=== PATIENT | male | born 1985 ===

== ENCOUNTER 2017-03-15 09:43 | Inpatient (IN) | payer OTHER, SELFPAY ==
[2017-03-15 11:13] LABS: POTASSIUM 4.6 mmol/L (3.6-5.2)
[2017-03-15 11:14] LABS: BASO # 0.1 K/uL (0.0-0.2); BASO % 0.5 % (0.0-2.0); HEMATOCRIT 38.7 % (35.0-51.0); LYMPH # 3.5 K/uL (1.0-4.3); LYMPH % 21.7 % (20.0-40.0); MEAN CELL VOLUME 89.2 fL (80.0-94.0); MEAN CORPUSCULAR HEMOGLOBIN 29.5 pg (27.0-31.0); MEAN CORPUSCULAR HGB CONC 33.1 g/dL (33.0-37.0); MEAN PLATELET VOLUME 11.7 fL (7.2-11.7); MONO # 0.6 K/uL (0.0-0.8); MONO % 3.9 % (0.0-10.0); NRBC % 0.1 % (0.0-2.0); RED CELL DISTRIBUTION WIDTH 15.7 % (11.5-14.5)
[2017-03-15 11:15] LABS: ALB/GLOB RATIO 1.4 (1.0-2.1); BILIRUBIN,TOTAL 0.9 mg/dL (0.2-1.3); TOTAL PROTEIN 7.5 g/dL (6.3-8.3)
[2017-03-15 11:16] LABS: CALCIUM 9.6 mg/dl (8.6-10.4)
[2017-03-15 11:27] LABS: TROPONIN I 0.017 ng/mL (0.00-0.120)
--- NOTE | 2017-03-15 12:22 | CT ---
PROCEDURE: CT HEAD WITHOUT CONTRAST. HISTORY: R/O Bleed COMPARISON: Noncontrast head CT performed 10/04/16 TECHNIQUE: Axial computed tomography images were obtained through the head/brain without intravenous contrast. Radiation dose: Total exam DLP = 971.69 mGy-cm. This CT exam was performed using one or more of the following dose reduction techniques: Automated exposure control, adjustment of the mA and/or kV according to patient size, and/or use of iterative reconstruction technique. FINDINGS: Mild streak artifact obscures evaluation of the skullbase. HEMORRHAGE: No intracranial hemorrhage. BRAIN: Generalized atrophy. No mass effect or edema. Nonspecific white matter hypodensities noted within the right parietal lobe. Please note that MRI with diffusion imaging is more sensitive in the detection of acute ischemic event. VENTRICLES: No hydrocephalus. CALVARIUM: Unremarkable. PARANASAL SINUSES: Unremarkable as visualized. No significant inflammatory changes. MASTOID AIR CELLS: Unremarkable as visualized. No inflammatory changes. OTHER FINDINGS: None. IMPRESSION: Generalized atrophy. Nonspecific white matter hypodensities re-identified within the right parietal lobe.
[2017-03-15] MEDS ORDERED: Labetalol 25mg/5ml Syringe IVP STA (13:33)
[2017-03-15] MEDS ORDERED: Labetalol 25mg/5ml Syringe ONE (13:37)
[2017-03-15] MEDS ORDERED: Nitroglycerin 50mg in D5W 50 MG/250 ML BOTTLE IV ONE (13:58)
--- NOTE | 2017-03-15 13:58 | C.PDOC ---
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 Patient also has a hearing impediment. Patient is cared for in the clinic and by Dr. Benites for hematology. Patient has thrombocytopenia and refractory hypertension. He states he has a severe headache, rating it as 10/10. Patient admits he is intermittently compliant with his medications. Patient is a poor historian. He has been admitted to the ICU previously. He had a kidney biopsy and hemorrhage into the kidney. He has renal insufficiency and is pending hemodialysis. Patient denies neck pain, chest pain, shortness of breath, diarrhea, fever, chills, or abdominal pain. Time Seen by Provider: 03/15/17 10:39 Chief Complaint (Nursing): Abdominal Pain History Per: Patient History/Exam Limitations: no limitations Onset/Duration Of Symptoms: Days (last night) Current Symptoms Are (Timing): Still Present Severity: Severe Pain Scale Rating Of: 10 Quality: "Pain" Associated Symptoms: Blurred Vision, Nausea, Vomiting Recent travel outside of the [place]: No Additional History Per: Prior Records Past Medical History Reviewed: Historical Data, Nursing Documentation, Vital Signs Vital Signs: Last Vital Signs Temp 98 F 03/15/17 09:56 Pulse 73 03/15/17 13:44 Resp 20 03/15/17 13:44 BP 175/109 H 03/15/17 13:44 Pulse Ox 100 03/15/17 14:33 - Medical History PMH: HTN - [facility] Procedures INJECT/INFUSE NEC (12/01/14) Family History: States: Unknown Family Hx - Social History Hx Alcohol Use: No Hx Substance Use: No - Immunization History Hx Tetanus Toxoid Vaccination: No Hx Influenza Vaccination: No Hx Pneumococcal Vaccination: No Review Of Systems Except As Marked, All Systems Reviewed And Found Negative. Constitutional: Negative for: Fever, Chills Eyes: Positive for: Vision Change (blurry) Cardiovascular: Negative for: Chest Pain Gastrointestinal: Positive for: Nausea, Vomiting. Negative for: Abdominal Pain , Diarrhea Musculoskeletal: Negative for: Neck Pain Neurological: Positive for: Headache Physical Exam - Physical Exam Appears: Chronically Ill, Other (bloated) Skin: Other (flushed ) Head: Normacephalic Eye(s): bilateral: Other (decreasing vision, conjunctival injection) Ear(s): Left: Other (hearing aid) Nose: Normal Tongue: Normal Appearing Lips: Normal Appearing Gingiva: Bleeding Throat: Normal Neck: Normal ROM, Supple Chest: Symmetrical Cardiovascular: Rhythm Regular Respiratory: Normal Breath Sounds, No Accessory Muscle Use, No Rales, No Rhonchi , No Wheezing Gastrointestinal/Abdominal: Soft, No Tenderness, No Guarding, No Rebound Back: Normal Inspection, No CVA Tenderness Extremity: Normal ROM Neurological/Psych: Oriented x3 ED Course And Treatment - Laboratory Results Result Diagrams: 03/15/17 10:58 03/15/17 10:58 ECG: Interpreted By Me, Viewed By Me ECG Rhythm: Sinus Rhythm ECG Interpretation: Normal Interpretation Of ECG: No ST elevations or depressions Rate From EC (bpm) O2 Sat by Pulse Oximetry: 100 (room air) Pulse Ox Interpretation: Normal - CT Scan/US Head CT Other Rad Studies (CT/US): Read By Radiologist (Dr. Martinez, Estefany Cuellar MD), Radiology Report Reviewed CT/US Interpretation: PROCEDURE: CT HEAD WITHOUT CONTRAST. HISTORY: R/O Bleed. COMPARISON: Noncontrast head CT performed 10/04/16. TECHNIQUE: Axial computed tomography images were obtained through the head/brain without intravenous contrast. Radiation dose: Total exam DLP = 971.69 mGy-cm. This CT exam was performed using one or more of the following dose reduction techniques: Automated exposure control, adjustment of the mA and/or kV according to patient size, and/or use of iterative reconstruction technique. FINDINGS: Mild streak artifact obscures evaluation of the skullbase. HEMORRHAGE: No intracranial hemorrhage. BRAIN: Generalized atrophy. No mass effect or edema. Nonspecific white matter hypodensities noted within the right parietal lobe. Please note that MRI with diffusion imaging is more sensitive in the detection of acute ischemic event. VENTRICLES: No hydrocephalus. CALVARIUM: Unremarkable. PARANASAL SINUSES: Unremarkable as visualized. No significant inflammatory changes. MASTOID AIR CELLS: Unremarkable as visualized. No inflammatory changes. OTHER FINDINGS: None. IMPRESSION: Generalized atrophy. Nonspecific white matter hypodensities re-identified within the right parietal lobe. Progress Note: Plan: -Head CT. -EKG. -Labs. -Hydralazine, Norvasc, Trandate , Zofran. Platelet count is 10. Patient has hypertension urgency. Case discussed with Hospitalist and ICU for patient admission. Disposition Discussed With Dr.: Pablo Venegas Counseled Patient/Family Regarding: Studies Performed, Diagnosis - Disposition Disposition: HOSPITALIZED Disposition Time: 14:00 Condition: CRITICAL - Clinical Impression Clinical Impression: Hypertensive emergency, Other primary thrombocytopenia, Hemolytic uremic syndrome - Scribe Statement The provider has reviewed the documentation as recorded by the Bostonibwil Valle Provider Attestation: All medical record entries made by the [place]ibwil were at my direction and personally dictated by me. I have reviewed the chart and agree that the record accurately reflects my personal performance of the history, physical exam, medical decision making, and the department course for this patient. I have also personally directed, reviewed, and agree with the discharge instructions and disposition. Decision To Admit - Pt Status Changed To: Hospital Disposition Of: Inpatient - Admit Certification Admit to Inpatient:: After my assessment, the patient will require hospitalization for at least two midnights. This is because of the severity of symptoms shown, intensity of services needed, and/or the medical risk in this patient being treated as an outpatient. - InPatient: Physician Admission Certification: I certify that this patient requires 2 or more midnights of care for the following reason:: critical patient - . Bed Request Type: ICU Patient Diagnosis: Hypertensive emergency, Other primary thrombocytopenia, Hemolytic uremic syndrome
[2017-03-15] MEDS ORDERED: MethylPREDNISolone 40 mg Vial IVP SCH ×2 (14:00→20:00)
--- NOTE | 2017-03-15 14:10 | CP.PCM.HP ---
History of Present Illness - History of Present Illness History of Present Illness: This is a 31 year old male who is well known to the hospitalist service from a previous admission on 10/02/2016 and then discharged on 11/01/2016. During that time he was admitted after being found on the ground by co-wokers. He was confused, reporting difficulty seeing with difficulty seeing as well as easy nose and mouth bleeding. At that time his platelet count was found to be only 10 and he was in and out of the ICU here at [facility]. 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 C-anca was negative. HIV, MAGDI, rheumatoid panel and complement studies were also negative. Patient was transfused multiple times with platelets. Patient's platelets went as low as 5 over hospital stay. No improvement with steroids. Patient was started on Ecluzimab (Soloris) on 10/26 per clinical trial and has been on this medication since then - it is a once a week medication given under the approval of the hospital due to the cost. He has been following up with the [facility] as well as with Hematology Oncology Further more the patient had ongoing worsening renal function particularly after 10/16 and a renal biopsy was done after the patient had multiple platelet transfusions. He did well the following few days however after he had a precipitous drop in the platelet count again he developed abdominal pain and had a large retroperitoneal hemorrhage around the left kidney. Because of the heavy bleeding requiring many PRBCs ultimately he had to have a left renal angiogram with embolization of left kidney. There was discussion of giving the patient HD due to the worsening renal function however because of the chronically low platelet counts this was deferred. 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 Today 03/15 he returns with the CC of difficulty seeing, headache as well as bleeding gums. He is not alter mental status as he was from before. However his blood pressure is very elevated with a systolic of 190 and having headache and blurry vision. He has already been given several rounds of hydralazine IV 10mg as well as norasvc 10 and labatelol 20mg IVP x 1. He again has a plateletcount of 10. He has minimal bleeding in his mouth. He does not have any rash or petechia. We discussed about transferring the patient to another hospital since his situation has not improved even with the Ecluzimab and his renal function is worsening with a creatine of 5.0. After my discussion with multiple physicians we agreed to admit here. I am going to give large doses of solumedrol as well as give DDAVP now and also platelets now. He denied chest pain, denied palpitations, denied abdominal or flank pain (last time had a large renal bleed and severe pain) He reported + blurry vision, + headache, + blood in mouth, + easy bruising + blood in urine + intermitent fevers. He doesn't know if he has blood in stools or not. Medications: Soliris transfusion once a week Coreg 25mg by mouth twice a day Norvasc 10mg by mouth once a day Phoslo 1334mg by mouth three times a day with food Colace 100mg by mouth twice a day Pepcid 20mg by mouth once a day Hydralazine 50mg by mouth every 6 hours Surgical: Present on Admission - Present on Admission Any Indicators Present on Admission: Yes History of DVT/PE: No History of Uncontrolled Diabetes: No Urinary Catheter: No Decubitus Ulcer Present: No Review of Systems - Constitutional Constitutional: Fatigue, Headache, Weakness - EENT Eyes: Blurred Vision, Change in Vision Ears: Decreased Hearing - Respiratory Respiratory: Cough. absent: Dyspnea, Hemoptysis - Gastrointestinal Gastrointestinal: absent: Abdominal Pain, Belching, Bloating - Genitourinary Genitourinary: Hematuria - Musculoskeletal Musculoskeletal: As Per HPI, Muscle Weakness - Integumentary Integumentary: Bleeding Lesions - Neurological Neurological: Abnormal Hearing, Headaches - Psychiatric Psychiatric: Hopelessness - Hematologic/Lymphatic Hematologic: As Per HPI, Easy Bleeding, Easy Bruising Past Patient History - Infectious Disease Hx of Infectious Diseases: None - Past Social History Smoking Status: Never Smoked - CARDIAC Hx Hypertension: Yes - HEENT Other/Comment: HEARING IMPAIRED - RENAL Other/Comment: renal disease - HEMATOLOGICAL/ONCOLOGICAL Other/Comment: Thrombocytopenia - PSYCHIATRIC Hx Substance Use: No - SURGICAL HISTORY Hx Surgeries: Yes Hx Splenectomy: Yes (AT 4 YEARS OF AGE) - ANESTHESIA Hx Anesthesia: Yes Hx Anesthesia Reactions: No Meds Allergies/Adverse Reactions: Allergies Allergy/AdvReac Type Severity Reaction Status Date / Time No Known Allergies Allergy Verified 12/01/14 07:25 Physical Exam - Constitutional Appears: Chronically Ill - Head Exam Additional comments: Bleeding in gums, he also looks very depressed, tired, exahusted - Eye Exam Eye Exam: Normal appearance - ENT Exam ENT Exam: Mucous Membranes Moist - Neck Exam Neck exam: Positive for: Normal Inspection - Respiratory Exam Respiratory Exam: Decreased Breath Sounds, Clear to Auscultation Bilateral - Cardiovascular Exam Cardiovascular Exam: REGULAR RHYTHM - GI/Abdominal Exam GI & Abdominal Exam: Normal Bowel Sounds, Soft. absent: Diminished Bowel Sounds , Distended, Firm, Guarding - Exam Exam: NORMAL INSPECTION - Back Exam Back exam: NORMAL INSPECTION. absent: CVA tenderness (L), CVA tenderness (R), paraspinal tenderness, rash noted - Neurological Exam Neurological exam: Alert, CN II-XII Intact, Oriented x3 - Psychiatric Exam Psychiatric exam: Anxious, Depressed - Skin Skin Exam: Normal Color, Warm Results - Vital Signs Recent Vital Signs: Last Vital Signs Temp 98 F 03/15/17 09:56 Pulse 73 03/15/17 13:44 Resp 20 03/15/17 13:44 BP 175/109 H 03/15/17 13:44 Pulse Ox 100 03/15/17 14:02 - Labs Result Diagrams: 03/15/17 10:58 03/15/17 10:58 Labs: Laboratory Results - last 24 hr 03/15/17 03/15/17 10:58 10:58 WBC 16.0 H RBC 4.34 L Hgb 12.8 Hct 38.7 MCV 89.2 MCH 29.5 MCHC 33.1 RDW 15.7 H Plt Count 10 L* MPV 11.7 Neut % (Auto) 73.9 Lymph % (Auto) 21.7 [place] % (Auto) 3.9 Eos % (Auto) 0.0 Baso % (Auto) 0.5 Neut # 11.8 H Lymph # 3.5 [place] # 0.6 Eos # 0.0 Baso # 0.1 Differential Comment Sodium 143 Potassium 4.6 Chloride 109 H Carbon Dioxide 18 L Anion Gap 21 H BUN 49 H Creatinine 5.0 H Est GFR ( Amer) 16 Est GFR (Non-Af Amer) 14 Random Glucose 118 H Calcium 9.6 Total Bilirubin 0.9 AST 25 ALT 39 Alkaline Phosphatase 146 H Troponin I 0.0170 Total Protein 7.5 Albumin 4.4 Globulin 3.1 Albumin/Globulin Ratio 1.4 Lipase 160 Assessment & Plan - Assessment and Plan (Free Text) Assessment: Assessment: Atypical HUS or Alport Syndrome 5/2: As mentioned before he gets weekly infusions of Eculizumab (soliris) per discussion with ER and pharmacy that medication is already at pharmacy as he is due to get this medication tommorow. Per my discussion with hematology there is some question with reguards to the resposiveness of the medication as his platelet count is still severely low - he has easy bleeding. Will give solumedrol IVP 125 x1 now and then 40 TID. Also DDAVP x 1 now. Because platelets are low transfusing 2 now but it will take several hours before it can come. As per Dr. 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 Pt consented to atypical HUS treatment with eculizumab; medication assistance paperwork faxed.Peripheral smear shows schistocytes, LDH was elevated, and pt presented with HTN emergency Immune studies: HIV, MAGDI, Rheumatoid panel, complement studies negative C-anca negative HTN Urgency 5/2: Very elevated in the ER and recived several hydralazine and labelatol and then noravc. Systolics are 190s and then decreased to 170s. CT scan of the head was negative. Monitor in ICU, might need a continuous drip Norvasc 10 mg po qd Coreg 25 mg po bid Hydralazine 25 mg po TID History of renal hematoa after biopsy 52: He tells us he does not have abdominal pain and no pain on exam of abdomen or flank area Platelet count is low - so if he does have pain will get a stat CT. As mentioned before he had an embolization. History of Pleural Effusion: 52: Currently NOT short of breath, however previous admision was an issue. Will check Nephrotic Kidney Disease 5/2: Renal function is worsening. Creatine is up to 5. It would be difficult to give HD due to such a low plaetelcount. Transfusing right now. 24 hour urine protein 37325, very elevated Floor Worker, Dr. Villasenor, consulted. Help appreciated. 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
[2017-03-15] MEDS ORDERED: Piperacillin/Tazobact 3.375 gm 0 ML IVPB ONE (14:20)
[2017-03-15] MEDS ORDERED: Piperacill/Tazo 2.25gm in Dex 2.25 GM/50 ML BAG IVPB SCH (15:00)
--- NOTE | 2017-03-15 16:06 | CP.PCM.CON ---
Addendum entered and electronically signed by Marcel Nelson DO 03/15/17 18:22: Per Dr. Benites, pt can receive Solaris tomorrow, which is his scheduled day for transfusion anyway. Original Note: <Marcel Nelson - Last Filed: 03/15/17 18:20> History of Present Illness - History of Present Illness History of Present Illness: ICU consult note for patrol officer, Dr. 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 He reports headache began yesterday, and took 2 advil with no relief. He states the pain is 10/10, located at the back of his head, and is bilateral, that comes and "sits under his eyes." Pt reports headache has worsened 'since midnight' and he has vomited , non-bilous, non-bloody emesis, multiple times. Pt admits taking Norvasc, Coreg , and Hydralazine as home medications. Pt was hypertensive on presentation to the ED, with SBP in the 190s, and was given Hydralazine IV 10mg, Norasvc 10mg, and Labatelol 20mg IVP x 1. Pt also reports blood in his mouth this AM, after lightly brushing his teeth. He denies hematemesis, hematochezia, but admits one episode of hematuria this AM. Platelets are 10 on arrival. Creatinine found to be 5. He has renal insufficiency and is pending hemodialysis. Patient denies neck pain, chest pain, shortness of breath, diarrhea, fever, chills, or abdominal pain. (adapted from hospitalist Dr. Lillian cobos, who knew pt well from prior admission) Pt had previous admission from 10/02/2016 to 11/01/2016, where pt was discovered to be extremely thrombocytopenic (platelets of < 10k). On 10/02 was admitted after being found on the ground by co-workers. He was confused, reporting difficulty seeing with difficulty seeing as well as easy nose and mouth bleeding and was admitted to ICU. 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 Patient was transfused multiple times with platelets, and started on Ecluzimab (Soloris), which helped improved his platelet count. He been on Solaris since his admission and has followed up in the clinic as well as with child welfare consultant, Dr. Benites. During his course, pts renal function worsened particularly and renal biopsy was performed. Biopsy suggests HUS vs Alport disease. Pt had a precipitous drop in the platelet count again and developed abdominal pain. CT showed large retroperitoneal hemorrhage around the left kidney. Because of the heavy bleeding, requiring many PRBCs, ultimately he had to have a left renal angiogram with embolization of left kidney. There was discussion of giving the patient HD due to the worsening renal function however because of the chronically low platelet counts this was deferred. PMD: Franky ([facility]) PMHx: see above Meds: Soliris transfusion once a week, Coreg 25mg by mouth twice a day, Norvasc 10mg by mouth once a day, Phoslo 1334mg by mouth three times a day with food, Colace 100mg by mouth twice a day, Pepcid 20mg by mouth once a day, Hydralazine 50mg by mouth every 6 hours PSHx: splenectomy (age 4) Social: Smokes tobacco 1 pack over three days. Drinks alcohol socially. Denies drug use. 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 Review of Systems - Constitutional Constitutional: Fatigue, Lethargy. absent: Chills, Fever, Weight Gain, Weight Loss - EENT Eyes: Blurred Vision Ears: absent: Ear Discharge Nose/Mouth/Throat: absent: Nasal Congestion, Sore Throat - Cardiovascular Cardiovascular: absent: Chest Pain, Dyspnea, Palpitations - Respiratory Respiratory: Cough. absent: Dyspnea, Hemoptysis, Dyspnea on Exertion - Gastrointestinal Gastrointestinal: Nausea, Vomiting. absent: Abdominal Pain - Genitourinary Genitourinary: absent: Dysuria, Hematuria - Musculoskeletal Musculoskeletal: Muscle Weakness - Neurological Neurological: Abnormal Hearing, Headaches - Psychiatric Psychiatric: Depression - Hematologic/Lymphatic Hematologic: Easy Bleeding, Easy Bruising Past Patient History - Infectious Disease Hx of Infectious Diseases: None - Past Social History Smoking Status: Never Smoked - CARDIAC Hx Hypertension: Yes - HEENT Other/Comment: HEARING IMPAIRED - RENAL Other/Comment: renal disease - HEMATOLOGICAL/ONCOLOGICAL Other/Comment: Thrombocytopenia - PSYCHIATRIC Hx Substance Use: No - SURGICAL HISTORY Hx Surgeries: Yes Hx Splenectomy: Yes (AT 4 YEARS OF AGE) - ANESTHESIA Hx Anesthesia: Yes Hx Anesthesia Reactions: No Meds Allergies/Adverse Reactions: Allergies Allergy/AdvReac Type Severity Reaction Status Date / Time No Known Allergies Allergy Unknown none Verified 03/15/17 17:01 - Medications Medications: Current Medications Carvedilol (Coreg) 12.5 mg PO BID [facility] Famotidine (Pepcid) 20 mg PO BID [facility] Hydralazine HCl (Apresoline) 25 mg PO TID [facility] Nitroglycerin/Dextrose (Nitroglycerin 50 Mg/250 Ml D5w) 50 mg in 250 mls @ 1.5 mls/hr IV .Q24H ONE PRN Reason: 5 MCG/MIN Stop: 03/16/17 13:57 Last Admin: 03/15/17 14:43 Dose: 1.5 mls/hr Piperacillin Sod/Tazobactam Sod (Zosyn 2.25 Gm Iv Premix) 2.25 gm in 50 mls @ 100 mls/hr IVPB Q8H [facility] Last Admin: 03/15/17 15:26 Dose: 100 mls/hr Methylprednisolone (Solu-Medrol) 40 mg IVP Q6H [facility] Physical Exam - Constitutional Appears: No Acute Distress, Chronically Ill - Head Exam Head Exam: ATRAUMATIC, NORMAL INSPECTION, NORMOCEPHALIC - Eye Exam Eye Exam: EOMI Pupil Exam: PERRL - ENT Exam ENT Exam: Mucous Membranes Moist Additional comments: bleeding in gums - Neck Exam Neck exam: Positive for: Normal Inspection - Respiratory Exam Respiratory Exam: Decreased Breath Sounds, Clear to Auscultation Bilateral - Cardiovascular Exam Cardiovascular Exam: REGULAR RHYTHM, +S1, +S2 - GI/Abdominal Exam GI & Abdominal Exam: Normal Bowel Sounds, Soft. absent: Tenderness Results - Vital Signs Recent Vital Signs: Last Vital Signs Temp 97.5 F L 03/15/17 15:27 Pulse 102 H 03/15/17 15:27 Resp 15 03/15/17 15:27 BP 177/115 H 03/15/17 15:40 Pulse Ox 99 03/15/17 15:27 - Labs Result Diagrams: 03/15/17 10:58 03/15/17 10:58 Labs: Laboratory Results - last 24 hr 03/15/17 14:11 Blood Type O POSITIVE Antibody Screen Negative Assessment & Plan - Assessment and Plan (Free Text) Assessment: 31 M with PMHx of Alport vs HUS, HTN, unresponsive thrombocytopenia, presenting with headache, HTN emergency, thrombocytopenia. Plan: Pt status: Admit to ICU Neuro: AAOx3 CT Head (03/15/17): Generalized atrophy. Nonspecific white matter hypodensities within the right parietal lobe. (see full report) CV: HTN Emergency SBP 230 in ED, now well controlled - Nitro drip - Coreg 12.5 mg PO BID - Apresoline 25mg PO TID /Renal: Atypical HUS Platelet count 10k today - 2 units of platelets transfused Received Eculizumab (solaris) 3 days ago Given Solumedrol 125mg once in ED, 60mg IV TID DDAVP x [address] Dr[address] 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 Pt consented to atypical HUS treatment with eculizumab - No clinical indication for steroids - H/H currently stable - from previous admission: Bone Marrow biopsy no evidence of myelodysplastic or myeloproliferative syndrome. Peripheral smear shows schistocytes. Immune studies : HIV, MAGDI, Rheumatoid panel, complement studies negative. C-anca negative. Hx of Abnormal renal biopsy Left renal Biopsy (10/19): reports consistent with atypical HUS IR, Dr. Dorado, performed left renal angiogram with embolization of left kidney Nephrotic Kidney Disease On admission, Bun/Cr: 49/5 Remediation Project Engineer, Dr. iVllasenor, consulted. Help appreciated. - f/u reccs Pulm: O2 sat: 99% on rm Air Breathing without difficulty GI: Nausea/Vomiting -non-bilious, non-bloody Zofran 4mg IV Q6H PRN Alk phos elevated, monitor Hem/Onc: Dr. 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 Pt consented to atypical HUS treatment with eculizumab. - H/H currently stable - from previous admission: Bone Marrow biopsy no evidence of myelodysplastic or myeloproliferative syndrome. Peripheral smear shows schistocytes. Immune studies : HIV, MAGDI, Rheumatoid panel, complement studies negative. C-anca negative. Prophylactic Measures: Pepcid 20 mg po bid Anticoagulation contraindicated due to thrombocytopenia SCDs <Theo,Pablo - Last Filed: 03/15/17 19:16> Meds - Medications Medications: Current Medications Carvedilol (Coreg) 12.5 mg PO BID [facility] Last Admin: 03/15/17 17:30 Dose: 12.5 mg Famotidine (Pepcid) 20 mg PO BID [facility] Last Admin: 03/15/17 19:02 Dose: 20 mg Hydralazine HCl (Apresoline) 25 mg PO TID [facility] Last Admin: 03/15/17 17:30 Dose: 25 mg Nitroglycerin/Dextrose (Nitroglycerin 50 Mg/250 Ml D5w) 50 mg in 250 mls @ 1.5 mls/hr IV .Q24H ONE; 5 MCG/MIN PRN Reason: Protocol Stop: 03/16/17 13:57 Last Titration: 03/15/17 19:00 Dose: 60 mcg/min, 18 mls/hr Methylprednisolone (Solu-Medrol) 60 mg IVP Q6 [facility] Ondansetron HCl (Zofran Inj) 4 mg IVP Q6H PRN PRN Reason: Nausea/Vomiting Last Admin: 03/15/17 17:27 Dose: 4 mg Results - Vital Signs Recent Vital Signs: Last Vital Signs Temp 97.5 F L 03/15/17 15:45 Pulse 96 H 03/15/17 17:00 Resp 16 03/15/17 17:00 BP 157/103 H 03/15/17 17:30 Pulse Ox 98 03/15/17 17:00 - Labs Result Diagrams: 03/15/17 10:58 03/15/17 10:58 Labs: Laboratory Results - last 24 hr 03/15/17 14:11 Blood Type O POSITIVE Antibody Screen Negative Attending/Attestation - Attestation I have personally seen and examined this patient.: Yes I have fully participated in the care of the patient.: Yes I have reviewed all pertinent clinical information: Yes Notes (Text): 03/15/17 19:16 Patient is severe thrombocytopenia hypertension. Admitted with a uncontrolled hypertension on nitroglycerin drip. Plan discussed
[2017-03-15] MEDS: Nitroglycerin 50mg in D5W 50 MG/250 ML BOTTLE IV ONE (17:00)
--- NOTE | 2017-03-15 19:41 | CP.PCM.CON ---
History of Present Illness - History of Present Illness History of Present Illness: 31 year old male with a history of atypical HUS on eculizumab since 10/2016, presenting with headache, found to have hypertensive urgency. The patient has had an extensive work up pertaining to his thrombocytopenia, anemia, and renal failure. 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 His kidney biopsy was complicated by hemorrhage and need for IR embolization. A bone marrow biopsy revealed normocellular marrow with megakaryocytic hyperplasia consistent with peripheral destruction. Plasma exchange was performed at the time with no improvement in thrombocytopenia or microangiopathic hemolysis. [id number] level returned normal and the patient was felt to have atypical HUS. He was started on eculizumab with variability in his renal function from a cr of 3-5. His platelet count remained severely low and has ranged around 10,000. Most recently he reports to increasing headache which he has been taking Advil for. He does admit to intermittent gum bleeding but no other abnormal bleeding or bruising. Past medical history: ?atypical HUS Past surgical history: None Family history: Denies known hematologic and oncologic problems Social history: Denies tobacco, alcohol, and illicit drug use. Allergies: NKA Review of systems: All remaining review of systems including HEENT, cardiovascular, respiratory, gastrointestinal, genitourinary, musculoskeletal, dermatologic, neurologic, and psychiatric are negative unless mentioned in the HPI. Past Patient History - Infectious Disease Hx of Infectious Diseases: None - Past Social History Smoking Status: Never Smoked - CARDIAC Hx Hypertension: Yes - HEENT Other/Comment: HEARING IMPAIRED - RENAL Other/Comment: renal disease - HEMATOLOGICAL/ONCOLOGICAL Other/Comment: Thrombocytopenia - MUSCULOSKELETAL/RHEUMATOLOGICAL Hx Falls: No - PSYCHIATRIC Hx Substance Use: No - SURGICAL HISTORY Hx Surgeries: Yes Hx Splenectomy: Yes (AT 4 YEARS OF AGE) - ANESTHESIA Hx Anesthesia: Yes Hx Anesthesia Reactions: No Meds Allergies/Adverse Reactions: Allergies Allergy/AdvReac Type Severity Reaction Status Date / Time No Known Allergies Allergy Unknown none Verified 03/15/17 17:01 - Medications Medications: Current Medications Carvedilol (Coreg) 12.5 mg PO BID [facility] Last Admin: 03/15/17 17:30 Dose: 12.5 mg Famotidine (Pepcid) 20 mg PO BID [facility] Last Admin: 03/15/17 19:02 Dose: 20 mg Hydralazine HCl (Apresoline) 25 mg PO TID [facility] Last Admin: 03/15/17 17:30 Dose: 25 mg Nitroglycerin/Dextrose (Nitroglycerin 50 Mg/250 Ml D5w) 50 mg in 250 mls @ 1.5 mls/hr IV .Q24H ONE; 5 MCG/MIN PRN Reason: Protocol Stop: 03/16/17 13:57 Last Titration: 03/15/17 19:00 Dose: 60 mcg/min, 18 mls/hr Methylprednisolone (Solu-Medrol) 60 mg IVP Q6 [facility] Ondansetron HCl (Zofran Inj) 4 mg IVP Q6H PRN PRN Reason: Nausea/Vomiting Last Admin: 03/15/17 17:27 Dose: 4 mg Physical Exam - Head Exam Head Exam: ATRAUMATIC - Eye Exam Eye Exam: Normal appearance - ENT Exam ENT Exam: Mucous Membranes Dry - Respiratory Exam Respiratory Exam: NORMAL BREATHING PATTERN - Cardiovascular Exam Cardiovascular Exam: +S1, +S2 - GI/Abdominal Exam GI & Abdominal Exam: Normal Bowel Sounds - Extremities Exam Extremities exam: Positive for: normal inspection - Neurological Exam Neurological exam: Oriented x3 - Psychiatric Exam Psychiatric exam: Normal Affect, Normal Mood - Skin Skin Exam: Warm Results - Vital Signs Recent Vital Signs: Last Vital Signs Temp 97.5 F L 03/15/17 15:45 Pulse 93 H 03/15/17 19:00 Resp 16 03/15/17 19:00 BP 175/105 H 03/15/17 19:00 Pulse Ox 97 03/15/17 19:00 - Labs Result Diagrams: 03/15/17 10:58 03/15/17 10:58 Labs: Laboratory Results - last 24 hr 03/15/17 14:11 Blood Type O POSITIVE Antibody Screen Negative Assessment & Plan (1) Hemolytic uremic syndrome Assessment and Plan: the patient has been treated with eculizumab without significant improvement in his platelet count or renal function I would like to send further genetic testing for atypical HUS for further evaluation given then lack of response; I will need to reach out to the company to discuss if they allow compassionate testing. other possibilities would include Alports syndrome and MYH9 related diseases; referral to a tertiary center with a counter clerk tractor parts would be ideal with genetic testing At this point, I agree with transfusion support of platelets and DDAVP He has platelet dysfunction from uremia and recent NSAID use. Thank you for this interesting consult. Status: Acute
[2017-03-15] MEDS: MethylPREDNISolone 40 mg Vial IVP SCH (20:00)
[2017-03-16] MEDS: MethylPREDNISolone 40 mg Vial IVP SCH ×5 (00:48→23:34)
[2017-03-16] MEDS: Nitroglycerin 50mg in D5W 50 MG/250 ML BOTTLE IV ONE (06:33)
[2017-03-16 06:48] LABS: RETIC% 1.3 % (0.5-1.5)
[2017-03-16 06:51] LABS: ALB/GLOB RATIO 1.4 (1.0-2.1); BILIRUBIN,TOTAL 0.8 mg/dL (0.2-1.3); PHOSPHOROUS 3.8 mg/dL (2.5-4.5); TOTAL PROTEIN 6.9 g/dL (6.3-8.3)
[2017-03-16 06:52] LABS: CALCIUM 9.3 mg/dl (8.6-10.4); MAGNESIUM 2.4 mg/dL (1.6-2.3)
[2017-03-16 07:00] LABS: INR 1.2
[2017-03-16 07:12] LABS: BASO % 0.2 % (0.0-2.0); HEMATOCRIT 34.1 % (35.0-51.0); LYMPH % 19.3 % (20.0-40.0); MEAN CELL VOLUME 90.6 fL (80.0-94.0); MEAN CORPUSCULAR HEMOGLOBIN 29.4 pg (27.0-31.0); MEAN CORPUSCULAR HGB CONC 32.4 g/dL (33.0-37.0); MEAN PLATELET VOLUME 8.1 fL (7.2-11.7); MONO # 0.5 K/uL (0.0-0.8); MONO % 3.4 % (0.0-10.0); NRBC % 0.1 % (0.0-2.0); RED CELL DISTRIBUTION WIDTH 15.5 % (11.5-14.5); WHITE BLOOD COUNT 15.3 K/uL (4.8-10.8)
[2017-03-16 07:26] LABS: RBC URINE 11 /hpf (0-3); URINE BACTERIA RARE (<OCC); URINE BILIRUBIN NEGATIVE (NEGATIVE); URINE BLOOD 1+ (NEGATIVE); URINE COLOR Yellow (YELLOW); URINE GLUCOSE (UA) NORMAL (Normal); URINE KETONE NEGATIVE (NEGATIVE); URINE LEUKOCYTE ESTERASE NEG Leu/uL (Negative); URINE PROTEIN 3+ mg/dL (NEGATIVE); URINE UROBILINOGEN NORMAL mg/dL (0.2-1.0); WBC URINE 1 /hpf (0-5)
[2017-03-16 07:47] VITALS: BMI 26.5
[2017-03-16 07:58] LABS: FOLATE 11.9 ng/mL
--- NOTE | 2017-03-16 09:21 | CP.PCM.PN ---
Subjective - Date & Time of Evaluation Date of Evaluation: 03/16/17 Time of Evaluation: 09:00 - Subjective Subjective: Patient was seen and examined. He reports headache as well as blurry vision improved a lot - his BP is lower in the 150 to 160 systolic range on nitro ggt at this time. He says he feels better. Last night I gave him large doses of solumedrol as well as DDAVP and also platelets This morning I have to admit that I am surprised the platelet count markos - I need to point out that during the last admission even with platelet transfusions and steroids and also DDAVP his platelet count never responded. Creatine increased a little bit from yesterday. He says he is still urinating for the time being. Objective - Vital Signs/Intake and Output Vital Signs (last 24 hours): Temp Pulse Resp BP Pulse Ox 98 F 82 19 174/98 H 96 03/16/17 04:00 03/16/17 07:00 03/16/17 07:00 03/16/17 07:00 03/16/17 07:00 Intake and Output: 03/16/17 03/16/17 06:59 18:59 Intake Total 431.1 19.5 Output Total 1050 Balance -618.9 19.5 - Medications Medications: Current Medications Carvedilol (Coreg) 12.5 mg PO BID [facility] Last Admin: 03/15/17 17:30 Dose: 12.5 mg Famotidine (Pepcid) 20 mg PO BID [facility] Last Admin: 03/15/17 19:02 Dose: 20 mg Hydralazine HCl (Apresoline) 50 mg PO Q6H [facility] Last Admin: 03/16/17 02:15 Dose: 50 mg Nitroglycerin/Dextrose (Nitroglycerin 50 Mg/250 Ml D5w) 50 mg in 250 mls @ 1.5 mls/hr IV .Q24H ONE; 5 MCG/MIN PRN Reason: Protocol Stop: 03/16/17 13:57 Last Admin: 03/16/17 06:33 Dose: 65 mcg/min, 19.5 mls/hr Methylprednisolone (Solu-Medrol) 60 mg IVP Q6 [facility] Last Admin: 03/16/17 05:07 Dose: 60 mg Ondansetron HCl (Zofran Inj) 4 mg IVP Q6H PRN PRN Reason: Nausea/Vomiting Last Admin: 03/16/17 05:05 Dose: 4 mg - Labs Labs: 03/16/17 06:24 03/16/17 06:27 PT 13.0 SECONDS (9.7-12.2) H 03/16/17 06:24 INR 1.2 03/16/17 06:24 APTT 29 SECONDS (21-34) 03/16/17 06:24 Assessment and Plan - Assessment and Plan (Free Text) Assessment: Atypical HUS or Alport Syndrome 03/16: Today the platelet count increased. Continue with solumedrol and today due for Eculizumab. Continue to monitor. 03/15: As mentioned before he gets weekly infusions of Eculizumab (soliris) per discussion with ER and pharmacy that medication is already at pharmacy as he is due to get this medication tomorrow. Per my discussion with hematology there is some question with regards to the responsiveness of the medication as his platelet count is still severely low - he has easy bleeding. Will give solumedrol IVP 125 x1 now and then 40 TID. Also DDAVP x 1 now. Because platelets are low transfusing 2 now but it will take several hours before it can come. As per Dr. 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 Pt consented to atypical HUS treatment with eculizumab; medication assistance paperwork faxed.Peripheral smear shows schistocytes, LDH was elevated, and pt presented with HTN emergency Immune studies: HIV, MAGDI, Rheumatoid panel, complement studies negative C-anca negative HTN Urgency 03/16: Systolic BP lower today with nitro ggt, however ultimately he probably needs dialysis - however this will be difficult given his low platelets 2: Very elevated in the ER and recived several hydralazine and labelatol and then noravc. Systolics are 190s and then decreased to 170s. CT scan of the head was negative. Monitor in ICU, might need a continuous drip Norvasc 10 mg po qd Coreg 25 mg po bid Hydralazine 25 mg po TID History of renal hematoa after biopsy 3: No abdominal or flank pain today 52: He tells us he does not have abdominal pain and no pain on exam of abdomen or flank area Platelet count is low - so if he does have pain will get a stat CT. As mentioned before he had an embolization. History of Pleural Effusion: 03/15: Currently NOT short of breath, however previous admision was an issue. Will check Nephrotic Kidney Disease 03/15: Renal function is worsening. Creatine is up to 5. It would be difficult to give HD due to such a low plaetelcount. Transfusing right now. 24 hour urine protein [id number], very elevated Clothes Model, Dr. Villasenor, consulted. Help appreciated. 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
--- NOTE | 2017-03-16 10:37 | CP.CCUPN ---
Addendum entered and electronically signed by Marcel Nelson DO 03/16/17 16:42: Pt NPO after midnight for Permacath placement Addendum entered and electronically signed by Marcel Nelson DO 03/16/17 11:08: addition to /Renal plan: - consult Dr. Quach for permacath placement Original Note: <Marcel Nelson - Last Filed: 03/16/17 11:01> CCU Subjective - Physician Review Subjective (Free Text): 03/16/17 10:29 Pt seen and examined at bedside. Pt reports great improvement in headache and blurry vision overnight. Pt on nitro drip which has improved pressure control. After large doses of solumedrol, DDAVP, and two units of platelets, his platelet count increased to 47k. Pts creatinine is rising, 5.3 this AM, and will need dialysis in near future. Will consult general surgery for permacath placement. Pt c/o of n/v this AM, but denies headache, chest pain, abdominal pain, SOB. Critical Care Time Spent (in minutes): 45 CCU Objective - Vital Signs / Intake & Output Vital Signs (Last 4 hours): Vital Signs Pulse Resp BP Pulse Ox 03/16/17 10:02 160/106 H 03/16/17 07:00 82 19 174/98 H 96 03/16/17 06:33 83 18 168/101 H 97 Intake and Output (Last 8hrs): Intake & Output 03/15/17 03/16/17 03/16/17 22:59 06:59 14:59 Intake Total 704.2 173.4 19.5 Output Total 500 750 Balance 204.2 -576.6 19.5 Weight 177 lb 4.026 oz Intake: IV 64.5 19.2 Intake, IV Amount 189.7 154.2 19.5 Left Hand 50 Right Antecubital 89.7 154.2 19.5 Right Hand 50 Oral 450 Output: Urine 300 450 Urine, Voided 300 450 Emesis 200 300 - Physical Exam Head: Positive for: Atraumatic, Normocephalic Pupils: Positive for: PERRL Extroacular Muscles: Positive for: EOMI Conjunctiva: Positive for: Normal Ears: Positive for: Other (pt with hearing aid in left ear) Mouth: Positive for: Moist Mucous Membranes Respiratory/Chest: Positive for: Clear to Auscultation, Good Air Exchange. Negative for: Respiratory Distress, Accessory Muscle Use Cardiovascular: Positive for: Regular Rate and Rhythm, Normal S1, S2 Abdomen: Positive for: Normal Bowel Sounds. Negative for: Tenderness, Distention Neurological: Positive for: GCS=15, CN II-XII Intact, Speech Normal Skin: Positive for: Warm, Dry Psychiatric: Positive for: Alert, Oriented x 3 - Medications Active Medications: Active Medications Generic Name Dose Route Start Last Admin Trade Name Freq PRN Reason Stop Dose Admin Carvedilol 12.5 mg 03/15/17 18:00 03/16/17 10:02 Coreg PO 12.5 mg BID GUILLE Administration Famotidine 20 mg 03/15/17 18:00 03/16/17 10:02 Pepcid PO 20 mg BID GUILLE Administration Hydralazine HCl 50 mg 03/15/17 21:00 03/16/17 10:02 Apresoline PO 50 mg Q6H GUILLE Administration Nitroglycerin/Dextrose 50 mg in 250 mls @ 1.5 mls/hr 03/15/17 16:57 03/16/17 06:33 Nitroglycerin 50 Mg/250 Ml D5w IV 03/16/17 13:57 65 mcg/min .Q24H ONE 19.5 mls/hr Protocol Administration 5 MCG/MIN Methylprednisolone 60 mg 03/15/17 20:00 03/16/17 05:07 Solu-Medrol IVP 60 mg Q6 GUILLE Administration Ondansetron HCl 4 mg 03/15/17 17:19 03/16/17 05:05 Zofran Inj IVP 4 mg Q6H PRN Administration Nausea/Vomiting - Patient Studies Lab Studies: Lab Studies 03/16/17 03/16/17 03/16/17 Range/Units 06:27 06:24 06:24 WBC 15.3 H (4.8-10.8) K/uL RBC 3.77 L (4.40-5.90) Mil/uL Hgb 11.1 L (12.0-18.0) g/dL Hct 34.1 L (35.0-51.0) % MCV 90.6 (80.0-94.0) fL MCH 29.4 (27.0-31.0) pg MCHC 32.4 L (33.0-37.0) g/dL RDW 15.5 H (11.5-14.5) % Plt Count 47 L D (130-400) K/uL MPV 8.1 (7.2-11.7) fL Neut % (Auto) 77.1 H (50.0-75.0) % Lymph % (Auto) 19.3 L (20.0-40.0) % [place] % (Auto) 3.4 (0.0-10.0) % Eos % (Auto) 0.0 (0.0-4.0) % Baso % (Auto) 0.2 (0.0-2.0) % Neut # 11.8 H (1.8-7.0) K/uL Lymph # 3.0 (1.0-4.3) K/uL [place] # 0.5 (0.0-0.8) K/uL Eos # 0.0 (0.0-0.7) K/uL Baso # 0.0 (0.0-0.2) K/uL Differential Comment Retic Count 1.3 (0.5-1.5) % PT 13.0 H (9.7-12.2) SECONDS INR 1.2 APTT 29 (21-34) SECONDS Sodium 143 (132-148) mmol/L Potassium 4.0 (3.6-5.2) mmol/L Chloride 110 H (98-107) mmol/L Carbon Dioxide 15 L (22-30) mmol/L Anion Gap 22 H (10-20) BUN 58 H (9-20) mg/dL Creatinine 5.3 H (0.8-1.5) MG/DL Est GFR ( Amer) 15 Est GFR (Non-Af Amer) 13 Random Glucose 146 H (75-110) mg/dL Calcium 9.3 (8.6-10.4) mg/dl Phosphorus 3.8 (2.5-4.5) mg/dL Magnesium 2.4 H (1.6-2.3) mg/dL Ferritin 253.0 ng/mL Total Bilirubin 0.8 (0.2-1.3) mg/dL AST 19 (17-59) U/L ALT 25 (21-72) U/L Alkaline Phosphatase 109 (38-126) U/L Lactate Dehydrogenase 1114 H (313-618) U/L Total Protein 6.9 (6.3-8.3) g/dL Albumin 4.1 (3.5-5.0) g/dL Globulin 2.9 (2.2-3.9) gm/dL Albumin/Globulin Ratio 1.4 (1.0-2.1) Vitamin B12 818 (239-931) pg/mL Folate 11.9 ng/mL Urine Color (YELLOW) Urine Clarity (Clear) Urine pH (5.0-8.0) Ur Specific [place] (1.003-1.030) Urine Protein (NEGATIVE) mg/dL Urine Glucose (UA) (Normal) mg/dL Urine Ketones (NEGATIVE) mg/dL Urine Blood (NEGATIVE) Urine Nitrate (NEGATIVE) Urine Bilirubin (NEGATIVE) Urine Urobilinogen (0.2-1.0) mg/dL Ur Leukocyte Esterase (Negative) Amy/uL Urine WBC (Auto) (0-5) /hpf Urine RBC (Auto) (0-3) /hpf Urine Bacteria (<OCC) Blood Type Antibody Screen 03/16/17 03/15/17 Range/Units 06:24 14:11 WBC (4.8-10.8) K/uL RBC (4.40-5.90) Mil/uL Hgb (12.0-18.0) g/dL Hct (35.0-51.0) % MCV (80.0-94.0) fL MCH (27.0-31.0) pg MCHC (33.0-37.0) g/dL RDW (11.5-14.5) % Plt Count (130-400) K/uL MPV (7.2-11.7) fL Neut % (Auto) (50.0-75.0) % Lymph % (Auto) (20.0-40.0) % [place] % (Auto) (0.0-10.0) % Eos % (Auto) (0.0-4.0) % Baso % (Auto) (0.0-2.0) % Neut # (1.8-7.0) K/uL Lymph # (1.0-4.3) K/uL [place] # (0.0-0.8) K/uL Eos # (0.0-0.7) K/uL Baso # (0.0-0.2) K/uL Differential Comment Retic Count (0.5-1.5) % PT (9.7-12.2) SECONDS INR APTT (21-34) SECONDS Sodium (132-148) mmol/L Potassium (3.6-5.2) mmol/L Chloride (98-107) mmol/L Carbon Dioxide (22-30) mmol/L Anion Gap (10-20) BUN (9-20) mg/dL Creatinine (0.8-1.5) MG/DL Est GFR ( Amer) Est GFR (Non-Af Amer) Random Glucose (75-110) mg/dL Calcium (8.6-10.4) mg/dl Phosphorus (2.5-4.5) mg/dL Magnesium (1.6-2.3) mg/dL Ferritin ng/mL Total Bilirubin (0.2-1.3) mg/dL AST (17-59) U/L ALT (21-72) U/L Alkaline Phosphatase (38-126) U/L Lactate Dehydrogenase (313-618) U/L Total Protein (6.3-8.3) g/dL Albumin (3.5-5.0) g/dL Globulin (2.2-3.9) gm/dL Albumin/Globulin Ratio (1.0-2.1) Vitamin B12 (239-931) pg/mL Folate ng/mL Urine Color Yellow (YELLOW) Urine Clarity Clear (Clear) Urine pH 5.0 (5.0-8.0) Ur Specific [place] 1.015 (1.003-1.030) Urine Protein 3+ H (NEGATIVE) mg/dL Urine Glucose (UA) Normal (Normal) mg/dL Urine Ketones Negative (NEGATIVE) mg/dL Urine Blood 1+ H (NEGATIVE) Urine Nitrate Negative (NEGATIVE) Urine Bilirubin Negative (NEGATIVE) Urine Urobilinogen Normal (0.2-1.0) mg/dL Ur Leukocyte Esterase Neg (Negative) Amy/uL Urine WBC (Auto) 1 (0-5) /hpf Urine RBC (Auto) 11 H (0-3) /hpf Urine Bacteria Rare (<OCC) Blood Type O POSITIVE Antibody Screen Negative Laboratory Results - last 24 hr 03/15/17 03/16/17 03/16/17 14:11 06:24 06:24 WBC 15.3 H RBC 3.77 L Hgb 11.1 L Hct 34.1 L MCV 90.6 MCH 29.4 MCHC 32.4 L RDW 15.5 H Plt Count 47 L D MPV 8.1 Neut % (Auto) 77.1 H Lymph % (Auto) 19.3 L [place] % (Auto) 3.4 Eos % (Auto) 0.0 Baso % (Auto) 0.2 Neut # 11.8 H Lymph # 3.0 [place] # 0.5 Eos # 0.0 Baso # 0.0 Differential Comment Retic Count 1.3 PT INR APTT Sodium Potassium Chloride Carbon Dioxide Anion Gap BUN Creatinine Est GFR ( Amer) Est GFR (Non-Af Amer) Random Glucose Calcium Phosphorus Magnesium Ferritin Total Bilirubin AST ALT Alkaline Phosphatase Lactate Dehydrogenase Total Protein Albumin Globulin Albumin/Globulin Ratio Vitamin B12 Folate Urine Color Yellow Urine Clarity Clear Urine pH 5.0 Ur Specific [place] 1.015 Urine Protein 3+ H Urine Glucose (UA) Normal Urine Ketones Negative Urine Blood 1+ H Urine Nitrate Negative Urine Bilirubin Negative Urine Urobilinogen Normal Ur Leukocyte Esterase Neg Urine WBC (Auto) 1 Urine RBC (Auto) 11 H Urine Bacteria Rare Blood Type O POSITIVE Antibody Screen Negative 03/16/17 03/16/17 06:24 06:27 WBC RBC Hgb Hct MCV MCH MCHC RDW Plt Count MPV Neut % (Auto) Lymph % (Auto) [place] % (Auto) Eos % (Auto) Baso % (Auto) Neut # Lymph # [place] # Eos # Baso # Differential Comment Retic Count PT 13.0 H INR 1.2 APTT 29 Sodium 143 Potassium 4.0 Chloride 110 H Carbon Dioxide 15 L Anion Gap 22 H BUN 58 H Creatinine 5.3 H Est GFR ( Amer) 15 Est GFR (Non-Af Amer) 13 Random Glucose 146 H Calcium 9.3 Phosphorus 3.8 Magnesium 2.4 H Ferritin 253.0 Total Bilirubin 0.8 AST 19 ALT 25 Alkaline Phosphatase 109 Lactate Dehydrogenase 1114 H Total Protein 6.9 Albumin 4.1 Globulin 2.9 Albumin/Globulin Ratio 1.4 Vitamin B12 818 Folate 11.9 Urine Color Urine Clarity Urine pH Ur Specific [place] Urine Protein Urine Glucose (UA) Urine Ketones Urine Blood Urine Nitrate Urine Bilirubin Urine Urobilinogen Ur Leukocyte Esterase Urine WBC (Auto) Urine RBC (Auto) Urine Bacteria Blood Type Antibody Screen Review of Systems - Constitutional Constitutional: absent: Fever, Chills - EENT Eyes: Blurred Vision (improved from admission) Ears: Decreased Hearing. absent: Ear Discharge, Ear Pain Nose/Mouth/Throat: absent: Nasal Congestion, Nasal Discharge - Cardiovascular Cardiovascular: absent: Chest Pain, Dyspnea - Respiratory Respiratory: absent: Dyspnea, Chest Congestion - Gastrointestinal Gastrointestinal: absent: Abdominal Pain, Nausea, Vomiting - Genitourinary Genitourinary: absent: Difficulty Urinating, Dysuria - Musculoskeletal Musculoskeletal: absent: Numbness, Tingling - Integumentary Integumentary: absent: Wounds - Neurological Neurological: Headaches (improved ) - Psychiatric Psychiatric: Depression. absent: Anxiety - Endocrine Endocrine: Fatigue. absent: Polydipsia, Polyphagia Critical Care Progress Note - Nutrition Nutrition: Nutrition Category Date Time Status Liquid Diet [DIET] Diets 03/15/17 Lunch Active Assessment/Plan - Assessment and Plan (Free Text) Assessment: 31 M with PMHx of [place] vs atypical HUS, HTN, unresponsive thrombocytopenia, presenting with headache, HTN emergency, thrombocytopenia. Plan: Pt status: Admit to ICU Neuro: AAOx3 CT Head (03/15/17): Generalized atrophy. Nonspecific white matter hypodensities within the right parietal lobe. (see full report) Headache/Blurry vision - improved when BP controlled on Nitro GGT Hem/Onc: Atypical HUS Platelet count 47k today, 10k on admission - responded well to 2 units of platelets transfused - Will receive Eculizumab (solaris) TODAY Given Solumedrol 125mg once in ED, 60mg IVP Q6H; DDAVP x 1 Dr. 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 Pt consented to atypical HUS treatment with eculizumab. - H/H currently stable - from previous admission: Bone Marrow biopsy no evidence of myelodysplastic or myeloproliferative syndrome. Peripheral smear shows schistocytes. Immune studies : HIV, MAGDI, Rheumatoid panel, complement studies negative. C-anca negative. CV: HTN Emergency SBP 230 in ED, now better controlled ~ 160 - Nitro drip - Coreg 12.5 mg PO BID - Apresoline 25mg PO TID /Renal: Nephrotic Kidney Disease UA (03/16/17): 3+ protein, 1+ blood, Nitrate/LE negative Bun/Cr today 58/5.2 [facility], Dr. Villasenor, consulted. Help appreciated. - Recommend permacath placement, due to rising creatinine Hx of Abnormal renal biopsy Left renal Biopsy (10/19): reports consistent with atypical HUS Last admission: IR, Dr. Dorado, performed left renal angiogram with embolization of left kidney Pulm: O2 sat: 99% on rm Air Breathing without difficulty GI: Nausea/Vomiting -non-bilious, non-bloody Zofran 4mg IV Q6H PRN Alk phos elevation resolved today Prophylactic Measures: Pepcid 20 mg po bid Anticoagulation contraindicated due to thrombocytopenia SCDs <Manuel Sutton S - Last Filed: 03/16/17 18:21> CCU Objective - Vital Signs / Intake & Output Vital Signs (Last 4 hours): Vital Signs Temp Pulse Resp BP Pulse Ox 03/16/17 17:45 97.6 F 80 18 171/112 H 03/16/17 17:11 163/111 H 03/16/17 16:47 97.8 F 103 H 18 173/98 H 03/16/17 16:17 97.6 F 96 H 16 167/75 H 03/16/17 16:02 97.8 F 101 H 18 154/90 H 03/16/17 16:00 97.4 F L 101 H 18 154/90 H 96 03/16/17 15:47 97.4 F L 84 18 167/105 H 03/16/17 15:30 97.4 F L 70 19 187/93 H 03/16/17 15:00 88 17 158/92 H 96 Intake and Output (Last 8hrs): Intake & Output 03/16/17 03/16/17 03/16/17 06:59 14:59 22:59 Intake Total 173.4 446.0 139.0 Output Total 750 950 175 Balance -576.6 -504.0 -36.0 Weight 177 lb 4.026 oz Intake: IV 19.2 Intake, IV Amount 154.2 446.0 139.0 Right Antecubital 154.2 156.0 39.0 Right Hand 290 100 Blood Product 0 Apheresis Plts Acda Lr 0 2nd Con Unit [id number] Output: Urine 450 650 175 Urine, Voided 450 650 175 Emesis 300 300 - Medications Active Medications: Active Medications Generic Name Dose Route Start Last Admin Trade Name Freq PRN Reason Stop Dose Admin Carvedilol 25 mg 03/16/17 13:49 03/16/17 17:11 Coreg PO 25 mg BID GUILLE Administration Famotidine 20 mg 03/15/17 18:00 03/16/17 17:12 Pepcid PO 20 mg BID GUILLE Administration Hydralazine HCl 50 mg 03/15/17 21:00 03/16/17 14:48 Apresoline PO 50 mg Q6H GUILLE Administration Sodium Bicarbonate 150 meq/ 1,000 mls @ 50 mls/hr 03/16/17 14:15 03/16/17 14: 47 Dextrose IV 50 mls/hr .Q20H GUILLE Administration Methylprednisolone 60 mg 03/15/17 20:00 03/16/17 17:12 Solu-Medrol IVP 60 mg Q6 GUILLE Administration Ondansetron HCl 4 mg 03/15/17 17:19 03/16/17 05:05 Zofran Inj IVP 4 mg Q6H PRN Administration Nausea/Vomiting - Patient Studies Lab Studies: Lab Studies 03/16/17 03/16/17 03/16/17 Range/Units 06:27 06:24 06:24 WBC 15.3 H (4.8-10.8) K/uL RBC 3.77 L (4.40-5.90) Mil/uL Hgb 11.1 L (12.0-18.0) g/dL Hct 34.1 L (35.0-51.0) % MCV 90.6 (80.0-94.0) fL MCH 29.4 (27.0-31.0) pg MCHC 32.4 L (33.0-37.0) g/dL RDW 15.5 H (11.5-14.5) % Plt Count 47 L D (130-400) K/uL MPV 8.1 (7.2-11.7) fL Neut % (Auto) 77.1 H (50.0-75.0) % Lymph % (Auto) 19.3 L (20.0-40.0) % [place] % (Auto) 3.4 (0.0-10.0) % Eos % (Auto) 0.0 (0.0-4.0) % Baso % (Auto) 0.2 (0.0-2.0) % Neut # 11.8 H (1.8-7.0) K/uL Lymph # 3.0 (1.0-4.3) K/uL [place] # 0.5 (0.0-0.8) K/uL Eos # 0.0 (0.0-0.7) K/uL Baso # 0.0 (0.0-0.2) K/uL Differential Comment Retic Count 1.3 (0.5-1.5) % PT 13.0 H (9.7-12.2) SECONDS INR 1.2 APTT 29 (21-34) SECONDS Sodium 143 (132-148) mmol/L Potassium 4.0 (3.6-5.2) mmol/L Chloride 110 H (98-107) mmol/L Carbon Dioxide 15 L (22-30) mmol/L Anion Gap 22 H (10-20) BUN 58 H (9-20) mg/dL Creatinine 5.3 H (0.8-1.5) MG/DL Est GFR ( Amer) 15 Est GFR (Non-Af Amer) 13 Random Glucose 146 H (75-110) mg/dL Calcium 9.3 (8.6-10.4) mg/dl Phosphorus 3.8 (2.5-4.5) mg/dL Magnesium 2.4 H (1.6-2.3) mg/dL Ferritin 253.0 ng/mL Total Bilirubin 0.8 (0.2-1.3) mg/dL AST 19 (17-59) U/L ALT 25 (21-72) U/L Alkaline Phosphatase 109 (38-126) U/L Lactate Dehydrogenase 1114 H (313-618) U/L Total Protein 6.9 (6.3-8.3) g/dL Albumin 4.1 (3.5-5.0) g/dL Globulin 2.9 (2.2-3.9) gm/dL Albumin/Globulin Ratio 1.4 (1.0-2.1) Vitamin B12 818 (239-931) pg/mL Folate 11.9 ng/mL Urine Color (YELLOW) Urine Clarity (Clear) Urine pH (5.0-8.0) Ur Specific [place] (1.003-1.030) Urine Protein (NEGATIVE) mg/dL Urine Glucose (UA) (Normal) mg/dL Urine Ketones (NEGATIVE) mg/dL Urine Blood (NEGATIVE) Urine Nitrate (NEGATIVE) Urine Bilirubin (NEGATIVE) Urine Urobilinogen (0.2-1.0) mg/dL Ur Leukocyte Esterase (Negative) Amy/uL Urine WBC (Auto) (0-5) /hpf Urine RBC (Auto) (0-3) /hpf Urine Bacteria (<OCC) 03/16/17 Range/Units 06:24 WBC (4.8-10.8) K/uL RBC (4.40-5.90) Mil/uL Hgb (12.0-18.0) g/dL Hct (35.0-51.0) % MCV (80.0-94.0) fL MCH (27.0-31.0) pg MCHC (33.0-37.0) g/dL RDW (11.5-14.5) % Plt Count (130-400) K/uL MPV (7.2-11.7) fL Neut % (Auto) (50.0-75.0) % Lymph % (Auto) (20.0-40.0) % [place] % (Auto) (0.0-10.0) % Eos % (Auto) (0.0-4.0) % Baso % (Auto) (0.0-2.0) % Neut # (1.8-7.0) K/uL Lymph # (1.0-4.3) K/uL [place] # (0.0-0.8) K/uL Eos # (0.0-0.7) K/uL Baso # (0.0-0.2) K/uL Differential Comment Retic Count (0.5-1.5) % PT (9.7-12.2) SECONDS INR APTT (21-34) SECONDS Sodium (132-148) mmol/L Potassium (3.6-5.2) mmol/L Chloride (98-107) mmol/L Carbon Dioxide (22-30) mmol/L Anion Gap (10-20) BUN (9-20) mg/dL Creatinine (0.8-1.5) MG/DL Est GFR ( Amer) Est GFR (Non-Af Amer) Random Glucose (75-110) mg/dL Calcium (8.6-10.4) mg/dl Phosphorus (2.5-4.5) mg/dL Magnesium (1.6-2.3) mg/dL Ferritin ng/mL Total Bilirubin (0.2-1.3) mg/dL AST (17-59) U/L ALT (21-72) U/L Alkaline Phosphatase (38-126) U/L Lactate Dehydrogenase (313-618) U/L Total Protein (6.3-8.3) g/dL Albumin (3.5-5.0) g/dL Globulin (2.2-3.9) gm/dL Albumin/Globulin Ratio (1.0-2.1) Vitamin B12 (239-931) pg/mL Folate ng/mL Urine Color Yellow (YELLOW) Urine Clarity Clear (Clear) Urine pH 5.0 (5.0-8.0) Ur Specific [place] 1.015 (1.003-1.030) Urine Protein 3+ H (NEGATIVE) mg/dL Urine Glucose (UA) Normal (Normal) mg/dL Urine Ketones Negative (NEGATIVE) mg/dL Urine Blood 1+ H (NEGATIVE) Urine Nitrate Negative (NEGATIVE) Urine Bilirubin Negative (NEGATIVE) Urine Urobilinogen Normal (0.2-1.0) mg/dL Ur Leukocyte Esterase Neg (Negative) Amy/uL Urine WBC (Auto) 1 (0-5) /hpf Urine RBC (Auto) 11 H (0-3) /hpf Urine Bacteria Rare (<OCC) Laboratory Results - last 24 hr 03/16/17 03/16/17 03/16/17 06:24 06:24 06:24 WBC 15.3 H RBC 3.77 L Hgb 11.1 L Hct 34.1 L MCV 90.6 MCH 29.4 MCHC 32.4 L RDW 15.5 H Plt Count 47 L D MPV 8.1 Neut % (Auto) 77.1 H Lymph % (Auto) 19.3 L [place] % (Auto) 3.4 Eos % (Auto) 0.0 Baso % (Auto) 0.2 Neut # 11.8 H Lymph # 3.0 [place] # 0.5 Eos # 0.0 Baso # 0.0 Differential Comment Retic Count 1.3 PT 13.0 H INR 1.2 APTT 29 Sodium Potassium Chloride Carbon Dioxide Anion Gap BUN Creatinine Est GFR ( Amer) Est GFR (Non-Af Amer) Random Glucose Calcium Phosphorus Magnesium Ferritin Total Bilirubin AST ALT Alkaline Phosphatase Lactate Dehydrogenase Total Protein Albumin Globulin Albumin/Globulin Ratio Vitamin B12 Folate Urine Color Yellow Urine Clarity Clear Urine pH 5.0 Ur Specific [place] 1.015 Urine Protein 3+ H Urine Glucose (UA) Normal Urine Ketones Negative Urine Blood 1+ H Urine Nitrate Negative Urine Bilirubin Negative Urine Urobilinogen Normal Ur Leukocyte Esterase Neg Urine WBC (Auto) 1 Urine RBC (Auto) 11 H Urine Bacteria Rare 03/16/17 06:27 WBC RBC Hgb Hct MCV MCH MCHC RDW Plt Count MPV Neut % (Auto) Lymph % (Auto) [place] % (Auto) Eos % (Auto) Baso % (Auto) Neut # Lymph # [place] # Eos # Baso # Differential Comment Retic Count PT INR APTT Sodium 143 Potassium 4.0 Chloride 110 H Carbon Dioxide 15 L Anion Gap 22 H BUN 58 H Creatinine 5.3 H Est GFR ( Amer) 15 Est GFR (Non-Af Amer) 13 Random Glucose 146 H Calcium 9.3 Phosphorus 3.8 Magnesium 2.4 H Ferritin 253.0 Total Bilirubin 0.8 AST 19 ALT 25 Alkaline Phosphatase 109 Lactate Dehydrogenase 1114 H Total Protein 6.9 Albumin 4.1 Globulin 2.9 Albumin/Globulin Ratio 1.4 Vitamin B12 818 Folate 11.9 Urine Color Urine Clarity Urine pH Ur Specific [place] Urine Protein Urine Glucose (UA) Urine Ketones Urine Blood Urine Nitrate Urine Bilirubin Urine Urobilinogen Ur Leukocyte Esterase Urine WBC (Auto) Urine RBC (Auto) Urine Bacteria Critical Care Progress Note - Nutrition Nutrition: Nutrition Category Date Time Status Liquid Diet [DIET] Diets 03/16/17 Dinner Active NPO Diet [DIET] Diets 03/17/17 Breakfast Active Attending/Attestation - Attestation I have personally seen and examined this patient.: Yes I have fully participated in the care of the patient.: Yes I have reviewed all pertinent clinical information: Yes Notes (Text): 03/16/17 18:17 Patient seen and examined in the intensive care unit. Case discussed with house staff in the morning rounds. For perma cath placement tomorrow to start hemodialysis Transfuse platelets Pt consented to atypical HUS treatment with eculizumab.
--- NOTE | 2017-03-16 10:50 | CARD ---
APPROVED REPORT EKG Measurement Heart [id number] <Conclusion> Normal sinus rhythm Normal ECG
--- NOTE | 2017-03-16 11:00 | CP.PCM.CON ---
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 Patient is currently receiving Ecluzimab therapy as outpatient with Dr. Benites for treatment of his HUS with thrombocytopenia. Patient presented to the hospital yesterday with complaint of headache, not relieved by Advil, as well as blurred vision. Patient had BP of 170/106 in the ED and is currently in ICU receiving nitro drip. Patient with currently complaints of nausea and vomiting. Patient denies headache currently. Patient denies fever, chills, chest pain. Patient admits to blurred vision that has improved since admission. Vascular surgery consulted for permacath placement. 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 Drinks alcohol socially. Denies drug use. 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 Review of Systems - Constitutional Constitutional: Headache. absent: Chills, Fever - EENT Eyes: Blurred Vision Ears: absent: Dizziness - Cardiovascular Cardiovascular: absent: Chest Pain - Respiratory Respiratory: absent: Cough, Dyspnea - Gastrointestinal Gastrointestinal: Nausea, Vomiting. absent: Abdominal Pain - Genitourinary Genitourinary: absent: Dysuria - Musculoskeletal Musculoskeletal: absent: Back Pain - Neurological Neurological: absent: Dizziness Past Patient History - Infectious Disease Hx of Infectious Diseases: None - Past Medical History & Family History Past Medical History?: Yes - Past Social History Smoking Status: Never Smoked - CARDIAC Hx Hypertension: Yes - PULMONARY Hx Respiratory Disorders: No - NEUROLOGICAL Hx Neurological Disorder: No - HEENT Other/Comment: HEARING IMPAIRED - RENAL Other/Comment: renal disease - ENDOCRINE/METABOLIC Hx Endocrine Disorders: No - HEMATOLOGICAL/ONCOLOGICAL Other/Comment: Thrombocytopenia - INTEGUMENTARY Hx Dermatological Problems: No - MUSCULOSKELETAL/RHEUMATOLOGICAL Hx Falls: No - GASTROINTESTINAL Hx Gastrointestinal Disorders: No - GENITOURINARY/GYNECOLOGICAL Hx Genitourinary Disorders: No - PSYCHIATRIC Hx Substance Use: No - SURGICAL HISTORY Hx Surgeries: Yes Hx Splenectomy: Yes (AT 4 YEARS OF AGE) - ANESTHESIA Hx Anesthesia: Yes Hx Anesthesia Reactions: No Meds Allergies/Adverse Reactions: Allergies Allergy/AdvReac Type Severity Reaction Status Date / Time No Known Allergies Allergy Unknown none Verified 03/15/17 17:01 - Medications Medications: Current Medications Carvedilol (Coreg) 12.[address] [facility] Last Admin: 03/16/17 10:02 Dose: 12.5 mg Famotidine (Pepcid) [address] [facility] Last Admin: 03/16/17 10:02 Dose: 20 mg Hydralazine HCl (Apresoline) [address] [facility] Last Admin: 03/16/17 10:02 Dose: 50 mg Nitroglycerin/Dextrose (Nitroglycerin 50 Mg/250 Ml D5w) 50 mg in 250 mls @ 1.5 mls/hr IV .Q24H ONE; 5 MCG/MIN PRN Reason: Protocol Stop: 03/16/17 13:57 Last Admin: 03/16/17 06:33 Dose: 65 mcg/min, 19.5 mls/hr Methylprednisolone (Solu-Medrol) [address] [facility] Last Admin: 03/16/17 05:07 Dose: 60 mg Ondansetron HCl (Zofran Inj) 4 mg IVP Q6H PRN PRN Reason: Nausea/Vomiting Last Admin: 03/16/17 05:05 Dose: 4 mg Physical Exam - Constitutional Appears: Non-toxic, No Acute Distress - Head Exam Head Exam: ATRAUMATIC, NORMOCEPHALIC - Eye Exam Eye Exam: EOMI - ENT Exam Additional comments: hard of hearing, pt wears hearing aids - Respiratory Exam Respiratory Exam: Clear to Auscultation Bilateral - Cardiovascular Exam Cardiovascular Exam: +S1, +S2 - GI/Abdominal Exam GI & Abdominal Exam: Normal Bowel Sounds, Soft. absent: Tenderness - Extremities Exam Extremities exam: Positive for: normal inspection - Neurological Exam Neurological exam: Alert - Psychiatric Exam Psychiatric exam: Normal Affect - Skin Skin Exam: Warm Results - Vital Signs Recent Vital Signs: Last Vital Signs Temp 98 F 03/16/17 04:00 Pulse 82 03/16/17 07:00 Resp 19 03/16/17 07:00 BP 160/106 H 03/16/17 10:02 Pulse Ox 96 03/16/17 07:00 - Labs Result Diagrams: 03/16/17 06:24 03/16/17 06:27 Labs: Laboratory Results - last 24 hr 03/15/17 03/16/17 03/16/17 14:11 06:24 06:24 WBC 15.3 H RBC 3.77 L Hgb 11.1 L Hct 34.1 L MCV 90.6 MCH 29.4 MCHC 32.4 L RDW 15.5 H Plt Count 47 L D MPV 8.1 Neut % (Auto) 77.1 H Lymph % (Auto) 19.3 L [place] % (Auto) 3.4 Eos % (Auto) 0.0 Baso % (Auto) 0.2 Neut # 11.8 H Lymph # 3.0 [place] # 0.5 Eos # 0.0 Baso # 0.0 Differential Comment Retic Count 1.3 PT INR APTT Sodium Potassium Chloride Carbon Dioxide Anion Gap BUN Creatinine Est GFR ( Amer) Est GFR (Non-Af Amer) Random Glucose Calcium Phosphorus Magnesium Ferritin Total Bilirubin AST ALT Alkaline Phosphatase Lactate Dehydrogenase Total Protein Albumin Globulin Albumin/Globulin Ratio Vitamin B12 Folate Urine Color Yellow Urine Clarity Clear Urine pH 5.0 Ur Specific [place] 1.015 Urine Protein 3+ H Urine Glucose (UA) Normal Urine Ketones Negative Urine Blood 1+ H Urine Nitrate Negative Urine Bilirubin Negative Urine Urobilinogen Normal Ur Leukocyte Esterase Neg Urine WBC (Auto) 1 Urine RBC (Auto) 11 H Urine Bacteria Rare Blood Type O POSITIVE Antibody Screen Negative 03/16/17 03/16/17 06:24 06:27 WBC RBC Hgb Hct MCV MCH MCHC RDW Plt Count MPV Neut % (Auto) Lymph % (Auto) [place] % (Auto) Eos % (Auto) Baso % (Auto) Neut # Lymph # [place] # Eos # Baso # Differential Comment Retic Count PT 13.0 H INR 1.2 APTT 29 Sodium 143 Potassium 4.0 Chloride 110 H Carbon Dioxide 15 L Anion Gap 22 H BUN 58 H Creatinine 5.3 H Est GFR ( Amer) 15 Est GFR (Non-Af Amer) 13 Random Glucose 146 H Calcium 9.3 Phosphorus 3.8 Magnesium 2.4 H Ferritin 253.0 Total Bilirubin 0.8 AST 19 ALT 25 Alkaline Phosphatase 109 Lactate Dehydrogenase 1114 H Total Protein 6.9 Albumin 4.1 Globulin 2.9 Albumin/Globulin Ratio 1.4 Vitamin B12 818 Folate 11.9 Urine Color Urine Clarity Urine pH Ur Specific [place] Urine Protein Urine Glucose (UA) Urine Ketones Urine Blood Urine Nitrate Urine Bilirubin Urine Urobilinogen Ur Leukocyte Esterase Urine WBC (Auto) Urine RBC (Auto) Urine Bacteria Blood Type Antibody Screen Assessment & Plan - Assessment and Plan (Free Text) Assessment: 31 year old male with PMHx Atypical HUS, Nephrotic Kidney disease- consult for permacath placement - continue treatment for atypical HUS with ecluzimab therapy and platelet transfusions as needed - continue medical management of HTN per primary team - plan for permacath placement tomorrow - D/W Dr Quach
[2017-03-16] MEDS ORDERED: Dexamethasone 10 MG in Sodium Chloride 0.9% 50 ML IV ONE (11:20)
[2017-03-16] MEDS ORDERED: DiphenhydrAMINE 50 mg/ml Inj IVP ONE (11:30)
[2017-03-16] MEDS ORDERED: ECULIZUMAB IV ONE (12:00)
[2017-03-16] MEDS ORDERED: SODIUM CHLORIDE 0.9% IV ONE (12:00)
--- NOTE | 2017-03-16 13:40 | CP.PCM.CON ---
History of Present Illness - History of Present Illness History of Present Illness: 31 y/o HM presents nausea and vomiting and uncontrolled HTN. Creat elevated from last presentation. Now with worsening metabolic acidosis. He was previously determined to probably have atypical HUS through bone marrow biopsy and peripheral smear. C-anca was negative. HIV, MAGDI, rheumatoid panel and complement studies were also negative. Patient was transfused multiple times with platelets. Patient's platelets went as low as 5 over hospital stay. No improvement with steroids. Patient was started on Ecluzimab (Soloris) on per clinical trial and has been on this medication since then - it is a once a week medication given under the approval of the hospital due to the cost. He has been following up with the [facility] as well as with Hematology Oncology Further more the patient had ongoing worsening renal function particularly after 10/16 and a renal biopsy was done after the patient had multiple platelet transfusions. He did well the following few days however after he had a precipitous drop in the platelet count again he developed abdominal pain and had a large retroperitoneal hemorrhage around the left kidney. Because of the heavy bleeding requiring many PRBCs ultimately he had to have a left renal angiogram with embolization of left kidney. There was discussion of giving the patient HD due to the worsening renal function however because of the chronically low platelet counts this was deferred. From the renal biospy suggests possible HUS or Alport disease (he does have loss of hearing and CKD) however - ALports was not likely. 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 Today 03/15 he returns with the CC of difficulty seeing, headache as well as bleeding gums. He is not alter mental status as he was from before. However his blood pressure is very elevated with a systolic of 190 and having headache and blurry vision. He has already been given several rounds of hydralazine IV 10mg as well as norasvc 10 and labatelol 20mg IVP x 1. He again has a platelet count of 10. He has minimal bleeding in his mouth. He does not have any rash or petechia. We discussed about transferring the patient to another hospital since his situation has not improved even with the Ecluzimab and his renal function is worsening with a creatine of 5.0. After my discussion with multiple physicians we agreed to admit here. I am going to give large doses of solumedrol as well as give DDAVP now and also platelets now. He denied chest pain, denied palpitations, denied abdominal or flank pain (last time had a large renal bleed and severe pain) He reported + blurry vision, + headache, + blood in mouth, + easy bruising + blood in urine + intermitent fevers. He doesn't know if he has blood in stools or not. Medications: Soliris transfusion once a week Coreg 25mg by mouth twice a day Norvasc 10mg by mouth once a day Phoslo 1334mg by mouth three times a day with food Colace 100mg by mouth twice a day Pepcid 20mg by mouth once a day Hydralazine 50mg by mouth every 6 hours Surgical: renal bx, embolization of renal artery CONSULT DICTATED PATIENT WILL NEED DIALYSIS- WILL DISCUSS WITH PATIENT AND STAFF. Past Patient History - Infectious Disease Hx of Infectious Diseases: None - Past Medical History & Family History Past Medical History?: Yes - Past Social History Smoking Status: Never Smoked - CARDIAC Hx Hypertension: Yes - PULMONARY Hx Respiratory Disorders: No - NEUROLOGICAL Hx Neurological Disorder: No - HEENT Other/Comment: HEARING IMPAIRED - RENAL Other/Comment: renal disease - ENDOCRINE/METABOLIC Hx Endocrine Disorders: No - HEMATOLOGICAL/ONCOLOGICAL Other/Comment: Thrombocytopenia - INTEGUMENTARY Hx Dermatological Problems: No - MUSCULOSKELETAL/RHEUMATOLOGICAL Hx Falls: No - GASTROINTESTINAL Hx Gastrointestinal Disorders: No - GENITOURINARY/GYNECOLOGICAL Hx Genitourinary Disorders: No - PSYCHIATRIC Hx Substance Use: No - SURGICAL HISTORY Hx Surgeries: Yes Hx Splenectomy: Yes (AT 4 YEARS OF AGE) - ANESTHESIA Hx Anesthesia: Yes Hx Anesthesia Reactions: No Meds Allergies/Adverse Reactions: Allergies Allergy/AdvReac Type Severity Reaction Status Date / Time No Known Allergies Allergy Unknown none Verified 03/15/17 17:01 - Medications Medications: Current Medications Carvedilol (Coreg) 12.5 mg PO BID [facility] Last Admin: 03/16/17 10:02 Dose: 12.5 mg Famotidine (Pepcid) 20 mg PO BID [facility] Last Admin: 03/16/17 10:02 Dose: 20 mg Hydralazine HCl (Apresoline) 50 mg PO Q6H [facility] Last Admin: 03/16/17 10:02 Dose: 50 mg Nitroglycerin/Dextrose (Nitroglycerin 50 Mg/250 Ml D5w) 50 mg in 250 mls @ 1.5 mls/hr IV .Q24H ONE; 5 MCG/MIN PRN Reason: Protocol Stop: 03/16/17 13:57 Last Admin: 03/16/17 06:33 Dose: 65 mcg/min, 19.5 mls/hr Methylprednisolone (Solu-Medrol) 60 mg IVP Q6 [facility] Last Admin: 03/16/17 11:36 Dose: Not Given Ondansetron HCl (Zofran Inj) 4 mg IVP Q6H PRN PRN Reason: Nausea/Vomiting Last Admin: 03/16/17 05:05 Dose: 4 mg Results - Vital Signs Recent Vital Signs: Last Vital Signs Temp 98.2 F 03/16/17 08:00 Pulse 108 H 03/16/17 09:00 Resp 16 03/16/17 09:00 BP 160/106 H 03/16/17 10:02 Pulse Ox 99 03/16/17 09:00 - Labs Result Diagrams: 03/16/17 06:24 03/16/17 06:27 Labs: Laboratory Results - last 24 hr 03/15/17 03/16/17 03/16/17 14:11 06:24 06:24 WBC 15.3 H RBC 3.77 L Hgb 11.1 L Hct 34.1 L MCV 90.6 MCH 29.4 MCHC 32.4 L RDW 15.5 H Plt Count 47 L D MPV 8.1 Neut % (Auto) 77.1 H Lymph % (Auto) 19.3 L [place] % (Auto) 3.4 Eos % (Auto) 0.0 Baso % (Auto) 0.2 Neut # 11.8 H Lymph # 3.0 [place] # 0.5 Eos # 0.0 Baso # 0.0 Differential Comment Retic Count 1.3 PT INR APTT Sodium Potassium Chloride Carbon Dioxide Anion Gap BUN Creatinine Est GFR ( Amer) Est GFR (Non-Af Amer) Random Glucose Calcium Phosphorus Magnesium Ferritin Total Bilirubin AST ALT Alkaline Phosphatase Lactate Dehydrogenase Total Protein Albumin Globulin Albumin/Globulin Ratio Vitamin B12 Folate Urine Color Yellow Urine Clarity Clear Urine pH 5.0 Ur Specific [place] 1.015 Urine Protein 3+ H Urine Glucose (UA) Normal Urine Ketones Negative Urine Blood 1+ H Urine Nitrate Negative Urine Bilirubin Negative Urine Urobilinogen Normal Ur Leukocyte Esterase Neg Urine WBC (Auto) 1 Urine RBC (Auto) 11 H Urine Bacteria Rare Blood Type O POSITIVE Antibody Screen Negative 03/16/17 03/16/17 06:24 06:27 WBC RBC Hgb Hct MCV MCH MCHC RDW Plt Count MPV Neut % (Auto) Lymph % (Auto) [place] % (Auto) Eos % (Auto) Baso % (Auto) Neut # Lymph # [place] # Eos # Baso # Differential Comment Retic Count PT 13.0 H INR 1.2 APTT 29 Sodium 143 Potassium 4.0 Chloride 110 H Carbon Dioxide 15 L Anion Gap 22 H BUN 58 H Creatinine 5.3 H Est GFR ( Amer) 15 Est GFR (Non-Af Amer) 13 Random Glucose 146 H Calcium 9.3 Phosphorus 3.8 Magnesium 2.4 H Ferritin 253.0 Total Bilirubin 0.8 AST 19 ALT 25 Alkaline Phosphatase 109 Lactate Dehydrogenase 1114 H Total Protein 6.9 Albumin 4.1 Globulin 2.9 Albumin/Globulin Ratio 1.4 Vitamin B12 818 Folate 11.9 Urine Color Urine Clarity Urine pH Ur Specific [place] Urine Protein Urine Glucose (UA) Urine Ketones Urine Blood Urine Nitrate Urine Bilirubin Urine Urobilinogen Ur Leukocyte Esterase Urine WBC (Auto) Urine RBC (Auto) Urine Bacteria Blood Type Antibody Screen
[2017-03-16] MEDS ORDERED: DEXTROSE IV SCH (14:00)
[2017-03-16] MEDS ORDERED: WATER IV SCH (14:00)
[2017-03-16] MEDS ORDERED: SODIUM BICARBONATE IV SCH (14:00)
[2017-03-16] MEDS: Sodium Bicarbonate 8.4% 150 MEQ in Dextrose 5% In Water 850 ML IV SCH (14:47)
--- NOTE | 2017-03-16 17:25 | CON ---
DATE: 03/16/2017 The patient is a 31-year-old man who presents with nausea, vomiting and uncontrolled hyperte nsion. 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 He initially presented several months ago with acute kidney injury and after treatment with plasmapheresis, he di d not improve. A renal biopsy did reveal that he had chronic kidney disease secondary to thrombotic microangiopathy, vascular nephrosclerosis and segmental global glomerulosclerosis. Because of bleedi ng post biopsy, he had partial embolization of the renal artery. He then was having progressive alfredo l failure, but he was being treated with eculizumab without much success. His platelet count remaine d very well. His renal failure has worsened. He has history of hypertension, no other past history. He does have a history of hearing loss. MEDICATIONS: At home included Soliris transfusions once weekly, Coreg twice a day for hypertension, Norvasc, PhosLo, Pepcid, and hydralazine. PAST SURGICAL HISTORY: Renal biopsy and embolization of his renal artery. He does also have a histo ry of splenectomy at age 4. SOCIAL HISTORY: Negative for smoking, alcohol abuse or illicit drug use. FAMILY HISTORY: Negative for renal disease. REVIEW OF SYSTEMS: Significant for the nausea, vomiting, headaches. He has hearing loss. No visual disturbances, no rashes. He noted somewhat decreased urine output. Others are all negative. PHYSICAL EXAMINATION: GENERAL: He is a well-developed man. VITAL SIGNS: When seen, his blood pressure was 156/98, though it was 190/100 in the ER, temperature 98.2, pulse 97, pulse ox is 98% on room air. HEENT: Anicteric. Mouth was clear. NECK: No JVD. LUNG JC: Clear. HEART: Regular rhythm. He has no murmur. ABDOMEN: Soft, benign. No mass or organomegaly. EXTREMITIES: No peripheral edema. NEUROLOGIC: No focal deficits. BLOOD WORK: Showed hemoglobin 11.1, white count of 15.3. Urinalysis showed 3+ protein, 1+ blood. B UN 58, creatinine 5.3, GFR is 13, potassium 4, CO2 of 15. IMPRESSION: The patient has chronic kidney disease stage V, will need hemodialysis, acute on top of chronic renal disease. He has got atypical hemolytic uremic syndrome, thrombotic microangiopathy and uncontrolled hypertension. PLAN: Will be to start hemodialysis. He will need a dialysis catheter. Would recommend platelet tr ansfusion prior to the catheter insertion. Will follow up. Gustavo Villasenor MD cc: [id number] TT: 03/16/2017 17:24:49 Confirmation # [id number] Dictation # [id number]
[2017-03-16] MEDS ORDERED: Nitroglycerin 50mg in D5W 50 MG/250 ML BOTTLE IV ONE (20:43)
[2017-03-16] MEDS ORDERED: Nitroglycerin 50mg in D5W 50 MG/250 ML BOTTLE IV SCH (21:15)
--- NOTE | 2017-03-17 03:59 | CP.PCM.PN ---
Subjective - Date & Time of Evaluation Date of Evaluation: 03/16/17 Time of Evaluation: 20:00 - Subjective Subjective: Feeling better, less headache Eculizumab given today Objective - Vital Signs/Intake and Output Vital Signs (last 24 hours): Temp Pulse Resp BP Pulse Ox 97.8 F 80 18 136/77 96 03/16/17 20:00 03/17/17 00:00 03/17/17 00:00 03/16/17 23:00 03/17/17 00:00 Intake and Output: 03/16/17 03/17/17 18:59 06:59 Intake Total 924.0 1208.0 Output Total 1325 550 Balance -401.0 658.0 - Medications Medications: Current Medications Carvedilol (Coreg) 25 mg PO BID [facility] Last Admin: 03/16/17 17:11 Dose: 25 mg Famotidine (Pepcid) 20 mg PO BID [facility] Last Admin: 03/16/17 17:12 Dose: 20 mg Hydralazine HCl (Apresoline) 50 mg PO Q6H [facility] Last Admin: 03/16/17 21:58 Dose: 50 mg Sodium Bicarbonate 150 meq/ (Dextrose) 1,000 mls @ 50 mls/hr IV .Q20H [facility] Last Admin: 03/16/17 14:47 Dose: 50 mls/hr Nitroglycerin/Dextrose (Nitroglycerin 50 Mg/250 Ml D5w) 50 mg in 250 mls @ 7.5 mls/hr IV .Q24H [facility]; 25 MCG/MIN PRN Reason: Protocol Last Admin: 03/16/17 21:57 Dose: Not Given Methylprednisolone (Solu-Medrol) 60 mg IVP Q6 [facility] Last Admin: 03/16/17 23:34 Dose: 60 mg Ondansetron HCl (Zofran Inj) 4 mg IVP Q6H PRN PRN Reason: Nausea/Vomiting Last Admin: 03/16/17 05:05 Dose: 4 mg - Labs Labs: 03/16/17 06:24 03/16/17 06:27 PT 13.0 SECONDS (9.7-12.2) H 03/16/17 06:24 INR 1.2 03/16/17 06:24 APTT 29 SECONDS (21-34) 03/16/17 06:24 - Head Exam Head Exam: ATRAUMATIC - Eye Exam Eye Exam: Normal appearance - ENT Exam ENT Exam: Mucous Membranes Dry - Respiratory Exam Respiratory Exam: NORMAL BREATHING PATTERN - Cardiovascular Exam Cardiovascular Exam: +S1, +S2 - GI/Abdominal Exam GI & Abdominal Exam: Normal Bowel Sounds - Extremities Exam Extremities Exam: Normal Inspection - Neurological Exam Neurological Exam: Oriented x3 - Psychiatric Exam Psychiatric exam: Normal Affect, Normal Mood - Skin Skin Exam: Warm Assessment and Plan (1) Hemolytic uremic syndrome Assessment & Plan: eculizumab given today platelet transfusion for HD access s/p ddavp Status: Acute
[2017-03-17] MEDS: MethylPREDNISolone 40 mg Vial IVP SCH ×3 (05:49→19:31)
[2017-03-17 06:48] LABS: ALB/GLOB RATIO 1.5 (1.0-2.1); BILIRUBIN,TOTAL 0.6 mg/dL (0.2-1.3); TOTAL PROTEIN 6.6 g/dL (6.3-8.3)
[2017-03-17 06:49] LABS: CALCIUM 8.9 mg/dl (8.6-10.4); MAGNESIUM 2.4 mg/dL (1.6-2.3); PHOSPHOROUS 5.6 mg/dL (2.5-4.5)
[2017-03-17 06:54] LABS: BASO # 0.1 K/uL (0.0-0.2); BASO % 0.2 % (0.0-2.0); LYMPH # 1.6 K/uL (1.0-4.3); LYMPH % 7.2 % (20.0-40.0); MEAN CELL VOLUME 90.6 fL (80.0-94.0); MEAN CORPUSCULAR HGB CONC 32.1 g/dL (33.0-37.0); MEAN PLATELET VOLUME 8.9 fL (7.2-11.7); MONO # 1.1 K/uL (0.0-0.8); MONO % 4.9 % (0.0-10.0); NRBC % 0.1 % (0.0-2.0); PLATELET COUNT 57 K/uL (130-400); RED CELL DISTRIBUTION WIDTH 16.2 % (11.5-14.5); WHITE BLOOD COUNT 22.5 K/uL (4.8-10.8)
[2017-03-17 06:58] LABS: INR 1.2
[2017-03-17 08:43] LABS: NEUTROPHIL 90 % (50-75); TOTAL CELLS COUNTED 100
[2017-03-17 08:44] LABS: GIANT PLATELETS PRESENT
[2017-03-17 08:45] LABS: LARGE PLATELETS PRESENT
--- NOTE | 2017-03-17 09:14 | CP.PCM.PN ---
Subjective - Date & Time of Evaluation Date of Evaluation: 03/17/17 Time of Evaluation: 09:00 - Subjective Subjective: Patient was seen and examined by me He reported his headache is very mild at this time. Improved. Also denied blurry vision. He no longer has bleeding from his gums/mouth He received additional platelets and DDAVP last night as well as continued IV solumedrol. Also received infusion of Ecluzimab Normally we don't get a response in his platelet count like this, so hopefully he can have a permacath for HD. His creatine still is elevated. He is on a slow bicarb ggt at the moment by nephrology. Objective - Vital Signs/Intake and Output Vital Signs (last 24 hours): Temp Pulse Resp BP Pulse Ox 98.0 F 105 H 20 157/104 H 94 L 03/17/17 08:00 03/17/17 08:50 03/17/17 08:50 03/17/17 09:00 03/17/17 08:50 Intake and Output: 03/17/17 03/17/17 06:59 18:59 Intake Total 1616.0 204 Output Total 1750 0 Balance -134.0 204 - Medications Medications: Current Medications Calcium Acetate (Phoslo) 667 mg PO BIDCC [facility] Carvedilol (Coreg) 25 mg PO BID [facility] Last Admin: 03/17/17 09:00 Dose: 25 mg Famotidine (Pepcid) 20 mg PO BID [facility] Last Admin: 03/16/17 17:12 Dose: 20 mg Hydralazine HCl (Apresoline) 50 mg PO Q6H [facility] Last Admin: 03/17/17 08:55 Dose: 50 mg Sodium Bicarbonate 150 meq/ (Dextrose) 1,000 mls @ 50 mls/hr IV .Q20H [facility] Last Admin: 03/16/17 14:47 Dose: 50 mls/hr Nitroglycerin/Dextrose (Nitroglycerin 50 Mg/250 Ml D5w) 50 mg in 250 mls @ 7.5 mls/hr IV .Q24H [facility]; 25 MCG/MIN PRN Reason: Protocol Last Admin: 03/16/17 21:57 Dose: Not Given Methylprednisolone (Solu-Medrol) 60 mg IVP Q6 [facility] Last Admin: 03/17/17 05:49 Dose: 60 mg Ondansetron HCl (Zofran Inj) 4 mg IVP Q6H PRN PRN Reason: Nausea/Vomiting Last Admin: 03/16/17 05:05 Dose: 4 mg - Labs Labs: 03/17/17 06:24 03/17/17 06:24 PT 13.3 SECONDS (9.7-12.2) H 03/17/17 06:24 INR 1.2 03/17/17 06:24 APTT 26 SECONDS (21-34) 03/17/17 06:24 - Constitutional Appears: No Acute Distress - Head Exam Head Exam: NORMAL INSPECTION, NORMOCEPHALIC - Eye Exam Eye Exam: EOMI - ENT Exam ENT Exam: Mucous Membranes Moist - Respiratory Exam Respiratory Exam: Clear to Ausculation Bilateral, NORMAL BREATHING PATTERN - Cardiovascular Exam Cardiovascular Exam: REGULAR RHYTHM - GI/Abdominal Exam GI & Abdominal Exam: Soft, Normal Bowel Sounds - Neurological Exam Neurological Exam: Alert, Awake, Oriented x3 Neuro motor strength exam: Left Upper Extremity: 5, Right Upper Extremity: 5, Left Lower Extremity: 5, Right Lower Extremity: 5 - Psychiatric Exam Psychiatric exam: Normal Affect, Normal Mood - Skin Skin Exam: Normal Color, Warm. 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 03/16: Today the platelet count increased. Continue with solumedrol and today due for Eculizumab. Continue to monitor. 03/15: As mentioned before he gets weekly infusions of Eculizumab (soliris) per discussion with ER and pharmacy that medication is already at pharmacy as he is due to get this medication tomorrow. Per my discussion with hematology there is some question with regards to the responsiveness of the medication as his platelet count is still severely low - he has easy bleeding. Will give solumedrol IVP 125 x1 now and then 40 TID. Also DDAVP x 1 now. Because platelets are low transfusing 2 now but it will take several hours before it can come. As per Dr. 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 Pt consented to atypical HUS treatment with eculizumab; medication assistance paperwork faxed.Peripheral smear shows schistocytes, LDH was elevated, and pt presented with HTN emergency Immune studies: HIV, MAGDI, Rheumatoid panel, complement studies negative C-anca negative Renal failure, CKD, Nephrotic Kidney Disease 03/17: Creatine remains elevated despite solumedrol and Eculizumab, if platelet count remains stable then hopefully can get permacath 03/15: Renal function is worsening. Creatine is up to 5. It would be difficult to give HD due to such a low plaetelcount. Transfusing right now. 24 hour urine protein [id number], very elevated [employer] Builder, Dr. Villasenor, consulted. Help appreciated. 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 Systolics are 190s and then decreased to 170s. CT scan of the head was negative. Monitor in ICU, might need a continuous drip Norvasc 10 mg po qd Coreg 25 mg po bid Hydralazine 25 mg po TID History of renal hematoa after biopsy 03/16: No abdominal or flank pain today 03/15: He tells us he does not have abdominal pain and no pain on exam of abdomen or flank area Platelet count is low - so if he does have pain will get a stat CT. As mentioned before he had an embolization. History of Pleural Effusion: 03/15: Currently NOT short of breath, however previous admision was an issue. Will check Prophylactic Measures: Pepcid 20 mg po qd Anticoagulation contraindicated due to thrombocytopenia
--- NOTE | 2017-03-17 09:21 | CP.CCUPN ---
<Marcel Nelson - Last Filed: 03/17/17 12:52> CCU Subjective - Physician Review Subjective (Free Text): 03/17/17 12:52 Pt seen and examined at bedside. Pt NPO for Permacath placement today with Dr. Quach. Nitro drip was not controlling pt BP, so he was switched to Nicardipine drip, and started on Clonidine. He remains of bicarb drip. Pt received Soliris and additional one unit of platelets in preparation for procedure today. He will receive dialysis after procedure, as creatinine remains elevated. He admits to mild headache this AM, but of decreased intensity from admission (2/10 on pain scale today). He denies bleeding gums or blurry vision this AM. Critical Care Time Spent (in minutes): 35 CCU Objective - Vital Signs / Intake & Output Vital Signs (Last 4 hours): Vital Signs Temp Pulse Resp BP Pulse Ox 03/17/17 09:00 157/104 H 03/17/17 08:50 105 H 20 94 L 03/17/17 08:40 83 20 92 L 03/17/17 08:30 83 21 93 L 03/17/17 08:20 81 23 94 L 03/17/17 08:10 84 21 93 L 03/17/17 08:08 68 15 157/104 H 93 L 03/17/17 08:00 98.0 F 106 H 15 157/104 H 94 L 03/17/17 07:50 70 12 95 03/17/17 07:40 74 20 94 L 03/17/17 07:30 73 19 95 03/17/17 07:20 107 H 23 92 L 03/17/17 07:10 112 H 12 94 L 03/17/17 07:08 106 H 12 155/94 H 95 03/17/17 07:00 69 16 155/94 H 95 03/17/17 06:50 75 22 95 03/17/17 06:40 72 10 L 95 03/17/17 06:30 80 19 94 L 03/17/17 06:20 91 H 18 95 03/17/17 06:10 76 19 93 L 03/17/17 06:08 68 18 145/89 93 L 03/17/17 06:00 72 22 145/89 96 03/17/17 05:50 78 18 96 03/17/17 05:40 117 H 21 95 03/17/17 05:30 67 14 98 03/17/17 05:20 77 17 94 L 03/17/17 05:10 70 18 95 03/17/17 05:08 72 13 166/94 H 96 Intake and Output (Last 8hrs): Intake & Output 03/16/17 03/17/17 03/17/17 22:59 06:59 14:59 Intake Total 1550.0 544 136 Output Total 675 1450 0 Balance 875.0 -906 136 Weight 177 lb Intake: Intake, IV Amount 556.0 544 136 Right Antecubital 156.0 144 36 Right Hand 400 400 100 Oral 360 Blood Product 584 Apheresis Plts Acda Lr 292 2nd Con Unit [id number] Other 50 Apheresis Plts Acda Lr 50 2nd Con Unit [id number] Output: Urine 675 1450 0 Urine, Voided 675 1450 0 - Physical Exam Head: Positive for: Atraumatic, Normocephalic Pupils: Positive for: PERRL Extroacular Muscles: Positive for: EOMI Conjunctiva: Positive for: Normal Ears: Positive for: Other (pt with hearing aid in left ear) Mouth: Positive for: Moist Mucous Membranes Respiratory/Chest: Positive for: Clear to Auscultation, Good Air Exchange. Negative for: Respiratory Distress, Accessory Muscle Use Cardiovascular: Positive for: Regular Rate and Rhythm, Normal S1, S2 Abdomen: Positive for: Normal Bowel Sounds. Negative for: Tenderness, Distention Neurological: Positive for: GCS=15, CN II-XII Intact, Speech Normal Skin: Positive for: Warm, Dry Psychiatric: Positive for: Alert, Oriented x 3 - Medications Active Medications: Active Medications Generic Name Dose Route Start Last Admin Trade Name Freq PRN Reason Stop Dose Admin Calcium Acetate 667 mg 03/17/17 08:00 Phoslo PO BIDCC GUILLE Carvedilol 25 mg 03/16/17 13:49 03/17/17 09:00 Coreg PO 25 mg BID GUILLE Administration Famotidine 20 mg 03/15/17 18:00 03/16/17 17:12 Pepcid PO 20 mg BID GUILLE Administration Hydralazine HCl 50 mg 03/15/17 21:00 03/17/17 08:55 Apresoline PO 50 mg Q6H GUILLE Administration Sodium Bicarbonate 150 meq/ 1,000 mls @ 50 mls/hr 03/16/17 14:15 03/16/17 14: 47 Dextrose IV 50 mls/hr .Q20H GUILLE Administration Nitroglycerin/Dextrose 50 mg in 250 mls @ 7.5 mls/hr 03/16/17 21:15 03/16/17 21:57 Nitroglycerin 50 Mg/250 Ml D5w IV Not Given .Q24H GUILLE Protocol 25 MCG/MIN Methylprednisolone 60 mg 03/15/17 20:00 03/17/17 05:49 Solu-Medrol IVP 60 mg Q6 GUILLE Administration Ondansetron HCl 4 mg 03/15/17 17:19 03/16/17 05:05 Zofran Inj IVP 4 mg Q6H PRN Administration Nausea/Vomiting - Patient Studies Lab Studies: Microbiology Studies 03/15/17 15:53 MRSA Culture (Admit) - Final Naris MRSA NOT DETECTED Lab Studies 03/17/17 03/17/17 03/17/17 Range/Units 06:24 06:24 06:24 WBC 22.5 H (4.8-10.8) K/uL RBC 3.54 L (4.40-5.90) Mil/uL Hgb 10.3 L (12.0-18.0) g/dL Hct 32.0 L (35.0-51.0) % MCV 90.6 (80.0-94.0) fL MCH 29.0 (27.0-31.0) pg MCHC 32.1 L (33.0-37.0) g/dL RDW 16.2 H (11.5-14.5) % Plt Count 57 L (130-400) K/uL MPV 8.9 (7.2-11.7) fL Neut % (Auto) 87.7 H (50.0-75.0) % Lymph % (Auto) 7.2 L (20.0-40.0) % [place] % (Auto) 4.9 (0.0-10.0) % Eos % (Auto) 0.0 (0.0-4.0) % Baso % (Auto) 0.2 (0.0-2.0) % Neut # 19.7 H (1.8-7.0) K/uL Lymph # 1.6 (1.0-4.3) K/uL [place] # 1.1 H (0.0-0.8) K/uL Eos # 0.0 (0.0-0.7) K/uL Baso # 0.1 (0.0-0.2) K/uL Neutrophils % (Manual) 90 H (50-75) % Lymphocytes % (Manual) 8 L (20-40) % Monocytes % (Manual) 2 (0-10) % Differential Comment Platelet Estimate Decreased L (NORMAL) Large Platelets Present Giant Platelets Present Hypochromasia (manual) Slight Poikilocytosis (manual Slight Anisocytosis (manual) Slight Haptoglobin (43-212) mg/dL PT 13.3 H (9.7-12.2) SECONDS INR 1.2 APTT 26 (21-34) SECONDS Sodium 139 (132-148) mmol/L Potassium 4.0 (3.6-5.2) mmol/L Chloride 104 (98-107) mmol/L Carbon Dioxide 21 L (22-30) mmol/L Anion Gap 18 (10-20) BUN 64 H (9-20) mg/dL Creatinine 5.0 H (0.8-1.5) MG/DL Est GFR ( Amer) 16 Est GFR (Non-Af Amer) 14 Random Glucose 138 H (75-110) mg/dL Calcium 8.9 (8.6-10.4) mg/dl Phosphorus 5.6 H (2.5-4.5) mg/dL Magnesium 2.4 H (1.6-2.3) mg/dL Total Bilirubin 0.6 (0.2-1.3) mg/dL AST 15 L D (17-59) U/L ALT 27 (21-72) U/L Alkaline Phosphatase 81 (38-126) U/L Total Protein 6.6 (6.3-8.3) g/dL Albumin 4.0 (3.5-5.0) g/dL Globulin 2.6 (2.2-3.9) gm/dL Albumin/Globulin Ratio 1.5 (1.0-2.1) 03/16/17 03/16/17 Range/Units 06:27 06:24 WBC (4.8-10.8) K/uL RBC (4.40-5.90) Mil/uL Hgb (12.0-18.0) g/dL Hct (35.0-51.0) % MCV (80.0-94.0) fL MCH (27.0-31.0) pg MCHC (33.0-37.0) g/dL RDW (11.5-14.5) % Plt Count (130-400) K/uL MPV (7.2-11.7) fL Neut % (Auto) (50.0-75.0) % Lymph % (Auto) (20.0-40.0) % [place] % (Auto) (0.0-10.0) % Eos % (Auto) (0.0-4.0) % Baso % (Auto) (0.0-2.0) % Neut # (1.8-7.0) K/uL Lymph # (1.0-4.3) K/uL [place] # (0.0-0.8) K/uL Eos # (0.0-0.7) K/uL Baso # (0.0-0.2) K/uL Neutrophils % (Manual) (50-75) % Lymphocytes % (Manual) (20-40) % Monocytes % (Manual) (0-10) % Differential Comment Platelet Estimate (NORMAL) Large Platelets Giant Platelets Hypochromasia (manual) Poikilocytosis (manual Anisocytosis (manual) Haptoglobin 22 L (43-212) mg/dL PT (9.7-12.2) SECONDS INR APTT (21-34) SECONDS Sodium (132-148) mmol/L Potassium (3.6-5.2) mmol/L Chloride (98-107) mmol/L Carbon Dioxide (22-30) mmol/L Anion Gap (10-20) BUN (9-20) mg/dL Creatinine (0.8-1.5) MG/DL Est GFR ( Amer) Est GFR (Non-Af Amer) Random Glucose (75-110) mg/dL Calcium (8.6-10.4) mg/dl Phosphorus (2.5-4.5) mg/dL Magnesium (1.6-2.3) mg/dL Total Bilirubin (0.2-1.3) mg/dL AST (17-59) U/L ALT (21-72) U/L Alkaline Phosphatase (38-126) U/L Total Protein (6.3-8.3) g/dL Albumin (3.5-5.0) g/dL Globulin (2.2-3.9) gm/dL Albumin/Globulin Ratio (1.0-2.1) Laboratory Results - last 24 hr 03/16/17 03/16/17 03/17/17 06:24 06:27 06:24 WBC 22.5 H RBC 3.54 L Hgb 10.3 L Hct 32.0 L MCV 90.6 MCH 29.0 MCHC 32.1 L RDW 16.2 H Plt Count 57 L MPV 8.9 Neut % (Auto) 87.7 H Lymph % (Auto) 7.2 L [place] % (Auto) 4.9 Eos % (Auto) 0.0 Baso % (Auto) 0.2 Neut # 19.7 H Lymph # 1.6 [place] # 1.1 H Eos # 0.0 Baso # 0.1 Neutrophils % (Manual) 90 H Lymphocytes % (Manual) 8 L Monocytes % (Manual) 2 Differential Comment Platelet Estimate Decreased L Large Platelets Present Giant Platelets Present Hypochromasia (manual) Slight Poikilocytosis (manual Slight Anisocytosis (manual) Slight Haptoglobin 22 L PT INR APTT Sodium Potassium Chloride Carbon Dioxide Anion Gap BUN Creatinine Est GFR ( Amer) Est GFR (Non-Af Amer) Random Glucose Calcium Phosphorus Magnesium Total Bilirubin AST ALT Alkaline Phosphatase Total Protein Albumin Globulin Albumin/Globulin Ratio 03/17/17 03/17/17 06:24 06:24 WBC RBC Hgb Hct MCV MCH MCHC RDW Plt Count MPV Neut % (Auto) Lymph % (Auto) [place] % (Auto) Eos % (Auto) Baso % (Auto) Neut # Lymph # [place] # Eos # Baso # Neutrophils % (Manual) Lymphocytes % (Manual) Monocytes % (Manual) Differential Comment Platelet Estimate Large Platelets Giant Platelets Hypochromasia (manual) Poikilocytosis (manual Anisocytosis (manual) Haptoglobin PT 13.3 H INR 1.2 APTT 26 Sodium 139 Potassium 4.0 Chloride 104 Carbon Dioxide 21 L Anion Gap 18 BUN 64 H Creatinine 5.0 H Est GFR ( Amer) 16 Est GFR (Non-Af Amer) 14 Random Glucose 138 H Calcium 8.9 Phosphorus 5.6 H Magnesium 2.4 H Total Bilirubin 0.6 AST 15 L D ALT 27 Alkaline Phosphatase 81 Total Protein 6.6 Albumin 4.0 Globulin 2.6 Albumin/Globulin Ratio 1.5 Review of Systems - Constitutional Constitutional: absent: Fever, Chills - EENT Eyes: absent: Blurred Vision Ears: absent: Decreased Hearing Nose/Mouth/Throat: absent: Nasal Discharge - Cardiovascular Cardiovascular: absent: Chest Pain, Chest Pain at Rest, Dyspnea - Respiratory Respiratory: absent: Cough, Dyspnea on Exertion - Gastrointestinal Gastrointestinal: absent: Abdominal Pain, Nausea, Vomiting - Genitourinary Genitourinary: absent: Dysuria - Musculoskeletal Musculoskeletal: absent: Back Pain, Numbness, Tingling - Integumentary Integumentary: absent: Bleeding Lesions - Neurological Neurological: Headaches (bilateral, frontal today). absent: Weakness - Endocrine Endocrine: absent: Fatigue, Polydipsia, Polyphagia Critical Care Progress Note - Nutrition Nutrition: Nutrition Category Date Time Status NPO Diet [DIET] Diets 03/17/17 Breakfast Active Assessment/Plan - Assessment and Plan (Free Text) Assessment: 31 M with PMHx of [place] vs atypical HUS, HTN, unresponsive thrombocytopenia, presenting with headache, HTN emergency, thrombocytopenia. Pt responding to platelets/Soliris, and thrombocytopenia improving. Permacath/Dialysis scheduled for today. Plan: Pt status: Admit to ICU Neuro: AAOx3 CT Head (03/15/17): Generalized atrophy. Nonspecific white matter hypodensities within the right parietal lobe. (see full report) Headache - bilateral, frontal - improved when BP controlled Hem/Onc: Atypical HUS Platelet count 57k today, 10k on admission - responded well to 2 units of platelets transfused since admission - Eculizumab (Soliris) given 03/16/17 Given Solumedrol 125mg once in ED, 60mg IVP Q6H; DDAVP x [address] Dr[address] 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 Pt consented to atypical HUS treatment with eculizumab. - H/H currently stable - from previous admission: Bone Marrow biopsy no evidence of myelodysplastic or myeloproliferative syndrome. Peripheral smear shows schistocytes. Immune studies : HIV, MAGDI, Rheumatoid panel, complement studies negative. C-anca negative. CV: HTN SBP 230 on presentation, now better controlled ~ 160 - Nicardipine Drip, Tridil drip discontinued - Coreg 25 mg PO BID - Apresoline 50 mg PO q6h - Start Clonidine 0.2 mg PO BID /Renal: Nephrotic Kidney Disease UA (03/16/17): 3+ protein, 1+ blood, Nitrate/LE negative Bun/Cr Elevated, but stable [employer], Dr. Villasenor, consulted. Help appreciated. - Recommend permacath placement, due to rising creatinine - Dialysis today Hx of Abnormal renal biopsy Left renal Biopsy (10/19): reports consistent with atypical HUS Last admission: IR, Dr. Dorado, performed left renal angiogram with embolization of left kidney Pulm: O2 sat: 99% on rm Air Breathing without difficulty GI: Nausea/Vomiting -non-bilious, non-bloody Zofran 4mg IV Q6H PRN Prophylactic Measures: Pepcid 20 mg po bid Anticoagulation contraindicated due to thrombocytopenia SCDs <Bishnu Sevilla - Last Filed: 03/17/17 14:34> CCU Objective - Vital Signs / Intake & Output Vital Signs (Last 4 hours): Vital Signs Temp Pulse Resp BP Pulse Ox 03/17/17 12:00 98.6 F 03/17/17 11:40 95 H 21 94 L 03/17/17 11:34 90 17 115/68 93 L 03/17/17 11:30 91 H 21 93 L 03/17/17 11:20 102 H 17 94 L 03/17/17 11:19 95 H 17 107/68 92 L 03/17/17 11:10 102 H 21 94 L 03/17/17 11:04 103 H 20 130/66 94 L 03/17/17 11:00 87 19 95 03/17/17 10:50 97 H 19 94 L 03/17/17 10:49 99 H 19 142/79 94 L 03/17/17 10:34 90 11 L 148/80 93 L 03/17/17 10:10 95 H 18 94 L 03/17/17 10:08 78 17 147/98 H 93 L Intake and Output (Last 8hrs): Intake & Output 03/16/17 03/17/17 03/17/17 22:59 06:59 14:59 Intake Total 1550.0 544 466 Output Total 675 1450 200 Balance 875.0 -906 266 Weight 177 lb Intake: IV 50 Intake, IV Amount 556.0 544 416 Right Antecubital 156.0 144 66 Right Hand 400 400 350 Oral 360 Blood Product 584 Apheresis Plts Acda Lr 292 2nd Con Unit [id number] Other 50 Apheresis Plts Acda Lr 50 2nd Con Unit [id number] Output: Urine 675 1450 200 Urine, Voided 675 1450 200 - Medications Active Medications: Active Medications Generic Name Dose Route Start Last Admin Trade Name Freq PRN Reason Stop Dose Admin Calcium Acetate 667 mg 03/17/17 12:00 03/17/17 13:49 Phoslo PO Not Given TIDCC GUILLE Carvedilol 25 mg 03/16/17 13:49 03/17/17 09:00 Coreg PO 25 mg BID GUILLE Administration Clonidine HCl 0.2 mg 03/17/17 10:15 03/17/17 10:23 Catapres PO 0.2 mg BID GUILLE Administration Famotidine 20 mg 03/17/17 11:45 Pepcid PO DAILY GUILLE Hydralazine HCl 50 mg 03/15/17 21:00 03/17/17 08:55 Apresoline PO 50 mg Q6H GUILLE Administration Sodium Bicarbonate 150 meq/ 1,000 mls @ 50 mls/hr 03/16/17 14:15 03/17/17 09: 52 Dextrose IV 50 mls/hr .Q20H GUILLE Administration Nicardipine HCl 25 mg/ Sodium 250 mls @ 50 mls/hr 03/17/17 10:00 03/17/17 11: 30 Chloride IV 0 mg/hr .Q5H GUILLE 0 mls/hr Protocol Titration 5 MG/HR Methylprednisolone 60 mg 03/15/17 20:00 03/17/17 13:51 Solu-Medrol IVP 60 mg Q6 GUILLE Administration Ondansetron HCl 4 mg 03/15/17 17:19 03/16/17 05:05 Zofran Inj IVP 4 mg Q6H PRN Administration Nausea/Vomiting - Patient Studies Lab Studies: Microbiology Studies 03/15/17 15:53 MRSA Culture (Admit) - Final Naris MRSA NOT DETECTED Lab Studies 03/17/17 03/17/17 03/17/17 Range/Units 06:24 06:24 06:24 WBC 22.5 H (4.8-10.8) K/uL RBC 3.54 L (4.40-5.90) Mil/uL Hgb 10.3 L (12.0-18.0) g/dL Hct 32.0 L (35.0-51.0) % MCV 90.6 (80.0-94.0) fL MCH 29.0 (27.0-31.0) pg MCHC 32.1 L (33.0-37.0) g/dL RDW 16.2 H (11.5-14.5) % Plt Count 57 L (130-400) K/uL MPV 8.9 (7.2-11.7) fL Neut % (Auto) 87.7 H (50.0-75.0) % Lymph % (Auto) 7.2 L (20.0-40.0) % [place] % (Auto) 4.9 (0.0-10.0) % Eos % (Auto) 0.0 (0.0-4.0) % Baso % (Auto) 0.2 (0.0-2.0) % Neut # 19.7 H (1.8-7.0) K/uL Lymph # 1.6 (1.0-4.3) K/uL [place] # 1.1 H (0.0-0.8) K/uL Eos # 0.0 (0.0-0.7) K/uL Baso # 0.1 (0.0-0.2) K/uL Neutrophils % (Manual) 90 H (50-75) % Lymphocytes % (Manual) 8 L (20-40) % Monocytes % (Manual) 2 (0-10) % Platelet Estimate Decreased L (NORMAL) Large Platelets Present Giant Platelets Present Hypochromasia (manual) Slight Poikilocytosis (manual Slight Anisocytosis (manual) Slight Haptoglobin (43-212) mg/dL PT 13.3 H (9.7-12.2) SECONDS INR 1.2 APTT 26 (21-34) SECONDS Sodium 139 (132-148) mmol/L Potassium 4.0 (3.6-5.2) mmol/L Chloride 104 (98-107) mmol/L Carbon Dioxide 21 L (22-30) mmol/L Anion Gap 18 (10-20) BUN 64 H (9-20) mg/dL Creatinine 5.0 H (0.8-1.5) MG/DL Est GFR ( Amer) 16 Est GFR (Non-Af Amer) 14 Random Glucose 138 H (75-110) mg/dL Calcium 8.9 (8.6-10.4) mg/dl Phosphorus 5.6 H (2.5-4.5) mg/dL Magnesium 2.4 H (1.6-2.3) mg/dL Total Bilirubin 0.6 (0.2-1.3) mg/dL AST 15 L D (17-59) U/L ALT 27 (21-72) U/L Alkaline Phosphatase 81 (38-126) U/L Total Protein 6.6 (6.3-8.3) g/dL Albumin 4.0 (3.5-5.0) g/dL Globulin 2.6 (2.2-3.9) gm/dL Albumin/Globulin Ratio 1.5 (1.0-2.1) 03/16/17 Range/Units 06:27 WBC (4.8-10.8) K/uL RBC (4.40-5.90) Mil/uL Hgb (12.0-18.0) g/dL Hct (35.0-51.0) % MCV (80.0-94.0) fL MCH (27.0-31.0) pg MCHC (33.0-37.0) g/dL RDW (11.5-14.5) % Plt Count (130-400) K/uL MPV (7.2-11.7) fL Neut % (Auto) (50.0-75.0) % Lymph % (Auto) (20.0-40.0) % [place] % (Auto) (0.0-10.0) % Eos % (Auto) (0.0-4.0) % Baso % (Auto) (0.0-2.0) % Neut # (1.8-7.0) K/uL Lymph # (1.0-4.3) K/uL [place] # (0.0-0.8) K/uL Eos # (0.0-0.7) K/uL Baso # (0.0-0.2) K/uL Neutrophils % (Manual) (50-75) % Lymphocytes % (Manual) (20-40) % Monocytes % (Manual) (0-10) % Platelet Estimate (NORMAL) Large Platelets Giant Platelets Hypochromasia (manual) Poikilocytosis (manual Anisocytosis (manual) Haptoglobin 22 L (43-212) mg/dL PT (9.7-12.2) SECONDS INR APTT (21-34) SECONDS Sodium (132-148) mmol/L Potassium (3.6-5.2) mmol/L Chloride (98-107) mmol/L Carbon Dioxide (22-30) mmol/L Anion Gap (10-20) BUN (9-20) mg/dL Creatinine (0.8-1.5) MG/DL Est GFR ( Amer) Est GFR (Non-Af Amer) Random Glucose (75-110) mg/dL Calcium (8.6-10.4) mg/dl Phosphorus (2.5-4.5) mg/dL Magnesium (1.6-2.3) mg/dL Total Bilirubin (0.2-1.3) mg/dL AST (17-59) U/L ALT (21-72) U/L Alkaline Phosphatase (38-126) U/L Total Protein (6.3-8.3) g/dL Albumin (3.5-5.0) g/dL Globulin (2.2-3.9) gm/dL Albumin/Globulin Ratio (1.0-2.1) Laboratory Results - last 24 hr 03/16/17 03/17/17 03/17/17 06:27 06:24 06:24 WBC 22.5 H RBC 3.54 L Hgb 10.3 L Hct 32.0 L MCV 90.6 MCH 29.0 MCHC 32.1 L RDW 16.2 H Plt Count 57 L MPV 8.9 Neut % (Auto) 87.7 H Lymph % (Auto) 7.2 L [place] % (Auto) 4.9 Eos % (Auto) 0.0 Baso % (Auto) 0.2 Neut # 19.7 H Lymph # 1.6 [place] # 1.1 H Eos # 0.0 Baso # 0.1 Neutrophils % (Manual) 90 H Lymphocytes % (Manual) 8 L Monocytes % (Manual) 2 Platelet Estimate Decreased L Large Platelets Present Giant Platelets Present Hypochromasia (manual) Slight Poikilocytosis (manual Slight Anisocytosis (manual) Slight Haptoglobin 22 L PT INR APTT Sodium 139 Potassium 4.0 Chloride 104 Carbon Dioxide 21 L Anion Gap 18 BUN 64 H Creatinine 5.0 H Est GFR ( Amer) 16 Est GFR (Non-Af Amer) 14 Random Glucose 138 H Calcium 8.9 Phosphorus 5.6 H Magnesium 2.4 H Total Bilirubin 0.6 AST 15 L D ALT 27 Alkaline Phosphatase 81 Total Protein 6.6 Albumin 4.0 Globulin 2.6 Albumin/Globulin Ratio 1.5 03/17/17 06:24 WBC RBC Hgb Hct MCV MCH MCHC RDW Plt Count MPV Neut % (Auto) Lymph % (Auto) [place] % (Auto) Eos % (Auto) Baso % (Auto) Neut # Lymph # [place] # Eos # Baso # Neutrophils % (Manual) Lymphocytes % (Manual) Monocytes % (Manual) Platelet Estimate Large Platelets Giant Platelets Hypochromasia (manual) Poikilocytosis (manual Anisocytosis (manual) Haptoglobin PT 13.3 H INR 1.2 APTT 26 Sodium Potassium Chloride Carbon Dioxide Anion Gap BUN Creatinine Est GFR ( Amer) Est GFR (Non-Af Amer) Random Glucose Calcium Phosphorus Magnesium Total Bilirubin AST ALT Alkaline Phosphatase Total Protein Albumin Globulin Albumin/Globulin Ratio Critical Care Progress Note - Nutrition Nutrition: Nutrition Category Date Time Status NPO Diet [DIET] Diets 03/17/17 Breakfast Active Attending/Attestation - Attestation I have personally seen and examined this patient.: Yes I have fully participated in the care of the patient.: Yes I have reviewed all pertinent clinical information: Yes Notes (Text): 03/17/17 14:01 I have seen and examined the patient. Medical records, lab studies, and imaging were reviewed by me and a management plan was formulated on multidisciplinary rounds with resident Dr. Nelson. I agree with their above documented assessment and plan. Patient having permacath placed for eventual need for dialysis. Critical Care Time 35 minutes. Multi-disciplinary rounds were performed with house staff, nursing, speech therapy, respiratory therapy, pharmacy and nutrition with integrated input from the primary team/attending and other consulting services. The documented time is cumulative and includes review of patient data/exams/labs/chart review and examination of the patient on rounds and throughout the day; time is exclusive of any procedures or teaching time. 03/17/17 14:12
[2017-03-17] MEDS: Sodium Bicarbonate 8.4% 150 MEQ in Dextrose 5% In Water 850 ML IV SCH (09:52)
--- NOTE | 2017-03-17 10:05 | CP.PCM.PN ---
Subjective - Date & Time of Evaluation Date of Evaluation: 03/17/17 Time of Evaluation: 10:02 - Subjective Subjective: Awaiting IJ cath, then dialysis Met. acidosis corrected with bicarb drip Started on steroids, HTN uncontrolled Needs increased BP control Objective - Vital Signs/Intake and Output Vital Signs (last 24 hours): Temp Pulse Resp BP Pulse Ox 98.0 F 77 21 180/109 H 95 03/17/17 08:00 03/17/17 09:40 03/17/17 09:40 03/17/17 09:08 03/17/17 09:40 Intake and Output: 03/17/17 03/17/17 06:59 18:59 Intake Total 1616.0 204 Output Total 1750 0 Balance -134.0 204 - Medications Medications: Current Medications Calcium Acetate (Phoslo) 667 mg PO TIDCC GUILLE Carvedilol (Coreg) 25 mg PO BID [facility] Last Admin: 03/17/17 09:00 Dose: 25 mg Famotidine (Pepcid) 20 mg PO BID [facility] Last Admin: 03/16/17 17:12 Dose: 20 mg Hydralazine HCl (Apresoline) 50 mg PO Q6H GUILLE Last Admin: 03/17/17 08:55 Dose: 50 mg Sodium Bicarbonate 150 meq/ (Dextrose) 1,000 mls @ 50 mls/hr IV .Q20H GUILLE Last Admin: 03/17/17 09:52 Dose: 50 mls/hr Nitroglycerin/Dextrose (Nitroglycerin 50 Mg/250 Ml D5w) 50 mg in 250 mls @ 7.5 mls/hr IV .Q24H GUILLE; 25 MCG/MIN PRN Reason: Protocol Last Admin: 03/16/17 21:57 Dose: Not Given Nicardipine HCl 25 mg/ Sodium (Chloride) 250 mls @ 50 mls/hr IV .Q5H GUILLE; 5 MG/ HR PRN Reason: Protocol Methylprednisolone (Solu-Medrol) 60 mg IVP Q6 GUILLE Last Admin: 03/17/17 05:49 Dose: 60 mg Ondansetron HCl (Zofran Inj) 4 mg IVP Q6H PRN PRN Reason: Nausea/Vomiting Last Admin: 03/16/17 05:05 Dose: 4 mg - Labs Labs: 03/17/17 06:24 03/17/17 06:24 PT 13.3 SECONDS (9.7-12.2) H 03/17/17 06:24 INR 1.2 03/17/17 06:24 APTT 26 SECONDS (21-34) 03/17/17 06:24 - Constitutional Appears: No Acute Distress, Chronically Ill - Head Exam Head Exam: ATRAUMATIC, NORMAL INSPECTION - Eye Exam Eye Exam: EOMI, Normal appearance - Neck Exam Neck Exam: Normal Inspection. absent: Tenderness - Respiratory Exam Respiratory Exam: Clear to Ausculation Bilateral, NORMAL BREATHING PATTERN - Cardiovascular Exam Cardiovascular Exam: REGULAR RHYTHM, +S1 - GI/Abdominal Exam GI & Abdominal Exam: Soft. absent: Tenderness - Extremities Exam Extremities Exam: Normal Inspection. absent: Tenderness - Neurological Exam Neurological Exam: Alert, CN II-XII Intact - Skin Skin Exam: Dry, Warm Assessment and Plan (1) Hypertensive chronic kidney disease with stage 5 chronic kidney disease or end stage renal disease Status: Acute (2) End stage renal disease Status: Acute (3) Atypical hemolytic uremic syndrome Status: Acute (4) Malignant essential hypertension Status: Acute - Assessment and Plan (Free Text) Plan: Add clonidine IJ cath then HD
[2017-03-17] MEDS: niCARdipine IV 25 MG in Sodium Chloride 0.9% 240 ML IV SCH ×3 (10:15→20:00)
[2017-03-17] MEDS ORDERED: Propofol 10 mg/ml Inj (20 ML) ONE ×2 (14:14→15:03)
[2017-03-17] MEDS ORDERED: Midazolam 2 MG/2 ML VIAL ONE ×2 (14:14→14:43)
[2017-03-17] MEDS ORDERED: Sodium Chloride 0.9% 500 ML IV ONE (14:19)
[2017-03-17] MEDS ORDERED: Lactated Ringer's 1,000 ML IV ONE (14:19)
[2017-03-17] MEDS ORDERED: ceFAZolin IV 2 gm in Dextrose 1 GM/50 ML BAG IVPB ONE (15:01)
[2017-03-17] MEDS ORDERED: Lidocaine 1% Inj (20ml) ONE (15:01)
--- NOTE | 2017-03-17 15:24 | PCM.SURG1 ---
Surgeon's Initial Post Op Note - Surgeon's Notes Surgeon: Dr. Quach Technical Project Coordinator: Dr. Feliz PGY-2 Type of Anesthesia: IV Sedation, Local Pre-Operative Diagnosis: Renal failure requiring dialysis Operative Findings: placement confirmed via C-arm X-ray Post-Operative Diagnosis: Renal failure requiring dialysis Operation Performed: Insertion of Permacath into Right IJ Specimen/Specimens Removed: none Estimated Blood Loss: EBL {In ML}: 20 Blood Products Given: N/A Drains Used: No Drains Post-Op Condition: Fair Date of Surgery/Procedure: 03/17/17 Time of Surgery/Procedure: 15:25
[2017-03-17] MEDS ORDERED: Oxycodone/Acetaminophen 5/325 mg Tab PO PRN (15:29)
--- NOTE | 2017-03-17 16:07 | RAD ---
HISTORY: Right portacath placement COMPARISON: None available TECHNIQUE: Chest, one view. FINDINGS: Right-sided dialysis catheter extends the cavoatrial junction/ proximal right atrium. Examination limited by patient obliquity. LUNGS: Mild pulmonary venous congestion. Please note that chest x-ray has limited sensitivity for the detection of pulmonary masses. PLEURA: No significant pleural effusion identified. No definite pneumothorax . CARDIOVASCULAR: Cardiomegaly. OSSEOUS STRUCTURES: No acute osseous abnormality identified. VISUALIZED UPPER ABDOMEN: Unremarkable. OTHER FINDINGS: None. IMPRESSION: Mild pulmonary venous congestion. Cardiomegaly. Right sided dialysis catheter.
--- NOTE | 2017-03-17 17:54 | CP.PCM.PN ---
Subjective - Date & Time of Evaluation Date of Evaluation: 03/17/17 Time of Evaluation: 15:00 - Subjective Subjective: Seen on dialysis, no complaints. Objective - Vital Signs/Intake and Output Vital Signs (last 24 hours): Temp Pulse Resp BP Pulse Ox 98.4 F 72 12 153/90 H 97 03/17/17 16:20 03/17/17 17:30 03/17/17 17:20 03/17/17 17:30 03/17/17 17:30 Intake and Output: 03/17/17 03/17/17 06:59 18:59 Intake Total 1616.0 736 Output Total 1750 600 Balance -134.0 136 - Medications Medications: Current Medications Calcium Acetate (Phoslo) 667 mg PO TIDCC [facility] Last Admin: 03/17/17 13:49 Dose: Not Given Carvedilol (Coreg) 25 mg PO BID [facility] Last Admin: 03/17/17 09:00 Dose: 25 mg Clonidine HCl (Catapres) 0.2 mg PO BID [facility] Last Admin: 03/17/17 10:23 Dose: 0.2 mg Famotidine (Pepcid) 20 mg PO DAILY [facility] Hydralazine HCl (Apresoline) 50 mg PO Q6H [facility] Last Admin: 03/17/17 08:55 Dose: 50 mg Sodium Bicarbonate 150 meq/ (Dextrose) 1,000 mls @ 50 mls/hr IV .Q20H [facility] Last Admin: 03/17/17 09:52 Dose: 50 mls/hr Nicardipine HCl 25 mg/ Sodium (Chloride) 250 mls @ 50 mls/hr IV .Q5H [facility]; 5 MG/ HR PRN Reason: Protocol Last Admin: 03/17/17 16:35 Dose: Not Given Methylprednisolone (Solu-Medrol) 60 mg IVP Q6 [facility] Last Admin: 03/17/17 13:51 Dose: 60 mg Ondansetron HCl (Zofran Inj) 4 mg IVP Q6H PRN PRN Reason: Nausea/Vomiting Last Admin: 03/16/17 05:05 Dose: 4 mg Oxycodone/Acetaminophen (Percocet 5/325 Mg Tab) 1 tab PO Q4H PRN PRN Reason: Pain, moderate (4-7) Stop: 03/20/17 15:30 - Labs Labs: 03/17/17 06:24 03/17/17 06:24 PT 13.3 SECONDS (9.7-12.2) H 03/17/17 06:24 INR 1.2 03/17/17 06:24 APTT 26 SECONDS (21-34) 03/17/17 06:24 - Head Exam Head Exam: ATRAUMATIC - Eye Exam Eye Exam: Normal appearance - ENT Exam ENT Exam: Mucous Membranes Dry - Respiratory Exam Respiratory Exam: NORMAL BREATHING PATTERN - Cardiovascular Exam Cardiovascular Exam: +S1, +S2 - GI/Abdominal Exam GI & Abdominal Exam: Normal Bowel Sounds Assessment and Plan (1) Hemolytic uremic syndrome Assessment & Plan: s/p eculizumab, platelets and DDAVP no further bleeding Status: Acute
--- NOTE | 2017-03-17 18:23 | OP ---
PROCEDURE DATE: 03/17/2017 PREOPERATIVE DIAGNOSIS: Renal failure. POSTOPERATIVE DIAGNOSIS: Renal failure. PROCEDURE CARRIED OUT: Placement of Perm-A-Cath right jugular vein with C-arm fluoroscopy and ultras ound-guided puncture for micropuncture technique. SURGEON: Abdelrahman Quach Jr., MD CHILDCARE WORKER: Dr. Feliz, resident. ANESTHESIOLOGIST: ____, PARLIAMENTARY ARCHIVIST INDICATIONS: The patient is a young man with renal insufficiency who requires dialysis with multiple problems with his coagulation hematology, etc. OPERATIVE FINDINGS: Catheter was inserted uneventfully via the jugular vein. PROCEDURE: The patient was given local anesthesia. Using ultrasound guidance and a micropuncture te [place], right jugular vein was cannulated. Under fluoroscopic control, the guidewire was advanced c entrally. This was subsequently exchanged for a larger wire and this appreciated which was advanced in the level of the superior vena cava. The catheter was then deployed with excellent flow in both d irections. It was then secured to the skin with silk and flushed with heparinized saline. OPERATION CARRIED OUT: Perm-A-Cath, right jugular vein with C-arm fluoroscopy and ultrasound-guided puncture. Ultrasound image of ____ vein was approximately 18 mm in diameter with normal compressibility and no evidence of intraluminal thrombosis. Abdelrahman Quach Jr., MD cc: 56 TT: 03/17/2017 18:22:33 jn
[2017-03-18] MEDS: MethylPREDNISolone 40 mg Vial IVP SCH ×4 (00:27→17:48)
[2017-03-18] MEDS: niCARdipine IV 25 MG in Sodium Chloride 0.9% 240 ML IV SCH ×4 (00:28→17:02)
[2017-03-18] MEDS: Sodium Bicarbonate 8.4% 150 MEQ in Dextrose 5% In Water 850 ML IV SCH (06:00)
[2017-03-18 06:20] LABS: MONO # 0.5 K/uL (0.0-0.8); NRBC % 0.3 % (0.0-2.0); WHITE BLOOD COUNT 12.1 K/uL (4.8-10.8)
--- NOTE | 2017-03-18 06:31 | CP.CCUPN ---
<Marcel Nelson - Last Filed: 03/18/17 10:56> CCU Subjective - Physician Review Subjective (Free Text): 03/18/17 06:28 Pt seen and examined at bedside. Pt s/p Permacath placement and dialysis. He reports tolerating both procedures well. Minimal bloody drainage at site, and no overt bleeding overnight. Platelets at 33k this AM. Blood pressure well controlled overnight. He denies headache, blurry vision, bleeding gums, abd pain , n/v/d. Critical Care Time Spent (in minutes): 35 CCU Objective - Vital Signs / Intake & Output Vital Signs (Last 4 hours): Vital Signs Pulse Resp BP Pulse Ox 03/18/17 04:00 68 18 96 03/18/17 03:59 73 16 131/82 97 03/18/17 03:48 109/69 03/18/17 02:59 105/60 Intake and Output (Last 8hrs): Intake & Output 03/17/17 03/17/17 03/18/17 14:59 22:59 06:59 Intake Total 516 940 500 Output Total 600 200 500 Balance -84 740 0 Weight 80 lb 12.8 oz Intake: IV 50 Intake, IV Amount 466 350 300 Right Antecubital 66 Right Hand 400 350 300 Oral 590 200 Output: Urine 600 200 500 Urine, Voided 600 200 500 Other: # Bowel Movements 0 0 - Physical Exam Head: Positive for: Atraumatic, Normocephalic Pupils: Positive for: PERRL Extroacular Muscles: Positive for: EOMI Conjunctiva: Positive for: Normal Ears: Positive for: Other (pt with hearing aid in left ear) Mouth: Positive for: Moist Mucous Membranes Neck: Positive for: Other (permacath noted in right IJ; dressing w mild bloody drainage) Respiratory/Chest: Positive for: Clear to Auscultation, Good Air Exchange. Negative for: Respiratory Distress, Accessory Muscle Use Cardiovascular: Positive for: Regular Rate and Rhythm, Normal S1, S2 Abdomen: Positive for: Normal Bowel Sounds. Negative for: Tenderness, Distention Neurological: Positive for: GCS=15, CN II-XII Intact, Speech Normal Skin: Positive for: Warm, Dry Psychiatric: Positive for: Alert, Oriented x 3 - Medications Active Medications: Active Medications Generic Name Dose Route Start Last Admin Trade Name Freq PRN Reason Stop Dose Admin Calcium Acetate 667 mg 03/17/17 12:00 03/17/17 19:35 Phoslo PO 667 mg TIDCC [facility] Administration Carvedilol 25 mg 03/16/17 13:49 03/17/17 19:37 Coreg PO 25 mg BID [facility] Administration Clonidine HCl 0.2 mg 03/17/17 10:15 03/17/17 19:31 Catapres PO 0.2 mg BID [facility] Administration Famotidine 20 mg 03/17/17 11:45 03/17/17 19:31 Pepcid PO 20 mg DAILY [facility] Administration Hydralazine HCl 50 mg 03/15/17 21:00 03/18/17 03:50 Apresoline PO 50 mg Q6H [facility] Administration Sodium Bicarbonate 150 meq/ 1,000 mls @ 50 mls/hr 03/16/17 14:15 03/18/17 06: 00 Dextrose IV Not Given .Q20H [facility] Nicardipine HCl 25 mg/ Sodium 250 mls @ 50 mls/hr 03/17/17 10:00 03/18/17 05: 59 Chloride IV Not Given .Q5H [facility] Protocol 5 MG/HR Methylprednisolone 60 mg 03/15/17 20:00 03/18/17 06:01 Solu-Medrol IVP 60 mg Q6 [facility] Administration Ondansetron HCl 4 mg 03/15/17 17:19 03/16/17 05:05 Zofran Inj IVP 4 mg Q6H PRN Administration Nausea/Vomiting Oxycodone/Acetaminophen 1 tab 03/17/17 15:29 Percocet 5/325 Mg Tab PO 03/20/17 15:30 Q4H PRN Pain, moderate (4-7) - Patient Studies Lab Studies: Lab Studies 03/17/17 03/17/17 03/17/17 Range/Units 16:31 16:31 06:24 WBC (4.8-10.8) K/uL RBC (4.40-5.90) Mil/uL Hgb (12.0-18.0) g/dL Hct (35.0-51.0) % MCV (80.0-94.0) fL MCH (27.0-31.0) pg MCHC (33.0-37.0) g/dL RDW (11.5-14.5) % Plt Count (130-400) K/uL MPV (7.2-11.7) fL Neut % (Auto) (50.0-75.0) % Lymph % (Auto) (20.0-40.0) % Laurens % (Auto) (0.0-10.0) % Eos % (Auto) (0.0-4.0) % Baso % (Auto) (0.0-2.0) % Neut # (1.8-7.0) K/uL Lymph # (1.0-4.3) K/uL Laurens # (0.0-0.8) K/uL Eos # (0.0-0.7) K/uL Baso # (0.0-0.2) K/uL Neutrophils % (Manual) (50-75) % Lymphocytes % (Manual) (20-40) % Monocytes % (Manual) (0-10) % Platelet Estimate (NORMAL) Large Platelets Giant Platelets Hypochromasia (manual) Poikilocytosis (manual Anisocytosis (manual) Haptoglobin (43-212) mg/dL PT 13.3 H (9.7-12.2) SECONDS INR 1.2 APTT 26 (21-34) SECONDS Sodium (132-148) mmol/L Potassium (3.6-5.2) mmol/L Chloride (98-107) mmol/L Carbon Dioxide (22-30) mmol/L Anion Gap (10-20) BUN (9-20) mg/dL Creatinine (0.8-1.5) MG/DL Est GFR ( Amer) Est GFR (Non-Af Amer) Random Glucose (75-110) mg/dL Calcium (8.6-10.4) mg/dl Phosphorus (2.5-4.5) mg/dL Magnesium (1.6-2.3) mg/dL Total Bilirubin (0.2-1.3) mg/dL AST (17-59) U/L ALT (21-72) U/L Alkaline Phosphatase (38-126) U/L Total Protein (6.3-8.3) g/dL Albumin (3.5-5.0) g/dL Globulin (2.2-3.9) gm/dL Albumin/Globulin Ratio (1.0-2.1) Hep Bs Antigen Negative (NEGATIVE) Hep Bs Antibody Negative (NEGATIVE) Hep B Core IgM Ab Negative (NEGATIVE) Hepatitis C Antibody Negative (NEGATIVE) 03/17/17 03/17/17 03/16/17 Range/Units 06:24 06:24 06:27 WBC 22.5 H (4.8-10.8) K/uL RBC 3.54 L (4.40-5.90) Mil/uL Hgb 10.3 L (12.0-18.0) g/dL Hct 32.0 L (35.0-51.0) % MCV 90.6 (80.0-94.0) fL MCH 29.0 (27.0-31.0) pg MCHC 32.1 L (33.0-37.0) g/dL RDW 16.2 H (11.5-14.5) % Plt Count 57 L (130-400) K/uL MPV 8.9 (7.2-11.7) fL Neut % (Auto) 87.7 H (50.0-75.0) % Lymph % (Auto) 7.2 L (20.0-40.0) % Laurens % (Auto) 4.9 (0.0-10.0) % Eos % (Auto) 0.0 (0.0-4.0) % Baso % (Auto) 0.2 (0.0-2.0) % Neut # 19.7 H (1.8-7.0) K/uL Lymph # 1.6 (1.0-4.3) K/uL Laurens # 1.1 H (0.0-0.8) K/uL Eos # 0.0 (0.0-0.7) K/uL Baso # 0.1 (0.0-0.2) K/uL Neutrophils % (Manual) 90 H (50-75) % Lymphocytes % (Manual) 8 L (20-40) % Monocytes % (Manual) 2 (0-10) % Platelet Estimate Decreased L (NORMAL) Large Platelets Present Giant Platelets Present Hypochromasia (manual) Slight Poikilocytosis (manual Slight Anisocytosis (manual) Slight Haptoglobin 22 L (43-212) mg/dL PT (9.7-12.2) SECONDS INR APTT (21-34) SECONDS Sodium 139 (132-148) mmol/L Potassium 4.0 (3.6-5.2) mmol/L Chloride 104 (98-107) mmol/L Carbon Dioxide 21 L (22-30) mmol/L Anion Gap 18 (10-20) BUN 64 H (9-20) mg/dL Creatinine 5.0 H (0.8-1.5) MG/DL Est GFR ( Amer) 16 Est GFR (Non-Af Amer) 14 Random Glucose 138 H (75-110) mg/dL Calcium 8.9 (8.6-10.4) mg/dl Phosphorus 5.6 H (2.5-4.5) mg/dL Magnesium 2.4 H (1.6-2.3) mg/dL Total Bilirubin 0.6 (0.2-1.3) mg/dL AST 15 L D (17-59) U/L ALT 27 (21-72) U/L Alkaline Phosphatase 81 (38-126) U/L Total Protein 6.6 (6.3-8.3) g/dL Albumin 4.0 (3.5-5.0) g/dL Globulin 2.6 (2.2-3.9) gm/dL Albumin/Globulin Ratio 1.5 (1.0-2.1) Hep Bs Antigen (NEGATIVE) Hep Bs Antibody (NEGATIVE) Hep B Core IgM Ab (NEGATIVE) Hepatitis C Antibody (NEGATIVE) Laboratory Results - last 24 hr 03/16/17 03/17/17 03/17/17 06:27 06:24 06:24 WBC 22.5 H RBC 3.54 L Hgb 10.3 L Hct 32.0 L MCV 90.6 MCH 29.0 MCHC 32.1 L RDW 16.2 H Plt Count 57 L MPV 8.9 Neut % (Auto) 87.7 H Lymph % (Auto) 7.2 L Laurens % (Auto) 4.9 Eos % (Auto) 0.0 Baso % (Auto) 0.2 Neut # 19.7 H Lymph # 1.6 Laurens # 1.1 H Eos # 0.0 Baso # 0.1 Neutrophils % (Manual) 90 H Lymphocytes % (Manual) 8 L Monocytes % (Manual) 2 Platelet Estimate Decreased L Large Platelets Present Giant Platelets Present Hypochromasia (manual) Slight Poikilocytosis (manual Slight Anisocytosis (manual) Slight Haptoglobin 22 L PT INR APTT Sodium 139 Potassium 4.0 Chloride 104 Carbon Dioxide 21 L Anion Gap 18 BUN 64 H Creatinine 5.0 H Est GFR ( Amer) 16 Est GFR (Non-Af Amer) 14 Random Glucose 138 H Calcium 8.9 Phosphorus 5.6 H Magnesium 2.4 H Total Bilirubin 0.6 AST 15 L D ALT 27 Alkaline Phosphatase 81 Total Protein 6.6 Albumin 4.0 Globulin 2.6 Albumin/Globulin Ratio 1.5 Hep Bs Antigen Hep Bs Antibody Hep B Core IgM Ab Hepatitis C Antibody 03/17/17 03/17/17 03/17/17 06:24 16:31 16:31 WBC RBC Hgb Hct MCV MCH MCHC RDW Plt Count MPV Neut % (Auto) Lymph % (Auto) Laurens % (Auto) Eos % (Auto) Baso % (Auto) Neut # Lymph # Laurens # Eos # Baso # Neutrophils % (Manual) Lymphocytes % (Manual) Monocytes % (Manual) Platelet Estimate Large Platelets Giant Platelets Hypochromasia (manual) Poikilocytosis (manual Anisocytosis (manual) Haptoglobin PT 13.3 H INR 1.2 APTT 26 Sodium Potassium Chloride Carbon Dioxide Anion Gap BUN Creatinine Est GFR ( Amer) Est GFR (Non-Af Amer) Random Glucose Calcium Phosphorus Magnesium Total Bilirubin AST ALT Alkaline Phosphatase Total Protein Albumin Globulin Albumin/Globulin Ratio Hep Bs Antigen Negative Hep Bs Antibody Negative Hep B Core IgM Ab Negative Hepatitis C Antibody Negative Critical Care Progress Note - Nutrition Nutrition: Nutrition Category Date Time Status Liquid Diet [DIET] Diets 03/17/17 Dinner Active Assessment/Plan - Assessment and Plan (Free Text) Assessment: 31 M with PMHx of [place] vs atypical HUS, HTN, unresponsive thrombocytopenia, presenting with headache, HTN emergency, thrombocytopenia. Pt responding to platelets/Soliris, and thrombocytopenia improving. S/p POD#1 Permacath placement ; First Dialysis yesterday. Plan: Pt status: Transfer to med/surg Neuro: AAOx3 CT Head (03/15/17): Generalized atrophy. Nonspecific white matter hypodensities within the right parietal lobe. (see full report) Headache on admission - bilateral, frontal - improved when BP controlled Hem/Onc: Atypical HUS Platelet count 33k today, 10k on admission - responded well to 2 units of platelets transfused since admission - Eculizumab (Soliris) given 03/16/17 - monitor, tomorrow AM, if further drop consider transfusion Given Solumedrol 125mg once in ED; DDAVP x 1 - continue Solumedrol 60mg IVP Q6H Dr. 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 Pt consented to atypical HUS treatment with eculizumab. - H/H currently stable - from previous admission: Bone Marrow biopsy no evidence of myelodysplastic or myeloproliferative syndrome. Peripheral smear shows schistocytes. Immune studies : HIV, MAGDI, Rheumatoid panel, complement studies negative. C-anca negative. CV: HTN SBP 230 on presentation, now well controlled after addition of clonidine PO - Nicardipine and Tridil drip discontinued - Coreg 25 mg PO BID - Apresoline 50 mg PO q6h - Clonidine 0.2 mg PO BID /Renal: Nephrotic Kidney Disease UA (03/16/17): 3+ protein, 1+ blood, Nitrate/LE negative s/p permacath placement, initial dialysis Bun/Cr elevated, but decreased s/p dialysis Cloud Engagement Partner, Dr. Villasenor, consulted. Help appreciated. - Recommend permacath placement, due to rising creatinine - start Phos-lo 667mg PO TIDCC Hx of Abnormal renal biopsy Left renal Biopsy (10/19): reports consistent with atypical HUS Last admission: IR, Dr. Dorado, performed left renal angiogram with embolization of left kidney Pulm: O2 sat: 96% on rm Air Breathing without difficulty GI: Nausea/Vomiting -non-bilious, non-bloody Zofran 4mg IV Q6H PRN Prophylactic Measures: Pepcid 20 mg po bid Anticoagulation contraindicated due to thrombocytopenia SCDs <Bishnu Sevilla - Last Filed: 03/18/17 13:18> CCU Objective - Vital Signs / Intake & Output Vital Signs (Last 4 hours): Vital Signs Temp Pulse Resp BP Pulse Ox 03/18/17 12:00 97.9 F 70 16 136/67 95 03/18/17 09:22 126/70 Intake and Output (Last 8hrs): Intake & Output 03/17/17 03/18/17 03/18/17 22:59 06:59 14:59 Intake Total 940 650 660 Output Total 200 500 300 Balance 740 150 360 Weight 80 lb 12.8 oz 177 lb 7.554 oz Intake: Intake, IV Amount 350 450 0 Right Hand 350 450 0 Oral 590 200 660 Output: Urine 200 500 300 Urine, Voided 200 500 300 Other: # Bowel Movements 0 0 - Medications Active Medications: Active Medications Generic Name Dose Route Start Last Admin Trade Name Freq PRN Reason Stop Dose Admin Calcium Acetate 667 mg 03/17/17 12:00 03/18/17 11:51 Phoslo PO 667 mg TIDCC [facility] Administration Carvedilol 25 mg 03/16/17 13:49 03/18/17 09:22 Coreg PO 25 mg BID [facility] Administration Clonidine HCl 0.2 mg 03/17/17 10:15 03/18/17 09:22 Catapres PO 0.2 mg BID [facility] Administration Famotidine 20 mg 03/17/17 11:45 03/18/17 09:22 Pepcid PO 20 mg DAILY [facility] Administration Hydralazine HCl 50 mg 03/15/17 21:00 03/18/17 09:22 Apresoline PO 50 mg Q6H [facility] Administration Nicardipine HCl 25 mg/ Sodium 250 mls @ 50 mls/hr 03/17/17 10:00 03/18/17 05: 59 Chloride IV Not Given .Q5H [facility] Protocol 5 MG/HR Methylprednisolone 60 mg 03/15/17 20:00 03/18/17 11:50 Solu-Medrol IVP 60 mg Q6 [facility] Administration Ondansetron HCl 4 mg 03/15/17 17:19 03/16/17 05:05 Zofran Inj IVP 4 mg Q6H PRN Administration Nausea/Vomiting Oxycodone/Acetaminophen 1 tab 03/17/17 15:29 Percocet 5/325 Mg Tab PO 03/20/17 15:30 Q4H PRN Pain, moderate (4-7) - Patient Studies Lab Studies: Lab Studies 03/18/17 03/18/17 03/17/17 Range/Units 06:15 06:15 16:31 WBC 12.1 H (4.8-10.8) K/uL RBC 3.65 L (4.40-5.90) Mil/uL Hgb 10.7 L (12.0-18.0) g/dL Hct 32.9 L (35.0-51.0) % MCV 90.2 (80.0-94.0) fL MCH 29.3 (27.0-31.0) pg MCHC 32.5 L (33.0-37.0) g/dL RDW 15.3 H (11.5-14.5) % Plt Count 33 L D (130-400) K/uL MPV 8.8 (7.2-11.7) fL Neut % (Auto) 76.5 H (50.0-75.0) % Lymph % (Auto) 19.0 L (20.0-40.0) % Laurens % (Auto) 4.3 (0.0-10.0) % Eos % (Auto) 0.1 (0.0-4.0) % Baso % (Auto) 0.1 (0.0-2.0) % Neut # 9.2 H (1.8-7.0) K/uL Lymph # 2.3 (1.0-4.3) K/uL Laurens # 0.5 (0.0-0.8) K/uL Eos # 0.0 (0.0-0.7) K/uL Baso # 0.0 (0.0-0.2) K/uL Differential Comment Sodium 134 (132-148) mmol/L Potassium 3.8 (3.6-5.2) mmol/L Chloride 92 L (98-107) mmol/L Carbon Dioxide 31 H (22-30) mmol/L Anion Gap 15 (10-20) BUN 52 H (9-20) mg/dL Creatinine 3.5 H (0.8-1.5) MG/DL Est GFR ( Amer) 25 Est GFR (Non-Af Amer) 20 Random Glucose 130 H (75-110) mg/dL Calcium 8.1 L (8.6-10.4) mg/dl Phosphorus 5.2 H (2.5-4.5) mg/dL Magnesium 2.1 (1.6-2.3) mg/dL Total Bilirubin 0.7 (0.2-1.3) mg/dL AST 23 (17-59) U/L ALT 26 (21-72) U/L Alkaline Phosphatase 76 (38-126) U/L Total Protein 6.2 L (6.3-8.3) g/dL Albumin 3.6 (3.5-5.0) g/dL Globulin 2.6 (2.2-3.9) gm/dL Albumin/Globulin Ratio 1.4 (1.0-2.1) Hep Bs Antigen (NEGATIVE) Hep Bs Antibody Negative (NEGATIVE) Hep B Core IgM Ab (NEGATIVE) Hepatitis C Antibody (NEGATIVE) 03/17/17 Range/Units 16:31 WBC (4.8-10.8) K/uL RBC (4.40-5.90) Mil/uL Hgb (12.0-18.0) g/dL Hct (35.0-51.0) % MCV (80.0-94.0) fL MCH (27.0-31.0) pg MCHC (33.0-37.0) g/dL RDW (11.5-14.5) % Plt Count (130-400) K/uL MPV (7.2-11.7) fL Neut % (Auto) (50.0-75.0) % Lymph % (Auto) (20.0-40.0) % Laurens % (Auto) (0.0-10.0) % Eos % (Auto) (0.0-4.0) % Baso % (Auto) (0.0-2.0) % Neut # (1.8-7.0) K/uL Lymph # (1.0-4.3) K/uL Laurens # (0.0-0.8) K/uL Eos # (0.0-0.7) K/uL Baso # (0.0-0.2) K/uL Differential Comment Sodium (132-148) mmol/L Potassium (3.6-5.2) mmol/L Chloride (98-107) mmol/L Carbon Dioxide (22-30) mmol/L Anion Gap (10-20) BUN (9-20) mg/dL Creatinine (0.8-1.5) MG/DL Est GFR ( Amer) Est GFR (Non-Af Amer) Random Glucose (75-110) mg/dL Calcium (8.6-10.4) mg/dl Phosphorus (2.5-4.5) mg/dL Magnesium (1.6-2.3) mg/dL Total Bilirubin (0.2-1.3) mg/dL AST (17-59) U/L ALT (21-72) U/L Alkaline Phosphatase (38-126) U/L Total Protein (6.3-8.3) g/dL Albumin (3.5-5.0) g/dL Globulin (2.2-3.9) gm/dL Albumin/Globulin Ratio (1.0-2.1) Hep Bs Antigen Negative (NEGATIVE) Hep Bs Antibody (NEGATIVE) Hep B Core IgM Ab Negative (NEGATIVE) Hepatitis C Antibody Negative (NEGATIVE) Laboratory Results - last 24 hr 03/17/17 03/17/17 03/18/17 16:31 16:31 06:15 WBC 12.1 H RBC 3.65 L Hgb 10.7 L Hct 32.9 L MCV 90.2 MCH 29.3 MCHC 32.5 L RDW 15.3 H Plt Count 33 L D MPV 8.8 Neut % (Auto) 76.5 H Lymph % (Auto) 19.0 L [place] % (Auto) 4.3 Eos % (Auto) 0.1 Baso % (Auto) 0.1 Neut # 9.2 H Lymph # 2.3 Laurens # 0.5 Eos # 0.0 Baso # 0.0 Differential Comment Sodium Potassium Chloride Carbon Dioxide Anion Gap BUN Creatinine Est GFR ( Amer) Est GFR (Non-Af Amer) Random Glucose Calcium Phosphorus Magnesium Total Bilirubin AST ALT Alkaline Phosphatase Total Protein Albumin Globulin Albumin/Globulin Ratio Hep Bs Antigen Negative Hep Bs Antibody Negative Hep B Core IgM Ab Negative Hepatitis C Antibody Negative 03/18/17 06:15 WBC RBC Hgb Hct MCV MCH MCHC RDW Plt Count MPV Neut % (Auto) Lymph % (Auto) Lau[place] % (Auto) Eos % (Auto) Baso % (Auto) Neut # Lymph # Lau[place] # Eos # Baso # Differential Comment Sodium 134 Potassium 3.8 Chloride 92 L Carbon Dioxide 31 H Anion Gap 15 BUN 52 H Creatinine 3.5 H Est GFR ( Amer) 25 Est GFR (Non-Af Amer) 20 Random Glucose 130 H Calcium 8.1 L Phosphorus 5.2 H Magnesium 2.1 Total Bilirubin 0.7 AST 23 ALT 26 Alkaline Phosphatase 76 Total Protein 6.2 L Albumin 3.6 Globulin 2.6 Albumin/Globulin Ratio 1.4 Hep Bs Antigen Hep Bs Antibody Hep B Core IgM Ab Hepatitis C Antibody Critical Care Progress Note - Nutrition Nutrition: Nutrition Category Date Time Status Renal Diet [DIET] Diets 03/18/17 Breakfast Active Attending/Attestation - Attestation I have personally seen and examined this patient.: Yes I have fully participated in the care of the patient.: Yes I have reviewed all pertinent clinical information: Yes Notes (Text): 03/18/17 13:17 I have seen and examined the patient. Medical records, lab studies, and imaging were reviewed by me and a management plan was formulated on multidisciplinary rounds with resident Dr. eNlson. I agree with their above documented assessment and plan. Patient is clinically stable for downgrade to the floors. Critical Care Time 35 minutes. Multi-disciplinary rounds were performed with house staff, nursing, speech therapy, respiratory therapy, pharmacy and nutrition with integrated input from the primary team/attending and other consulting services. The documented time is cumulative and includes review of patient data/exams/labs/chart review and examination of the patient on rounds and throughout the day; time is exclusive of any procedures or teaching time.
[2017-03-18 06:34] LABS: POTASSIUM 3.8 mmol/L (3.6-5.2)
[2017-03-18 06:37] LABS: ALB/GLOB RATIO 1.4 (1.0-2.1); BILIRUBIN,TOTAL 0.7 mg/dL (0.2-1.3); CALCIUM 8.1 mg/dl (8.6-10.4); PHOSPHOROUS 5.2 mg/dL (2.5-4.5); TOTAL PROTEIN 6.2 g/dL (6.3-8.3)
[2017-03-18 06:38] LABS: MAGNESIUM 2.1 mg/dL (1.6-2.3)
[2017-03-18 07:02] LABS: BASO % 0.1 % (0.0-2.0); EOS % 0.1 % (0.0-4.0); HEMATOCRIT 32.9 % (35.0-51.0); LYMPH # 2.3 K/uL (1.0-4.3); MEAN CELL VOLUME 90.2 fL (80.0-94.0); MEAN CORPUSCULAR HEMOGLOBIN 29.3 pg (27.0-31.0); MEAN CORPUSCULAR HGB CONC 32.5 g/dL (33.0-37.0); MEAN PLATELET VOLUME 8.8 fL (7.2-11.7); MONO % 4.3 % (0.0-10.0); RED CELL DISTRIBUTION WIDTH 15.3 % (11.5-14.5)
--- NOTE | 2017-03-18 10:07 | CP.PCM.PN ---
Subjective - Date & Time of Evaluation Date of Evaluation: 03/18/17 Time of Evaluation: 10:00 - Subjective Subjective: Patient is S/P permacath placement yesterday and then HD. Per staff he did ok during this. He is now completely off nitro ggt or cardene ggt and on PO BP medications. Also of the bicarb ggt. The systolic BPs are in the 120s. He looked well. Today he denied shortness of breath, denied chest pain, denied palpitations, denied headache. Denied abdominal pain, BM and urine ok. His platelet count decreased to 33 today. Objective - Vital Signs/Intake and Output Vital Signs (last 24 hours): Temp Pulse Resp BP Pulse Ox 98.3 F 83 17 126/70 94 L 03/18/17 08:00 03/18/17 09:00 03/18/17 09:00 03/18/17 09:22 03/18/17 09:00 Intake and Output: 03/18/17 03/18/17 06:59 18:59 Intake Total 1200 300 Output Total 700 0 Balance 500 300 - Medications Medications: Current Medications Calcium Acetate (Phoslo) 667 mg PO TIDCC [facility] Last Admin: 03/18/17 08:03 Dose: 667 mg Carvedilol (Coreg) 25 mg PO BID [facility] Last Admin: 03/18/17 09:22 Dose: 25 mg Clonidine HCl (Catapres) 0.2 mg PO BID [facility] Last Admin: 03/18/17 09:22 Dose: 0.2 mg Famotidine (Pepcid) 20 mg PO DAILY [facility] Last Admin: 03/18/17 09:22 Dose: 20 mg Hydralazine HCl (Apresoline) 50 mg PO Q6H [facility] Last Admin: 03/18/17 09:22 Dose: 50 mg Nicardipine HCl 25 mg/ Sodium (Chloride) 250 mls @ 50 mls/hr IV .Q5H [facility]ILLE; 5 MG/ HR PRN Reason: Protocol Last Admin: 03/18/17 05:59 Dose: Not Given Methylprednisolone (Solu-Medrol) 60 mg IVP Q6 [facility] Last Admin: 03/18/17 06:01 Dose: 60 mg Ondansetron HCl (Zofran Inj) 4 mg IVP Q6H PRN PRN Reason: Nausea/Vomiting Last Admin: 03/16/17 05:05 Dose: 4 mg Oxycodone/Acetaminophen (Percocet 5/325 Mg Tab) 1 tab PO Q4H PRN PRN Reason: Pain, moderate (4-7) Stop: 03/20/17 15:30 - Labs Labs: 03/18/17 06:15 03/18/17 06:15 PT 13.3 SECONDS (9.7-12.2) H 03/17/17 06:24 INR 1.2 03/17/17 06:24 APTT 26 SECONDS (21-34) 03/17/17 06:24 Assessment and Plan - Assessment and Plan (Free Text) Assessment: Atypical HUS or Alport Syndrome 03/18: Patient now has permacath placed. Platelets are 33 so if drops again then will need another transfusion 03/17: Platelet count continues to increase, hopefully can get permacath soon. 03/16: Today the platelet count increased. Continue with solumedrol and today due for Eculizumab. Continue to monitor. 03/15: As mentioned before he gets weekly infusions of Eculizumab (soliris) per discussion with ER and pharmacy that medication is already at pharmacy as he is due to get this medication tomorrow. Per my discussion with hematology there is some question with regards to the responsiveness of the medication as his platelet count is still severely low - he has easy bleeding. Will give solumedrol IVP 125 x1 now and then 40 TID. Also DDAVP x 1 now. Because platelets are low transfusing 2 now but it will take several hours before it can come. As per Dr. 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 Pt consented to atypical HUS treatment with eculizumab; medication assistance paperwork faxed.Peripheral smear shows schistocytes, LDH was elevated, and pt presented with HTN emergency Immune studies: HIV, MAGDI, Rheumatoid panel, complement studies negative C-anca negative Renal failure, CKD, Nephrotic Kidney Disease 03/18 Now has permacath placed yesterday and had one HD yesterday as well 03/17: Creatine remains elevated despite solumedrol and Eculizumab, if platelet count remains stable then hopefully can get permacath 03/15: Renal function is worsening. Creatine is up to 5. It would be difficult to give HD due to such a low plaetelcount. Transfusing right now. 24 hour urine protein 38826, very elevated [employer], Dr. Villasenor, consulted. Help appreciated. 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 He is off of nitro and cardene ggt and on PO medications. 03/17: Better, systolic in the 150s 03/16: Systolic BP lower today with nitro ggt, however ultimately he probably needs dialysis - however this will be difficult given his low platelets 03/15: Very elevated in the ER and recived several hydralazine and labelatol and then noravc. Systolics are 190s and then decreased to 170s. CT scan of the head was negative. Monitor in ICU, might need a continuous drip Norvasc 10 mg po qd Coreg 25 mg po bid Hydralazine 25 mg po TID History of renal hematoa after biopsy 03/16: No abdominal or flank pain today 03/15: He tells us he does not have abdominal pain and no pain on exam of abdomen or flank area Platelet count is low - so if he does have pain will get a stat CT. As mentioned before he had an embolization. History of Pleural Effusion: 03/15: Currently NOT short of breath, however previous admision was an issue. Will check Prophylactic Measures: Pepcid 20 mg po qd Anticoagulation contraindicated due to thrombocytopenia
--- NOTE | 2017-03-18 11:48 | RAD ---
PROCEDURE: Fluoroscopy up to 1 hr. HISTORY: RENAL FAILURE COMPARISON: None TECHNIQUE: Standard FINDINGS: One image submitted IMPRESSION: Total fluoroscopic time (continuous mode) utilized during the procedure: 37.9 seconds.
--- NOTE | 2017-03-18 12:22 | CP.PCM.PN ---
Subjective - Date & Time of Evaluation Date of Evaluation: 03/18/17 Time of Evaluation: 12:21 - Subjective Subjective: s/p hd yesterday unremarkable bp improved, off all drips. on po meds platelets 33 noted. permcath Objective - Vital Signs/Intake and Output Vital Signs (last 24 hours): Temp Pulse Resp BP Pulse Ox 98.3 F 83 17 126/70 94 L 03/18/17 08:00 03/18/17 09:00 03/18/17 09:00 03/18/17 09:22 03/18/17 09:00 Intake and Output: 03/18/17 03/18/17 06:59 18:59 Intake Total 1200 480 Output Total 700 0 Balance 500 480 - Medications Medications: Current Medications Calcium Acetate (Phoslo) 667 mg PO TIDCC [facility] Last Admin: 03/18/17 11:51 Dose: 667 mg Carvedilol (Coreg) 25 mg PO BID [facility] Last Admin: 03/18/17 09:22 Dose: 25 mg Clonidine HCl (Catapres) 0.2 mg PO BID [facility] Last Admin: 03/18/17 09:22 Dose: 0.2 mg Famotidine (Pepcid) 20 mg PO DAILY [facility] Last Admin: 03/18/17 09:22 Dose: 20 mg Hydralazine HCl (Apresoline) 50 mg PO Q6H [facility] Last Admin: 03/18/17 09:22 Dose: 50 mg Nicardipine HCl 25 mg/ Sodium (Chloride) 250 mls @ 50 mls/hr IV .Q5H GUILLE; 5 MG/ HR PRN Reason: Protocol Last Admin: 03/18/17 05:59 Dose: Not Given Methylprednisolone (Solu-Medrol) 60 mg IVP Q6 [facility] Last Admin: 03/18/17 11:50 Dose: 60 mg Ondansetron HCl (Zofran Inj) 4 mg IVP Q6H PRN PRN Reason: Nausea/Vomiting Last Admin: 03/16/17 05:05 Dose: 4 mg Oxycodone/Acetaminophen (Percocet 5/325 Mg Tab) 1 tab PO Q4H PRN PRN Reason: Pain, moderate (4-7) Stop: 03/20/17 15:30 - Labs Labs: 03/18/17 06:15 03/18/17 06:15 PT 13.3 SECONDS (9.7-12.2) H 03/17/17 06:24 INR 1.2 03/17/17 06:24 APTT 26 SECONDS (21-34) 03/17/17 06:24 - Constitutional Appears: Non-toxic, No Acute Distress, Chronically Ill - Head Exam Head Exam: NORMAL INSPECTION - Eye Exam Eye Exam: Normal appearance Pupil Exam: PERRL - ENT Exam ENT Exam: Mucous Membranes Moist, Normal Exam - Neck Exam Neck Exam: Normal Inspection - Respiratory Exam Respiratory Exam: Decreased Breath Sounds, NORMAL BREATHING PATTERN - Cardiovascular Exam Cardiovascular Exam: REGULAR RHYTHM, RRR - GI/Abdominal Exam GI & Abdominal Exam: Distended, Soft, Normal Bowel Sounds - Extremities Exam Extremities Exam: Normal Inspection Assessment and Plan (1) Atypical hemolytic uremic syndrome Status: Acute (2) End stage renal disease Status: Acute (3) Hypertensive emergency Status: Acute (4) Other primary thrombocytopenia Status: Acute (5) Anemia Status: Acute - Assessment and Plan (Free Text) Assessment: -maintain hd tts -soliris / steroids / platelet transfusion per oncology -
--- NOTE | 2017-03-18 15:22 | CP.PCM.PN ---
Subjective - Date & Time of Evaluation Date of Evaluation: 03/18/17 Time of Evaluation: 07:00 - Subjective Subjective: VASCULAR SURGERY PROGRESS NOTE FOR DR. GURROLA Patient seen and examined at bedside in the ICU. He had his PermaCath placed yesterday. He received dialysis yesterday afternoon without any complications. There has been no bleeding from the permacath site. Patient reports no pain. Objective - Vital Signs/Intake and Output Vital Signs (last 24 hours): Temp Pulse Resp BP Pulse Ox 97.9 F 70 16 136/67 95 03/18/17 12:00 03/18/17 12:00 03/18/17 12:00 03/18/17 12:00 03/18/17 12:00 Intake and Output: 03/18/17 03/18/17 06:59 18:59 Intake Total 1200 660 Output Total 700 300 Balance 500 360 - Medications Medications: Current Medications Calcium Acetate (Phoslo) 667 mg PO TIDCC [facility] Last Admin: 03/18/17 11:51 Dose: 667 mg Carvedilol (Coreg) 25 mg PO BID [facility] Last Admin: 03/18/17 09:22 Dose: 25 mg Clonidine HCl (Catapres) 0.2 mg PO BID [facility] Last Admin: 03/18/17 09:22 Dose: 0.2 mg Famotidine (Pepcid) 20 mg PO DAILY [facility] Last Admin: 03/18/17 09:22 Dose: 20 mg Hydralazine HCl (Apresoline) 50 mg PO Q6H [facility] Last Admin: 03/18/17 14:49 Dose: 50 mg Nicardipine HCl 25 mg/ Sodium (Chloride) 250 mls @ 50 mls/hr IV .Q5H [facility]ILLE; 5 MG/ HR PRN Reason: Protocol Last Admin: 03/18/17 14:48 Dose: Not Given Methylprednisolone (Solu-Medrol) 60 mg IVP Q6 [facility] Last Admin: 03/18/17 11:50 Dose: 60 mg Ondansetron HCl (Zofran Inj) 4 mg IVP Q6H PRN PRN Reason: Nausea/Vomiting Last Admin: 03/16/17 05:05 Dose: 4 mg Oxycodone/Acetaminophen (Percocet 5/325 Mg Tab) 1 tab PO Q4H PRN PRN Reason: Pain, moderate (4-7) Stop: 03/20/17 15:30 - Labs Labs: 03/18/17 06:15 03/18/17 06:15 PT 13.3 SECONDS (9.7-12.2) H 03/17/17 06:24 INR 1.2 03/17/17 06:24 APTT 26 SECONDS (21-34) 03/17/17 06:24 - Constitutional Appears: Non-toxic, No Acute Distress - Head Exam Head Exam: ATRAUMATIC, NORMAL INSPECTION - Eye Exam Eye Exam: EOMI, Normal appearance - Respiratory Exam Respiratory Exam: NORMAL BREATHING PATTERN. absent: Respiratory Distress - Cardiovascular Exam Cardiovascular Exam: +S1, +S2 - Neurological Exam Neurological Exam: Alert, Awake - Psychiatric Exam Psychiatric exam: Normal Affect, Normal Mood - Skin Skin Exam: Normal Color, Warm Additional comments: Right Permacath in place with dressing clean/dry/intact Assessment and Plan - Assessment and Plan (Free Text) Assessment: 31yo M with renal failure and atypical HUS s/p Insertion of Permacath into Right IJ, POD#1 - Afebrile, VSS - Hemoglobin 10.7 (stable from 10.3 yesterday) - Platelets decreased to 33 from 57 yesterday - No bleeding at Permacath site - Had dialysis successfully yesterday - Post op CXR yesterday: no pneumothorax - Discussed plan with Dr. Philomena Feliz PGY-2
[2017-03-19] MEDS: MethylPREDNISolone 40 mg Vial IVP SCH ×4 (00:07→17:26)
[2017-03-19 07:50] LABS: BASO % 0.1 % (0.0-2.0); HEMATOCRIT 33.3 % (35.0-51.0); LYMPH # 1.9 K/uL (1.0-4.3); LYMPH % 27.4 % (20.0-40.0); MEAN CELL VOLUME 89.5 fL (80.0-94.0); MEAN CORPUSCULAR HEMOGLOBIN 29.4 pg (27.0-31.0); MEAN CORPUSCULAR HGB CONC 32.9 g/dL (33.0-37.0); MEAN PLATELET VOLUME 9.6 fL (7.2-11.7); MONO # 0.4 K/uL (0.0-0.8); MONO % 6.3 % (0.0-10.0); WHITE BLOOD COUNT 6.9 K/uL (4.8-10.8)
[2017-03-19 08:02] LABS: POTASSIUM 3.6 mmol/L (3.6-5.2)
[2017-03-19 08:04] LABS: ALB/GLOB RATIO 1.4 (1.0-2.1); BILIRUBIN,TOTAL 0.7 mg/dL (0.2-1.3); PHOSPHOROUS 7.6 mg/dL (2.5-4.5); TOTAL PROTEIN 5.8 g/dL (6.3-8.3)
[2017-03-19 08:05] LABS: MAGNESIUM 2.4 mg/dL (1.6-2.3)
--- NOTE | 2017-03-19 09:06 | CP.PCM.PN ---
Subjective - Date & Time of Evaluation Date of Evaluation: 03/19/17 Time of Evaluation: 09:00 - Subjective Subjective: Patient was seen and examined by me. He was sleeping and not in any acute distress. He denied chest pain, denied shortness of breath, denied palpitations, headache resolved, vision ok, and denied abdominal pain, denied urinary or GI complaints. Denied fevers. No bleeding in mouth or gums He is now on medical floor. Platelet count has decreased to 22K so will continue with the IV solumedrol 60 Q8 and then again give DDAVP 30 and then 1 unit of platelets again. We are getting a response to his platelet counts with transfusions now - during last admission his platelet count stayed below 10 and we could never give HD. He now has a permacath and had HD successfully the other day. His BP was a lot better after HD Objective - Vital Signs/Intake and Output Vital Signs (last 24 hours): Temp Pulse Resp BP Pulse Ox 98.2 F 65 20 112/64 95 03/19/17 07:51 03/19/17 07:51 03/19/17 07:51 03/19/17 07:51 03/19/17 07:51 Intake and Output: 03/19/17 03/19/17 06:59 18:59 Intake Total 200 Output Total 0 Balance 200 - Medications Medications: Current Medications Calcium Acetate (Phoslo) 667 mg PO TIDCC [facility] Last Admin: 03/19/17 07:43 Dose: 667 mg Carvedilol (Coreg) 25 mg PO BID [facility] Last Admin: 03/18/17 17:49 Dose: 25 mg Clonidine HCl (Catapres) 0.2 mg PO BID [facility] Last Admin: 03/18/17 17:48 Dose: 0.2 mg Famotidine (Pepcid) 20 mg PO DAILY [facility] Last Admin: 03/18/17 09:22 Dose: 20 mg Hydralazine HCl (Apresoline) 50 mg PO Q6H [facility] Last Admin: 03/19/17 03:07 Dose: Not Given Desmopressin Acetate 30 mcg/ (Sodium Chloride) 57.5 mls @ 100 mls/hr IV ONCE ONE Stop: 03/19/17 09:34 Methylprednisolone (Solu-Medrol) 60 mg IVP Q6 [facility] Last Admin: 03/19/17 05:57 Dose: 60 mg Ondansetron HCl (Zofran Inj) 4 mg IVP Q6H PRN PRN Reason: Nausea/Vomiting Last Admin: 03/16/17 05:05 Dose: 4 mg Oxycodone/Acetaminophen (Percocet 5/325 Mg Tab) 1 tab PO Q4H PRN PRN Reason: Pain, moderate (4-7) Stop: 03/20/17 15:30 - Labs Labs: 03/19/17 07:43 03/19/17 07:43 PT 13.3 SECONDS (9.7-12.2) H 03/17/17 06:24 INR 1.2 03/17/17 06:24 APTT 26 SECONDS (21-34) 03/17/17 06:24 - Constitutional Appears: Well, No Acute Distress - Head Exam Head Exam: NORMAL INSPECTION - ENT Exam Additional comments: HEaring aid, chronic hearing loss - Respiratory Exam Respiratory Exam: Clear to Ausculation Bilateral, NORMAL BREATHING PATTERN - Cardiovascular Exam Cardiovascular Exam: REGULAR RHYTHM - GI/Abdominal Exam GI & Abdominal Exam: Soft, Normal Bowel Sounds - Extremities Exam Additional comments: Ne peticha or rashes, no brusing - Neurological Exam Neurological Exam: Alert, Awake, CN II-XII Intact, Oriented x3 Neuro motor strength exam: Left Upper Extremity: 5, Right Upper Extremity: 5, Left Lower Extremity: 5, Right Lower Extremity: 5 - Psychiatric Exam Psychiatric exam: Normal Affect, Normal Mood - Skin Skin Exam: Normal Color, Warm Assessment and Plan - Assessment and Plan (Free Text) Assessment: Atypical HUS or Alport Syndrome 03/19: Will transfuse another unit, DDAVP, continue with solumderol. Now that he has a permacath, maybe he can later get plasmapharesis but will have to clarify with nephrology as well as hematology. 03/18: Patient now has permacath placed. Platelets are 33 so if drops again then will need another transfusion 03/17: Platelet count continues to increase, hopefully can get permacath soon. 03/16: Today the platelet count increased. Continue with solumedrol and today due for Eculizumab. Continue to monitor. 03/15: As mentioned before he gets weekly infusions of Eculizumab (soliris) per discussion with ER and pharmacy that medication is already at pharmacy as he is due to get this medication tomorrow. Per my discussion with hematology there is some question with regards to the responsiveness of the medication as his platelet count is still severely low - he has easy bleeding. Will give solumedrol IVP 125 x1 now and then 40 TID. Also DDAVP x 1 now. Because platelets are low transfusing 2 now but it will take several hours before it can come. As per Dr. 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 Pt consented to atypical HUS treatment with eculizumab; medication assistance paperwork faxed.Peripheral smear shows schistocytes, LDH was elevated, and pt presented with HTN emergency Immune studies: HIV, MAGDI, Rheumatoid panel, complement studies negative C-anca negative Renal failure, CKD, Nephrotic Kidney Disease 03/19: Continue to monitor. Now has permacath 03/18 Now has permacath placed yesterday and had one HD yesterday as well 03/17: Creatine remains elevated despite solumedrol and Eculizumab, if platelet count remains stable then hopefully can get permacath 03/15: Renal function is worsening. Creatine is up to 5. It would be difficult to give HD due to such a low plaetelcount. Transfusing right now. 24 hour urine protein 57004, very elevated [employer], Dr. Villasenor, consulted. Help appreciated. 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 03/18: He just had his first HD yesterday, systolic BPs now in the 120s. He is off of nitro and cardene ggt and on PO medications. 03/17: Better, systolic in the 150s 03/16: Systolic BP lower today with nitro ggt, however ultimately he probably needs dialysis - however this will be difficult given his low platelets 03/15: Very elevated in the ER and recived several hydralazine and labelatol and then noravc. Systolics are 190s and then decreased to 170s. CT scan of the head was negative. Monitor in ICU, might need a continuous drip Norvasc 10 mg po qd Coreg 25 mg po bid Hydralazine 25 mg po TID History of renal hematoa after biopsy 03/16: No abdominal or flank pain today 03/15: He tells us he does not have abdominal pain and no pain on exam of abdomen or flank area Platelet count is low - so if he does have pain will get a stat CT. As mentioned before he had an embolization. History of Pleural Effusion: 03/15: Currently NOT short of breath, however previous admision was an issue. Will check Prophylactic Measures: Pepcid 20 mg po qd Anticoagulation contraindicated due to thrombocytopenia
--- NOTE | 2017-03-19 10:58 | CP.PCM.PN ---
Subjective - Date & Time of Evaluation Date of Evaluation: 03/19/17 Time of Evaluation: 09:45 - Subjective Subjective: no complaints on HD stable bp permcath with blood flow of 350 cc/min for platelet infusion post HD Objective - Vital Signs/Intake and Output Vital Signs (last 24 hours): Temp Pulse Resp BP Pulse Ox 98 F 58 L 16 142/85 95 03/19/17 09:30 03/19/17 09:30 03/19/17 09:30 03/19/17 09:30 03/19/17 09:30 Intake and Output: 03/19/17 03/19/17 06:59 18:59 Intake Total 200 Output Total 0 Balance 200 - Medications Medications: Current Medications Calcium Acetate (Phoslo) 667 mg PO TIDCC [facility] Last Admin: 03/19/17 07:43 Dose: 667 mg Carvedilol (Coreg) 25 mg PO BID [facility] Last Admin: 03/19/17 09:17 Dose: Not Given Clonidine HCl (Catapres) 0.2 mg PO BID [facility] Last Admin: 03/19/17 09:16 Dose: Not Given Famotidine (Pepcid) 20 mg PO DAILY [facility] Last Admin: 03/19/17 09:16 Dose: 20 mg Hydralazine HCl (Apresoline) 50 mg PO Q6H [facility] Last Admin: 03/19/17 09:16 Dose: Not Given Methylprednisolone (Solu-Medrol) 60 mg IVP Q6 [facility] Last Admin: 03/19/17 05:57 Dose: 60 mg Ondansetron HCl (Zofran Inj) 4 mg IVP Q6H PRN PRN Reason: Nausea/Vomiting Last Admin: 03/16/17 05:05 Dose: 4 mg Oxycodone/Acetaminophen (Percocet 5/325 Mg Tab) 1 tab PO Q4H PRN PRN Reason: Pain, moderate (4-7) Stop: 03/20/17 15:30 - Labs Labs: 03/19/17 07:43 03/19/17 07:43 PT 13.3 SECONDS (9.7-12.2) H 03/17/17 06:24 INR 1.2 03/17/17 06:24 APTT 26 SECONDS (21-34) 03/17/17 06:24 - Constitutional Appears: Non-toxic, No Acute Distress - Head Exam Head Exam: ATRAUMATIC - Eye Exam Eye Exam: EOMI - ENT Exam ENT Exam: Mucous Membranes Moist - Neck Exam Neck Exam: Full ROM. absent: Lymphadenopathy - Respiratory Exam Respiratory Exam: NORMAL BREATHING PATTERN. absent: Accessory Muscle Use - Cardiovascular Exam Cardiovascular Exam: REGULAR RHYTHM. absent: Rubs - GI/Abdominal Exam GI & Abdominal Exam: Soft. absent: Tenderness - Extremities Exam Extremities Exam: absent: Pedal Edema Assessment and Plan - Assessment and Plan (Free Text) Assessment: HUS new esrd htn, betteer continue HD Heme follow up for dropping platelets
--- NOTE | 2017-03-19 21:05 | CP.PCM.PN ---
Subjective - Date & Time of Evaluation Date of Evaluation: 03/19/17 Time of Evaluation: 15:30 - Subjective Subjective: No complaints, feeling better Objective - Vital Signs/Intake and Output Vital Signs (last 24 hours): Temp Pulse Resp BP Pulse Ox 98.4 F 69 20 141/74 98 03/19/17 15:30 03/19/17 15:30 03/19/17 15:30 03/19/17 17:25 03/19/17 15:30 - Medications Medications: Current Medications Calcium Acetate (Phoslo) 667 mg PO TIDCC [facility] Last Admin: 03/19/17 17:25 Dose: 667 mg Carvedilol (Coreg) 25 mg PO BID [facility] Last Admin: 03/19/17 17:25 Dose: 25 mg Clonidine HCl (Catapres) 0.2 mg PO BID [facility] Last Admin: 03/19/17 17:25 Dose: 0.2 mg Famotidine (Pepcid) 20 mg PO DAILY [facility] Last Admin: 03/19/17 09:16 Dose: 20 mg Hydralazine HCl (Apresoline) 50 mg PO Q6H [facility] Last Admin: 03/19/17 14:51 Dose: 50 mg Methylprednisolone (Solu-Medrol) 60 mg IVP Q6 [facility] Last Admin: 03/19/17 17:26 Dose: 60 mg Ondansetron HCl (Zofran Inj) 4 mg IVP Q6H PRN PRN Reason: Nausea/Vomiting Last Admin: 03/16/17 05:05 Dose: 4 mg Oxycodone/Acetaminophen (Percocet 5/325 Mg Tab) 1 tab PO Q4H PRN PRN Reason: Pain, moderate (4-7) Stop: 03/20/17 15:30 - Labs Labs: 03/19/17 07:43 03/19/17 07:43 PT 13.3 SECONDS (9.7-12.2) H 03/17/17 06:24 INR 1.2 03/17/17 06:24 APTT 26 SECONDS (21-34) 03/17/17 06:24 - Head Exam Head Exam: ATRAUMATIC - Eye Exam Eye Exam: Normal appearance - ENT Exam ENT Exam: Mucous Membranes Dry - Respiratory Exam Respiratory Exam: NORMAL BREATHING PATTERN - Cardiovascular Exam Cardiovascular Exam: +S1, +S2 - GI/Abdominal Exam GI & Abdominal Exam: Normal Bowel Sounds - Extremities Exam Extremities Exam: Normal Inspection Assessment and Plan (1) Hemolytic uremic syndrome Assessment & Plan: on eculizumab more responsive to transfusions; ?related to eculizumab treatment on steroids, DDAVP, and transfusion support PRN Status: Acute
[2017-03-20] MEDS: MethylPREDNISolone 40 mg Vial IVP SCH ×4 (00:21→18:23)
[2017-03-20 07:54] LABS: BASO % 0.1 % (0.0-2.0); HEMATOCRIT 29.9 % (35.0-51.0); LYMPH # 1.3 K/uL (1.0-4.3); LYMPH % 12.1 % (20.0-40.0); MEAN CELL VOLUME 90.8 fL (80.0-94.0); MEAN PLATELET VOLUME 8.9 fL (7.2-11.7); MONO # 0.9 K/uL (0.0-0.8); MONO % 8.1 % (0.0-10.0); NRBC % 0.8 % (0.0-2.0); RED CELL DISTRIBUTION WIDTH 14.7 % (11.5-14.5); WHITE BLOOD COUNT 10.8 K/uL (4.8-10.8)
[2017-03-20 08:10] LABS: POTASSIUM 3.7 mmol/L (3.6-5.2)
[2017-03-20 08:12] LABS: ALB/GLOB RATIO 1.3 (1.0-2.1); BILIRUBIN,TOTAL 0.6 mg/dL (0.2-1.3); TOTAL PROTEIN 5.5 g/dL (6.3-8.3)
[2017-03-20 08:13] LABS: CALCIUM 7.8 mg/dl (8.6-10.4)
--- NOTE | 2017-03-20 11:30 | CP.PCM.PN ---
Subjective - Date & Time of Evaluation Date of Evaluation: 03/20/17 Time of Evaluation: 11:00 - Subjective Subjective: Patient was seen and examined He was at rest. He did not have any acute complaints. He denied headache and denied abdominal pain, denied bleeding from mouth/gums/ nose. Denied chest pain, denied shortness of breath Yesterday he had his second HD session now that he has a permacath. He also had platelets given afterwards too along with DDAVP and continuing the IV solumedrol 60 TID. Since this admission he has had a total of 4 units of platelets so far. Objective - Vital Signs/Intake and Output Vital Signs (last 24 hours): Temp Pulse Resp BP Pulse Ox 98.0 F 72 20 126/70 95 03/20/17 09:03 03/20/17 09:03 03/20/17 09:03 03/20/17 09:03 03/20/17 09:03 Intake and Output: 03/20/17 03/20/17 06:59 18:59 Intake Total 1220 Output Total 800 Balance 420 - Medications Medications: Current Medications Calcium Acetate (Phoslo) 667 mg PO TIDCC [facility] Last Admin: 03/20/17 09:07 Dose: 667 mg Carvedilol (Coreg) 25 mg PO BID [facility] Last Admin: 03/19/17 17:25 Dose: 25 mg Clonidine HCl (Catapres) 0.2 mg PO BID [facility] Last Admin: 03/19/17 17:25 Dose: 0.2 mg Famotidine (Pepcid) 20 mg PO DAILY [facility] Last Admin: 03/19/17 09:16 Dose: 20 mg Hydralazine HCl (Apresoline) 50 mg PO Q6H [facility] Last Admin: 03/20/17 09:07 Dose: 50 mg Desmopressin Acetate 30 mcg/ (Sodium Chloride) 57.5 mls @ 100 mls/hr IV ONCE ONE Stop: 03/20/17 11:29 Methylprednisolone (Solu-Medrol) 60 mg IVP Q6 [facility] Last Admin: 03/20/17 06:13 Dose: 60 mg Ondansetron HCl (Zofran Inj) 4 mg IVP Q6H PRN PRN Reason: Nausea/Vomiting Last Admin: 03/16/17 05:05 Dose: 4 mg Oxycodone/Acetaminophen (Percocet 5/325 Mg Tab) 1 tab PO Q4H PRN PRN Reason: Pain, moderate (4-7) Stop: 03/20/17 15:30 - Labs Labs: 03/20/17 07:46 03/20/17 07:46 PT 13.3 SECONDS (9.7-12.2) H 03/17/17 06:24 INR 1.2 03/17/17 06:24 APTT 26 SECONDS (21-34) 03/17/17 06:24 - Constitutional Appears: Well, No Acute Distress, Chronically Ill - Head Exam Head Exam: NORMAL INSPECTION, NORMOCEPHALIC - Eye Exam Eye Exam: EOMI - ENT Exam ENT Exam: Mucous Membranes Moist Additional comments: Wears hearing aid - Neck Exam Additional comments: No bleeding from gums or mounth - Respiratory Exam Respiratory Exam: Clear to Ausculation Bilateral, NORMAL BREATHING PATTERN - Cardiovascular Exam Cardiovascular Exam: REGULAR RHYTHM - GI/Abdominal Exam GI & Abdominal Exam: Soft, Normal Bowel Sounds. absent: Distended, Firm, Guarding, Rigid, Tenderness - Extremities Exam Extremities Exam: Full ROM. 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 He has had a total of 4 units so far. On IV solumedrol and QWEEK EculizumabConsider plasmapharesis 03/19: Will transfuse another unit, DDAVP, continue with solumderol. Now that he has a permacath, maybe he can later get plasmapharesis but will have to clarify with nephrology as well as hematology. 03/18: Patient now has permacath placed. Platelets are 33 so if drops again then will need another transfusion 03/17: Platelet count continues to increase, hopefully can get permacath soon. 03/16: Today the platelet count increased. Continue with solumedrol and today due for Eculizumab. Continue to monitor. 03/15: As mentioned before he gets weekly infusions of Eculizumab (soliris) per discussion with ER and pharmacy that medication is already at pharmacy as he is due to get this medication tomorrow. Per my discussion with hematology there is some question with regards to the responsiveness of the medication as his platelet count is still severely low - he has easy bleeding. Will give solumedrol IVP 125 x1 now and then 40 TID. Also DDAVP x 1 now. Because platelets are low transfusing 2 now but it will take several hours before it can come. As per Dr. 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 Pt consented to atypical HUS treatment with eculizumab; medication assistance paperwork faxed.Peripheral smear shows schistocytes, LDH was elevated, and pt presented with HTN emergency Immune studies: HIV, MAGDI, Rheumatoid panel, complement studies negative C-anca negative Renal failure, CKD, Nephrotic Kidney Disease 03/20: Blood pressure now a lot better since he is on HD 03/19: Continue to monitor. Now has permacath 03/18 Now has permacath placed yesterday and had one HD yesterday as well 03/17: Creatine remains elevated despite solumedrol and Eculizumab, if platelet count remains stable then hopefully can get permacath 03/15: Renal function is worsening. Creatine is up to 5. It would be difficult to give HD due to such a low plaetelcount. Transfusing right now. 24 hour urine protein [id number], very elevated Psychodramatist, Dr. Villasenor, consulted. Help appreciated. 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 Currently on Coreg, Catapress, Hydralazin, Norvasc 03/19: BP in the 110s systolic. 03/18: He just had his first HD yesterday, systolic BPs now in the 120s. He is off of nitro and cardene ggt and on PO medications. 03/17: Better, systolic in the 150s 03/16: Systolic BP lower today with nitro ggt, however ultimately he probably needs dialysis - however this will be difficult given his low platelets 03/15: Very elevated in the ER and recived several hydralazine and labelatol and then noravc. Systolics are 190s and then decreased to 170s. CT scan of the head was negative. Monitor in ICU, might need a continuous drip Catapress 0.2 TID PO Norvasc 10 mg po qd Coreg 25 mg po bid Hydralazine 25 mg po TID History of renal hematoma after biopsy 03/16: No abdominal or flank pain today 03/15: He tells us he does not have abdominal pain and no pain on exam of abdomen or flank area Platelet count is low - so if he does have pain will get a stat CT. As mentioned before he had an embolization. History of Pleural Effusion: 03/15: Currently NOT short of breath, however previous admision was an issue. Will check Prophylactic Measures: Pepcid 20 mg po qd Anticoagulation contraindicated due to thrombocytopenia
--- NOTE | 2017-03-20 18:43 | CP.PCM.PN ---
Subjective - Date & Time of Evaluation Date of Evaluation: 03/20/17 Time of Evaluation: 17:30 - Subjective Subjective: No complaints Objective - Vital Signs/Intake and Output Vital Signs (last 24 hours): Temp Pulse Resp BP Pulse Ox 98.5 F 74 20 135/75 96 03/20/17 15:00 03/20/17 15:00 03/20/17 15:00 03/20/17 18:20 03/20/17 15:00 Intake and Output: 03/20/17 03/20/17 06:59 18:59 Intake Total 1220 530 Output Total 800 Balance 420 530 - Medications Medications: Current Medications Calcium Acetate (Phoslo) 667 mg PO TIDCC [facility] Last Admin: 03/20/17 18:21 Dose: 667 mg Carvedilol (Coreg) 25 mg PO BID [facility] Last Admin: 03/20/17 18:20 Dose: 25 mg Clonidine HCl (Catapres) 0.2 mg PO BID [facility] Last Admin: 03/20/17 11:45 Dose: 0.2 mg Famotidine (Pepcid) 20 mg PO DAILY [facility] Last Admin: 03/20/17 11:40 Dose: 20 mg Hydralazine HCl (Apresoline) 50 mg PO Q6H [facility] Last Admin: 03/20/17 15:05 Dose: 50 mg Methylprednisolone (Solu-Medrol) 60 mg IVP Q6 [facility] Last Admin: 03/20/17 18:23 Dose: 60 mg Ondansetron HCl (Zofran Inj) 4 mg IVP Q6H PRN PRN Reason: Nausea/Vomiting Last Admin: 03/16/17 05:05 Dose: 4 mg - Labs Labs: 03/20/17 07:46 03/20/17 07:46 PT 13.3 SECONDS (9.7-12.2) H 03/17/17 06:24 INR 1.2 03/17/17 06:24 APTT 26 SECONDS (21-34) 03/17/17 06:24 - Head Exam Head Exam: ATRAUMATIC - Eye Exam Eye Exam: Normal appearance - ENT Exam ENT Exam: Mucous Membranes Dry - Respiratory Exam Respiratory Exam: NORMAL BREATHING PATTERN - Cardiovascular Exam Cardiovascular Exam: +S1, +S2 - GI/Abdominal Exam GI & Abdominal Exam: Normal Bowel Sounds - Extremities Exam Extremities Exam: Normal Inspection Assessment and Plan (1) Hemolytic uremic syndrome Assessment & Plan: on eculizumab noted increased plt bump with transfusion compared to last admission recommend against plt transfusion unless plt < 20,000, overt bleeding, or need for surgical procedure Status: Acute
[2017-03-21] MEDS: MethylPREDNISolone 40 mg Vial IVP SCH ×4 (00:04→22:05)
[2017-03-21 08:07] LABS: BASO % 0.2 % (0.0-2.0); HEMATOCRIT 27.5 % (35.0-51.0); LYMPH % 17.2 % (20.0-40.0); MEAN CORPUSCULAR HEMOGLOBIN 29.6 pg (27.0-31.0); MEAN CORPUSCULAR HGB CONC 32.6 g/dL (33.0-37.0); MEAN PLATELET VOLUME 9.3 fL (7.2-11.7); MONO # 0.9 K/uL (0.0-0.8); MONO % 7.4 % (0.0-10.0); NRBC % 1.1 % (0.0-2.0); POTASSIUM 3.4 mmol/L (3.6-5.2); RED CELL DISTRIBUTION WIDTH 14.9 % (11.5-14.5); WHITE BLOOD COUNT 11.7 K/uL (4.8-10.8)
[2017-03-21 08:09] LABS: BILIRUBIN,TOTAL 0.7 mg/dL (0.2-1.3); TOTAL PROTEIN 5.4 g/dL (6.3-8.3)
[2017-03-21 08:10] LABS: CALCIUM 7.9 mg/dl (8.6-10.4)
[2017-03-21 08:23] LABS: ALB/GLOB RATIO 1.3 (1.0-2.1)
[2017-03-21] MEDS ORDERED: Potassium Chloride 20 mEq ER Tab PO ONE (09:25)
--- NOTE | 2017-03-21 10:50 | CP.PCM.PN ---
Subjective - Date & Time of Evaluation Date of Evaluation: 03/21/17 Time of Evaluation: 10:48 - Subjective Subjective: s/p dialysis 5/6- tolerated well- UF 1000ml BP controlled No new events Dialyzed via permcath- AV access not practical due to low plats Objective - Vital Signs/Intake and Output Vital Signs (last 24 hours): Temp Pulse Resp BP Pulse Ox 97.8 F 69 20 146/84 97 03/21/17 08:06 03/21/17 08:06 03/21/17 08:06 03/21/17 08:06 03/21/17 08:06 Intake and Output: 03/21/17 03/21/17 06:59 18:59 Intake Total 1020 Output Total 400 Balance 620 - Medications Medications: Current Medications Calcium Acetate (Phoslo) 667 mg PO TIDCC [facility] Last Admin: 03/21/17 08:45 Dose: 667 mg Carvedilol (Coreg) 25 mg PO BID [facility] Last Admin: 03/20/17 18:20 Dose: 25 mg Clonidine HCl (Catapres) 0.2 mg PO BID [facility] Last Admin: 03/20/17 20:42 Dose: 0.2 mg Famotidine (Pepcid) 20 mg PO DAILY [facility] Last Admin: 03/20/17 11:40 Dose: 20 mg Hydralazine HCl (Apresoline) 50 mg PO Q6H [facility] Last Admin: 03/21/17 08:45 Dose: 50 mg Methylprednisolone (Solu-Medrol) 60 mg IVP Q8H [facility] Ondansetron HCl (Zofran Inj) 4 mg IVP Q6H PRN PRN Reason: Nausea/Vomiting Last Admin: 03/16/17 05:05 Dose: 4 mg - Labs Labs: 03/21/17 07:25 03/21/17 07:25 PT 13.3 SECONDS (9.7-12.2) H 03/17/17 06:24 INR 1.2 03/17/17 06:24 APTT 26 SECONDS (21-34) 03/17/17 06:24 - Constitutional Appears: Non-toxic, No Acute Distress - Head Exam Head Exam: ATRAUMATIC, NORMAL INSPECTION - Eye Exam Eye Exam: EOMI, Normal appearance - Neck Exam Neck Exam: Normal Inspection. absent: Tenderness - Respiratory Exam Respiratory Exam: Clear to Ausculation Bilateral, NORMAL BREATHING PATTERN - Cardiovascular Exam Cardiovascular Exam: REGULAR RHYTHM, +S1 - GI/Abdominal Exam GI & Abdominal Exam: Soft. absent: Tenderness - Extremities Exam Extremities Exam: Normal Inspection. absent: Tenderness - Neurological Exam Neurological Exam: Alert, CN II-XII Intact - Skin Skin Exam: Dry, Warm Assessment and Plan (1) Hypertensive chronic kidney disease with stage 5 chronic kidney disease or end stage renal disease Status: Acute (2) End stage renal disease Status: Acute (3) Atypical hemolytic uremic syndrome Status: Acute (4) Malignant essential hypertension Status: Acute - Assessment and Plan (Free Text) Plan: Dialysis TTS Same BP meds Consider weaning steroids
--- NOTE | 2017-03-21 17:22 | CP.PCM.PN ---
Subjective - Date & Time of Evaluation Date of Evaluation: 03/21/17 Time of Evaluation: 11:25 - Subjective Subjective: Medical Attending Note Follow-up: Atypical TTP-HUS, Hypertensive urgency, Nephrotic Syndrome Patient seen, examined, and case discussed with day-time resident. Patient seen this morning. Patient denies acute complaints. Patient reports he is feeling good. Patient denies pain. Patient's well known to me from prior admission. Patient reports he is urinating. Patient denies bleeding episodes. patient denies new rashes. patient's steroid taper from Solumedrol 60mg IV Q 6hours to Q 8hours today. Discussed heme-onc, no plasmapheresis and wean off steroids. Objective - Vital Signs/Intake and Output Vital Signs (last 24 hours): Temp Pulse Resp BP Pulse Ox 97.5 F L 61 20 107/56 L 95 03/21/17 15:40 03/21/17 15:40 03/21/17 15:40 03/21/17 16:35 03/21/17 15:40 Intake and Output: 03/21/17 03/21/17 06:59 18:59 Intake Total 1020 Output Total 400 Balance 620 - Medications Medications: Current Medications Calcium Acetate (Phoslo) 667 mg PO TIDCC [facility] Last Admin: 03/21/17 12:57 Dose: 667 mg Carvedilol (Coreg) 25 mg PO BID [facility] Last Admin: 03/21/17 11:44 Dose: 25 mg Clonidine HCl (Catapres) 0.2 mg PO BID [facility] Last Admin: 03/21/17 11:42 Dose: 0.2 mg Famotidine (Pepcid) 20 mg PO DAILY [facility] Last Admin: 03/21/17 11:42 Dose: 20 mg Hydralazine HCl (Apresoline) 50 mg PO Q6H [facility] Last Admin: 03/21/17 14:03 Dose: 50 mg Methylprednisolone (Solu-Medrol) 60 mg IVP Q8H [facility] Last Admin: 03/21/17 14:02 Dose: 60 mg Ondansetron HCl (Zofran Inj) 4 mg IVP Q6H PRN PRN Reason: Nausea/Vomiting Last Admin: 03/16/17 05:05 Dose: 4 mg - Labs Labs: 03/21/17 07:25 03/21/17 07:25 PT 13.3 SECONDS (9.7-12.2) H 03/17/17 06:24 INR 1.2 03/17/17 06:24 APTT 26 SECONDS (21-34) 03/17/17 06:24 - Constitutional Appears: Non-toxic, No Acute Distress - Head Exam Head Exam: NORMAL INSPECTION - Eye Exam Eye Exam: EOMI - ENT Exam ENT Exam: Mucous Membranes Dry - Respiratory Exam Respiratory Exam: Clear to Ausculation Bilateral, NORMAL BREATHING PATTERN. absent: Rales, Rhonchi, Wheezes - Cardiovascular Exam Cardiovascular Exam: REGULAR RHYTHM, +S1, +S2 - GI/Abdominal Exam GI & Abdominal Exam: Soft, Normal Bowel Sounds. absent: Distended, Firm, Guarding, Rigid, Tenderness, Rebound - Extremities Exam Extremities Exam: absent: Pedal Edema - Neurological Exam Neurological Exam: Alert, Awake, Oriented x3 - Psychiatric Exam Psychiatric exam: Normal Affect, Normal Mood - Skin Skin Exam: Dry, Normal Color, Warm. absent: Erythema, Petechiae, Rash Assessment and Plan (1) Atypical hemolytic uremic syndrome Assessment & Plan: * Heme-onc (Dr. 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 * Per last admission: Renal biopsy: thrombotic microangiopathy, vascular nephrosclerosis, globala and segmental glomerulosclerosis, intact linear glomeruar and distal tubular basement * During prior admission, platelets refractory to plasmapheresis, IV steroids, and transient improvement in platelets s/p multiple transfusion * Patient is currently on Soliris (Eculuazmab); approved by [facility] * During this admission: patient is on IV steroids, has received Iv desmopressin , and 4 platelets transfusion * Trend platelets: today is 56,000 * Monitor for bleeding episodes and skin changes * None reported per discussion with patient today Status: Acute (2) Hypertensive urgency Assessment & Plan: * Coreg 25mg PO bid * Clonidine 0.2mg PO bid * Hydralazine 50mg PO [id number] * Lisinopril 5mg PO daily * Patient is currently dialysis-->/Tuesday schedule * 1st time dialysis * Discussed with patient at bedside, patient upon discharge could not afford his blood pressure medications (he was discharged with medications provided to him at bedside) and has been off his anti-hypertensive medications * Nephrology (Dr. Villasenor) on board Status: Acute (3) CKD (chronic kidney disease) stage 4, GFR 15-29 ml/min Assessment & Plan: Per last admission: Renal biopsy: thrombotic microangiopathy, vascular nephrosclerosis, globala and segmental glomerulosclerosis, intact linear glomeruar and distal tubular basement * Coreg 25mg PO bid * Clonidine 0.2mg PO bid * Hydralazine 50mg PO [id number] * Lisinopril 5mg PO daily * Permacath placed on 03/17/17 * Patient is currently dialysis--> schedule * 1st time dialysis * Discussed with patient at bedside, patient upon discharge could not afford his blood pressure medications (he was discharged with medications provided to him at bedside) and has been off his anti-hypertensive medications * Nephrology (Dr. Villasenor) on board * Given his low platelets, unable to have AV fistula placement at this time given bleeding risk Status: Chronic (4) Nephrotic syndrome Assessment & Plan: * Clonidine 0.2mg PO bid * Coreg 25mg PO bid * Hydralazine 50mg PO [id number] * started on Lisinopril 5mg PO daily * Patient is currently dialysis--> schedule * 1st time dialysis * Permacath placed on 01/15/17 * Discussed with patient at bedside, patient upon discharge could not afford his blood pressure medications (he was discharged with medications provided to him at bedside) and has been off his anti-hypertensive medications * Nephrology (Dr. Villasenor) on board Status: Chronic (5) Renal hematoma Assessment & Plan: History of renal hematoma last admission requiring IR embolization last admission secondary to hemorrhage s/p renal biopsy Status: Chronic (6) Pleural effusion Assessment & Plan: Chest xray (03/17/17): mild pulmonary venous congestion, cardiomegaly, right side dialysis catheter prior history of pleural effusion noted last admission patient is started on dialysis this admission (//Tuesday) Status: Chronic (7) Prophylactic measure Assessment & Plan: Contraindications to DVT ppx secondary to thrombocytopenia Pepcid 20mg PO daily for GI ppx Status: Acute - Assessment and Plan (Free Text) Assessment: Disposition: * Will need to taper patient off IV steroids * Blood pressure control * Patient is a first time dialysis and likely require lifelong, will need dialysis placement
[2017-03-22] MEDS: MethylPREDNISolone 40 mg Vial IVP SCH ×3 (06:19→21:48)
--- NOTE | 2017-03-22 07:41 | CP.PCM.PN ---
<Jose Elias Dennison - Last Filed: 03/22/17 18:31> Subjective - Date & Time of Evaluation Date of Evaluation: 03/22/17 Time of Evaluation: 07:30 - Subjective Subjective: Dr. Dennison PGY 1 Hospitalist Note Patient seen and evaluated at bedside. He states he feels fine and would like to know when he can return home. He denies any bleeding, headache, nausea, vomiting, fever, or chills. Per nursing, no adverse events over night. He is awaiting HD. Objective - Vital Signs/Intake and Output Vital Signs (last 24 hours): Temp Pulse Resp BP Pulse Ox 98.1 F 64 20 140/79 97 03/22/17 07:31 03/22/17 07:31 03/22/17 07:31 03/22/17 07:31 03/22/17 07:31 Intake and Output: 03/22/17 03/22/17 06:59 18:59 Intake Total 550 Balance 550 - Medications Medications: Current Medications Calcium Acetate (Phoslo) 667 mg PO TIDCC [facility] Last Admin: 03/21/17 17:49 Dose: 667 mg Carvedilol (Coreg) 25 mg PO BID [facility] Last Admin: 03/21/17 17:50 Dose: 25 mg Clonidine HCl (Catapres) 0.2 mg PO BID [facility] Last Admin: 03/21/17 17:50 Dose: 0.2 mg Famotidine (Pepcid) 20 mg PO DAILY [facility] Last Admin: 03/21/17 11:42 Dose: 20 mg Hydralazine HCl (Apresoline) 50 mg PO Q6H [facility] Last Admin: 03/22/17 03:18 Dose: 50 mg Lisinopril (Zestril) 5 mg PO DAILY [facility] Last Admin: 03/21/17 17:51 Dose: 5 mg Methylprednisolone (Solu-Medrol) 60 mg IVP Q8H [facility] Last Admin: 03/22/17 06:19 Dose: 60 mg Ondansetron HCl (Zofran Inj) 4 mg IVP Q6H PRN PRN Reason: Nausea/Vomiting Last Admin: 03/16/17 05:05 Dose: 4 mg - Labs Labs: 03/21/17 07:25 03/21/17 07:25 PT 13.3 SECONDS (9.7-12.2) H 03/17/17 06:24 INR 1.2 03/17/17 06:24 APTT 26 SECONDS (21-34) 03/17/17 06:24 - Constitutional Appears: Non-toxic, No Acute Distress - Head Exam Head Exam: ATRAUMATIC, NORMOCEPHALIC - Eye Exam Eye Exam: EOMI, Normal appearance, PERRL Pupil Exam: NORMAL ACCOMODATION, PERRL - ENT Exam ENT Exam: Mucous Membranes Moist, Normal Oropharynx - Neck Exam Neck Exam: Normal Inspection. absent: Tenderness, Thyromegaly - Respiratory Exam Respiratory Exam: Clear to Ausculation Bilateral. absent: Rales, Rhonchi, Wheezes - Cardiovascular Exam Cardiovascular Exam: REGULAR RHYTHM. absent: Gallop, Rubs, Murmur - GI/Abdominal Exam GI & Abdominal Exam: Soft, Normal Bowel Sounds. absent: Distended, Guarding, Rigid, Tenderness - Extremities Exam Extremities Exam: Normal Capillary Refill, Normal Inspection. absent: Pedal Edema, Tenderness - Back Exam Back Exam: NORMAL INSPECTION. absent: rash noted, tenderness - Neurological Exam Neurological Exam: Alert, Awake, CN II-XII Intact, Oriented x3 - Psychiatric Exam Psychiatric exam: Normal Affect, Normal Mood - Skin Skin Exam: Dry, Intact, Normal Color, Warm Assessment and Plan - Assessment and Plan (Free Text) Plan: Atypical HUS * Heme-onc (Dr. 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 * Per last admission: Renal biopsy: thrombotic microangiopathy, vascular nephrosclerosis, globala and segmental glomerulosclerosis, intact linear glomeruar and distal tubular basement * During prior admission, platelets refractory to plasmapheresis, IV steroids, and transient improvement in platelets s/p multiple transfusion * Patient is currently on Soliris (Eculuazmab); approved by [employer] * During this admission: patient is on IV steroids, has received Iv desmopressin , and 4 platelets transfusion * Trend platelets: today is 56,000 * Monitor for bleeding episodes and skin changes * None reported per discussion with patient today Hypertensive Urgency * Improved after HD * Coreg 25mg PO bid * Clonidine 0.2mg PO bid * Hydralazine 50mg PO [id number] * Lisinopril 5mg PO daily * Patient is currently dialysis-->/Tuesday schedule * 2nd time dialysis today * Discussed with patient at bedside, patient upon discharge could not afford his blood pressure medications (he was discharged with medications provided to him at bedside) and has been off his anti-hypertensive medications * Nephrology (Dr. Villasenor) on board CKD stage 4 Per last admission: Renal biopsy: thrombotic microangiopathy, vascular nephrosclerosis, globala and segmental glomerulosclerosis, intact linear glomeruar and distal tubular basement * Coreg 25mg PO bid * Clonidine 0.2mg PO bid * Hydralazine 50mg PO [id number] * Lisinopril 5mg PO daily * Permacath placed on 03/17/17 * Patient is currently dialysis--> schedule * 2nd time dialysis today * Discussed with patient at bedside, patient upon discharge could not afford his blood pressure medications (he was discharged with medications provided to him at bedside) and has been off his anti-hypertensive medications * Nephrology (Dr. Villasenor) on board * Given his low platelets, unable to have AV fistula placement at this time given bleeding risk Nephrotic Syndrome * Clonidine 0.2mg PO bid * Coreg 25mg PO bid * Hydralazine 50mg PO [id number] * started on Lisinopril 5mg PO daily * Patient is currently dialysis--> schedule * 2nd time dialysis today * Permacath placed on 01/15/17 * Discussed with patient at bedside, patient upon discharge could not afford his blood pressure medications (he was discharged with medications provided to him at bedside) and has been off his anti-hypertensive medications * Nephrology (Dr. Villasenor) on board Renal Hematoma History of renal hematoma last admission requiring IR embolization last admission secondary to hemorrhage s/p renal biopsy Pleural Effusion Chest xray (03/17/17): mild pulmonary venous congestion, cardiomegaly, right side dialysis catheter prior history of pleural effusion noted last admission patient is started on dialysis this admission (//Tuesday) PPX: Contraindications to DVT ppx secondary to thrombocytopenia Pepcid 20mg PO daily for GI ppx Disposition: * Will need to taper patient off IV steroids * Blood pressure control * Patient is a 2nd time dialysis and likely require lifelong, will need dialysis placement Assessment and plan discussed with attending physican. <Odette Quinones V - Last Filed: 03/22/17 22:55> Objective - Vital Signs/Intake and Output Vital Signs (last 24 hours): Temp Pulse Resp BP Pulse Ox 97.5 F L 74 20 138/65 97 03/22/17 16:00 03/22/17 16:00 03/22/17 16:00 03/22/17 17:32 03/22/17 16:00 Intake and Output: 03/22/17 03/23/17 18:59 06:59 Intake Total 250 Balance 250 - Medications Medications: Current Medications Calcium Acetate (Phoslo) 667 mg PO TIDCC [facility] Last Admin: 03/22/17 17:31 Dose: 667 mg Carvedilol (Coreg) 25 mg PO BID [facility] Last Admin: 03/22/17 17:32 Dose: 25 mg Clonidine HCl (Catapres) 0.2 mg PO BID [facility] Last Admin: 03/22/17 17:32 Dose: 0.2 mg Famotidine (Pepcid) 20 mg PO DAILY [facility] Last Admin: 03/22/17 11:04 Dose: Not Given Hydralazine HCl (Apresoline) 50 mg PO Q6H [facility] Last Admin: 03/22/17 21:45 Dose: 50 mg Lisinopril (Zestril) 5 mg PO DAILY [facility] Last Admin: 03/22/17 11:04 Dose: Not Given Methylprednisolone (Solu-Medrol) 40 mg IVP Q8 [facility] Last Admin: 03/22/17 21:48 Dose: 40 mg Ondansetron HCl (Zofran Inj) 4 mg IVP Q6H PRN PRN Reason: Nausea/Vomiting Last Admin: 03/16/17 05:05 Dose: 4 mg - Labs Labs: 03/22/17 08:02 03/22/17 08:02 PT 13.3 SECONDS (9.7-12.2) H 03/17/17 06:24 INR 1.2 03/17/17 06:24 APTT 26 SECONDS (21-34) 03/17/17 06:24 Assessment and Plan (1) Atypical hemolytic uremic syndrome Status: Acute (2) Hypertensive urgency Status: Acute (3) CKD (chronic kidney disease) stage 4, GFR 15-29 ml/min Status: Chronic (4) Nephrotic syndrome Status: Chronic (5) Renal hematoma Status: Chronic (6) Pleural effusion Status: Chronic (7) Prophylactic measure Status: Acute Attending/Attestation - Attestation I have personally seen and examined this patient.: Yes I have fully participated in the care of the patient.: Yes I have reviewed all pertinent clinical information, including history, physical exam and plan: Yes Notes (Text): Patient seen, examined, and case discussed with day-time resident. Patient seen in dialysis today. Patient denies acute complaints. Would like to go home. Explained he will need to have a place for dialysis first before he can be discharged. Follow-up with case management and social work Patient's IV steroid to Solumedrol 40mg IV Q 8 hours. Platelets remain at 50,000, no reported bleeding events, no rashes to note Assessment/Plan (1) Atypical hemolytic uremic syndrome Assessment & Plan: * Heme-onc (Dr. 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 * Per last admission: Renal biopsy: thrombotic microangiopathy, vascular nephrosclerosis, globala and segmental glomerulosclerosis, intact linear glomeruar and distal tubular basement * During prior admission, platelets refractory to plasmapheresis, IV steroids, and transient improvement in platelets s/p multiple transfusion * Patient is currently on Soliris (Eculuazmab); approved by [employer] * During this admission: patient is on IV steroids, has received Iv desmopressin , and 4 platelets transfusion * Trend platelets: today is 50,000 * Monitor for bleeding episodes and skin changes * None reported per discussion with patient today * Taper Solumedrol 40mg IV Q 8 hours Status: Acute (2) Hypertensive urgency Assessment & Plan: * Controlled * Coreg 25mg PO bid * Clonidine 0.2mg PO bid * Hydralazine 50mg PO [id number] * Lisinopril 5mg PO daily * Patient is currently dialysis-->/Tuesday schedule * 1st time dialysis * Discussed with patient at bedside prior convo, patient upon discharge could not afford his blood pressure medications (he was discharged with medications provided to him at bedside) and has been off his anti-hypertensive medications * Nephrology (Dr. Villasenor) on board Status: Acute (3) CKD (chronic kidney disease) stage 4, GFR 15-29 ml/min Assessment & Plan: Per last admission: Renal biopsy: thrombotic microangiopathy, vascular nephrosclerosis, globala and segmental glomerulosclerosis, intact linear glomeruar and distal tubular basement * Coreg 25mg PO bid * Clonidine 0.2mg PO bid * Hydralazine 50mg PO [id number] * Lisinopril 5mg PO daily * Permacath placed on 03/17/17 * Patient is currently dialysis--> schedule * 1st time dialysis * Discussed with patient at bedside in prior conversation, patient upon discharge could not afford his blood pressure medications (he was discharged with medications provided to him at bedside) and has been off his anti- hypertensive medications * Nephrology (Dr. Villasenor) on board * Given his low platelets, unable to have AV fistula placement at this time given bleeding risk Status: Chronic (4) Nephrotic syndrome Assessment & Plan: * Clonidine 0.2mg PO bid * Coreg 25mg PO bid * Hydralazine 50mg PO [id number] * Lisinopril 5mg PO daily * Patient is currently dialysis--> schedule * 1st time dialysis * Permacath placed on 01/15/17 * Discussed with patient at bedside in prior convo, patient upon discharge could not afford his blood pressure medications (he was discharged with medications provided to him at bedside) and has been off his anti-hypertensive medications * Nephrology (Dr. Villasenor) on board Status: Chronic (5) Renal hematoma Assessment & Plan: History of renal hematoma last admission requiring IR embolization last admission secondary to hemorrhage s/p renal biopsy Status: Chronic (6) Pleural effusion Assessment & Plan: Chest xray (03/17/17): mild pulmonary venous congestion, cardiomegaly, right side dialysis catheter prior history of pleural effusion noted last admission patient is started on dialysis this admission (//Tuesday) Status: Chronic (7) Prophylactic measure Assessment & Plan: Contraindications to DVT ppx secondary to thrombocytopenia Pepcid 20mg PO daily for GI ppx Status: Acute Disposition: * Will need to taper patient off IV steroids * Blood pressure control * Patient is a first time dialysis and likely require lifelong, will need dialysis placement. Case management to follow.
[2017-03-22 09:04] LABS: HEMATOCRIT 29.5 % (35.0-51.0); MEAN CELL VOLUME 90.2 fL (80.0-94.0); MEAN CORPUSCULAR HEMOGLOBIN 29.1 pg (27.0-31.0); MEAN CORPUSCULAR HGB CONC 32.3 g/dL (33.0-37.0); MEAN PLATELET VOLUME 9.7 fL (7.2-11.7); POTASSIUM 3.4 mmol/L (3.6-5.2); WHITE BLOOD COUNT 12.4 K/uL (4.8-10.8)
[2017-03-22 09:06] LABS: BILIRUBIN,TOTAL 0.7 mg/dL (0.2-1.3); PLATELET COUNT 50 K/uL (130-400)
[2017-03-22 09:07] LABS: MAGNESIUM 2.6 mg/dL (1.6-2.3); PHOSPHOROUS 5.8 mg/dL (2.5-4.5); TOTAL PROTEIN 5.4 g/dL (6.3-8.3)
[2017-03-22 09:58] LABS: ALB/GLOB RATIO 1.3 (1.0-2.1)
[2017-03-22 10:17] LABS: LYMPH # 0.1 K/uL (1.0-4.3); MONO # 0.6 K/uL (0.0-0.8)
[2017-03-22 10:18] LABS: NEUTROPHIL 94 % (50-75); TOTAL CELLS COUNTED 100
[2017-03-22 10:19] LABS: GIANT PLATELETS PRESENT; LARGE PLATELETS PRESENT
--- NOTE | 2017-03-22 10:24 | CP.PCM.PN ---
Subjective - Date & Time of Evaluation Date of Evaluation: 03/22/17 Time of Evaluation: 10:22 - Subjective Subjective: seen and examined no bleeding for hd today bp stable steroid taper Objective - Vital Signs/Intake and Output Vital Signs (last 24 hours): Temp Pulse Resp BP Pulse Ox 98.1 F 64 20 140/79 97 03/22/17 07:31 03/22/17 07:31 03/22/17 07:31 03/22/17 07:31 03/22/17 07:31 Intake and Output: 03/22/17 03/22/17 06:59 18:59 Intake Total 550 Balance 550 - Medications Medications: Current Medications Calcium Acetate (Phoslo) 667 mg PO TIDCC [facility] Last Admin: 03/22/17 08:34 Dose: Not Given Carvedilol (Coreg) 25 mg PO BID [facility] Last Admin: 03/21/17 17:50 Dose: 25 mg Clonidine HCl (Catapres) 0.2 mg PO BID [facility] Last Admin: 03/21/17 17:50 Dose: 0.2 mg Famotidine (Pepcid) 20 mg PO DAILY [facility] Last Admin: 03/21/17 11:42 Dose: 20 mg Hydralazine HCl (Apresoline) 50 mg PO Q6H [facility] Last Admin: 03/22/17 09:34 Dose: Not Given Lisinopril (Zestril) 5 mg PO DAILY [facility] Last Admin: 03/21/17 17:51 Dose: 5 mg Methylprednisolone (Solu-Medrol) 60 mg IVP Q8H [facility] Last Admin: 03/22/17 06:19 Dose: 60 mg Ondansetron HCl (Zofran Inj) 4 mg IVP Q6H PRN PRN Reason: Nausea/Vomiting Last Admin: 03/16/17 05:05 Dose: 4 mg - Labs Labs: 03/22/17 08:02 03/22/17 08:02 PT 13.3 SECONDS (9.7-12.2) H 03/17/17 06:24 INR 1.2 03/17/17 06:24 APTT 26 SECONDS (21-34) 03/17/17 06:24 - Constitutional Appears: Non-toxic, No Acute Distress - Head Exam Head Exam: NORMAL INSPECTION - Eye Exam Eye Exam: Normal appearance - ENT Exam ENT Exam: Mucous Membranes Moist, Normal Exam - Neck Exam Neck Exam: Normal Inspection - Respiratory Exam Respiratory Exam: Clear to Ausculation Bilateral, NORMAL BREATHING PATTERN Additional comments: permcath - Cardiovascular Exam Cardiovascular Exam: REGULAR RHYTHM - GI/Abdominal Exam GI & Abdominal Exam: Distended, Soft, Normal Bowel Sounds - Extremities Exam Extremities Exam: Normal Inspection Assessment and Plan (1) Atypical hemolytic uremic syndrome Status: Acute (2) End stage renal disease Status: Acute (3) Hypertensive emergency Status: Acute (4) Other primary thrombocytopenia Status: Acute (5) Anemia Status: Acute - Assessment and Plan (Free Text) Assessment: maintain hd tts not a candidate for molly at this time steroid taper per heme, likely cause of azotemia as well. may increase lisinopril dose if bp high
[2017-03-22] MEDS ORDERED: MethylPREDNISolone 40 mg Vial IVP SCH (10:26)
--- NOTE | 2017-03-22 17:01 | CP.PCM.PN ---
Subjective - Date & Time of Evaluation Date of Evaluation: 03/22/17 Time of Evaluation: 17:00 - Subjective Subjective: No complaints. Objective - Vital Signs/Intake and Output Vital Signs (last 24 hours): Temp Pulse Resp BP Pulse Ox 97.8 F 63 15 121/75 95 03/22/17 09:30 03/22/17 13:00 03/22/17 09:30 03/22/17 13:00 03/22/17 13:00 Intake and Output: 03/22/17 03/22/17 06:59 18:59 Intake Total 550 250 Balance 550 250 - Medications Medications: Current Medications Calcium Acetate (Phoslo) 667 mg PO TIDCC [facility] Last Admin: 03/22/17 14:03 Dose: 667 mg Carvedilol (Coreg) 25 mg PO BID [facility] Last Admin: 03/22/17 11:03 Dose: Not Given Clonidine HCl (Catapres) 0.2 mg PO BID [facility] Last Admin: 03/22/17 11:03 Dose: Not Given Famotidine (Pepcid) 20 mg PO DAILY [facility] Last Admin: 03/22/17 11:04 Dose: Not Given Hydralazine HCl (Apresoline) 50 mg PO Q6H [facility] Last Admin: 03/22/17 14:03 Dose: 50 mg Lisinopril (Zestril) 5 mg PO DAILY [facility] Last Admin: 03/22/17 11:04 Dose: Not Given Methylprednisolone (Solu-Medrol) 40 mg IVP Q8 [facility] Last Admin: 03/22/17 14:03 Dose: 40 mg Ondansetron HCl (Zofran Inj) 4 mg IVP Q6H PRN PRN Reason: Nausea/Vomiting Last Admin: 03/16/17 05:05 Dose: 4 mg - Labs Labs: 03/22/17 08:02 03/22/17 08:02 PT 13.3 SECONDS (9.7-12.2) H 03/17/17 06:24 INR 1.2 03/17/17 06:24 APTT 26 SECONDS (21-34) 03/17/17 06:24 - Head Exam Head Exam: ATRAUMATIC - Eye Exam Eye Exam: Normal appearance - ENT Exam ENT Exam: Mucous Membranes Dry - Respiratory Exam Respiratory Exam: NORMAL BREATHING PATTERN - Cardiovascular Exam Cardiovascular Exam: +S1, +S2 - GI/Abdominal Exam GI & Abdominal Exam: Normal Bowel Sounds - Extremities Exam Extremities Exam: Normal Inspection Assessment and Plan (1) Hemolytic uremic syndrome Assessment & Plan: on eculizumab steroid taper Status: Acute
[2017-03-23] MEDS: MethylPREDNISolone 40 mg Vial IVP SCH ×2 (06:07→21:26)
[2017-03-23 08:34] LABS: HEMATOCRIT 32.2 % (35.0-51.0); MEAN CELL VOLUME 90.4 fL (80.0-94.0); MEAN CORPUSCULAR HEMOGLOBIN 29.5 pg (27.0-31.0); MEAN CORPUSCULAR HGB CONC 32.6 g/dL (33.0-37.0); MEAN PLATELET VOLUME 9.9 fL (7.2-11.7); RED CELL DISTRIBUTION WIDTH 14.4 % (11.5-14.5); WHITE BLOOD COUNT 16.4 K/uL (4.8-10.8)
[2017-03-23 09:26] LABS: POTASSIUM 3.7 mmol/L (3.6-5.2)
[2017-03-23 09:28] LABS: BILIRUBIN,TOTAL 0.9 mg/dL (0.2-1.3)
[2017-03-23 09:29] LABS: ALB/GLOB RATIO 1.3 (1.0-2.1); CALCIUM 8.2 mg/dl (8.6-10.4); TOTAL PROTEIN 5.4 g/dL (6.3-8.3)
--- NOTE | 2017-03-23 11:12 | CP.PCM.PN ---
Subjective - Date & Time of Evaluation Date of Evaluation: 03/23/17 Time of Evaluation: 11:11 - Subjective Subjective: no complaints no bleeding Objective - Vital Signs/Intake and Output Vital Signs (last 24 hours): Temp Pulse Resp BP Pulse Ox 98.3 F 66 20 130/72 95 03/23/17 08:00 03/23/17 08:00 03/23/17 08:00 03/23/17 10:54 03/23/17 08:00 - Medications Medications: Current Medications Calcium Acetate (Phoslo) 667 mg PO TIDCC [facility] Last Admin: 03/23/17 08:48 Dose: 667 mg Carvedilol (Coreg) 25 mg PO BID [facility] Last Admin: 03/23/17 10:54 Dose: 25 mg Clonidine HCl (Catapres) 0.2 mg PO BID [facility] Last Admin: 03/23/17 10:54 Dose: 0.2 mg Famotidine (Pepcid) 20 mg PO DAILY [facility] Last Admin: 03/23/17 10:54 Dose: 20 mg Hydralazine HCl (Apresoline) 50 mg PO Q6H [facility] Last Admin: 03/23/17 06:07 Dose: 50 mg Lisinopril (Zestril) 5 mg PO DAILY [facility] Last Admin: 03/23/17 10:54 Dose: 5 mg Methylprednisolone (Solu-Medrol) 40 mg IVP Q8 [facility] Last Admin: 03/23/17 06:07 Dose: 40 mg Ondansetron HCl (Zofran Inj) 4 mg IVP Q6H PRN PRN Reason: Nausea/Vomiting Last Admin: 03/16/17 05:05 Dose: 4 mg - Labs Labs: 03/23/17 08:04 03/23/17 08:04 PT 13.3 SECONDS (9.7-12.2) H 03/17/17 06:24 INR 1.2 03/17/17 06:24 APTT 26 SECONDS (21-34) 03/17/17 06:24 - Constitutional Appears: Non-toxic, No Acute Distress, Chronically Ill - Head Exam Head Exam: NORMAL INSPECTION - Eye Exam Eye Exam: Normal appearance - ENT Exam ENT Exam: Mucous Membranes Moist, Normal Exam - Neck Exam Neck Exam: Normal Inspection - Respiratory Exam Respiratory Exam: Clear to Ausculation Bilateral, NORMAL BREATHING PATTERN - Cardiovascular Exam Cardiovascular Exam: REGULAR RHYTHM, RRR (rt chest permcath) - GI/Abdominal Exam GI & Abdominal Exam: Soft, Normal Bowel Sounds - Extremities Exam Extremities Exam: Normal Inspection Assessment and Plan (1) Atypical hemolytic uremic syndrome Status: Acute (2) End stage renal disease Status: Acute (3) Hypertensive emergency Status: Acute (4) Other primary thrombocytopenia Status: Acute (5) Anemia Status: Acute - Assessment and Plan (Free Text) Assessment: maintain hd tts not a candidate for molly at this time steroid taper per heme, likely cause of azotemia as well. bp acceptable
[2017-03-23 14:25] LABS: BASO % 0.2 % (0.0-2.0); HEMATOCRIT 32.5 % (35.0-51.0); LYMPH # 2.5 K/uL (1.0-4.3); LYMPH % 13.6 % (20.0-40.0); MEAN CELL VOLUME 91.2 fL (80.0-94.0); MEAN CORPUSCULAR HEMOGLOBIN 29.5 pg (27.0-31.0); MEAN CORPUSCULAR HGB CONC 32.4 g/dL (33.0-37.0); MEAN PLATELET VOLUME 9.4 fL (7.2-11.7); MONO # 1.4 K/uL (0.0-0.8); MONO % 7.7 % (0.0-10.0); NRBC % 0.6 % (0.0-2.0); RED CELL DISTRIBUTION WIDTH 15.1 % (11.5-14.5); WHITE BLOOD COUNT 18.2 K/uL (4.8-10.8)
--- NOTE | 2017-03-23 18:43 | CP.PCM.PN ---
<Jose Elias Dennison - Last Filed: 03/23/17 18:41> Subjective - Date & Time of Evaluation Date of Evaluation: 03/23/17 Time of Evaluation: 07:15 - Subjective Subjective: Dr. Dennison PGY 1 Hospitalist Note Patient seen and evaluated at bedside. He states he is feeling good and has no complaints at this time. He is concerned about returning home but is aware that his platelet count has been low and his dialysis has to be arranged. He denies any nausea, vomiting, chest pain, SOB, fever, or chills. Objective - Vital Signs/Intake and Output Vital Signs (last 24 hours): Temp Pulse Resp BP Pulse Ox 98.1 F 60 20 122/77 97 03/23/17 15:40 03/23/17 15:40 03/23/17 15:40 03/23/17 17:58 03/23/17 15:40 - Medications Medications: Current Medications Calcium Acetate (Phoslo) 667 mg PO TIDCC [facility] Last Admin: 03/23/17 16:47 Dose: 667 mg Carvedilol (Coreg) 25 mg PO BID [facility] Last Admin: 03/23/17 17:58 Dose: 25 mg Clonidine HCl (Catapres) 0.2 mg PO BID [facility] Last Admin: 03/23/17 17:58 Dose: 0.2 mg Famotidine (Pepcid) 20 mg PO DAILY [facility] Last Admin: 03/23/17 10:54 Dose: 20 mg Hydralazine HCl (Apresoline) 50 mg PO Q6H [facility] Last Admin: 03/23/17 17:58 Dose: 50 mg Lisinopril (Zestril) 5 mg PO DAILY [facility] Last Admin: 03/23/17 10:54 Dose: 5 mg Methylprednisolone (Solu-Medrol) 40 mg IVP Q8 [facility] Last Admin: 03/23/17 06:07 Dose: 40 mg Ondansetron HCl (Zofran Inj) 4 mg IVP Q6H PRN PRN Reason: Nausea/Vomiting Last Admin: 03/16/17 05:05 Dose: 4 mg - Labs Labs: 03/23/17 14:13 03/23/17 08:04 PT 13.3 SECONDS (9.7-12.2) H 03/17/17 06:24 INR 1.2 03/17/17 06:24 APTT 26 SECONDS (21-34) 03/17/17 06:24 - Constitutional Appears: Non-toxic, No Acute Distress - Head Exam Head Exam: ATRAUMATIC, NORMOCEPHALIC - Eye Exam Eye Exam: EOMI, Normal appearance, PERRL Pupil Exam: NORMAL ACCOMODATION, PERRL - ENT Exam ENT Exam: Mucous Membranes Moist - Respiratory Exam Respiratory Exam: Clear to Ausculation Bilateral, NORMAL BREATHING PATTERN. absent: Rales, Rhonchi, Wheezes - Cardiovascular Exam Cardiovascular Exam: REGULAR RHYTHM, +S1, +S2. absent: Gallop, Rubs, Murmur - GI/Abdominal Exam GI & Abdominal Exam: Soft, Normal Bowel Sounds. absent: Tenderness - Extremities Exam Extremities Exam: Normal Inspection. absent: Pedal Edema, Tenderness - Back Exam Back Exam: NORMAL INSPECTION. absent: rash noted, tenderness - Neurological Exam Neurological Exam: Alert, Awake, CN II-XII Intact, Oriented x3 - Psychiatric Exam Psychiatric exam: Normal Affect, Normal Mood - Skin Skin Exam: Dry, Intact, Warm Assessment and Plan - Assessment and Plan (Free Text) Plan: Atypical HUS * Heme-onc (Dr. 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 * Per last admission: Renal biopsy: thrombotic microangiopathy, vascular nephrosclerosis, globala and segmental glomerulosclerosis, intact linear glomeruar and distal tubular basement * During prior admission, platelets refractory to plasmapheresis, IV steroids, and transient improvement in platelets s/p multiple transfusion * Patient is currently on Soliris (Eculuazmab); approved by [employer] * During this admission: patient is on IV steroids, has received Iv desmopressin , and 4 platelets transfusion * Trend platelets: today is 38,000 * Monitor for bleeding episodes and skin changes * None reported per discussion with patient today * Taper Solumedrol 40mg IV Q 8 hours Hypertensive Urgency * Improved after HD * Coreg 25mg PO bid * Clonidine 0.2mg PO bid * Hydralazine 50mg PO [id number] * Lisinopril 5mg PO daily * Patient is currently dialysis-->/Tuesday schedule * 2nd time dialysis yesterday * Discussed with patient at bedside, patient upon discharge could not afford his blood pressure medications (he was discharged with medications provided to him at bedside) and has been off his anti-hypertensive medications * Nephrology (Dr. Villasenor) on board CKD stage 4 Per last admission: Renal biopsy: thrombotic microangiopathy, vascular nephrosclerosis, globala and segmental glomerulosclerosis, intact linear glomeruar and distal tubular basement * Coreg 25mg PO bid * Clonidine 0.2mg PO bid * Hydralazine 50mg PO [id number] * Lisinopril 5mg PO daily * Permacath placed on 03/17/17 * Patient is currently dialysis--> schedule * 2nd time dialysis yesterday * Discussed with patient at bedside, patient upon discharge could not afford his blood pressure medications (he was discharged with medications provided to him at bedside) and has been off his anti-hypertensive medications * Nephrology (Dr. Villasenor) on board * Given his low platelets, unable to have AV fistula placement at this time given bleeding risk Nephrotic Syndrome * Clonidine 0.2mg PO bid * Coreg 25mg PO bid * Hydralazine 50mg PO [id number] * started on Lisinopril 5mg PO daily * Patient is currently dialysis--> schedule * 2nd time dialysis yesterday * Permacath placed on 01/15/17 * Discussed with patient at bedside, patient upon discharge could not afford his blood pressure medications (he was discharged with medications provided to him at bedside) and has been off his anti-hypertensive medications * Nephrology (Dr. Villasenor) on board Renal Hematoma * History of renal hematoma last admission requiring IR embolization last admission secondary to hemorrhage s/p renal biopsy Pleural Effusion * Chest xray (03/17/17): mild pulmonary venous congestion, cardiomegaly, right side dialysis catheter * prior history of pleural effusion noted last admission * patient is started on dialysis this admission (//Tuesday) Leukocytosis * Likely steroid induced * Due to immunocompromised state, f/u blood,urine, and sputum cultures PPX: * Contraindications to DVT ppx secondary to thrombocytopenia * Pepcid 20mg PO daily for GI ppx Disposition: * Will need to taper patient off IV steroids * Blood pressure control * Patient is a 2nd time dialysis and likely require lifelong, will need dialysis placement Assessment and plan discussed with attending physician. <Odette Quinones V - Last Filed: 03/25/17 08:48> Objective - Vital Signs/Intake and Output Vital Signs (last 24 hours): Temp Pulse Resp BP Pulse Ox 98.3 F 89 20 145/81 96 03/25/17 08:28 03/25/17 08:28 03/25/17 08:28 03/25/17 08:28 03/25/17 08:28 Intake and Output: 03/25/17 03/25/17 06:59 18:59 Intake Total 610 Balance 610 - Medications Medications: Current Medications Calcium Acetate (Phoslo) 667 mg PO TIDCC [facility] Last Admin: 03/25/17 08:09 Dose: 667 mg Carvedilol (Coreg) 25 mg PO BID [facility] Last Admin: 03/24/17 17:20 Dose: 25 mg Clonidine HCl (Catapres) 0.2 mg PO BID [facility] Last Admin: 03/24/17 17:19 Dose: 0.2 mg Famotidine (Pepcid) 20 mg PO DAILY [facility] Last Admin: 03/24/17 14:00 Dose: 20 mg Hydralazine HCl (Apresoline) 50 mg PO Q6H [facility] Last Admin: 03/25/17 06:47 Dose: 50 mg Lisinopril (Zestril) 5 mg PO DAILY [facility] Last Admin: 03/24/17 09:39 Dose: Not Given Methylprednisolone (Solu-Medrol) 40 mg IVP Q12 [facility] Last Admin: 03/24/17 21:41 Dose: 40 mg Ondansetron HCl (Zofran Inj) 4 mg IVP Q6H PRN PRN Reason: Nausea/Vomiting Last Admin: 03/16/17 05:05 Dose: 4 mg - Labs Labs: 03/25/17 07:07 03/25/17 07:07 PT 13.3 SECONDS (9.7-12.2) H 03/17/17 06:24 INR 1.2 03/17/17 06:24 APTT 26 SECONDS (21-34) 03/17/17 06:24 Assessment and Plan (1) Atypical hemolytic uremic syndrome Status: Acute (2) Hypertensive urgency Status: Acute (3) CKD (chronic kidney disease) stage 4, GFR 15-29 ml/min Status: Chronic (4) Nephrotic syndrome Status: Chronic (5) Renal hematoma Status: Chronic (6) Pleural effusion Status: Chronic (7) Prophylactic measure Status: Acute Attending/Attestation - Attestation I have personally seen and examined this patient.: Yes I have fully participated in the care of the patient.: Yes I have reviewed all pertinent clinical information, including history, physical exam and plan: Yes Notes (Text): This is a late computer entry for 03/23/17. Patient seen, examined, and case discussed with day-time resident. Patient seen today at bedside. Patient denies acute complaints. Would like to go home. No bleeding episodes. No pain noted. Patient's IV steroid to Solumedrol 40mg IV Q 8 hours; will continue to taper. Patient ordered for blood cultures, and urine culture in light of leukocytosis, but likely due to steroids. Assessment/Plan (1) Atypical hemolytic uremic syndrome Assessment & Plan: * Heme-onc (Dr. 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 * Per last admission: Renal biopsy: thrombotic microangiopathy, vascular nephrosclerosis, globala and segmental glomerulosclerosis, intact linear glomeruar and distal tubular basement * During prior admission, platelets refractory to plasmapheresis, IV steroids, and transient improvement in platelets s/p multiple transfusion * Patient is currently on Soliris (Eculuazmab); approved by [employer] * During this admission: patient is on IV steroids, has received Iv desmopressin , and 4 platelets transfusion * Trend platelets: today is 50,000 * Monitor for bleeding episodes and skin changes * None reported per discussion with patient today * Taper Solumedrol 40mg IV Q 8 hours Status: Acute (2) Hypertensive urgency Assessment & Plan: * Controlled * Coreg 25mg PO bid * Clonidine 0.2mg PO bid * Hydralazine 50mg PO [id number] * Lisinopril 5mg PO daily * Patient is currently dialysis-->/Tuesday schedule * 1st time dialysis * Discussed with patient at bedside prior convo, patient upon discharge could not afford his blood pressure medications (he was discharged with medications provided to him at bedside) and has been off his anti-hypertensive medications * Nephrology (Dr. Villasenor) on board Status: Acute (3) CKD (chronic kidney disease) stage 4, GFR 15-29 ml/min Assessment & Plan: Per last admission: Renal biopsy: thrombotic microangiopathy, vascular nephrosclerosis, globala and segmental glomerulosclerosis, intact linear glomeruar and distal tubular basement * Coreg 25mg PO bid * Clonidine 0.2mg PO bid * Hydralazine 50mg PO [id number] * Lisinopril 5mg PO daily * Permacath placed on 03/17/17 * Patient is currently dialysis--> schedule * 1st time dialysis * I discussed with patient at bedside in prior conversation, patient upon discharge could not afford his blood pressure medications (he was discharged with medications provided to him at bedside) and has been off his anti- hypertensive medications * Nephrology (Dr. Villasenor) on board * Given his low platelets, unable to have AV fistula placement at this time given bleeding risk Status: Chronic (4) Nephrotic syndrome Assessment & Plan: * Clonidine 0.2mg PO bid * Coreg 25mg PO bid * Hydralazine 50mg PO [id number] * Lisinopril 5mg PO daily * Patient is currently dialysis--> schedule * 1st time dialysis * Permacath placed on 01/15/17 * Discussed with patient at bedside in prior convo, patient upon discharge could not afford his blood pressure medications (he was discharged with medications provided to him at bedside) and has been off his anti-hypertensive medications * Nephrology (Dr. Villasenor) on board Status: Chronic (5) Renal hematoma Assessment & Plan: History of renal hematoma last admission requiring IR embolization last admission secondary to hemorrhage s/p renal biopsy Status: Chronic (6) Pleural effusion Assessment & Plan: Chest xray (03/17/17): mild pulmonary venous congestion, cardiomegaly, right side dialysis catheter prior history of pleural effusion noted last admission patient is started on dialysis this admission (//Tuesday) Status: Chronic (7) Leukocytosis Monitor blood cultures, and urine culture Patient is currently being tapered off IV steroids will continue to monitor WBC (8) Prophylactic measure Assessment & Plan: Contraindications to DVT ppx secondary to thrombocytopenia Pepcid 20mg PO daily for GI ppx Status: Acute Disposition: * Will need to taper patient off IV steroids * Blood pressure control * Patient is a first time dialysis and likely require lifelong, will need dialysis placement. Case management to follow.
[2017-03-24] MEDS: MethylPREDNISolone 40 mg Vial IVP SCH ×2 (06:01→21:41)
[2017-03-24 08:12] LABS: BASO % 0.2 % (0.0-2.0); HEMATOCRIT 32.5 % (35.0-51.0); LYMPH # 2.8 K/uL (1.0-4.3); LYMPH % 13.9 % (20.0-40.0); MEAN CELL VOLUME 90.5 fL (80.0-94.0); MEAN CORPUSCULAR HEMOGLOBIN 29.6 pg (27.0-31.0); MEAN CORPUSCULAR HGB CONC 32.7 g/dL (33.0-37.0); MEAN PLATELET VOLUME 9.7 fL (7.2-11.7); MONO # 0.8 K/uL (0.0-0.8); MONO % 3.8 % (0.0-10.0); NRBC % 0.4 % (0.0-2.0); RED CELL DISTRIBUTION WIDTH 14.8 % (11.5-14.5); WHITE BLOOD COUNT 19.8 K/uL (4.8-10.8)
[2017-03-24 08:51] LABS: ALB/GLOB RATIO 1.1 (1.0-2.1); BILIRUBIN,TOTAL 0.3 mg/dL (0.2-1.3); CALCIUM 8.1 mg/dl (8.6-10.4)
--- NOTE | 2017-03-24 10:08 | CP.PCM.PN ---
Subjective - Date & Time of Evaluation Date of Evaluation: 03/24/17 Time of Evaluation: 10:06 - Subjective Subjective: Seen on dialysis now- UF 1500ml Feels better BP well controlled Objective - Vital Signs/Intake and Output Vital Signs (last 24 hours): Temp Pulse Resp BP Pulse Ox 98.5 F 59 L 20 131/74 97 03/24/17 08:24 03/24/17 08:24 03/24/17 08:24 03/24/17 08:24 03/24/17 08:24 - Medications Medications: Current Medications Calcium Acetate (Phoslo) 667 mg PO TIDCC [facility] Last Admin: 03/24/17 09:00 Dose: 667 mg Carvedilol (Coreg) 25 mg PO BID [facility] Last Admin: 03/24/17 09:38 Dose: Not Given Clonidine HCl (Catapres) 0.2 mg PO BID [facility] Last Admin: 03/24/17 09:37 Dose: Not Given Famotidine (Pepcid) 20 mg PO DAILY [facility] Last Admin: 03/24/17 09:38 Dose: Not Given Hydralazine HCl (Apresoline) 50 mg PO Q6H [facility] Last Admin: 03/24/17 06:01 Dose: 50 mg Lisinopril (Zestril) 5 mg PO DAILY [facility] Last Admin: 03/24/17 09:39 Dose: Not Given Methylprednisolone (Solu-Medrol) 40 mg IVP Q8 [facility] Last Admin: 03/24/17 06:01 Dose: 40 mg Ondansetron HCl (Zofran Inj) 4 mg IVP Q6H PRN PRN Reason: Nausea/Vomiting Last Admin: 03/16/17 05:05 Dose: 4 mg - Labs Labs: 03/24/17 08:02 03/24/17 08:02 PT 13.3 SECONDS (9.7-12.2) H 03/17/17 06:24 INR 1.2 03/17/17 06:24 APTT 26 SECONDS (21-34) 03/17/17 06:24 - Constitutional Appears: No Acute Distress, Chronically Ill - Head Exam Head Exam: ATRAUMATIC, NORMAL INSPECTION - Eye Exam Eye Exam: EOMI, Normal appearance - Neck Exam Neck Exam: Normal Inspection. absent: Tenderness - Respiratory Exam Respiratory Exam: Clear to Ausculation Bilateral, NORMAL BREATHING PATTERN - Cardiovascular Exam Cardiovascular Exam: REGULAR RHYTHM, +S1 - GI/Abdominal Exam GI & Abdominal Exam: Soft. absent: Tenderness - Extremities Exam Extremities Exam: Normal Inspection. absent: Tenderness - Neurological Exam Neurological Exam: Awake, CN II-XII Intact - Skin Skin Exam: Dry, Warm Assessment and Plan (1) Hypertensive chronic kidney disease with stage 5 chronic kidney disease or end stage renal disease Status: Acute (2) End stage renal disease Status: Acute (3) Atypical hemolytic uremic syndrome Status: Acute (4) Malignant essential hypertension Status: Acute - Assessment and Plan (Free Text) Plan: Taper steroids Same BP meds Dialysis TTS Outpt dialysis needs to be arranged
--- NOTE | 2017-03-24 13:23 | CP.PCM.PN ---
Subjective - Date & Time of Evaluation Date of Evaluation: 03/24/17 Time of Evaluation: 12:30 - Subjective Subjective: No complaints. Objective - Vital Signs/Intake and Output Vital Signs (last 24 hours): Temp Pulse Resp BP Pulse Ox 98 F 57 L 18 124/74 97 03/24/17 13:10 03/24/17 13:10 03/24/17 09:40 03/24/17 13:10 03/24/17 13:10 - Medications Medications: Current Medications Calcium Acetate (Phoslo) 667 mg PO TIDCC [facility] Last Admin: 03/24/17 09:00 Dose: 667 mg Carvedilol (Coreg) 25 mg PO BID [facility] Last Admin: 03/24/17 09:38 Dose: Not Given Clonidine HCl (Catapres) 0.2 mg PO BID [facility] Last Admin: 03/24/17 09:37 Dose: Not Given Famotidine (Pepcid) 20 mg PO DAILY [facility] Last Admin: 03/24/17 09:38 Dose: Not Given Hydralazine HCl (Apresoline) 50 mg PO Q6H [facility] Last Admin: 03/24/17 06:01 Dose: 50 mg Lisinopril (Zestril) 5 mg PO DAILY [facility] Last Admin: 03/24/17 09:39 Dose: Not Given Methylprednisolone (Solu-Medrol) 40 mg IVP Q12 [facility] Ondansetron HCl (Zofran Inj) 4 mg IVP Q6H PRN PRN Reason: Nausea/Vomiting Last Admin: 03/16/17 05:05 Dose: 4 mg - Labs Labs: 03/24/17 08:02 03/24/17 08:02 PT 13.3 SECONDS (9.7-12.2) H 03/17/17 06:24 INR 1.2 03/17/17 06:24 APTT 26 SECONDS (21-34) 03/17/17 06:24 - Head Exam Head Exam: ATRAUMATIC - Eye Exam Eye Exam: Normal appearance - ENT Exam ENT Exam: Mucous Membranes Dry - Respiratory Exam Respiratory Exam: NORMAL BREATHING PATTERN - Cardiovascular Exam Cardiovascular Exam: +S1, +S2 - GI/Abdominal Exam GI & Abdominal Exam: Normal Bowel Sounds - Extremities Exam Extremities Exam: Normal Inspection Assessment and Plan (1) Hemolytic uremic syndrome Assessment & Plan: on eculizumab taper steroids outpatient f/u Status: Acute
--- NOTE | 2017-03-24 18:37 | CP.PCM.PN ---
<Jose Elias Dennison - Last Filed: 03/24/17 18:33> Subjective - Date & Time of Evaluation Date of Evaluation: 03/24/17 Time of Evaluation: 07:45 - Subjective Subjective: Dr. Dennison PGY 1 Hospitalist Note Patient seen and evaluated at bedside. He states he is feeling ok and has no complaints at this time. He is awaiting dialysis this morning. He denies any nausea, vomiting, chest pain, SOB, fever, or chills. No adverse events per nursing over night. Objective - Vital Signs/Intake and Output Vital Signs (last 24 hours): Temp Pulse Resp BP Pulse Ox 98.7 F 62 20 125/89 97 03/24/17 16:00 03/24/17 16:00 03/24/17 16:00 03/24/17 17:20 03/24/17 16:00 Intake and Output: 03/24/17 03/24/17 06:59 18:59 Intake Total 400 Balance 400 - Medications Medications: Current Medications Calcium Acetate (Phoslo) 667 mg PO TIDCC [facility] Last Admin: 03/24/17 17:18 Dose: 667 mg Carvedilol (Coreg) 25 mg PO BID [facility] Last Admin: 03/24/17 17:20 Dose: 25 mg Clonidine HCl (Catapres) 0.2 mg PO BID [facility] Last Admin: 03/24/17 17:19 Dose: 0.2 mg Famotidine (Pepcid) 20 mg PO DAILY [facility] Last Admin: 03/24/17 14:00 Dose: 20 mg Hydralazine HCl (Apresoline) 50 mg PO Q6H [facility] Last Admin: 03/24/17 17:56 Dose: 50 mg Lisinopril (Zestril) 5 mg PO DAILY [facility] Last Admin: 03/24/17 09:39 Dose: Not Given Methylprednisolone (Solu-Medrol) 40 mg IVP Q12 [facility] Ondansetron HCl (Zofran Inj) 4 mg IVP Q6H PRN PRN Reason: Nausea/Vomiting Last Admin: 03/16/17 05:05 Dose: 4 mg - Labs Labs: 03/24/17 08:02 03/24/17 08:02 PT 13.3 SECONDS (9.7-12.2) H 03/17/17 06:24 INR 1.2 03/17/17 06:24 APTT 26 SECONDS (21-34) 03/17/17 06:24 - Constitutional Appears: Non-toxic, No Acute Distress - Head Exam Head Exam: ATRAUMATIC, NORMOCEPHALIC - Eye Exam Eye Exam: EOMI, Normal appearance, PERRL Pupil Exam: NORMAL ACCOMODATION, PERRL - ENT Exam ENT Exam: Mucous Membranes Moist, Normal Oropharynx - Neck Exam Neck Exam: Normal Inspection. absent: Thyromegaly - Respiratory Exam Respiratory Exam: Clear to Ausculation Bilateral, NORMAL BREATHING PATTERN. absent: Rales, Rhonchi, Wheezes - Cardiovascular Exam Cardiovascular Exam: REGULAR RHYTHM, +S1, +S2. absent: Gallop, Rubs, Murmur - GI/Abdominal Exam GI & Abdominal Exam: Soft, Normal Bowel Sounds. absent: Tenderness - Extremities Exam Extremities Exam: Normal Capillary Refill, Normal Inspection. absent: Pedal Edema, Tenderness - Back Exam Back Exam: NORMAL INSPECTION. absent: rash noted, tenderness - Neurological Exam Neurological Exam: Alert, Awake, CN II-XII Intact, Oriented x3 - Psychiatric Exam Psychiatric exam: Normal Affect, Normal Mood - Skin Skin Exam: Dry, Intact, Normal Color, Warm Assessment and Plan - Assessment and Plan (Free Text) Plan: Atypical HUS * Heme-onc (Dr. 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 * Per last admission: Renal biopsy: thrombotic microangiopathy, vascular nephrosclerosis, globala and segmental glomerulosclerosis, intact linear glomeruar and distal tubular basement * During prior admission, platelets refractory to plasmapheresis, IV steroids, and transient improvement in platelets s/p multiple transfusion * Patient is currently on Soliris (Eculuazmab); approved by [employer] * During this admission: patient is on IV steroids, has received Iv desmopressin , and 4 platelets transfusion * Trend platelets: today is 31,000 * Monitor for bleeding episodes and skin changes * None reported per discussion with patient today * Taper Solumedrol 40mg IV Q 12 hours Hypertensive Urgency * Improved after HD * Coreg 25mg PO bid * Clonidine 0.2mg PO bid * Hydralazine 50mg PO [id number] * Lisinopril 5mg PO daily * Patient is currently dialysis-->/Tuesday schedule * Discussed with patient at bedside, patient upon discharge could not afford his blood pressure medications (he was discharged with medications provided to him at bedside) and has been off his anti-hypertensive medications * Nephrology (Dr. Villasenor) on board CKD stage 4 Per last admission: Renal biopsy: thrombotic microangiopathy, vascular nephrosclerosis, globala and segmental glomerulosclerosis, intact linear glomeruar and distal tubular basement * Coreg 25mg PO bid * Clonidine 0.2mg PO bid * Hydralazine 50mg PO [id number] * Lisinopril 5mg PO daily * Permacath placed on 03/17/17 * Patient is currently dialysis--> schedule * Discussed with patient at bedside, patient upon discharge could not afford his blood pressure medications (he was discharged with medications provided to him at bedside) and has been off his anti-hypertensive medications * Nephrology (Dr. Villasenor) on board * Given his low platelets, unable to have AV fistula placement at this time given bleeding risk Nephrotic Syndrome * Clonidine 0.2mg PO bid * Coreg 25mg PO bid * Hydralazine 50mg PO [id number] * started on Lisinopril 5mg PO daily * Patient is currently dialysis--> schedule * Permacath placed on 01/15/17 * Discussed with patient at bedside, patient upon discharge could not afford his blood pressure medications (he was discharged with medications provided to him at bedside) and has been off his anti-hypertensive medications * Nephrology (Dr. Villasenor) on board Renal Hematoma * History of renal hematoma last admission requiring IR embolization last admission secondary to hemorrhage s/p renal biopsy Pleural Effusion * Chest xray (03/17/17): mild pulmonary venous congestion, cardiomegaly, right side dialysis catheter * prior history of pleural effusion noted last admission * patient is started on dialysis this admission (//Tuesday) Leukocytosis * Likely steroid induced * Due to immunocompromised state, * blood,urine, and sputum cultures negative to date PPX: * Contraindications to DVT ppx secondary to thrombocytopenia * Pepcid 20mg PO daily for GI ppx Disposition: * Will need to taper patient off IV steroids * Blood pressure control * Patient is a 2nd time dialysis and likely require lifelong, will need dialysis placement Assessment and plan discussed with attending physician. <Odette Quinones V - Last Filed: 03/25/17 20:11> Objective - Vital Signs/Intake and Output Vital Signs (last 24 hours): Temp Pulse Resp BP Pulse Ox 98.1 F 58 L 20 130/69 98 03/25/17 15:00 03/25/17 15:00 03/25/17 15:00 03/25/17 17:12 03/25/17 15:00 Intake and Output: 03/25/17 03/26/17 18:59 06:59 Intake Total 500 Balance 500 - Medications Medications: Current Medications Calcium Acetate (Phoslo) 667 mg PO TIDCC [facility] Last Admin: 03/25/17 17:12 Dose: 667 mg Carvedilol (Coreg) 25 mg PO BID [facility] Last Admin: 03/25/17 17:12 Dose: 25 mg Clonidine HCl (Catapres) 0.2 mg PO BID [facility] Last Admin: 03/25/17 17:12 Dose: 0.2 mg Famotidine (Pepcid) 20 mg PO DAILY [facility] Last Admin: 03/25/17 10:37 Dose: 20 mg Hydralazine HCl (Apresoline) 50 mg PO Q6H [facility] Last Admin: 03/25/17 18:22 Dose: 50 mg Lisinopril (Zestril) 5 mg PO DAILY [facility] Last Admin: 03/25/17 10:37 Dose: 5 mg Methylprednisolone (Solu-Medrol) 40 mg IVP Q12 [facility] Last Admin: 03/25/17 10:37 Dose: 40 mg Ondansetron HCl (Zofran Inj) 4 mg IVP Q6H PRN PRN Reason: Nausea/Vomiting Last Admin: 03/16/17 05:05 Dose: 4 mg - Labs Labs: 03/25/17 07:07 03/25/17 07:07 PT 13.3 SECONDS (9.7-12.2) H 03/17/17 06:24 INR 1.2 03/17/17 06:24 APTT 26 SECONDS (21-34) 03/17/17 06:24 Assessment and Plan (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 Patient seen, examined, and case discussed with day-time resident. Patient seen today at bedside. Patient denies acute complaints. Would like to go home. No bleeding episodes. No pain noted. Patient's IV steroid to Solumedrol 40mg IV Q 12 hours; will continue to taper. Blood cultures are negative thus far. Procalcitonin ordered. Assessment/Plan (1) Atypical hemolytic uremic syndrome Assessment & Plan: * Heme-onc (Dr. 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 * Per last admission: Renal biopsy: thrombotic microangiopathy, vascular nephrosclerosis, globala and segmental glomerulosclerosis, intact linear glomeruar and distal tubular basement * During prior admission, platelets refractory to plasmapheresis, IV steroids, and transient improvement in platelets s/p multiple transfusion * Patient is currently on Soliris (Eculuazmab); approved by [employer] * During this admission: patient is on IV steroids, has received Iv desmopressin , and 4 platelets transfusion * Trend platelets: today is 31,000 * Monitor for bleeding episodes and skin changes * None reported per discussion with patient today * Taper Solumedrol 40mg IV Q 12 hours Status: Acute (2) Hypertensive urgency Assessment & Plan: * Controlled * Coreg 25mg PO bid * Clonidine 0.2mg PO bid * Hydralazine 50mg PO [id number] * Lisinopril 5mg PO daily * Patient is currently dialysis-->/Tuesday schedule * 1st time dialysis * I had discussed with patient at bedside prior convo, patient upon discharge could not afford his blood pressure medications (he was discharged with medications provided to him at bedside) and has been off his anti-hypertensive medications * Nephrology (Dr. Villasenor) on board Status: Controlled (3) CKD (chronic kidney disease) stage 4, GFR 15-29 ml/min Assessment & Plan: Per last admission: Renal biopsy: thrombotic microangiopathy, vascular nephrosclerosis, globala and segmental glomerulosclerosis, intact linear glomeruar and distal tubular basement * Coreg 25mg PO bid * Clonidine 0.2mg PO bid * Hydralazine 50mg PO [id number] * Lisinopril 5mg PO daily * Permacath placed on 03/17/17 * Patient is currently dialysis--> schedule * 1st time dialysis * I discussed with patient at bedside in prior conversation, patient upon discharge could not afford his blood pressure medications (he was discharged with medications provided to him at bedside) and has been off his anti- hypertensive medications * Nephrology (Dr. Villasenor) on board * Given his low platelets, unable to have AV fistula placement at this time given bleeding risk Status: Chronic (4) Nephrotic syndrome Assessment & Plan: * Clonidine 0.2mg PO bid * Coreg 25mg PO bid * Hydralazine 50mg PO [id number] * Lisinopril 5mg PO daily * Patient is currently dialysis--> schedule * 1st time dialysis * Permacath placed on 01/15/17 * Discussed with patient at bedside in prior convo, patient upon discharge could not afford his blood pressure medications (he was discharged with medications provided to him at bedside) and has been off his anti-hypertensive medications * Nephrology (Dr. Villasenor) on board Status: Chronic (5) Renal hematoma Assessment & Plan: * History of renal hematoma last admission requiring IR embolization last admission secondary to hemorrhage s/p renal biopsy Status: Chronic (6) Pleural effusion Assessment & Plan: * Chest xray (03/17/17): mild pulmonary venous congestion, cardiomegaly, right side dialysis catheter * prior history of pleural effusion noted last admission * patient is started on dialysis this admission (//Tuesday) Status: Chronic (7) Leukocytosis * Monitor blood cultures, and urine culture * Patient is currently being tapered off IV steroids * will continue to monitor WBC * Ordered for procalcitonin (8) Prophylactic measure Assessment & Plan: * Contraindications to DVT ppx secondary to thrombocytopenia * Pepcid 20mg PO daily for GI ppx Status: Acute Disposition: * Will need to taper patient off IV steroids * Blood pressure control * Patient is a first time dialysis and likely require lifelong, will need dialysis placement. Case management to follow
[2017-03-25 07:27] LABS: BASO % 0.2 % (0.0-2.0); HEMATOCRIT 33.3 % (35.0-51.0); LYMPH # 1.5 K/uL (1.0-4.3); LYMPH % 7.8 % (20.0-40.0); MEAN CELL VOLUME 90.9 fL (80.0-94.0); MEAN CORPUSCULAR HEMOGLOBIN 30.4 pg (27.0-31.0); MEAN CORPUSCULAR HGB CONC 33.5 g/dL (33.0-37.0); MEAN PLATELET VOLUME 9.2 fL (7.2-11.7); MONO # 1.6 K/uL (0.0-0.8); NRBC % 0.4 % (0.0-2.0); RED CELL DISTRIBUTION WIDTH 14.6 % (11.5-14.5); WHITE BLOOD COUNT 19.4 K/uL (4.8-10.8)
[2017-03-25 07:48] LABS: PLATELET COUNT 23 K/uL (130-400)
[2017-03-25 07:51] LABS: POTASSIUM 4.3 mmol/L (3.6-5.2)
[2017-03-25 07:53] LABS: ALB/GLOB RATIO 1.2 (1.0-2.1); BILIRUBIN,TOTAL 0.7 mg/dL (0.2-1.3); TOTAL PROTEIN 5.3 g/dL (6.3-8.3)
[2017-03-25 07:54] LABS: CALCIUM 8.1 mg/dl (8.6-10.4)
[2017-03-25 09:01] LABS: NUCLEATED RED BLOOD CELL 1 % (0-0); TOTAL CELLS COUNTED 100
[2017-03-25 09:02] LABS: NEUTROPHIL 86 % (50-75)
[2017-03-25 09:03] LABS: GIANT PLATELETS PRESENT; LARGE PLATELETS PRESENT
[2017-03-25] MEDS: MethylPREDNISolone 40 mg Vial IVP SCH ×2 (10:37→21:05)
--- NOTE | 2017-03-25 13:57 | CP.PCM.PN ---
Subjective - Date & Time of Evaluation Date of Evaluation: 03/25/17 Time of Evaluation: 13:55 - Subjective Subjective: Feels better; NAD now BP controlled Dialysis stable 03/24 Labs acceptable Objective - Vital Signs/Intake and Output Vital Signs (last 24 hours): Temp Pulse Resp BP Pulse Ox 98.3 F 89 20 145/81 96 03/25/17 08:28 03/25/17 08:28 03/25/17 08:28 03/25/17 10:37 03/25/17 08:28 Intake and Output: 03/25/17 03/25/17 06:59 18:59 Intake Total 610 Balance 610 - Medications Medications: Current Medications Calcium Acetate (Phoslo) 667 mg PO TIDCC [facility] Last Admin: 03/25/17 12:12 Dose: 667 mg Carvedilol (Coreg) 25 mg PO BID [facility] Last Admin: 03/25/17 10:37 Dose: 25 mg Clonidine HCl (Catapres) 0.2 mg PO BID [facility] Last Admin: 03/25/17 10:37 Dose: 0.2 mg Famotidine (Pepcid) 20 mg PO DAILY [facility] Last Admin: 03/25/17 10:37 Dose: 20 mg Hydralazine HCl (Apresoline) 50 mg PO Q6H [facility] Last Admin: 03/25/17 06:47 Dose: 50 mg Lisinopril (Zestril) 5 mg PO DAILY [facility] Last Admin: 03/25/17 10:37 Dose: 5 mg Methylprednisolone (Solu-Medrol) 40 mg IVP Q12 [facility] Last Admin: 03/25/17 10:37 Dose: 40 mg Ondansetron HCl (Zofran Inj) 4 mg IVP Q6H PRN PRN Reason: Nausea/Vomiting Last Admin: 03/16/17 05:05 Dose: 4 mg - Labs Labs: 03/25/17 07:07 03/25/17 07:07 PT 13.3 SECONDS (9.7-12.2) H 03/17/17 06:24 INR 1.2 03/17/17 06:24 APTT 26 SECONDS (21-34) 03/17/17 06:24 - Constitutional Appears: No Acute Distress, Chronically Ill - Head Exam Head Exam: ATRAUMATIC, NORMAL INSPECTION - Eye Exam Eye Exam: EOMI, Normal appearance - Neck Exam Neck Exam: Normal Inspection. absent: Tenderness - Respiratory Exam Respiratory Exam: Clear to Ausculation Bilateral, NORMAL BREATHING PATTERN - Cardiovascular Exam Cardiovascular Exam: REGULAR RHYTHM, +S1 - GI/Abdominal Exam GI & Abdominal Exam: Soft. absent: Tenderness - Neurological Exam Neurological Exam: Awake, CN II-XII Intact - Skin Skin Exam: Dry, Warm Assessment and Plan (1) Hypertensive chronic kidney disease with stage 5 chronic kidney disease or end stage renal disease Status: Acute (2) End stage renal disease Status: Acute (3) Atypical hemolytic uremic syndrome Status: Acute (4) Malignant essential hypertension Status: Acute - Assessment and Plan (Free Text) Plan: Dialysis TTS Same BP meds Will need outpatient HD placement
--- NOTE | 2017-03-25 20:14 | CP.PCM.PN ---
Subjective - Date & Time of Evaluation Date of Evaluation: 03/25/17 Time of Evaluation: 15:30 - Subjective Subjective: Medical Attending Note Follow-up: Atypical TTP-HUS, Hypertensive urgency, Nephrotic Syndrome Patient seen, examined and case discussed with day-time resident, legal arbitrator, and heme-onc. Patient denies acute complaints at bedside. Patient denies bleeding episodes. Patient reports he would like to go home. Discussed with heme-onc, no transfusion at this time, unless he falls below 20, 000. Patient's next dose of Soliris is on 03/29/17. Patient's steroid is currently being tapered off. Patient is pending dialysis placement. Will need to follow-up with case management. Objective - Vital Signs/Intake and Output Vital Signs (last 24 hours): Temp Pulse Resp BP Pulse Ox 98.1 F 58 L 20 130/69 98 03/25/17 15:00 03/25/17 15:00 03/25/17 15:00 03/25/17 17:12 03/25/17 15:00 Intake and Output: 03/25/17 03/26/17 18:59 06:59 Intake Total 500 Balance 500 - Medications Medications: Current Medications Calcium Acetate (Phoslo) 667 mg PO TIDCC [facility] Last Admin: 03/25/17 17:12 Dose: 667 mg Carvedilol (Coreg) 25 mg PO BID [facility] Last Admin: 03/25/17 17:12 Dose: 25 mg Clonidine HCl (Catapres) 0.2 mg PO BID [facility] Last Admin: 03/25/17 17:12 Dose: 0.2 mg Famotidine (Pepcid) 20 mg PO DAILY [facility] Last Admin: 03/25/17 10:37 Dose: 20 mg Hydralazine HCl (Apresoline) 50 mg PO Q6H [facility] Last Admin: 03/25/17 18:22 Dose: 50 mg Lisinopril (Zestril) 5 mg PO DAILY [facility] Last Admin: 03/25/17 10:37 Dose: 5 mg Methylprednisolone (Solu-Medrol) 40 mg IVP Q12 [facility] Last Admin: 03/25/17 10:37 Dose: 40 mg Ondansetron HCl (Zofran Inj) 4 mg IVP Q6H PRN PRN Reason: Nausea/Vomiting Last Admin: 03/16/17 05:05 Dose: 4 mg - Labs Labs: 03/25/17 07:07 03/25/17 07:07 PT 13.3 SECONDS (9.7-12.2) H 03/17/17 06:24 INR 1.2 03/17/17 06:24 APTT 26 SECONDS (21-34) 03/17/17 06:24 - Constitutional Appears: Non-toxic, No Acute Distress - Head Exam Head Exam: NORMAL INSPECTION Additional comments: hearing aid (left ear) dialysis access (right side of chest) - Eye Exam Eye Exam: EOMI - ENT Exam ENT Exam: Mucous Membranes Moist - Respiratory Exam Respiratory Exam: Clear to Ausculation Bilateral, NORMAL BREATHING PATTERN. absent: Rales, Rhonchi, Wheezes - Cardiovascular Exam Cardiovascular Exam: REGULAR RHYTHM, +S1, +S2 - GI/Abdominal Exam GI & Abdominal Exam: Soft, Normal Bowel Sounds. absent: Distended, Guarding, Rigid, Tenderness, Rebound - Back Exam Back Exam: absent: CVA tenderness (L), CVA tenderness (R) - Neurological Exam Neurological Exam: Alert, Awake, Oriented x3 - Skin Skin Exam: Dry, Intact, Normal Color, Warm. absent: Erythema, Petechiae, Rash Assessment and Plan (1) Atypical hemolytic uremic syndrome Status: Acute (2) Hypertensive urgency Status: Acute (3) CKD (chronic kidney disease) stage 4, GFR 15-29 ml/min Status: Chronic (4) Nephrotic syndrome Status: Chronic (5) Renal hematoma Status: Chronic (6) Pleural effusion Status: Chronic (7) Prophylactic measure Status: Acute Attending/Attestation - Attestation I have personally seen and examined this patient.: Yes I have fully participated in the care of the patient.: Yes I have reviewed all pertinent clinical information, including history, physical exam and plan: Yes Notes (Text): Assessment/Plan (1) Atypical hemolytic uremic syndrome Assessment & Plan: * Heme-onc (Dr. 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 * Per last admission: Renal biopsy: thrombotic microangiopathy, vascular nephrosclerosis, globala and segmental glomerulosclerosis, intact linear glomeruar and distal tubular basement * During prior admission, platelets refractory to plasmapheresis, IV steroids, and transient improvement in platelets s/p multiple transfusion * Patient is currently on Soliris (Eculuazmab); approved by [employer] * During this admission: patient is on IV steroids, has received Iv desmopressin , and 4 platelets transfusion * Trend platelets: today is 23,000 * Monitor for bleeding episodes and skin changes * None reported per discussion with patient today, discussed with heme-onc, no transfusion at this time * Taper Solumedrol 40mg IV Q 12 hours Status: Acute (2) Hypertensive urgency Assessment & Plan: * Controlled * Coreg 25mg PO bid * Clonidine 0.2mg PO bid * Hydralazine 50mg PO [id number] * Lisinopril 5mg PO daily * Patient is currently dialysis--> schedule * 1st time dialysis * I had discussed with patient at bedside prior convo, patient upon discharge could not afford his blood pressure medications (he was discharged with medications provided to him at bedside) and has been off his anti-hypertensive medications * Nephrology (Dr. Villasenor) on board Status: Controlled (3) CKD (chronic kidney disease) stage 4, GFR 15-29 ml/min Assessment & Plan: Per last admission: Renal biopsy: thrombotic microangiopathy, vascular nephrosclerosis, globala and segmental glomerulosclerosis, intact linear glomeruar and distal tubular basement * Coreg 25mg PO bid * Clonidine 0.2mg PO bid * Hydralazine 50mg PO [id number] * Lisinopril 5mg PO daily * Permacath placed on 03/17/17 * Patient is currently dialysis--> schedule * 1st time dialysis * I discussed with patient at bedside in prior conversation, patient upon discharge could not afford his blood pressure medications (he was discharged with medications provided to him at bedside) and has been off his anti- hypertensive medications * Nephrology (Dr. Villasenor) on board * Given his low platelets, unable to have AV fistula placement at this time given bleeding risk Status: Chronic (4) Nephrotic syndrome Assessment & Plan: * Clonidine 0.2mg PO bid * Coreg 25mg PO bid * Hydralazine 50mg PO [id number] * Lisinopril 5mg PO daily * Patient is currently dialysis--> schedule * 1st time dialysis * Permacath placed on 01/15/17 * Discussed with patient at bedside in prior convo, patient upon discharge could not afford his blood pressure medications (he was discharged with medications provided to him at bedside) and has been off his anti-hypertensive medications * Nephrology (Dr. Villasenor) on board Status: Chronic (5) Renal hematoma Assessment & Plan: * History of renal hematoma last admission requiring IR embolization last admission secondary to hemorrhage s/p renal biopsy Status: Chronic (6) Pleural effusion Assessment & Plan: * Chest xray (03/17/17): mild pulmonary venous congestion, cardiomegaly, right side dialysis catheter * prior history of pleural effusion noted last admission * patient is started on dialysis this admission (//Tuesday) Status: Chronic (7) Leukocytosis * will continue to monitor WBC * Procalcitonin low * Blood cultures (03/23/17): no growth after 48 hours X2 * Urine culture pending (8) Prophylactic measure Assessment & Plan: * Contraindications to DVT ppx secondary to thrombocytopenia * Pepcid 20mg PO daily for GI ppx Status: Acute Disposition: * Will need to taper patient off IV steroids * Blood pressure control * Patient is a first time dialysis and likely require lifelong, will need dialysis placement. Case management to follow
--- NOTE | 2017-03-26 03:09 | CP.PCM.PN ---
<IgnacioGabriela - Last Filed: 03/26/17 03:24> Subjective - Date & Time of Evaluation Date of Evaluation: 03/26/17 Time of Evaluation: 03:24 - Subjective Subjective: PGY1 Medicine note for Dr. Quinones Patient seen and examined at bedside resting comfortably. Patient denied any chest pain, palpitations, SOB, abd pain, nausea, vomiting, bowel/bladder complaints, pain in his legs . Patient denied any bleeding/bruising. Objective - Vital Signs/Intake and Output Vital Signs (last 24 hours): Temp Pulse Resp BP Pulse Ox 97.8 F 63 20 127/72 96 03/25/17 23:12 03/26/17 01:15 03/25/17 23:12 03/26/17 01:15 03/25/17 23:12 Intake and Output: 03/25/17 03/26/17 18:59 06:59 Intake Total 500 Balance 500 - Medications Medications: Current Medications Calcium Acetate (Phoslo) 667 mg PO TIDCC [facility] Last Admin: 03/25/17 17:12 Dose: 667 mg Carvedilol (Coreg) 25 mg PO BID [facility] Last Admin: 03/25/17 17:12 Dose: 25 mg Clonidine HCl (Catapres) 0.2 mg PO BID [facility] Last Admin: 03/25/17 17:12 Dose: 0.2 mg Famotidine (Pepcid) 20 mg PO DAILY [facility] Last Admin: 03/25/17 10:37 Dose: 20 mg Hydralazine HCl (Apresoline) 50 mg PO Q6H [facility] Last Admin: 03/26/17 01:19 Dose: 50 mg Lisinopril (Zestril) 5 mg PO DAILY [facility] Last Admin: 03/25/17 10:37 Dose: 5 mg Methylprednisolone (Solu-Medrol) 40 mg IVP Q12 [facility] Last Admin: 03/25/17 21:05 Dose: 40 mg Ondansetron HCl (Zofran Inj) 4 mg IVP Q6H PRN PRN Reason: Nausea/Vomiting Last Admin: 03/16/17 05:05 Dose: 4 mg - Labs Labs: 03/25/17 07:07 03/25/17 07:07 PT 13.3 SECONDS (9.7-12.2) H 03/17/17 06:24 INR 1.2 03/17/17 06:24 APTT 26 SECONDS (21-34) 03/17/17 06:24 - Constitutional Appears: Non-toxic, No Acute Distress - Head Exam Head Exam: NORMAL INSPECTION - Eye Exam Eye Exam: Normal appearance - ENT Exam ENT Exam: Mucous Membranes Moist Additional comments: hearing aid L ear dialysis access R chest - Neck Exam Neck Exam: Normal Inspection - Respiratory Exam Respiratory Exam: Clear to Ausculation Bilateral, NORMAL BREATHING PATTERN. absent: Rales, Rhonchi, Wheezes, Respiratory Distress - Cardiovascular Exam Cardiovascular Exam: REGULAR RHYTHM, RRR, +S1, +S2 - GI/Abdominal Exam GI & Abdominal Exam: Soft, Normal Bowel Sounds. absent: Tenderness - Neurological Exam Neurological Exam: Alert, Awake, Oriented x3 - Psychiatric Exam Psychiatric exam: Normal Affect, Normal Mood - Skin Skin Exam: Dry, Intact, Normal Color, Warm Assessment and Plan - Assessment and Plan (Free Text) Plan: Atypical HUS * Heme-onc (Dr. 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 * Per last admission: Renal biopsy: thrombotic microangiopathy, vascular nephrosclerosis, globala and segmental glomerulosclerosis, intact linear glomeruar and distal tubular basement * During prior admission, platelets refractory to plasmapheresis, IV steroids, and transient improvement in platelets s/p multiple transfusion * Patient is currently on Soliris (Eculuazmab); approved by [employer] * During this admission: patient is on IV steroids, has received Iv desmopressin , and 4 platelets transfusion * Trend platelets: today is 31,000 * Monitor for bleeding episodes and skin changes * None reported per discussion with patient today * Taper Solumedrol 40mg IV Q 12 hours Hypertensive Urgency * Improved after HD * Coreg 25mg PO bid * Clonidine 0.2mg PO bid * Hydralazine 50mg PO [id number] * Lisinopril 5mg PO daily * Patient is currently dialysis-->/Tuesday schedule * Discussed with patient at bedside, patient upon discharge could not afford his blood pressure medications (he was discharged with medications provided to him at bedside) and has been off his anti-hypertensive medications * Nephrology (Dr. Villasenor) on board CKD stage 4 Per last admission: Renal biopsy: thrombotic microangiopathy, vascular nephrosclerosis, globala and segmental glomerulosclerosis, intact linear glomeruar and distal tubular basement * Coreg 25mg PO bid * Clonidine 0.2mg PO bid * Hydralazine 50mg PO [id number] * Lisinopril 5mg PO daily * Permacath placed on 03/17/17 * Patient is currently dialysis--> schedule * Discussed with patient at bedside, patient upon discharge could not afford his blood pressure medications (he was discharged with medications provided to him at bedside) and has been off his anti-hypertensive medications * Nephrology (Dr. Villasenor) on board * Given his low platelets, unable to have AV fistula placement at this time given bleeding risk Nephrotic Syndrome * Clonidine 0.2mg PO bid * Coreg 25mg PO bid * Hydralazine 50mg PO [id number] * started on Lisinopril 5mg PO daily * Patient is currently dialysis--> schedule * Permacath placed on 01/15/17 * Discussed with patient at bedside, patient upon discharge could not afford his blood pressure medications (he was discharged with medications provided to him at bedside) and has been off his anti-hypertensive medications * Nephrology (Dr. Villasenor) on board Renal Hematoma * History of renal hematoma last admission requiring IR embolization last admission secondary to hemorrhage s/p renal biopsy Pleural Effusion * Chest xray (03/17/17): mild pulmonary venous congestion, cardiomegaly, right side dialysis catheter * prior history of pleural effusion noted last admission * patient is started on dialysis this admission (//Tuesday) Leukocytosis * Likely steroid induced * Due to immunocompromised state, * blood,urine, and sputum cultures negative to date PPX: * Contraindications to DVT ppx secondary to thrombocytopenia * Pepcid 20mg PO daily for GI ppx Disposition: * Will need to taper patient off IV steroids * Blood pressure control * Patient is a 2nd time dialysis and likely require lifelong, will need dialysis placement Will discuss plan with Dr. Stacie Pierre PGY1 <Odette Quinones V - Last Filed: 03/26/17 09:44> Objective - Vital Signs/Intake and Output Vital Signs (last 24 hours): Temp Pulse Resp BP Pulse Ox 97.9 F 63 20 119/78 98 03/26/17 08:50 03/26/17 08:50 03/26/17 08:50 03/26/17 09:20 03/26/17 08:50 Intake and Output: 03/26/17 03/26/17 06:59 18:59 Intake Total 200 Balance 200 - Medications Medications: Current Medications Calcium Acetate (Phoslo) 667 mg PO TIDCC [facility] Last Admin: 03/26/17 08:04 Dose: 667 mg Carvedilol (Coreg) 25 mg PO BID [facility] Last Admin: 03/25/17 17:12 Dose: 25 mg Clonidine HCl (Catapres) 0.2 mg PO BID [facility] Last Admin: 03/25/17 17:12 Dose: 0.2 mg Famotidine (Pepcid) 20 mg PO DAILY [facility] Last Admin: 03/25/17 10:37 Dose: 20 mg Hydralazine HCl (Apresoline) 50 mg PO Q6H [facility] Last Admin: 03/26/17 07:42 Dose: 50 mg Lisinopril (Zestril) 5 mg PO DAILY [facility] Last Admin: 03/25/17 10:37 Dose: 5 mg Methylprednisolone (Solu-Medrol) 40 mg IVP Q12 [facility] Last Admin: 03/25/17 21:05 Dose: 40 mg Ondansetron HCl (Zofran Inj) 4 mg IVP Q6H PRN PRN Reason: Nausea/Vomiting Last Admin: 03/16/17 05:05 Dose: 4 mg - Labs Labs: 03/26/17 09:07 03/25/17 07:07 PT 13.3 SECONDS (9.7-12.2) H 03/17/17 06:24 INR 1.2 03/17/17 06:24 APTT 26 SECONDS (21-34) 03/17/17 06:24 Assessment and Plan (1) Atypical hemolytic uremic syndrome Status: Acute (2) Hypertensive urgency Status: Acute (3) CKD (chronic kidney disease) stage 4, GFR 15-29 ml/min Status: Chronic (4) Nephrotic syndrome Status: Chronic (5) Renal hematoma Status: Chronic (6) Pleural effusion Status: Chronic (7) Prophylactic measure Status: Acute Attending/Attestation - Attestation I have personally seen and examined this patient.: Yes I have fully participated in the care of the patient.: Yes I have reviewed all pertinent clinical information, including history, physical exam and plan: Yes Notes (Text): Patient seen, examined, and case discussed with day-time resident. Patient seen this morning in dialysis. Patient denies bleeding episodes over night. Patient denies complaints currently. Patient's platelets decreasing to 17,000. Will receive platelet transfusion today. Patient is pending dialysis placement. Patient is aware if he has any pain or notices any rash to contact the nurse or myself. ordered for ESR, CRP, and blood cultures during dialysis, patient is on Iv steroid tapering. (1) Atypical hemolytic uremic syndrome Assessment & Plan: * Heme-onc (Dr. 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 * Per last admission: Renal biopsy: thrombotic microangiopathy, vascular nephrosclerosis, globala and segmental glomerulosclerosis, intact linear glomeruar and distal tubular basement * During prior admission, platelets refractory to plasmapheresis, IV steroids, and transient improvement in platelets s/p multiple transfusion * Patient is currently on Soliris (Eculuazmab); approved by [employer] * During this admission: patient is on IV steroids, has received Iv desmopressin , and 4 platelets transfusion * Trend platelets: today is 17,000 * Monitor for bleeding episodes and skin changes * None reported per discussion with patient today, discussed with caro-onc, no transfusion at this time * Taper Solumedrol 40mg IV Q 12 hours * Will receive platelet transfusion today Status: Acute (2) Hypertensive urgency Assessment & Plan: * Controlled * Coreg 25mg PO bid * Clonidine 0.2mg PO bid * Hydralazine 50mg PO [id number] * Lisinopril 5mg PO daily * Patient is currently dialysis-->/Tuesday schedule * 1st time dialysis * I had discussed with patient at bedside prior convo, patient upon discharge could not afford his blood pressure medications (he was discharged with medications provided to him at bedside) and has been off his anti-hypertensive medications * Nephrology (Dr. Villasenor) on board Status: Controlled (3) CKD (chronic kidney disease) stage 4, GFR 15-29 ml/min Assessment & Plan: Per last admission: Renal biopsy: thrombotic microangiopathy, vascular nephrosclerosis, globala and segmental glomerulosclerosis, intact linear glomeruar and distal tubular basement * Coreg 25mg PO bid * Clonidine 0.2mg PO bid * Hydralazine 50mg PO [id number] * Lisinopril 5mg PO daily * Permacath placed on 03/17/17 * Patient is currently dialysis--> schedule * 1st time dialysis * I discussed with patient at bedside in prior conversation, patient upon discharge could not afford his blood pressure medications (he was discharged with medications provided to him at bedside) and has been off his anti- hypertensive medications * Nephrology (Dr. Villasenor) on board * Given his low platelets, unable to have AV fistula placement at this time given bleeding risk Status: Chronic (4) Nephrotic syndrome Assessment & Plan: * Clonidine 0.2mg PO bid * Coreg 25mg PO bid * Hydralazine 50mg PO [id number] * Lisinopril 5mg PO daily * Patient is currently dialysis--> schedule * 1st time dialysis * Permacath placed on 01/15/17 * Discussed with patient at bedside in prior convo, patient upon discharge could not afford his blood pressure medications (he was discharged with medications provided to him at bedside) and has been off his anti-hypertensive medications * Nephrology (Dr. Villasenor) on board Status: Chronic (5) Renal hematoma Assessment & Plan: * History of renal hematoma last admission requiring IR embolization last admission secondary to hemorrhage s/p renal biopsy Status: Chronic (6) Pleural effusion Assessment & Plan: * Chest xray (03/17/17): mild pulmonary venous congestion, cardiomegaly, right side dialysis catheter * prior history of pleural effusion noted last admission * patient is started on dialysis this admission (//Tuesday) Status: Chronic (7) Leukocytosis * will continue to monitor WBC * Procalcitonin low * Blood cultures (03/23/17): no growth after 48 hours X2 * Urine culture pending * Ordered for ESR, CRP, and repeat blood cultures during dialysis today (8) Prophylactic measure Assessment & Plan: * Contraindications to DVT ppx secondary to thrombocytopenia * Pepcid 20mg PO daily for GI ppx * Platelet transfusion below 20K Status: Acute Disposition: * Today, requires platelet transfusion <20,000 * Will need to taper patient off IV steroids * Blood pressure control * Patient is a first time dialysis and likely require lifelong, will need dialysis placement. Case management to follow
[2017-03-26 09:19] LABS: BASO % 0.2 % (0.0-2.0); EOS % 0.1 % (0.0-4.0); HEMATOCRIT 32.4 % (35.0-51.0); LYMPH # 0.9 K/uL (1.0-4.3); LYMPH % 4.5 % (20.0-40.0); MEAN CELL VOLUME 91.1 fL (80.0-94.0); MEAN CORPUSCULAR HEMOGLOBIN 29.5 pg (27.0-31.0); MEAN CORPUSCULAR HGB CONC 32.3 g/dL (33.0-37.0); MEAN PLATELET VOLUME 9.9 fL (7.2-11.7); MONO # 1.3 K/uL (0.0-0.8); MONO % 6.2 % (0.0-10.0); NRBC % 0.3 % (0.0-2.0); RED CELL DISTRIBUTION WIDTH 14.8 % (11.5-14.5); WHITE BLOOD COUNT 20.3 K/uL (4.8-10.8)
[2017-03-26 09:30] LABS: PLATELET COUNT 17 K/uL (130-400)
[2017-03-26 09:39] LABS: POTASSIUM 3.9 mmol/L (3.6-5.2)
[2017-03-26 09:41] LABS: ALB/GLOB RATIO 1.2 (1.0-2.1); BILIRUBIN,TOTAL 0.6 mg/dL (0.2-1.3)
[2017-03-26 09:42] LABS: CALCIUM 7.8 mg/dl (8.6-10.4); MAGNESIUM 2.5 mg/dL (1.6-2.3)
[2017-03-26] MEDS: MethylPREDNISolone 40 mg Vial IVP SCH ×2 (10:00→21:48)
[2017-03-26 12:08] LABS: TOTAL CELLS COUNTED 100
[2017-03-26 12:09] LABS: NEUTROPHIL 89 % (50-75)
[2017-03-26 12:11] LABS: GIANT PLATELETS PRESENT; LARGE PLATELETS PRESENT
[2017-03-27 09:33] LABS: BASO # 0.1 K/uL (0.0-0.2); BASO % 0.3 % (0.0-2.0); HEMATOCRIT 32.5 % (35.0-51.0); LYMPH # 1.3 K/uL (1.0-4.3); LYMPH % 5.8 % (20.0-40.0); MEAN CELL VOLUME 91.9 fL (80.0-94.0); MEAN CORPUSCULAR HEMOGLOBIN 29.5 pg (27.0-31.0); MEAN CORPUSCULAR HGB CONC 32.1 g/dL (33.0-37.0); MEAN PLATELET VOLUME 9.5 fL (7.2-11.7); MONO # 1.6 K/uL (0.0-0.8); MONO % 7.3 % (0.0-10.0); NRBC % 0.3 % (0.0-2.0); RED CELL DISTRIBUTION WIDTH 14.9 % (11.5-14.5)
[2017-03-27 09:43] LABS: POTASSIUM 4.3 mmol/L (3.6-5.2)
[2017-03-27] MEDS: MethylPREDNISolone 40 mg Vial IVP SCH (09:43)
[2017-03-27 09:45] LABS: ALB/GLOB RATIO 1.2 (1.0-2.1); BILIRUBIN,TOTAL 0.6 mg/dL (0.2-1.3)
[2017-03-27 09:46] LABS: CALCIUM 7.8 mg/dl (8.6-10.4); MAGNESIUM 2.4 mg/dL (1.6-2.3); PHOSPHOROUS 3.5 mg/dL (2.5-4.5)
[2017-03-27 09:54] LABS: PLATELET COUNT 20 K/uL (130-400)
[2017-03-27 11:36] LABS: NEUTROPHIL 88 % (50-75); TOTAL CELLS COUNTED 100
[2017-03-27 11:37] LABS: GIANT PLATELETS PRESENT; LARGE PLATELETS PRESENT
[2017-03-27 11:38] LABS: ACANTHOCYTES SLIGHT
--- NOTE | 2017-03-27 12:55 | CP.PCM.PN ---
Subjective - Date & Time of Evaluation Date of Evaluation: 03/27/17 Time of Evaluation: 11:10 - Subjective Subjective: Medical Attending Note Follow-up: Atypical TTP-HUS, Hypertensive urgency, Nephrotic Syndrome Patient seen and examined. Patient denies acute complaints at bedside. Patient denies bleeding episodes. Patient reports he would like to go home. Patient received 1 bag of platelets yesterday. Patient's platelets have mildly improved to 20,000. Ordered for 1 bag of platelets for today. Patient is pending placement for dialysis. Objective - Vital Signs/Intake and Output Vital Signs (last 24 hours): Temp Pulse Resp BP Pulse Ox 98.2 F 57 L 20 122/75 97 03/27/17 08:00 03/27/17 08:00 03/27/17 08:00 03/27/17 09:42 03/27/17 08:00 Intake and Output: 03/27/17 03/27/17 06:59 18:59 Intake Total 340 Balance 340 - Medications Medications: Current Medications Calcium Acetate (Phoslo) 667 mg PO TIDCC [facility] Last Admin: 03/27/17 11:30 Dose: 667 mg Carvedilol (Coreg) 25 mg PO BID [facility] Last Admin: 03/27/17 09:42 Dose: 25 mg Clonidine HCl (Catapres) 0.2 mg PO BID [facility] Last Admin: 03/27/17 09:42 Dose: 0.2 mg Famotidine (Pepcid) 20 mg PO DAILY [facility] Last Admin: 03/27/17 09:42 Dose: 20 mg Hydralazine HCl (Apresoline) 50 mg PO Q6H [facility] Last Admin: 03/27/17 06:13 Dose: 50 mg Lisinopril (Zestril) 5 mg PO DAILY [facility] Last Admin: 03/27/17 09:42 Dose: 5 mg Methylprednisolone (Solu-Medrol) 40 mg IVP Q12 [facility] Last Admin: 03/27/17 09:43 Dose: 40 mg Ondansetron HCl (Zofran Inj) 4 mg IVP Q6H PRN PRN Reason: Nausea/Vomiting Last Admin: 03/16/17 05:05 Dose: 4 mg - Labs Labs: 03/27/17 09:21 03/27/17 09:21 PT 13.3 SECONDS (9.7-12.2) H 03/17/17 06:24 INR 1.2 03/17/17 06:24 APTT 26 SECONDS (21-34) 03/17/17 06:24 - Constitutional Appears: Non-toxic, No Acute Distress - Head Exam Head Exam: NORMAL INSPECTION - Eye Exam Eye Exam: EOMI - ENT Exam ENT Exam: Mucous Membranes Dry - Respiratory Exam Respiratory Exam: Clear to Ausculation Bilateral - Cardiovascular Exam Cardiovascular Exam: REGULAR RHYTHM, +S1, +S2 - GI/Abdominal Exam GI & Abdominal Exam: Soft, Normal Bowel Sounds. absent: Distended, Firm, Guarding, Tenderness - Extremities Exam Extremities Exam: Normal Capillary Refill. absent: Pedal Edema - Back Exam Back Exam: absent: CVA tenderness (L), CVA tenderness (R) - Neurological Exam Neurological Exam: Alert, Awake - Psychiatric Exam Psychiatric exam: Normal Affect, Normal Mood - Skin Skin Exam: Dry, Normal Color, Warm. absent: Mottled, Petechiae Assessment and Plan (1) Atypical hemolytic uremic syndrome Status: Acute (2) Hypertensive urgency Status: Acute (3) CKD (chronic kidney disease) stage 4, GFR 15-29 ml/min Status: Chronic (4) Nephrotic syndrome Status: Chronic (5) Renal hematoma Status: Chronic (6) Pleural effusion Status: Chronic (7) Prophylactic measure Status: Acute - Assessment and Plan (Free Text) Assessment: Patient seen, examined, and case discussed with day-time resident. Patient seen this morning in dialysis. Patient denies bleeding episodes over night. Patient denies complaints currently. Patient's platelets improved to 20,000. Will receive platelet transfusion today. Patient is pending dialysis placement. Patient is aware if he has any pain or notices any rash to contact the nurse or myself. Taper IV steroids to PO steroid (1) Atypical hemolytic uremic syndrome Assessment & Plan: * Heme-onc (Dr. 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 * Per last admission: Renal biopsy: thrombotic microangiopathy, vascular nephrosclerosis, globala and segmental glomerulosclerosis, intact linear glomeruar and distal tubular basement * During prior admission, platelets refractory to plasmapheresis, IV steroids, and transient improvement in platelets s/p multiple transfusion * Patient is currently on Soliris (Eculuazmab); approved by [employer] * During this admission: patient is on IV steroids, has received Iv desmopressin , and 5 platelets transfusion * Trend platelets: today is 20,000 * Monitor for bleeding episodes and skin changes * None reported per discussion with patient today, discussed with heme-onc, no transfusion at this time * Prednisone 40mg PO daily for 5 days * Will receive another platelet transfusion today Status: Acute (2) Hypertensive urgency Assessment & Plan: * Controlled * Coreg 25mg PO bid * Clonidine 0.2mg PO bid * Hydralazine 50mg PO [id number] * Lisinopril 5mg PO daily * Patient is currently dialysis--> schedule * 1st time dialysis * I had discussed with patient at bedside prior convo, patient upon discharge could not afford his blood pressure medications (he was discharged with medications provided to him at bedside) and has been off his anti-hypertensive medications * Nephrology (Dr. Villasenor) on board Status: Controlled (3) CKD (chronic kidney disease) stage 4, GFR 15-29 ml/min Assessment & Plan: Per last admission: Renal biopsy: thrombotic microangiopathy, vascular nephrosclerosis, globala and segmental glomerulosclerosis, intact linear glomeruar and distal tubular basement * Coreg 25mg PO bid * Clonidine 0.2mg PO bid * Hydralazine 50mg PO [id number] * Lisinopril 5mg PO daily * Permacath placed on 03/17/17 * Patient is currently dialysis--> schedule * 1st time dialysis * I discussed with patient at bedside in prior conversation, patient upon discharge could not afford his blood pressure medications (he was discharged with medications provided to him at bedside) and has been off his anti- hypertensive medications * Nephrology (Dr. Villasenor) on board * Given his low platelets, unable to have AV fistula placement at this time given bleeding risk Status: Chronic (4) Nephrotic syndrome Assessment & Plan: * Clonidine 0.2mg PO bid * Coreg 25mg PO bid * Hydralazine 50mg PO [id number] * Lisinopril 5mg PO daily * Patient is currently dialysis--> schedule * 1st time dialysis * Permacath placed on 01/15/17 * Discussed with patient at bedside in prior convo, patient upon discharge could not afford his blood pressure medications (he was discharged with medications provided to him at bedside) and has been off his anti-hypertensive medications * Nephrology (Dr. Villasenor) on board Status: Chronic (5) Renal hematoma Assessment & Plan: * History of renal hematoma last admission requiring IR embolization last admission secondary to hemorrhage s/p renal biopsy Status: Chronic (6) Pleural effusion Assessment & Plan: * Chest xray (03/17/17): mild pulmonary venous congestion, cardiomegaly, right side dialysis catheter * prior history of pleural effusion noted last admission * patient is started on dialysis this admission (//Tuesday) Status: Chronic (7) Leukocytosis * will continue to monitor WBC * Procalcitonin low * Blood cultures (03/23/17): no growth after 3 days X2 * Blood cultures (03/26/17): no growth after 24hours X2 * Urine culture pending * low ESR, Low CRP * Patient is being tapered off steroids * Prednisone 40mg PO daily for 5 days. (8) Prophylactic measure Assessment & Plan: * Contraindications to DVT ppx secondary to thrombocytopenia * Pepcid 20mg PO daily for GI ppx * Platelet transfusion below 20K Status: Acute Disposition: * Today, requires platelet transfusion at 20,000, given another uniti. * Will need to taper patient off IV steroids * Blood pressure control * Patient is a first time dialysis and likely require lifelong, will need dialysis placement. Case management to follow
--- NOTE | 2017-03-27 14:17 | CP.PCM.PN ---
Subjective - Date & Time of Evaluation Date of Evaluation: 03/26/17 Time of Evaluation: 16:30 - Subjective Subjective: No complaints. Objective - Vital Signs/Intake and Output Vital Signs (last 24 hours): Temp Pulse Resp BP Pulse Ox 98.2 F 57 L 20 122/75 97 03/27/17 08:00 03/27/17 08:00 03/27/17 08:00 03/27/17 09:42 03/27/17 08:00 Intake and Output: 03/27/17 03/27/17 06:59 18:59 Intake Total 340 Balance 340 - Medications Medications: Current Medications Calcium Acetate (Phoslo) 667 mg PO TIDCC [facility] Last Admin: 03/27/17 11:30 Dose: 667 mg Carvedilol (Coreg) 25 mg PO BID [facility] Last Admin: 03/27/17 09:42 Dose: 25 mg Clonidine HCl (Catapres) 0.2 mg PO BID [facility] Last Admin: 03/27/17 09:42 Dose: 0.2 mg Famotidine (Pepcid) 20 mg PO DAILY [facility] Last Admin: 03/27/17 09:42 Dose: 20 mg Hydralazine HCl (Apresoline) 50 mg PO Q6H [facility] Last Admin: 03/27/17 13:29 Dose: 50 mg Lisinopril (Zestril) 5 mg PO DAILY [facility] Last Admin: 03/27/17 09:42 Dose: 5 mg Ondansetron HCl (Zofran Inj) 4 mg IVP Q6H PRN PRN Reason: Nausea/Vomiting Last Admin: 03/16/17 05:05 Dose: 4 mg Prednisone (Prednisone Tab) 40 mg PO DAILY [facility] Stop: 03/31/17 10:00 - Labs Labs: 03/27/17 09:21 03/27/17 09:21 PT 13.3 SECONDS (9.7-12.2) H 03/17/17 06:24 INR 1.2 03/17/17 06:24 APTT 26 SECONDS (21-34) 03/17/17 06:24 - Head Exam Head Exam: ATRAUMATIC - Eye Exam Eye Exam: Normal appearance - ENT Exam ENT Exam: Mucous Membranes Dry - Respiratory Exam Respiratory Exam: NORMAL BREATHING PATTERN - Cardiovascular Exam Cardiovascular Exam: +S1, +S2 - GI/Abdominal Exam GI & Abdominal Exam: Normal Bowel Sounds - Extremities Exam Extremities Exam: Normal Inspection Assessment and Plan (1) Hemolytic uremic syndrome Assessment & Plan: on eculizumab plt tranfusion today Status: Acute
[2017-03-28 08:39] LABS: BASO # 0.1 K/uL (0.0-0.2); BASO % 0.2 % (0.0-2.0); HEMATOCRIT 31.6 % (35.0-51.0); LYMPH # 3.8 K/uL (1.0-4.3); LYMPH % 13.7 % (20.0-40.0); MEAN CELL VOLUME 91.4 fL (80.0-94.0); MEAN CORPUSCULAR HEMOGLOBIN 29.1 pg (27.0-31.0); MEAN CORPUSCULAR HGB CONC 31.9 g/dL (33.0-37.0); MEAN PLATELET VOLUME 9.4 fL (7.2-11.7); MONO # 3.1 K/uL (0.0-0.8); MONO % 11.2 % (0.0-10.0); NRBC % 0.1 % (0.0-2.0); RED CELL DISTRIBUTION WIDTH 15.2 % (11.5-14.5); WHITE BLOOD COUNT 27.6 K/uL (4.8-10.8)
[2017-03-28 08:40] LABS: POTASSIUM 4.6 mmol/L (3.6-5.2)
[2017-03-28 08:42] LABS: BILIRUBIN,TOTAL 0.5 mg/dL (0.2-1.3)
[2017-03-28 08:43] LABS: CALCIUM 8.1 mg/dl (8.6-10.4)
--- NOTE | 2017-03-28 11:45 | CP.PCM.PN ---
Subjective - Date & Time of Evaluation Date of Evaluation: 03/28/17 Time of Evaluation: 11:43 - Subjective Subjective: Alert; no new complaints Stable HD 03/26 BP controlled Objective - Vital Signs/Intake and Output Vital Signs (last 24 hours): Temp Pulse Resp BP Pulse Ox 97.6 F 65 20 134/72 97 03/28/17 07:33 03/28/17 07:33 03/28/17 07:33 03/28/17 09:29 03/28/17 07:33 Intake and Output: 03/28/17 03/28/17 06:59 18:59 Intake Total 1270 Balance 1270 - Medications Medications: Current Medications Calcium Acetate (Phoslo) 667 mg PO TIDCC [facility] Last Admin: 03/28/17 11:37 Dose: 667 mg Carvedilol (Coreg) 25 mg PO BID [facility] Last Admin: 03/28/17 09:29 Dose: 25 mg Clonidine HCl (Catapres) 0.2 mg PO BID [facility] Last Admin: 03/28/17 09:29 Dose: 0.2 mg Famotidine (Pepcid) 20 mg PO DAILY [facility] Last Admin: 03/28/17 09:29 Dose: 20 mg Hydralazine HCl (Apresoline) 50 mg PO Q6H [facility] Last Admin: 03/28/17 06:12 Dose: 50 mg Lisinopril (Zestril) 5 mg PO DAILY [facility] Last Admin: 03/28/17 09:29 Dose: 5 mg Ondansetron HCl (Zofran Inj) 4 mg IVP Q6H PRN PRN Reason: Nausea/Vomiting Last Admin: 03/16/17 05:05 Dose: 4 mg Prednisone (Prednisone Tab) 40 mg PO DAILY [facility] Stop: 03/31/17 10:00 Last Admin: 03/28/17 09:29 Dose: 40 mg - Labs Labs: 03/28/17 08:22 03/28/17 08:22 PT 13.3 SECONDS (9.7-12.2) H 03/17/17 06:24 INR 1.2 03/17/17 06:24 APTT 26 SECONDS (21-34) 03/17/17 06:24 - Constitutional Appears: No Acute Distress, Chronically Ill - Head Exam Head Exam: ATRAUMATIC, NORMAL INSPECTION - Eye Exam Eye Exam: EOMI, Normal appearance - Neck Exam Neck Exam: Normal Inspection. absent: Tenderness - Respiratory Exam Respiratory Exam: Clear to Ausculation Bilateral, NORMAL BREATHING PATTERN - Cardiovascular Exam Cardiovascular Exam: REGULAR RHYTHM, +S1 - GI/Abdominal Exam GI & Abdominal Exam: Soft. absent: Tenderness - Extremities Exam Extremities Exam: Normal Inspection. absent: Tenderness - Neurological Exam Neurological Exam: Alert, CN II-XII Intact - Skin Skin Exam: Dry, Warm Assessment and Plan (1) Hypertensive chronic kidney disease with stage 5 chronic kidney disease or end stage renal disease Status: Acute (2) End stage renal disease Status: Acute (3) Atypical hemolytic uremic syndrome Status: Acute (4) Malignant essential hypertension Status: Acute - Assessment and Plan (Free Text) Plan: Dialysis TTS Would taper steroids Needs outpt dialysis placement
--- NOTE | 2017-03-28 15:24 | CP.PCM.PN ---
<Jose Elias Dennison - Last Filed: 03/28/17 15:20> Subjective - Date & Time of Evaluation Date of Evaluation: 03/28/17 Time of Evaluation: 07:00 - Subjective Subjective: Dr. Dennison PGY 1 Hospitalist note Patient seen and evaluated at bedside. He states he is doing ok but wants to go home. He denies any active bleeding, nausea, vomiting, weakness, fever, or chills. He states he would like to go home today if possible but will have dialysis tomorrow. No adverse events over night per nursing. Objective - Vital Signs/Intake and Output Vital Signs (last 24 hours): Temp Pulse Resp BP Pulse Ox 97.6 F 65 20 134/72 97 03/28/17 07:33 03/28/17 07:33 03/28/17 07:33 03/28/17 09:29 03/28/17 07:33 Intake and Output: 03/28/17 03/28/17 06:59 18:59 Intake Total 1270 450 Balance 1270 450 - Medications Medications: Current Medications Calcium Acetate (Phoslo) 667 mg PO TIDCC [facility] Last Admin: 03/28/17 11:37 Dose: 667 mg Carvedilol (Coreg) 25 mg PO BID [facility] Last Admin: 03/28/17 09:29 Dose: 25 mg Clonidine HCl (Catapres) 0.2 mg PO BID [facility] Last Admin: 03/28/17 09:29 Dose: 0.2 mg Famotidine (Pepcid) 20 mg PO DAILY [facility] Last Admin: 03/28/17 09:29 Dose: 20 mg Hydralazine HCl (Apresoline) 50 mg PO Q6H [facility] Last Admin: 03/28/17 12:45 Dose: 50 mg Lisinopril (Zestril) 5 mg PO DAILY [facility] Last Admin: 03/28/17 09:29 Dose: 5 mg Ondansetron HCl (Zofran Inj) 4 mg IVP Q6H PRN PRN Reason: Nausea/Vomiting Last Admin: 03/16/17 05:05 Dose: 4 mg Prednisone (Prednisone Tab) 40 mg PO DAILY [facility] Stop: 03/31/17 10:00 Last Admin: 03/28/17 09:29 Dose: 40 mg - Labs Labs: 03/28/17 08:22 03/28/17 08:22 PT 13.3 SECONDS (9.7-12.2) H 03/17/17 06:24 INR 1.2 03/17/17 06:24 APTT 26 SECONDS (21-34) 03/17/17 06:24 - Constitutional Appears: Non-toxic, No Acute Distress - Head Exam Head Exam: ATRAUMATIC, NORMOCEPHALIC - Eye Exam Eye Exam: EOMI, Normal appearance, PERRL Pupil Exam: NORMAL ACCOMODATION, PERRL - ENT Exam ENT Exam: Mucous Membranes Moist, Normal Oropharynx - Neck Exam Neck Exam: Normal Inspection. absent: Tenderness, Thyromegaly - Respiratory Exam Respiratory Exam: Clear to Ausculation Bilateral, NORMAL BREATHING PATTERN. absent: Rales, Rhonchi, Wheezes - Cardiovascular Exam Cardiovascular Exam: REGULAR RHYTHM, +S1, +S2. absent: Gallop, Rubs, Murmur - GI/Abdominal Exam GI & Abdominal Exam: Soft, Normal Bowel Sounds. absent: Tenderness - Extremities Exam Extremities Exam: Normal Capillary Refill, Normal Inspection. absent: Pedal Edema, Tenderness - Back Exam Back Exam: NORMAL INSPECTION. absent: rash noted, tenderness - Neurological Exam Neurological Exam: Alert, Awake, CN II-XII Intact, Oriented x3 - Psychiatric Exam Psychiatric exam: Normal Affect, Normal Mood - Skin Skin Exam: Dry, Intact, Normal Color, Warm Assessment and Plan - Assessment and Plan (Free Text) Plan: (1) Atypical hemolytic uremic syndrome Assessment & Plan: * Heme-onc (Dr. 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 * Per last admission: Renal biopsy: thrombotic microangiopathy, vascular nephrosclerosis, globala and segmental glomerulosclerosis, intact linear glomeruar and distal tubular basement * During prior admission, platelets refractory to plasmapheresis, IV steroids, and transient improvement in platelets s/p multiple transfusion * Patient is currently on Soliris (Eculuazmab); approved by [employer] * During this admission: patient was give IV steroids, has received Iv desmopressin, and 5 platelets transfusion * Trend platelets: today is 20,000 * Monitor for bleeding episodes and skin changes * None reported per discussion with patient today, discussed with heme-onc, no transfusion at this time * Prednisone 40mg PO daily for 5 days- till * Will receive another platelet transfusion today Status: Acute (2) Hypertensive urgency Assessment & Plan: * Controlled * Coreg 25mg PO bid * Clonidine 0.2mg PO bid * Hydralazine 50mg PO [id number] * Lisinopril 5mg PO daily * Patient is currently dialysis--> schedule * 1st time dialysis * I had discussed with patient at bedside prior convo, patient upon discharge could not afford his blood pressure medications (he was discharged with medications provided to him at bedside) and has been off his anti-hypertensive medications * Nephrology (Dr. Villasenor) on board Status: Controlled (3) CKD (chronic kidney disease) stage 4, GFR 15-29 ml/min Assessment & Plan: Per last admission: Renal biopsy: thrombotic microangiopathy, vascular nephrosclerosis, globala and segmental glomerulosclerosis, intact linear glomeruar and distal tubular basement * Coreg 25mg PO bid * Clonidine 0.2mg PO bid * Hydralazine 50mg PO [id number] * Lisinopril 5mg PO daily * Permacath placed on 03/17/17 * Patient is currently dialysis--> schedule * 1st time dialysis * I discussed with patient at bedside in prior conversation, patient upon discharge could not afford his blood pressure medications (he was discharged with medications provided to him at bedside) and has been off his anti- hypertensive medications * Nephrology (Dr. Villasenor) on board * Given his low platelets, unable to have AV fistula placement at this time given bleeding risk Status: Chronic (4) Nephrotic syndrome Assessment & Plan: * Clonidine 0.2mg PO bid * Coreg 25mg PO bid * Hydralazine 50mg PO [id number] * Lisinopril 5mg PO daily * Patient is currently dialysis--> schedule * 1st time dialysis * Permacath placed on 01/15/17 * Discussed with patient at bedside in prior convo, patient upon discharge could not afford his blood pressure medications (he was discharged with medications provided to him at bedside) and has been off his anti-hypertensive medications * Nephrology (Dr. Villasenor) on board Status: Chronic (5) Renal hematoma Assessment & Plan: * History of renal hematoma last admission requiring IR embolization last admission secondary to hemorrhage s/p renal biopsy Status: Chronic (6) Pleural effusion Assessment & Plan: * Chest xray (03/17/17): mild pulmonary venous congestion, cardiomegaly, right side dialysis catheter * prior history of pleural effusion noted last admission * patient is started on dialysis this admission (//Tuesday) Status: Chronic (7) Leukocytosis * will continue to monitor WBC * Procalcitonin low * Blood cultures (03/23/17): no growth after 3 days X2 * Blood cultures (03/26/17): no growth after 24hours X2 * Urine culture pending * low ESR, Low CRP * Patient is being tapered off steroids * Prednisone 40mg PO daily for 5 days. (8) Prophylactic measure Assessment & Plan: * Contraindications to DVT ppx secondary to thrombocytopenia * Pepcid 20mg PO daily for GI ppx * Platelet transfusion below 20K Status: Acute Disposition: * Will need to taper patient off IV steroids * Blood pressure control * Patient is a first time dialysis and likely require lifelong, will need dialysis placement. Case management to follow. Assessment and plan discussed with attending physician. <Romeo Snyder - Last Filed: 03/28/17 17:16> Objective - Vital Signs/Intake and Output Vital Signs (last 24 hours): Temp Pulse Resp BP Pulse Ox 98.4 F 54 L 20 142/74 98 03/28/17 15:00 03/28/17 15:00 03/28/17 15:00 03/28/17 15:00 03/28/17 15:00 Intake and Output: 03/28/17 03/28/17 06:59 18:59 Intake Total 1270 450 Balance 1270 450 - Medications Medications: Current Medications Calcium Acetate (Phoslo) 667 mg PO TIDCC [facility] Last Admin: 03/28/17 11:37 Dose: 667 mg Carvedilol (Coreg) 25 mg PO BID [facility] Last Admin: 03/28/17 09:29 Dose: 25 mg Clonidine HCl (Catapres) 0.2 mg PO BID [facility] Last Admin: 03/28/17 09:29 Dose: 0.2 mg Famotidine (Pepcid) 20 mg PO DAILY [facility] Last Admin: 03/28/17 09:29 Dose: 20 mg Hydralazine HCl (Apresoline) 50 mg PO Q6H [facility] Last Admin: 03/28/17 12:45 Dose: 50 mg Lisinopril (Zestril) 5 mg PO DAILY [facility] Last Admin: 03/28/17 09:29 Dose: 5 mg Ondansetron HCl (Zofran Inj) 4 mg IVP Q6H PRN PRN Reason: Nausea/Vomiting Last Admin: 03/16/17 05:05 Dose: 4 mg Prednisone (Prednisone Tab) 40 mg PO DAILY [facility] Stop: 03/31/17 10:00 Last Admin: 03/28/17 09:29 Dose: 40 mg - Labs Labs: 03/28/17 08:22 03/28/17 08:22 PT 13.3 SECONDS (9.7-12.2) H 03/17/17 06:24 INR 1.2 03/17/17 06:24 APTT 26 SECONDS (21-34) 03/17/17 06:24 Attending/Attestation - Attestation I have personally seen and examined this patient.: Yes I have fully participated in the care of the patient.: Yes I have reviewed all pertinent clinical information, including history, physical exam and plan: Yes Notes (Text): 03/28/17 17:07 Medical Attending: Patient was seen and examined by me. Agree with the above note by the resident. I spoke with pharmacy today and from what I understand the Ecl[employer] now requires that the patient be considered outpatient before it will be sent by the company, currently the patient does not yet have HD placement. We spoke with the patient with a epic ambulatory analyst and explained to him the importance of him continue to receive this experiential medication. So the plan is to discharge the patient tomorrow after HD so that he can come back on Tuesday at the infusion center for this medication. I emphasized to the patient that this is NOT ideal and that I wished we could arrange for him to have outpatient HD at a center. He understands that he does need HD and that at some point he's probably going to have to come back to the hospital to get HD again via the permacath that he has. thank you Romeo Snyder
[2017-03-29 07:37] VITALS: O2SAT 98
[2017-03-29 07:59] LABS: BASO % 0.2 % (0.0-2.0); HEMATOCRIT 30.8 % (35.0-51.0); LYMPH # 2.3 K/uL (1.0-4.3); LYMPH % 10.9 % (20.0-40.0); MEAN CELL VOLUME 91.4 fL (80.0-94.0); MEAN CORPUSCULAR HEMOGLOBIN 29.6 pg (27.0-31.0); MEAN CORPUSCULAR HGB CONC 32.4 g/dL (33.0-37.0); MONO # 2.8 K/uL (0.0-0.8); MONO % 13.1 % (0.0-10.0); NRBC % 0.1 % (0.0-2.0); RED CELL DISTRIBUTION WIDTH 15.1 % (11.5-14.5); WHITE BLOOD COUNT 21.2 K/uL (4.8-10.8)
[2017-03-29 08:11] LABS: POTASSIUM 4.8 mmol/L (3.6-5.2)
[2017-03-29 08:13] LABS: BILIRUBIN,TOTAL 0.6 mg/dL (0.2-1.3)
[2017-03-29 08:14] LABS: ALB/GLOB RATIO 1.1 (1.0-2.1); TOTAL PROTEIN 4.9 g/dL (6.3-8.3)
[2017-03-29 08:28] LABS: MEAN PLATELET VOLUME 8.7 fL (7.2-11.7)
--- NOTE | 2017-03-29 10:50 | CP.PCM.PN ---
Subjective - Date & Time of Evaluation Date of Evaluation: 03/29/17 Time of Evaluation: 10:49 - Subjective Subjective: no events for hd today on po steroids plt 32 Objective - Vital Signs/Intake and Output Vital Signs (last 24 hours): Temp Pulse Resp BP Pulse Ox 97.8 F 66 16 128/69 98 03/29/17 08:45 03/29/17 08:45 03/29/17 08:45 03/29/17 10:15 03/29/17 08:45 Intake and Output: 03/29/17 03/29/17 06:59 18:59 Intake Total 200 Balance 200 - Medications Medications: Current Medications Calcium Acetate (Phoslo) 667 mg PO TIDCC [facility] Last Admin: 03/29/17 08:28 Dose: 667 mg Carvedilol (Coreg) 25 mg PO BID [facility] Last Admin: 03/28/17 17:59 Dose: 25 mg Clonidine HCl (Catapres) 0.2 mg PO BID [facility] Last Admin: 03/28/17 17:59 Dose: 0.2 mg Famotidine (Pepcid) 20 mg PO DAILY [facility] Last Admin: 03/28/17 09:29 Dose: 20 mg Hydralazine HCl (Apresoline) 50 mg PO Q6H [facility] Last Admin: 03/29/17 06:17 Dose: 50 mg Lisinopril (Zestril) 5 mg PO DAILY [facility] Last Admin: 03/28/17 09:29 Dose: 5 mg Ondansetron HCl (Zofran Inj) 4 mg IVP Q6H PRN PRN Reason: Nausea/Vomiting Last Admin: 03/16/17 05:05 Dose: 4 mg Prednisone (Prednisone Tab) 40 mg PO DAILY [facility] Stop: 03/31/17 10:00 Last Admin: 03/28/17 09:29 Dose: 40 mg - Labs Labs: 03/29/17 07:17 03/29/17 07:17 PT 13.3 SECONDS (9.7-12.2) H 03/17/17 06:24 INR 1.2 03/17/17 06:24 APTT 26 SECONDS (21-34) 03/17/17 06:24 - Constitutional Appears: Non-toxic, No Acute Distress - Head Exam Head Exam: NORMAL INSPECTION - Eye Exam Eye Exam: Normal appearance - ENT Exam ENT Exam: Mucous Membranes Moist, Normal Exam - Neck Exam Neck Exam: Normal Inspection - Respiratory Exam Respiratory Exam: Clear to Ausculation Bilateral, NORMAL BREATHING PATTERN - Cardiovascular Exam Cardiovascular Exam: REGULAR RHYTHM, RRR - GI/Abdominal Exam GI & Abdominal Exam: Distended, Soft, Normal Bowel Sounds - Extremities Exam Extremities Exam: Normal Inspection Assessment and Plan (1) Atypical hemolytic uremic syndrome Status: Acute (2) End stage renal disease Status: Acute (3) Hypertensive emergency Status: Acute (4) Other primary thrombocytopenia Status: Acute (5) Anemia Status: Acute - Assessment and Plan (Free Text) Assessment: hd tts outpt hd placement
[2017-03-29 12:35] VITALS: RESP 17; TEMP 98
[2017-03-29 13:38] VITALS: BP 130/86; PULSE 65
--- NOTE | 2017-03-29 16:13 | CP.PCM.DIS ---
<Jose Elias Dennison - Last Filed: 03/29/17 18:58> Provider - Provider Date of Admission: 03/15/17 14:02 Attending physician: Odette Quinones DO Consults: Dr. Abdelrahman Villasenor Time Spent in preparation of Discharge (in minutes): 55 Hospital Course - Lab Results Lab Results: Micro Results 03/27/17 Unknown Urine Urine Culture - Final No Growth (<1,000 CFU/ML) 03/26/17 12:07 Blood-During Dialysis Blood Culture - Preliminary NO GROWTH AFTER 3 DAYS 03/26/17 12:07 Blood-During Dialysis Blood Culture - Preliminary NO GROWTH AFTER 3 DAYS 03/23/17 13:40 Blood Blood Culture - Final NO GROWTH AFTER 5 DAYS 03/23/17 13:40 Blood Gram Stain - Final 03/23/17 14:20 Blood Blood Culture - Final NO GROWTH AFTER 5 DAYS 03/23/17 14:20 Blood Gram Stain - Final TEST NOT PERFORMED 03/18/17 06:20 Nose MRSA Culture - Final MRSA NOT DETECTED 03/15/17 15:53 Naris MRSA Culture (Admit) - Final MRSA NOT DETECTED Most Recent Lab Values WBC 21.2 K/uL (4.8-10.8) H 03/29/17 07:17 RBC 3.37 Mil/uL (4.40-5.90) L 03/29/17 07:17 Hgb 10.0 g/dL (12.0-18.0) L 03/29/17 07:17 Hct 30.8 % (35.0-51.0) L 03/29/17 07:17 MCV 91.4 fL (80.0-94.0) 03/29/17 07:17 MCH 29.6 pg (27.0-31.0) 03/29/17 07:17 MCHC 32.4 g/dL (33.0-37.0) L 03/29/17 07:17 RDW 15.1 % (11.5-14.5) H 03/29/17 07:17 Plt Count 32 K/uL (130-400) L 03/29/17 07:17 MPV 8.7 fL (7.2-11.7) 03/29/17 07:17 Neut % (Auto) 75.8 % (50.0-75.0) H 03/29/17 07:17 Lymph % (Auto) 10.9 % (20.0-40.0) L 03/29/17 07:17 Imperial % (Auto) 13.1 % (0.0-10.0) H 03/29/17 07:17 Eos % (Auto) 0.0 % (0.0-4.0) 03/29/17 07:17 Baso % (Auto) 0.2 % (0.0-2.0) 03/29/17 07:17 Neut # 16.1 K/uL (1.8-7.0) H 03/29/17 07:17 Lymph # 2.3 K/uL (1.0-4.3) 03/29/17 07:17 Imperial # 2.8 K/uL (0.0-0.8) H 03/29/17 07:17 Eos # 0.0 K/uL (0.0-0.7) 03/29/17 07:17 Baso # 0.0 K/uL (0.0-0.2) 03/29/17 07:17 Neutrophils % (Manual) 88 % (50-75) H 03/27/17 09:21 Lymphocytes % (Manual) 5 % (20-40) L 03/27/17 09:21 Monocytes % (Manual) 7 % (0-10) 03/27/17 09:21 Nucleated RBC % 1 % (0-0) H 03/25/17 07:07 Differential Comment 03/29/17 07:17 Platelet Estimate Decreased (NORMAL) L 03/27/17 09:21 Large Platelets Present 03/27/17 09:21 Giant Platelets Present 03/27/17 09:21 Hypochromasia (manual) Slight 03/27/17 09:21 Poikilocytosis (manual Slight 03/27/17 09:21 Anisocytosis (manual) Slight 03/27/17 09:21 Microcytosis (manual) Slight 03/27/17 09:21 Macrocytosis (manual) Slight 03/27/17 09:21 Target Cells Slight 03/25/17 07:07 Tear Drop Cells Slight 03/27/17 09:21 Ovalocytes Slight 03/27/17 09:21 Alicia Cells Slight 03/26/17 09:07 Acanthocytes (Spur) Slight 03/27/17 09:21 Schistocytes Slight 03/27/17 09:21 ESR 2 mm/hr (0-15) 03/26/17 10:05 Retic Count 1.3 % (0.5-1.5) 03/16/17 06:24 Haptoglobin 22 mg/dL (43-212) L 03/16/17 06:27 PT 13.3 SECONDS (9.7-12.2) H 03/17/17 06:24 INR 1.2 03/17/17 06:24 APTT 26 SECONDS (21-34) 03/17/17 06:24 Sodium 134 mmol/L (132-148) 03/29/17 07:17 Potassium 4.8 mmol/L (3.6-5.2) 03/29/17 07:17 Chloride 102 mmol/L (98-107) 03/29/17 07:17 Carbon Dioxide 24 mmol/L (22-30) 03/29/17 07:17 Anion Gap 13 (10-20) 03/29/17 07:17 BUN 93 mg/dL (9-20) H 03/29/17 07:17 Creatinine 5.1 MG/DL (0.8-1.5) H 03/29/17 07:17 Est GFR ( Amer) 16 03/29/17 07:17 Est GFR (Non-Af Amer) 13 03/29/17 07:17 Random Glucose 87 mg/dL (75-110) 03/29/17 07:17 Calcium 8.0 mg/dl (8.6-10.4) L 03/29/17 07:17 Phosphorus 3.5 mg/dL (2.5-4.5) 03/27/17 09:21 Magnesium 2.4 mg/dL (1.6-2.3) H 03/27/17 09:21 Ferritin 253.0 ng/mL 03/16/17 06:27 Total Bilirubin 0.6 mg/dL (0.2-1.3) 03/29/17 07:17 AST 26 U/L (17-59) 03/29/17 07:17 ALT 106 U/L (21-72) H 03/29/17 07:17 Alkaline Phosphatase 85 U/L (38-126) 03/29/17 07:17 Lactate Dehydrogenase 1114 U/L (313-618) H 03/16/17 06:27 Troponin I 0.0170 ng/mL (0.00-0.120) 03/15/17 10:58 C-React Prot High Sens < 0.10 mg/L (1.00-3.00) L 03/26/17 10:05 Total Protein 4.9 g/dL (6.3-8.3) L 03/29/17 07:17 Albumin 2.6 g/dL (3.5-5.0) L 03/29/17 07:17 Globulin 2.3 gm/dL (2.2-3.9) 03/29/17 07:17 Albumin/Globulin Ratio 1.1 (1.0-2.1) 03/29/17 07:17 Lipase 160 U/L (23-300) 03/15/17 10:58 Vitamin B12 818 pg/mL (239-931) 03/16/17 06:27 Folate 11.9 ng/mL 03/16/17 06:27 Procalcitonin < 0.05 NG/ML (0.19-0.49) L 03/24/17 17:25 Urine Color Yellow (YELLOW) 03/16/17 06:24 Urine Clarity Clear (Clear) 03/16/17 06:24 Urine pH 5.0 (5.0-8.0) 03/16/17 06:24 Ur Specific [place] 1.015 (1.003-1.030) 03/16/17 06:24 Urine Protein 3+ mg/dL (NEGATIVE) H 03/16/17 06:24 Urine Glucose (UA) Normal mg/dL (Normal) 03/16/17 06:24 Urine Ketones Negative mg/dL (NEGATIVE) 03/16/17 06:24 Urine Blood 1+ (NEGATIVE) H 03/16/17 06:24 Urine Nitrate Negative (NEGATIVE) 03/16/17 06:24 Urine Bilirubin Negative (NEGATIVE) 03/16/17 06:24 Urine Urobilinogen Normal mg/dL (0.2-1.0) 03/16/17 06:24 Ur Leukocyte Esterase Neg Amy/uL (Negative) 03/16/17 06:24 Urine WBC (Auto) 1 /hpf (0-5) 03/16/17 06:24 Urine RBC (Auto) 11 /hpf (0-3) H 03/16/17 06:24 Urine Bacteria Rare (<OCC) 03/16/17 06:24 Hep Bs Antigen Negative (NEGATIVE) 03/17/17 16:31 Hep Bs Antibody Negative (NEGATIVE) 03/17/17 16:31 Hep B Core IgM Ab Negative (NEGATIVE) 03/17/17 16:31 Hepatitis C Antibody Negative (NEGATIVE) 03/17/17 16:31 Blood Type O POSITIVE 03/15/17 14:11 Antibody Screen Negative 03/15/17 14:11 - Hospital Course Hospital Course: HPI: This is a 31 year old male who is well known to the hospitalist service from a previous admission on 10/02/2016 and then discharged on 11/01/2016. During that time he was admitted after being found on the ground by co-wokers. He was confused, reporting difficulty seeing with difficulty seeing as well as easy nose and mouth bleeding. At that time his platelet count was found to be only 10 and he was in and out of the ICU here at [facility]. 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 C -anca was negative. HIV, MAGDI, rheumatoid panel and complement studies were also negative. Patient was transfused multiple times with platelets. Patient' s platelets went as low as 5 over hospital stay. No improvement with steroids. Patient was started on Ecluzimab (Soloris) on 10/26 per clinical trial and has been on this medication since then - it is a once a week medication given under the approval of the hospital due to the cost. He has been following up with the [facility] as well as with Hematology Oncology Further more the patient had ongoing worsening renal function particularly after 10/16 and a renal biopsy was done after the patient had multiple platelet transfusions. He did well the following few days however after he had a precipitous drop in the platelet count again he developed abdominal pain and had a large retroperitoneal hemorrhage around the left kidney. Because of the heavy bleeding requiring many PRBCs ultimately he had to have a left renal angiogram with embolization of left kidney. There was discussion of giving the patient HD due to the worsening renal function however because of the chronically low platelet counts this was deferred. 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 Today 03/15 he returns with the CC of difficulty seeing, headache as well as bleeding gums. He is not alter mental status as he was from before. However his blood pressure is very elevated with a systolic of 190 and having headache and blurry vision. He has already been given several rounds of hydralazine IV 10mg as well as norasvc 10 and labatelol 20mg IVP x 1. He again has a plateletcount of 10. He has minimal bleeding in his mouth. He does not have any rash or petechia. We discussed about transferring the patient to another hospital since his situation has not improved even with the Ecluzimab and his renal function is worsening with a creatine of 5.0. After my discussion with multiple physicians we agreed to admit here. I am going to give large doses of solumedrol as well as give DDAVP now and also platelets now. He denied chest pain, denied palpitations, denied abdominal or flank pain (last time had a large renal bleed and severe pain) He reported + blurry vision, + headache, + blood in mouth, + easy bruising + blood in urine + intermitent fevers. He doesn't know if he has blood in stools or not. Hospital Course: Patient is a 31 y/o M who presented with complaint of difficulty seeing , headache, and bleeding gums. He was found to be thrombocytopenic with eleveated BUN and creatinine. Nephrology, and heme onc were consulted and patient was deemed to need platelet transfusion and hemodialysis. Hew as transfused platlets and given DDAVP and his platelets improved. 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 Surgery was consulted and a portacath was placed in the patient. He was able to begin getting hemodialysis which he tolerated well. The patient's blood pressure was found to be elevated and he reported not taking his medications due to cost. He had been placed on IV steroids and transfused more platelets. His platelet count remained stable and the patient was pending placement to a dialysis center. The patient requested to leave and mentioned multiple times about signing out. He was determined medically stable for discharge. He was advised to: follow up with your primary care physician, Dr. Wilkins, within a week at [facility]; follow up with your nephologist, Dr. Villasenor, as an outpatient; follow up with your candle wrapping machine operator, Dr. Benites, within a week; will need to make your appointment at the infusion unit on 03/30/17 at 10:00 AM; resume your home medications and take your blood pressure daily; keep a log of your blood pressure at home; will need to take the prednisone 40mg daily for 2 days, then 30mg daily for 5 days, then 20mg daily for 5 days, then 10 mg daily for 5 days and finally 5mg daily for 5 days; will need to go to the hospital for dialysis on tuesdays, , and saturdays; and if your condition worsens, you begin bleeding, or new symptoms arise, please return to the emergency room. The patient verbalized understanding and was discharged home with prescriptions for Lisinopril 5mg PO daily, and prednisone taper. This is a brief summary of the patient's stay at this facility. For more detail , see patient's full chart. - Date & Time of H&P Date of H&P: 03/15/17 Time of H&P: 14:09 Discharge Exam - Head Exam Head Exam: NORMAL INSPECTION - Eye Exam Eye Exam: EOMI, Normal appearance, PERRL Pupil Exam: NORMAL ACCOMODATION, PERRL - ENT Exam ENT Exam: Mucous Membranes Moist, Normal Oropharynx - Respiratory Exam Respiratory Exam: NORMAL BREATHING PATTERN. absent: Rales, Rhonchi, Wheezes - Cardiovascular Exam Cardiovascular Exam: REGULAR RHYTHM, +S1, +S2. absent: Gallop, Rubs, Systolic Murmur - GI/Abdominal Exam GI & Abdominal Exam: Soft. absent: Distended, Guarding, Tenderness - Extremities Exam Extremities exam: normal capillary refill, normal inspection, pedal pulses present - Back Exam Back exam: NORMAL INSPECTION. absent: rash noted, tenderness - Neurological Exam Neurological exam: Alert, CN II-XII Intact, Normal Gait, Oriented x3, Reflexes Normal - Psychiatric Exam Psychiatric exam: Normal Affect, Normal Mood - Skin Skin Exam: Dry, Intact, Normal Color, Warm Discharge Plan - Discharge Medications Prescriptions: Lisinopril [Zestril] 5 mg PO DAILY #30 tab predniSONE [predniSONE Tab] 30 mg PO DAILY 5 Days predniSONE [predniSONE Tab] 10 mg PO DAILY #5 tab predniSONE [predniSONE Tab] 40 mg PO DAILY 2 Days predniSONE [Prednisone] 20 mg PO DAILY #5 tab predniSONE [predniSONE Tab] 5 mg PO DAILY #5 tab - Follow Up Plan Condition: FAIR Disposition: HOME/ ROUTINE Instructions: Lisinopril (By mouth), Prednisone (By mouth), Acute Kidney Injury (DC), Hypertension (DC) Additional Instructions: You are medically stable for discharge. Please follow up with your primary care physician, Dr. Wilkins, within a week at the [facility]. Please follow up with your nephologist, Dr. Villasenor, as an outpatient. Please follow up with your candle wrapping machine operator, Dr. Benites, within a week. You will need to make your appointment at the infusion unit on 03/30/17 at 10:00 AM. Please resume your home medications and take your blood pressure daily. Please keep a log of your blood pressure at home. You are discharged with prescriptions for Lisinopril 5mg PO daily and Prednisone. You will need to take the prednisone 40mg daily for 2 days, then 30mg daily for 5 days, then 20mg daily for 5 days, then 10 mg daily for 5 days and finally 5mg daily for 5 days. You will need to go to the hospital for dialysis on tuesdays, , and saturdays. If your condition worsens, you begin bleeding, or new symptoms arise, please return to the emergency room. Referrals: Nas Benites MD [Staff Provider] - Gustavo Villasenor MD [Staff Provider] - Bindu Wilkins MD [Staff Provider] - <Romeo Snyder - Last Filed: 03/30/17 07:37> Provider - Provider Date of Admission: 03/15/17 14:02 Attending physician: Odette Quinones DO Hospital Course - Lab Results Lab Results: Micro Results 03/27/17 Unknown Urine Urine Culture - Final No Growth (<1,000 CFU/ML) 03/26/17 12:07 Blood-During Dialysis Blood Culture - Preliminary NO GROWTH AFTER 3 DAYS 03/26/17 12:07 Blood-During Dialysis Blood Culture - Preliminary NO GROWTH AFTER 3 DAYS 03/23/17 13:40 Blood Blood Culture - Final NO GROWTH AFTER 5 DAYS 03/23/17 13:40 Blood Gram Stain - Final 05/10/17 14:20 Blood Blood Culture - Final NO GROWTH AFTER 5 DAYS 03/23/17 14:20 Blood Gram Stain - Final TEST NOT PERFORMED 03/18/17 06:20 Nose MRSA Culture - Final MRSA NOT DETECTED 03/15/17 15:53 Naris MRSA Culture (Admit) - Final MRSA NOT DETECTED Most Recent Lab Values WBC 21.2 K/uL (4.8-10.8) H 03/29/17 07:17 RBC 3.37 Mil/uL (4.40-5.90) L 03/29/17 07:17 Hgb 10.0 g/dL (12.0-18.0) L 03/29/17 07:17 Hct 30.8 % (35.0-51.0) L 03/29/17 07:17 MCV 91.4 fL (80.0-94.0) 03/29/17 07:17 MCH 29.6 pg (27.0-31.0) 03/29/17 07:17 MCHC 32.4 g/dL (33.0-37.0) L 03/29/17 07:17 RDW 15.1 % (11.5-14.5) H 03/29/17 07:17 Plt Count 32 K/uL (130-400) L 03/29/17 07:17 MPV 8.7 fL (7.2-11.7) 03/29/17 07:17 Neut % (Auto) 75.8 % (50.0-75.0) H 03/29/17 07:17 Lymph % (Auto) 10.9 % (20.0-40.0) L 03/29/17 07:17 [place] % (Auto) 13.1 % (0.0-10.0) H 03/29/17 07:17 Eos % (Auto) 0.0 % (0.0-4.0) 03/29/17 07:17 Baso % (Auto) 0.2 % (0.0-2.0) 03/29/17 07:17 Neut # 16.1 K/uL (1.8-7.0) H 03/29/17 07:17 Lymph # 2.3 K/uL (1.0-4.3) 03/29/17 07:17 Imperial # 2.8 K/uL (0.0-0.8) H 03/29/17 07:17 Eos # 0.0 K/uL (0.0-0.7) 03/29/17 07:17 Baso # 0.0 K/uL (0.0-0.2) 03/29/17 07:17 Neutrophils % (Manual) 88 % (50-75) H 03/27/17 09:21 Lymphocytes % (Manual) 5 % (20-40) L 03/27/17 09:21 Monocytes % (Manual) 7 % (0-10) 03/27/17 09:21 Nucleated RBC % 1 % (0-0) H 03/25/17 07:07 Differential Comment 03/29/17 07:17 Platelet Estimate Decreased (NORMAL) L 03/27/17 09:21 Large Platelets Present 03/27/17 09:21 Giant Platelets Present 03/27/17 09:21 Hypochromasia (manual) Slight 03/27/17 09:21 Poikilocytosis (manual Slight 03/27/17 09:21 Anisocytosis (manual) Slight 03/27/17 09:21 Microcytosis (manual) Slight 03/27/17 09:21 Macrocytosis (manual) Slight 03/27/17 09:21 Target Cells Slight 03/25/17 07:07 Tear Drop Cells Slight 03/27/17 09:21 Ovalocytes Slight 03/27/17 09:21 Marine Cells Slight 03/26/17 09:07 Acanthocytes (Spur) Slight 03/27/17 09:21 Schistocytes Slight 03/27/17 09:21 ESR 2 mm/hr (0-15) 03/26/17 10:05 Retic Count 1.3 % (0.5-1.5) 03/16/17 06:24 Haptoglobin 22 mg/dL (43-212) L 03/16/17 06:27 PT 13.3 SECONDS (9.7-12.2) H 03/17/17 06:24 INR 1.2 03/17/17 06:24 APTT 26 SECONDS (21-34) 03/17/17 06:24 Sodium 134 mmol/L (132-148) 03/29/17 07:17 Potassium 4.8 mmol/L (3.6-5.2) 03/29/17 07:17 Chloride 102 mmol/L (98-107) 03/29/17 07:17 Carbon Dioxide 24 mmol/L (22-30) 03/29/17 07:17 Anion Gap 13 (10-20) 03/29/17 07:17 BUN 93 mg/dL (9-20) H 03/29/17 07:17 Creatinine 5.1 MG/DL (0.8-1.5) H 03/29/17 07:17 Est GFR ( Amer) 16 03/29/17 07:17 Est GFR (Non-Af Amer) 13 03/29/17 07:17 Random Glucose 87 mg/dL (75-110) 03/29/17 07:17 Calcium 8.0 mg/dl (8.6-10.4) L 03/29/17 07:17 Phosphorus 3.5 mg/dL (2.5-4.5) 03/27/17 09:21 Magnesium 2.4 mg/dL (1.6-2.3) H 03/27/17 09:21 Ferritin 253.0 ng/mL 03/16/17 06:27 Total Bilirubin 0.6 mg/dL (0.2-1.3) 03/29/17 07:17 AST 26 U/L (17-59) 03/29/17 07:17 ALT 106 U/L (21-72) H 03/29/17 07:17 Alkaline Phosphatase 85 U/L (38-126) 03/29/17 07:17 Lactate Dehydrogenase 1114 U/L (313-618) H 03/16/17 06:27 Troponin I 0.0170 ng/mL (0.00-0.120) 03/15/17 10:58 C-React Prot High Sens < 0.10 mg/L (1.00-3.00) L 03/26/17 10:05 Total Protein 4.9 g/dL (6.3-8.3) L 03/29/17 07:17 Albumin 2.6 g/dL (3.5-5.0) L 03/29/17 07:17 Globulin 2.3 gm/dL (2.2-3.9) 03/29/17 07:17 Albumin/Globulin Ratio 1.1 (1.0-2.1) 03/29/17 07:17 Lipase 160 U/L (23-300) 03/15/17 10:58 Vitamin B12 818 pg/mL (239-931) 03/16/17 06:27 Folate 11.9 ng/mL 03/16/17 06:27 Procalcitonin < 0.05 NG/ML (0.19-0.49) L 03/24/17 17:25 Urine Color Yellow (YELLOW) 03/16/17 06:24 Urine Clarity Clear (Clear) 03/16/17 06:24 Urine pH 5.0 (5.0-8.0) 03/16/17 06:24 Ur Specific [place] 1.015 (1.003-1.030) 03/16/17 06:24 Urine Protein 3+ mg/dL (NEGATIVE) H 03/16/17 06:24 Urine Glucose (UA) Normal mg/dL (Normal) 03/16/17 06:24 Urine Ketones Negative mg/dL (NEGATIVE) 03/16/17 06:24 Urine Blood 1+ (NEGATIVE) H 03/16/17 06:24 Urine Nitrate Negative (NEGATIVE) 03/16/17 06:24 Urine Bilirubin Negative (NEGATIVE) 03/16/17 06:24 Urine Urobilinogen Normal mg/dL (0.2-1.0) 03/16/17 06:24 Ur Leukocyte Esterase Neg Amy/uL (Negative) 03/16/17 06:24 Urine WBC (Auto) 1 /hpf (0-5) 03/16/17 06:24 Urine RBC (Auto) 11 /hpf (0-3) H 03/16/17 06:24 Urine Bacteria Rare (<OCC) 03/16/17 06:24 Hep Bs Antigen Negative (NEGATIVE) 03/17/17 16:31 Hep Bs Antibody Negative (NEGATIVE) 03/17/17 16:31 Hep B Core IgM Ab Negative (NEGATIVE) 03/17/17 16:31 Hepatitis C Antibody Negative (NEGATIVE) 03/17/17 16:31 Blood Type O POSITIVE 03/15/17 14:11 Antibody Screen Negative 03/15/17 14:11 Attending/Attestation - Attestation I have personally seen and examined this patient.: Yes I have fully participated in the care of the patient.: Yes I have reviewed all pertinent clinical information, including history, physical exam and plan: Yes Notes (Text): Medical attending: Patient was seen and examined by me, agrees the above note by medical lab technician. We had a microbiology lab manager helped us yesterday and today of discharge. We made it very clear to the patient that in the future he does need to have dialysis. He now has a permacath placement. 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 The patient continues to receive the experimental medication Ecluizumab. The company providing this medication requires that the patient receive this at an infusion center, and that the patient be outpatient condition and not be inpatient this is been explained to me several times by multiple departments of the hospital. I've explained to the several department to the hospital that the patient still requires hemodialysis require hemodialysis for the remainder of his life The situation is made even further complicated since the patient does not speak [place], and from what I understand his immigration status is undocumented. Because of this the caseworkers are having difficulty finding the patient outpatient hemodialysis placement Because the patient is currently dependent on this experimental medication, we used a microbiology lab manager to explain to the patient that he would have to be discharged. However we emphasized to him that he still needs hemodialysis so we explained that when he becomes weak and tired feels fatigue that he does need to come back to the hospital there is some question as to where he could go he could certainly come back to [facility] for further hemodialysis if need to he would make sense for him to do this since was of his medical records are here. thank you very much Romeo Snyder
== END 2017-03-29 17:05 | disposition home or self-care (01) | DRG 543 ==
LOC: C.ER 09:43 → C.9E 14:02 → C.9I 14:32 → C.3T 03-18 22:22
PROVIDERS: ADMIT Hospitalist; ATTEND Hospitalist
PROC: 30233R1 Transfusion of Nonautologous Platelets into Peripheral Vein, Percutaneous Approach (ICD-10-PCS; 2017-03-16)
PROC: B518ZZA Fluoroscopy of Superior Vena Cava, Guidance (ICD-10-PCS; 2017-03-17)
PROC: 5A1D60Z (ICD-10-PCS; 2017-03-17)
PROC: 02HV33Z Insertion of Infusion Device into Superior Vena Cava, Percutaneous Approach (ICD-10-PCS; principal; 2017-03-17 12:45)
DX: I16.1 Hypertensive emergency (principal); N17.9 Acute kidney failure, unspecified; D59.3 Hemolytic-uremic syndrome; D69.6 Thrombocytopenia, unspecified; N18.4 Chronic kidney disease, stage 4 (severe); N18.5 Chronic kidney disease, stage 5; I12.0 Hypertensive chronic kidney disease with stage 5 chronic kidney disease or end stage renal disease; R41.82 Altered mental status, unspecified; K06.8 Other specified disorders of gingiva and edentulous alveolar ridge; F17.210 Nicotine dependence, cigarettes, uncomplicated; Z90.81 Acquired absence of spleen

== ENCOUNTER 2017-05-25 08:14 | Inpatient (IN) | payer SELFPAY ==
[2017-05-25 08:22] VITALS: BMI 29.3
--- NOTE | 2017-05-25 08:43 | C.PDOC ---
History Of Present Illness 31 y/o male brought in by EMS, referred to ED for Permacath replacement. Pt with history of atypical hemolytic uremic syndrome, ESRD. Pt reports intermittent palpitations x2 weeks which onset while being dialyzed, "starts racing and gets progressively worse during it;" symptoms resolved once hemodialysis is finished. Last hemodialysis 05/23. Pt currently asymptomatic. Denies excessive bleeding, headache, vision changes or any other complaints. VIA TRANS REFERRED FOR PERMACATH REPLACEMENT. HO atypical hemolytic uremic syndrome, ESRD. PS W INTERMIT PALPITATIONS X 2 WEEKS. ONSET WHILE BEING DIALYZED "STARTS RACING AND GETS PROGRESSIVELY WORSE DURING IT". RESOLVES ONCE HD IS FINISHED. LAST HD 05/23. CURRRENTLY ASYMPT DENIES EXCESSIVE BLEEDING, MI, VISION CHANGE. EXAM NEG Time Seen by Provider: 05/25/17 08:23 History Per: Patient History/Exam Limitations: no limitations Onset/Duration Of Symptoms: Days Current Symptoms Are (Timing): Gone Severity: Moderate Recent travel outside of the [place]: No Past Medical History Reviewed: Historical Data, Nursing Documentation, Vital Signs Vital Signs: Last Vital Signs Temp 97.8 F 05/25/17 10:39 Pulse 59 L 05/25/17 10:39 Resp 16 05/25/17 10:39 BP 113/80 05/25/17 10:39 Pulse Ox 100 05/25/17 10:39 - Medical History PMH: HTN - [facility] Procedures EXCISION OF LEFT KIDNEY, PERCUTANEOUS APPROACH, DIAGNOSTIC (09/28/16) EXTRACTION OF ILIAC BONE MARROW, PERC APPROACH, DIAGN (09/28/16) FLUOROSCOPY OF SUPERIOR VENA CAVA, GUIDANCE (03/15/17) INJECT/INFUSE NEC (12/01/14) INSERTION OF INFUSION DEV INTO SUP VENA CAVA, PERC APPROACH (03/15/17) OCCLUSION OF L RENAL ART WITH INTRALUM DEV, PERC APPROACH (09/28/16) PERFORMANCE OF URINARY FILTRATION, MULTIPLE (03/15/17) PHERESIS OF PLASMA, MULTIPLE (09/28/16) TRANSFUSE NONAUT FROZEN PLASMA IN PERIPH VEIN, PERC (09/28/16) TRANSFUSE NONAUT PLATELETS IN PERIPH VEIN, PERC (03/15/17) TRANSFUSE NONAUT RED BLOOD CELLS IN PERIPH VEIN, PERC (09/28/16) ULTRASONOGRAPHY OF LEFT KIDNEY (09/28/16) Family History: States: Unknown Family Hx - Social History Hx Alcohol Use: No Hx Substance Use: No - Immunization History Hx Tetanus Toxoid Vaccination: No Hx Influenza Vaccination: No Hx Pneumococcal Vaccination: No Review Of Systems Except As Marked, All Systems Reviewed And Found Negative. Constitutional: Negative for: Fever Eyes: Negative for: Vision Change Cardiovascular: Positive for: Palpitations (resolved) Respiratory: Negative for: Shortness of Breath Neurological: Negative for: Headache Physical Exam - Physical Exam Appears: Non-toxic, No Acute Distress Skin: Warm, Dry, No Rash Head: Atraumatic, Normacephalic Neck: Normal, Normal ROM, Supple Chest: Symmetrical Cardiovascular: Rhythm Regular, No Murmur Respiratory: Normal Breath Sounds, No Rales, No Rhonchi, No Wheezing Gastrointestinal/Abdominal: Normal Exam, Soft, No Tenderness Extremity: Bilateral: Atraumatic Neurological/Psych: Oriented x3, Normal Speech ED Course And Treatment - Laboratory Results Result Diagrams: 05/25/17 09:20 05/25/17 09:20 ECG: Interpreted By Me, Viewed By Me ECG Rhythm: Sinus Bradycardia Rate From EC (BPM) O2 Sat by Pulse Oximetry: 20 Progress - Re-Evaluation Re-evaluation Note: 05/25/17 09:12 D/W DR Valentín VALLE [facility] CLINIC WILL ADMIT PENDING CALLBACK DR GURROLA EXAM UNCH 05/25/17 10:18 D/W DR GURROLA. PS TO BE SWITCHED TO PERITONEAL HD PENDING MED CLEARANCE - Data Reviewed Data Reviewed: Lab, Diagnostic imaging, EKG, Old records - Continuity of Care Discussed patient case with:: Patient Medical Decision Making Medical Decision Making: Plan: * labs * UA * IV fluids Disposition Counseled Patient/Family Regarding: Studies Performed, Diagnosis - Disposition Disposition: HOSPITALIZED Disposition Time: 09:12 Condition: STABLE - POA Present On Arrival: None - Clinical Impression Clinical Impression: End stage renal disease, Complications, dialysis, catheter, mechanical, Thrombocytopenia, HUS (hemolytic uremic syndrome), atypical - Scribe Statement The provider has reviewed the documentation as recorded by the Shanika Callaway Provider Attestation: All medical record entries made by the Shanika were at my direction and personally dictated by me. I have reviewed the chart and agree that the record accurately reflects my personal performance of the history, physical exam, medical decision making, and the department course for this patient. I have also personally directed, reviewed, and agree with the discharge instructions and disposition. Decision To Admit - Pt Status Changed To: Hospital Disposition Of: Inpatient - Admit Certification Admit to Inpatient:: After my assessment, the patient will require hospitalization for at least two midnights. This is because of the severity of symptoms shown, intensity of services needed, and/or the medical risk in this patient being treated as an outpatient. - InPatient: Physician Admission Certification: I certify that this patient requires 2 or more midnights of care for the following reason:: SEE NOTE - . Bed Request Type: Regular Admitting Physician: Kyle Valle Patient Diagnosis: End stage renal disease, Complications, dialysis, catheter, mechanical, HUS ( hemolytic uremic syndrome), atypical, Thrombocytopenia
[2017-05-25 09:31] LABS: BASO # 0.1 K/uL (0.0-0.2); HEMOGLOBIN 12.7 g/dL (12.0-18.0); MEAN CELL VOLUME 92.8 fL (80.0-94.0); MONO # 1.7 K/uL (0.0-0.8); NRBC % 0.1 % (0.0-2.0)
[2017-05-25 09:35] LABS: BASO % 0.5 % (0.0-2.0); EOS # 0.5 K/uL (0.0-0.7); EOS % 4.3 % (0.0-4.0); LYMPH % 41.1 % (20.0-40.0); MEAN CORPUSCULAR HGB CONC 32.3 g/dL (33.0-37.0); MEAN PLATELET VOLUME 12.1 fL (7.2-11.7); NEUT # 4.9 K/uL (1.8-7.0); NEUT % 40.1 % (50.0-75.0); RBC 4.24 Mil/uL (4.40-5.90); RED CELL DISTRIBUTION WIDTH 15.2 % (11.5-14.5); WHITE BLOOD COUNT 12.1 K/uL (4.8-10.8)
[2017-05-25 09:39] LABS: INR 1.1; PROTHROMBIN TIME 12.4 SECONDS (9.7-12.2)
[2017-05-25 09:58] LABS: ALBUMIN 4.2 g/dL (3.5-5.0)
[2017-05-25 10:01] LABS: ALB/GLOB RATIO 1.4 (1.0-2.1)
[2017-05-25 10:03] LABS: CALCIUM 9.5 mg/dl (8.6-10.4)
--- NOTE | 2017-05-25 10:53 | CP.PCM.HP ---
<Wes Matamoros Peter - Last Filed: 05/25/17 18:24> History of Present Illness - History of Present Illness History of Present Illness: CC: palpitations during HD treatment Mr Mae is a 31 yo M with a PMHx of ESRD, thrombocytopenia, atypical hemolytic uremic syndrome, HTN who was referred to the ED for permacath replacement. His current permacath was placed in 03/2017 at which point he began hemodialysis on a tuesday//tuesday schedule. He states for the past 2 weeks each hemodialysis (HD) treatment results in an elevated heart rate and palpitations which last for about 1 hour after HD treatment completion. Associated symptoms include shortness of breath and headache. He denies any remitting factors. His last HD treatment was 05/25/17. He is currently asymptomatic. 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 absent: Chills, Fever - EENT Eyes: absent: Blurred Vision, Change in Vision, Loss of Vision Ears: absent: Ear Pain Nose/Mouth/Throat: absent: Nasal Discharge, Sore Throat - Cardiovascular Cardiovascular: Dyspnea, Palpitations, Rapid Heart Rate. absent: Chest Pain - Respiratory Respiratory: absent: Cough, Wheezing, Chest Congestion - Gastrointestinal Gastrointestinal: absent: Abdominal Pain, Change in Bowel Habits, Diarrhea - Genitourinary Genitourinary: absent: Dysuria - Musculoskeletal Musculoskeletal: absent: Muscle Weakness - Integumentary Integumentary: absent: Bleeding Lesions - Neurological Neurological: absent: Behavioral Changes, Confusion, Dizziness - Psychiatric Psychiatric: absent: Behavioral Changes, Confusion - Hematologic/Lymphatic Hematologic: absent: Easy Bleeding Additional comments: episodes of easy bleeding (bleeding gums) in the past Past Patient History - Infectious Disease Hx of Infectious Diseases: None - Past Medical History & Family History Past Medical History?: Yes - Past Social History Smoking Status: Never Smoked - CARDIAC Hx Hypertension: Yes - PULMONARY Hx Respiratory Disorders: No - NEUROLOGICAL Hx Neurological Disorder: No - HEENT Hx Deafness: (uses hearing aide) Other/Comment: HEARING IMPAIRED - RENAL Hx Chronic Kidney Disease: No - ENDOCRINE/METABOLIC Hx Endocrine Disorders: No - HEMATOLOGICAL/ONCOLOGICAL Other/Comment: Thrombocytopenia - INTEGUMENTARY Hx Dermatological Problems: No - MUSCULOSKELETAL/RHEUMATOLOGICAL Hx Musculoskeletal Disorders: No - GASTROINTESTINAL Hx Gastrointestinal Disorders: No - GENITOURINARY/GYNECOLOGICAL Hx Genitourinary Disorders: No - PSYCHIATRIC Hx Substance Use: No - SURGICAL HISTORY Hx Surgeries: Yes Hx Splenectomy: Yes (AT 4 YEARS OF AGE) - ANESTHESIA Hx Anesthesia: Yes Hx Anesthesia Reactions: No Hx Malignant Hyperthermia: No Meds Allergies/Adverse Reactions: Allergies Allergy/AdvReac Type Severity Reaction Status Date / Time aspirin AdvReac ANAPHYLAXIS Verified 05/25/17 12:58 Physical Exam - Constitutional Appears: Well, Non-toxic, No Acute Distress - Head Exam Head Exam: ATRAUMATIC, NORMAL INSPECTION, NORMOCEPHALIC - Eye Exam Eye Exam: EOMI, Normal appearance, PERRL - ENT Exam ENT Exam: Mucous Membranes Moist, Normal Exam - Neck Exam Neck exam: Positive for: Normal Inspection - Respiratory Exam Respiratory Exam: Clear to Auscultation Bilateral, NORMAL BREATHING PATTERN. absent: Wheezes - Cardiovascular Exam Cardiovascular Exam: REGULAR RHYTHM, RRR, +S1, +S2 - GI/Abdominal Exam GI & Abdominal Exam: Normal Bowel Sounds, Soft. absent: Tenderness - Rectal Exam Rectal Exam: Deferred - Extremities Exam Extremities exam: Positive for: normal inspection. Negative for: calf tenderness - Neurological Exam Neurological exam: Alert, Oriented x3 - Psychiatric Exam Psychiatric exam: Normal Affect, Normal Mood - Skin Skin Exam: Dry, Intact, Normal Color, Warm Results - Vital Signs Recent Vital Signs: Last Vital Signs Temp 97.8 F 05/25/17 10:39 Pulse 59 L 05/25/17 10:39 Resp 16 05/25/17 10:39 BP 113/80 05/25/17 10:39 Pulse Ox 100 05/25/17 10:39 - Labs Result Diagrams: 05/25/17 09:20 05/25/17 09:20 Labs: Laboratory Results - last 24 hr 05/25/17 05/25/17 05/25/17 09:20 09:20 09:20 WBC 12.1 H RBC 4.24 L Hgb 12.7 Hct 39.4 MCV 92.8 MCH 30.0 MCHC 32.3 L RDW 15.2 H Plt Count 8 L* MPV 12.1 H Neut % (Auto) 40.1 L Lymph % (Auto) 41.1 H [place] % (Auto) 14.0 H Eos % (Auto) 4.3 H Baso % (Auto) 0.5 Neut # 4.9 Lymph # 5.0 H [place] # 1.7 H Eos # 0.5 Baso # 0.1 Differential Comment PT 12.4 H INR 1.1 APTT 34 Sodium 139 Potassium 3.8 Chloride 98 Carbon Dioxide 27 Anion Gap 18 BUN 33 H Creatinine 6.8 H Est GFR ( Amer) 11 Est GFR (Non-Af Amer) 9 Random Glucose 89 Calcium 9.5 Total Bilirubin 0.7 AST 20 ALT 40 Alkaline Phosphatase 116 Total Protein 7.1 Albumin 4.2 Globulin 2.9 Albumin/Globulin Ratio 1.4 Blood Type Antibody Screen 05/25/17 09:20 WBC RBC Hgb Hct MCV MCH MCHC RDW Plt Count MPV Neut % (Auto) Lymph % (Auto) [place] % (Auto) Eos % (Auto) Baso % (Auto) Neut # Lymph # [place] # Eos # Baso # Differential Comment PT INR APTT Sodium Potassium Chloride Carbon Dioxide Anion Gap BUN Creatinine Est GFR ( Amer) Est GFR (Non-Af Amer) Random Glucose Calcium Total Bilirubin AST ALT Alkaline Phosphatase Total Protein Albumin Globulin Albumin/Globulin Ratio Blood Type O POSITIVE Antibody Screen Negative Assessment & Plan (1) Complications, dialysis, catheter, mechanical Assessment and Plan: Replacement of right chest permacath for dialysis Vascular Surgeon consult, Dr Quach -> "Tentatively schedule for OR tomorrow for peritoneal dialysis catheter insertion, pending AM platelet levels s/p transfusion" EKG -> sinus bradycardia HR 55 CXR -> No acute findings NPO after midnight except meds Status: Acute (2) Thrombocytopenia Assessment and Plan: Platelet count 8 Heme/Onc consulted, Dr Benites. Dr Valle spoke with Dr Benites over phone regarding patient's low platelet count. 1 bag platelet transfusion today Manual platelet count tomorrow morning, if platelet count tomorrow morning below 50,000 then transfuse 1 more bag Status: Acute (3) HUS (hemolytic uremic syndrome), atypical Assessment and Plan: Nephrology consulted, Dr Villasenor. Dr Villasenor is familiar with this patient from prior admission. Heme/Onc consulted, Dr Benites. Dr Benites is familiar with this patient from prior admission. Status: Acute (4) End stage renal disease Assessment and Plan: BUN 33 Cr 6.8 HD on Tuesday//Tuesday Nephrology consulted, Dr Villasenor. Status: Acute (5) Hypertension Assessment and Plan: BP currently controlled Con't home meds: lisinopril 5mg po daily, clonidine 0.2mg po bid Status: Acute (6) Elevated WBC count Assessment and Plan: WBC 12.1 when compared to wbc from previous admission in 03/2017 current wbc is significantly less monitor wbc Status: Acute (7) Prophylactic measure Assessment and Plan: SCDs b/l Protonix 40mg po daily Status: Acute <Kyle Valle - Last Filed: 05/25/17 20:36> Results - Vital Signs Recent Vital Signs: Last Vital Signs Temp 98.0 F 05/25/17 20:28 Pulse 65 05/25/17 20:28 Resp 20 05/25/17 20:28 BP 108/67 05/25/17 20:28 Pulse Ox 100 05/25/17 18:40 - Labs Result Diagrams: 05/25/17 09:20 05/25/17 09:20 Labs: Laboratory Results - last 24 hr 05/25/17 05/25/17 05/25/17 09:20 09:20 09:20 WBC 12.1 H RBC 4.24 L Hgb 12.7 Hct 39.4 MCV 92.8 MCH 30.0 MCHC 32.3 L RDW 15.2 H Plt Count 8 L* MPV 12.1 H Neut % (Auto) 40.1 L Lymph % (Auto) 41.1 H [place] % (Auto) 14.0 H Eos % (Auto) 4.3 H Baso % (Auto) 0.5 Neut # 4.9 Lymph # 5.0 H [place] # 1.7 H Eos # 0.5 Baso # 0.1 Differential Comment PT 12.4 H INR 1.1 APTT 34 Sodium 139 Potassium 3.8 Chloride 98 Carbon Dioxide 27 Anion Gap 18 BUN 33 H Creatinine 6.8 H Est GFR ( Amer) 11 Est GFR (Non-Af Amer) 9 Random Glucose 89 Calcium 9.5 Total Bilirubin 0.7 AST 20 ALT 40 Alkaline Phosphatase 116 Total Protein 7.1 Albumin 4.2 Globulin 2.9 Albumin/Globulin Ratio 1.4 Urine Color Urine Clarity Urine pH Ur Specific [place] Urine Protein Urine Glucose (UA) Urine Ketones Urine Blood Urine Nitrate Urine Bilirubin Urine Urobilinogen Ur Leukocyte Esterase Urine RBC (Auto) Blood Type Antibody Screen 05/25/17 05/25/17 09:20 15:25 WBC RBC Hgb Hct MCV MCH MCHC RDW Plt Count MPV Neut % (Auto) Lymph % (Auto) [place] % (Auto) Eos % (Auto) Baso % (Auto) Neut # Lymph # [place] # Eos # Baso # Differential Comment PT INR APTT Sodium Potassium Chloride Carbon Dioxide Anion Gap BUN Creatinine Est GFR ( Amer) Est GFR (Non-Af Amer) Random Glucose Calcium Total Bilirubin AST ALT Alkaline Phosphatase Total Protein Albumin Globulin Albumin/Globulin Ratio Urine Color Straw Urine Clarity Clear Urine pH 8.0 Ur Specific [place] 1.006 Urine Protein 1+ H Urine Glucose (UA) Normal Urine Ketones Negative Urine Blood Negative Urine Nitrate Negative Urine Bilirubin Negative Urine Urobilinogen Normal Ur Leukocyte Esterase Neg Urine RBC (Auto) < 1 Blood Type O POSITIVE Antibody Screen Negative Attending/Attestation - Attestation I have personally seen and examined this patient.: Yes I have fully participated in the care of the patient.: Yes I have reviewed all pertinent clinical information: Yes Notes (Text): 05/25/17 20:35 Patient was seen and examined at 11:00 AM ER Bed 8A. History, Physical, Assessment and Plan were thoroughly gone over with the Resident. Kyle Valle D.O.
--- NOTE | 2017-05-25 12:36 | CP.PCM.CON ---
History of Present Illness - History of Present Illness History of Present Illness: 31 y/o male brought in by EMS, referred to ED for Permacath replacement. Pt with history of atypical hemolytic uremic syndrome, ESRD. Pt reports intermittent palpitations x2 weeks which onset while being dialyzed, "starts racing and gets progressively worse during it;" symptoms resolved once hemodialysis is finished. Last hemodialysis 05/23. Pt currently asymptomatic. Denies excessive bleeding, headache, vision changes or any other complaints. PMH: ESRD ATYPICAL HUS HTN PSH: PERMCATH RENAL BX SPLENECTOMY Review of Systems - Constitutional Constitutional: absent: As Per HPI, Anorexia, Chills, Daytime Sleepiness, Excessive Sweating, Fatigue, Fever, Frequent Falls, Headache, Increased Appetite , Lethargy, Malaise, Night Sweats, Snoring, Sleep Apnea, Weight Gain, Weight Loss, Weakness, Other - EENT Eyes: absent: As Per HPI, Blind Spots, Blurred Vision, Change in Vision, Decreased Night Vision, Diplopia, Discharge, Dry Eye, Exophthalmos, Floaters, Irritation, Itchy Eyes, Loss of Peripheral Vision, Pain, Photophobia, Requires Corrective Lenses, Sees Flashes, Spots in Vision, Tunnel Vision, Other Visual Disturbances, Loss of Vision, Other Ears: Decreased Hearing - Cardiovascular Cardiovascular: absent: As Per HPI, Acrocyanosis, Chest Pain, Chest Pain at Rest , Chest Pain with Activity, Claudication, Diaphoresis, Dyspnea, Dyspnea on Exertion, Edema, Irregular Heart Rhythm, Pain Radiating to Arm/Neck/Jaw, Leg Edema, Leg Ulcers, Lightheadedness, Orthopnea, Palpitations, Paroxysmal Nocturnal Dyspnea, Pedal Edema, Radiating Pain, Rapid Heart Rate, Slow Heart Rate, Syncope, Other - Respiratory Respiratory: absent: As Per HPI, Cough, Dyspnea, Hemoptysis, Dyspnea on Exertion , Wheezing, Snoring, Stridor, Pain on Inspiration, Chest Congestion, Excessive Mucous Production, Change in Mucous Color, Pain with Coughing, Other - Gastrointestinal Gastrointestinal: absent: As Per HPI, Abdominal Pain, Belching, Bloating, Change in Bowel Habits, Change in Stool Character, Coffee Ground Emesis, Constipation, Cramping, Diarrhea, Dyspepsia, Dysphagia, Early Satiety, Excessive Flatus, Fecal Incontinence, Heartburn, Hematemesis, Hematochezia, Loose Stools, Melena, Nausea, Odynophagia, Temesmus, Vomiting, Other - Genitourinary Genitourinary: As Per HPI - Musculoskeletal Musculoskeletal: Muscle Weakness, Myalgias - Integumentary Integumentary: absent: As Per HPI, Acne, Alopecia, Bleeding Lesions, Change in Hair, Change in Nails, Change in Pigmentation, Changing Lesions, Dry Skin, Erythema, Furuncle, Hirsutism, Lesions, New Lesions, Non-Healing Lesions, Photosensitivity, Pruritus, Rash, Skin Pain, Skin Ulcer, Sores, Striae, Swelling , Unusual Bruising, Wounds, Jaundice, Other - Neurological Neurological: absent: As Per HPI, Abnormal Gait, Abnormal Hearing, Abnormal Movements, Abnormal Speech, Behavioral Changes, Burning Sensations, Confusion, Convulsions, Disequilibrium, Dizziness, Numbness, Focal Weakness, Frequent Falls , Headaches, Lack of Coordination, Loss of Vision, Memory Loss, Paresthesias, Radicular Pain, Restless Legs, Sensory Deficit, Syncope, Tingling, Tremor, Vertigo, Weakness, Other Visual Disturbances, Other - Hematologic/Lymphatic Hematologic: As Per HPI, Easy Bleeding, Easy Bruising Past Patient History - Infectious Disease Hx of Infectious Diseases: None - Past Medical History & Family History Past Medical History?: Yes Past Family History: Reviewed and not pertinent - Past Social History Smoking Status: Never Smoked Chewing Tobacco Use: No Cigar Use: No - CARDIAC Hx Hypertension: Yes - PULMONARY Hx Respiratory Disorders: No - NEUROLOGICAL Hx Neurological Disorder: No - HEENT Hx Deafness: Yes (uses hearing aide) Other/Comment: HEARING IMPAIRED - RENAL Hx Chronic Kidney Disease: No - ENDOCRINE/METABOLIC Hx Endocrine Disorders: No - HEMATOLOGICAL/ONCOLOGICAL Other/Comment: Thrombocytopenia - INTEGUMENTARY Hx Dermatological Problems: No - MUSCULOSKELETAL/RHEUMATOLOGICAL Hx Musculoskeletal Disorders: No - GASTROINTESTINAL Hx Gastrointestinal Disorders: No - GENITOURINARY/GYNECOLOGICAL Hx Genitourinary Disorders: No - PSYCHIATRIC Hx Substance Use: No - SURGICAL HISTORY Hx Surgeries: Yes Hx Splenectomy: Yes (AT 4 YEARS OF AGE) - ANESTHESIA Hx Anesthesia: Yes Hx Anesthesia Reactions: No Hx Malignant Hyperthermia: No Meds Allergies/Adverse Reactions: Allergies Allergy/AdvReac Type Severity Reaction Status Date / Time No Known Allergies Allergy Unknown none Verified 05/25/17 08:21 - Medications Medications: Current Medications Lisinopril (Zestril) 5 mg PO DAILY GUILLE Last Admin: 05/25/17 12:04 Dose: 5 mg Pantoprazole Sodium (Protonix Ec Tab) 40 mg PO DAILY GUILLE Physical Exam - Constitutional Appears: Non-toxic, No Acute Distress - Head Exam Head Exam: ATRAUMATIC, NORMAL INSPECTION - Eye Exam Eye Exam: EOMI, Normal appearance - Neck Exam Neck exam: Positive for: Normal Inspection. Negative for: Tenderness - Respiratory Exam Respiratory Exam: Clear to Auscultation Bilateral, NORMAL BREATHING PATTERN - Cardiovascular Exam Cardiovascular Exam: REGULAR RHYTHM, +S1 - GI/Abdominal Exam GI & Abdominal Exam: Soft. absent: Tenderness - Extremities Exam Extremities exam: Positive for: normal inspection. Negative for: tenderness - Neurological Exam Neurological exam: Alert, CN II-XII Intact - Skin Skin Exam: Dry, Warm Results - Vital Signs Recent Vital Signs: Last Vital Signs Temp 967.9 F H 05/25/17 11:54 Pulse 56 L 05/25/17 11:54 Resp 18 05/25/17 11:54 BP 128/82 05/25/17 11:54 Pulse Ox 100 05/25/17 11:54 - Labs Result Diagrams: 05/25/17 09:20 05/25/17 09:20 Labs: Laboratory Results - last 24 hr 05/25/17 05/25/17 05/25/17 09:20 09:20 09:20 WBC 12.1 H RBC 4.24 L Hgb 12.7 Hct 39.4 MCV 92.8 MCH 30.0 MCHC 32.3 L RDW 15.2 H Plt Count 8 L* MPV 12.1 H Neut % (Auto) 40.1 L Lymph % (Auto) 41.1 H [place] % (Auto) 14.0 H Eos % (Auto) 4.3 H Baso % (Auto) 0.5 Neut # 4.9 Lymph # 5.0 H [place] # 1.7 H Eos # 0.5 Baso # 0.1 Differential Comment PT 12.4 H INR 1.1 APTT 34 Sodium 139 Potassium 3.8 Chloride 98 Carbon Dioxide 27 Anion Gap 18 BUN 33 H Creatinine 6.8 H Est GFR ( Amer) 11 Est GFR (Non-Af Amer) 9 Random Glucose 89 Calcium 9.5 Total Bilirubin 0.7 AST 20 ALT 40 Alkaline Phosphatase 116 Total Protein 7.1 Albumin 4.2 Globulin 2.9 Albumin/Globulin Ratio 1.4 Blood Type Antibody Screen 05/25/17 09:20 WBC RBC Hgb Hct MCV MCH MCHC RDW Plt Count MPV Neut % (Auto) Lymph % (Auto) [place] % (Auto) Eos % (Auto) Baso % (Auto) Neut # Lymph # [place] # Eos # Baso # Differential Comment PT INR APTT Sodium Potassium Chloride Carbon Dioxide Anion Gap BUN Creatinine Est GFR ( Amer) Est GFR (Non-Af Amer) Random Glucose Calcium Total Bilirubin AST ALT Alkaline Phosphatase Total Protein Albumin Globulin Albumin/Globulin Ratio Blood Type O POSITIVE Antibody Screen Negative Assessment & Plan (1) End stage renal disease Status: Acute (2) HUS (hemolytic uremic syndrome), atypical Status: Acute - Assessment and Plan (Free Text) Plan: DIALYSIS MWF PD CATH PLACEMENT
--- NOTE | 2017-05-25 12:46 | RAD ---
PROCEDURE: CHEST RADIOGRAPH, 1 VIEW HISTORY: pre-op COMPARISON: 03/17/2017. FINDINGS: There is stable position of a right-sided dual lumen central venous catheter terminating at the cavoatrial junction. LUNGS: The lungs are clear. PLEURA: No pneumothorax or pleural fluid seen. CARDIOVASCULAR: Normal. OSSEOUS STRUCTURES: No significant abnormalities. VISUALIZED UPPER ABDOMEN: Normal. OTHER FINDINGS: None. IMPRESSION: No acute findings.
--- NOTE | 2017-05-25 13:32 | CP.PCM.CON ---
<Nas Benites - Last Filed: 05/25/17 13:32> Past Patient History - Infectious Disease Hx of Infectious Diseases: None - Past Medical History & Family History Past Medical History?: Yes Past Family History: Reviewed and not pertinent - Past Social History Smoking Status: Never Smoked Chewing Tobacco Use: No Cigar Use: No - CARDIAC Hx Hypertension: Yes - PULMONARY Hx Respiratory Disorders: No - NEUROLOGICAL Hx Neurological Disorder: No - HEENT Hx Deafness: Yes (uses hearing aide) Other/Comment: HEARING IMPAIRED - RENAL Hx Chronic Kidney Disease: No - ENDOCRINE/METABOLIC Hx Endocrine Disorders: No - HEMATOLOGICAL/ONCOLOGICAL Other/Comment: Thrombocytopenia - INTEGUMENTARY Hx Dermatological Problems: No - MUSCULOSKELETAL/RHEUMATOLOGICAL Hx Musculoskeletal Disorders: No - GASTROINTESTINAL Hx Gastrointestinal Disorders: No - GENITOURINARY/GYNECOLOGICAL Hx Genitourinary Disorders: No - PSYCHIATRIC Hx Substance Use: No - SURGICAL HISTORY Hx Surgeries: Yes Hx Splenectomy: Yes (AT 4 YEARS OF AGE) - ANESTHESIA Hx Anesthesia: Yes Hx Anesthesia Reactions: No Hx Malignant Hyperthermia: No Meds Allergies/Adverse Reactions: Allergies Allergy/AdvReac Type Severity Reaction Status Date / Time aspirin AdvReac ANAPHYLAXIS Verified 05/25/17 12:58 - Medications Medications: Current Medications Lisinopril (Zestril) 5 mg PO DAILY [facility] Last Admin: 05/25/17 12:04 Dose: 5 mg Pantoprazole Sodium (Protonix Ec Tab) 40 mg PO DAILY [facility] Results - Vital Signs Recent Vital Signs: Last Vital Signs Temp 967.9 F H 05/25/17 11:54 Pulse 56 L 05/25/17 11:54 Resp 18 05/25/17 11:54 BP 128/82 05/25/17 11:54 Pulse Ox 100 05/25/17 11:54 - Labs Result Diagrams: 05/25/17 09:20 05/25/17 09:20 Labs: Laboratory Results - last 24 hr 05/25/17 05/25/17 05/25/17 09:20 09:20 09:20 WBC 12.1 H RBC 4.24 L Hgb 12.7 Hct 39.4 MCV 92.8 MCH 30.0 MCHC 32.3 L RDW 15.2 H Plt Count 8 L* MPV 12.1 H Neut % (Auto) 40.1 L Lymph % (Auto) 41.1 H [place] % (Auto) 14.0 H Eos % (Auto) 4.3 H Baso % (Auto) 0.5 Neut # 4.9 Lymph # 5.0 H [place] # 1.7 H Eos # 0.5 Baso # 0.1 Differential Comment PT 12.4 H INR 1.1 APTT 34 Sodium 139 Potassium 3.8 Chloride 98 Carbon Dioxide 27 Anion Gap 18 BUN 33 H Creatinine 6.8 H Est GFR ( Amer) 11 Est GFR (Non-Af Amer) 9 Random Glucose 89 Calcium 9.5 Total Bilirubin 0.7 AST 20 ALT 40 Alkaline Phosphatase 116 Total Protein 7.1 Albumin 4.2 Globulin 2.9 Albumin/Globulin Ratio 1.4 Blood Type Antibody Screen 05/25/17 09:20 WBC RBC Hgb Hct MCV MCH MCHC RDW Plt Count MPV Neut % (Auto) Lymph % (Auto) [place] % (Auto) Eos % (Auto) Baso % (Auto) Neut # Lymph # [place] # Eos # Baso # Differential Comment PT INR APTT Sodium Potassium Chloride Carbon Dioxide Anion Gap BUN Creatinine Est GFR ( Amer) Est GFR (Non-Af Amer) Random Glucose Calcium Total Bilirubin AST ALT Alkaline Phosphatase Total Protein Albumin Globulin Albumin/Globulin Ratio Blood Type O POSITIVE Antibody Screen Negative <Vitaliy Ferguson - Last Filed: 05/25/17 15:40> Review of Systems - Review of Systems Review of Systems: 12 pt ROS carried out, unremarkable; except as stated in HPI - Integumentary Additional comments: purpuric lesions along ankles Meds - Medications Medications: Current Medications Lisinopril (Zestril) 5 mg PO DAILY [facility] Last Admin: 05/25/17 12:04 Dose: 5 mg Pantoprazole Sodium (Protonix Ec Tab) 40 mg PO DAILY [facility] Physical Exam - Constitutional Appears: No Acute Distress - Head Exam Head Exam: NORMOCEPHALIC - Eye Exam Eye Exam: Normal appearance - ENT Exam ENT Exam: Mucous Membranes Moist - Respiratory Exam Respiratory Exam: NORMAL BREATHING PATTERN - Cardiovascular Exam Cardiovascular Exam: +S1, +S2 - GI/Abdominal Exam GI & Abdominal Exam: Soft Additional comments: large abd scar s/p splenectomy - Neurological Exam Neurological exam: Alert, Oriented x3 - Psychiatric Exam Psychiatric exam: Normal Mood - Skin Skin Exam: Dry, Intact, Warm Results - Vital Signs Recent Vital Signs: Last Vital Signs Temp 967.9 F H 05/25/17 11:54 Pulse 56 L 05/25/17 11:54 Resp 18 05/25/17 11:54 BP 128/82 05/25/17 11:54 Pulse Ox 100 05/25/17 11:54 - Labs Result Diagrams: 05/25/17 09:20 05/25/17 09:20 Labs: Laboratory Results - last 24 hr 05/25/17 05/25/17 05/25/17 09:20 09:20 09:20 WBC 12.1 H RBC 4.24 L Hgb 12.7 Hct 39.4 MCV 92.8 MCH 30.0 MCHC 32.3 L RDW 15.2 H Plt Count 8 L* MPV 12.1 H Neut % (Auto) 40.1 L Lymph % (Auto) 41.1 H [place] % (Auto) 14.0 H Eos % (Auto) 4.3 H Baso % (Auto) 0.5 Neut # 4.9 Lymph # 5.0 H [place] # 1.7 H Eos # 0.5 Baso # 0.1 Differential Comment PT 12.4 H INR 1.1 APTT 34 Sodium 139 Potassium 3.8 Chloride 98 Carbon Dioxide 27 Anion Gap 18 BUN 33 H Creatinine 6.8 H Est GFR ( Amer) 11 Est GFR (Non-Af Amer) 9 Random Glucose 89 Calcium 9.5 Total Bilirubin 0.7 AST 20 ALT 40 Alkaline Phosphatase 116 Total Protein 7.1 Albumin 4.2 Globulin 2.9 Albumin/Globulin Ratio 1.4 Blood Type Antibody Screen 05/25/17 09:20 WBC RBC Hgb Hct MCV MCH MCHC RDW Plt Count MPV Neut % (Auto) Lymph % (Auto) [place] % (Auto) Eos % (Auto) Baso % (Auto) Neut # Lymph # [place] # Eos # Baso # Differential Comment PT INR APTT Sodium Potassium Chloride Carbon Dioxide Anion Gap BUN Creatinine Est GFR ( Amer) Est GFR (Non-Af Amer) Random Glucose Calcium Total Bilirubin AST ALT Alkaline Phosphatase Total Protein Albumin Globulin Albumin/Globulin Ratio Blood Type O POSITIVE Antibody Screen Negative
[2017-05-25 15:36] LABS: URINE BILIRUBIN NEGATIVE (NEGATIVE); URINE BLOOD NEGATIVE (NEGATIVE); URINE CLARITY Clear (Clear); URINE COLOR Straw (YELLOW); URINE GLUCOSE (UA) NORMAL (Normal); URINE LEUKOCYTE ESTERASE NEG Leu/uL (Negative); URINE NITRATE NEGATIVE (NEGATIVE); URINE PROTEIN 1+ mg/dL (NEGATIVE); URINE UROBILINOGEN NORMAL mg/dL (0.2-1.0)
--- NOTE | 2017-05-25 15:44 | CP.PCM.CON ---
History of Present Illness - History of Present Illness History of Present Illness: 31M w/ PMHx of ESRD, Atypical HUS, HTN, was brought in by EMS. Patient was referred to ED for permacath replacement. Permacath was placed in March 2017. Patient states he began having palpitations for the past 2 weeks and states they occur every time he is at the dialysis center and the permacath is flushed. He states he experiences rapid heart beat and associated SOB. Last hemodialysis was on 05/23. Currently denies chest pain, shortness of breath, excessive bleeding, headache, vision changes or any other complaints. PMH: HTN, ESRD, atypical HUS PSH: Splenectomy (4 years old),PERMCATH,RENAL BX Soc Hx: Former smoker 1/2 ppd x5 years. Denies EtOH use. Denies drug use Review of Systems - Review of Systems Review of Systems: 12 pt ROS carried out, unremarkable, except as stated in HPI Past Patient History - Infectious Disease Hx of Infectious Diseases: None - Past Medical History & Family History Past Medical History?: Yes Past Family History: Reviewed and not pertinent - Past Social History Smoking Status: Never Smoked Chewing Tobacco Use: No Cigar Use: No - CARDIAC Hx Hypertension: Yes - PULMONARY Hx Respiratory Disorders: No - NEUROLOGICAL Hx Neurological Disorder: No - HEENT Hx Deafness: Yes (uses hearing aide) Other/Comment: HEARING IMPAIRED - RENAL Hx Chronic Kidney Disease: No - ENDOCRINE/METABOLIC Hx Endocrine Disorders: No - HEMATOLOGICAL/ONCOLOGICAL Other/Comment: Thrombocytopenia - INTEGUMENTARY Hx Dermatological Problems: No - MUSCULOSKELETAL/RHEUMATOLOGICAL Hx Musculoskeletal Disorders: No - GASTROINTESTINAL Hx Gastrointestinal Disorders: No - GENITOURINARY/GYNECOLOGICAL Hx Genitourinary Disorders: No - PSYCHIATRIC Hx Substance Use: No - SURGICAL HISTORY Hx Surgeries: Yes Hx Splenectomy: Yes (AT 4 YEARS OF AGE) - ANESTHESIA Hx Anesthesia: Yes Hx Anesthesia Reactions: No Hx Malignant Hyperthermia: No Meds Allergies/Adverse Reactions: Allergies Allergy/AdvReac Type Severity Reaction Status Date / Time aspirin AdvReac ANAPHYLAXIS Verified 05/25/17 12:58 - Medications Medications: Current Medications Lisinopril (Zestril) 5 mg PO DAILY [facility] Last Admin: 05/25/17 12:04 Dose: 5 mg Pantoprazole Sodium (Protonix Ec Tab) 40 mg PO DAILY [facility] Physical Exam - Constitutional Appears: No Acute Distress - Head Exam Head Exam: NORMOCEPHALIC - Eye Exam Eye Exam: Normal appearance - ENT Exam ENT Exam: Mucous Membranes Moist - Respiratory Exam Respiratory Exam: NORMAL BREATHING PATTERN - Cardiovascular Exam Cardiovascular Exam: +S1, +S2 - Neurological Exam Neurological exam: Alert, Oriented x3 - Psychiatric Exam Psychiatric exam: Normal Mood - Skin Skin Exam: Dry, Intact, Warm Additional comments: Purpuric lesions along ankles Results - Vital Signs Recent Vital Signs: Last Vital Signs Temp 967.9 F H 05/25/17 11:54 Pulse 56 L 05/25/17 11:54 Resp 18 05/25/17 11:54 BP 128/82 05/25/17 11:54 Pulse Ox 100 05/25/17 11:54 - Labs Result Diagrams: 05/25/17 09:20 05/25/17 09:20 Labs: Laboratory Results - last 24 hr 05/25/17 05/25/17 05/25/17 09:20 09:20 09:20 WBC 12.1 H RBC 4.24 L Hgb 12.7 Hct 39.4 MCV 92.8 MCH 30.0 MCHC 32.3 L RDW 15.2 H Plt Count 8 L* MPV 12.1 H Neut % (Auto) 40.1 L Lymph % (Auto) 41.1 H [place] % (Auto) 14.0 H Eos % (Auto) 4.3 H Baso % (Auto) 0.5 Neut # 4.9 Lymph # 5.0 H [place] # 1.7 H Eos # 0.5 Baso # 0.1 Differential Comment PT 12.4 H INR 1.1 APTT 34 Sodium 139 Potassium 3.8 Chloride 98 Carbon Dioxide 27 Anion Gap 18 BUN 33 H Creatinine 6.8 H Est GFR ( Amer) 11 Est GFR (Non-Af Amer) 9 Random Glucose 89 Calcium 9.5 Total Bilirubin 0.7 AST 20 ALT 40 Alkaline Phosphatase 116 Total Protein 7.1 Albumin 4.2 Globulin 2.9 Albumin/Globulin Ratio 1.4 Urine Color Urine Clarity Urine pH Ur Specific [place] Urine Protein Urine Glucose (UA) Urine Ketones Urine Blood Urine Nitrate Urine Bilirubin Urine Urobilinogen Ur Leukocyte Esterase Urine RBC (Auto) Blood Type Antibody Screen 05/25/17 05/25/17 09:20 15:25 WBC RBC Hgb Hct MCV MCH MCHC RDW Plt Count MPV Neut % (Auto) Lymph % (Auto) [place] % (Auto) Eos % (Auto) Baso % (Auto) Neut # Lymph # [place] # Eos # Baso # Differential Comment PT INR APTT Sodium Potassium Chloride Carbon Dioxide Anion Gap BUN Creatinine Est GFR ( Amer) Est GFR (Non-Af Amer) Random Glucose Calcium Total Bilirubin AST ALT Alkaline Phosphatase Total Protein Albumin Globulin Albumin/Globulin Ratio Urine Color Straw Urine Clarity Clear Urine pH 8.0 Ur Specific [place] 1.006 Urine Protein 1+ H Urine Glucose (UA) Normal Urine Ketones Negative Urine Blood Negative Urine Nitrate Negative Urine Bilirubin Negative Urine Urobilinogen Normal Ur Leukocyte Esterase Neg Urine RBC (Auto) < 1 Blood Type O POSITIVE Antibody Screen Negative Assessment & Plan - Assessment and Plan (Free Text) Assessment: 31M w/ ESRD & thrombocytopenia w/ cardiac symptoms likely 2/2 permacath -Transfuse platelets -NPO after midnight -F/u AM labs -Tentatively schedule for OR tomorrow for peritoneal dialysis catheter insertion , pending AM platelet levels s/p transfusion -Dw Dr. Philomena Ferguson PGY-2
[2017-05-26 04:24] LABS: INR 1.2; PROTHROMBIN TIME 13.3 SECONDS (9.7-12.2)
[2017-05-26 04:27] LABS: ALBUMIN 3.9 g/dL (3.5-5.0)
[2017-05-26 04:28] LABS: BASO # 0.1 K/uL (0.0-0.2); EOS # 0.5 K/uL (0.0-0.7); EOS % 3.6 % (0.0-4.0); HEMOGLOBIN 12.6 g/dL (12.0-18.0); LYMPH # 4.1 K/uL (1.0-4.3); LYMPH % 29.6 % (20.0-40.0); MEAN CELL VOLUME 93.6 fL (80.0-94.0); MEAN CORPUSCULAR HEMOGLOBIN 30.2 pg (27.0-31.0); MEAN CORPUSCULAR HGB CONC 32.2 g/dL (33.0-37.0); MEAN PLATELET VOLUME 7.2 fL (7.2-11.7); MONO # 1.7 K/uL (0.0-0.8); MONO % 12.6 % (0.0-10.0); NEUT # 7.4 K/uL (1.8-7.0); NEUT % 53.2 % (50.0-75.0); NRBC % 0.2 % (0.0-2.0); RBC 4.18 Mil/uL (4.40-5.90); RED CELL DISTRIBUTION WIDTH 15.7 % (11.5-14.5); WHITE BLOOD COUNT 13.8 K/uL (4.8-10.8)
[2017-05-26 04:30] LABS: ALB/GLOB RATIO 1.3 (1.0-2.1)
[2017-05-26 04:31] LABS: CALCIUM 8.9 mg/dl (8.6-10.4)
[2017-05-26 09:11] LABS: BASO # 0.2 K/uL (0.0-0.2); NRBC % 0.1 % (0.0-2.0)
[2017-05-26 09:14] LABS: BASO % 1.4 % (0.0-2.0); EOS # 0.4 K/uL (0.0-0.7); EOS % 2.3 % (0.0-4.0); HEMOGLOBIN 12.4 g/dL (12.0-18.0); LYMPH % 23.4 % (20.0-40.0); MEAN CELL VOLUME 92.5 fL (80.0-94.0); MEAN CORPUSCULAR HEMOGLOBIN 29.9 pg (27.0-31.0); MEAN CORPUSCULAR HGB CONC 32.4 g/dL (33.0-37.0); MEAN PLATELET VOLUME 6.7 fL (7.2-11.7); MONO # 1.8 K/uL (0.0-0.8); MONO % 10.7 % (0.0-10.0); NEUT # 10.7 K/uL (1.8-7.0); NEUT % 62.2 % (50.0-75.0); RBC 4.12 Mil/uL (4.40-5.90); RED CELL DISTRIBUTION WIDTH 15.5 % (11.5-14.5); WHITE BLOOD COUNT 17.2 K/uL (4.8-10.8)
[2017-05-26] MEDS ORDERED: Pantoprazole 40 mg EC Tab PO SCH (10:00)
--- NOTE | 2017-05-26 10:16 | CP.PCM.PN ---
Subjective - Date & Time of Evaluation Date of Evaluation: 05/26/17 Time of Evaluation: 10:14 - Subjective Subjective: s/p dialysis 05/25- UF 1000ml BP controlled s/p plat transfusion- plat count 73K this AM No c/o n, v, f, c, SOB Objective - Vital Signs/Intake and Output Vital Signs (last 24 hours): Temp Pulse Resp BP Pulse Ox 98 F 66 20 109/71 96 05/26/17 07:15 05/26/17 07:15 05/26/17 07:15 05/26/17 07:15 05/26/17 07:15 Intake and Output: 05/26/17 05/26/17 06:59 18:59 Intake Total 946 Output Total 250 Balance 696 - Medications Medications: Current Medications Lisinopril (Zestril) 5 mg PO DAILY [facility] Last Admin: 05/25/17 12:04 Dose: 5 mg Pantoprazole Sodium (Protonix Ec Tab) 40 mg PO DAILY [facility] - Labs Labs: 05/26/17 09:07 05/26/17 04:14 PT 13.3 SECONDS (9.7-12.2) H 05/26/17 04:14 INR 1.2 05/26/17 04:14 APTT 33 SECONDS (21-34) 05/26/17 04:14 - Constitutional Appears: No Acute Distress, Chronically Ill - Head Exam Head Exam: ATRAUMATIC, NORMAL INSPECTION - Eye Exam Eye Exam: EOMI, Normal appearance - Neck Exam Neck Exam: Normal Inspection. absent: Tenderness - Respiratory Exam Respiratory Exam: Clear to Ausculation Bilateral, NORMAL BREATHING PATTERN - Cardiovascular Exam Cardiovascular Exam: REGULAR RHYTHM, +S1 - GI/Abdominal Exam GI & Abdominal Exam: Soft. absent: Tenderness - Extremities Exam Extremities Exam: Normal Inspection. absent: Tenderness - Neurological Exam Neurological Exam: Alert, CN II-XII Intact - Skin Skin Exam: Dry, Warm Assessment and Plan (1) End stage renal disease Status: Acute (2) HUS (hemolytic uremic syndrome), atypical Status: Acute - Assessment and Plan (Free Text) Plan: PD cath placement pending Dialysis [facility]
[2017-05-26] MEDS ORDERED: Sodium Chloride 0.9% 1,000 ML IV ONE (11:00)
[2017-05-26] MEDS ORDERED: Bupivacaine HCl 0.25% PF (10 ml) Inj ONE (11:06)
[2017-05-26] MEDS ORDERED: ceFAZolin IV 1 gm in Dextrose 2 GM/100 ML BAG IVPB ONE (11:06)
--- NOTE | 2017-05-26 12:34 | PCM.SURG1 ---
Surgeon's Initial Post Op Note - Surgeon's Notes Surgeon: Abdelrahman Quach MD; Financial Accounting Analyst: Noemy PGY3; Rakel Rosario PGY 1; Tariq Cristina OMS 3 Type of Anesthesia: General Endo Pre-Operative Diagnosis: End stage renal disease requiring dialysis Operative Findings: See op report Post-Operative Diagnosis: End stage renal disease requiring dialysis Operation Performed: Laparoscopic insertion of peritoneal dialysis catheter Specimen/Specimens Removed: none Estimated Blood Loss: EBL {In ML}: 5 Blood Products Given: N/A Drains Used: No Drains Post-Op Condition: Good Date of Surgery/Procedure: 05/26/17 Time of Surgery/Procedure: 12:35
[2017-05-26] MEDS: HYDROmorphone 0.5 mg/0.5 ml ISec IVP PRN ×3 (12:43→13:13)
[2017-05-26] MEDS ORDERED: Sodium Chloride 0.9% 1,000 ML IV SCH (12:45)
[2017-05-26] MEDS ORDERED: Oxycodone/Acetaminophen 5/325 mg Tab PO PRN (16:58)
--- NOTE | 2017-05-26 17:29 | CP.PCM.PN ---
<Wes Matamoros - Last Filed: 05/26/17 17:26> Subjective - Date & Time of Evaluation Date of Evaluation: 05/26/17 Time of Evaluation: 17:15 - Subjective Subjective: Patient was seen and examined at bedside. Patient is s/p tenkhoff catheter placement and was complaining of pain at surgical site. Patient denied fever, chest pain, shortness of breath, cough, nausea, vomiting, constipation, bleeding. Objective - Vital Signs/Intake and Output Vital Signs (last 24 hours): Temp Pulse Resp BP Pulse Ox 98.2 F 61 20 105/67 97 05/26/17 16:00 05/26/17 16:00 05/26/17 16:00 05/26/17 16:00 05/26/17 16:00 Intake and Output: 05/26/17 05/26/17 06:59 18:59 Intake Total 946 Output Total 250 Balance 696 - Medications Medications: Current Medications Acetaminophen (Tylenol 325mg Tab) 650 mg PO Q6 PRN PRN Reason: MILD PAIN Sodium Chloride (Sodium Chloride 0.9%) 1,000 mls @ 40 mls/hr IV .Q24H [facility] Lisinopril (Zestril) 5 mg PO DAILY [facility] Last Admin: 05/25/17 12:04 Dose: 5 mg Morphine Sulfate (Morphine) 1 mg IVP Q6H PRN PRN Reason: Pain, severe (8-10) Oxycodone/Acetaminophen (Percocet 5/325 Mg Tab) 1 tab PO Q6H PRN PRN Reason: Pain, moderate (4-7) Stop: 05/29/17 16:59 Pantoprazole Sodium (Protonix Ec Tab) 40 mg PO DAILY [facility] - Labs Labs: 05/26/17 09:07 05/26/17 04:14 PT 13.3 SECONDS (9.7-12.2) H 05/26/17 04:14 INR 1.2 05/26/17 04:14 APTT 33 SECONDS (21-34) 05/26/17 04:14 - Constitutional Appears: Well - Head Exam Head Exam: ATRAUMATIC, NORMAL INSPECTION, NORMOCEPHALIC - Eye Exam Eye Exam: EOMI, Normal appearance, PERRL - ENT Exam ENT Exam: Mucous Membranes Moist, Normal Exam - Neck Exam Neck Exam: Full ROM, Normal Inspection. absent: Lymphadenopathy - Respiratory Exam Respiratory Exam: Clear to Ausculation Bilateral, NORMAL BREATHING PATTERN - Cardiovascular Exam Cardiovascular Exam: REGULAR RHYTHM, RRR, +S1, +S2 - GI/Abdominal Exam GI & Abdominal Exam: Soft, Normal Bowel Sounds. absent: Tenderness Additional comments: no ecchymosis around surgical site - Extremities Exam Extremities Exam: Full ROM, Normal Capillary Refill, Normal Inspection. absent : Joint Swelling, Pedal Edema - Neurological Exam Neurological Exam: Alert, Awake, Oriented x3 - Psychiatric Exam Psychiatric exam: Normal Affect, Normal Mood - Skin Skin Exam: Dry, Intact, Normal Color, Warm Assessment and Plan (1) Complications, dialysis, catheter, mechanical Status: Acute (2) Thrombocytopenia Status: Acute (3) HUS (hemolytic uremic syndrome), atypical Status: Acute (4) End stage renal disease Status: Acute (5) Hypertension Status: Acute (6) Elevated WBC count Status: Acute (7) Prophylactic measure Status: Acute - Assessment and Plan (Free Text) Assessment: (1) Complications, dialysis, catheter, mechanical Assessment and Plan: 05/26: s/p tenkhoff catheter procedure, normal blood loss during procedure per dr Quach 05/26: patient c/o pain at surgical site - will provide percocet 5/325mg 1 tab q6 prn for moderate pain and morphine 1mg iv q6 for severe pain. Replacement of right chest permacath for dialysis Vascular Surgeon consult, Dr Quach -> "Tentatively schedule for OR tomorrow for peritoneal dialysis catheter insertion, pending AM platelet levels s/p transfusion" EKG -> sinus bradycardia HR 55 CXR -> No acute findings NPO after midnight except meds Status: Acute (2) Thrombocytopenia Assessment and Plan: 05/26: was transfused an additional bag this morning -> platelet count 71 05/26: ordered repeat cbc post procedure to monitor platelet count Platelet count 8 Heme/Onc consulted, Dr Benites. Dr Valle spoke with Dr Benites over phone regarding patient's low platelet count. 1 bag platelet transfusion today Manual platelet count tomorrow morning, if platelet count tomorrow morning below 50,000 then transfuse 1 more bag Status: Acute (3) HUS (hemolytic uremic syndrome), atypical Assessment and Plan: Nephrology consulted, Dr Villasenor. Dr Villasenor is familiar with this patient from prior admission. Heme/Onc consulted, Dr Benites. Dr Benites is familiar with this patient from prior admission. Status: Acute (4) End stage renal disease Assessment and Plan: 05/26: now with HD on MWF schedule BUN 33 Cr 6.8 HD on Tuesday//Tuesday Nephrology consulted, Dr Villasenor. Status: Acute (5) Hypertension Assessment and Plan: BP currently controlled Con't home meds: lisinopril 5mg po daily, clonidine 0.2mg po bid Status: Acute (6) Elevated WBC count Assessment and Plan: WBC 12.1 -> 05/26: 17.2 when compared to wbc from previous admission in 03/2017 current wbc is significantly less monitor wbc Status: Acute (7) Prophylactic measure Assessment and Plan: SCDs b/l Protonix 40mg po daily Status: Acute <Kyle Valle - Last Filed: 05/26/17 19:49> Objective - Vital Signs/Intake and Output Vital Signs (last 24 hours): Temp Pulse Resp BP Pulse Ox 98.2 F 61 20 105/67 97 05/26/17 16:00 05/26/17 16:00 05/26/17 16:00 05/26/17 16:00 05/26/17 16:00 - Medications Medications: Current Medications Acetaminophen (Tylenol 325mg Tab) 650 mg PO Q6 PRN PRN Reason: MILD PAIN Sodium Chloride (Sodium Chloride 0.9%) 1,000 mls @ 40 mls/hr IV .Q24H [facility] Lisinopril (Zestril) 5 mg PO DAILY [facility] Last Admin: 05/25/17 12:04 Dose: 5 mg Morphine Sulfate (Morphine) 1 mg IVP Q6H PRN PRN Reason: Pain, severe (8-10) Last Admin: 05/26/17 17:46 Dose: 1 mg Oxycodone/Acetaminophen (Percocet 5/325 Mg Tab) 1 tab PO Q6H PRN PRN Reason: Pain, moderate (4-7) Stop: 05/29/17 16:59 Pantoprazole Sodium (Protonix Ec Tab) 40 mg PO DAILY [facility] - Labs Labs: 05/26/17 09:07 05/26/17 04:14 PT 13.3 SECONDS (9.7-12.2) H 05/26/17 04:14 INR 1.2 05/26/17 04:14 APTT 33 SECONDS (21-34) 05/26/17 04:14 Attending/Attestation - Attestation I have personally seen and examined this patient.: Yes I have fully participated in the care of the patient.: Yes I have reviewed all pertinent clinical information, including history, physical exam and plan: Yes Notes (Text): 05/26/17 19:47 Patient was seen and examined at 4:45 PM [id number] 05/26/17. Exam, Assessment and Plan were thoroughly gone over withe Resident. If the CBC remains stable, then will discharge in the morning. Kyle Valle D.O.
[2017-05-26 20:14] LABS: EOS % 0.1 % (0.0-4.0); HEMOGLOBIN 12.1 g/dL (12.0-18.0)
[2017-05-26 20:19] LABS: BASO % 0.2 % (0.0-2.0); LYMPH # 2.6 K/uL (1.0-4.3); LYMPH % 14.6 % (20.0-40.0); MEAN CELL VOLUME 92.3 fL (80.0-94.0); MEAN CORPUSCULAR HEMOGLOBIN 29.6 pg (27.0-31.0); MEAN PLATELET VOLUME 7.1 fL (7.2-11.7); MONO # 1.1 K/uL (0.0-0.8); MONO % 6.1 % (0.0-10.0); NEUT # 13.9 K/uL (1.8-7.0); NRBC % 0.1 % (0.0-2.0); RBC 4.09 Mil/uL (4.40-5.90); RED CELL DISTRIBUTION WIDTH 15.2 % (11.5-14.5); WHITE BLOOD COUNT 17.6 K/uL (4.8-10.8)
--- NOTE | 2017-05-26 20:29 | CP.PCM.CON ---
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 The patient has had an extensive work up pertaining to his thrombocytopenia, anemia, and renal failure. 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 His kidney biopsy was complicated by hemorrhage and need for IR embolization. A bone marrow biopsy revealed normocellular marrow with megakaryocytic hyperplasia consistent with peripheral destruction. Plasma exchange was performed at the time with no improvement in thrombocytopenia or microangiopathic hemolysis. [id number] level returned normal and the patient was felt to have atypical HUS. He was started on eculizumab with variability in his renal function from a cr of 3-5. His platelet count remained severely low and has ranged around 10,000. Most recently he reports to increasing headache which he has been taking Advil for. He does admit to intermittent gum bleeding but no other abnormal bleeding or bruising. Past medical history: ?atypical HUS Past surgical history: None Family history: Denies known hematologic and oncologic problems Social history: Denies tobacco, alcohol, and illicit drug use. Allergies: NKA Review of systems: All remaining review of systems including HEENT, cardiovascular, respiratory, gastrointestinal, genitourinary, musculoskeletal, dermatologic, neurologic, and psychiatric are negative unless mentioned in the HPI. Past Patient History - Infectious Disease Hx of Infectious Diseases: None - Past Medical History & Family History Past Medical History?: Yes - Past Social History Smoking Status: Never Smoked - CARDIAC Hx Hypertension: Yes - PULMONARY Hx Respiratory Disorders: No - NEUROLOGICAL Hx Neurological Disorder: No - HEENT Hx Deafness: (uses hearing aide) Other/Comment: HEARING IMPAIRED - RENAL Hx Chronic Kidney Disease: No - ENDOCRINE/METABOLIC Hx Endocrine Disorders: No - HEMATOLOGICAL/ONCOLOGICAL Other/Comment: Thrombocytopenia - INTEGUMENTARY Hx Dermatological Problems: No - MUSCULOSKELETAL/RHEUMATOLOGICAL Hx Musculoskeletal Disorders: No - GASTROINTESTINAL Hx Gastrointestinal Disorders: No - GENITOURINARY/GYNECOLOGICAL Hx Genitourinary Disorders: No - PSYCHIATRIC Hx Substance Use: No - SURGICAL HISTORY Hx Surgeries: Yes Hx Splenectomy: Yes (AT 4 YEARS OF AGE) - ANESTHESIA Hx Anesthesia: Yes Hx Anesthesia Reactions: No Hx Malignant Hyperthermia: No Meds Allergies/Adverse Reactions: Allergies Allergy/AdvReac Type Severity Reaction Status Date / Time aspirin AdvReac ANAPHYLAXIS Verified 05/25/17 12:58 - Medications Medications: Current Medications Acetaminophen (Tylenol 325mg Tab) 650 mg PO Q6 PRN PRN Reason: MILD PAIN Sodium Chloride (Sodium Chloride 0.9%) 1,000 mls @ 40 mls/hr IV .Q24H [facility] Lisinopril (Zestril) 5 mg PO DAILY [facility] Last Admin: 05/25/17 12:04 Dose: 5 mg Morphine Sulfate (Morphine) 1 mg IVP Q6H PRN PRN Reason: Pain, severe (8-10) Last Admin: 05/26/17 17:46 Dose: 1 mg Oxycodone/Acetaminophen (Percocet 5/325 Mg Tab) 1 tab PO Q6H PRN PRN Reason: Pain, moderate (4-7) Stop: 05/29/17 16:59 Pantoprazole Sodium (Protonix Ec Tab) 40 mg PO DAILY [facility] Physical Exam - Head Exam Head Exam: ATRAUMATIC - Eye Exam Eye Exam: Normal appearance - ENT Exam ENT Exam: Mucous Membranes Dry - Respiratory Exam Respiratory Exam: NORMAL BREATHING PATTERN - Cardiovascular Exam Cardiovascular Exam: +S1, +S2 - GI/Abdominal Exam GI & Abdominal Exam: Normal Bowel Sounds - Extremities Exam Extremities exam: Positive for: normal inspection - Neurological Exam Neurological exam: Oriented x3 - Psychiatric Exam Psychiatric exam: Normal Affect, Normal Mood - Skin Skin Exam: Warm Results - Vital Signs Recent Vital Signs: Last Vital Signs Temp 98.2 F 05/26/17 16:00 Pulse 61 05/26/17 16:00 Resp 20 05/26/17 16:00 BP 105/67 05/26/17 16:00 Pulse Ox 97 05/26/17 16:00 - Labs Result Diagrams: 05/26/17 20:06 05/26/17 04:14 Labs: Laboratory Results - last 24 hr 05/26/17 05/26/17 05/26/17 04:14 04:14 04:14 WBC RBC Hgb Hct MCV MCH MCHC RDW Plt Count Manual Plt Count 36 L D MPV Neut % (Auto) Lymph % (Auto) [place] % (Auto) Eos % (Auto) Baso % (Auto) Neut # Lymph # [place] # Eos # Baso # Differential Comment PT 13.3 H INR 1.2 APTT 33 Sodium 133 Potassium 3.7 Chloride 93 L Carbon Dioxide 27 Anion Gap 17 BUN 20 Creatinine 4.6 H Est GFR ( Amer) 18 Est GFR (Non-Af Amer) 15 Random Glucose 92 Calcium 8.9 Total Bilirubin 0.6 AST 22 ALT 38 Alkaline Phosphatase 111 Total Protein 6.9 Albumin 3.9 Globulin 3.0 Albumin/Globulin Ratio 1.3 05/26/17 05/26/17 05/26/17 04:14 09:07 09:43 WBC 13.8 H 17.2 H RBC 4.18 L 4.12 L Hgb 12.6 12.4 Hct 39.2 38.1 MCV 93.6 92.5 MCH 30.2 29.9 MCHC 32.2 L 32.4 L RDW 15.7 H 15.5 H Plt Count 35 L D 71 L D Manual Plt Count 73 L D MPV 7.2 6.7 L Neut % (Auto) 53.2 62.2 Lymph % (Auto) 29.6 23.4 [place] % (Auto) 12.6 H 10.7 H Eos % (Auto) 3.6 2.3 Baso % (Auto) 1.0 1.4 Neut # 7.4 H 10.7 H Lymph # 4.1 4.0 [place] # 1.7 H 1.8 H Eos # 0.5 0.4 Baso # 0.1 0.2 Differential Comment PT INR APTT Sodium Potassium Chloride Carbon Dioxide Anion Gap BUN Creatinine Est GFR ( Amer) Est GFR (Non-Af Amer) Random Glucose Calcium Total Bilirubin AST ALT Alkaline Phosphatase Total Protein Albumin Globulin Albumin/Globulin Ratio 05/26/17 20:06 WBC 17.6 H RBC 4.09 L Hgb 12.1 Hct 37.8 MCV 92.3 MCH 29.6 MCHC 32.0 L RDW 15.2 H Plt Count 61 L Manual Plt Count MPV 7.1 L Neut % (Auto) 79.0 H Lymph % (Auto) 14.6 L [place] % (Auto) 6.1 Eos % (Auto) 0.1 Baso % (Auto) 0.2 Neut # 13.9 H Lymph # 2.6 [place] # 1.1 H Eos # 0.0 Baso # 0.0 Differential Comment PT INR APTT Sodium Potassium Chloride Carbon Dioxide Anion Gap BUN Creatinine Est GFR ( Amer) Est GFR (Non-Af Amer) Random Glucose Calcium Total Bilirubin AST ALT Alkaline Phosphatase Total Protein Albumin Globulin Albumin/Globulin Ratio Assessment & Plan (1) Thrombocytopenia Assessment and Plan: secondary to aHUS transfuse 1 bag plt today and 1 prior to OR if plt < 50,000 Status: Acute (2) Leukocytosis Assessment and Plan: reactive Status: Acute (3) HUS (hemolytic uremic syndrome), atypical Assessment and Plan: outpatient treatment Thank you for this interesting consult. Status: Acute
--- NOTE | 2017-05-26 20:33 | CP.PCM.PN ---
Subjective - Date & Time of Evaluation Date of Evaluation: 05/26/17 Time of Evaluation: 19:00 - Subjective Subjective: Tolerated access placement; no hemostatic issues Objective - Vital Signs/Intake and Output Vital Signs (last 24 hours): Temp Pulse Resp BP Pulse Ox 98.2 F 61 20 105/67 97 05/26/17 16:00 05/26/17 16:00 05/26/17 16:00 05/26/17 16:00 05/26/17 16:00 - Medications Medications: Current Medications Acetaminophen (Tylenol 325mg Tab) 650 mg PO Q6 PRN PRN Reason: MILD PAIN Sodium Chloride (Sodium Chloride 0.9%) 1,000 mls @ 40 mls/hr IV .Q24H [facility] Lisinopril (Zestril) 5 mg PO DAILY [facility] Last Admin: 05/25/17 12:04 Dose: 5 mg Morphine Sulfate (Morphine) 1 mg IVP Q6H PRN PRN Reason: Pain, severe (8-10) Last Admin: 05/26/17 17:46 Dose: 1 mg Oxycodone/Acetaminophen (Percocet 5/325 Mg Tab) 1 tab PO Q6H PRN PRN Reason: Pain, moderate (4-7) Stop: 05/29/17 16:59 Pantoprazole Sodium (Protonix Ec Tab) 40 mg PO DAILY [facility] - Labs Labs: 05/26/17 20:06 05/26/17 04:14 PT 13.3 SECONDS (9.7-12.2) H 05/26/17 04:14 INR 1.2 05/26/17 04:14 APTT 33 SECONDS (21-34) 05/26/17 04:14 - Head Exam Head Exam: ATRAUMATIC - Eye Exam Eye Exam: Normal appearance - Respiratory Exam Respiratory Exam: NORMAL BREATHING PATTERN - Cardiovascular Exam Cardiovascular Exam: +S1, +S2 - GI/Abdominal Exam GI & Abdominal Exam: Normal Bowel Sounds - Extremities Exam Extremities Exam: Normal Inspection Assessment and Plan (1) Thrombocytopenia Assessment & Plan: improved with plt transfusion Status: Acute (2) Leukocytosis Assessment & Plan: reactive Status: Acute (3) HUS (hemolytic uremic syndrome), atypical Assessment & Plan: outpatient treatment Status: Acute
--- NOTE | 2017-05-27 00:24 | CARD ---
APPROVED REPORT EKG Measurement Heart [id number] AR [id number] [id number] <Conclusion> Sinus bradycardia Otherwise normal ECG
--- NOTE | 2017-05-27 07:48 | CP.PCM.PN ---
Subjective - Date & Time of Evaluation Date of Evaluation: 05/27/17 Time of Evaluation: 07:15 - Subjective Subjective: General sx progress note for Dr. Joel Rosario, PGY-1 Pt S & E at bedside. Pt reports no urine output since yesterday before surgery. Pt states that he usually makes a good amount of urine. Denies N/V/F/C, other problems. Objective - Vital Signs/Intake and Output Vital Signs (last 24 hours): Temp Pulse Resp BP Pulse Ox 98.4 F 77 20 102/61 95 05/26/17 23:05 05/26/17 23:05 05/26/17 23:05 05/26/17 23:05 05/26/17 23:05 Intake and Output: 05/27/17 05/27/17 06:59 18:59 Intake Total 240 Balance 240 - Medications Medications: Current Medications Acetaminophen (Tylenol 325mg Tab) 650 mg PO Q6 PRN PRN Reason: MILD PAIN Sodium Chloride (Sodium Chloride 0.9%) 1,000 mls @ 40 mls/hr IV .Q24H [facility] Lisinopril (Zestril) 5 mg PO DAILY [facility] Last Admin: 05/25/17 12:04 Dose: 5 mg Morphine Sulfate (Morphine) 1 mg IVP Q6H PRN PRN Reason: Pain, severe (8-10) Last Admin: 05/27/17 00:02 Dose: 1 mg Oxycodone/Acetaminophen (Percocet 5/325 Mg Tab) 1 tab PO Q6H PRN PRN Reason: Pain, moderate (4-7) Stop: 05/29/17 16:59 Last Admin: 05/26/17 20:49 Dose: 1 tab Pantoprazole Sodium (Protonix Ec Tab) 40 mg PO DAILY [facility] - Labs Labs: 05/26/17 20:06 05/26/17 04:14 PT 13.3 SECONDS (9.7-12.2) H 05/26/17 04:14 INR 1.2 05/26/17 04:14 APTT 33 SECONDS (21-34) 05/26/17 04:14 - Constitutional Appears: Non-toxic, No Acute Distress - Head Exam Head Exam: ATRAUMATIC, NORMAL INSPECTION, NORMOCEPHALIC - Eye Exam Eye Exam: EOMI, Normal appearance - ENT Exam ENT Exam: Mucous Membranes Moist, Normal Exam Additional comments: Pt w/left sided hearing aid - Neck Exam Neck Exam: Full ROM - Respiratory Exam Respiratory Exam: Clear to Ausculation Bilateral, NORMAL BREATHING PATTERN - Cardiovascular Exam Cardiovascular Exam: REGULAR RHYTHM, +S1, +S2 - GI/Abdominal Exam GI & Abdominal Exam: Soft, Normal Bowel Sounds. absent: Distended, Firm, Guarding, Tenderness Additional comments: Dressings in place- C/D/I - Extremities Exam Extremities Exam: absent: Pedal Edema - Neurological Exam Neurological Exam: Alert, Awake, Oriented x3 - Psychiatric Exam Psychiatric exam: Normal Affect, Normal Mood - Skin Skin Exam: Dry, Normal Color, Warm Assessment and Plan - Assessment and Plan (Free Text) Assessment: 31M w/ESRD on HD s/p laparoscopic peritoneal dialysis catheter placement POD#1, currently stable. No UOP since operation. Plan: -FU bladder scan -Cont pain mgmt as per primary team -Cont HD via permacath -Pt to be given peritoneal dialysis catheter instructions in Swedish prior to discharge -FU w/Dr. Quach in 10-14 days Will DW attending Marlene, PGY-1
[2017-05-27 08:47] LABS: EOS # 0.2 K/uL (0.0-0.7); HEMOGLOBIN 12.5 g/dL (12.0-18.0); MEAN CELL VOLUME 93.4 fL (80.0-94.0); MONO # 2.1 K/uL (0.0-0.8); NEUT # 10.3 K/uL (1.8-7.0); NRBC % 0.1 % (0.0-2.0); RED CELL DISTRIBUTION WIDTH 15.7 % (11.5-14.5)
[2017-05-27 08:53] LABS: BASO # 0.1 K/uL (0.0-0.2); BASO % 0.5 % (0.0-2.0); EOS % 1.1 % (0.0-4.0); LYMPH # 5.1 K/uL (1.0-4.3); LYMPH % 28.7 % (20.0-40.0); MEAN CORPUSCULAR HEMOGLOBIN 29.8 pg (27.0-31.0); MEAN CORPUSCULAR HGB CONC 31.9 g/dL (33.0-37.0); MEAN PLATELET VOLUME 6.9 fL (7.2-11.7); MONO % 11.8 % (0.0-10.0); NEUT % 57.9 % (50.0-75.0); RBC 4.2 Mil/uL (4.40-5.90); WHITE BLOOD COUNT 17.9 K/uL (4.8-10.8)
[2017-05-27 09:11] LABS: ALB/GLOB RATIO 1.4 (1.0-2.1)
[2017-05-27 09:12] LABS: CALCIUM 9.6 mg/dl (8.6-10.4)
--- NOTE | 2017-05-27 14:52 | CP.PCM.PN ---
Subjective - Date & Time of Evaluation Date of Evaluation: 05/27/17 Time of Evaluation: 14:49 - Subjective Subjective: Stable dialysis now- UF 1-1.5 kg BP stable PD cath in place- no discharges No new complaint Objective - Vital Signs/Intake and Output Vital Signs (last 24 hours): Temp Pulse Resp BP Pulse Ox 98.3 F 101 H 17 130/87 96 05/27/17 07:05 05/27/17 09:14 05/27/17 07:05 05/27/17 09:14 05/27/17 07:05 Intake and Output: 05/27/17 05/27/17 06:59 18:59 Intake Total 240 Output Total 1150 Balance 240 -1150 - Medications Medications: Current Medications Acetaminophen (Tylenol 325mg Tab) 650 mg PO Q6 PRN PRN Reason: MILD PAIN Sodium Chloride (Sodium Chloride 0.9%) 1,000 mls @ 40 mls/hr IV .Q24H [facility] Lisinopril (Zestril) 5 mg PO DAILY [facility] Last Admin: 05/27/17 10:25 Dose: Not Given Morphine Sulfate (Morphine) 1 mg IVP Q6H PRN PRN Reason: Pain, severe (8-10) Last Admin: 05/27/17 00:02 Dose: 1 mg Oxycodone/Acetaminophen (Percocet 5/325 Mg Tab) 1 tab PO Q6H PRN PRN Reason: Pain, moderate (4-7) Stop: 05/29/17 16:59 Last Admin: 05/26/17 20:49 Dose: 1 tab Pantoprazole Sodium (Protonix Ec Tab) 40 mg PO DAILY [facility] Last Admin: 05/27/17 10:40 Dose: 40 mg - Labs Labs: 05/27/17 08:34 05/27/17 08:34 PT 13.3 SECONDS (9.7-12.2) H 05/26/17 04:14 INR 1.2 05/26/17 04:14 APTT 33 SECONDS (21-34) 05/26/17 04:14 - Constitutional Appears: No Acute Distress, Chronically Ill - Head Exam Head Exam: ATRAUMATIC, NORMAL INSPECTION - Eye Exam Eye Exam: EOMI, Normal appearance - Neck Exam Neck Exam: Normal Inspection. absent: Tenderness - Respiratory Exam Respiratory Exam: Clear to Ausculation Bilateral, NORMAL BREATHING PATTERN - Cardiovascular Exam Cardiovascular Exam: REGULAR RHYTHM, +S1 - GI/Abdominal Exam GI & Abdominal Exam: Soft, Tenderness - Extremities Exam Extremities Exam: Normal Inspection. absent: Tenderness - Neurological Exam Neurological Exam: Alert, CN II-XII Intact - Skin Skin Exam: Dry, Warm Assessment and Plan (1) End stage renal disease Status: Acute (2) HUS (hemolytic uremic syndrome), atypical Status: Acute - Assessment and Plan (Free Text) Plan: Dialysis now Same PD meds Called outpt dialysis for training and PD cath flushes - can start 05/30
--- NOTE | 2017-05-27 16:38 | CP.PCM.PN ---
Subjective - Date & Time of Evaluation Date of Evaluation: 05/27/17 Time of Evaluation: 16:20 - Subjective Subjective: Hospitalist Progress Note (Patient was seen and examined at 4:20 PM 05/27/17 in HD) Patient is S/P Tenkhoff Catheter Placement on 05/26/17 Currently upon FULL ROS there are NO complaints other than: He was able to urinate after he was straight cathed earlier today. There is some pain in the Tenkhoff insertion site There is an occasional cough - Constitutional Appears: Well - Head Exam Head Exam: ATRAUMATIC, NORMAL INSPECTION, NORMOCEPHALIC - Eye Exam Eye Exam: EOMI, Normal appearance, PERRL - ENT Exam ENT Exam: Mucous Membranes Moist, Normal Exam - Neck Exam Neck Exam: Full ROM, Normal Inspection. absent: Lymphadenopathy - Respiratory Exam Respiratory Exam: Clear to Ausculation Bilateral, NORMAL BREATHING PATTERN - Cardiovascular Exam Cardiovascular Exam: REGULAR RHYTHM, RRR, +S1, +S2 - GI/Abdominal Exam GI & Abdominal Exam: Soft, Normal Bowel Sounds. absent: Tenderness Additional comments: no ecchymosis around surgical site - Extremities Exam Extremities Exam: Full ROM, Normal Capillary Refill, Normal Inspection. absent : Joint Swelling, Pedal Edema - Neurological Exam Neurological Exam: Alert, Awake, Oriented x3 - Psychiatric Exam Psychiatric exam: Normal Affect, Normal Mood - Skin Skin Exam: Dry, Intact, Normal Color, Warm The patient is stable for discharge. The following instructions should be explained to the patient prior to discharge : 1) Schedule follow up with vascular surgeon, Dr. Abdelrahman Quach, to take place in 10-14 days. Call his office at for an appointment. 2) Schedule a follow up appointment with [employer] Dist[employer] Operator, Dr. Nas Benites, to take place in 10-14 days. Call his office at for an appointment. 3) You will be provided with the following prescriptions: Lisinopril 5mg, 1 tablet by mouth once a day with breakfast, dispense 30, no refills. Clonidine 0.2mg, 1 tablet by mouth twice a day with breakfast and dinner, dispense 60, no refills. Promethazine DM: 6.25mg-15mg per 5mL, 5mL by mouth every 6 hours, as needed for cough, dispense 125mL, no refills. Percocet 5-325mg, 1 tablet by mouth every 8 hours, as needed for severe pain, dispense 30, no refills. 4) Please schedule follow up with your primary care physician at the [facility] clinic, located on floor B of [facility]. You may call [phone] for an appointment. 5) Please take care. Kyle Valle D.O. Objective - Vital Signs/Intake and Output Vital Signs (last 24 hours): Temp Pulse Resp BP Pulse Ox 97.1 F L 75 16 157/98 H 97 05/27/17 13:55 05/27/17 13:55 05/27/17 13:55 05/27/17 16:22 05/27/17 13:55 Intake and Output: 05/27/17 05/27/17 06:59 18:59 Intake Total 240 Output Total 1150 Balance 240 -1150 - Medications Medications: Current Medications Acetaminophen (Tylenol 325mg Tab) 650 mg PO Q6 PRN PRN Reason: MILD PAIN Sodium Chloride (Sodium Chloride 0.9%) 1,000 mls @ 40 mls/hr IV .Q24H [facility] Lisinopril (Zestril) 5 mg PO DAILY [facility] Last Admin: 05/27/17 16:11 Dose: 5 mg Morphine Sulfate (Morphine) 1 mg IVP Q6H PRN PRN Reason: Pain, severe (8-10) Last Admin: 05/27/17 00:02 Dose: 1 mg Oxycodone/Acetaminophen (Percocet 5/325 Mg Tab) 1 tab PO Q6H PRN PRN Reason: Pain, moderate (4-7) Stop: 05/29/17 16:59 Last Admin: 05/26/17 20:49 Dose: 1 tab Pantoprazole Sodium (Protonix Ec Tab) 40 mg PO DAILY [facility] Last Admin: 05/27/17 10:40 Dose: 40 mg - Labs Labs: 05/27/17 08:34 05/27/17 08:34 PT 13.3 SECONDS (9.7-12.2) H 05/26/17 04:14 INR 1.2 05/26/17 04:14 APTT 33 SECONDS (21-34) 05/26/17 04:14
--- NOTE | 2017-05-27 17:31 | CP.PCM.DIS ---
<Wes Matamoros - Last Filed: 05/27/17 18:34> Provider - Provider Date of Admission: 05/25/17 09:15 Attending physician: Kyle Valle MD Primary care physician: Dr Wilkins Consults: Dr Ashley Time Spent in preparation of Discharge (in minutes): 45 Diagnosis - Discharge Diagnosis (1) Complications, dialysis, catheter, mechanical Status: Resolved (2) Thrombocytopenia Status: Chronic (3) HUS (hemolytic uremic syndrome), atypical Status: Chronic (4) End stage renal disease Status: Chronic (5) Hypertension Status: Chronic (6) Elevated WBC count Status: Chronic (7) Prophylactic measure Status: Resolved Hospital Course - Lab Results Lab Results: Most Recent Lab Values WBC 17.9 K/uL (4.8-10.8) H 05/27/17 08:34 RBC 4.20 Mil/uL (4.40-5.90) L 05/27/17 08:34 Hgb 12.5 g/dL (12.0-18.0) 05/27/17 08:34 Hct 39.2 % (35.0-51.0) 05/27/17 08:34 MCV 93.4 fL (80.0-94.0) 05/27/17 08:34 MCH 29.8 pg (27.0-31.0) 05/27/17 08:34 MCHC 31.9 g/dL (33.0-37.0) L 05/27/17 08:34 RDW 15.7 % (11.5-14.5) H 05/27/17 08:34 Plt Count 53 K/uL (130-400) L 05/27/17 08:34 Manual Plt Count 73 K/uL (130-400) L D 05/26/17 09:43 MPV 6.9 fL (7.2-11.7) L 05/27/17 08:34 Neut % (Auto) 57.9 % (50.0-75.0) 05/27/17 08:34 Lymph % (Auto) 28.7 % (20.0-40.0) 05/27/17 08:34 Blount % (Auto) 11.8 % (0.0-10.0) H 05/27/17 08:34 Eos % (Auto) 1.1 % (0.0-4.0) 05/27/17 08:34 Baso % (Auto) 0.5 % (0.0-2.0) 05/27/17 08:34 Neut # 10.3 K/uL (1.8-7.0) H 05/27/17 08:34 Lymph # 5.1 K/uL (1.0-4.3) H 05/27/17 08:34 Blount # 2.1 K/uL (0.0-0.8) H 05/27/17 08:34 Eos # 0.2 K/uL (0.0-0.7) 05/27/17 08:34 Baso # 0.1 K/uL (0.0-0.2) 05/27/17 08:34 Differential Comment 05/27/17 08:34 PT 13.3 SECONDS (9.7-12.2) H 05/26/17 04:14 INR 1.2 05/26/17 04:14 APTT 33 SECONDS (21-34) 05/26/17 04:14 Sodium 140 mmol/L (132-148) 05/27/17 08:34 Potassium 4.0 mmol/L (3.6-5.2) 05/27/17 08:34 Chloride 98 mmol/L (98-107) 05/27/17 08:34 Carbon Dioxide 25 mmol/L (22-30) 05/27/17 08:34 Anion Gap 21 (10-20) H 05/27/17 08:34 BUN 29 mg/dL (9-20) H 05/27/17 08:34 Creatinine 6.0 MG/DL (0.8-1.5) H 05/27/17 08:34 Est GFR ( Amer) 13 05/27/17 08:34 Est GFR (Non-Af Amer) 11 05/27/17 08:34 POC Glucose (mg/dL) 89 mg/dL (65-110) 05/27/17 16:34 Random Glucose 96 mg/dL (75-110) 05/27/17 08:34 Calcium 9.6 mg/dl (8.6-10.4) 05/27/17 08:34 Total Bilirubin 0.7 mg/dL (0.2-1.3) 05/27/17 08:34 AST 17 U/L (17-59) D 05/27/17 08:34 ALT 28 U/L (21-72) 05/27/17 08:34 Alkaline Phosphatase 107 U/L (38-126) 05/27/17 08:34 Total Protein 7.0 g/dL (6.3-8.3) 05/27/17 08:34 Albumin 4.0 g/dL (3.5-5.0) 05/27/17 08:34 Globulin 3.0 gm/dL (2.2-3.9) 05/27/17 08:34 Albumin/Globulin Ratio 1.4 (1.0-2.1) 05/27/17 08:34 Urine Color Straw (YELLOW) 05/25/17 15:25 Urine Clarity Clear (Clear) 05/25/17 15:25 Urine pH 8.0 (5.0-8.0) 05/25/17 15:25 Ur Specific [place] 1.006 (1.003-1.030) 05/25/17 15:25 Urine Protein 1+ mg/dL (NEGATIVE) H 05/25/17 15:25 Urine Glucose (UA) Normal mg/dL (Normal) 05/25/17 15:25 Urine Ketones Negative mg/dL (NEGATIVE) 05/25/17 15:25 Urine Blood Negative (NEGATIVE) 05/25/17 15:25 Urine Nitrate Negative (NEGATIVE) 05/25/17 15:25 Urine Bilirubin Negative (NEGATIVE) 05/25/17 15:25 Urine Urobilinogen Normal mg/dL (0.2-1.0) 05/25/17 15:25 Ur Leukocyte Esterase Neg Amy/uL (Negative) 05/25/17 15:25 Urine RBC (Auto) < 1 /hpf (0-3) 05/25/17 15:25 Hep Bs Antigen Negative (NEGATIVE) 05/27/17 14:07 Blood Type O POSITIVE 05/25/17 09:20 Antibody Screen Negative 05/25/17 09:20 - Hospital Course Hospital Course: CC: palpitations during HD treatment Mr Mae is a 31 yo M with a PMHx of ESRD, thrombocytopenia, atypical hemolytic uremic syndrome, HTN who was referred to the ED for permacath replacement. His current permacath was placed in 03/2017 at which point he began hemodialysis on a tuesday//tuesday schedule. He states for the past 2 weeks each hemodialysis (HD) treatment results in an elevated heart rate and palpitations which last for about 1 hour after HD treatment completion. Associated symptoms include shortness of breath and headache. He denies any remitting factors. His last HD treatment was 05/25/17. He is currently asymptomatic. 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 A CXR was ordered which was normal. Patient had procedure for replacement of his right chest permacath with a peritoneal cath during his hospital stay. Prior to the procedure the patient's platelet count was 8 thus the patient was transfused 2 bags of platelets which improved his platelet count to 71. The patient had a uncomplicated peritoneal catheter placement procedure. Status post procedure the patient had pain at surgical site which was controlled with percocet. Status post procedure the patient had urinary retention, a bladder scan was ordered which showed retention of 1 L of urine. A straight cath was done and 1.15L of urine was obtained. Patient was medically stable at discharge. Discharge Exam - Head Exam Head Exam: ATRAUMATIC, NORMAL INSPECTION - Eye Exam Eye Exam: EOMI, Normal appearance, PERRL - ENT Exam ENT Exam: Mucous Membranes Moist - Neck Exam Neck exam: Full Rom - Respiratory Exam Respiratory Exam: NORMAL BREATHING PATTERN. absent: Wheezes - Cardiovascular Exam Cardiovascular Exam: REGULAR RHYTHM, RRR, +S1, +S2 - GI/Abdominal Exam GI & Abdominal Exam: Normal Bowel Sounds, Soft. absent: Tenderness Additional comments: tenderness at surgical site - Rectal Exam Rectal Exam: Deferred - Neurological Exam Neurological exam: Alert, Oriented x3 - Psychiatric Exam Psychiatric exam: Normal Affect, Normal Mood - Skin Skin Exam: Dry, Intact, Normal Color, Warm Discharge Plan - Discharge Medications Prescriptions: Clonidine HCl [Catapres] 0.2 mg PO BID #30 Lisinopril [Zestril] 5 mg PO DAILY #30 tab oxyCODONE/Acetaminophen [Percocet 5/325 mg Tab] 1 tab PO Q6H PRN #30 tab PRN Reason: Pain, Moderate (4-7) Tamsulosin [Flomax] 0.4 mg PO DAILY #30 cap - Follow Up Plan Condition: STABLE Disposition: HOME/ ROUTINE Additional Instructions: Pt to be given peritoneal dialysis catheter instructions in Greek prior to discharge. Patient to follow up with Dr. Quach in 10-14 days after discharge. Dressings are to stay in place until seen by Dr. Quach in the office. Keep clean and dry, dressings covered. Do not get wet while showering, please cover. <Kyle Valle - Last Filed: 05/27/17 18:57> Provider - Provider Date of Admission: 05/25/17 09:15 Attending physician: Kyle Valle MD Hospital Course - Lab Results Lab Results: Most Recent Lab Values WBC 17.9 K/uL (4.8-10.8) H 05/27/17 08:34 RBC 4.20 Mil/uL (4.40-5.90) L 05/27/17 08:34 Hgb 12.5 g/dL (12.0-18.0) 05/27/17 08:34 Hct 39.2 % (35.0-51.0) 05/27/17 08:34 MCV 93.4 fL (80.0-94.0) 05/27/17 08:34 MCH 29.8 pg (27.0-31.0) 05/27/17 08:34 MCHC 31.9 g/dL (33.0-37.0) L 05/27/17 08:34 RDW 15.7 % (11.5-14.5) H 05/27/17 08:34 Plt Count 53 K/uL (130-400) L 05/27/17 08:34 Manual Plt Count 73 K/uL (130-400) L D 05/26/17 09:43 MPV 6.9 fL (7.2-11.7) L 05/27/17 08:34 Neut % (Auto) 57.9 % (50.0-75.0) 05/27/17 08:34 Lymph % (Auto) 28.7 % (20.0-40.0) 05/27/17 08:34 Blount % (Auto) 11.8 % (0.0-10.0) H 05/27/17 08:34 Eos % (Auto) 1.1 % (0.0-4.0) 05/27/17 08:34 Baso % (Auto) 0.5 % (0.0-2.0) 05/27/17 08:34 Neut # 10.3 K/uL (1.8-7.0) H 05/27/17 08:34 Lymph # 5.1 K/uL (1.0-4.3) H 05/27/17 08:34 Blount # 2.1 K/uL (0.0-0.8) H 05/27/17 08:34 Eos # 0.2 K/uL (0.0-0.7) 05/27/17 08:34 Baso # 0.1 K/uL (0.0-0.2) 05/27/17 08:34 Differential Comment 05/27/17 08:34 PT 13.3 SECONDS (9.7-12.2) H 05/26/17 04:14 INR 1.2 05/26/17 04:14 APTT 33 SECONDS (21-34) 05/26/17 04:14 Sodium 140 mmol/L (132-148) 05/27/17 08:34 Potassium 4.0 mmol/L (3.6-5.2) 05/27/17 08:34 Chloride 98 mmol/L (98-107) 05/27/17 08:34 Carbon Dioxide 25 mmol/L (22-30) 05/27/17 08:34 Anion Gap 21 (10-20) H 05/27/17 08:34 BUN 29 mg/dL (9-20) H 05/27/17 08:34 Creatinine 6.0 MG/DL (0.8-1.5) H 05/27/17 08:34 Est GFR ( Amer) 13 05/27/17 08:34 Est GFR (Non-Af Amer) 11 05/27/17 08:34 POC Glucose (mg/dL) 89 mg/dL (65-110) 05/27/17 16:34 Random Glucose 96 mg/dL (75-110) 05/27/17 08:34 Calcium 9.6 mg/dl (8.6-10.4) 05/27/17 08:34 Total Bilirubin 0.7 mg/dL (0.2-1.3) 05/27/17 08:34 AST 17 U/L (17-59) D 05/27/17 08:34 ALT 28 U/L (21-72) 05/27/17 08:34 Alkaline Phosphatase 107 U/L (38-126) 05/27/17 08:34 Total Protein 7.0 g/dL (6.3-8.3) 05/27/17 08:34 Albumin 4.0 g/dL (3.5-5.0) 05/27/17 08:34 Globulin 3.0 gm/dL (2.2-3.9) 05/27/17 08:34 Albumin/Globulin Ratio 1.4 (1.0-2.1) 05/27/17 08:34 Urine Color Straw (YELLOW) 05/25/17 15:25 Urine Clarity Clear (Clear) 05/25/17 15:25 Urine pH 8.0 (5.0-8.0) 05/25/17 15:25 Ur Specific [place] 1.006 (1.003-1.030) 05/25/17 15:25 Urine Protein 1+ mg/dL (NEGATIVE) H 05/25/17 15:25 Urine Glucose (UA) Normal mg/dL (Normal) 05/25/17 15:25 Urine Ketones Negative mg/dL (NEGATIVE) 05/25/17 15:25 Urine Blood Negative (NEGATIVE) 05/25/17 15:25 Urine Nitrate Negative (NEGATIVE) 05/25/17 15:25 Urine Bilirubin Negative (NEGATIVE) 05/25/17 15:25 Urine Urobilinogen Normal mg/dL (0.2-1.0) 05/25/17 15:25 Ur Leukocyte Esterase Neg Amy/uL (Negative) 05/25/17 15:25 Urine RBC (Auto) < 1 /hpf (0-3) 05/25/17 15:25 Hep Bs Antigen Negative (NEGATIVE) 05/27/17 14:07 Blood Type O POSITIVE 05/25/17 09:20 Antibody Screen Negative 05/25/17 09:20 Attending/Attestation - Attestation I have personally seen and examined this patient.: Yes I have fully participated in the care of the patient.: Yes I have reviewed all pertinent clinical information, including history, physical exam and plan: Yes Notes (Text): 05/27/17 18:53 Patient was seen and examined. Discharge planning was thoroughly gone over with the Resident. Patient was given Flomax 0.4 mg x 1 dose and he was able to urinate 400 ml. Therefore additional Rx that he was sent home on was Flomax 0.4 mg PO 1 tab #30 NO refills. Kyle Valle D.O.
[2017-05-28 11:49] VITALS: BP 148/90
[2017-05-28 11:57] VITALS: PULSE 81; RESP 20; TEMP 98.9; O2SAT 96
--- NOTE | 2017-05-30 14:10 | OP ---
PREOPERATIVE DIAGNOSIS: Renal failure. POSTOPERATIVE DIAGNOSIS: Renal failure. PROCEDURE CARRIED OUT: Laparoscopic placement of Tenckhoff peritoneal dialysis catheter. SURGEON: Dr. Quach. INFANTRY SENIOR SERGEANT: *------*. ANESTHESIOLOGIST: *------*. The patient is a young man, who has a history of hemolytic uremic syndrome and chronic thrombocytopenia with a platelet count on admission of 8000, raised to 70,000 with the use of platelet transfusions. Prior to the operation different options particularly with regard to hemodialysis were discussed. Because of the risk of bleeding, percutaneous access via fistula or shunt were not recommended. The patient also had a history of previous splenectomy and a large incision extending across the midline, but beginning mostly in the left upper quadrant. OPERATIVE FINDINGS: Initially, we obtained an access through the Ve[place] needle in the right upper quadrant. We then were able to visualize the peritoneal cavity and there were not many adhesions particularly in the pelvis none. There may be a small right inguinal hernia, but this was not fully developed. Left side was normal. Photograph was taken. We then using the standard technique for placement of a peritoneal dialysis catheter tunneled in the right and left rectus sheath down into the peritoneal cavity. It was in good position. We then checked the flow, inflow and outflow and this was excellent. We then flushed the catheter with heparinized saline and closed the same with a subcuticular closure and Steri-Strips. No operative complications or problems. Her blood loss was less than 10 mL and the operation carried out was laparoscopic placement of Tenckhoff peritoneal dialysis catheter. Abdelrahman Quach Jr., MD CC: Dr. Villasenor
== END 2017-05-27 19:40 | disposition home or self-care (01) | DRG 120 ==
LOC: C.ER 08:14 → C.9E 09:15 → OBSVTOIN 09:15 → C.6T 11:07
PROVIDERS: ADMIT Family Medicine; ATTEND Family Medicine
PROC: 0WHG43Z Insertion of Infusion Device into Peritoneal Cavity, Percutaneous Endoscopic Approach (ICD-10-PCS; principal; 2017-05-26 07:45)
PROC: 30233R1 Transfusion of Nonautologous Platelets into Peripheral Vein, Percutaneous Approach (ICD-10-PCS; 2017-05-27)
PROC: 3E1M39Z Irrigation of Peritoneal Cavity using Dialysate, Percutaneous Approach (ICD-10-PCS; 2017-05-27)
DX: T82.49XA Other complication of vascular dialysis catheter, initial encounter (principal); D59.3 Hemolytic-uremic syndrome; N18.6 End stage renal disease; I12.0 Hypertensive chronic kidney disease with stage 5 chronic kidney disease or end stage renal disease; D69.6 Thrombocytopenia, unspecified; Y71.1 Therapeutic (nonsurgical) and rehabilitative cardiovascular devices associated with adverse incidents; D72.829 Elevated white blood cell count, unspecified; Z87.891 Personal history of nicotine dependence; Z99.2 Dependence on renal dialysis; R33.8 Other retention of urine

== ENCOUNTER 2017-05-28 03:58 | Inpatient (IN) | payer SELFPAY ==
[2017-05-28 03:58] VITALS: BMI 29.3
[2017-05-28 04:44] LABS: BASO # 0.1 K/uL (0.0-0.2); BASO % 0.9 % (0.0-2.0); EOS # 0.2 K/uL (0.0-0.7); EOS % 1.2 % (0.0-4.0); HEMOGLOBIN 12.7 g/dL (12.0-18.0); LYMPH # 3.5 K/uL (1.0-4.3); LYMPH % 22.4 % (20.0-40.0); MEAN CELL VOLUME 92.2 fL (80.0-94.0); MEAN CORPUSCULAR HEMOGLOBIN 29.9 pg (27.0-31.0); MEAN CORPUSCULAR HGB CONC 32.4 g/dL (33.0-37.0); MEAN PLATELET VOLUME 7.3 fL (7.2-11.7); MONO # 1.7 K/uL (0.0-0.8); MONO % 10.8 % (0.0-10.0); NEUT # 10.1 K/uL (1.8-7.0); NEUT % 64.7 % (50.0-75.0); RBC 4.25 Mil/uL (4.40-5.90); RED CELL DISTRIBUTION WIDTH 15.1 % (11.5-14.5); WHITE BLOOD COUNT 15.6 K/uL (4.8-10.8)
--- NOTE | 2017-05-28 04:53 | C.PDOC ---
History Of Present Illness A 31 y/o M with a Hx of dialysis, c/o abdominal pain that began midnight tonight.Pt has a peritoneal catheter placed for dialysis. Denies fever, chills, nausea, vomiting, diarrhea, chest pain, SOB, or any other complaints. Patient gave a history of abd pain. Hx of peritonel dialysis. Time Seen by Provider: 05/28/17 04:59 Chief Complaint (Nursing): Abdominal Pain History Per: Patient History/Exam Limitations: no limitations Onset/Duration Of Symptoms: Hrs Current Symptoms Are (Timing): Still Present Severity: Mild Radiation Of Pain To:: None Recent travel outside of the [place]: No Additional History Per: Patient Past Medical History Reviewed: Historical Data, Nursing Documentation, Vital Signs Vital Signs: Last Vital Signs Temp 97.7 F 05/28/17 04:09 Pulse 80 05/28/17 04:09 Resp 16 05/28/17 04:09 BP 108/75 05/28/17 04:09 Pulse Ox 96 05/28/17 06:49 - Medical History PMH: HTN, End Stage Renal Disease Denies: [facility] EXCISION OF LEFT KIDNEY, PERCUTANEOUS APPROACH, DIAGNOSTIC (09/28/16) EXTRACTION OF ILIAC BONE MARROW, PERC APPROACH, DIAGN (09/28/16) FLUOROSCOPY OF SUPERIOR VENA CAVA, GUIDANCE (03/15/17) INJECT/INFUSE NEC (12/01/14) INSERTION OF INFUSION DEV INTO SUP VENA CAVA, PERC APPROACH (03/15/17) OCCLUSION OF L RENAL ART WITH INTRALUM DEV, PERC APPROACH (09/28/16) PERFORMANCE OF URINARY FILTRATION, MULTIPLE (03/15/17) PHERESIS OF PLASMA, MULTIPLE (09/28/16) TRANSFUSE NONAUT FROZEN PLASMA IN PERIPH VEIN, PERC (09/28/16) TRANSFUSE NONAUT PLATELETS IN PERIPH VEIN, PERC (03/15/17) TRANSFUSE NONAUT RED BLOOD CELLS IN PERIPH VEIN, PERC (09/28/16) ULTRASONOGRAPHY OF LEFT KIDNEY (09/28/16) Family History: States: Unknown Family Hx - Social History Hx Alcohol Use: No Hx Substance Use: No - Immunization History Hx Tetanus Toxoid Vaccination: No Hx Influenza Vaccination: No Hx Pneumococcal Vaccination: No Review Of Systems Except As Marked, All Systems Reviewed And Found Negative. Constitutional: Negative for: Fever, Chills Cardiovascular: Negative for: Chest Pain Respiratory: Negative for: Shortness of Breath Gastrointestinal: Positive for: Abdominal Pain. Negative for: Nausea, Vomiting Physical Exam - Physical Exam Appears: Non-toxic, No Acute Distress Skin: Warm, Dry Head: Atraumatic, Normacephalic Eye(s): bilateral: Normal Inspection Cardiovascular: Rhythm Regular Respiratory: Normal Breath Sounds, No Accessory Muscle Use, No Rales, No Rhonchi , No Wheezing Gastrointestinal/Abdominal: Soft, Tenderness (Genralized tenderness more so to the upper quadrant), No Guarding, Other (Insertion site looks clean, with no signs of infection, no signs of discharge noted.) Neurological/Psych: Oriented x3, Normal Speech, Normal Cognition ED Course And Treatment - Laboratory Results Result Diagrams: 05/28/17 04:39 05/28/17 04:39 O2 Sat by Pulse Oximetry: 96 (RA) Pulse Ox Interpretation: Normal - CT Scan/US CT Abd/Pel w/o contrast Other Rad Studies (CT/US): Interpreted By Me, Read By Radiologist CT/US Interpretation: EXAM: CT Abdomen and Pelvis Without Intravenous Contrast. CLINICAL HISTORY: 31 years old, male; Pain; Abdominal pain; Prior surgery; Surgery type: Kidney; Patient HX: 10-27-16. faxed report; Additional info: Abd pain. TECHNIQUE: Axial computed tomography images of the abdomen and pelvis without intravenous contrast. This. CT exam was performed using one or more of the following dose reduction techniques: automated. exposure control , adjustment of the mA and/or kV according to patient size, and/or use of iterative. reconstruction technique. Coronal and sagittal reformatted images were created and reviewed. COMPARISON: No relevant prior studies available. FINDINGS: Lower thorax: Bibasilar consolidation. ABDOMEN: Liver: No acute findings. Gallbladder and bile ducts: No acute finding. No calcified stones. No intra-extrahepatic biliary ductal. dilation. Pancreas: Limited evaluation secondary to the lack of intravenous contrast. Spleen: Absent. Adrenals: No acute findings. Kidneys and ureters: No obstructing stones. No hydronephrosis. Cortical irregularity along the. anterior margin of the left kidney, with multiple coils in place. PELVIS: Bladder: No acute findings. Reproductive: No acute findings. Appendix: The appendix is not definitively visualized, however no pericecal inflammatory change is. identified to suggest the presence of acute appendicitis. ABDOMEN and PELVIS: Stomach and bowel: Multiple loops of distended small bowel are identified with trace mural. thickening and the left upper quadrant. No surrounding inflammation or fluid are identified to confirm. an acute enteritis. Peritoneum: A peritoneal dialysis catheter is coiled in the right lower quadrant. Lymph nodes: Limited evaluation without intravenous contrast. Vasculature: No aortic aneurysm. Bones: No acute fracture. IMPRESSION: Bibasilar consolidation. Postoperative change within the left kidney. Multiple loops of distended small bowel with trace mural thickening in the left upper quadrant, without. surrounding inflammation or fluid to confirm an acute enteritis. Medical Decision Making Medical Decision Making: Impression: A 31 y/o M with a Hx of dialysis, c/o abdominal pain that began midnight tonight. Plans: -CT Abd pel -Pepcid --IV fluids 05:25. On Re-evaluation, More tenderness to the epigastric and upper quadrant area. Mild tenderness to the the right lower quadrant area. No guarding. No rebound. Pain is more so with cough and dysuria. 06:30. Dr. Guaman contacted, pt will be admitted. Disposition Discussed With : Pola Guaman Doctor Will See Patient In The: Hospital Counseled Patient/Family Regarding: Diagnosis - Disposition Disposition: HOSPITALIZED Disposition Time: 06:48 Condition: STABLE - Clinical Impression Clinical Impression: Sudden onset of severe abdominal pain, ESRD (end stage renal disease) on dialysis - Scribe Statement The provider has reviewed the documentation as recorded by the Scribe Harleen banks All medical record entries made by the [place] were at my direction and personally dictated by me. I have reviewed the chart and agree that the record accurately reflects my personal performance of the history, physical exam, medical decision making, and the department course for this patient. I have also personally directed, reviewed, and agree with the discharge instructions and disposition.
[2017-05-28 05:05] LABS: ALBUMIN 4.2 g/dL (3.5-5.0)
[2017-05-28 05:08] LABS: ALB/GLOB RATIO 1.3 (1.0-2.1)
[2017-05-28 05:09] LABS: CALCIUM 9.7 mg/dl (8.6-10.4)
--- NOTE | 2017-05-28 06:13 | CT ---
EXAM: CT Abdomen and Pelvis Without Intravenous Contrast CLINICAL HISTORY: 31 years old, male; Pain; Abdominal pain; Prior surgery; Surgery type: Kidney; Patient HX: 10-27-16 faxed report; Additional info: Abd pain TECHNIQUE: Axial computed tomography images of the abdomen and pelvis without intravenous contrast. This CT exam was performed using one or more of the following dose reduction techniques: automated exposure control, adjustment of the mA and/or kV according to patient size, and/or use of iterative reconstruction technique. Coronal and sagittal reformatted images were created and reviewed. COMPARISON: No relevant prior studies available. FINDINGS: Lower thorax: Bibasilar consolidation. ABDOMEN: Liver: No acute findings Gallbladder and bile ducts: No acute finding. No calcified stones. No intra-extrahepatic biliary ductal dilation. Pancreas: Limited evaluation secondary to the lack of intravenous contrast. Spleen: Absent. Adrenals: No acute findings. Kidneys and ureters: No obstructing stones. No hydronephrosis. Cortical irregularity along the anterior margin of the left kidney, with multiple coils in place. PELVIS: Bladder: No acute findings. Reproductive: No acute findings. Appendix: The appendix is not definitively visualized, however no pericecal inflammatory change is identified to suggest the presence of acute appendicitis. ABDOMEN and PELVIS: Stomach and bowel: Multiple loops of distended small bowel are identified with trace mural thickening and the left upper quadrant. No surrounding inflammation or fluid are identified to confirm an acute enteritis. Peritoneum: A peritoneal dialysis catheter is coiled in the right lower quadrant. Lymph nodes: Limited evaluation without intravenous contrast. Vasculature: No aortic aneurysm. Bones: No acute fracture. IMPRESSION: Bibasilar consolidation. Postoperative change within the left kidney. Multiple loops of distended small bowel with trace mural thickening in the left upper quadrant, without surrounding inflammation or fluid to confirm an acute enteritis.
[2017-05-28 07:23] LABS: SQUAMOUS EPITHIAL < 1 /hpf (0-5); URINE BILIRUBIN NEGATIVE (NEGATIVE); URINE BLOOD NEGATIVE (NEGATIVE); URINE CLARITY Clear (Clear); URINE COLOR Yellow (YELLOW); URINE GLUCOSE (UA) NORMAL (Normal); URINE LEUKOCYTE ESTERASE NEG Leu/uL (Negative); URINE NITRATE NEGATIVE (NEGATIVE); URINE PROTEIN 2+ mg/dL (NEGATIVE); URINE UROBILINOGEN NORMAL mg/dL (0.2-1.0)
[2017-05-28] MEDS ORDERED: Promethazine DM 6.25 mg-15 mg/5 ml Syrup PO PRN (09:05)
[2017-05-28] MEDS ORDERED: Oxycodone/Acetaminophen 5/325 mg Tab PO PRN (09:15)
--- NOTE | 2017-05-28 09:36 | CP.PCM.HP ---
<Wes Matamoros Peter - Last Filed: 05/28/17 19:59> History of Present Illness - History of Present Illness History of Present Illness: CC: Abdominal Pain Mr Mae is a 31 yo M with a PMHx of ESRD on HD, thrombocytopenia, hemolytic uremic syndrome, HTN, left sided hearing loss, who had peritoneal dialysis catheter placement at [facility] on 05/26/2017 as right permacath was causing tachycardia during HD. He was discharged night of 05/27/2017 and returns today for upper abdominal pain. He states the pain began around midnight tonight with increasing intensity throughout the night. He also reports a non productive cough which exacerbates his abdominal pain. He states he was laying down and watching TV when the pain began. He did not take percocet because he could not get Rx filled as pharmacy was closed. He also reports a pressure like pain at the catheter insertion site of left abdomen. He denies fever, chills, diaphoresis and sputum production. 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 absent: Chills, Fever, Night Sweats - EENT Eyes: absent: Blurred Vision, Change in Vision Ears: Decreased Hearing. absent: Ear Pain Nose/Mouth/Throat: absent: Nasal Congestion Additional comments: left sided hearing loss - Cardiovascular Cardiovascular: Palpitations. absent: Chest Pain - Respiratory Respiratory: Cough, Pain with Coughing - Gastrointestinal Gastrointestinal: Abdominal Pain, Constipation. absent: Bloating - Genitourinary Genitourinary: Difficulty Urinating. absent: Dysuria - Musculoskeletal Musculoskeletal: absent: Back Pain, Myalgias - Integumentary Integumentary: absent: Bleeding Lesions - Neurological Neurological: absent: Behavioral Changes, Confusion, Dizziness - Psychiatric Psychiatric: absent: Behavioral Changes - Hematologic/Lymphatic Hematologic: absent: Easy Bleeding Past Patient History - Infectious Disease Hx of Infectious Diseases: None - Past Medical History & Family History Past Medical History?: Yes - Past Social History Smoking Status: Never Smoked - CARDIAC Hx Hypertension: Yes - PULMONARY Hx Respiratory Disorders: No - NEUROLOGICAL Hx Neurological Disorder: No - HEENT Hx Deafness: (uses hearing aide) Other/Comment: HEARING IMPAIRED - RENAL Hx Chronic Kidney Disease: No - ENDOCRINE/METABOLIC Hx Endocrine Disorders: No - HEMATOLOGICAL/ONCOLOGICAL Other/Comment: Thrombocytopenia - INTEGUMENTARY Hx Dermatological Problems: No - MUSCULOSKELETAL/RHEUMATOLOGICAL Hx Musculoskeletal Disorders: No - GASTROINTESTINAL Hx Gastrointestinal Disorders: No - GENITOURINARY/GYNECOLOGICAL Hx Genitourinary Disorders: No - PSYCHIATRIC Hx Substance Use: No - SURGICAL HISTORY Hx Surgeries: Yes Hx Splenectomy: Yes (AT 4 YEARS OF AGE) Other/Comment: peritoneal dialysis catheter 05/2017 - ANESTHESIA Hx Anesthesia: Yes Hx Anesthesia Reactions: No Hx Malignant Hyperthermia: No Meds Allergies/Adverse Reactions: Allergies Allergy/AdvReac Type Severity Reaction Status Date / Time aspirin AdvReac ANAPHYLAXIS Verified 05/28/17 04:16 Physical Exam - Constitutional Appears: Well, Non-toxic, No Acute Distress - Head Exam Head Exam: ATRAUMATIC, NORMAL INSPECTION, NORMOCEPHALIC - Eye Exam Eye Exam: EOMI, Normal appearance, PERRL - ENT Exam ENT Exam: Mucous Membranes Moist, Normal Exam Additional comments: left sided hearing loss - Neck Exam Neck exam: Positive for: Normal Inspection - Respiratory Exam Respiratory Exam: Decreased Breath Sounds, NORMAL BREATHING PATTERN. absent: Rales, Rhonchi, Wheezes Additional comments: decreased bibasilar breath sounds - Cardiovascular Exam Cardiovascular Exam: REGULAR RHYTHM, RRR, +S1, +S2 - GI/Abdominal Exam GI & Abdominal Exam: Normal Bowel Sounds, Soft. absent: Distended, Guarding, Hyperactive Bowel Sounds, Rebound Additional comments: gauze covering peritoneal catheter on left side of abdomen is clean/dry/intact - Rectal Exam Rectal Exam: Deferred - Extremities Exam Extremities exam: Positive for: normal capillary refill, normal inspection. Negative for: calf tenderness - Neurological Exam Neurological exam: Alert, Oriented x3 - Psychiatric Exam Psychiatric exam: Normal Affect, Normal Mood - Skin Skin Exam: Dry, Intact, Normal Color, Warm Results - Vital Signs Recent Vital Signs: Last Vital Signs Temp 97.7 F 05/28/17 04:09 Pulse 80 05/28/17 04:09 Resp 16 05/28/17 04:09 BP 108/75 05/28/17 04:09 Pulse Ox 96 05/28/17 06:57 - Labs Result Diagrams: 05/28/17 04:39 05/28/17 04:39 Labs: Laboratory Results - last 24 hr 05/28/17 07:17 Urine Color Yellow Urine Clarity Clear Urine pH 7.0 Ur Specific [place] 1.012 Urine Protein 2+ H Urine Glucose (UA) Normal Urine Ketones Negative Urine Blood Negative Urine Nitrate Negative Urine Bilirubin Negative Urine Urobilinogen Normal Ur Leukocyte Esterase Neg Urine WBC (Auto) 1 Urine RBC (Auto) < 1 Ur Squamous Epith Cells < 1 Assessment & Plan (1) Pneumonia Assessment and Plan: 05/28: CT abd/pelvis -> Bibasilar consolidation. Postoperative change within the left kidney. Multiple loops of distended small bowel with trace mural thickening in the left upper quadrant, without surrounding inflammation or fluid to confirm an acute enteritis. 05/28: This pneumonia would be considered hospital associated pneumonia because the patient was admitted to hospital here for > 48 hours. He is also at risk for multi-drug resistant organisms because of his asplenia - therefore we'll start anti-pseudomonal fluoroquinolone (cipro) and anti-pseudomonal beta-lactam (zosyn) and vancomycin. 05/28: zosyn 2.25g iv q6 (calcaulated Cr clearance is 35), ciprofloxacin 400mg iv q12, vancomycin 1.2g iv q24 (based on 15mg/kg because of renal impairment) 05/28: blood Cx x2, urine Cx, vancomycin trough 05/28: ID consulted, Dr Gilmore. Will follow her recommendations. Status: Acute (2) Dilated bowel Assessment and Plan: 05/28: possible 2/2 to anesthetic used during peritoneal dialysis catheter. surgery consulted, Dr Quach aware. culture of peritoneal fluid not needed at this time. Status: Acute (3) ESRD on hemodialysis Assessment and Plan: 05/28: Nephrology consulted, Dr Villasenor. Follow up recommendations. s/p peritoneal dialysis catheter insertion on 05/26/17. percocet 5/325mg po q6 prn for med-severe pain. Status: Acute (4) Urinary retention Assessment and Plan: 05/28: s/p peritoneal dialysis cather placement. flomax 0.4mg po once a day. Status: Acute (5) Hemolytic uremic syndrome Assessment and Plan: 05/28: platelets stable. consult heme/onc Dr Benites if needed. Status: Acute (6) Hypertension Assessment and Plan: 05/28: clondidine 0.2mg po bid. lisinopril 5mg po daily. Status: Chronic (7) Prophylactic measure Assessment and Plan: protonix 40mg po daily florastor 250mg po bid scd's b/l thrombocytopenic - no anticoagulation needed Status: Resolved <Kyle Valle - Last Filed: 05/28/17 21:00> Results - Vital Signs Recent Vital Signs: Last Vital Signs Temp 98.1 F 05/28/17 15:10 Pulse 78 05/28/17 15:10 Resp 20 05/28/17 15:10 BP 95/60 L 05/28/17 15:10 Pulse Ox 96 05/28/17 15:10 - Labs Result Diagrams: 05/28/17 04:39 05/28/17 04:39 Labs: Laboratory Results - last 24 hr 05/28/17 05/28/17 05/28/17 07:17 11:50 12:22 Urine Color Yellow Urine Clarity Clear Urine pH 7.0 Ur Specific [place] 1.012 Urine Protein 2+ H Urine Glucose (UA) Normal Urine Ketones Negative Urine Blood Negative Urine Nitrate Negative Urine Bilirubin Negative Urine Urobilinogen Normal Ur Leukocyte Esterase Neg Urine WBC (Auto) 1 Urine RBC (Auto) < 1 Ur Squamous Epith Cells < 1 Influenza Typ A,B (EIA) Negative for flu a/b Ur L.pneumophila Ag Negative Attending/Attestation - Attestation I have personally seen and examined this patient.: Yes I have fully participated in the care of the patient.: Yes I have reviewed all pertinent clinical information: Yes Notes (Text): 05/28/17 20:59 Patient was seen and examined with Resident. History, Physical, Assessment and Plan were thoroughly gone over with the Resident. Kyle Valle D.O.
[2017-05-28] MEDS ORDERED: Vancomycin 500 mg Inj IVPB SCH (10:00)
--- NOTE | 2017-05-28 10:05 | CP.PCM.CON ---
History of Present Illness - History of Present Illness History of Present Illness: Surgery: Dr. Quach HPI: Patient is a 31 y/o male who underwent PD catherter insertion 2 days prior. Patient currently admitted and being treated for HCAP. Patient presented to ED for nonproductive cough. Patient denies any pain to abdomen, denies CP or SOb. Patient still with permcath in which patient receives HD through. Review of Systems - Review of Systems All systems: reviewed and no additional remarkable complaints except Review of Systems: unless stated in HPI, see H&P Past Patient History - Infectious Disease Hx of Infectious Diseases: None - Past Medical History & Family History Past Medical History?: Yes - Past Social History Smoking Status: Never Smoked - CARDIAC Hx Hypertension: Yes - PULMONARY Hx Respiratory Disorders: No - NEUROLOGICAL Hx Neurological Disorder: No - HEENT Hx Deafness: (uses hearing aide) Other/Comment: HEARING IMPAIRED - RENAL Hx Chronic Kidney Disease: No - ENDOCRINE/METABOLIC Hx Endocrine Disorders: No - HEMATOLOGICAL/ONCOLOGICAL Other/Comment: Thrombocytopenia - INTEGUMENTARY Hx Dermatological Problems: No - MUSCULOSKELETAL/RHEUMATOLOGICAL Hx Musculoskeletal Disorders: No - GASTROINTESTINAL Hx Gastrointestinal Disorders: No - GENITOURINARY/GYNECOLOGICAL Hx Genitourinary Disorders: No - PSYCHIATRIC Hx Substance Use: No - SURGICAL HISTORY Hx Surgeries: Yes Hx Splenectomy: Yes (AT 4 YEARS OF AGE) Other/Comment: peritoneal dialysis catheter 05/2017 - ANESTHESIA Hx Anesthesia: Yes Hx Anesthesia Reactions: No Hx Malignant Hyperthermia: No Meds Allergies/Adverse Reactions: Allergies Allergy/AdvReac Type Severity Reaction Status Date / Time aspirin AdvReac ANAPHYLAXIS Verified 05/28/17 04:16 - Medications Medications: Current Medications Clonidine HCl (Catapres) 0.2 mg PO BID [facility] Docusate Sodium (Colace) 100 mg PO TID [facility] Ciprofloxacin (Cipro 400mg/200ml Dsw) 400 mg in 200 mls @ 200 mls/hr IVPB Q12H [facility] Piperacillin Sod/Tazobactam (Sod 2.25 gm/ Sodium Chloride) 100 mls @ 200 mls/ hr IVPB Q6H [facility] Vancomycin HCl 1,200 mg/ (Sodium Chloride) 250 mls @ 250 mls/hr IVPB DAILY@ 1200 [facility] Lisinopril (Zestril) 5 mg PO DAILY [facility] Oxycodone/Acetaminophen (Percocet 5/325 Mg Tab) 1 tab PO Q6H PRN PRN Reason: Pain, severe (8-10) Stop: 05/31/17 09:16 Pantoprazole Sodium (Protonix Ec Tab) 40 mg PO DAILY [facility] Promethazine HCl/Dextromethorphan (Phenergan Dm Syrup) 5 ml PO Q6H PRN PRN Reason: Cough Saccharomyces Boulardii (Florastor) 250 mg PO BID [facility] Tamsulosin HCl (Flomax) 0.4 mg PO DAILY [facility] Physical Exam - Constitutional Appears: Non-toxic, No Acute Distress - Head Exam Head Exam: ATRAUMATIC, NORMOCEPHALIC - Eye Exam Eye Exam: EOMI, Normal appearance - ENT Exam ENT Exam: Mucous Membranes Moist - Respiratory Exam Respiratory Exam: NORMAL BREATHING PATTERN. absent: Respiratory Distress - Cardiovascular Exam Cardiovascular Exam: REGULAR RHYTHM. absent: Tachycardia - GI/Abdominal Exam GI & Abdominal Exam: Soft. absent: Distended, Tenderness Additional comments: dressing over PD catheter CDI Results - Vital Signs Recent Vital Signs: Last Vital Signs Temp 98.1 F 05/28/17 09:57 Pulse 105 H 05/28/17 09:57 Resp 20 05/28/17 09:57 BP 128/81 05/28/17 09:57 Pulse Ox 97 05/28/17 09:57 - Labs Result Diagrams: 05/28/17 04:39 05/28/17 04:39 Labs: Laboratory Results - last 24 hr 05/28/17 07:17 Urine Color Yellow Urine Clarity Clear Urine pH 7.0 Ur Specific [place] 1.012 Urine Protein 2+ H Urine Glucose (UA) Normal Urine Ketones Negative Urine Blood Negative Urine Nitrate Negative Urine Bilirubin Negative Urine Urobilinogen Normal Ur Leukocyte Esterase Neg Urine WBC (Auto) 1 Urine RBC (Auto) < 1 Ur Squamous Epith Cells < 1 Assessment & Plan - Assessment and Plan (Free Text) Assessment: 31 y/o male s/p PD catheter insertion POD2 admitted for HCAP Plan: -no surgical intervention at this time -PD catheter dressing/tubing not to be touched/changed/or flushed for at least 10 days or until cleared by Dr. Quach -HD will continue through permacat -medical managment per primary team -d/w Dr. Quach [facility] PGY3
[2017-05-28] MEDS: Saccharomyces Boulardi 250 mg Cap PO SCH ×2 (10:06→17:32)
[2017-05-28] MEDS: Pantoprazole 40 mg EC Tab PO SCH (10:06)
[2017-05-28] MEDS: Piperacillin/Tazobact 2.25 GM in Sodium Chloride 100 ML IVPB SCH ×3 (10:25→21:34)
--- NOTE | 2017-05-28 11:25 | RAD ---
HISTORY: consolidation-bibasilar on Abd CT COMPARISON: Comparison is made to 05/25/2017 TECHNIQUE: Chest PA and lateral FINDINGS: LUNGS: Bibasilar opacities are seen may represent atelectasis. PLEURA: No significant pleural effusion identified. No pneumothorax apparent. CARDIOVASCULAR: Normal. OSSEOUS STRUCTURES: No significant abnormalities. VISUALIZED UPPER ABDOMEN: Normal. OTHER FINDINGS: Right-sided hemodialysis catheter seen in place. IMPRESSION: Bibasilar opacities may represent atelectasis.
[2017-05-28] MEDS: Ciprofloxacin 400mg/200ml D5W 400 MG/200 ML BAG IVPB SCH ×2 (11:29→23:10)
--- NOTE | 2017-05-28 11:52 | CP.PCM.CON ---
History of Present Illness - History of Present Illness History of Present Illness: Mr Mae is a 31 yo M with a PMHx of ESRD on HD, thrombocytopenia, hemolytic uremic syndrome, HTN, left sided hearing loss, who had peritoneal dialysis catheter placement at [facility] on 05/26/2017 as right permacath was causing tachycardia during HD. He was discharged night of 05/27/2017 and returns today for upper abdominal pain. He states the pain began around midnight tonight with increasing intensity throughout the night. He also reports a non productive cough which exacerbates his abdominal pain. He states he was laying down and watching TV when the pain began. He did not take percocet because he could not get Rx filled as pharmacy was closed. He also reports a pressure like pain at the catheter insertion site of left abdomen. He denies fever, chills, diaphoresis and sputum production. Last HD on Tuesday. Ct scan of abdomen with ? dilated loops of bowel. PD catheter is right lower quadrant. Pt tolerated food this am. No vomiting or diarrhea. No fever or chills. Review of Systems - Constitutional Constitutional: absent: Chills, Fever - EENT Eyes: absent: Blind Spots, Blurred Vision Ears: Decreased Hearing Nose/Mouth/Throat: absent: Epistaxis, Nasal Congestion - Cardiovascular Cardiovascular: absent: Chest Pain, Dyspnea on Exertion - Respiratory Respiratory: Cough. absent: Hemoptysis - Gastrointestinal Gastrointestinal: Abdominal Pain. absent: Diarrhea - Musculoskeletal Musculoskeletal: absent: Abnormal Gait, Arthralgias - Neurological Neurological: Abnormal Hearing. absent: Headaches - Psychiatric Psychiatric: absent: Anxiety, Hallucinations - Hematologic/Lymphatic Hematologic: Easy Bleeding, Easy Bruising Past Patient History - Infectious Disease Hx of Infectious Diseases: None - Past Medical History & Family History Past Medical History?: Yes - Past Social History Smoking Status: Never Smoked - CARDIAC Hx Hypertension: Yes - PULMONARY Hx Respiratory Disorders: No - NEUROLOGICAL Hx Neurological Disorder: No - HEENT Hx Deafness: (uses hearing aide) Other/Comment: HEARING IMPAIRED - RENAL Hx Chronic Kidney Disease: No - ENDOCRINE/METABOLIC Hx Endocrine Disorders: No - HEMATOLOGICAL/ONCOLOGICAL Other/Comment: Thrombocytopenia - INTEGUMENTARY Hx Dermatological Problems: No - MUSCULOSKELETAL/RHEUMATOLOGICAL Hx Musculoskeletal Disorders: No - GASTROINTESTINAL Hx Gastrointestinal Disorders: No - GENITOURINARY/GYNECOLOGICAL Hx Genitourinary Disorders: No - PSYCHIATRIC Hx Substance Use: No - SURGICAL HISTORY Hx Surgeries: Yes Hx Splenectomy: Yes (AT 4 YEARS OF AGE) Other/Comment: peritoneal dialysis catheter 05/2017 - ANESTHESIA Hx Anesthesia: Yes Hx Anesthesia Reactions: No Hx Malignant Hyperthermia: No Meds Allergies/Adverse Reactions: Allergies Allergy/AdvReac Type Severity Reaction Status Date / Time aspirin AdvReac ANAPHYLAXIS Verified 05/28/17 04:16 - Medications Medications: Current Medications Clonidine HCl (Catapres) 0.2 mg PO BID [facility] Last Admin: 05/28/17 10:06 Dose: 0.2 mg Docusate Sodium (Colace) 100 mg PO TID [facility] Last Admin: 05/28/17 10:06 Dose: 100 mg Ciprofloxacin (Cipro 400mg/200ml Dsw) 400 mg in 200 mls @ 200 mls/hr IVPB Q12H [facility] Last Admin: 05/28/17 11:29 Dose: 200 mls/hr Piperacillin Sod/Tazobactam (Sod 2.25 gm/ Sodium Chloride) 100 mls @ 200 mls/ hr IVPB Q6H [facility] Last Admin: 05/28/17 10:25 Dose: 200 mls/hr Vancomycin HCl 1,200 mg/ (Sodium Chloride) 250 mls @ 250 mls/hr IVPB DAILY@ 1300 [facility] Lisinopril (Zestril) 5 mg PO DAILY [facility] Last Admin: 05/28/17 10:06 Dose: 5 mg Oxycodone/Acetaminophen (Percocet 5/325 Mg Tab) 1 tab PO Q6H PRN PRN Reason: Pain, severe (8-10) Stop: 05/31/17 09:16 Pantoprazole Sodium (Protonix Ec Tab) 40 mg PO DAILY [facility] Last Admin: 05/28/17 10:06 Dose: 40 mg Promethazine HCl/Dextromethorphan (Phenergan Dm Syrup) 5 ml PO Q6H PRN PRN Reason: Cough Saccharomyces Boulardii (Florastor) 250 mg PO BID [facility] Last Admin: 05/28/17 10:06 Dose: 250 mg Tamsulosin HCl (Flomax) 0.4 mg PO DAILY [facility] Last Admin: 05/28/17 10:06 Dose: 0.4 mg Physical Exam - Constitutional Appears: Non-toxic - Head Exam Head Exam: ATRAUMATIC, NORMAL INSPECTION - Eye Exam Eye Exam: EOMI - ENT Exam ENT Exam: Mucous Membranes Moist - Neck Exam Neck exam: Positive for: Full Rom. Negative for: Lymphadenopathy - Respiratory Exam Respiratory Exam: NORMAL BREATHING PATTERN. absent: Accessory Muscle Use - Cardiovascular Exam Cardiovascular Exam: REGULAR RHYTHM. absent: Rubs - GI/Abdominal Exam GI & Abdominal Exam: Distended, Normal Bowel Sounds, Tenderness. absent: Guarding - Extremities Exam Extremities exam: Negative for: pedal edema - Neurological Exam Neurological exam: Alert, Oriented x3 Results - Vital Signs Recent Vital Signs: Last Vital Signs Temp 98.1 F 05/28/17 09:57 Pulse 105 H 05/28/17 09:57 Resp 20 05/28/17 09:57 BP 128/81 05/28/17 09:57 Pulse Ox 97 05/28/17 09:57 - Labs Result Diagrams: 05/28/17 04:39 05/28/17 04:39 Labs: Laboratory Results - last 24 hr 05/28/17 07:17 Urine Color Yellow Urine Clarity Clear Urine pH 7.0 Ur Specific [place] 1.012 Urine Protein 2+ H Urine Glucose (UA) Normal Urine Ketones Negative Urine Blood Negative Urine Nitrate Negative Urine Bilirubin Negative Urine Urobilinogen Normal Ur Leukocyte Esterase Neg Urine WBC (Auto) 1 Urine RBC (Auto) < 1 Ur Squamous Epith Cells < 1 Assessment & Plan - Assessment and Plan (Free Text) Assessment: esrd due to HUS decreased hearing recent PD catheter 05/26 remains on HD until catheter healed ( usually 2 weeks) abdominal pain, improving, normal CT scan of abdomen ? post surgical tenderness HD on Tuesday if here surgery to follow up
[2017-05-28] MEDS ORDERED: guaiFENesin DM 100 mg-10 mg/5 ml UD PO PRN (12:15)
[2017-05-28] MEDS: Sodium Chloride 0.9% 1,000 ML IV SCH (19:52)
[2017-05-29] MEDS: Sodium Chloride 0.9% 1,000 ML IV SCH ×3 (05:46→16:57)
[2017-05-29] MEDS: Piperacillin/Tazobact 2.25 GM in Sodium Chloride 100 ML IVPB SCH ×4 (05:54→21:13)
[2017-05-29 08:04] LABS: BASO # 0.1 K/uL (0.0-0.2); EOS # 0.8 K/uL (0.0-0.7); EOS % 7.8 % (0.0-4.0); HEMOGLOBIN 11.6 g/dL (12.0-18.0); LYMPH # 3.1 K/uL (1.0-4.3); LYMPH % 29.5 % (20.0-40.0); MEAN CELL VOLUME 93.4 fL (80.0-94.0); MEAN CORPUSCULAR HEMOGLOBIN 30.1 pg (27.0-31.0); MEAN CORPUSCULAR HGB CONC 32.2 g/dL (33.0-37.0); MEAN PLATELET VOLUME 6.7 fL (7.2-11.7); MONO # 1.8 K/uL (0.0-0.8); MONO % 16.8 % (0.0-10.0); NEUT # 4.7 K/uL (1.8-7.0); NEUT % 44.9 % (50.0-75.0); RBC 3.87 Mil/uL (4.40-5.90); RED CELL DISTRIBUTION WIDTH 15.2 % (11.5-14.5); WHITE BLOOD COUNT 10.5 K/uL (4.8-10.8)
[2017-05-29 08:24] LABS: CALCIUM 9.5 mg/dl (8.6-10.4)
--- NOTE | 2017-05-29 09:29 | CP.PCM.PN ---
<Wes Matamoros R - Last Filed: 05/29/17 15:18> Subjective - Date & Time of Evaluation Date of Evaluation: 05/29/17 Time of Evaluation: 10:00 - Subjective Subjective: Patient was seen and examined at bedside. Nurse Susan was present for translation. Patient stated he still had abdominal pain in the epigastric area which was improved from yesterday. He also complained of a squeezing sensation near the peritoneal cath insertion site but said he was not bothered by it. The patient understood that the peritoneal cath will not be used for at least 10 more days as it's still healing. He had no other complaints. He denied urinary retention, chest pain, cough, fever, chills, bleeding. Objective - Vital Signs/Intake and Output Vital Signs (last 24 hours): Temp Pulse Resp BP Pulse Ox 97.5 F L 62 17 112/73 96 05/29/17 07:10 05/29/17 07:10 05/29/17 07:10 05/29/17 07:10 05/29/17 07:10 - Medications Medications: Current Medications Clonidine HCl (Catapres) 0.2 mg PO BID [facility] Docusate Sodium (Colace) 100 mg PO TID [facility] Last Admin: 05/28/17 17:32 Dose: 100 mg Guaifenesin/Dextromethorphan (Robitussin Dm) 5 ml PO Q6H PRN PRN Reason: Cough Ciprofloxacin (Cipro 400mg/200ml Dsw) 400 mg in 200 mls @ 200 mls/hr IVPB Q12H [facility] Last Admin: 05/28/17 23:10 Dose: 200 mls/hr Piperacillin Sod/Tazobactam (Sod 2.25 gm/ Sodium Chloride) 100 mls @ 200 mls/ hr IVPB Q6H [facility] Last Admin: 05/29/17 05:54 Dose: 200 mls/hr Vancomycin HCl 1,200 mg/ (Sodium Chloride) 250 mls @ 250 mls/hr IVPB DAILY@ 1300 [facility] Last Admin: 05/28/17 13:32 Dose: 250 mls/hr Sodium Chloride (Sodium Chloride 0.9%) 1,000 mls @ 100 mls/hr IV .Q10H [facility] Last Admin: 05/29/17 05:46 Dose: Not Given Lisinopril (Zestril) 5 mg PO DAILY [facility] Last Admin: 05/28/17 10:06 Dose: 5 mg Oxycodone/Acetaminophen (Percocet 5/325 Mg Tab) 1 tab PO Q6H PRN PRN Reason: Pain, severe (8-10) Stop: 05/31/17 09:16 Pantoprazole Sodium (Protonix Ec Tab) 40 mg PO DAILY [facility] Last Admin: 05/28/17 10:06 Dose: 40 mg Saccharomyces Boulardii (Florastor) 250 mg PO BID [facility] Last Admin: 05/28/17 17:32 Dose: 250 mg Tamsulosin HCl (Flomax) 0.4 mg PO DAILY [facility] Last Admin: 05/28/17 10:06 Dose: 0.4 mg - Labs Labs: 05/29/17 07:59 05/29/17 07:59 - Constitutional Appears: Well - Head Exam Head Exam: ATRAUMATIC, NORMAL INSPECTION, NORMOCEPHALIC - Eye Exam Eye Exam: EOMI, Normal appearance, PERRL - ENT Exam ENT Exam: Mucous Membranes Moist, Normal Exam Additional comments: left sided hearing loss, wears hearing aid - Neck Exam Neck Exam: Full ROM, Normal Inspection. absent: Lymphadenopathy - Respiratory Exam Respiratory Exam: Decreased Breath Sounds, Clear to Ausculation Bilateral, NORMAL BREATHING PATTERN Additional comments: decreased bibasilar breath sounds - Cardiovascular Exam Cardiovascular Exam: REGULAR RHYTHM, +S1, +S2. absent: Murmur - GI/Abdominal Exam GI & Abdominal Exam: Soft, Normal Bowel Sounds. absent: Tenderness Additional comments: gauze covering peritoneal catheter insertion site on left side of abdomen is clean/dry/intact - Rectal Exam Rectal Exam: Deferred - Extremities Exam Extremities Exam: Full ROM, Normal Capillary Refill, Normal Inspection. absent : Joint Swelling, Pedal Edema - Neurological Exam Neurological Exam: Alert, Awake, Oriented x3 - Psychiatric Exam Psychiatric exam: Normal Affect, Normal Mood - Skin Skin Exam: Dry, Intact, Normal Color, Warm Assessment and Plan (1) Pneumonia Status: Acute (2) Dilated bowel Status: Acute (3) ESRD on hemodialysis Status: Acute (4) Urinary retention Status: Acute (5) Hemolytic uremic syndrome Status: Acute (6) Hypertension Status: Chronic (7) Prophylactic measure Status: Resolved - Assessment and Plan (Free Text) Assessment: Assessment & Plan (1) Pneumonia Assessment and Plan: 05/29: wbc wnl, afebrile. Neg for flu a/b, neg for legionella 05/28: CT abd/pelvis -> Bibasilar consolidation. Postoperative change within the left kidney. Multiple loops of distended small bowel with trace mural thickening in the left upper quadrant, without surrounding inflammation or fluid to confirm an acute enteritis. 05/28: This pneumonia would be considered hospital associated pneumonia because the patient was admitted to hospital here for > 48 hours. He is also at risk for multi-drug resistant organisms because of his asplenia - therefore we'll start anti-pseudomonal fluoroquinolone (cipro) and anti-pseudomonal beta-lactam (zosyn) and vancomycin. 05/28: zosyn 2.25g iv q6 (calcaulated Cr clearance is 35), ciprofloxacin 400mg iv q12, vancomycin 1.2g iv q24 (based on 15mg/kg because of renal impairment) 05/28: blood Cx x2, urine Cx, vancomycin trough 05/28: ID consulted, Dr Gilmore. Will follow her recommendations. Status: Acute (2) Dilated bowel Assessment and Plan: 05/28: possible 2/2 to anesthetic used during peritoneal dialysis catheter. surgery consulted, Dr Quach aware. culture of peritoneal fluid not needed at this time. Status: Acute (3) ESRD on hemodialysis Assessment and Plan: 05/28: Nephrology consulted, Dr Villasenor. Follow up recommendations. s/p peritoneal dialysis catheter insertion on 05/26/17. percocet 5/325mg po q6 prn for med-severe pain. Status: Acute (4) Urinary retention Assessment and Plan: 05/28: s/p peritoneal dialysis cather placement. flomax 0.4mg po once a day. Status: Acute (5) Hemolytic uremic syndrome Assessment and Plan: 05/29: voicemail left for Dr Benites regarding patients platelet level of 26 today. will continue to monitor. 05/28: platelets stable. consult heme/onc Dr Benites if needed. Status: Acute (6) Hypertension Assessment and Plan: 05/28: clondidine 0.2mg po bid. lisinopril 5mg po daily. Status: Chronic (7) Prophylactic measure Assessment and Plan: protonix 40mg po daily florastor 250mg po bid scd's b/l thrombocytopenic - no anticoagulation needed Status: Resolved <Valle,Kyle J - Last Filed: 05/29/17 21:53> Objective - Vital Signs/Intake and Output Vital Signs (last 24 hours): Temp Pulse Resp BP Pulse Ox 98 F 58 L 20 121/79 98 05/29/17 15:55 05/29/17 15:55 05/29/17 15:55 05/29/17 15:55 05/29/17 15:55 - Medications Medications: Current Medications Clonidine HCl (Catapres) 0.2 mg PO BID [facility] Last Admin: 05/29/17 17:32 Dose: Not Given Docusate Sodium (Colace) 100 mg PO TID [facility] Last Admin: 05/29/17 17:32 Dose: 100 mg Guaifenesin/Dextromethorphan (Robitussin Dm) 5 ml PO Q6H PRN PRN Reason: Cough Last Admin: 05/29/17 17:32 Dose: 5 ml Vancomycin HCl 1,200 mg/ (Sodium Chloride) 250 mls @ 250 mls/hr IVPB DAILY@ 1300 [facility] Last Admin: 05/29/17 14:21 Dose: 250 mls/hr Sodium Chloride (Sodium Chloride 0.9%) 1,000 mls @ 100 mls/hr IV .Q10H [facility] Last Admin: 05/29/17 16:57 Dose: Not Given Cefepime HCl 1 gm/ Dextrose 50 mls @ 100 mls/hr IVPB Q12H [facility] Lisinopril (Zestril) 5 mg PO DAILY [facility] Last Admin: 05/29/17 09:46 Dose: 5 mg Oxycodone/Acetaminophen (Percocet 5/325 Mg Tab) 1 tab PO Q6H PRN PRN Reason: Pain, severe (8-10) Stop: 05/31/17 09:16 Pantoprazole Sodium (Protonix Ec Tab) 40 mg PO DAILY [facility] Last Admin: 05/29/17 09:46 Dose: 40 mg Saccharomyces Boulardii (Florastor) 250 mg PO BID [facility] Last Admin: 05/29/17 17:32 Dose: 250 mg Tamsulosin HCl (Flomax) 0.4 mg PO DAILY [facility] Last Admin: 05/29/17 09:46 Dose: 0.4 mg - Labs Labs: 05/29/17 07:59 05/29/17 07:59 Attending/Attestation - Attestation I have personally seen and examined this patient.: Yes I have fully participated in the care of the patient.: Yes I have reviewed all pertinent clinical information, including history, physical exam and plan: Yes Notes (Text): 05/29/17 21:53 Patient was seen and examined at 6:45 PM 05/29/17. Exam, Assessment and Plan were thoroughly gone over with the resident. Kyle Valle D.O.
[2017-05-29] MEDS: Pantoprazole 40 mg EC Tab PO SCH (09:46)
[2017-05-29] MEDS: Saccharomyces Boulardi 250 mg Cap PO SCH ×2 (09:46→17:32)
[2017-05-29] MEDS: Ciprofloxacin 400mg/200ml D5W 400 MG/200 ML BAG IVPB SCH ×3 (12:43→22:23)
--- NOTE | 2017-05-29 20:41 | CP.PCM.CON ---
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 The patient has had an extensive work up pertaining to his thrombocytopenia, anemia , and renal failure. 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 His kidney biopsy was complicated by hemorrhage and need for IR embolization. A bone marrow biopsy revealed normocellular marrow with megakaryocytic hyperplasia consistent with peripheral destruction. Plasma exchange was performed at the time with no improvement in thrombocytopenia or microangiopathic hemolysis. [id number] level returned normal and the patient was felt to have atypical HUS. He was started on eculizumab with variability in his renal function from a cr of 3-5. His platelet count remained severely low and has ranged around 10,000. Most recently he reports to increasing headache which he has been taking Advil for. He does admit to intermittent gum bleeding but no other abnormal bleeding or bruising. Past medical history: ?atypical HUS Past surgical history: None Family history: Denies known hematologic and oncologic problems Social history: Denies tobacco, alcohol, and illicit drug use. Allergies: NKA Review of systems: All remaining review of systems including HEENT, cardiovascular, respiratory, gastrointestinal, genitourinary, musculoskeletal, dermatologic, neurologic, and psychiatric are negative unless mentioned in the HPI. Past Patient History - Infectious Disease Hx of Infectious Diseases: None - Past Medical History & Family History Past Medical History?: Yes - Past Social History Smoking Status: Never Smoked - CARDIAC Hx Hypertension: Yes - PULMONARY Hx Respiratory Disorders: No - NEUROLOGICAL Hx Neurological Disorder: No - HEENT Hx Deafness: (uses hearing aide) Other/Comment: HEARING IMPAIRED - RENAL Hx Chronic Kidney Disease: No - ENDOCRINE/METABOLIC Hx Endocrine Disorders: No - HEMATOLOGICAL/ONCOLOGICAL Other/Comment: Thrombocytopenia - INTEGUMENTARY Hx Dermatological Problems: No - MUSCULOSKELETAL/RHEUMATOLOGICAL Hx Musculoskeletal Disorders: No - GASTROINTESTINAL Hx Gastrointestinal Disorders: No - GENITOURINARY/GYNECOLOGICAL Hx Genitourinary Disorders: No - PSYCHIATRIC Hx Substance Use: No - SURGICAL HISTORY Hx Surgeries: Yes Hx Splenectomy: Yes (AT 4 YEARS OF AGE) Other/Comment: peritoneal dialysis catheter 05/2017 - ANESTHESIA Hx Anesthesia: Yes Hx Anesthesia Reactions: No Hx Malignant Hyperthermia: No Meds Allergies/Adverse Reactions: Allergies Allergy/AdvReac Type Severity Reaction Status Date / Time aspirin AdvReac ANAPHYLAXIS Verified 05/28/17 04:16 - Medications Medications: Current Medications Clonidine HCl (Catapres) 0.2 mg PO BID [facility] Last Admin: 05/29/17 17:32 Dose: Not Given Docusate Sodium (Colace) 100 mg PO TID [facility] Last Admin: 05/29/17 17:32 Dose: 100 mg Guaifenesin/Dextromethorphan (Robitussin Dm) 5 ml PO Q6H PRN PRN Reason: Cough Last Admin: 05/29/17 17:32 Dose: 5 ml Ciprofloxacin (Cipro 400mg/200ml Dsw) 400 mg in 200 mls @ 200 mls/hr IVPB Q12H [facility] Last Admin: 05/29/17 12:43 Dose: 200 mls/hr Piperacillin Sod/Tazobactam (Sod 2.25 gm/ Sodium Chloride) 100 mls @ 200 mls/ hr IVPB Q6H [facility] Last Admin: 05/29/17 16:45 Dose: 200 mls/hr Vancomycin HCl 1,200 mg/ (Sodium Chloride) 250 mls @ 250 mls/hr IVPB DAILY@ 1300 [facility] Last Admin: 05/29/17 14:21 Dose: 250 mls/hr Sodium Chloride (Sodium Chloride 0.9%) 1,000 mls @ 100 mls/hr IV .Q10H [facility] Last Admin: 05/29/17 16:57 Dose: Not Given Lisinopril (Zestril) 5 mg PO DAILY [facility] Last Admin: 05/29/17 09:46 Dose: 5 mg Oxycodone/Acetaminophen (Percocet 5/325 Mg Tab) 1 tab PO Q6H PRN PRN Reason: Pain, severe (8-10) Stop: 05/31/17 09:16 Pantoprazole Sodium (Protonix Ec Tab) 40 mg PO DAILY [facility] Last Admin: 05/29/17 09:46 Dose: 40 mg Saccharomyces Boulardii (Florastor) 250 mg PO BID [facility] Last Admin: 05/29/17 17:32 Dose: 250 mg Tamsulosin HCl (Flomax) 0.4 mg PO DAILY [facility] Last Admin: 05/29/17 09:46 Dose: 0.4 mg Physical Exam - Head Exam Head Exam: ATRAUMATIC - Eye Exam Eye Exam: Normal appearance - ENT Exam ENT Exam: Mucous Membranes Dry - Respiratory Exam Respiratory Exam: NORMAL BREATHING PATTERN - Cardiovascular Exam Cardiovascular Exam: +S1, +S2 - GI/Abdominal Exam GI & Abdominal Exam: Normal Bowel Sounds - Extremities Exam Extremities exam: Positive for: normal inspection - Neurological Exam Neurological exam: Oriented x3 - Psychiatric Exam Psychiatric exam: Normal Affect, Normal Mood - Skin Skin Exam: Warm Results - Vital Signs Recent Vital Signs: Last Vital Signs Temp 98 F 05/29/17 15:55 Pulse 58 L 05/29/17 15:55 Resp 20 05/29/17 15:55 BP 121/79 05/29/17 15:55 Pulse Ox 98 05/29/17 15:55 - Labs Result Diagrams: 05/29/17 07:59 05/29/17 07:59 Labs: Laboratory Results - last 24 hr 05/29/17 05/29/17 07:59 07:59 WBC 10.5 RBC 3.87 L Hgb 11.6 L Hct 36.1 MCV 93.4 MCH 30.1 MCHC 32.2 L RDW 15.2 H Plt Count 26 L* D MPV 6.7 L Neut % (Auto) 44.9 L Lymph % (Auto) 29.5 [place] % (Auto) 16.8 H Eos % (Auto) 7.8 H Baso % (Auto) 1.0 Neut # 4.7 Lymph # 3.1 [place] # 1.8 H Eos # 0.8 H Baso # 0.1 Differential Comment Sodium 140 Potassium 4.5 Chloride 101 Carbon Dioxide 24 Anion Gap 20 BUN 33 H Creatinine 5.9 H Est GFR ( Amer) 14 Est GFR (Non-Af Amer) 11 Random Glucose 93 Calcium 9.5 Assessment & Plan (1) Hemolytic uremic syndrome Assessment and Plan: thrombocytopenia on outpatient Eculizumab Status: Acute (2) Anemia Assessment and Plan: anemia of CKD Thank you for this interesting consult. Status: Acute
--- NOTE | 2017-05-29 21:51 | CP.PCM.CON ---
History of Present Illness - History of Present Illness History of Present Illness: dictated Past Patient History - Infectious Disease Hx of Infectious Diseases: None - Past Medical History & Family History Past Medical History?: Yes - Past Social History Smoking Status: Never Smoked - CARDIAC Hx Hypertension: Yes - PULMONARY Hx Respiratory Disorders: No - NEUROLOGICAL Hx Neurological Disorder: No - HEENT Hx Deafness: (uses hearing aide) Other/Comment: HEARING IMPAIRED - RENAL Hx Chronic Kidney Disease: No - ENDOCRINE/METABOLIC Hx Endocrine Disorders: No - HEMATOLOGICAL/ONCOLOGICAL Other/Comment: Thrombocytopenia - INTEGUMENTARY Hx Dermatological Problems: No - MUSCULOSKELETAL/RHEUMATOLOGICAL Hx Musculoskeletal Disorders: No - GASTROINTESTINAL Hx Gastrointestinal Disorders: No - GENITOURINARY/GYNECOLOGICAL Hx Genitourinary Disorders: No - PSYCHIATRIC Hx Substance Use: No - SURGICAL HISTORY Hx Surgeries: Yes Hx Splenectomy: Yes (AT 4 YEARS OF AGE) Other/Comment: peritoneal dialysis catheter 05/2017 - ANESTHESIA Hx Anesthesia: Yes Hx Anesthesia Reactions: No Hx Malignant Hyperthermia: No Meds Allergies/Adverse Reactions: Allergies Allergy/AdvReac Type Severity Reaction Status Date / Time aspirin AdvReac ANAPHYLAXIS Verified 05/28/17 04:16 - Medications Medications: Current Medications Clonidine HCl (Catapres) 0.2 mg PO BID [facility] Last Admin: 05/29/17 17:32 Dose: Not Given Docusate Sodium (Colace) 100 mg PO TID [facility] Last Admin: 05/29/17 17:32 Dose: 100 mg Guaifenesin/Dextromethorphan (Robitussin Dm) 5 ml PO Q6H PRN PRN Reason: Cough Last Admin: 05/29/17 17:32 Dose: 5 ml Vancomycin HCl 1,200 mg/ (Sodium Chloride) 250 mls @ 250 mls/hr IVPB DAILY@ 1300 [facility] Last Admin: 05/29/17 14:21 Dose: 250 mls/hr Sodium Chloride (Sodium Chloride 0.9%) 1,000 mls @ 100 mls/hr IV .Q10H [facility] Last Admin: 05/29/17 16:57 Dose: Not Given Cefepime HCl 1 gm/ Dextrose 50 mls @ 100 mls/hr IVPB Q12H [facility] Lisinopril (Zestril) 5 mg PO DAILY [facility] Last Admin: 05/29/17 09:46 Dose: 5 mg Oxycodone/Acetaminophen (Percocet 5/325 Mg Tab) 1 tab PO Q6H PRN PRN Reason: Pain, severe (8-10) Stop: 05/31/17 09:16 Pantoprazole Sodium (Protonix Ec Tab) 40 mg PO DAILY [facility] Last Admin: 05/29/17 09:46 Dose: 40 mg Saccharomyces Boulardii (Florastor) 250 mg PO BID [facility] Last Admin: 05/29/17 17:32 Dose: 250 mg Tamsulosin HCl (Flomax) 0.4 mg PO DAILY [facility] Last Admin: 05/29/17 09:46 Dose: 0.4 mg Results - Vital Signs Recent Vital Signs: Last Vital Signs Temp 98 F 05/29/17 15:55 Pulse 58 L 05/29/17 15:55 Resp 20 05/29/17 15:55 BP 121/79 05/29/17 15:55 Pulse Ox 98 05/29/17 15:55 - Labs Result Diagrams: 05/29/17 07:59 05/29/17 07:59 Labs: Laboratory Results - last 24 hr 05/29/17 05/29/17 07:59 07:59 WBC 10.5 RBC 3.87 L Hgb 11.6 L Hct 36.1 MCV 93.4 MCH 30.1 MCHC 32.2 L RDW 15.2 H Plt Count 26 L* D MPV 6.7 L Neut % (Auto) 44.9 L Lymph % (Auto) 29.5 [place] % (Auto) 16.8 H Eos % (Auto) 7.8 H Baso % (Auto) 1.0 Neut # 4.7 Lymph # 3.1 [place] # 1.8 H Eos # 0.8 H Baso # 0.1 Differential Comment Sodium 140 Potassium 4.5 Chloride 101 Carbon Dioxide 24 Anion Gap 20 BUN 33 H Creatinine 5.9 H Est GFR ( Amer) 14 Est GFR (Non-Af Amer) 11 Random Glucose 93 Calcium 9.5
[2017-05-30] MEDS: Sodium Chloride 0.9% 1,000 ML IV SCH ×4 (02:00→21:30)
[2017-05-30 06:12] LABS: BASO # 0.1 K/uL (0.0-0.2); EOS # 0.9 K/uL (0.0-0.7); EOS % 8.4 % (0.0-4.0); HEMOGLOBIN 11.2 g/dL (12.0-18.0); LYMPH # 3.8 K/uL (1.0-4.3); LYMPH % 34.4 % (20.0-40.0); MEAN CORPUSCULAR HEMOGLOBIN 30.1 pg (27.0-31.0); MEAN CORPUSCULAR HGB CONC 32.4 g/dL (33.0-37.0); MEAN PLATELET VOLUME 8.6 fL (7.2-11.7); MONO # 1.8 K/uL (0.0-0.8); MONO % 15.9 % (0.0-10.0); NEUT # 4.5 K/uL (1.8-7.0); NEUT % 40.3 % (50.0-75.0); RBC 3.72 Mil/uL (4.40-5.90); RED CELL DISTRIBUTION WIDTH 14.9 % (11.5-14.5); WHITE BLOOD COUNT 11.2 K/uL (4.8-10.8)
[2017-05-30 06:18] LABS: CALCIUM 8.8 mg/dl (8.6-10.4)
--- NOTE | 2017-05-30 11:50 | CP.PCM.PN ---
Subjective - Date & Time of Evaluation Date of Evaluation: 05/30/17 Time of Evaluation: 11:48 - Subjective Subjective: Seen at dialysis - tolerating well To UF 2500ml BP controlled Abdominal pains resolved No n, v, d, SOB Starting to eat? Objective - Vital Signs/Intake and Output Vital Signs (last 24 hours): Temp Pulse Resp BP Pulse Ox 98 F 56 L 16 135/95 H 98 05/30/17 09:15 05/30/17 09:15 05/30/17 09:15 05/30/17 11:03 05/30/17 09:15 Intake and Output: 05/30/17 05/30/17 06:59 18:59 Intake Total 1650 Balance 1650 - Medications Medications: Current Medications Clonidine HCl (Catapres) 0.2 mg PO BID [facility] Last Admin: 05/29/17 17:32 Dose: Not Given Docusate Sodium (Colace) 100 mg PO TID [facility] Last Admin: 05/29/17 17:32 Dose: 100 mg Guaifenesin/Dextromethorphan (Robitussin Dm) 5 ml PO Q6H PRN PRN Reason: Cough Last Admin: 05/29/17 17:32 Dose: 5 ml Vancomycin HCl 1,200 mg/ (Sodium Chloride) 250 mls @ 250 mls/hr IVPB DAILY@ 1300 [facility] Last Admin: 05/29/17 14:21 Dose: 250 mls/hr Sodium Chloride (Sodium Chloride 0.9%) 1,000 mls @ 100 mls/hr IV .Q10H [facility] Last Admin: 05/30/17 02:00 Dose: Not Given Cefepime HCl 1 gm/ Dextrose 50 mls @ 100 mls/hr IVPB Q24H [facility] Lisinopril (Zestril) 5 mg PO DAILY [facility] Last Admin: 05/29/17 09:46 Dose: 5 mg Oxycodone/Acetaminophen (Percocet 5/325 Mg Tab) 1 tab PO Q6H PRN PRN Reason: Pain, severe (8-10) Stop: 05/31/17 09:16 Pantoprazole Sodium (Protonix Ec Tab) 40 mg PO DAILY [facility] Last Admin: 05/29/17 09:46 Dose: 40 mg Saccharomyces Boulardii (Florastor) 250 mg PO BID [facility] Last Admin: 05/29/17 17:32 Dose: 250 mg Tamsulosin HCl (Flomax) 0.4 mg PO DAILY [facility] Last Admin: 05/29/17 09:46 Dose: 0.4 mg - Labs Labs: 05/30/17 05:56 05/30/17 05:56 - Constitutional Appears: Non-toxic, No Acute Distress - Head Exam Head Exam: ATRAUMATIC, NORMAL INSPECTION - Eye Exam Eye Exam: EOMI, Normal appearance - Neck Exam Neck Exam: Normal Inspection. absent: Tenderness - Respiratory Exam Respiratory Exam: Clear to Ausculation Bilateral, NORMAL BREATHING PATTERN - Cardiovascular Exam Cardiovascular Exam: REGULAR RHYTHM, +S1 - GI/Abdominal Exam GI & Abdominal Exam: Soft, Normal Bowel Sounds. absent: Tenderness - Extremities Exam Extremities Exam: Normal Inspection. absent: Tenderness - Neurological Exam Neurological Exam: Alert, CN II-XII Intact - Skin Skin Exam: Dry, Warm Assessment and Plan (1) ESRD (end stage renal disease) on dialysis Status: Acute (2) Sudden onset of severe abdominal pain Status: Acute (3) Hemolytic uremic syndrome Status: Acute (4) Hypertension Status: Chronic - Assessment and Plan (Free Text) Plan: Dialysis now Surgical follw up Will need 1 flush PD catheter this week. Eventual PD training
[2017-05-30 13:26] VITALS: RESP 20
[2017-05-30] MEDS: Saccharomyces Boulardi 250 mg Cap PO SCH ×2 (13:37→18:35)
[2017-05-30] MEDS: Pantoprazole 40 mg EC Tab PO SCH (13:37)
--- NOTE | 2017-05-30 17:54 | CP.PCM.PN ---
Subjective - Date & Time of Evaluation Date of Evaluation: 05/30/17 Time of Evaluation: 09:40 - Subjective Subjective: Medicine note ( PGY 1) : Dr. Hernández's service Patient was seen and examined during dialysis. Patient states that he is doing well. Patient continues to experience minimal non-productive cough and right sided rib pain due to cough. Patient denies chest pain, sob, fever, chills, nausea, vomiting, diarrhea. Patient has no new complaints. Objective - Vital Signs/Intake and Output Vital Signs (last 24 hours): Temp Pulse Resp BP Pulse Ox 98.7 F 69 20 118/84 98 05/30/17 16:00 05/30/17 16:00 05/30/17 16:00 05/30/17 16:00 05/30/17 16:00 Intake and Output: 05/30/17 05/30/17 06:59 18:59 Intake Total 1650 450 Balance 1650 450 - Medications Medications: Current Medications Clonidine HCl (Catapres) 0.2 mg PO BID [facility] Last Admin: 05/30/17 11:00 Dose: Not Given Docusate Sodium (Colace) 100 mg PO TID [facility] Last Admin: 05/30/17 13:37 Dose: 100 mg Guaifenesin/Dextromethorphan (Robitussin Dm) 5 ml PO Q6H PRN PRN Reason: Cough Last Admin: 05/29/17 17:32 Dose: 5 ml Vancomycin HCl 1,200 mg/ (Sodium Chloride) 250 mls @ 250 mls/hr IVPB DAILY@ 1300 [facility] Last Admin: 05/30/17 13:38 Dose: 250 mls/hr Sodium Chloride (Sodium Chloride 0.9%) 1,000 mls @ 100 mls/hr IV .Q10H [facility] Last Admin: 05/30/17 12:30 Dose: Not Given Cefepime HCl 1 gm/ Dextrose 50 mls @ 100 mls/hr IVPB Q24H [facility] Lisinopril (Zestril) 5 mg PO DAILY [facility] Last Admin: 05/30/17 13:37 Dose: 5 mg Oxycodone/Acetaminophen (Percocet 5/325 Mg Tab) 1 tab PO Q6H PRN PRN Reason: Pain, severe (8-10) Stop: 05/31/17 09:16 Pantoprazole Sodium (Protonix Ec Tab) 40 mg PO DAILY [facility] Last Admin: 05/30/17 13:37 Dose: 40 mg Saccharomyces Boulardii (Florastor) 250 mg PO BID [facility] Last Admin: 05/30/17 13:37 Dose: 250 mg Tamsulosin HCl (Flomax) 0.4 mg PO DAILY [facility] Last Admin: 05/30/17 13:38 Dose: 0.4 mg - Labs Labs: 05/30/17 05:56 05/30/17 05:56 - Constitutional Appears: Well, No Acute Distress - Head Exam Head Exam: ATRAUMATIC - Eye Exam Eye Exam: EOMI, Normal appearance - ENT Exam ENT Exam: Mucous Membranes Moist, Normal Exam - Respiratory Exam Respiratory Exam: Clear to Ausculation Bilateral, NORMAL BREATHING PATTERN - Cardiovascular Exam Cardiovascular Exam: REGULAR RHYTHM, +S1, +S2 - GI/Abdominal Exam GI & Abdominal Exam: Soft, Tenderness (At the site of peritoneal catheter placement ), Normal Bowel Sounds - Extremities Exam Extremities Exam: Normal Inspection, Pedal Edema - Neurological Exam Neurological Exam: Alert, Awake, Oriented x3 - Psychiatric Exam Psychiatric exam: Normal Affect, Normal Mood - Skin Skin Exam: Dry, Normal Color, Warm Assessment and Plan (1) HCAP (healthcare-associated pneumonia) Assessment & Plan: Stable On admission: Non- productive cough Afebrile 05/28/17: WBC: 15.6----> 11.2 (05/30/17) * Negative for influenza A & B and Legionella * Blood culture: negative to date * Urine culture: negative to date (05/28/17)Chest X- ray: Bibasilar opacities may represent atelactasis (05/28): CT abd/pelvis -> Bibasilar consolidation. ID consulted, Dr. Gilmore---> Help appreciated * Patient is asplenic * Cefepime 1gm IVPB Q12H (Started on 05/30/17) * Vancomycin 1,200mg IVPB daily ( Started on 05/28/17) Status: Acute (2) Rib pain on right side Assessment & Plan: Secondary to referred pain from cough * Robitussin 5ML PO Q6H PRN Status: Acute (3) Dilated bowel Assessment & Plan: CT scan: Post operative changes to the kidney. Multiple loops of distended small bowel with trace mural thickening in the left upper quadrant, without surrounding inflammation or fluid to confirm an acute enteritis. * possible 2/2 to anesthetic used during peritoneal dialysis catheter. Surgery consulted (Dr Quach)---> Help appreciated * culture of peritoneal fluid not needed at this time * no surgical intervention at this time. Status: Acute (4) ESRD (end stage renal disease) on dialysis Assessment & Plan: Continues dialysis via perm cath, M, W, F schedule Nephrology consulted, Dr Villasenor-- Help appreciated * As per nephrology: Will need 1 flush PD catheter this week and future PD training * s/p peritoneal dialysis catheter insertion on 05/26/17. * percocet 5/325mg po q6 prn for pain control Status: Acute (5) HUS (hemolytic uremic syndrome), atypical Assessment & Plan: Hematology and Oncology consult, (Dr. 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 Benites, platelet transfusion at platelet levels of <10 * Continue to monitor Status: Chronic (7) Hypertension Assessment & Plan: Uncontrolled 05/28: clondidine 0.2mg po bid. 05/28: lisinopril 5mg po daily----> adjusted to 10mg PO daily (05/30/17) Status: Chronic (8) Prophylactic measure Assessment & Plan: SCD Protonix 40mg po daily Florastor 250mg po bid thrombocytopenic - no anticoagulation needed Status: Resolved
--- NOTE | 2017-05-30 20:29 | CON ---
INFECTIOUS DISEASE CONSULTATION REQUESTED BY: Dr. Guaman. HISTORY OF PRESENT ILLNESS: This patient is a 31-year-old male. He has a history of end-stage renal disease. He is on hemodialysis, has a catheter right side of his chest wall, thrombocytopenia, he has a history of hemolytic-uremic syndrome, hypertension, he has left-sided hearing loss with a hearing aid present. At this time, he had peritoneal dialysis catheter placed on 05/26/2017, as right PermCath was causing tachycardia during hemodialysis. He was discharged on 05/27/2017 and returned with upper abdominal pain. He states the pain began at midnight and intensity increased throughout the night. He also reports of having a cough and he could not fill up his Percocet prescription. He came with pressure like pain at the catheter site. His last hemodialysis was on Tuesday. He did had a CAT scan and he denies any vomiting. No diarrhea. No fever. No chills, but was admitted and I am asked to evaluate him. REVIEW OF SYSTEMS: He denied any chills, any fever. Does have hearing loss from past. Has no eye symptoms. No sore throat. No nasal congestion. No chest pain. No dyspnea on exertion, did have some cough, but no phlegm. No hemoptysis. He did come in with abdominal pain, had no diarrhea, no vomiting and no joint pains. He has no psych history and he does have history of easy bleeding and bruising. Most of the history is taken from chart as he speaks mostly U[place]. SOCIAL HISTORY: He never smoked, has cardiac issues with hypertension and has a hearing aid because of deafness. He is on dialysis and has a catheter placed and he had a history of splenectomy. PAST SURGICAL HISTORY: Splenectomy was done at [age] years of age and has peritoneal dialysis catheter, which was inserted. ALLERGIES: HE IS ALLERGIC TO ASPIRIN, CAUSES ANAPHYLAXIS. MEDICATIONS: Include; 1. Clonidine. 2. Colace. 3. Cipro. He is on 400 mg *------*. 4. Zosyn. 5. Vancomycin. 6. Lisinopril. 8. Oxycodone. 9. Pantoprazole. 10. Promethazine. 11. Saccharomyces. 12. Flomax. I want to see what medications he is getting right now. 1. He is on q.12 hour clonidine. 2. Colace. 3. Guaifenesin. 4. Zestril. 5. Oxycodone. 6. Pantoprazole. 7. Zosyn. 8. *------*. 9. He is also on vancomycin once a day, so he is getting lot of antibiotics in spite of his status of having being on dialysis. PHYSICAL EXAMINATION: VITAL SIGNS: T-max is 98, pulse 58, blood pressure 121/79, respirations are 20. HEENT: Head is atraumatic and normocephalic. Pupils are reacting to light. He has left ear hearing aid. NECK: Supple. JVP is flat. CHEST: He has an apparent catheter in the right chest wall still present. LUNGS: Clear. Few basal crackles present on the right base. HEART: S1 and S2 regular. No murmurs appreciated. ABDOMEN: Soft and mildly tender. EXTREMITIES: Have no edema. LABORATORY DATA: Labs are noted. Labs show white count is 10.5, hemoglobin 11.6, hematocrit 36.1, platelet count is 26, it has dropped. He only had platelet count of 42 when he came in. Sodium is 140, potassium 4.5, chloride is 101, , anion gap is 20, BUN is 33 and creatinine 5.9. UA shows 2+ proteins. Influenza was negative. Legionella was negative. Chest X-ray shows bibasilar opacities and represent atelectasis. They also did abdomen and pelvis CAT scan, which shows bibasilar consolidation, postop changes within the left kidney, multiple lobes of distended small bowel with trace mural thickening in left upper quadrant without surrounding inflammation of fluid to confirm an acute enteritis and peritoneal catheter is coiled in the right lower quadrant. So at this time, patient has thrombocytopenia. He is on vancomycin, Zosyn and Cipro but he is getting high doses so we will discontinue Cipro as well as Zosyn and put him on Maxipime and will follow and vancomycin we will get a random level tomorrow and he has been getting it daily and probably he did get only two doses since he was admitted on 05/28/2017. I will get a random level tomorrow to re-dose the vancomycin which has been ordered for tomorrow already. We will follow and put him on Maxipime as his platelets are decreasing and we will follow. IMPRESSION: He just had a procedure done and post procedure he is here, rule out infection, but blood culture and urine cultures are all negative. He does have some bibasilar infiltrates and we will continue with Maxipime and get a vancomycin random level tomorrow and will follow. Jaswant Gilmore MD
[2017-05-31 01:04] VITALS: TEMP 98
[2017-05-31 07:21] LABS: HEMOGLOBIN 11.4 g/dL (12.0-18.0); MEAN CELL VOLUME 93.3 fL (80.0-94.0); MEAN CORPUSCULAR HEMOGLOBIN 29.8 pg (27.0-31.0); RBC 3.82 Mil/uL (4.40-5.90); RED CELL DISTRIBUTION WIDTH 15.1 % (11.5-14.5); WHITE BLOOD COUNT 10.1 K/uL (4.8-10.8)
[2017-05-31 07:36] LABS: CALCIUM 9.4 mg/dl (8.6-10.4); MAGNESIUM 2.1 mg/dL (1.6-2.3)
[2017-05-31 08:39] LABS: EOS # 0.4 K/uL (0.0-0.7); LYMPH # 4.3 K/uL (1.0-4.3); MONO # 0.8 K/uL (0.0-0.8); NEUT # 4.7 K/uL (1.8-7.0)
[2017-05-31 08:48] VITALS: O2SAT 100
[2017-05-31 09:43] VITALS: PULSE 62
[2017-05-31] MEDS: Pantoprazole 40 mg EC Tab PO SCH (09:45)
[2017-05-31] MEDS: Sodium Chloride 0.9% 1,000 ML IV SCH (09:47)
[2017-05-31] MEDS: Saccharomyces Boulardi 250 mg Cap PO SCH ×2 (10:53→17:37)
--- NOTE | 2017-05-31 11:39 | CP.PCM.PN ---
Subjective - Date & Time of Evaluation Date of Evaluation: 05/31/17 Time of Evaluation: 11:38 - Subjective Subjective: hd yesterday unremarkable low bp noted, heart rate 50-60s hgb stable eating lunch. denies any cp/sob/nausea/vomiting/headache/fevers/chills/ dizziness Objective - Vital Signs/Intake and Output Vital Signs (last 24 hours): Temp Pulse Resp BP Pulse Ox 98 F 62 20 122/80 100 05/31/17 07:00 05/31/17 09:43 05/31/17 07:00 05/31/17 09:43 05/31/17 08:00 Intake and Output: 05/31/17 05/31/17 06:59 18:59 Intake Total 1850 Balance 1850 - Medications Medications: Current Medications Docusate Sodium (Colace) 100 mg PO TID [facility]S [facility] Last Admin: 05/31/17 09:45 Dose: 100 mg Guaifenesin/Dextromethorphan (Robitussin Dm) 5 ml PO Q6H PRN PRN Reason: Cough Last Admin: 05/29/17 17:32 Dose: 5 ml Vancomycin HCl 1,200 mg/ (Sodium Chloride) 250 mls @ 250 mls/hr IVPB DAILY@ 1300 [facility] Last Admin: 05/30/17 13:38 Dose: 250 mls/hr Sodium Chloride (Sodium Chloride 0.9%) 1,000 mls @ 100 mls/hr IV .Q10H [facility] Last Admin: 05/31/17 09:47 Dose: Not Given Cefepime HCl 1 gm/ Dextrose 50 mls @ 100 mls/hr IVPB Q24H [facility]S [facility] Last Admin: 05/30/17 22:53 Dose: 100 mls/hr Lisinopril (Zestril) 10 mg PO DAILY [facility] 234 [facility]S [facility] Last Admin: 05/31/17 09:45 Dose: 10 mg Pantoprazole Sodium (Protonix Ec Tab) 40 mg PO DAILY [facility] Last Admin: 05/31/17 09:45 Dose: 40 mg Saccharomyces Boulardii (Florastor) 250 mg PO BID [facility] 234 [facility] Last Admin: 05/31/17 10:53 Dose: 250 mg Tamsulosin HCl (Flomax) 0.4 mg PO DAILY [facility]S [facility] Last Admin: 05/31/17 09:45 Dose: 0.4 mg - Labs Labs: 05/31/17 07:10 05/31/17 07:10 - Constitutional Appears: Non-toxic, No Acute Distress - Head Exam Head Exam: NORMAL INSPECTION - Eye Exam Eye Exam: Normal appearance - ENT Exam ENT Exam: Mucous Membranes Moist, Normal Exam - Neck Exam Neck Exam: Normal Inspection - Respiratory Exam Respiratory Exam: Clear to Ausculation Bilateral, NORMAL BREATHING PATTERN - Cardiovascular Exam Cardiovascular Exam: REGULAR RHYTHM, RRR - GI/Abdominal Exam GI & Abdominal Exam: Distended Additional comments: pd catheter. dressing without any discharge - Extremities Exam Extremities Exam: Normal Inspection Assessment and Plan (1) Dilated bowel Status: Acute (2) ESRD (end stage renal disease) on dialysis Status: Acute (3) HCAP (healthcare-associated pneumonia) Status: Acute (4) Hemolytic uremic syndrome Status: Acute (5) HUS (hemolytic uremic syndrome), atypical Status: Chronic (6) Thrombocytopenia Status: Chronic - Assessment and Plan (Free Text) Assessment: hd mwf flush pd catheter antibiotics per ID hold clonidine dc iv fluids if adequate po intake
--- NOTE | 2017-05-31 13:27 | CP.PCM.PN ---
Subjective - Date & Time of Evaluation Date of Evaluation: 05/31/17 Time of Evaluation: 13:50 - Subjective Subjective: No complaints. Objective - Vital Signs/Intake and Output Vital Signs (last 24 hours): Temp Pulse Resp BP Pulse Ox 98 F 62 20 122/80 100 05/31/17 07:00 05/31/17 09:43 05/31/17 07:00 05/31/17 09:43 05/31/17 08:00 Intake and Output: 05/31/17 05/31/17 06:59 18:59 Intake Total 1850 Balance 1850 - Medications Medications: Current Medications Docusate Sodium (Colace) 100 mg PO TID [facility] Last Admin: 05/31/17 09:45 Dose: 100 mg Guaifenesin/Dextromethorphan (Robitussin Dm) 5 ml PO Q6H PRN PRN Reason: Cough Last Admin: 05/29/17 17:32 Dose: 5 ml Vancomycin HCl 1,200 mg/ (Sodium Chloride) 250 mls @ 250 mls/hr IVPB DAILY@ 1300 [facility] Last Admin: 05/30/17 13:38 Dose: 250 mls/hr Cefepime HCl 1 gm/ Dextrose 50 mls @ 100 mls/hr IVPB Q24H [facility] Last Admin: 05/30/17 22:53 Dose: 100 mls/hr Lisinopril (Zestril) 10 mg PO DAILY [facility] Last Admin: 05/31/17 09:45 Dose: 10 mg Pantoprazole Sodium (Protonix Ec Tab) 40 mg PO DAILY [facility] Last Admin: 05/31/17 09:45 Dose: 40 mg Saccharomyces Boulardii (Florastor) 250 mg PO BID [facility] Last Admin: 05/31/17 10:53 Dose: 250 mg Tamsulosin HCl (Flomax) 0.4 mg PO DAILY [facility] Last Admin: 05/31/17 09:45 Dose: 0.4 mg - Labs Labs: 05/31/17 07:10 05/31/17 07:10 - Head Exam Head Exam: ATRAUMATIC - Eye Exam Eye Exam: Normal appearance - ENT Exam ENT Exam: Mucous Membranes Dry - Respiratory Exam Respiratory Exam: NORMAL BREATHING PATTERN - Cardiovascular Exam Cardiovascular Exam: +S1, +S2 - GI/Abdominal Exam GI & Abdominal Exam: Normal Bowel Sounds - Extremities Exam Extremities Exam: Normal Inspection Assessment and Plan (1) Hemolytic uremic syndrome Assessment & Plan: outpatient eculizumab Status: Acute (2) Anemia Status: Acute
[2017-05-31 16:27] VITALS: BP 107/54
--- NOTE | 2017-05-31 16:41 | RAD ---
HISTORY: Pneumonia COMPARISON: 05/28/2017. FINDINGS: The right IJV dialysis catheter terminates in the right atrium. LUNGS: There is mild pulmonary venous congestion and interstitial pulmonary edema. There is airspace disease in the right lower lobe. PLEURA: No significant pleural effusion identified, no pneumothorax apparent. CARDIOVASCULAR: Normal. OSSEOUS STRUCTURES: No significant abnormalities. VISUALIZED UPPER ABDOMEN: Normal. OTHER FINDINGS: None. IMPRESSION: Question of developing right lower lobe pneumonia. Follow-up after medical management is recommended to ensure complete resolution. Mild pulmonary venous congestion and interstitial pulmonary edema.
--- NOTE | 2017-05-31 19:27 | CP.PCM.DIS ---
Provider - Provider Date of Admission: 05/28/17 06:50 Attending physician: Frank Hernández MD Time Spent in preparation of Discharge (in minutes): 45 Diagnosis - Discharge Diagnosis (1) HCAP (healthcare-associated pneumonia) Status: Acute (2) Rib pain on right side Status: Acute (3) Dilated bowel Status: Acute (4) ESRD (end stage renal disease) on dialysis Status: Acute (5) HUS (hemolytic uremic syndrome), atypical Status: Chronic (6) Thrombocytopenia Status: Chronic (7) Hypertension Status: Chronic (8) Prophylactic measure Status: Resolved Hospital Course - Lab Results Lab Results: Micro Results 05/28/17 10:25 Blood Blood Culture - Preliminary NO GROWTH AFTER 3 DAYS 05/28/17 10:25 Blood Blood Culture - Preliminary NO GROWTH AFTER 3 DAYS 05/28/17 07:17 Urine Urine Culture - Final No Growth (<1,000 CFU/ML) Most Recent Lab Values WBC 10.1 K/uL (4.8-10.8) 05/31/17 07:10 RBC 3.82 Mil/uL (4.40-5.90) L 05/31/17 07:10 Hgb 11.4 g/dL (12.0-18.0) L 05/31/17 07:10 Hct 35.6 % (35.0-51.0) 05/31/17 07:10 MCV 93.3 fL (80.0-94.0) 05/31/17 07:10 MCH 29.8 pg (27.0-31.0) 05/31/17 07:10 MCHC 32.0 g/dL (33.0-37.0) L 05/31/17 07:10 RDW 15.1 % (11.5-14.5) H 05/31/17 07:10 Plt Count 20 K/uL (130-400) L* 05/31/17 07:10 MPV 8.0 fL (7.2-11.7) 05/31/17 07:10 Neut % (Auto) 46.0 % (50.0-75.0) L 05/31/17 07:10 Lymph % (Auto) 42.0 % (20.0-40.0) H 05/31/17 07:10 Sharkey % (Auto) 8.0 % (0.0-10.0) 05/31/17 07:10 Eos % (Auto) 4.0 % (0.0-4.0) 05/31/17 07:10 Baso % (Auto) 0.0 % (0.0-2.0) 05/31/17 07:10 Neut # 4.7 K/uL (1.8-7.0) 05/31/17 07:10 Lymph # 4.3 K/uL (1.0-4.3) 05/31/17 07:10 Sharkey # 0.8 K/uL (0.0-0.8) 05/31/17 07:10 Eos # 0.4 K/uL (0.0-0.7) 05/31/17 07:10 Baso # 0.0 K/uL (0.0-0.2) 05/31/17 07:10 Differential Comment 05/31/17 07:10 Sodium 141 mmol/L (132-148) 05/31/17 07:10 Potassium 4.1 mmol/L (3.6-5.2) 05/31/17 07:10 Chloride 101 mmol/L (98-107) 05/31/17 07:10 Carbon Dioxide 25 mmol/L (22-30) 05/31/17 07:10 Anion Gap 19 (10-20) 05/31/17 07:10 BUN 24 mg/dL (9-20) H 05/31/17 07:10 Creatinine 4.8 MG/DL (0.8-1.5) H 05/31/17 07:10 Est GFR ( Amer) 17 05/31/17 07:10 Est GFR (Non-Af Amer) 14 05/31/17 07:10 POC Glucose (mg/dL) 88 mg/dL (65-110) 05/30/17 07:31 Random Glucose 87 mg/dL (75-110) 05/31/17 07:10 Calcium 9.4 mg/dl (8.6-10.4) 05/31/17 07:10 Phosphorus 5.1 mg/dL (2.5-4.5) H 05/31/17 07:10 Magnesium 2.1 mg/dL (1.6-2.3) 05/31/17 07:10 Total Bilirubin 0.8 mg/dL (0.2-1.3) 05/28/17 04:39 AST 20 U/L (17-59) 05/28/17 04:39 ALT 26 U/L (21-72) 05/28/17 04:39 Alkaline Phosphatase 104 U/L (38-126) 05/28/17 04:39 Total Protein 7.4 g/dL (6.3-8.3) 05/28/17 04:39 Albumin 4.2 g/dL (3.5-5.0) 05/28/17 04:39 Globulin 3.3 gm/dL (2.2-3.9) 05/28/17 04:39 Albumin/Globulin Ratio 1.3 (1.0-2.1) 05/28/17 04:39 Lipase 139 U/L (23-300) 05/28/17 04:39 Urine Color Yellow (YELLOW) 05/28/17 07:17 Urine Clarity Clear (Clear) 05/28/17 07:17 Urine pH 7.0 (5.0-8.0) 05/28/17 07:17 Ur Specific [place] 1.012 (1.003-1.030) 05/28/17 07:17 Urine Protein 2+ mg/dL (NEGATIVE) H 05/28/17 07:17 Urine Glucose (UA) Normal mg/dL (Normal) 05/28/17 07:17 Urine Ketones Negative mg/dL (NEGATIVE) 05/28/17 07:17 Urine Blood Negative (NEGATIVE) 05/28/17 07:17 Urine Nitrate Negative (NEGATIVE) 05/28/17 07:17 Urine Bilirubin Negative (NEGATIVE) 05/28/17 07:17 Urine Urobilinogen Normal mg/dL (0.2-1.0) 05/28/17 07:17 Ur Leukocyte Esterase Neg Amy/uL (Negative) 05/28/17 07:17 Urine WBC (Auto) 1 /hpf (0-5) 05/28/17 07:17 Urine RBC (Auto) < 1 /hpf (0-3) 05/28/17 07:17 Ur Squamous Epith Cells < 1 /hpf (0-5) 05/28/17 07:17 Vancomycin Trough 39.1 ug/mL (5.0-10.0) H 05/31/17 12:22 Random Vancomycin 37.20 ug/mL 05/31/17 07:10 Influenza Typ A,B (EIA) Negative for flu a/b (NEGATIVE) 05/28/17 12:22 Ur L.pneumophila Ag Negative (NEGATIVE) 05/28/17 11:50 Mycoplasma pneumon IgM 112 U/mL (<770) 05/28/17 11:08 - Hospital Course Hospital Course: As per admission: HPI: Mr Mae is a 31 yo M with a PMHx of ESRD on HD, thrombocytopenia, hemolytic uremic syndrome, HTN, left sided hearing loss, who had peritoneal dialysis catheter placement at [facility] on 05/26/2017 as right permacath was causing tachycardia during HD. He was discharged night of 05/27/2017 and returns today for upper abdominal pain. He states the pain began around midnight tonight with increasing intensity throughout the night. He also reports a non productive cough which exacerbates his abdominal pain. He states he was laying down and watching TV when the pain began. He did not take percocet because he could not get Rx filled as pharmacy was closed. He also reports a pressure like pain at the catheter insertion site of left abdomen. He denies fever, chills, diaphoresis and sputum production. Hospital course: Patient is s/p peritoneal dialysis catheter 05/26/17, who was admitted with the consideration of upper abdominal pain and non-productive cough with chest X-ray on admission showing signs of pneumonia. Infectious disease, Dr. Gilmore was consulted who made appropriate antibiotics recommendation for medical management. General surgery, Dr. Quach, was consulted who recommended that patient should be medically managed with no surgical intervention at the time and continual use of patient's perm cath for dialysis until peritoneal catheter is healed and cleared by him. Hematology and Oncology, Dr. Benites was consulted due to patient's history of thrombocytopenia, who recommended that patient should be transfused with platelets< 10. Patient's platelets numerical value remained above 10 during the course of admission. Patient received hemodialysis during his admission according to his HD schedule. Patient started to improve clinically and symptomatically. Patient was discharge upon clearance by his care team. Persistent Study Result: Chest X-ray (05/28/17): Bibasilar opacities may represent atelectasis. Chest X-ray (05/31/17): Question of developing right lower lobe pneumonia. Follow -up after medical management is recommended to ensure complete resolution. Mild pulmonary venous congestion and interstitial pulmonary edema Abdomen/Pelvis CT (05/28/17): Bibasilar consolidation. Postoperative change within the left kidney. Multiple loops of distended small bowel with trace mural thickening in the left upper quadrant, without surrounding inflammation or fluid to confirm an acute enteritis. This is brief summary of events. For a complete course, refer to the medical record. Discharge Exam - Head Exam Head Exam: ATRAUMATIC, NORMAL INSPECTION - Eye Exam Eye Exam: EOMI, Normal appearance - ENT Exam ENT Exam: Mucous Membranes Moist, Normal Exam - Respiratory Exam Respiratory Exam: Clear to PA & Lateral, NORMAL BREATHING PATTERN - Cardiovascular Exam Cardiovascular Exam: REGULAR RHYTHM, +S1, +S2 - GI/Abdominal Exam GI & Abdominal Exam: Normal Bowel Sounds, Soft - Neurological Exam Neurological exam: Alert, Normal Gait, Oriented x3 - Psychiatric Exam Psychiatric exam: Normal Affect, Normal Mood - Skin Skin Exam: Dry, Intact, Normal Color, Warm Discharge Plan - Discharge Medications Prescriptions: Cefpodoxime [Vantin] 100 mg PO BID #14 tab Lisinopril [Zestril] 10 mg PO DAILY #30 tab - Follow Up Plan Condition: STABLE Disposition: HOME/ ROUTINE Instructions: Lisinopril (By mouth), Cefpodoxime Proxetil (By mouth), Continuous Ambulatory Peritoneal Dialysis (DC), Dialysis Diet (DC), Acute Abdominal Pain (DC), End Stage Kidney Disease (DC) Additional Instructions: Please discharge patient home Please resume all home medications as prescribed please start the following new medication: 1. Lisinopril 10mg PO (by mouth) daily 2. Vantin 100mg PO (by mouth) BID (twice a day) for 7 days ( Complete 06/07/17) Please follow up with your primary care physician, Dr. Wilkins within a week Please follow up with your preferred vice president of talent acquisition or Dr. Morgan within a week Please follow up with general surgery, Dr. Quach within a week Please return to the hospital if symptoms resume Instructions explained to the patient and patient understands. Referrals: Gustavo Villasenor MD [Staff Provider] - Abdelrahman Quach Jr., MD [Staff Provider] - Bindu Wilkins MD [Staff Provider] -
--- NOTE | 2017-06-03 14:10 | CARD ---
APPROVED REPORT EKG Measurement Heart [id number] <Conclusion> Sinus tachycardia Possible Left atrial enlargement Borderline ECG
== END 2017-05-31 20:10 | disposition home or self-care (01) | DRG 574 ==
LOC: C.ER 03:58 → C.9E 06:50 → C.6T 08:37
PROVIDERS: ADMIT Internal Medicine; ATTEND Internal Medicine
PROC: 5A1D00Z (ICD-10-PCS; principal; 2017-05-30)
DX: D59.3 Hemolytic-uremic syndrome (principal); J18.9 Pneumonia, unspecified organism; I12.0 Hypertensive chronic kidney disease with stage 5 chronic kidney disease or end stage renal disease; N18.6 End stage renal disease; D69.6 Thrombocytopenia, unspecified; Z99.2 Dependence on renal dialysis; H91.92 Unspecified hearing loss, left ear; K06.8 Other specified disorders of gingiva and edentulous alveolar ridge; D63.1 Anemia in chronic kidney disease; K31.89 Other diseases of stomach and duodenum

== ENCOUNTER 2017-07-12 13:41 | Emergency (ER) | payer SELFPAY ==
[2017-07-12 13:47] VITALS: BMI 26.2
[2017-07-12 13:57] VITALS: O2SAT 100
[2017-07-12 16:53] VITALS: BP 100/59; PULSE 61; RESP 18; TEMP 97.4
--- NOTE | 2017-07-12 17:49 | C.PDOC ---
History Of Present Illness 31 y/o male presents to ED requesting hemodialysis port catheter to be removed. Patient states he went to former dialysis center yesterday and was told to come to ED as per patient. Patient reports he has not been using port catheter for 3 weeks because his is on peritoneal dialysis. Patient denies nausea, vomiting, fever, changes in po, blood at port catheter site or any other complaint at this time. Time Seen by Provider: 07/12/17 14:47 Chief Complaint (Nursing): Vascular Access Device Problem History Per: Patient History/Exam Limitations: no limitations Onset/Duration Of Symptoms: Days Current Symptoms Are (Timing): Still Present Past Medical History Reviewed: Historical Data, Nursing Documentation, Vital Signs Vital Signs: Last Vital Signs Temp 97.4 F L 07/12/17 16:50 Pulse 61 07/12/17 16:50 Resp 18 07/12/17 16:50 BP 100/59 L 07/12/17 16:50 Pulse Ox 100 07/12/17 18:02 - Medical History PMH: HTN, End Stage Renal Disease - [facility] Procedures EXCISION OF LEFT KIDNEY, PERCUTANEOUS APPROACH, DIAGNOSTIC (09/28/16) EXTRACTION OF ILIAC BONE MARROW, PERC APPROACH, DIAGN (09/28/16) FLUOROSCOPY OF SUPERIOR VENA CAVA, GUIDANCE (03/15/17) INJECT/INFUSE NEC (12/01/14) INSERT OF INFUSION DEV INTO PERITON CAV, PERC ENDO APPROACH (05/25/17) INSERTION OF INFUSION DEV INTO SUP VENA CAVA, PERC APPROACH (03/15/17) IRRIGATION OF PERITON CAV USING DIALYSATE, PERC APPROACH (05/25/17) OCCLUSION OF L RENAL ART WITH INTRALUM DEV, PERC APPROACH (09/28/16) PERFORMANCE OF URINARY FILTRATION, MULTIPLE (03/15/17) PERFORMANCE OF URINARY FILTRATION, SINGLE (05/28/17) PHERESIS OF PLASMA, MULTIPLE (09/28/16) TRANSFUSE NONAUT FROZEN PLASMA IN PERIPH VEIN, PERC (09/28/16) TRANSFUSE NONAUT PLATELETS IN PERIPH VEIN, PERC (05/25/17) TRANSFUSE NONAUT RED BLOOD CELLS IN PERIPH VEIN, PERC (09/28/16) ULTRASONOGRAPHY OF LEFT KIDNEY (09/28/16) Family History: States: No Known Family Hx - Social History Hx Alcohol Use: No Hx Substance Use: No - Immunization History Hx Tetanus Toxoid Vaccination: No Hx Influenza Vaccination: No Hx Pneumococcal Vaccination: No Review Of Systems Except As Marked, All Systems Reviewed And Found Negative. Constitutional: Negative for: Fever, Chills Gastrointestinal: Negative for: Nausea, Vomiting Skin: Negative for: Rash Neurological: Negative for: Weakness, Numbness Physical Exam - Physical Exam Appears: Non-toxic, No Acute Distress Skin: Normal Color, Warm, Dry, No Rash, Other (right subclavian port catheter, Peritoneal dialysis port catheter, non erythematous) Head: Atraumatic, Normacephalic Eye(s): bilateral: Normal Inspection Oral Mucosa: Moist Neck: Normal ROM, Supple Chest: Symmetrical, No Deformity, No Tenderness Cardiovascular: Rhythm Regular, No Murmur Respiratory: Normal Breath Sounds, No Rales, No Rhonchi, No Wheezing Gastrointestinal/Abdominal: Soft, No Tenderness, No Guarding, No Rebound Extremity: Normal ROM, Capillary Refill (<2 seconds) Neurological/Psych: Oriented x3, Normal Speech ED Course And Treatment O2 Sat by Pulse Oximetry: 100 (RA) Pulse Ox Interpretation: Normal Medical Decision Making Medical Decision Making: Discussed with Dr. Quach and agreed for patient to be discharged and follow up in his clinic in 1-2 days Patient understands plan Disposition - Disposition Referrals: Abdelrahman Quach Jr., MD [Staff Provider] - Disposition: HOME/ ROUTINE Disposition Time: 16:20 Condition: GOOD Additional Instructions: Thank you for letting us take care of you today. Your provider was Dr. Mabry. The emergency medical care you received today was directed at your acute symptoms. If you were prescribed any medication, please fill it and take as directed. It may take several days for your symptoms to resolve. Return to the Emergency Department if your symptoms worsen, do not improve, or if you have any other problems. Please contact your doctor or call one of the physicians/clinics you have been referred to that are listed on the Patient Visit Information form that is included in your discharge packet. Bring any paperwork you were given at discharge with you along with any medications you are taking to your follow up visit. Our treatment cannot replace ongoing medical care by a primary care provider (PCP) outside of the emergency department. Thank you for allowing the [facility] team to be part of your care today. Follow up with Dr. Quach in 1-2 days to schedule an appointment. Instructions: Peritoneal Dialysis Catheter Care (ED) Forms: Gen Discharge Inst Sudanese Print Language: OCCITAN - Clinical Impression Clinical Impression: CKD (chronic kidney disease) stage 4, GFR 15-29 ml/min - PA / AUTOMOTIVE ALIGNMENT SPECIALIST / Resident Statement MD/DO has examined the patient and agrees with the treatment plan. - Scribe Statement The provider has reviewed the documentation as recorded by the Bostonibwil Fernandez All medical record entries made by the Shanika were at my direction and personally dictated by me. I have reviewed the chart and agree that the record accurately reflects my personal performance of the history, physical exam, medical decision making, and the department course for this patient. I have also personally directed, reviewed, and agree with the discharge instructions and disposition.
== END 2017-07-12 16:52 | disposition home or self-care (01) ==
LOC: C.ER 13:41
DX: I12.9 Hypertensive chronic kidney disease with stage 1 through stage 4 chronic kidney disease, or unspecified chronic kidney disease (principal); N18.4 Chronic kidney disease, stage 4 (severe); Z99.2 Dependence on renal dialysis

== ENCOUNTER 2017-07-15 06:33 | Day surgery (SDC) | payer SELFPAY ==
[2017-07-15 06:42] VITALS: BMI 26.2
--- NOTE | 2017-07-15 07:15 | C.PDOC ---
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 pt c/o mild cough with white sputum , no fever or chills, no cp or sob. Time Seen by Provider: 07/15/17 07:09 Chief Complaint (Nursing): Medical Clearance History Per: Patient History/Exam Limitations: no limitations Past Medical History Reviewed: Historical Data, Nursing Documentation, Vital Signs Vital Signs: Last Vital Signs Temp 97.8 F 07/15/17 14:30 Pulse 78 07/15/17 14:30 Resp 18 07/15/17 14:30 BP 126/86 07/15/17 14:30 Pulse Ox 100 07/15/17 14:30 - Medical History PMH: HTN, End Stage Renal Disease Denies: Chronic Kidney Disease Other PMH: platelet disorder Other Surgeries: dialysis catheters and ports - [facility] Procedures EXCISION OF LEFT KIDNEY, PERCUTANEOUS APPROACH, DIAGNOSTIC (09/28/16) EXTRACTION OF ILIAC BONE MARROW, PERC APPROACH, DIAGN (09/28/16) FLUOROSCOPY OF SUPERIOR VENA CAVA, GUIDANCE (03/15/17) INJECT/INFUSE NEC (12/01/14) INSERT OF INFUSION DEV INTO PERITON CAV, PERC ENDO APPROACH (05/25/17) INSERTION OF INFUSION DEV INTO SUP VENA CAVA, PERC APPROACH (03/15/17) IRRIGATION OF PERITON CAV USING DIALYSATE, PERC APPROACH (05/25/17) OCCLUSION OF L RENAL ART WITH INTRALUM DEV, PERC APPROACH (09/28/16) PERFORMANCE OF URINARY FILTRATION, MULTIPLE (03/15/17) PERFORMANCE OF URINARY FILTRATION, SINGLE (05/28/17) PHERESIS OF PLASMA, MULTIPLE (09/28/16) TRANSFUSE NONAUT FROZEN PLASMA IN PERIPH VEIN, PERC (09/28/16) TRANSFUSE NONAUT PLATELETS IN PERIPH VEIN, PERC (05/25/17) TRANSFUSE NONAUT RED BLOOD CELLS IN PERIPH VEIN, PERC (09/28/16) ULTRASONOGRAPHY OF LEFT KIDNEY (09/28/16) Family History: States: Unknown Family Hx - Social History Hx Alcohol Use: No Hx Substance Use: No - Immunization History Hx Tetanus Toxoid Vaccination: No Hx Influenza Vaccination: No Hx Pneumococcal Vaccination: No Review Of Systems Constitutional: Negative for: Fever, Chills Cardiovascular: Negative for: Chest Pain Respiratory: Positive for: Cough. Negative for: Shortness of Breath Gastrointestinal: Negative for: Nausea, Vomiting, Abdominal Pain Skin: Negative for: Rash Neurological: Negative for: Weakness, Numbness Physical Exam - Physical Exam Appears: Non-toxic, No Acute Distress Skin: Warm, Dry Head: Atraumatic, Normacephalic Neck: Normal ROM, Supple Chest: Symmetrical, No Deformity, No Tenderness, Other (portacath in right upper chest, non tender) Cardiovascular: Rhythm Regular, No Murmur Respiratory: Normal Breath Sounds, No Rales, No Rhonchi, No Wheezing Gastrointestinal/Abdominal: Bowel Sounds, Soft, No Tenderness, Other ( peritoneal dialysis port left lower abdominal wall) Back: No CVA Tenderness Extremity: Normal ROM, No Pedal Edema Neurological/Psych: Oriented x3, Normal Speech, Normal Cognition, Normal Motor, Normal Sensation ED Course And Treatment - Laboratory Results Result Diagrams: 07/15/17 07:29 07/15/17 07:29 O2 Sat by Pulse Oximetry: 100 Medical Decision Making Medical Decision Making: messages left for Dr Benites and Dr Quach. discussed with Dr Benites, wants one unit plts transfused one hour prior to procedure. Disposition Discussed With : Abdelrahman Quach Jr. Doctor Will See Patient In The: Hospital - Disposition Disposition: HOSPITALIZED Disposition Time: 10:25 Condition: GOOD - Clinical Impression Clinical Impression: Thrombocytopenia, Hemodialysis catheter dysfunction
[2017-07-15 07:42] LABS: BASO # 0.1 K/uL (0.0-0.2); BASO % 0.6 % (0.0-2.0); EOS # 0.3 K/uL (0.0-0.7); EOS % 2.2 % (0.0-4.0); HEMATOCRIT 38.2 % (35.0-51.0); LYMPH # 5.3 K/uL (1.0-4.3); LYMPH % 44.9 % (20.0-40.0); MEAN CORPUSCULAR HEMOGLOBIN 30.6 pg (27.0-31.0); MEAN CORPUSCULAR HGB CONC 32.9 g/dL (33.0-37.0); MEAN PLATELET VOLUME 11.6 fL (7.2-11.7); MONO # 1.7 K/uL (0.0-0.8); MONO % 14.1 % (0.0-10.0); NRBC % 0.1 % (0.0-2.0); RED CELL DISTRIBUTION WIDTH 15.3 % (11.5-14.5); WHITE BLOOD COUNT 11.7 K/uL (4.8-10.8)
[2017-07-15 07:53] LABS: POTASSIUM 5.1 mmol/L (3.6-5.2)
[2017-07-15 07:55] LABS: ALB/GLOB RATIO 1.5 (1.0-2.1); BILIRUBIN,TOTAL 0.6 mg/dL (0.2-1.3); CALCIUM 9.4 mg/dl (8.6-10.4); INR 1.1; TOTAL PROTEIN 7.8 g/dL (6.3-8.3)
--- NOTE | 2017-07-15 08:18 | RAD ---
HISTORY: cough with white sputum COMPARISON: Comparison is made to 05/31/2017 TECHNIQUE: Chest PA and lateral FINDINGS: LUNGS: No significant interval change since the previous exam. No evidence of new infiltrate or consolidation in the lungs. Focal opacity/small infiltrate again noted at the right lower lung. PLEURA: No significant pleural effusion identified. No pneumothorax apparent. CARDIOVASCULAR: Normal. OSSEOUS STRUCTURES: No significant abnormalities. VISUALIZED UPPER ABDOMEN: Normal. OTHER FINDINGS: Right-sided hemodialysis catheter is again seen in place. IMPRESSION: No evidence of significant interval change since the previous exam.
[2017-07-15 08:20] LABS: URINE BILIRUBIN NEGATIVE (NEGATIVE); URINE BLOOD NEGATIVE (NEGATIVE); URINE COLOR Yellow (YELLOW); URINE GLUCOSE (UA) NORMAL (Normal); URINE KETONE NEGATIVE (NEGATIVE); URINE LEUKOCYTE ESTERASE NEG Leu/uL (Negative); URINE PROTEIN 1+ mg/dL (NEGATIVE); URINE UROBILINOGEN NORMAL mg/dL (0.2-1.0); WBC URINE 1 /hpf (0-5)
[2017-07-15] MEDS ORDERED: Sodium Chloride 0.9% 500 ML IV ONE (11:18)
[2017-07-15] MEDS ORDERED: ceFAZolin IV 1 gm in Dextrose 0 GM/0 ML BAG IVPB ONE (12:32)
[2017-07-15] MEDS ORDERED: Lidocaine 1% Inj (20ml) ONE (12:32)
[2017-07-15] MEDS ORDERED: Midazolam 2 MG/2 ML VIAL ONE (12:40)
[2017-07-15] MEDS ORDERED: Propofol 10 mg/ml Inj (20 ML) ONE (12:41)
[2017-07-15] MEDS ORDERED: Lactated Ringer's 1,000 ML IV ONE (13:00)
--- NOTE | 2017-07-15 13:08 | PCM.SURG1 ---
Surgeon's Initial Post Op Note - Surgeon's Notes Surgeon: Dr. Quach Ager Tender: PGY1, Jenaro OMS3 Pre-Operative Diagnosis: End Stage Renal Disease Operative Findings: see op note Post-Operative Diagnosis: Same Operation Performed: Right IJ Permacath removal Specimen/Specimens Removed: Permacath Estimated Blood Loss: EBL {In ML}: 2 Post-Op Condition: Good Date of Surgery/Procedure: 07/15/17 Time of Surgery/Procedure: 12:35
[2017-07-15] MEDS ORDERED: Oxycodone/Acetaminophen 5/325 mg Tab PO ONE (14:00)
[2017-07-15 14:02] VITALS: O2SAT 100
[2017-07-15 14:19] VITALS: RESP 18; TEMP 97.8
[2017-07-15 15:31] VITALS: BP 126/86; PULSE 78
--- NOTE | 2017-07-20 20:30 | OP ---
PROCEDURE DATE: 07/15/2017 PREOPERATIVE DIAGNOSIS: Unnecessary intravascular device. POSTOPERATIVE DIAGNOSIS: Unnecessary intravascular device. PROCEDURE: Removal of Perm-A-Cath. TYPE OF ANESTHESIA: The patient was given no anesthesia. HISTORY: Catheter was grasped and removed. Pressures applied to the site. Procedure was done in the hospital reveals the patient has thrombocytopenia with a low platelet count. I was concerned about the possibility of hemorrhage or bleeding that would not be controlled if we did this in the office. Abdelrahman Quach Jr., MD
== END 2017-07-15 15:13 | disposition home or self-care (01) ==
LOC: C.ER 06:33 → C.SDS 10:34
PROVIDERS: ATTEND Obstetrics & Gynecology Reproductive Endocrinology
DX: D69.6 Thrombocytopenia, unspecified (principal); T82.9XXA Unspecified complication of cardiac and vascular prosthetic device, implant and graft, initial encounter; I12.0 Hypertensive chronic kidney disease with stage 5 chronic kidney disease or end stage renal disease; N18.6 End stage renal disease
CPT/HCPCS: 36430; 36590; 71020; 80053; 81001; 85025; 85610; 85730; 86850; 86900; 88300; 99285; J2001; J2250; J2704; J7040; J7120; P9035

== ENCOUNTER 2017-10-22 16:19 | Emergency (ER) | payer SELFPAY ==
[2017-10-22 16:20] VITALS: BMI 29.4
[2017-10-22 16:45] VITALS: BP 150/88; PULSE 83; RESP 18; TEMP 98; O2SAT 99
--- NOTE | 2017-10-22 17:33 | C.PDOC ---
History Of Present Illness Pt was instructed to go to the ER due to abnormal platelet count on labs done 2 days ago. Pt is asymptomatic. Time Seen by Provider: 10/22/17 17:05 Chief Complaint (Nursing): Abnormal Labs History Per: Patient, Family Current Symptoms Are (Timing): Still Present Severity: None Reports Recently: Treated By A Physician Additional History Per: Prior Records Past Medical History Reviewed: Historical Data, Nursing Documentation, Vital Signs Vital Signs: Last Vital Signs Temp 98 F 10/22/17 16:38 Pulse 83 10/22/17 16:38 Resp 18 10/22/17 16:38 BP 150/88 10/22/17 16:38 Pulse Ox 99 10/22/17 16:38 - Medical History PMH: HTN, End Stage Renal Disease (On PD) Other PMH: Atypical HUS - [facility] Procedures EXCISION OF LEFT KIDNEY, PERCUTANEOUS APPROACH, DIAGNOSTIC (09/28/16) EXTRACTION OF ILIAC BONE MARROW, PERC APPROACH, DIAGN (09/28/16) FLUOROSCOPY OF SUPERIOR VENA CAVA, GUIDANCE (03/15/17) INJECT/INFUSE NEC (12/01/14) INSERT OF INFUSION DEV INTO PERITON CAV, PERC ENDO APPROACH (05/25/17) INSERTION OF INFUSION DEV INTO SUP VENA CAVA, PERC APPROACH (03/15/17) IRRIGATION OF PERITON CAV USING DIALYSATE, PERC APPROACH (05/25/17) OCCLUSION OF L RENAL ART WITH INTRALUM DEV, PERC APPROACH (09/28/16) PERFORMANCE OF URINARY FILTRATION, MULTIPLE (03/15/17) PERFORMANCE OF URINARY FILTRATION, SINGLE (05/28/17) PHERESIS OF PLASMA, MULTIPLE (09/28/16) TRANSFUSE NONAUT FROZEN PLASMA IN PERIPH VEIN, PERC (09/28/16) TRANSFUSE NONAUT PLATELETS IN PERIPH VEIN, PERC (05/25/17) TRANSFUSE NONAUT RED BLOOD CELLS IN PERIPH VEIN, PERC (09/28/16) ULTRASONOGRAPHY OF LEFT KIDNEY (09/28/16) Family History: States: Unknown Family Hx - Social History Hx Alcohol Use: No Hx Substance Use: No - Immunization History Hx Tetanus Toxoid Vaccination: No Hx Influenza Vaccination: No Hx Pneumococcal Vaccination: No Review Of Systems Except As Marked, All Systems Reviewed And Found Negative. Constitutional: Negative for: Fever, Weakness Cardiovascular: Negative for: Chest Pain Respiratory: Negative for: Shortness of Breath, Hemoptysis Gastrointestinal: Negative for: Vomiting, Abdominal Pain, Melena, Hematochezia, Hematemesis Genitourinary: Negative for: Hematuria Musculoskeletal: Negative for: Neck Pain Skin: Negative for: Rash Neurological: Negative for: Weakness, Numbness Physical Exam - Physical Exam Appears: Non-toxic, No Acute Distress, Chronically Ill Skin: Normal Color, Warm, Dry Head: Atraumatic, Normacephalic Eye(s): bilateral: Normal Inspection, PERRL, EOMI Oral Mucosa: Moist Neck: Normal ROM, Supple Cardiovascular: Rhythm Regular Respiratory: Normal Breath Sounds, No Accessory Muscle Use Gastrointestinal/Abdominal: Soft, No Tenderness Extremity: Normal ROM Neurological/Psych: Oriented x3, Normal Cognition, Normal Motor, Normal Sensation ED Course And Treatment O2 Sat by Pulse Oximetry: 99 Pulse Ox Interpretation: Normal Disposition Discussed With : Nas Benites Comment: I reviewed the pt's lab results with him. He states that this is this pt's baseline labs and pt can be discharged home. Doctor Will See Patient In The: Office Counseled Patient/Family Regarding: Diagnosis, Need For Followup - Disposition Referrals: Nas Benites MD [Staff Provider] - Disposition: HOME/ ROUTINE Disposition Time: 17:33 Condition: STABLE Additional Instructions: Follow up with your doctor. Return to the ER if you develop bleeding or if you have any other concerns. Forms: Gen Discharge Inst [place], General Discharge Instructions - Clinical Impression Clinical Impression: HUS (hemolytic uremic syndrome), atypical
== END 2017-10-22 17:37 | disposition home or self-care (01) ==
LOC: C.ER 16:19
DX: D59.3 Hemolytic-uremic syndrome (principal)

== ENCOUNTER 2017-12-16 20:59 | Inpatient (IN) | payer OTHER, SELFPAY ==
[2017-12-16 21:00] VITALS: BMI 28.0
--- NOTE | 2017-12-16 22:21 | C.PDOC ---
History Of Present Illness 31 year old male with Hx of peritoneal dialysis presents to the ED for evaluation of abdominal pain that started today. Patient states once he connected to his machine he started to feel pain in his abdomen radiating down towards the lower abdomen. Patient also repost he feel pain when he goes to urinate. Patient denies fever, chills, nausea, vomit, diarrhea. Time Seen by Provider: 12/16/17 22:24 Chief Complaint (Nursing): Abdominal Pain History Per: Patient History/Exam Limitations: no limitations Onset/Duration Of Symptoms: Days Current Symptoms Are (Timing): Still Present Severity: None Location Of Pain/Discomfort: RLQ Radiation Of Pain To:: None Quality Of Discomfort: "Pain" Exacerbating Factors: None Alleviating Factors: None Recent travel outside of the [place]: No Additional History Per: Patient Past Medical History Reviewed: Historical Data, Nursing Documentation, Vital Signs Vital Signs: Last Vital Signs Temp 97.5 F L 12/16/17 21:24 Pulse 68 12/16/17 23:37 Resp 18 12/16/17 23:37 BP 123/85 12/16/17 23:37 Pulse Ox 100 12/16/17 23:44 - Medical History PMH: HTN, End Stage Renal Disease (PERITONEAL DIALYSIS), Chronic Kidney Disease Surgical History: No Surg Hx - [facility] Procedures EXCISION OF LEFT KIDNEY, PERCUTANEOUS APPROACH, DIAGNOSTIC (09/28/16) EXTRACTION OF ILIAC BONE MARROW, PERC APPROACH, DIAGN (09/28/16) FLUOROSCOPY OF SUPERIOR VENA CAVA, GUIDANCE (03/15/17) INJECT/INFUSE NEC (12/01/14) INSERT OF INFUSION DEV INTO PERITON CAV, PERC ENDO APPROACH (05/25/17) INSERTION OF INFUSION DEV INTO SUP VENA CAVA, PERC APPROACH (03/15/17) IRRIGATION OF PERITON CAV USING DIALYSATE, PERC APPROACH (05/25/17) OCCLUSION OF L RENAL ART WITH INTRALUM DEV, PERC APPROACH (09/28/16) PERFORMANCE OF URINARY FILTRATION, MULTIPLE (03/15/17) PERFORMANCE OF URINARY FILTRATION, SINGLE (05/28/17) PHERESIS OF PLASMA, MULTIPLE (09/28/16) TRANSFUSE NONAUT FROZEN PLASMA IN PERIPH VEIN, PERC (09/28/16) TRANSFUSE NONAUT PLATELETS IN PERIPH VEIN, PERC (05/25/17) TRANSFUSE NONAUT RED BLOOD CELLS IN PERIPH VEIN, PERC (09/28/16) ULTRASONOGRAPHY OF LEFT KIDNEY (09/28/16) Family History: States: Unknown Family Hx - Social History Hx Alcohol Use: No Hx Substance Use: No - Immunization History Hx Tetanus Toxoid Vaccination: No Hx Influenza Vaccination: Yes Hx Pneumococcal Vaccination: No Review Of Systems Constitutional: Negative for: Fever, Chills Cardiovascular: Negative for: Chest Pain Respiratory: Negative for: Cough, Shortness of Breath Gastrointestinal: Positive for: Abdominal Pain. Negative for: Nausea, Vomiting , Diarrhea Genitourinary: Positive for: Dysuria Musculoskeletal: Negative for: Back Pain Skin: Negative for: Rash Neurological: Negative for: Weakness, Numbness Physical Exam - Physical Exam Appears: Non-toxic, No Acute Distress Skin: Normal Color, Warm, Dry Head: Atraumatic, Normacephalic Eye(s): bilateral: Normal Inspection Nose: No Discharge, No Deformity Oral Mucosa: Moist Neck: Normal ROM, Supple Chest: Symmetrical Cardiovascular: Rhythm Regular, No Murmur Respiratory: Normal Breath Sounds, No Rales, No Rhonchi, No Wheezing Gastrointestinal/Abdominal: Soft, Tenderness (RLQ), No Guarding, No Rebound, Other (Dialysis acces in LLQ) Extremity: Normal ROM, No Pedal Edema, No Calf Tenderness, No Deformity, No Swelling Neurological/Psych: Oriented x3, Normal Speech, Normal Cognition Gait: Steady ED Course And Treatment - Laboratory Results Result Diagrams: 12/16/17 22:31 12/16/17 22:31 O2 Sat by Pulse Oximetry: 100 (On RA) Pulse Ox Interpretation: Normal - CT Scan/US CT abd/pelvis Other Rad Studies (CT/US): Read By Radiologist, Radiology Report Reviewed CT/US Interpretation: EXAM: CT Abdomen and Pelvis Without Intravenous Contrast. CLINICAL HISTORY: 31 years old, male; Pain; Abdominal pain. TECHNIQUE: Axial computed tomography images of the abdomen and pelvis without intravenous contrast. All CT. scans at this facility use one or more dose reduction techniques, viz.: automated exposure control;. ma/kV adjustment per patient size (including targeted exams where dose is matched to indication; i.e. head); or iterative reconstruction technique. Coronal and sagittal reformatted images were created and reviewed. COMPARISON: No relevant prior studies available. FINDINGS: Limitations: Lack of intravenous contrast. Motion artifact - mild. Lower thorax: No acute findings. ABDOMEN: Liver: Unremarkable. Gallbladder and bile ducts: No calcified stones. No ductal dilation. Pancreas: Unremarkable. No ductal dilation. Spleen: Splenules or splenic remnants within left upper quadrant. Adrenals: No mass. Kidneys and ureters: Mild atrophy of kidneys. Minimal stranding about left kidney. Postsurgical. changes of left kidney. No renal calculi. No hydronephrosis. Stomach and bowel: No definite mural thickening. No obstruction. Appendix: No findings to suggest acute appendicitis. PELVIS: Bladder: Unremarkable. No stones. Reproductive: Unremarkable as visualized. ABDOMEN and PELVIS: Intraperitoneal space: No significant fluid collection. No free air. Bones/ joints: No acute fracture. Soft tissues: Unremarkable. Vasculature: Unremarkable. No aneurysm. Lymph nodes: No pathologically enlarged lymph nodes. Tubes, lines and devices: Abdominal catheter. IMPRESSION: 1. No definite acute intraabdominal abnormality. 2. Incidental/non-acute findings are described above. Medical Decision Making Medical Decision Making: Impression : abdominal pain Plan: * CT abd/pelvis * Labs Disposition - Disposition Forms: [employer] (Tristanian) - Scribe Statement The provider has reviewed the documentation as recorded by the Scribe Abraham Church All medical record entries made by the Scribe were at my direction and personally dictated by me. I have reviewed the chart and agree that the record accurately reflects my personal performance of the history, physical exam, medical decision making, and the department course for this patient. I have also personally directed, reviewed, and agree with the discharge instructions and disposition. Decision To Admit - Pt Status Changed To: Hospital Disposition Of: Inpatient - Admit Certification Admit to Inpatient:: After my assessment, the patient will require hospitalization for at least two midnights. This is because of the severity of symptoms shown, intensity of services needed, and/or the medical risk in this patient being treated as an outpatient. - InPatient: Physician Admission Certification:: spontaneous bact peritonitis - . Bed Request Type: Regular Patient Diagnosis: Spontaneous bacterial peritonitis
--- NOTE | 2017-12-16 22:23 | C.PDOC ---
Chief Complaint (Nursing): Abdominal Pain Past Medical History Vital Signs: Last Vital Signs Temp 97.5 F L 12/16/17 21:24 Pulse 81 12/16/17 21:24 Resp 18 12/16/17 21:24 BP 125/81 12/16/17 21:24 Pulse Ox 100 12/16/17 21:24 - Medical History PMH: HTN, End Stage Renal Disease (PERITONEAL DIALYSIS), Chronic Kidney Disease - [facility] Procedures EXCISION OF LEFT KIDNEY, PERCUTANEOUS APPROACH, DIAGNOSTIC (09/28/16) EXTRACTION OF ILIAC BONE MARROW, PERC APPROACH, DIAGN (09/28/16) FLUOROSCOPY OF SUPERIOR VENA CAVA, GUIDANCE (03/15/17) INJECT/INFUSE NEC (12/01/14) INSERT OF INFUSION DEV INTO PERITON CAV, PERC ENDO APPROACH (05/25/17) INSERTION OF INFUSION DEV INTO SUP VENA CAVA, PERC APPROACH (03/15/17) IRRIGATION OF PERITON CAV USING DIALYSATE, PERC APPROACH (05/25/17) OCCLUSION OF L RENAL ART WITH INTRALUM DEV, PERC APPROACH (09/28/16) PERFORMANCE OF URINARY FILTRATION, MULTIPLE (03/15/17) PERFORMANCE OF URINARY FILTRATION, SINGLE (05/28/17) PHERESIS OF PLASMA, MULTIPLE (09/28/16) TRANSFUSE NONAUT FROZEN PLASMA IN PERIPH VEIN, PERC (09/28/16) TRANSFUSE NONAUT PLATELETS IN PERIPH VEIN, PERC (05/25/17) TRANSFUSE NONAUT RED BLOOD CELLS IN PERIPH VEIN, PERC (09/28/16) ULTRASONOGRAPHY OF LEFT KIDNEY (09/28/16) Family History: States: Unknown Family Hx - Social History Hx Alcohol Use: No Hx Substance Use: No - Immunization History Hx Tetanus Toxoid Vaccination: No Hx Influenza Vaccination: Yes Hx Pneumococcal Vaccination: No ED Course And Treatment O2 Sat by Pulse Oximetry: 100 Disposition - Disposition
[2017-12-16 22:49] LABS: ALB/GLOB RATIO 1.2 (1.0-2.1); ALBUMIN 3.8 g/dL (3.5-5.0); CALCIUM 8.9 mg/dl (8.6-10.4)
[2017-12-16 23:02] LABS: BASO # 0.2 K/uL (0.0-0.2); EOS # 0.6 K/uL (0.0-0.7); EOS % 2.8 % (0.0-4.0); HEMOGLOBIN 12.7 g/dL (12.0-18.0); LYMPH # 4.7 K/uL (1.0-4.3); LYMPH % 23.1 % (20.0-40.0); MEAN CORPUSCULAR HEMOGLOBIN 30.6 pg (27.0-31.0); MEAN CORPUSCULAR HGB CONC 33.7 g/dL (33.0-37.0); MEAN PLATELET VOLUME 11.1 fL (7.2-11.7); MONO # 2.3 K/uL (0.0-0.8); MONO % 11.3 % (0.0-10.0); NEUT # 12.6 K/uL (1.8-7.0); NEUT % 61.8 % (50.0-75.0); RBC 4.14 Mil/uL (4.40-5.90); RED CELL DISTRIBUTION WIDTH 14.1 % (11.5-14.5)
[2017-12-16 23:05] LABS: WHITE BLOOD COUNT 20.4 K/uL (4.8-10.8)
--- NOTE | 2017-12-16 23:38 | CT ---
EXAM: CT Abdomen and Pelvis Without Intravenous Contrast CLINICAL HISTORY: 31 years old, male; Pain; Abdominal pain TECHNIQUE: Axial computed tomography images of the abdomen and pelvis without intravenous contrast. All CT scans at this facility use one or more dose reduction techniques, viz.: automated exposure control; ma/kV adjustment per patient size (including targeted exams where dose is matched to indication; i.e. head); or iterative reconstruction technique. Coronal and sagittal reformatted images were created and reviewed. COMPARISON: No relevant prior studies available. FINDINGS: Limitations: Lack of intravenous contrast. Motion artifact - mild. Lower thorax: No acute findings. ABDOMEN: Liver: Unremarkable. Gallbladder and bile ducts: No calcified stones. No ductal dilation. Pancreas: Unremarkable. No ductal dilation. Spleen: Splenules or splenic remnants within left upper quadrant. Adrenals: No mass. Kidneys and ureters: Mild atrophy of kidneys. Minimal stranding about left kidney. Postsurgical changes of left kidney. No renal calculi. No hydronephrosis. Stomach and bowel: No definite mural thickening. No obstruction. Appendix: No findings to suggest acute appendicitis. PELVIS: Bladder: Unremarkable. No stones. Reproductive: Unremarkable as visualized. ABDOMEN and PELVIS: Intraperitoneal space: No significant fluid collection. No free air. Bones/joints: No acute fracture. Soft tissues: Unremarkable. Vasculature: Unremarkable. No aneurysm. Lymph nodes: No pathologically enlarged lymph nodes. Tubes, lines and devices: Abdominal catheter. IMPRESSION: 1. No definite acute intraabdominal abnormality. 2. Incidental/non-acute findings are described above.
[2017-12-16] MEDS ORDERED: Hydrocodone/Acetaminophen 5 mg /300 mg Tab PO STA (23:45)
[2017-12-16] MEDS ORDERED: Hydrocodone/Acetaminophen 5 mg /300 mg Tab PO ONE (23:48)
[2017-12-17] MEDS ORDERED: Sodium Chloride 0.9% 1,000 ML ONE (01:46)
[2017-12-17] MEDS: Sodium Chloride 0.9% 1,000 ML IV SCH ×3 (01:54→21:50)
[2017-12-17 02:43] LABS: BODY FLUID TYPE PERITONEAL/ASCITES
[2017-12-17 02:46] LABS: BF GROSS APPEARANCE SL CLOUDY (CLEAR); BODY FLUID MONO/MACROPHAGE 5 % (0-0); BODY FLUID TOTAL COUNT 100 (0-0)
--- NOTE | 2017-12-17 03:03 | CP.PCM.HP ---
<DonDee SClint - Last Filed: 12/17/17 02:57> History of Present Illness - History of Present Illness History of Present Illness: CC: "stomach pain" HPI: 31 year old male with past medical history of ESRD on HD, thrombocytopenia , HTN, and left sided hearing loss who presents to the Ed for abdominal pain. He states the pain is located in his right lower quadrant. He states the pain is about a 6/10, constant and does not radiate. He states the pain started today during dialysis which he gets every day at home. He states his last bowel movement was yesterday and it was small. He denies chest pain, palpitations, shortness of breath, nausea, vomiting, diarrhea or constipation. 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 absent: Constipation, Diarrhea, Hematochezia , Nausea, Vomiting - Genitourinary Genitourinary: absent: Dysuria - Musculoskeletal Musculoskeletal: absent: Numbness Past Patient History - Infectious Disease Hx of Infectious Diseases: None - Past Medical History & Family History Past Medical History?: Yes - Past Social History Smoking Status: Never Smoked - CARDIAC Hx Hypertension: Yes - PULMONARY Hx Respiratory Disorders: No - NEUROLOGICAL Hx Neurological Disorder: No - HEENT Hx HEENT Problems: Yes Hx Deafness: (uses hearing aide) Other/Comment: HEARING IMPAIRED - RENAL Hx Chronic Kidney Disease: Yes - ENDOCRINE/METABOLIC Hx Endocrine Disorders: No - HEMATOLOGICAL/ONCOLOGICAL Hx Blood Disorders: Yes Other/Comment: Thrombocytopenia - INTEGUMENTARY Hx Dermatological Problems: No - MUSCULOSKELETAL/RHEUMATOLOGICAL Hx Musculoskeletal Disorders: No - GASTROINTESTINAL Hx Gastrointestinal Disorders: No - GENITOURINARY/GYNECOLOGICAL Hx Genitourinary Disorders: No - PSYCHIATRIC Hx Substance Use: No - SURGICAL HISTORY Hx Surgeries: Yes Other/Comment: peritoneal dialysis catheter 05/2017 - ANESTHESIA Hx Anesthesia: Yes Hx Anesthesia Reactions: No Hx Malignant Hyperthermia: No Meds Allergies/Adverse Reactions: Allergies Allergy/AdvReac Type Severity Reaction Status Date / Time aspirin AdvReac ANAPHYLAXIS Verified 12/16/17 21:27 Physical Exam - Constitutional Appears: No Acute Distress - Head Exam Head Exam: ATRAUMATIC, NORMAL INSPECTION - Eye Exam Eye Exam: EOMI, Normal appearance - ENT Exam ENT Exam: Mucous Membranes Moist - Respiratory Exam Respiratory Exam: Clear to Auscultation Bilateral, NORMAL BREATHING PATTERN. absent: Rales, Rhonchi, Wheezes - Cardiovascular Exam Cardiovascular Exam: REGULAR RHYTHM, +S1, +S2 - GI/Abdominal Exam GI & Abdominal Exam: Normal Bowel Sounds, Soft, Tenderness (RLQ). absent: Distended, Firm, Guarding Additional comments: peritoneal dialysis catheter in place - clean/dry/intact - Extremities Exam Extremities exam: Positive for: normal inspection. Negative for: pedal edema, tenderness - Neurological Exam Neurological exam: Alert, CN II-XII Intact, Oriented x3 - Psychiatric Exam Psychiatric exam: Normal Affect, Normal Mood - Skin Skin Exam: Dry, Intact, Normal Color, Warm Results - Vital Signs Recent Vital Signs: Last Vital Signs Temp 97.7 F 12/17/17 02:47 Pulse 58 L 12/17/17 02:47 Resp 18 12/17/17 02:47 BP 170/93 H 12/17/17 02:47 Pulse Ox 99 12/17/17 02:47 - Labs Result Diagrams: 12/16/17 22:31 12/16/17 22:31 Labs: Laboratory Results - last 24 hr 12/16/17 12/16/17 12/17/17 22:31 22:31 00:16 WBC 20.4 H D RBC 4.14 L Hgb 12.7 Hct 37.6 MCV 91.0 MCH 30.6 MCHC 33.7 RDW 14.1 Plt Count 5 L* MPV 11.1 Neut % (Auto) 61.8 Lymph % (Auto) 23.1 [place] % (Auto) 11.3 H Eos % (Auto) 2.8 Baso % (Auto) 1.0 Neut # (Auto) 12.6 H Lymph # (Auto) 4.7 H [place] # (Auto) 2.3 H Eos # (Auto) 0.6 Baso # (Auto) 0.2 Differential Comment Sodium 137 Potassium 5.4 H Chloride 104 Carbon Dioxide 21 L Anion Gap 18 BUN 38 H Creatinine 5.8 H Est GFR ( Amer) 14 Est GFR (Non-Af Amer) 11 Random Glucose 95 Calcium 8.9 Total Bilirubin 0.4 AST 48 ALT 94 H D Alkaline Phosphatase 159 H Total Protein 6.9 Albumin 3.8 Globulin 3.1 Albumin/Globulin Ratio 1.2 Fluid Source Peritoneal/ascites Fluid Appearance Sl cloudy Fluid WBC 112.0 Fluid RBC 8.0 H Fluid Tot Cell Count 100 H Fluid Neutrophils 86.0 H Fluid Lymphocytes 9.0 H Fld Monocyte/Macrophag 5 H Assessment & Plan - Assessment and Plan (Free Text) Plan: 1.) Abdominal Pain: - CT Abd/pelvis: No definite acute intraabdominal abnormality. - f/u blood culture - f/u wound culture from peritoneal drain - Ceftriaxone 1gm q12h - Tylenol 650mg prn for pain - NS @100cc/hr - NPO 2.) ESRD on peritoneal dialysis - Nephrology consulted: Dr Villasenor --> help appreciated 3.) Hemolytic uremic syndrome -Consult heme/onc Dr Benites if needed -Monitor 4.) Hypertension -Continue home medication: clondidine 0.2mg po bid 6.) Prophylaxis - protonix 40mg po q12h - florastor 250mg po daily - scd - thrombocytopenic - no anticoagulation needed Case discussed with Dr. Indira Ochoa PGY-1 <Michael Jacobson - Last Filed: 12/17/17 06:21> Results - Vital Signs Recent Vital Signs: Last Vital Signs Temp 97.7 F 12/17/17 03:06 Pulse 59 L 12/17/17 03:06 Resp 20 12/17/17 03:06 BP 116/79 12/17/17 03:06 Pulse Ox 98 12/17/17 03:06 - Labs Result Diagrams: 12/16/17 22:31 12/16/17 22:31 Labs: Laboratory Results - last 24 hr 12/16/17 12/16/17 12/17/17 22:31 22:31 00:16 WBC 20.4 H D RBC 4.14 L Hgb 12.7 Hct 37.6 MCV 91.0 MCH 30.6 MCHC 33.7 RDW 14.1 Plt Count 5 L* MPV 11.1 Neut % (Auto) 61.8 Lymph % (Auto) 23.1 [place] % (Auto) 11.3 H Eos % (Auto) 2.8 Baso % (Auto) 1.0 Neut # (Auto) 12.6 H Lymph # (Auto) 4.7 H [place] # (Auto) 2.3 H Eos # (Auto) 0.6 Baso # (Auto) 0.2 Differential Comment Sodium 137 Potassium 5.4 H Chloride 104 Carbon Dioxide 21 L Anion Gap 18 BUN 38 H Creatinine 5.8 H Est GFR ( Amer) 14 Est GFR (Non-Af Amer) 11 Random Glucose 95 Calcium 8.9 Total Bilirubin 0.4 AST 48 ALT 94 H D Alkaline Phosphatase 159 H Total Protein 6.9 Albumin 3.8 Globulin 3.1 Albumin/Globulin Ratio 1.2 Fluid Source Peritoneal/ascites Fluid Appearance Sl cloudy Fluid WBC 112.0 Fluid RBC 8.0 H Fluid Tot Cell Count 100 H Fluid Neutrophils 86.0 H Fluid Lymphocytes 9.0 H Fld Monocyte/Macrophag 5 H Fluid Comment Assessment & Plan - Date & Time Date: 12/17/17 (I have seen and examined the patient. I agree with the findings and plan of care as documented by Dr. Ochoa. Patient with abdominal pain. CT done. Also with ESRD on peritoneal dialysis. Consult to nephro. Concern for SBP. Rocephin for now. Symptomatic treatment. Monitor for acute changes.) Time: 06:20 Attending/Attestation - Attestation I have personally seen and examined this patient.: Yes I have fully participated in the care of the patient.: Yes I have reviewed all pertinent clinical information: Yes
[2017-12-17 10:00] LABS: SQUAMOUS EPITHIAL < 1 /hpf (0-5); URINE BILIRUBIN NEGATIVE (NEGATIVE); URINE BLOOD NEGATIVE (NEGATIVE); URINE CLARITY Clear (Clear); URINE COLOR Straw (YELLOW); URINE GLUCOSE (UA) NORMAL (Normal); URINE LEUKOCYTE ESTERASE NEG Leu/uL (Negative); URINE NITRATE NEGATIVE (NEGATIVE); URINE PROTEIN 1+ mg/dL (NEGATIVE); URINE UROBILINOGEN NORMAL mg/dL (0.2-1.0)
--- NOTE | 2017-12-17 10:36 | CP.PCM.CON ---
History of Present Illness - History of Present Illness History of Present Illness: 31 year old male with past medical history of ESRD on HD, thrombocytopenia, atypical HUS , HTN, and left sided hearing loss who presents to the Ed for abdominal pain. He describes pain all over abdomen. He states the pain is about a 6/10, constant and does not radiate. He states the pain started yesterday during dialysis . He states his last bowel movement was yesterday . He denies chest pain, palpitations, shortness of breath, nausea, vomiting, diarrhea or constipation. 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) Allergies: Aspirin - rash/nausea Social History: denies smoking, denies alocohol use, denies illicit drug use Family History: denies Review of Systems - Review of Systems Review of Systems: as per HPI, other than taht 10 point ROS negative Past Patient History - Infectious Disease Hx of Infectious Diseases: None - Past Medical History & Family History Past Medical History?: Yes - Past Social History Smoking Status: Never Smoked - CARDIAC Hx Hypertension: Yes - PULMONARY Hx Respiratory Disorders: No - NEUROLOGICAL Hx Neurological Disorder: No - HEENT Hx HEENT Problems: Yes Hx Deafness: (uses hearing aide) Other/Comment: HEARING IMPAIRED - RENAL Hx Chronic Kidney Disease: Yes - ENDOCRINE/METABOLIC Hx Endocrine Disorders: No - HEMATOLOGICAL/ONCOLOGICAL Hx Blood Disorders: Yes Other/Comment: Thrombocytopenia - INTEGUMENTARY Hx Dermatological Problems: No - MUSCULOSKELETAL/RHEUMATOLOGICAL Hx Musculoskeletal Disorders: No - GASTROINTESTINAL Hx Gastrointestinal Disorders: No - GENITOURINARY/GYNECOLOGICAL Hx Genitourinary Disorders: No - PSYCHIATRIC Hx Substance Use: No - SURGICAL HISTORY Hx Surgeries: Yes Other/Comment: peritoneal dialysis catheter 05/2017 - ANESTHESIA Hx Anesthesia: Yes Hx Anesthesia Reactions: No Hx Malignant Hyperthermia: No Meds Allergies/Adverse Reactions: Allergies Allergy/AdvReac Type Severity Reaction Status Date / Time aspirin AdvReac ANAPHYLAXIS Verified 12/16/17 21:27 - Medications Medications: Current Medications Acetaminophen (Tylenol 325mg Tab) 650 mg PO Q6 PRN PRN Reason: Pain, moderate (4-7) Last Admin: 12/17/17 01:53 Dose: 650 mg Clonidine HCl (Catapres) 0.2 mg PO BID [facility] Sodium Chloride (Sodium Chloride 0.9%) 1,000 mls @ 100 mls/hr IV .Q10H [facility] Last Admin: 12/17/17 01:54 Dose: 100 mls/hr Pantoprazole Sodium (Protonix Inj) 40 mg IVP Q12H [facility] Last Admin: 12/17/17 01:54 Dose: 40 mg Saccharomyces Boulardii (Florastor) 250 mg PO DAILY [facility] Physical Exam - Constitutional Appears: Well, Non-toxic - Head Exam Head Exam: ATRAUMATIC, NORMOCEPHALIC - Eye Exam Eye Exam: EOMI, PERRL - ENT Exam ENT Exam: Mucous Membranes Moist Additional comments: hearing aid left ear - Neck Exam Neck exam: Positive for: Full Rom - Respiratory Exam Respiratory Exam: Clear to Auscultation Bilateral. absent: Rhonchi, Wheezes - Cardiovascular Exam Cardiovascular Exam: REGULAR RHYTHM, +S1, +S2 - GI/Abdominal Exam GI & Abdominal Exam: Soft, Tenderness Additional comments: no rebound or guarding, PD catheter LLQ - Extremities Exam Extremities exam: Positive for: full ROM. Negative for: pedal edema - Neurological Exam Neurological exam: Alert, Oriented x3 - Psychiatric Exam Psychiatric exam: Normal Affect, Normal Mood - Skin Skin Exam: Dry, Warm Results - Vital Signs Recent Vital Signs: Last Vital Signs Temp 97.7 F 12/17/17 07:00 Pulse 57 L 12/17/17 07:00 Resp 20 12/17/17 07:00 BP 97/68 L 12/17/17 07:00 Pulse Ox 98 12/17/17 07:00 - Labs Result Diagrams: 12/16/17 22:31 12/16/17 22:31 Labs: Laboratory Results - last 24 hr 12/16/17 12/16/17 12/17/17 22:31 22:31 00:16 WBC 20.4 H D RBC 4.14 L Hgb 12.7 Hct 37.6 MCV 91.0 MCH 30.6 MCHC 33.7 RDW 14.1 Plt Count 5 L* MPV 11.1 Neut % (Auto) 61.8 Lymph % (Auto) 23.1 [place] % (Auto) 11.3 H Eos % (Auto) 2.8 Baso % (Auto) 1.0 Neut # (Auto) 12.6 H Lymph # (Auto) 4.7 H [place] # (Auto) 2.3 H Eos # (Auto) 0.6 Baso # (Auto) 0.2 Differential Comment Sodium 137 Potassium 5.4 H Chloride 104 Carbon Dioxide 21 L Anion Gap 18 BUN 38 H Creatinine 5.8 H Est GFR ( Amer) 14 Est GFR (Non-Af Amer) 11 Random Glucose 95 Lactic Acid Calcium 8.9 Total Bilirubin 0.4 AST 48 ALT 94 H D Alkaline Phosphatase 159 H Total Protein 6.9 Albumin 3.8 Globulin 3.1 Albumin/Globulin Ratio 1.2 Urine Color Urine Clarity Urine pH Ur Specific [place] Urine Protein Urine Glucose (UA) Urine Ketones Urine Blood Urine Nitrate Urine Bilirubin Urine Urobilinogen Ur Leukocyte Esterase Urine WBC (Auto) Ur Squamous Epith Cells Fluid Source Peritoneal/ascites Fluid Appearance Sl cloudy Fluid WBC 112.0 Fluid RBC 8.0 H Fluid Tot Cell Count 100 H Fluid Neutrophils 86.0 H Fluid Lymphocytes 9.0 H Fld Monocyte/Macrophag 5 H Fluid Comment 12/17/17 12/17/17 09:42 09:47 WBC RBC Hgb Hct MCV MCH MCHC RDW Plt Count MPV Neut % (Auto) Lymph % (Auto) [place] % (Auto) Eos % (Auto) Baso % (Auto) Neut # (Auto) Lymph # (Auto) [place] # (Auto) Eos # (Auto) Baso # (Auto) Differential Comment Sodium Potassium Chloride Carbon Dioxide Anion Gap BUN Creatinine Est GFR ( Amer) Est GFR (Non-Af Amer) Random Glucose Lactic Acid 1.0 Calcium Total Bilirubin AST ALT Alkaline Phosphatase Total Protein Albumin Globulin Albumin/Globulin Ratio Urine Color Straw Urine Clarity Clear Urine pH 7.0 Ur Specific [place] 1.008 Urine Protein 1+ H Urine Glucose (UA) Normal Urine Ketones Negative Urine Blood Negative Urine Nitrate Negative Urine Bilirubin Negative Urine Urobilinogen Normal Ur Leukocyte Esterase Neg Urine WBC (Auto) < 1 Ur Squamous Epith Cells < 1 Fluid Source Fluid Appearance Fluid WBC Fluid RBC Fluid Tot Cell Count Fluid Neutrophils Fluid Lymphocytes Fld Monocyte/Macrophag Fluid Comment Assessment & Plan (1) Spontaneous bacterial peritonitis Status: Acute (2) Anemia Status: Acute (3) Atypical hemolytic uremic syndrome Status: Acute (4) ESRD (end stage renal disease) on dialysis Status: Acute (5) Hypertension Status: Chronic - Assessment and Plan (Free Text) Plan: send PD fluid for culture got iv ceftriaxone will give iv vanco one dose resume PD- 5 cycles await culutre of PD fluid check blood and urine culture as well
[2017-12-17] MEDS: Saccharomyces Boulardi 250 mg Cap PO SCH (10:41)
[2017-12-17] MEDS ORDERED: Vancomycin 1 gm/NS 200 ml 1 GM/200 ML BAG IVPB STA (10:51)
--- NOTE | 2017-12-17 13:01 | CP.PCM.PN ---
Addendum entered and electronically signed by Germania Griffith DO 12/17/17 13:09: Dr. Deirdre RODRIGUES consulted, help appreciated Original Note: <Germania Griffith - Last Filed: 12/17/17 12:53> Subjective - Date & Time of Evaluation Date of Evaluation: 12/17/17 Time of Evaluation: 09:00 - Subjective Subjective: PGY [address] note for [address] Quinones: Patient was seen and examined at bedside this morning. Patient was complaining of abdominal pain which started last night. He denied fever/chills, nausea, vomiting, chest pain, SOB, signs of bleeding. He states that he has also has dysuria with the little urine that he still produces. Denies hematuria, testicular pain, or penile discharge. Patient is on peritoneal dialysis treatment per nephrology. He denies tenderness or discharge from the site of the catheter. Patient is currently seeing Dr. Benites outpatient for management of his atypical HUS. His last dose of Soliris infusion was last (Dec 08 ). Patient was given a ref to see a specialist in this condition but states he called but at this moment does not have enough money to pay to see this specialist. He states his cousins are trying to help him with the cost so that he can travel and see this specialist. Also He states that he feels "something" enlarging on the right side of his neck. He stated many years ago this was biopsied in [place] and treated and went away. Now he said it is coming back. Objective - Vital Signs/Intake and Output Vital Signs (last 24 hours): Temp Pulse Resp BP Pulse Ox 97.7 F 57 L 20 97/68 L 98 12/17/17 07:00 12/17/17 07:00 12/17/17 07:00 12/17/17 07:00 12/17/17 07:00 - Medications Medications: Current Medications Acetaminophen (Tylenol 325mg Tab) 650 mg PO Q6 PRN PRN Reason: Pain, moderate (4-7) Last Admin: 12/17/17 01:53 Dose: 650 mg Sodium Chloride (Sodium Chloride 0.9%) 1,000 mls @ 100 mls/hr IV .Q10H [facility] Last Admin: 12/17/17 12:46 Dose: 100 mls/hr Pantoprazole Sodium (Protonix Inj) 40 mg IVP Q12H [facility] Last Admin: 12/17/17 12:45 Dose: 40 mg Saccharomyces Boulardii (Florastor) 250 mg PO DAILY [facility] Last Admin: 12/17/17 10:41 Dose: 250 mg - Labs Labs: 12/16/17 22:31 12/16/17 22:31 - Constitutional Appears: Non-toxic, No Acute Distress - Head Exam Head Exam: ATRAUMATIC, NORMAL INSPECTION - Eye Exam Eye Exam: EOMI - ENT Exam ENT Exam: Mucous Membranes Moist - Neck Exam Neck Exam: Lymphadenopathy - Respiratory Exam Respiratory Exam: Clear to Ausculation Bilateral, NORMAL BREATHING PATTERN. absent: Respiratory Distress - Cardiovascular Exam Cardiovascular Exam: REGULAR RHYTHM, +S1, +S2 - GI/Abdominal Exam GI & Abdominal Exam: Soft, Tenderness, Normal Bowel Sounds (tednerness more RLQ) . absent: Distended, Firm, Guarding Additional comments: mild erythema around perotineal dialysis cathether, no discharge present - Extremities Exam Extremities Exam: Normal Inspection. absent: Calf Tenderness - Back Exam Back Exam: NORMAL INSPECTION - Neurological Exam Neurological Exam: Alert, Awake, CN II-XII Intact, Oriented x3 Neuro motor strength exam: Left Upper Extremity: 5, Right Upper Extremity: 5, Left Lower Extremity: 5, Right Lower Extremity: 5 - Psychiatric Exam Psychiatric exam: Normal Affect, Normal Mood - Skin Skin Exam: Dry, Intact, Normal Color, Warm Assessment and Plan - Assessment and Plan (Free Text) Assessment: Abdominal Pain - CT Abd/pelvis: No definite acute intraabdominal abnormality. - f/u Abdominal US - f/u blood culture - f/u wound culture from peritoneal drain - f/u body fluid culture from peritoneal fluid to rule out SBP - Ceftriaxone 1gm q12h - Tylenol 650mg prn for pain - NS @100cc/hr - NPO Leukocytosis - WBC 20.4 - afebrile - f/u cultures as mentioned above - UA wnl - f/u chest X ray - Lactic acid 1 - f/u procalcitonin ESRD on peritoneal dialysis - Nephrology consulted: Dr Villasenor --> help appreciated - Continue perotineal dialysis - Will get doses of Vancomycin (1 gram) and Gentamicin (80mg) with dialysis Hemolytic uremic syndrome -Dr. Benites consulted, help appreciated - On Soliris treatment -Monitor - Platelets 5 (no sings of bleeding) Hypertension -Will hold home clonidine. Patient's BP is controlled Prophylaxis - protonix 40mg po q12h - florastor 250mg po daily - scd - thrombocytopenic - no anticoagulation needed - Patient is NPO at this time All management per Dr. Quinones. Germania Griffith PGY 2 <Odette Quinones V - Last Filed: 12/17/17 14:42> Objective - Vital Signs/Intake and Output Vital Signs (last 24 hours): Temp Pulse Resp BP Pulse Ox 97.7 F 57 L 20 97/68 L 98 12/17/17 07:00 12/17/17 07:00 12/17/17 07:00 12/17/17 07:00 12/17/17 07:00 - Medications Medications: Current Medications Acetaminophen (Tylenol 325mg Tab) 650 mg PO Q6 PRN PRN Reason: Pain, moderate (4-7) Last Admin: 12/17/17 01:53 Dose: 650 mg Sodium Chloride (Sodium Chloride 0.9%) 1,000 mls @ 100 mls/hr IV .Q10H [facility] Last Admin: 12/17/17 12:46 Dose: 100 mls/hr Pantoprazole Sodium (Protonix Inj) 40 mg IVP Q12H [facility] Last Admin: 12/17/17 12:45 Dose: 40 mg Saccharomyces Boulardii (Florastor) 250 mg PO DAILY [facility] Last Admin: 12/17/17 10:41 Dose: 250 mg - Labs Labs: 12/16/17 22:31 12/16/17 22:31 Attending/Attestation - Attestation I have personally seen and examined this patient.: Yes I have fully participated in the care of the patient.: Yes I have reviewed all pertinent clinical information, including history, physical exam and plan: Yes Notes (Text): Patient seen, examined and case discussed with day-time resident. Patient seen at bedside with the assistance of indemand bass singer Homer Parker ID number: Patient known to the hospitalist service for initial diagnosis of his atypical HUS requiring Solaris medication. patient reports last dose about two ago. Patient was started on peritoneal dialysis about 6-7 months ago. patient reports he does his dialysis every day at home. Patient reports he was instructed by the nurse how to do dialysis. Patient reports abdominal pain starting in the right lower quadrant starting last night. Denies nausea. denies vomitting, Reports pain scale about 6-7/10 on pain scale. patient reports the past week he has been having dysuria, denies hematuria. Patient reports he has an enlarged mass over the right side of his neck which has been bothering him since last Tuesday. patient reports when he used to live in [place], he had it biopsy and reports he had some type of infection. Patient denies any bleeding episodes, denies rash, denies headaches. Patient denies fever, denies chills, denies sore throat. patient is hard of hearing requires hearing aid over left ear. Infectious disease, nephrology, and hematology on the case. Assessment/Plan 1) Abdominal Pain * CT Abd/pelvis (no contrast): No definite acute intraabdominal abnormality. * f/u Abdominal US (12/17/2017) reason: right lower quadrant pain * Infectious Disease (Dr. Gilmore) on the case-->help appreciated * Nephrology (Dr. Villasenor) on the case-->help appreciated * Peritoneal dialysis-->orders per nephrology * Patient had received Rocephin 1 gram IVPB Q12 (received dose today) and Vancomycin 1 gram IV stat (12/17/17) 2) Leukocytosis Dysuria * Infectious Disease (Dr. Gilmore) on the case-->help appreciated * Hematology-oncology (Dr. Reid Benites) on the case--> help appreciated * WBC: 20.4 * Afebrile * Lactic acid: 1.0 * Blood cultures (12/17/17): received * Body Fluid Cult (12/17/17) * Fungus culture (12/17/17) * UA negative * Urine culture (12/17/17) * Anaerobic Culture (12/17/17) * procalcitionin pending * Patient had received Rocephin 1 gram IVPB Q12 (received dose today) and Vancomycin 1 gram IV stat (12/17/17) * Fluid studies collected-->Will consider possible SBP * c/w Tylenol 650mg prn for pain * c/w NS @100cc/hr * NPO for Abdominal US 3) ESRD on peritoneal dialysis Nephrotic Syndrome * Nephrology consulted: Dr Villasenor --> help appreciated * Continue peritoneal dialysis * Patient started about 6-7 months ago 4) Atypical-Hemolytic uremic syndrome * Hematology-oncology (Dr. Reid Benites) on the case--> help appreciated * Per last admission: Renal biopsy: thrombotic microangiopathy, vascular nephrosclerosis, global and segmental glomerulosclerosis, intact linear glomeruar and distal tubular basement * Patient is currently on Soliris (Eculuazmab) * On Soliris treatment (last dose 12/08/17) * Platelets 5 (no signs of bleeding) 5) Hypertension * History of * Hold Clonidine given hypotension * Patient is NS 100cc/hr 6) Prophylaxis * Protonix 40mg po daily * Florastor 250mg po BID * SCD * Thrombocytopenic - no chemical anticoagulation needed * Patient is NPO at this time * Hard of hearing (hearing aid) Disposition: * Order for chest xray r/o infection * Order for abdominal US given right lower quadrant pain * ID, Nephrology, and Hematology consult
--- NOTE | 2017-12-17 14:27 | RAD ---
HISTORY: r/o pneumonia COMPARISON: Comparison chest dated 07/15/2017 FINDINGS: Interval removal right IJ large-bore dual-lumen dialysis catheter LUNGS: Minor bibasilar atelectasis. PLEURA: No significant pleural effusion identified, no pneumothorax apparent. CARDIOVASCULAR: Heart size upper limits of normal. Aorta is slightly ectatic and uncoiled. OSSEOUS STRUCTURES: No significant abnormalities. VISUALIZED UPPER ABDOMEN: Normal. OTHER FINDINGS: None. IMPRESSION: Mild bibasilar atelectasis.
--- NOTE | 2017-12-17 16:34 | US ---
HISTORY: Right lower quadrant abdominal pain. COMPARISON: None. TECHNIQUE: Sonographic evaluation of the abdomen. FINDINGS: LIVER: Liver measures approximately 15.7 cm in CC dimension. Liver demonstrates smooth contour and normal echogenicity of the liver parenchyma. No mass. No intrahepatic bile duct dilatation. GALLBLADDER: Gallbladder is physiologically distended. No evidence of intraluminal gallbladder calculi. No pericholecystic fluid collections or sonographic Robb sign. COMMON BILE DUCT: CBD measures approximately 3.2 mm. No stones. No dilatation. PANCREAS: Pancreas is poorly delineated due to body habitus and bowel gas. . RIGHT KIDNEY: Right kidney measures approximately 9.2 x 4.0 x 4.5 cmcm. Kidney demonstrates increased echotexture ; rule out underlying medical renal disease measures. . . There is a mid-lower pole cyst measures approximate 1.3 cm in greatest dimension. There is also a small approximately 5 mm echogenic focus within the lower pole lower right kidney of uncertain etiology. No obvious calcification identified in this location on prior study. . LEFT KIDNEY: Left kidney measures approximate 8.7 x 4.8 x 4.6cm. Multiple metallic densities which could represent metallic sutures or possibly embolization coils within the lower pole left kidney seen on prior CT scan of the abdomen pelvis not appreciated on this study. Left kidney exhibits increased echogenicity; rule out underlying medical renal disease echogenicity. No calculus, mass, or hydronephrosis. SPLEEN: Several of small splenic remnants or splenules left upper quadrant of the abdomen are not visualized on this examination due to overlying bowel gas AORTA: No aneurysmal dilatation. IVC: Unremarkable. OTHER FINDINGS: None. IMPRESSION: Kidneys exhibit echogenic parenchyma ; rule out underlying medical renal disease. Small lower pole cyst right kidney. No evidence of hydronephrosis. Multiple metallic densities located in the lower pole left kidney seen on prior CT scan not appreciated on this study. Several small splenic remnants or splenules left upper quadrant of the abdomen poorly seen on this exam. Please refer to CT scan of the abdomen and pelvis.
--- NOTE | 2017-12-17 22:14 | CP.PCM.CON ---
History of Present Illness - History of Present Illness History of Present Illness: dictated Past Patient History - Infectious Disease Hx of Infectious Diseases: None - Past Medical History & Family History Past Medical History?: Yes - Past Social History Smoking Status: Never Smoked - CARDIAC Hx Hypertension: Yes - PULMONARY Hx Respiratory Disorders: No - NEUROLOGICAL Hx Neurological Disorder: No - HEENT Hx HEENT Problems: Yes Hx Deafness: (uses hearing aide) Other/Comment: HEARING IMPAIRED - RENAL Hx Chronic Kidney Disease: Yes - ENDOCRINE/METABOLIC Hx Endocrine Disorders: No - HEMATOLOGICAL/ONCOLOGICAL Hx Blood Disorders: Yes Other/Comment: Thrombocytopenia - INTEGUMENTARY Hx Dermatological Problems: No - MUSCULOSKELETAL/RHEUMATOLOGICAL Hx Musculoskeletal Disorders: No - GASTROINTESTINAL Hx Gastrointestinal Disorders: No - GENITOURINARY/GYNECOLOGICAL Hx Genitourinary Disorders: No - PSYCHIATRIC Hx Substance Use: No - SURGICAL HISTORY Hx Surgeries: Yes Other/Comment: peritoneal dialysis catheter 05/2017 - ANESTHESIA Hx Anesthesia: Yes Hx Anesthesia Reactions: No Hx Malignant Hyperthermia: No Meds Allergies/Adverse Reactions: Allergies Allergy/AdvReac Type Severity Reaction Status Date / Time aspirin AdvReac ANAPHYLAXIS Verified 12/16/17 21:27 - Medications Medications: Current Medications Acetaminophen (Tylenol 325mg Tab) 650 mg PO Q6 PRN PRN Reason: Pain, moderate (4-7) Last Admin: 12/17/17 20:10 Dose: 650 mg Sodium Chloride (Sodium Chloride 0.9%) 1,000 mls @ 100 mls/hr IV .Q10H [facility] Last Admin: 12/17/17 12:46 Dose: 100 mls/hr Ceftazidime 1 gm/ Sodium (Chloride) 100 mls @ 100 mls/hr IV Q24H [facility] Last Admin: 12/17/17 19:00 Dose: 100 mls/hr Pantoprazole Sodium (Protonix Inj) 40 mg IVP Q12H [facility] Last Admin: 12/17/17 12:45 Dose: 40 mg Saccharomyces Boulardii (Florastor) 250 mg PO DAILY [facility] Last Admin: 12/17/17 10:41 Dose: 250 mg Results - Vital Signs Recent Vital Signs: Last Vital Signs Temp 97.7 F 12/17/17 15:55 Pulse 69 12/17/17 15:55 Resp 20 12/17/17 15:55 BP 143/88 12/17/17 15:55 Pulse Ox 100 12/17/17 15:55 - Labs Result Diagrams: 12/16/17 22:31 12/16/17 22:31 Labs: Laboratory Results - last 24 hr 12/16/17 12/16/17 12/17/17 22:31 22:31 00:16 WBC 20.4 H D RBC 4.14 L Hgb 12.7 Hct 37.6 MCV 91.0 MCH 30.6 MCHC 33.7 RDW 14.1 Plt Count 5 L* MPV 11.1 Neut % (Auto) 61.8 Lymph % (Auto) 23.1 [place] % (Auto) 11.3 H Eos % (Auto) 2.8 Baso % (Auto) 1.0 Neut # (Auto) 12.6 H Lymph # (Auto) 4.7 H [place] # (Auto) 2.3 H Eos # (Auto) 0.6 Baso # (Auto) 0.2 Differential Comment Sodium 137 Potassium 5.4 H Chloride 104 Carbon Dioxide 21 L Anion Gap 18 BUN 38 H Creatinine 5.8 H Est GFR ( Amer) 14 Est GFR (Non-Af Amer) 11 Random Glucose 95 Lactic Acid Calcium 8.9 Total Bilirubin 0.4 AST 48 ALT 94 H D Alkaline Phosphatase 159 H Total Protein 6.9 Albumin 3.8 Globulin 3.1 Albumin/Globulin Ratio 1.2 Procalcitonin Urine Color Urine Clarity Urine pH Ur Specific [place] Urine Protein Urine Glucose (UA) Urine Ketones Urine Blood Urine Nitrate Urine Bilirubin Urine Urobilinogen Ur Leukocyte Esterase Urine WBC (Auto) Ur Squamous Epith Cells Fluid Source Peritoneal/ascites Fluid Appearance Sl cloudy Fluid WBC 112.0 Fluid RBC 8.0 H Fluid Tot Cell Count 100 H Fluid Neutrophils 86.0 H Fluid Lymphocytes 9.0 H Fld Monocyte/Macrophag 5 H Fluid Comment 12/17/17 12/17/17 12/17/17 09:42 09:47 09:48 WBC RBC Hgb Hct MCV MCH MCHC RDW Plt Count MPV Neut % (Auto) Lymph % (Auto) [place] % (Auto) Eos % (Auto) Baso % (Auto) Neut # (Auto) Lymph # (Auto) [place] # (Auto) Eos # (Auto) Baso # (Auto) Differential Comment Sodium Potassium Chloride Carbon Dioxide Anion Gap BUN Creatinine Est GFR ( Amer) Est GFR (Non-Af Amer) Random Glucose Lactic Acid 1.0 Calcium Total Bilirubin AST ALT Alkaline Phosphatase Total Protein Albumin Globulin Albumin/Globulin Ratio Procalcitonin 0.43 Urine Color Straw Urine Clarity Clear Urine pH 7.0 Ur Specific [place] 1.008 Urine Protein 1+ H Urine Glucose (UA) Normal Urine Ketones Negative Urine Blood Negative Urine Nitrate Negative Urine Bilirubin Negative Urine Urobilinogen Normal Ur Leukocyte Esterase Neg Urine WBC (Auto) < 1 Ur Squamous Epith Cells < 1 Fluid Source Fluid Appearance Fluid WBC Fluid RBC Fluid Tot Cell Count Fluid Neutrophils Fluid Lymphocytes Fld Monocyte/Macrophag Fluid Comment
[2017-12-17] MEDS ORDERED: Morphine 4 MG/ML VIAL IV ONE ×2 (22:45→23:36)
[2017-12-18] MEDS ORDERED: HYDROmorphone 0.5 mg/0.5 ml ISec IVP ONE (01:24)
[2017-12-18] MEDS ORDERED: cefTRIAXone IV 1 gm in Dextros 50 ML IVPB SCH (03:00)
--- NOTE | 2017-12-18 04:40 | CT ---
EXAM: CT Abdomen and Pelvis Without Intravenous Contrast CLINICAL HISTORY: 31 years old, male; Pain; Abdominal pain; Epigastric; Additional info: Repeat; Abdominal pain TECHNIQUE: Axial computed tomography images of the abdomen and pelvis without intravenous contrast. All CT scans at this facility use one or more dose reduction techniques, viz.: automated exposure control; ma/kV adjustment per patient size (including targeted exams where dose is matched to indication; i.e. head); or iterative reconstruction technique. Coronal and sagittal reformatted images were created and reviewed. COMPARISON: CT - ABD PELVIS W/O PO OR IV CONT 2017-12-16 23:22 FINDINGS: Limitations: Lack of intravenous contrast. Motion artifact - mild. Lower thorax: No acute findings. ABDOMEN: Liver: Unremarkable. Gallbladder and bile ducts: No calcified stones. No ductal dilation. Pancreas: Unremarkable. No ductal dilation. Spleen: Splenules or splenic remnants within left upper quadrant. Adrenals: No mass. Kidneys and ureters: Minimal stranding about left kidney, stable. Mild atrophy of kidneys. Postsurgical changes of left kidney. No renal calculi. No hydronephrosis. Stomach and bowel: No definite mural thickening. No obstruction. Appendix: Normal caliber. No inflammation. PELVIS: Bladder: Unremarkable. No stones. Reproductive: Unremarkable as visualized. ABDOMEN and PELVIS: Intraperitoneal space: Mild stranding/fluid within pelvis without distal portion of catheter. No free air. Bones/joints: No acute fracture. Soft tissues: Unremarkable. Vasculature: See above. Lymph nodes: No pathologically enlarged lymph nodes. Tubes, lines and devices: Abdominal catheter. IMPRESSION: 1. No definite acute intracranial abnormality. 2. Mild stranding/fluid within pelvis about catheter which may be related to recent dialysis. 3. Incidental/non-acute findings are described above.
[2017-12-18] MEDS: Sodium Chloride 0.9% 1,000 ML IV SCH ×3 (07:51→23:55)
--- NOTE | 2017-12-18 08:17 | CON ---
DATE: HISTORY OF PRESENT ILLNESS: This patient is a 31-year-old male. He does speak Peruvian and he is hard of hearing with left ear hearing loss, and he had a hearing aid, but still with the hearing aid and speaking little bit Peruvian, he was not understanding much. He has history of end-stage renal disease, on hemodialysis, low platelets, hypertension. He was admitted where he was complaining of lower abdominal pain. He said it was 6/10 and right now it got a little better. He says that it only hurts when somebody presses. He states his last bowel movement was yesterday and he has a peritoneal dialysis catheter present. He started to have pain yesterday during dialysis. He denies any shortness of breath. No cough. No cold. No trouble breathing. No palpitations. No nausea. No vomiting. No diarrhea. He has end-stage renal disease and he is on dialysis, peritoneal dialysis catheter was placed in 05/2017. He had a renal biopsy in 03/2017. 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 ALLERGIES: HE IS ALLERGIC TO ASPIRIN. SOCIAL HISTORY: Negative for smoking or drinking or any drug abuse. FAMILY HISTORY: Noncontributory. PAST MEDICAL HISTORY: Negative. REVIEW OF SYSTEMS: He has no chills. No headache. No night sweats. No other complaints except abdominal pain, and he is a dialysis patient and does peritoneal dialysis. PHYSICAL EXAMINATION: GENERAL: I find he was hungry when I saw him this evening, and he said he has not eaten for 2 days as he was n.p.o. VITAL SIGNS: T-max was 97.7, pulse 57. Blood pressure 97/68, he had a blood pressure of 170/93 at 2 o'clock, but at 7 he has this. Respirations are 20. HEENT: Head is atraumatic. He has a hearing aid. Pupils are reacting to light. NECK: Supple. JVP is flat. LUNGS: Clear. No crackles or rales present. HEART: S1, S2. Regular. ABDOMEN: Soft. It hurts on palpation, he says. He has a peritoneal dialysis catheter which appeared fine. LABORATORY DATA: His white count is 20.4, hemoglobin 12.7, hematocrit 37.6, platelets are just 5. Chemistry shows sodium is 137, potassium 5.4, CO2 is 21, creatinine is 5.8, BUN is 38, ALT is 94, alk phos is 159. Blood cultures, they only did on the peritoneal fluid culture which is preliminary, I am going to see. I am surprised they did not do, so we ordered blood cultures this morning, fungal culture, urine culture, and micro irizarry his culture came back with many polymorphs, no organism seen, so he has many wbc's. He will need peritoneal fluid cell count and culture and sensitivity. When I saw the patient, they were still waiting for a phone call from the renal attending, and the patient was started on ceftazidime [address] Renner had ordered an vancomycin, but that has been since discontinued. In this case, since he is on peritoneal dialysis, I would think the order should come from the renal attending as he may get IV antibiotics in the infusion, but at this time I left him on Fortaz also and vancomycin dose was somehow discontinued, I am not sure about it, why and what. I will repeat the labs tomorrow and will follow. The patient remains acutely ill and should get the vancomycin dose. Jaswant Gilmore MD
[2017-12-18 08:58] LABS: BASO # 0.1 K/uL (0.0-0.2); BASO % 0.4 % (0.0-2.0); EOS # 0.2 K/uL (0.0-0.7); HEMOGLOBIN 11.9 g/dL (12.0-18.0); LYMPH # 8.1 K/uL (1.0-4.3); LYMPH % 37.3 % (20.0-40.0); MEAN CELL VOLUME 90.6 fL (80.0-94.0); MEAN CORPUSCULAR HEMOGLOBIN 30.4 pg (27.0-31.0); MEAN CORPUSCULAR HGB CONC 33.6 g/dL (33.0-37.0); MEAN PLATELET VOLUME 13.3 fL (7.2-11.7); MONO # 2.2 K/uL (0.0-0.8); NEUT # 11.1 K/uL (1.8-7.0); NEUT % 51.3 % (50.0-75.0); RBC 3.93 Mil/uL (4.40-5.90); RED CELL DISTRIBUTION WIDTH 13.8 % (11.5-14.5); WHITE BLOOD COUNT 21.6 K/uL (4.8-10.8)
[2017-12-18] MEDS: Saccharomyces Boulardi 250 mg Cap PO SCH (09:01)
[2017-12-18 09:17] LABS: ALB/GLOB RATIO 1.2 (1.0-2.1); ALBUMIN 3.5 g/dL (3.5-5.0); CALCIUM 8.7 mg/dl (8.6-10.4); MAGNESIUM 1.9 mg/dL (1.6-2.3)
--- NOTE | 2017-12-18 10:11 | CP.PCM.PN ---
<Germania Griffith - Last Filed: 12/18/17 19:47> Subjective - Date & Time of Evaluation Date of Evaluation: 12/18/17 Time of Evaluation: 08:00 - Subjective Subjective: Patient was seen and examined at bedside this morning. Patient was complaining of the same abdominal pain as he had on admission. He states that overnight this pain was worse. He denies N/V, fever/chills, chest pain or palpitations. No new complaints this morning. Patient will go to OR today for new dialysis cath placement with Dr. Quach. Objective - Vital Signs/Intake and Output Vital Signs (last 24 hours): Temp Pulse Resp BP Pulse Ox 98.2 F 89 20 153/112 H 98 12/18/17 07:50 12/18/17 07:50 12/18/17 07:50 12/18/17 07:50 12/18/17 07:50 - Medications Medications: Current Medications Acetaminophen (Tylenol 325mg Tab) 650 mg PO Q6 PRN PRN Reason: Pain, moderate (4-7) Last Admin: 12/17/17 20:10 Dose: 650 mg Clonidine HCl (Catapres) 0.2 mg PO BID [facility] Last Admin: 12/18/17 09:00 Dose: 0.2 mg Sodium Chloride (Sodium Chloride 0.9%) 1,000 mls @ 100 mls/hr IV .Q10H [facility] Last Admin: 12/18/17 08:58 Dose: 100 mls/hr Ceftazidime 1 gm/ Sodium (Chloride) 100 mls @ 100 mls/hr IV Q24H [facility] Last Admin: 12/17/17 19:00 Dose: 100 mls/hr Pantoprazole Sodium (Protonix Inj) 40 mg IVP Q12H [facility] Last Admin: 12/18/17 01:48 Dose: 40 mg Saccharomyces Boulardii (Florastor) 250 mg PO DAILY [facility] Last Admin: 12/18/17 09:01 Dose: 250 mg - Labs Labs: 12/18/17 08:38 12/18/17 08:38 - Constitutional Appears: Non-toxic, No Acute Distress - Head Exam Head Exam: ATRAUMATIC, NORMAL INSPECTION - Eye Exam Eye Exam: EOMI - ENT Exam ENT Exam: Mucous Membranes Moist - Respiratory Exam Respiratory Exam: Clear to Ausculation Bilateral, NORMAL BREATHING PATTERN. absent: Respiratory Distress - Cardiovascular Exam Cardiovascular Exam: REGULAR RHYTHM, +S1, +S2 - GI/Abdominal Exam GI & Abdominal Exam: Guarding, Soft, Tenderness, Normal Bowel Sounds. absent: Distended, Firm - Extremities Exam Extremities Exam: Normal Inspection. absent: Calf Tenderness - Back Exam Back Exam: NORMAL INSPECTION. absent: CVA tenderness (L), CVA tenderness (R), paraspinal tenderness - Neurological Exam Neurological Exam: Alert, Awake, CN II-XII Intact, Oriented x3 Neuro motor strength exam: Left Upper Extremity: 5, Right Upper Extremity: 5, Left Lower Extremity: 5, Right Lower Extremity: 5 - Psychiatric Exam Psychiatric exam: Normal Affect, Normal Mood - Skin Skin Exam: Dry, Intact, Normal Color, Warm Assessment and Plan - Assessment and Plan (Free Text) Assessment: 1) Abdominal Pain * Likely secondary to peritonitis (dialysis cath line infection) * CT Abd/pelvis (no contrast): No definite acute intraabdominal abnormality. * ABs US negative * Infectious Disease (Dr. Gilmore) on the case-->help appreciated * Nephrology (Dr. Villasenor) on the case-->help appreciated * Peritoneal dialysis-->orders per nephrology * Patient had received Rocephin 1 gram IVPB Q12 (received dose today) and Vancomycin 1 gram IV stat (12/17/17) * Dr. Quach consulted for new dialysis line placement 2) Leukocytosis Dysuria * Infectious Disease (Dr. Gilmore) on the case-->help appreciated * Hematology-oncology (Dr. Reid Benites) on the case--> help appreciated * WBC: 20.4 * Afebrile * Lactic acid: 1.0 * Blood cultures (12/17/17): received * Body Fluid Cult (12/17/17): gram positive cocci (prelim) * Fungus culture (12/17/17) * UA negative * Urine culture (12/17/17) * Anaerobic Culture (12/17/17) * procalcitionin pending * Patient had received Rocephin 1 gram IVPB Q12 (received dose today) and Vancomycin 1 gram IV stat (12/17/17) * Fluid studies collected-->Will consider possible SBP * c/w Tylenol 650mg prn for pain * c/w NS @100cc/hr * Abd US normal 3) ESRD on peritoneal dialysis Nephrotic Syndrome * Nephrology consulted: Dr Villasenor --> help appreciated * Dr. Quach consulted for new dialysis line placement * Patient receiving peritoneal dialysis: Patient started about 6-7 months ago, refused last night due to pain * Vanc and Gentamicin with dialysis 4) Atypical-Hemolytic uremic syndrome * Hematology-oncology (Dr. Reid Benites) on the case--> help appreciated: today given one dose of desmopressin and 1 U platelets * Per last admission: Renal biopsy: thrombotic microangiopathy, vascular nephrosclerosis, global and segmental glomerulosclerosis, intact linear glomeruar and distal tubular basement * Patient is currently on Soliris (Eculuazmab) * On Soliris treatment (last dose 12/08/17) * Platelets 5 (no signs of bleeding) 5) Hypertension * Clonidine 0.2mg PO BID added back due to hypertension today. 6) Prophylaxis * Protonix 40mg po daily * Florastor 250mg po BID * SCD * Thrombocytopenic - no chemical anticoagulation needed * Patient is NPO at this time * Hard of hearing (hearing aid) <Odette Quinones V - Last Filed: 12/19/17 20:18> Objective - Vital Signs/Intake and Output Vital Signs (last 24 hours): Temp Pulse Resp BP Pulse Ox 97.9 F 79 16 163/102 H 100 12/19/17 18:00 12/19/17 18:00 12/19/17 18:00 12/19/17 18:00 12/19/17 18:00 Intake and Output: 12/19/17 12/20/17 18:59 06:59 Intake Total 1320 Balance 1320 - Medications Medications: Current Medications Acetaminophen (Tylenol 325mg Tab) 650 mg PO Q6 PRN PRN Reason: Pain, moderate (4-7) Last Admin: 12/19/17 18:48 Dose: 650 mg Clonidine HCl (Catapres) 0.2 mg PO BID [facility] Last Admin: 12/19/17 18:15 Dose: Not Given Docusate Sodium (Colace) 100 mg PO TID [facility] Vancomycin HCl 1 gm/ Sodium (Chloride) 200 mls @ 133.333 mls/hr IVPB MWF [facility] Ciprofloxacin (Cipro 400mg/200ml Dsw) 400 mg in 200 mls @ 133 mls/hr IVPB 2200 [facility] Vancomycin HCl 1 gm/ Sodium (Chloride) 200 mls @ 166.7 mls/hr IVPB ONCE ONE Stop: 12/19/17 20:11 Last Admin: 12/19/17 19:44 Dose: 166.7 mls/hr Ondansetron HCl (Zofran Inj) 4 mg IVP Q6 PRN PRN Reason: Nausea/Vomiting Last Admin: 12/19/17 18:15 Dose: 4 mg Pantoprazole Sodium (Protonix Inj) 40 mg IVP DAILY [facility] Last Admin: 12/19/17 09:37 Dose: 40 mg Pneumococcal Polyvalent Vaccine (Pneumovax 23 Vaccine) 0.5 ml IM .ONCE ONE Stop: 12/22/17 10:01 Polyethylene Glycol (Miralax) 17 gm PO BID PRN PRN Reason: Constipation Saccharomyces Boulardii (Florastor) 250 mg PO DAILY [facility] Last Admin: 12/19/17 09:37 Dose: 250 mg Zolpidem Tartrate (Ambien) 5 mg PO HS ONE Stop: 12/19/17 22:01 - Labs Labs: 12/19/17 07:34 12/19/17 07:34 Attending/Attestation - Attestation I have personally seen and examined this patient.: Yes I have fully participated in the care of the patient.: Yes I have reviewed all pertinent clinical information, including history, physical exam and plan: Yes Notes (Text): This is late computer entry for 12/18/17 Patient seen, examined and case discussed with day-time resident. Patient seen at bedside this morning. Overnight, patient refused dialysis secondary to pain. Nephrology has consulted vascular surgery who came and evaluated the patient. Recommended to take him to the OR to femoral dialysis catheter placement. Medicine resident spoken with Heme-Oncology in light of patient needed surgical intervention to remove catheter. Recommend for Desmopressin. Patient order for platelets, which to arrive by 230PM since they are coming from [place]. Patient seen post-OR, patient has abdominal pain bilateral lower quadrants. There is no rashs no petechiae over his body and at the surgery site. There is no blood loss when I have spoken with the surgery resident. Patient given dose of Morphine IV X1 dose post-OR for pain control. Peritoneal fluid showing positive culture; Awaiting final speciation. Assessment/Plan 1) Peritonitis Abdominal Pain * Infectious Disease (Dr. Gilmore) on the case-->help appreciated * Nephrology (Dr. Villasenor) on the case-->help appreciated * CT Abd/pelvis (no contrast): No definite acute intraabdominal abnormality. * Abdominal US (12/17/2017): kidneys exhibit echogenic parenchyma: rule out underlying medial renal disease (multiple findings) * Likely relate to complications post renal biopsy in 1st hospitalization requiring IR embolization * Patient refused peritoneal dialysis-->orders per nephrology * Patient had received Rocephin 1 gram IVPB Q12 (active since 12/17/17) and Vancomycin 1 gram IV stat (12/17/17) * Change to Cetazidime 1gram IVQ24H (active since 12/17/17) * Received Dose of Ancef in the OR on 12/18/17 * Body Culture (12/17/17): positive awaiting speciation 2) Leukocytosis Dysuria * Infectious Disease (Dr. Gilmore) on the case-->help appreciated * Hematology-oncology (Dr. Reid Benites) on the case--> help appreciated * Remains elevated * Afebrile * Lactic acid: 1.0 * Fluid studies collected-->Will consider possible SBP * Blood cultures (12/17/17): follow-up * Body Fluid Cult (12/17/17): positive for gram positive cocci * Fungus culture (12/17/17): follow-up * Anaerobic Culture (12/17/17): followup * UA negative * Urine culture (12/17/17): follow-up * procalcitionin pending * c/w Tylenol 650mg prn for pain * c/w NS @100cc/hr * NPO for Abdominal US 3) ESRD on peritoneal dialysis Nephrotic Syndrome * Nephrology consulted: Dr Villasenor --> help appreciated * Vascular surgery: Dr. Quach-->help appreciated * 12/18/17: Right femoral dialysis catheter insertion * Patient received dose of Desmopressin and 1 unit of platelets post OR; minimal blood loss * F/u post OR * Patient refused peritional dialysis overnight * Resident repeat CT scan * Patient started dialysis about 6-7 months ago 4) Atypical-Hemolytic uremic syndrome * Hematology-oncology (Dr. Reid Benites) on the case--> help appreciated * Recommended for Desmopression and platelets * Per last admission: Renal biopsy: thrombotic microangiopathy, vascular nephrosclerosis, global and segmental glomerulosclerosis, intact linear glomeruar and distal tubular basement * Patient is currently on Soliris (Eculuazmab) as outpatient * On Soliris treatment (last dose 12/08/17) * Platelets 4 (no signs of bleeding, no skin changes noted 5) Hypertension * History of * Patient is NS 100cc/hr * Restart Clonidine to prevent rebound hypertension 6) Prophylaxis * Protonix 40mg po daily * Florastor 250mg po BID * SCD * Thrombocytopenic - no chemical anticoagulation needed * Patient is NPO at this time for surgery intervention * Hard of hearing (hearing aid) Disposition: * ID, Nephrology, Hematology and vascular surgery on board * Follow-up for signs of bleeding * Follow-cultures; patient is on antibiotics until findings result
[2017-12-18] MEDS ORDERED: Desmopressin 20 MCG in Sodium Chloride 0.9% 50 ML IV ONE (10:49)
[2017-12-18] MEDS ORDERED: HEPARIN-NS 5,000 UNITS/500 ML 5,000 UNIT/500 ML BAG IV ONE (11:21)
[2017-12-18] MEDS: Lidocaine 1% Inj (20ml) ONE ×2 (11:58→12:22)
[2017-12-18] MEDS ORDERED: ceFAZolin IV 2 gm in Dextrose 2 GM/50 ML BAG IVPB ONE (12:17)
[2017-12-18] MEDS ORDERED: Esmolol 100 mg/10ml Inj IV ONE (12:30)
--- NOTE | 2017-12-18 12:55 | PCM.SURG1 ---
Surgeon's Initial Post Op Note - Surgeon's Notes Surgeon: Dr. Quach Beaver Trapper: Malcom Lee PGY2 Type of Anesthesia: Local Pre-Operative Diagnosis: Renal failure Operative Findings: Good R femoral vein Post-Operative Diagnosis: same Operation Performed: R femoral dialysis catheter insertion Specimen/Specimens Removed: none Estimated Blood Loss: EBL {In ML}: 20 Blood Products Given: N/A Post-Op Condition: Good Date of Surgery/Procedure: 12/18/17 Time of Surgery/Procedure: 12:55
--- NOTE | 2017-12-18 13:17 | RAD ---
PROCEDURE: Intraoperative Fluoroscopy. HISTORY: DIALYSIS CATH PLACEMENT FINDINGS: Fluoroscopic assistance was provided. 16.4 seconds fluoroscopy time utilized during this procedure. Radiation dose = 4.04 mGy. Please refer to the operative report from [facility].
[2017-12-18] MEDS ORDERED: Morphine 4 MG/ML VIAL IVP ONE (14:45)
--- NOTE | 2017-12-18 22:41 | CP.PCM.CON ---
History of Present Illness - History of Present Illness History of Present Illness: 31 year old male with a history of atypical HUS on eculizumab since 10/2016, resent peritoneal dialysis access insertion, admitted with abdominal pain secondary to peritonitis. The patient has had an extensive work up pertaining to his thrombocytopenia, anemia, and renal failure. 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 His kidney biopsy was complicated by hemorrhage and need for IR embolization. A bone marrow biopsy revealed normocellular marrow with megakaryocytic hyperplasia consistent with peripheral destruction. Plasma exchange was performed at the time with no improvement in thrombocytopenia or microangiopathic hemolysis. [id number] level returned normal and the patient was felt to have atypical HUS. He was started on eculizumab with variability in his renal function from a cr of 3-5. His platelet count remained severely low and has ranged around 10,000. Past medical history: ?atypical HUS Past surgical history: None Family history: Denies known hematologic and oncologic problems Social history: Denies tobacco, alcohol, and illicit drug use. Allergies: NKA Review of systems: All remaining review of systems including HEENT, cardiovascular, respiratory, gastrointestinal, genitourinary, musculoskeletal, dermatologic, neurologic, and psychiatric are negative unless mentioned in the HPI. Past Patient History - Infectious Disease Hx of Infectious Diseases: None - Past Medical History & Family History Past Medical History?: Yes - Past Social History Smoking Status: Never Smoked - CARDIAC Hx Hypertension: Yes - PULMONARY Hx Respiratory Disorders: No - NEUROLOGICAL Hx Neurological Disorder: No - HEENT Hx HEENT Problems: Yes Hx Deafness: (uses hearing aide) Other/Comment: HEARING IMPAIRED - RENAL Hx Chronic Kidney Disease: Yes - ENDOCRINE/METABOLIC Hx Endocrine Disorders: No - HEMATOLOGICAL/ONCOLOGICAL Hx Blood Disorders: Yes Other/Comment: Thrombocytopenia - INTEGUMENTARY Hx Dermatological Problems: No - MUSCULOSKELETAL/RHEUMATOLOGICAL Hx Musculoskeletal Disorders: No - GASTROINTESTINAL Hx Gastrointestinal Disorders: No - GENITOURINARY/GYNECOLOGICAL Hx Genitourinary Disorders: No - PSYCHIATRIC Hx Substance Use: No - SURGICAL HISTORY Hx Surgeries: Yes Other/Comment: peritoneal dialysis catheter 05/2017 - ANESTHESIA Hx Anesthesia: Yes Hx Anesthesia Reactions: No Hx Malignant Hyperthermia: No Meds Allergies/Adverse Reactions: Allergies Allergy/AdvReac Type Severity Reaction Status Date / Time aspirin AdvReac ANAPHYLAXIS Verified 12/16/17 21:27 - Medications Medications: Current Medications Acetaminophen (Tylenol 325mg Tab) 650 mg PO Q6 PRN PRN Reason: Pain, moderate (4-7) Last Admin: 12/18/17 19:20 Dose: 650 mg Clonidine HCl (Catapres) 0.2 mg PO BID [facility] Last Admin: 12/18/17 18:07 Dose: 0.2 mg Sodium Chloride (Sodium Chloride 0.9%) 1,000 mls @ 100 mls/hr IV .Q10H [facility] Last Admin: 12/18/17 08:58 Dose: 100 mls/hr Cefazolin Sodium/Dextrose (Ancef Iv 1 Gm Duplex) 1 gm in 50 mls @ 100 mls/hr IVPB DAILY [facility] Ondansetron HCl (Zofran Inj) 4 mg IVP Q6 PRN PRN Reason: Nausea/Vomiting Pantoprazole Sodium (Protonix Inj) 40 mg IVP DAILY [facility] Pneumococcal Polyvalent Vaccine (Pneumovax 23 Vaccine) 0.5 ml IM .ONCE ONE Stop: 12/19/17 10:01 Saccharomyces Boulardii (Florastor) 250 mg PO DAILY [facility] Last Admin: 12/18/17 09:01 Dose: 250 mg Physical Exam - Head Exam Head Exam: ATRAUMATIC - Eye Exam Eye Exam: Normal appearance - ENT Exam ENT Exam: Mucous Membranes Dry - Respiratory Exam Respiratory Exam: NORMAL BREATHING PATTERN - Cardiovascular Exam Cardiovascular Exam: +S1, +S2 - GI/Abdominal Exam GI & Abdominal Exam: Tenderness - Extremities Exam Extremities exam: Positive for: normal inspection - Neurological Exam Neurological exam: Oriented x3 - Psychiatric Exam Psychiatric exam: Normal Affect, Normal Mood - Skin Skin Exam: Warm Results - Vital Signs Recent Vital Signs: Last Vital Signs Temp 98.1 F 12/18/17 19:43 Pulse 97 H 12/18/17 19:43 Resp 20 12/18/17 19:43 BP 150/100 H 12/18/17 19:43 Pulse Ox 96 12/18/17 16:02 - Labs Result Diagrams: 12/18/17 08:38 12/18/17 08:38 Labs: Laboratory Results - last 24 hr 12/18/17 12/18/17 12/18/17 08:38 08:38 11:38 WBC 21.6 H RBC 3.93 L Hgb 11.9 L Hct 35.6 MCV 90.6 MCH 30.4 MCHC 33.6 RDW 13.8 Plt Count 4 L* MPV 13.3 H Neut % (Auto) 51.3 Lymph % (Auto) 37.3 [place] % (Auto) 10.0 Eos % (Auto) 1.0 Baso % (Auto) 0.4 Neut # (Auto) 11.1 H Lymph # (Auto) 8.1 H [place] # (Auto) 2.2 H Eos # (Auto) 0.2 Baso # (Auto) 0.1 Differential Comment Sodium 138 Potassium 5.4 H Chloride 109 H Carbon Dioxide 17 L Anion Gap 18 BUN 37 H Creatinine 6.1 H Est GFR ( Amer) 13 Est GFR (Non-Af Amer) 11 Random Glucose 91 Calcium 8.7 Phosphorus 4.5 Magnesium 1.9 Total Bilirubin 0.5 AST 23 ALT 64 Alkaline Phosphatase 139 H Total Protein 6.5 Albumin 3.5 Globulin 3.0 Albumin/Globulin Ratio 1.2 Blood Type O POSITIVE Antibody Screen Negative Assessment & Plan (1) Atypical hemolytic uremic syndrome Assessment and Plan: thrombocytopenia; recommend platelet transfusion plt dysfunction from uremia; recommend desmopressin 0.3mcg/kg IV outpatient eculizumab Status: Acute (2) Elevated WBC count Assessment and Plan: catheter removal antibiotics. Status: Chronic (3) Anemia Assessment and Plan: anemia of chronic kidney disease Thank you for this interesting consult. Status: Acute
--- NOTE | 2017-12-18 23:28 | OP ---
PROCEDURE DATE: 12/18/2017 PREOPERATIVE DIAGNOSIS: Lack of venous access, need for urgent dialysis catheter. PROCEDURE CARRIED OUT: Placement of femoral [place] catheter via right femoral vein with C-arm fluoroscopy, ultrasound-guided puncture and micropuncture technique. SURGEON: Dr. Abdelrahman Quach Jr. CLINICAL LAB CLERK: Dr. Malcom Lee. ANESTHESIOLOGIST: Dr. Griffith. ANESTHESIA: Local with sedation. INDICATIONS: The patient is a 31-year-old man with chronic thrombocytopenia, platelet count of 4000, presenting with inability to use his peritoneal dialysis catheter. OPERATIVE FINDINGS: The peritoneal dialysis catheter . The right femoral vein was accessed using micropuncture technique and ultrasound guidance and a guidewire placed. Then a sheath dilator was passed over this and the catheter was positioned with the tip in the inferior vena cava. This flushed with heparinized saline, had good return and good flow. Blood loss of procedure is 10 mL. Operation carried was placement of femoral dialysis catheter. Ultrasound images from the groin showed the vein was 15 mm in diameter with normal compressibility and no intraluminal thrombosis. Abdelrahman Quach Jr., MD
[2017-12-19] MEDS: Sodium Chloride 0.9% 1,000 ML IV SCH ×2 (03:30→09:39)
--- NOTE | 2017-12-19 07:41 | CP.PCM.PN ---
Subjective - Date & Time of Evaluation Date of Evaluation: 12/19/17 Time of Evaluation: 07:00 - Subjective Subjective: Medicine Consult: Patient was seen and examined at bedside in the AM. Patient states his abdominal pain is a lot better about 5/10. He states he has not had a bowel movement in about 3 days. He also states it does burn when he urinates. He denies any other complaints at this time. Objective - Vital Signs/Intake and Output Vital Signs (last 24 hours): Temp Pulse Resp BP Pulse Ox 97.9 F 75 20 120/67 97 12/19/17 00:03 12/19/17 00:03 12/19/17 00:03 12/19/17 00:03 12/19/17 00:03 Intake and Output: 12/19/17 12/19/17 06:59 18:59 Intake Total 1112 Balance 1112 - Medications Medications: Current Medications Acetaminophen (Tylenol 325mg Tab) 650 mg PO Q6 PRN PRN Reason: Pain, moderate (4-7) Last Admin: 12/18/17 19:20 Dose: 650 mg Clonidine HCl (Catapres) 0.2 mg PO BID [facility] Last Admin: 12/18/17 18:07 Dose: 0.2 mg Sodium Chloride (Sodium Chloride 0.9%) 1,000 mls @ 100 mls/hr IV .Q10H [facility] Last Admin: 12/19/17 03:30 Dose: Not Given Cefazolin Sodium/Dextrose (Ancef Iv 1 Gm Duplex) 1 gm in 50 mls @ 100 mls/hr IVPB DAILY [facility] Ondansetron HCl (Zofran Inj) 4 mg IVP Q6 PRN PRN Reason: Nausea/Vomiting Pantoprazole Sodium (Protonix Inj) 40 mg IVP DAILY [facility] Pneumococcal Polyvalent Vaccine (Pneumovax 23 Vaccine) 0.5 ml IM .ONCE ONE Stop: 12/19/17 10:01 Saccharomyces Boulardii (Florastor) 250 mg PO DAILY [facility] Last Admin: 12/18/17 09:01 Dose: 250 mg - Labs Labs: 12/18/17 08:38 12/18/17 08:38 - Constitutional Appears: No Acute Distress - Head Exam Head Exam: NORMAL INSPECTION, NORMOCEPHALIC - Eye Exam Eye Exam: EOMI, Normal appearance - ENT Exam ENT Exam: Mucous Membranes Moist - Respiratory Exam Respiratory Exam: Clear to Ausculation Bilateral, NORMAL BREATHING PATTERN - Cardiovascular Exam Cardiovascular Exam: REGULAR RHYTHM, +S1, +S2 - GI/Abdominal Exam GI & Abdominal Exam: Soft, Tenderness, Normal Bowel Sounds Additional comments: peritoneal catheter on the left lower abdomen. - Extremities Exam Extremities Exam: Pedal Edema Additional comments: R femoral dialysis catheter insertion - Neurological Exam Neurological Exam: Alert, Awake, Oriented x3 - Psychiatric Exam Psychiatric exam: Normal Affect, Normal Mood - Skin Skin Exam: Dry, Intact, Normal Color, Warm Assessment and Plan - Assessment and Plan (Free Text) Assessment: 1) Peritonitis Infectious Disease (Dr. Gilmore) on the case--> help appreciated - Dialysis cath line infection: Enterococcus Faecalis * Ciprofloxacin 400mg daily * Vancomycin 1 gram IV MWF - Images: * CT Abd/pelvis (no contrast): No definite acute intraabdominal abnormality. * ABs US negative Nephrology (Dr. Villasenor) on the case-->help appreciated * Peritoneal dialysis-->orders per nephrology * Patient had received Rocephin 1 gram IVPB Q12 (received dose today) and Vancomycin 1 gram IV stat (12/17/17) * Dr. Quach consulted for new dialysis line placement 2) Leukocytosis secondary to Peritonitis - Infectious Disease (Dr. Gilmore) on the case-->help appreciated - Hematology-oncology (Dr. Reid Benites) on the case--> help appreciated - WBC: 12.4 - Lactic acid: 1.0; Procalcitonin 0.43 - Blood cultures (12/17/17): no growth - preliminary - Body Fluid Cult (12/17/17): Enterococcus Faecalis - Fungus culture (12/17/17): no fungal elements seen - preliminary - UA negative - Urine culture (12/17/17): no growth - Anaerobic Culture (12/17/17): No anaerobes isolated - Medications: * Patient had received Rocephin 1 gram IVPB Q12 (received dose today)- discontinued 12/19/17 * Vancomycin 1 gram IV MWF * Ciprofloxacin 400mg daily * Tylenol 650mg prn for pain 3) ESRD on peritoneal dialysis Nephrotic Syndrome - Nephrology consulted: Dr Villasenor --> help appreciated * Peritoneal dialysis-->orders per nephrology * Vancomycin with dialysis (MWF) - Dr. Quach consulted for new dialysis line placement * Patient receiving peritoneal dialysis: Patient started about 6-7 months ago, refused last night due to pain * Per surgery Planning permacath on Tuesday 4) Atypical-Hemolytic uremic syndrome - Hematology-oncology (Dr. 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 Reid Benites) --> help appreciated - Platelets 41 (no signs of bleeding) - Spoke with Dr. Benites who recommends transfusing 1 unit of platelets prior to surgery of permacath placement 12/21/17 6) Hypertension * Clonidine 0.2mg PO BID added back due to hypertension today. 7) Prophylaxis * Protonix 40mg po daily * Florastor 250mg po BID * SCD * Thrombocytopenic - no chemical anticoagulation needed * Hard of hearing (hearing aid) Case Discussed with Dr. Leonard Ochoa PGY-1
[2017-12-19 08:00] LABS: ALB/GLOB RATIO 1.2 (1.0-2.1); ALBUMIN 3.2 g/dL (3.5-5.0); CALCIUM 9.1 mg/dl (8.6-10.4); MAGNESIUM 1.7 mg/dL (1.6-2.3)
[2017-12-19 08:11] LABS: BASO % 0.3 % (0.0-2.0); EOS # 0.3 K/uL (0.0-0.7); EOS % 2.7 % (0.0-4.0); HEMOGLOBIN 10.3 g/dL (12.0-18.0); LYMPH # 3.1 K/uL (1.0-4.3); MEAN CELL VOLUME 90.7 fL (80.0-94.0); MEAN CORPUSCULAR HEMOGLOBIN 30.7 pg (27.0-31.0); MEAN CORPUSCULAR HGB CONC 33.8 g/dL (33.0-37.0); MEAN PLATELET VOLUME 8.1 fL (7.2-11.7); MONO # 1.9 K/uL (0.0-0.8); MONO % 15.2 % (0.0-10.0); NEUT # 7.1 K/uL (1.8-7.0); NEUT % 56.8 % (50.0-75.0); RBC 3.35 Mil/uL (4.40-5.90); RED CELL DISTRIBUTION WIDTH 14.2 % (11.5-14.5); WHITE BLOOD COUNT 12.4 K/uL (4.8-10.8)
[2017-12-19] MEDS: Saccharomyces Boulardi 250 mg Cap PO SCH (09:37)
[2017-12-19] MEDS ORDERED: Influenza Vaccine 60 mcg/0.5 mL SYR (4YR UP) IM ONE (10:00)
[2017-12-19] MEDS ORDERED: Pneumococcal 23-Valent Vaccine IM ONE (10:00)
[2017-12-19] MEDS ORDERED: ceFAZolin IV 1 gm in Dextrose 1 GM/50 ML BAG IVPB SCH (10:00)
[2017-12-19] MEDS ORDERED: POLYETHYLENE GLYCOL 3350 17 GM/Dose PACKET PO PRN (11:00)
--- NOTE | 2017-12-19 12:59 | CP.PCM.PN ---
Subjective - Date & Time of Evaluation Date of Evaluation: 12/19/17 Time of Evaluation: 12:56 - Subjective Subjective: less abdominal pains; refused PD since 2/4 PD fluid positive for VSE fem cath placed for hemodialysis afebrile, no other complaint Objective - Vital Signs/Intake and Output Vital Signs (last 24 hours): Temp Pulse Resp BP Pulse Ox 99.5 F 79 20 123/78 98 12/19/17 09:30 12/19/17 09:30 12/19/17 09:30 12/19/17 09:30 12/19/17 09:30 Intake and Output: 12/19/17 12/19/17 06:59 18:59 Intake Total 1112 Balance 1112 - Medications Medications: Current Medications Acetaminophen (Tylenol 325mg Tab) 650 mg PO Q6 PRN PRN Reason: Pain, moderate (4-7) Last Admin: 12/19/17 12:38 Dose: 650 mg Clonidine HCl (Catapres) 0.2 mg PO BID [facility] Last Admin: 12/19/17 09:40 Dose: Not Given Sodium Chloride (Sodium Chloride 0.9%) 1,000 mls @ 100 mls/hr IV .Q10H [facility] Last Admin: 12/19/17 09:39 Dose: 100 mls/hr Vancomycin HCl 1 gm/ Sodium (Chloride) 250 mls @ 166.7 mls/hr IVPB MWF [facility] Ondansetron HCl (Zofran Inj) 4 mg IVP Q6 PRN PRN Reason: Nausea/Vomiting Last Admin: 12/19/17 12:38 Dose: 4 mg Pantoprazole Sodium (Protonix Inj) 40 mg IVP DAILY [facility] Last Admin: 12/19/17 09:37 Dose: 40 mg Pneumococcal Polyvalent Vaccine (Pneumovax 23 Vaccine) 0.5 ml IM .ONCE ONE Stop: 12/22/17 10:01 Polyethylene Glycol (Miralax) 17 gm PO BID PRN PRN Reason: Constipation Saccharomyces Boulardii (Florastor) 250 mg PO DAILY [facility] Last Admin: 12/19/17 09:37 Dose: 250 mg - Labs Labs: 12/19/17 07:34 12/19/17 07:34 - Constitutional Appears: No Acute Distress, Chronically Ill - Head Exam Head Exam: ATRAUMATIC, NORMAL INSPECTION - Eye Exam Eye Exam: EOMI, Normal appearance - Neck Exam Neck Exam: Normal Inspection. absent: Tenderness - Respiratory Exam Respiratory Exam: Clear to Ausculation Bilateral, NORMAL BREATHING PATTERN - Cardiovascular Exam Cardiovascular Exam: REGULAR RHYTHM, +S1 - GI/Abdominal Exam GI & Abdominal Exam: Soft, Tenderness - Extremities Exam Extremities Exam: Normal Inspection. absent: Tenderness - Neurological Exam Neurological Exam: Awake, CN II-XII Intact - Skin Skin Exam: Dry, Warm Assessment and Plan (1) Spontaneous bacterial peritonitis Status: Acute (2) Atypical hemolytic uremic syndrome Status: Acute (3) ESRD (end stage renal disease) on dialysis Status: Acute (4) Hypertension Status: Chronic - Assessment and Plan (Free Text) Plan: IP vancomycin IV cipro HD today- not dialyzed for several days Try to resume PD
--- NOTE | 2017-12-19 13:36 | CP.PCM.PN ---
Subjective - Date & Time of Evaluation Date of Evaluation: 12/19/17 Time of Evaluation: 13:35 - Subjective Subjective: planning permacath on tuesday will need rx of platlelets Objective - Vital Signs/Intake and Output Vital Signs (last 24 hours): Temp Pulse Resp BP Pulse Ox 99.5 F 79 20 123/78 98 12/19/17 09:30 12/19/17 09:30 12/19/17 09:30 12/19/17 09:30 12/19/17 09:30 Intake and Output: 12/19/17 12/19/17 06:59 18:59 Intake Total 1112 Balance 1112 - Medications Medications: Current Medications Acetaminophen (Tylenol 325mg Tab) 650 mg PO Q6 PRN PRN Reason: Pain, moderate (4-7) Last Admin: 12/19/17 12:38 Dose: 650 mg Clonidine HCl (Catapres) 0.2 mg PO BID [facility] Last Admin: 12/19/17 09:40 Dose: Not Given Sodium Chloride (Sodium Chloride 0.9%) 1,000 mls @ 100 mls/hr IV .Q10H [facility] Last Admin: 12/19/17 09:39 Dose: 100 mls/hr Vancomycin HCl 1 gm/ Sodium (Chloride) 200 mls @ 133.333 mls/hr IVPB MWF [facility] Ondansetron HCl (Zofran Inj) 4 mg IVP Q6 PRN PRN Reason: Nausea/Vomiting Last Admin: 12/19/17 12:38 Dose: 4 mg Pantoprazole Sodium (Protonix Inj) 40 mg IVP DAILY [facility] Last Admin: 12/19/17 09:37 Dose: 40 mg Pneumococcal Polyvalent Vaccine (Pneumovax 23 Vaccine) 0.5 ml IM .ONCE ONE Stop: 12/22/17 10:01 Polyethylene Glycol (Miralax) 17 gm PO BID PRN PRN Reason: Constipation Saccharomyces Boulardii (Florastor) 250 mg PO DAILY [facility] Last Admin: 12/19/17 09:37 Dose: 250 mg - Labs Labs: 12/19/17 07:34 12/19/17 07:34
[2017-12-19 14:46] LABS: SQUAMOUS EPITHIAL < 1 /hpf (0-5); URINE BILIRUBIN NEGATIVE (NEGATIVE); URINE BLOOD NEGATIVE (NEGATIVE); URINE CLARITY Clear (Clear); URINE COLOR Straw (YELLOW); URINE GLUCOSE (UA) 1+ mg/dL (Normal); URINE LEUKOCYTE ESTERASE NEG Leu/uL (Negative); URINE NITRATE NEGATIVE (NEGATIVE); URINE PROTEIN 2+ mg/dL (NEGATIVE); URINE UROBILINOGEN NORMAL mg/dL (0.2-1.0)
[2017-12-19] MEDS ORDERED: Vancomycin 1 GM in Sodium Chloride 0.9% 200 ML IVPB ONE (19:00)
--- NOTE | 2017-12-19 20:25 | CP.PCM.PN ---
Subjective - Date & Time of Evaluation Date of Evaluation: 12/19/17 Time of Evaluation: 05:00 - Subjective Subjective: dictated Objective - Vital Signs/Intake and Output Vital Signs (last 24 hours): Temp Pulse Resp BP Pulse Ox 97.9 F 79 16 163/102 H 100 12/19/17 18:00 12/19/17 18:00 12/19/17 18:00 12/19/17 18:00 12/19/17 18:00 Intake and Output: 12/19/17 12/20/17 18:59 06:59 Intake Total 1320 Balance 1320 - Medications Medications: Current Medications Acetaminophen (Tylenol 325mg Tab) 650 mg PO Q6 PRN PRN Reason: Pain, moderate (4-7) Last Admin: 12/19/17 18:48 Dose: 650 mg Clonidine HCl (Catapres) 0.2 mg PO BID [facility] Last Admin: 12/19/17 18:15 Dose: Not Given Docusate Sodium (Colace) 100 mg PO TID [facility] Vancomycin HCl 1 gm/ Sodium (Chloride) 200 mls @ 133.333 mls/hr IVPB MWF [facility] Ciprofloxacin (Cipro 400mg/200ml Dsw) 400 mg in 200 mls @ 133 mls/hr IVPB 2200 [facility] Ondansetron HCl (Zofran Inj) 4 mg IVP Q6 PRN PRN Reason: Nausea/Vomiting Last Admin: 12/19/17 18:15 Dose: 4 mg Pantoprazole Sodium (Protonix Inj) 40 mg IVP DAILY [facility] Last Admin: 12/19/17 09:37 Dose: 40 mg Pneumococcal Polyvalent Vaccine (Pneumovax 23 Vaccine) 0.5 ml IM .ONCE ONE Stop: 12/22/17 10:01 Polyethylene Glycol (Miralax) 17 gm PO BID PRN PRN Reason: Constipation Saccharomyces Boulardii (Florastor) 250 mg PO DAILY [facility] Last Admin: 12/19/17 09:37 Dose: 250 mg Zolpidem Tartrate (Ambien) 5 mg PO HS ONE Stop: 12/19/17 22:01 - Labs Labs: 12/19/17 07:34 12/19/17 07:34
[2017-12-19] MEDS: Ciprofloxacin 400mg/200ml D5W 400 MG/200 ML BAG IVPB SCH (22:56)
--- NOTE | 2017-12-20 01:48 | PN ---
DATE: SUBJECTIVE: The patient was now getting hemodialysis. They tried to do peritoneal dialysis, but it was so painful for him, and now he is on hemodialysis. His blood cultures grew Enterococcus, which probably is causing this bacterial peritonitis, so we will start him on Cipro IV and he is going to get vancomycin on today's dialysis. We will continue vancomycin after each dialysis and Cipro IV for now would treat for this septicemia which he has. Also, he will need an echocardiogram. For Enterococcus, he was still complaining of abdominal pain, actually his peritoneal fluid grew Enterococcus and he still has peritoneal dialysis catheter which, I do not know if they have planned to, they should remove it, but I will leave that on the renal attending if this should be removed. PHYSICAL EXAMINATION VITAL SIGNS: T-max is 97.9, pulse 79, blood pressure is 163/102, respirations are 16. HEENT: Head is atraumatic, normocephalic. NECK: Supple. LUNGS: Clear. HEART: S1 and S2 are regular. ABDOMEN: He has peritoneal dialysis catheter present. GROIN: He has dialysis catheter. EXTREMITIES: No edema. LABORATORY DATA: White count is 12.4 today, hemoglobin 10.3, hematocrit is 30.4, platelet count is 41 and it came down from 21.6, platelets are still low, and his creatinine is 5.7, BUN is 33. He has end-stage renal disease. His fluid had shown total cell count of 100, neutrophils 86, lymphocytes 9, and monocytes of 5, so definitely he has bacterial peritonitis secondary to the peritoneal dialysis. Jaswant Gilmore MD
[2017-12-20 08:03] LABS: BASO # 0.1 K/uL (0.0-0.2); BASO % 0.6 % (0.0-2.0); EOS # 0.3 K/uL (0.0-0.7); EOS % 2.4 % (0.0-4.0); HEMOGLOBIN 11.2 g/dL (12.0-18.0); LYMPH # 2.4 K/uL (1.0-4.3); LYMPH % 19.9 % (20.0-40.0); MEAN CORPUSCULAR HEMOGLOBIN 30.3 pg (27.0-31.0); MEAN CORPUSCULAR HGB CONC 34.3 g/dL (33.0-37.0); MEAN PLATELET VOLUME 7.9 fL (7.2-11.7); MONO # 1.6 K/uL (0.0-0.8); MONO % 12.9 % (0.0-10.0); NEUT # 7.9 K/uL (1.8-7.0); NEUT % 64.2 % (50.0-75.0); RBC 3.69 Mil/uL (4.40-5.90); WHITE BLOOD COUNT 12.3 K/uL (4.8-10.8)
[2017-12-20 08:11] LABS: MEAN CELL VOLUME 88.6 fL (80.0-94.0)
[2017-12-20 08:19] LABS: ALB/GLOB RATIO 1.2 (1.0-2.1); ALBUMIN 3.7 g/dL (3.5-5.0); CALCIUM 8.9 mg/dl (8.6-10.4); MAGNESIUM 1.7 mg/dL (1.6-2.3)
--- NOTE | 2017-12-20 09:37 | RAD ---
PROCEDURE: Radiographs of the chest and abdomen (obstructive series) HISTORY: N/V, Abdominal Pain, NO bowel movement since 12/15 COMPARISON: No prior. TECHNIQUE: AP radiograph of the chest, with upright and supine radiographs of the abdomen. FINDINGS: CHEST: Lungs: Clear. Cardiovascular: Normal size heart. No pulmonary vascular congestion. Prominent unfolded thoracic aorta. Pleura: No pleural fluid. No pneumothorax. Other findings: None. ABDOMEN AND PELVIS: Bowel: Stool retention moderate.. No evidence of mechanical obstruction. Free air: None. Bones: Unremarkable. Other findings: Multiple tubes project over the lower abdomen/ pelvis -correlate clinically IMPRESSION: No infiltrate.Prominent unfolded thoracic aorta. Clinical follow-up recommended Moderate stool retention. No bowel obstruction
--- NOTE | 2017-12-20 09:45 | CP.PCM.PN ---
Subjective - Date & Time of Evaluation Date of Evaluation: 12/20/17 Time of Evaluation: 07:25 - Subjective Subjective: Vascular surgery progress note for Dr. Joel Rosario, PGY-1 Pt S & E at bedside. Pt requesting AVF creation, wants to stop peritoneal dialysis. No other complaints. Objective - Vital Signs/Intake and Output Vital Signs (last 24 hours): Temp Pulse Resp BP Pulse Ox 98.3 F 88 20 158/59 H 97 12/20/17 07:05 12/20/17 07:05 12/20/17 07:05 12/20/17 07:05 12/20/17 07:05 - Medications Medications: Current Medications Acetaminophen (Tylenol 325mg Tab) 650 mg PO Q6 PRN PRN Reason: Pain, moderate (4-7) Last Admin: 12/20/17 09:09 Dose: 650 mg Clonidine HCl (Catapres) 0.2 mg PO BID [facility] Last Admin: 12/19/17 18:15 Dose: Not Given Docusate Sodium (Colace) 100 mg PO TID [facility] Vancomycin HCl 1 gm/ Sodium (Chloride) 200 mls @ 133.333 mls/hr IVPB MWF [facility] Ciprofloxacin (Cipro 400mg/200ml Dsw) 400 mg in 200 mls @ 133 mls/hr IVPB 2200 [facility] Last Admin: 12/19/17 22:56 Dose: 133 mls/hr Ondansetron HCl (Zofran Inj) 4 mg IVP Q6 PRN PRN Reason: Nausea/Vomiting Last Admin: 12/20/17 09:09 Dose: 4 mg Pantoprazole Sodium (Protonix Inj) 40 mg IVP DAILY [facility] Last Admin: 12/20/17 09:09 Dose: 40 mg Pneumococcal Polyvalent Vaccine (Pneumovax 23 Vaccine) 0.5 ml IM .ONCE ONE Stop: 12/22/17 10:01 Polyethylene Glycol (Miralax) 17 gm PO BID PRN PRN Reason: Constipation Saccharomyces Boulardii (Florastor) 250 mg PO DAILY [facility] Last Admin: 12/19/17 09:37 Dose: 250 mg - Labs Labs: 12/20/17 07:51 12/20/17 07:51 - Constitutional Appears: Non-toxic, No Acute Distress - Head Exam Head Exam: ATRAUMATIC, NORMAL INSPECTION, NORMOCEPHALIC - Eye Exam Eye Exam: EOMI, Normal appearance - ENT Exam ENT Exam: Mucous Membranes Moist, Normal Exam - Neck Exam Neck Exam: Full ROM, Normal Inspection - Respiratory Exam Respiratory Exam: NORMAL BREATHING PATTERN - Cardiovascular Exam Cardiovascular Exam: REGULAR RHYTHM - GI/Abdominal Exam GI & Abdominal Exam: Soft. absent: Tenderness - Extremities Exam Extremities Exam: Normal Inspection - Neurological Exam Neurological Exam: Alert, Awake, CN II-XII Intact, Oriented x3 - Psychiatric Exam Psychiatric exam: Normal Affect, Normal Mood - Skin Skin Exam: Dry, Intact, Normal Color, Warm Assessment and Plan - Assessment and Plan (Free Text) Assessment: 31M w/ESRD On HD requiring permacath placement Plan: Plan for OR tomorrow Plts ordered to be given 2 hrs prior to procedure- to give at 9am FU vein mapping NPO after MN No anticoagulation DW attending Marlene, PGY-1
--- NOTE | 2017-12-20 10:52 | CP.PCM.PN ---
Subjective - Date & Time of Evaluation Date of Evaluation: 12/20/17 Time of Evaluation: 10:49 - Subjective Subjective: seen and examined notes reviewed afebrile, improved leukocytosis enterococcus peritonitis denies any nausea vomiting diarrhea sob chest pain rash fevers chills dizziness headache Objective - Vital Signs/Intake and Output Vital Signs (last 24 hours): Temp Pulse Resp BP Pulse Ox 98.3 F 88 20 158/59 H 97 12/20/17 07:05 12/20/17 07:05 12/20/17 07:05 12/20/17 07:05 12/20/17 07:05 - Medications Medications: Current Medications Acetaminophen (Tylenol 325mg Tab) 650 mg PO Q6 PRN PRN Reason: Pain, moderate (4-7) Last Admin: 12/20/17 09:09 Dose: 650 mg Clonidine HCl (Catapres) 0.2 mg PO BID [facility] Last Admin: 12/19/17 18:15 Dose: Not Given Docusate Sodium (Colace) 100 mg PO TID [facility] Vancomycin HCl 1 gm/ Sodium (Chloride) 200 mls @ 133.333 mls/hr IVPB MWF [facility] Ciprofloxacin (Cipro 400mg/200ml Dsw) 400 mg in 200 mls @ 133 mls/hr IVPB 2200 [facility] Last Admin: 12/19/17 22:56 Dose: 133 mls/hr Ondansetron HCl (Zofran Inj) 4 mg IVP Q6 PRN PRN Reason: Nausea/Vomiting Last Admin: 12/20/17 09:09 Dose: 4 mg Pantoprazole Sodium (Protonix Inj) 40 mg IVP DAILY [facility] Last Admin: 12/20/17 09:09 Dose: 40 mg Pneumococcal Polyvalent Vaccine (Pneumovax 23 Vaccine) 0.5 ml IM .ONCE ONE Stop: 12/22/17 10:01 Polyethylene Glycol (Miralax) 17 gm PO BID PRN PRN Reason: Constipation Saccharomyces Boulardii (Florastor) 250 mg PO DAILY [facility] Last Admin: 12/19/17 09:37 Dose: 250 mg - Labs Labs: 12/20/17 07:51 12/20/17 07:51 - Constitutional Appears: Non-toxic, No Acute Distress - Head Exam Head Exam: NORMAL INSPECTION - Eye Exam Eye Exam: Normal appearance, PERRL - ENT Exam ENT Exam: Mucous Membranes Moist, Normal Exam - Neck Exam Neck Exam: Normal Inspection - Respiratory Exam Respiratory Exam: Clear to Ausculation Bilateral, NORMAL BREATHING PATTERN - Cardiovascular Exam Cardiovascular Exam: REGULAR RHYTHM, RRR - GI/Abdominal Exam GI & Abdominal Exam: Distended, Soft, Tenderness (diffuse ttp. peritoneal catheter) - Extremities Exam Extremities Exam: Normal Inspection (femoral hd catheter) Assessment and Plan (1) Thrombocytopenia Status: Acute (2) Spontaneous bacterial peritonitis Status: Acute (3) Anemia Status: Acute (4) Atypical hemolytic uremic syndrome Status: Acute (5) ESRD on hemodialysis Status: Acute - Assessment and Plan (Free Text) Assessment: pt wants to switch to hd. plan for permcath and avf tomorrow hd tomorrow am prior to procedure dc peritoneal catheter iv antibiotics. recommend echo
[2017-12-20] MEDS: Saccharomyces Boulardi 250 mg Cap PO SCH (11:05)
--- NOTE | 2017-12-20 16:32 | CP.PCM.PN ---
<Dee Ochoa - Last Filed: 12/20/17 17:59> Subjective - Date & Time of Evaluation Date of Evaluation: 12/20/17 Time of Evaluation: 07:00 - Subjective Subjective: Medicine Progress Note: Patient was seen and examined at bedside in the AM. Patient states he continues to have nausea and vomiting since dinner last evening. He denies abdominal pain from his peritoneal drain but states he has abdominal pain in his lower abdomen. He states he has not had a bowel movement since last . He denies any other complaints at this time. Objective - Vital Signs/Intake and Output Vital Signs (last 24 hours): Temp Pulse Resp BP Pulse Ox 97.9 F 67 20 149/87 97 12/20/17 16:08 12/20/17 16:08 12/20/17 16:08 12/20/17 16:08 12/20/17 16:08 - Medications Medications: Current Medications Acetaminophen (Tylenol 325mg Tab) 650 mg PO Q6 PRN PRN Reason: Pain, moderate (4-7) Last Admin: 12/20/17 09:09 Dose: 650 mg Clonidine HCl (Catapres) 0.2 mg PO BID [facility] Last Admin: 12/20/17 11:05 Dose: 0.2 mg Docusate Sodium (Colace) 100 mg PO TID [facility] Vancomycin HCl 1 gm/ Sodium (Chloride) 250 mls @ 133.333 mls/hr IVPB MWF [facility] Ciprofloxacin (Cipro 400mg/200ml Dsw) 400 mg in 200 mls @ 133 mls/hr IVPB 2200 [facility] Last Admin: 12/19/17 22:56 Dose: 133 mls/hr Ondansetron HCl (Zofran Inj) 4 mg IVP Q6 PRN PRN Reason: Nausea/Vomiting Last Admin: 12/20/17 09:09 Dose: 4 mg Pantoprazole Sodium (Protonix Inj) 40 mg IVP DAILY [facility] Last Admin: 12/20/17 09:09 Dose: 40 mg Pneumococcal Polyvalent Vaccine (Pneumovax 23 Vaccine) 0.5 ml IM .ONCE ONE Stop: 12/22/17 10:01 Polyethylene Glycol (Miralax) 17 gm PO BID PRN PRN Reason: Constipation Last Admin: 12/20/17 11:05 Dose: 17 gm Saccharomyces Boulardii (Florastor) 250 mg PO DAILY [facility] Last Admin: 12/20/17 11:05 Dose: 250 mg - Labs Labs: 12/20/17 07:51 12/20/17 07:51 - Constitutional Appears: In Acute Distress (nausea/vomiting) - Head Exam Head Exam: NORMAL INSPECTION - Eye Exam Eye Exam: EOMI, Normal appearance - ENT Exam ENT Exam: Mucous Membranes Moist - Respiratory Exam Respiratory Exam: Clear to Ausculation Bilateral, NORMAL BREATHING PATTERN - Cardiovascular Exam Cardiovascular Exam: REGULAR RHYTHM, +S1, +S2 - GI/Abdominal Exam GI & Abdominal Exam: Soft, Tenderness (middle lower abdomen), Normal Bowel Sounds Additional comments: peritoneal drain on the left lower abdomen - Extremities Exam Extremities Exam: Normal Inspection Additional comments: Right femoral catheter in place - clean/dry/intact - Neurological Exam Neurological Exam: Alert, Awake, Oriented x3 - Psychiatric Exam Psychiatric exam: Normal Affect, Normal Mood - Skin Skin Exam: Normal Color, Warm Assessment and Plan - Assessment and Plan (Free Text) Assessment: 1) Peritonitis Infectious Disease (Dr. Gilmore) on the case--> help appreciated - Dialysis cath line infection: Enterococcus Faecalis * Ciprofloxacin 400mg daily * Vancomycin 1 gram IV MWF - Images: * CT Abd/pelvis (no contrast): No definite acute intraabdominal abnormality. * ABs US negative Nephrology (Dr. Villasenor) on the case-->help appreciated * Peritoneal dialysis-->orders per nephrology * Patient had received Rocephin 1 gram IVPB Q12 (received dose today) and Vancomycin 1 gram IV stat (12/17/17) * Dr. Quach consulted for new dialysis line placement 2) Leukocytosis secondary to Peritonitis - Infectious Disease (Dr. Gilmore) on the case-->help appreciated - Hematology-oncology (Dr. Reid Benites) on the case--> help appreciated - WBC: 12.4 - Lactic acid: 1.0; Procalcitonin 0.43 - Blood cultures (12/17/17): no growth - preliminary - Body Fluid Cult (12/17/17): Enterococcus Faecalis - Fungus culture (12/17/17): no fungal elements seen - preliminary - UA negative - Urine culture (12/17/17): no growth - Anaerobic Culture (12/17/17): No anaerobes isolated - Medications: * Vancomycin 1 gram IV MWF * Ciprofloxacin 400mg daily * Tylenol 650mg prn for pain 3) ESRD on peritoneal dialysis Nephrotic Syndrome - Nephrology consulted: Dr Villasenor --> help appreciated * Peritoneal dialysis-->orders per nephrology * Vancomycin with dialysis (MWF) - Dr. Quach consulted for new dialysis line placement * Patient receiving peritoneal dialysis: Patient started about 6-7 months ago, refused last night due to pain * Per surgery Planning permacath on Tuesday12/21/17 * NPO after midnight 4) Atypical-Hemolytic uremic syndrome - Hematology-oncology (Dr. 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 Reid Benites) --> help appreciated - Platelets 41 (no signs of bleeding) - Spoke with Dr. Benites who recommends transfusing 1 unit of platelets prior to surgery of permacath placement 12/21/17 - Spoke with Dr. Benites who agrees to giving patient one dose of desmopressin 30 minutes prior to procedure 12/21/17 6) Hypertension * Clonidine 0.2mg PO BID 7.) Constipation - Abdominal Obstructive Series Xray (12/19/17): Moderate stool retention. No bowel obstruction - Enema ordered 8.) Prophylaxis * Protonix 40mg po daily * Florastor 250mg po BID * SCD * Thrombocytopenic - no chemical anticoagulation needed * Hard of hearing (hearing aid) Case Discussed with Dr. Leonard Ochoa PGY-1 <Kyle Vlale - Last Filed: 12/20/17 19:45> Objective - Vital Signs/Intake and Output Vital Signs (last 24 hours): Temp Pulse Resp BP Pulse Ox 97.9 F 67 20 149/87 97 12/20/17 16:08 12/20/17 16:08 12/20/17 16:08 12/20/17 16:08 12/20/17 16:08 - Medications Medications: Current Medications Acetaminophen (Tylenol 325mg Tab) 650 mg PO Q6 PRN PRN Reason: Pain, moderate (4-7) Last Admin: 12/20/17 09:09 Dose: 650 mg Clonidine HCl (Catapres) 0.2 mg PO BID [facility] Last Admin: 12/20/17 18:00 Dose: 0.2 mg Docusate Sodium (Colace) 100 mg PO TID [facility] Last Admin: 12/20/17 18:00 Dose: 100 mg Vancomycin HCl 1 gm/ Sodium (Chloride) 250 mls @ 133.333 mls/hr IVPB MWF [facility] Ciprofloxacin (Cipro 400mg/200ml Dsw) 400 mg in 200 mls @ 133 mls/hr IVPB 2200 [facility] Last Admin: 12/19/17 22:56 Dose: 133 mls/hr Ondansetron HCl (Zofran Inj) 4 mg IVP Q6 PRN PRN Reason: Nausea/Vomiting Last Admin: 12/20/17 09:09 Dose: 4 mg Pantoprazole Sodium (Protonix Inj) 40 mg IVP DAILY [facility] Last Admin: 12/20/17 09:09 Dose: 40 mg Pneumococcal Polyvalent Vaccine (Pneumovax 23 Vaccine) 0.5 ml IM .ONCE ONE Stop: 12/22/17 10:01 Polyethylene Glycol (Miralax) 17 gm PO BID PRN PRN Reason: Constipation Last Admin: 12/20/17 11:05 Dose: 17 gm Saccharomyces Boulardii (Florastor) 250 mg PO DAILY [facility] Last Admin: 12/20/17 11:05 Dose: 250 mg - Labs Labs: 12/20/17 07:51 12/20/17 07:51 Attending/Attestation - Attestation I have personally seen and examined this patient.: Yes I have fully participated in the care of the patient.: Yes I have reviewed all pertinent clinical information, including history, physical exam and plan: Yes Notes (Text): 12/20/17 19:35 Patient was seen and examined at 12:30 PM 12/20/17. Exam, assessment and plan were gone over with the resident. Also on ROS: NO bowel movement now for 6 days N/V after lunch today Alson on Exam: GI: Tender to palpation in all quadrants without rebound/guarding, Peritoneal Dialysis Catheter in LQ Ext: Right Femoral Dialysis Catheter Assessments: 1). Abdominal Pain/Leukocytosis Likely secondary to the Peritonitis from the Peritoneal Fluid Culture (+) with Enterococcus 12/17/17 Blood Culture 12/17/17 NGTD Urine Culture 12/17/17 no growth Ciprofloxacin 400 mg IV 1x/day Gentamicin 80 mg IV x 1 dose 12/19/17 Vancomycin 1 gm IV M-W- with HD Please reports for CT Abdomen/Pelvis, U/S Abdomen, Chest X Ray, Obstruction Series 2). ESRD on PD Vascular Surgery planning for Right Chest PermACath 12/21/17: will give 1 Platelet Unit and Desmopressin 20 mcg IV PRIOR to procedure Have requested surgery team remove Peritoneal Dialysis Catheter at time of PermACath Nephrology Dr. Villasenor's group 3). HUS/Thrombocytopenia On Solaris treatment with Heme/Onc Dr. Benites with last dose 12/08/17 Was given Platelets and Desmopressin on 12/18/17 and another dose of both for before Right Chest PermACath placement 4). HTN Clonidine 0.2 mg PO 2x/day 5). Hx Left Hearing Loss/Hearing Aid 6). Right Neck Lymph Node Enlargement F/U clinic as outpatient 7). Constipation Enema ordered 12/20/17 Colace 100 mg PO TID Polyethylene Glycol BID PRN NPO after midnight Kyle Valle D.O.
[2017-12-20] MEDS: Ciprofloxacin 400mg/200ml D5W 400 MG/200 ML BAG IVPB SCH (21:58)
--- NOTE | 2017-12-20 22:44 | CP.PCM.PN ---
Subjective - Date & Time of Evaluation Date of Evaluation: 12/20/17 Time of Evaluation: 17:45 - Subjective Subjective: Abdominal pain improved for permacath placement tomorrow Objective - Vital Signs/Intake and Output Vital Signs (last 24 hours): Temp Pulse Resp BP Pulse Ox 97.9 F 67 20 149/87 97 12/20/17 16:08 12/20/17 16:08 12/20/17 16:08 12/20/17 16:08 12/20/17 16:08 - Medications Medications: Current Medications Acetaminophen (Tylenol 325mg Tab) 650 mg PO Q6 PRN PRN Reason: Pain, moderate (4-7) Last Admin: 12/20/17 09:09 Dose: 650 mg Clonidine HCl (Catapres) 0.2 mg PO BID [facility] Last Admin: 12/20/17 18:00 Dose: 0.2 mg Docusate Sodium (Colace) 100 mg PO TID [facility] Last Admin: 12/20/17 18:00 Dose: 100 mg Vancomycin HCl 1 gm/ Sodium (Chloride) 250 mls @ 133.333 mls/hr IVPB MWF [facility] Ciprofloxacin (Cipro 400mg/200ml Dsw) 400 mg in 200 mls @ 133 mls/hr IVPB 2200 [facility] Last Admin: 12/20/17 21:58 Dose: 133 mls/hr Ondansetron HCl (Zofran Inj) 4 mg IVP Q6 PRN PRN Reason: Nausea/Vomiting Last Admin: 12/20/17 09:09 Dose: 4 mg Pantoprazole Sodium (Protonix Inj) 40 mg IVP DAILY [facility] Last Admin: 12/20/17 09:09 Dose: 40 mg Pneumococcal Polyvalent Vaccine (Pneumovax 23 Vaccine) 0.5 ml IM .ONCE ONE Stop: 12/22/17 10:01 Polyethylene Glycol (Miralax) 17 gm PO BID PRN PRN Reason: Constipation Last Admin: 12/20/17 11:05 Dose: 17 gm Saccharomyces Boulardii (Florastor) 250 mg PO DAILY [facility] Last Admin: 12/20/17 11:05 Dose: 250 mg - Labs Labs: 12/20/17 07:51 12/20/17 07:51 - Head Exam Head Exam: ATRAUMATIC - Eye Exam Eye Exam: Normal appearance - ENT Exam ENT Exam: Mucous Membranes Dry - Respiratory Exam Respiratory Exam: NORMAL BREATHING PATTERN - Cardiovascular Exam Cardiovascular Exam: +S1, +S2 - GI/Abdominal Exam GI & Abdominal Exam: Normal Bowel Sounds Assessment and Plan (1) Atypical hemolytic uremic syndrome Assessment & Plan: outpatient treatment to receive 1 bag platelets tomorrow before permacath placement. Status: Acute (2) Elevated WBC count Assessment & Plan: improving with antibiotics. Status: Chronic (3) Anemia Assessment & Plan: anemia of CKD on procrit Status: Acute
[2017-12-21 07:51] LABS: INR 1.3; PROTHROMBIN TIME 15.2 SECONDS (9.7-12.2)
[2017-12-21 08:02] LABS: ALB/GLOB RATIO 1.1 (1.0-2.1); ALBUMIN 3.5 g/dL (3.5-5.0); CALCIUM 9.1 mg/dl (8.6-10.4)
[2017-12-21 08:09] LABS: BASO # 0.1 K/uL (0.0-0.2); EOS # 0.4 K/uL (0.0-0.7); EOS % 3.3 % (0.0-4.0); MONO # 1.7 K/uL (0.0-0.8); RBC 3.85 Mil/uL (4.40-5.90)
[2017-12-21 08:24] LABS: BASO % 0.5 % (0.0-2.0); HEMOGLOBIN 11.5 g/dL (12.0-18.0); LYMPH # 3.2 K/uL (1.0-4.3); LYMPH % 26.6 % (20.0-40.0); MEAN CELL VOLUME 89.5 fL (80.0-94.0); MEAN CORPUSCULAR HEMOGLOBIN 29.8 pg (27.0-31.0); MEAN CORPUSCULAR HGB CONC 33.3 g/dL (33.0-37.0); MEAN PLATELET VOLUME 7.6 fL (7.2-11.7); MONO % 13.8 % (0.0-10.0); NEUT # 6.8 K/uL (1.8-7.0); NEUT % 55.8 % (50.0-75.0); NRBC % 0.3 % (0.0-2.0); RED CELL DISTRIBUTION WIDTH 13.8 % (11.5-14.5); WHITE BLOOD COUNT 12.1 K/uL (4.8-10.8)
--- NOTE | 2017-12-21 09:04 | CP.PCM.PN ---
<Dee Ochoa - Last Filed: 12/21/17 18:45> Subjective - Date & Time of Evaluation Date of Evaluation: 12/21/17 Time of Evaluation: 07:00 - Subjective Subjective: Medicine Progress Note: Patient was seen and examined at bedside in the AM. Patient denies nausea or vomiting. Patient states he still has not had a bowel movement. He states he continues to have pelvic pain. He denies any other complaints at this time. Objective - Vital Signs/Intake and Output Vital Signs (last 24 hours): Temp Pulse Resp BP Pulse Ox 97.9 F 60 20 136/90 96 12/21/17 07:30 12/21/17 07:30 12/21/17 07:30 12/21/17 07:30 12/21/17 07:30 - Medications Medications: Current Medications Acetaminophen (Tylenol 325mg Tab) 650 mg PO Q6 PRN PRN Reason: Pain, moderate (4-7) Last Admin: 12/20/17 09:09 Dose: 650 mg Clonidine HCl (Catapres) 0.2 mg PO BID [facility] Last Admin: 12/20/17 18:00 Dose: 0.2 mg Docusate Sodium (Colace) 100 mg PO TID [facility] Last Admin: 12/20/17 18:00 Dose: 100 mg Vancomycin HCl 1 gm/ Sodium (Chloride) 250 mls @ 133.333 mls/hr IVPB MWF [facility] Ciprofloxacin (Cipro 400mg/200ml Dsw) 400 mg in 200 mls @ 133 mls/hr IVPB 2200 [facility] Last Admin: 12/20/17 21:58 Dose: 133 mls/hr Desmopressin Acetate 20 mcg/ (Sodium Chloride) 55 mls @ 100 mls/hr IV ONCE ONE Stop: 12/21/17 11:02 Ondansetron HCl (Zofran Inj) 4 mg IVP Q6 PRN PRN Reason: Nausea/Vomiting Last Admin: 12/20/17 09:09 Dose: 4 mg Pantoprazole Sodium (Protonix Inj) 40 mg IVP DAILY [facility] Last Admin: 12/20/17 09:09 Dose: 40 mg Pneumococcal Polyvalent Vaccine (Pneumovax 23 Vaccine) 0.5 ml IM .ONCE ONE Stop: 12/22/17 10:01 Polyethylene Glycol (Miralax) 17 gm PO BID PRN PRN Reason: Constipation Last Admin: 12/20/17 11:05 Dose: 17 gm Saccharomyces Boulardii (Florastor) 250 mg PO DAILY [facility] Last Admin: 12/20/17 11:05 Dose: 250 mg - Labs Labs: 12/21/17 07:35 12/21/17 07:35 PT 15.2 SECONDS (9.7-12.2) H 12/21/17 07:35 INR 1.3 12/21/17 07:35 APTT 30 SECONDS (21-34) 12/21/17 07:35 - Constitutional Appears: No Acute Distress - Head Exam Head Exam: NORMAL INSPECTION - Eye Exam Eye Exam: EOMI, Normal appearance - ENT Exam ENT Exam: Mucous Membranes Moist - Respiratory Exam Respiratory Exam: Clear to Ausculation Bilateral, NORMAL BREATHING PATTERN - Cardiovascular Exam Cardiovascular Exam: REGULAR RHYTHM, +S1, +S2 - GI/Abdominal Exam GI & Abdominal Exam: Soft, Tenderness, Normal Bowel Sounds Additional comments: peritoneal catheter in place - Extremities Exam Additional comments: right femoral catheter in place - Neurological Exam Neurological Exam: Alert, Awake, Oriented x3 - Psychiatric Exam Psychiatric exam: Normal Affect, Normal Mood - Skin Skin Exam: Normal Color, Warm Assessment and Plan - Assessment and Plan (Free Text) Assessment: 1) Peritonitis Infectious Disease (Dr. Gilmore) on the case--> help appreciated - Dialysis cath line infection: Enterococcus Faecalis * Ciprofloxacin 400mg daily * Vancomycin 1 gram IV MWF - Images: * CT Abd/pelvis (no contrast): No definite acute intraabdominal abnormality. * ABs US negative Nephrology (Dr. Villasenor) on the case-->help appreciated * Peritoneal dialysis-->orders per nephrology * Patient had received Rocephin 1 gram IVPB Q12 (received dose today) and Vancomycin 1 gram IV stat (12/17/17) 2) Leukocytosis secondary to Peritonitis - Infectious Disease (Dr. Gilmore) on the case-->help appreciated - Hematology-oncology (Dr. Reid Benites) on the case--> help appreciated - WBC: 12.4 - Lactic acid: 1.0; Procalcitonin 0.43 - Blood cultures (12/17/17): no growth - preliminary - Body Fluid Culture (12/17/17): Enterococcus Faecalis - Fungus culture (12/17/17): no fungal elements seen - preliminary - UA negative - Urine culture (12/17/17): no growth - Anaerobic Culture (12/17/17): No anaerobes isolated - Medications: * Vancomycin 1 gram IV MWF * Ciprofloxacin 400mg daily * Tylenol 650mg prn for pain 3) ESRD on peritoneal dialysis Nephrotic Syndrome - Nephrology consulted: Dr Villasenor --> help appreciated * Peritoneal dialysis-->orders per nephrology * Vancomycin with dialysis (MWF) - Dr. Quach consulted for new dialysis line placement * Patient receiving peritoneal dialysis: Patient started about 6-7 months ago, refused last night due to pain * permacath placed on Tuesday12/21/17 4) Atypical-Hemolytic uremic syndrome - Hematology-oncology (Dr. 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 Reid Benites) --> help appreciated - Platelets 41 (no signs of bleeding) - Spoke with Dr. Benites who recommends transfusing 1 unit of platelets prior to surgery of permacath placement 12/21/17 - Spoke with Dr. Benites who agrees to giving patient one dose of desmopressin 30 minutes prior to procedure 12/21/17 6) Hypertension * Clonidine 0.2mg PO BID 7.) Constipation - Abdominal Obstructive Series Xray (12/19/17): Moderate stool retention. No bowel obstruction - Enema ordered - Lactulose 20gm po once - Colace 100mg po TID 8.) Prophylaxis * Protonix 40mg po daily * Florastor 250mg po BID * SCD * Thrombocytopenic - no chemical anticoagulation needed * Hard of hearing (hearing aid) Case Discussed with Dr. Leonard Ochoa PGY-1 <Kyle Valle - Last Filed: 12/21/17 19:56> Objective - Vital Signs/Intake and Output Vital Signs (last 24 hours): Temp Pulse Resp BP Pulse Ox 98.3 F 77 23 149/100 H 99 12/21/17 16:05 12/21/17 16:05 12/21/17 16:05 12/21/17 16:05 12/21/17 16:05 Intake and Output: 12/21/17 12/22/17 18:59 06:59 Intake Total 746 Balance 746 - Medications Medications: Current Medications Acetaminophen (Tylenol 325mg Tab) 650 mg PO Q6 PRN PRN Reason: Pain, moderate (4-7) Last Admin: 12/20/17 09:09 Dose: 650 mg Clonidine HCl (Catapres) 0.2 mg PO BID [facility] Last Admin: 12/21/17 10:47 Dose: Not Given Docusate Sodium (Colace) 100 mg PO TID [facility] Last Admin: 12/21/17 10:47 Dose: Not Given Vancomycin HCl 1 gm/ Sodium (Chloride) 250 mls @ 133.333 mls/hr IVPB MWF [facility] Last Admin: 12/21/17 10:48 Dose: Not Given Ciprofloxacin (Cipro 400mg/200ml Dsw) 400 mg in 200 mls @ 133 mls/hr IVPB 2200 [facility] Last Admin: 12/20/17 21:58 Dose: 133 mls/hr Ondansetron HCl (Zofran Inj) 4 mg IVP Q6 PRN PRN Reason: Nausea/Vomiting Last Admin: 12/20/17 09:09 Dose: 4 mg Pantoprazole Sodium (Protonix Inj) 40 mg IVP DAILY [facility] Last Admin: 12/21/17 10:50 Dose: 40 mg Pneumococcal Polyvalent Vaccine (Pneumovax 23 Vaccine) 0.5 ml IM .ONCE ONE Stop: 12/22/17 10:01 Saccharomyces Boulardii (Florastor) 250 mg PO DAILY [facility] Last Admin: 12/21/17 10:48 Dose: Not Given - Labs Labs: 12/21/17 07:35 12/21/17 07:35 PT 15.2 SECONDS (9.7-12.2) H 12/21/17 07:35 INR 1.3 12/21/17 07:35 APTT 30 SECONDS (21-34) 12/21/17 07:35 Attending/Attestation - Attestation I have personally seen and examined this patient.: Yes I have fully participated in the care of the patient.: Yes I have reviewed all pertinent clinical information, including history, physical exam and plan: Yes Notes (Text): 12/21/17 19:52 Patient was seen and examined at 9:45 AM 12/21/17. Exam, assessment and plan were gone over with the resident. Also on ROS: NO bowel movement now for 7 days now despite the Enema, Miralax NO N/V dinner last night Alson on Exam: HEENT: Right Submandibular freely movable mass that is nontender (patient states that it has enlarged over the past 3 months) GI: Tender to palpation in all quadrants without rebound/guarding, Peritoneal Dialysis Catheter in LQ Ext: Right Femoral Dialysis Catheter Assessments: 1). Abdominal Pain/Leukocytosis Likely secondary to the Peritonitis from the Peritoneal Fluid Culture (+) with Enterococcus 12/17/17 Blood Culture 12/17/17 NGTD Urine Culture 12/17/17 no growth Ciprofloxacin 400 mg IV 1x/day Gentamicin 80 mg IV x 1 dose 12/19/17 Vancomycin 1 gm IV -- with HD Please reports for CT Abdomen/Pelvis, U/S Abdomen, Chest X Ray, Obstruction Series 2). ESRD on PD Vascular Surgery planning for Right Chest PermACath 12/21/17: will give 1 Platelet Unit and Desmopressin 20 mcg IV PRIOR to procedure Have requested surgery team remove Peritoneal Dialysis Catheter at time of PermACath Nephrology Dr. Villasenor's group 3). HUS/Thrombocytopenia On Solaris treatment with Heme/Onc Dr. Benites with last dose 12/08/17 Was given Platelets and Desmopressin on 12/18/17 and another dose of both for before Right Chest PermACath placement 4). HTN Clonidine 0.2 mg PO 2x/day 5). Hx Left Hearing Loss/Hearing Aid 6). Right Neck Lymph Node Enlargement vs Mass? Ordered CT Soft Tissue Neck without contrast 12/21/17 7). Constipation Enema ordered 12/20/17 but very little stool produced as per Nurse Farnaz Colace 100 mg PO TID Polyethylene Glycol BID PRN Lactulose 20 gm PO ordered Kyle Valle D.O.
[2017-12-21] MEDS ORDERED: Desmopressin 20 MCG in Sodium Chloride 0.9% 50 ML IV ONE (10:30)
[2017-12-21] MEDS: Saccharomyces Boulardi 250 mg Cap PO SCH (10:48)
--- NOTE | 2017-12-21 11:53 | VASCLAB ---
PROCEDURE: Bilateral Upper Extremity Venous Mapping HISTORY: ESRD, Pre-op AV Fistula PRIORS: None. TECHNIQUE: Bilateral upper extremity, internal jugular, subclavian, axillary, brachial, ulnar, radial, basilic and upper cephalic veins were evaluated. Flow was assessed with color Doppler, compressibility, assessment of phasic flow and augmentation response. Report prepared by DAVID Hernandez FINDINGS: RIGHT: 1. Internal Jugular Vein: Compressibility - Fully compressible: Thrombus - None : Flow - Phasic 2. Subclavian Vein:Compressibility - Fully compressible: Thrombus - None : Flow - Phasic 3. Axillary Vein: Compressibility - Fully compressible: Thrombus - None 4. Brachial Vein: Compressibility - Fully compressible: Thrombus - None 5. Ulnar Vein:Compressibility - Fully compressible: Thrombus - None 6. Radial Vein:Compressibility - Fully compressible: Thrombus - None 7. Cephalic Vein: Compressibility - Fully compressible: thrombus - None 7.1. Upper Arm: Proximal Diameter: 0.34cm. Mid Diameter: 0.39cm. Distal Diameter: 0.44cm. 7.2. Forearm: Proximal Diameter: 0.34cm. Mid Diameter:0.28cm. Distal Diameter: 0.26cm 8. Basilic Vein:Compressibility - Fully compressible: thrombus - None 8.1. Upper Arm:Proximal Diameter: 0.48cm. Mid Diameter: 0.49cm. Distal Diameter: 0.23cm. 8.2. Forearm: Proximal Diameter: 0.20cm. Mid Diameter:0.16cm. Distal Diameter: 0.13cm. LEFT: 1. Internal Jugular Vein: Compressibility - Fully compressible: Thrombus - None : Flow - Phasic 2. Subclavian Vein:Compressibility - Fully compressible: Thrombus - None : Flow - Phasic 3. Axillary Vein: Compressibility - Fully compressible: Thrombus - None 4. Brachial Vein: Compressibility - Fully compressible: Thrombus - None 5. Ulnar Vein:Compressibility - Fully compressible: Thrombus - None 6. Radial Vein:Compressibility - Fully compressible: Thrombus - None 7. Cephalic Vein: Compressibility - Fully compressible: thrombus - None 7.1. Upper Arm: Proximal Diameter: 0.31cm. Mid Diameter: 0.28cm. Distal Diameter: 0.33cm. 7.2. Forearm: Proximal Diameter: N/A Mid Diameter:0.26cm. Distal Diameter: 0.26cm 8. Basilic Vein:Compressibility - Fully compressible: thrombus - None 8.1. Upper Arm:Proximal Diameter: 0.60cm. Mid Diameter: 0.50cm. Distal Diameter: 0.40cm. 8.2. Forearm: Proximal Diameter: 0.30cm. Mid Diameter:0.18cm. Distal Diameter: 0.13cm. OTHER FINDINGS: Right: None. Left: None. IMPRESSION: Please refer to the above listed measurements for vein size. No evidence of venous thrombosis in bilateral upper extremities.
--- NOTE | 2017-12-21 12:26 | CARD ---
APPROVED REPORT EXAM: Two-dimensional and M-mode echocardiogram with Doppler and color Doppler. Other Information Quality : GoodRhythm : INDICATION Infection:Rule out subacute bacterial endocarditis RISK FACTORS Hypertension 2D DIMENSIONS IVSd1.6 (0.7-1.1cm)LVDd4.1 (3.9-5.9cm) PWd1.4 (0.7-1.1cm)LVDs3.1 (2.5-4.0cm) FS (%) 23.8 %LVEF (%)60.0 (>50%) M-Mode DIMENSIONS Left Atrium (MM)3.64 (2.5-4.0cm)IVSd1.39 (0.7-1.1cm) Aortic Root3.09 (2.2-3.7cm)LVDd4.13 (4.0-5.6cm) Aortic Cusp Exc.1.53 (1.5-2.0cm)PWd1.67 (0.7-1.1cm) FS (%) 36 %LVDs2.64 (2.0-3.8cm) LVEF (%)66 (>50%) Mitral Valve MV E Epwpqxgz19.9cm/sMV A Ppbbjsjw081.7cm/sE/A ratio0.7 TDI E/Lateral E'0.0E/Medial E'0.0 Tricuspid Valve TR Peak Ctphhejo148kn/sTR Peak Gr.9mmHg LEFT VENTRICLE The left ventricle is normal size. There is moderate concentric left ventricular hypertrophy. The left ventricular function is normal. The left ventricular ejection fraction is within the normal range. There is normal LV segmental wall motion. The left ventricular diastolic function is normal. Transmitral Doppler flow pattern is Grade I-abnormal relaxation pattern. No left ventricle thrombus noted on this study. There is no ventricular septal defect visualized. There is no left ventricular aneurysm. There is no mass noted in the left ventricle. RIGHT VENTRICLE The right ventricle is normal size. There is normal right ventricular wall thickness. The right ventricular systolic function is normal. ATRIA The left atrium size is normal. The right atrium size is normal. AORTIC VALVE The aortic valve is normal in structure. No aortic regurgitation is present. There is no aortic valvular stenosis. There is no aortic valvular vegetation. MITRAL VALVE The mitral valve is normal in structure. There is no mitral valve stenosis. There is no mitral valve regurgitation noted. TRICUSPID VALVE The tricuspid valve is normal in structure. There is no tricuspid valve regurgitation noted. PULMONIC VALVE The pulmonary valve is normal in structure. There is no pulmonic valvular regurgitation. GREAT VESSELS The aortic root is normal in size. The ascending aorta is normal in size. PERICARDIAL EFFUSION There is no pericardial effusion. <Conclusion> There is moderate concentric left ventricular hypertrophy. The left ventricular diastolic function is normal. Transmitral Doppler flow pattern is Grade I-abnormal relaxation pattern. LVEF IS 66%.
--- NOTE | 2017-12-21 13:02 | CP.PCM.PN ---
Subjective - Date & Time of Evaluation Date of Evaluation: 12/21/17 Time of Evaluation: 12:57 - Subjective Subjective: Events noted PD orders were written, either not done or patient refusing PD Pt now refusing PD Will need permcath now last hemodialysis stable now afebrile; peritonitis being treated- no more abdominal pains Objective - Vital Signs/Intake and Output Vital Signs (last 24 hours): Temp Pulse Resp BP Pulse Ox 97.9 F 68 16 147/93 H 96 12/21/17 11:50 12/21/17 11:50 12/21/17 11:50 12/21/17 11:50 12/21/17 07:30 Intake and Output: 12/21/17 12/21/17 06:59 18:59 Intake Total 296 Balance 296 - Medications Medications: Current Medications Acetaminophen (Tylenol 325mg Tab) 650 mg PO Q6 PRN PRN Reason: Pain, moderate (4-7) Last Admin: 12/20/17 09:09 Dose: 650 mg Clonidine HCl (Catapres) 0.2 mg PO BID [facility] Last Admin: 12/21/17 10:47 Dose: Not Given Docusate Sodium (Colace) 100 mg PO TID [facility] Last Admin: 12/21/17 10:47 Dose: Not Given Vancomycin HCl 1 gm/ Sodium (Chloride) 250 mls @ 133.333 mls/hr IVPB MWF [facility] Last Admin: 12/21/17 10:48 Dose: Not Given Ciprofloxacin (Cipro 400mg/200ml Dsw) 400 mg in 200 mls @ 133 mls/hr IVPB 2200 [facility] Last Admin: 12/20/17 21:58 Dose: 133 mls/hr Ondansetron HCl (Zofran Inj) 4 mg IVP Q6 PRN PRN Reason: Nausea/Vomiting Last Admin: 12/20/17 09:09 Dose: 4 mg Pantoprazole Sodium (Protonix Inj) 40 mg IVP DAILY [facility] Last Admin: 12/21/17 10:50 Dose: 40 mg Pneumococcal Polyvalent Vaccine (Pneumovax 23 Vaccine) 0.5 ml IM .ONCE ONE Stop: 12/22/17 10:01 Polyethylene Glycol (Miralax) 17 gm PO BID PRN PRN Reason: Constipation Last Admin: 12/20/17 11:05 Dose: 17 gm Saccharomyces Boulardii (Florastor) 250 mg PO DAILY [facility] Last Admin: 12/21/17 10:48 Dose: Not Given - Labs Labs: 12/21/17 07:35 12/21/17 07:35 PT 15.2 SECONDS (9.7-12.2) H 12/21/17 07:35 INR 1.3 12/21/17 07:35 APTT 30 SECONDS (21-34) 12/21/17 07:35 - Constitutional Appears: No Acute Distress, Chronically Ill - Head Exam Head Exam: ATRAUMATIC, NORMAL INSPECTION - Eye Exam Eye Exam: EOMI, Normal appearance - Neck Exam Neck Exam: Normal Inspection. absent: Tenderness - Respiratory Exam Respiratory Exam: Clear to Ausculation Bilateral, NORMAL BREATHING PATTERN - Cardiovascular Exam Cardiovascular Exam: REGULAR RHYTHM, +S1 - GI/Abdominal Exam GI & Abdominal Exam: Soft. absent: Tenderness - Extremities Exam Extremities Exam: Normal Inspection. absent: Tenderness - Neurological Exam Neurological Exam: Alert, CN II-XII Intact - Skin Skin Exam: Dry, Warm Assessment and Plan (1) Spontaneous bacterial peritonitis Status: Acute (2) Atypical hemolytic uremic syndrome Status: Acute (3) ESRD (end stage renal disease) on dialysis Status: Acute (4) Hypertension Status: Chronic - Assessment and Plan (Free Text) Plan: permcath today resume HD MWF
[2017-12-21] MEDS ORDERED: Propofol 10 mg/ml Inj (20 ML) ONE (14:11)
[2017-12-21] MEDS ORDERED: Midazolam 2 MG/2 ML VIAL ONE (14:11)
[2017-12-21] MEDS ORDERED: Lidocaine 1% Inj (20ml) ONE (14:44)
[2017-12-21] MEDS ORDERED: HEPARIN-NS 5,000 UNITS/500 ML 5,000 UNIT/500 ML BAG IV ONE (14:44)
[2017-12-21] MEDS ORDERED: HYDROmorphone 0.5 mg/0.5 ml ISec IVP PRN (15:21)
--- NOTE | 2017-12-21 15:27 | PCM.SURG1 ---
Surgeon's Initial Post Op Note - Surgeon's Notes Surgeon: Dr. Quach Debone Supervisor: PGY1 Pre-Operative Diagnosis: End Stage Renal Disease Operative Findings: see op note Post-Operative Diagnosis: as above Operation Performed: permacath placement R IJ Specimen/Specimens Removed: none Estimated Blood Loss: EBL {In ML}: 5 Drains Used: No Drains Date of Surgery/Procedure: 12/21/17 Time of Surgery/Procedure: 15:26
--- NOTE | 2017-12-21 16:00 | RAD ---
HISTORY: s/p Permacath placement COMPARISON: 12/17/2017 FINDINGS: LUNGS: No active pulmonary disease. PLEURA: No significant pleural effusion identified, no pneumothorax apparent. CARDIOVASCULAR: Right tunneled central venous dialysis catheter. OSSEOUS STRUCTURES: No significant abnormalities. VISUALIZED UPPER ABDOMEN: Normal. OTHER FINDINGS: None. IMPRESSION: No active disease.
[2017-12-21] MEDS: Ciprofloxacin 400mg/200ml D5W 400 MG/200 ML BAG IVPB SCH (22:31)
--- NOTE | 2017-12-22 08:21 | CP.PCM.PN ---
Subjective - Date & Time of Evaluation Date of Evaluation: 12/22/17 Time of Evaluation: 07:00 - Subjective Subjective: VaScular surgery progress note for Dr. Joel Rosario, PGY-1 Pt S & E at bedside. Pt reports MI overnight, some pain at HD insertion site. No other complaints overnight. Objective - Vital Signs/Intake and Output Vital Signs (last 24 hours): Temp Pulse Resp BP Pulse Ox 98.2 F 67 20 119/79 96 12/22/17 07:25 12/22/17 07:25 12/22/17 07:25 12/22/17 07:25 12/22/17 07:25 Intake and Output: 12/22/17 12/22/17 06:59 18:59 Intake Total 60 Balance 60 - Medications Medications: Current Medications Acetaminophen (Tylenol 325mg Tab) 650 mg PO Q6 PRN PRN Reason: Pain, moderate (4-7) Last Admin: 12/21/17 22:30 Dose: 650 mg Clonidine HCl (Catapres) 0.2 mg PO BID [facility] Last Admin: 12/21/17 20:27 Dose: 0.2 mg Docusate Sodium (Colace) 100 mg PO TID [facility] Last Admin: 12/21/17 18:00 Dose: Not Given Vancomycin HCl 1 gm/ Sodium (Chloride) 250 mls @ 133.333 mls/hr IVPB MWF [facility] Last Admin: 12/21/17 10:48 Dose: Not Given Ciprofloxacin (Cipro 400mg/200ml Dsw) 400 mg in 200 mls @ 133 mls/hr IVPB 2200 [facility] Last Admin: 12/21/17 22:31 Dose: 133 mls/hr Ondansetron HCl (Zofran Inj) 4 mg IVP Q6 PRN PRN Reason: Nausea/Vomiting Last Admin: 12/21/17 20:18 Dose: 4 mg Pantoprazole Sodium (Protonix Inj) 40 mg IVP DAILY [facility] Last Admin: 12/21/17 10:50 Dose: 40 mg Pneumococcal Polyvalent Vaccine (Pneumovax 23 Vaccine) 0.5 ml IM .ONCE ONE Stop: 12/22/17 10:01 Saccharomyces Boulardii (Florastor) 250 mg PO DAILY [facility] Last Admin: 12/21/17 10:48 Dose: Not Given - Labs Labs: 12/21/17 07:35 12/21/17 07:35 PT 15.2 SECONDS (9.7-12.2) H 12/21/17 07:35 INR 1.3 12/21/17 07:35 APTT 30 SECONDS (21-34) 12/21/17 07:35 - Constitutional Appears: Non-toxic, No Acute Distress - Head Exam Head Exam: ATRAUMATIC, NORMAL INSPECTION, NORMOCEPHALIC - Eye Exam Eye Exam: EOMI, Normal appearance - ENT Exam ENT Exam: Mucous Membranes Moist - Neck Exam Additional comments: R IJ permacath in place- dressing clean & dry, intact - Respiratory Exam Respiratory Exam: NORMAL BREATHING PATTERN - Cardiovascular Exam Cardiovascular Exam: REGULAR RHYTHM, +S1, +S2 - Extremities Exam Extremities Exam: Normal Inspection - Neurological Exam Neurological Exam: Alert, Awake, CN II-XII Intact, Oriented x3 - Psychiatric Exam Psychiatric exam: Normal Affect, Normal Mood - Skin Skin Exam: Dry, Intact, Normal Color, Warm Assessment and Plan - Assessment and Plan (Free Text) Assessment: 31M w/ESRD on HD POD#1 RIJ permacath placement Plan: Cont HD as per nephro FU AM labs Plan to d/c fem HD cath today Further mgmt as per primary and nephro teams ROMIE attending Marlene, PGY-1
[2017-12-22 08:39] LABS: ALB/GLOB RATIO 1.2 (1.0-2.1); ALBUMIN 3.8 g/dL (3.5-5.0); CALCIUM 9.1 mg/dl (8.6-10.4); MAGNESIUM 1.8 mg/dL (1.6-2.3)
[2017-12-22] MEDS: Saccharomyces Boulardi 250 mg Cap PO SCH (09:40)
[2017-12-22] MEDS ORDERED: Influenza Vaccine 60 mcg/0.5 mL SYR (4YR UP) IM ONE (10:00)
[2017-12-22] MEDS ORDERED: POLYETHYLENE GLYCOL 3350 17 GM/Dose PACKET PO SCH (10:00)
[2017-12-22] MEDS ORDERED: Pneumococcal 23-Valent Vaccine IM ONE (10:00)
[2017-12-22 10:08] LABS: BASO % 0.2 % (0.0-2.0); EOS # 0.3 K/uL (0.0-0.7); EOS % 3.1 % (0.0-4.0); HEMOGLOBIN 11.2 g/dL (12.0-18.0); LYMPH # 3.8 K/uL (1.0-4.3); LYMPH % 39.7 % (20.0-40.0); MEAN CELL VOLUME 89.3 fL (80.0-94.0); MEAN CORPUSCULAR HEMOGLOBIN 30.4 pg (27.0-31.0); MEAN CORPUSCULAR HGB CONC 34.1 g/dL (33.0-37.0); MONO # 1.3 K/uL (0.0-0.8); MONO % 14.1 % (0.0-10.0); NEUT # 4.1 K/uL (1.8-7.0); NEUT % 42.9 % (50.0-75.0); NRBC % 0.1 % (0.0-2.0); RBC 3.69 Mil/uL (4.40-5.90); RED CELL DISTRIBUTION WIDTH 13.6 % (11.5-14.5); WHITE BLOOD COUNT 9.5 K/uL (4.8-10.8)
--- NOTE | 2017-12-22 10:09 | CP.PCM.PN ---
Subjective - Date & Time of Evaluation Date of Evaluation: 12/22/17 Time of Evaluation: 10:06 - Subjective Subjective: s/p permcath placement s/p dialysis 2/7 feels better- afebrile now Objective - Vital Signs/Intake and Output Vital Signs (last 24 hours): Temp Pulse Resp BP Pulse Ox 98.2 F 67 20 119/79 96 12/22/17 07:25 12/22/17 07:25 12/22/17 07:25 12/22/17 07:25 12/22/17 07:25 Intake and Output: 12/22/17 12/22/17 06:59 18:59 Intake Total 60 Balance 60 - Medications Medications: Current Medications Acetaminophen (Tylenol 325mg Tab) 650 mg PO Q6 PRN PRN Reason: Pain, moderate (4-7) Last Admin: 12/21/17 22:30 Dose: 650 mg Clonidine HCl (Catapres) 0.2 mg PO BID [facility] Last Admin: 12/22/17 09:40 Dose: 0.2 mg Docusate Sodium (Colace) 100 mg PO TID [facility] Last Admin: 12/22/17 09:40 Dose: 100 mg Vancomycin HCl 1 gm/ Sodium (Chloride) 250 mls @ 133.333 mls/hr IVPB MWF [facility] Last Admin: 12/21/17 10:48 Dose: Not Given Ciprofloxacin (Cipro 400mg/200ml Dsw) 400 mg in 200 mls @ 133 mls/hr IVPB 2200 [facility] Last Admin: 12/21/17 22:31 Dose: 133 mls/hr Ondansetron HCl (Zofran Inj) 4 mg IVP Q6 PRN PRN Reason: Nausea/Vomiting Last Admin: 12/21/17 20:18 Dose: 4 mg Pantoprazole Sodium (Protonix Inj) 40 mg IVP DAILY [facility] Last Admin: 12/22/17 09:40 Dose: 40 mg Saccharomyces Boulardii (Florastor) 250 mg PO DAILY [facility] Last Admin: 12/22/17 09:40 Dose: 250 mg - Labs Labs: 12/21/17 07:35 12/22/17 08:09 PT 15.2 SECONDS (9.7-12.2) H 12/21/17 07:35 INR 1.3 12/21/17 07:35 APTT 30 SECONDS (21-34) 12/21/17 07:35 - Constitutional Appears: No Acute Distress, Chronically Ill - Head Exam Head Exam: ATRAUMATIC, NORMAL INSPECTION - Eye Exam Eye Exam: EOMI, Normal appearance - Neck Exam Neck Exam: Normal Inspection. absent: Tenderness - Respiratory Exam Respiratory Exam: Clear to Ausculation Bilateral, NORMAL BREATHING PATTERN - Cardiovascular Exam Cardiovascular Exam: REGULAR RHYTHM, +S1 - GI/Abdominal Exam GI & Abdominal Exam: Soft. absent: Tenderness - Extremities Exam Extremities Exam: Normal Inspection. absent: Tenderness - Neurological Exam Neurological Exam: Alert, CN II-XII Intact - Skin Skin Exam: Dry, Warm Assessment and Plan (1) Spontaneous bacterial peritonitis Status: Acute (2) Atypical hemolytic uremic syndrome Status: Acute (3) ESRD (end stage renal disease) on dialysis Status: Acute (4) Hypertension Status: Chronic - Assessment and Plan (Free Text) Plan: IV ABs for peritonitis Dialysis MWF would keep PD cath in place for eventual resumption PD Would NOT place AV access- cannot be safely used at outpt units due to severe thrombocytopenia
--- NOTE | 2017-12-22 10:16 | CP.PCM.PN ---
Subjective - Date & Time of Evaluation Date of Evaluation: 12/22/17 Time of Evaluation: 07:00 - Subjective Subjective: Medicine Progress Note: Patient was seen and examined at bedside in the AM. Patient had a small bowel movement today and he states he is passing flatus. Patient denies nausea, vomiting, fever, chest pain, or shortness of breath. Objective - Vital Signs/Intake and Output Vital Signs (last 24 hours): Temp Pulse Resp BP Pulse Ox 98.2 F 67 20 119/79 96 12/22/17 07:25 12/22/17 07:25 12/22/17 07:25 12/22/17 07:25 12/22/17 07:25 Intake and Output: 12/22/17 12/22/17 06:59 18:59 Intake Total 60 Balance 60 - Medications Medications: Current Medications Acetaminophen (Tylenol 325mg Tab) 650 mg PO Q6 PRN PRN Reason: Pain, moderate (4-7) Last Admin: 12/21/17 22:30 Dose: 650 mg Calcium Acetate (Phoslo) 667 mg PO TID [facility] Clonidine HCl (Catapres) 0.2 mg PO BID [facility] Last Admin: 12/22/17 09:40 Dose: 0.2 mg Docusate Sodium (Colace) 100 mg PO TID [facility] Last Admin: 12/22/17 09:40 Dose: 100 mg Vancomycin HCl 1 gm/ Sodium (Chloride) 250 mls @ 133.333 mls/hr IVPB MWF [facility] Last Admin: 12/21/17 10:48 Dose: Not Given Ciprofloxacin (Cipro 400mg/200ml Dsw) 400 mg in 200 mls @ 133 mls/hr IVPB 2200 [facility] Last Admin: 12/21/17 22:31 Dose: 133 mls/hr Ondansetron HCl (Zofran Inj) 4 mg IVP Q6 PRN PRN Reason: Nausea/Vomiting Last Admin: 12/21/17 20:18 Dose: 4 mg Pantoprazole Sodium (Protonix Inj) 40 mg IVP DAILY [facility] Last Admin: 12/22/17 09:40 Dose: 40 mg Saccharomyces Boulardii (Florastor) 250 mg PO DAILY [facility] Last Admin: 12/22/17 09:40 Dose: 250 mg - Labs Labs: 12/21/17 07:35 02/08/18 08:09 PT 15.2 SECONDS (9.7-12.2) H 12/21/17 07:35 INR 1.3 12/21/17 07:35 APTT 30 SECONDS (21-34) 12/21/17 07:35 - Constitutional Appears: No Acute Distress - Head Exam Head Exam: NORMAL INSPECTION - Eye Exam Eye Exam: EOMI, Normal appearance - ENT Exam ENT Exam: Mucous Membranes Moist - Respiratory Exam Respiratory Exam: Clear to Ausculation Bilateral, NORMAL BREATHING PATTERN - Cardiovascular Exam Cardiovascular Exam: REGULAR RHYTHM, +S1, +S2 - GI/Abdominal Exam GI & Abdominal Exam: Soft, Normal Bowel Sounds. absent: Tenderness Additional comments: peritoneal catheter in place - clean/dry/intact - Extremities Exam Additional comments: right femoral catheter in place - clean/dry/intact - Neurological Exam Neurological Exam: Alert, Awake, Oriented x3 - Psychiatric Exam Psychiatric exam: Normal Affect, Normal Mood - Skin Skin Exam: Dry, Intact, Normal Color, Warm Additional comments: permacath in place on the right side of the chest - clean/dry/intact Assessment and Plan - Assessment and Plan (Free Text) Assessment: Discussed with patient today the risks of having an AV fistula in place due to his history of HUS. Explained to patient his increased risk of bleeding every time he will have dialysis with an AV fistula. Discussed why in the future using his peritoneal catheter for dialysis is a better choice for dialysis due to his medical history. Patient states he understands and accepts using the peritoneal catheter in the future for dialysis after his infection is negative. Spoke with Dr. Morgan and he is aware and agrees for peritoneal dialysis after cessation of infection. 1) Peritonitis Infectious Disease (Dr. Gilmore) on the case--> help appreciated - Dialysis cath line infection: Enterococcus Faecalis * Ciprofloxacin 400mg daily - discontinued * Vancomycin 1 gram IV MWF (started 12/19/17) for a total of 2 weeks - Images: * CT Abd/pelvis (no contrast): No definite acute intraabdominal abnormality. * ABs US negative Nephrology (Dr. Villasenor) on the case--> help appreciated * Peritoneal dialysis-->orders per nephrology * Patient had received Rocephin 1 gram IVPB Q12 (received dose today) and Vancomycin 1 gram IV stat (12/17/17) 2) Leukocytosis secondary to Peritonitis - Infectious Disease (Dr. Gilmore) on the case-->help appreciated - Hematology-oncology (Dr. Reid Benites) on the case--> help appreciated - WBC: 12.4 - Lactic acid: 1.0; Procalcitonin 0.43 - Blood cultures (12/17/17): no growth - f/u repeat blood culture - Body Fluid Culture (12/17/17): Enterococcus Faecalis - f/u repeat body fluid culture - Fungus culture (12/17/17): no fungal elements seen - preliminary - UA negative - Urine culture (12/17/17): no growth - Anaerobic Culture (12/17/17): No anaerobes isolated - Medications: * Vancomycin 1 gram IV MWF (started 12/19/17) for a total of 2 weeks * Ciprofloxacin 400mg daily -- discontinued * Tylenol 650mg prn for pain 3) ESRD on peritoneal dialysis Nephrotic Syndrome - Nephrology consulted: Dr Villasenor --> help appreciated * Peritoneal dialysis-->orders per nephrology * Vancomycin with dialysis (MWF) - Dr. Quach consulted for new dialysis line placement * Patient receiving peritoneal dialysis: Patient started about 6-7 months ago, refused last night due to pain * permacath placed on Tuesday12/21/17 4) Atypical-Hemolytic uremic syndrome - Hematology-oncology (Dr. 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 Reid Benites) --> help appreciated - Platelets 41 (no signs of bleeding) - Spoke with Dr. Benites who recommends transfusing 1 unit of platelets prior to surgery of permacath placement 12/21/17 - Spoke with Dr. Benites who agrees to giving patient one dose of desmopressin 30 minutes prior to procedure 12/21/17 6) Hypertension * Clonidine 0.2mg PO BID 7.) Constipation - Abdominal Obstructive Series Xray (12/19/17): Moderate stool retention. No bowel obstruction - Enema ordered - Lactulose 20gm po once 12/21/17 and 12/22/17 - Colace 100mg po TID 8.) Prophylaxis * Protonix 40mg po daily * Florastor 250mg po BID * SCD * Thrombocytopenic - no chemical anticoagulation needed * Hard of hearing (hearing aid) Case Discussed with Dr. Leonard Ochoa PGY-1
--- NOTE | 2017-12-22 10:17 | RAD ---
PROCEDURE: HISTORY: As Above COMPARISON: None TECHNIQUE: Total fluoroscopic time utilized during the procedure: 13.2 seconds. Total dose 0.88053 mGy cm squared FINDINGS: Submitted images from the current procedure: 2 Please refer to the physician's notes performing the procedure. IMPRESSION: Less than 1 hour fluoroscopic time utilized during performance of the procedure
--- NOTE | 2017-12-22 11:15 | CT ---
PROCEDURE: CT NECK WITHOUT CONTRAST HISTORY: Right Submandibular NON Tender Mass larger3 months COMPARISON: None. TECHNIQUE: CT of the neck without intravenous contrast. Coronal and sagittal reformats generated. Radiation dose: DLP 460 mGy-cm This CT exam was performed using one or more of the following dose reduction techniques: Automated exposure control, adjustment of the mA and/or kV according to patient size, and/or use of iterative reconstruction technique. FINDINGS: NASOPHARYNX: Unremarkable. SUPRAHYOID NECK: Unremarkable oropharynx, oral cavity, parapharyngeal space and retropharyngeal space. INFRAHYOID NECK: Unremarkable larynx, hypopharynx, and supraglottic space. Vocal cords intact. MASS: There is a 15 x 18 mm well-circumscribed cystic lesion in the subcutaneous space on the right side adjacent to the mandible. The lesion measures 5 Hounsfield units in density. This most likely represents a benign cyst such as a sebaceous cyst. GLANDS: Parotid and submandibular glands unremarkable. Normal size thyroid gland, without nodule. LYMPH NODES: Normal. No lymphadenopathy. CERVICAL SPINE: No fracture or focal lesion. OTHER FINDINGS: None. IMPRESSION: Benign appearing well-circumscribed cystic lesion in right submandibular region
--- NOTE | 2017-12-22 18:49 | CP.PCM.PN ---
Subjective - Date & Time of Evaluation Date of Evaluation: 12/22/17 Time of Evaluation: 04:30 - Subjective Subjective: DICTATED Objective - Vital Signs/Intake and Output Vital Signs (last 24 hours): Temp Pulse Resp BP Pulse Ox 98.1 F 56 L 20 116/69 96 12/22/17 16:07 12/22/17 16:07 12/22/17 16:07 12/22/17 16:07 12/22/17 16:07 Intake and Output: 12/22/17 12/22/17 06:59 18:59 Intake Total 60 240 Balance 60 240 - Medications Medications: Current Medications Acetaminophen (Tylenol 325mg Tab) 650 mg PO Q6 PRN PRN Reason: Pain, moderate (4-7) Last Admin: 12/21/17 22:30 Dose: 650 mg Calcium Acetate (Phoslo) 667 mg PO TIDCC [facility] Last Admin: 12/22/17 18:45 Dose: 667 mg Clonidine HCl (Catapres) 0.2 mg PO BID [facility] Last Admin: 12/22/17 18:45 Dose: 0.2 mg Docusate Sodium (Colace) 100 mg PO TID [facility] Last Admin: 12/22/17 18:45 Dose: 100 mg Vancomycin HCl 1 gm/ Sodium (Chloride) 200 mls @ 133.333 mls/hr [place]PB [facility] Ondansetron HCl (Zofran Inj) 4 mg IVP Q6 PRN PRN Reason: Nausea/Vomiting Last Admin: 12/21/17 20:18 Dose: 4 mg Pantoprazole Sodium (Protonix Inj) 40 mg IVP DAILY [facility] Last Admin: 12/22/17 09:40 Dose: 40 mg Saccharomyces Boulardii (Florastor) 250 mg PO DAILY [facility] Last Admin: 12/22/17 09:40 Dose: 250 mg - Labs Labs: 12/22/17 09:50 12/22/17 08:09 PT 15.2 SECONDS (9.7-12.2) H 12/21/17 07:35 INR 1.3 12/21/17 07:35 APTT 30 SECONDS (21-34) 12/21/17 07:35
--- NOTE | 2017-12-23 00:15 | PN ---
DATE: SUBJECTIVE: He is status post Permacath placement and he is status post dialysis. They have not removed the catheter as his platelets have been low as told by Dr. Valle that he runs very low platelets and he may bleed as his platelets have been decreasing and he gets some medicine from Dr. Benites to keep the platelets up. The patient denies any abdominal pain now and he is feeling a little better. He is deaf in the left ear. He has a Permacath. PHYSICAL EXAMINATION HEENT: Head is atraumatic and normocephalic. CARDIOPULMONARY: S1 and S2 is regular. LUNGS: Clear. ABDOMEN: He is not complaining of any abdominal pains. Soft now. EXTREMITIES: Have no edema. LABORATORY DATA: His white count is 9.5, hemoglobin 11.2, hematocrit 33, platelet count is 21, and BUN is 17. Creatinine remains 3.7, it was 5.7 before. It is slowly coming down. His body fluid culture, which was from the abdomen was Enterococcus fecalis. It is vanco-sensitive. ASSESSMENT AND PLAN: If he is going to get dialysis, he can get it on Tuesday, Tuesday, and Tuesday. He needs to be treated minimum of two weeks. I am not sure if they are going to use the dialysis catheter in the future, but he is not having anymore abdominal pain at this time. We started with the vancomycin on 1 gm Tuesday, Tuesday, and Tuesday last week, so he should get it at least one more week Tuesday, Tuesday, and Tuesday. He is off Cipro now. He came in with bacterial peritonitis secondary to continuous peritoneal dialysis. He has end-stage renal disease and has chronic thrombocytopenia. Jaswant Gilmore MD
--- NOTE | 2017-12-23 07:29 | CP.PCM.PN ---
<Dee Ochoa - Last Filed: 12/23/17 19:31> Subjective - Date & Time of Evaluation Date of Evaluation: 12/23/17 Time of Evaluation: 07:00 - Subjective Subjective: Medicine Progress Note: Patient was seen and examined at bedside in the AM. Patient states he only had a small bowel movement yesterday but has not had another one since. He denies chest pain, shortness of breath, nausea, vomiting, or fever. Objective - Vital Signs/Intake and Output Vital Signs (last 24 hours): Temp Pulse Resp BP Pulse Ox 98.3 F 58 L 20 120/75 95 12/23/17 00:54 12/23/17 00:54 12/23/17 00:54 12/23/17 00:54 12/23/17 00:54 Intake and Output: 12/23/17 12/23/17 06:59 18:59 Intake Total 120 Balance 120 - Medications Medications: Current Medications Acetaminophen (Tylenol 325mg Tab) 650 mg PO Q6 PRN PRN Reason: Pain, moderate (4-7) Last Admin: 12/21/17 22:30 Dose: 650 mg Calcium Acetate (Phoslo) 667 mg PO TIDCC [facility] Last Admin: 12/22/17 18:45 Dose: 667 mg Clonidine HCl (Catapres) 0.2 mg PO BID [facility] Last Admin: 12/22/17 18:45 Dose: 0.2 mg Docusate Sodium (Colace) 100 mg PO TID [facility] Last Admin: 12/22/17 18:45 Dose: 100 mg Vancomycin HCl 1 gm/ Sodium (Chloride) 200 mls @ 133.333 mls/hr IVPB MWF [facility] Ondansetron HCl (Zofran Inj) 4 mg IVP Q6 PRN PRN Reason: Nausea/Vomiting Last Admin: 12/21/17 20:18 Dose: 4 mg Pantoprazole Sodium (Protonix Inj) 40 mg IVP DAILY [facility] Last Admin: 12/22/17 09:40 Dose: 40 mg Saccharomyces Boulardii (Florastor) 250 mg PO DAILY [facility] Last Admin: 12/22/17 09:40 Dose: 250 mg - Labs Labs: 12/22/17 09:50 12/22/17 08:09 PT 15.2 SECONDS (9.7-12.2) H 12/21/17 07:35 INR 1.3 12/21/17 07:35 APTT 30 SECONDS (21-34) 12/21/17 07:35 - Constitutional Appears: No Acute Distress - Head Exam Head Exam: NORMAL INSPECTION - Eye Exam Eye Exam: EOMI, Normal appearance - ENT Exam ENT Exam: Mucous Membranes Moist - Neck Exam Additional comments: Right Submandibular freely movable mass that is nontender - Respiratory Exam Respiratory Exam: Clear to Ausculation Bilateral, NORMAL BREATHING PATTERN - Cardiovascular Exam Cardiovascular Exam: REGULAR RHYTHM, +S1, +S2 - GI/Abdominal Exam GI & Abdominal Exam: Soft, Normal Bowel Sounds. absent: Tenderness Additional comments: peritoneal dialysis catheter in place - clean/dry/intact - Extremities Exam Extremities Exam: Normal Inspection - Neurological Exam Neurological Exam: Alert, Awake, Oriented x3 - Skin Skin Exam: Dry, Intact, Normal Color, Warm Additional comments: Permacath in place on the right side of the chest - clean/dry/intact Assessment and Plan - Assessment and Plan (Free Text) Assessment: 1) Peritonitis Infectious Disease (Dr. Gilmore) on the case--> help appreciated - Dialysis cath line infection: Enterococcus Faecalis * Ciprofloxacin 400mg daily - discontinued * Vancomycin 1 gram IV MWF (started 12/19/17) for a total of 2 weeks - Images: * CT Abd/pelvis (no contrast): No definite acute intraabdominal abnormality. * ABs US negative Nephrology (Dr. Villasenor) on the case--> help appreciated * Peritoneal dialysis-->orders per nephrology * Patient had received Rocephin 1 gram IVPB Q12 (received dose today) and Vancomycin 1 gram IV stat (12/17/17) 2) Leukocytosis secondary to Peritonitis - Infectious Disease (Dr. Gilmore) on the case-->help appreciated - Hematology-oncology (Dr. Reid Benites) on the case--> help appreciated - WBC: 12.4 - Lactic acid: 1.0; Procalcitonin 0.43 - Blood cultures (12/17/17): no growth - f/u repeat blood culture - Body Fluid Culture (12/17/17): Enterococcus Faecalis - f/u repeat body fluid culture - Fungus culture (12/17/17): no fungal elements seen - preliminary - UA negative - Urine culture (12/17/17): no growth - Anaerobic Culture (12/17/17): No anaerobes isolated - Medications: * Vancomycin 1 gram IV MWF (started 12/19/17) for a total of 2 weeks * Ciprofloxacin 400mg daily -- discontinued * Tylenol 650mg prn for pain 3) ESRD on peritoneal dialysis Nephrotic Syndrome - Nephrology consulted: Dr Villasenor --> help appreciated * Peritoneal dialysis-->orders per nephrology * Vancomycin with dialysis (MWF) - Dr. Quach consulted for new dialysis line placement * Patient receiving peritoneal dialysis: Patient started about 6-7 months ago, refused last night due to pain * permacath placed on Tuesday12/21/17 - Patient agrees to leave in peritoneal dialysis catheter in place for eventual use (discussed in my previous note 12/22/18) 4) Atypical-Hemolytic uremic syndrome - Hematology-oncology (Dr. 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 Reid Benites) --> help appreciated - Platelets 41 (no signs of bleeding) - Spoke with Dr. Benites who recommends transfusing 1 unit of platelets prior to surgery of permacath placement 12/21/17 - Spoke with Dr. Benites who agrees to giving patient one dose of desmopressin 30 minutes prior to procedure 12/21/17 6) Hypertension * Clonidine 0.2mg PO BID 7.) Constipation - Abdominal Obstructive Series Xray (12/19/17): Moderate stool retention. No bowel obstruction - Enema ordered - Lactulose 20gm po once 12/21/17, 12/22/17, 12/23/17 - Colace 100mg po TID 8.) Right Neck sebaceous cyst - Patient states that it has enlarged over the past 3 months - CT Soft Tissue Neck without contrast (12/21/17): There is a 15 x 18 mm well- circumscribed cystic lesion in the subcutaneous space on the right side adjacent to the mandible. This most likely represents a benign cyst such as a sebaceous cyst. 9.) Prophylaxis * Protonix 40mg po daily * Florastor 250mg po BID * SCD * Thrombocytopenic - no chemical anticoagulation needed * Hard of hearing (hearing aid) Case Discussed with Dr. Leonard Ochoa PGY-1 <Kyle Valle - Last Filed: 12/23/17 20:11> Objective - Vital Signs/Intake and Output Vital Signs (last 24 hours): Temp Pulse Resp BP Pulse Ox 98.4 F 65 20 134/85 97 12/23/17 17:15 12/23/17 17:15 12/23/17 17:15 12/23/17 17:15 12/23/17 17:15 Intake and Output: 12/23/17 12/24/17 18:59 06:59 Intake Total 120 Balance 120 - Medications Medications: Current Medications Acetaminophen (Tylenol 325mg Tab) 650 mg PO Q6 PRN PRN Reason: Pain, moderate (4-7) Last Admin: 12/21/17 22:30 Dose: 650 mg Calcium Acetate (Phoslo) 667 mg PO TIDCC [facility] Last Admin: 12/23/17 17:30 Dose: 667 mg Clonidine HCl (Catapres) 0.2 mg PO BID [facility] Last Admin: 12/23/17 17:30 Dose: 0.2 mg Docusate Sodium (Colace) 100 mg PO TID [facility] Last Admin: 12/23/17 17:30 Dose: 100 mg Vancomycin HCl 1 gm/ Sodium (Chloride) 200 mls @ 133.333 mls/hr IVPB MWF [facility] Last Admin: 12/23/17 13:39 Dose: 133.333 mls/hr Ondansetron HCl (Zofran Inj) 4 mg IVP Q6 PRN PRN Reason: Nausea/Vomiting Last Admin: 12/21/17 20:18 Dose: 4 mg Pantoprazole Sodium (Protonix Inj) 40 mg IVP DAILY [facility] Last Admin: 12/23/17 10:35 Dose: Not Given Saccharomyces Boulardii (Florastor) 250 mg PO DAILY [facility] Last Admin: 12/23/17 10:35 Dose: Not Given - Labs Labs: 12/23/17 07:14 12/23/17 07:14 PT 15.2 SECONDS (9.7-12.2) H 12/21/17 07:35 INR 1.3 12/21/17 07:35 APTT 30 SECONDS (21-34) 12/21/17 07:35 Attending/Attestation - Attestation I have personally seen and examined this patient.: Yes I have fully participated in the care of the patient.: Yes I have reviewed all pertinent clinical information, including history, physical exam and plan: Yes Notes (Text): 12/23/17 20:04 Patient was seen and examined with the resident. Exam, assessment and plan were gone over with the resident. Also on ROS: Small bowel movement yesterday and today but hard NO N/V Abdominal pain has resolved however will get suprapubic tenderness when urinating Alson on Exam: HEENT: Right Submandibular freely movable mass that is nontender (patient stated that it has enlarged over the past 3 months) GI: NT in all quadrants without rebound/guarding, Peritoneal Dialysis Catheter in LQ Resp: CTA B/L, NO R/R/W Right Upper Chest Permacath Cardio: NS1 and NS2, NO M/R/G Ext: Right Femoral Dialysis Catheter Assessments: 1). Abdominal Pain/Leukocytosis Likely secondary to the Peritonitis from the Peritoneal Fluid Culture (+) with Enterococcus 12/17/17 Blood Culture 12/17/17 NGTD Urine Culture 12/17/17 no growth Ciprofloxacin 400 mg IV 1x/day discontinued 12/22/17 Gentamicin 80 mg IV x 1 dose 12/19/17 Vancomycin 1 gm IV M-W- with HD for a total of 2 weeks from time of admission Please see reports for CT Abdomen/Pelvis, U/S Abdomen, Chest X Ray, Obstruction Series F/U repeat Blood Cultures and Peritoneal Fluid Culture taken at time of HD : as long as these are negative then plan for discharge anticipated for Tuesday12/26/17 2). ESRD on PD Vascular Surgery placed Right Chest PermACath 12/21/17 (patien was given 1 Platelet Unit and Desmopressin 20 mcg IV PRIOR to procedure ) Peritoneal Dialysis Catheter to remain in place for future use as per Nephrology Dr. Villasenor 3). HUS/Thrombocytopenia On Solaris treatment with Heme/Onc Dr. Benites with last dose 12/08/17 Was given Platelets and Desmopressin on 12/18/17 and another dose of both for before Right Chest PermACath placement 4). HTN Clonidine 0.2 mg PO 2x/day 5). Hx Left Hearing Loss/Hearing Aid 6). Right Neck Lymph Node Enlargement vs Mass? CT Soft Tissue Neck without contrast 12/21/17: likely sebacous cyst 7). Constipation Enema ordered 12/20/17 but very little stool produced as per Nurse Farnaz Colace 100 mg PO TID Polyethylene Glycol BID PRN Lactulose 20 gm PO ordered 12/21, 12/22, and 12/23 Kyle Valle D.O. 12/23/17 20:10
[2017-12-23 07:42] LABS: BASO # 0.1 K/uL (0.0-0.2); BASO % 0.6 % (0.0-2.0); EOS # 0.5 K/uL (0.0-0.7); EOS % 5.5 % (0.0-4.0); HEMOGLOBIN 11.2 g/dL (12.0-18.0); LYMPH # 3.1 K/uL (1.0-4.3); MEAN CELL VOLUME 89.3 fL (80.0-94.0); MEAN CORPUSCULAR HEMOGLOBIN 30.4 pg (27.0-31.0); MEAN CORPUSCULAR HGB CONC 34.1 g/dL (33.0-37.0); MEAN PLATELET VOLUME 8.4 fL (7.2-11.7); MONO # 1.6 K/uL (0.0-0.8); MONO % 16.5 % (0.0-10.0); NEUT # 4.4 K/uL (1.8-7.0); NEUT % 45.4 % (50.0-75.0); RBC 3.69 Mil/uL (4.40-5.90); RED CELL DISTRIBUTION WIDTH 13.7 % (11.5-14.5); WHITE BLOOD COUNT 9.7 K/uL (4.8-10.8)
[2017-12-23 07:47] LABS: ALB/GLOB RATIO 1.2 (1.0-2.1); ALBUMIN 3.7 g/dL (3.5-5.0); CALCIUM 9.1 mg/dl (8.6-10.4); MAGNESIUM 2.1 mg/dL (1.6-2.3)
[2017-12-23] MEDS: Saccharomyces Boulardi 250 mg Cap PO SCH (10:35)
--- NOTE | 2017-12-23 12:13 | CP.PCM.PN ---
Subjective - Date & Time of Evaluation Date of Evaluation: 12/23/17 Time of Evaluation: 12:10 - Subjective Subjective: seen on dialysis to UF 1500ml no more abdominal pains afebrile course HD going well pt agrees to teave in PD cath for eventual use Objective - Vital Signs/Intake and Output Vital Signs (last 24 hours): Temp Pulse Resp BP Pulse Ox 98 F 56 L 16 114/74 100 12/23/17 09:33 12/23/17 09:33 12/23/17 09:33 12/23/17 10:35 12/23/17 09:20 Intake and Output: 12/23/17 12/23/17 06:59 18:59 Intake Total 120 Balance 120 - Medications Medications: Current Medications Acetaminophen (Tylenol 325mg Tab) 650 mg PO Q6 PRN PRN Reason: Pain, moderate (4-7) Last Admin: 12/21/17 22:30 Dose: 650 mg Calcium Acetate (Phoslo) 667 mg PO TIDCC [facility] Last Admin: 12/23/17 10:35 Dose: Not Given Clonidine HCl (Catapres) 0.2 mg PO BID [facility] Last Admin: 12/23/17 10:34 Dose: Not Given Docusate Sodium (Colace) 100 mg PO TID [facility] Last Admin: 12/23/17 10:35 Dose: Not Given Vancomycin HCl 1 gm/ Sodium (Chloride) 200 mls @ 133.333 mls/hr IVPB MWF [facility] Ondansetron HCl (Zofran Inj) 4 mg IVP Q6 PRN PRN Reason: Nausea/Vomiting Last Admin: 12/21/17 20:18 Dose: 4 mg Pantoprazole Sodium (Protonix Inj) 40 mg IVP DAILY [facility] Last Admin: 12/23/17 10:35 Dose: Not Given Saccharomyces Boulardii (Florastor) 250 mg PO DAILY [facility] Last Admin: 12/23/17 10:35 Dose: Not Given - Labs Labs: 12/23/17 07:14 12/23/17 07:14 PT 15.2 SECONDS (9.7-12.2) H 12/21/17 07:35 INR 1.3 12/21/17 07:35 APTT 30 SECONDS (21-34) 12/21/17 07:35 - Constitutional Appears: No Acute Distress, Chronically Ill - Head Exam Head Exam: ATRAUMATIC, NORMAL INSPECTION - Eye Exam Eye Exam: EOMI, PERRL - Neck Exam Neck Exam: Normal Inspection. absent: Tenderness - Respiratory Exam Respiratory Exam: Clear to Ausculation Bilateral, NORMAL BREATHING PATTERN - Cardiovascular Exam Cardiovascular Exam: REGULAR RHYTHM, +S1 - GI/Abdominal Exam GI & Abdominal Exam: Soft. absent: Tenderness - Extremities Exam Extremities Exam: Normal Inspection. absent: Tenderness - Neurological Exam Neurological Exam: Alert, CN II-XII Intact - Skin Skin Exam: Dry, Warm Assessment and Plan (1) Spontaneous bacterial peritonitis Status: Acute (2) Atypical hemolytic uremic syndrome Status: Acute (3) ESRD (end stage renal disease) on dialysis Status: Acute (4) Hypertension Status: Chronic - Assessment and Plan (Free Text) Plan: Same ABs Same HD schedule Eventual return to PD
[2017-12-23] MEDS: Vancomycin 1 GM in Sodium Chloride 0.9% 200 ML IVPB SCH (13:39)
--- NOTE | 2017-12-23 21:09 | CP.PCM.PN ---
Subjective - Date & Time of Evaluation Date of Evaluation: 12/23/17 Time of Evaluation: 06:15 - Subjective Subjective: dictated Objective - Vital Signs/Intake and Output Vital Signs (last 24 hours): Temp Pulse Resp BP Pulse Ox 98.4 F 65 20 134/85 97 12/23/17 17:15 12/23/17 17:15 12/23/17 17:15 12/23/17 17:15 12/23/17 17:15 Intake and Output: 12/23/17 12/24/17 18:59 06:59 Intake Total 120 Balance 120 - Medications Medications: Current Medications Acetaminophen (Tylenol 325mg Tab) 650 mg PO Q6 PRN PRN Reason: Pain, moderate (4-7) Last Admin: 12/21/17 22:30 Dose: 650 mg Calcium Acetate (Phoslo) 667 mg PO TIDCC [facility] Last Admin: 12/23/17 17:30 Dose: 667 mg Clonidine HCl (Catapres) 0.2 mg PO BID [facility] Last Admin: 12/23/17 17:30 Dose: 0.2 mg Docusate Sodium (Colace) 100 mg PO TID [facility] Last Admin: 12/23/17 17:30 Dose: 100 mg Vancomycin HCl 1 gm/ Sodium (Chloride) 200 mls @ 133.333 mls/hr IVPB MWF [facility] Last Admin: 12/23/17 13:39 Dose: 133.333 mls/hr Ondansetron HCl (Zofran Inj) 4 mg IVP Q6 PRN PRN Reason: Nausea/Vomiting Last Admin: 12/21/17 20:18 Dose: 4 mg Pantoprazole Sodium (Protonix Inj) 40 mg IVP DAILY [facility] Last Admin: 12/23/17 10:35 Dose: Not Given Saccharomyces Boulardii (Florastor) 250 mg PO DAILY [facility] Last Admin: 12/23/17 10:35 Dose: Not Given - Labs Labs: 12/23/17 07:14 12/23/17 07:14 PT 15.2 SECONDS (9.7-12.2) H 12/21/17 07:35 INR 1.3 12/21/17 07:35 APTT 30 SECONDS (21-34) 12/21/17 07:35
--- NOTE | 2017-12-24 00:39 | PN ---
DATE: SUBJECTIVE: The patient is feeling better. He denies abdominal pain. He is hard of hearing. He also has a history of low platelets. PHYSICAL EXAMINATION: VITAL SIGNS: He is afebrile, T-max is 98.4, pulse 65, blood pressure 134/85, and respirations are 20. HEENT: Head is atraumatic, normocephalic.. NECK: Supple. LUNGS: Clear. HEART: S1 and S2 are regular. ABDOMEN: Soft, nontender. He still has the peritoneal dialysis catheter. His platelets are low at 15. Hemoglobin is 11.2, white count is 9.7. His fluid grew Enterococcus faecalis and which was vancomycin sensitive and Cipro sensitive; however; Cipro was discontinued and he is on vancomycin. He gets it after each dialysis. He will need it for 2 weeks at least. Rest of the plan will be as suggested by Dr. Benites and Dr. Villasenor, they are still looking for peritoneal cell count to see if it has improved and if he can undergo peritoneal dialysis. We will follow. Jaswant Gilmore MD
--- NOTE | 2017-12-24 01:41 | CP.PCM.PN ---
<Marcelo Stevens - Last Filed: 12/24/17 01:42> Subjective - Date & Time of Evaluation Date of Evaluation: 12/24/17 Time of Evaluation: 05:41 - Subjective Subjective: Medicine Progress Note: Patient was seen and examined at bedside in the AM. Patient states he only had a small bowel movement yesterday but has not had another one since. He denies chest pain, shortness of breath, nausea, vomiting, or fever. Objective - Vital Signs/Intake and Output Vital Signs (last 24 hours): Temp Pulse Resp BP Pulse Ox 98.3 F 65 20 105/68 97 12/23/17 23:30 12/23/17 23:30 12/23/17 23:30 12/23/17 23:30 12/23/17 23:30 Intake and Output: 12/23/17 12/24/17 18:59 06:59 Intake Total 120 Balance 120 - Medications Medications: Current Medications Acetaminophen (Tylenol 325mg Tab) 650 mg PO Q6 PRN PRN Reason: Pain, moderate (4-7) Last Admin: 12/21/17 22:30 Dose: 650 mg Calcium Acetate (Phoslo) 667 mg PO TIDCC [facility] Last Admin: 12/23/17 17:30 Dose: 667 mg Clonidine HCl (Catapres) 0.2 mg PO BID [facility] Last Admin: 12/23/17 17:30 Dose: 0.2 mg Docusate Sodium (Colace) 100 mg PO TID [facility] Last Admin: 12/23/17 17:30 Dose: 100 mg Vancomycin HCl 1 gm/ Sodium (Chloride) 200 mls @ 133.333 mls/hr IVPB MWF [facility] Last Admin: 12/23/17 13:39 Dose: 133.333 mls/hr Ondansetron HCl (Zofran Inj) 4 mg IVP Q6 PRN PRN Reason: Nausea/Vomiting Last Admin: 12/21/17 20:18 Dose: 4 mg Pantoprazole Sodium (Protonix Inj) 40 mg IVP DAILY [facility] Last Admin: 12/23/17 10:35 Dose: Not Given Saccharomyces Boulardii (Florastor) 250 mg PO DAILY [facility] Last Admin: 12/23/17 10:35 Dose: Not Given - Labs Labs: 12/23/17 07:14 12/23/17 07:14 PT 15.2 SECONDS (9.7-12.2) H 12/21/17 07:35 INR 1.3 12/21/17 07:35 APTT 30 SECONDS (21-34) 12/21/17 07:35 - Head Exam Head Exam: ATRAUMATIC, NORMAL INSPECTION, NORMOCEPHALIC - Eye Exam Eye Exam: EOMI, Normal appearance, PERRL Pupil Exam: NORMAL ACCOMODATION, PERRL. absent: Irregular, Unequal - ENT Exam ENT Exam: Mucous Membranes Moist, Normal Exam, Normal Oropharynx - Neck Exam Neck Exam: Full ROM, Normal Inspection - Respiratory Exam Respiratory Exam: Clear to Ausculation Bilateral, NORMAL BREATHING PATTERN - Cardiovascular Exam Cardiovascular Exam: REGULAR RHYTHM, +S1, +S2 - Extremities Exam Extremities Exam: Full ROM. absent: Joint Swelling, Pedal Edema - Back Exam Back Exam: NORMAL INSPECTION. absent: CVA tenderness (R), paraspinal tenderness - Neurological Exam Neurological Exam: Alert, Awake, CN II-XII Intact, Oriented x3 - Psychiatric Exam Psychiatric exam: Normal Affect, Normal Mood - Skin Skin Exam: Dry, Intact Assessment and Plan - Assessment and Plan (Free Text) Plan: 1) Peritonitis Infectious Disease (Dr. Gilmore) on the case--> help appreciated - Dialysis cath line infection: Enterococcus Faecalis * Ciprofloxacin 400mg daily - discontinued * Vancomycin 1 gram IV MWF (started 12/19/17) for a total of 2 weeks - Images: * CT Abd/pelvis (no contrast): No definite acute intraabdominal abnormality. * ABs US negative Nephrology (Dr. Villasenor) on the case--> help appreciated * Peritoneal dialysis-->orders per nephrology * Patient had received Rocephin 1 gram IVPB Q12 (received dose today) and Vancomycin 1 gram IV stat (12/17/17) 2) Leukocytosis secondary to Peritonitis - Infectious Disease (Dr. Gilmore) on the case-->help appreciated - Hematology-oncology (Dr. Reid Benites) on the case--> help appreciated - WBC: 12.4 - Lactic acid: 1.0; Procalcitonin 0.43 - Blood cultures (12/17/17): no growth - f/u repeat blood culture - Body Fluid Culture (12/17/17): Enterococcus Faecalis - f/u repeat body fluid culture - Fungus culture (12/17/17): no fungal elements seen - preliminary - UA negative - Urine culture (12/17/17): no growth - Anaerobic Culture (12/17/17): No anaerobes isolated - Medications: * Vancomycin 1 gram IV MWF (started 12/19/17) for a total of 2 weeks * Ciprofloxacin 400mg daily -- discontinued * Tylenol 650mg prn for pain 3) ESRD on peritoneal dialysis Nephrotic Syndrome - Nephrology consulted: Dr Villasenor --> help appreciated * Peritoneal dialysis-->orders per nephrology * Vancomycin with dialysis (MWF) - Dr. Quach consulted for new dialysis line placement * Patient receiving peritoneal dialysis: Patient started about 6-7 months ago, refused last night due to pain * permacath placed on Tuesday12/21/17 - Patient agrees to leave in peritoneal dialysis catheter in place for eventual use (discussed in my previous note 12/22/18) 4) Atypical-Hemolytic uremic syndrome - Hematology-oncology (Dr. 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 Reid Benites) --> help appreciated - Platelets 41 (no signs of bleeding) - Spoke with Dr. Benites who recommends transfusing 1 unit of platelets prior to surgery of permacath placement 12/21/17 - Spoke with Dr. Benites who agrees to giving patient one dose of desmopressin 30 minutes prior to procedure 12/21/17 6) Hypertension * Clonidine 0.2mg PO BID 7.) Constipation - Abdominal Obstructive Series Xray (12/19/17): Moderate stool retention. No bowel obstruction - Enema ordered - Lactulose 20gm po once 12/21/17, 12/22/17, 12/23/17 - Colace 100mg po TID 8.) Right Neck sebaceous cyst - Patient states that it has enlarged over the past 3 months - CT Soft Tissue Neck without contrast (12/21/17): There is a 15 x 18 mm well- circumscribed cystic lesion in the subcutaneous space on the right side adjacent to the mandible. This most likely represents a benign cyst such as a sebaceous cyst. 9.) Prophylaxis * Protonix 40mg po daily * Florastor 250mg po BID * SCD * Thrombocytopenic - no chemical anticoagulation needed * Hard of hearing (hearing aid) <Kyle Valle - Last Filed: 12/24/17 10:41> Objective - Vital Signs/Intake and Output Vital Signs (last 24 hours): Temp Pulse Resp BP Pulse Ox 97.9 F 71 17 119/78 96 12/24/17 07:00 12/24/17 07:00 12/24/17 07:00 12/24/17 07:00 12/24/17 07:00 Intake and Output: 12/24/17 12/24/17 06:59 18:59 Intake Total 200 Balance 200 - Medications Medications: Current Medications Acetaminophen (Tylenol 325mg Tab) 650 mg PO Q6 PRN PRN Reason: Pain, moderate (4-7) Last Admin: 12/21/17 22:30 Dose: 650 mg Calcium Acetate (Phoslo) 667 mg PO TIDCC [facility] Last Admin: 12/24/17 08:53 Dose: 667 mg Clonidine HCl (Catapres) 0.2 mg PO BID [facility] Last Admin: 12/24/17 09:57 Dose: 0.2 mg Docusate Sodium (Colace) 100 mg PO TID [facility] Last Admin: 12/24/17 09:57 Dose: 100 mg Vancomycin HCl 1 gm/ Sodium (Chloride) 200 mls @ 133.333 mls/hr IVPB MWF [facility] Last Admin: 12/23/17 13:39 Dose: 133.333 mls/hr Ondansetron HCl (Zofran Inj) 4 mg IVP Q6 PRN PRN Reason: Nausea/Vomiting Last Admin: 12/21/17 20:18 Dose: 4 mg Pantoprazole Sodium (Protonix Inj) 40 mg IVP DAILY [facility] Last Admin: 12/24/17 09:57 Dose: 40 mg Saccharomyces Boulardii (Florastor) 250 mg PO DAILY [facility] Last Admin: 12/24/17 09:57 Dose: 250 mg - Labs Labs: 12/24/17 07:10 12/24/17 07:10 PT 15.2 SECONDS (9.7-12.2) H 12/21/17 07:35 INR 1.3 12/21/17 07:35 APTT 30 SECONDS (21-34) 12/21/17 07:35 Attending/Attestation - Attestation I have personally seen and examined this patient.: Yes I have fully participated in the care of the patient.: Yes I have reviewed all pertinent clinical information, including history, physical exam and plan: Yes Notes (Text): 12/24/17 10:31 Patient was seen and examined 10:15 AM 12/24/17 563 A Also on ROS: Had normal bowel movement today NO N/V with breakfast or dinner the night before Abdominal pain has resolved however will get suprapubic tenderness when urinating NO other complaints upon FULL ROS Alson on Exam: HEENT: Right Submandibular freely movable mass that is nontender (patient stated that it has enlarged over the past 3 months), EOMI, PERRLA, NO pharyngeal erythema/exudate, NO thyromegaly GI: NT in all quadrants without rebound/guarding, Peritoneal Dialysis Catheter in place at LQ with out any bleeding at insertion site, BS x 4, Soft, NO HSM Resp: CTA B/L, NO R/R/W Right Upper Chest Permacath in place without any bleeding at insertion site Cardio: NS1 and NS2, NO M/R/G Ext: Right Femoral Dialysis Catheter site without any bruising or bleeding ( this was removed by surgery team), Pulses are strong and equal, NO edema, Capillary Refill is 2 seconds Neuro: CN II through XII are grossly intact Assessments: 1). Abdominal Pain/Leukocytosis Likely secondary to the Peritonitis from the Peritoneal Fluid Culture (+) with Enterococcus 12/17/17 Blood Culture 12/17/17 NGTD Urine Culture 12/17/17 no growth Ciprofloxacin 400 mg IV 1x/day discontinued 12/22/17 Gentamicin 80 mg IV x 1 dose 12/19/17 Vancomycin 1 gm IV -W- with HD for a total of 2 weeks from time of admission Please see reports for CT Abdomen/Pelvis, U/S Abdomen, Chest X Ray, Obstruction Series F/U repeat Blood Cultures and Peritoneal Fluid Culture taken at time of HD : as long as these are negative then plan for discharge anticipated for Tuesday12/26/17 2). ESRD on PD Vascular Surgery placed Right Chest PermACath 12/21/17 (patien was given 1 Platelet Unit and Desmopressin 20 mcg IV PRIOR to procedure ) Peritoneal Dialysis Catheter to remain in place for future use as per Nephrology Dr. Villasenor Phoslo 667 mg PO TID 3). HUS/Thrombocytopenia On Solaris treatment with Heme/Onc Dr. Benites with last dose 12/08/17 Was given Platelets and Desmopressin on 12/18/17 and another dose of both for before Right Chest PermACath placement Will transfuse Platelets should they fall below 10 4). HTN Clonidine 0.2 mg PO 2x/day 5). Hx Left Hearing Loss/Hearing Aid 6). Right Neck Lymph Node Enlargement vs Mass? CT Soft Tissue Neck without contrast 12/21/17: likely sebacous cyst 7). Constipation Enema ordered 12/20/17 but very little stool produced as per Nurse Farnaz Colace 100 mg PO TID Polyethylene Glycol BID PRN Lactulose 20 gm PO ordered 12/21, 12/22, and 12/23: patient had normal bowel movement morning 12/24/17 8). Prophylaxis Zofran 4 mg IV Q6H PRN N/V Protonix 40 mg PO 1x/day Florastor 250 mg PO 2x/day (not within 2 hours of antibiotic dose) Tylenol 650 mg PO Q6H PRN Moderate Pain F/U repeat Blood Cultures and Peritoneal Fluid Culture taken at time of HD : as long as these are negative then plan for discharge anticipated for Tuesday12/26/17 Kyle Valle D.O.
[2017-12-24 07:34] LABS: BASO % 0.4 % (0.0-2.0); EOS # 0.6 K/uL (0.0-0.7); HEMOGLOBIN 12.3 g/dL (12.0-18.0); LYMPH # 3.1 K/uL (1.0-4.3); LYMPH % 25.4 % (20.0-40.0); MEAN CELL VOLUME 88.9 fL (80.0-94.0); MEAN CORPUSCULAR HEMOGLOBIN 30.3 pg (27.0-31.0); MEAN CORPUSCULAR HGB CONC 34.1 g/dL (33.0-37.0); MEAN PLATELET VOLUME 8.3 fL (7.2-11.7); MONO # 1.5 K/uL (0.0-0.8); MONO % 12.6 % (0.0-10.0); NEUT # 6.8 K/uL (1.8-7.0); NEUT % 56.6 % (50.0-75.0); NRBC % 0.2 % (0.0-2.0); RBC 4.04 Mil/uL (4.40-5.90); RED CELL DISTRIBUTION WIDTH 13.8 % (11.5-14.5)
[2017-12-24 07:54] LABS: ALB/GLOB RATIO 1.2 (1.0-2.1); ALBUMIN 3.8 g/dL (3.5-5.0); CALCIUM 9.4 mg/dl (8.6-10.4); MAGNESIUM 2.2 mg/dL (1.6-2.3)
[2017-12-24] MEDS: Saccharomyces Boulardi 250 mg Cap PO SCH (09:57)
--- NOTE | 2017-12-24 10:49 | CP.PCM.PN ---
Subjective - Date & Time of Evaluation Date of Evaluation: 12/24/17 Time of Evaluation: 10:46 - Subjective Subjective: pt seen and examined in bed, comfortable Had hd yesterday- uf 1500 cc afebrile no sob, no abdominal pain ROS- as per HPI, other than that 10 point ros negative Objective - Vital Signs/Intake and Output Vital Signs (last 24 hours): Temp Pulse Resp BP Pulse Ox 97.9 F 71 17 119/78 96 12/24/17 07:00 12/24/17 07:00 12/24/17 07:00 12/24/17 07:00 12/24/17 07:00 Intake and Output: 12/24/17 12/24/17 06:59 18:59 Intake Total 200 Balance 200 - Medications Medications: Current Medications Acetaminophen (Tylenol 325mg Tab) 650 mg PO Q6 PRN PRN Reason: Pain, moderate (4-7) Last Admin: 12/21/17 22:30 Dose: 650 mg Calcium Acetate (Phoslo) 667 mg PO TIDCC [facility] Last Admin: 12/24/17 08:53 Dose: 667 mg Clonidine HCl (Catapres) 0.2 mg PO BID [facility] Last Admin: 12/24/17 09:57 Dose: 0.2 mg Docusate Sodium (Colace) 100 mg PO TID [facility] Last Admin: 12/24/17 09:57 Dose: 100 mg Vancomycin HCl 1 gm/ Sodium (Chloride) 200 mls @ 133.333 mls/hr IVPB MWF [facility] Last Admin: 12/23/17 13:39 Dose: 133.333 mls/hr Ondansetron HCl (Zofran Inj) 4 mg IVP Q6 PRN PRN Reason: Nausea/Vomiting Last Admin: 12/21/17 20:18 Dose: 4 mg Pantoprazole Sodium (Protonix Inj) 40 mg IVP DAILY [facility] Last Admin: 12/24/17 09:57 Dose: 40 mg Saccharomyces Boulardii (Florastor) 250 mg PO DAILY [facility] Last Admin: 12/24/17 09:57 Dose: 250 mg - Labs Labs: 12/24/17 07:10 12/24/17 07:10 PT 15.2 SECONDS (9.7-12.2) H 12/21/17 07:35 INR 1.3 12/21/17 07:35 APTT 30 SECONDS (21-34) 12/21/17 07:35 - Constitutional Appears: Well, Non-toxic - Head Exam Head Exam: ATRAUMATIC, NORMOCEPHALIC - Eye Exam Eye Exam: EOMI, PERRL - ENT Exam ENT Exam: Mucous Membranes Moist - Neck Exam Neck Exam: Full ROM - Respiratory Exam Respiratory Exam: Clear to Ausculation Bilateral. absent: Rhonchi, Wheezes - Cardiovascular Exam Cardiovascular Exam: REGULAR RHYTHM, +S1, +S2 - GI/Abdominal Exam GI & Abdominal Exam: Soft. absent: Distended, Tenderness Additional comments: PD catheter in place - Extremities Exam Extremities Exam: absent: Pedal Edema - Neurological Exam Neurological Exam: Alert, Awake, Oriented x3 - Psychiatric Exam Psychiatric exam: Normal Affect, Normal Mood - Skin Skin Exam: Intact, Warm Assessment and Plan (1) Spontaneous bacterial peritonitis Status: Acute (2) Anemia Status: Acute (3) Atypical hemolytic uremic syndrome Status: Acute (4) ESRD (end stage renal disease) on dialysis Status: Acute (5) Hypertension Status: Chronic - Assessment and Plan (Free Text) Plan: now doing hemo next HD tuesday on Abx for peritonitis
--- NOTE | 2017-12-24 18:59 | CP.PCM.PN ---
Subjective - Date & Time of Evaluation Date of Evaluation: 12/24/17 Time of Evaluation: 18:00 - Subjective Subjective: No complaints feeling better Objective - Vital Signs/Intake and Output Vital Signs (last 24 hours): Temp Pulse Resp BP Pulse Ox 98.5 F 74 20 114/77 95 12/24/17 18:19 12/24/17 18:19 12/24/17 18:19 12/24/17 18:19 12/24/17 18:19 Intake and Output: 12/24/17 12/24/17 06:59 18:59 Intake Total 200 800 Balance 200 800 - Medications Medications: Current Medications Acetaminophen (Tylenol 325mg Tab) 650 mg PO Q6 PRN PRN Reason: Pain, moderate (4-7) Last Admin: 12/21/17 22:30 Dose: 650 mg Calcium Acetate (Phoslo) 667 mg PO TIDCC [facility] Last Admin: 12/24/17 17:24 Dose: 667 mg Clonidine HCl (Catapres) 0.2 mg PO BID [facility] Last Admin: 12/24/17 17:24 Dose: 0.2 mg Docusate Sodium (Colace) 100 mg PO TID [facility] Last Admin: 12/24/17 17:24 Dose: 100 mg Vancomycin HCl 1 gm/ Sodium (Chloride) 200 mls @ 133.333 mls/hr IVPB MWF [facility] Last Admin: 12/23/17 13:39 Dose: 133.333 mls/hr Ondansetron HCl (Zofran Inj) 4 mg IVP Q6 PRN PRN Reason: Nausea/Vomiting Last Admin: 12/21/17 20:18 Dose: 4 mg Pantoprazole Sodium (Protonix Inj) 40 mg IVP DAILY [facility] Last Admin: 12/24/17 09:57 Dose: 40 mg Saccharomyces Boulardii (Florastor) 250 mg PO DAILY [facility] Last Admin: 12/24/17 09:57 Dose: 250 mg - Labs Labs: 12/24/17 07:10 12/24/17 07:10 PT 15.2 SECONDS (9.7-12.2) H 12/21/17 07:35 INR 1.3 12/21/17 07:35 APTT 30 SECONDS (21-34) 12/21/17 07:35 - Head Exam Head Exam: ATRAUMATIC - Eye Exam Eye Exam: Normal appearance - ENT Exam ENT Exam: Mucous Membranes Dry - Respiratory Exam Respiratory Exam: NORMAL BREATHING PATTERN - Cardiovascular Exam Cardiovascular Exam: +S1, +S2 - GI/Abdominal Exam GI & Abdominal Exam: Normal Bowel Sounds Assessment and Plan (1) Atypical hemolytic uremic syndrome Assessment & Plan: outpatient treatment Status: Acute (2) Elevated WBC count Assessment & Plan: on antibiotics Status: Chronic (3) Anemia Assessment & Plan: renal disease atypical HUS Status: Acute
--- NOTE | 2017-12-25 07:37 | CP.PCM.PN ---
<Marcelo Stevens - Last Filed: 12/25/17 07:39> Subjective - Date & Time of Evaluation Date of Evaluation: 12/25/17 Time of Evaluation: 07:37 - Subjective Subjective: Medicine Progress Note: Patient was seen and examined at bedside in the AM. Patient states he only had a small bowel movement yesterday but has not had another one since. He denies chest pain, shortness of breath, nausea, vomiting, or fever. Objective - Vital Signs/Intake and Output Vital Signs (last 24 hours): Temp Pulse Resp BP Pulse Ox 97.8 F 62 20 105/70 95 12/25/17 00:00 12/25/17 00:00 12/25/17 00:00 12/25/17 00:00 12/25/17 00:00 - Medications Medications: Current Medications Acetaminophen (Tylenol 325mg Tab) 650 mg PO Q6 PRN PRN Reason: Pain, moderate (4-7) Last Admin: 12/21/17 22:30 Dose: 650 mg Calcium Acetate (Phoslo) 667 mg PO TIDCC [facility] Last Admin: 12/24/17 17:24 Dose: 667 mg Clonidine HCl (Catapres) 0.2 mg PO BID [facility] Last Admin: 12/24/17 17:24 Dose: 0.2 mg Docusate Sodium (Colace) 100 mg PO TID [facility] Last Admin: 12/24/17 17:24 Dose: 100 mg Vancomycin HCl 1 gm/ Sodium (Chloride) 200 mls @ 133.333 mls/hr IVPB MWF [facility] Last Admin: 12/23/17 13:39 Dose: 133.333 mls/hr Ondansetron HCl (Zofran Inj) 4 mg IVP Q6 PRN PRN Reason: Nausea/Vomiting Last Admin: 12/21/17 20:18 Dose: 4 mg Pantoprazole Sodium (Protonix Inj) 40 mg IVP DAILY [facility] Last Admin: 12/24/17 09:57 Dose: 40 mg Saccharomyces Boulardii (Florastor) 250 mg PO DAILY [facility] Last Admin: 12/24/17 09:57 Dose: 250 mg - Labs Labs: 12/24/17 07:10 12/24/17 07:10 PT 15.2 SECONDS (9.7-12.2) H 12/21/17 07:35 INR 1.3 12/21/17 07:35 APTT 30 SECONDS (21-34) 12/21/17 07:35 - Head Exam Head Exam: ATRAUMATIC, NORMAL INSPECTION, NORMOCEPHALIC - Eye Exam Eye Exam: EOMI, Normal appearance, PERRL. absent: Periorbital tenderness Pupil Exam: NORMAL ACCOMODATION, PERRL. absent: Irregular, Unequal - ENT Exam ENT Exam: Mucous Membranes Moist, Normal Exam, Normal Oropharynx - Neck Exam Neck Exam: absent: Lymphadenopathy, Thyromegaly - Respiratory Exam Respiratory Exam: Clear to Ausculation Bilateral - GI/Abdominal Exam GI & Abdominal Exam: Soft, Normal Bowel Sounds - Extremities Exam Extremities Exam: Full ROM. absent: Joint Swelling, Pedal Edema, Tenderness - Back Exam Back Exam: NORMAL INSPECTION. absent: CVA tenderness (L), CVA tenderness (R), paraspinal tenderness - Neurological Exam Neurological Exam: Alert, Awake, CN II-XII Intact - Psychiatric Exam Psychiatric exam: Normal Affect, Normal Mood - Skin Skin Exam: Dry, Intact Assessment and Plan - Assessment and Plan (Free Text) Plan: 1) Peritonitis Infectious Disease (Dr. Gilmore) on the case--> help appreciated - Dialysis cath line infection: Enterococcus Faecalis Ciprofloxacin 400mg daily - discontinued Vancomycin 1 gram IV MWF (started 12/19/17) for a total of 2 weeks - Images: CT Abd/pelvis (no contrast): No definite acute intraabdominal abnormality. ABs US negative Nephrology (Dr. Villasenor) on the case--> help appreciated Peritoneal dialysis-->orders per nephrology Patient had received Rocephin 1 gram IVPB Q12 (received dose today) and Vancomycin 1 gram IV stat (12/17/17) 2) Leukocytosis secondary to Peritonitis - Infectious Disease (Dr. Gilmore) on the case-->help appreciated - Hematology-oncology (Dr. Reid Benites) on the case--> help appreciated - WBC: 12.4 - Lactic acid: 1.0; Procalcitonin 0.43 - Blood cultures (12/17/17): no growth - f/u repeat blood culture - Body Fluid Culture (12/17/17): Enterococcus Faecalis - f/u repeat body fluid culture - Fungus culture (12/17/17): no fungal elements seen - preliminary - UA negative - Urine culture (12/17/17): no growth - Anaerobic Culture (12/17/17): No anaerobes isolated - Medications: Vancomycin 1 gram IV MWF (started 12/19/17) for a total of 2 weeks Ciprofloxacin 400mg daily -- discontinued Tylenol 650mg prn for pain 3) ESRD on peritoneal dialysis Nephrotic Syndrome - Nephrology consulted: Dr Villasenor --> help appreciated Peritoneal dialysis-->orders per nephrology Vancomycin with dialysis (MWF) - Dr. Quach consulted for new dialysis line placement Patient receiving peritoneal dialysis: Patient started about 6-7 months ago, refused last night due to pain permacath placed on Tuesday12/21/17 - Patient agrees to leave in peritoneal dialysis catheter in place for eventual use (discussed in my previous note 12/22/18) 4) Atypical-Hemolytic uremic syndrome - Hematology-oncology (Dr. Reid Benites) on the case--> help appreciated: today given one dose of desmopressin and 1 U platelets Per last admission: Renal biopsy: thrombotic microangiopathy, vascular nephrosclerosis, global and segmental glomerulosclerosis, intact linear glomeruar and distal tubular basement - Patient is currently on Soliris (Eculuazmab) On Soliris treatment (last dose 12/08/17) 5.) Thrombocytopenia secondary to HUS - Hematology-oncology (Dr. Reid Benites) --> help appreciated - Platelets 41 (no signs of bleeding) - Spoke with Dr. Benites who recommends transfusing 1 unit of platelets prior to surgery of permacath placement 12/21/17 - Spoke with Dr. Benites who agrees to giving patient one dose of desmopressin 30 minutes prior to procedure 12/21/17 6) Hypertension Clonidine 0.2mg PO BID 7.) Constipation - Abdominal Obstructive Series Xray (12/19/17): Moderate stool retention. No bowel obstruction - Enema ordered - Lactulose 20gm po once 12/21/17, 12/22/17, 12/23/17 - Colace 100mg po TID 8.) Right Neck sebaceous cyst - Patient states that it has enlarged over the past 3 months - CT Soft Tissue Neck without contrast (12/21/17): There is a 15 x 18 mm well- circumscribed cystic lesion in the subcutaneous space on the right side adjacent to the mandible. This most likely represents a benign cyst such as a sebaceous cyst. 9.) Prophylaxis Protonix 40mg po daily Florastor 250mg po BID [facility] Thrombocytopenic - no chemical anticoagulation needed Hard of hearing (hearing aid) <Kyle Valle - Last Filed: 12/25/17 11:45> Objective - Vital Signs/Intake and Output Vital Signs (last 24 hours): Temp Pulse Resp BP Pulse Ox 98.0 F 67 20 117/75 97 12/25/17 07:40 12/25/17 07:40 12/25/17 07:40 12/25/17 07:40 12/25/17 07:40 - Medications Medications: Current Medications Acetaminophen (Tylenol 325mg Tab) 650 mg PO Q6 PRN PRN Reason: Pain, moderate (4-7) Last Admin: 12/21/17 22:30 Dose: 650 mg Calcium Acetate (Phoslo) 667 mg PO TIDCC [facility] Last Admin: 12/25/17 08:43 Dose: 667 mg Clonidine HCl (Catapres) 0.2 mg PO BID [facility] Last Admin: 12/25/17 09:31 Dose: 0.2 mg Docusate Sodium (Colace) 100 mg PO TID [facility] Last Admin: 12/25/17 09:32 Dose: 100 mg Vancomycin HCl 1 gm/ Sodium (Chloride) 200 mls @ 133.333 mls/hr IVPB MWF [facility] Last Admin: 12/23/17 13:39 Dose: 133.333 mls/hr Ondansetron HCl (Zofran Inj) 4 mg IVP Q6 PRN PRN Reason: Nausea/Vomiting Last Admin: 12/21/17 20:18 Dose: 4 mg Oxycodone/Acetaminophen (Percocet 5/325 Mg Tab) 1 tab PO ONCE ONE Stop: 12/25/17 11:46 Pantoprazole Sodium (Protonix Inj) 40 mg IVP DAILY [facility] Last Admin: 12/25/17 09:31 Dose: 40 mg Saccharomyces Boulardii (Florastor) 250 mg PO DAILY [facility] Last Admin: 12/25/17 09:31 Dose: 250 mg - Labs Labs: 12/25/17 07:05 12/24/17 07:10 PT 15.2 SECONDS (9.7-12.2) H 12/21/17 07:35 INR 1.3 12/21/17 07:35 APTT 30 SECONDS (21-34) 12/21/17 07:35 Attending/Attestation - Attestation I have personally seen and examined this patient.: Yes I have fully participated in the care of the patient.: Yes I have reviewed all pertinent clinical information, including history, physical exam and plan: Yes Notes (Text): 12/25/17 11:31 Patient was seen and examined 11:15 AM 12/25/17 563 A Also on ROS: Had 2 normal bowel movements on 12/24/17 and none yet today NO N/V: this has resolved Abdominal pain has resolved however will get suprapubic tenderness when urinating and at times scrotal pain when urinating/coughing NO other complaints upon FULL ROS Alson on Exam: HEENT: Right Submandibular freely movable mass that is nontender (patient stated that it has enlarged over the past 3 months), EOMI, PERRLA, NO pharyngeal erythema/exudate, NO thyromegaly GI: NT in all quadrants without rebound/guarding, Peritoneal Dialysis Catheter in place at LQ with out any bleeding at insertion site, BS x 4, Soft, NO HSM Resp: CTA B/L, NO R/R/W Right Upper Chest Permacath in place without any bleeding at insertion site Cardio: NS1 and NS2, NO M/R/G Ext: Right Femoral Dialysis Catheter site without any bruising or bleeding ( this was removed by surgery team), Pulses are strong and equal, NO edema, Capillary Refill is 2 seconds : NO scrotal hernia/inguinal hernia palpated, NO testicular masses palpated, NO penile lesions noted, All of these areas were nontender to palpation Neuro: CN II through XII are grossly intact Assessments: 1). Abdominal Pain/Leukocytosis Likely secondary to the Peritonitis from the Peritoneal Fluid Culture (+) with Enterococcus 12/17/17 Repeat Peritoneal Fluid Culture 12/23/17 preliminary is negative Blood Culture 12/17/17 negative Repeat Blood Culture 12/23/17: negative to date Urine Culture 12/17/17 no growth Ciprofloxacin 400 mg IV 1x/day discontinued 12/22/17 Gentamicin 80 mg IV x 1 dose 12/19/17 Vancomycin 1 gm IV M-- with HD for a total of 2 weeks from time of admission Please see reports for CT Abdomen/Pelvis, U/S Abdomen, Chest X Ray, Obstruction Series F/U repeat Blood Cultures and Peritoneal Fluid Culture taken at time of HD : as long as these are negative then plan for discharge anticipated for Tuesday12/26/17 2). ESRD on PD Vascular Surgery placed Right Chest PermACath 12/21/17 (patien was given 1 Platelet Unit and Desmopressin 20 mcg IV PRIOR to procedure ) Peritoneal Dialysis Catheter to remain in place for future use as per Nephrology Dr. Villasenor Phoslo 667 mg PO TID 3). HUS/Thrombocytopenia On Solaris treatment with Heme/Onc Dr. Benites with last dose 12/08/17 Was given Platelets and Desmopressin on 12/18/17 and another dose of both for before Right Chest PermACath placement 1 Platelet Unit to be transfused at 12:00 PM 12/25/17 ordered as platelet level dropped below 10 4). HTN Clonidine 0.2 mg PO 2x/day 5). Hx Left Hearing Loss/Hearing Aid 6). Right Neck Lymph Node Enlargement vs Mass? CT Soft Tissue Neck without contrast 12/21/17: likely sebaceous cyst 7). Constipation Enema ordered 12/20/17 but very little stool produced as per Nurse Osei on this date Colace 100 mg PO TID Polyethylene Glycol BID PRN Lactulose 20 gm PO ordered 12/21, 12/22, and 12/23: patient had 2 normal bowel movement morning of 12/24/17 8). Prophylaxis Zofran 4 mg IV Q6H PRN N/V Protonix 40 mg PO 1x/day Florastor 250 mg PO 2x/day (not within 2 hours of antibiotic dose) Tylenol 650 mg PO Q6H PRN Moderate Pain For patient complaint of pain with urination, we can not give Pyridium secondary to the Renal Failure. Therefore 1 dose of Percocet was given 12/25/17. CT Abdomen/Pelvis does not show any abnormality in the genital/urinary system and exam of penis, scrotum, testes, inguinal area were unremarkable. If this persists then will need further evaluation by Urology as outpatient through the [facility]. F/U repeat Blood Cultures and Peritoneal Fluid Culture taken at time of HD : as long as these are negative then plan for discharge anticipated for Tuesday12/26/17 Kyle Valle D.O.
[2017-12-25 07:52] LABS: BASO # 0.1 K/uL (0.0-0.2); BASO % 0.6 % (0.0-2.0); EOS # 0.7 K/uL (0.0-0.7); EOS % 5.4 % (0.0-4.0); HEMOGLOBIN 11.7 g/dL (12.0-18.0); LYMPH # 3.8 K/uL (1.0-4.3); LYMPH % 28.6 % (20.0-40.0); MEAN CELL VOLUME 89.5 fL (80.0-94.0); MEAN CORPUSCULAR HEMOGLOBIN 29.9 pg (27.0-31.0); MEAN CORPUSCULAR HGB CONC 33.4 g/dL (33.0-37.0); MEAN PLATELET VOLUME 8.7 fL (7.2-11.7); MONO # 1.5 K/uL (0.0-0.8); MONO % 11.8 % (0.0-10.0); NEUT # 7.1 K/uL (1.8-7.0); NEUT % 53.6 % (50.0-75.0); NRBC % 0.1 % (0.0-2.0); RBC 3.9 Mil/uL (4.40-5.90); RED CELL DISTRIBUTION WIDTH 14.1 % (11.5-14.5); WHITE BLOOD COUNT 13.1 K/uL (4.8-10.8)
[2017-12-25] MEDS: Saccharomyces Boulardi 250 mg Cap PO SCH (09:31)
[2017-12-25] MEDS ORDERED: Oxycodone/Acetaminophen 5/325 mg Tab PO ONE (11:45)
[2017-12-26 07:59] LABS: HEMOGLOBIN 11.5 g/dL (12.0-18.0); MEAN CELL VOLUME 89.5 fL (80.0-94.0); MEAN CORPUSCULAR HEMOGLOBIN 29.7 pg (27.0-31.0); MEAN CORPUSCULAR HGB CONC 33.2 g/dL (33.0-37.0); MEAN PLATELET VOLUME 9.7 fL (7.2-11.7); RBC 3.88 Mil/uL (4.40-5.90); WHITE BLOOD COUNT 11.8 K/uL (4.8-10.8)
[2017-12-26 08:30] LABS: ALB/GLOB RATIO 1.3 (1.0-2.1); ALBUMIN 3.7 g/dL (3.5-5.0); CALCIUM 8.8 mg/dl (8.6-10.4)
[2017-12-26] MEDS: Vancomycin 1 GM in Sodium Chloride 0.9% 200 ML IVPB SCH ×2 (08:53→14:05)
[2017-12-26] MEDS: Saccharomyces Boulardi 250 mg Cap PO SCH (09:06)
[2017-12-26 09:41] LABS: EOS # 1.7 K/uL (0.0-0.7); LYMPH # 3.6 K/uL (1.0-4.3); NEUT # 5.9 K/uL (1.8-7.0)
--- NOTE | 2017-12-26 10:25 | OP ---
PROCEDURE DATE: 12/21/2017. PREOPERATIVE DIAGNOSES: Renal failure and thrombocytopenia. PROCEDURE CARRIED OUT: Placement of Perm-A-Cath, right jugular vein with C-arm fluoroscopy, ultrasound-guided puncture, and micropuncture technique. SURGEON: Abdelrahman Quach Jr., MD. SHAKER TENDER: Dr. Fuentes. ANESTHESIOLOGIST: Mr. Mike Ambrose. INDICATIONS: The patient is an young man with renal insufficiency, on PD, now presents with platelet count of 4000. A temporary catheter inserted previously, now requires a Perm-A-Cath for his permanent access. OPERATIVE FINDINGS: Catheter was inserted uneventfully via the jugular vein. PROCEDURE: Patient was given local anesthesia. Using ultrasound guidance and micropuncture technique, the right jugular vein was cannulated. Under fluoroscopic control, the guidewire was advanced centrally. A sheath dilator was passed over this, was exchanged for wire. After this had been done, the catheter was positioned in the appropriate location and brought out on the chest wall, flushed with heparinized saline with good return. Abdelrahman Quach Jr., MD
--- NOTE | 2017-12-26 11:24 | CP.PCM.PN ---
Subjective - Date & Time of Evaluation Date of Evaluation: 12/26/17 Time of Evaluation: 11:21 - Subjective Subjective: seen and examined in hd c/o dysuria no f/c/sob/n/v/d/bleeding/dizziness/headache/rash/cough/cp undergoing hd Objective - Vital Signs/Intake and Output Vital Signs (last 24 hours): Temp Pulse Resp BP Pulse Ox 98.2 F 69 17 110/83 96 12/26/17 09:55 12/26/17 07:51 12/26/17 09:55 12/26/17 10:55 12/26/17 09:55 Intake and Output: 12/26/17 12/26/17 06:59 18:59 Intake Total 840 Balance 840 - Medications Medications: Current Medications Acetaminophen (Tylenol 325mg Tab) 650 mg PO Q6 PRN PRN Reason: Pain, moderate (4-7) Last Admin: 12/21/17 22:30 Dose: 650 mg Calcium Acetate (Phoslo) 667 mg PO TIDCC [facility] Last Admin: 12/26/17 08:12 Dose: 667 mg Clonidine HCl (Catapres) 0.2 mg PO BID [facility] Last Admin: 12/26/17 09:07 Dose: 0.2 mg Docusate Sodium (Colace) 100 mg PO TID [facility] Last Admin: 12/26/17 09:07 Dose: 100 mg Vancomycin HCl 1 gm/ Sodium (Chloride) 200 mls @ 133.333 mls/hr IVPB MWF [facility] Last Admin: 12/23/17 13:39 Dose: 133.333 mls/hr Ondansetron HCl (Zofran Inj) 4 mg IVP Q6 PRN PRN Reason: Nausea/Vomiting Last Admin: 12/21/17 20:18 Dose: 4 mg Pantoprazole Sodium (Protonix Inj) 40 mg IVP DAILY [facility] Last Admin: 12/26/17 09:07 Dose: 40 mg Saccharomyces Boulardii (Florastor) 250 mg PO DAILY [facility] Last Admin: 12/26/17 09:06 Dose: 250 mg - Labs Labs: 12/26/17 07:35 12/26/17 07:35 PT 15.2 SECONDS (9.7-12.2) H 12/21/17 07:35 INR 1.3 12/21/17 07:35 APTT 30 SECONDS (21-34) 12/21/17 07:35 - Constitutional Appears: Non-toxic, No Acute Distress - Head Exam Head Exam: NORMAL INSPECTION - Eye Exam Eye Exam: Normal appearance, PERRL - ENT Exam ENT Exam: Mucous Membranes Moist, Normal Exam - Neck Exam Neck Exam: Full ROM, Normal Inspection - Respiratory Exam Respiratory Exam: Clear to Ausculation Bilateral, NORMAL BREATHING PATTERN - Cardiovascular Exam Cardiovascular Exam: REGULAR RHYTHM, RRR - GI/Abdominal Exam GI & Abdominal Exam: Distended (pd catheter in place), Soft, Normal Bowel Sounds - Extremities Exam Extremities Exam: Normal Inspection (rt chest permcath) - Neurological Exam Neurological Exam: Alert, Awake, CN II-XII Intact - Psychiatric Exam Psychiatric exam: Normal Affect, Normal Mood - Skin Skin Exam: Normal Color, Warm Assessment and Plan (1) Thrombocytopenia Status: Acute (2) Spontaneous bacterial peritonitis Status: Acute (3) Anemia Status: Acute (4) Atypical hemolytic uremic syndrome Status: Acute (5) ESRD on hemodialysis Status: Acute - Assessment and Plan (Free Text) Assessment: maintain hd mwf pt would benefit from eventually switching back to pd as hd carries a risk of bleeding. no avf vancomycin for enterococcus peritonitis low platelets, heme on board. no heparin w/ hd check ua urine culture
--- NOTE | 2017-12-26 13:09 | CP.PCM.PN ---
<MorroAnnabaljinder Mendoza - Last Filed: 12/26/17 17:31> Subjective - Date & Time of Evaluation Date of Evaluation: 12/26/17 Time of Evaluation: 09:25 - Subjective Subjective: Medicine Note ( [facility]) Patient was seen and examined in dialysis. Patient reports that he is doing well but still admits to mild abdominal discomfort. Patient had not other complaints. Objective - Vital Signs/Intake and Output Vital Signs (last 24 hours): Temp Pulse Resp BP Pulse Ox 98.2 F 75 17 115/90 96 12/26/17 09:55 12/26/17 09:55 12/26/17 09:55 12/26/17 12:25 12/26/17 09:55 Intake and Output: 12/26/17 12/26/17 06:59 18:59 Intake Total 840 Balance 840 - Medications Medications: Current Medications Acetaminophen (Tylenol 325mg Tab) 650 mg PO Q6 PRN PRN Reason: Pain, moderate (4-7) Last Admin: 12/21/17 22:30 Dose: 650 mg Calcium Acetate (Phoslo) 667 mg PO TIDCC [facility] Last Admin: 12/26/17 08:12 Dose: 667 mg Clonidine HCl (Catapres) 0.2 mg PO BID [facility] Last Admin: 12/26/17 09:07 Dose: 0.2 mg Docusate Sodium (Colace) 100 mg PO TID [facility] Last Admin: 12/26/17 09:07 Dose: 100 mg Vancomycin HCl 1 gm/ Sodium (Chloride) 200 mls @ 133.333 mls/hr IVPB MWF [facility] Last Admin: 12/23/17 13:39 Dose: 133.333 mls/hr Ondansetron HCl (Zofran Inj) 4 mg IVP Q6 PRN PRN Reason: Nausea/Vomiting Last Admin: 12/21/17 20:18 Dose: 4 mg Pantoprazole Sodium (Protonix Inj) 40 mg IVP DAILY [facility] Last Admin: 12/26/17 09:07 Dose: 40 mg Saccharomyces Boulardii (Florastor) 250 mg PO DAILY [facility] Last Admin: 12/26/17 09:06 Dose: 250 mg - Labs Labs: 12/26/17 07:35 12/26/17 07:35 PT 15.2 SECONDS (9.7-12.2) H 12/21/17 07:35 INR 1.3 12/21/17 07:35 APTT 30 SECONDS (21-34) 12/21/17 07:35 - Constitutional Appears: Well, No Acute Distress - Head Exam Head Exam: ATRAUMATIC, NORMAL INSPECTION - Eye Exam Eye Exam: EOMI, Normal appearance - ENT Exam ENT Exam: Mucous Membranes Moist - Respiratory Exam Respiratory Exam: NORMAL BREATHING PATTERN. absent: Rales, Rhonchi, Wheezes - Cardiovascular Exam Cardiovascular Exam: REGULAR RHYTHM, +S1, +S2 - GI/Abdominal Exam GI & Abdominal Exam: Soft, Normal Bowel Sounds Additional comments: Peritoneal dialysis catheter in place - Extremities Exam Extremities Exam: Normal Inspection. absent: Calf Tenderness, Pedal Edema - Neurological Exam Neurological Exam: Alert, Awake - Psychiatric Exam Psychiatric exam: Normal Affect - Skin Skin Exam: Normal Color Assessment and Plan (1) Spontaneous bacterial peritonitis Assessment & Plan: Infectious Disease (Dr. Gilmore) on the case--> help appreciated Nephrology (Dr. Villasenor) on the case--> help appreciated Peritoneal dialysis-->orders per nephrology Patient had received Rocephin 1 gram IVPB Q12 (received dose today) and Vancomycin 1 gram IV stat (12/17/17) Peritoneal Dialysis Catheter to remain in place for future use as per Nephrology Dr. Villasenor - Images: CT Abd/pelvis (no contrast): No definite acute intraabdominal abnormality. ABs US negative Labs: * Blood culture: Negative (12/17 & 12/23) * Urine Culture : Negative (12/17/17) * Peritoneal fluid (Negative fungus, no anaerobes isolated) * Peritoneal fluid ( Body fluid): Enterococcus Faecalis (12/17/17) * F/u repeat peritoneal fluid Medications: * Ciprofloxacin 400mg daily - discontinued * Vancomycin 1 gram IV MWF (started 12/19/17) for a total of 2 weeks * Tylenol 650mg prn for pain Status: Acute (2) Leukocytosis Assessment & Plan: Improving secondary to Peritonitis - Infectious Disease (Dr. 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 Reid Benites) on the case--> help appreciated: * Per last admission: Renal biopsy: thrombotic microangiopathy, vascular nephrosclerosis, global and segmental glomerulosclerosis, intact linear glomeruar and distal tubular basement - Patient is currently on Soliris (Eculuazmab) with Dr. Benites On Soliris treatment (last dose 12/08/17) Transfused 1 unit of platelet (12/26/17) Continue to monitor with labs Status: Acute (4) End stage renal disease Assessment & Plan: Nephrology consulted: Dr Villasenor --> help appreciated * On Peritoneal dialysis * Vancomycin 1gm daily with dialysis (MWF) for peritonitis - Dr. Quach consulted for new dialysis line placement Permacath placed on Tuesday12/21/17- Currently, in use for HD M,W,F - Patient agrees to leave in peritoneal dialysis catheter in place for eventual use; Dr. Villasenor will assist patient to set this up Medications: * Phoslo 667 mg PO TIDCC Status: Chronic (5) Hypertension Assessment & Plan: Medication: * Clonidine 0.2mg PO BID Status: Acute (6) Constipation Assessment & Plan: Abdominal Obstructive Series Xray (12/19/17): Moderate stool retention. No bowel obstruction Medication: * Colace 100mg PO TID Status: Acute (7) Cyst of neck Assessment & Plan: Right CT Soft Tissue Neck without contrast 12/21/17: There is a 15 x 18 mm well- circumscribed cystic lesion in the subcutaneous space on the right side adjacent to the mandible. This most likely represents a benign cyst such as a sebaceous cyst. Status: Chronic (8) Prophylactic measure Assessment & Plan: GI: Protonix 40mg po daily DVT: SCD, Thrombocytopenic - no chemical anticoagulation needed Florastor 250mg po BID Status: Acute <Odette Quinones V - Last Filed: 12/26/17 18:29> Objective - Vital Signs/Intake and Output Vital Signs (last 24 hours): Temp Pulse Resp BP Pulse Ox 98.4 F 73 18 129/86 98 12/26/17 17:13 12/26/17 17:13 12/26/17 17:13 12/26/17 17:13 12/26/17 16:18 Intake and Output: 12/26/17 12/26/17 06:59 18:59 Intake Total 840 201 Balance 840 201 - Medications Medications: Current Medications Acetaminophen (Tylenol 325mg Tab) 650 mg PO Q6 PRN PRN Reason: Pain, moderate (4-7) Last Admin: 12/21/17 22:30 Dose: 650 mg Calcium Acetate (Phoslo) 667 mg PO TIDCC [facility] Last Admin: 12/26/17 17:08 Dose: 667 mg Clonidine HCl (Catapres) 0.2 mg PO BID [facility] Last Admin: 12/26/17 17:08 Dose: 0.2 mg Docusate Sodium (Colace) 100 mg PO TID [facility] Last Admin: 12/26/17 17:08 Dose: 100 mg Vancomycin HCl 1 gm/ Sodium (Chloride) 200 mls @ 133.333 mls/hr IVPB MWF [facility] Last Admin: 12/26/17 14:05 Dose: 133.333 mls/hr Ondansetron HCl (Zofran Inj) 4 mg IVP Q6 PRN PRN Reason: Nausea/Vomiting Last Admin: 12/21/17 20:18 Dose: 4 mg Pantoprazole Sodium (Protonix Ec Tab) 40 mg PO DAILY [facility] Saccharomyces Boulardii (Florastor) 250 mg PO DAILY [facility] Last Admin: 12/26/17 09:06 Dose: 250 mg - Labs Labs: 12/26/17 07:35 12/26/17 07:35 PT 15.2 SECONDS (9.7-12.2) H 12/21/17 07:35 INR 1.3 12/21/17 07:35 APTT 30 SECONDS (21-34) 12/21/17 07:35 Attending/Attestation - Attestation I have personally seen and examined this patient.: Yes I have fully participated in the care of the patient.: Yes I have reviewed all pertinent clinical information, including history, physical exam and plan: Yes Notes (Text): Patient seen, examined and case discussed with day-time resident. Patient seen during hemodialysis this morning. Patient tolerating dialysis at bedside. Patient has peritoneal catheter which is closed; no pus, no discharge noted. patient had vancomycin trough which was collected and within range. Patient order for 1 unit of platelets status post dialysis given platelets are below 10. No bleeding episodes, No rashes noted. Patient did not have peritoneal fluid collected on 12/23/17. Patient has not had peritoneal dialysis since 12/21/17. Nephrology will check with [facility] to confirm HD spot for the patient , will need to follow-up with case management as well. Patient will need to be encourage to use peritoneal dialysis in light of increase bleeding risk associated with hemodialysis. Patient is due for 2 more dose of Vancomycin with dialysis sessions this week. Assessment/Plan (1) Spontaneous bacterial peritonitis Assessment & Plan: * Infectious Disease (Dr. Gilmore) on the case--> help appreciated * Nephrology (Dr. Villasenor) on the case--> help appreciated Peritoneal dialysis-->orders per nephrology Peritoneal Dialysis Catheter to remain in place for future use as per Nephrology Dr. Villasenor. - Images: CT Abd/pelvis (no contrast): No definite acute intraabdominal abnormality. ABs US negative Labs: * Blood culture: Negative (12/17 & 12/23) * Urine Culture : Negative (12/17/17) * Peritoneal fluid (Negative fungus, no anaerobes isolated) * Peritoneal fluid ( Body fluid): Enterococcus Faecalis (12/17/17) * F/u repeat peritoneal fluid (12/23/17): not collected and patient has not had peritoneal dialysis since 12/21/17 Medications: * Ciprofloxacin 400mg daily - discontinued * Vancomycin 1 gram IV MWF (started 12/19/17) for a total of 2 weeks * Tylenol 650mg prn for pain Status: Acute (2) Leukocytosis Assessment & Plan: * Improving * secondary to Peritonitis associated with infected PD catheter * Infectious Disease (Dr. Gilmore) on the case-->help appreciate * Lactic acid: 1.0; Procalcitonin 0.43 * Continue to monitor with am labs Labs: Blood culture: Negative (12/17 & 12/23) * Urine Culture : Negative (12/17/17) * Peritoneal fluid (Negative fungus, no anaerobes isolated)- 12/17/17 * Peritoneal fluid ( Body fluid): Enterococcus Faecalis (2/3/18) * F/u repeat peritoneal fluid culture not collected and patient has not had peritoneal dialysis since 12/21/17 -Medications: Vancomycin 1 gram IV MWF (started 12/19/17) for a total of 2 weeks Ciprofloxacin 400mg daily -- discontinued Status: Acute (3) Thrombocytopenia Assessment & Plan: * Secondary to atypical HUS * Hematology-oncology (Dr. Reid Benites) on the case--> help appreciated: * Per last admission: Renal biopsy: thrombotic microangiopathy, vascular nephrosclerosis, global and segmental glomerulosclerosis, intact linear glomeruar and distal tubular basement * Patient is currently on Soliris (Eculuazmab) with Dr. Benites * On Soliris treatment (last dose 12/08/17) * Transfused 1 unit of platelet (12/26/17) Continue to monitor with labs No bleeding no rashes noted Status: Chronic (4) End stage renal disease Assessment & Plan: * Nephrology consulted: Dr Villasenor --> help appreciated * On Peritoneal dialysis * Vancomycin 1gm daily with dialysis (MWF) for peritonitis - Dr. Quach consulted for new dialysis line placement Permacath placed on Tuesday12/21/17- Currently, in use for HD M,W,F - Patient agrees to leave in peritoneal dialysis catheter in place for eventual use; Dr. Villasenor will assist patient to set this up Medications: * Phoslo 667 mg PO TIDCC Status: Chronic (5) Hypertension Assessment & Plan: Medication: * Clonidine 0.2mg PO BID Status: Acute (6) Constipation Assessment & Plan: Abdominal Obstructive Series Xray (12/19/17): Moderate stool retention. No bowel obstruction Medication: * Colace 100mg PO TID Status: Acute (7) Cyst of neck Assessment & Plan: Right CT Soft Tissue Neck without contrast 12/21/17: There is a 15 x 18 mm well- circumscribed cystic lesion in the subcutaneous space on the right side adjacent to the mandible. This most likely represents a benign cyst such as a sebaceous cyst. Status: Chronic (8) Prophylactic measure Assessment & Plan: GI: Protonix 40mg po daily DVT: SCD, Thrombocytopenic - no chemical anticoagulation needed Florastor 250mg po BID Status: Acute Disposition: Discharge planning for tomorrow. Will need to follow-up with case management and nephrology for HD spot at [facility]. Patient tolerated platelet transfusion today.
[2017-12-27 08:10] LABS: BASO # 0.1 K/uL (0.0-0.2); BASO % 0.6 % (0.0-2.0); EOS # 0.7 K/uL (0.0-0.7); EOS % 5.9 % (0.0-4.0); LYMPH # 4.4 K/uL (1.0-4.3); LYMPH % 36.4 % (20.0-40.0); MEAN CELL VOLUME 89.2 fL (80.0-94.0); MEAN CORPUSCULAR HEMOGLOBIN 30.3 pg (27.0-31.0); MEAN PLATELET VOLUME 8.4 fL (7.2-11.7); MONO # 1.5 K/uL (0.0-0.8); MONO % 12.3 % (0.0-10.0); NEUT # 5.4 K/uL (1.8-7.0); NEUT % 44.8 % (50.0-75.0); NRBC % 0.1 % (0.0-2.0); RBC 3.95 Mil/uL (4.40-5.90); RED CELL DISTRIBUTION WIDTH 14.2 % (11.5-14.5); WHITE BLOOD COUNT 12.1 K/uL (4.8-10.8)
[2017-12-27 08:46] LABS: ALB/GLOB RATIO 1.1 (1.0-2.1); ALBUMIN 3.9 g/dL (3.5-5.0); CALCIUM 9.8 mg/dl (8.6-10.4); MAGNESIUM 2.2 mg/dL (1.6-2.3)
--- NOTE | 2017-12-27 09:53 | CP.PCM.PN ---
Subjective - Date & Time of Evaluation Date of Evaluation: 12/27/17 Time of Evaluation: 09:51 - Subjective Subjective: seen and examined s/p platelet transfusion s/p hd yesterday improved abdominal pain, however doesnt want to go back to pd at this time discussed w/ primary team and call placed to hd center , awaiting reply no f/c/sob/cp/dizziness/headache/n/v/d/rash Objective - Vital Signs/Intake and Output Vital Signs (last 24 hours): Temp Pulse Resp BP Pulse Ox 98.0 F 72 20 118/80 97 12/27/17 07:49 12/27/17 07:49 12/27/17 07:49 12/27/17 07:49 12/27/17 07:49 - Medications Medications: Current Medications Acetaminophen (Tylenol 325mg Tab) 650 mg PO Q6 PRN PRN Reason: Pain, moderate (4-7) Last Admin: 12/21/17 22:30 Dose: 650 mg Calcium Acetate (Phoslo) 667 mg PO TIDCC [facility] Last Admin: 12/27/17 09:08 Dose: 667 mg Clonidine HCl (Catapres) 0.2 mg PO BID [facility] Last Admin: 12/26/17 17:08 Dose: 0.2 mg Docusate Sodium (Colace) 100 mg PO TID [facility] Last Admin: 12/26/17 17:08 Dose: 100 mg Vancomycin HCl 1 gm/ Sodium (Chloride) 200 mls @ 133.333 mls/hr IVPB MWF [facility] Last Admin: 12/26/17 14:05 Dose: 133.333 mls/hr Ondansetron HCl (Zofran Inj) 4 mg IVP Q6 PRN PRN Reason: Nausea/Vomiting Last Admin: 12/21/17 20:18 Dose: 4 mg Pantoprazole Sodium (Protonix Ec Tab) 40 mg PO DAILY [facility] Saccharomyces Boulardii (Florastor) 250 mg PO DAILY [facility] Last Admin: 12/26/17 09:06 Dose: 250 mg - Labs Labs: 12/27/17 07:51 12/27/17 07:51 PT 15.2 SECONDS (9.7-12.2) H 12/21/17 07:35 INR 1.3 12/21/17 07:35 APTT 30 SECONDS (21-34) 12/21/17 07:35 - Constitutional Appears: Non-toxic, No Acute Distress - Head Exam Head Exam: NORMAL INSPECTION - Eye Exam Eye Exam: Normal appearance - ENT Exam ENT Exam: Mucous Membranes Moist, Normal Exam - Neck Exam Neck Exam: Normal Inspection - Respiratory Exam Respiratory Exam: Clear to Ausculation Bilateral, NORMAL BREATHING PATTERN - Cardiovascular Exam Cardiovascular Exam: REGULAR RHYTHM, RRR (rt chest permcath) - GI/Abdominal Exam GI & Abdominal Exam: Distended (pd catheter in place), Soft - Extremities Exam Extremities Exam: Full ROM, Normal Inspection, Pedal Edema - Neurological Exam Neurological Exam: Alert, Awake, Oriented x3 - Psychiatric Exam Psychiatric exam: Normal Affect, Normal Mood - Skin Skin Exam: Intact, Normal Color, Warm Assessment and Plan (1) Thrombocytopenia Status: Acute (2) Spontaneous bacterial peritonitis Status: Acute (3) Anemia Status: Acute (4) Atypical hemolytic uremic syndrome Status: Acute (5) ESRD on hemodialysis Status: Acute - Assessment and Plan (Free Text) Assessment: maintain hd awaiting outpt hd placement platelets improved, hgb stable. bp acceptable
[2017-12-27] MEDS: Saccharomyces Boulardi 250 mg Cap PO SCH (09:54)
[2017-12-27] MEDS ORDERED: Pantoprazole 40 mg EC Tab PO SCH (10:00)
[2017-12-27] MEDS ORDERED: Bisacodyl 5mg EC Tab PO ONE (10:18)
[2017-12-27 12:44] VITALS: O2SAT 100
[2017-12-27 13:37] VITALS: BP 140/108; PULSE 71; RESP 16; TEMP 97.8
--- NOTE | 2017-12-27 15:24 | CP.PCM.DIS ---
<Ronnell Hooker E - Last Filed: 12/27/17 15:31> Provider - Provider Date of Admission: 12/17/17 00:32 Attending physician: Odette Quinones DO Time Spent in preparation of Discharge (in minutes): 40 Diagnosis - Discharge Diagnosis (1) Spontaneous bacterial peritonitis Status: Acute (2) Leukocytosis Status: Acute (3) Thrombocytopenia Status: Acute (4) End stage renal disease Status: Chronic (5) Hypertension Status: Acute (6) Constipation Status: Acute (7) Cyst of neck Status: Chronic (8) Prophylactic measure Status: Acute Hospital Course - Lab Results Lab Results: Micro Results 12/23/17 10:30 Blood-During Dialysis Blood Culture - Preliminary NO GROWTH AFTER 4 DAYS 12/23/17 11:00 Blood-During Dialysis Blood Culture - Preliminary NO GROWTH AFTER 4 DAYS 12/17/17 Unknown Peritoneal Fluid Fungal Culture - Preliminary NO FUNGUS GROWTH IN 1 WEEK. 12/17/17 01:50 Blood Blood Culture - Final NO GROWTH AFTER 5 DAYS 12/17/17 01:50 Blood Gram Stain - Final TEST NOT PERFORMED 12/17/17 01:00 Blood Blood Culture - Final NO GROWTH AFTER 5 DAYS 12/17/17 01:00 Blood Gram Stain - Final TEST NOT PERFORMED 12/17/17 Unknown Peritoneal Fluid Anaerobic Culture - Final NO ANAEROBES ISOLATED. 12/17/17 Unknown Peritoneal Fluid Gram Stain - Final 12/17/17 Unknown Peritoneal Fluid Body Fluid Culture - Final Enterococcus Faecalis 12/17/17 Unknown Urine,Clean Catch Urine Culture - Final No Growth (<1,000 CFU/ML) Most Recent Lab Values WBC 12.1 K/uL (4.8-10.8) H 12/27/17 07:51 RBC 3.95 Mil/uL (4.40-5.90) L 12/27/17 07:51 Hgb 12.0 g/dL (12.0-18.0) 12/27/17 07:51 Hct 35.2 % (35.0-51.0) 12/27/17 07:51 MCV 89.2 fL (80.0-94.0) 12/27/17 07:51 MCH 30.3 pg (27.0-31.0) 12/27/17 07:51 MCHC 34.0 g/dL (33.0-37.0) 12/27/17 07:51 RDW 14.2 % (11.5-14.5) 12/27/17 07:51 Plt Count 38 K/uL (130-400) L D 12/27/17 07:51 MPV 8.4 fL (7.2-11.7) 12/27/17 07:51 Neut % (Auto) 44.8 % (50.0-75.0) L 12/27/17 07:51 Lymph % (Auto) 36.4 % (20.0-40.0) 12/27/17 07:51 Morrow % (Auto) 12.3 % (0.0-10.0) H 12/27/17 07:51 Eos % (Auto) 5.9 % (0.0-4.0) H 12/27/17 07:51 Baso % (Auto) 0.6 % (0.0-2.0) 12/27/17 07:51 Neut # (Auto) 5.4 K/uL (1.8-7.0) 12/27/17 07:51 Lymph # (Auto) 4.4 K/uL (1.0-4.3) H 12/27/17 07:51 Morrow # (Auto) 1.5 K/uL (0.0-0.8) H 12/27/17 07:51 Eos # (Auto) 0.7 K/uL (0.0-0.7) 12/27/17 07:51 Baso # (Auto) 0.1 K/uL (0.0-0.2) 12/27/17 07:51 Differential Comment 12/27/17 07:51 PT 15.2 SECONDS (9.7-12.2) H 12/21/17 07:35 INR 1.3 12/21/17 07:35 APTT 30 SECONDS (21-34) 12/21/17 07:35 Sodium 142 mmol/L (132-148) 12/27/17 07:51 Potassium 4.5 mmol/L (3.6-5.2) 12/27/17 07:51 Chloride 98 mmol/L (98-107) 12/27/17 07:51 Carbon Dioxide 24 mmol/L (22-30) 12/27/17 07:51 Anion Gap 25 (10-20) H 12/27/17 07:51 BUN 37 mg/dL (9-20) H 12/27/17 07:51 Creatinine 5.0 mg/dL (0.8-1.5) H 12/27/17 07:51 Est GFR ( Amer) 16 12/27/17 07:51 Est GFR (Non-Af Amer) 13 12/27/17 07:51 POC Glucose (mg/dL) 89 mg/dL (65-110) 12/27/17 13:47 Random Glucose 104 mg/dL (75-110) 12/27/17 07:51 Lactic Acid 1.0 mmol/L (0.7-2.1) 12/17/17 09:47 Calcium 9.8 mg/dl (8.6-10.4) 12/27/17 07:51 Phosphorus 4.0 mg/dL (2.5-4.5) 12/27/17 07:51 Magnesium 2.2 mg/dL (1.6-2.3) 12/27/17 07:51 Total Bilirubin 0.5 mg/dL (0.2-1.3) 12/27/17 07:51 AST 41 U/L (17-59) 12/27/17 07:51 ALT 56 U/L (21-72) 12/27/17 07:51 Alkaline Phosphatase 152 U/L (38-126) H 12/27/17 07:51 Total Protein 7.5 g/dL (6.3-8.3) 12/27/17 07:51 Albumin 3.9 g/dL (3.5-5.0) 12/27/17 07:51 Globulin 3.6 gm/dL (2.2-3.9) 12/27/17 07:51 Albumin/Globulin Ratio 1.1 (1.0-2.1) 12/27/17 07:51 Procalcitonin 0.43 NG/ML (0.19-0.49) 12/17/17 09:48 Urine Color Straw (YELLOW) 12/19/17 14:28 Urine Clarity Clear (Clear) 12/19/17 14:28 Urine pH 6.0 (5.0-8.0) 12/19/17 14:28 Ur Specific Somers 1.008 (1.003-1.030) 02/05/18 14:28 Urine Protein 2+ mg/dL (NEGATIVE) H 12/19/17 14:28 Urine Glucose (UA) 1+ mg/dL (Normal) H 12/19/17 14:28 Urine Ketones Negative mg/dL (NEGATIVE) 12/19/17 14:28 Urine Blood Negative (NEGATIVE) 12/19/17 14:28 Urine Nitrate Negative (NEGATIVE) 12/19/17 14:28 Urine Bilirubin Negative (NEGATIVE) 12/19/17 14:28 Urine Urobilinogen Normal mg/dL (0.2-1.0) 12/19/17 14:28 Ur Leukocyte Esterase Neg Amy/uL (Negative) 12/19/17 14:28 Urine WBC (Auto) < 1 /hpf (0-5) 12/17/17 09:42 Urine RBC (Auto) < 1 /hpf (0-3) 12/19/17 14:28 Ur Squamous Epith Cells < 1 /hpf (0-5) 12/19/17 14:28 Fluid Source Peritoneal/ascites 12/17/17 00:16 Fluid Appearance Sl cloudy (CLEAR) 12/17/17 00:16 Fluid WBC 112.0 /mm3 (0.0-300.0) 12/17/17 00:16 Fluid RBC 8.0 /mm3 (0.0-0.0) H 12/17/17 00:16 Fluid Tot Cell Count 100 (0-0) H 12/17/17 00:16 Fluid Neutrophils 86.0 % (0-0) H 12/17/17 00:16 Fluid Lymphocytes 9.0 % (0-0) H 12/17/17 00:16 Fld Monocyte/Macrophag 5 % (0-0) H 12/17/17 00:16 Fluid Comment 12/17/17 00:16 Vancomycin Trough 11.8 ug/mL (5.0-10.0) H 12/26/17 10:51 Blood Type O POSITIVE 12/18/17 11:38 Antibody Screen Negative 12/18/17 11:38 - Hospital Course Hospital Course: HPI (As per admission): 31 year old male with past medical history of ESRD on HD, thrombocytopenia, HTN , and left sided hearing loss who presents to the Ed for abdominal pain. He states the pain is located in his right lower quadrant. He states the pain is about a 6/10, constant and does not radiate. He states the pain started today during dialysis which he gets every day at home. He states his last bowel movement was yesterday and it was small. He denies chest pain, palpitations, shortness of breath, nausea, vomiting, diarrhea or constipation. Hospital Course: Patient was admitted with the consideration of spontaneous bacterial peritonitis likely primary to peritoneal dialysis; culture from peritoneal fluid was positive Enterococcus Faecalis. Infectious disease, Dr. Gilmore was consulted, who placed patient on the appropriate antibiotics regimen. Nephrology , Dr. Villasenor/ Dr. Hoffman was consulted as patient is a dialysis patient with end stage renal disease. Hematology and Oncology, Dr. 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 Vascular Surgery , Dr. Quach was consulted in order for patient to obtain a temporary HD access as he is unable to utilize his peritoneal dialysis at this point due to SBP. Patient was medically managed with no acute issues and received HD M,W, F. Patient had no acute issues over hospital course. Patient was deemed medically stable over the course of admission. Patient was discharged with appropriate instruction to continue HD at [facility] and to resume peritoneal dialysis within a month, January 24, 2018. Patient is to continue Vancomyocin on HD at [facility], ending January 28, 2017. Pertinent Imaging: Abdominal US: Kidneys exhibit echogenic parenchyma ; rule out underlying medical renal disease. Small lower pole cyst right kidney. No evidence of hydronephrosis. Multiple metallic densities located in the lower pole left kidney seen on prior CT scan not appreciated on this study. Several small splenic remnants or splenules left upper quadrant of the abdomen poorly seen on this exam. Please refer to CT scan of the abdomen and pelvis. CT Abd/pelvis (no contrast): No definite acute intraabdominal abnormality. Abdominal Obstructive Series Xray (12/19/17): Moderate stool retention. No bowel obstruction CT Soft Tissue Neck without contrast 12/21/17: There is a 15 x 18 mm well- circumscribed cystic lesion in the subcutaneous space on the right side adjacent to the mandible. This most likely represents a benign cyst such as a sebaceous cyst. This is a brief summary of events, for a complete course, please refer to the medical records Discharge Exam - Head Exam Head Exam: NORMAL INSPECTION - Eye Exam Eye Exam: EOMI, Normal appearance - ENT Exam ENT Exam: Mucous Membranes Moist - Respiratory Exam Respiratory Exam: Clear to PA & Lateral, NORMAL BREATHING PATTERN - Cardiovascular Exam Cardiovascular Exam: REGULAR RHYTHM, +S1, +S2 - GI/Abdominal Exam GI & Abdominal Exam: Normal Bowel Sounds, Soft. absent: Distended, Firm, Guarding, Tenderness - Extremities Exam Extremities exam: normal inspection - Neurological Exam Neurological exam: Alert, Oriented x3 - Psychiatric Exam Psychiatric exam: Normal Affect - Skin Skin Exam: Normal Color Discharge Plan - Follow Up Plan Condition: GOOD Disposition: HOME/ ROUTINE Instructions: Constipation (DC), Continuous Ambulatory Peritoneal Dialysis (DC) , Dialysis Diet (DC), Hypertension (DC), Thrombocytopenia (DC), End Stage Kidney Disease (DC) Additional Instructions: Please medically stable for discharge after Hemodialysis session today Patient is to continue hemodialysis at [facility], Tuesday, and Tuesday; starting time 2:30pm Patient to complete last dose of vancomycin on Tuesday, Dec 31, 2017 Patient is to resume peritoneal dialysis a month from today; January 24, 2018. Patient must follow up with [facility], Dr. Sousa or Cathy Lynn prior to initiating peritoneal dialysis Patient to follow up with hematology/Oncology, Dr. Benites, regarding starting soliris Patient is to resume all home medications as prescribed Please return to the hospital if symptoms resume <Odette Quinones V - Last Filed: 12/27/17 16:25> Provider - Provider Date of Admission: 12/17/17 00:32 Attending physician: Odette Quinones, DO Hospital Course - Lab Results Lab Results: Micro Results 12/23/17 10:30 Blood-During Dialysis Blood Culture - Preliminary NO GROWTH AFTER 4 DAYS 12/23/17 11:00 Blood-During Dialysis Blood Culture - Preliminary NO GROWTH AFTER 4 DAYS 12/17/17 Unknown Peritoneal Fluid Fungal Culture - Preliminary NO FUNGUS GROWTH IN 1 WEEK. 12/17/17 01:50 Blood Blood Culture - Final NO GROWTH AFTER 5 DAYS 12/17/17 01:50 Blood Gram Stain - Final TEST NOT PERFORMED 12/17/17 01:00 Blood Blood Culture - Final NO GROWTH AFTER 5 DAYS 12/17/17 01:00 Blood Gram Stain - Final TEST NOT PERFORMED 12/17/17 Unknown Peritoneal Fluid Anaerobic Culture - Final NO ANAEROBES ISOLATED. 12/17/17 Unknown Peritoneal Fluid Gram Stain - Final 12/17/17 Unknown Peritoneal Fluid Body Fluid Culture - Final Enterococcus Faecalis 12/17/17 Unknown Urine,Clean Catch Urine Culture - Final No Growth (<1,000 CFU/ML) Most Recent Lab Values WBC 12.1 K/uL (4.8-10.8) H 12/27/17 07:51 RBC 3.95 Mil/uL (4.40-5.90) L 12/27/17 07:51 Hgb 12.0 g/dL (12.0-18.0) 12/27/17 07:51 Hct 35.2 % (35.0-51.0) 12/27/17 07:51 MCV 89.2 fL (80.0-94.0) 12/27/17 07:51 MCH 30.3 pg (27.0-31.0) 12/27/17 07:51 MCHC 34.0 g/dL (33.0-37.0) 12/27/17 07:51 RDW 14.2 % (11.5-14.5) 12/27/17 07:51 Plt Count 38 K/uL (130-400) L D 12/27/17 07:51 MPV 8.4 fL (7.2-11.7) 12/27/17 07:51 Neut % (Auto) 44.8 % (50.0-75.0) L 12/27/17 07:51 Lymph % (Auto) 36.4 % (20.0-40.0) 12/27/17 07:51 Morrow % (Auto) 12.3 % (0.0-10.0) H 12/27/17 07:51 Eos % (Auto) 5.9 % (0.0-4.0) H 12/27/17 07:51 Baso % (Auto) 0.6 % (0.0-2.0) 12/27/17 07:51 Neut # (Auto) 5.4 K/uL (1.8-7.0) 12/27/17 07:51 Lymph # (Auto) 4.4 K/uL (1.0-4.3) H 12/27/17 07:51 Morrow # (Auto) 1.5 K/uL (0.0-0.8) H 12/27/17 07:51 Eos # (Auto) 0.7 K/uL (0.0-0.7) 12/27/17 07:51 Baso # (Auto) 0.1 K/uL (0.0-0.2) 12/27/17 07:51 Differential Comment 12/27/17 07:51 PT 15.2 SECONDS (9.7-12.2) H 12/21/17 07:35 INR 1.3 12/21/17 07:35 APTT 30 SECONDS (21-34) 12/21/17 07:35 Sodium 142 mmol/L (132-148) 12/27/17 07:51 Potassium 4.5 mmol/L (3.6-5.2) 12/27/17 07:51 Chloride 98 mmol/L (98-107) 12/27/17 07:51 Carbon Dioxide 24 mmol/L (22-30) 12/27/17 07:51 Anion Gap 25 (10-20) H 12/27/17 07:51 BUN 37 mg/dL (9-20) H 12/27/17 07:51 Creatinine 5.0 mg/dL (0.8-1.5) H 12/27/17 07:51 Est GFR ( Amer) 16 12/27/17 07:51 Est GFR (Non-Af Amer) 13 12/27/17 07:51 POC Glucose (mg/dL) 89 mg/dL (65-110) 12/27/17 13:47 Random Glucose 104 mg/dL (75-110) 12/27/17 07:51 Lactic Acid 1.0 mmol/L (0.7-2.1) 12/17/17 09:47 Calcium 9.8 mg/dl (8.6-10.4) 12/27/17 07:51 Phosphorus 4.0 mg/dL (2.5-4.5) 12/27/17 07:51 Magnesium 2.2 mg/dL (1.6-2.3) 12/27/17 07:51 Total Bilirubin 0.5 mg/dL (0.2-1.3) 12/27/17 07:51 AST 41 U/L (17-59) 12/27/17 07:51 ALT 56 U/L (21-72) 12/27/17 07:51 Alkaline Phosphatase 152 U/L (38-126) H 12/27/17 07:51 Total Protein 7.5 g/dL (6.3-8.3) 12/27/17 07:51 Albumin 3.9 g/dL (3.5-5.0) 12/27/17 07:51 Globulin 3.6 gm/dL (2.2-3.9) 12/27/17 07:51 Albumin/Globulin Ratio 1.1 (1.0-2.1) 12/27/17 07:51 Procalcitonin 0.43 NG/ML (0.19-0.49) 12/17/17 09:48 Urine Color Straw (YELLOW) 12/19/17 14:28 Urine Clarity Clear (Clear) 12/19/17 14:28 Urine pH 6.0 (5.0-8.0) 12/19/17 14:28 Ur Specific Somers 1.008 (1.003-1.030) 12/19/17 14:28 Urine Protein 2+ mg/dL (NEGATIVE) H 12/19/17 14:28 Urine Glucose (UA) 1+ mg/dL (Normal) H 12/19/17 14:28 Urine Ketones Negative mg/dL (NEGATIVE) 12/19/17 14:28 Urine Blood Negative (NEGATIVE) 12/19/17 14:28 Urine Nitrate Negative (NEGATIVE) 12/19/17 14:28 Urine Bilirubin Negative (NEGATIVE) 12/19/17 14:28 Urine Urobilinogen Normal mg/dL (0.2-1.0) 12/19/17 14:28 Ur Leukocyte Esterase Neg Amy/uL (Negative) 12/19/17 14:28 Urine WBC (Auto) < 1 /hpf (0-5) 12/17/17 09:42 Urine RBC (Auto) < 1 /hpf (0-3) 12/19/17 14:28 Ur Squamous Epith Cells < 1 /hpf (0-5) 12/19/17 14:28 Fluid Source Peritoneal/ascites 12/17/17 00:16 Fluid Appearance Sl cloudy (CLEAR) 12/17/17 00:16 Fluid WBC 112.0 /mm3 (0.0-300.0) 12/17/17 00:16 Fluid RBC 8.0 /mm3 (0.0-0.0) H 12/17/17 00:16 Fluid Tot Cell Count 100 (0-0) H 12/17/17 00:16 Fluid Neutrophils 86.0 % (0-0) H 12/17/17 00:16 Fluid Lymphocytes 9.0 % (0-0) H 12/17/17 00:16 Fld Monocyte/Macrophag 5 % (0-0) H 12/17/17 00:16 Fluid Comment 12/17/17 00:16 Vancomycin Trough 11.8 ug/mL (5.0-10.0) H 12/26/17 10:51 Blood Type O POSITIVE 12/18/17 11:38 Antibody Screen Negative 12/18/17 11:38 Attending/Attestation - Attestation I have personally seen and examined this patient.: Yes I have fully participated in the care of the patient.: Yes I have reviewed all pertinent clinical information, including history, physical exam and plan: Yes Notes (Text): Patient seen, examined and case discussed with day-time resident. Patient seen during hemodialysis this morning. Patient tolerating dialysis at bedside. Patient has peritoneal catheter which is closed; no pus, no discharge noted. Platelets improved to 32. No bleeding episodes, No rashes noted. Nephrology will check with Counts include [facility] beds at the [facility] to confirm HD spot for the patient ; will start Tuesday//Tuesday to finish last dose of Vancomycin to complete 2 weeks of Vancomycin. I had a long discussion with the patient. He is aware that the HD has increase bleeding risk which why when he has finished IV abx to cover for the prior infection he is recommended to use peritoneal dialysis. Discussed with nephrology, will follow-up with him outpatient. Patient is aware he has a blood condition, not a cancer, which requires special medication, Solaris, and is recommended to see the subspecialist in [place] as recommended by the oncologist from his prior outpatient visits. He verbalized understanding and agrees. Discharge instructions on discharge: Please medically stable for discharge after Hemodialysis session today Patient is to continue hemodialysis at [facility], Tuesday, and Tuesday; starting time 2:30pm Patient to complete last dose of vancomycin on Tuesday, Dec 31, 2017 Patient is to resume peritoneal dialysis and will be followed by Dr. Hoffman or Cathy Lynn prior to initiating peritoneal dialysis. Patient to follow up with hematology/Oncology, Dr. Benites, regarding starting soliris as outpatient. Patient is to resume all home medications as prescribed Please return to the hospital if symptoms resume Discharge Diagnoses: (1) Spontaneous bacterial peritonitis (resolved) Assessment & Plan: * Infectious Disease (Dr. Gilmore) on the case--> help appreciated * Nephrology (Dr. Villasenor) on the case--> help appreciated Peritoneal dialysis-->orders per nephrology Peritoneal Dialysis Catheter to remain in place for future use as per Nephrology Dr. Villasenor. - Images: CT Abd/pelvis (no contrast): No definite acute intraabdominal abnormality. ABs US negative Labs: * Blood culture: Negative (12/17 & 12/23) * Urine Culture : Negative (12/17/17) * Peritoneal fluid (Negative fungus, no anaerobes isolated) * Peritoneal fluid ( Body fluid): Enterococcus Faecalis (12/17/17) * F/u repeat peritoneal fluid (12/23/17): not collected and patient has not had peritoneal dialysis since 12/21/17 Medications: * Ciprofloxacin 400mg daily - discontinued * Vancomycin 1 gram IV MWF (started 12/19/17) for a total of 2 weeks-->to finish last dose this Dec 31 * Tylenol 650mg prn for pain Status: Acute (2) Leukocytosis Assessment & Plan: * Improving * secondary to Peritonitis associated with infected PD catheter * Infectious Disease (Dr. Gilmore) on the case-->help appreciate * Lactic acid: 1.0; Procalcitonin 0.43 Labs: Blood culture: Negative (12/17 & 12/23) * Urine Culture : Negative (12/17/17) * Peritoneal fluid (Negative fungus, no anaerobes isolated)- 12/17/17 * Peritoneal fluid ( Body fluid): Enterococcus Faecalis (12/17/17) * F/u repeat peritoneal fluid culture not collected and patient has not had peritoneal dialysis since 12/21/17 -Medications: Vancomycin 1 gram IV MWF (started 12/19/17) for a total of 2 weeks-->to finish last dose this Dec 31 Ciprofloxacin 400mg daily -- discontinued Status: Acute (3) Thrombocytopenia (Chronic) Atypical TTP-HUS (Chronic) Assessment & Plan: * Secondary to atypical HUS * Hematology-oncology (Dr. Reid Benites) on the case--> help appreciated: * Per last admission: Renal biopsy: thrombotic microangiopathy, vascular nephrosclerosis, global and segmental glomerulosclerosis, intact linear glomeruar and distal tubular basement * Patient is currently on Soliris (Eculuazmab) with Dr. Benites * On Soliris treatment (last dose 12/08/17) * Transfused 1 unit of platelet (12/26/17)--> platelets improved * Upon discharge, recommended to follow-up with oncologist and to establish care with the subspecialist he was recommended to in [place]; he will resume Solaris as outpatient. * No bleeding no rashes noted. Platelets improved Status: Chronic (4) End stage renal disease (Chronic) Nephrotic syndrome (Chronic) Assessment & Plan: * Nephrology consulted: Dr Villasenor --> help appreciated * Dr. Quach consulted for new dialysis line placement-->Permacath placed on Tuesday12/21/17- Currently, in use for HD M,W,F in patient * Vancomycin 1gm daily with dialysis session; will complete last session on 12/31/17 * Permacath placed on Tuesday12/21/17- Currently, in use for HD M,W,F in patient * I spoke with the patient today, he is aware of the bleeding risk associated with HD in light of his platelet condition; he agrees to transition back for peritoneal dialysis. Will follow-up with nephrology, Dr. Villasenor and Dr. Hoffman. * Phoslo 667 mg PO TIDCC Status: Chronic (5) Hypertension (Chronic) Assessment & Plan: Medication: * Clonidine 0.2mg PO BID Status: Acute (6) Constipation-->resolved Assessment & Plan: Abdominal Obstructive Series Xray (12/19/17): Moderate stool retention. No bowel obstruction Medication: * Colace 100mg PO TID Status: Acute (7) Cyst of neck-->chronic Assessment & Plan: Right CT Soft Tissue Neck without contrast 12/21/17: There is a 15 x 18 mm well- circumscribed cystic lesion in the subcutaneous space on the right side adjacent to the mandible. This most likely represents a benign cyst such as a sebaceous cyst. Status: Chronic (8) Prophylactic measure Assessment & Plan: GI: Protonix 40mg po daily DVT: SCD, Thrombocytopenic - no chemical anticoagulation needed Florastor 250mg po BID Status: Acute
== END 2017-12-27 16:30 | disposition home or self-care (01) | DRG 582 ==
LOC: C.ER 20:59 → C.9E 12-17 00:32 → C.5S 12-17 02:31
PROVIDERS: ADMIT Hospitalist; ATTEND Hospitalist
PROC: B549ZZA Ultrasonography of Inferior Vena Cava, Guidance (ICD-10-PCS; 2017-12-18)
PROC: 6A551Z2 Pheresis of Platelets, Multiple (ICD-10-PCS; 2017-12-18)
PROC: 06H033Z Insertion of Infusion Device into Inferior Vena Cava, Percutaneous Approach (ICD-10-PCS; principal; 2017-12-18 11:45)
PROC: 5A1D70Z Performance of Urinary Filtration, Intermittent, Less than 6 Hours Per Day (ICD-10-PCS; 2017-12-19)
PROC: 5A1D70Z Performance of Urinary Filtration, Intermittent, Less than 6 Hours Per Day (ICD-10-PCS; 2017-12-21)
PROC: 05HM33Z Insertion of Infusion Device into Right Internal Jugular Vein, Percutaneous Approach (ICD-10-PCS; 2017-12-21)
PROC: 5A1D70Z Performance of Urinary Filtration, Intermittent, Less than 6 Hours Per Day (ICD-10-PCS; 2017-12-23)
PROC: 5A1D70Z Performance of Urinary Filtration, Intermittent, Less than 6 Hours Per Day (ICD-10-PCS; 2017-12-26)
DX: T85.71XA Infection and inflammatory reaction due to peritoneal dialysis catheter, initial encounter (principal); K65.2 Spontaneous bacterial peritonitis; M31.1 Thrombotic microangiopathy; A41.9 Sepsis, unspecified organism; D59.3 Hemolytic-uremic syndrome; D69.6 Thrombocytopenia, unspecified; I12.0 Hypertensive chronic kidney disease with stage 5 chronic kidney disease or end stage renal disease; N04.9 Nephrotic syndrome with unspecified morphologic changes; N18.6 End stage renal disease; D63.1 Anemia in chronic kidney disease; H91.92 Unspecified hearing loss, left ear; N50.82 Scrotal pain; K59.00 Constipation, unspecified; L72.0 Epidermal cyst; B95.2 Enterococcus as the cause of diseases classified elsewhere; Z99.2 Dependence on renal dialysis; Z90.81 Acquired absence of spleen

== ENCOUNTER 2018-02-01 08:40 | Emergency (ER) | payer SELFPAY ==
[2018-02-01 08:41] VITALS: BMI 28.0
[2018-02-01 08:54] VITALS: O2SAT 100
[2018-02-01 10:46] VITALS: BP 104/67; PULSE 80; RESP 18; TEMP 98.4
--- NOTE | 2018-02-01 10:48 | C.PDOC ---
History Of Present Illness 32 y/o male dialysis patient, presents for evaluation of peritoneal catheter dysfunction. Patient also has a vascular catheter in place. Last dialyzed yesterday. Dialysis center states the peritoneal catheter is not working, sent patient here to have it removed. Patient denies having any complaints. No fevers , chills, nausea, or vomiting. Time Seen by Provider: 02/01/18 09:19 Chief Complaint (Nursing): Medical Clearance History Per: Patient History/Exam Limitations: no limitations Onset/Duration Of Symptoms: Days Additional History Per: Prior Records (from dialysis center) Past Medical History Reviewed: Historical Data, Nursing Documentation, Vital Signs Vital Signs: Last Vital Signs Temp 98.4 F 02/01/18 10:46 Pulse 80 02/01/18 10:46 Resp 18 02/01/18 10:46 BP 104/67 02/01/18 10:46 Pulse Ox 100 02/01/18 10:48 - Medical History PMH: HTN, End Stage Renal Disease (PERITONEAL DIALYSIS), Chronic Kidney Disease Other Surgeries: peritoneal dialysis catheter 05/2017, right chest wall permacath - [facility] Procedures (12/17/17) EXCISION OF LEFT KIDNEY, PERCUTANEOUS APPROACH, DIAGNOSTIC (09/28/16) EXTRACTION OF ILIAC BONE MARROW, PERC APPROACH, DIAGN (09/28/16) FLUOROSCOPY OF SUPERIOR VENA CAVA, GUIDANCE (03/15/17) INJECT/INFUSE NEC (12/01/14) INSERT INFUSION DEV IN R INT JUGULAR VEIN, PERC (12/17/17) INSERT OF INFUSION DEV INTO PERITON CAV, PERC ENDO APPROACH (05/25/17) INSERTION OF INFUSION DEV INTO INF VENA CAVA, PERC APPROACH (12/17/17) INSERTION OF INFUSION DEV INTO SUP VENA CAVA, PERC APPROACH (03/15/17) IRRIGATION OF PERITON CAV USING DIALYSATE, PERC APPROACH (05/25/17) OCCLUSION OF L RENAL ART WITH INTRALUM DEV, PERC APPROACH (09/28/16) PERFORMANCE OF URINARY FILTRATION, MULTIPLE (03/15/17) PERFORMANCE OF URINARY FILTRATION, SINGLE (05/28/17) PHERESIS OF PLASMA, MULTIPLE (09/28/16) PHERESIS OF PLATELETS, MULTIPLE (12/17/17) TRANSFUSE NONAUT FROZEN PLASMA IN PERIPH VEIN, PERC (09/28/16) TRANSFUSE NONAUT PLATELETS IN PERIPH VEIN, PERC (05/25/17) TRANSFUSE NONAUT RED BLOOD CELLS IN PERIPH VEIN, PERC (09/28/16) ULTRASONOGRAPHY OF INFERIOR VENA CAVA, GUIDANCE (12/17/17) ULTRASONOGRAPHY OF LEFT KIDNEY (09/28/16) Family History: States: Unknown Family Hx - Social History Hx Alcohol Use: No Hx Substance Use: No - Immunization History Hx Tetanus Toxoid Vaccination: No Hx Influenza Vaccination: Yes Hx Pneumococcal Vaccination: No Review Of Systems Except As Marked, All Systems Reviewed And Found Negative. Physical Exam - Physical Exam Appears: Non-toxic, No Acute Distress Skin: Normal Color, Warm, Dry Head: Atraumatic, Normacephalic Eye(s): bilateral: Normal Inspection, PERRL, EOMI Oral Mucosa: Moist Neck: Normal ROM, Supple Chest: Symmetrical, Other (Vascular catheter at right anterior chest. Appears clean, dry, and intact) Cardiovascular: Rhythm Regular, No Murmur Respiratory: Normal Breath Sounds, No Accessory Muscle Use Gastrointestinal/Abdominal: Soft, No Tenderness, No Distention, Other ( Peritoneal catheter in place. Appears clean, dry, and intact) Extremity: Bilateral: Atraumatic, Normal ROM Neurological/Psych: Oriented x3, Normal Speech ED Course And Treatment O2 Sat by Pulse Oximetry: 100 (RA) Pulse Ox Interpretation: Normal Medical Decision Making Medical Decision Makin:45 Dr. Quach paged for surgical consult 10:45 residential coordinator evaluated pt and recommends catheter can be removed in the OR tomorrow. Pt given the option to stay overnight or return to the OR tomorrow morning. Pt elects to return tomorrow morning for dialysis catheter removal. Disposition Counseled Patient/Family Regarding: Diagnosis, Need For Followup - Disposition Referrals: Abdelrahman Quach Jr., MD [Staff Provider] - Disposition: HOME/ ROUTINE Disposition Time: 10:46 Condition: STABLE Additional Instructions: return to ER tomorrow for peritoneal catheter evaluation and possible removal continue your home medications return to ER sooner if symptoms develops Instructions: Peritoneal Dialysis Forms: Gen Discharge Inst [place], [facility] ([place]) Print Language: FAROESE - POA Present On Arrival: None - Clinical Impression Clinical Impression: ESRD (end stage renal disease) on dialysis, Dialysis catheter clot or failure - Scribe Statement The provider has reviewed the documentation as recorded by the Scribe (Gill Hernandez) Provider Attestation: All medical record entries made by the Scribe were at my direction and personally dictated by me. I have reviewed the chart and agree that the record accurately reflects my personal performance of the history, physical exam, medical decision making, and the department course for this patient. I have also personally directed, reviewed, and agree with the discharge instructions and disposition.
--- NOTE | 2018-02-01 12:08 | CP.PCM.CON ---
History of Present Illness - History of Present Illness History of Present Illness: Surgery Consult note. Dr. Quach 32yoM with PMHx of ESRD, Thrombocytopenia, Atypical Hemolytic Uremia, HTN, Left hearing loss here for evaluation of non-functioning peritoneal dialysis catheter. Patient states that he was at his dialysis center yesterday and was told to come to the ER as his PD cath is not working. He received dialysis via Right IJ permacath without any problems. He states that he would like to have the PD cath removed to decrease risk of infection. 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) Social History: denies smoking, denies alcohol use, denies illicit drug use Family History: denies Allergies: Aspirin - rash/nausea Review of Systems - Review of Systems All systems: reviewed and no additional remarkable complaints except - Constitutional Constitutional: absent: Chills, Fever - Cardiovascular Cardiovascular: absent: Chest Pain, Diaphoresis, Dyspnea - Respiratory Respiratory: absent: Cough, Dyspnea - Gastrointestinal Gastrointestinal: absent: Abdominal Pain, Diarrhea, Hematemesis, Hematochezia, Nausea, Vomiting - Neurological Neurological: absent: Dizziness, Headaches - Psychiatric Psychiatric: absent: Anxiety Past Patient History - Infectious Disease Hx of Infectious Diseases: None - Past Medical History & Family History Past Medical History?: Yes - Past Social History Smoking Status: Never Smoked - CARDIAC Hx Hypertension: Yes - PULMONARY Hx Respiratory Disorders: No - NEUROLOGICAL Hx Neurological Disorder: No - HEENT Hx HEENT Problems: Yes Other/Comment: HEARING IMPAIRED - RENAL Hx Chronic Kidney Disease: Yes - ENDOCRINE/METABOLIC Hx Endocrine Disorders: No - HEMATOLOGICAL/ONCOLOGICAL Hx Blood Disorders: Yes Other/Comment: Thrombocytopenia - INTEGUMENTARY Hx Dermatological Problems: No - MUSCULOSKELETAL/RHEUMATOLOGICAL Hx Musculoskeletal Disorders: No - GASTROINTESTINAL Hx Gastrointestinal Disorders: No - GENITOURINARY/GYNECOLOGICAL Hx Genitourinary Disorders: No - PSYCHIATRIC Hx Substance Use: No - SURGICAL HISTORY Hx Surgeries: Yes Other/Comment: peritoneal dialysis catheter 05/2017. right chest wall permacath - ANESTHESIA Hx Anesthesia: Yes Hx Anesthesia Reactions: No Hx Malignant Hyperthermia: No Meds Allergies/Adverse Reactions: Allergies Allergy/AdvReac Type Severity Reaction Status Date / Time aspirin AdvReac ANAPHYLAXIS Verified 12/16/17 21:27 Physical Exam - Constitutional Appears: Well, Non-toxic, No Acute Distress - Head Exam Head Exam: ATRAUMATIC, NORMAL INSPECTION, NORMOCEPHALIC - Eye Exam Eye Exam: EOMI, Normal appearance - ENT Exam ENT Exam: Mucous Membranes Moist - Respiratory Exam Respiratory Exam: NORMAL BREATHING PATTERN. absent: Accessory Muscle Use, Respiratory Distress - Cardiovascular Exam Cardiovascular Exam: RRR. absent: JVD Additional comments: Right IJ Permacath in place - GI/Abdominal Exam GI & Abdominal Exam: Soft. absent: Distended, Firm, Guarding, Rebound, Rigid, Tenderness Additional comments: PD cath in place, no erythema, no induration, no drainage. - Extremities Exam Extremities exam: Positive for: normal inspection. Negative for: calf tenderness - Neurological Exam Neurological exam: Alert, Oriented x3 - Psychiatric Exam Psychiatric exam: Normal Affect, Normal Mood - Skin Skin Exam: Dry, Intact, Normal Color, Warm Results - Vital Signs Recent Vital Signs: Last Vital Signs Temp 98.4 F 02/01/18 10:46 Pulse 80 02/01/18 10:46 Resp 18 02/01/18 10:46 BP 104/67 02/01/18 10:46 Pulse Ox 100 02/01/18 11:06 Assessment & Plan - Assessment and Plan (Free Text) Assessment: 32yo M with non-functioning PD catheter Plan: - Discussed case with Dr. Quinn, Nephrology covering Dr. Villasenor. Patient may have removal of PD as he does not like to use it as well - Elective PD cath removal. Patient may return via ER for PD removal tomorrow, . - Patient offered admission today for procedure tomorrow, however, patient elected to return tomorrow. Further recs as per Dr. Philomena Devine PGY1 surgery pager: [phone]
== END 2018-02-01 10:56 | disposition home or self-care (01) ==
LOC: C.ER 08:40
DX: T85.611A Breakdown (mechanical) of intraperitoneal dialysis catheter, initial encounter (principal); Y84.1 Kidney dialysis as the cause of abnormal reaction of the patient, or of later complication, without mention of misadventure at the time of the procedure

== ENCOUNTER 2018-02-02 09:22 | Emergency (ER) | payer SELFPAY ==
[2018-02-02 09:22] VITALS: BMI 28.0
[2018-02-02 09:29] VITALS: O2SAT 99
[2018-02-02 11:01] LABS: BASO # 0.1 K/uL (0.0-0.2); EOS % 12.1 % (0.0-4.0); NRBC % 0.1 % (0.0-2.0); RBC 4.02 Mil/uL (4.40-5.90); RED CELL DISTRIBUTION WIDTH 15.4 % (11.5-14.5)
[2018-02-02 11:13] LABS: INR 1.2; PROTHROMBIN TIME 13.2 SECONDS (9.7-12.2)
[2018-02-02 11:22] LABS: ALB/GLOB RATIO 1.4 (1.0-2.1); ALBUMIN 4.4 g/dL (3.5-5.0); CALCIUM 9.5 mg/dl (8.6-10.4)
[2018-02-02 11:29] LABS: BASO % 1.3 % (0.0-2.0); EOS # 1.3 K/uL (0.0-0.7); LYMPH # 3.7 K/uL (1.0-4.3); LYMPH % 34.8 % (20.0-40.0); MEAN CORPUSCULAR HEMOGLOBIN 29.8 pg (27.0-31.0); MEAN CORPUSCULAR HGB CONC 32.7 g/dL (33.0-37.0); MEAN PLATELET VOLUME 10.2 fL (7.2-11.7); MONO # 1.2 K/uL (0.0-0.8); MONO % 11.2 % (0.0-10.0); NEUT # 4.3 K/uL (1.8-7.0); NEUT % 40.6 % (50.0-75.0); WHITE BLOOD COUNT 10.6 K/uL (4.8-10.8)
--- NOTE | 2018-02-02 12:04 | C.PDOC ---
History Of Present Illness 32 y/o male presents to the ER after he was seen yesterday in [facility] ER, to have his peritoneal catheter removed and he was seen by surgical services manager. Patient was told to return today to have peritoneal catheter removed. Patient denies having other complaints. Time Seen by Provider: 02/02/18 09:34 Chief Complaint (Nursing): Medical Clearance History Per: Patient History/Exam Limitations: no limitations Past Medical History Reviewed: Historical Data, Nursing Documentation, Vital Signs Vital Signs: Last Vital Signs Temp 98 F 02/02/18 13:00 Pulse 60 02/02/18 13:00 Resp 20 02/02/18 13:00 BP 118/84 02/02/18 13:00 Pulse Ox 99 02/02/18 18:32 - Medical History PMH: HTN, End Stage Renal Disease (PERITONEAL DIALYSIS), Chronic Kidney Disease Other Surgeries: Hx of surgeries - [facility] Procedures (12/17/17) EXCISION OF LEFT KIDNEY, PERCUTANEOUS APPROACH, DIAGNOSTIC (09/28/16) EXTRACTION OF ILIAC BONE MARROW, PERC APPROACH, DIAGN (09/28/16) FLUOROSCOPY OF SUPERIOR VENA CAVA, GUIDANCE (03/15/17) INJECT/INFUSE NEC (12/01/14) INSERT INFUSION DEV IN R INT JUGULAR VEIN, PERC (12/17/17) INSERT OF INFUSION DEV INTO PERITON CAV, PERC ENDO APPROACH (05/25/17) INSERTION OF INFUSION DEV INTO INF VENA CAVA, PERC APPROACH (12/17/17) INSERTION OF INFUSION DEV INTO SUP VENA CAVA, PERC APPROACH (03/15/17) IRRIGATION OF PERITON CAV USING DIALYSATE, PERC APPROACH (05/25/17) OCCLUSION OF L RENAL ART WITH INTRALUM DEV, PERC APPROACH (09/28/16) PERFORMANCE OF URINARY FILTRATION, MULTIPLE (03/15/17) PERFORMANCE OF URINARY FILTRATION, SINGLE (05/28/17) PHERESIS OF PLASMA, MULTIPLE (09/28/16) PHERESIS OF PLATELETS, MULTIPLE (12/17/17) TRANSFUSE NONAUT FROZEN PLASMA IN PERIPH VEIN, PERC (09/28/16) TRANSFUSE NONAUT PLATELETS IN PERIPH VEIN, PERC (05/25/17) TRANSFUSE NONAUT RED BLOOD CELLS IN PERIPH VEIN, PERC (09/28/16) ULTRASONOGRAPHY OF INFERIOR VENA CAVA, GUIDANCE (12/17/17) ULTRASONOGRAPHY OF LEFT KIDNEY (09/28/16) Family History: States: No Known Family Hx - Social History Hx Alcohol Use: No Hx Substance Use: No - Immunization History Hx Tetanus Toxoid Vaccination: No Hx Influenza Vaccination: No Hx Pneumococcal Vaccination: No Review Of Systems Except As Marked, All Systems Reviewed And Found Negative. Constitutional: Negative for: Fever, Chills Physical Exam - Physical Exam Appears: Non-toxic, No Acute Distress Skin: Normal Color, Warm, Dry Head: Atraumatic, Normacephalic Eye(s): bilateral: Normal Inspection Nose: Normal Oral Mucosa: Moist Neck: Supple Chest: Symmetrical, Other ((+) vascular catheter in chest wall, sight is clean, dry and intact ) Cardiovascular: Rhythm Regular Respiratory: Normal Breath Sounds, No Rales, No Rhonchi, No Wheezing Gastrointestinal/Abdominal: Normal Exam, Bowel Sounds, Soft, Other ((+) peritoneal dialysis catheter in abdomen, sight in clean dry and intact. ) Neurological/Psych: Oriented x3, Normal Speech, Normal Motor, Normal Sensation ED Course And Treatment - Laboratory Results Result Diagrams: 02/02/18 10:56 02/02/18 10:56 O2 Sat by Pulse Oximetry: 99 (RA) Pulse Ox Interpretation: Normal Medical Decision Making Medical Decision Making: Plan: --Labs Updates: Bloodwork shows a Plt count of 7. Case was d/c with who would like to admit patient. However, patient refuses to be admitted in the hospital. has been informed and he has given approval for discharging the patient home. Case was also discussed with Dr. Siddiqui,surgeon, who states that he would like the patient to return to the ER on 02/07/18 for admission and removal of peritoneal catheter.Patient has understood the plan and will follow up accordingly. Patient has been discharged and will undergo dialysis today. Disposition Counseled Patient/Family Regarding: Studies Performed, Diagnosis, Need For Followup - Disposition Disposition: HOME/ ROUTINE Disposition Time: 11:20 Condition: STABLE Forms: [facility] (Vietnamese) - Clinical Impression Clinical Impression: Thrombocytopenia, Dialysis catheter clot or failure - Scribe Statement The provider has reviewed the documentation as recorded by the Shanika Casillas Provider Attestation: All medical record entries made by the Scribe were at my direction and personally dictated by me. I have reviewed the chart and agree that the record accurately reflects my personal performance of the history, physical exam, medical decision making, and the department course for this patient. I have also personally directed, reviewed, and agree with the discharge instructions and disposition.
[2018-02-02 13:13] VITALS: BP 118/84; PULSE 60; RESP 20; TEMP 98
== END 2018-02-02 13:00 | disposition home or self-care (01) ==
LOC: C.ER 09:22 → C.9E 12:02 → UNDOADMOB 12:02 → C.3T 12:28 → C.9E 12:28 → C.ER 13:00
DX: T85.611A Breakdown (mechanical) of intraperitoneal dialysis catheter, initial encounter (principal); Y84.1 Kidney dialysis as the cause of abnormal reaction of the patient, or of later complication, without mention of misadventure at the time of the procedure; D69.6 Thrombocytopenia, unspecified

== ENCOUNTER 2018-02-07 09:52 | Inpatient (IN) | payer MEDICAID, SELFPAY ==
[2018-02-07 09:52] VITALS: BMI 28.0
[2018-02-07 11:00] LABS: BASO # 0.1 K/uL (0.0-0.2); BASO % 1.1 % (0.0-2.0); EOS # 1.2 K/uL (0.0-0.7); EOS % 10.5 % (0.0-4.0); HEMOGLOBIN 10.8 g/dL (12.0-18.0); LYMPH # 3.9 K/uL (1.0-4.3); LYMPH % 33.7 % (20.0-40.0); MEAN CELL VOLUME 90.3 fL (80.0-94.0); MEAN CORPUSCULAR HEMOGLOBIN 30.3 pg (27.0-31.0); MEAN CORPUSCULAR HGB CONC 33.5 g/dL (33.0-37.0); MEAN PLATELET VOLUME 12.2 fL (7.2-11.7); MONO # 1.5 K/uL (0.0-0.8); MONO % 12.8 % (0.0-10.0); NEUT # 4.8 K/uL (1.8-7.0); NEUT % 41.9 % (50.0-75.0); RBC 3.56 Mil/uL (4.40-5.90); RED CELL DISTRIBUTION WIDTH 15.5 % (11.5-14.5); WHITE BLOOD COUNT 11.5 K/uL (4.8-10.8)
--- NOTE | 2018-02-07 11:04 | RAD ---
PROCEDURE: CHEST RADIOGRAPH, 1 VIEW HISTORY: PREOP COMPARISON: 07/15/2017. FINDINGS: The right-sided central venous catheter terminates at the cavoatrial junction. LUNGS: The lungs are well inflated. There is mild pulmonary venous congestion. No focal consolidation. PLEURA: No pneumothorax or pleural fluid seen. CARDIOVASCULAR: Normal. OSSEOUS STRUCTURES: No significant abnormalities. VISUALIZED UPPER ABDOMEN: Normal. OTHER FINDINGS: None. IMPRESSION: No active pulmonary disease.
[2018-02-07 11:22] LABS: INR 1.2; PROTHROMBIN TIME 13.2 SECONDS (9.7-12.2)
[2018-02-07 11:30] LABS: ALB/GLOB RATIO 1.4 (1.0-2.1); ALBUMIN 4.1 g/dL (3.5-5.0); CALCIUM 8.9 mg/dl (8.6-10.4)
--- NOTE | 2018-02-07 12:05 | C.PDOC ---
History Of Present Illness 32-year-old male with PMHx that includes Hypertension and ESRD (on HD T, , ) , presents to the emergency department for removal of LLQ (peritoneal) dialysis catheter. Patient also has h/o thrombocytopenia and was told he needs a platelet transfusion. He denies chest pain, shortness of breath, cough, fever , abdominal pain, bleeding. Time Seen by Provider: 02/07/18 10:02 Chief Complaint (Nursing): Medical Clearance History Per: Patient History/Exam Limitations: no limitations Past Medical History Reviewed: Historical Data, Nursing Documentation, Vital Signs Vital Signs: Last Vital Signs Temp 97.6 F 02/08/18 10:40 Pulse 55 L 02/08/18 10:40 Resp 18 02/08/18 10:40 BP 115/74 02/08/18 10:40 Pulse Ox 98 02/08/18 10:40 - Medical History PMH: HTN, End Stage Renal Disease (PERITONEAL DIALYSIS), Chronic Kidney Disease - [facility] Procedures (12/17/17) EXCISION OF LEFT KIDNEY, PERCUTANEOUS APPROACH, DIAGNOSTIC (09/28/16) EXTRACTION OF ILIAC BONE MARROW, PERC APPROACH, DIAGN (09/28/16) FLUOROSCOPY OF SUPERIOR VENA CAVA, GUIDANCE (03/15/17) INJECT/INFUSE NEC (12/01/14) INSERT INFUSION DEV IN R INT JUGULAR VEIN, PERC (12/17/17) INSERT OF INFUSION DEV INTO PERITON CAV, PERC ENDO APPROACH (05/25/17) INSERTION OF INFUSION DEV INTO INF VENA CAVA, PERC APPROACH (12/17/17) INSERTION OF INFUSION DEV INTO SUP VENA CAVA, PERC APPROACH (03/15/17) IRRIGATION OF PERITON CAV USING DIALYSATE, PERC APPROACH (05/25/17) OCCLUSION OF L RENAL ART WITH INTRALUM DEV, PERC APPROACH (09/28/16) PERFORMANCE OF URINARY FILTRATION, MULTIPLE (03/15/17) PERFORMANCE OF URINARY FILTRATION, SINGLE (05/28/17) PHERESIS OF PLASMA, MULTIPLE (09/28/16) PHERESIS OF PLATELETS, MULTIPLE (12/17/17) TRANSFUSE NONAUT FROZEN PLASMA IN PERIPH VEIN, PERC (09/28/16) TRANSFUSE NONAUT PLATELETS IN PERIPH VEIN, PERC (05/25/17) TRANSFUSE NONAUT RED BLOOD CELLS IN PERIPH VEIN, PERC (09/28/16) ULTRASONOGRAPHY OF INFERIOR VENA CAVA, GUIDANCE (12/17/17) ULTRASONOGRAPHY OF LEFT KIDNEY (09/28/16) Family History: States: No Known Family Hx - Social History Hx Alcohol Use: No Hx Substance Use: No - Immunization History Hx Tetanus Toxoid Vaccination: No Hx Influenza Vaccination: No Hx Pneumococcal Vaccination: No Review Of Systems Except As Marked, All Systems Reviewed And Found Negative. Constitutional: Negative for: Fever, Chills Cardiovascular: Negative for: Chest Pain Respiratory: Negative for: Cough, Shortness of Breath Gastrointestinal: Negative for: Vomiting, Abdominal Pain Skin: Negative for: Rash Neurological: Negative for: Weakness, Numbness, Headache, Dizziness Physical Exam - Physical Exam Appears: Well, Non-toxic, No Acute Distress Skin: Warm, Dry, No Rash Ear(s): Left: Other (cochlear implant) Nose: Normal Oral Mucosa: Moist Chest: Other (dialysis catheter right upper chest ) Cardiovascular: Rhythm Regular Respiratory: Normal Breath Sounds, No Rales, No Rhonchi, No Wheezing Gastrointestinal/Abdominal: Normal Exam, Bowel Sounds, Soft, No Tenderness, Other (LLQ peritoneal dialysis catheter) Neurological/Psych: Oriented x3 ED Course And Treatment - Laboratory Results Result Diagrams: 02/08/18 07:50 02/08/18 07:50 ECG: Interpreted By Me, Viewed By Me (sinus bradycardia 59 bpm with first degree AV block, normal axis, no acute ST/T wave changes ) O2 Sat by Pulse Oximetry: 98 (RA) Pulse Ox Interpretation: Normal - Radiology CXR: Interpreted by Me, Viewed By Me CXR Interpretation: Yes: No Acute Disease, Other (right upper chest dialysis catheter ). No: Infiltrates Progress Note: Bloodwork, EKG, Chest XRay ordered and reviewed. Platelets approx 5K, platelet transfusion ordered. - Physician Consult Information Physician Contacted: Odette Quinones Outcome Of Conversation: Discussed patient with hospitalist, has h/o atypical HUS. She accepts patient to her service. Disposition - Disposition Disposition: HOSPITALIZED Disposition Time: 12:32 Condition: STABLE - Clinical Impression Clinical Impression: Severe thrombocytopenia, Peritoneal dialysis catheter dysfunction - Scribe Statement The provider has reviewed the documentation as recorded by the Scribe (Shashank Pollard) All medical record entries made by the Scribe were at my direction and personally dictated by me. I have reviewed the chart and agree that the record accurately reflects my personal performance of the history, physical exam, medical decision making, and the department course for this patient. I have also personally directed, reviewed, and agree with the discharge instructions and disposition. Decision To Admit - Pt Status Changed To: Hospital Disposition Of: Inpatient - Admit Certification Admit to Inpatient:: After my assessment, the patient will require hospitalization for at least two midnights. This is because of the severity of symptoms shown, intensity of services needed, and/or the medical risk in this patient being treated as an outpatient. - InPatient: Physician Admission Certification: I certify that this patient requires 2 or more midnights of care for the following reason:: see notes - . Bed Request Type: Regular Admitting Physician: Odette Quinones Patient Diagnosis: Severe thrombocytopenia, Peritoneal dialysis catheter dysfunction
--- NOTE | 2018-02-07 13:49 | CP.PCM.CON ---
History of Present Illness - History of Present Illness History of Present Illness: General surgery consult for Dr. Quach Mr Mae is a 32 year old male with a PMHx of HTN, ESRD, and thrombocytopenia who presented to the ED for nonfunctioning peritoneal dialysis catheter. He has no complaints at this time. Denies fever/chills, chest pain, SOB, abd pain, nausea/vomiting/diarrhea/constipation, excessive bleeding/ bruising. PMHx: HTN, ESRD, thrombocytopenia PSHx: peritoneal dialysis catheter (05/2017), permacath (03/2017) Allergies: aspirin Review of Systems - Review of Systems All systems: reviewed and no additional remarkable complaints except (as per HPI ) Past Patient History - Infectious Disease Hx of Infectious Diseases: None - Past Medical History & Family History Past Medical History?: Yes - Past Social History Smoking Status: Never Smoked - CARDIAC Hx Hypertension: Yes - PULMONARY Hx Respiratory Disorders: No - NEUROLOGICAL Hx Neurological Disorder: No - HEENT Hx HEENT Problems: Yes Other/Comment: HEARING IMPAIRED - RENAL Hx Chronic Kidney Disease: Yes - ENDOCRINE/METABOLIC Hx Endocrine Disorders: No - HEMATOLOGICAL/ONCOLOGICAL Hx Blood Disorders: Yes Other/Comment: Thrombocytopenia - INTEGUMENTARY Hx Dermatological Problems: No - MUSCULOSKELETAL/RHEUMATOLOGICAL Hx Musculoskeletal Disorders: No - GASTROINTESTINAL Hx Gastrointestinal Disorders: No - GENITOURINARY/GYNECOLOGICAL Hx Genitourinary Disorders: No - PSYCHIATRIC Hx Substance Use: No - SURGICAL HISTORY Hx Surgeries: Yes Other/Comment: peritoneal dialysis catheter 05/2017. right chest wall permacath - ANESTHESIA Hx Anesthesia: Yes Hx Anesthesia Reactions: No Hx Malignant Hyperthermia: No Meds Allergies/Adverse Reactions: Allergies Allergy/AdvReac Type Severity Reaction Status Date / Time aspirin AdvReac ANAPHYLAXIS Verified 02/07/18 09:57 Physical Exam - Constitutional Appears: Well, Non-toxic, No Acute Distress - Respiratory Exam Respiratory Exam: Clear to Auscultation Bilateral, NORMAL BREATHING PATTERN. absent: Rales, Rhonchi, Wheezes, Respiratory Distress - Cardiovascular Exam Cardiovascular Exam: REGULAR RHYTHM, RRR, +S1, +S2. absent: Diastolic murmur, Systolic Murmur - GI/Abdominal Exam GI & Abdominal Exam: Normal Bowel Sounds, Soft. absent: Distended, Guarding, Tenderness Additional comments: dry intact dressing on left abdomen over peritoneal dialysis catheter port - Extremities Exam Extremities exam: Positive for: normal inspection. Negative for: pedal edema - Psychiatric Exam Psychiatric exam: Normal Affect, Normal Mood - Skin Skin Exam: Normal Color Additional comments: no discoloration or bruising Results - Vital Signs Recent Vital Signs: Last Vital Signs Temp 98 F 02/07/18 09:57 Pulse 72 02/07/18 09:57 Resp 20 02/07/18 09:57 BP 131/80 02/07/18 09:57 Pulse Ox 98 02/07/18 12:22 - Labs Result Diagrams: 02/07/18 10:50 02/07/18 10:50 Labs: Laboratory Results - last 24 hr 02/07/18 02/07/18 02/07/18 10:50 10:50 10:50 WBC 11.5 H RBC 3.56 L Hgb 10.8 L Hct 32.2 L MCV 90.3 MCH 30.3 MCHC 33.5 RDW 15.5 H Plt Count 5 L* MPV 12.2 H Neut % (Auto) 41.9 L Lymph % (Auto) 33.7 [place] % (Auto) 12.8 H Eos % (Auto) 10.5 H Baso % (Auto) 1.1 Neut # (Auto) 4.8 Lymph # (Auto) 3.9 [place] # (Auto) 1.5 H Eos # (Auto) 1.2 H Baso # (Auto) 0.1 Differential Comment PT 13.2 H INR 1.2 APTT 32 Sodium 142 Potassium 4.1 Chloride 104 Carbon Dioxide 21 L Anion Gap 22 H BUN 40 H Creatinine 6.4 H Est GFR ( Amer) 12 Est GFR (Non-Af Amer) 10 Random Glucose 137 H Calcium 8.9 Total Bilirubin 0.7 AST 36 ALT 48 Alkaline Phosphatase 111 Total Protein 7.0 Albumin 4.1 Globulin 2.9 Albumin/Globulin Ratio 1.4 Blood Type Antibody Screen 02/07/18 10:53 WBC RBC Hgb Hct MCV MCH MCHC RDW Plt Count MPV Neut % (Auto) Lymph % (Auto) [place] % (Auto) Eos % (Auto) Baso % (Auto) Neut # (Auto) Lymph # (Auto) [place] # (Auto) Eos # (Auto) Baso # (Auto) Differential Comment PT INR APTT Sodium Potassium Chloride Carbon Dioxide Anion Gap BUN Creatinine Est GFR ( Amer) Est GFR (Non-Af Amer) Random Glucose Calcium Total Bilirubin AST ALT Alkaline Phosphatase Total Protein Albumin Globulin Albumin/Globulin Ratio Blood Type O POSITIVE Antibody Screen Negative Assessment & Plan - Assessment and Plan (Free Text) Assessment: 32 year old male with poor functioning peritoneal dialysis catheter Plan: OR tomorrow to remove peritoneal dialysis catheter Medically optimize patient, especially platelets d/w Dr Philomena Patino, PGY3
--- NOTE | 2018-02-07 15:00 | CP.PCM.HP ---
<Belinda Segovia - Last Filed: 02/07/18 16:50> History of Present Illness - History of Present Illness History of Present Illness: CC: left femoral dialysis removal. 32M with a PMH of HTN, CKD, ESRD (HD , , Tue), known atypical HUS and thrombocytopenia who presented to the ED for removal of his left groin PD cath and for platelet transfusion. He states that he had been using his groin cath for PD until this past November when it became infected; since then he has been using a right chest perma cath for HD. His surgeon told him that he must have his platelets transfused before he is able to have the groin cath removed. He currently feels well and denies fevers/chills, CP, SOB, N/V/C/D, abdominal pain , weakness, numbness and tingling. PMH: HTN, CKD, ESRD, known typical HUS, thrombocytopenia Surg Hx: PD cath placed 05/2017, renal biopsy 03/2017, right chest permacath placed 03/2017, splenectomy at 4 y/o FMH: Denies Meds: Clonidine 0.2mg PMD: [facility] Allergies: Aspirin - Rash, nausea Nephrology: Dr. Villasenor Vascular: Dr. Quach Heme-Onc: Dr. Benites Present on Admission - Present on Admission Any Indicators Present on Admission: No History of DVT/PE: No History of Uncontrolled Diabetes: No Urinary Catheter: No Decubitus Ulcer Present: No Past Patient History - Infectious Disease Hx of Infectious Diseases: None - Past Medical History & Family History Past Medical History?: Yes - Past Social History Smoking Status: Never Smoked - CARDIAC Hx Hypertension: Yes - PULMONARY Hx Respiratory Disorders: No - NEUROLOGICAL Hx Neurological Disorder: No - HEENT Hx HEENT Problems: Yes Other/Comment: HEARING IMPAIRED - RENAL Hx Chronic Kidney Disease: Yes - ENDOCRINE/METABOLIC Hx Endocrine Disorders: No - HEMATOLOGICAL/ONCOLOGICAL Hx Blood Disorders: Yes Other/Comment: Thrombocytopenia - INTEGUMENTARY Hx Dermatological Problems: No - MUSCULOSKELETAL/RHEUMATOLOGICAL Hx Musculoskeletal Disorders: No - GASTROINTESTINAL Hx Gastrointestinal Disorders: No - GENITOURINARY/GYNECOLOGICAL Hx Genitourinary Disorders: No - PSYCHIATRIC Hx Substance Use: No - SURGICAL HISTORY Hx Surgeries: Yes Other/Comment: peritoneal dialysis catheter 05/2017. right chest wall permacath - ANESTHESIA Hx Anesthesia: Yes Hx Anesthesia Reactions: No Hx Malignant Hyperthermia: No Meds Allergies/Adverse Reactions: Allergies Allergy/AdvReac Type Severity Reaction Status Date / Time aspirin AdvReac ANAPHYLAXIS Verified 02/07/18 09:57 Results - Vital Signs Recent Vital Signs: Last Vital Signs Temp 97.8 F 02/07/18 14:10 Pulse 52 L 02/07/18 14:24 Resp 20 02/07/18 14:10 BP 134/89 02/07/18 14:10 Pulse Ox 100 02/07/18 14:10 - Labs Result Diagrams: 02/07/18 10:50 02/07/18 10:50 Labs: Laboratory Results - last 24 hr 02/07/18 02/07/18 02/07/18 10:50 10:50 10:50 WBC 11.5 H RBC 3.56 L Hgb 10.8 L Hct 32.2 L MCV 90.3 MCH 30.3 MCHC 33.5 RDW 15.5 H Plt Count 5 L* Manual Plt Count MPV 12.2 H Neut % (Auto) 41.9 L Lymph % (Auto) 33.7 [place] % (Auto) 12.8 H Eos % (Auto) 10.5 H Baso % (Auto) 1.1 Neut # (Auto) 4.8 Lymph # (Auto) 3.9 Cecil # (Auto) 1.5 H Eos # (Auto) 1.2 H Baso # (Auto) 0.1 Differential Comment PT 13.2 H INR 1.2 APTT 32 Sodium 142 Potassium 4.1 Chloride 104 Carbon Dioxide 21 L Anion Gap 22 H BUN 40 H Creatinine 6.4 H Est GFR ( Amer) 12 Est GFR (Non-Af Amer) 10 Random Glucose 137 H Calcium 8.9 Total Bilirubin 0.7 AST 36 ALT 48 Alkaline Phosphatase 111 Total Protein 7.0 Albumin 4.1 Globulin 2.9 Albumin/Globulin Ratio 1.4 Blood Type Antibody Screen 02/07/18 02/07/18 10:53 13:33 WBC RBC Hgb Hct MCV MCH MCHC RDW Plt Count Manual Plt Count 15 L* MPV Neut % (Auto) Lymph % (Auto) [place] % (Auto) Eos % (Auto) Baso % (Auto) Neut # (Auto) Lymph # (Auto) [place] # (Auto) Eos # (Auto) Baso # (Auto) Differential Comment PT INR APTT Sodium Potassium Chloride Carbon Dioxide Anion Gap BUN Creatinine Est GFR ( Amer) Est GFR (Non-Af Amer) Random Glucose Calcium Total Bilirubin AST ALT Alkaline Phosphatase Total Protein Albumin Globulin Albumin/Globulin Ratio Blood Type O POSITIVE Antibody Screen Negative Assessment & Plan - Assessment and Plan (Free Text) Assessment: Left femoral dialysis catheter removal 02/08/18 CBC platelet 5 platelet count 15 f/u cbc am for catheter removal Left femoral dialysis catheter removal 02/08/18 Vascular Surgery: Dr. Quach Atypical HUS with thrombocytopenia (chronic issue) monitor CBC CKD, ESRD, Dialysis T Tuesday Patient has a right anterior chest permacath Nephrology Consult: Dr. Villasenor Monitor Vitals Monitor CMP HTN clonidine 0.2 mg PO BID heme/onc Consult: Dr Kamari Arambula Heart Healthy Diet Prophylaxis: contraindications Patient has thrombocytopenia Dr. Stacie Segovia DO PGY1 - Date & Time Date: 02/07/18 Time: 15:12 <Odette Quinones V - Last Filed: 02/08/18 07:18> Results - Vital Signs Recent Vital Signs: Last Vital Signs Temp 97.8 F 02/07/18 15:03 Pulse 61 02/07/18 15:03 Resp 20 02/07/18 15:03 BP 118/79 02/07/18 15:03 Pulse Ox 100 02/07/18 15:03 - Labs Result Diagrams: 02/07/18 10:50 02/07/18 10:50 Labs: Laboratory Results - last 24 hr 02/07/18 02/07/18 02/07/18 10:50 10:50 10:50 WBC 11.5 H RBC 3.56 L Hgb 10.8 L Hct 32.2 L MCV 90.3 MCH 30.3 MCHC 33.5 RDW 15.5 H Plt Count 5 L* Manual Plt Count MPV 12.2 H Neut % (Auto) 41.9 L Lymph % (Auto) 33.7 Cecil % (Auto) 12.8 H Eos % (Auto) 10.5 H Baso % (Auto) 1.1 Neut # (Auto) 4.8 Lymph # (Auto) 3.9 Cecil # (Auto) 1.5 H Eos # (Auto) 1.2 H Baso # (Auto) 0.1 Differential Comment PT 13.2 H INR 1.2 APTT 32 Sodium 142 Potassium 4.1 Chloride 104 Carbon Dioxide 21 L Anion Gap 22 H BUN 40 H Creatinine 6.4 H Est GFR ( Amer) 12 Est GFR (Non-Af Amer) 10 Random Glucose 137 H Calcium 8.9 Total Bilirubin 0.7 AST 36 ALT 48 Alkaline Phosphatase 111 Total Protein 7.0 Albumin 4.1 Globulin 2.9 Albumin/Globulin Ratio 1.4 Blood Type Antibody Screen 02/07/18 02/07/18 10:53 13:33 WBC RBC Hgb Hct MCV MCH MCHC RDW Plt Count Manual Plt Count 15 L* MPV Neut % (Auto) Lymph % (Auto) Cecil % (Auto) Eos % (Auto) Baso % (Auto) Neut # (Auto) Lymph # (Auto) Cecil # (Auto) Eos # (Auto) Baso # (Auto) Differential Comment PT INR APTT Sodium Potassium Chloride Carbon Dioxide Anion Gap BUN Creatinine Est GFR ( Amer) Est GFR (Non-Af Amer) Random Glucose Calcium Total Bilirubin AST ALT Alkaline Phosphatase Total Protein Albumin Globulin Albumin/Globulin Ratio Blood Type O POSITIVE Antibody Screen Negative Attending/Attestation - Attestation I have personally seen and examined this patient.: Yes I have fully participated in the care of the patient.: Yes I have reviewed all pertinent clinical information: Yes Notes (Text): This is late computer entry for 02/07/18. Patient seen, examined and case discussed with medical records coder. Patient known to the hospitalist service, has hx of hypertension, hearing loss uses hearing aid, esrd on HD, and atypical HUS diagnosed on his first hospitalization available in the EMR. Patient comes in to the hospital because his peritoneal dialysis access is not working. He reports when he goes to dialysis, the nurse at dialysis told him its not working. Patient had permacath placed on 12/21/17 last admission. Patient has hx of atypical HUS, diagnosed by renal biopsy, renal failure following complications from bleeding from renal biopsy requiring IR embolization (1st hospitalization); thrombocytopenia refractory to plasma exchange, steroids, and currently is on Solaris as outpatient. Patient denies any bleeding, rash, nor headache at this time. Patient has been referred to subspecialist in his condition but at this time he cannot afford to see the subspecialist. Patient type and crossed for 2 units of platelets. We are awaiting arrival for platelets. I have spoken with nurseSussy at 6pm, blood bank had not received order, and order clarified with surgery resident, we are awaiting platelets to arrive. Plan is for patient to be scheduled to OR tomorrow, 02/08/18 for removal for non- functioning peritoneal dialysis. Nephrology, vascular surgery, and hematology on consult. EKG shows NSR. Assessment/Plan (1) Peritoneal Catheter Dysfunction Assessment & Plan: * Nephrology (Dr. Villasenor) on the case--> help appreciated * Vascular surgery (Dr. Quach) on the case-->help appreciated * Dr. Quach had placed Permacath placed on Tuesday12/21/17-->no complications during procedure, no blood loss, received platelets, no adverse reaction * Patient type and cross for 2 units of platelets. Awaiting platelets to arrive for transfusion * Patient scheduled for OR tomorrow, 01/19/18, for removal of peritoneal catheter dysfunction. (2) Thrombocytopenia (Chronic) Atypical TTP-HUS (Chronic) Assessment & Plan: * Secondary to atypical HUS * Hematology-oncology (Dr. Reid Benites) on the case--> help appreciated: * Per 1st admission: Renal biopsy: thrombotic microangiopathy, vascular nephrosclerosis, global and segmental glomerulosclerosis, intact linear glomerular and distal tubular basement * Patient is currently on Soliris (Eculuazmab) with Dr. Benites * On Soliris treatment (last dose 12/08/17) * No bleeding no rashes noted * Patient to be type and crossed 2 units of platelets prior to OR. Status: Chronic (3) End stage renal disease (Chronic) Nephrotic syndrome (Chronic) Assessment & Plan: * Nephrology consulted: Dr Villasenor --> help appreciated * Permacath placed on Tuesday12/21/17- Currently, in use for HD M,W,F in patient Status: Chronic (4) Hypertension (Chronic) Assessment & Plan: Medication: * Clonidine 0.2mg PO BID Status: Acute (5) Prophylactic measure Assessment & Plan: GI: Protonix 40mg po daily DVT: SCD, Thrombocytopenic - no chemical anticoagulation needed Status: Acute
--- NOTE | 2018-02-07 18:01 | CP.PCM.CON ---
History of Present Illness - History of Present Illness History of Present Illness: 31 year old male with a history of atypical HUS on eculizumab since 10/2016, resent peritoneal dialysis access insertion, admitted for peritoneal catheter replacement and platelet transfusion . The patient has had an extensive work up pertaining to his thrombocytopenia, anemia, and renal failure. 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 His kidney biopsy was complicated by hemorrhage and need for IR embolization. A bone marrow biopsy revealed normocellular marrow with megakaryocytic hyperplasia consistent with peripheral destruction. Plasma exchange was performed at the time with no improvement in thrombocytopenia or microangiopathic hemolysis. [id number] level returned normal and the patient was felt to have atypical HUS. He was started on eculizumab with variability in his renal function from a cr of 3-5. His platelet count remained severely low and has ranged around 10,000. Past medical history: ?atypical HUS Past surgical history: None Family history: Denies known hematologic and oncologic problems Social history: Denies tobacco, alcohol, and illicit drug use. Allergies: NKA Review of systems: All remaining review of systems including HEENT, cardiovascular, respiratory, gastrointestinal, genitourinary, musculoskeletal, dermatologic, neurologic, and psychiatric are negative unless mentioned in the HPI. Past Patient History - Infectious Disease Hx of Infectious Diseases: None - Past Medical History & Family History Past Medical History?: Yes - Past Social History Smoking Status: Never Smoked - CARDIAC Hx Hypertension: Yes - PULMONARY Hx Respiratory Disorders: No - NEUROLOGICAL Hx Neurological Disorder: No - HEENT Hx HEENT Problems: Yes Other/Comment: HEARING IMPAIRED - RENAL Hx Chronic Kidney Disease: Yes - ENDOCRINE/METABOLIC Hx Endocrine Disorders: No - HEMATOLOGICAL/ONCOLOGICAL Hx Blood Disorders: Yes Other/Comment: Thrombocytopenia - INTEGUMENTARY Hx Dermatological Problems: No - MUSCULOSKELETAL/RHEUMATOLOGICAL Hx Musculoskeletal Disorders: No - GASTROINTESTINAL Hx Gastrointestinal Disorders: No - GENITOURINARY/GYNECOLOGICAL Hx Genitourinary Disorders: No - PSYCHIATRIC Hx Substance Use: No - SURGICAL HISTORY Hx Surgeries: Yes Other/Comment: peritoneal dialysis catheter 05/2017. right chest wall permacath - ANESTHESIA Hx Anesthesia: Yes Hx Anesthesia Reactions: No Hx Malignant Hyperthermia: No Meds Allergies/Adverse Reactions: Allergies Allergy/AdvReac Type Severity Reaction Status Date / Time aspirin AdvReac ANAPHYLAXIS Verified 02/07/18 09:57 - Medications Medications: Current Medications Clonidine HCl (Catapres) 0.2 mg PO BID [facility] Last Admin: 02/07/18 17:08 Dose: 0.2 mg Pantoprazole Sodium (Protonix Ec Tab) 40 mg PO DAILY [facility] Physical Exam - Head Exam Head Exam: ATRAUMATIC - Eye Exam Eye Exam: Normal appearance - ENT Exam ENT Exam: Mucous Membranes Dry - Respiratory Exam Respiratory Exam: NORMAL BREATHING PATTERN - Cardiovascular Exam Cardiovascular Exam: +S1, +S2 - GI/Abdominal Exam GI & Abdominal Exam: Normal Bowel Sounds Results - Vital Signs Recent Vital Signs: Last Vital Signs Temp 97.8 F 02/07/18 15:03 Pulse 61 02/07/18 15:03 Resp 20 02/07/18 15:03 BP 118/79 02/07/18 15:03 Pulse Ox 100 02/07/18 15:03 - Labs Result Diagrams: 02/07/18 10:50 02/07/18 10:50 Labs: Laboratory Results - last 24 hr 02/07/18 02/07/18 02/07/18 10:50 10:50 10:50 WBC 11.5 H RBC 3.56 L Hgb 10.8 L Hct 32.2 L MCV 90.3 MCH 30.3 MCHC 33.5 RDW 15.5 H Plt Count 5 L* Manual Plt Count MPV 12.2 H Neut % (Auto) 41.9 L Lymph % (Auto) 33.7 [place] % (Auto) 12.8 H Eos % (Auto) 10.5 H Baso % (Auto) 1.1 Neut # (Auto) 4.8 Lymph # (Auto) 3.9 [place] # (Auto) 1.5 H Eos # (Auto) 1.2 H Baso # (Auto) 0.1 Differential Comment PT 13.2 H INR 1.2 APTT 32 Sodium 142 Potassium 4.1 Chloride 104 Carbon Dioxide 21 L Anion Gap 22 H BUN 40 H Creatinine 6.4 H Est GFR ( Amer) 12 Est GFR (Non-Af Amer) 10 Random Glucose 137 H Calcium 8.9 Total Bilirubin 0.7 AST 36 ALT 48 Alkaline Phosphatase 111 Total Protein 7.0 Albumin 4.1 Globulin 2.9 Albumin/Globulin Ratio 1.4 Blood Type Antibody Screen 02/07/18 02/07/18 10:53 13:33 WBC RBC Hgb Hct MCV MCH MCHC RDW Plt Count Manual Plt Count 15 L* MPV Neut % (Auto) Lymph % (Auto) [place] % (Auto) Eos % (Auto) Baso % (Auto) Neut # (Auto) Lymph # (Auto) [place] # (Auto) Eos # (Auto) Baso # (Auto) Differential Comment PT INR APTT Sodium Potassium Chloride Carbon Dioxide Anion Gap BUN Creatinine Est GFR ( Amer) Est GFR (Non-Af Amer) Random Glucose Calcium Total Bilirubin AST ALT Alkaline Phosphatase Total Protein Albumin Globulin Albumin/Globulin Ratio Blood Type O POSITIVE Antibody Screen Negative Assessment & Plan - Assessment and Plan (Free Text) Assessment: 1. Thromobocytopenia - secondary to atypical HUS - transfuse 2 bags platelets prior to peritoneal access replacement 2 Anemia - anemia of CKD - EPO per renal 3. Atypical HUS - on eculizumab without improvement - outpatient f/u at tertiary care center for consultation Thank you for this interesting consult.
[2018-02-08] MEDS ORDERED: Propofol 10 mg/ml Inj (20 ML) ONE (07:44)
[2018-02-08] MEDS ORDERED: Midazolam 2 MG/2 ML VIAL ONE (07:44)
--- NOTE | 2018-02-08 07:58 | CP.PCM.PN ---
<Odette Quinones V - Last Filed: 02/08/18 12:28> Objective - Vital Signs/Intake and Output Vital Signs (last 24 hours): Temp Pulse Resp BP Pulse Ox 97.6 F 55 L 18 115/74 98 02/08/18 10:40 02/08/18 10:40 02/08/18 10:40 02/08/18 10:40 02/08/18 10:40 Intake and Output: 02/08/18 02/08/18 06:59 18:59 Intake Total 748 501 Balance 748 501 - Medications Medications: Current Medications Clonidine HCl (Catapres) 0.2 mg PO BID [facility] Last Admin: 02/08/18 10:37 Dose: 0.2 mg Oxycodone/Acetaminophen (Percocet 5/325 Mg Tab) 1 tab PO Q4H PRN PRN Reason: Pain, moderate (4-7) Stop: 02/11/18 08:58 Pantoprazole Sodium (Protonix Ec Tab) 40 mg PO DAILY [facility] Last Admin: 02/08/18 10:37 Dose: 40 mg - Labs Labs: 02/08/18 07:50 02/08/18 07:50 PT 13.2 SECONDS (9.7-12.2) H 02/07/18 10:50 INR 1.2 02/07/18 10:50 APTT 32 SECONDS (21-34) 02/07/18 10:50 Attending/Attestation - Attestation I have personally seen and examined this patient.: Yes I have fully participated in the care of the patient.: Yes I have reviewed all pertinent clinical information, including history, physical exam and plan: Yes Notes (Text): Patient seen, examined and case discussed with day-time resident. Patient seen post-operative from peritoneal catheter removal. Patient is doing well. Platelets improved. No bleeding complications. Patient does not have any rash at bedside. Patient has mild pain at surgical site. Surgery stable from their standpoint. Patient did not have dialysis yesterday; we will need to follow-up with nephrology for patient receive his dialysis today. Assessment/Plan (1) Peritoneal Catheter Dysfunction Assessment & Plan: * Nephrology (Dr. Villasenor) on the case--> help appreciated * Vascular surgery (Dr. Quach) on the case-->help appreciated * Dr. Quach had placed Permacath placed on Tuesday12/21/17-->no complications during procedure, no blood loss, received platelets, no adverse reaction * Patient received 2 units of platelets prior to OR today. * OR 01/19/18: Peritoneal catheter removed. NO complications note. Per surgery, stable for discharge. (2) Thrombocytopenia (Chronic) Atypical TTP-HUS (Chronic) Assessment & Plan: * Secondary to atypical HUS * Hematology-oncology (Dr. Reid Benites) on the case--> help appreciated: * Per 1st admission: Renal biopsy: thrombotic microangiopathy, vascular nephrosclerosis, global and segmental glomerulosclerosis, intact linear glomerular and distal tubular basement * Patient is currently on Soliris (Eculuazmab) with Dr. Benites * On Soliris treatment as outpatient. Patient was recommended to see subspecialist but has not yet established care secondary to lack of affordability. * No bleeding no rashes noted * Patient received 2 units of platelets prior to OR Status: Chronic (3) End stage renal disease (Chronic) Nephrotic syndrome (Chronic) Assessment & Plan: * Nephrology consulted: Dr Villasenor --> help appreciated * Permacath placed on Tuesday12/21/17 * Peritonal dialysis catheter removed * As outpatient, patient is usually T/Th/Sat; patient did not have dialysis yesterday we will need to follow-up for dialysis orders today with nephrology. Status: Chronic (4) Hypertension (Chronic) Assessment & Plan: Medication: * Clonidine 0.2mg PO BID Status: Acute (5) Prophylactic measure Assessment & Plan: * GI PPx: Protonix 40mg po daily * DVT Ppx: SCD, Thrombocytopenic - no chemical anticoagulation needed Status: Acute <Belinda Segovia - Last Filed: 02/08/18 13:11> Subjective - Date & Time of Evaluation Date of Evaluation: 02/08/18 Time of Evaluation: 07:57 - Subjective Subjective: Progress Note Patient seen and examined at bedside. Patient tolerated procedure well and is s/ p left peritoneal dialysis catheter removal. Patient denies fever, chills, nausea, dizziness, back pain. PAtient admits to abdominal pain at site of former peritoneal dialysis catheter. Objective - Vital Signs/Intake and Output Vital Signs (last 24 hours): Temp Pulse Resp BP Pulse Ox 98.3 F 72 18 109/72 98 02/08/18 07:04 02/08/18 07:04 02/08/18 07:04 02/08/18 07:04 02/08/18 07:00 Intake and Output: 02/08/18 02/08/18 06:59 18:59 Intake Total 748 Balance 748 - Medications Medications: Current Medications Clonidine HCl (Catapres) 0.2 mg PO BID [facility] Last Admin: 02/07/18 17:08 Dose: 0.2 mg Pantoprazole Sodium (Protonix Ec Tab) 40 mg PO DAILY [facility] - Labs Labs: 02/07/18 10:50 02/07/18 10:50 PT 13.2 SECONDS (9.7-12.2) H 02/07/18 10:50 INR 1.2 02/07/18 10:50 APTT 32 SECONDS (21-34) 02/07/18 10:50 - Constitutional Appears: Well - Head Exam Head Exam: ATRAUMATIC, NORMAL INSPECTION, NORMOCEPHALIC - Eye Exam Eye Exam: EOMI, Normal appearance, PERRL Pupil Exam: NORMAL ACCOMODATION, PERRL - ENT Exam ENT Exam: Mucous Membranes Moist, Normal Exam, Normal External Ear Exam - Neck Exam Neck Exam: Full ROM, Normal Inspection. absent: Lymphadenopathy, Thyromegaly - Respiratory Exam Respiratory Exam: Clear to Ausculation Bilateral, NORMAL BREATHING PATTERN - Cardiovascular Exam Cardiovascular Exam: REGULAR RHYTHM, +S1, +S2. absent: Murmur - GI/Abdominal Exam GI & Abdominal Exam: Soft, Tenderness (LLQ pain at site of peritoneal dialysis catheter. no hematoma, pressure dressings c/d/i), Normal Bowel Sounds - Extremities Exam Extremities Exam: Full ROM, Normal Capillary Refill, Normal Inspection. absent : Joint Swelling, Pedal Edema - Neurological Exam Neurological Exam: Alert, Awake, CN II-XII Intact - Psychiatric Exam Psychiatric exam: Normal Affect, Normal Mood - Skin Skin Exam: Dry, Intact, Normal Color, Warm Assessment and Plan - Assessment and Plan (Free Text) Assessment: Left femoral dialysis catheter removal 02/08/18 CBC platelet 5 platelet count 15 02/07 2 u platelets transfused peritoneal dialysis catheter removal 02/08/18 Left femoral dialysis catheter removal 02/08/18 Vascular Surgery: Dr. Quach Atypical HUS with thrombocytopenia (chronic issue) monitor CBC CKD, ESRD, Dialysis T Tuesday (at home) and MWF in this hospital Patient has a right anterior chest permacath Nephrology Consult: Dr. Villasenor Monitor Vitals Monitor CMP HTN clonidine 0.2 mg PO BID heme/onc Consult: Dr Benites Diet Heart Healthy Diet Prophylaxis: contraindications Patient has thrombocytopenia Dr. Stacie Segovia, DO PGY1
[2018-02-08 08:14] LABS: BASO # 0.1 K/uL (0.0-0.2); BASO % 0.4 % (0.0-2.0); EOS # 0.4 K/uL (0.0-0.7); EOS % 3.1 % (0.0-4.0); HEMOGLOBIN 10.7 g/dL (12.0-18.0); LYMPH # 1.4 K/uL (1.0-4.3); LYMPH % 10.3 % (20.0-40.0); MEAN CELL VOLUME 89.7 fL (80.0-94.0); MEAN CORPUSCULAR HEMOGLOBIN 30.3 pg (27.0-31.0); MEAN CORPUSCULAR HGB CONC 33.8 g/dL (33.0-37.0); MEAN PLATELET VOLUME 7.2 fL (7.2-11.7); MONO # 0.8 K/uL (0.0-0.8); MONO % 5.5 % (0.0-10.0); NEUT # 11.2 K/uL (1.8-7.0); NEUT % 80.7 % (50.0-75.0); NRBC % 0.1 % (0.0-2.0); RBC 3.54 Mil/uL (4.40-5.90); RED CELL DISTRIBUTION WIDTH 15.5 % (11.5-14.5); WHITE BLOOD COUNT 13.9 K/uL (4.8-10.8)
[2018-02-08] MEDS ORDERED: ceFAZolin 1 gm in NS 1 GM/100 ML BAG IVPB ONE (08:26)
[2018-02-08] MEDS ORDERED: Lidocaine/Epinephrine 1% 1:100000 10 ML IJ ONE (08:27)
[2018-02-08 08:36] LABS: ALB/GLOB RATIO 1.3 (1.0-2.1); ALBUMIN 3.8 g/dL (3.5-5.0); CALCIUM 9.1 mg/dl (8.6-10.4)
--- NOTE | 2018-02-08 08:53 | PCM.SURG1 ---
Surgeon's Initial Post Op Note - Surgeon's Notes Surgeon: [email or web address] Regional Training Manager: 0 Type of Anesthesia: General LMA Anesthesia Administered By: ayse Pre-Operative Diagnosis: unnecessary intra peritoneal device( tenckhoff catheter ) Operative Findings: entire catheter removed. no bleeding of significance Post-Operative Diagnosis: same Operation Performed: removal of peritoneal dialysis catheter Specimen/Specimens Removed: catheter in 2 pieces Estimated Blood Loss: EBL {In ML}: 3 Blood Products Given: N/A Drains Used: No Drains Post-Op Condition: Good Date of Surgery/Procedure: 02/08/18 Time of Surgery/Procedure: 08:53
[2018-02-08] MEDS ORDERED: HYDROmorphone 1 mg/ml ISec ONE (09:35)
[2018-02-08] MEDS: HYDROmorphone 0.5 mg/0.5 ml ISec IVP PRN ×2 (09:36→09:38)
[2018-02-08] MEDS: Pantoprazole 40 mg EC Tab PO SCH (10:37)
--- NOTE | 2018-02-08 13:44 | CP.PCM.CON ---
History of Present Illness - History of Present Illness History of Present Illness: 32M with a PMH of HTN, CKD, ESRD (HD Tues, Thurs, Sat), known atypical HUS and thrombocytopenia, HTN who presented to the ED for removal of his PD cath and for platelet transfusion. He suffered acute peritonitis in 12/01 and refused to go back to PD; since then he has been using a right chest perma cath for HD. His surgeon told him that he must have his platelets transfused before and was able to have the PD cath removed. He currently feels well and denies fevers chills, CP, SOB, N/V/C/D, abdominal pain, weakness, numbness and tingling. Post op with excision pains PMH: HTN, CKD, ESRD, known typical HUS, thrombocytopenia Surg Hx: PD cath placed 05/2017, renal biopsy 03/2017, right chest permacath placed 03/2017, splenectomy at 4 y/o FMH: Denies, no CKD Soc: no ETOH, smoking, illicits Meds: Clonidine 0.2mg PMD: [facility] Allergies: Aspirin - Rash, nausea Nephrology: Dr. Villasenor Vascular: Dr. Quach Heme-Onc: Dr. Benites Review of Systems - Review of Systems All systems: reviewed and no additional remarkable complaints except - Gastrointestinal Gastrointestinal: Abdominal Pain Past Patient History - Infectious Disease Hx of Infectious Diseases: None - Past Medical History & Family History Past Medical History?: Yes - Past Social History Smoking Status: Never Smoked Chewing Tobacco Use: No Cigar Use: No Alcohol: None Drugs: Denies Domestic Violence: Negative - CARDIAC Hx Hypertension: Yes - PULMONARY Hx Respiratory Disorders: No - NEUROLOGICAL Hx Neurological Disorder: No - HEENT Hx HEENT Problems: Yes Other/Comment: HEARING IMPAIRED - RENAL Hx Chronic Kidney Disease: Yes - ENDOCRINE/METABOLIC Hx Endocrine Disorders: No - HEMATOLOGICAL/ONCOLOGICAL Hx Blood Disorders: Yes Other/Comment: Thrombocytopenia - INTEGUMENTARY Hx Dermatological Problems: No - MUSCULOSKELETAL/RHEUMATOLOGICAL Hx Musculoskeletal Disorders: No - GASTROINTESTINAL Hx Gastrointestinal Disorders: No - GENITOURINARY/GYNECOLOGICAL Hx Genitourinary Disorders: No - PSYCHIATRIC Hx Substance Use: No - SURGICAL HISTORY Hx Surgeries: Yes Other/Comment: peritoneal dialysis catheter 05/2017. right chest wall permacath - ANESTHESIA Hx Anesthesia: Yes Hx Anesthesia Reactions: No Hx Malignant Hyperthermia: No Meds Allergies/Adverse Reactions: Allergies Allergy/AdvReac Type Severity Reaction Status Date / Time aspirin AdvReac ANAPHYLAXIS Verified 02/07/18 09:57 - Medications Medications: Current Medications Clonidine HCl (Catapres) 0.2 mg PO BID [facility] Last Admin: 02/08/18 10:37 Dose: 0.2 mg Oxycodone/Acetaminophen (Percocet 5/325 Mg Tab) 1 tab PO Q4H PRN PRN Reason: Pain, moderate (4-7) Stop: 02/11/18 08:58 Pantoprazole Sodium (Protonix Ec Tab) 40 mg PO DAILY [facility] Last Admin: 02/08/18 10:37 Dose: 40 mg Physical Exam - Constitutional Appears: Non-toxic, Chronically Ill - Head Exam Head Exam: ATRAUMATIC, NORMAL INSPECTION - Eye Exam Eye Exam: EOMI, Normal appearance - Neck Exam Neck exam: Positive for: Normal Inspection. Negative for: Tenderness - Respiratory Exam Respiratory Exam: Clear to Auscultation Bilateral, NORMAL BREATHING PATTERN - Cardiovascular Exam Cardiovascular Exam: REGULAR RHYTHM, +S1 - GI/Abdominal Exam GI & Abdominal Exam: Soft, Tenderness - Extremities Exam Extremities exam: Positive for: normal inspection. Negative for: tenderness - Neurological Exam Neurological exam: Alert, CN II-XII Intact - Skin Skin Exam: Dry, Warm Results - Vital Signs Recent Vital Signs: Last Vital Signs Temp 97.6 F 02/08/18 10:40 Pulse 55 L 02/08/18 10:40 Resp 18 02/08/18 10:40 BP 115/74 02/08/18 10:40 Pulse Ox 98 02/08/18 10:40 - Labs Result Diagrams: 02/08/18 07:50 02/08/18 07:50 Labs: Laboratory Results - last 24 hr 02/07/18 02/07/18 02/08/18 10:53 13:33 07:50 WBC 13.9 H RBC 3.54 L Hgb 10.7 L Hct 31.8 L MCV 89.7 MCH 30.3 MCHC 33.8 RDW 15.5 H Plt Count 18 L* D Manual Plt Count 15 L* MPV 7.2 Neut % (Auto) 80.7 H Lymph % (Auto) 10.3 L [place] % (Auto) 5.5 Eos % (Auto) 3.1 Baso % (Auto) 0.4 Neut # (Auto) 11.2 H Lymph # (Auto) 1.4 [place] # (Auto) 0.8 Eos # (Auto) 0.4 Baso # (Auto) 0.1 Differential Comment Sodium Potassium Chloride Carbon Dioxide Anion Gap BUN Creatinine Est GFR ( Amer) Est GFR (Non-Af Amer) Random Glucose Calcium Phosphorus Magnesium Total Bilirubin AST ALT Alkaline Phosphatase Total Protein Albumin Globulin Albumin/Globulin Ratio Blood Type O POSITIVE Antibody Screen Negative 02/08/18 07:50 WBC RBC Hgb Hct MCV MCH MCHC RDW Plt Count Manual Plt Count MPV Neut % (Auto) Lymph % (Auto) [place] % (Auto) Eos % (Auto) Baso % (Auto) Neut # (Auto) Lymph # (Auto) [place] # (Auto) Eos # (Auto) Baso # (Auto) Differential Comment Sodium 142 Potassium 5.1 Chloride 109 H Carbon Dioxide 20 L Anion Gap 19 BUN 45 H Creatinine 6.5 H Est GFR ( Amer) 12 Est GFR (Non-Af Amer) 10 Random Glucose 92 Calcium 9.1 Phosphorus 3.5 Magnesium 2.2 Total Bilirubin 0.7 AST 41 ALT 51 Alkaline Phosphatase 116 Total Protein 6.7 Albumin 3.8 Globulin 2.9 Albumin/Globulin Ratio 1.3 Blood Type Antibody Screen Assessment & Plan (1) ESRD (end stage renal disease) Status: Acute (2) Atypical hemolytic uremic syndrome Status: Acute (3) HUS (hemolytic uremic syndrome), atypical Status: Chronic - Assessment and Plan (Free Text) Plan: dialysis TTS surgical follow up
--- NOTE | 2018-02-08 19:35 | OP ---
PROCEDURE DATE: PREOPERATIVE DIAGNOSIS: Unnecessary intraperitoneal device (Tenckhoff catheter). PROCEDURE: Removal of Tenckhoff catheter. SURGEON: Abdelrahman Quach Jr., M.D. ASSOCIATE DIRECTOR OF SALES: None. TYPE OF ANESTHESIA: General anesthesia, although local was also administered with epinephrine. ANESTHESIA ADMINISTERED BY: Dr. Vallejo. INDICATIONS: The patient is a young man with thrombocytopenia, originally on peritoneal dialysis. This was unable to be completed successfully for variety of reasons. OPERATIVE FINDINGS: The entire catheter was removed, both cuffs were removed in their entirety. DESCRIPTION OF PROCEDURE: The patient was given local anesthesia. Incision was made adjacent to the umbilicus. Catheter was grasped in the middle. The two cuffed ends were then removed and the catheter was removed entirely. The one point where the incision had been made, which was a 1.5 cm long, was then closed and Steri-Strips applied to the skin. Blood loss was 3 mL. Operation carried out was removal of Tenckhoff catheter. Abdelrahman Quach Jr., MD
[2018-02-08] MEDS: Oxycodone/Acetaminophen 5/325 mg Tab PO PRN (21:39)
[2018-02-09] MEDS: Oxycodone/Acetaminophen 5/325 mg Tab PO PRN (06:15)
[2018-02-09 07:39] LABS: BASO # 0.1 K/uL (0.0-0.2); MEAN CORPUSCULAR HGB CONC 33.2 g/dL (33.0-37.0); NRBC % 0.2 % (0.0-2.0)
[2018-02-09 07:58] LABS: BASO % 0.7 % (0.0-2.0); EOS # 1.3 K/uL (0.0-0.7); EOS % 12.5 % (0.0-4.0); HEMOGLOBIN 10.2 g/dL (12.0-18.0); LYMPH # 4.1 K/uL (1.0-4.3); LYMPH % 40.3 % (20.0-40.0); MEAN CELL VOLUME 90.6 fL (80.0-94.0); MEAN CORPUSCULAR HEMOGLOBIN 30.1 pg (27.0-31.0); MONO # 1.5 K/uL (0.0-0.8); MONO % 14.3 % (0.0-10.0); NEUT # 3.3 K/uL (1.8-7.0); NEUT % 32.2 % (50.0-75.0); RBC 3.38 Mil/uL (4.40-5.90); RED CELL DISTRIBUTION WIDTH 15.9 % (11.5-14.5); WHITE BLOOD COUNT 10.2 K/uL (4.8-10.8)
[2018-02-09 09:43] LABS: ALB/GLOB RATIO 1.3 (1.0-2.1); ALBUMIN 3.5 g/dL (3.5-5.0); CALCIUM 8.8 mg/dl (8.6-10.4)
--- NOTE | 2018-02-09 09:52 | CP.PCM.PN ---
Subjective - Date & Time of Evaluation Date of Evaluation: 02/09/18 Time of Evaluation: 09:51 - Subjective Subjective: less abdominal pains; no discharges HTN controlled for dialysis today Objective - Vital Signs/Intake and Output Vital Signs (last 24 hours): Temp Pulse Resp BP Pulse Ox 98.5 F 64 20 117/76 97 02/09/18 07:57 02/09/18 07:57 02/09/18 07:57 02/09/18 07:57 02/09/18 07:57 Intake and Output: 02/09/18 02/09/18 06:59 18:59 Intake Total 600 Balance 600 - Medications Medications: Current Medications Clonidine HCl (Catapres) 0.2 mg PO BID [facility] Last Admin: 02/08/18 17:39 Dose: Not Given Oxycodone/Acetaminophen (Percocet 5/325 Mg Tab) 1 tab PO Q4H PRN PRN Reason: Pain, moderate (4-7) Stop: 02/11/18 08:58 Last Admin: 02/09/18 06:15 Dose: 1 tab Pantoprazole Sodium (Protonix Ec Tab) 40 mg PO DAILY [facility] Last Admin: 02/08/18 10:37 Dose: 40 mg - Labs Labs: 02/09/18 07:09 02/09/18 07:09 PT 13.2 SECONDS (9.7-12.2) H 02/07/18 10:50 INR 1.2 02/07/18 10:50 APTT 32 SECONDS (21-34) 02/07/18 10:50 - Constitutional Appears: No Acute Distress, Chronically Ill - Head Exam Head Exam: ATRAUMATIC, NORMAL INSPECTION - Eye Exam Eye Exam: EOMI, Normal appearance - Neck Exam Neck Exam: Normal Inspection. absent: Tenderness - Respiratory Exam Respiratory Exam: Clear to Ausculation Bilateral, NORMAL BREATHING PATTERN - Cardiovascular Exam Cardiovascular Exam: REGULAR RHYTHM, +S1 - GI/Abdominal Exam GI & Abdominal Exam: Soft. absent: Tenderness - Extremities Exam Extremities Exam: Normal Inspection. absent: Tenderness - Neurological Exam Neurological Exam: Awake, CN II-XII Intact - Skin Skin Exam: Dry, Warm Assessment and Plan (1) ESRD (end stage renal disease) Status: Acute (2) Atypical hemolytic uremic syndrome Status: Acute (3) HUS (hemolytic uremic syndrome), atypical Status: Chronic - Assessment and Plan (Free Text) Plan: dialysis today surgical follow up same meds
[2018-02-09] MEDS: Pantoprazole 40 mg EC Tab PO SCH (09:59)
--- NOTE | 2018-02-09 10:15 | CP.PCM.PN ---
Subjective - Date & Time of Evaluation Date of Evaluation: 02/09/18 Time of Evaluation: 07:10 - Subjective Subjective: Surgery Progress note. Dr. Quach Pt seen and examined at bedside. no acute events overnight. Dressings clean. Mild abdominal pain but tolerable. No new complaints. Objective - Vital Signs/Intake and Output Vital Signs (last 24 hours): Temp Pulse Resp BP Pulse Ox 98.5 F 64 20 117/76 97 02/09/18 07:57 02/09/18 07:57 02/09/18 07:57 02/09/18 07:57 02/09/18 07:57 Intake and Output: 02/09/18 02/09/18 06:59 18:59 Intake Total 600 Balance 600 - Medications Medications: Current Medications Clonidine HCl (Catapres) 0.2 mg PO BID [facility] Last Admin: 02/09/18 09:59 Dose: Not Given Oxycodone/Acetaminophen (Percocet 5/325 Mg Tab) 1 tab PO Q4H PRN PRN Reason: Pain, moderate (4-7) Stop: 02/11/18 08:58 Last Admin: 02/09/18 06:15 Dose: 1 tab Pantoprazole Sodium (Protonix Ec Tab) 40 mg PO DAILY [facility] Last Admin: 02/09/18 09:59 Dose: 40 mg - Labs Labs: 02/09/18 07:09 02/09/18 07:09 PT 13.2 SECONDS (9.7-12.2) H 02/07/18 10:50 INR 1.2 02/07/18 10:50 APTT 32 SECONDS (21-34) 02/07/18 10:50 - Constitutional Appears: Non-toxic, No Acute Distress - Head Exam Head Exam: ATRAUMATIC, NORMAL INSPECTION, NORMOCEPHALIC - Eye Exam Eye Exam: EOMI, Normal appearance - ENT Exam ENT Exam: Mucous Membranes Moist - Respiratory Exam Respiratory Exam: NORMAL BREATHING PATTERN. absent: Accessory Muscle Use, Respiratory Distress - Cardiovascular Exam Cardiovascular Exam: absent: JVD - GI/Abdominal Exam GI & Abdominal Exam: Soft. absent: Distended, Firm, Guarding, Rigid, Tenderness , Rebound Additional comments: Dressing clean, dry and intact. - Extremities Exam Extremities Exam: Normal Inspection. absent: Calf Tenderness - Back Exam Back Exam: NORMAL INSPECTION - Neurological Exam Neurological Exam: Alert, Awake, Oriented x3 - Skin Skin Exam: Dry, Intact, Normal Color, Warm Assessment and Plan - Assessment and Plan (Free Text) Assessment: 32yo M s/p removal of peritoneal dialysis catheter. POD 1 Plan: - HD via permacath - No further plans from surgical standpoint Further recs as per Dr. Philomena Devine PGY1 surgery pager: [phone]
--- NOTE | 2018-02-09 12:42 | CP.PCM.PN ---
Subjective - Date & Time of Evaluation Date of Evaluation: 02/09/18 Time of Evaluation: 12:42 - Subjective Subjective: Progress note Patient for dialysis today. Patient denies fever, chills, nausea, vomiting diarrhea. No acute events overnight. Objective - Vital Signs/Intake and Output Vital Signs (last 24 hours): Temp Pulse Resp BP Pulse Ox 97.9 F 56 L 18 131/94 H 99 02/09/18 11:30 02/09/18 11:30 02/09/18 11:30 02/09/18 11:30 02/09/18 11:30 Intake and Output: 02/09/18 02/09/18 06:59 18:59 Intake Total 600 Balance 600 - Medications Medications: Current Medications Clonidine HCl (Catapres) 0.2 mg PO BID [facility] Last Admin: 02/09/18 09:59 Dose: Not Given Oxycodone/Acetaminophen (Percocet 5/325 Mg Tab) 1 tab PO Q4H PRN PRN Reason: Pain, moderate (4-7) Stop: 02/11/18 08:58 Last Admin: 02/09/18 06:15 Dose: 1 tab Pantoprazole Sodium (Protonix Ec Tab) 40 mg PO DAILY [facility] Last Admin: 02/09/18 09:59 Dose: 40 mg - Labs Labs: 02/09/18 07:09 02/09/18 07:09 PT 13.2 SECONDS (9.7-12.2) H 02/07/18 10:50 INR 1.2 02/07/18 10:50 APTT 32 SECONDS (21-34) 02/07/18 10:50 - Additional Findings Additional findings: Constitutional Appears: Well - Head Exam Head Exam: ATRAUMATIC, NORMAL INSPECTION, NORMOCEPHALIC - Eye Exam Eye Exam: EOMI, Normal appearance, PERRL Pupil Exam: NORMAL ACCOMODATION, PERRL - ENT Exam ENT Exam: Mucous Membranes Moist, Normal Exam, Normal External Ear Exam - Neck Exam Neck Exam: Full ROM, Normal Inspection. absent: Lymphadenopathy, Thyromegaly - Respiratory Exam Respiratory Exam: Clear to Ausculation Bilateral, NORMAL BREATHING PATTERN - Cardiovascular Exam Cardiovascular Exam: REGULAR RHYTHM, +S1, +S2. absent: Murmur - GI/Abdominal Exam GI & Abdominal Exam: Soft, Tenderness (LLQ pain at site of peritoneal dialysis catheter. no hematoma, pressure dressings with minor breakthrough bleeding), Normal Bowel Sounds - Extremities Exam Extremities Exam: Full ROM, Normal Capillary Refill, Normal Inspection. absent : Joint Swelling, Pedal Edema - Neurological Exam Neurological Exam: Alert, Awake, CN II-XII Intact - Psychiatric Exam Psychiatric exam: Normal Affect, Normal Mood - Skin Skin Exam: Dry, Intact, Normal Color, Warm Assessment and Plan - Assessment and Plan (Free Text) Assessment: Left femoral dialysis catheter removal 02/08/18 patient is hemodynamically stable CBC platelet 5 platelet count 15 02/07 2 u platelets transfused peritoneal dialysis catheter removal 02/08/18 Left femoral dialysis catheter removal 02/08/18 Vascular Surgery: Dr. Quach Atypical HUS with thrombocytopenia (chronic issue) monitor CBC CKD, ESRD, Dialysis T Tuesday (at home) and MWF in this hospital Patient has a right anterior chest permacath Nephrology Consult: Dr. Villasenor Monitor Vitals Monitor CMP HTN clonidine 0.2 mg PO BID heme/onc Consult: Dr Benites Diet Heart Healthy Diet Prophylaxis: contraindications Patient has thrombocytopenia Dr. Stacie Segovia, DO PGY1
--- NOTE | 2018-02-09 14:42 | CP.PCM.DIS ---
Provider - Provider Date of Admission: 02/07/18 12:32 Attending physician: Odette Quinones DO Consults: Heme-Inc: Dr. Benites Nephro: Dr. Villasenor Vascular Surg: Dr. Quach Time Spent in preparation of Discharge (in minutes): 35 Hospital Course - Lab Results Lab Results: Most Recent Lab Values WBC 10.2 K/uL (4.8-10.8) 02/09/18 07:09 RBC 3.38 Mil/uL (4.40-5.90) L 02/09/18 07:09 Hgb 10.2 g/dL (12.0-18.0) L 02/09/18 07:09 Hct 30.6 % (35.0-51.0) L 02/09/18 07:09 MCV 90.6 fL (80.0-94.0) 02/09/18 07:09 MCH 30.1 pg (27.0-31.0) 02/09/18 07:09 MCHC 33.2 g/dL (33.0-37.0) 02/09/18 07:09 RDW 15.9 % (11.5-14.5) H 02/09/18 07:09 Plt Count 5 K/uL (130-400) L* D 02/09/18 07:09 Manual Plt Count 15 K/uL (130-400) L* 02/07/18 13:33 MPV 12.0 fL (7.2-11.7) H 02/09/18 07:09 Neut % (Auto) 32.2 % (50.0-75.0) L 02/09/18 07:09 Lymph % (Auto) 40.3 % (20.0-40.0) H 02/09/18 07:09 [place] % (Auto) 14.3 % (0.0-10.0) H 02/09/18 07:09 Eos % (Auto) 12.5 % (0.0-4.0) H 02/09/18 07:09 Baso % (Auto) 0.7 % (0.0-2.0) 02/09/18 07:09 Neut # (Auto) 3.3 K/uL (1.8-7.0) 02/09/18 07:09 Lymph # (Auto) 4.1 K/uL (1.0-4.3) 02/09/18 07:09 [place] # (Auto) 1.5 K/uL (0.0-0.8) H 02/09/18 07:09 Eos # (Auto) 1.3 K/uL (0.0-0.7) H 02/09/18 07:09 Baso # (Auto) 0.1 K/uL (0.0-0.2) 02/09/18 07:09 Differential Comment 02/08/18 07:50 PT 13.2 SECONDS (9.7-12.2) H 02/07/18 10:50 INR 1.2 02/07/18 10:50 APTT 32 SECONDS (21-34) 02/07/18 10:50 Sodium 142 mmol/L (132-148) 02/09/18 07:09 Potassium 5.1 mmol/L (3.6-5.2) 02/09/18 07:09 Chloride 110 mmol/L (98-107) H 02/09/18 07:09 Carbon Dioxide 17 mmol/L (22-30) L 02/09/18 07:09 Anion Gap 20 (10-20) 02/09/18 07:09 BUN 44 mg/dL (9-20) H 02/09/18 07:09 Creatinine 6.3 mg/dL (0.8-1.5) H 02/09/18 07:09 Est GFR ( Amer) 12 02/09/18 07:09 Est GFR (Non-Af Amer) 10 02/09/18 07:09 Random Glucose 80 mg/dL (75-110) 02/09/18 07:09 Calcium 8.8 mg/dl (8.6-10.4) 02/09/18 07:09 Phosphorus 4.1 mg/dL (2.5-4.5) 02/09/18 07:09 Magnesium 2.2 mg/dL (1.6-2.3) 02/09/18 07:09 Total Bilirubin 0.4 mg/dL (0.2-1.3) 02/09/18 07:09 AST 56 U/L (17-59) 02/09/18 07:09 ALT 46 U/L (21-72) 02/09/18 07:09 Alkaline Phosphatase 121 U/L (38-126) 02/09/18 07:09 Total Protein 6.2 g/dL (6.3-8.3) L 02/09/18 07:09 Albumin 3.5 g/dL (3.5-5.0) 02/09/18 07:09 Globulin 2.7 gm/dL (2.2-3.9) 02/09/18 07:09 Albumin/Globulin Ratio 1.3 (1.0-2.1) 02/09/18 07:09 Blood Type O POSITIVE 02/07/18 10:53 Antibody Screen Negative 02/07/18 10:53 - Hospital Course Hospital Course: HPI: 21M with a PMH of HTN, CKD, ESRD (HD , , Tue), known atypical HUS and thrombocytopenia presented to the ED for removal of this left groin PD cath and for platelet transfusion. He states that he had been using his grown cath for PD until this past November when it became infected; since then he has been using a right chest perma cath cath for HD. His surgeon told him that he must have his platelets transfused before he is able to have the groin cath removed. He currently feels well and denies fevers/chills, CP, SOC, N/V/C/D, abdominal pain, weakness, numbness and tingling. Hospital Course: ED ordered bloodwork, EKG, CXR and platelet transfusion. Pt admitted to hospital routine inpatient for severe thrombocytopenia and removal of dialysis catheter. Pt given 2 units of platelets over night and 1 additional unit the next morning. PD cath was removed without complication. Pt hemodynamically stable and tolerated procedure well. The following day he reported of some mild pain and tenderness at the site. No eccymoses or bleeding. He received hemodialysis 02/09 without issue and will be discharged following that. - Date & Time of H&P Date of H&P: 02/09/18 Time of H&P: 16:47 Discharge Exam - Head Exam Head Exam: ATRAUMATIC, NORMAL INSPECTION, NORMOCEPHALIC - Additional Findings Additional findings: Constitutional Appears: Well - Eye Exam Eye Exam: EOMI, Normal appearance, PERRL Pupil Exam: NORMAL ACCOMODATION, PERRL - ENT Exam ENT Exam: Mucous Membranes Moist, Normal Exam, Normal External Ear Exam - Neck Exam Neck Exam: Full ROM, Normal Inspection. absent: Lymphadenopathy, Thyromegaly - Respiratory Exam Respiratory Exam: Clear to Ausculation Bilateral, NORMAL BREATHING PATTERN - Cardiovascular Exam Cardiovascular Exam: REGULAR RHYTHM, +S1, +S2. absent: Murmur - GI/Abdominal Exam GI & Abdominal Exam: Soft, Tenderness (LLQ pain at site of peritoneal dialysis catheter. no hematoma, pressure dressings some breakthrough bleeding), Normal Bowel Sounds - Extremities Exam Extremities Exam: Full ROM, Normal Capillary Refill, Normal Inspection. absent : Joint Swelling, Pedal Edema - Neurological Exam Neurological Exam: Alert, Awake, CN II-XII Intact - Psychiatric Exam Psychiatric exam: Normal Affect, Normal Mood - Skin Skin Exam: Dry, Normal Color, Warm Discharge Plan - Follow Up Plan Condition: STABLE Disposition: HOME/ ROUTINE Instructions: End Stage Kidney Disease (DC), Dialysis and Diet, Myelodysplastic Syndromes (DC) Additional Instructions: follow up with Dr. Quach in 1 week follow up with primary care doctor in 1 week continue dialysis as tolerated Referrals: Gustavo Villasenor MD [Staff Provider] - Abdelrahman Quach Jr., MD [Staff Provider] -
[2018-02-09 14:56] VITALS: O2SAT 99
[2018-02-09] MEDS ORDERED: Pneumococcal 23-Valent Vaccine IM ONE (15:55)
[2018-02-09 16:35] VITALS: BP 139/83; PULSE 74; RESP 20; TEMP 98.1
--- NOTE | 2018-02-10 07:18 | CARD ---
APPROVED REPORT EKG Measurement Heart [id number] [id number] <Conclusion> Sinus bradycardia with 1st degree AV block Otherwise normal ECG
== END 2018-02-09 16:33 | disposition home or self-care (01) | DRG 981 ==
LOC: C.ER 09:52 → C.9E 12:32 → C.5S 13:36 → C.3T 02-08 21:50
PROVIDERS: ADMIT Hospitalist; ATTEND Hospitalist
PROC: 30233R1 Transfusion of Nonautologous Platelets into Peripheral Vein, Percutaneous Approach (ICD-10-PCS; 2018-02-07)
PROC: 0WPG03Z Removal of Infusion Device from Peritoneal Cavity, Open Approach (ICD-10-PCS; principal; 2018-02-08 08:20)
PROC: 5A1D70Z Performance of Urinary Filtration, Intermittent, Less than 6 Hours Per Day (ICD-10-PCS; 2018-02-09)
DX: T85.611A Breakdown (mechanical) of intraperitoneal dialysis catheter, initial encounter (principal); N18.6 End stage renal disease; D59.3 Hemolytic-uremic syndrome; I12.0 Hypertensive chronic kidney disease with stage 5 chronic kidney disease or end stage renal disease; N04.9 Nephrotic syndrome with unspecified morphologic changes; Y81.2 Prosthetic and other implants, materials and accessory general- and plastic-surgery devices associated with adverse incidents; D69.6 Thrombocytopenia, unspecified; Z99.2 Dependence on renal dialysis; I44.0 Atrioventricular block, first degree; Z90.81 Acquired absence of spleen; Z88.6 Allergy status to analgesic agent; H91.90 Unspecified hearing loss, unspecified ear; D63.1 Anemia in chronic kidney disease

== ENCOUNTER 2018-03-02 10:38 | Observation (INO) | payer SELFPAY ==
[2018-03-02 10:38] VITALS: BMI 28.0
--- NOTE | 2018-03-02 11:33 | C.PDOC ---
History Of Present Illness 32 y/o male with history of Atypical HUS currently on Dialysis (T,TH, SAT) sent from [facility] [place] for low platelets noted in labs done 2 days ago. Patient last dialysis was 02/28/18 where he had labs done, reports he received a call from clinic last night to come to ED immediately for platelet transfusion because his platelet counts were very low. At ED patient denies any pain, weakness or any other physical complaint at this time. Time Seen by Provider: 03/02/18 11:06 Chief Complaint (Nursing): Abnormal Labs History Per: Patient History/Exam Limitations: no limitations Onset/Duration Of Symptoms: Days Current Symptoms Are (Timing): Still Present Past Medical History Reviewed: Historical Data, Nursing Documentation, Vital Signs Vital Signs: Last Vital Signs Temp 97.7 F 03/02/18 15:55 Pulse 56 L 03/02/18 15:55 Resp 16 03/02/18 15:55 BP 150/104 H 03/02/18 17:25 Pulse Ox 100 03/02/18 15:55 - Medical History PMH: HTN, End Stage Renal Disease (PERITONEAL DIALYSIS), Chronic Kidney Disease Surgical History: No Surg Hx - [facility] Procedures (02/07/18) EXCISION OF LEFT KIDNEY, PERCUTANEOUS APPROACH, DIAGNOSTIC (09/28/16) EXTRACTION OF ILIAC BONE MARROW, PERC APPROACH, DIAGN (09/28/16) FLUOROSCOPY OF SUPERIOR VENA CAVA, GUIDANCE (03/15/17) INJECT/INFUSE NEC (12/01/14) INSERT INFUSION DEV IN R INT JUGULAR VEIN, PERC (12/17/17) INSERT OF INFUSION DEV INTO PERITON CAV, PERC ENDO APPROACH (05/25/17) INSERTION OF INFUSION DEV INTO INF VENA CAVA, PERC APPROACH (12/17/17) INSERTION OF INFUSION DEV INTO SUP VENA CAVA, PERC APPROACH (03/15/17) IRRIGATION OF PERITON CAV USING DIALYSATE, PERC APPROACH (05/25/17) OCCLUSION OF L RENAL ART WITH INTRALUM DEV, PERC APPROACH (09/28/16) PERFORMANCE OF URINARY FILTRATION, MULTIPLE (03/15/17) PERFORMANCE OF URINARY FILTRATION, SINGLE (05/28/17) PHERESIS OF PLASMA, MULTIPLE (09/28/16) PHERESIS OF PLATELETS, MULTIPLE (12/17/17) REMOVAL OF INFUSION DEVICE FROM PERITON CAV, OPEN APPROACH (02/07/18) TRANSFUSE NONAUT FROZEN PLASMA IN PERIPH VEIN, PERC (09/28/16) TRANSFUSE NONAUT PLATELETS IN PERIPH VEIN, PERC (02/07/18) TRANSFUSE NONAUT RED BLOOD CELLS IN PERIPH VEIN, PERC (09/28/16) ULTRASONOGRAPHY OF INFERIOR VENA CAVA, GUIDANCE (12/17/17) ULTRASONOGRAPHY OF LEFT KIDNEY (09/28/16) Family History: States: No Known Family Hx - Social History Hx Alcohol Use: No Hx Substance Use: No - Immunization History Hx Tetanus Toxoid Vaccination: No Hx Influenza Vaccination: No Hx Pneumococcal Vaccination: No Review Of Systems Constitutional: Negative for: Fever, Chills Cardiovascular: Negative for: Chest Pain Respiratory: Negative for: Shortness of Breath Skin: Negative for: Rash Neurological: Negative for: Weakness, Numbness Physical Exam - Physical Exam Appears: Non-toxic, No Acute Distress Skin: Warm, Dry, No Rash Head: Atraumatic, Normacephalic Eye(s): bilateral: Normal Inspection Oral Mucosa: Moist Neck: Normal ROM, Supple Chest: Other (AV fistula to Right upper chest wall ) Cardiovascular: Rhythm Regular Respiratory: Normal Breath Sounds, No Rales, No Rhonchi, No Wheezing Gastrointestinal/Abdominal: Soft, No Tenderness, No Guarding, No Rebound Extremity: Normal ROM, Capillary Refill (<2 seconds) Neurological/Psych: Oriented x3, Normal Speech, Normal Cognition ED Course And Treatment - Laboratory Results Result Diagrams: 03/02/18 11:56 03/02/18 11:56 O2 Sat by Pulse Oximetry: 97 (RA) Pulse Ox Interpretation: Normal Progress Note: Blood work. Platelets are 6. Spoke with pt's windlasser who sts its patient's baseline, requetsed to cancel Platelets transfusion. Spoke with pt's Renal tesm, HD will be done to day at the hospital. Spoke with Hospitalist who accepted patient for observation and HD. Disposition - Disposition Disposition: HOSPITALIZED Disposition Time: 15:03 Condition: GOOD - Clinical Impression Clinical Impression: ESRD on hemodialysis, Thrombocytopenia, Hemolytic uremic syndrome - PA / [employer] / Resident Statement MD/DO has reviewed & agrees with the documentation as recorded. - Scribe Statement The provider has reviewed the documentation as recorded by the Bostonibwil Fernandez All medical record entries made by the Shanika were at my direction and personally dictated by me. I have reviewed the chart and agree that the record accurately reflects my personal performance of the history, physical exam, medical decision making, and the department course for this patient. I have also personally directed, reviewed, and agree with the discharge instructions and disposition.
[2018-03-02 12:01] LABS: BASO # 0.1 K/uL (0.0-0.2); EOS # 1.5 K/uL (0.0-0.7); HEMOGLOBIN 12.1 g/dL (12.0-18.0); MEAN CORPUSCULAR HEMOGLOBIN 30.3 pg (27.0-31.0)
[2018-03-02 12:05] LABS: BASO % 0.8 % (0.0-2.0); EOS % 14.6 % (0.0-4.0); LYMPH # 3.4 K/uL (1.0-4.3); MEAN CELL VOLUME 91.7 fL (80.0-94.0); MONO # 1.4 K/uL (0.0-0.8); NEUT # 3.7 K/uL (1.8-7.0); NEUT % 36.6 % (50.0-75.0); NRBC % 0.1 % (0.0-2.0); RED CELL DISTRIBUTION WIDTH 15.6 % (11.5-14.5)
[2018-03-02 12:14] LABS: INR 1.1; PROTHROMBIN TIME 12.8 SECONDS (9.7-12.2)
[2018-03-02 12:18] LABS: ALB/GLOB RATIO 1.4 (1.0-2.1); ALBUMIN 4.5 g/dL (3.5-5.0); CALCIUM 9.2 mg/dl (8.6-10.4)
--- NOTE | 2018-03-02 15:42 | CP.PCM.HP ---
<Germania Griffith - Last Filed: 03/02/18 15:42> History of Present Illness - History of Present Illness History of Present Illness: CC: "I was sent from dialysis center because my counts were low" 32M with a PMH of HTN, CKD, ESRD (HD Tues, Thurs, Sat), known atypical HUS and thrombocytopenia who presented to the ED after being sent here from his dialysis center. Apparently his platelets were low and the dialysis center would not do his normally scheduled dialysis due to this. Patient's low platelet counts are low due to his atypical HUS and he is being treated with regular follow up outpatient. The patient has no complaints today. Due to hospital policy the patient will be admitted for dialysis and will be sent home. Per (oncology) no intervention is needed at this time. PMH: HTN, CKD, ESRD, known typical HUS, thrombocytopenia Surg Hx: PD cath placed 05/2017, renal biopsy 03/2017, right chest permacath placed 03/2017, splenectomy at 4 y/o FMH: Denies Meds: Clonidine 0.2mg PMD: [facility] Allergies: Aspirin - Rash, nausea Nephrology: Dr. Villasenor Vascular: Dr. Quach Heme-Onc: Dr. Benites Present on Admission - Present on Admission Any Indicators Present on Admission: No Review of Systems - Constitutional Constitutional: absent: Chills, Fever - EENT Eyes: absent: Blurred Vision, Change in Vision - Cardiovascular Cardiovascular: absent: Chest Pain, Chest Pain at Rest, Leg Edema, Palpitations - Respiratory Respiratory: absent: Cough, Dyspnea, Dyspnea on Exertion - Gastrointestinal Gastrointestinal: absent: Abdominal Pain, Constipation, Diarrhea, Nausea, Vomiting - Genitourinary Genitourinary: absent: Change in Urinary Stream, Difficulty Urinating - Neurological Neurological: absent: Dizziness, Weakness - Hematologic/Lymphatic Hematologic: absent: Easy Bleeding, Easy Bruising Past Patient History - Infectious Disease Hx of Infectious Diseases: None - Past Medical History & Family History Past Medical History?: Yes - Past Social History Smoking Status: Never Smoked - CARDIAC Hx Hypertension: Yes - PULMONARY Hx Respiratory Disorders: No - NEUROLOGICAL Hx Neurological Disorder: No - HEENT Hx HEENT Problems: Yes Hx Deafness: (LEFT HEARING AID) Other/Comment: HEARING IMPAIRED - RENAL Hx Chronic Kidney Disease: Yes - ENDOCRINE/METABOLIC Hx Endocrine Disorders: No - HEMATOLOGICAL/ONCOLOGICAL Hx Blood Disorders: Yes Other/Comment: Thrombocytopenia - INTEGUMENTARY Hx Dermatological Problems: No - MUSCULOSKELETAL/RHEUMATOLOGICAL Hx Musculoskeletal Disorders: No - GASTROINTESTINAL Hx Gastrointestinal Disorders: No - GENITOURINARY/GYNECOLOGICAL Hx Genitourinary Disorders: No - PSYCHIATRIC Hx Substance Use: No - SURGICAL HISTORY Hx Surgeries: Yes Other/Comment: peritoneal dialysis catheter 05/2017. right chest wall permacath - ANESTHESIA Hx Anesthesia: Yes Hx Anesthesia Reactions: No Hx Malignant Hyperthermia: No Meds Allergies/Adverse Reactions: Allergies Allergy/AdvReac Type Severity Reaction Status Date / Time aspirin AdvReac ANAPHYLAXIS Verified 03/02/18 11:02 Physical Exam - Constitutional Appears: Non-toxic, No Acute Distress - Head Exam Head Exam: ATRAUMATIC, NORMAL INSPECTION - Eye Exam Eye Exam: EOMI Pupil Exam: NORMAL ACCOMODATION - ENT Exam ENT Exam: Mucous Membranes Moist - Respiratory Exam Respiratory Exam: Clear to Auscultation Bilateral, NORMAL BREATHING PATTERN. absent: Respiratory Distress - Cardiovascular Exam Cardiovascular Exam: REGULAR RHYTHM, +S1, +S2 - GI/Abdominal Exam GI & Abdominal Exam: Normal Bowel Sounds, Soft. absent: Distended, Firm, Guarding, Tenderness - Extremities Exam Extremities exam: Positive for: normal inspection - Back Exam Back exam: NORMAL INSPECTION - Neurological Exam Neurological exam: Alert, CN II-XII Intact, Normal Gait, Oriented x3 - Psychiatric Exam Psychiatric exam: Normal Affect, Normal Mood Results - Vital Signs Recent Vital Signs: Last Vital Signs Temp 98.1 F 03/02/18 10:58 Pulse 56 L 03/02/18 14:14 Resp 16 03/02/18 14:14 BP 136/117 H 03/02/18 14:14 Pulse Ox 97 03/02/18 15:04 - Labs Result Diagrams: 03/02/18 11:56 03/02/18 11:56 Labs: Laboratory Results - last 24 hr 03/02/18 03/02/18 03/02/18 11:56 11:56 11:56 WBC 10.0 RBC 4.00 L Hgb 12.1 Hct 36.7 MCV 91.7 MCH 30.3 MCHC 33.0 RDW 15.6 H Plt Count 6 L* MPV 11.0 Neut % (Auto) 36.6 L Lymph % (Auto) 34.0 [place] % (Auto) 14.0 H Eos % (Auto) 14.6 H Baso % (Auto) 0.8 Neut # (Auto) 3.7 Lymph # (Auto) 3.4 [place] # (Auto) 1.4 H Eos # (Auto) 1.5 H Baso # (Auto) 0.1 Differential Comment PT 12.8 H INR 1.1 APTT 32 Sodium 143 Potassium 4.6 Chloride 103 Carbon Dioxide 22 Anion Gap 22 H BUN 32 H Creatinine 6.3 H Est GFR ( Amer) 12 Est GFR (Non-Af Amer) 10 Random Glucose 100 Calcium 9.2 Total Bilirubin 0.6 AST 37 ALT 36 Alkaline Phosphatase 126 Total Protein 7.7 Albumin 4.5 Globulin 3.2 Albumin/Globulin Ratio 1.4 Blood Type Antibody Screen 03/02/18 11:56 WBC RBC Hgb Hct MCV MCH MCHC RDW Plt Count MPV Neut % (Auto) Lymph % (Auto) [place] % (Auto) Eos % (Auto) Baso % (Auto) Neut # (Auto) Lymph # (Auto) [place] # (Auto) Eos # (Auto) Baso # (Auto) Differential Comment PT INR APTT Sodium Potassium Chloride Carbon Dioxide Anion Gap BUN Creatinine Est GFR ( Amer) Est GFR (Non-Af Amer) Random Glucose Calcium Total Bilirubin AST ALT Alkaline Phosphatase Total Protein Albumin Globulin Albumin/Globulin Ratio Blood Type O POSITIVE Antibody Screen Negative Assessment & Plan - Assessment and Plan (Free Text) Assessment: 32M with a PMH of HTN, CKD, ESRD (HD , , Tue), known atypical HUS and thrombocytopenia who presented to the ED after being sent here from his dialysis center. Apparently his platelets were low and the dialysis center would not do his normally scheduled dialysis due to this. Patient's low platelet counts are low due to his atypical HUS and he is being treated with regular follow up outpatient. The patient has no complaints today. Due to hospital policy the patient will be admitted for dialysis and will be sent home. Per (oncology) no intervention is needed at this time. Nephrology (Dr. Hoffman) was consulted for dialysis orders. Will place DC order for after dialysis. <Kyle Valle - Last Filed: 03/02/18 20:45> Results - Vital Signs Recent Vital Signs: Last Vital Signs Temp 97.7 F 03/02/18 18:55 Pulse 56 L 03/02/18 18:55 Resp 16 03/02/18 18:55 BP 131/104 H 03/02/18 18:55 Pulse Ox 100 03/02/18 18:55 - Labs Result Diagrams: 03/02/18 11:56 03/02/18 11:56 Labs: Laboratory Results - last 24 hr 03/02/18 03/02/18 03/02/18 11:56 11:56 11:56 WBC 10.0 RBC 4.00 L Hgb 12.1 Hct 36.7 MCV 91.7 MCH 30.3 MCHC 33.0 RDW 15.6 H Plt Count 6 L* MPV 11.0 Neut % (Auto) 36.6 L Lymph % (Auto) 34.0 [place] % (Auto) 14.0 H Eos % (Auto) 14.6 H Baso % (Auto) 0.8 Neut # (Auto) 3.7 Lymph # (Auto) 3.4 [place] # (Auto) 1.4 H Eos # (Auto) 1.5 H Baso # (Auto) 0.1 Differential Comment PT 12.8 H INR 1.1 APTT 32 Sodium 143 Potassium 4.6 Chloride 103 Carbon Dioxide 22 Anion Gap 22 H BUN 32 H Creatinine 6.3 H Est GFR ( Amer) 12 Est GFR (Non-Af Amer) 10 Random Glucose 100 Calcium 9.2 Total Bilirubin 0.6 AST 37 ALT 36 Alkaline Phosphatase 126 Total Protein 7.7 Albumin 4.5 Globulin 3.2 Albumin/Globulin Ratio 1.4 Blood Type Antibody Screen 03/02/18 11:56 WBC RBC Hgb Hct MCV MCH MCHC RDW Plt Count MPV Neut % (Auto) Lymph % (Auto) [place] % (Auto) Eos % (Auto) Baso % (Auto) Neut # (Auto) Lymph # (Auto) [place] # (Auto) Eos # (Auto) Baso # (Auto) Differential Comment PT INR APTT Sodium Potassium Chloride Carbon Dioxide Anion Gap BUN Creatinine Est GFR ( Amer) Est GFR (Non-Af Amer) Random Glucose Calcium Total Bilirubin AST ALT Alkaline Phosphatase Total Protein Albumin Globulin Albumin/Globulin Ratio Blood Type O POSITIVE Antibody Screen Negative Attending/Attestation - Attestation I have personally seen and examined this patient.: Yes I have fully participated in the care of the patient.: Yes I have reviewed all pertinent clinical information: Yes Notes (Text): 03/02/18 20:39 Exam, assessment and plan were gone over with the resident. Spoke with Local [employer] Truck Driver Dr. Marcella Benites and explained that the patient was sent to the ER because of platelet of 5 at dialysis center. He and discussed that this patient was sent to ER by [facility] HD center because of the low platelets and therefore would not give him HD despite him already having been at this HD center for HD without any issues since his discharge from this hospital on . He stated that the HD could continue. Spoke with Drywall Worker Dr. Hoffman and explained this to her and she would like patient to receive HD at our HD center and then ok to discharge patient. ER wanted patient to admit to medicine service as I was informed that they could not have an ER patient receive HD without first being admitted to the hospital. This is apparently ER policy at this institution. Therefore admission order and discharge order for this patient was placed at the same time. Kyle Valle D.O.
--- NOTE | 2018-03-02 15:49 | CP.PCM.DIS ---
Provider - Provider Date of Admission: 03/02/18 15:01 Attending physician: Kyle Valle MD Primary care physician: Dr. Wilkins [facility] Consults: Dr. Hoffman - nephrology Time Spent in preparation of Discharge (in minutes): 35 Diagnosis - Discharge Diagnosis (1) ESRD on hemodialysis Status: Acute (2) Hemolytic uremic syndrome Status: Acute Hospital Course - Lab Results Lab Results: Most Recent Lab Values WBC 10.0 K/uL (4.8-10.8) 03/02/18 11:56 RBC 4.00 Mil/uL (4.40-5.90) L 03/02/18 11:56 Hgb 12.1 g/dL (12.0-18.0) 03/02/18 11:56 Hct 36.7 % (35.0-51.0) 03/02/18 11:56 MCV 91.7 fL (80.0-94.0) 03/02/18 11:56 MCH 30.3 pg (27.0-31.0) 03/02/18 11:56 MCHC 33.0 g/dL (33.0-37.0) 03/02/18 11:56 RDW 15.6 % (11.5-14.5) H 03/02/18 11:56 Plt Count 6 K/uL (130-400) L* 03/02/18 11:56 MPV 11.0 fL (7.2-11.7) 03/02/18 11:56 Neut % (Auto) 36.6 % (50.0-75.0) L 03/02/18 11:56 Lymph % (Auto) 34.0 % (20.0-40.0) 03/02/18 11:56 [place] % (Auto) 14.0 % (0.0-10.0) H 03/02/18 11:56 Eos % (Auto) 14.6 % (0.0-4.0) H 03/02/18 11:56 Baso % (Auto) 0.8 % (0.0-2.0) 03/02/18 11:56 Neut # (Auto) 3.7 K/uL (1.8-7.0) 03/02/18 11:56 Lymph # (Auto) 3.4 K/uL (1.0-4.3) 03/02/18 11:56 [place] # (Auto) 1.4 K/uL (0.0-0.8) H 03/02/18 11:56 Eos # (Auto) 1.5 K/uL (0.0-0.7) H 03/02/18 11:56 Baso # (Auto) 0.1 K/uL (0.0-0.2) 03/02/18 11:56 Differential Comment 03/02/18 11:56 PT 12.8 SECONDS (9.7-12.2) H 03/02/18 11:56 INR 1.1 03/02/18 11:56 APTT 32 SECONDS (21-34) 03/02/18 11:56 Sodium 143 mmol/L (132-148) 03/02/18 11:56 Potassium 4.6 mmol/L (3.6-5.2) 03/02/18 11:56 Chloride 103 mmol/L (98-107) 03/02/18 11:56 Carbon Dioxide 22 mmol/L (22-30) 03/02/18 11:56 Anion Gap 22 (10-20) H 03/02/18 11:56 BUN 32 mg/dL (9-20) H 03/02/18 11:56 Creatinine 6.3 mg/dL (0.8-1.5) H 03/02/18 11:56 Est GFR ( Amer) 12 03/02/18 11:56 Est GFR (Non-Af Amer) 10 03/02/18 11:56 Random Glucose 100 mg/dL (75-110) 03/02/18 11:56 Calcium 9.2 mg/dl (8.6-10.4) 03/02/18 11:56 Total Bilirubin 0.6 mg/dL (0.2-1.3) 03/02/18 11:56 AST 37 U/L (17-59) 03/02/18 11:56 ALT 36 U/L (21-72) 03/02/18 11:56 Alkaline Phosphatase 126 U/L (38-126) 03/02/18 11:56 Total Protein 7.7 g/dL (6.3-8.3) 03/02/18 11:56 Albumin 4.5 g/dL (3.5-5.0) 03/02/18 11:56 Globulin 3.2 gm/dL (2.2-3.9) 03/02/18 11:56 Albumin/Globulin Ratio 1.4 (1.0-2.1) 03/02/18 11:56 Blood Type O POSITIVE 03/02/18 11:56 Antibody Screen Negative 03/02/18 11:56 - Hospital Course Hospital Course: PMH: HTN, CKD, ESRD, known typical HUS, thrombocytopenia Surg Hx: PD cath placed 05/2017, renal biopsy 03/2017, right chest permacath placed 03/2017, splenectomy at 4 y/o FMH: Denies Meds: Clonidine 0.2mg PMD: [facility] Allergies: Aspirin - Rash, nausea Nephrology: Dr. Villasenor Vascular: Dr. Quach Heme-Onc: Dr. Benites 32M with a PMH of HTN, CKD, ESRD (HD , , Tue), known atypical HUS and thrombocytopenia who presented to the ED after being sent here from his dialysis center. Apparently his platelets were low and the dialysis center would not do his normally scheduled dialysis due to this. Patient's low platelet counts are low due to his atypical HUS and he is being treated with regular follow up outpatient. The patient has no complaints today. Patient had dialysis and was sent home. Discharge Exam - Head Exam Head Exam: ATRAUMATIC, NORMAL INSPECTION - Eye Exam Eye Exam: EOMI Pupil Exam: NORMAL ACCOMODATION - Respiratory Exam Respiratory Exam: Clear to PA & Lateral, NORMAL BREATHING PATTERN - Cardiovascular Exam Cardiovascular Exam: REGULAR RHYTHM, +S1, +S2 - GI/Abdominal Exam GI & Abdominal Exam: Normal Bowel Sounds, Soft. absent: Distended, Firm, Guarding, Tenderness - Extremities Exam Extremities exam: normal inspection - Back Exam Back exam: NORMAL INSPECTION - Neurological Exam Neurological exam: Alert, CN II-XII Intact, Oriented x3 - Psychiatric Exam Psychiatric exam: Normal Affect, Normal Mood Discharge Plan - Follow Up Plan Condition: GOOD Disposition: HOME/ ROUTINE Additional Instructions: Patient is stable for discharge after dialysis. Continue home medications. Follow up [facility] and with Dr. Benites. Continue dialysis T//Tue. Referrals: [facility] [Outside]
[2018-03-02 20:42] VITALS: BP 121/87; PULSE 69; RESP 20; TEMP 97.9; O2SAT 98
== END 2018-03-02 21:35 | disposition home or self-care (01) ==
LOC: C.ER 10:38 → C.9E 15:01 → C.3T 18:36
PROVIDERS: ADMIT Family Medicine; ATTEND Family Medicine
DX: D59.3 Hemolytic-uremic syndrome (principal); D69.6 Thrombocytopenia, unspecified; H91.92 Unspecified hearing loss, left ear; I12.0 Hypertensive chronic kidney disease with stage 5 chronic kidney disease or end stage renal disease; N18.6 End stage renal disease; Z90.81 Acquired absence of spleen; Z99.2 Dependence on renal dialysis; Z88.6 Allergy status to analgesic agent; Z87.892 Personal history of anaphylaxis
CPT/HCPCS: 80053; 85025; 85610; 85730; 86850; 86900; 99282; G0257; G0378

== ENCOUNTER 2018-03-29 00:33 | Emergency (ER) | payer OTHER ==
[2018-03-29 00:33] VITALS: BMI 28.0
--- NOTE | 2018-03-29 01:47 | C.PDOC ---
History Of Present Illness 32 year old male with PMHx of ESRD currently on renal dialysis presents to the ED c/o frontal headache and vomiting. Patient reports he went to dialysis today and usually has a headache after that last for 4 hours ad resolves with Tylenol. Patient reports today headache persisted which prompted the visit to the ED. Patient denies abdominal pian, dizziness, blurry vision, weakness, numbness. Time Seen by Provider: 03/29/18 01:28 Chief Complaint (Nursing): Headache History Per: Patient History/Exam Limitations: no limitations Onset/Duration Of Symptoms: Days Current Symptoms Are (Timing): Still Present Quality: "Pain" Preceeding Symptoms: None Recent travel outside of the [place]: No Additional History Per: Patient Past Medical History Reviewed: Historical Data, Nursing Documentation, Vital Signs Vital Signs: Last Vital Signs Temp 97.9 F 03/29/18 04:48 Pulse 58 L 03/29/18 04:48 Resp 16 03/29/18 04:48 BP 130/85 03/29/18 04:48 Pulse Ox 100 03/29/18 04:48 - Medical History PMH: HTN, End Stage Renal Disease (PERITONEAL DIALYSIS), Chronic Kidney Disease Surgical History: No Surg Hx - [facility] Procedures (02/07/18) EXCISION OF LEFT KIDNEY, PERCUTANEOUS APPROACH, DIAGNOSTIC (09/28/16) EXTRACTION OF ILIAC BONE MARROW, PERC APPROACH, DIAGN (09/28/16) FLUOROSCOPY OF SUPERIOR VENA CAVA, GUIDANCE (03/15/17) INJECT/INFUSE NEC (12/01/14) INSERT INFUSION DEV IN R INT JUGULAR VEIN, PERC (12/17/17) INSERT OF INFUSION DEV INTO PERITON CAV, PERC ENDO APPROACH (05/25/17) INSERTION OF INFUSION DEV INTO INF VENA CAVA, PERC APPROACH (12/17/17) INSERTION OF INFUSION DEV INTO SUP VENA CAVA, PERC APPROACH (03/15/17) IRRIGATION OF PERITON CAV USING DIALYSATE, PERC APPROACH (05/25/17) OCCLUSION OF L RENAL ART WITH INTRALUM DEV, PERC APPROACH (09/28/16) PERFORMANCE OF URINARY FILTRATION, MULTIPLE (03/15/17) PERFORMANCE OF URINARY FILTRATION, SINGLE (05/28/17) PHERESIS OF PLASMA, MULTIPLE (09/28/16) PHERESIS OF PLATELETS, MULTIPLE (12/17/17) REMOVAL OF INFUSION DEVICE FROM PERITON CAV, OPEN APPROACH (02/07/18) TRANSFUSE NONAUT FROZEN PLASMA IN PERIPH VEIN, PERC (09/28/16) TRANSFUSE NONAUT PLATELETS IN PERIPH VEIN, PERC (02/07/18) TRANSFUSE NONAUT RED BLOOD CELLS IN PERIPH VEIN, PERC (09/28/16) ULTRASONOGRAPHY OF INFERIOR VENA CAVA, GUIDANCE (12/17/17) ULTRASONOGRAPHY OF LEFT KIDNEY (09/28/16) Family History: States: Unknown Family Hx - Social History Hx Alcohol Use: No Hx Substance Use: No - Immunization History Hx Tetanus Toxoid Vaccination: No Hx Influenza Vaccination: No Hx Pneumococcal Vaccination: No Review Of Systems Constitutional: Negative for: Fever, Chills Eyes: Negative for: Vision Change Cardiovascular: Negative for: Chest Pain Respiratory: Negative for: Shortness of Breath Gastrointestinal: Negative for: Abdominal Pain Musculoskeletal: Negative for: Back Pain Skin: Negative for: Rash Neurological: Positive for: Headache. Negative for: Weakness, Numbness, Dizziness Physical Exam - Physical Exam Appears: Non-toxic, No Acute Distress Skin: Normal Color, Warm, Dry Head: Atraumatic, Normacephalic Eye(s): bilateral: Normal Inspection, PERRL, EOMI Ear(s): Bilateral: Normal Nose: No Discharge Oral Mucosa: Moist Neck: Normal ROM, Supple Chest: Symmetrical Cardiovascular: Rhythm Regular, No Murmur Respiratory: Normal Breath Sounds, No Rales, No Rhonchi, No Wheezing Gastrointestinal/Abdominal: Soft, No Tenderness, No Guarding, No Rebound Extremity: Normal ROM, No Tenderness, No Swelling Neurological/Psych: Oriented x3, Normal Speech, Normal Cognition, Normal Motor, Normal Sensation Gait: Steady ED Course And Treatment - Laboratory Results Result Diagrams: 03/29/18 02:06 03/29/18 02:06 O2 Sat by Pulse Oximetry: 95 (ON RA) Pulse Ox Interpretation: Normal Progress Note: Plan: - Reglan 10 mg IVP. - Ultram 50 mg PO. Labs reviewed patient with platelets of 6. spoke with Dr. Guaman who knows the patient and states platelets of 6 are usually patient's baseline. Dr. Guaman advised to consult Dr. Benites for recommendation. 03:15- Dr. Benites paged. [phone]: spoke with Dr Nas Benites - pt's biochemical engineer who advised that pt is at baseline and no need for platelet transfusion at this time. he further advised that pt follow up with him at center .Pt understand and agreed with plan Disposition - Disposition Referrals: Nas Benites MD [Staff Provider] - Gustavo Villasenor MD [Primary Care Provider] - Disposition: HOME/ ROUTINE Disposition Time: 05:19 Condition: GOOD Additional Instructions: Please follow up with PMD and Dr Benites in office Return to ER if easily bruised or bleeding,bruising or worse Instructions: Headache, Adult (DC) Forms: [employer] (Lao) - Clinical Impression Clinical Impression: Headache, Thrombocytopenia, ESRD (end stage renal disease) on dialysis - PA / WAREHOUSE SHIPPING ASSOCIATE / Resident Statement MD/DO has reviewed & agrees with the documentation as recorded. - Scribe Statement The provider has reviewed the documentation as recorded by the [employer] All medical record entries made by the [employer] were at my direction and personally dictated by me. I have reviewed the chart and agree that the record accurately reflects my personal performance of the history, physical exam, medical decision making, and the department course for this patient. I have also personally directed, reviewed, and agree with the discharge instructions and disposition.
[2018-03-29 02:23] LABS: BASO # 0.2 K/uL (0.0-0.2); BASO % 2.1 % (0.0-2.0); EOS # 0.4 K/uL (0.0-0.7); EOS % 4.5 % (0.0-4.0); HEMOGLOBIN 12.6 g/dL (12.0-18.0); LYMPH # 1.5 K/uL (1.0-4.3); LYMPH % 15.4 % (20.0-40.0); MEAN CELL VOLUME 90.1 fL (80.0-94.0); MEAN CORPUSCULAR HEMOGLOBIN 30.3 pg (27.0-31.0); MEAN CORPUSCULAR HGB CONC 33.6 g/dL (33.0-37.0); MEAN PLATELET VOLUME 11.2 fL (7.2-11.7); MONO # 1.3 K/uL (0.0-0.8); MONO % 12.5 % (0.0-10.0); NEUT # 6.5 K/uL (1.8-7.0); NEUT % 65.5 % (50.0-75.0); NRBC % 0.1 % (0.0-2.0); RBC 4.15 Mil/uL (4.40-5.90); RED CELL DISTRIBUTION WIDTH 14.7 % (11.5-14.5)
[2018-03-29 02:43] LABS: ALB/GLOB RATIO 1.2 (1.0-2.1); ALBUMIN 4.2 g/dL (3.5-5.0); CALCIUM 9.2 mg/dl (8.6-10.4)
[2018-03-29 03:09] VITALS: PULSE 58
[2018-03-29 04:48] VITALS: BP 130/85; RESP 16; TEMP 97.9
[2018-03-29 05:42] VITALS: O2SAT 95
== END 2018-03-29 05:24 | disposition home or self-care (01) ==
LOC: C.ER 00:33 → SUPCPDRO 00:33 → C.ER 05:24
DX: I12.0 Hypertensive chronic kidney disease with stage 5 chronic kidney disease or end stage renal disease (principal); N18.6 End stage renal disease; Z99.2 Dependence on renal dialysis; R51 Headache; D69.6 Thrombocytopenia, unspecified
CPT/HCPCS: 36415; 80053; 85025; 99285; J2765

== ENCOUNTER 2018-04-04 06:11 | Inpatient (IN) | payer MEDICAID, OTHER ==
[2018-04-04 06:11] VITALS: BMI 28.0
[2018-04-04 07:02] LABS: BASO # 0.2 K/uL (0.0-0.2); BASO % 0.7 % (0.0-2.0); EOS # 0.6 K/uL (0.0-0.7); EOS % 2.6 % (0.0-4.0); HEMOGLOBIN 12.7 g/dL (12.0-18.0); LYMPH # 1.9 K/uL (1.0-4.3); LYMPH % 7.6 % (20.0-40.0); MEAN CELL VOLUME 91.7 fL (80.0-94.0); MEAN CORPUSCULAR HEMOGLOBIN 30.6 pg (27.0-31.0); MEAN CORPUSCULAR HGB CONC 33.4 g/dL (33.0-37.0); MEAN PLATELET VOLUME 11.7 fL (7.2-11.7); MONO % 12.1 % (0.0-10.0); NEUT # 19.3 K/uL (1.8-7.0); RBC 4.15 Mil/uL (4.40-5.90); RED CELL DISTRIBUTION WIDTH 14.9 % (11.5-14.5); WHITE BLOOD COUNT 25.1 K/uL (4.8-10.8)
[2018-04-04 07:03] LABS: VENOUS BLOOD GAS PCO2 24 mmHg (40-60); VENOUS BLOOD GAS PO2 31 mm/Hg (30-55); VENOUS BLOOD PH 7.44 (7.32-7.43)
[2018-04-04 07:09] LABS: INR 1.2; PROTHROMBIN TIME 13.4 SECONDS (9.7-12.2)
[2018-04-04 07:16] LABS: ALB/GLOB RATIO 1.4 (1.0-2.1); ALBUMIN 4.4 g/dL (3.5-5.0); CALCIUM 9.7 mg/dl (8.6-10.4)
--- NOTE | 2018-04-04 07:16 | C.PDOC ---
History Of Present Illness VIA TRANS CO NEW ONSET FEVER SICNE YEST, PERSIST MI AND GEN MYALGIA X 4 DAYS. SEEN 03/29 FOR POST HD MI, SINCE THEN W PERSIST MI. LAST HD 03/30, "I WAS STILL FEELING BAD SO I DIDN'T GO ON 04/01". +YELLOW DC FROM SKIN AREA OF PORTACATH, PLACED 12/2017. PS HAD NOTIFIED [facility] ABOUT DC BUT "THEY SAID IT WAS FINE". NO SOB. CHRONIC PLT = 6. PMH: HTN, CKD, ESRD, known typical HUS, thrombocytopenia Surg Hx: PD cath placed 05/2017, renal biopsy 03/2017, right chest permacath placed 03/2017, splenectomy at 4 y/o FMH: Denies Meds: Clonidine 0.2mg PMD: [facility] Nephrology: Dr. Villasenor Vascular: Dr. Quach Heme-Onc: Dr. Benites 32M with a PMH of HTN, CKD, ESRD (HD Tues, Th, Sat), known atypical HUS and thrombocytopenia Patient's low platelet counts are low due to his atypical HUS and he is being treated with regular follow up outpatient. The patient has no complaints today. Patient had dialysis and was sent home. EXAM MOD DIST MILD TOX HEENT NO PHOTOPHOBIA; NO NUCHAL RIGIDITY, SUPPLE LUNGS CTA BL NO W/R/R CV RRR SKIN NO RASH NO EDEMA ABD SOFT NT ND NO R/G REMAINDER NEG Time Seen by Provider: 04/04/18 07:13 Chief Complaint (Nursing): Headache History Per: Patient History/Exam Limitations: no limitations Onset/Duration Of Symptoms: Persistent Current Symptoms Are (Timing): Still Present Location Of Pain: Diffuse Myalgias, Headache Associated Symptoms: Fever Past Medical History Reviewed: Historical Data, Nursing Documentation, Vital Signs Vital Signs: Last Vital Signs Temp 100.4 F H 04/04/18 08:30 Pulse 106 H 04/04/18 08:30 Resp 20 04/04/18 08:30 BP 118/68 04/04/18 08:30 Pulse Ox 99 04/04/18 10:11 - Medical History PMH: HTN, End Stage Renal Disease (PERITONEAL DIALYSIS), Chronic Kidney Disease Surgical History: No Surg Hx - [facility] Procedures (02/07/18) EXCISION OF LEFT KIDNEY, PERCUTANEOUS APPROACH, DIAGNOSTIC (09/28/16) EXTRACTION OF ILIAC BONE MARROW, PERC APPROACH, DIAGN (09/28/16) FLUOROSCOPY OF SUPERIOR VENA CAVA, GUIDANCE (03/15/17) INJECT/INFUSE NEC (12/01/14) INSERT INFUSION DEV IN R INT JUGULAR VEIN, PERC (12/17/17) INSERT OF INFUSION DEV INTO PERITON CAV, PERC ENDO APPROACH (05/25/17) INSERTION OF INFUSION DEV INTO INF VENA CAVA, PERC APPROACH (12/17/17) INSERTION OF INFUSION DEV INTO SUP VENA CAVA, PERC APPROACH (03/15/17) IRRIGATION OF PERITON CAV USING DIALYSATE, PERC APPROACH (05/25/17) OCCLUSION OF L RENAL ART WITH INTRALUM DEV, PERC APPROACH (09/28/16) PERFORMANCE OF URINARY FILTRATION, MULTIPLE (03/15/17) PERFORMANCE OF URINARY FILTRATION, SINGLE (05/28/17) PHERESIS OF PLASMA, MULTIPLE (09/28/16) PHERESIS OF PLATELETS, MULTIPLE (12/17/17) REMOVAL OF INFUSION DEVICE FROM PERITON CAV, OPEN APPROACH (02/07/18) TRANSFUSE NONAUT FROZEN PLASMA IN PERIPH VEIN, PERC (09/28/16) TRANSFUSE NONAUT PLATELETS IN PERIPH VEIN, PERC (02/07/18) TRANSFUSE NONAUT RED BLOOD CELLS IN PERIPH VEIN, PERC (09/28/16) ULTRASONOGRAPHY OF INFERIOR VENA CAVA, GUIDANCE (12/17/17) ULTRASONOGRAPHY OF LEFT KIDNEY (09/28/16) Family History: States: Unknown Family Hx - Social History Hx Alcohol Use: No Hx Substance Use: No - Immunization History Hx Tetanus Toxoid Vaccination: No Hx Influenza Vaccination: No Hx Pneumococcal Vaccination: No Review Of Systems Except As Marked, All Systems Reviewed And Found Negative. Constitutional: Positive for: Fever, Malaise (generalized) Cardiovascular: Negative for: Chest Pain Respiratory: Negative for: Shortness of Breath Gastrointestinal: Positive for: Abdominal Pain Neurological: Positive for: Headache. Negative for: Weakness, Numbness Physical Exam - Physical Exam Appears: Toxic (mild), In Acute Distress (moderate distress) Skin: No Rash Head: Atraumatic, Normacephalic, No Tenderness Eye(s): bilateral: Normal Inspection, PERRL, EOMI, Other (no photophobia) Oral Mucosa: Moist Neck: Normal, Supple, Other (no nucchal rigidity) Chest: Symmetrical Cardiovascular: Rhythm Regular Respiratory: Normal Breath Sounds, No Rales, No Rhonchi Gastrointestinal/Abdominal: Normal Exam, Soft, No Tenderness Back: Normal Inspection Extremity: Normal ROM, No Pedal Edema Neurological/Psych: Oriented x3 ED Course And Treatment - Laboratory Results Result Diagrams: 04/04/18 06:59 04/04/18 06:59 ECG: Interpreted By Me ECG Rhythm: Sinus Rhythm ECG Interpretation: Normal Rate From EC O2 Sat by Pulse Oximetry: 99 (RA) Pulse Ox Interpretation: Normal - Radiology CXR: Interpreted by Me CXR Interpretation: Yes: Other (MILD VASC SHERRY) Progress - Re-Evaluation Re-evaluation Note: 04/04/18 08:36 d/w dr villasenor AWARE OF ER FINDINGS WILL CONSULT 04/04/18 09:42 s/p eval by surg resident D/W DR CROCKETT WILL CONSULT. WILL ARRANGE FOR HD VIA CURRENT PERMACATH. SURGERY NOTIFIED D/W DR QUINONES AWARE OF ER FINDINGS WILL ADMIT 04/04/18 10:18 IMPROVED COMPARED TO PRIOR. NEURO INTACT VSS IMPROVED - Data Reviewed Data Reviewed: Lab, Diagnostic imaging, EKG, Old records - Critical Care Citical Care: Excluding Proc Time Critical Care Time: 90 minutes Disposition Counseled Patient/Family Regarding: Studies Performed, Diagnosis - Disposition Disposition: HOSPITALIZED Disposition Time: 10:17 Condition: SERIOUS Forms: [facility] (Algerian) - POA Present On Arrival: [facility] - Clinical Impression Clinical Impression: Thrombocytopenia, ESRD (end stage renal disease) on dialysis, Headache, Fever - Scribe Statement The provider has reviewed the documentation as recorded by the Scribe (Clementine Singh) Provider Attestation: All medical record entries made by the Scribe were at my direction and personally dictated by me. I have reviewed the chart and agree that the record accurately reflects my personal performance of the history, physical exam, medical decision making, and the department course for this patient. I have also personally directed, reviewed, and agree with the discharge instructions and disposition. Decision To Admit - Pt Status Changed To: Hospital Disposition Of: Inpatient - Admit Certification Admit to Inpatient:: After my assessment, the patient will require hospitalization for at least two midnights. This is because of the severity of symptoms shown, intensity of services needed, and/or the medical risk in this patient being treated as an outpatient. - InPatient: Physician Admission Certification:: SEE NOTE - . Bed Request Type: Telemetry Admitting Physician: Odette Quinones Patient Diagnosis: Thrombocytopenia, ESRD (end stage renal disease) on dialysis, Headache, Fever, Hyperkalemia
[2018-04-04 07:25] LABS: PLATELET COUNT 6 K/uL (130-400)
[2018-04-04 08:07] LABS: EOSINOPHIL 1 % (0-4); LYMPHOCYTE 6 % (20-40); MONOCYTE 12 % (0-10); NEUTROPHIL 81 % (50-75); PLATELET ESTIMATE MARKEDLY DECREASED (NORMAL); TOTAL CELLS COUNTED 100
[2018-04-04 08:08] LABS: GIANT PLATELETS PRESENT
[2018-04-04 08:09] LABS: LARGE PLATELETS PRESENT
[2018-04-04] MEDS ORDERED: Piperacillin/Tazobact 3.375 gm 100 ML IV STA (08:13)
[2018-04-04] MEDS ORDERED: Morphine 4 MG/ML VIAL ONE (08:13)
[2018-04-04] MEDS ORDERED: Vancomycin 1 GM 1 GM/250 ML BAG IV SCH (08:15)
[2018-04-04] MEDS ORDERED: Piperacill/Tazo 2.25gm in Dex 2.25 GM/50 ML BAG IVPB STA (09:06)
[2018-04-04] MEDS ORDERED: Calcium Gluconate 4.65 MEQ in Dextrose 5% In Water 100 ML IV STA (09:11)
[2018-04-04] MEDS ORDERED: Calcium Gluconate 4.65 mEq/10 ml Inj ONE (09:53)
--- NOTE | 2018-04-04 09:57 | CP.PCM.CON ---
History of Present Illness - History of Present Illness History of Present Illness: Vascular Surgery Consult Note for Dr. Quach This is a 32M with ESRD, DM, right sided hearing impairment and atypical HUS who is presenting with fevers, abdominal pain, nausea, vomiting dizziness, chest pain and diffuse myalgias. He reports that Whenever he gets dialysis he feels sickly after however for the past two weeks he reports discharge from the skin surrounding his permacath. He reports that he has brought this to the attention of the dialysis clinic however they were not concerned. PMH: See Above PSH: Spenectomy 28 years ago, PD catheter placement and removal ALL: ASA Social: Denies vices Review of Systems - Constitutional Constitutional: Anorexia, Chills, Fatigue, Fever, Headache, Lethargy, Malaise, Weakness - EENT Eyes: absent: Change in Vision Ears: Decreased Hearing - Cardiovascular Cardiovascular: Chest Pain, Diaphoresis - Gastrointestinal Gastrointestinal: Abdominal Pain, Nausea, Vomiting - Musculoskeletal Musculoskeletal: Arthralgias, Myalgias - Integumentary Integumentary: Erythema Past Patient History - Infectious Disease Hx of Infectious Diseases: None - Past Medical History & Family History Past Medical History?: Yes - Past Social History Smoking Status: Never Smoked - CARDIAC Hx Hypertension: Yes - PULMONARY Hx Respiratory Disorders: No - NEUROLOGICAL Hx Neurological Disorder: No - HEENT Hx HEENT Problems: Yes Hx Deafness: (LEFT HEARING AID) Other/Comment: HEARING IMPAIRED - RENAL Hx Chronic Kidney Disease: Yes - ENDOCRINE/METABOLIC Hx Endocrine Disorders: No - HEMATOLOGICAL/ONCOLOGICAL Hx Blood Disorders: Yes Other/Comment: Thrombocytopenia - INTEGUMENTARY Hx Dermatological Problems: No - MUSCULOSKELETAL/RHEUMATOLOGICAL Hx Musculoskeletal Disorders: No - GASTROINTESTINAL Hx Gastrointestinal Disorders: No - GENITOURINARY/GYNECOLOGICAL Hx Genitourinary Disorders: No - PSYCHIATRIC Hx Substance Use: No - SURGICAL HISTORY Hx Surgeries: Yes Other/Comment: peritoneal dialysis catheter 05/2017. right chest wall permacath - ANESTHESIA Hx Anesthesia: Yes Hx Anesthesia Reactions: No Hx Malignant Hyperthermia: No Meds Allergies/Adverse Reactions: Allergies Allergy/AdvReac Type Severity Reaction Status Date / Time aspirin AdvReac ANAPHYLAXIS Verified 04/04/18 06:28 - Medications Medications: Current Medications Vancomycin HCl (Vancomycin 1gm In Normal Saline Addvantage) 1 gm in 250 mls @ 166.667 mls/hr IV STAT GUILLE PRN Reason: Protocol Physical Exam - Constitutional Appears: Non-toxic, No Acute Distress - Head Exam Head Exam: NORMAL INSPECTION - Eye Exam Eye Exam: EOMI - Respiratory Exam Respiratory Exam: NORMAL BREATHING PATTERN - Cardiovascular Exam Cardiovascular Exam: Tachycardia, REGULAR RHYTHM - GI/Abdominal Exam GI & Abdominal Exam: Soft. absent: Rigid, Tenderness Additional comments: Large transverse surgical scar - Extremities Exam Extremities exam: Positive for: normal inspection - Neurological Exam Additional comments: Pt lethargic slow to answer questions - Skin Skin Exam: Erythema, Warm Results - Vital Signs Recent Vital Signs: Last Vital Signs Temp 100.4 F H 04/04/18 08:30 Pulse 106 H 04/04/18 08:30 Resp 20 04/04/18 08:30 BP 118/68 04/04/18 08:30 Pulse Ox 99 04/04/18 09:43 - Labs Result Diagrams: 04/04/18 06:59 04/04/18 06:59 Labs: Laboratory Results - last 24 hr 04/04/18 04/04/18 04/04/18 06:50 06:59 06:59 WBC 25.1 H D RBC 4.15 L Hgb 12.7 Hct 38.0 MCV 91.7 MCH 30.6 MCHC 33.4 RDW 14.9 H Plt Count 6 L* MPV 11.7 Neut % (Auto) 77.0 H Lymph % (Auto) 7.6 L [place] % (Auto) 12.1 H Eos % (Auto) 2.6 Baso % (Auto) 0.7 Neut # (Auto) 19.3 H Lymph # (Auto) 1.9 [place] # (Auto) 3.0 H Eos # (Auto) 0.6 Baso # (Auto) 0.2 Neutrophils % (Manual) 81 H Lymphocytes % (Manual) 6 L Monocytes % (Manual) 12 H Eosinophils % (Manual) 1 Platelet Estimate Markedly decreased L Large Platelets Present Giant Platelets Present PT 13.4 H INR 1.2 APTT 32 pO2 31 VBG pH 7.44 H VBG pCO2 24 L VBG HCO3 19.3 VBG Total CO2 17.0 L VBG O2 Sat (Calc) 71.1 H VBG Base Excess -6.0 L VBG Potassium 5.2 Sodium 139.0 Chloride 112.0 H Glucose 87 Lactate 1.6 Potassium Carbon Dioxide Anion Gap BUN Creatinine Est GFR ( Amer) Est GFR (Non-Af Amer) Random Glucose Calcium Magnesium Total Bilirubin AST ALT Alkaline Phosphatase Total Protein Albumin Globulin Albumin/Globulin Ratio Venous Blood Potassium 5.2 Influenza Typ A,B (EIA) 04/04/18 04/04/18 06:59 07:52 WBC RBC Hgb Hct MCV MCH MCHC RDW Plt Count MPV Neut % (Auto) Lymph % (Auto) [place] % (Auto) Eos % (Auto) Baso % (Auto) Neut # (Auto) Lymph # (Auto) [place] # (Auto) Eos # (Auto) Baso # (Auto) Neutrophils % (Manual) Lymphocytes % (Manual) Monocytes % (Manual) Eosinophils % (Manual) Platelet Estimate Large Platelets Giant Platelets PT INR APTT pO2 VBG pH VBG pCO2 VBG HCO3 VBG Total CO2 VBG O2 Sat (Calc) VBG Base Excess VBG Potassium Sodium 141 Chloride 111 H Glucose Lactate Potassium 6.0 H Carbon Dioxide 17 L Anion Gap 20 BUN 51 H Creatinine 7.3 H Est GFR ( Amer) 11 Est GFR (Non-Af Amer) 9 Random Glucose 98 Calcium 9.7 Magnesium 1.9 Total Bilirubin 0.8 AST 51 ALT 60 Alkaline Phosphatase 182 H D Total Protein 7.7 Albumin 4.4 Globulin 3.2 Albumin/Globulin Ratio 1.4 Venous Blood Potassium Influenza Typ A,B (EIA) Negative for flu a/b Assessment & Plan - Assessment and Plan (Free Text) Assessment: 32M with sepsis likely secondary to infected permacath Tachycardic, Normotensive, Febrile Thrombocytopenic 6 WBC 15 Potassium 6 recommend urgent/emergent dialysis through permacath, after which the surgical service will remove permacath at bedside with plan to transfuse platelets optimize and establish dialysis access possibly tomorrow. IV ABX Follow up culture D/W Dr. Philomena Byers PGY2
--- NOTE | 2018-04-04 11:02 | CP.PCM.HP ---
<Judy Headley - Last Filed: 04/04/18 15:42> History of Present Illness - History of Present Illness History of Present Illness: HPI: Patient is a 32M with a past medical history of HTN, ESRD (HD , , Tue), known atypical HUS and thrombocytopenia who presented to the ED with complaints of pain and yellow discharge from his dialysis port in his right chest. He also reports vomiting overnight at 12am and 4 am, but has not vomited since arriving to the hospital. The patient has been going to dialysis regularly on TTS, however, missed the last two sessions due to severe headache and general malaise. The patient currently complains of fevers, chills, headache , dizziness, abdominal pain, nausea, vomiting, and muscles aches. PMH: HTN, CKD, ESRD, known atypical HUS, thrombocytopenia Surg Hx: PD cath placed 05/2017, renal biopsy 03/2017, right chest permacath placed 03/2017, splenectomy at 4 y/o FMH: Denies family history Meds: Clonidine 0.2mg; occasionally takes tylenol as needed PMD: [facility] Allergies: Aspirin - "doctor told me not to take because of low platelets" Nephrology: Dr. Villasenor Vascular: Dr. Quach Heme-Onc: Dr. Benites Present on Admission - Present on Admission Any Indicators Present on Admission: No Review of Systems - Constitutional Constitutional: Chills, Fever, Headache, Lethargy, Malaise, Weakness - EENT Ears: Dizziness - Cardiovascular Cardiovascular: Chest Pain (right upper chest- at port site), Lightheadedness. absent: Leg Edema, Palpitations - Respiratory Respiratory: absent: Cough, Dyspnea - Gastrointestinal Gastrointestinal: Nausea, Vomiting. absent: Abdominal Pain, Constipation, Diarrhea - Genitourinary Genitourinary: Urinary Frequency, Urinary Hesitance. absent: Dysuria - Musculoskeletal Musculoskeletal: Myalgias - Integumentary Integumentary: absent: Rash, Unusual Bruising - Neurological Neurological: Dizziness, Headaches, Weakness - Hematologic/Lymphatic Additional comments: Denies bruising Past Patient History - Infectious Disease Hx of Infectious Diseases: None - Past Medical History & Family History Past Medical History?: Yes - Past Social History Smoking Status: Never Smoked - CARDIAC Hx Hypertension: Yes - PULMONARY Hx Respiratory Disorders: No - NEUROLOGICAL Hx Neurological Disorder: No - HEENT Hx HEENT Problems: Yes Hx Deafness: (LEFT HEARING AID) Other/Comment: HEARING IMPAIRED - RENAL Hx Chronic Kidney Disease: Yes - ENDOCRINE/METABOLIC Hx Endocrine Disorders: No - HEMATOLOGICAL/ONCOLOGICAL Hx Blood Disorders: Yes Other/Comment: Thrombocytopenia - INTEGUMENTARY Hx Dermatological Problems: No - MUSCULOSKELETAL/RHEUMATOLOGICAL Hx Musculoskeletal Disorders: No - GASTROINTESTINAL Hx Gastrointestinal Disorders: No - GENITOURINARY/GYNECOLOGICAL Hx Genitourinary Disorders: No - PSYCHIATRIC Hx Substance Use: No - SURGICAL HISTORY Hx Surgeries: Yes Other/Comment: peritoneal dialysis catheter 05/2017. right chest wall permacath - ANESTHESIA Hx Anesthesia: Yes Hx Anesthesia Reactions: No Hx Malignant Hyperthermia: No Meds Allergies/Adverse Reactions: Allergies Allergy/AdvReac Type Severity Reaction Status Date / Time aspirin AdvReac ANAPHYLAXIS Verified 04/04/18 06:28 Physical Exam - Constitutional Appears: Toxic, In Acute Distress - Head Exam Head Exam: ATRAUMATIC, NORMAL INSPECTION - Eye Exam Eye Exam: EOMI, Normal appearance, PERRL - ENT Exam ENT Exam: Mucous Membranes Moist - Respiratory Exam Respiratory Exam: Clear to Auscultation Bilateral. absent: Rales, Rhonchi, Wheezes - Cardiovascular Exam Cardiovascular Exam: Tachycardia, +S1, +S2 - GI/Abdominal Exam GI & Abdominal Exam: Normal Bowel Sounds, Soft, Tenderness (mild epigastric tenderness). absent: Distended, Firm Additional comments: well healed scar s/p previous peritoneal dialysis - Extremities Exam Extremities exam: Positive for: normal inspection, pedal pulses present. Negative for: pedal edema, tenderness - Back Exam Back exam: NORMAL INSPECTION. absent: CVA tenderness (L), CVA tenderness (R) - Neurological Exam Neurological exam: Alert, Oriented x3 - Psychiatric Exam Psychiatric exam: Normal Mood - Skin Skin Exam: Dry, Intact, Warm Additional comments: Permacath right upper chest- mild erythema noted; tenderness to palpation. No discharged noted. No petechaie or rashes noted Results - Vital Signs Recent Vital Signs: Last Vital Signs Temp 100.4 F H 04/04/18 08:30 Pulse 106 H 04/04/18 08:30 Resp 20 04/04/18 08:30 BP 118/68 04/04/18 08:30 Pulse Ox 99 04/04/18 10:19 - Labs Result Diagrams: 04/04/18 06:59 04/04/18 06:59 Labs: Laboratory Results - last 24 hr 04/04/18 04/04/18 04/04/18 06:50 06:59 06:59 WBC 25.1 H D RBC 4.15 L Hgb 12.7 Hct 38.0 MCV 91.7 MCH 30.6 MCHC 33.4 RDW 14.9 H Plt Count 6 L* MPV 11.7 Neut % (Auto) 77.0 H Lymph % (Auto) 7.6 L [place] % (Auto) 12.1 H Eos % (Auto) 2.6 Baso % (Auto) 0.7 Neut # (Auto) 19.3 H Lymph # (Auto) 1.9 [place] # (Auto) 3.0 H Eos # (Auto) 0.6 Baso # (Auto) 0.2 Neutrophils % (Manual) 81 H Lymphocytes % (Manual) 6 L Monocytes % (Manual) 12 H Eosinophils % (Manual) 1 Platelet Estimate Markedly decreased L Large Platelets Present Giant Platelets Present PT 13.4 H INR 1.2 APTT 32 pO2 31 VBG pH 7.44 H VBG pCO2 24 L VBG HCO3 19.3 VBG Total CO2 17.0 L VBG O2 Sat (Calc) 71.1 H VBG Base Excess -6.0 L VBG Potassium 5.2 Sodium 139.0 Chloride 112.0 H Glucose 87 Lactate 1.6 Potassium Carbon Dioxide Anion Gap BUN Creatinine Est GFR ( Amer) Est GFR (Non-Af Amer) Random Glucose Calcium Magnesium Total Bilirubin AST ALT Alkaline Phosphatase Total Protein Albumin Globulin Albumin/Globulin Ratio Venous Blood Potassium 5.2 Influenza Typ A,B (EIA) 04/04/18 04/04/18 06:59 07:52 WBC RBC Hgb Hct MCV MCH MCHC RDW Plt Count MPV Neut % (Auto) Lymph % (Auto) [place] % (Auto) Eos % (Auto) Baso % (Auto) Neut # (Auto) Lymph # (Auto) [place] # (Auto) Eos # (Auto) Baso # (Auto) Neutrophils % (Manual) Lymphocytes % (Manual) Monocytes % (Manual) Eosinophils % (Manual) Platelet Estimate Large Platelets Giant Platelets PT INR APTT pO2 VBG pH VBG pCO2 VBG HCO3 VBG Total CO2 VBG O2 Sat (Calc) VBG Base Excess VBG Potassium Sodium 141 Chloride 111 H Glucose Lactate Potassium 6.0 H Carbon Dioxide 17 L Anion Gap 20 BUN 51 H Creatinine 7.3 H Est GFR ( Amer) 11 Est GFR (Non-Af Amer) 9 Random Glucose 98 Calcium 9.7 Magnesium 1.9 Total Bilirubin 0.8 AST 51 ALT 60 Alkaline Phosphatase 182 H D Total Protein 7.7 Albumin 4.4 Globulin 3.2 Albumin/Globulin Ratio 1.4 Venous Blood Potassium Influenza Typ A,B (EIA) Negative for flu a/b Assessment & Plan (1) Sepsis Assessment and Plan: Sepsis likely secondary to catheter infection. Febrile (103F), Tachycardic, leukocytosis (WBC 25.1), elevated lactate In ED, patient was given Zosyn 2.25gm and Vancomycin 1gm IV. Lactate increased from 1.6 at admission to 3.2. - Repeat lactate: f/u UA: negative for infection; 2+ protein Influenza- negative Chest xray: no active pulmonary disease Blood cultures (blood and catheter): f/u results Urine culture: f/u results ID consulted, Dr. Gilmore. Help appreciated Surgery consulted, Dr. Quach. Help appreciated - Plan for bedside cath removal. After platelet transfusion, plan to establish dialysis access. ICU consulted. Patient accepted and transferred to ICU Bed 15. Continue management as per ICU team. Medications: - Zosyn 2.25g IV Q8h (active ) - Vancomycin 1gm given in ED - NS bolus given in ED - Reglan 10mg IV Q6h PRN for nausea/vomiting - Tylenol 650mg PO Q6h PRN for fevers/pain Status: Acute (2) ESRD (end stage renal disease) on dialysis Assessment and Plan: Dialysis schedule: TTS Scheduled for Dialysis today, as patient missed two sessions. Nephrology consulted, Dr. Villasenor. Help appreciated Sepsis likely secondary to catheter infection. Will likely be removed and replaced by surgery team. Status: Acute (3) Hyperkalemia Assessment and Plan: Secondary to ESRD EKG: sinus tachycardia; no ST or T wave changes. Patient scheduled for dialysis today. Duonebs and one dose of kayexalate given. Continue to monitor electrolytes. Status: Acute (4) Severe thrombocytopenia Assessment and Plan: At admission, platelet count of 6. Hem/Onc consulted, Dr. Benites. Help appreciated Type and cross Platelets (2 bags) to be transfused Continue to monitor Status: Acute (5) Atypical hemolytic uremic syndrome Assessment and Plan: Hx of atypical HUS and thrombocytopenia. Heme/Onc consulted, Dr. Benites. Help appreciated. Status: Acute (6) Hypertension Assessment and Plan: Home medication: Clonidine 0.2mg PO BID Status: Chronic (7) Headache Assessment and Plan: Head CT: no mass, hemorrhage, or acute infarct identified. mild cerebral atrophy. Status: Acute (8) Prophylactic measure Assessment and Plan: DVT: No chemical anticoagulation due to severe thrombocytopenia GI: Protonix 40mg NPO Status: Acute <Odette Quinones V - Last Filed: 04/04/18 20:44> Results - Vital Signs Recent Vital Signs: Last Vital Signs Temp 99 F 04/04/18 19:00 Pulse 88 04/04/18 19:03 Resp 18 04/04/18 19:03 BP 147/91 H 04/04/18 19:03 Pulse Ox 100 04/04/18 19:03 - Labs Result Diagrams: 04/04/18 16:20 04/04/18 16:20 Labs: Laboratory Results - last 24 hr 04/04/18 04/04/18 04/04/18 06:50 06:59 06:59 WBC 25.1 H D RBC 4.15 L Hgb 12.7 Hct 38.0 MCV 91.7 MCH 30.6 MCHC 33.4 RDW 14.9 H Plt Count 6 L* MPV 11.7 Neut % (Auto) 77.0 H Lymph % (Auto) 7.6 L [place] % (Auto) 12.1 H Eos % (Auto) 2.6 Baso % (Auto) 0.7 Neut # (Auto) 19.3 H Lymph # (Auto) 1.9 [place] # (Auto) 3.0 H Eos # (Auto) 0.6 Baso # (Auto) 0.2 Neutrophils % (Manual) 81 H Band Neutrophils % Lymphocytes % (Manual) 6 L Monocytes % (Manual) 12 H Eosinophils % (Manual) 1 Metamyelocytes % Platelet Estimate Markedly decreased L Large Platelets Present Giant Platelets Present PT 13.4 H INR 1.2 APTT 32 pO2 31 VBG pH 7.44 H VBG pCO2 24 L VBG HCO3 19.3 VBG Total CO2 17.0 L VBG O2 Sat (Calc) 71.1 H VBG Base Excess -6.0 L VBG Potassium 5.2 Sodium 139.0 Chloride 112.0 H Glucose 87 Lactate 1.6 Potassium Carbon Dioxide Anion Gap BUN Creatinine Est GFR ( Amer) Est GFR (Non-Af Amer) Random Glucose Lactic Acid Calcium Magnesium Total Bilirubin AST ALT Alkaline Phosphatase Total Protein Albumin Globulin Albumin/Globulin Ratio Venous Blood Potassium 5.2 Urine Color Urine Clarity Urine pH Ur Specific [place] Urine Protein Urine Glucose (UA) Urine Ketones Urine Blood Urine Nitrate Urine Bilirubin Urine Urobilinogen Ur Leukocyte Esterase Urine WBC (Auto) Urine RBC (Auto) Urine Bacteria Influenza Typ A,B (EIA) Blood Type Antibody Screen 04/04/18 04/04/18 04/04/18 06:59 07:52 12:11 WBC RBC Hgb Hct MCV MCH MCHC RDW Plt Count MPV Neut % (Auto) Lymph % (Auto) [place] % (Auto) Eos % (Auto) Baso % (Auto) Neut # (Auto) Lymph # (Auto) [place] # (Auto) Eos # (Auto) Baso # (Auto) Neutrophils % (Manual) Band Neutrophils % Lymphocytes % (Manual) Monocytes % (Manual) Eosinophils % (Manual) Metamyelocytes % Platelet Estimate Large Platelets Giant Platelets PT INR APTT pO2 VBG pH VBG pCO2 VBG HCO3 VBG Total CO2 VBG O2 Sat (Calc) VBG Base Excess VBG Potassium Sodium 141 Chloride 111 H Glucose Lactate Potassium 6.0 H Carbon Dioxide 17 L Anion Gap 20 BUN 51 H Creatinine 7.3 H Est GFR ( Amer) 11 Est GFR (Non-Af Amer) 9 Random Glucose 98 Lactic Acid Calcium 9.7 Magnesium 1.9 Total Bilirubin 0.8 AST 51 ALT 60 Alkaline Phosphatase 182 H D Total Protein 7.7 Albumin 4.4 Globulin 3.2 Albumin/Globulin Ratio 1.4 Venous Blood Potassium Urine Color Straw Urine Clarity Clear Urine pH 9.0 Ur Specific [place] 1.009 Urine Protein 2+ H Urine Glucose (UA) Normal Urine Ketones Negative Urine Blood Negative Urine Nitrate Negative Urine Bilirubin Negative Urine Urobilinogen Normal Ur Leukocyte Esterase Neg Urine WBC (Auto) < 1 Urine RBC (Auto) 1 Urine Bacteria Rare Influenza Typ A,B (EIA) Negative for flu a/b Blood Type Antibody Screen 04/04/18 04/04/18 04/04/18 13:13 13:30 16:20 WBC RBC Hgb Hct MCV MCH MCHC RDW Plt Count MPV Neut % (Auto) Lymph % (Auto) [place] % (Auto) Eos % (Auto) Baso % (Auto) Neut # (Auto) Lymph # (Auto) [place] # (Auto) Eos # (Auto) Baso # (Auto) Neutrophils % (Manual) Band Neutrophils % Lymphocytes % (Manual) Monocytes % (Manual) Eosinophils % (Manual) Metamyelocytes % Platelet Estimate Large Platelets Giant Platelets PT INR APTT pO2 VBG pH VBG pCO2 VBG HCO3 VBG Total CO2 VBG O2 Sat (Calc) VBG Base Excess VBG Potassium Sodium Chloride Glucose Lactate Potassium Carbon Dioxide Anion Gap BUN Creatinine Est GFR ( Amer) Est GFR (Non-Af Amer) Random Glucose Lactic Acid 3.2 H 1.5 Calcium Magnesium Total Bilirubin AST ALT Alkaline Phosphatase Total Protein Albumin Globulin Albumin/Globulin Ratio Venous Blood Potassium Urine Color Urine Clarity Urine pH Ur Specific [place] Urine Protein Urine Glucose (UA) Urine Ketones Urine Blood Urine Nitrate Urine Bilirubin Urine Urobilinogen Ur Leukocyte Esterase Urine WBC (Auto) Urine RBC (Auto) Urine Bacteria Influenza Typ A,B (EIA) Blood Type O POSITIVE Antibody Screen Negative 04/04/18 04/04/18 16:20 16:20 WBC 35.6 H RBC 4.00 L Hgb 12.1 Hct 36.3 MCV 90.8 MCH 30.2 MCHC 33.3 RDW 15.1 H Plt Count 5 L* MPV 10.3 Neut % (Auto) 83.4 H Lymph % (Auto) 3.0 L [place] % (Auto) 13.3 H Eos % (Auto) 0.1 Baso % (Auto) 0.2 Neut # (Auto) 29.7 H Lymph # (Auto) 1.1 [place] # (Auto) 4.7 H Eos # (Auto) 0.0 Baso # (Auto) 0.1 Neutrophils % (Manual) 81 H Band Neutrophils % 4 H Lymphocytes % (Manual) 3 L Monocytes % (Manual) 11 H Eosinophils % (Manual) Metamyelocytes % 1 H Platelet Estimate Markedly decreased L Large Platelets Giant Platelets PT INR APTT pO2 VBG pH VBG pCO2 VBG HCO3 VBG Total CO2 VBG O2 Sat (Calc) VBG Base Excess VBG Potassium Sodium 141 Chloride 112 H Glucose Lactate Potassium 5.5 H Carbon Dioxide 14 L Anion Gap 21 H BUN 52 H Creatinine 7.7 H* Est GFR ( Amer) 10 Est GFR (Non-Af Amer) 8 Random Glucose 101 Lactic Acid Calcium 9.2 Magnesium Total Bilirubin 1.1 AST 28 ALT 52 Alkaline Phosphatase 153 H Total Protein 6.9 Albumin 4.0 Globulin 3.0 Albumin/Globulin Ratio 1.3 Venous Blood Potassium Urine Color Urine Clarity Urine pH Ur Specific [place] Urine Protein Urine Glucose (UA) Urine Ketones Urine Blood Urine Nitrate Urine Bilirubin Urine Urobilinogen Ur Leukocyte Esterase Urine WBC (Auto) Urine RBC (Auto) Urine Bacteria Influenza Typ A,B (EIA) Blood Type Antibody Screen Attending/Attestation - Attestation I have personally seen and examined this patient.: Yes I have fully participated in the care of the patient.: Yes I have reviewed all pertinent clinical information: Yes Notes (Text): Medical attending Note: Patient is well known to the hospitalist service. Patient with known history of hypertension, atypical-HUS, chronic thrombocytopenia, on ESRD via permacath, prior history of infected peritoneal dialysis comes following fever yesterday, associated nausea and vomitting last evening, has missed two dialysis sessions because he reports he is not feeling well and reports for the past 2-3 weeks he has been some type of discharge associated with his dialysis catheter. patient noted to have white count elevated, fever, suspected source of infectious dialysis catheter. Patient has hyperkalemia, no noted ekg changes, given Calcium gluconate and order for duoneb/kaxyelate to bring potassium down. Patient was called as a code sepsis because he is febrile, elevated white count , and lactate acid increased to 3.2. Since patient is ESRD and has not had dialysis, will not give sepsis dosing of fluids to prevent worsening of fluid overload state. Resident has obtained patient consent for blood products. Patient has tolerated platelet and PRBCs in the past. Blood bank has received request and platelets on route. Case discussed with ICU, given code sepsis status, accepted in to the unit. Vascular, nephrology, hematology-oncology, infectious disease on board-->help appreciated Assessment/plan (1) Sepsis Assessment and Plan: * Sepsis likely secondary to catheter infection. * Criteria: Febrile (103F), Tachycardic, leukocytosis (WBC 25.1), elevated lactate * In ED, patient was given Zosyn 2.25gm and Vancomycin 1gm IV. * Lactate increased from 1.6 at admission to 3.2-->in 3 hours Repeat lactate: f/ u * UA: negative for infection; 2+ protein; urine culture (03/31) penidng * Influenza- negative * Chest xray: no active pulmonary disease * Blood cultures (blood and catheter) (04/04/18): f/u results * ID consulted, Dr. Gilmore. Help appreciated * Surgery consulted, Dr. Quach. Help appreciated * Initial Plan for bedside cath removal. However awaiting platelet transfusion , prior to inserting dialysis catheter given high risk of bleeding given thrombocytopenia * ICU consulted. Patient accepted and transferred to ICU Bed 15. Further management as per ICU team. Medications: * Zosyn 2.25g IV Q8h (active ) * Vancomycin 1gm given in ED * NS bolus given in ED * Reglan 10mg IV Q6h PRN for nausea/vomiting * Tylenol 650mg PO Q6h PRN for fevers/pain * Cooling blanket ordered but not available Status: Acute (2) ESRD (end stage renal disease) on dialysis Assessment and Plan: * Dialysis schedule: TTS * Scheduled for Dialysis today, as patient missed two sessions. * Nephrology consulted, Dr. Villasenor. Help appreciated * Sepsis likely secondary to catheter infection. Will likely be removed and replaced. Status: Acute (3) Hyperkalemia Assessment and Plan: * Secondary to ESRD * EKG: sinus tachycardia; no ST or T wave changes. * Patient scheduled for dialysis today. * Duonebs and one dose of kayexalate given. * Continue to monitor electrolytes. * f/u BMP Status: Acute (4) Severe thrombocytopenia Assessment and Plan: * Hem/Onc consulted, Dr. Benites. Help appreciated * At admission, platelet count of 6. * Type and cross * Platelets (2 bags) to be transfused and blood prbcs available * Continue to monitor * patient diagnosed with atypical HUS; on solaris; awaiting evaluation by subspecialist as outpatient but limited secondary to affordability * possible sepsis to consider Status: Acute (5) Atypical hemolytic uremic syndrome Assessment and Plan: * Hx of atypical HUS and thrombocytopenia. * Heme/Onc consulted, Dr. Benites. Help appreciated. * Renal biopsy confirmed in prior hospitalization noted in the EMR Status: Acute (6) Hypertension Assessment and Plan: * Home medication: Clonidine 0.2mg PO BID Status: Chronic (7) Headache Assessment and Plan: * Head CT: no mass, hemorrhage, or acute infarct identified. mild cerebral atrophy. Status: Acute (8) Prophylactic measure Assessment and Plan: * DVT: No chemical anticoagulation due to severe thrombocytopenia * GI: Pepcid 20mg Iv q daily * NPO until patient has adequate access for dialysis Status: Acute
--- NOTE | 2018-04-04 11:09 | CT ---
PROCEDURE: CT HEAD WITHOUT CONTRAST HISTORY: HEADACHE HO HUS, ESRD, FEVER COMPARISON: CT head 03/15/2017 TECHNIQUE: Axial computed tomography images were obtained through the head/brain without intravenous contrast. Coronal, sagittal, and 3D reconstructions were also acquired. Radiation dose: Total exam DLP = 993 mGy-cm. FINDINGS: HEMORRHAGE: No intracranial hemorrhage seen. BRAIN: No mass effect or edema. Mild cerebral atrophy, greater than expected for patient age. VENTRICLES: Unremarkable. No hydrocephalus. CALVARIUM: Intact PARANASAL SINUSES: Moderate mucosal thickening bilateral ethmoid sinuses. Mild mucosal thickening bilateral sphenoid and maxillary sinuses to the extent visualized. Frontal sinuses demonstrate minimal mucosal thickening. MASTOID AIR CELLS: Visualized mastoid air cells are clear. OTHER FINDINGS: None. IMPRESSION: No mass, hemorrhage, or acute infarct identified. Mild cerebral atrophy, greater than expected for patient age.
--- NOTE | 2018-04-04 11:09 | RAD ---
PROCEDURE: CHEST RADIOGRAPH, 1 VIEW HISTORY: FEVER ESRD COMPARISON: 02/07/2018. FINDINGS: LUNGS: The right-sided dialysis catheter terminates in the right atrium P The lungs are well inflated and clear. PLEURA: No pneumothorax or pleural fluid seen. CARDIOVASCULAR: Normal. OSSEOUS STRUCTURES: No significant abnormalities. VISUALIZED UPPER ABDOMEN: Normal. OTHER FINDINGS: None. IMPRESSION: No active pulmonary disease.
[2018-04-04] MEDS ORDERED: Vancomycin 1 gm/NS 200 ml 1 GM/200 ML BAG IVPB STA (11:12)
--- NOTE | 2018-04-04 11:33 | CP.PCM.CON ---
History of Present Illness - History of Present Illness History of Present Illness: 32M with a PMH of HTN, CKD, ESRD (HD , , Tue), known atypical HUS and thrombocytopenia, HTN who presented to the ED w/ fever and pain at permcath site for a week. Pt reports pain rt neck during dialysis, missed dialysis for that reason on tuesday. febrile 102 in ER Otherwise denies any chest pain sob dizziness n/v/d/cough/bleeding/weakness/ numbness/headache PMH: HTN, CKD, ESRD, known typical HUS, thrombocytopenia Surg Hx: PD cath placed 05/2017, renal biopsy 03/2017, right chest permacath placed 03/2017, splenectomy at 4 y/o FMH: Denies, no CKD Soc: no ETOH, smoking, illicits Allergies: Aspirin - Rash, nausea Review of Systems - Review of Systems All systems: reviewed and no additional remarkable complaints except (as per HPI ) Past Patient History - Infectious Disease Hx of Infectious Diseases: None - Past Medical History & Family History Past Medical History?: Yes - Past Social History Smoking Status: Never Smoked - CARDIAC Hx Hypertension: Yes - PULMONARY Hx Respiratory Disorders: No - NEUROLOGICAL Hx Neurological Disorder: No - HEENT Hx HEENT Problems: Yes Hx Deafness: (LEFT HEARING AID) Other/Comment: HEARING IMPAIRED - RENAL Hx Chronic Kidney Disease: Yes - ENDOCRINE/METABOLIC Hx Endocrine Disorders: No - HEMATOLOGICAL/ONCOLOGICAL Hx Blood Disorders: Yes Other/Comment: Thrombocytopenia - INTEGUMENTARY Hx Dermatological Problems: No - MUSCULOSKELETAL/RHEUMATOLOGICAL Hx Musculoskeletal Disorders: No - GASTROINTESTINAL Hx Gastrointestinal Disorders: No - GENITOURINARY/GYNECOLOGICAL Hx Genitourinary Disorders: No - PSYCHIATRIC Hx Substance Use: No - SURGICAL HISTORY Hx Surgeries: Yes Other/Comment: peritoneal dialysis catheter 05/2017. right chest wall permacath - ANESTHESIA Hx Anesthesia: Yes Hx Anesthesia Reactions: No Hx Malignant Hyperthermia: No Meds Allergies/Adverse Reactions: Allergies Allergy/AdvReac Type Severity Reaction Status Date / Time aspirin AdvReac ANAPHYLAXIS Verified 04/04/18 06:28 - Medications Medications: Current Medications Vancomycin/Sodium Chloride (Vancomycin 1 Gm/Ns 200 Ml) 1 gm in 200 mls @ 166.7 mls/hr IVPB STAT STA PRN Reason: Protocol Stop: 04/04/18 12:23 Physical Exam - Constitutional Appears: No Acute Distress, Chronically Ill - Head Exam Head Exam: NORMAL INSPECTION, NORMOCEPHALIC - Eye Exam Eye Exam: Normal appearance, PERRL Pupil Exam: PERRL - ENT Exam ENT Exam: Mucous Membranes Moist, Normal Exam - Neck Exam Neck exam: Positive for: Normal Inspection (rt chest permcath, exit site w/ yellowish discharge) - Respiratory Exam Respiratory Exam: Clear to Auscultation Bilateral, NORMAL BREATHING PATTERN - Cardiovascular Exam Cardiovascular Exam: REGULAR RHYTHM, RRR - GI/Abdominal Exam GI & Abdominal Exam: Distended, Normal Bowel Sounds, Soft - Extremities Exam Extremities exam: Positive for: full ROM, normal inspection - Back Exam Back exam: NORMAL INSPECTION - Neurological Exam Neurological exam: Alert, Normal Gait, Oriented x3 - Psychiatric Exam Psychiatric exam: Normal Affect, Normal Mood - Skin Skin Exam: Dry, Intact, Normal Color Results - Vital Signs Recent Vital Signs: Last Vital Signs Temp 99.5 F 04/04/18 11:21 Pulse 90 04/04/18 11:21 Resp 20 04/04/18 11:21 BP 102/82 04/04/18 11:21 Pulse Ox 99 04/04/18 11:21 - Labs Result Diagrams: 04/04/18 06:59 04/04/18 06:59 Labs: Laboratory Results - last 24 hr 04/04/18 04/04/18 04/04/18 06:50 06:59 06:59 WBC 25.1 H D RBC 4.15 L Hgb 12.7 Hct 38.0 MCV 91.7 MCH 30.6 MCHC 33.4 RDW 14.9 H Plt Count 6 L* MPV 11.7 Neut % (Auto) 77.0 H Lymph % (Auto) 7.6 L [place] % (Auto) 12.1 H Eos % (Auto) 2.6 Baso % (Auto) 0.7 Neut # (Auto) 19.3 H Lymph # (Auto) 1.9 [place] # (Auto) 3.0 H Eos # (Auto) 0.6 Baso # (Auto) 0.2 Neutrophils % (Manual) 81 H Lymphocytes % (Manual) 6 L Monocytes % (Manual) 12 H Eosinophils % (Manual) 1 Platelet Estimate Markedly decreased L Large Platelets Present Giant Platelets Present PT 13.4 H INR 1.2 APTT 32 pO2 31 VBG pH 7.44 H VBG pCO2 24 L VBG HCO3 19.3 VBG Total CO2 17.0 L VBG O2 Sat (Calc) 71.1 H VBG Base Excess -6.0 L VBG Potassium 5.2 Sodium 139.0 Chloride 112.0 H Glucose 87 Lactate 1.6 Potassium Carbon Dioxide Anion Gap BUN Creatinine Est GFR ( Amer) Est GFR (Non-Af Amer) Random Glucose Calcium Magnesium Total Bilirubin AST ALT Alkaline Phosphatase Total Protein Albumin Globulin Albumin/Globulin Ratio Venous Blood Potassium 5.2 Influenza Typ A,B (EIA) 04/04/18 04/04/18 06:59 07:52 WBC RBC Hgb Hct MCV MCH MCHC RDW Plt Count MPV Neut % (Auto) Lymph % (Auto) [place] % (Auto) Eos % (Auto) Baso % (Auto) Neut # (Auto) Lymph # (Auto) [place] # (Auto) Eos # (Auto) Baso # (Auto) Neutrophils % (Manual) Lymphocytes % (Manual) Monocytes % (Manual) Eosinophils % (Manual) Platelet Estimate Large Platelets Giant Platelets PT INR APTT pO2 VBG pH VBG pCO2 VBG HCO3 VBG Total CO2 VBG O2 Sat (Calc) VBG Base Excess VBG Potassium Sodium 141 Chloride 111 H Glucose Lactate Potassium 6.0 H Carbon Dioxide 17 L Anion Gap 20 BUN 51 H Creatinine 7.3 H Est GFR ( Amer) 11 Est GFR (Non-Af Amer) 9 Random Glucose 98 Calcium 9.7 Magnesium 1.9 Total Bilirubin 0.8 AST 51 ALT 60 Alkaline Phosphatase 182 H D Total Protein 7.7 Albumin 4.4 Globulin 3.2 Albumin/Globulin Ratio 1.4 Venous Blood Potassium Influenza Typ A,B (EIA) Negative for flu a/b Assessment & Plan (1) ESRD (end stage renal disease) on dialysis Status: Acute (2) Fever Status: Acute (3) Hyperkalemia Status: Acute (4) Thrombocytopenia Status: Acute (5) Leukocytosis Status: Acute - Assessment and Plan (Free Text) Assessment: likely catheter infection esrd htn chronic thrombocytopenia plan: on vancomycin and zosyn recommend ID evaluation Dr Quach aware, will need catheter change hd today will need hematology onboard for procedures
[2018-04-04] MEDS ORDERED: Albuterol-Ipratrop 3 mg / 0.5 (3 ml) UD INH STA (12:11)
[2018-04-04] MEDS ORDERED: Sod Polystyrene Sulf 15 gm/60 ml Susp PO ONE (12:19)
[2018-04-04 12:23] LABS: URINE BACTERIA RARE (<OCC); URINE BILIRUBIN NEGATIVE (NEGATIVE); URINE BLOOD NEGATIVE (NEGATIVE); URINE CLARITY Clear (Clear); URINE COLOR Straw (YELLOW); URINE GLUCOSE (UA) NORMAL (Normal); URINE LEUKOCYTE ESTERASE NEG Leu/uL (Negative); URINE PROTEIN 2+ mg/dL (NEGATIVE); URINE UROBILINOGEN NORMAL mg/dL (0.2-1.0)
[2018-04-04] MEDS ORDERED: Sodium Chloride 0.9% 500 ML IV ONE ×2 (14:28→14:36)
--- NOTE | 2018-04-04 15:39 | PCM.SEPTIC ---
Sepsis Progress Note - Reassessment Type Date of Evaluation: 04/04/18 Time of Evaluation: 16:16 Reassessment Type: Non-invasive reassessment - Non Invasive Reassessment Were the most recent vital sign reviewed: Yes Vital Sign (Latest): Temp Pulse Resp BP Pulse Ox 103 F H 144 H 20 163/103 H 99 04/04/18 13:59 04/04/18 13:59 04/04/18 13:59 04/04/18 13:59 04/04/18 11:21 Cardiovascular: Yes: Tachycardia. No: JVD, Murmur, Bradycardia, Friction Rub, Irregularly Irregular Respiratory: Yes: Normal Breath Sounds Capillary Refill: Normal (Less than 2 sec) Skin: Normal Color, Warm - Invasive Reassessment (complete 2 of 4) Was a Central Venous Pressure Measurement obtained within 6 Hours after the presentation of septic shock: No Was a central venous oxygen measurement obtained within 6 hours after the presentation of septic shock: No Was a bedside cardiovascular ultrasound performed within 6 hours after the presentation of septic shock: No Was a passive leg raise performed or was a fluid challenge performed within 6 hrs of the initial fluid bolus: No
--- NOTE | 2018-04-04 15:39 | CP.PCM.CON ---
<Jewels Mcghee - Last Filed: 04/04/18 16:32> History of Present Illness - History of Present Illness History of Present Illness: ICU CONSULT NOTE HPI: Patient is a 32M with a past medical history of HTN, ESRD (HD , Th, Sat), known atypical HUS and thrombocytopenia who presented to the ED with complaints of pain and yellow discharge from his dialysis port in his right chest. He also reports vomiting overnight at 12am and 4 am, but has not vomited since arriving to the hospital. The patient has been going to dialysis regularly on TTS, however, missed the last two sessions due to severe headache and general malaise. The patient currently complains of fevers, chills, headache , dizziness, abdominal pain, nausea, non-bloody non bilious vomiting x 5, and muscles aches. Patient denies any blood in stool or melena. PMH: HTN, CKD, ESRD, known atypical HUS, thrombocytopenia Surg Hx: PD cath placed 05/2017, renal biopsy 03/2017, right chest permacath placed 03/2017, splenectomy at 4 y/o FMH: Denies family history Meds: Clonidine 0.2mg; occasionally takes tylenol as needed PMD: [facility] (Formerly [facility]) Allergies: Aspirin - "doctor told me not to take because of low platelets" Nephrology: Dr. Villasenor Vascular: Dr. Quach Heme-Onc: Dr. Benites Review of Systems - Review of Systems All systems: reviewed and no additional remarkable complaints except (As per HPI ) Past Patient History - Infectious Disease Hx of Infectious Diseases: None - Past Medical History & Family History Past Medical History?: Yes - Past Social History Smoking Status: Never Smoked - CARDIAC Hx Hypertension: Yes - PULMONARY Hx Respiratory Disorders: No - NEUROLOGICAL Hx Neurological Disorder: No - HEENT Hx HEENT Problems: Yes Hx Deafness: (LEFT HEARING AID) Other/Comment: HEARING IMPAIRED - RENAL Hx Chronic Kidney Disease: Yes - ENDOCRINE/METABOLIC Hx Endocrine Disorders: No - HEMATOLOGICAL/ONCOLOGICAL Hx Blood Disorders: Yes Other/Comment: Thrombocytopenia - INTEGUMENTARY Hx Dermatological Problems: No - MUSCULOSKELETAL/RHEUMATOLOGICAL Hx Musculoskeletal Disorders: No - GASTROINTESTINAL Hx Gastrointestinal Disorders: No - GENITOURINARY/GYNECOLOGICAL Hx Genitourinary Disorders: No - PSYCHIATRIC Hx Substance Use: No - SURGICAL HISTORY Hx Surgeries: Yes Other/Comment: peritoneal dialysis catheter 05/2017. right chest wall permacath - ANESTHESIA Hx Anesthesia: Yes Hx Anesthesia Reactions: No Hx Malignant Hyperthermia: No Meds Allergies/Adverse Reactions: Allergies Allergy/AdvReac Type Severity Reaction Status Date / Time aspirin AdvReac ANAPHYLAXIS Verified 04/04/18 06:28 - Medications Medications: Current Medications Acetaminophen (Tylenol 325mg Tab) 650 mg PO Q6 PRN PRN Reason: Fever >100.4 F Last Admin: 04/04/18 12:34 Dose: 650 mg Piperacillin Sod/Tazobactam (Sod 2.25 gm/ Sodium Chloride) 100 mls @ 200 mls/ hr IVPB Q8H GUIL[place] PRN Reason: Protocol Metoclopramide HCl (Reglan) 10 mg IVP Q6H PRN PRN Reason: Nausea/Vomiting Last Admin: 04/04/18 13:45 Dose: 10 mg Physical Exam - Additional Findings Additional findings: - Constitutional Appears: Toxic, In Acute Distress - Head Exam Head Exam: ATRAUMATIC, NORMAL INSPECTION - Eye Exam Eye Exam: EOMI, Normal appearance, PERRL - ENT Exam ENT Exam: Mucous Membranes Moist - Respiratory Exam Respiratory Exam: Clear to Auscultation Bilateral. absent: Rales, Rhonchi, Wheezes - Cardiovascular Exam Cardiovascular Exam: Tachycardia, +S1, +S2 - GI/Abdominal Exam GI & Abdominal Exam: Normal Bowel Sounds, Soft, Tenderness (mild epigastric tenderness). absent: Distended, Firm Additional comments: well healed scar s/p previous peritoneal dialysis - Extremities Exam Extremities exam: Positive for: normal inspection, pedal pulses present. Negative for: pedal edema, tenderness - Back Exam Back exam: NORMAL INSPECTION. absent: CVA tenderness (L), CVA tenderness (R) - Neurological Exam Neurological exam: Alert, Oriented x3 - Psychiatric Exam Psychiatric exam: Normal Mood - Skin Skin Exam: Dry, Intact, Warm Additional comments: Permacath right upper chest- mild erythema noted; tenderness to palpation. No discharged noted. No petechaie or rashes noted Results - Vital Signs Recent Vital Signs: Last Vital Signs Temp 103 F H 04/04/18 13:59 Pulse 144 H 04/04/18 13:59 Resp 20 04/04/18 13:59 BP 163/103 H 04/04/18 13:59 Pulse Ox 99 04/04/18 11:21 - Labs Result Diagrams: 04/04/18 06:59 05/22/18 06:59 Labs: Laboratory Results - last 24 hr 04/04/18 04/04/18 04/04/18 06:50 06:59 06:59 WBC 25.1 H D RBC 4.15 L Hgb 12.7 Hct 38.0 MCV 91.7 MCH 30.6 MCHC 33.4 RDW 14.9 H Plt Count 6 L* MPV 11.7 Neut % (Auto) 77.0 H Lymph % (Auto) 7.6 L [place] % (Auto) 12.1 H Eos % (Auto) 2.6 Baso % (Auto) 0.7 Neut # (Auto) 19.3 H Lymph # (Auto) 1.9 [place] # (Auto) 3.0 H Eos # (Auto) 0.6 Baso # (Auto) 0.2 Neutrophils % (Manual) 81 H Lymphocytes % (Manual) 6 L Monocytes % (Manual) 12 H Eosinophils % (Manual) 1 Platelet Estimate Markedly decreased L Large Platelets Present Giant Platelets Present PT 13.4 H INR 1.2 APTT 32 pO2 31 VBG pH 7.44 H VBG pCO2 24 L VBG HCO3 19.3 VBG Total CO2 17.0 L VBG O2 Sat (Calc) 71.1 H VBG Base Excess -6.0 L VBG Potassium 5.2 Sodium 139.0 Chloride 112.0 H Glucose 87 Lactate 1.6 Potassium Carbon Dioxide Anion Gap BUN Creatinine Est GFR ( Amer) Est GFR (Non-Af Amer) Random Glucose Lactic Acid Calcium Magnesium Total Bilirubin AST ALT Alkaline Phosphatase Total Protein Albumin Globulin Albumin/Globulin Ratio Venous Blood Potassium 5.2 Urine Color Urine Clarity Urine pH Ur Specific [place] Urine Protein Urine Glucose (UA) Urine Ketones Urine Blood Urine Nitrate Urine Bilirubin Urine Urobilinogen Ur Leukocyte Esterase Urine WBC (Auto) Urine RBC (Auto) Urine Bacteria Influenza Typ A,B (EIA) Blood Type Antibody Screen 04/04/18 04/04/18 04/04/18 06:59 07:52 12:11 WBC RBC Hgb Hct MCV MCH MCHC RDW Plt Count MPV Neut % (Auto) Lymph % (Auto) [place] % (Auto) Eos % (Auto) Baso % (Auto) Neut # (Auto) Lymph # (Auto) [place] # (Auto) Eos # (Auto) Baso # (Auto) Neutrophils % (Manual) Lymphocytes % (Manual) Monocytes % (Manual) Eosinophils % (Manual) Platelet Estimate Large Platelets Giant Platelets PT INR APTT pO2 VBG pH VBG pCO2 VBG HCO3 VBG Total CO2 VBG O2 Sat (Calc) VBG Base Excess VBG Potassium Sodium 141 Chloride 111 H Glucose Lactate Potassium 6.0 H Carbon Dioxide 17 L Anion Gap 20 BUN 51 H Creatinine 7.3 H Est GFR ( Amer) 11 Est GFR (Non-Af Amer) 9 Random Glucose 98 Lactic Acid Calcium 9.7 Magnesium 1.9 Total Bilirubin 0.8 AST 51 ALT 60 Alkaline Phosphatase 182 H D Total Protein 7.7 Albumin 4.4 Globulin 3.2 Albumin/Globulin Ratio 1.4 Venous Blood Potassium Urine Color Straw Urine Clarity Clear Urine pH 9.0 Ur Specific [place] 1.009 Urine Protein 2+ H Urine Glucose (UA) Normal Urine Ketones Negative Urine Blood Negative Urine Nitrate Negative Urine Bilirubin Negative Urine Urobilinogen Normal Ur Leukocyte Esterase Neg Urine WBC (Auto) < 1 Urine RBC (Auto) 1 Urine Bacteria Rare Influenza Typ A,B (EIA) Negative for flu a/b Blood Type Antibody Screen 04/04/18 04/04/18 13:13 13:30 WBC RBC Hgb Hct MCV MCH MCHC RDW Plt Count MPV Neut % (Auto) Lymph % (Auto) [place] % (Auto) Eos % (Auto) Baso % (Auto) Neut # (Auto) Lymph # (Auto) [place] # (Auto) Eos # (Auto) Baso # (Auto) Neutrophils % (Manual) Lymphocytes % (Manual) Monocytes % (Manual) Eosinophils % (Manual) Platelet Estimate Large Platelets Giant Platelets PT INR APTT pO2 VBG pH VBG pCO2 VBG HCO3 VBG Total CO2 VBG O2 Sat (Calc) VBG Base Excess VBG Potassium Sodium Chloride Glucose Lactate Potassium Carbon Dioxide Anion Gap BUN Creatinine Est GFR ( Amer) Est GFR (Non-Af Amer) Random Glucose Lactic Acid 3.2 H Calcium Magnesium Total Bilirubin AST ALT Alkaline Phosphatase Total Protein Albumin Globulin Albumin/Globulin Ratio Venous Blood Potassium Urine Color Urine Clarity Urine pH Ur Specific [place] Urine Protein Urine Glucose (UA) Urine Ketones Urine Blood Urine Nitrate Urine Bilirubin Urine Urobilinogen Ur Leukocyte Esterase Urine WBC (Auto) Urine RBC (Auto) Urine Bacteria Influenza Typ A,B (EIA) Blood Type O POSITIVE Antibody Screen Negative Assessment & Plan - Assessment and Plan (Free Text) Assessment: Patient is a 32M with a past medical history of HTN, ESRD (HD Tues, Thurs, Sat) , known atypical HUS and thrombocytopenia. ICU consulted for evaluation and treatment of sepsis and severe thrombocytopenia. Plan: Neuro: GCS: 15 Sedation: None A: Headache Head CT: no mass, hemorrhage, or acute infarct identified. mild cerebral atrophy. Cardio: A: HTN Home medication: Clonidine 0.2mg PO BID Renal A: ESRD (TTS), Hyperkalemia, Dialysis schedule: TTS Scheduled for Dialysis today, as patient missed two sessions. Nephrology consulted, Dr. Villasenor. Help appreciated Sepsis likely secondary to catheter infection. Will likely be removed and replaced by surgery team. EKG: sinus tachycardia; no ST or T wave changes. Patient scheduled for dialysis today. Duonebs and one dose of kayexalate given. Continue to monitor electrolytes. Heme/Onc A: Severe Thrombocytopenia, Atypical Hemolytic uremic syndrome At admission, platelet count of 6. Hem/Onc consulted, Dr. Benites. Help appreciated Type and cross Platelets (2 bags) to be transfused Continue to monitor ID: A: Sepsis Sepsis likely secondary to catheter infection. Febrile (103F), Tachycardic, leukocytosis (WBC 25.1), elevated lactate In ED, patient was given Zosyn 2.25gm and Vancomycin 1gm IV. Lactate increased from 1.6 at admission to 3.2. - Repeat lactate: f/u UA: negative for infection; 2+ protein Influenza- negative Chest xray: no active pulmonary disease Blood cultures (blood and catheter): f/u results Urine culture: f/u results ID consulted, Dr. Gilmore. Help appreciated Surgery consulted, Dr. Quach. Help appreciated - Plan for bedside cath removal. After platelet transfusion, plan to establish dialysis access. ICU consulted. Patient accepted and transferred to ICU Bed 15. Continue management as per ICU team. Medications: - Zosyn 2.25g IV Q8h (active ) - Vancomycin 1gm given in ED - NS bolus given in ED - Reglan 10mg IV Q6h PRN for nausea/vomiting - Tylenol 650mg PO Q6h PRN for fevers/pain Proph DVT: No chemical anticoagulation due to severe thrombocytopenia GI: Protonix 40mg NPO Patient seen and discussed with Attending Jewels Mcghee, PGY-1 <Manuel Sutton - Last Filed: 04/04/18 17:36> Meds - Medications Medications: Current Medications Acetaminophen (Tylenol 325mg Tab) 650 mg PO Q6 PRN PRN Reason: Fever >100.4 F Last Admin: 04/04/18 17:33 Dose: 650 mg Piperacillin Sod/Tazobactam (Sod 2.25 gm/ Sodium Chloride) 100 mls @ 200 mls/ hr IVPB Q8H [place]IL[place] PRN Reason: Protocol Metoclopramide HCl (Reglan) 10 mg IVP Q6H PRN PRN Reason: Nausea/Vomiting Last Admin: 04/04/18 13:45 Dose: 10 mg Pantoprazole Sodium (Protonix Ec Tab) 40 mg PO DAILY [facility] Results - Vital Signs Recent Vital Signs: Last Vital Signs Temp 100.2 F H 04/04/18 16:00 Pulse 144 H 04/04/18 13:59 Resp 20 04/04/18 13:59 BP 163/103 H 04/04/18 13:59 Pulse Ox 99 04/04/18 11:21 - Labs Result Diagrams: 04/04/18 16:20 04/04/18 16:20 Labs: Laboratory Results - last 24 hr 04/04/18 04/04/18 04/04/18 06:50 06:59 06:59 WBC 25.1 H D RBC 4.15 L Hgb 12.7 Hct 38.0 MCV 91.7 MCH 30.6 MCHC 33.4 RDW 14.9 H Plt Count 6 L* MPV 11.7 Neut % (Auto) 77.0 H Lymph % (Auto) 7.6 L [place] % (Auto) 12.1 H Eos % (Auto) 2.6 Baso % (Auto) 0.7 Neut # (Auto) 19.3 H Lymph # (Auto) 1.9 [place] # (Auto) 3.0 H Eos # (Auto) 0.6 Baso # (Auto) 0.2 Neutrophils % (Manual) 81 H Lymphocytes % (Manual) 6 L Monocytes % (Manual) 12 H Eosinophils % (Manual) 1 Platelet Estimate Markedly decreased L Large Platelets Present Giant Platelets Present PT 13.4 H INR 1.2 APTT 32 pO2 31 VBG pH 7.44 H VBG pCO2 24 L VBG HCO3 19.3 VBG Total CO2 17.0 L VBG O2 Sat (Calc) 71.1 H VBG Base Excess -6.0 L VBG Potassium 5.2 Sodium 139.0 Chloride 112.0 H Glucose 87 Lactate 1.6 Potassium Carbon Dioxide Anion Gap BUN Creatinine Est GFR ( Amer) Est GFR (Non-Af Amer) Random Glucose Lactic Acid Calcium Magnesium Total Bilirubin AST ALT Alkaline Phosphatase Total Protein Albumin Globulin Albumin/Globulin Ratio Venous Blood Potassium 5.2 Urine Color Urine Clarity Urine pH Ur Specific [place] Urine Protein Urine Glucose (UA) Urine Ketones Urine Blood Urine Nitrate Urine Bilirubin Urine Urobilinogen Ur Leukocyte Esterase Urine WBC (Auto) Urine RBC (Auto) Urine Bacteria Influenza Typ A,B (EIA) Blood Type Antibody Screen 04/04/18 04/04/18 04/04/18 06:59 07:52 12:11 WBC RBC Hgb Hct MCV MCH MCHC RDW Plt Count MPV Neut % (Auto) Lymph % (Auto) [place] % (Auto) Eos % (Auto) Baso % (Auto) Neut # (Auto) Lymph # (Auto) [place] # (Auto) Eos # (Auto) Baso # (Auto) Neutrophils % (Manual) Lymphocytes % (Manual) Monocytes % (Manual) Eosinophils % (Manual) Platelet Estimate Large Platelets Giant Platelets PT INR APTT pO2 VBG pH VBG pCO2 VBG HCO3 VBG Total CO2 VBG O2 Sat (Calc) VBG Base Excess VBG Potassium Sodium 141 Chloride 111 H Glucose Lactate Potassium 6.0 H Carbon Dioxide 17 L Anion Gap 20 BUN 51 H Creatinine 7.3 H Est GFR ( Amer) 11 Est GFR (Non-Af Amer) 9 Random Glucose 98 Lactic Acid Calcium 9.7 Magnesium 1.9 Total Bilirubin 0.8 AST 51 ALT 60 Alkaline Phosphatase 182 H D Total Protein 7.7 Albumin 4.4 Globulin 3.2 Albumin/Globulin Ratio 1.4 Venous Blood Potassium Urine Color Straw Urine Clarity Clear Urine pH 9.0 Ur Specific [place] 1.009 Urine Protein 2+ H Urine Glucose (UA) Normal Urine Ketones Negative Urine Blood Negative Urine Nitrate Negative Urine Bilirubin Negative Urine Urobilinogen Normal Ur Leukocyte Esterase Neg Urine WBC (Auto) < 1 Urine RBC (Auto) 1 Urine Bacteria Rare Influenza Typ A,B (EIA) Negative for flu a/b Blood Type Antibody Screen 04/04/18 04/04/18 04/04/18 13:13 13:30 16:20 WBC RBC Hgb Hct MCV MCH MCHC RDW Plt Count MPV Neut % (Auto) Lymph % (Auto) [place] % (Auto) Eos % (Auto) Baso % (Auto) Neut # (Auto) Lymph # (Auto) [place] # (Auto) Eos # (Auto) Baso # (Auto) Neutrophils % (Manual) Lymphocytes % (Manual) Monocytes % (Manual) Eosinophils % (Manual) Platelet Estimate Large Platelets Giant Platelets PT INR APTT pO2 VBG pH VBG pCO2 VBG HCO3 VBG Total CO2 VBG O2 Sat (Calc) VBG Base Excess VBG Potassium Sodium Chloride Glucose Lactate Potassium Carbon Dioxide Anion Gap BUN Creatinine Est GFR ( Amer) Est GFR (Non-Af Amer) Random Glucose Lactic Acid 3.2 H 1.5 Calcium Magnesium Total Bilirubin AST ALT Alkaline Phosphatase Total Protein Albumin Globulin Albumin/Globulin Ratio Venous Blood Potassium Urine Color Urine Clarity Urine pH Ur Specific [place] Urine Protein Urine Glucose (UA) Urine Ketones Urine Blood Urine Nitrate Urine Bilirubin Urine Urobilinogen Ur Leukocyte Esterase Urine WBC (Auto) Urine RBC (Auto) Urine Bacteria Influenza Typ A,B (EIA) Blood Type O POSITIVE Antibody Screen Negative 04/04/18 04/04/18 16:20 16:20 WBC 35.6 H RBC 4.00 L Hgb 12.1 Hct 36.3 MCV 90.8 MCH 30.2 MCHC 33.3 RDW 15.1 H Plt Count 5 L* MPV 10.3 Neut % (Auto) 83.4 H Lymph % (Auto) 3.0 L [place] % (Auto) 13.3 H Eos % (Auto) 0.1 Baso % (Auto) 0.2 Neut # (Auto) 29.7 H Lymph # (Auto) 1.1 [place] # (Auto) 4.7 H Eos # (Auto) 0.0 Baso # (Auto) 0.1 Neutrophils % (Manual) Lymphocytes % (Manual) Monocytes % (Manual) Eosinophils % (Manual) Platelet Estimate Large Platelets Giant Platelets PT INR APTT pO2 VBG pH VBG pCO2 VBG HCO3 VBG Total CO2 VBG O2 Sat (Calc) VBG Base Excess VBG Potassium Sodium 141 Chloride 112 H Glucose Lactate Potassium 5.5 H Carbon Dioxide 14 L Anion Gap 21 H BUN 52 H Creatinine 7.7 H* Est GFR ( Amer) 10 Est GFR (Non-Af Amer) 8 Random Glucose 101 Lactic Acid Calcium 9.2 Magnesium Total Bilirubin 1.1 AST 28 ALT 52 Alkaline Phosphatase 153 H Total Protein 6.9 Albumin 4.0 Globulin 3.0 Albumin/Globulin Ratio 1.3 Venous Blood Potassium Urine Color Urine Clarity Urine pH Ur Specific [place] Urine Protein Urine Glucose (UA) Urine Ketones Urine Blood Urine Nitrate Urine Bilirubin Urine Urobilinogen Ur Leukocyte Esterase Urine WBC (Auto) Urine RBC (Auto) Urine Bacteria Influenza Typ A,B (EIA) Blood Type Antibody Screen Attending/Attestation - Attestation I have personally seen and examined this patient.: Yes I have fully participated in the care of the patient.: Yes I have reviewed all pertinent clinical information: Yes Notes (Text): 04/04/18 17:34 patient seen and examined. 31-year-old male with history of atypical HUS/ thrombocytopenia admitted with sepsis/catheter related infection IV antibiotics Hemodialysis Transfuse platelets Dialysis catheter to be changed after platelet transfusion
[2018-04-04 16:32] LABS: BASO # 0.1 K/uL (0.0-0.2); BASO % 0.2 % (0.0-2.0); EOS % 0.1 % (0.0-4.0); HEMOGLOBIN 12.1 g/dL (12.0-18.0); LYMPH # 1.1 K/uL (1.0-4.3); MEAN CELL VOLUME 90.8 fL (80.0-94.0); MEAN CORPUSCULAR HEMOGLOBIN 30.2 pg (27.0-31.0); MEAN CORPUSCULAR HGB CONC 33.3 g/dL (33.0-37.0); MEAN PLATELET VOLUME 10.3 fL (7.2-11.7); MONO # 4.7 K/uL (0.0-0.8); MONO % 13.3 % (0.0-10.0); NEUT # 29.7 K/uL (1.8-7.0); NEUT % 83.4 % (50.0-75.0); RED CELL DISTRIBUTION WIDTH 15.1 % (11.5-14.5); WHITE BLOOD COUNT 35.6 K/uL (4.8-10.8)
[2018-04-04 16:35] LABS: PLATELET COUNT 5 K/uL (130-400)
[2018-04-04 16:56] LABS: CALCIUM 9.2 mg/dl (8.6-10.4)
[2018-04-04] MEDS ORDERED: Piperacillin/Tazobact 2.25 GM in Sodium Chloride 100 ML IVPB SCH (17:00)
[2018-04-04 17:05] LABS: ALB/GLOB RATIO 1.3 (1.0-2.1)
[2018-04-04 18:25] LABS: BANDS 4 % (0-2); LYMPHOCYTE 3 % (20-40); METAMYELOCYTE 1 % (0-0); MONOCYTE 11 % (0-10); NEUTROPHIL 81 % (50-75); PLATELET ESTIMATE MARKEDLY DECREASED (NORMAL); TOTAL CELLS COUNTED 100
[2018-04-04] MEDS: Piperacillin/Tazobact 2.25 GM in Sodium Chloride 100 ML IVPB SCH (21:00)
--- NOTE | 2018-04-04 23:01 | CP.PCM.CON ---
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 The patient has had an extensive work up pertaining to his thrombocytopenia, anemia, and renal failure. 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 His kidney biopsy was complicated by hemorrhage and need for IR embolization. A bone marrow biopsy revealed normocellular marrow with megakaryocytic hyperplasia consistent with peripheral destruction. Plasma exchange was performed at the time with no improvement in thrombocytopenia or microangiopathic hemolysis. [id number] level returned normal and the patient was felt to have atypical HUS. He was started on eculizumab with variability in his renal function from a cr of 3-5. His platelet count remained severely low and has ranged around 10,000. Past medical history: ?atypical HUS Past surgical history: None Family history: Denies known hematologic and oncologic problems Social history: Denies tobacco, alcohol, and illicit drug use. Allergies: NKA Review of systems: All remaining review of systems including HEENT, cardiovascular, respiratory, gastrointestinal, genitourinary, musculoskeletal, dermatologic, neurologic, and psychiatric are negative unless mentioned in the HPI. Past Patient History - Infectious Disease Hx of Infectious Diseases: None - Past Medical History & Family History Past Medical History?: Yes - Past Social History Smoking Status: Never Smoked - CARDIAC Hx Hypertension: Yes - PULMONARY Hx Respiratory Disorders: No - NEUROLOGICAL Hx Neurological Disorder: No - HEENT Hx HEENT Problems: Yes Hx Deafness: (LEFT HEARING AID) Other/Comment: HEARING IMPAIRED - RENAL Hx Chronic Kidney Disease: Yes - ENDOCRINE/METABOLIC Hx Endocrine Disorders: No - HEMATOLOGICAL/ONCOLOGICAL Hx Blood Disorders: Yes Other/Comment: Thrombocytopenia - INTEGUMENTARY Hx Dermatological Problems: No - MUSCULOSKELETAL/RHEUMATOLOGICAL Hx Musculoskeletal Disorders: No - GASTROINTESTINAL Hx Gastrointestinal Disorders: No - GENITOURINARY/GYNECOLOGICAL Hx Genitourinary Disorders: No - PSYCHIATRIC Hx Substance Use: No - SURGICAL HISTORY Hx Surgeries: Yes Other/Comment: peritoneal dialysis catheter 05/2017. right chest wall permacath - ANESTHESIA Hx Anesthesia: Yes Hx Anesthesia Reactions: No Hx Malignant Hyperthermia: No Meds Allergies/Adverse Reactions: Allergies Allergy/AdvReac Type Severity Reaction Status Date / Time aspirin AdvReac ANAPHYLAXIS Verified 04/04/18 06:28 - Medications Medications: Current Medications Acetaminophen (Tylenol 325mg Tab) 650 mg PO Q6 PRN PRN Reason: Fever >100.4 F Last Admin: 04/04/18 17:33 Dose: 650 mg Famotidine (Pepcid) 20 mg IVP DAILY [facility] Piperacillin Sod/Tazobactam (Sod 2.25 gm/ Sodium Chloride) 100 mls @ 200 mls/ hr IVPB Q8H [facility] PRN Reason: Protocol Last Admin: 04/04/18 21:00 Dose: 200 mls/hr Metoclopramide HCl (Reglan) 10 mg IVP Q6H PRN PRN Reason: Nausea/Vomiting Last Admin: 04/04/18 18:57 Dose: 10 mg Physical Exam - Head Exam Head Exam: ATRAUMATIC - Eye Exam Eye Exam: Normal appearance - ENT Exam ENT Exam: Mucous Membranes Dry - Respiratory Exam Respiratory Exam: NORMAL BREATHING PATTERN - Cardiovascular Exam Cardiovascular Exam: +S1, +S2 - GI/Abdominal Exam GI & Abdominal Exam: Normal Bowel Sounds - Extremities Exam Extremities exam: Positive for: normal inspection - Neurological Exam Neurological exam: Oriented x3 - Psychiatric Exam Psychiatric exam: Normal Affect, Normal Mood - Skin Skin Exam: Warm Results - Vital Signs Recent Vital Signs: Last Vital Signs Temp 99 F 04/04/18 19:00 Pulse 88 04/04/18 19:03 Resp 18 04/04/18 19:03 BP 147/91 H 04/04/18 19:03 Pulse Ox 100 04/04/18 19:03 - Labs Result Diagrams: 04/04/18 16:20 04/04/18 16:20 Labs: Laboratory Results - last 24 hr 04/04/18 04/04/18 04/04/18 06:50 06:59 06:59 WBC 25.1 H D RBC 4.15 L Hgb 12.7 Hct 38.0 MCV 91.7 MCH 30.6 MCHC 33.4 RDW 14.9 H Plt Count 6 L* MPV 11.7 Neut % (Auto) 77.0 H Lymph % (Auto) 7.6 L [place] % (Auto) 12.1 H Eos % (Auto) 2.6 Baso % (Auto) 0.7 Neut # (Auto) 19.3 H Lymph # (Auto) 1.9 [place] # (Auto) 3.0 H Eos # (Auto) 0.6 Baso # (Auto) 0.2 Neutrophils % (Manual) 81 H Band Neutrophils % Lymphocytes % (Manual) 6 L Monocytes % (Manual) 12 H Eosinophils % (Manual) 1 Metamyelocytes % Platelet Estimate Markedly decreased L Large Platelets Present Giant Platelets Present PT 13.4 H INR 1.2 APTT 32 pO2 31 VBG pH 7.44 H VBG pCO2 24 L VBG HCO3 19.3 VBG Total CO2 17.0 L VBG O2 Sat (Calc) 71.1 H VBG Base Excess -6.0 L VBG Potassium 5.2 Sodium 139.0 Chloride 112.0 H Glucose 87 Lactate 1.6 Potassium Carbon Dioxide Anion Gap BUN Creatinine Est GFR ( Amer) Est GFR (Non-Af Amer) Random Glucose Lactic Acid Calcium Magnesium Total Bilirubin AST ALT Alkaline Phosphatase Total Protein Albumin Globulin Albumin/Globulin Ratio Venous Blood Potassium 5.2 Urine Color Urine Clarity Urine pH Ur Specific [place] Urine Protein Urine Glucose (UA) Urine Ketones Urine Blood Urine Nitrate Urine Bilirubin Urine Urobilinogen Ur Leukocyte Esterase Urine WBC (Auto) Urine RBC (Auto) Urine Bacteria Influenza Typ A,B (EIA) Blood Type Antibody Screen 04/04/18 04/04/18 04/04/18 06:59 07:52 12:11 WBC RBC Hgb Hct MCV MCH MCHC RDW Plt Count MPV Neut % (Auto) Lymph % (Auto) [place] % (Auto) Eos % (Auto) Baso % (Auto) Neut # (Auto) Lymph # (Auto) [place] # (Auto) Eos # (Auto) Baso # (Auto) Neutrophils % (Manual) Band Neutrophils % Lymphocytes % (Manual) Monocytes % (Manual) Eosinophils % (Manual) Metamyelocytes % Platelet Estimate Large Platelets Giant Platelets PT INR APTT pO2 VBG pH VBG pCO2 VBG HCO3 VBG Total CO2 VBG O2 Sat (Calc) VBG Base Excess VBG Potassium Sodium 141 Chloride 111 H Glucose Lactate Potassium 6.0 H Carbon Dioxide 17 L Anion Gap 20 BUN 51 H Creatinine 7.3 H Est GFR ( Amer) 11 Est GFR (Non-Af Amer) 9 Random Glucose 98 Lactic Acid Calcium 9.7 Magnesium 1.9 Total Bilirubin 0.8 AST 51 ALT 60 Alkaline Phosphatase 182 H D Total Protein 7.7 Albumin 4.4 Globulin 3.2 Albumin/Globulin Ratio 1.4 Venous Blood Potassium Urine Color Straw Urine Clarity Clear Urine pH 9.0 Ur Specific [place] 1.009 Urine Protein 2+ H Urine Glucose (UA) Normal Urine Ketones Negative Urine Blood Negative Urine Nitrate Negative Urine Bilirubin Negative Urine Urobilinogen Normal Ur Leukocyte Esterase Neg Urine WBC (Auto) < 1 Urine RBC (Auto) 1 Urine Bacteria Rare Influenza Typ A,B (EIA) Negative for flu a/b Blood Type Antibody Screen 04/04/18 04/04/18 04/04/18 13:13 13:30 16:20 WBC RBC Hgb Hct MCV MCH MCHC RDW Plt Count MPV Neut % (Auto) Lymph % (Auto) [place] % (Auto) Eos % (Auto) Baso % (Auto) Neut # (Auto) Lymph # (Auto) [place] # (Auto) Eos # (Auto) Baso # (Auto) Neutrophils % (Manual) Band Neutrophils % Lymphocytes % (Manual) Monocytes % (Manual) Eosinophils % (Manual) Metamyelocytes % Platelet Estimate Large Platelets Giant Platelets PT INR APTT pO2 VBG pH VBG pCO2 VBG HCO3 VBG Total CO2 VBG O2 Sat (Calc) VBG Base Excess VBG Potassium Sodium Chloride Glucose Lactate Potassium Carbon Dioxide Anion Gap BUN Creatinine Est GFR ( Amer) Est GFR (Non-Af Amer) Random Glucose Lactic Acid 3.2 H 1.5 Calcium Magnesium Total Bilirubin AST ALT Alkaline Phosphatase Total Protein Albumin Globulin Albumin/Globulin Ratio Venous Blood Potassium Urine Color Urine Clarity Urine pH Ur Specific [place] Urine Protein Urine Glucose (UA) Urine Ketones Urine Blood Urine Nitrate Urine Bilirubin Urine Urobilinogen Ur Leukocyte Esterase Urine WBC (Auto) Urine RBC (Auto) Urine Bacteria Influenza Typ A,B (EIA) Blood Type O POSITIVE Antibody Screen Negative 04/04/18 04/04/18 16:20 16:20 WBC 35.6 H RBC 4.00 L Hgb 12.1 Hct 36.3 MCV 90.8 MCH 30.2 MCHC 33.3 RDW 15.1 H Plt Count 5 L* MPV 10.3 Neut % (Auto) 83.4 H Lymph % (Auto) 3.0 L [place] % (Auto) 13.3 H Eos % (Auto) 0.1 Baso % (Auto) 0.2 Neut # (Auto) 29.7 H Lymph # (Auto) 1.1 [place] # (Auto) 4.7 H Eos # (Auto) 0.0 Baso # (Auto) 0.1 Neutrophils % (Manual) 81 H Band Neutrophils % 4 H Lymphocytes % (Manual) 3 L Monocytes % (Manual) 11 H Eosinophils % (Manual) Metamyelocytes % 1 H Platelet Estimate Markedly decreased L Large Platelets Giant Platelets PT INR APTT pO2 VBG pH VBG pCO2 VBG HCO3 VBG Total CO2 VBG O2 Sat (Calc) VBG Base Excess VBG Potassium Sodium 141 Chloride 112 H Glucose Lactate Potassium 5.5 H Carbon Dioxide 14 L Anion Gap 21 H BUN 52 H Creatinine 7.7 H* Est GFR ( Amer) 10 Est GFR (Non-Af Amer) 8 Random Glucose 101 Lactic Acid Calcium 9.2 Magnesium Total Bilirubin 1.1 AST 28 ALT 52 Alkaline Phosphatase 153 H Total Protein 6.9 Albumin 4.0 Globulin 3.0 Albumin/Globulin Ratio 1.3 Venous Blood Potassium Urine Color Urine Clarity Urine pH Ur Specific [place] Urine Protein Urine Glucose (UA) Urine Ketones Urine Blood Urine Nitrate Urine Bilirubin Urine Urobilinogen Ur Leukocyte Esterase Urine WBC (Auto) Urine RBC (Auto) Urine Bacteria Influenza Typ A,B (EIA) Blood Type Antibody Screen Assessment & Plan (1) Thrombocytopenia Assessment and Plan: secondary to atypical HUS to receive platelet transfusion today prior to dialysis access replacement Status: Chronic (2) Elevated WBC count Assessment and Plan: secondary to infection on antibiotics Status: Chronic (3) Anemia Assessment and Plan: anemia of CKD EPO per renal Status: Acute (4) Atypical hemolytic uremic syndrome Assessment and Plan: outpatient treatment Thank you for this intresting consult. Status: Acute
[2018-04-05] MEDS ORDERED: Morphine 4 MG/ML VIAL IVP STA (02:44)
[2018-04-05] MEDS: Piperacillin/Tazobact 2.25 GM in Sodium Chloride 100 ML IVPB SCH ×3 (04:24→19:55)
[2018-04-05 06:13] LABS: BASO # 0.1 K/uL (0.0-0.2); NEUT % 83.3 % (50.0-75.0)
[2018-04-05 06:33] LABS: ALB/GLOB RATIO 1.4 (1.0-2.1); ALBUMIN 4.3 g/dL (3.5-5.0); CALCIUM 9.2 mg/dl (8.6-10.4)
[2018-04-05 06:35] LABS: BASO % 0.2 % (0.0-2.0); HEMOGLOBIN 11.5 g/dL (12.0-18.0); LYMPH # 2.3 K/uL (1.0-4.3); LYMPH % 6.6 % (20.0-40.0); MEAN CELL VOLUME 91.5 fL (80.0-94.0); MEAN CORPUSCULAR HEMOGLOBIN 30.5 pg (27.0-31.0); MEAN CORPUSCULAR HGB CONC 33.3 g/dL (33.0-37.0); MEAN PLATELET VOLUME 13.6 fL (7.2-11.7); MONO # 3.4 K/uL (0.0-0.8); MONO % 9.9 % (0.0-10.0); NEUT # 29.1 K/uL (1.8-7.0); RBC 3.78 Mil/uL (4.40-5.90); RED CELL DISTRIBUTION WIDTH 15.5 % (11.5-14.5)
[2018-04-05 07:05] LABS: PLATELET COUNT 3 K/uL (130-400)
[2018-04-05 08:33] LABS: ANISOCYTOSIS SLIGHT; LYMPHOCYTE 3 % (20-40); MONOCYTE 6 % (0-10); NEUTROPHIL 91 % (50-75); PLATELET ESTIMATE MARKEDLY DECREASED (NORMAL); TOTAL CELLS COUNTED 100
[2018-04-05 08:35] LABS: BURR CELLS SLIGHT; GIANT PLATELETS PRESENT; LARGE PLATELETS PRESENT
[2018-04-05] MEDS ORDERED: Pantoprazole 40 mg EC Tab PO SCH (10:00)
--- NOTE | 2018-04-05 13:12 | CARD ---
APPROVED REPORT EKG Measurement Heart [id number] <Conclusion> Sinus tachycardia Otherwise normal ECG
--- NOTE | 2018-04-05 13:12 | CARD ---
APPROVED REPORT EKG Measurement Heart [id number] <Conclusion> Poor data quality, interpretation may be adversely affected Normal sinus rhythm Normal ECG
--- NOTE | 2018-04-05 13:51 | CP.PCM.PN ---
Subjective - Date & Time of Evaluation Date of Evaluation: 04/05/18 Time of Evaluation: 13:49 - Subjective Subjective: no complaints on HD noted low platelets noted +blood culture Objective - Vital Signs/Intake and Output Vital Signs (last 24 hours): Temp Pulse Resp BP Pulse Ox 98.6 F 67 15 179/138 H 100 04/05/18 12:32 04/05/18 13:17 04/05/18 13:17 04/05/18 13:32 04/05/18 13:17 Intake and Output: 04/05/18 04/05/18 06:59 18:59 Intake Total 399 0 Output Total 1000 100 Balance -601 -100 - Medications Medications: Current Medications Acetaminophen (Tylenol 325mg Tab) 650 mg PO Q6 PRN PRN Reason: Fever >100.4 F Last Admin: 04/05/18 11:45 Dose: 650 mg Famotidine (Pepcid) 20 mg IVP DAILY [facility] Last Admin: 04/05/18 10:14 Dose: 20 mg Piperacillin Sod/Tazobactam (Sod 2.25 gm/ Sodium Chloride) 100 mls @ 200 mls/ hr IVPB Q8H [facility] PRN Reason: Protocol Last Admin: 04/05/18 04:24 Dose: 200 mls/hr Vancomycin HCl (Vancomycin 1gm In Normal Saline Addvantage) 1 gm in 250 mls @ 167 mls/hr IVPB STAT STA PRN Reason: Protocol Stop: 04/05/18 15:12 Metoclopramide HCl (Reglan) 10 mg IVP Q6H PRN PRN Reason: Nausea/Vomiting Last Admin: 04/05/18 12:21 Dose: 10 mg - Labs Labs: 04/05/18 06:01 04/05/18 06:01 PT 13.4 SECONDS (9.7-12.2) H 04/04/18 06:59 INR 1.2 04/04/18 06:59 APTT 32 SECONDS (21-34) 04/04/18 06:59 - Constitutional Appears: Non-toxic, Chronically Ill - Head Exam Head Exam: ATRAUMATIC, NORMAL INSPECTION - ENT Exam Additional comments: hard of hearing - Neck Exam Neck Exam: Full ROM. absent: Lymphadenopathy, Thyromegaly - Respiratory Exam Respiratory Exam: Decreased Breath Sounds. absent: Accessory Muscle Use - Cardiovascular Exam Cardiovascular Exam: REGULAR RHYTHM. absent: Rubs - GI/Abdominal Exam GI & Abdominal Exam: Soft. absent: Tenderness - Extremities Exam Extremities Exam: absent: Pedal Edema Assessment and Plan - Assessment and Plan (Free Text) Assessment: catheter infection esrd severe thrombocytopenia treat with AB HD today with catheter target AB when cultures come back antihypertensives
--- NOTE | 2018-04-05 14:19 | CP.PCM.CON ---
History of Present Illness - History of Present Illness History of Present Illness: dictated Past Patient History - Infectious Disease Hx of Infectious Diseases: None - Past Medical History & Family History Past Medical History?: Yes - Past Social History Smoking Status: Never Smoked - CARDIAC Hx Hypertension: Yes - PULMONARY Hx Respiratory Disorders: No - NEUROLOGICAL Hx Neurological Disorder: No - HEENT Hx HEENT Problems: Yes Hx Deafness: (LEFT HEARING AID) Other/Comment: HEARING IMPAIRED - RENAL Hx Chronic Kidney Disease: Yes - ENDOCRINE/METABOLIC Hx Endocrine Disorders: No - HEMATOLOGICAL/ONCOLOGICAL Hx Blood Disorders: Yes Other/Comment: Thrombocytopenia - INTEGUMENTARY Hx Dermatological Problems: No - MUSCULOSKELETAL/RHEUMATOLOGICAL Hx Musculoskeletal Disorders: No - GASTROINTESTINAL Hx Gastrointestinal Disorders: No - GENITOURINARY/GYNECOLOGICAL Hx Genitourinary Disorders: No - PSYCHIATRIC Hx Substance Use: No - SURGICAL HISTORY Hx Surgeries: Yes Other/Comment: peritoneal dialysis catheter 05/2017. right chest wall permacath - ANESTHESIA Hx Anesthesia: Yes Hx Anesthesia Reactions: No Hx Malignant Hyperthermia: No Meds Allergies/Adverse Reactions: Allergies Allergy/AdvReac Type Severity Reaction Status Date / Time aspirin AdvReac ANAPHYLAXIS Verified 04/04/18 06:28 - Medications Medications: Current Medications Acetaminophen (Tylenol 325mg Tab) 650 mg PO Q6 PRN PRN Reason: Fever >100.4 F Last Admin: 04/05/18 11:45 Dose: 650 mg Amlodipine Besylate (Norvasc) 10 mg PO DAILY [facility] Famotidine (Pepcid) 20 mg IVP DAILY [facility] Last Admin: 04/05/18 10:14 Dose: 20 mg Piperacillin Sod/Tazobactam (Sod 2.25 gm/ Sodium Chloride) 100 mls @ 200 mls/ hr IVPB Q8H GUILLE PRN Reason: Protocol Last Admin: 04/05/18 04:24 Dose: 200 mls/hr Vancomycin/Sodium Chloride (Vancomycin 1 Gm/Ns 200 Ml) 1 gm in 200 mls @ 133.333 mls/hr IVPB ONCE ONE PRN Reason: Protocol Stop: 04/05/18 15:59 Gentamicin Sulfate 80 mg/ (Sodium Chloride) 102 mls @ 100 mls/hr IVPB ONCE ONE PRN Reason: Protocol Stop: 04/05/18 17:01 Metoclopramide HCl (Reglan) 10 mg IVP Q6H PRN PRN Reason: Nausea/Vomiting Last Admin: 04/05/18 12:21 Dose: 10 mg Results - Vital Signs Recent Vital Signs: Last Vital Signs Temp 98.6 F 04/05/18 12:32 Pulse 98 H 04/05/18 14:02 Resp 10 L 04/05/18 14:02 BP 174/117 H 04/05/18 14:02 Pulse Ox 98 04/05/18 14:02 - Labs Result Diagrams: 04/05/18 06:01 04/05/18 06:01 Labs: Laboratory Results - last 24 hr 04/04/18 04/04/18 04/04/18 13:30 16:20 16:20 WBC 35.6 H RBC 4.00 L Hgb 12.1 Hct 36.3 MCV 90.8 MCH 30.2 MCHC 33.3 RDW 15.1 H Plt Count 5 L* MPV 10.3 Neut % (Auto) 83.4 H Lymph % (Auto) 3.0 L [place] % (Auto) 13.3 H Eos % (Auto) 0.1 Baso % (Auto) 0.2 Neut # (Auto) 29.7 H Lymph # (Auto) 1.1 [place] # (Auto) 4.7 H Eos # (Auto) 0.0 Baso # (Auto) 0.1 Neutrophils % (Manual) 81 H Band Neutrophils % 4 H Lymphocytes % (Manual) 3 L Monocytes % (Manual) 11 H Metamyelocytes % 1 H Platelet Estimate Markedly decreased L Large Platelets Giant Platelets Anisocytosis (manual) Alicia Cells Sodium Potassium Chloride Carbon Dioxide Anion Gap BUN Creatinine Est GFR ( Amer) Est GFR (Non-Af Amer) Random Glucose Lactic Acid 1.5 Calcium Total Bilirubin AST ALT Alkaline Phosphatase Total Protein Albumin Globulin Albumin/Globulin Ratio Random Vancomycin Blood Type O POSITIVE Antibody Screen Negative 04/04/18 04/05/18 04/05/18 16:20 06:01 06:01 WBC 35.0 H RBC 3.78 L Hgb 11.5 L Hct 34.6 L MCV 91.5 MCH 30.5 MCHC 33.3 RDW 15.5 H Plt Count 3 L* MPV 13.6 H Neut % (Auto) 83.3 H Lymph % (Auto) 6.6 L [place] % (Auto) 9.9 Eos % (Auto) 0.0 Baso % (Auto) 0.2 Neut # (Auto) 29.1 H Lymph # (Auto) 2.3 [place] # (Auto) 3.4 H Eos # (Auto) 0.0 Baso # (Auto) 0.1 Neutrophils % (Manual) 91 H Band Neutrophils % Lymphocytes % (Manual) 3 L Monocytes % (Manual) 6 Metamyelocytes % Platelet Estimate Markedly decreased L Large Platelets Present Giant Platelets Present Anisocytosis (manual) Slight [place] Cells Slight Sodium 141 143 Potassium 5.5 H 5.2 Chloride 112 H 112 H Carbon Dioxide 14 L 17 L Anion Gap 21 H 20 BUN 52 H 51 H Creatinine 7.7 H* 7.7 H* Est GFR ( Amer) 10 10 Est GFR (Non-Af Amer) 8 8 Random Glucose 101 91 Lactic Acid Calcium 9.2 9.2 Total Bilirubin 1.1 1.0 AST 28 23 ALT 52 41 Alkaline Phosphatase 153 H 120 Total Protein 6.9 7.4 Albumin 4.0 4.3 Globulin 3.0 3.1 Albumin/Globulin Ratio 1.3 1.4 Random Vancomycin Blood Type Antibody Screen 04/05/18 06:01 WBC RBC Hgb Hct MCV MCH MCHC RDW Plt Count MPV Neut % (Auto) Lymph % (Auto) [place] % (Auto) Eos % (Auto) Baso % (Auto) Neut # (Auto) Lymph # (Auto) [place] # (Auto) Eos # (Auto) Baso # (Auto) Neutrophils % (Manual) Band Neutrophils % Lymphocytes % (Manual) Monocytes % (Manual) Metamyelocytes % Platelet Estimate Large Platelets Giant Platelets Anisocytosis (manual) Alicia Cells Sodium Potassium Chloride Carbon Dioxide Anion Gap BUN Creatinine Est GFR ( Amer) Est GFR (Non-Af Amer) Random Glucose Lactic Acid Calcium Total Bilirubin AST ALT Alkaline Phosphatase Total Protein Albumin Globulin Albumin/Globulin Ratio Random Vancomycin 13.4 Blood Type Antibody Screen
[2018-04-05] MEDS ORDERED: Vancomycin 1 gm/NS 200 ml 1 GM/200 ML BAG IVPB ONE (14:30)
--- NOTE | 2018-04-05 14:56 | CP.PCM.PN ---
Subjective - Date & Time of Evaluation Date of Evaluation: 04/05/18 Time of Evaluation: 14:50 - Subjective Subjective: Medical Attending Note: Patient in middle of dialysis. Patient having rigors. Patient reports nausea and vomitting. Patient reports he feels hungry. Objective - Vital Signs/Intake and Output Vital Signs (last 24 hours): Temp Pulse Resp BP Pulse Ox 98.6 F 98 H 10 L 174/117 H 98 04/05/18 12:32 04/05/18 14:02 04/05/18 14:02 04/05/18 14:02 04/05/18 14:02 Intake and Output: 04/05/18 04/05/18 06:59 18:59 Intake Total 399 0 Output Total 1000 100 Balance -601 -100 - Medications Medications: Current Medications Acetaminophen (Tylenol 325mg Tab) 650 mg PO Q6 PRN PRN Reason: Fever >100.4 F Last Admin: 04/05/18 11:45 Dose: 650 mg Amlodipine Besylate (Norvasc) 10 mg PO DAILY [facility] Famotidine (Pepcid) 20 mg IVP DAILY [facility] Last Admin: 04/05/18 10:14 Dose: 20 mg Piperacillin Sod/Tazobactam (Sod 2.25 gm/ Sodium Chloride) 100 mls @ 200 mls/ hr IVPB Q8H [facility] PRN Reason: Protocol Last Admin: 04/05/18 04:24 Dose: 200 mls/hr Vancomycin/Sodium Chloride (Vancomycin 1 Gm/Ns 200 Ml) 1 gm in 200 mls @ 133.333 mls/hr IVPB ONCE ONE PRN Reason: Protocol Stop: 04/05/18 15:59 Gentamicin Sulfate 80 mg/ (Sodium Chloride) 102 mls @ 100 mls/hr IVPB ONCE ONE PRN Reason: Protocol Stop: 04/05/18 17:01 Metoclopramide HCl (Reglan) 10 mg IVP Q6H PRN PRN Reason: Nausea/Vomiting Last Admin: 04/05/18 12:21 Dose: 10 mg - Labs Labs: 04/05/18 06:01 04/05/18 06:01 PT 13.4 SECONDS (9.7-12.2) H 04/04/18 06:59 INR 1.2 04/04/18 06:59 APTT 32 SECONDS (21-34) 04/04/18 06:59 Attending/Attestation - Attestation I have personally seen and examined this patient.: Yes I have fully participated in the care of the patient.: Yes I have reviewed all pertinent clinical information, including history, physical exam and plan: Yes Notes (Text): Dialysis catheter not removed secondary to low thrombocytopenia and risk of bleeding. Patient receiving dialysis today and due to transfusion 1 unit of platelets today. Patient on Zosyn, Vancomycin, and Gentamcin IV. Assessment/plan (1) Sepsis Bacteremia Infected Dialysis Catheter Assessment and Plan: * Sepsis likely secondary to catheter infection and bacterenmia * Criteria: Febrile (103F), Tachycardic, leukocytosis (WBC 25.1), elevated lactate * In ED, patient was given Zosyn 2.25gm and Vancomycin 1gm IV. * Lactate increased from 1.6 at admission to 3.2--> lactate: 1.5 * UA: negative for infection; 2+ protein; urine culture (03/31) penidng * Influenza- negative * Chest xray: no active pulmonary disease * Blood cultures (blood and catheter) (04/04/18): gram positive cocci X2 * Tylenol 650mg PO Q6H >100.4F * ID consulted, Dr. Gilmore. Help appreciated * Gentamicin Sulfate 80mg IVPB once * Zosyn 2.25g IVPB Q8H * Vancomycin 1 gram IV X1 * Surgery consulted, Dr. Quach. Help appreciated * ICU consulted. Patient accepted and transferred to ICU Bed 15 on 04/04/18. Further management as per ICU team. Medications: * Reglan 10mg IV Q6h PRN for nausea/vomiting * Tylenol 650mg PO Q6h PRN for fevers/pain * Cooling blanket ordered but not available Status: Acute (2) ESRD (end stage renal disease) on dialysis Assessment and Plan: * Dialysis schedule: TTS * Scheduled for Dialysis today, as patient missed two sessions. * Nephrology consulted, Dr. Villasenor. Help appreciated * Sepsis likely secondary to catheter infection. Will likely be removed and replaced. Status: Acute (3) Hyperkalemia Assessment and Plan: * Secondary to ESRD * EKG: sinus tachycardia; no ST or T wave changes. * Recieving dialysis today * Duonebs and one dose of kayexalate given. * Continue to monitor electrolytes. * lowered Status: Acute (4) Severe thrombocytopenia Assessment and Plan: * Hem/Onc consulted, Dr. Benites. Help appreciated * At admission, platelet count of 6-->3 * Received 1 unit over night; going to receive 1 unit of platelets * Type and cross * Continue to monitor * patient diagnosed with atypical HUS; on solaris; awaiting evaluation by subspecialist as outpatient but limited secondary to affordability * possible sepsis to consider Status: Acute (5) Atypical hemolytic uremic syndrome Assessment and Plan: * Hx of atypical HUS and thrombocytopenia. * Heme/Onc consulted, Dr. Benites. Help appreciated. * Renal biopsy confirmed in prior hospitalization noted in the EMR Status: Acute (6) Hypertension Assessment and Plan: * Home medication: Clonidine 0.2mg PO BID * Norvasc 10mg PO daily Status: Chronic (7) Headache Assessment and Plan: * Head CT: no mass, hemorrhage, or acute infarct identified. mild cerebral atrophy. Status: Acute (8) Prophylactic measure Assessment and Plan: * DVT: No chemical anticoagulation due to severe thrombocytopenia * GI: Pepcid 20mg Iv q daily Status: Acute
--- NOTE | 2018-04-05 15:40 | CP.PCM.PN ---
Subjective - Date & Time of Evaluation Date of Evaluation: 04/05/18 Time of Evaluation: 09:40 - Subjective Subjective: Surgery- Dr. Quach Patient seen and examined at bedside. denies acute complaints. Left permacath in place. Received PLT last night, repeat PLT 3 Objective - Vital Signs/Intake and Output Vital Signs (last 24 hours): Temp Pulse Resp BP Pulse Ox 98.4 F 111 H 20 161/118 H 99 04/05/18 15:21 04/05/18 15:21 04/05/18 15:21 04/05/18 15:21 04/05/18 15:17 Intake and Output: 04/05/18 04/05/18 06:59 18:59 Intake Total 399 0 Output Total 1000 450 Balance -601 -450 - Medications Medications: Current Medications Acetaminophen (Tylenol 325mg Tab) 650 mg PO Q6 PRN PRN Reason: Fever >100.4 F Last Admin: 04/05/18 11:45 Dose: 650 mg Amlodipine Besylate (Norvasc) 10 mg PO DAILY [facility] Famotidine (Pepcid) 20 mg IVP DAILY [facility] Last Admin: 04/05/18 10:14 Dose: 20 mg Piperacillin Sod/Tazobactam (Sod 2.25 gm/ Sodium Chloride) 100 mls @ 200 mls/ hr IVPB Q8H [facility]ILLE PRN Reason: Protocol Last Admin: 04/05/18 04:24 Dose: 200 mls/hr Vancomycin/Sodium Chloride (Vancomycin 1 Gm/Ns 200 Ml) 1 gm in 200 mls @ 133.333 mls/hr IVPB ONCE ONE PRN Reason: Protocol Stop: 04/05/18 15:59 Gentamicin Sulfate 80 mg/ (Sodium Chloride) 102 mls @ 100 mls/hr IVPB ONCE ONE PRN Reason: Protocol Stop: 04/05/18 17:01 Metoclopramide HCl (Reglan) 10 mg IVP Q6H PRN PRN Reason: Nausea/Vomiting Last Admin: 04/05/18 12:21 Dose: 10 mg - Labs Labs: 04/05/18 06:01 04/05/18 06:01 PT 13.4 SECONDS (9.7-12.2) H 04/04/18 06:59 INR 1.2 04/04/18 06:59 APTT 32 SECONDS (21-34) 04/04/18 06:59 - Constitutional Appears: No Acute Distress, Chronically Ill - Eye Exam Eye Exam: EOMI. absent: Scleral icterus - ENT Exam Additional comments: Hearing aid in place - Respiratory Exam Respiratory Exam: NORMAL BREATHING PATTERN. absent: Accessory Muscle Use, Respiratory Distress - Cardiovascular Exam Cardiovascular Exam: +S1, +S2. absent: Bradycardia, Tachycardia - GI/Abdominal Exam GI & Abdominal Exam: Soft. absent: Firm, Guarding, Rigid, Tenderness - Neurological Exam Neurological Exam: Alert, Awake, Oriented x3 - Psychiatric Exam Psychiatric exam: Normal Affect - Skin Skin Exam: Intact, Warm Assessment and Plan - Assessment and Plan (Free Text) Assessment: 32M bacteremia, thrombocytopenia, CKD; requring dialysis access Plan: - thrombocytopneia significant to allow procedure at this time - Dialysis via current port for now - when thrombocytopenia resolves, plan to remove permacath and place shiley - no surgical intervention at this time - case discussed with ICU attending - discussed w/ Dr. Quach surgical attending [id number]
--- NOTE | 2018-04-05 15:46 | CP.CCUPN ---
<Jewels Mcghee - Last Filed: 04/05/18 15:43> CCU Subjective - Physician Review Subjective (Free Text): Patient seen and examined at bedside. No overnight events reported. Patient still complains of generalized malaise, headache, nausea, and vomiting. CCU Objective - Vital Signs / Intake & Output Vital Signs (Last 4 hours): Vital Signs Temp Pulse Pulse Resp BP BP Pulse Ox 04/05/18 15:21 98.4 F 111 H 20 161/118 H 04/05/18 15:17 89 13 161/118 H 99 04/05/18 15:06 98.4 F 107 H 20 152/99 H 04/05/18 15:03 152/99 H 04/05/18 15:02 97 H 15 152/99 H 98 04/05/18 15:00 83 17 99 04/05/18 14:51 98.6 F 107 H 25 H 150/100 H 04/05/18 14:47 87 16 150/100 H 97 04/05/18 14:32 85 11 L 149/111 H 97 04/05/18 14:22 149/111 H 04/05/18 14:17 84 19 150/108 H 94 L 04/05/18 14:02 98 H 10 L 174/117 H 174/117 H 98 04/05/18 14:00 82 12 99 04/05/18 13:47 72 14 186/119 H 99 04/05/18 13:32 90 14 179/138 H 179/138 H 99 04/05/18 13:30 93 H 16 190/115 H 04/05/18 13:17 67 15 183/112 H 183/112 H 100 04/05/18 13:02 69 16 193/110 H 193/110 H 100 04/05/18 13:00 72 15 100 04/05/18 12:47 75 15 191/115 H 191/115 H 99 04/05/18 12:32 98.6 F 73 73 15 193/121 H 193/121 H 99 04/05/18 12:23 98.6 F 73 20 191/121 H 04/05/18 12:20 80 14 178/117 H 99 04/05/18 12:00 98.8 F 76 16 99 Intake and Output (Last 8hrs): Intake & Output 04/05/18 04/05/18 04/05/18 06:59 14:59 22:59 Intake Total 100 0 0 Output Total 1000 100 350 Balance -900 -100 -350 Weight 184 lb 4.8 oz Intake: Intake, IV Amount 100 Left Antecubital 100 Oral 0 0 0 Blood Product 0 Apheresis Plts Acda Lr 0 Irr Unit [id number] Output: Urine 1000 300 Urine, Voided 1000 300 Emesis 0 100 50 Other: # Bowel Movements 0 - Physical Exam Narrative Physical Exam (Free Text): - Constitutional Appears: Toxic, In Acute Distress - Head Exam Head Exam: ATRAUMATIC, NORMAL INSPECTION - Eye Exam Eye Exam: EOMI, Normal appearance, PERRL - ENT Exam ENT Exam: Mucous Membranes Moist - Respiratory Exam Respiratory Exam: Clear to Auscultation Bilateral. absent: Rales, Rhonchi, Wheezes - Cardiovascular Exam Cardiovascular Exam: Tachycardia, +S1, +S2 - GI/Abdominal Exam GI & Abdominal Exam: Normal Bowel Sounds, Soft, Tenderness (mild epigastric tenderness). absent: Distended, Firm Additional comments: well healed scar s/p previous peritoneal dialysis - Extremities Exam Extremities exam: Positive for: normal inspection, pedal pulses present. Negative for: pedal edema, tenderness - Back Exam Back exam: NORMAL INSPECTION. absent: CVA tenderness (L), CVA tenderness (R) - Neurological Exam Neurological exam: Alert, Oriented x3 - Psychiatric Exam Psychiatric exam: Normal Mood - Skin Skin Exam: Dry, Intact, Warm Additional comments: Permacath right upper chest- mild erythema noted; tenderness to palpation. No discharged noted. No petechaie or rashes noted - Medications Active Medications: Active Medications Generic Name Dose Route Start Last Admin Trade Name Freq PRN Reason Stop Dose Admin Acetaminophen 650 mg 04/04/18 12:07 04/05/18 11:45 Tylenol 325mg Tab PO 650 mg Q6 PRN Administration Fever >100.4 F Amlodipine Besylate 10 mg 04/05/18 14:00 Norvasc PO DAILY GUILLE Famotidine 20 mg 04/05/18 10:00 04/05/18 10:14 Pepcid IVP 20 mg DAILY GUILLE Administration Piperacillin Sod/Tazobactam 100 mls @ 200 mls/hr 04/04/18 20:00 04/05/18 04: 24 Sod 2.25 gm/ Sodium Chloride IVPB 200 mls/hr Q8H GUILLE Administration Protocol Vancomycin/Sodium Chloride 1 gm in 200 mls @ 133.333 mls/hr 04/05/18 14:30 Vancomycin 1 Gm/Ns 200 Ml IVPB 04/05/18 15:59 ONCE ONE Protocol Gentamicin Sulfate 80 mg/ 102 mls @ 100 mls/hr 04/05/18 16:00 Sodium Chloride IVPB 04/05/18 17:01 ONCE ONE Protocol Metoclopramide HCl 10 mg 04/04/18 13:31 04/05/18 12:21 Reglan IVP 10 mg Q6H PRN Administration Nausea/Vomiting - Patient Studies Lab Studies: Microbiology Studies 04/04/18 13:31 S.aureus & Coag-Neg Staph PNA FISH - Final Blood Blood Culture - Preliminary Gram Positive Cocci Gram Stain - Final 04/04/18 13:31 Blood Culture - Preliminary Blood Gram Positive Cocci Gram Stain - Final 04/04/18 12:11 Urine Culture - Final Urine,Turner No Growth (<1,000 CFU/ML) Lab Studies 04/05/18 04/05/18 04/05/18 Range/Units 14:16 06:01 06:01 WBC (4.8-10.8) K/uL RBC (4.40-5.90) Mil/uL Hgb (12.0-18.0) g/dL Hct (35.0-51.0) % MCV (80.0-94.0) fL MCH (27.0-31.0) pg MCHC (33.0-37.0) g/dL RDW (11.5-14.5) % Plt Count (130-400) K/uL MPV (7.2-11.7) fL Neut % (Auto) (50.0-75.0) % Lymph % (Auto) (20.0-40.0) % [place] % (Auto) (0.0-10.0) % Eos % (Auto) (0.0-4.0) % Baso % (Auto) (0.0-2.0) % Neut # (Auto) (1.8-7.0) K/uL Lymph # (Auto) (1.0-4.3) K/uL [place] # (Auto) (0.0-0.8) K/uL Eos # (Auto) (0.0-0.7) K/uL Baso # (Auto) (0.0-0.2) K/uL Neutrophils % (Manual) (50-75) % Band Neutrophils % (0-2) % Lymphocytes % (Manual) (20-40) % Monocytes % (Manual) (0-10) % Metamyelocytes % (0-0) % Platelet Estimate (NORMAL) Large Platelets Giant Platelets Anisocytosis (manual) [place] Cells Sodium 143 (132-148) mmol/L Potassium 5.2 (3.6-5.2) mmol/L Chloride 112 H (98-107) mmol/L Carbon Dioxide 17 L (22-30) mmol/L Anion Gap 20 (10-20) BUN 51 H (9-20) mg/dL Creatinine 7.7 H* (0.8-1.5) mg/dL Est GFR ( Amer) 10 Est GFR (Non-Af Amer) 8 Random Glucose 91 (75-110) mg/dL Lactic Acid (0.7-2.1) mmol/L Calcium 9.2 (8.6-10.4) mg/dl Total Bilirubin 1.0 (0.2-1.3) mg/dL AST 23 (17-59) U/L ALT 41 (21-72) U/L Alkaline Phosphatase 120 (38-126) U/L Total Protein 7.4 (6.3-8.3) g/dL Albumin 4.3 (3.5-5.0) g/dL Globulin 3.1 (2.2-3.9) gm/dL Albumin/Globulin Ratio 1.4 (1.0-2.1) Random Vancomycin 13.4 ug/mL Hep Bs Antigen Negative (NEGATIVE) 04/05/18 04/04/18 04/04/18 Range/Units 06:01 16:20 16:20 WBC 35.0 H 35.6 H (4.8-10.8) K/uL RBC 3.78 L 4.00 L (4.40-5.90) Mil/uL Hgb 11.5 L 12.1 (12.0-18.0) g/dL Hct 34.6 L 36.3 (35.0-51.0) % MCV 91.5 90.8 (80.0-94.0) fL MCH 30.5 30.2 (27.0-31.0) pg MCHC 33.3 33.3 (33.0-37.0) g/dL RDW 15.5 H 15.1 H (11.5-14.5) % Plt Count 3 L* 5 L* (130-400) K/uL MPV 13.6 H 10.3 (7.2-11.7) fL Neut % (Auto) 83.3 H 83.4 H (50.0-75.0) % Lymph % (Auto) 6.6 L 3.0 L (20.0-40.0) % [place] % (Auto) 9.9 13.3 H (0.0-10.0) % Eos % (Auto) 0.0 0.1 (0.0-4.0) % Baso % (Auto) 0.2 0.2 (0.0-2.0) % Neut # (Auto) 29.1 H 29.7 H (1.8-7.0) K/uL Lymph # (Auto) 2.3 1.1 (1.0-4.3) K/uL [place] # (Auto) 3.4 H 4.7 H (0.0-0.8) K/uL Eos # (Auto) 0.0 0.0 (0.0-0.7) K/uL Baso # (Auto) 0.1 0.1 (0.0-0.2) K/uL Neutrophils % (Manual) 91 H 81 H (50-75) % Band Neutrophils % 4 H (0-2) % Lymphocytes % (Manual) 3 L 3 L (20-40) % Monocytes % (Manual) 6 11 H (0-10) % Metamyelocytes % 1 H (0-0) % Platelet Estimate Markedly decreased L Markedly decreased L (NORMAL) Large Platelets Present Giant Platelets Present Anisocytosis (manual) Slight Alicia Cells Slight Sodium 141 (132-148) mmol/L Potassium 5.5 H (3.6-5.2) mmol/L Chloride 112 H (98-107) mmol/L Carbon Dioxide 14 L (22-30) mmol/L Anion Gap 21 H (10-20) BUN 52 H (9-20) mg/dL Creatinine 7.7 H* (0.8-1.5) mg/dL Est GFR ( Amer) 10 Est GFR (Non-Af Amer) 8 Random Glucose 101 (75-110) mg/dL Lactic Acid (0.7-2.1) mmol/L Calcium 9.2 (8.6-10.4) mg/dl Total Bilirubin 1.1 (0.2-1.3) mg/dL AST 28 (17-59) U/L ALT 52 (21-72) U/L Alkaline Phosphatase 153 H (38-126) U/L Total Protein 6.9 (6.3-8.3) g/dL Albumin 4.0 (3.5-5.0) g/dL Globulin 3.0 (2.2-3.9) gm/dL Albumin/Globulin Ratio 1.3 (1.0-2.1) Random Vancomycin ug/mL Hep Bs Antigen (NEGATIVE) 04/04/18 Range/Units 16:20 WBC (4.8-10.8) K/uL RBC (4.40-5.90) Mil/uL Hgb (12.0-18.0) g/dL Hct (35.0-51.0) % MCV (80.0-94.0) fL MCH (27.0-31.0) pg MCHC (33.0-37.0) g/dL RDW (11.5-14.5) % Plt Count (130-400) K/uL MPV (7.2-11.7) fL Neut % (Auto) (50.0-75.0) % Lymph % (Auto) (20.0-40.0) % [place] % (Auto) (0.0-10.0) % Eos % (Auto) (0.0-4.0) % Baso % (Auto) (0.0-2.0) % Neut # (Auto) (1.8-7.0) K/uL Lymph # (Auto) (1.0-4.3) K/uL [place] # (Auto) (0.0-0.8) K/uL Eos # (Auto) (0.0-0.7) K/uL Baso # (Auto) (0.0-0.2) K/uL Neutrophils % (Manual) (50-75) % Band Neutrophils % (0-2) % Lymphocytes % (Manual) (20-40) % Monocytes % (Manual) (0-10) % Metamyelocytes % (0-0) % Platelet Estimate (NORMAL) Large Platelets Giant Platelets Anisocytosis (manual) Alicia Cells Sodium (132-148) mmol/L Potassium (3.6-5.2) mmol/L Chloride (98-107) mmol/L Carbon Dioxide (22-30) mmol/L Anion Gap (10-20) BUN (9-20) mg/dL Creatinine (0.8-1.5) mg/dL Est GFR ( Amer) Est GFR (Non-Af Amer) Random Glucose (75-110) mg/dL Lactic Acid 1.5 (0.7-2.1) mmol/L Calcium (8.6-10.4) mg/dl Total Bilirubin (0.2-1.3) mg/dL AST (17-59) U/L ALT (21-72) U/L Alkaline Phosphatase (38-126) U/L Total Protein (6.3-8.3) g/dL Albumin (3.5-5.0) g/dL Globulin (2.2-3.9) gm/dL Albumin/Globulin Ratio (1.0-2.1) Random Vancomycin ug/mL Hep Bs Antigen (NEGATIVE) Laboratory Results - last 24 hr 04/04/18 04/04/18 04/04/18 16:20 16:20 16:20 WBC 35.6 H RBC 4.00 L Hgb 12.1 Hct 36.3 MCV 90.8 MCH 30.2 MCHC 33.3 RDW 15.1 H Plt Count 5 L* MPV 10.3 Neut % (Auto) 83.4 H Lymph % (Auto) 3.0 L [place] % (Auto) 13.3 H Eos % (Auto) 0.1 Baso % (Auto) 0.2 Neut # (Auto) 29.7 H Lymph # (Auto) 1.1 [place] # (Auto) 4.7 H Eos # (Auto) 0.0 Baso # (Auto) 0.1 Neutrophils % (Manual) 81 H Band Neutrophils % 4 H Lymphocytes % (Manual) 3 L Monocytes % (Manual) 11 H Metamyelocytes % 1 H Platelet Estimate Markedly decreased L Large Platelets Giant Platelets Anisocytosis (manual) Alicia Cells Sodium 141 Potassium 5.5 H Chloride 112 H Carbon Dioxide 14 L Anion Gap 21 H BUN 52 H Creatinine 7.7 H* Est GFR ( Amer) 10 Est GFR (Non-Af Amer) 8 Random Glucose 101 Lactic Acid 1.5 Calcium 9.2 Total Bilirubin 1.1 AST 28 ALT 52 Alkaline Phosphatase 153 H Total Protein 6.9 Albumin 4.0 Globulin 3.0 Albumin/Globulin Ratio 1.3 Random Vancomycin Hep Bs Antigen 04/05/18 04/05/18 04/05/18 06:01 06:01 06:01 WBC 35.0 H RBC 3.78 L Hgb 11.5 L Hct 34.6 L MCV 91.5 MCH 30.5 MCHC 33.3 RDW 15.5 H Plt Count 3 L* MPV 13.6 H Neut % (Auto) 83.3 H Lymph % (Auto) 6.6 L [place] % (Auto) 9.9 Eos % (Auto) 0.0 Baso % (Auto) 0.2 Neut # (Auto) 29.1 H Lymph # (Auto) 2.3 [place] # (Auto) 3.4 H Eos # (Auto) 0.0 Baso # (Auto) 0.1 Neutrophils % (Manual) 91 H Band Neutrophils % Lymphocytes % (Manual) 3 L Monocytes % (Manual) 6 Metamyelocytes % Platelet Estimate Markedly decreased L Large Platelets Present Giant Platelets Present Anisocytosis (manual) Slight Alicia Cells Slight Sodium 143 Potassium 5.2 Chloride 112 H Carbon Dioxide 17 L Anion Gap 20 BUN 51 H Creatinine 7.7 H* Est GFR ( Amer) 10 Est GFR (Non-Af Amer) 8 Random Glucose 91 Lactic Acid Calcium 9.2 Total Bilirubin 1.0 AST 23 ALT 41 Alkaline Phosphatase 120 Total Protein 7.4 Albumin 4.3 Globulin 3.1 Albumin/Globulin Ratio 1.4 Random Vancomycin 13.4 Hep Bs Antigen 04/05/18 14:16 WBC RBC Hgb Hct MCV MCH MCHC RDW Plt Count MPV Neut % (Auto) Lymph % (Auto) [place] % (Auto) Eos % (Auto) Baso % (Auto) Neut # (Auto) Lymph # (Auto) [place] # (Auto) Eos # (Auto) Baso # (Auto) Neutrophils % (Manual) Band Neutrophils % Lymphocytes % (Manual) Monocytes % (Manual) Metamyelocytes % Platelet Estimate Large Platelets Giant Platelets Anisocytosis (manual) [place] Cells Sodium Potassium Chloride Carbon Dioxide Anion Gap BUN Creatinine Est GFR ( Amer) Est GFR (Non-Af Amer) Random Glucose Lactic Acid Calcium Total Bilirubin AST ALT Alkaline Phosphatase Total Protein Albumin Globulin Albumin/Globulin Ratio Random Vancomycin Hep Bs Antigen Negative Review of Systems - Review of Systems Review of Systems: As per [facility] Critical Care Progress Note - Nutrition Nutrition: Nutrition Category Date Time Status NPO Diet [DIET] Diets 04/04/18 Lunch Active Assessment/Plan - Assessment and Plan (Free Text) Assessment: Patient is a 32M with a past medical history of HTN, ESRD (HD Tues, Th, Sat) , known atypical HUS and thrombocytopenia. ICU consulted for evaluation and treatment of sepsis and severe thrombocytopenia. Plan: Neuro: GCS: 15 Sedation: None A: Headache Head CT: no mass, hemorrhage, or acute infarct identified. mild cerebral atrophy. Cardio: A: HTN Home medication: Clonidine 0.2mg PO BID Renal A: ESRD (TTS), Hyperkalemia, Dialysis schedule: TTS Scheduled for Dialysis today, as patient missed two sessions. Nephrology consulted, Dr. Villasenor. Help appreciated Sepsis likely secondary to catheter infection. Will likely be removed and replaced by surgery team. EKG: sinus tachycardia; no ST or T wave changes. Patient scheduled for dialysis today. Duonebs and one dose of kayexalate given. Continue to monitor electrolytes. Heme/Onc A: Severe Thrombocytopenia (Worsening), Atypical Hemolytic uremic syndrome At admission, platelet count of 6. Hem/Onc consulted, Dr. Benites. Help appreciated Type and cross 1 Unit of Plts given yesterday. 1 Unit given today with dialysis. Continue to monitor ID: A: Sepsis, Gram Positive Cocci Bacteremia, Leukocytosis (Worsening) Sepsis likely secondary to catheter infection. Febrile (103F), Tachycardic, leukocytosis (Worsening ), elevated lactate In ED, patient was given Zosyn 2.25gm and Vancomycin 1gm IV. Lactate increased from 1.6 at admission to 3.2. - Repeat lactate: f/u UA: negative for infection; 2+ protein Influenza- negative Chest xray: no active pulmonary disease Blood cultures: POSITIVE for Gram Positive Cocci Bacteremia Urine culture: NEGATIVE ID consulted, Dr. Gilmore. Help appreciated Surgery consulted, Dr. Quach. Help appreciated - Plan for bedside cath removal. After platelet transfusion, plan to establish dialysis access. ICU consulted. Patient accepted and transferred to ICU Bed 15. Continue management as per ICU team. Medications: - Zosyn 2.25g IV Q8h (active ) - Vancomycin 1gm given yesterday and today. Consider daily Vanc. - NS bolus given in ED - Reglan 10mg IV Q6h PRN for nausea/vomiting - Tylenol 650mg PO Q6h PRN for fevers/pain Pysch A: Depression Patient states he wants to Psych Consulted Pastoral Care Consulted Proph DVT: No chemical anticoagulation due to severe thrombocytopenia GI: Protonix 40mg Zofran PRN Patient seen and discussed with Attending Jewels Mcghee, PGY-1 <Manuel Sutton - Last Filed: 04/05/18 17:56> CCU Objective - Vital Signs / Intake & Output Vital Signs (Last 4 hours): Vital Signs Temp Pulse Pulse Resp BP BP Pulse Ox 04/05/18 17:02 80 14 189/117 H 98 04/05/18 17:00 82 14 99 04/05/18 16:47 77 14 169/123 H 100 04/05/18 16:32 87 10 L 161/116 H 97 04/05/18 16:02 104 H 16 158/113 H 99 04/05/18 16:00 98.6 F 91 H 22 99 04/05/18 15:47 90 148/105 H 99 04/05/18 15:44 98.6 F 105 H 20 148/105 H 04/05/18 15:35 98.6 F 86 20 140/105 H 100 04/05/18 15:32 90 14 166/118 H 99 04/05/18 15:21 98.4 F 111 H 20 161/118 H 04/05/18 15:17 89 13 161/118 H 99 04/05/18 15:06 98.4 F 107 H 20 152/99 H 04/05/18 15:03 152/99 H 04/05/18 15:02 97 H 15 152/99 H 98 04/05/18 15:00 83 17 99 04/05/18 14:51 98.6 F 107 H 25 H 150/100 H 04/05/18 14:47 87 16 150/100 H 97 04/05/18 14:32 85 11 L 149/111 H 97 04/05/18 14:22 149/111 H 04/05/18 14:17 84 19 150/108 H 94 L 04/05/18 14:02 98 H 10 L 174/117 H 174/117 H 98 04/05/18 14:00 82 12 99 Intake and Output (Last 8hrs): Intake & Output 04/05/18 04/05/18 04/05/18 06:59 14:59 22:59 Intake Total 100 0 299 Output Total 9866 249 7617 Balance -900 100 205 Weight 184 lb 4.8 oz Intake: Intake, IV Amount 100 100 Left Antecubital 100 100 Oral 0 0 0 Blood Product 0 199 Apheresis Plts Acda Lr 0 199 Irr Unit [id number] Output: Urine 1000 300 Urine, Voided 1000 300 Emesis 0 100 50 Other 2000 Other: # Bowel Movements 0 - Medications Active Medications: Active Medications Generic Name Dose Route Start Last Admin Trade Name Freq PRN Reason Stop Dose Admin Acetaminophen 650 mg 04/04/18 12:07 04/05/18 11:45 Tylenol 325mg Tab PO 650 mg Q6 PRN Administration Fever >100.4 F Amlodipine Besylate 10 mg 04/05/18 14:00 04/05/18 16:45 Norvasc PO 10 mg DAILY GUILLE Administration Famotidine 20 mg 04/05/18 10:00 04/05/18 10:14 Pepcid IVP 20 mg DAILY GUILLE Administration Piperacillin Sod/Tazobactam 100 mls @ 200 mls/hr 04/04/18 20:00 04/05/18 16: 51 Sod 2.25 gm/ Sodium Chloride IVPB Not Given Q8H [facility] Protocol Metoclopramide HCl 10 mg 04/04/18 13:31 04/05/18 12:21 Reglan IVP 10 mg Q6H PRN Administration Nausea/Vomiting Ondansetron HCl 4 mg 04/05/18 15:54 04/05/18 16:10 Zofran Inj IVP 4 mg Q4H PRN Administration Nausea/Vomiting - Patient Studies Lab Studies: Microbiology Studies 04/04/18 13:31 S.aureus & Coag-Neg Staph PNA FISH - Final Blood Blood Culture - Preliminary Gram Positive Cocci Gram Stain - Final 04/04/18 13:31 Blood Culture - Preliminary Blood Gram Positive Cocci Gram Stain - Final 04/04/18 12:11 Urine Culture - Final Urine,Turner No Growth (<1,000 CFU/ML) Lab Studies 04/05/18 04/05/18 04/05/18 Range/Units 14:16 06:01 06:01 WBC (4.8-10.8) K/uL RBC (4.40-5.90) Mil/uL Hgb (12.0-18.0) g/dL Hct (35.0-51.0) % MCV (80.0-94.0) fL MCH (27.0-31.0) pg MCHC (33.0-37.0) g/dL RDW (11.5-14.5) % Plt Count (130-400) K/uL MPV (7.2-11.7) fL Neut % (Auto) (50.0-75.0) % Lymph % (Auto) (20.0-40.0) % [place] % (Auto) (0.0-10.0) % Eos % (Auto) (0.0-4.0) % Baso % (Auto) (0.0-2.0) % Neut # (Auto) (1.8-7.0) K/uL Lymph # (Auto) (1.0-4.3) K/uL [place] # (Auto) (0.0-0.8) K/uL Eos # (Auto) (0.0-0.7) K/uL Baso # (Auto) (0.0-0.2) K/uL Neutrophils % (Manual) (50-75) % Band Neutrophils % (0-2) % Lymphocytes % (Manual) (20-40) % Monocytes % (Manual) (0-10) % Metamyelocytes % (0-0) % Platelet Estimate (NORMAL) Large Platelets Giant Platelets Anisocytosis (manual) [place] Cells Sodium 143 (132-148) mmol/L Potassium 5.2 (3.6-5.2) mmol/L Chloride 112 H (98-107) mmol/L Carbon Dioxide 17 L (22-30) mmol/L Anion Gap 20 (10-20) BUN 51 H (9-20) mg/dL Creatinine 7.7 H* (0.8-1.5) mg/dL Est GFR ( Amer) 10 Est GFR (Non-Af Amer) 8 Random Glucose 91 (75-110) mg/dL Calcium 9.2 (8.6-10.4) mg/dl Total Bilirubin 1.0 (0.2-1.3) mg/dL AST 23 (17-59) U/L ALT 41 (21-72) U/L Alkaline Phosphatase 120 (38-126) U/L Total Protein 7.4 (6.3-8.3) g/dL Albumin 4.3 (3.5-5.0) g/dL Globulin 3.1 (2.2-3.9) gm/dL Albumin/Globulin Ratio 1.4 (1.0-2.1) Random Vancomycin 13.4 ug/mL Hep Bs Antigen Negative (NEGATIVE) 04/05/18 04/04/18 Range/Units 06:01 16:20 WBC 35.0 H (4.8-10.8) K/uL RBC 3.78 L (4.40-5.90) Mil/uL Hgb 11.5 L (12.0-18.0) g/dL Hct 34.6 L (35.0-51.0) % MCV 91.5 (80.0-94.0) fL MCH 30.5 (27.0-31.0) pg MCHC 33.3 (33.0-37.0) g/dL RDW 15.5 H (11.5-14.5) % Plt Count 3 L* (130-400) K/uL MPV 13.6 H (7.2-11.7) fL Neut % (Auto) 83.3 H (50.0-75.0) % Lymph % (Auto) 6.6 L (20.0-40.0) % [place] % (Auto) 9.9 (0.0-10.0) % Eos % (Auto) 0.0 (0.0-4.0) % Baso % (Auto) 0.2 (0.0-2.0) % Neut # (Auto) 29.1 H (1.8-7.0) K/uL Lymph # (Auto) 2.3 (1.0-4.3) K/uL [place] # (Auto) 3.4 H (0.0-0.8) K/uL Eos # (Auto) 0.0 (0.0-0.7) K/uL Baso # (Auto) 0.1 (0.0-0.2) K/uL Neutrophils % (Manual) 91 H 81 H (50-75) % Band Neutrophils % 4 H (0-2) % Lymphocytes % (Manual) 3 L 3 L (20-40) % Monocytes % (Manual) 6 11 H (0-10) % Metamyelocytes % 1 H (0-0) % Platelet Estimate Markedly decreased L Markedly decreased L (NORMAL) Large Platelets Present Giant Platelets Present Anisocytosis (manual) Slight Alicia Cells Slight Sodium (132-148) mmol/L Potassium (3.6-5.2) mmol/L Chloride (98-107) mmol/L Carbon Dioxide (22-30) mmol/L Anion Gap (10-20) BUN (9-20) mg/dL Creatinine (0.8-1.5) mg/dL Est GFR ( Amer) Est GFR (Non-Af Amer) Random Glucose (75-110) mg/dL Calcium (8.6-10.4) mg/dl Total Bilirubin (0.2-1.3) mg/dL AST (17-59) U/L ALT (21-72) U/L Alkaline Phosphatase (38-126) U/L Total Protein (6.3-8.3) g/dL Albumin (3.5-5.0) g/dL Globulin (2.2-3.9) gm/dL Albumin/Globulin Ratio (1.0-2.1) Random Vancomycin ug/mL Hep Bs Antigen (NEGATIVE) Laboratory Results - last 24 hr 04/04/18 04/05/18 04/05/18 16:20 06:01 06:01 WBC 35.0 H RBC 3.78 L Hgb 11.5 L Hct 34.6 L MCV 91.5 MCH 30.5 MCHC 33.3 RDW 15.5 H Plt Count 3 L* MPV 13.6 H Neut % (Auto) 83.3 H Lymph % (Auto) 6.6 L [place] % (Auto) 9.9 Eos % (Auto) 0.0 Baso % (Auto) 0.2 Neut # (Auto) 29.1 H Lymph # (Auto) 2.3 [place] # (Auto) 3.4 H Eos # (Auto) 0.0 Baso # (Auto) 0.1 Neutrophils % (Manual) 81 H 91 H Band Neutrophils % 4 H Lymphocytes % (Manual) 3 L 3 L Monocytes % (Manual) 11 H 6 Metamyelocytes % 1 H Platelet Estimate Markedly decreased L Markedly decreased L Large Platelets Present Giant Platelets Present Anisocytosis (manual) Slight Alicia Cells Slight Sodium 143 Potassium 5.2 Chloride 112 H Carbon Dioxide 17 L Anion Gap 20 BUN 51 H Creatinine 7.7 H* Est GFR ( Amer) 10 Est GFR (Non-Af Amer) 8 Random Glucose 91 Calcium 9.2 Total Bilirubin 1.0 AST 23 ALT 41 Alkaline Phosphatase 120 Total Protein 7.4 Albumin 4.3 Globulin 3.1 Albumin/Globulin Ratio 1.4 Random Vancomycin Hep Bs Antigen 04/05/18 04/05/18 06:01 14:16 WBC RBC Hgb Hct MCV MCH MCHC RDW Plt Count MPV Neut % (Auto) Lymph % (Auto) [place] % (Auto) Eos % (Auto) Baso % (Auto) Neut # (Auto) Lymph # (Auto) [place] # (Auto) Eos # (Auto) Baso # (Auto) Neutrophils % (Manual) Band Neutrophils % Lymphocytes % (Manual) Monocytes % (Manual) Metamyelocytes % Platelet Estimate Large Platelets Giant Platelets Anisocytosis (manual) Alicia Cells Sodium Potassium Chloride Carbon Dioxide Anion Gap BUN Creatinine Est GFR ( Amer) Est GFR (Non-Af Amer) Random Glucose Calcium Total Bilirubin AST ALT Alkaline Phosphatase Total Protein Albumin Globulin Albumin/Globulin Ratio Random Vancomycin 13.4 Hep Bs Antigen Negative Critical Care Progress Note - Nutrition Nutrition: Nutrition Category Date Time Status NPO Diet [DIET] Diets 04/04/18 Lunch Active Attending/Attestation - Attestation I have personally seen and examined this patient.: Yes I have fully participated in the care of the patient.: Yes I have reviewed all pertinent clinical information: Yes Notes (Text): 04/05/18 17:55 Patient seen and examined in the intensive care unit. Status post hemodialysis Platelet counts remained low For transfusion of platelets Patient signed out AMA, risks explained to the patient through interpretor which he understood.
[2018-04-06] MEDS: Piperacillin/Tazobact 2.25 GM in Sodium Chloride 100 ML IVPB SCH ×3 (03:55→20:22)
[2018-04-06 06:42] LABS: BASO # 0.1 K/uL (0.0-0.2); BASO % 0.5 % (0.0-2.0); LYMPH # 2.5 K/uL (1.0-4.3); LYMPH % 9.1 % (20.0-40.0); MEAN CELL VOLUME 91.8 fL (80.0-94.0); MEAN CORPUSCULAR HEMOGLOBIN 31.1 pg (27.0-31.0); MEAN CORPUSCULAR HGB CONC 33.8 g/dL (33.0-37.0); MEAN PLATELET VOLUME 9.9 fL (7.2-11.7); MONO # 2.5 K/uL (0.0-0.8); MONO % 9.4 % (0.0-10.0); NEUT # 21.8 K/uL (1.8-7.0); NRBC % 0.1 % (0.0-2.0); RBC 4.17 Mil/uL (4.40-5.90); RED CELL DISTRIBUTION WIDTH 15.1 % (11.5-14.5)
[2018-04-06 06:55] LABS: PLATELET COUNT 15 K/uL (130-400)
[2018-04-06 06:59] LABS: ALB/GLOB RATIO 1.1 (1.0-2.1); ALBUMIN 4.5 g/dL (3.5-5.0); CALCIUM 9.5 mg/dl (8.6-10.4)
[2018-04-06 08:30] LABS: ANISOCYTOSIS SLIGHT; LARGE PLATELETS PRESENT; LYMPHOCYTE 7 % (20-40); MONOCYTE 7 % (0-10); NEUTROPHIL 86 % (50-75); PLATELET ESTIMATE MARKEDLY DECREASED (NORMAL); TOTAL CELLS COUNTED 100
[2018-04-06 08:31] LABS: GIANT PLATELETS PRESENT
--- NOTE | 2018-04-06 09:31 | CP.PCM.PN ---
Subjective - Date & Time of Evaluation Date of Evaluation: 04/06/18 Time of Evaluation: 09:28 - Subjective Subjective: events noted presented with fevers, headaces- has catheter sepsis- staph aureus on IV ABs; will need catheter change discussed resumption of PD due to line sepsis- pt refusing BP elevated- has not been places on home BP meds Objective - Vital Signs/Intake and Output Vital Signs (last 24 hours): Temp Pulse Resp BP Pulse Ox 98.6 F 95 H 15 175/120 H 96 04/06/18 08:00 04/06/18 09:00 04/06/18 09:00 04/06/18 08:59 04/06/18 09:00 Intake and Output: 04/06/18 04/06/18 06:59 18:59 Intake Total 400 420 Output Total 1100 300 Balance -700 120 - Medications Medications: Current Medications Acetaminophen (Tylenol 325mg Tab) 650 mg PO Q6 PRN PRN Reason: Fever >100.4 F Last Admin: 04/06/18 09:07 Dose: 650 mg Amlodipine Besylate (Norvasc) 10 mg PO DAILY [facility] Last Admin: 04/06/18 09:04 Dose: 10 mg Famotidine (Pepcid) 20 mg IVP DAILY [facility] Last Admin: 04/05/18 10:14 Dose: 20 mg Piperacillin Sod/Tazobactam (Sod 2.25 gm/ Sodium Chloride) 100 mls @ 200 mls/ hr IVPB Q8H [facility] PRN Reason: Protocol Last Admin: 04/06/18 03:55 Dose: 200 mls/hr Metoclopramide HCl (Reglan) 10 mg IVP Q6H PRN PRN Reason: Nausea/Vomiting Last Admin: 04/05/18 22:16 Dose: 10 mg Ondansetron HCl (Zofran Inj) 4 mg IVP Q4H PRN PRN Reason: Nausea/Vomiting Last Admin: 04/06/18 01:37 Dose: 4 mg - Labs Labs: 04/06/18 06:28 04/06/18 06:28 PT 13.4 SECONDS (9.7-12.2) H 04/04/18 06:59 INR 1.2 04/04/18 06:59 APTT 32 SECONDS (21-34) 04/04/18 06:59 - Constitutional Appears: No Acute Distress, Chronically Ill - Head Exam Head Exam: ATRAUMATIC, NORMAL INSPECTION - Eye Exam Eye Exam: EOMI, Normal appearance - Neck Exam Neck Exam: Normal Inspection. absent: Tenderness - Respiratory Exam Respiratory Exam: Clear to Ausculation Bilateral, NORMAL BREATHING PATTERN - Cardiovascular Exam Cardiovascular Exam: REGULAR RHYTHM, +S1 - GI/Abdominal Exam GI & Abdominal Exam: Soft. absent: Tenderness - Extremities Exam Extremities Exam: Normal Inspection. 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
--- NOTE | 2018-04-06 09:33 | CON ---
DATE: INFECTIOUS DISEASE CONSULT HISTORY OF PRESENT ILLNESS: This patient is a 32-year-old male, he was last seen by me in December. He has a history of hypertension, end-stage renal disease. He gets dialysis on Tuesdays, , and Saturdays, but today they are doing as an emergency on a Tuesday. He has HUS atypical and severe thrombocytopenia. His platelet count was only 6000 when he came to the emergency room with pain and yellow discharge from his dialysis port which was on the right side. He has been vomiting overnight, and at this time, he is getting dialysis. He is feeling not too good. He is lying with his face down and patient did have fever and chills before coming, headache, abdominal pain, dizziness, and muscle ache. PAST MEDICAL HISTORY: Significant for hypertension, CKD, end-stage renal disease, thrombocytopenia, atypical HUS. SURGICAL HISTORY: PD catheter placed in 05/2017, then he had a renal biopsy in 03/2017. He had a right chest Perm-A-Cath placed in 03/2017, splenectomy 5 years ago. FAMILY HISTORY: Negative. MEDICATIONS: He is on clonidine and Tylenol p.r.n. ALLERGIES: HE IS ALLERGIC TO ASPIRIN. Doctor told him not to take that because of low platelet and the patient is followed by Dr. Villasenor, and Vascular, Dr. Quach, and Dr. Benites. REVIEW OF SYSTEMS: Most of the things are taken from the chart as he is feeling sick and does not want to talk much at this time. He came in with fever and chills. He has dizziness and chest pain. Respiratory: No cough. No dyspnea. GI: He had nausea and vomiting. No abdominal pain. He does have urinary frequency and urinary hesitancy. Has myalgias. No rash reported. Complaints of dizziness. Denies any bruising at this time. He has history of hypertension, kidney disease, deafness, left hearing aid, and chronic kidney disease. No endocrine problems. Blood: He has thrombocytopenia. MEDICATIONS: He was on Tylenol, amlodipine, famotidine, metoclopramide, Zofran, Zosyn, and we gave him one dose of vancomycin and gentamicin. If they are going to do his dialysis on Tuesday, , and Tuesday, I will put him on vancomycin and gentamicin post dialysis, and to continue Zosyn at this time, and we are waiting for ID and sensitivity of the organism. PHYSICAL EXAMINATION: VITAL SIGNS: I find his temperature is 98.6 right now, heart rate of 105, respirations are 20, saturations 99, blood pressure 148/105. HEENT: Head is atraumatic, normocephalic. The patient is drowsy. NECK: Supple. JVP flat. LUNGS: Clear. No crackles or rales present. HEART: S1, S2 regular. He is tachycardic. ABDOMEN: Soft, nontender. No guarding. He has minimal epigastric tenderness, otherwise, no tenderness present. EXTREMITIES: Have normal inspection. No pedal edema. SKIN: Warm to touch. He has a Perm-A-Cath on the right upper chest wall with erythema, tenderness on palpation. LABORATORY DATA: At this time, his blood cultures also came out positive for Staph aureus. ID and sensitivity is pending. ASSESSMENT AND PLAN: We will order echocardiogram and give him vancomycin and gentamicin today and also after dialysis, and continue Zosyn for this time. The catheter needs to be changed and so we will order, as the cultures are positive. We will follow. Jaswant Gilmore MD
[2018-04-06] MEDS ORDERED: (Novolin R) Insulin Human Regular 100 units/ml vial SC SCH ×2 (12:00)
--- NOTE | 2018-04-06 14:32 | PCM.PSYCH ---
Initial Psychiatric Evaluation - Initial Psychiatric Evaluation Type of Admission: Voluntary Legal Status: Capacity History of Present Illness and Precipitating Events: Patient is a 32 year old male with a past medical history of HTN, ESRD (HD Tuesday, , Tuesday), known atypical HUS and thrombocytopenia who presented to the ED with complaints of pain and yellow discharge from his dialysis port in his right chest. Patient yesterday was very upset wanted to go home AMA because he knows he was going to and would rather have that happen at home instead. This is according to the medical doctor who is caring for the patient. Patient was seen today and denied feeling depressed and denies suicidal ideation. Patient denies decrease in sleep, decrease in interest, denies feeling guilty, denies decrease in concentration, denies decreased appetite, and denies psychomotor agitation. Patient only complains of nausea and a headache today. Patient reports his mood is much better than yesterday. PMHx: HTN, CKD, ESRD, known atypical HUS, thrombocytpenia PSHx: PD cath placed 05/2017; renal biopsy 03/2017; right chest permacath placed ; splenectomy at 4 years old FamHx: denies Allergies: Aspirin Current Medications: Active Medications Generic Name Dose Route Start Last Admin Trade Name Freq PRN Reason Stop Dose Admin Acetaminophen 650 mg 04/04/18 12:07 04/06/18 09:07 Tylenol 325mg Tab PO 650 mg Q6 PRN Administration Fever >100.4 F Amlodipine Besylate 10 mg 04/05/18 14:00 04/06/18 09:04 Norvasc PO 10 mg DAILY [facility] Administration Carvedilol 3.125 mg 04/06/18 10:04/06/18 10:07 Coreg PO 3.125 mg BID [facility] Administration Clonidine HCl 0.2 mg 04/06/18 10:00 04/06/18 13:33 Catapres PO 0.2 mg TID [facility] Administration Famotidine 20 mg 04/05/18 10:04/06/18 10:07 Pepcid IVP 20 mg DAILY [facility] Administration Piperacillin Sod/Tazobactam 100 mls @ 200 mls/hr 04/04/18 20:00 04/06/18 12: 13 Sod 2.25 gm/ Sodium Chloride IVPB 200 mls/hr Q8H [facility] Administration Protocol Metoclopramide HCl 10 mg 04/04/18 13:31 04/05/18 22:16 Reglan IVP 10 mg Q6H PRN Administration Nausea/Vomiting Ondansetron HCl 4 mg 04/05/18 15:54 04/06/18 01:37 Zofran Inj IVP 4 mg Q4H PRN Administration Nausea/Vomiting Past Psychiatric History - Past Psychiatric History Previous Treatment History: None Pertinent Medical Hx (Current Medical&Sleep Prob, Allergies): Allergies Allergy/AdvReac Type Severity Reaction Status Date / Time aspirin AdvReac ANAPHYLAXIS Verified 04/04/18 06:28 Clonidine HCl [Catapres] 0.2 mg PO BID #30 05/27/17 Clindamycin [Cleocin] 300 mg PO TID #42 cap 04/05/18 Review of Systems - Review of Systems All systems: reviewed and no additional remarkable complaints except - Psychiatric Psychiatric: Anxiety, Irritability. absent: Suicidal Ideation Mental Status Examination - Personal Presentation Personal Presentation: Looks stated age - Affect Affect: Constricted - Motor Activity Motor Activity: Calm - Reliability in Providing Information Reliability in Providing Information: Fair - Speech Speech: Organized - Mood Mood: Anxious - Formal Thought Process Formal Thought Process: No Impairment - Obsessions/Compulsions Obsessions: No Compulsions: No - Cognitive Functions Orientation: Person, Place, Situation, Time Sensorium: Alert Attention/Concentration: Attentive Abstract Thinking: [place] Estimate of Intelligence: Below average Judgement: Imparied, as evidence by: Poor judgement, Imparied, as evidence by: Lack of insight into illness - Risk Risk: Other - Limitations Limitations: Living alone DSM 5 DX - DSM 5 DSM 5 Diagnosis: adjustment disorder with anxious mood
--- NOTE | 2018-04-06 15:25 | CP.PCM.PN ---
Subjective - Date & Time of Evaluation Date of Evaluation: 04/06/18 Time of Evaluation: 15:00 - Subjective Subjective: Medical Attending Note: Patient seen and examined at bedside. Patient underwent echocardiogram. Patient seen in dialysis. Patient reports burning sensation in the back of throat. Patient had been throwing up yesterday. Today he reports he is tolerating diet today. Objective - Vital Signs/Intake and Output Vital Signs (last 24 hours): Temp Pulse Resp BP Pulse Ox 98.2 F 98 H 18 142/97 H 99 04/06/18 14:10 04/06/18 14:10 04/06/18 14:10 04/06/18 14:10 04/06/18 14:10 Intake and Output: 04/06/18 04/06/18 06:59 18:59 Intake Total 400 900 Output Total 1100 300 Balance -700 600 - Medications Medications: Current Medications Acetaminophen (Tylenol 325mg Tab) 650 mg PO Q6 PRN PRN Reason: Fever >100.4 F Last Admin: 04/06/18 09:07 Dose: 650 mg Amlodipine Besylate (Norvasc) 10 mg PO DAILY [facility] Last Admin: 04/06/18 09:04 Dose: 10 mg Carvedilol (Coreg) 3.125 mg PO BID [facility] Last Admin: 04/06/18 10:07 Dose: 3.125 mg Clonidine HCl (Catapres) 0.2 mg PO TID [facility] Last Admin: 04/06/18 13:33 Dose: 0.2 mg Famotidine (Pepcid) 20 mg IVP DAILY [facility] Last Admin: 04/06/18 10:07 Dose: 20 mg Piperacillin Sod/Tazobactam (Sod 2.25 gm/ Sodium Chloride) 100 mls @ 200 mls/ hr IVPB Q8H [facility] PRN Reason: Protocol Last Admin: 04/06/18 12:13 Dose: 200 mls/hr Metoclopramide HCl (Reglan) 10 mg IVP Q6H PRN PRN Reason: Nausea/Vomiting Last Admin: 04/05/18 22:16 Dose: 10 mg Ondansetron HCl (Zofran Inj) 4 mg IVP Q4H PRN PRN Reason: Nausea/Vomiting Last Admin: 04/06/18 01:37 Dose: 4 mg - Labs Labs: 04/06/18 06:28 04/06/18 06:28 PT 13.4 SECONDS (9.7-12.2) H 04/04/18 06:59 INR 1.2 04/04/18 06:59 APTT 32 SECONDS (21-34) 04/04/18 06:59 - Constitutional Appears: Non-toxic, No Acute Distress - Head Exam Head Exam: NORMAL INSPECTION Additional comments: dialysis catheter: c/d/i (right side chest) - Eye Exam Eye Exam: EOMI - ENT Exam ENT Exam: Mucous Membranes Moist - Respiratory Exam Respiratory Exam: Clear to Ausculation Bilateral, NORMAL BREATHING PATTERN. absent: Rales, Rhonchi, Wheezes - Cardiovascular Exam Cardiovascular Exam: REGULAR RHYTHM, +S1, +S2 - GI/Abdominal Exam GI & Abdominal Exam: Soft, Normal Bowel Sounds. absent: Distended, Guarding, Rigid, Tenderness, Rebound - Extremities Exam Extremities Exam: absent: Pedal Edema, Tenderness - Neurological Exam Neurological Exam: Alert, Awake, Oriented x3 - Psychiatric Exam Psychiatric exam: Normal Affect, Normal Mood - Skin Skin Exam: Dry, Intact, Normal Color, Warm Attending/Attestation - Attestation I have personally seen and examined this patient.: Yes I have fully participated in the care of the patient.: Yes I have reviewed all pertinent clinical information, including history, physical exam and plan: Yes Notes (Text): Assessment/plan (1) Sepsis Bacteremia Infected Dialysis Catheter Assessment and Plan: * Sepsis likely secondary to catheter infection and bacterenmia * Criteria: Febrile (103F), Tachycardic, leukocytosis (WBC 25.1), elevated lactate * In ED, patient was given Zosyn 2.25gm and Vancomycin 1gm IV. * Lactate increased from 1.6 at admission to 3.2--> lactate: 1.5 * Blood culture (04/04/18): gram positive cocci X2 * UA: negative for infection; 2+ protein; urine culture (03/31): no growth * Influenza- negative * Chest xray: no active pulmonary disease * Tylenol 650mg PO Q6H >100.4F * ID consulted, Dr. Gilmore. Help appreciated * Gentamicin Sulfate 80mg IVPB once * Zosyn 2.25g IVPB Q8H * Vancomycin 1 gram IV X1 * Surgery consulted, Dr. Quach. Help appreciated * ICU consulted. Patient accepted and transferred to ICU Bed 15 on 04/04/18. Further management as per ICU team. Transferred out on 04/06/18. Medications: * Reglan 10mg IV Q6h PRN for nausea/vomiting * Tylenol 650mg PO Q6h PRN for fevers/pain * Cooling blanket ordered but not available Status: Acute (2) ESRD (end stage renal disease) on dialysis Assessment and Plan: * Dialysis schedule: TTS * Scheduled for Dialysis today, as patient missed two sessions. * Nephrology consulted, Dr. Villasenor. Help appreciated * Sepsis likely secondary to catheter infection. Will likely be removed and replaced * We will need to follow-up with surgery to determine when to replace dialysis catheter. Patient has refuses peritoneal dialysis. Status: Acute (3) Hyperkalemia-->normalized Assessment and Plan: * Secondary to ESRD * EKG: sinus tachycardia; no ST or T wave changes. * Recieving dialysis today * Duonebs and one dose of kayexalate given. * Continue to monitor electrolytes. * lowered Status: Acute (4) Severe thrombocytopenia Assessment and Plan: * Hem/Onc consulted, Dr. Benites. Help appreciated * patient diagnosed with atypical HUS; on solaris; awaiting evaluation by subspecialist as outpatient but limited secondary to affordability * At admission, platelet count of 6-->3-->15 * Patient's 2 units of platelets total * Type and cross * Continue to monitor * possible sepsis to consider Status: Acute (5) Atypical hemolytic uremic syndrome Assessment and Plan: * Hx of atypical HUS and thrombocytopenia. * Heme/Onc consulted, Dr. Benites. Help appreciated. * Renal biopsy confirmed in prior hospitalization noted in the EMR Status: Acute (6) Hypertension Assessment and Plan: * Home medication: * Clonidine 0.2mg PO BID * Norvasc 10mg PO daily * Coreg 3.125mg PO BID Status: Chronic (7) Headache Assessment and Plan: * Head CT: no mass, hemorrhage, or acute infarct identified. mild cerebral atrophy. Status: Acute (8) Prophylactic measure Assessment and Plan: * DVT: No chemical anticoagulation due to severe thrombocytopenia * GI: Pepcid 20mg Iv q daily * Will consult palliative care for goals of care Status: Acute
--- NOTE | 2018-04-06 17:12 | CP.PCM.PN ---
Subjective - Date & Time of Evaluation Date of Evaluation: 04/06/18 Time of Evaluation: 16:45 - Subjective Subjective: Brief Hospitalist Note Patient called 443pm code blue; cancelled code blue 445PM. Patient was hypotensive. Dialysis held. Patient's blood pressure regained with iv fluids. Patient was unresponsive, eyes flickering, sternal rubbed, but pulse found, no compressions given. Patient able to move upper and lower extremities, speaks softly in irish, has hearing aid over left lower extremity. He reports lightheadedness. Patient is septic and hx of severe thrombocytopenia. Patient ordered for CT Head stat and transferred back to the ICU. Objective - Vital Signs/Intake and Output Vital Signs (last 24 hours): Temp Pulse Resp BP Pulse Ox 97.7 F 70 18 131/80 100 04/06/18 15:30 04/06/18 15:25 04/06/18 15:30 04/06/18 15:30 04/06/18 15:30 Intake and Output: 04/06/18 04/06/18 06:59 18:59 Intake Total 400 900 Output Total 1100 300 Balance -700 600 - Medications Medications: Current Medications Acetaminophen (Tylenol 325mg Tab) 650 mg PO Q6 PRN PRN Reason: Fever >100.4 F Last Admin: 04/06/18 09:07 Dose: 650 mg Amlodipine Besylate (Norvasc) 10 mg PO DAILY [facility] Last Admin: 04/06/18 09:04 Dose: 10 mg Carvedilol (Coreg) 3.125 mg PO BID [facility] Last Admin: 04/06/18 10:07 Dose: 3.125 mg Clonidine HCl (Catapres) 0.2 mg PO TID [facility] Last Admin: 04/06/18 13:33 Dose: 0.2 mg Famotidine (Pepcid) 20 mg IVP DAILY [facility] Last Admin: 04/06/18 10:07 Dose: 20 mg Piperacillin Sod/Tazobactam (Sod 2.25 gm/ Sodium Chloride) 100 mls @ 200 mls/ hr IVPB Q8H [facility] PRN Reason: Protocol Last Admin: 04/06/18 12:13 Dose: 200 mls/hr Vancomycin/Sodium Chloride (Vancomycin 1 Gm/Ns 200 Ml) 1 gm in 200 mls @ 133 mls/hr IVPB TTS [facility] PRN Reason: Protocol Stop: 04/11/18 17:01 Gentamicin Sulfate 80 mg/ (Sodium Chloride) 102 mls @ 100 mls/hr IVPB TTS [facility] PRN Reason: Protocol Metoclopramide HCl (Reglan) 10 mg IVP Q6H PRN PRN Reason: Nausea/Vomiting Last Admin: 04/05/18 22:16 Dose: 10 mg Ondansetron HCl (Zofran Inj) 4 mg IVP Q4H PRN PRN Reason: Nausea/Vomiting Last Admin: 04/06/18 01:37 Dose: 4 mg - Labs Labs: 04/06/18 06:28 04/06/18 06:28 PT 13.4 SECONDS (9.7-12.2) H 04/04/18 06:59 INR 1.2 04/04/18 06:59 APTT 32 SECONDS (21-34) 04/04/18 06:59
--- NOTE | 2018-04-06 17:24 | CT ---
PROCEDURE: CT HEAD WITHOUT CONTRAST. HISTORY: r/o bleeding COMPARISON: Unenhanced head CT 04/04/2018. TECHNIQUE: Axial computed tomography images were obtained through the head/brain without intravenous contrast. Radiation dose: Total exam DLP = 1167.94 mGy-cm. This CT exam was performed using one or more of the following dose reduction techniques: Automated exposure control, adjustment of the mA and/or kV according to patient size, and/or use of iterative reconstruction technique. FINDINGS: HEMORRHAGE: No intracranial hemorrhage. BRAIN: Normal spears-white matter differentiation and density are appreciated throughout the cerebrum and cerebellum with the brainstem appearing unremarkable as well. There is no mass effect. There is no suspicious extra-axial fluid collection and the midline brain anatomy appears diffusely unremarkable. VENTRICLES: Unremarkable. No hydrocephalus. CALVARIUM: Unremarkable. PARANASAL SINUSES: Unremarkable as visualized. No significant inflammatory changes. MASTOID AIR CELLS: Unremarkable as visualized. No inflammatory changes. OTHER FINDINGS: None. IMPRESSION: Unremarkable unenhanced CT of the Head.
--- NOTE | 2018-04-06 18:55 | CP.PCM.PN ---
Subjective - Date & Time of Evaluation Date of Evaluation: 04/06/18 Time of Evaluation: 03:15 - Subjective Subjective: dictated Objective - Vital Signs/Intake and Output Vital Signs (last 24 hours): Temp Pulse Resp BP Pulse Ox 97.7 F 70 24 127/75 100 04/06/18 15:30 04/06/18 15:25 04/06/18 16:41 04/06/18 16:45 04/06/18 15:35 Intake and Output: 04/06/18 04/06/18 06:59 18:59 Intake Total 400 900 Output Total 1100 300 Balance -700 600 - Medications Medications: Current Medications Acetaminophen (Tylenol 325mg Tab) 650 mg PO Q6 PRN PRN Reason: Fever >100.4 F Last Admin: 04/06/18 09:07 Dose: 650 mg Amlodipine Besylate (Norvasc) 10 mg PO DAILY [facility] Last Admin: 04/06/18 09:04 Dose: 10 mg Carvedilol (Coreg) 3.125 mg PO BID [facility] Last Admin: 04/06/18 18:36 Dose: 3.125 mg Clonidine HCl (Catapres) 0.2 mg PO TID [facility] Last Admin: 04/06/18 18:36 Dose: 0.2 mg Famotidine (Pepcid) 20 mg IVP DAILY [facility] Last Admin: 04/06/18 10:07 Dose: 20 mg Hydroxyzine HCl (Atarax) 25 mg PO Q6 PRN PRN Reason: Agitation Piperacillin Sod/Tazobactam (Sod 2.25 gm/ Sodium Chloride) 100 mls @ 200 mls/ hr IVPB Q8H [facility] PRN Reason: Protocol Last Admin: 04/06/18 12:13 Dose: 200 mls/hr Vancomycin/Sodium Chloride (Vancomycin 1 Gm/Ns 200 Ml) 1 gm in 200 mls @ 133 mls/hr IVPB TTS [facility] PRN Reason: Protocol Stop: 04/11/18 17:01 Gentamicin Sulfate 80 mg/ (Sodium Chloride) 102 mls @ 100 mls/hr IVPB TTS [facility] PRN Reason: Protocol Last Admin: 04/06/18 18:38 Dose: 100 mls/hr Metoclopramide HCl (Reglan) 10 mg IVP Q6H PRN PRN Reason: Nausea/Vomiting Last Admin: 04/05/18 22:16 Dose: 10 mg Ondansetron HCl (Zofran Inj) 4 mg IVP Q4H PRN PRN Reason: Nausea/Vomiting Last Admin: 04/06/18 01:37 Dose: 4 mg Trazodone HCl (Desyrel) 50 mg PO HS [facility] - Labs Labs: 04/06/18 06:28 04/06/18 06:28 PT 13.4 SECONDS (9.7-12.2) H 04/04/18 06:59 INR 1.2 04/04/18 06:59 APTT 32 SECONDS (21-34) 04/04/18 06:59
--- NOTE | 2018-04-06 19:10 | CP.CCUPN ---
CCU Subjective - Physician Review Events Since Last Encounter (Free Text): 04/06/18 19:08 The Patient was seen and examined at the bedside, Medical records reviewed, and management issues were discussed and formulated with the house staff. Events reviewed Patient was transferred out the ICU and during HD [employer]IVER was called for AMS and hypotension which resolved immediately, patient never lost pulse Pt AAO x3. Alert, follows commands Denies any chest pain, SOB or Palpitations Afebrile, NSR on the monitor Blood cultures: POSITIVE for Gram Positive Cocci Bacteremia Platelets cout of 13, no evidance of active bleed CCU Objective - Vital Signs / Intake & Output Vital Signs (Last 4 hours): Vital Signs Temp Pulse Resp BP BP Pulse Ox 04/06/18 16:45 127/75 04/06/18 16:43 78/70 L 04/06/18 16:42 82/51 L 04/06/18 16:41 24 97/47 L 04/06/18 16:35 20 119/67 04/06/18 16:20 128/74 04/06/18 16:05 20 133/84 04/06/18 15:50 18 121/80 04/06/18 15:35 18 131/80 100 04/06/18 15:30 97.7 F 18 131/80 100 04/06/18 15:25 97.7 F 70 18 122/80 Intake and Output (Last 8hrs): Intake & Output 04/06/18 04/06/18 04/06/18 06:59 14:59 22:59 Intake Total 100 900 Output Total 550 300 Balance -450 600 Intake: Intake, IV Amount 100 Left Forearm 100 Oral 0 900 Output: Urine 350 300 Urine, Voided 350 300 Emesis 200 Other: # Voids Urine, Voided 1 - Physical Exam Head: Positive for: Atraumatic, Normocephalic Pupils: Positive for: PERRL Extroacular Muscles: Positive for: EOMI Conjunctiva: Positive for: Normal Mouth: Positive for: Moist Mucous Membranes Pharnyx: Positive for: Normal. Negative for: ERYTHEMA Neck: Positive for: Normal Range of Motion, Bruit, Trachea Midline Respiratory/Chest: Positive for: Clear to Auscultation, Good Air Exchange. Negative for: Respiratory Distress, Accessory Muscle Use, Wheezes, Rales, Rhonchi Cardiovascular: Positive for: Regular Rate and Rhythm, Normal S1, S2, Peripheal Pulses Present. Negative for: Murmurs, Irregular Rhythm Abdomen: Positive for: Distention, Normal Bowel Sounds. Negative for: Tenderness Back: Negative for: CVA Tenderness Neurological: Positive for: GCS=15, CN II-XII Intact, Speech Normal, Motor Func Grossly Intact, Normal Sensory Function - Medications Active Medications: Active Medications Generic Name Dose Route Start Last Admin Trade Name Freq PRN Reason Stop Dose Admin Acetaminophen 650 mg 04/04/18 12:07 04/06/18 09:07 Tylenol 325mg Tab PO 650 mg Q6 PRN Administration Fever >100.4 F Amlodipine Besylate 10 mg 04/05/18 14:00 04/06/18 09:04 Norvasc PO 10 mg DAILY GUILLE Administration Carvedilol 3.125 mg 04/06/18 10:00 04/06/18 18:36 Coreg PO 3.125 mg BID GUILLE Administration Clonidine HCl 0.2 mg 04/06/18 10:00 04/06/18 18:36 Catapres PO 0.2 mg TID GUILLE Administration Famotidine 20 mg 04/05/18 10:00 04/06/18 10:07 Pepcid IVP 20 mg DAILY GUILLE Administration Hydroxyzine HCl 25 mg 04/06/18 18:06 Atarax PO Q6 PRN Agitation Piperacillin Sod/Tazobactam 100 mls @ 200 mls/hr 04/04/18 20:00 04/06/18 12: 13 Sod 2.25 gm/ Sodium Chloride IVPB 200 mls/hr Q8H GUILLE Administration Protocol Vancomycin/Sodium Chloride 1 gm in 200 mls @ 133 mls/hr 04/06/18 17:00 Vancomycin 1 Gm/Ns 200 Ml IVPB 04/11/18 17:01 TTS GUILLE Protocol Gentamicin Sulfate 80 mg/ 102 mls @ 100 mls/hr 04/06/18 16:30 04/06/18 18:38 Sodium Chloride IVPB 100 mls/hr TTS GUILLE Administration Protocol Metoclopramide HCl 10 mg 04/04/18 13:31 04/05/18 22:16 Reglan IVP 10 mg Q6H PRN Administration Nausea/Vomiting Ondansetron HCl 4 mg 04/05/18 15:54 04/06/18 01:37 Zofran Inj IVP 4 mg Q4H PRN Administration Nausea/Vomiting Trazodone HCl 50 mg 04/06/18 22:00 Desyrel PO HS GUILLE - Patient Studies Lab Studies: Microbiology Studies 04/04/18 13:31 Blood Culture - Preliminary Blood Staphylococcus Aureus Gram Stain - Final 04/04/18 13:31 S.aureus & Coag-Neg Staph PNA FISH - Final Blood Blood Culture - Preliminary Staphylococcus Aureus Gram Stain - Final 04/04/18 16:20 MRSA Culture (Admit) - Final Naris MRSA NOT DETECTED Lab Studies 04/06/18 04/06/18 04/06/18 Range/Units 07:08 06:28 06:28 WBC (4.8-10.8) K/uL RBC (4.40-5.90) Mil/uL Hgb (12.0-18.0) g/dL Hct (35.0-51.0) % MCV (80.0-94.0) fL MCH (27.0-31.0) pg MCHC (33.0-37.0) g/dL RDW (11.5-14.5) % Plt Count (130-400) K/uL MPV (7.2-11.7) fL Neut % (Auto) (50.0-75.0) % Lymph % (Auto) (20.0-40.0) % Barton % (Auto) (0.0-10.0) % Eos % (Auto) (0.0-4.0) % Baso % (Auto) (0.0-2.0) % Neut # (Auto) (1.8-7.0) K/uL Lymph # (Auto) (1.0-4.3) K/uL Barton # (Auto) (0.0-0.8) K/uL Eos # (Auto) (0.0-0.7) K/uL Baso # (Auto) (0.0-0.2) K/uL Neutrophils % (Manual) (50-75) % Lymphocytes % (Manual) (20-40) % Monocytes % (Manual) (0-10) % Platelet Estimate (NORMAL) Large Platelets Giant Platelets Anisocytosis (manual) Sodium 148 (132-148) mmol/L Potassium 4.6 (3.6-5.2) mmol/L Chloride 105 (98-107) mmol/L Carbon Dioxide 21 L (22-30) mmol/L Anion Gap 27 H (10-20) BUN 39 H (9-20) mg/dL Creatinine 5.8 H (0.8-1.5) mg/dL Est GFR ( Amer) 14 Est GFR (Non-Af Amer) 11 Random Glucose 104 (75-110) mg/dL Calcium 9.5 (8.6-10.4) mg/dl Phosphorus 4.5 (2.5-4.5) mg/dL Magnesium 2.4 H (1.6-2.3) mg/dL Total Bilirubin 1.5 H (0.2-1.3) mg/dL AST 40 (17-59) U/L ALT 32 (21-72) U/L Alkaline Phosphatase 136 H (38-126) U/L Total Protein 8.7 H (6.3-8.3) g/dL Albumin 4.5 (3.5-5.0) g/dL Globulin 4.2 H (2.2-3.9) gm/dL Albumin/Globulin Ratio 1.1 (1.0-2.1) Random Vancomycin 26.8 ug/mL 04/06/18 Range/Units 06:28 WBC 27.0 H (4.8-10.8) K/uL RBC 4.17 L (4.40-5.90) Mil/uL Hgb 13.0 (12.0-18.0) g/dL Hct 38.3 (35.0-51.0) % MCV 91.8 (80.0-94.0) fL MCH 31.1 H (27.0-31.0) pg MCHC 33.8 (33.0-37.0) g/dL RDW 15.1 H (11.5-14.5) % Plt Count 15 L* D (130-400) K/uL MPV 9.9 (7.2-11.7) fL Neut % (Auto) 81.0 H (50.0-75.0) % Lymph % (Auto) 9.1 L (20.0-40.0) % Barton % (Auto) 9.4 (0.0-10.0) % Eos % (Auto) 0.0 (0.0-4.0) % Baso % (Auto) 0.5 (0.0-2.0) % Neut # (Auto) 21.8 H (1.8-7.0) K/uL Lymph # (Auto) 2.5 (1.0-4.3) K/uL Barton # (Auto) 2.5 H (0.0-0.8) K/uL Eos # (Auto) 0.0 (0.0-0.7) K/uL Baso # (Auto) 0.1 (0.0-0.2) K/uL Neutrophils % (Manual) 86 H (50-75) % Lymphocytes % (Manual) 7 L (20-40) % Monocytes % (Manual) 7 (0-10) % Platelet Estimate Markedly decreased L (NORMAL) Large Platelets Present Giant Platelets Present Anisocytosis (manual) Slight Sodium (132-148) mmol/L Potassium (3.6-5.2) mmol/L Chloride (98-107) mmol/L Carbon Dioxide (22-30) mmol/L Anion Gap (10-20) BUN (9-20) mg/dL Creatinine (0.8-1.5) mg/dL Est GFR ( Amer) Est GFR (Non-Af Amer) Random Glucose (75-110) mg/dL Calcium (8.6-10.4) mg/dl Phosphorus (2.5-4.5) mg/dL Magnesium (1.6-2.3) mg/dL Total Bilirubin (0.2-1.3) mg/dL AST (17-59) U/L ALT (21-72) U/L Alkaline Phosphatase (38-126) U/L Total Protein (6.3-8.3) g/dL Albumin (3.5-5.0) g/dL Globulin (2.2-3.9) gm/dL Albumin/Globulin Ratio (1.0-2.1) Random Vancomycin ug/mL Laboratory Results - last 24 hr 04/06/18 04/06/18 04/06/18 06:28 06:28 06:28 WBC 27.0 H RBC 4.17 L Hgb 13.0 Hct 38.3 MCV 91.8 MCH 31.1 H MCHC 33.8 RDW 15.1 H Plt Count 15 L* D MPV 9.9 Neut % (Auto) 81.0 H Lymph % (Auto) 9.1 L Barton % (Auto) 9.4 Eos % (Auto) 0.0 Baso % (Auto) 0.5 Neut # (Auto) 21.8 H Lymph # (Auto) 2.5 Barton # (Auto) 2.5 H Eos # (Auto) 0.0 Baso # (Auto) 0.1 Neutrophils % (Manual) 86 H Lymphocytes % (Manual) 7 L Monocytes % (Manual) 7 Platelet Estimate Markedly decreased L Large Platelets Present Giant Platelets Present Anisocytosis (manual) Slight Sodium 148 Potassium 4.6 Chloride 105 Carbon Dioxide 21 L Anion Gap 27 H BUN 39 H Creatinine 5.8 H Est GFR ( Amer) 14 Est GFR (Non-Af Amer) 11 Random Glucose 104 Calcium 9.5 Phosphorus 4.5 Magnesium 2.4 H Total Bilirubin 1.5 H AST 40 ALT 32 Alkaline Phosphatase 136 H Total Protein 8.7 H Albumin 4.5 Globulin 4.2 H Albumin/Globulin Ratio 1.1 Random Vancomycin 04/06/18 07:08 WBC RBC Hgb Hct MCV MCH MCHC RDW Plt Count MPV Neut % (Auto) Lymph % (Auto) Barton % (Auto) Eos % (Auto) Baso % (Auto) Neut # (Auto) Lymph # (Auto) Barton # (Auto) Eos # (Auto) Baso # (Auto) Neutrophils % (Manual) Lymphocytes % (Manual) Monocytes % (Manual) Platelet Estimate Large Platelets Giant Platelets Anisocytosis (manual) Sodium Potassium Chloride Carbon Dioxide Anion Gap BUN Creatinine Est GFR ( Amer) Est GFR (Non-Af Amer) Random Glucose Calcium Phosphorus Magnesium Total Bilirubin AST ALT Alkaline Phosphatase Total Protein Albumin Globulin Albumin/Globulin Ratio Random Vancomycin 26.8 Review of Systems - Cardiovascular Cardiovascular: absent: Chest Pain, Chest Pain at Rest, Chest Pain with Activity - Respiratory Respiratory: absent: Cough, Dyspnea, Hemoptysis, Dyspnea on Exertion Critical Care Progress Note - Extremities/Vascular Does the Patient have a Central Venous Catheter?: No Does the Patient need a Central Venous Catheter?: No Does the Patient have a Turner Catheter?: No Does the Patient need a Turner Catheter?: No - Nutrition Nutrition: Nutrition Category Date Time Status Liquid Diet [DIET] Diets 04/05/18 Dinner Active Assessment/Plan (1) Sepsis Current Visit: Yes Status: Acute Priority: High Comment: Blood cultures: POS for Gram Positive Cocci Bacteremia Urine culture: NGTD Cont. Zosyn 2.25g IV Q8h Cont Vancomycin 1gm daily (check level) (2) Atypical hemolytic uremic syndrome Current Visit: Yes Status: Acute Priority: High (3) ESRD (end stage renal disease) on dialysis Current Visit: Yes Status: Acute Priority: High Comment: Continue Dialysis TTS (4) Line sepsis associated with dialysis catheter Current Visit: Yes Status: Acute Priority: High (5) Thrombocytopenia Current Visit: Yes Status: Acute Priority: High Comment: Severe Thrombocytopenia, Atypical Hemolytic uremic syndrome Hem/Onc consulted appreciated 1 Unit of Plts given yesterday, platelet count of 15 today Continue to monitor (6) Acute kidney failure Current Visit: No Status: Acute - Assessment and Plan (Free Text) Assessment: DVT: No chemical anticoagulation due to severe thrombocytopenia GI: Protonix 40mg daily
[2018-04-06] MEDS: Vancomycin 1 gm/NS 200 ml 1 GM/200 ML BAG IVPB SCH (19:41)
[2018-04-06 22:18] LABS: BARBITURATES, UR NEGATIVE (NEGATIVE); BENZODIAZEPINES, UR NEGATIVE (NEGATIVE); OPIATES, UR NEGATIVE (NEGATIVE); PHENCYCLIDINE, UR NEGATIVE (NEGATIVE)
--- NOTE | 2018-04-06 22:24 | CARD ---
APPROVED REPORT EXAM: LIMITED Two-dimensional and M-mode echocardiogram with color Doppler. Other Information Quality : GoodRhythm : INDICATION Infection:Rule out subacute bacterial endocarditis ESRD RISK FACTORS Hypertension Mitral Valve E/A ratio0.0 TDI E/Lateral E'0.0E/Medial E'0.0 LEFT VENTRICLE The left ventricle is normal size. There is normal left ventricular wall thickness. Left ventricle systolic function is normal. The Ejection Fraction is 65-70%. There is normal LV segmental wall motion. no spectral or tissue doppler There is no ventricular septal defect visualized. RIGHT VENTRICLE The right ventricle is normal size. The right ventricular systolic function is normal. ATRIA The left atrium size is normal. The right atrium size is normal. AORTIC VALVE The aortic valve is tri-cuspid. The aortic valve is normal in structure. No aortic regurgitation is present. There is no aortic valvular stenosis. MITRAL VALVE The mitral valve is normal in structure. There is no evidence of mitral valve prolapse. There is no mitral valve regurgitation noted. TRICUSPID VALVE The tricuspid valve is normal in structure. There is no tricuspid valve regurgitation noted. PULMONIC VALVE The pulmonary valve is normal in structure. There is trace pulmonic valvular regurgitation. GREAT VESSELS The aortic root is normal in size. The ascending aorta is normal in size. The IVC is normal in size and collapses >50% with inspiration. PERICARDIAL EFFUSION There is no pericardial effusion. <Conclusion> Left ventricle systolic function is normal. The Ejection Fraction is 65-70%. Normal appearing valves, VERONICA is more specific in rouling out vegetations
--- NOTE | 2018-04-06 22:47 | PN ---
DATE: 04/06/2018 SUBJECTIVE: The patient was seen today. He was having dialysis. He was seen there, and the patient did not communicate much. He was awake and alert, however, and his platelets have been the problem, and the nurse told me that his catheter has been changed which I want to see I do not see a note. He has been found to have Staphylococcus aureus in the blood. Sensitivity is pending. We will order vancomycin after each dialysis and gentamicin for now and Zyvox, and the patient will need a change of catheter, I do not see a note where it says that it was changed so I am not sure if dialysis nurses know about it, but I ordered another set of cultures. PHYSICAL EXAMINATION: VITAL SIGNS: T-max is 97.7, pulse 70 today, blood pressure is 122/80, respirations are 18. GENERAL: He is awake and alert with no complaints. HEENT: Head is atraumatic. NECK: Supple. LUNGS: Clear. HEART: S1, S2 is regular. ABDOMEN: Remains prominent. No guarding. No rigidity present. LABORATORY DATA: His labs are noted. Labs show white count is 27 today, hemoglobin is 13, hematocrit 38, platelet count is 15, and I will order an echocardiogram at this time as he has septicemia with catheter sepsis. We will need the catheter to be changed if it is not done so; and the patient is a dialysis patient, so we will need vancomycin and gentamicin ordered at this time. I have also left Zosyn on till the sensitivities come back, and we will follow. Jaswant Gilmore MD
[2018-04-07] MEDS: Piperacillin/Tazobact 2.25 GM in Sodium Chloride 100 ML IVPB SCH ×2 (04:02→11:40)
[2018-04-07 06:28] LABS: ALB/GLOB RATIO 1.4 (1.0-2.1); ALBUMIN 4.2 g/dL (3.5-5.0); CALCIUM 8.6 mg/dl (8.6-10.4)
[2018-04-07 06:34] LABS: BASO # 0.1 K/uL (0.0-0.2); BASO % 0.5 % (0.0-2.0); EOS # 0.5 K/uL (0.0-0.7); EOS % 3.4 % (0.0-4.0); HEMOGLOBIN 11.3 g/dL (12.0-18.0); LYMPH # 2.8 K/uL (1.0-4.3); LYMPH % 19.6 % (20.0-40.0); MEAN CELL VOLUME 91.5 fL (80.0-94.0); MEAN CORPUSCULAR HEMOGLOBIN 30.8 pg (27.0-31.0); MEAN CORPUSCULAR HGB CONC 33.7 g/dL (33.0-37.0); MEAN PLATELET VOLUME 9.9 fL (7.2-11.7); MONO % 13.9 % (0.0-10.0); NEUT % 62.6 % (50.0-75.0); NRBC % 0.1 % (0.0-2.0); RBC 3.66 Mil/uL (4.40-5.90); RED CELL DISTRIBUTION WIDTH 15.4 % (11.5-14.5); WHITE BLOOD COUNT 14.4 K/uL (4.8-10.8)
--- NOTE | 2018-04-07 10:30 | CP.PCM.CON ---
History of Present Illness - History of Present Illness History of Present Illness: Palliative consult requested by Doctor Quinones for goals of care discussion and patient support Patient is a 32 yo male admitted from HD with complaints of headache, generalized weakness and malaise. These was accompanied by fever, vomiting and nausea. Due to symptoms patient missed last 2 HD sessions. Upon admission patient diagnosed with sepsis. BC + cocci. Triple IV antibiotics on board. Yesterday during HD patient sustained brief AMS. PROPERTY CONDITION ASSESSOR was called for low BP. Patient transferred to ICU for closer monitoring. PMH: HTN, ESRD wih HD, thrombocytopenia Soc. Hx; single, was left by mother at age of 14 months, father when patient was at age of 3, brought up by Grand mother, lives with female fremiquel who provides intermediate and food for him. has two caseins but no close relationship with them Fam. Hx: denies known fam Hx Review of Systems - Constitutional Constitutional: Lethargy - EENT Eyes: absent: As Per HPI, Blind Spots, Blurred Vision, Change in Vision, Decreased Night Vision, Diplopia, Discharge, Dry Eye, Exophthalmos, Floaters, Irritation, Itchy Eyes, Loss of Peripheral Vision, Pain, Photophobia, Requires Corrective Lenses, Sees Flashes, Spots in Vision, Tunnel Vision, Other Visual Disturbances, Loss of Vision, Other Ears: Decreased Hearing Nose/Mouth/Throat: Sore Throat - Cardiovascular Cardiovascular: absent: As Per HPI, Acrocyanosis, Chest Pain, Chest Pain at Rest , Chest Pain with Activity, Claudication, Diaphoresis, Dyspnea, Dyspnea on Exertion, Edema, Irregular Heart Rhythm, Pain Radiating to Arm/Neck/Jaw, Leg Edema, Leg Ulcers, Lightheadedness, Orthopnea, Palpitations, Paroxysmal Nocturnal Dyspnea, Pedal Edema, Radiating Pain, Rapid Heart Rate, Slow Heart Rate, Syncope, Other - Respiratory Respiratory: absent: As Per HPI, Cough, Dyspnea, Hemoptysis, Dyspnea on Exertion , Wheezing, Snoring, Stridor, Pain on Inspiration, Chest Congestion, Excessive Mucous Production, Change in Mucous Color, Pain with Coughing, Other - Gastrointestinal Gastrointestinal: absent: As Per HPI, Abdominal Pain, Belching, Bloating, Change in Bowel Habits, Change in Stool Character, Coffee Ground Emesis, Constipation, Cramping, Diarrhea, Dyspepsia, Dysphagia, Early Satiety, Excessive Flatus, Fecal Incontinence, Heartburn, Hematemesis, Hematochezia, Loose Stools, Melena, Nausea, Odynophagia, Temesmus, Vomiting, Other - Genitourinary Additional comments: On HD - Musculoskeletal Musculoskeletal: Myalgias - Integumentary Integumentary: absent: As Per HPI, Acne, Alopecia, Bleeding Lesions, Change in Hair, Change in Nails, Change in Pigmentation, Changing Lesions, Dry Skin, Erythema, Furuncle, Hirsutism, Lesions, New Lesions, Non-Healing Lesions, Photosensitivity, Pruritus, Rash, Skin Pain, Skin Ulcer, Sores, Striae, Swelling , Unusual Bruising, Wounds, Jaundice, Other - Neurological Neurological: Confusion, Memory Loss - Psychiatric Psychiatric: Confusion, Memory Loss - Endocrine Endocrine: absent: As Per HPI, Change in Body Appearance, Change in Libido, Cold Intolorance, Deepening of Voice, Excessive Sweating, Fatigue, Flushing, Heat Intolorance, Increase in Ring/Shoe/Hat Size, Palpitations, Polydipsia, Polyphagia, Polyuria, Other - Hematologic/Lymphatic Hematologic: Easy Bleeding Past Patient History - Infectious Disease Hx of Infectious Diseases: None - Past Medical History & Family History Past Medical History?: Yes - Past Social History Smoking Status: Never Smoked - CARDIAC Hx Hypertension: Yes - PULMONARY Hx Respiratory Disorders: No - NEUROLOGICAL Hx Neurological Disorder: No - HEENT Hx HEENT Problems: Yes Hx Deafness: (LEFT HEARING AID) Other/Comment: HEARING IMPAIRED - RENAL Hx Chronic Kidney Disease: Yes - ENDOCRINE/METABOLIC Hx Endocrine Disorders: No - HEMATOLOGICAL/ONCOLOGICAL Hx Blood Disorders: Yes Other/Comment: Thrombocytopenia - INTEGUMENTARY Hx Dermatological Problems: No - MUSCULOSKELETAL/RHEUMATOLOGICAL Hx Musculoskeletal Disorders: No - GASTROINTESTINAL Hx Gastrointestinal Disorders: No - GENITOURINARY/GYNECOLOGICAL Hx Genitourinary Disorders: No - PSYCHIATRIC Hx Substance Use: No - SURGICAL HISTORY Hx Surgeries: Yes Other/Comment: peritoneal dialysis catheter 05/2017. right chest wall permacath - ANESTHESIA Hx Anesthesia: Yes Hx Anesthesia Reactions: No Hx Malignant Hyperthermia: No Meds Home Medications: Home Medication List Medication Instructions Recorded Confirmed Type Clindamycin [Cleocin] 300 mg PO TID #42 cap 04/05/18 Rx Allergies/Adverse Reactions: Allergies Allergy/AdvReac Type Severity Reaction Status Date / Time aspirin AdvReac ANAPHYLAXIS Verified 04/04/18 06:28 - Medications Medications: Current Medications Acetaminophen (Tylenol 325mg Tab) 650 mg PO Q6 PRN PRN Reason: Fever >100.4 F Last Admin: 04/06/18 09:07 Dose: 650 mg Amlodipine Besylate (Norvasc) 10 mg PO DAILY [facility] Last Admin: 04/07/18 09:30 Dose: 10 mg Carvedilol (Coreg) 3.125 mg PO BID [facility] Last Admin: 04/07/18 09:31 Dose: 3.125 mg Clonidine HCl (Catapres) 0.2 mg PO TID [facility] Last Admin: 04/07/18 09:31 Dose: 0.2 mg Famotidine (Pepcid) 20 mg IVP DAILY [facility] Last Admin: 04/06/18 10:07 Dose: 20 mg Hydroxyzine HCl (Atarax) 25 mg PO Q6 PRN PRN Reason: Agitation Piperacillin Sod/Tazobactam (Sod 2.25 gm/ Sodium Chloride) 100 mls @ 200 mls/ hr IVPB Q8H [facility] PRN Reason: Protocol Last Admin: 04/07/18 04:02 Dose: 200 mls/hr Vancomycin/Sodium Chloride (Vancomycin 1 Gm/Ns 200 Ml) 1 gm in 200 mls @ 133 mls/hr IVPB TTS [facility] PRN Reason: Protocol Stop: 04/11/18 17:01 Last Admin: 04/06/18 19:41 Dose: 133 mls/hr Gentamicin Sulfate 80 mg/ (Sodium Chloride) 102 mls @ 100 mls/hr IVPB TTS [facility] PRN Reason: Protocol Last Admin: 04/06/18 18:38 Dose: 100 mls/hr Metoclopramide HCl (Reglan) 10 mg IVP Q6H PRN PRN Reason: Nausea/Vomiting Last Admin: 04/05/18 22:16 Dose: 10 mg Ondansetron HCl (Zofran Inj) 4 mg IVP Q4H PRN PRN Reason: Nausea/Vomiting Last Admin: 04/06/18 01:37 Dose: 4 mg Trazodone HCl (Desyrel) 50 mg PO HS [facility] Last Admin: 04/06/18 22:00 Dose: 50 mg Physical Exam - Constitutional Appears: No Acute Distress - Head Exam Head Exam: ATRAUMATIC, NORMAL INSPECTION, NORMOCEPHALIC - Eye Exam Eye Exam: EOMI, Normal appearance, PERRL Pupil Exam: NORMAL ACCOMODATION, PERRL - ENT Exam Additional comments: [place] to left ear - Neck Exam Neck exam: Positive for: Normal Inspection - Respiratory Exam Respiratory Exam: NORMAL BREATHING PATTERN - Cardiovascular Exam Cardiovascular Exam: REGULAR RHYTHM - GI/Abdominal Exam GI & Abdominal Exam: Normal Bowel Sounds, Soft - Rectal Exam Rectal Exam: Deferred - Exam Exam: NORMAL INSPECTION - Extremities Exam Extremities exam: Positive for: normal inspection - Back Exam Back exam: NORMAL INSPECTION - Neurological Exam Neurological exam: Alert, Altered - Psychiatric Exam Psychiatric exam: Normal Affect, Normal Mood - Skin Skin Exam: Normal Color, Warm Results - Vital Signs Recent Vital Signs: Last Vital Signs Temp 98 F 04/07/18 04:00 Pulse 74 04/07/18 06:00 Resp 14 04/07/18 06:00 BP 118/85 04/07/18 05:14 Pulse Ox 95 04/07/18 06:00 - Labs Result Diagrams: 04/07/18 05:53 04/07/18 05:55 Labs: Laboratory Results - last 24 hr 04/06/18 04/07/18 04/07/18 21:50 05:53 05:55 WBC 14.4 H RBC 3.66 L Hgb 11.3 L Hct 33.5 L MCV 91.5 MCH 30.8 MCHC 33.7 RDW 15.4 H Plt Count 11 L* MPV 9.9 Neut % (Auto) 62.6 Lymph % (Auto) 19.6 L Hendricks % (Auto) 13.9 H Eos % (Auto) 3.4 Baso % (Auto) 0.5 Neut # (Auto) 9.0 H Lymph # (Auto) 2.8 Hendricks # (Auto) 2.0 H Eos # (Auto) 0.5 Baso # (Auto) 0.1 Differential Comment Sodium 140 Potassium 3.9 Chloride 105 Carbon Dioxide 23 Anion Gap 17 BUN 32 H Creatinine 5.3 H Est GFR ( Amer) 15 Est GFR (Non-Af Amer) 13 Random Glucose 84 Calcium 8.6 Phosphorus Magnesium Total Bilirubin 1.3 AST 23 ALT 35 Alkaline Phosphatase 97 Total Protein 7.1 Albumin 4.2 Globulin 3.0 Albumin/Globulin Ratio 1.4 Urine Opiates Screen Negative Urine Methadone Screen Negative Ur Barbiturates Screen Negative Ur Phencyclidine Scrn Negative Ur Amphetamines Screen Negative U Benzodiazepines Scrn Negative U Oth Cocaine Metabols Negative U Cannabinoids Screen Negative 04/07/18 05:55 WBC RBC Hgb Hct MCV MCH MCHC RDW Plt Count MPV Neut % (Auto) Lymph % (Auto) Hendricks % (Auto) Eos % (Auto) Baso % (Auto) Neut # (Auto) Lymph # (Auto) Hendricks # (Auto) Eos # (Auto) Baso # (Auto) Differential Comment Sodium Potassium Chloride Carbon Dioxide Anion Gap BUN Creatinine Est GFR ( Amer) Est GFR (Non-Af Amer) Random Glucose Calcium Phosphorus 3.9 Magnesium 2.2 Total Bilirubin AST ALT Alkaline Phosphatase Total Protein Albumin Globulin Albumin/Globulin Ratio Urine Opiates Screen Urine Methadone Screen Ur Barbiturates Screen Ur Phencyclidine Scrn Ur Amphetamines Screen U Benzodiazepines Scrn U Oth Cocaine Metabols U Cannabinoids Screen Assessment & Plan - Assessment and Plan (Free Text) Assessment: Palliative consult Full Code, no Advance directive on chat, PPS 40% I reviewed medical records, all diagnostic studies, examined and interviewed patient in the bed, In Demand translation used. Patient is alert, lethargic, Italian speaking only. During the interview patient fail asleep few times. I had to shake him up frequently to maintain his attention. At one point when I asked him if he knew where he was, patient did not know. Patient complains of headache and sore throat. Physical exam reveals well grown and developed male. Throat exam normal. Breathing non labored. Abdomen soft. Porth o cath to right chest covered with dressing, there is yellow drainage noted. Patient is able to move all 4 extremities freely and to fallow commends. BP 118/85, HR 74,afebrile. WBC down to 14.4, Plt 13 Goals of care discussed with patient. I elicited his understanding of his condition. Patient only complained of headache and sore throat. Patient made aware of current IV antibiotics Tx and need to remove Porth o cath as possible source of infection. Patient agreed. During interview I had sense that patient was not fully capable of making decisions as was falling asleep intermittently. When I questioned his decision making capacity, patient answered " it gets difficult when you are in my condition" . I asked permission to involve his two cousins in plan of care, and patient refused. Patient also admitted refusing some suggested interventions on this admission but was not sure what those were. I summarized for him what care he was given in terms of IV antibiotics and plan for Porth o Cath replacement. he agreed. I also emphisized the need to continue HD and he agreed again. This was shared with Doctor Quinones Impression * ESRD * Sepsis due to infected porth o cath * Intermittent confusion and memory loss * Decreased decision making capacity * Lack of family support * Headache * Sore throat Suggestion * Replace Porth o Cath * Tylenol PRN headache * Reorient patient X 3 upon each interaction * Lozenges for sore throat * Emphasize the needs for continuing HD * Advance planing time 45 min Palliative Care will fallow up with patient as needed.
[2018-04-07] MEDS ORDERED: DEXTROSE 5% IVPB STA (13:13)
[2018-04-07] MEDS ORDERED: ACETYLCYSTEINE IVPB STA (13:13)
[2018-04-07] MEDS ORDERED: WATER IVPB STA (13:13)
--- NOTE | 2018-04-07 13:44 | CP.PCM.PN ---
Subjective - Date & Time of Evaluation Date of Evaluation: 04/07/18 Time of Evaluation: 13:41 - Subjective Subjective: s/p dialysis 04/07 +MSSA bacteremia BP had dropped during dialysis- will decrease UF goal alert now; no new complaint Objective - Vital Signs/Intake and Output Vital Signs (last 24 hours): Temp Pulse Resp BP Pulse Ox 98.6 F 72 17 137/91 H 98 04/07/18 08:00 04/07/18 10:02 04/07/18 10:02 04/07/18 10:02 04/07/18 10:00 Intake and Output: 04/07/18 04/07/18 06:59 18:59 Intake Total 680 400 Output Total 150 Balance 530 400 - Medications Medications: Current Medications Acetaminophen (Tylenol 325mg Tab) 650 mg PO Q6 PRN PRN Reason: Fever >100.4 F Last Admin: 04/06/18 09:07 Dose: 650 mg Amlodipine Besylate (Norvasc) 10 mg PO DAILY [facility] Last Admin: 04/07/18 09:30 Dose: 10 mg Carvedilol (Coreg) 3.125 mg PO BID [facility] Last Admin: 04/07/18 09:31 Dose: 3.125 mg Clonidine HCl (Catapres) 0.1 mg PO TID [facility] Famotidine (Pepcid) 20 mg IVP DAILY [facility] Last Admin: 04/07/18 09:39 Dose: 20 mg Hydroxyzine HCl (Atarax) 25 mg PO Q6 PRN PRN Reason: Agitation Piperacillin Sod/Tazobactam (Sod 2.25 gm/ Sodium Chloride) 100 mls @ 200 mls/ hr IVPB Q8H [facility] PRN Reason: Protocol Last Admin: 04/07/18 11:40 Dose: 200 mls/hr Vancomycin/Sodium Chloride (Vancomycin 1 Gm/Ns 200 Ml) 1 gm in 200 mls @ 133 mls/hr IVPB TTS [facility] PRN Reason: Protocol Stop: 04/11/18 17:01 Last Admin: 04/06/18 19:41 Dose: 133 mls/hr Gentamicin Sulfate 80 mg/ (Sodium Chloride) 102 mls @ 100 mls/hr IVPB TTS [facility] PRN Reason: Protocol Last Admin: 04/06/18 18:38 Dose: 100 mls/hr Acetylcysteine 12,315 mg/ (Dextrose) 261.575 mls @ 261.575 mls/hr IVPB [facility] Stop: 04/07/18 14:12 Acetylcysteine 12,315 mg/ (Dextrose) 1,000 mls @ 58.8 mls/hr IVPB DAILY [facility] Stop: 04/17/18 12:49 Metoclopramide HCl (Reglan) 10 mg IVP Q6H PRN PRN Reason: Nausea/Vomiting Last Admin: 04/05/18 22:16 Dose: 10 mg Ondansetron HCl (Zofran Inj) 4 mg IVP Q4H PRN PRN Reason: Nausea/Vomiting Last Admin: 04/06/18 01:37 Dose: 4 mg Trazodone HCl (Desyrel) 50 mg PO HS [facility] Last Admin: 04/06/18 22:00 Dose: 50 mg - Labs Labs: 04/07/18 05:53 04/07/18 05:55 PT 13.4 SECONDS (9.7-12.2) H 04/04/18 06:59 INR 1.2 04/04/18 06:59 APTT 32 SECONDS (21-34) 04/04/18 06:59 - Constitutional Appears: No Acute Distress, Chronically Ill - Head Exam Head Exam: ATRAUMATIC, NORMAL INSPECTION - Eye Exam Eye Exam: EOMI, Normal appearance - Neck Exam Neck Exam: Normal Inspection. absent: Tenderness - Respiratory Exam Respiratory Exam: Clear to Ausculation Bilateral, NORMAL BREATHING PATTERN - Cardiovascular Exam Cardiovascular Exam: REGULAR RHYTHM, +S1 - GI/Abdominal Exam GI & Abdominal Exam: Soft. absent: Tenderness - Extremities Exam Extremities Exam: Normal Inspection. absent: Tenderness - Neurological Exam Neurological Exam: Alert, CN II-XII Intact - Skin Skin Exam: Dry, Warm Assessment and Plan (1) Atypical hemolytic uremic syndrome Status: Acute (2) Line sepsis associated with dialysis catheter Status: Acute (3) ESRD (end stage renal disease) on dialysis Status: Acute (4) Thrombocytopenia Status: Acute - Assessment and Plan (Free Text) Plan: Decrease UF goal decrease BP meds IV ABs for MSSA bacteremia dialysis TTS
--- NOTE | 2018-04-07 14:21 | CP.PCM.PN ---
Subjective - Date & Time of Evaluation Date of Evaluation: 04/07/18 Time of Evaluation: 14:15 - Subjective Subjective: Medical Attending Note Patient seen and examined at bedside. Patient denies headache, denies chest pain, denies palpitations, denies nausea, denies abdominal pain, denies shortness of breathe. Patient reports he is tolerating diet and reports he is feeling ok. Discussed with ID, recommending for Naficillin IV for MSSA. Objective - Vital Signs/Intake and Output Vital Signs (last 24 hours): Temp Pulse Resp BP Pulse Ox 98.9 F 73 14 101/72 98 04/07/18 12:00 04/07/18 13:11 04/07/18 13:11 04/07/18 13:11 04/07/18 12:00 Intake and Output: 04/07/18 04/07/18 06:59 18:59 Intake Total 680 850 Output Total 150 Balance 530 850 - Medications Medications: Current Medications Acetaminophen (Tylenol 325mg Tab) 650 mg PO Q6 PRN PRN Reason: Fever >100.4 F Last Admin: 04/06/18 09:07 Dose: 650 mg Amlodipine Besylate (Norvasc) 10 mg PO DAILY [facility] Last Admin: 04/07/18 09:30 Dose: 10 mg Carvedilol (Coreg) 3.125 mg PO BID [facility] Last Admin: 04/07/18 09:31 Dose: 3.125 mg Clonidine HCl (Catapres) 0.1 mg PO TID [facility] Famotidine (Pepcid) 20 mg IVP DAILY [facility] Last Admin: 04/07/18 09:39 Dose: 20 mg Hydroxyzine HCl (Atarax) 25 mg PO Q6 PRN PRN Reason: Agitation Vancomycin/Sodium Chloride (Vancomycin 1 Gm/Ns 200 Ml) 1 gm in 200 mls @ 133 mls/hr IVPB TTS [facility] PRN Reason: Protocol Stop: 04/11/18 17:01 Last Admin: 04/06/18 19:41 Dose: 133 mls/hr Gentamicin Sulfate 80 mg/ (Sodium Chloride) 102 mls @ 100 mls/hr IVPB TTS [facility] PRN Reason: Protocol Last Admin: 04/06/18 18:38 Dose: 100 mls/hr Acetylcysteine 12,315 mg/ (Dextrose) 1,000 mls @ 58.8 mls/hr IVPB DAILY [facility] Stop: 04/17/18 12:49 Nafcillin Sodium 2 gm/ Sodium (Chloride) 250 mls @ 250 mls/hr IVPB Q6H [facility] PRN Reason: Protocol Metoclopramide HCl (Reglan) 10 mg IVP Q6H PRN PRN Reason: Nausea/Vomiting Last Admin: 04/05/18 22:16 Dose: 10 mg Ondansetron HCl (Zofran Inj) 4 mg IVP Q4H PRN PRN Reason: Nausea/Vomiting Last Admin: 04/06/18 01:37 Dose: 4 mg Trazodone HCl (Desyrel) 50 mg PO HS [facility] Last Admin: 04/06/18 22:00 Dose: 50 mg - Labs Labs: 04/07/18 05:53 04/07/18 05:55 PT 13.4 SECONDS (9.7-12.2) H 04/04/18 06:59 INR 1.2 04/04/18 06:59 APTT 32 SECONDS (21-34) 04/04/18 06:59 - Constitutional Appears: Non-toxic, No Acute Distress - Head Exam Head Exam: NORMAL INSPECTION - Eye Exam Eye Exam: EOMI - ENT Exam ENT Exam: Mucous Membranes Moist - Respiratory Exam Respiratory Exam: Clear to Ausculation Bilateral, NORMAL BREATHING PATTERN. absent: Rales, Rhonchi, Wheezes - Cardiovascular Exam Cardiovascular Exam: REGULAR RHYTHM, +S1, +S2 - GI/Abdominal Exam GI & Abdominal Exam: Soft, Normal Bowel Sounds. absent: Distended, Firm, Guarding, Rigid, Tenderness, Rebound - Extremities Exam Extremities Exam: absent: Pedal Edema, Tenderness - Back Exam Back Exam: absent: CVA tenderness (L), CVA tenderness (R), paraspinal tenderness - Neurological Exam Neurological Exam: Alert, Awake, Oriented x3 - Psychiatric Exam Psychiatric exam: Normal Affect, Normal Mood - Skin Skin Exam: Dry, Intact, Normal Color, Warm. absent: Petechiae Attending/Attestation - Attestation I have personally seen and examined this patient.: Yes I have fully participated in the care of the patient.: Yes I have reviewed all pertinent clinical information, including history, physical exam and plan: Yes Notes (Text): (1) Sepsis Bacteremia Infected Dialysis Catheter Assessment and Plan: * Sepsis likely secondary to catheter infection and bactermia * Criteria: Febrile (103F), Tachycardic, leukocytosis (WBC 25.1), elevated lactate * White count improving but infected dialysis catheter remains; issue remains thrombocytopenia bleeding risk * In ED, patient was given Zosyn 2.25gm and Vancomycin 1gm IV. * Lactate increased from 1.6 at admission to 3.2--> lactate: 1.5 * Blood culture (04/04/18): MSSA * UA: negative for infection; 2+ protein; urine culture (03/31): no growth * Influenza- negative * Chest xray: no active pulmonary disease * Tylenol 650mg PO Q6H >100.4F * ID consulted, Dr. Gilmore. Help appreciated * Gentamicin 80mg IVPB TThS (active since 04/06/18) * Vancomycin 1 gram IVPB TThS (Active since 04/06/18) * Naficillin 2mg IV Q6H (active since 04/07/18) * Surgery consulted, Dr. Quach. Help appreciated * ICU consulted. Patient accepted and transferred to ICU Bed 15 on 04/04/18. Further management as per ICU team. Transferred back on 04/06/18 following syncopal episode during dialysis Medications: * Reglan 10mg IV Q6h PRN for nausea/vomiting * Tylenol 650mg PO Q6h PRN for fevers/pain * Cooling blanket ordered but not available Status: Acute (2) ESRD (end stage renal disease) on dialysis Assessment and Plan: * Dialysis schedule: TTS * Scheduled for Dialysis today, as patient missed two sessions. * Nephrology consulted, Dr. Villasenor. Help appreciated * Sepsis likely secondary to catheter infection. Will likely be removed and replaced * We will need to follow-up with surgery to determine when to replace dialysis catheter. Patient has refuses peritoneal dialysis. Status: Acute (3) Hyperkalemia-->normalized Assessment and Plan: * Secondary to ESRD * EKG: sinus tachycardia; no ST or T wave changes. * Recieving dialysis today * Duonebs and one dose of kayexalate given. * Continue to monitor electrolytes. * lowered Status: Acute (4) Severe thrombocytopenia Assessment and Plan: * Hem/Onc consulted, Dr. Benites. Help appreciated * patient diagnosed with atypical HUS; on solaris; awaiting evaluation by subspecialist as outpatient but limited secondary to affordability * At admission, platelet count of 6-->3-->15-->11 * Patient's 2 units of platelets total * Type and cross * Continue to monitor * possible sepsis to consider * CT head (04/04) and (04/06): negative Status: Acute (5) Atypical hemolytic uremic syndrome Assessment and Plan: * Hx of atypical HUS and thrombocytopenia. * Heme/Onc consulted, Dr. Benites. Help appreciated. * Renal biopsy confirmed in prior hospitalization noted in the EMR Status: Acute (6) Hypertension Assessment and Plan: * Home medication: * Clonidine 0.2mg PO BID * Norvasc 10mg PO daily * Coreg 3.125mg PO BID Status: Chronic (7) Headache Assessment and Plan: * Head CT: no mass, hemorrhage, or acute infarct identified. mild cerebral atrophy. Status: Acute (8) Prophylactic measure Assessment and Plan: * DVT: No chemical anticoagulation due to severe thrombocytopenia * GI: Pepcid 20mg Iv q daily * Palliative consult: goals of care-->help appreciated Status: Acute
--- NOTE | 2018-04-07 14:34 | CP.PCM.PN ---
Subjective - Date & Time of Evaluation Date of Evaluation: 04/07/18 Time of Evaluation: 02:00 - Subjective Subjective: dictated Objective - Vital Signs/Intake and Output Vital Signs (last 24 hours): Temp Pulse Resp BP Pulse Ox 98.9 F 73 14 101/72 98 04/07/18 12:00 04/07/18 13:11 04/07/18 13:11 04/07/18 13:11 04/07/18 12:00 Intake and Output: 04/07/18 04/07/18 06:59 18:59 Intake Total 680 850 Output Total 150 Balance 530 850 - Medications Medications: Current Medications Acetaminophen (Tylenol 325mg Tab) 650 mg PO Q6 PRN PRN Reason: Fever >100.4 F Last Admin: 04/06/18 09:07 Dose: 650 mg Amlodipine Besylate (Norvasc) 10 mg PO DAILY [facility] Last Admin: 04/07/18 09:30 Dose: 10 mg Carvedilol (Coreg) 3.125 mg PO BID [facility] Last Admin: 04/07/18 09:31 Dose: 3.125 mg Clonidine HCl (Catapres) 0.1 mg PO TID [facility] Last Admin: 04/07/18 14:16 Dose: 0.1 mg Famotidine (Pepcid) 20 mg IVP DAILY [facility] Last Admin: 04/07/18 09:39 Dose: 20 mg Hydroxyzine HCl (Atarax) 25 mg PO Q6 PRN PRN Reason: Agitation Vancomycin/Sodium Chloride (Vancomycin 1 Gm/Ns 200 Ml) 1 gm in 200 mls @ 133 mls/hr IVPB TTS [facility] PRN Reason: Protocol Stop: 04/11/18 17:01 Last Admin: 04/06/18 19:41 Dose: 133 mls/hr Gentamicin Sulfate 80 mg/ (Sodium Chloride) 102 mls @ 100 mls/hr IVPB TTS [facility] PRN Reason: Protocol Last Admin: 04/06/18 18:38 Dose: 100 mls/hr Acetylcysteine 12,315 mg/ (Dextrose) 1,000 mls @ 58.8 mls/hr IVPB DAILY [facility] Stop: 04/17/18 12:49 Nafcillin Sodium 2 gm/ Sodium (Chloride) 250 mls @ 250 mls/hr IVPB Q6H [facility] PRN Reason: Protocol Metoclopramide HCl (Reglan) 10 mg IVP Q6H PRN PRN Reason: Nausea/Vomiting Last Admin: 04/05/18 22:16 Dose: 10 mg Ondansetron HCl (Zofran Inj) 4 mg IVP Q4H PRN PRN Reason: Nausea/Vomiting Last Admin: 04/06/18 01:37 Dose: 4 mg Trazodone HCl (Desyrel) 50 mg PO HS [facility] Last Admin: 04/06/18 22:00 Dose: 50 mg - Labs Labs: 04/07/18 05:53 04/07/18 05:55 PT 13.4 SECONDS (9.7-12.2) H 04/04/18 06:59 INR 1.2 04/04/18 06:59 APTT 32 SECONDS (21-34) 04/04/18 06:59
--- NOTE | 2018-04-07 17:02 | CP.CCUPN ---
<Jewels Mcghee - Last Filed: 04/07/18 16:52> CCU Subjective - Physician Review Subjective (Free Text): Patient seen and examined at bedside. No overnight events reported. Patient denies any fever, chills, chest pain, SOB, nausea, vomiting, abdominal pain, changes in bowel habits. CCU Objective - Vital Signs / Intake & Output Vital Signs (Last 4 hours): Vital Signs Pulse Resp BP 04/07/18 13:11 73 14 101/72 04/07/18 13:00 68 14 Intake and Output (Last 8hrs): Intake & Output 04/07/18 04/07/18 04/07/18 06:59 14:59 22:59 Intake Total 50 850 0 Balance 50 850 0 Weight 181 lb 8 oz Intake: Oral 50 850 0 Other: # Voids Urine, Voided 250 - Physical Exam Head: Positive for: Atraumatic, Normocephalic Pupils: Positive for: PERRL Extroacular Muscles: Positive for: EOMI Conjunctiva: Positive for: Normal Mouth: Positive for: Moist Mucous Membranes Pharnyx: Positive for: Normal. Negative for: ERYTHEMA Neck: Positive for: Normal Range of Motion, Bruit, Trachea Midline Respiratory/Chest: Positive for: Clear to Auscultation, Good Air Exchange. Negative for: Respiratory Distress, Accessory Muscle Use, Wheezes, Rales, Rhonchi Cardiovascular: Positive for: Regular Rate and Rhythm, Normal S1, S2, Peripheal Pulses Present. Negative for: Murmurs, Irregular Rhythm Abdomen: Positive for: Distention, Normal Bowel Sounds. Negative for: Tenderness Back: Negative for: CVA Tenderness Neurological: Positive for: GCS=15, CN II-XII Intact, Speech Normal, Motor Func Grossly Intact, Normal Sensory Function - Medications Active Medications: Active Medications Generic Name Dose Route Start Last Admin Trade Name Freq PRN Reason Stop Dose Admin Acetaminophen 650 mg 04/04/18 12:07 04/06/18 09:07 Tylenol 325mg Tab PO 650 mg Q6 PRN Administration Fever >100.4 F Amlodipine Besylate 10 mg 04/05/18 14:00 04/07/18 09:30 Norvasc PO 10 mg DAILY GUILLE Administration Carvedilol 3.125 mg 04/06/18 10:00 04/07/18 09:31 Coreg PO 3.125 mg BID GUILLE Administration Clonidine HCl 0.1 mg 04/07/18 14:00 04/07/18 14:16 Catapres PO 0.1 mg TID GUILLE Administration Famotidine 20 mg 04/05/18 10:00 04/07/18 09:39 Pepcid IVP 20 mg DAILY GUILLE Administration Hydroxyzine HCl 25 mg 04/06/18 18:06 Atarax PO Q6 PRN Agitation Vancomycin/Sodium Chloride 1 gm in 200 mls @ 133 mls/hr 04/06/18 17:00 19:41 Vancomycin 1 Gm/Ns 200 Ml IVPB 04/11/18 17:01 133 mls/hr TTS GUILLE Administration Protocol Gentamicin Sulfate 80 mg/ 102 mls @ 100 mls/hr 04/06/18 16:30 04/06/18 18:38 Sodium Chloride IVPB 100 mls/hr TTS GUILLE Administration Protocol Acetylcysteine 12,315 mg/ 1,000 mls @ 58.8 mls/hr 04/08/18 10:00 Dextrose IVPB 04/17/18 12:49 DAILY GUILLE Nafcillin Sodium 2 gm/ Sodium 250 mls @ 250 mls/hr 04/07/18 15:00 04/07/18 15 :53 Chloride IVPB 250 mls/hr Q6H GUILLE Administration Protocol Metoclopramide HCl 10 mg 04/04/18 13:31 04/05/18 22:16 Reglan IVP 10 mg Q6H PRN Administration Nausea/Vomiting Ondansetron HCl 4 mg 04/05/18 15:54 04/06/18 01:37 Zofran Inj IVP 4 mg Q4H PRN Administration Nausea/Vomiting Trazodone HCl 50 mg 04/06/18 22:00 04/06/18 22:00 Desyrel PO 50 mg HS GUILLE Administration - Patient Studies Lab Studies: Microbiology Studies 04/04/18 13:31 Blood Culture - Final Blood Staphylococcus Aureus Gram Stain - Final 04/04/18 13:31 S.aureus & Coag-Neg Staph PNA FISH - Final Blood Blood Culture - Final Staphylococcus Aureus Gram Stain - Final Lab Studies 04/07/18 04/07/18 04/07/18 Range/Units 05:55 05:55 05:53 WBC 14.4 H (4.8-10.8) K/uL RBC 3.66 L (4.40-5.90) Mil/uL Hgb 11.3 L (12.0-18.0) g/dL Hct 33.5 L (35.0-51.0) % MCV 91.5 (80.0-94.0) fL MCH 30.8 (27.0-31.0) pg MCHC 33.7 (33.0-37.0) g/dL RDW 15.4 H (11.5-14.5) % Plt Count 11 L* (130-400) K/uL MPV 9.9 (7.2-11.7) fL Neut % (Auto) 62.6 (50.0-75.0) % Lymph % (Auto) 19.6 L (20.0-40.0) % Warren % (Auto) 13.9 H (0.0-10.0) % Eos % (Auto) 3.4 (0.0-4.0) % Baso % (Auto) 0.5 (0.0-2.0) % Neut # (Auto) 9.0 H (1.8-7.0) K/uL Lymph # (Auto) 2.8 (1.0-4.3) K/uL Warren # (Auto) 2.0 H (0.0-0.8) K/uL Eos # (Auto) 0.5 (0.0-0.7) K/uL Baso # (Auto) 0.1 (0.0-0.2) K/uL Differential Comment Sodium 140 (132-148) mmol/L Potassium 3.9 (3.6-5.2) mmol/L Chloride 105 (98-107) mmol/L Carbon Dioxide 23 (22-30) mmol/L Anion Gap 17 (10-20) BUN 32 H (9-20) mg/dL Creatinine 5.3 H (0.8-1.5) mg/dL Est GFR ( Amer) 15 Est GFR (Non-Af Amer) 13 Random Glucose 84 (75-110) mg/dL Calcium 8.6 (8.6-10.4) mg/dl Phosphorus 3.9 (2.5-4.5) mg/dL Magnesium 2.2 (1.6-2.3) mg/dL Total Bilirubin 1.3 (0.2-1.3) mg/dL AST 23 (17-59) U/L ALT 35 (21-72) U/L Alkaline Phosphatase 97 (38-126) U/L Total Protein 7.1 (6.3-8.3) g/dL Albumin 4.2 (3.5-5.0) g/dL Globulin 3.0 (2.2-3.9) gm/dL Albumin/Globulin Ratio 1.4 (1.0-2.1) Urine Opiates Screen (NEGATIVE) Urine Methadone Screen (NEGATIVE) Ur Barbiturates Screen (NEGATIVE) Ur Phencyclidine Scrn (NEGATIVE) Ur Amphetamines Screen (NEGATIVE) U Benzodiazepines Scrn (NEGATIVE) U Oth Cocaine Metabols (NEGATIVE) U Cannabinoids Screen (NEGATIVE) 04/06/18 Range/Units 21:50 WBC (4.8-10.8) K/uL RBC (4.40-5.90) Mil/uL Hgb (12.0-18.0) g/dL Hct (35.0-51.0) % MCV (80.0-94.0) fL MCH (27.0-31.0) pg MCHC (33.0-37.0) g/dL RDW (11.5-14.5) % Plt Count (130-400) K/uL MPV (7.2-11.7) fL Neut % (Auto) (50.0-75.0) % Lymph % (Auto) (20.0-40.0) % Warren % (Auto) (0.0-10.0) % Eos % (Auto) (0.0-4.0) % Baso % (Auto) (0.0-2.0) % Neut # (Auto) (1.8-7.0) K/uL Lymph # (Auto) (1.0-4.3) K/uL Warren # (Auto) (0.0-0.8) K/uL Eos # (Auto) (0.0-0.7) K/uL Baso # (Auto) (0.0-0.2) K/uL Differential Comment Sodium (132-148) mmol/L Potassium (3.6-5.2) mmol/L Chloride (98-107) mmol/L Carbon Dioxide (22-30) mmol/L Anion Gap (10-20) BUN (9-20) mg/dL Creatinine (0.8-1.5) mg/dL Est GFR ( Amer) Est GFR (Non-Af Amer) Random Glucose (75-110) mg/dL Calcium (8.6-10.4) mg/dl Phosphorus (2.5-4.5) mg/dL Magnesium (1.6-2.3) mg/dL Total Bilirubin (0.2-1.3) mg/dL AST (17-59) U/L ALT (21-72) U/L Alkaline Phosphatase (38-126) U/L Total Protein (6.3-8.3) g/dL Albumin (3.5-5.0) g/dL Globulin (2.2-3.9) gm/dL Albumin/Globulin Ratio (1.0-2.1) Urine Opiates Screen Negative (NEGATIVE) Urine Methadone Screen Negative (NEGATIVE) Ur Barbiturates Screen Negative (NEGATIVE) Ur Phencyclidine Scrn Negative (NEGATIVE) Ur Amphetamines Screen Negative (NEGATIVE) U Benzodiazepines Scrn Negative (NEGATIVE) U Oth Cocaine Metabols Negative (NEGATIVE) U Cannabinoids Screen Negative (NEGATIVE) Laboratory Results - last 24 hr 04/06/18 04/07/18 04/07/18 21:50 05:53 05:55 WBC 14.4 H RBC 3.66 L Hgb 11.3 L Hct 33.5 L MCV 91.5 MCH 30.8 MCHC 33.7 RDW 15.4 H Plt Count 11 L* MPV 9.9 Neut % (Auto) 62.6 Lymph % (Auto) 19.6 L Warren % (Auto) 13.9 H Eos % (Auto) 3.4 Baso % (Auto) 0.5 Neut # (Auto) 9.0 H Lymph # (Auto) 2.8 Warren # (Auto) 2.0 H Eos # (Auto) 0.5 Baso # (Auto) 0.1 Differential Comment Sodium 140 Potassium 3.9 Chloride 105 Carbon Dioxide 23 Anion Gap 17 BUN 32 H Creatinine 5.3 H Est GFR ( Amer) 15 Est GFR (Non-Af Amer) 13 Random Glucose 84 Calcium 8.6 Phosphorus Magnesium Total Bilirubin 1.3 AST 23 ALT 35 Alkaline Phosphatase 97 Total Protein 7.1 Albumin 4.2 Globulin 3.0 Albumin/Globulin Ratio 1.4 Urine Opiates Screen Negative Urine Methadone Screen Negative Ur Barbiturates Screen Negative Ur Phencyclidine Scrn Negative Ur Amphetamines Screen Negative U Benzodiazepines Scrn Negative U Oth Cocaine Metabols Negative U Cannabinoids Screen Negative 04/07/18 05:55 WBC RBC Hgb Hct MCV MCH MCHC RDW Plt Count MPV Neut % (Auto) Lymph % (Auto) Warren % (Auto) Eos % (Auto) Baso % (Auto) Neut # (Auto) Lymph # (Auto) Warren # (Auto) Eos # (Auto) Baso # (Auto) Differential Comment Sodium Potassium Chloride Carbon Dioxide Anion Gap BUN Creatinine Est GFR ( Amer) Est GFR (Non-Af Amer) Random Glucose Calcium Phosphorus 3.9 Magnesium 2.2 Total Bilirubin AST ALT Alkaline Phosphatase Total Protein Albumin Globulin Albumin/Globulin Ratio Urine Opiates Screen Urine Methadone Screen Ur Barbiturates Screen Ur Phencyclidine Scrn Ur Amphetamines Screen U Benzodiazepines Scrn U Oth Cocaine Metabols U Cannabinoids Screen Review of Systems - Review of Systems Review of Systems: Please see subjective Critical Care Progress Note - Nutrition Nutrition: Nutrition Category Date Time Status Renal Diet [DIET] Diets 04/07/18 Dinner Active Assessment/Plan - Assessment and Plan (Free Text) Assessment: Patient is a 32M with a past medical history of HTN, ESRD (HD , , Tue) , known atypical HUS and thrombocytopenia. ICU consulted for evaluation and treatment of sepsis and severe thrombocytopenia. Plan: Neuro: GCS: 15 Sedation: None A: Headache Head CT (04/04): no mass, hemorrhage, or acute infarct identified. mild cerebral atrophy. Head CT (04/06): Unremarkable. Cardio: A: HTN Home medication: Clonidine 0.1 mg PO TID Norvasc 10mg PO Daily Carvedilol 3.125mg PO BID Renal A: ESRD (TTS), Hyperkalemia, Dialysis schedule: TTS Scheduled for Dialysis today, as patient missed two sessions. Nephrology consulted, Dr. Villasenor. Help appreciated Sepsis likely secondary to catheter infection. Will likely be removed and replaced by surgery team. EKG: sinus tachycardia; no ST or T wave changes. Patient scheduled for dialysis today. Duonebs and one dose of kayexalate given. Continue to monitor electrolytes. 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 Hem/Onc consulted, Dr. Benites. Help appreciated Type and cross 1 Unit of Plts given yesterday. 1 Unit given today with dialysis. Continue to monitor N-Acetylcysteine started. 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 Plts ordered for today. [id number] Ordered - Follow up. ID: A: Sepsis, Gram Positive Cocci Bacteremia, Leukocytosis (Worsening) Sepsis likely secondary to catheter infection. Febrile (103F), Tachycardic, leukocytosis (Worsening ), elevated lactate In ED, patient was given Zosyn 2.25gm and Vancomycin 1gm IV. UA: negative for infection; 2+ protein Influenza- negative Chest xray: no active pulmonary disease Blood cultures: POSITIVE for Staph Aureus Urine culture: NEGATIVE ID consulted, Dr. Gilmore. Help appreciated Surgery consulted, Dr. Quach. Help appreciated - Plan for bedside cath removal. After platelet transfusion, plan to establish dialysis access. Medications: - Vancomycin 1gm TTS, Nafcillin 2gm Q6H, Gentamicin IVPB TTS - Reglan 10mg IV Q6h PRN for nausea/vomiting - Tylenol 650mg PO Q6h PRN for fevers/pain Pysch A: Depression/Anxiety Patient states he wants to Psych Consulted Pastoral Care Consulted Proph DVT: No chemical anticoagulation due to severe thrombocytopenia GI: Pepcid IVP daily Zofran PRN Diet: Renal Dialysis Patient seen and discussed with Attending Jewels Mcghee, PGY-1 <Mayda Valle M - Last Filed: 04/08/18 15:36> CCU Objective - Vital Signs / Intake & Output Vital Signs (Last 4 hours): Vital Signs Temp Pulse Resp BP Pulse Ox 04/08/18 14:25 84 9 L 142/98 H 100 04/08/18 14:00 104 H 13 97 04/08/18 13:55 97 H 22 136/90 04/08/18 13:25 90 18 146/103 H 98 04/08/18 13:00 93 H 16 97 04/08/18 12:55 80 14 131/92 H 99 04/08/18 12:25 80 16 143/100 H 04/08/18 12:00 98.4 F 75 14 99 04/08/18 11:55 98.5 F 77 12 128/93 H 98 Intake and Output (Last 8hrs): Intake & Output 04/08/18 04/08/18 04/08/18 06:59 14:59 22:59 Intake Total 350 1620.8 Output Total 550 440 Balance -200 1180.8 Weight 185 lb Intake: Intake, IV Amount 250 1098.8 Left Arm 352.8 Left Forearm 250 550 Right Forearm 196 Oral 100 330 Blood Product 192 Apheresis Plts Acda Lr 192 3rd Con Unit [id number] Output: Urine 550 440 Urine, Voided 550 440 Stool 0 Emesis 0 - Medications Active Medications: Active Medications Generic Name Dose Route Start Last Admin Trade Name Freq PRN Reason Stop Dose Admin Acetaminophen 650 mg 04/04/18 12:07 04/06/18 09:07 Tylenol 325mg Tab PO 650 mg Q6 PRN Administration Fever >100.4 F Amlodipine Besylate 10 mg 04/05/18 14:00 04/08/18 09:18 Norvasc PO 10 mg DAILY GUILLE Administration Carvedilol 3.125 mg 04/06/18 10:00 04/08/18 09:16 Coreg PO 3.125 mg BID GUILLE Administration Clonidine HCl 0.1 mg 04/07/18 14:00 04/07/18 18:03 Catapres PO 0.1 mg TID GUILLE Administration Famotidine 20 mg 04/05/18 10:00 04/08/18 09:33 Pepcid IVP 20 mg DAILY GUILLE Administration Hydroxyzine HCl 25 mg 04/06/18 18:06 Atarax PO Q6 PRN Agitation Vancomycin/Sodium Chloride 1 gm in 200 mls @ 133 mls/hr 04/06/18 17:00 13:00 Vancomycin 1 Gm/Ns 200 Ml IVPB 04/11/18 17:01 133 mls/hr TTS GUILLE Administration Protocol Gentamicin Sulfate 80 mg/ 102 mls @ 100 mls/hr 04/06/18 16:30 04/08/18 09:18 Sodium Chloride IVPB 100 mls/hr TTS GUILLE Administration Protocol Acetylcysteine 12,315 mg/ 1,000 mls @ 58.8 mls/hr 04/08/18 10:00 04/08/18 09: 19 Dextrose IVPB 04/17/18 12:49 58.8 mls/hr DAILY GUILLE Administration Nafcillin Sodium 2 gm/ Sodium 250 mls @ 250 mls/hr 04/07/18 15:00 04/08/18 09 :18 Chloride IVPB 250 mls/hr Q6H GUILLE Administration Protocol Metoclopramide HCl 10 mg 04/04/18 13:31 04/05/18 22:16 Reglan IVP 10 mg Q6H PRN Administration Nausea/Vomiting Ondansetron HCl 4 mg 04/05/18 15:54 04/06/18 01:37 Zofran Inj IVP 4 mg Q4H PRN Administration Nausea/Vomiting Trazodone HCl 50 mg 04/06/18 22:00 04/07/18 21:04 Desyrel PO 50 mg HS GUILLE Administration - Patient Studies Lab Studies: Microbiology Studies 04/06/18 21:30 Blood Culture - Preliminary Blood-Venous NO GROWTH AFTER 24 HOURS 04/06/18 21:00 Blood Culture - Preliminary Blood-Venous NO GROWTH AFTER 24 HOURS 04/06/18 13:40 MRSA Culture - Final Naris MRSA NOT DETECTED 04/04/18 13:31 Blood Culture - Final Blood Staphylococcus Aureus Gram Stain - Final 04/04/18 13:31 S.aureus & Coag-Neg Staph PNA FISH - Final Blood Blood Culture - Final Staphylococcus Aureus Gram Stain - Final Lab Studies 04/08/18 04/08/18 04/07/18 Range/Units 06:18 06:16 21:00 WBC 13.1 H 13.1 H (4.8-10.8) K/uL RBC 3.78 L 3.71 L (4.40-5.90) Mil/uL Hgb 11.6 L 11.4 L (12.0-18.0) g/dL Hct 34.5 L 34.0 L (35.0-51.0) % MCV 91.1 91.4 (80.0-94.0) fL MCH 30.8 30.6 (27.0-31.0) pg MCHC 33.8 33.5 (33.0-37.0) g/dL RDW 15.3 H 15.1 H (11.5-14.5) % Plt Count 6 L* 6 L* D (130-400) K/uL MPV 11.3 10.8 (7.2-11.7) fL Neut % (Auto) 45.3 L 57.6 (50.0-75.0) % Lymph % (Auto) 28.4 18.6 L (20.0-40.0) % Warren % (Auto) 17.4 H 15.5 H (0.0-10.0) % Eos % (Auto) 8.4 H 7.6 H (0.0-4.0) % Baso % (Auto) 0.5 0.7 (0.0-2.0) % Neut # (Auto) 5.9 7.6 H (1.8-7.0) K/uL Lymph # (Auto) 3.7 2.4 (1.0-4.3) K/uL Warren # (Auto) 2.3 H 2.0 H (0.0-0.8) K/uL Eos # (Auto) 1.1 H 1.0 H (0.0-0.7) K/uL Baso # (Auto) 0.1 0.1 (0.0-0.2) K/uL Differential Comment Sodium 141 (132-148) mmol/L Potassium 4.4 (3.6-5.2) mmol/L Chloride 104 (98-107) mmol/L Carbon Dioxide 18 L (22-30) mmol/L Anion Gap 23 H (10-20) BUN 42 H (9-20) mg/dL Creatinine 6.2 H (0.8-1.5) mg/dL Est GFR ( Amer) 13 Est GFR (Non-Af Amer) 10 Random Glucose 81 (75-110) mg/dL Calcium 9.3 (8.6-10.4) mg/dl Total Bilirubin 2.1 H (0.2-1.3) mg/dL AST 37 (17-59) U/L ALT 38 (21-72) U/L Alkaline Phosphatase 108 (38-126) U/L Total Protein 6.5 (6.3-8.3) g/dL Albumin 3.5 (3.5-5.0) g/dL Globulin 3.1 (2.2-3.9) gm/dL Albumin/Globulin Ratio 1.1 (1.0-2.1) Blood Type Antibody Screen 05/25/18 Range/Units 16:36 WBC (4.8-10.8) K/uL RBC (4.40-5.90) Mil/uL Hgb (12.0-18.0) g/dL Hct (35.0-51.0) % MCV (80.0-94.0) fL MCH (27.0-31.0) pg MCHC (33.0-37.0) g/dL RDW (11.5-14.5) % Plt Count (130-400) K/uL MPV (7.2-11.7) fL Neut % (Auto) (50.0-75.0) % Lymph % (Auto) (20.0-40.0) % Warren % (Auto) (0.0-10.0) % Eos % (Auto) (0.0-4.0) % Baso % (Auto) (0.0-2.0) % Neut # (Auto) (1.8-7.0) K/uL Lymph # (Auto) (1.0-4.3) K/uL Warren # (Auto) (0.0-0.8) K/uL Eos # (Auto) (0.0-0.7) K/uL Baso # (Auto) (0.0-0.2) K/uL Differential Comment Sodium (132-148) mmol/L Potassium (3.6-5.2) mmol/L Chloride (98-107) mmol/L Carbon Dioxide (22-30) mmol/L Anion Gap (10-20) BUN (9-20) mg/dL Creatinine (0.8-1.5) mg/dL Est GFR ( Amer) Est GFR (Non-Af Amer) Random Glucose (75-110) mg/dL Calcium (8.6-10.4) mg/dl Total Bilirubin (0.2-1.3) mg/dL AST (17-59) U/L ALT (21-72) U/L Alkaline Phosphatase (38-126) U/L Total Protein (6.3-8.3) g/dL Albumin (3.5-5.0) g/dL Globulin (2.2-3.9) gm/dL Albumin/Globulin Ratio (1.0-2.1) Blood Type O POSITIVE Antibody Screen Negative Laboratory Results - last 24 hr 04/07/18 04/07/18 04/08/18 16:36 21:00 06:16 WBC 13.1 H RBC 3.71 L Hgb 11.4 L Hct 34.0 L MCV 91.4 MCH 30.6 MCHC 33.5 RDW 15.1 H Plt Count 6 L* D MPV 10.8 Neut % (Auto) 57.6 Lymph % (Auto) 18.6 L Warren % (Auto) 15.5 H Eos % (Auto) 7.6 H Baso % (Auto) 0.7 Neut # (Auto) 7.6 H Lymph # (Auto) 2.4 Warren # (Auto) 2.0 H Eos # (Auto) 1.0 H Baso # (Auto) 0.1 Differential Comment Sodium 141 Potassium 4.4 Chloride 104 Carbon Dioxide 18 L Anion Gap 23 H BUN 42 H Creatinine 6.2 H Est GFR ( Amer) 13 Est GFR (Non-Af Amer) 10 Random Glucose 81 Calcium 9.3 Total Bilirubin 2.1 H AST 37 ALT 38 Alkaline Phosphatase 108 Total Protein 6.5 Albumin 3.5 Globulin 3.1 Albumin/Globulin Ratio 1.1 Blood Type O POSITIVE Antibody Screen Negative 04/08/18 06:18 WBC 13.1 H RBC 3.78 L Hgb 11.6 L Hct 34.5 L MCV 91.1 MCH 30.8 MCHC 33.8 RDW 15.3 H Plt Count 6 L* MPV 11.3 Neut % (Auto) 45.3 L Lymph % (Auto) 28.4 Warren % (Auto) 17.4 H Eos % (Auto) 8.4 H Baso % (Auto) 0.5 Neut # (Auto) 5.9 Lymph # (Auto) 3.7 Warren # (Auto) 2.3 H Eos # (Auto) 1.1 H Baso # (Auto) 0.1 Differential Comment Sodium Potassium Chloride Carbon Dioxide Anion Gap BUN Creatinine Est GFR ( Amer) Est GFR (Non-Af Amer) Random Glucose Calcium Total Bilirubin AST ALT Alkaline Phosphatase Total Protein Albumin Globulin Albumin/Globulin Ratio Blood Type Antibody Screen Critical Care Progress Note - Nutrition Nutrition: Nutrition Category Date Time Status Renal Diet [DIET] Diets 04/07/18 Dinner Active Assessment/Plan - Assessment and Plan (Free Text) Plan: Patient seen and examined with Above resident note reviewed and verified. Patient remains hemodynamically stable. -Staph bacteremia: recurrent, suspect HD cath infectoin -thrombocytopenia: suspect chronic, no signs of bleeding, cosider empirical rx for TTP/HUS with high dose n-acetylcysteine, (benefits more than risk) -consider removal of HD cath while platelets being infused. -surgery follow up -patient remains hemodynamically stable. - Date & Time Date: 04/07/18 Time: 18:00
[2018-04-07 21:05] LABS: BASO # 0.1 K/uL (0.0-0.2); BASO % 0.7 % (0.0-2.0); EOS % 7.6 % (0.0-4.0); HEMOGLOBIN 11.4 g/dL (12.0-18.0); LYMPH # 2.4 K/uL (1.0-4.3); LYMPH % 18.6 % (20.0-40.0); MEAN CELL VOLUME 91.4 fL (80.0-94.0); MEAN CORPUSCULAR HEMOGLOBIN 30.6 pg (27.0-31.0); MEAN CORPUSCULAR HGB CONC 33.5 g/dL (33.0-37.0); MEAN PLATELET VOLUME 10.8 fL (7.2-11.7); MONO % 15.5 % (0.0-10.0); NEUT # 7.6 K/uL (1.8-7.0); NEUT % 57.6 % (50.0-75.0); RBC 3.71 Mil/uL (4.40-5.90); RED CELL DISTRIBUTION WIDTH 15.1 % (11.5-14.5); WHITE BLOOD COUNT 13.1 K/uL (4.8-10.8)
--- NOTE | 2018-04-07 21:30 | CP.PCM.PN ---
Subjective - Date & Time of Evaluation Date of Evaluation: 04/07/18 Time of Evaluation: 20:00 - Subjective Subjective: Feeling better Objective - Vital Signs/Intake and Output Vital Signs (last 24 hours): Temp Pulse Resp BP Pulse Ox 98.5 F 75 14 125/83 95 04/07/18 20:00 04/07/18 21:11 04/07/18 21:11 04/07/18 21:11 04/07/18 21:11 Intake and Output: 04/07/18 04/08/18 18:59 06:59 Intake Total 1350 0 Output Total 300 Balance 1350 -300 - Medications Medications: Current Medications Acetaminophen (Tylenol 325mg Tab) 650 mg PO Q6 PRN PRN Reason: Fever >100.4 F Last Admin: 04/06/18 09:07 Dose: 650 mg Amlodipine Besylate (Norvasc) 10 mg PO DAILY [facility] Last Admin: 04/07/18 09:30 Dose: 10 mg Carvedilol (Coreg) 3.125 mg PO BID [facility] Last Admin: 04/07/18 18:03 Dose: 3.125 mg Clonidine HCl (Catapres) 0.1 mg PO TID [facility] Last Admin: 04/07/18 18:03 Dose: 0.1 mg Famotidine (Pepcid) 20 mg IVP DAILY [facility] Last Admin: 04/07/18 09:39 Dose: 20 mg Hydroxyzine HCl (Atarax) 25 mg PO Q6 PRN PRN Reason: Agitation Vancomycin/Sodium Chloride (Vancomycin 1 Gm/Ns 200 Ml) 1 gm in 200 mls @ 133 mls/hr IVPB TTS GUILLE PRN Reason: Protocol Stop: 04/11/18 17:01 Last Admin: 04/06/18 19:41 Dose: 133 mls/hr Gentamicin Sulfate 80 mg/ (Sodium Chloride) 102 mls @ 100 mls/hr IVPB TTS [facility] PRN Reason: Protocol Last Admin: 04/06/18 18:38 Dose: 100 mls/hr Acetylcysteine 12,315 mg/ (Dextrose) 1,000 mls @ 58.8 mls/hr IVPB DAILY [facility] Stop: 04/17/18 12:49 Nafcillin Sodium 2 gm/ Sodium (Chloride) 250 mls @ 250 mls/hr IVPB Q6H GUILLE PRN Reason: Protocol Last Admin: 04/07/18 21:05 Dose: 250 mls/hr Metoclopramide HCl (Reglan) 10 mg IVP Q6H PRN PRN Reason: Nausea/Vomiting Last Admin: 04/05/18 22:16 Dose: 10 mg Ondansetron HCl (Zofran Inj) 4 mg IVP Q4H PRN PRN Reason: Nausea/Vomiting Last Admin: 04/06/18 01:37 Dose: 4 mg Trazodone HCl (Desyrel) 50 mg PO HS GUILLE Last Admin: 04/07/18 21:04 Dose: 50 mg - Labs Labs: 04/07/18 21:00 04/07/18 05:55 PT 13.4 SECONDS (9.7-12.2) H 04/04/18 06:59 INR 1.2 04/04/18 06:59 APTT 32 SECONDS (21-34) 04/04/18 06:59 - Head Exam Head Exam: ATRAUMATIC - Eye Exam Eye Exam: Normal appearance - ENT Exam ENT Exam: Mucous Membranes Dry - Respiratory Exam Respiratory Exam: NORMAL BREATHING PATTERN - Cardiovascular Exam Cardiovascular Exam: +S1, +S2 - GI/Abdominal Exam GI & Abdominal Exam: Normal Bowel Sounds Assessment and Plan (1) Thrombocytopenia Assessment & Plan: atypical HUS on outpatient eculizumab for n acetylcysteine cysteine treatment per ICU transfusion support PRN Status: Chronic (2) Elevated WBC count Assessment & Plan: improving with antibiiotics Status: Chronic (3) Anemia Assessment & Plan: renal disease transfusion support and EPO Status: Acute (4) Atypical hemolytic uremic syndrome Assessment & Plan: outpatient eculizumab Status: Acute
[2018-04-08 06:40] LABS: BASO # 0.1 K/uL (0.0-0.2); BASO % 0.5 % (0.0-2.0); EOS # 1.1 K/uL (0.0-0.7); EOS % 8.4 % (0.0-4.0); HEMOGLOBIN 11.6 g/dL (12.0-18.0); LYMPH # 3.7 K/uL (1.0-4.3); LYMPH % 28.4 % (20.0-40.0); MEAN CELL VOLUME 91.1 fL (80.0-94.0); MEAN CORPUSCULAR HEMOGLOBIN 30.8 pg (27.0-31.0); MEAN CORPUSCULAR HGB CONC 33.8 g/dL (33.0-37.0); MEAN PLATELET VOLUME 11.3 fL (7.2-11.7); MONO # 2.3 K/uL (0.0-0.8); MONO % 17.4 % (0.0-10.0); NEUT # 5.9 K/uL (1.8-7.0); NEUT % 45.3 % (50.0-75.0); NRBC % 0.1 % (0.0-2.0); RBC 3.78 Mil/uL (4.40-5.90); RED CELL DISTRIBUTION WIDTH 15.3 % (11.5-14.5); WHITE BLOOD COUNT 13.1 K/uL (4.8-10.8)
[2018-04-08 06:42] LABS: ALB/GLOB RATIO 1.1 (1.0-2.1); ALBUMIN 3.5 g/dL (3.5-5.0); CALCIUM 9.3 mg/dl (8.6-10.4)
[2018-04-08] MEDS: DEXTROSE 5% IVPB SCH (09:19)
[2018-04-08] MEDS: ACETYLCYSTEINE IVPB SCH (09:19)
[2018-04-08] MEDS: WATER IVPB SCH (09:19)
--- NOTE | 2018-04-08 09:30 | CP.PCM.PN ---
Subjective - Date & Time of Evaluation Date of Evaluation: 04/08/18 Time of Evaluation: 09:27 - Subjective Subjective: pt seen and examined resting in chair feels fine no SOB afebrile ROS- as per HPI, other than that 10 point ROS negative Objective - Vital Signs/Intake and Output Vital Signs (last 24 hours): Temp Pulse Resp BP Pulse Ox 97.3 F L 69 9 L 113/67 97 04/08/18 00:00 04/08/18 08:00 04/08/18 08:00 04/08/18 07:11 04/08/18 08:00 Intake and Output: 04/08/18 04/08/18 06:59 18:59 Intake Total 650 Output Total 850 Balance -200 - Medications Medications: Current Medications Acetaminophen (Tylenol 325mg Tab) 650 mg PO Q6 PRN PRN Reason: Fever >100.4 F Last Admin: 04/06/18 09:07 Dose: 650 mg Amlodipine Besylate (Norvasc) 10 mg PO DAILY [facility] Last Admin: 04/08/18 09:18 Dose: 10 mg Carvedilol (Coreg) 3.125 mg PO BID [facility] Last Admin: 04/08/18 09:16 Dose: 3.125 mg Clonidine HCl (Catapres) 0.1 mg PO TID [facility] Last Admin: 04/07/18 18:03 Dose: 0.1 mg Famotidine (Pepcid) 20 mg IVP DAILY [facility] Last Admin: 04/07/18 09:39 Dose: 20 mg Hydroxyzine HCl (Atarax) 25 mg PO Q6 PRN PRN Reason: Agitation Vancomycin/Sodium Chloride (Vancomycin 1 Gm/Ns 200 Ml) 1 gm in 200 mls @ 133 mls/hr IVPB TTS [facility] PRN Reason: Protocol Stop: 04/11/18 17:01 Last Admin: 04/06/18 19:41 Dose: 133 mls/hr Gentamicin Sulfate 80 mg/ (Sodium Chloride) 102 mls @ 100 mls/hr IVPB TTS [facility] PRN Reason: Protocol Last Admin: 04/08/18 09:18 Dose: 100 mls/hr Acetylcysteine 12,315 mg/ (Dextrose) 1,000 mls @ 58.8 mls/hr IVPB DAILY [facility] Stop: 04/17/18 12:49 Last Admin: 05/26/18 09:19 Dose: 58.8 mls/hr Nafcillin Sodium 2 gm/ Sodium (Chloride) 250 mls @ 250 mls/hr IVPB Q6H [facility] PRN Reason: Protocol Last Admin: 04/08/18 09:18 Dose: 250 mls/hr Metoclopramide HCl (Reglan) 10 mg IVP Q6H PRN PRN Reason: Nausea/Vomiting Last Admin: 04/05/18 22:16 Dose: 10 mg Ondansetron HCl (Zofran Inj) 4 mg IVP Q4H PRN PRN Reason: Nausea/Vomiting Last Admin: 04/06/18 01:37 Dose: 4 mg Trazodone HCl (Desyrel) 50 mg PO HS [facility] Last Admin: 04/07/18 21:04 Dose: 50 mg - Labs Labs: 04/08/18 06:18 04/08/18 06:16 PT 13.4 SECONDS (9.7-12.2) H 04/04/18 06:59 INR 1.2 04/04/18 06:59 APTT 32 SECONDS (21-34) 04/04/18 06:59 - Constitutional Appears: Non-toxic - Head Exam Head Exam: ATRAUMATIC, NORMOCEPHALIC - Eye Exam Eye Exam: EOMI, PERRL - ENT Exam ENT Exam: Mucous Membranes Moist Additional comments: hearing aid left ear - Neck Exam Neck Exam: Full ROM. absent: Lymphadenopathy - Respiratory Exam Respiratory Exam: Clear to Ausculation Bilateral. absent: Rhonchi, Wheezes - Cardiovascular Exam Cardiovascular Exam: REGULAR RHYTHM, +S1, +S2 - GI/Abdominal Exam GI & Abdominal Exam: Soft. absent: Tenderness - Extremities Exam Extremities Exam: Full ROM. absent: Pedal Edema - Neurological Exam Neurological Exam: Alert, Awake, Oriented x3 - Psychiatric Exam Psychiatric exam: Normal Affect, Normal Mood - Skin Skin Exam: Dry, Warm Assessment and Plan (1) Hearing loss Status: Acute (2) ESRD (end stage renal disease) on dialysis Status: Acute (3) Line sepsis associated with dialysis catheter Status: Acute (4) Thrombocytopenia Status: Acute - Assessment and Plan (Free Text) Plan: maintain HD MWF on nafcillin and gent monitor gent levels as pt already with hearing loss for platelet transfusion today and line change there after BP better
[2018-04-08] MEDS ORDERED: Vancomycin 1 gm/NS 200 ml 1 GM/200 ML BAG IVPB SCH (10:00)
--- NOTE | 2018-04-08 12:56 | CP.PCM.PN ---
Subjective - Date & Time of Evaluation Date of Evaluation: 04/08/18 Time of Evaluation: 12:53 - Subjective Subjective: Patient is asymptomatic, has no complaints, 11 ROS neg Objective - Vital Signs/Intake and Output Vital Signs (last 24 hours): Temp Pulse Resp BP Pulse Ox 98.5 F 78 14 129/97 H 98 04/08/18 09:15 04/08/18 10:00 04/08/18 10:00 04/08/18 09:15 04/08/18 10:00 Intake and Output: 04/08/18 04/08/18 06:59 18:59 Intake Total 650 597.6 Output Total 850 200 Balance -200 397.6 - Medications Medications: Current Medications Acetaminophen (Tylenol 325mg Tab) 650 mg PO Q6 PRN PRN Reason: Fever >100.4 F Last Admin: 04/06/18 09:07 Dose: 650 mg Amlodipine Besylate (Norvasc) 10 mg PO DAILY [facility] Last Admin: 04/08/18 09:18 Dose: 10 mg Carvedilol (Coreg) 3.125 mg PO BID [facility] Last Admin: 04/08/18 09:16 Dose: 3.125 mg Clonidine HCl (Catapres) 0.1 mg PO TID [facility] Last Admin: 04/07/18 18:03 Dose: 0.1 mg Famotidine (Pepcid) 20 mg IVP DAILY [facility] Last Admin: 04/08/18 09:33 Dose: 20 mg Hydroxyzine HCl (Atarax) 25 mg PO Q6 PRN PRN Reason: Agitation Vancomycin/Sodium Chloride (Vancomycin 1 Gm/Ns 200 Ml) 1 gm in 200 mls @ 133 mls/hr IVPB TTS [facility] PRN Reason: Protocol Stop: 04/11/18 17:01 Last Admin: 04/06/18 19:41 Dose: 133 mls/hr Gentamicin Sulfate 80 mg/ (Sodium Chloride) 102 mls @ 100 mls/hr IVPB TTS [facility] PRN Reason: Protocol Last Admin: 04/08/18 09:18 Dose: 100 mls/hr Acetylcysteine 12,315 mg/ (Dextrose) 1,000 mls @ 58.8 mls/hr IVPB DAILY [facility] Stop: 04/17/18 12:49 Last Admin: 04/08/18 09:19 Dose: 58.8 mls/hr Nafcillin Sodium 2 gm/ Sodium (Chloride) 250 mls @ 250 mls/hr IVPB Q6H [facility] PRN Reason: Protocol Last Admin: 04/08/18 09:18 Dose: 250 mls/hr Metoclopramide HCl (Reglan) 10 mg IVP Q6H PRN PRN Reason: Nausea/Vomiting Last Admin: 04/05/18 22:16 Dose: 10 mg Ondansetron HCl (Zofran Inj) 4 mg IVP Q4H PRN PRN Reason: Nausea/Vomiting Last Admin: 04/06/18 01:37 Dose: 4 mg Trazodone HCl (Desyrel) 50 mg PO HS [facility] Last Admin: 04/07/18 21:04 Dose: 50 mg - Labs Labs: 04/08/18 06:18 04/08/18 06:16 PT 13.4 SECONDS (9.7-12.2) H 04/04/18 06:59 INR 1.2 04/04/18 06:59 APTT 32 SECONDS (21-34) 04/04/18 06:59 - Constitutional Appears: Non-toxic - Head Exam Head Exam: ATRAUMATIC, NORMAL INSPECTION - Eye Exam Eye Exam: Normal appearance - ENT Exam ENT Exam: Mucous Membranes Moist - Respiratory Exam Respiratory Exam: NORMAL BREATHING PATTERN - Cardiovascular Exam Cardiovascular Exam: REGULAR RHYTHM, +S1, +S2, Murmur - GI/Abdominal Exam GI & Abdominal Exam: Normal Bowel Sounds - Extremities Exam Extremities Exam: Normal Inspection - Neurological Exam Neurological Exam: Alert, Awake, Normal Gait, Oriented x3 Assessment and Plan - Assessment and Plan (Free Text) Assessment: Patient is a 32M with a past medical history of HTN, ESRD (HD , , Sat) , known atypical HUS and thrombocytopenia. ICU consulted for evaluation and treatment of sepsis and severe thrombocytopenia. -Sepsis: Staph aureus in culture, repeat Bcx pending, continue abx as per ID, removal of HD cath as per surgery -HTN:continue home medications Home medication: Clonidine 0.1 mg PO TID Norvasc 10mg PO Daily Carvedilol 3.125mg PO BID ESRD (TTS): continue hd as per renal Thrombocytopenia: chornic previous attempts at plasmapharesis, immunomodulator failed, heme/.onc input appreciated Continue to monitor N-Acetylcysteine started. 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 Plts ordered for today. [id number] Ordered - Follow up. continue DVT/PUD ppx Patient remains hemodynamically stable.
[2018-04-08] MEDS: Vancomycin 1 gm/NS 200 ml 1 GM/200 ML BAG IVPB SCH (13:00)
--- NOTE | 2018-04-08 20:05 | CP.PCM.PN ---
Subjective - Date & Time of Evaluation Date of Evaluation: 04/08/18 Time of Evaluation: 19:50 - Subjective Subjective: Medical Attending Note: Patient seen and examined. Patient seen post-dialysis was completed about 2 Liters removed. Patient reports mild headache post-dialysis but denies nausea, denies vomitting , denies abdominal pain, denies dysuria, denies chest pain, denies shortness of breathe, mild cough. Discussed with ICU, pending surgery to determine when to remove dialysis catheter (Dr. Quach) is away and platelets dropped. Objective - Vital Signs/Intake and Output Vital Signs (last 24 hours): Temp Pulse Resp BP Pulse Ox 98.2 F 88 17 153/110 H 99 04/08/18 16:00 04/08/18 19:25 04/08/18 19:25 04/08/18 19:25 04/08/18 16:00 Intake and Output: 04/08/18 04/09/18 18:59 06:59 Intake Total 1976.0 358.8 Output Total 640 0 Balance 1336.0 358.8 - Medications Medications: Current Medications Acetaminophen (Tylenol 325mg Tab) 650 mg PO Q6 PRN PRN Reason: Fever >100.4 F Last Admin: 04/06/18 09:07 Dose: 650 mg Amlodipine Besylate (Norvasc) 10 mg PO DAILY [facility] Last Admin: 04/08/18 09:18 Dose: 10 mg Carvedilol (Coreg) 3.125 mg PO BID [facility] Last Admin: 04/08/18 17:45 Dose: Not Given Clonidine HCl (Catapres) 0.1 mg PO TID [facility] Last Admin: 04/08/18 17:45 Dose: Not Given Famotidine (Pepcid) 20 mg IVP DAILY [facility] Last Admin: 04/08/18 09:33 Dose: 20 mg Hydroxyzine HCl (Atarax) 25 mg PO Q6 PRN PRN Reason: Agitation Vancomycin/Sodium Chloride (Vancomycin 1 Gm/Ns 200 Ml) 1 gm in 200 mls @ 133 mls/hr IVPB TTS [facility] PRN Reason: Protocol Stop: 04/11/18 17:01 Last Admin: 04/08/18 13:00 Dose: 133 mls/hr Gentamicin Sulfate 80 mg/ (Sodium Chloride) 102 mls @ 100 mls/hr IVPB TTS [facility] PRN Reason: Protocol Last Admin: 04/08/18 09:18 Dose: 100 mls/hr Acetylcysteine 12,315 mg/ (Dextrose) 1,000 mls @ 58.8 mls/hr IVPB DAILY [facility] Stop: 04/17/18 12:49 Last Admin: 04/08/18 09:19 Dose: 58.8 mls/hr Nafcillin Sodium 2 gm/ Sodium (Chloride) 250 mls @ 250 mls/hr IVPB Q6H [facility] PRN Reason: Protocol Last Admin: 04/08/18 14:00 Dose: 250 mls/hr Metoclopramide HCl (Reglan) 10 mg IVP Q6H PRN PRN Reason: Nausea/Vomiting Last Admin: 04/05/18 22:16 Dose: 10 mg Ondansetron HCl (Zofran Inj) 4 mg IVP Q4H PRN PRN Reason: Nausea/Vomiting Last Admin: 04/06/18 01:37 Dose: 4 mg Trazodone HCl (Desyrel) 50 mg PO HS [facility] Last Admin: 04/07/18 21:04 Dose: 50 mg - Labs Labs: 04/08/18 06:18 04/08/18 06:16 PT 13.4 SECONDS (9.7-12.2) H 04/04/18 06:59 INR 1.2 04/04/18 06:59 APTT 32 SECONDS (21-34) 04/04/18 06:59 - Constitutional Appears: Non-toxic, No Acute Distress - Head Exam Head Exam: NORMAL INSPECTION - Eye Exam Eye Exam: EOMI - ENT Exam ENT Exam: Mucous Membranes Moist - Respiratory Exam Respiratory Exam: Clear to Ausculation Bilateral, NORMAL BREATHING PATTERN. absent: Rales, Rhonchi, Wheezes, Respiratory Distress - Cardiovascular Exam Cardiovascular Exam: REGULAR RHYTHM, +S1, +S2 - GI/Abdominal Exam GI & Abdominal Exam: Soft, Normal Bowel Sounds. absent: Distended, Firm, Guarding, Rigid, Tenderness, Rebound - Extremities Exam Extremities Exam: absent: Pedal Edema, Tenderness - Neurological Exam Neurological Exam: Alert, Awake, Oriented x3 Neuro motor strength exam: Left Upper Extremity: 5, Right Upper Extremity: 5, Left Lower Extremity: 5, Right Lower Extremity: 5 - Psychiatric Exam Psychiatric exam: Normal Affect, Normal Mood - Skin Skin Exam: Dry, Intact, Normal Color, Warm Additional comments: no observed petechiae (lower extremities, back, chest) + dialysis catheter (right chest: c/d/i) Assessment and Plan - Assessment and Plan (Free Text) Assessment: (1) Sepsis MSSA Bacteremia Infected Dialysis Catheter Assessment and Plan: * Sepsis likely secondary to catheter infection and bactermia * Criteria: Febrile (103F), Tachycardic, leukocytosis (WBC 25.1), elevated lactate * White count improving but infected dialysis catheter remains; issue remains thrombocytopenia bleeding risk * In ED, patient was given Zosyn 2.25gm and Vancomycin 1gm IV. * Lactate increased from 1.6 at admission to 3.2--> lactate: 1.5 * Blood culture (04/04/18): MSSA * UA: negative for infection; 2+ protein; urine culture (03/31): no growth * Influenza- negative * Chest xray: no active pulmonary disease * Tylenol 650mg PO Q6H >100.4F * ID consulted, Dr. Gilmore. Help appreciated * Gentamicin 80mg IVPB TThS (active since 04/06/18) * Vancomycin 1 gram IVPB TThS (Active since 04/06/18) * Naficillin 2mg IV Q6H (active since 04/07/18) * Surgery consulted, Dr. Quach. Help appreciated * ICU consulted. Patient accepted and transferred to ICU Bed 15 on 04/04/18. Further management as per ICU team. Transferred back on 04/06/18 following syncopal episode during dialysis Medications: * Reglan 10mg IV Q6h PRN for nausea/vomiting * Tylenol 650mg PO Q6h PRN for fevers/pain * Cooling blanket ordered but not available Status: Acute (2) ESRD (end stage renal disease) on dialysis Assessment and Plan: * Dialysis schedule: TTS * Nephrology consulted, Dr. Villasenor. Help appreciated * Sepsis likely secondary to catheter infection. Will likely be removed and replaced * We will need to follow-up with surgery to determine when to replace dialysis catheter. Patient has refuses peritoneal dialysis. * f/u surgery and ICU in regards to removal of dialysis catheter and possible necessary platelet transfusion; Dr. Quach is away Status: Acute (3) Hyperkalemia-->normalized Assessment and Plan: * Secondary to ESRD * EKG: sinus tachycardia; no ST or T wave changes. * Monitor Status: Acute (4) Severe thrombocytopenia Assessment and Plan: * Hem/Onc consulted, Dr. Benites. 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 * Heme/Onc consulted, Dr. Benites. Help appreciated. * Renal biopsy confirmed in prior hospitalization noted in the EMR Status: Acute (6) Hypertension Assessment and Plan: * Home medication: * Clonidine 0.2mg PO BID * Norvasc 10mg PO daily * Coreg 3.125mg PO BID Status: Chronic (7) Headache Assessment and Plan: * Head CT: no mass, hemorrhage, or acute infarct identified. mild cerebral atrophy. Status: Acute (8) Prophylactic measure Assessment and Plan: * DVT: No chemical anticoagulation due to severe thrombocytopenia * GI: Pepcid 20mg Iv q daily * Palliative consult: goals of care-->help appreciated Status: Acute
[2018-04-08 21:43] LABS: HEMOGLOBIN 12.7 g/dL (12.0-18.0); MEAN CORPUSCULAR HEMOGLOBIN 30.6 pg (27.0-31.0); MEAN CORPUSCULAR HGB CONC 34.2 g/dL (33.0-37.0)
[2018-04-08 21:49] LABS: MEAN CELL VOLUME 89.5 fL (80.0-94.0); MEAN PLATELET VOLUME 10.3 fL (7.2-11.7); RBC 4.13 Mil/uL (4.40-5.90); RED CELL DISTRIBUTION WIDTH 15.2 % (11.5-14.5)
[2018-04-08 21:51] LABS: PLATELET COUNT 10 K/uL (130-400)
[2018-04-08 22:19] LABS: ANISOCYTOSIS SLIGHT; BASOPHIL 1 % (0-2); LYMPHOCYTE 25 % (20-40); MONOCYTE 4 % (0-10); NEUTROPHIL 68 % (50-75); NUCLEATED RED BLOOD CELL 1 % (0-0); REACTIVE LYMPHOCYTES 2 % (0-0); TOTAL CELLS COUNTED 100
[2018-04-08 22:20] LABS: GIANT PLATELETS PRESENT; HYPOCHROMIC SLIGHT; MICROCYTOSIS SLIGHT; OVALOCYTES SLIGHT; POIKILOCYTOSIS SLIGHT; POLYCHROMIC SLIGHT
[2018-04-08 22:21] LABS: PLATELET ESTIMATE MARKEDLY DECREASED (NORMAL)
[2018-04-09 06:47] LABS: BASO % 0.3 % (0.0-2.0); HEMOGLOBIN 11.4 g/dL (12.0-18.0); LYMPH # 2.8 K/uL (1.0-4.3); LYMPH % 25.2 % (20.0-40.0); MEAN CELL VOLUME 90.6 fL (80.0-94.0); MEAN CORPUSCULAR HEMOGLOBIN 30.6 pg (27.0-31.0); MEAN CORPUSCULAR HGB CONC 33.7 g/dL (33.0-37.0); MONO # 2.3 K/uL (0.0-0.8); MONO % 20.8 % (0.0-10.0); NEUT # 6.1 K/uL (1.8-7.0); NEUT % 53.7 % (50.0-75.0); NRBC % 0.1 % (0.0-2.0); RBC 3.74 Mil/uL (4.40-5.90); WHITE BLOOD COUNT 11.3 K/uL (4.8-10.8)
[2018-04-09 06:50] LABS: PLATELET COUNT 8 K/uL (130-400)
[2018-04-09 06:55] LABS: ALB/GLOB RATIO 1.1 (1.0-2.1); ALBUMIN 3.7 g/dL (3.5-5.0); CALCIUM 9.3 mg/dl (8.6-10.4)
--- NOTE | 2018-04-09 08:27 | CP.PCM.PN ---
Subjective - Date & Time of Evaluation Date of Evaluation: 04/09/18 Time of Evaluation: 08:20 - Subjective Subjective: Medical Attending note: Patient seen and examined this morning. Patient sleeping comfortably. Patient had dialysis yesterday and transfused 1 unit of platelets. It is unclear when the dialysis catheter will be removed; Dr Quach is away for the holiday. Objective - Vital Signs/Intake and Output Vital Signs (last 24 hours): Temp Pulse Resp BP Pulse Ox 98.4 F 81 15 157/97 H 96 04/09/18 04:00 04/09/18 06:00 04/09/18 06:00 04/09/18 05:53 04/09/18 06:00 Intake and Output: 04/09/18 04/09/18 06:59 18:59 Intake Total 1505.6 Output Total 2900 Balance -1394.4 - Medications Medications: Current Medications Acetaminophen (Tylenol 325mg Tab) 650 mg PO Q6 PRN PRN Reason: Fever >100.4 F Last Admin: 04/06/18 09:07 Dose: 650 mg Amlodipine Besylate (Norvasc) 10 mg PO DAILY [facility] Last Admin: 04/08/18 09:18 Dose: 10 mg Carvedilol (Coreg) 3.125 mg PO BID [facility] Last Admin: 04/08/18 22:52 Dose: 3.125 mg Clonidine HCl (Catapres) 0.1 mg PO TID [facility] Last Admin: 04/08/18 22:52 Dose: 0.1 mg Famotidine (Pepcid) 20 mg IVP DAILY [facility] Last Admin: 04/08/18 09:33 Dose: 20 mg Hydroxyzine HCl (Atarax) 25 mg PO Q6 PRN PRN Reason: Agitation Vancomycin/Sodium Chloride (Vancomycin 1 Gm/Ns 200 Ml) 1 gm in 200 mls @ 133 mls/hr IVPB TTS [facility] PRN Reason: Protocol Stop: 04/11/18 17:01 Last Admin: 04/08/18 13:00 Dose: 133 mls/hr Gentamicin Sulfate 80 mg/ (Sodium Chloride) 102 mls @ 100 mls/hr IVPB TTS [facility] PRN Reason: Protocol Last Admin: 04/08/18 09:18 Dose: 100 mls/hr Acetylcysteine 12,315 mg/ (Dextrose) 1,000 mls @ 58.8 mls/hr IVPB DAILY [facility] Stop: 04/17/18 12:49 Last Admin: 04/08/18 09:19 Dose: 58.8 mls/hr Nafcillin Sodium 2 gm/ Sodium (Chloride) 250 mls @ 250 mls/hr IVPB Q6H [facility] PRN Reason: Protocol Last Admin: 04/09/18 02:10 Dose: 250 mls/hr Metoclopramide HCl (Reglan) 10 mg IVP Q6H PRN PRN Reason: Nausea/Vomiting Last Admin: 04/05/18 22:16 Dose: 10 mg Ondansetron HCl (Zofran Inj) 4 mg IVP Q4H PRN PRN Reason: Nausea/Vomiting Last Admin: 04/06/18 01:37 Dose: 4 mg Trazodone HCl (Desyrel) 50 mg PO HS [facility] Last Admin: 04/08/18 21:14 Dose: 50 mg - Labs Labs: 04/09/18 06:22 04/09/18 06:19 PT 13.4 SECONDS (9.7-12.2) H 04/04/18 06:59 INR 1.2 04/04/18 06:59 APTT 32 SECONDS (21-34) 04/04/18 06:59 - Constitutional Appears: Non-toxic, No Acute Distress - Head Exam Head Exam: NORMAL INSPECTION Additional comments: Dialysis catheter: right side of chest - Eye Exam Eye Exam: EOMI - ENT Exam ENT Exam: Mucous Membranes Moist - Neck Exam Neck Exam: absent: Lymphadenopathy, Meningismus - Respiratory Exam Respiratory Exam: NORMAL BREATHING PATTERN. absent: Rales, Rhonchi, Wheezes - Cardiovascular Exam Cardiovascular Exam: REGULAR RHYTHM, +S1, +S2 - GI/Abdominal Exam GI & Abdominal Exam: Soft, Normal Bowel Sounds. absent: Distended, Firm, Guarding, Rigid, Tenderness, Rebound - Extremities Exam Extremities Exam: absent: Pedal Edema, Tenderness - Neurological Exam Neurological Exam: Alert, Awake, Oriented x3 - Psychiatric Exam Psychiatric exam: Normal Affect, Normal Mood - Skin Skin Exam: Dry, Intact, Normal Color, Warm. absent: Petechiae Attending/Attestation - Attestation I have personally seen and examined this patient.: Yes I have fully participated in the care of the patient.: Yes I have reviewed all pertinent clinical information, including history, physical exam and plan: Yes Notes (Text): (1) Sepsis MSSA Bacteremia Infected Dialysis Catheter Assessment and Plan: * Sepsis likely secondary to catheter infection and bactermia * Criteria: Febrile (103F), Tachycardic, leukocytosis (WBC 25.1), elevated lactate * White count improving but infected dialysis catheter remains; issue remains his thrombocytopenia and his increased of bleeding risk as well as when surgery will removed dialysis catheter * In ED, patient was given Zosyn 2.25gm and Vancomycin 1gm IV. * Lactate increased from 1.6 at admission to 3.2--> lactate: 1.5 * Blood culture (04/04/18): MSSA * Blood culture (04/06/18): no growth after 48 hours * Blood culture (04/07/18): no growth after 24hours * UA: negative for infection; 2+ protein; urine culture (03/31): no growth * Influenza- negative * Chest xray: no active pulmonary disease * Tylenol 650mg PO Q6H >100.4F * ID consulted, Dr. Gilmore. Help appreciated * Gentamicin 80mg IVPB TThS (active since 04/06/18) * Vancomycin 1 gram IVPB TThS (Active since 04/06/18) * Naficillin 2mg IV Q6H (active since 04/07/18) * Surgery consulted, Dr. Quach. Help appreciated * ICU consulted. Patient accepted and transferred to ICU Bed 15 on 04/04/18. Further management as per ICU team. Transferred back on 04/06/18 following syncopal episode during dialysis. Awaiting when surgery will take out dialysis catheter. Dr. Quach is away for holiday and patient's platelets lower. Medications: * Reglan 10mg IV Q6h PRN for nausea/vomiting * Tylenol 650mg PO Q6h PRN for fevers/pain * Cooling blanket ordered but not available Status: Acute (2) ESRD (end stage renal disease) on dialysis Assessment and Plan: * Dialysis schedule: TTS * Nephrology consulted, Dr. Villasenor. Help appreciated * Sepsis likely secondary to catheter infection. Will likely be removed and replaced * We will need to follow-up with surgery to determine when to replace dialysis catheter. Patient has refuses peritoneal dialysis. * f/u surgery and ICU in regards to removal of dialysis catheter and possible necessary platelet transfusion; Dr. Quach is away Status: Acute (3) Hyperkalemia-->normalized Assessment and Plan: * Secondary to ESRD * EKG: sinus tachycardia; no ST or T wave changes. * Monitor Status: Acute (4) Severe thrombocytopenia Assessment and Plan: * Hem/Onc consulted, Dr. Benites. 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 * Heme/Onc consulted, Dr. Benites. Help appreciated. * Renal biopsy confirmed in prior hospitalization noted in the EMR Status: Acute (6) Hypertension Assessment and Plan: * Home medication: * Clonidine 0.2mg PO BID * Norvasc 10mg PO daily * Coreg 3.125mg PO BID Status: Chronic (7) Headache Assessment and Plan: * Head CT: no mass, hemorrhage, or acute infarct identified. mild cerebral atrophy. Status: Acute (8) Prophylactic measure Assessment and Plan: * DVT: No chemical anticoagulation due to severe thrombocytopenia * GI: Pepcid 20mg Iv q daily * Palliative consult: goals of care-->help appreciated Status: Acute
[2018-04-09 08:39] LABS: BASOPHIL 1 % (0-2); LYMPHOCYTE 19 % (20-40); MONOCYTE 14 % (0-10); NEUTROPHIL 66 % (50-75); PLATELET ESTIMATE MARKEDLY DECREASED (NORMAL); TOTAL CELLS COUNTED 100
[2018-04-09 08:40] LABS: ANISOCYTOSIS SLIGHT; GIANT PLATELETS PRESENT; LARGE PLATELETS PRESENT; TOXIC GRANULATION PRESENT
[2018-04-09 08:42] LABS: HYPOCHROMIC SLIGHT; OVALOCYTES SLIGHT; POIKILOCYTOSIS SLIGHT; POLYCHROMIC SLIGHT
[2018-04-09] MEDS: WATER IVPB SCH (10:44)
[2018-04-09] MEDS: DEXTROSE 5% IVPB SCH (10:44)
[2018-04-09] MEDS: ACETYLCYSTEINE IVPB SCH (10:44)
--- NOTE | 2018-04-09 15:39 | CP.PCM.PN ---
Subjective - Date & Time of Evaluation Date of Evaluation: 04/09/18 Time of Evaluation: 16:00 - Subjective Subjective: PAtient has no specific complaints. Objective - Vital Signs/Intake and Output Vital Signs (last 24 hours): Temp Pulse Resp BP Pulse Ox 98.5 F 77 16 145/104 H 98 04/09/18 14:45 04/09/18 14:45 04/09/18 14:45 04/09/18 14:45 04/09/18 12:00 Intake and Output: 04/09/18 04/09/18 06:59 18:59 Intake Total 1505.6 1806.6 Output Total 2900 0 Balance -1394.4 1806.6 - Medications Medications: Current Medications Acetaminophen (Tylenol 325mg Tab) 650 mg PO Q6 PRN PRN Reason: Fever >100.4 F Last Admin: 04/06/18 09:07 Dose: 650 mg Acyclovir (Zovirax) 400 mg PO BID [facility] PRN Reason: Protocol Last Admin: 04/09/18 11:00 Dose: 400 mg Amlodipine Besylate (Norvasc) 10 mg PO DAILY [facility] Last Admin: 04/09/18 12:33 Dose: 10 mg Carvedilol (Coreg) 3.125 mg PO BID [facility] Last Admin: 04/09/18 10:03 Dose: 3.125 mg Clonidine HCl (Catapres) 0.1 mg PO TID [facility] Last Admin: 04/09/18 13:59 Dose: 0.1 mg Famotidine (Pepcid) 20 mg IVP DAILY [facility] Last Admin: 04/09/18 11:00 Dose: 20 mg Hydroxyzine HCl (Atarax) 25 mg PO Q6 PRN PRN Reason: Agitation Vancomycin/Sodium Chloride (Vancomycin 1 Gm/Ns 200 Ml) 1 gm in 200 mls @ 133 mls/hr IVPB TTS [facility] PRN Reason: Protocol Stop: 04/11/18 17:01 Last Admin: 04/08/18 13:00 Dose: 133 mls/hr Gentamicin Sulfate 80 mg/ (Sodium Chloride) 102 mls @ 100 mls/hr IVPB TTS [facility] PRN Reason: Protocol Last Admin: 04/08/18 09:18 Dose: 100 mls/hr Acetylcysteine 12,315 mg/ (Dextrose) 1,000 mls @ 58.8 mls/hr IVPB DAILY [facility] Stop: 04/17/18 12:49 Last Admin: 04/09/18 10:44 Dose: 58.8 mls/hr Nafcillin Sodium 2 gm/ Sodium (Chloride) 250 mls @ 250 mls/hr IVPB Q6H [facility] PRN Reason: Protocol Last Admin: 04/09/18 14:25 Dose: 250 mls/hr Metoclopramide HCl (Reglan) 10 mg IVP Q6H PRN PRN Reason: Nausea/Vomiting Last Admin: 04/05/18 22:16 Dose: 10 mg Ondansetron HCl (Zofran Inj) 4 mg IVP Q4H PRN PRN Reason: Nausea/Vomiting Last Admin: 04/06/18 01:37 Dose: 4 mg Trazodone HCl (Desyrel) 50 mg PO HS [facility] Last Admin: 04/08/18 21:14 Dose: 50 mg - Labs Labs: 04/09/18 06:22 04/09/18 06:19 PT 13.4 SECONDS (9.7-12.2) H 04/04/18 06:59 INR 1.2 04/04/18 06:59 APTT 32 SECONDS (21-34) 04/04/18 06:59 - Head Exam Head Exam: ATRAUMATIC, NORMAL INSPECTION - Eye Exam Eye Exam: EOMI Pupil Exam: NORMAL ACCOMODATION - Neck Exam Neck Exam: Full ROM - Respiratory Exam Respiratory Exam: Clear to Ausculation Bilateral, NORMAL BREATHING PATTERN - Cardiovascular Exam Cardiovascular Exam: REGULAR RHYTHM, +S1, +S2 - GI/Abdominal Exam GI & Abdominal Exam: Normal Bowel Sounds - Rectal Exam Rectal Exam: NORMAL INSPECTION - Extremities Exam Extremities Exam: Normal Inspection - Neurological Exam Neurological Exam: Alert, Awake, CN II-XII Intact Assessment and Plan - Assessment and Plan (Free Text) Assessment: Patient is a 32M with a past medical history of HTN, ESRD (HD Tues, Th, Sat) , known atypical HUS and thrombocytopenia. ICU consulted for evaluation and treatment of sepsis and severe thrombocytopenia. -Sepsis: Staph aureus in culture, repeat Bcx pending, continue abx as per ID, removal of HD cath as per surgery -HTN:continue home medications ESRD (TTS): continue hd as per renal -Thrombocytopenia: chornic previous attempts at plasmapharesis, immunomodulator failed, heme/.onc input appreciated Continue to monitor, N-Acetylcysteine is also not effective. [id number] Ordered - Follow up. -platelets orderd today -IV solumedrol 40 mg daily -right chest pustular lesion: contact isolation, start acyclovir orally continue DVT/PUD ppx Patient remains hemodynamically stable.
[2018-04-10 05:36] LABS: HEMOGLOBIN 11.4 g/dL (12.0-18.0); MEAN CELL VOLUME 90.5 fL (80.0-94.0); MEAN CORPUSCULAR HEMOGLOBIN 30.2 pg (27.0-31.0); MEAN CORPUSCULAR HGB CONC 33.3 g/dL (33.0-37.0); RBC 3.78 Mil/uL (4.40-5.90); RED CELL DISTRIBUTION WIDTH 15.3 % (11.5-14.5); WHITE BLOOD COUNT 13.2 K/uL (4.8-10.8)
[2018-04-10 06:07] LABS: ALB/GLOB RATIO 1.3 (1.0-2.1); ALBUMIN 3.9 g/dL (3.5-5.0); CALCIUM 8.8 mg/dl (8.6-10.4)
[2018-04-10 09:14] LABS: MEAN PLATELET VOLUME 8.8 fL (7.2-11.7)
[2018-04-10 09:17] LABS: EOS # 0.2 K/uL (0.0-0.7); LYMPH # 4.4 K/uL (1.0-4.3); MONO # 1.3 K/uL (0.0-0.8); NEUT # 7.3 K/uL (1.8-7.0)
[2018-04-10] MEDS: DEXTROSE 5% IVPB SCH (11:18)
[2018-04-10] MEDS: WATER IVPB SCH (11:18)
[2018-04-10] MEDS: ACETYLCYSTEINE IVPB SCH (11:18)
--- NOTE | 2018-04-10 12:06 | CP.PCM.PN ---
Subjective - Date & Time of Evaluation Date of Evaluation: 04/10/18 Time of Evaluation: 12:04 - Subjective Subjective: afebrile denies any f/c/sob/cp/dizziness/headache/n/v/d/rash blooc cultures repeat neg Objective - Vital Signs/Intake and Output Vital Signs (last 24 hours): Temp Pulse Resp BP Pulse Ox 98.2 F 74 18 171/122 H 98 04/10/18 08:00 04/10/18 11:00 04/10/18 11:00 04/10/18 10:51 04/10/18 11:00 Intake and Output: 04/10/18 04/10/18 06:59 18:59 Intake Total 1205.6 550 Output Total 1200 550 Balance 5.6 0 - Medications Medications: Current Medications Acetaminophen (Tylenol 325mg Tab) 650 mg PO Q6 PRN PRN Reason: Fever >100.4 F Last Admin: 04/06/18 09:07 Dose: 650 mg Acyclovir (Zovirax) 400 mg PO BID [facility] PRN Reason: Protocol Last Admin: 04/10/18 09:08 Dose: 400 mg Amlodipine Besylate (Norvasc) 10 mg PO DAILY [facility] Last Admin: 04/10/18 09:10 Dose: 10 mg Carvedilol (Coreg) 3.125 mg PO BID [facility] Last Admin: 04/10/18 09:08 Dose: 3.125 mg Clonidine HCl (Catapres) 0.1 mg PO TID [facility] Last Admin: 04/10/18 09:08 Dose: 0.1 mg Famotidine (Pepcid) 20 mg PO DAILY [facility] Last Admin: 04/10/18 09:07 Dose: 20 mg Hydralazine HCl (Apresoline) 25 mg PO Q8 [facility] Hydroxyzine HCl (Atarax) 25 mg PO Q6 PRN PRN Reason: Agitation Vancomycin/Sodium Chloride (Vancomycin 1 Gm/Ns 200 Ml) 1 gm in 200 mls @ 133 mls/hr IVPB TTS [facility] PRN Reason: Protocol Stop: 04/11/18 17:01 Last Admin: 04/08/18 13:00 Dose: 133 mls/hr Gentamicin Sulfate 80 mg/ (Sodium Chloride) 102 mls @ 100 mls/hr IVPB TTS [facility] PRN Reason: Protocol Last Admin: 05/26/18 09:18 Dose: 100 mls/hr Nafcillin Sodium 2 gm/ Sodium (Chloride) 250 mls @ 250 mls/hr IVPB Q6H [facility] PRN Reason: Protocol Last Admin: 04/10/18 09:10 Dose: 250 mls/hr Metoclopramide HCl (Reglan) 10 mg IVP Q6H PRN PRN Reason: Nausea/Vomiting Last Admin: 04/05/18 22:16 Dose: 10 mg Ondansetron HCl (Zofran Inj) 4 mg IVP Q4H PRN PRN Reason: Nausea/Vomiting Last Admin: 04/06/18 01:37 Dose: 4 mg Trazodone HCl (Desyrel) 50 mg PO HS [facility] Last Admin: 04/09/18 21:03 Dose: 50 mg - Labs Labs: 04/10/18 05:22 04/10/18 05:22 PT 13.4 SECONDS (9.7-12.2) H 04/04/18 06:59 INR 1.2 04/04/18 06:59 APTT 32 SECONDS (21-34) 04/04/18 06:59 - Constitutional Appears: No Acute Distress, Chronically Ill - Head Exam Head Exam: NORMAL INSPECTION, NORMOCEPHALIC - Eye Exam Eye Exam: Normal appearance, PERRL - ENT Exam ENT Exam: Mucous Membranes Moist, Normal Exam - Neck Exam Neck Exam: Full ROM, Normal Inspection - Respiratory Exam Respiratory Exam: Clear to Ausculation Bilateral, NORMAL BREATHING PATTERN - Cardiovascular Exam Cardiovascular Exam: REGULAR RHYTHM, RRR Additional comments: rt chest permcath - GI/Abdominal Exam GI & Abdominal Exam: Bruit, Soft - Extremities Exam Extremities Exam: Full ROM, Normal Inspection - Back Exam Back Exam: NORMAL INSPECTION - Neurological Exam Neurological Exam: Alert, Awake, Oriented x3 - Psychiatric Exam Psychiatric exam: Normal Affect, Normal Mood - Skin Skin Exam: Dry, Intact Assessment and Plan (1) ESRD (end stage renal disease) on dialysis Status: Acute (2) Fever Status: Acute (3) Hyperkalemia Status: Acute (4) Thrombocytopenia Status: Acute (5) Leukocytosis Status: Acute - Assessment and Plan (Free Text) Assessment: catheter related bacteremia/sepsis chronic thrombocytopenia htn esrd plan: maintain hd tts needs cathetr change, surgery on board antibiotics per ID may increase clonidine dose for high bp
--- NOTE | 2018-04-10 13:38 | CP.CCUPN ---
CCU Subjective - Physician Review Events Since Last Encounter (Free Text): 04/10/18 13:37 32-year-old male with a history of thrombocytopenia me End-stage renal disease on dialysis Admitted with a sepsis, and catheter-related infection. Because of the severe thrombocytopenia currently he model his catheter was not changed G8, he is on antibiotic. CCU Objective - Vital Signs / Intake & Output Vital Signs (Last 4 hours): Vital Signs Temp Pulse Resp BP Pulse Ox 04/10/18 13:00 75 15 100 04/10/18 12:51 87 14 170/128 H 98 04/10/18 12:00 98.5 F 82 15 98 04/10/18 11:52 83 15 185/134 H 99 04/10/18 11:00 74 18 98 04/10/18 10:51 73 17 171/122 H 98 04/10/18 10:00 67 14 99 04/10/18 09:52 73 13 164/125 H Intake and Output (Last 8hrs): Intake & Output 04/09/18 04/10/18 04/10/18 22:59 06:59 14:59 Intake Total 1145.4 720.4 730 Output Total 1200 550 Balance 1145.4 -479.6 180 Weight 187 lb 8 oz Intake: Intake, IV Amount 720.4 720.4 250 Left Arm 235.2 Right Antecubital 235.2 470.4 250 Right Forearm 250 250 Oral 400 480 Blood Product 0 Apheresis Plts Acda Lr 0 Irr Unit [id number] Other 25 Apheresis Plts Acda Lr 25 Irr Unit [id number] Output: Urine 1200 550 Urine, Voided 1200 550 Other: # Voids Urine, Voided 1 # Bowel Movements 1 - Physical Exam Narrative Physical Exam (Free Text): 04/10/18 13:37 Comfortable not in any distress right abdominal pain noted. Patient is also having a rash in the right chest Head: Positive for: Atraumatic, Normocephalic Pupils: Positive for: PERRL Extroacular Muscles: Positive for: EOMI Conjunctiva: Positive for: Normal Mouth: Positive for: Moist Mucous Membranes Pharnyx: Positive for: Normal. Negative for: ERYTHEMA Neck: Positive for: Normal Range of Motion, Bruit, Trachea Midline Respiratory/Chest: Positive for: Clear to Auscultation, Good Air Exchange. Negative for: Respiratory Distress, Accessory Muscle Use, Wheezes, Rales, Rhonchi Cardiovascular: Positive for: Regular Rate and Rhythm, Normal S1, S2, Peripheal Pulses Present. Negative for: Murmurs, Irregular Rhythm Abdomen: Positive for: Distention, Normal Bowel Sounds. Negative for: Tenderness Back: Negative for: CVA Tenderness Neurological: Positive for: GCS=15, CN II-XII Intact, Speech Normal, Motor Func Grossly Intact, Normal Sensory Function - Medications Active Medications: Active Medications Generic Name Dose Route Start Last Admin Trade Name Freq PRN Reason Stop Dose Admin Acetaminophen 650 mg 04/04/18 12:07 04/06/18 09:07 Tylenol 325mg Tab PO 650 mg Q6 PRN Administration Fever >100.4 F Acyclovir 400 mg 04/09/18 12:45 04/10/18 09:08 Zovirax PO 400 mg BID [facility] Administration Protocol Amlodipine Besylate 10 mg 04/05/18 14:00 04/10/18 09:10 Norvasc PO 10 mg DAILY [facility] Administration Carvedilol 3.125 mg 04/06/18 10:00 04/10/18 09:08 Coreg PO 3.125 mg BID [facility] Administration Clonidine HCl 0.1 mg 04/07/18 14:00 04/10/18 13:17 Catapres PO 0.1 mg TID [facility] Administration Famotidine 20 mg 04/10/18 10:00 04/10/18 09:07 Pepcid PO 20 mg DAILY [facility] Administration Hydralazine HCl 25 mg 04/10/18 14:00 04/10/18 13:16 Apresoline PO 25 mg Q8 [facility] Administration Hydroxyzine HCl 25 mg 04/06/18 18:06 Atarax PO Q6 PRN Agitation Vancomycin/Sodium Chloride 1 gm in 200 mls @ 133 mls/hr 04/06/18 17:00 13:00 Vancomycin 1 Gm/Ns 200 Ml IVPB 04/11/18 17:01 133 mls/hr TTS [facility] Administration Protocol Gentamicin Sulfate 80 mg/ 102 mls @ 100 mls/hr 04/06/18 16:30 04/08/18 09:18 Sodium Chloride IVPB 100 mls/hr TTS [facility] Administration Protocol Nafcillin Sodium 2 gm/ Sodium 250 mls @ 250 mls/hr 04/07/18 15:00 04/10/18 09 :10 Chloride IVPB 250 mls/hr Q6H [facility] Administration Protocol Metoclopramide HCl 10 mg 04/04/18 13:31 04/05/18 22:16 Reglan IVP 10 mg Q6H PRN Administration Nausea/Vomiting Ondansetron HCl 4 mg 04/05/18 15:54 04/06/18 01:37 Zofran Inj IVP 4 mg Q4H PRN Administration Nausea/Vomiting Trazodone HCl 50 mg 04/06/18 22:00 04/09/18 21:03 Desyrel PO 50 mg HS [facility] Administration - Patient Studies Lab Studies: Microbiology Studies 04/06/18 21:30 Blood Culture - Preliminary Blood-Venous NO GROWTH AFTER 3 DAYS 04/06/18 21:00 Blood Culture - Preliminary Blood-Venous NO GROWTH AFTER 3 DAYS 04/07/18 15:30 Blood Culture - Preliminary Blood-Venous NO GROWTH AFTER 48 HOURS 04/07/18 16:30 Blood Culture - Preliminary Blood-Venous NO GROWTH AFTER 48 HOURS Lab Studies 04/10/18 04/10/18 Range/Units 05:22 05:22 WBC 13.2 H (4.8-10.8) K/uL RBC 3.78 L (4.40-5.90) Mil/uL Hgb 11.4 L (12.0-18.0) g/dL Hct 34.2 L (35.0-51.0) % MCV 90.5 (80.0-94.0) fL MCH 30.2 (27.0-31.0) pg MCHC 33.3 (33.0-37.0) g/dL RDW 15.3 H (11.5-14.5) % Plt Count 29 L* D (130-400) K/uL MPV 8.8 (7.2-11.7) fL Neut % (Auto) 55.0 (50.0-75.0) % Lymph % (Auto) 33.0 (20.0-40.0) % Wilkinson % (Auto) 10.0 (0.0-10.0) % Eos % (Auto) 2.0 (0.0-4.0) % Baso % (Auto) 0.0 (0.0-2.0) % Neut # (Auto) 7.3 H (1.8-7.0) K/uL Lymph # (Auto) 4.4 H (1.0-4.3) K/uL Wilkinson # (Auto) 1.3 H (0.0-0.8) K/uL Eos # (Auto) 0.2 (0.0-0.7) K/uL Baso # (Auto) 0.0 (0.0-0.2) K/uL Differential Comment Sodium 141 (132-148) mmol/L Potassium 3.7 (3.6-5.2) mmol/L Chloride 103 (98-107) mmol/L Carbon Dioxide 18 L (22-30) mmol/L Anion Gap 24 H (10-20) BUN 37 H (9-20) mg/dL Creatinine 4.5 H (0.8-1.5) mg/dL Est GFR ( Amer) 18 Est GFR (Non-Af Amer) 15 Random Glucose 73 L (75-110) mg/dL Calcium 8.8 (8.6-10.4) mg/dl Phosphorus 4.7 H (2.5-4.5) mg/dL Magnesium 2.2 (1.6-2.3) mg/dL Total Bilirubin 1.6 H (0.2-1.3) mg/dL AST 36 (17-59) U/L ALT 62 (21-72) U/L Alkaline Phosphatase 87 (38-126) U/L Total Protein 6.8 (6.3-8.3) g/dL Albumin 3.9 (3.5-5.0) g/dL Globulin 2.9 (2.2-3.9) gm/dL Albumin/Globulin Ratio 1.3 (1.0-2.1) Laboratory Results - last 24 hr 04/10/18 04/10/18 05:22 05:22 WBC 13.2 H RBC 3.78 L Hgb 11.4 L Hct 34.2 L MCV 90.5 MCH 30.2 MCHC 33.3 RDW 15.3 H Plt Count 29 L* D MPV 8.8 Neut % (Auto) 55.0 Lymph % (Auto) 33.0 Wilkinson % (Auto) 10.0 Eos % (Auto) 2.0 Baso % (Auto) 0.0 Neut # (Auto) 7.3 H Lymph # (Auto) 4.4 H Wilkinson # (Auto) 1.3 H Eos # (Auto) 0.2 Baso # (Auto) 0.0 Differential Comment Sodium 141 Potassium 3.7 Chloride 103 Carbon Dioxide 18 L Anion Gap 24 H BUN 37 H Creatinine 4.5 H Est GFR ( Amer) 18 Est GFR (Non-Af Amer) 15 Random Glucose 73 L Calcium 8.8 Phosphorus 4.7 H Magnesium 2.2 Total Bilirubin 1.6 H AST 36 ALT 62 Alkaline Phosphatase 87 Total Protein 6.8 Albumin 3.9 Globulin 2.9 Albumin/Globulin Ratio 1.3 Critical Care Progress Note - Nutrition Nutrition: Nutrition Category Date Time Status Renal Diet [DIET] Diets 04/07/18 Dinner Active Assessment/Plan (1) Atypical hemolytic uremic syndrome Assessment and plan: Patient admitted to the hospital with acute sepsis, possibly secondary to catheter related infection. Receiving hemodialysis. Thrombocyte cytopenia. Patient has a herpes zoster involving the right chest. Currently on treatment. Possibly transfer to floor Current Visit: Yes Status: Acute Priority: High (2) ESRD (end stage renal disease) on dialysis Current Visit: Yes Status: Acute Priority: High Comment: Continue Dialysis TTS (3) Hyperkalemia Current Visit: Yes Status: Acute
--- NOTE | 2018-04-10 19:30 | CP.PCM.PN ---
Subjective - Date & Time of Evaluation Date of Evaluation: 04/10/18 Time of Evaluation: 17:30 - Subjective Subjective: Hospitalist Progress Note Patient was seen and examined at 5:30 PM 32 year old male who is currently being treated for MSSA Bacteremia secondary to likely Right Chest Dialysis Catheter complicated by history of Hemolytic Uremic Syndrome. Awaiting surgical removal and replacement of dialysis catheter. Please see individual Assessment and Plans below for further details of treatment and plan since his admission. Currently upon FULL ROS: Moving his bowels NO chest pain NO SOB NO abdominal pain NOT very hungry but still eating small amount - Constitutional Appears: Non-toxic, No Acute Distress - Head Exam Head Exam: NORMAL INSPECTION Additional comments: Dialysis catheter: right side of chest - Eye Exam Eye Exam: EOMI - ENT Exam ENT Exam: Mucous Membranes Moist - Neck Exam Neck Exam: absent: Lymphadenopathy, Meningismus - Respiratory Exam Respiratory Exam: NORMAL BREATHING PATTERN. absent: Rales, Rhonchi, Wheezes - Cardiovascular Exam Cardiovascular Exam: REGULAR RHYTHM, +S1, +S2 - GI/Abdominal Exam GI & Abdominal Exam: Soft, Normal Bowel Sounds. absent: Distended, Firm, Guarding, Rigid, Tenderness, Rebound - Extremities Exam Extremities Exam: absent: Pedal Edema, Tenderness - Neurological Exam Neurological Exam: Alert, Awake, Oriented x3 - Psychiatric Exam Psychiatric exam: Normal Affect, Normal Mood - Skin Skin Exam: THERE IS A RASH CONSISTENT WITH SHINGLES (WITHOUT ANY SECONDARY CELLULITIS) IN THE RIGHT AXILLARY AREA INFERIOR AND [facility] (1) Sepsis MSSA Bacteremia Infected Dialysis Catheter Assessment and Plan: * Sepsis likely secondary to catheter infection and bactermia * Criteria: Febrile (103F), Tachycardic, leukocytosis (WBC 25.1), elevated lactate * White count improving but infected dialysis catheter remains; issue remains his thrombocytopenia and his increased of bleeding risk as well as when surgery will removed dialysis catheter * In ED, patient was given Zosyn 2.25gm and Vancomycin 1gm IV. * Lactate increased from 1.6 at admission to 3.2--> lactate: 1.5 * Blood culture (04/04/18): MSSA * Blood culture (04/06/18): no growth after 48 hours * Blood culture (04/07/18): no growth after 24hours * UA: negative for infection; 2+ protein; urine culture (03/31): no growth * Influenza- negative * Chest xray: no active pulmonary disease * Tylenol 650mg PO Q6H >100.4F * ID consulted, Dr. Gilmore. Help appreciated * Gentamicin 80mg IVPB TThS (active since 04/06/18) * Vancomycin 1 gram IVPB TThS (Active since 04/06/18) * Naficillin 2mg IV Q6H (active since 04/07/18) * Surgery consulted, Dr. Quach. Help appreciated * ICU consulted. Patient accepted and transferred to ICU Bed 15 on 04/04/18. Further management as per ICU team. Transferred back on 04/06/18 following syncopal episode during dialysis. Awaiting when surgery will take out dialysis catheter. Dr. Quach is away for holiday and patient's platelets lower. Medications: * Reglan 10mg IV Q6h PRN for nausea/vomiting * Tylenol 650mg PO Q6h PRN for fevers/pain Status: Acute (2) ESRD (end stage renal disease) on dialysis Assessment and Plan: * Dialysis schedule: TTS * Nephrology consulted, Dr. Villasenor. Help appreciated * Sepsis likely secondary to catheter infection. Will likely be removed and replaced * We will need to follow-up with surgery to determine when to replace dialysis catheter. Patient has refuses peritoneal dialysis. * f/u surgery and ICU in regards to removal of dialysis catheter and possible necessary platelet transfusion; Dr. Quach is away Status: Acute (3) Hyperkalemia-->normalized Assessment and Plan: * Secondary to ESRD * EKG: sinus tachycardia; no ST or T wave changes. * Monitor Status: Acute (4) Severe thrombocytopenia Assessment and Plan: * Hem/Onc consulted, Dr. Benites. 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 * Heme/Onc consulted, Dr. Benites. Help appreciated. * Renal biopsy confirmed in prior hospitalization noted in the EMR Status: Acute (6) Hypertension Assessment and Plan: * Home medication: * Clonidine 0.2 mg PO BID * Norvasc 10 mg PO daily * Coreg 6.25 mg PO BID Status: Chronic (7) Headache Assessment and Plan: * Head CT: no mass, hemorrhage, or acute infarct identified. mild cerebral atrophy. Status: Acute (8) Shingles Assessment and Plan: * Acyclovir 800 mg 5x/day through 04/17/18 Status: Acute (9) Anemia of Chronic Disease Secondary to ESRD Assessment and Plan: * Monitor HgB/Hct Status: Chronic (10) Prophylactic measure Assessment and Plan: * DVT: No chemical anticoagulation due to severe thrombocytopenia * NO H2 alycia or PPI due to possibly worsening of thrombocytopenia * Palliative consult: goals of care-->help appreciated Status: Acute Kyle Valle D.O. Objective - Vital Signs/Intake and Output Vital Signs (last 24 hours): Temp Pulse Resp BP Pulse Ox 98.5 F 82 13 172/123 H 98 04/10/18 16:00 04/10/18 18:00 04/10/18 16:06 04/10/18 16:07 04/10/18 16:06 Intake and Output: 04/10/18 04/11/18 18:59 06:59 Intake Total 1400 Output Total 850 0 Balance 550 0 - Medications Medications: Current Medications Acetaminophen (Tylenol 325mg Tab) 650 mg PO Q6 PRN PRN Reason: Fever >100.4 F Last Admin: 04/10/18 15:34 Dose: 650 mg Acyclovir (Zovirax) 800 mg PO 5XD [facility] PRN Reason: Protocol Stop: 04/17/18 22:00 Amlodipine Besylate (Norvasc) 10 mg PO DAILY [facility] Last Admin: 04/10/18 09:10 Dose: 10 mg Carvedilol (Coreg) 6.25 mg PO BID [facility] Clonidine HCl (Catapres) 0.2 mg PO TID [facility] Hydralazine HCl (Apresoline) 25 mg PO Q8 [facility] Last Admin: 04/10/18 13:16 Dose: 25 mg Hydroxyzine HCl (Atarax) 25 mg PO Q6 PRN PRN Reason: Agitation Vancomycin/Sodium Chloride (Vancomycin 1 Gm/Ns 200 Ml) 1 gm in 200 mls @ 133 mls/hr IVPB TTS [facility] PRN Reason: Protocol Stop: 04/11/18 17:01 Last Admin: 04/08/18 13:00 Dose: 133 mls/hr Gentamicin Sulfate 80 mg/ (Sodium Chloride) 102 mls @ 100 mls/hr IVPB TTS [facility] PRN Reason: Protocol Last Admin: 04/08/18 09:18 Dose: 100 mls/hr Nafcillin Sodium 2 gm/ Sodium (Chloride) 250 mls @ 250 mls/hr IVPB Q6H [facility] PRN Reason: Protocol Last Admin: 04/10/18 14:17 Dose: 250 mls/hr Metoclopramide HCl (Reglan) 10 mg IVP Q6H PRN PRN Reason: Nausea/Vomiting Last Admin: 04/05/18 22:16 Dose: 10 mg Ondansetron HCl (Zofran Inj) 4 mg IVP Q4H PRN PRN Reason: Nausea/Vomiting Last Admin: 04/06/18 01:37 Dose: 4 mg Trazodone HCl (Desyrel) 50 mg PO [facility] Last Admin: 04/09/18 21:03 Dose: 50 mg - Labs Labs: 04/10/18 05:22 04/10/18 05:22 PT 13.4 SECONDS (9.7-12.2) H 04/04/18 06:59 INR 1.2 04/04/18 06:59 APTT 32 SECONDS (21-34) 04/04/18 06:59
--- NOTE | 2018-04-11 07:21 | PN ---
DATE: 04/07/2018 SUBJECTIVE: The patient remains in the ICU and he offers no new complaints. His blood culture came out positive for MSSA and I am trying to put him on nafcillin if he has good lines. He was on vancomycin, Zosyn and we gave him gentamicin, but he was and brought into the ICU. PHYSICAL EXAMINATION: VITAL SIGNS: Temperature is 98.9 right now, pulse is 76, respirations are 17 and blood pressure 108/77. GENERAL: He is awake and alert, hard of hearing, uses an audio amplifier. HEENT: Head is atraumatic. NECK: Supple. LUNGS: Clear. HEART: S1, S2 is regular. ABDOMEN: Has a right-sided dialysis catheter. Abdomen is soft. EXTREMITIES: No edema. LABORATORY DATA: White count is 14.4 today is better, platelets are 11. ASSESSMENT AND PLAN: We will discontinue Zosyn and put him on nafcillin and if he is able to tolerate nafcillin then probably we will discontinue vancomycin, but we will wait for the cultures to be negative before discontinuing gentamicin. I will be away till 04/14/[address] Frazier will be covering me. If any questions please call him. Jaswant Gilmore MD
--- NOTE | 2018-04-11 11:00 | CP.PCM.PN ---
Subjective - Date & Time of Evaluation Date of Evaluation: 04/11/18 Time of Evaluation: 10:59 - Subjective Subjective: seen and examined c/o headache no f/c/sob/n/v/d/dizziness/cp/dysuria/bleeding Objective - Vital Signs/Intake and Output Vital Signs (last 24 hours): Temp Pulse Resp BP Pulse Ox 99.6 F 85 20 166/115 H 98 04/11/18 08:00 04/11/18 10:05 04/11/18 10:05 04/11/18 10:05 04/11/18 10:05 Intake and Output: 04/11/18 04/11/18 06:59 18:59 Intake Total 740 Output Total 0 1200 Balance 0 -460 - Medications Medications: Current Medications Acetaminophen (Tylenol 325mg Tab) 650 mg PO Q6 PRN PRN Reason: Fever >100.4 F Last Admin: 04/11/18 07:58 Dose: 650 mg Acyclovir (Zovirax) 800 mg PO 5XD [facility] PRN Reason: Protocol Stop: 04/17/18 22:00 Last Admin: 04/11/18 08:00 Dose: 800 mg Amlodipine Besylate (Norvasc) 10 mg PO DAILY [facility] Last Admin: 04/10/18 09:10 Dose: 10 mg Carvedilol (Coreg) 6.25 mg PO BID [facility] Last Admin: 04/11/18 09:52 Dose: 6.25 mg Clonidine HCl (Catapres) 0.2 mg PO TID [facility] Last Admin: 04/11/18 09:52 Dose: 0.2 mg Hydralazine HCl (Apresoline) 25 mg PO Q8 [facility] Last Admin: 04/11/18 07:14 Dose: 25 mg Hydroxyzine HCl (Atarax) 25 mg PO Q6 PRN PRN Reason: Agitation Vancomycin/Sodium Chloride (Vancomycin 1 Gm/Ns 200 Ml) 1 gm in 200 mls @ 133 mls/hr IVPB TTS [facility] PRN Reason: Protocol Stop: 04/11/18 17:01 Last Admin: 04/08/18 13:00 Dose: 133 mls/hr Gentamicin Sulfate 80 mg/ (Sodium Chloride) 102 mls @ 100 mls/hr IVPB TTS [facility] PRN Reason: Protocol Last Admin: 04/08/18 09:18 Dose: 100 mls/hr Nafcillin Sodium 2 gm/ Sodium (Chloride) 250 mls @ 250 mls/hr IVPB Q6H [facility] PRN Reason: Protocol Last Admin: 04/11/18 09:51 Dose: 250 mls/hr Metoclopramide HCl (Reglan) 10 mg IVP Q6H PRN PRN Reason: Nausea/Vomiting Last Admin: 04/05/18 22:16 Dose: 10 mg Ondansetron HCl (Zofran Inj) 4 mg IVP Q4H PRN PRN Reason: Nausea/Vomiting Last Admin: 04/06/18 01:37 Dose: 4 mg Trazodone HCl (Desyrel) 50 mg PO HS [facility] Last Admin: 04/10/18 21:01 Dose: 50 mg - Labs Labs: 04/10/18 05:22 04/10/18 05:22 PT 13.4 SECONDS (9.7-12.2) H 04/04/18 06:59 INR 1.2 04/04/18 06:59 APTT 32 SECONDS (21-34) 04/04/18 06:59 - Constitutional Appears: No Acute Distress, Chronically Ill - Head Exam Head Exam: NORMAL INSPECTION, NORMOCEPHALIC - Eye Exam Eye Exam: Normal appearance Pupil Exam: PERRL - ENT Exam ENT Exam: Mucous Membranes Moist, Normal Exam - Neck Exam Neck Exam: Full ROM, Normal Inspection - Respiratory Exam Respiratory Exam: Clear to Ausculation Bilateral (rt chest permcath), NORMAL BREATHING PATTERN - Cardiovascular Exam Cardiovascular Exam: REGULAR RHYTHM, RRR - GI/Abdominal Exam GI & Abdominal Exam: Distended, Soft, Normal Bowel Sounds - Extremities Exam Extremities Exam: Full ROM, Normal Inspection - Neurological Exam Neurological Exam: Alert, Awake, Oriented x3 - Psychiatric Exam Psychiatric exam: Normal Affect, Normal Mood Assessment and Plan (1) ESRD (end stage renal disease) on dialysis Status: Acute (2) Fever Status: Acute (3) Hyperkalemia Status: Acute (4) Thrombocytopenia Status: Acute (5) Leukocytosis Status: Acute - Assessment and Plan (Free Text) Assessment: maintain hd catheter change antibiotics per ID
--- NOTE | 2018-04-11 11:30 | CP.PCM.PN ---
<Judy Headley - Last Filed: 04/11/18 16:19> Subjective - Date & Time of Evaluation Date of Evaluation: 04/11/18 Time of Evaluation: 11:27 - Subjective Subjective: Medicine progress note for Dr. Shi Valle Patient was seen and examined at bedside in no acute distress. Patient reports having intermittent headaches; at the time of examination, he reports his headache is mild. Patient also reports increased urinary frequency. Patient denies chest pain, dysuria, abdominal pain, nausea, vomiting, fevers, dizziness. Objective - Vital Signs/Intake and Output Vital Signs (last 24 hours): Temp Pulse Resp BP Pulse Ox 99.6 F 85 20 166/115 H 98 04/11/18 08:00 04/11/18 10:05 04/11/18 10:05 04/11/18 10:05 04/11/18 10:05 Intake and Output: 04/11/18 04/11/18 06:59 18:59 Intake Total 740 Output Total 0 1200 Balance 0 -460 - Medications Medications: Current Medications Acetaminophen (Tylenol 325mg Tab) 650 mg PO Q6 PRN PRN Reason: Fever >100.4 F Last Admin: 04/11/18 07:58 Dose: 650 mg Acyclovir (Zovirax) 800 mg PO 5XD [facility] PRN Reason: Protocol Stop: 04/17/18 22:00 Last Admin: 04/11/18 08:00 Dose: 800 mg Amlodipine Besylate (Norvasc) 10 mg PO DAILY [facility] Last Admin: 04/10/18 09:10 Dose: 10 mg Carvedilol (Coreg) 6.25 mg PO BID [facility] Last Admin: 04/11/18 09:52 Dose: 6.25 mg Clonidine HCl (Catapres) 0.2 mg PO TID [facility] Last Admin: 04/11/18 09:52 Dose: 0.2 mg Hydralazine HCl (Apresoline) 25 mg PO Q8 [facility] Last Admin: 04/11/18 07:14 Dose: 25 mg Hydroxyzine HCl (Atarax) 25 mg PO Q6 PRN PRN Reason: Agitation Vancomycin/Sodium Chloride (Vancomycin 1 Gm/Ns 200 Ml) 1 gm in 200 mls @ 133 mls/hr IVPB TTS [facility] PRN Reason: Protocol Stop: 04/11/18 17:01 Last Admin: 04/08/18 13:00 Dose: 133 mls/hr Gentamicin Sulfate 80 mg/ (Sodium Chloride) 102 mls @ 100 mls/hr IVPB TTS [facility] PRN Reason: Protocol Last Admin: 04/08/18 09:18 Dose: 100 mls/hr Nafcillin Sodium 2 gm/ Sodium (Chloride) 250 mls @ 250 mls/hr IVPB Q6H [facility] PRN Reason: Protocol Last Admin: 04/11/18 09:51 Dose: 250 mls/hr Metoclopramide HCl (Reglan) 10 mg IVP Q6H PRN PRN Reason: Nausea/Vomiting Last Admin: 04/05/18 22:16 Dose: 10 mg Ondansetron HCl (Zofran Inj) 4 mg IVP Q4H PRN PRN Reason: Nausea/Vomiting Last Admin: 04/06/18 01:37 Dose: 4 mg Trazodone HCl (Desyrel) 50 mg PO HS [facility] Last Admin: 04/10/18 21:01 Dose: 50 mg - Labs Labs: 04/10/18 05:22 04/10/18 05:22 PT 13.4 SECONDS (9.7-12.2) H 04/04/18 06:59 INR 1.2 04/04/18 06:59 APTT 32 SECONDS (21-34) 04/04/18 06:59 - Constitutional Appears: No Acute Distress - Head Exam Head Exam: ATRAUMATIC, NORMAL INSPECTION - Eye Exam Eye Exam: EOMI, Normal appearance - ENT Exam ENT Exam: Mucous Membranes Moist - Respiratory Exam Respiratory Exam: NORMAL BREATHING PATTERN. absent: Rales, Rhonchi, Wheezes, Respiratory Distress - Cardiovascular Exam Cardiovascular Exam: REGULAR RHYTHM, +S1, +S2. absent: Bradycardia, Tachycardia - GI/Abdominal Exam GI & Abdominal Exam: Soft, Normal Bowel Sounds. absent: Distended, Firm, Tenderness - Extremities Exam Extremities Exam: Normal Inspection. 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 (6) Hypertension Status: Chronic (7) Headache Status: Acute (8) Prophylactic measure Status: Acute - Assessment and Plan (Free Text) Plan: (1) Sepsis MSSA Bacteremia Infected Dialysis Catheter Assessment and Plan: * Sepsis likely secondary to catheter infection and bactermia * Criteria: Febrile (103F), Tachycardic, leukocytosis (WBC 25.1), elevated lactate * White count improving but infected dialysis catheter remains; issue remains his thrombocytopenia and his increased of bleeding risk as well as when surgery will removed dialysis catheter * In ED, patient was given Zosyn 2.25gm and Vancomycin 1gm IV. * Lactate increased from 1.6 at admission to 3.2--> lactate: 1.5 * Blood culture (04/04/18): MSSA * Blood culture (04/06/18): no growth after 4 days * Blood culture (04/07/18): no growth after 3 days * UA: negative for infection; 2+ protein; urine culture (03/31): no growth * Influenza- negative * Chest xray: no active pulmonary disease * Tylenol 650mg PO Q6H >100.4F * ID consulted, Dr. Gilmore. Help appreciated * Gentamicin 80mg IVPB TThS (active since 04/06/18) * Vancomycin 1 gram IVPB TThS (Active since 04/06/18) * Naficillin 2mg IV Q6H (active since 04/07/18) * Surgery consulted, Dr. Quach. Help appreciated * ICU consulted. Patient accepted and transferred to ICU Bed 15 on 04/04/18. Further management as per ICU team. Transferred back on 04/06/18 following syncopal episode during dialysis. Awaiting when surgery will take out dialysis catheter. Dr. Quach is away for holiday and patient's platelets lower. Medications: * Reglan 10mg IV Q6h PRN for nausea/vomiting * Tylenol 650mg PO Q6h PRN for fevers/pain * Gentamicin 80mg IVPB TThS (active since 04/06/18) * Vancomycin 1 gram IVPB TThS (Active since 04/06/18) * Naficillin 2mg IV Q6H (Active since 04/07/18) (2) ESRD (end stage renal disease) on dialysis Assessment and Plan: * Dialysis schedule: TTS * Nephrology consulted, Dr. Villasenor. Help appreciated * Sepsis likely secondary to catheter infection. Will likely be removed and replaced * We will need to follow-up with surgery to determine when to replace dialysis catheter. Patient has refuses peritoneal dialysis. * f/u surgery and ICU in regards to removal of dialysis catheter and possible necessary platelet transfusion; Dr. Quach is away (3) Hyperkalemia-->normalized Assessment and Plan: * Secondary to ESRD * EKG: sinus tachycardia; no ST or T wave changes. * Monitor (4) Severe thrombocytopenia Assessment and Plan: * Hem/Onc consulted, Dr. Benites. 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 * Heme/Onc consulted, Dr. Benites. Help appreciated. * Renal biopsy confirmed in prior hospitalization noted in the EMR (6) Hypertension Assessment and Plan: * Uncontrolled * Clonidine 0.2 mg PO BID * Norvasc 10 mg PO daily * Coreg 6.25 mg PO BID * Hydralazine 25mg PO Q8 (added 04/11/18) * Continue to monitor (7) Headache Assessment and Plan: * Head CT (04/04/18): no mass, hemorrhage, or acute infarct identified. mild cerebral atrophy. * Repeat Head CT (04/07/18): unremarkable * Tylenol PRN (8) Shingles Assessment and Plan: * Acyclovir 800 mg Q8h 5x/day through 04/17/18 (9) Anemia of Chronic Disease Secondary to ESRD Assessment and Plan: * Monitor HgB/Hct (10) Prophylactic measure Assessment and Plan: * DVT: No chemical anticoagulation due to severe thrombocytopenia * NO H2 alycia or PPI due to possibly worsening of thrombocytopenia * Palliative consult: goals of care-->help appreciated <Kyle Valle - Last Filed: 04/11/18 19:25> Objective - Vital Signs/Intake and Output Vital Signs (last 24 hours): Temp Pulse Resp BP Pulse Ox 97.6 F 79 10 L 146/112 H 98 04/11/18 16:00 04/11/18 18:54 04/11/18 18:54 04/11/18 18:54 04/11/18 11:05 Intake and Output: 04/11/18 04/12/18 18:59 06:59 Intake Total 1110 Output Total 1775 Balance -665 - Medications Medications: Current Medications Acetaminophen (Tylenol 325mg Tab) 650 mg PO Q6 PRN PRN Reason: Fever >100.4 F Last Admin: 04/11/18 13:27 Dose: 650 mg Acyclovir (Zovirax) 800 mg PO Q8H [facility] PRN Reason: Protocol Stop: 04/17/18 16:01 Amlodipine Besylate (Norvasc) 10 mg PO DAILY [facility] Last Admin: 04/11/18 12:31 Dose: 10 mg Carvedilol (Coreg) 6.25 mg PO BID [facility] Last Admin: 04/11/18 09:52 Dose: 6.25 mg Clonidine HCl (Catapres) 0.2 mg PO TID [facility] Last Admin: 04/11/18 13:27 Dose: 0.2 mg Hydralazine HCl (Apresoline) 25 mg PO Q8 [facility] Last Admin: 04/11/18 13:27 Dose: 25 mg Hydroxyzine HCl (Atarax) 25 mg PO Q6 PRN PRN Reason: Agitation Gentamicin Sulfate 80 mg/ (Sodium Chloride) 102 mls @ 100 mls/hr IVPB TTS [facility] PRN Reason: Protocol Last Admin: 04/11/18 18:07 Dose: 100 mls/hr Nafcillin Sodium 2 gm/ Sodium (Chloride) 250 mls @ 250 mls/hr IVPB Q6H [facility] PRN Reason: Protocol Last Admin: 04/11/18 14:19 Dose: 250 mls/hr Metoclopramide HCl (Reglan) 10 mg IVP Q6H PRN PRN Reason: Nausea/Vomiting Last Admin: 04/05/18 22:16 Dose: 10 mg Ondansetron HCl (Zofran Inj) 4 mg IVP Q4H PRN PRN Reason: Nausea/Vomiting Last Admin: 04/11/18 19:02 Dose: 4 mg Saccharomyces Boulardii (Florastor) 250 mg PO BID [facility] Last Admin: 04/11/18 18:11 Dose: Not Given Trazodone HCl (Desyrel) 50 mg PO HS [facility] Last Admin: 04/10/18 21:01 Dose: 50 mg - Labs Labs: 04/11/18 15:40 04/11/18 15:40 PT 13.4 SECONDS (9.7-12.2) H 04/04/18 06:59 INR 1.2 04/04/18 06:59 APTT 32 SECONDS (21-34) 04/04/18 06:59 Attending/Attestation - Attestation I have personally seen and examined this patient.: Yes I have fully participated in the care of the patient.: Yes I have reviewed all pertinent clinical information, including history, physical exam and plan: Yes Notes (Text): 04/11/18 19:23 Patient was seen and examined with resident Dr. Castro. Exam, assessment and plan were gone over with Dr. Castro. Spoke with Dr. Quach via text later this evening and he is away till next and explained that he is being covered by Surgeon Dr. Huffman. Medicine Team will speak with Dr. Huffman's team on 04/12/18 and arrange for Right Chest PermACath removal and replacement after optimizing his platelets. Kyle Valle D.O.
[2018-04-11 15:56] LABS: ALB/GLOB RATIO 1.1 (1.0-2.1); ALBUMIN 3.2 g/dL (3.5-5.0)
[2018-04-11 16:15] LABS: BASO # 0.1 K/uL (0.0-0.2); BASO % 0.8 % (0.0-2.0); EOS # 0.8 K/uL (0.0-0.7); EOS % 7.6 % (0.0-4.0); HEMOGLOBIN 10.9 g/dL (12.0-18.0); LYMPH # 3.3 K/uL (1.0-4.3); LYMPH % 30.1 % (20.0-40.0); MEAN CELL VOLUME 91.5 fL (80.0-94.0); MEAN CORPUSCULAR HEMOGLOBIN 30.1 pg (27.0-31.0); MEAN CORPUSCULAR HGB CONC 32.8 g/dL (33.0-37.0); MEAN PLATELET VOLUME 9.9 fL (7.2-11.7); MONO # 1.3 K/uL (0.0-0.8); MONO % 11.8 % (0.0-10.0); NEUT # 5.5 K/uL (1.8-7.0); NEUT % 49.7 % (50.0-75.0); NRBC % 0.3 % (0.0-2.0); RBC 3.62 Mil/uL (4.40-5.90); RED CELL DISTRIBUTION WIDTH 15.9 % (11.5-14.5)
[2018-04-11] MEDS: Saccharomyces Boulardi 250 mg Cap PO SCH (18:11)
[2018-04-11] MEDS ORDERED: Apap-Butalbital-Caffeine 325-50-40mg Tab PO STA (18:40)
[2018-04-11] MEDS: Vancomycin 1 gm/NS 200 ml 1 GM/200 ML BAG IVPB SCH (19:06)
[2018-04-11 22:38] VITALS: RESP 20
--- NOTE | 2018-04-12 07:09 | CP.PCM.PN ---
<Judy Headley - Last Filed: 04/12/18 15:42> Subjective - Date & Time of Evaluation Date of Evaluation: 04/12/18 Time of Evaluation: 07:09 - Subjective Subjective: Medicine progress note for Dr. Shi Valle Patient was seen and examined at bedside in no acute distress. Patient had an headache and had an icepack on his forehead, however, during examination, headache had improved. Patient also states he vomited overnight. Patient currently denies nausea, changes in vision, dyspnea, palpitations, chest pain, abdominal pain, fevers, dysuria, diarrhea/constipation. Objective - Vital Signs/Intake and Output Vital Signs (last 24 hours): Temp Pulse Resp BP Pulse Ox 97.9 F 73 20 112/70 97 04/11/18 23:35 04/11/18 23:35 04/11/18 23:35 04/11/18 23:35 04/11/18 23:35 Intake and Output: 04/12/18 04/12/18 06:59 18:59 Intake Total 200 Balance 200 - Medications Medications: Current Medications Acetaminophen (Tylenol 325mg Tab) 650 mg PO Q6 PRN PRN Reason: Fever >100.4 F Last Admin: 04/11/18 13:27 Dose: 650 mg Acyclovir (Zovirax) 800 mg PO Q8H [facility] PRN Reason: Protocol Stop: 04/17/18 16:01 Last Admin: 04/11/18 23:48 Dose: 800 mg Amlodipine Besylate (Norvasc) 10 mg PO DAILY [facility] Last Admin: 04/11/18 12:31 Dose: 10 mg Carvedilol (Coreg) 6.25 mg PO BID [facility] Last Admin: 04/11/18 09:52 Dose: 6.25 mg Clonidine HCl (Catapres) 0.2 mg PO TID [facility] Last Admin: 04/11/18 19:40 Dose: 0.2 mg Hydralazine HCl (Apresoline) 25 mg PO Q8 [facility] Last Admin: 04/12/18 05:09 Dose: 25 mg Hydroxyzine HCl (Atarax) 25 mg PO Q6 PRN PRN Reason: Agitation Gentamicin Sulfate 80 mg/ (Sodium Chloride) 102 mls @ 100 mls/hr IVPB TTS [facility] PRN Reason: Protocol Last Admin: 04/11/18 18:07 Dose: 100 mls/hr Nafcillin Sodium 2 gm/ Sodium (Chloride) 250 mls @ 250 mls/hr IVPB Q6H [facility] PRN Reason: Protocol Last Admin: 04/12/18 02:19 Dose: 250 mls/hr Metoclopramide HCl (Reglan) 10 mg IVP Q6H PRN PRN Reason: Nausea/Vomiting Last Admin: 04/05/18 22:16 Dose: 10 mg Ondansetron HCl (Zofran Inj) 4 mg IVP Q4H PRN PRN Reason: Nausea/Vomiting Last Admin: 04/11/18 19:02 Dose: 4 mg Saccharomyces Boulardii (Florastor) 250 mg PO BID [facility] Last Admin: 04/11/18 18:11 Dose: Not Given Trazodone HCl (Desyrel) 50 mg PO HS [facility] Last Admin: 04/11/18 21:54 Dose: Not Given - Labs Labs: 04/11/18 15:40 04/11/18 15:40 PT 13.4 SECONDS (9.7-12.2) H 04/04/18 06:59 INR 1.2 04/04/18 06:59 APTT 32 SECONDS (21-34) 04/04/18 06:59 - Additional Findings Additional findings: - Constitutional Appears: No Acute Distress - Head Exam Head Exam: ATRAUMATIC, NORMAL INSPECTION - Eye Exam Eye Exam: EOMI, Normal appearance - ENT Exam ENT Exam: Mucous Membranes Moist - Respiratory Exam Respiratory Exam: NORMAL BREATHING PATTERN. absent: Rales, Rhonchi, Wheezes, Respiratory Distress - Cardiovascular Exam Cardiovascular Exam: REGULAR RHYTHM, +S1, +S2. absent: Bradycardia, Tachycardia - GI/Abdominal Exam GI & Abdominal Exam: Soft, Normal Bowel Sounds. absent: Distended, Firm, Tenderness Additional comments: well healed scar s/p previous peritoneal dialysis - Extremities Exam Extremities Exam: Normal Inspection. 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 (6) Hypertension Status: Chronic (7) Headache Status: Acute (8) Prophylactic measure Status: Acute - Assessment and Plan (Free Text) Plan: (1) Sepsis MSSA Bacteremia Infected Dialysis Catheter Assessment and Plan: * Sepsis likely secondary to catheter infection and bactermia * Criteria: Febrile (103F), Tachycardic, leukocytosis (WBC 25.1), elevated lactate * White count improving but infected dialysis catheter remains; issue remains his thrombocytopenia and his increased of bleeding risk as well as when surgery will removed dialysis catheter * In ED, patient was given Zosyn 2.25gm and Vancomycin 1gm IV. * Lactate increased from 1.6 at admission to 3.2--> lactate: 1.5 * Blood culture (04/04/18): MSSA * Blood culture (04/06/18): no growth after 4 days * Blood culture (04/07/18): no growth after 3 days * UA: negative for infection; 2+ protein; urine culture (03/31): no growth * Influenza- negative * Chest xray: no active pulmonary disease * Tylenol 650mg PO Q6H >100.4F * ID consulted, Dr. Gilmore. Help appreciated * Gentamicin 80mg IVPB TThS (active since 04/06/18) * Vancomycin 1 gram IVPB TThS (Active since 04/06/18) * Naficillin 2mg IV Q6H (active since 04/07/18) * Surgery consulted, Dr. Quach. Help appreciated * ICU consulted. Patient accepted and transferred to ICU Bed 15 on 04/04/18. Further management as per ICU team. Transferred back on 04/06/18 following syncopal episode during dialysis. Awaiting when surgery will take out dialysis catheter. Dr. Quach is away for holiday and patient's platelets lower. Medications: * Reglan 10mg IV Q6h PRN for nausea/vomiting * Tylenol 650mg PO Q6h PRN for fevers/pain * Gentamicin 80mg IVPB TThS (active since 04/06/18) * Vancomycin 1 gram IVPB TThS (Active since 04/06/18) * Naficillin 2mg IV Q6H (Active since 04/07/18) (2) ESRD (end stage renal disease) on dialysis Assessment and Plan: * Dialysis schedule: TTS * Nephrology consulted, Dr. Villasenor. Help appreciated * Sepsis likely secondary to catheter infection. Will likely be removed and replaced * We will need to follow-up with surgery to determine when to replace dialysis catheter. Patient has refuses peritoneal dialysis. * f/u surgery and ICU in regards to removal of dialysis catheter and possible necessary platelet transfusion; Dr. Quach is away * Dr. Huffman consulted on 04/12- unavailable at this time. * Reconsulting- Dr. Ortega consulted. (3) Hyperkalemia-->normalized Assessment and Plan: * Secondary to ESRD * EKG: sinus tachycardia; no ST or T wave changes. * Monitor (4) Severe thrombocytopenia Assessment and Plan: * Hem/Onc consulted, Dr. Benites. 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 * Heme/Onc consulted, Dr. Benites. Help appreciated. * Renal biopsy confirmed in prior hospitalization noted in the EMR (6) Hypertension Assessment and Plan: * Improving * Clonidine 0.2 mg PO BID * Norvasc 10 mg PO daily * Coreg 6.25 mg PO BID * Hydralazine 25mg PO Q8 (added 04/11/18) * Continue to monitor (7) Headache Assessment and Plan: * Head CT (04/04/18): no mass, hemorrhage, or acute infarct identified. mild cerebral atrophy. * Repeat Head CT (04/07/18): unremarkable * Tylenol PRN (8) Shingles Assessment and Plan: * Acyclovir 800 mg Q8h 5x/day through 04/17/18 (9) Anemia of Chronic Disease Secondary to ESRD Assessment and Plan: * Monitor HgB/Hct (10) Prophylactic measure Assessment and Plan: * DVT: No chemical anticoagulation due to severe thrombocytopenia * NO H2 alycia or PPI due to possibly worsening of thrombocytopenia * Palliative consult: goals of care-->help appreciated <Kyle Valle - Last Filed: 04/12/18 18:55> Objective - Vital Signs/Intake and Output Vital Signs (last 24 hours): Temp Pulse Resp BP Pulse Ox 97.6 F 77 20 138/78 99 04/12/18 15:54 04/12/18 17:16 04/12/18 15:54 04/12/18 15:54 04/12/18 15:54 Intake and Output: 04/12/18 04/12/18 06:59 18:59 Intake Total 200 650 Balance 200 650 - Medications Medications: Current Medications Acetaminophen (Tylenol 325mg Tab) 650 mg PO Q6 PRN PRN Reason: Fever >100.4 F Last Admin: 04/11/18 13:27 Dose: 650 mg Acyclovir (Zovirax) 800 mg PO Q8H [facility] PRN Reason: Protocol Stop: 04/17/18 16:01 Last Admin: 04/12/18 16:52 Dose: 800 mg Amlodipine Besylate (Norvasc) 10 mg PO DAILY [facility] Last Admin: 04/12/18 09:01 Dose: 10 mg Carvedilol (Coreg) 6.25 mg PO BID [facility] Last Admin: 04/12/18 16:59 Dose: 6.25 mg Clonidine HCl (Catapres) 0.2 mg PO TID [facility] Last Admin: 04/12/18 16:59 Dose: 0.2 mg Hydralazine HCl (Apresoline) 25 mg PO Q8 [facility] Last Admin: 04/12/18 13:44 Dose: 25 mg Hydroxyzine HCl (Atarax) 25 mg PO Q6 PRN PRN Reason: Agitation Gentamicin Sulfate 80 mg/ (Sodium Chloride) 102 mls @ 100 mls/hr IVPB TTS [facility] PRN Reason: Protocol Last Admin: 04/11/18 18:07 Dose: 100 mls/hr Nafcillin Sodium 2 gm/ Sodium (Chloride) 250 mls @ 250 mls/hr IVPB Q6H [facility] PRN Reason: Protocol Last Admin: 04/12/18 13:58 Dose: 250 mls/hr Metoclopramide HCl (Reglan) 10 mg IVP Q6H PRN PRN Reason: Nausea/Vomiting Last Admin: 04/05/18 22:16 Dose: 10 mg Ondansetron HCl (Zofran Inj) 4 mg IVP Q4H PRN PRN Reason: Nausea/Vomiting Last Admin: 04/11/18 19:02 Dose: 4 mg Saccharomyces Boulardii (Florastor) 250 mg PO BID [facility] Last Admin: 04/12/18 16:59 Dose: 250 mg Trazodone HCl (Desyrel) 50 mg PO HS [facility] Last Admin: 04/11/18 21:54 Dose: Not Given - Labs Labs: 04/12/18 08:02 04/12/18 08:02 PT 13.4 SECONDS (9.7-12.2) H 04/04/18 06:59 INR 1.2 04/04/18 06:59 APTT 32 SECONDS (21-34) 04/04/18 06:59 Attending/Attestation - Attestation I have personally seen and examined this patient.: Yes I have fully participated in the care of the patient.: Yes I have reviewed all pertinent clinical information, including history, physical exam and plan: Yes Notes (Text): 04/12/18 18:52 Patient was seen and examined with resident Dr. Castro Exam, assessment and plan were gone over with Dr. Castro Surgery Dr. Huffman not able to change PermACath and reinsert new one Reached to Dr. Joseph and awaiting call back If Dr. Joseph can not remove PermACath and place new one then we will have to await Dr. Quach's return. Administration of Platelets followed by Desmopressin will have to be coordinated as to when PermACath removal and replacement is done as there is a narrow window of opportunity once platelets do become elevated to allow procedures to be performed as in the past the platelet level drops quickly. Kyle Valle D.O.
[2018-04-12 08:09] LABS: BASO # 0.1 K/uL (0.0-0.2); EOS # 0.5 K/uL (0.0-0.7); HEMOGLOBIN 11.5 g/dL (12.0-18.0); LYMPH # 3.6 K/uL (1.0-4.3); MONO % 11.1 % (0.0-10.0); NEUT # 4.1 K/uL (1.8-7.0); WHITE BLOOD COUNT 9.3 K/uL (4.8-10.8)
[2018-04-12 08:21] LABS: BASO % 0.7 % (0.0-2.0); LYMPH % 38.8 % (20.0-40.0); MEAN CELL VOLUME 89.8 fL (80.0-94.0); MEAN CORPUSCULAR HEMOGLOBIN 30.4 pg (27.0-31.0); MEAN CORPUSCULAR HGB CONC 33.9 g/dL (33.0-37.0); MEAN PLATELET VOLUME 11.1 fL (7.2-11.7); NEUT % 44.4 % (50.0-75.0); NRBC % 0.2 % (0.0-2.0); RBC 3.79 Mil/uL (4.40-5.90); RED CELL DISTRIBUTION WIDTH 15.2 % (11.5-14.5)
[2018-04-12 08:33] LABS: ALB/GLOB RATIO 1.1 (1.0-2.1); ALBUMIN 3.5 g/dL (3.5-5.0); CALCIUM 9.4 mg/dl (8.6-10.4)
[2018-04-12] MEDS: Saccharomyces Boulardi 250 mg Cap PO SCH ×2 (09:01→16:59)
--- NOTE | 2018-04-12 11:39 | CP.PCM.PN ---
Subjective - Date & Time of Evaluation Date of Evaluation: 04/12/18 Time of Evaluation: 11:36 - Subjective Subjective: seen and examined no events stable bp afebrile no complaints no n/v/d/f/c/sob/dizziness Objective - Vital Signs/Intake and Output Vital Signs (last 24 hours): Temp Pulse Resp BP Pulse Ox 98.3 F 69 20 143/94 H 98 04/12/18 07:30 04/12/18 08:50 04/12/18 07:30 04/12/18 07:30 04/12/18 07:30 Intake and Output: 04/12/18 04/12/18 06:59 18:59 Intake Total 200 Balance 200 - Medications Medications: Current Medications Acetaminophen (Tylenol 325mg Tab) 650 mg PO Q6 PRN PRN Reason: Fever >100.4 F Last Admin: 04/11/18 13:27 Dose: 650 mg Acyclovir (Zovirax) 800 mg PO Q8H [facility] PRN Reason: Protocol Stop: 04/17/18 16:01 Last Admin: 04/12/18 08:59 Dose: 800 mg Amlodipine Besylate (Norvasc) 10 mg PO DAILY [facility] Last Admin: 04/12/18 09:01 Dose: 10 mg Carvedilol (Coreg) 6.25 mg PO BID [facility] Last Admin: 04/12/18 09:01 Dose: 6.25 mg Clonidine HCl (Catapres) 0.2 mg PO TID [facility] Last Admin: 04/12/18 09:01 Dose: 0.2 mg Hydralazine HCl (Apresoline) 25 mg PO Q8 [facility] Last Admin: 04/12/18 05:09 Dose: 25 mg Hydroxyzine HCl (Atarax) 25 mg PO Q6 PRN PRN Reason: Agitation Gentamicin Sulfate 80 mg/ (Sodium Chloride) 102 mls @ 100 mls/hr IVPB TTS [facility] PRN Reason: Protocol Last Admin: 04/11/18 18:07 Dose: 100 mls/hr Nafcillin Sodium 2 gm/ Sodium (Chloride) 250 mls @ 250 mls/hr IVPB Q6H [facility] PRN Reason: Protocol Last Admin: 04/12/18 08:59 Dose: 250 mls/hr Metoclopramide HCl (Reglan) 10 mg IVP Q6H PRN PRN Reason: Nausea/Vomiting Last Admin: 04/05/18 22:16 Dose: 10 mg Ondansetron HCl (Zofran Inj) 4 mg IVP Q4H PRN PRN Reason: Nausea/Vomiting Last Admin: 04/11/18 19:02 Dose: 4 mg Saccharomyces Boulardii (Florastor) 250 mg PO BID [facility] Last Admin: 04/12/18 09:01 Dose: 250 mg Trazodone HCl (Desyrel) 50 mg PO HS [facility] Last Admin: 04/11/18 21:54 Dose: Not Given - Labs Labs: 04/12/18 08:02 04/12/18 08:02 PT 13.4 SECONDS (9.7-12.2) H 04/04/18 06:59 INR 1.2 04/04/18 06:59 APTT 32 SECONDS (21-34) 04/04/18 06:59 - Constitutional Appears: No Acute Distress, Chronically Ill - Head Exam Head Exam: NORMAL INSPECTION, NORMOCEPHALIC - Eye Exam Eye Exam: Normal appearance, PERRL - ENT Exam ENT Exam: Mucous Membranes Moist, Normal Exam - Neck Exam Neck Exam: Full ROM, Normal Inspection - Respiratory Exam Respiratory Exam: Clear to Ausculation Bilateral, NORMAL BREATHING PATTERN - Cardiovascular Exam Cardiovascular Exam: REGULAR RHYTHM, RRR - GI/Abdominal Exam GI & Abdominal Exam: Distended, Soft, Normal Bowel Sounds - Extremities Exam Extremities Exam: Full ROM, Normal Inspection - Neurological Exam Neurological Exam: Alert, Awake, Oriented x3 - Psychiatric Exam Psychiatric exam: Normal Affect, Normal Mood Assessment and Plan (1) ESRD (end stage renal disease) on dialysis Status: Acute (2) Fever Status: Acute (3) Hyperkalemia Status: Acute (4) Thrombocytopenia Status: Acute (5) Leukocytosis Status: Acute - Assessment and Plan (Free Text) Assessment: maintain hd mwf catheter change acyclovir dose discussed w/ pharmacy-maintain
--- NOTE | 2018-04-12 13:06 | CP.PCM.PN ---
Subjective - Date & Time of Evaluation Date of Evaluation: 04/12/18 Time of Evaluation: 13:00 - Subjective Subjective: No complaints. Objective - Vital Signs/Intake and Output Vital Signs (last 24 hours): Temp Pulse Resp BP Pulse Ox 98.3 F 69 20 143/94 H 98 04/12/18 07:30 04/12/18 08:50 04/12/18 07:30 04/12/18 07:30 04/12/18 07:30 Intake and Output: 04/12/18 04/12/18 06:59 18:59 Intake Total 200 Balance 200 - Medications Medications: Current Medications Acetaminophen (Tylenol 325mg Tab) 650 mg PO Q6 PRN PRN Reason: Fever >100.4 F Last Admin: 04/11/18 13:27 Dose: 650 mg Acyclovir (Zovirax) 800 mg PO Q8H [facility] PRN Reason: Protocol Stop: 04/17/18 16:01 Last Admin: 04/12/18 08:59 Dose: 800 mg Amlodipine Besylate (Norvasc) 10 mg PO DAILY [facility] Last Admin: 04/12/18 09:01 Dose: 10 mg Carvedilol (Coreg) 6.25 mg PO BID [facility] Last Admin: 04/12/18 09:01 Dose: 6.25 mg Clonidine HCl (Catapres) 0.2 mg PO TID [facility] Last Admin: 04/12/18 09:01 Dose: 0.2 mg Hydralazine HCl (Apresoline) 25 mg PO Q8 [facility] Last Admin: 04/12/18 05:09 Dose: 25 mg Hydroxyzine HCl (Atarax) 25 mg PO Q6 PRN PRN Reason: Agitation Gentamicin Sulfate 80 mg/ (Sodium Chloride) 102 mls @ 100 mls/hr IVPB TTS [facility] PRN Reason: Protocol Last Admin: 04/11/18 18:07 Dose: 100 mls/hr Nafcillin Sodium 2 gm/ Sodium (Chloride) 250 mls @ 250 mls/hr IVPB Q6H [facility] PRN Reason: Protocol Last Admin: 04/12/18 08:59 Dose: 250 mls/hr Metoclopramide HCl (Reglan) 10 mg IVP Q6H PRN PRN Reason: Nausea/Vomiting Last Admin: 04/05/18 22:16 Dose: 10 mg Ondansetron HCl (Zofran Inj) 4 mg IVP Q4H PRN PRN Reason: Nausea/Vomiting Last Admin: 04/11/18 19:02 Dose: 4 mg Saccharomyces Boulardii (Florastor) 250 mg PO BID [facility] Last Admin: 04/12/18 09:01 Dose: 250 mg Trazodone HCl (Desyrel) 50 mg PO HS [facility] Last Admin: 04/11/18 21:54 Dose: Not Given - Labs Labs: 04/12/18 08:02 04/12/18 08:02 PT 13.4 SECONDS (9.7-12.2) H 04/04/18 06:59 INR 1.2 04/04/18 06:59 APTT 32 SECONDS (21-34) 04/04/18 06:59 - Head Exam Head Exam: ATRAUMATIC - Eye Exam Eye Exam: Normal appearance - ENT Exam ENT Exam: Mucous Membranes Dry - Respiratory Exam Respiratory Exam: NORMAL BREATHING PATTERN - Cardiovascular Exam Cardiovascular Exam: +S1, +S2 - GI/Abdominal Exam GI & Abdominal Exam: Normal Bowel Sounds Assessment and Plan (1) Thrombocytopenia Assessment & Plan: atypical HUS on outpatient eculizumab for n acetylcysteine cysteine treatment per ICU transfusion support and desmopressin prior to catheter exchange Status: Chronic (2) Anemia Assessment & Plan: renal disease transfusion support and EPO Status: Acute (3) Atypical hemolytic uremic syndrome Assessment & Plan: outpatient eculizumab Status: Acute
--- NOTE | 2018-04-12 15:41 | CP.PCM.CON ---
History of Present Illness - History of Present Illness History of Present Illness: Surgery- Dr. Joseph Reason For consult: permacath removal and insertion of new one 32M with ESRD, DM, right sided hearing impairment and atypical HUS who is presenting with fevers, abdominal pain, nausea, vomiting dizziness, chest pain and diffuse myalgias. He reports that Whenever he gets dialysis he feels sickly after however for the past two weeks he reports discharge from the skin surrounding his permacath. Pt diagnosed w/ bacteremia 2/2 infected port. Patient received IV Abx throughout course of hospital stay. Last Blood cultures on 04/07/18 negative. 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, PD catheter placement and removal ALL: ASA Social: Denies tobacco, etoh, recreational drug use FH: non-contributory Review of Systems - Review of Systems All systems: reviewed and no additional remarkable complaints except - Constitutional Constitutional: As Per HPI Past Patient History - Infectious Disease Hx of Infectious Diseases: None - Past Medical History & Family History Past Medical History?: Yes - Past Social History Smoking Status: Never Smoked - CARDIAC Hx Hypertension: Yes - PULMONARY Hx Respiratory Disorders: No - NEUROLOGICAL Hx Neurological Disorder: No - HEENT Hx HEENT Problems: Yes Hx Deafness: (LEFT HEARING AID) Other/Comment: HEARING IMPAIRED - RENAL Hx Chronic Kidney Disease: Yes - ENDOCRINE/METABOLIC Hx Endocrine Disorders: No - HEMATOLOGICAL/ONCOLOGICAL Hx Blood Disorders: Yes Other/Comment: Thrombocytopenia - INTEGUMENTARY Hx Dermatological Problems: No - MUSCULOSKELETAL/RHEUMATOLOGICAL Hx Musculoskeletal Disorders: No - GASTROINTESTINAL Hx Gastrointestinal Disorders: No - GENITOURINARY/GYNECOLOGICAL Hx Genitourinary Disorders: No - PSYCHIATRIC Hx Substance Use: No - SURGICAL HISTORY Hx Surgeries: Yes Other/Comment: peritoneal dialysis catheter 05/2017. right chest wall permacath - ANESTHESIA Hx Anesthesia: Yes Hx Anesthesia Reactions: No Hx Malignant Hyperthermia: No Meds Home Medications: Home Medication List Medication Instructions Recorded Confirmed Type Acyclovir [Zovirax] 800 mg PO Q8H #14 tab 04/13/18 Rx Azithromycin 500 mg PO DAILY #6 tablet 04/13/18 Rx Carvedilol [Coreg] 6.25 mg PO BID #60 tab 04/13/18 Rx Saccharomyces Boulardi [Florastor] 250 mg PO BID 36 Days #72 cap 04/13/18 Rx amLODIPine [Norvasc] 10 mg PO DAILY #30 tab 04/13/18 Rx cloNIDine [Catapres] 0.2 mg PO TID #90 tab 04/13/18 Rx hydrALAZINE [Apresoline] 25 mg PO Q8 #90 tab 04/13/18 Rx Allergies/Adverse Reactions: Allergies Allergy/AdvReac Type Severity Reaction Status Date / Time aspirin AdvReac ANAPHYLAXIS Verified 04/04/18 06:28 - Medications Medications: Current Medications Acetaminophen (Tylenol 325mg Tab) 650 mg PO Q6 PRN PRN Reason: Fever >100.4 F Last Admin: 04/11/18 13:27 Dose: 650 mg Acyclovir (Zovirax) 800 mg PO Q8H [facility] PRN Reason: Protocol Stop: 04/17/18 16:01 Last Admin: 04/12/18 08:59 Dose: 800 mg Amlodipine Besylate (Norvasc) 10 mg PO DAILY [facility] Last Admin: 04/12/18 09:01 Dose: 10 mg Carvedilol (Coreg) 6.25 mg PO BID [facility] Last Admin: 04/12/18 09:01 Dose: 6.25 mg Clonidine HCl (Catapres) 0.2 mg PO TID [facility] Last Admin: 04/12/18 13:44 Dose: 0.2 mg Hydralazine HCl (Apresoline) 25 mg PO Q8 [facility] Last Admin: 04/12/18 13:44 Dose: 25 mg Hydroxyzine HCl (Atarax) 25 mg PO Q6 PRN PRN Reason: Agitation Gentamicin Sulfate 80 mg/ (Sodium Chloride) 102 mls @ 100 mls/hr IVPB TTS [facility] PRN Reason: Protocol Last Admin: 04/11/18 18:07 Dose: 100 mls/hr Nafcillin Sodium 2 gm/ Sodium (Chloride) 250 mls @ 250 mls/hr IVPB Q6H [facility] PRN Reason: Protocol Last Admin: 04/12/18 08:59 Dose: 250 mls/hr Metoclopramide HCl (Reglan) 10 mg IVP Q6H PRN PRN Reason: Nausea/Vomiting Last Admin: 04/05/18 22:16 Dose: 10 mg Ondansetron HCl (Zofran Inj) 4 mg IVP Q4H PRN PRN Reason: Nausea/Vomiting Last Admin: 04/11/18 19:02 Dose: 4 mg Saccharomyces Boulardii (Florastor) 250 mg PO BID [facility] Last Admin: 04/12/18 09:01 Dose: 250 mg Trazodone HCl (Desyrel) 50 mg PO HS [facility] Last Admin: 04/11/18 21:54 Dose: Not Given Physical Exam - Constitutional Appears: Non-toxic, No Acute Distress - Head Exam Head Exam: ATRAUMATIC - Eye Exam Eye Exam: EOMI - ENT Exam Additional comments: wearing hearing aids to communicate - Respiratory Exam Respiratory Exam: NORMAL BREATHING PATTERN. absent: Accessory Muscle Use, Respiratory Distress - Cardiovascular Exam Cardiovascular Exam: +S1, +S2. absent: Bradycardia, Tachycardia - GI/Abdominal Exam GI & Abdominal Exam: Soft. absent: Distended, Guarding, Hernia, Rigid, Tenderness - Extremities Exam Extremities exam: Negative for: calf tenderness Additional comments: site of catheter, clean, intact w/ some dried discharge - Neurological Exam Neurological exam: Alert, Oriented x3 Results - Vital Signs Recent Vital Signs: Last Vital Signs Temp 98.3 F 04/12/18 07:30 Pulse 69 04/12/18 08:50 Resp 20 04/12/18 07:30 BP 143/94 H 04/12/18 07:30 Pulse Ox 98 04/12/18 07:30 - Labs Result Diagrams: 04/13/18 07:32 04/13/18 07:32 Labs: Laboratory Results - last 24 hr 04/11/18 04/11/18 04/12/18 15:40 15:40 08:02 WBC 11.0 H 9.3 RBC 3.62 L 3.79 L Hgb 10.9 L 11.5 L Hct 33.1 L 34.1 L MCV 91.5 89.8 MCH 30.1 30.4 MCHC 32.8 L 33.9 RDW 15.9 H 15.2 H Plt Count 11 L* D 9 L* MPV 9.9 11.1 Neut % (Auto) 49.7 L 44.4 L Lymph % (Auto) 30.1 38.8 Crenshaw % (Auto) 11.8 H 11.1 H Eos % (Auto) 7.6 H 5.0 H Baso % (Auto) 0.8 0.7 Neut # (Auto) 5.5 4.1 Lymph # (Auto) 3.3 3.6 Crenshaw # (Auto) 1.3 H 1.0 H Eos # (Auto) 0.8 H 0.5 Baso # (Auto) 0.1 0.1 Differential Comment Sodium 141 Potassium 3.9 Chloride 107 Carbon Dioxide 20 L Anion Gap 18 BUN 46 H Creatinine 5.9 H Est GFR ( Amer) 13 Est GFR (Non-Af Amer) 11 Random Glucose 82 Calcium 9.0 Phosphorus Magnesium Total Bilirubin 1.7 H AST 26 ALT 47 Alkaline Phosphatase 105 Total Protein 6.2 L Albumin 3.2 L Globulin 3.0 Albumin/Globulin Ratio 1.1 04/12/18 08:02 WBC RBC Hgb Hct MCV MCH MCHC RDW Plt Count MPV Neut % (Auto) Lymph % (Auto) Crenshaw % (Auto) Eos % (Auto) Baso % (Auto) Neut # (Auto) Lymph # (Auto) Crenshaw # (Auto) Eos # (Auto) Baso # (Auto) Differential Comment Sodium 141 Potassium 3.8 Chloride 101 Carbon Dioxide 25 Anion Gap 19 BUN 29 H Creatinine 4.9 H Est GFR ( Amer) 17 Est GFR (Non-Af Amer) 14 Random Glucose 78 Calcium 9.4 Phosphorus 4.6 H Magnesium 2.1 Total Bilirubin 1.9 H AST 48 ALT 62 Alkaline Phosphatase 109 Total Protein 6.6 Albumin 3.5 Globulin 3.1 Albumin/Globulin Ratio 1.1 Assessment & Plan - Assessment and Plan (Free Text) Assessment: 32M w/ ESRD on HD w/ bacteremia last set of blood cultures on 04/07 negative Plan: - need for new dialysis access - medically optimize - further recs per Dr. Jake Fuentes PGY1
[2018-04-12 23:38] VITALS: O2SAT 97
--- NOTE | 2018-04-13 06:43 | CP.PCM.PN ---
Subjective - Date & Time of Evaluation Date of Evaluation: 04/13/18 Time of Evaluation: 06:43 - Subjective Subjective: Medicine progress note for Dr. Shi Valle Objective - Vital Signs/Intake and Output Vital Signs (last 24 hours): Temp Pulse Resp BP Pulse Ox 97.9 F 71 20 129/87 97 04/12/18 23:37 04/13/18 01:00 04/12/18 23:37 04/12/18 23:37 04/12/18 23:37 Intake and Output: 04/12/18 04/13/18 18:59 06:59 Intake Total 650 Balance 650 - Medications Medications: Current Medications Acetaminophen (Tylenol 325mg Tab) 650 mg PO Q6 PRN PRN Reason: Fever >100.4 F Last Admin: 04/11/18 13:27 Dose: 650 mg Acyclovir (Zovirax) 800 mg PO Q8H [facility] PRN Reason: Protocol Stop: 04/17/18 16:01 Last Admin: 04/12/18 23:31 Dose: 800 mg Amlodipine Besylate (Norvasc) 10 mg PO DAILY [facility] Last Admin: 04/12/18 09:01 Dose: 10 mg Carvedilol (Coreg) 6.25 mg PO BID [facility] Last Admin: 04/12/18 16:59 Dose: 6.25 mg Clonidine HCl (Catapres) 0.2 mg PO TID [facility] Last Admin: 04/12/18 16:59 Dose: 0.2 mg Hydralazine HCl (Apresoline) 25 mg PO Q8 [facility] Last Admin: 04/13/18 05:34 Dose: 25 mg Hydroxyzine HCl (Atarax) 25 mg PO Q6 PRN PRN Reason: Agitation Gentamicin Sulfate 80 mg/ (Sodium Chloride) 102 mls @ 100 mls/hr IVPB TTS [facility] PRN Reason: Protocol Last Admin: 04/11/18 18:07 Dose: 100 mls/hr Nafcillin Sodium 2 gm/ Sodium (Chloride) 250 mls @ 250 mls/hr IVPB Q6H [place] PRN Reason: Protocol Last Admin: 04/13/18 02:10 Dose: 250 mls/hr Metoclopramide HCl (Reglan) 10 mg IVP Q6H PRN PRN Reason: Nausea/Vomiting Last Admin: 04/05/18 22:16 Dose: 10 mg Ondansetron HCl (Zofran Inj) 4 mg IVP Q4H PRN PRN Reason: Nausea/Vomiting Last Admin: 04/11/18 19:02 Dose: 4 mg Saccharomyces Boulardii (Florastor) 250 mg PO BID [facility] Last Admin: 04/12/18 16:59 Dose: 250 mg Trazodone HCl (Desyrel) 50 mg PO HS [facility] Last Admin: 04/12/18 21:18 Dose: 50 mg - Labs Labs: 04/12/18 08:02 04/12/18 08:02 PT 13.4 SECONDS (9.7-12.2) H 04/04/18 06:59 INR 1.2 04/04/18 06:59 APTT 32 SECONDS (21-34) 04/04/18 06:59 - Additional Findings Additional findings: - Constitutional Appears: No Acute Distress - Head Exam Head Exam: ATRAUMATIC, NORMAL INSPECTION - Eye Exam Eye Exam: EOMI, Normal appearance - ENT Exam ENT Exam: Mucous Membranes Moist - Respiratory Exam Respiratory Exam: NORMAL BREATHING PATTERN. absent: Rales, Rhonchi, Wheezes, Respiratory Distress - Cardiovascular Exam Cardiovascular Exam: REGULAR RHYTHM, +S1, +S2. absent: Bradycardia, Tachycardia - GI/Abdominal Exam GI & Abdominal Exam: Soft, Normal Bowel Sounds. absent: Distended, Firm, Tenderness Additional comments: well healed scar s/p previous peritoneal dialysis - Extremities Exam Extremities Exam: Normal Inspection. 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 (6) Hypertension Status: Chronic (7) Headache Status: Acute (8) Prophylactic measure Status: Acute - Assessment and Plan (Free Text) Plan: (1) Sepsis MSSA Bacteremia Infected Dialysis Catheter Assessment and Plan: * Sepsis likely secondary to catheter infection and bactermia * Criteria: Febrile (103F), Tachycardic, leukocytosis (WBC 25.1), elevated lactate * White count improving but infected dialysis catheter remains; issue remains his thrombocytopenia and his increased of bleeding risk as well as when surgery will removed dialysis catheter * In ED, patient was given Zosyn 2.25gm and Vancomycin 1gm IV. * Lactate increased from 1.6 at admission to 3.2--> lactate: 1.5 * Blood culture (04/04/18): MSSA * Blood culture (04/06/18): no growth after 4 days * Blood culture (04/07/18): no growth after 3 days * UA: negative for infection; 2+ protein; urine culture (03/31): no growth * Influenza- negative * Chest xray: no active pulmonary disease * Tylenol 650mg PO Q6H >100.4F * ID consulted, Dr. Gilmore. Help appreciated * Gentamicin 80mg IVPB TThS (active since 04/06/18) * Vancomycin 1 gram IVPB TThS (Active since 04/06/18) * Naficillin 2mg IV Q6H (active since 04/07/18) * Surgery consulted, Dr. Quach. Help appreciated * ICU consulted. Patient accepted and transferred to ICU Bed 15 on 04/04/18. Further management as per ICU team. Transferred back on 04/06/18 following syncopal episode during dialysis. Awaiting when surgery will take out dialysis catheter. Dr. Quach is away for holiday and patient's platelets lower. Medications: * Reglan 10mg IV Q6h PRN for nausea/vomiting * Tylenol 650mg PO Q6h PRN for fevers/pain * Gentamicin 80mg IVPB TThS (active since 04/06/18) * Vancomycin 1 gram IVPB TThS (Active since 04/06/18) * Naficillin 2mg IV Q6H (Active since 04/07/18) (2) ESRD (end stage renal disease) on dialysis Assessment and Plan: * Dialysis schedule: TTS * Nephrology consulted, Dr. Villasenor. Help appreciated * Sepsis likely secondary to catheter infection. Will likely be removed and replaced * We will need to follow-up with surgery to determine when to replace dialysis catheter. Patient has refuses peritoneal dialysis. * f/u surgery and ICU in regards to removal of dialysis catheter and possible necessary platelet transfusion; Dr. Quach is away * Dr. Huffman consulted on 04/12- unavailable at this time. * Reconsulting- Dr. Ortega consulted. (3) Hyperkalemia-->normalized Assessment and Plan: * Secondary to ESRD * EKG: sinus tachycardia; no ST or T wave changes. * Monitor (4) Severe thrombocytopenia Assessment and Plan: * Hem/Onc consulted, Dr. Benites. 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 * Heme/Onc consulted, Dr. Benites. Help appreciated. * Renal biopsy confirmed in prior hospitalization noted in the EMR (6) Hypertension Assessment and Plan: * Improving * Clonidine 0.2 mg PO BID * Norvasc 10 mg PO daily * Coreg 6.25 mg PO BID * Hydralazine 25mg PO Q8 (added 04/11/18) * Continue to monitor (7) Headache Assessment and Plan: * Head CT (04/04/18): no mass, hemorrhage, or acute infarct identified. mild cerebral atrophy. * Repeat Head CT (04/07/18): unremarkable * Tylenol PRN (8) Shingles Assessment and Plan: * Acyclovir 800 mg Q8h 5x/day through 04/17/18 (9) Anemia of Chronic Disease Secondary to ESRD Assessment and Plan: * Monitor HgB/Hct (10) Prophylactic measure Assessment and Plan: * DVT: No chemical anticoagulation due to severe thrombocytopenia * NO H2 alycia or PPI due to possibly worsening of thrombocytopenia * Palliative consult: goals of care-->help appreciated
[2018-04-13 07:51] VITALS: BP 155/96; TEMP 97.8
[2018-04-13 08:08] LABS: BASO # 0.1 K/uL (0.0-0.2); BASO % 0.6 % (0.0-2.0); EOS # 0.4 K/uL (0.0-0.7); EOS % 4.8 % (0.0-4.0); HEMOGLOBIN 11.4 g/dL (12.0-18.0); LYMPH # 3.3 K/uL (1.0-4.3); MEAN CELL VOLUME 90.8 fL (80.0-94.0); MEAN CORPUSCULAR HEMOGLOBIN 30.7 pg (27.0-31.0); MEAN CORPUSCULAR HGB CONC 33.8 g/dL (33.0-37.0); MEAN PLATELET VOLUME 12.6 fL (7.2-11.7); MONO # 1.4 K/uL (0.0-0.8); MONO % 16.3 % (0.0-10.0); NEUT # 3.5 K/uL (1.8-7.0); NEUT % 40.3 % (50.0-75.0); NRBC % 0.1 % (0.0-2.0); RBC 3.73 Mil/uL (4.40-5.90); RED CELL DISTRIBUTION WIDTH 15.6 % (11.5-14.5); WHITE BLOOD COUNT 8.8 K/uL (4.8-10.8)
[2018-04-13 08:20] LABS: ALB/GLOB RATIO 1.1 (1.0-2.1); ALBUMIN 3.3 g/dL (3.5-5.0); CALCIUM 9.1 mg/dl (8.6-10.4)
[2018-04-13 08:54] VITALS: PULSE 70
--- NOTE | 2018-04-13 10:21 | CP.PCM.DIS ---
Provider - Provider Date of Admission: 04/04/18 10:19 Attending physician: Kyle Valle MD Primary care physician: [facility] Consults: Nephrology: Dr. Villasenor Surgery: Dr. Quach, Dr. Huffman, Dr. Joseph Heme-Onc: Dr. Benites ICU: Dr. Sutton ID: Dr. Gilmore Palliative Care: David Psychiatry: Dr. 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 (6) Hypertension Status: Chronic (7) Headache Status: Acute (8) Prophylactic measure Status: Acute Hospital Course - Lab Results Lab Results: Micro Results 04/07/18 15:30 Blood-Venous Blood Culture - Final NO GROWTH AFTER 5 DAYS 04/07/18 15:30 Blood-Venous Gram Stain - Final TEST NOT PERFORMED 04/07/18 16:30 Blood-Venous Blood Culture - Final NO GROWTH AFTER 5 DAYS 04/07/18 16:30 Blood-Venous Gram Stain - Final TEST NOT PERFORMED 04/06/18 21:30 Blood-Venous Blood Culture - Final NO GROWTH AFTER 5 DAYS 04/06/18 21:30 Blood-Venous Gram Stain - Final TEST NOT PERFORMED 04/06/18 21:00 Blood-Venous Blood Culture - Final NO GROWTH AFTER 5 DAYS 04/06/18 13:40 Naris MRSA Culture - Final MRSA NOT DETECTED 04/04/18 13:31 Blood Blood Culture - Final Staphylococcus Aureus 04/04/18 13:31 Blood Gram Stain - Final 04/04/18 13:31 Blood S.aureus & Coag-Neg Staph PNA FISH - Final 04/04/18 13:31 Blood Blood Culture - Final Staphylococcus Aureus 04/04/18 13:31 Blood Gram Stain - Final 04/04/18 16:20 Naris MRSA Culture (Admit) - Final MRSA NOT DETECTED 04/04/18 12:11 Urine,Turner Urine Culture - Final No Growth (<1,000 CFU/ML) Most Recent Lab Values WBC 8.8 K/uL (4.8-10.8) 04/13/18 07:32 RBC 3.73 Mil/uL (4.40-5.90) L 04/13/18 07:32 Hgb 11.4 g/dL (12.0-18.0) L 04/13/18 07:32 Hct 33.8 % (35.0-51.0) L 04/13/18 07:32 MCV 90.8 fL (80.0-94.0) 04/13/18 07:32 MCH 30.7 pg (27.0-31.0) 04/13/18 07:32 MCHC 33.8 g/dL (33.0-37.0) 04/13/18 07:32 RDW 15.6 % (11.5-14.5) H 04/13/18 07:32 Plt Count 7 K/uL (130-400) L* 04/13/18 07:32 MPV 12.6 fL (7.2-11.7) H 04/13/18 07:32 Neut % (Auto) 40.3 % (50.0-75.0) L 04/13/18 07:32 Lymph % (Auto) 38.0 % (20.0-40.0) 04/13/18 07:32 [place] % (Auto) 16.3 % (0.0-10.0) H 04/13/18 07:32 Eos % (Auto) 4.8 % (0.0-4.0) H 04/13/18 07:32 Baso % (Auto) 0.6 % (0.0-2.0) 04/13/18 07:32 Neut # (Auto) 3.5 K/uL (1.8-7.0) 04/13/18 07:32 Lymph # (Auto) 3.3 K/uL (1.0-4.3) 04/13/18 07:32 [place] # (Auto) 1.4 K/uL (0.0-0.8) H 04/13/18 07:32 Eos # (Auto) 0.4 K/uL (0.0-0.7) 04/13/18 07:32 Baso # (Auto) 0.1 K/uL (0.0-0.2) 04/13/18 07:32 Neutrophils % (Manual) 66 % (50-75) 04/09/18 06:22 Band Neutrophils % 4 % (0-2) H 04/04/18 16:20 Lymphocytes % (Manual) 19 % (20-40) L 04/09/18 06:22 Reactive Lymphs % 2 % (0-0) H 04/08/18 21:45 Monocytes % (Manual) 14 % (0-10) H 04/09/18 06:22 Eosinophils % (Manual) 1 % (0-4) 04/04/18 06:59 Basophils % (Manual) 1 % (0-2) 04/09/18 06:22 Metamyelocytes % 1 % (0-0) H 04/04/18 16:20 Nucleated RBC % 1 % (0-0) H 04/08/18 21:45 Differential Comment 04/13/18 07:32 Toxic Granulation Present 04/09/18 06:22 Platelet Estimate Markedly decreased (NORMAL) L 04/09/18 06:22 Large Platelets Present 04/09/18 06:22 Giant Platelets Present 04/09/18 06:22 Polychromasia Slight 04/09/18 06:22 Hypochromasia (manual) Slight 04/09/18 06:22 Poikilocytosis (manual Slight 04/09/18 06:22 Anisocytosis (manual) Slight 04/09/18 06:22 Microcytosis (manual) Slight 04/08/18 21:45 Macrocytosis (manual) Slight 04/08/18 21:45 Ovalocytes Slight 04/09/18 06:22 Alicia Cells Slight 04/05/18 06:01 PT 13.4 SECONDS (9.7-12.2) H 04/04/18 06:59 INR 1.2 04/04/18 06:59 APTT 32 SECONDS (21-34) 04/04/18 06:59 [id number] Inhibitor 126 % Activity (68-163) 04/07/18 16:36 [id number] Inhibit Titer (()) 04/07/18 16:36 pO2 31 mm/Hg (30-55) 04/04/18 06:50 VBG pH 7.44 (7.32-7.43) H 04/04/18 06:50 VBG pCO2 24 mmHg (40-60) L 04/04/18 06:50 VBG HCO3 19.3 mmol/L 04/04/18 06:50 VBG Total CO2 17.0 mmol/L (22-28) L 04/04/18 06:50 VBG O2 Sat (Calc) 71.1 % (40-65) H 04/04/18 06:50 VBG Base Excess -6.0 mmol/L (0.0-2.0) L 04/04/18 06:50 VBG Potassium 5.2 mmol/L (3.6-5.2) 04/04/18 06:50 Sodium 139.0 mmol/l (132-148) 04/04/18 06:50 Chloride 112.0 mmol/L (98-107) H 04/04/18 06:50 Glucose 87 mg/dl (75-110) 04/04/18 06:50 Lactate 1.6 mmol/L (0.7-2.1) 04/04/18 06:50 Sodium 140 mmol/L (132-148) 04/13/18 07:32 Potassium 4.0 mmol/L (3.6-5.2) 04/13/18 07:32 Chloride 106 mmol/L (98-107) 04/13/18 07:32 Carbon Dioxide 22 mmol/L (22-30) 04/13/18 07:32 Anion Gap 16 (10-20) 04/13/18 07:32 BUN 37 mg/dL (9-20) H 04/13/18 07:32 Creatinine 6.0 mg/dL (0.8-1.5) H 04/13/18 07:32 Est GFR ( Amer) 13 04/13/18 07:32 Est GFR (Non-Af Amer) 11 04/13/18 07:32 Random Glucose 89 mg/dL (75-110) 04/13/18 07:32 Lactic Acid 1.5 mmol/L (0.7-2.1) 04/04/18 16:20 Calcium 9.1 mg/dl (8.6-10.4) 04/13/18 07:32 Phosphorus 4.6 mg/dL (2.5-4.5) H 04/13/18 07:32 Magnesium 2.3 mg/dL (1.6-2.3) 04/13/18 07:32 Total Bilirubin 1.7 mg/dL (0.2-1.3) H 04/13/18 07:32 AST 41 U/L (17-59) 04/13/18 07:32 ALT 63 U/L (21-72) 04/13/18 07:32 Alkaline Phosphatase 111 U/L (38-126) 04/13/18 07:32 Total Protein 6.3 g/dL (6.3-8.3) 04/13/18 07:32 Albumin 3.3 g/dL (3.5-5.0) L 04/13/18 07:32 Globulin 3.0 gm/dL (2.2-3.9) 04/13/18 07:32 Albumin/Globulin Ratio 1.1 (1.0-2.1) 04/13/18 07:32 Venous Blood Potassium 5.2 mmol/L (3.6-5.2) 04/04/18 06:50 Urine Color Straw (YELLOW) 04/04/18 12:11 Urine Clarity Clear (Clear) 04/04/18 12:11 Urine pH 9.0 (5.0-8.0) 04/04/18 12:11 Ur Specific [place] 1.009 (1.003-1.030) 04/04/18 12:11 Urine Protein 2+ mg/dL (NEGATIVE) H 04/04/18 12:11 Urine Glucose (UA) Normal mg/dL (Normal) 04/04/18 12:11 Urine Ketones Negative mg/dL (NEGATIVE) 04/04/18 12:11 Urine Blood Negative (NEGATIVE) 04/04/18 12:11 Urine Nitrate Negative (NEGATIVE) 04/04/18 12:11 Urine Bilirubin Negative (NEGATIVE) 04/04/18 12:11 Urine Urobilinogen Normal mg/dL (0.2-1.0) 04/04/18 12:11 Ur Leukocyte Esterase Neg Amy/uL (Negative) 04/04/18 12:11 Urine WBC (Auto) < 1 /hpf (0-5) 04/04/18 12:11 Urine RBC (Auto) 1 /hpf (0-3) 04/04/18 12:11 Urine Bacteria Rare (<OCC) 04/04/18 12:11 Random Vancomycin 21.0 ug/mL 04/09/18 06:19 Urine Opiates Screen Negative (NEGATIVE) 04/06/18 21:50 Urine Methadone Screen Negative (NEGATIVE) 04/06/18 21:50 Ur Barbiturates Screen Negative (NEGATIVE) 04/06/18 21:50 Ur Phencyclidine Scrn Negative (NEGATIVE) 04/06/18 21:50 Ur Amphetamines Screen Negative (NEGATIVE) 04/06/18 21:50 U Benzodiazepines Scrn Negative (NEGATIVE) 04/06/18 21:50 U Oth Cocaine Metabols Negative (NEGATIVE) 04/06/18 21:50 U Cannabinoids Screen Negative (NEGATIVE) 04/06/18 21:50 Hep Bs Antigen Negative (NEGATIVE) 04/05/18 14:16 Influenza Typ A,B (EIA) Negative for flu a/b (NEGATIVE) 04/04/18 07:52 Blood Type O POSITIVE 04/07/18 16:36 Antibody Screen Negative 04/07/18 16:36 - Hospital Course Hospital Course: HPI: Patient is a 32M with a past medical history of HTN, ESRD (HD es, Th, Sat), known atypical HUS and thrombocytopenia who presented to the ED with complaints of pain and yellow discharge from his dialysis port in his right chest. He also reports vomiting overnight at 12am and 4 am, but has not vomited since arriving to the hospital. The patient has been going to dialysis regularly on TTS, however, missed the last two sessions due to severe headache and general malaise. The patient currently complains of fevers, chills, headache , dizziness, abdominal pain, nausea, vomiting, and muscles aches. PMH: HTN, CKD, ESRD, known atypical HUS, thrombocytopenia Surg Hx: PD cath placed 05/2017, renal biopsy 03/2017, right chest permacath placed 03/2017, splenectomy at 4 y/o FMH: Denies family history Meds: Clonidine 0.2mg; occasionally takes tylenol as needed PMD: [facility] Allergies: Aspirin - "doctor told me not to take because of low platelets" Nephrology: Dr. Villasenor Vascular: Dr. Quach Heme-Onc: Dr. Benites Hospital course: Patient was admitted on 04/04/18 for sepsis. Patient was transferred to the ICU for sepsis secondary to infection of his right chest perma cath. Blood cultures were ordered on 04/04 and were positive for MSSA and was started on antibiotics. ID, Dr. Gilmore, was consulted and started gentamicin, vanco, and naficillin on 04/06/18. Surgery, Dr. Quach, was consulted for removal and replacement of catheter; however, Dr. Quach was unavailable at this time. Dr. Huffman was then consulted, but also unable at the time. Dr. Joseph was then consulted. Patient received dialysis via permacath on normal schedule of Tuesday, , Tuesday during his hospital course. Repeat blood cultures were ordered twice (on 04/06 and 04/07), and all have been negative for more than 5 days. At admission, patient was found to have thrombocytopeni--he has a history of atypical HUS and his baseline platelet count in below 10. Hem/onc, Dr. Benites, was consulted. Patient received platelet transfusion and platelets increased, however immediately started to trend down the follow day. Head CT was ordered and unremarkable. Patient complained of headache post dialysis and was given Tylenol and ice packs as needed. Patient has a repeat head CT which was also unremarkable. Patient developed rash in right axilla and was treated for shingles with acyclovir. Patient was hypertensive during hospital course and antihypertensives were adjusted- patient is taking Clonidine 0.2 po bid, norvasc 10mg po daily, coreg 6.25mg po bid, and hydralazine 25mg po q8. Patient's blood pressure improved and stabilized. Patient requested to sign out against medical advice as he does not want to be in hospital anymore and does not want to wait for a new permacath. The patient understood all risks if he left and signed the AMA form. Patient scheduled for dialysis today, however he refuses to go. Patient was given prescriptions to complete course of acyclovir and azithromycin, as well as medications for his hypertension as it just recently became controlled with 4 antihypertensives. Patient admitted that he does not like dialysis as it makes him feel worse and states he no longer wants to continue. Patient was told (and given written prescription) that he must follow up in clinic ([facility]) to arrange for permacath removal if he no longer wants to continue dialysis as it is a source of infection. Patient also told to return to nearest ED if any symptoms return or worsen. This is a brief summary of the hospital course. Please see EMR for more details. Discharge Exam - Additional Findings Additional findings: - Constitutional Appears: No Acute Distress - Head Exam Head Exam: ATRAUMATIC, NORMAL INSPECTION - Eye Exam Eye Exam: EOMI, Normal appearance - ENT Exam ENT Exam: Mucous Membranes Moist - Respiratory Exam Respiratory Exam: NORMAL BREATHING PATTERN. absent: Rales, Rhonchi, Wheezes, Respiratory Distress - Cardiovascular Exam Cardiovascular Exam: REGULAR RHYTHM, +S1, +S2. absent: Bradycardia, Tachycardia - GI/Abdominal Exam GI & Abdominal Exam: Soft, Normal Bowel Sounds. absent: Distended, Firm, Tenderness Additional comments: well healed scar s/p previous peritoneal dialysis - Extremities Exam Extremities Exam: Normal Inspection. absent: Pedal Edema, Tenderness - Psychiatric Exam Psychiatric exam: Normal Affect, Normal Mood - Skin Skin Exam: Dry, Normal Color, Rash (right axilla- shingles), Warm Right chest permacath in place Discharge Plan - Discharge Medications Prescriptions: Acyclovir [Zovirax] 800 mg PO Q8H #14 tab amLODIPine [Norvasc] 10 mg PO DAILY #30 tab Azithromycin 500 mg PO DAILY #6 tablet Carvedilol [Coreg] 6.25 mg PO BID #60 tab cloNIDine [Catapres] 0.2 mg PO TID #90 tab hydrALAZINE [Apresoline] 25 mg PO Q8 #90 tab Saccharomyces Boulardi [Florastor] 250 mg PO BID 36 Days #72 cap - Follow Up Plan Condition: SERIOUS Disposition: AGAINST MEDICAL ADVICE
== END 2018-04-13 09:30 | disposition left against medical advice (07) | DRG 314 ==
LOC: C.ER 06:11 → C.9E 10:19 → C.5S 11:02 → C.9E 11:30 → C.5S 11:45 → C.9E 14:31 → C.9I 14:34 → C.5S 04-06 13:51 → C.9I 04-06 18:13 → C.5S 04-11 22:29
PROVIDERS: ADMIT Family Medicine; ATTEND Family Medicine
PROC: 30233R1 Transfusion of Nonautologous Platelets into Peripheral Vein, Percutaneous Approach (ICD-10-PCS; 2018-04-05)
PROC: 5A1D70Z Performance of Urinary Filtration, Intermittent, Less than 6 Hours Per Day (ICD-10-PCS; principal; 2018-04-08)
PROC: 5A1D70Z Performance of Urinary Filtration, Intermittent, Less than 6 Hours Per Day (ICD-10-PCS; 2018-04-11)
DX: T80.211A Bloodstream infection due to central venous catheter, initial encounter (principal); A41.89 Other specified sepsis; M31.1 Thrombotic microangiopathy; N18.6 End stage renal disease; D59.3 Hemolytic-uremic syndrome; I12.0 Hypertensive chronic kidney disease with stage 5 chronic kidney disease or end stage renal disease; E11.22 Type 2 diabetes mellitus with diabetic chronic kidney disease; D69.59 Other secondary thrombocytopenia; E87.5 Hyperkalemia; F43.22 Adjustment disorder with anxiety; H91.92 Unspecified hearing loss, left ear; Z90.81 Acquired absence of spleen; Z99.2 Dependence on renal dialysis

== ENCOUNTER 2018-05-04 12:30 | Emergency (ER) | payer SELFPAY ==
[2018-05-04 12:38] VITALS: BMI 25.8
[2018-05-04 12:42] VITALS: O2SAT 100
--- NOTE | 2018-05-04 12:56 | C.PDOC ---
History Of Present Illness 32M with a past medical history of HTN, HUS, ESRD (HD Tues, Thurs, Sat), presents to the ED requesting perma catheter removal. Patient states "I am not getting dialysis so I don't need it." Patient states his last dialysis was three weeks ago and states he feels well. PT notes the dialysis causes him to have headaches and not feel well. Patient denies fever, chest pain, shortness of breath, abdominal pain, leg pain/swelling, bleeding or change in bowel movements. States he is complaint with his chronic medication. 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 (ISAK Leonard) History/Exam Limitations: no limitations Onset/Duration Of Symptoms: Days Current Symptoms Are (Timing): Still Present Additional History Per: Patient Past Medical History Reviewed: Historical Data, Nursing Documentation, Vital Signs Vital Signs: Last Vital Signs Temp 98.1 F 05/04/18 14:45 Pulse 62 05/04/18 14:45 Resp 16 05/04/18 14:45 BP 122/81 05/04/18 14:45 Pulse Ox 100 05/04/18 17:20 - Medical History PMH: HTN, End Stage Renal Disease (PERITONEAL DIALYSIS), Chronic Kidney Disease Surgical History: No Surg Hx - [facility] Procedures (04/04/18) EXCISION OF LEFT KIDNEY, PERCUTANEOUS APPROACH, DIAGNOSTIC (09/28/16) EXTRACTION OF ILIAC BONE MARROW, PERC APPROACH, DIAGN (09/28/16) FLUOROSCOPY OF SUPERIOR VENA CAVA, GUIDANCE (03/15/17) INJECT/INFUSE NEC (12/01/14) INSERT INFUSION DEV IN R INT JUGULAR VEIN, PERC (12/17/17) INSERT OF INFUSION DEV INTO PERITON CAV, PERC ENDO APPROACH (05/25/17) INSERTION OF INFUSION DEV INTO INF VENA CAVA, PERC APPROACH (12/17/17) INSERTION OF INFUSION DEV INTO SUP VENA CAVA, PERC APPROACH (03/15/17) IRRIGATION OF PERITON CAV USING DIALYSATE, PERC APPROACH (05/25/17) OCCLUSION OF L RENAL ART WITH INTRALUM DEV, PERC APPROACH (09/28/16) PERFORMANCE OF URINARY FILTRATION, MULTIPLE (03/15/17) PERFORMANCE OF URINARY FILTRATION, SINGLE (05/28/17) PHERESIS OF PLASMA, MULTIPLE (11/15/16) PHERESIS OF PLATELETS, MULTIPLE (12/17/17) REMOVAL OF INFUSION DEVICE FROM PERITON CAV, OPEN APPROACH (02/07/18) TRANSFUSE NONAUT FROZEN PLASMA IN PERIPH VEIN, PERC (09/28/16) TRANSFUSE NONAUT PLATELETS IN PERIPH VEIN, PERC (04/04/18) TRANSFUSE NONAUT RED BLOOD CELLS IN PERIPH VEIN, PERC (09/28/16) ULTRASONOGRAPHY OF INFERIOR VENA CAVA, GUIDANCE (12/17/17) ULTRASONOGRAPHY OF LEFT KIDNEY (09/28/16) Family History: States: Unknown Family Hx - Social History Hx Alcohol Use: No Hx Substance Use: No - Immunization History Hx Tetanus Toxoid Vaccination: No Hx Influenza Vaccination: No Hx Pneumococcal Vaccination: No Review Of Systems Constitutional: Negative for: Fever, Chills Cardiovascular: Negative for: Chest Pain Respiratory: Negative for: Shortness of Breath Gastrointestinal: Negative for: Abdominal Pain Genitourinary: Positive for: Other (dialysis catheter removal ) Physical Exam - Physical Exam Appears: Non-toxic, No Acute Distress Skin: Normal Color, Warm, Dry Head: Atraumatic, Normacephalic Eye(s): bilateral: Normal Inspection, EOMI Nose: Normal Oral Mucosa: Moist Neck: Normal ROM, Supple Chest: Symmetrical, No Deformity, No Tenderness, Other (permacath to right upper chest wall, no erythema or discharge) Cardiovascular: Rhythm Regular Respiratory: Normal Breath Sounds, No Rales, No Rhonchi, No Wheezing Gastrointestinal/Abdominal: Soft, No Tenderness, No Guarding, No Rebound Extremity: Normal ROM, Capillary Refill (less than 2 seconds ) Neurological/Psych: Oriented x3, Normal Speech, Normal Cognition ED Course And Treatment - Laboratory Results Result Diagrams: 05/04/18 13:34 05/04/18 13:34 O2 Sat by Pulse Oximetry: 100 (on RA ) Pulse Ox Interpretation: Normal Progress Note: Bloodwork ordered and reviewed. Thrombocytopenia noted. Pt was admited last month and discharge with platlets of 7. This baseline for pt. Cr of 7 notes, last noted Cr on 04/13 is 6.4. Pt is known to have ESRD and refusing dialysis. Medical Decision Making Medical Decision Making: Progress: Bloodwork ordered and reviewed. Patient is advised about admission, but is choosing to leave against medical advice. I have personally explained to the patient that choosing to do so may result in permanent bodily harm or . I have discussed at great length that without further evaluation and monitoring there may be unforeseen circumstances and/or deterioration causing permanent bodily harm or as a result of their choice. The patient is alert, oriented, and shows the mental capacity to make clear decisions regarding the patients health care at this time. The patient continues to wish to leave against medical advice. In light of the patients decision to leave AMA, the patient is aware of the importance of following up as instructed. The patient has been advised that he should return to the ED immediately if he changes his mind at any time, or if their condition begins to change or worsen in any way. ISAK Leonrad with translation. Dr Dhruv heart and AMA. Disposition - Disposition Disposition: HOME/ ROUTINE Disposition Time: 15:00 Condition: STABLE Instructions: End Stage Kidney Disease (DC) Forms: (AMA) Informed Refusal, [facility] (Beninese) Print Language: UZBEK - Clinical Impression Clinical Impression: ESRD (end stage renal disease) on dialysis, HUS (hemolytic uremic syndrome), Thrombocytopenia - PA / COOKING SHOW HOST / Resident Statement MD/DO has reviewed & agrees with the documentation as recorded. - Scribe Statement The provider has reviewed the documentation as recorded by the Scribe (Elaine Valle) All medical record entries made by the Scribe were at my direction and personally dictated by me. I have reviewed the chart and agree that the record accurately reflects my personal performance of the history, physical exam, medical decision making, and the department course for this patient. I have also personally directed, reviewed, and agree with the discharge instructions and disposition.
[2018-05-04 13:44] LABS: BASO # 0.1 K/uL (0.0-0.2); BASO % 0.6 % (0.0-2.0); EOS # 0.6 K/uL (0.0-0.7); EOS % 7.2 % (0.0-4.0); HEMOGLOBIN 11.5 g/dL (12.0-18.0); LYMPH # 3.3 K/uL (1.0-4.3); MEAN CELL VOLUME 92.1 fL (80.0-94.0); MEAN CORPUSCULAR HEMOGLOBIN 31.2 pg (27.0-31.0); MEAN CORPUSCULAR HGB CONC 33.8 g/dL (33.0-37.0); MEAN PLATELET VOLUME 13.1 fL (7.2-11.7); MONO # 1.3 K/uL (0.0-0.8); MONO % 14.9 % (0.0-10.0); NEUT # 3.4 K/uL (1.8-7.0); NEUT % 39.3 % (50.0-75.0); NRBC % 0.1 % (0.0-2.0); RBC 3.69 Mil/uL (4.40-5.90); RED CELL DISTRIBUTION WIDTH 17.9 % (11.5-14.5); WHITE BLOOD COUNT 8.8 K/uL (4.8-10.8)
[2018-05-04 13:54] LABS: INR 1.2; PROTHROMBIN TIME 12.9 SECONDS (9.7-12.2)
[2018-05-04 13:58] LABS: ALB/GLOB RATIO 1.4 (1.0-2.1); ALBUMIN 4.6 g/dL (3.5-5.0); CALCIUM 9.1 mg/dl (8.6-10.4)
[2018-05-04 15:00] VITALS: BP 122/81; PULSE 62; RESP 16; TEMP 98.1
== END 2018-05-04 14:45 | disposition home or self-care (01) ==
LOC: C.ER 12:30
DX: I12.0 Hypertensive chronic kidney disease with stage 5 chronic kidney disease or end stage renal disease (principal); N18.6 End stage renal disease; Z99.2 Dependence on renal dialysis; D59.3 Hemolytic-uremic syndrome; D69.6 Thrombocytopenia, unspecified

== ENCOUNTER 2018-09-10 23:51 | Inpatient (IN) | payer OTHER ==
[2018-09-10 23:51] VITALS: BMI 25.8
[2018-09-11] MEDS ORDERED: Pantoprazole 80 MG in Sodium Chloride 0.9% 100 ML IV STA (00:08)
[2018-09-11] MEDS ORDERED: Sodium Chloride 0.9% 1,000 ML IV ONE (00:08)
--- NOTE | 2018-09-11 00:08 | C.PDOC ---
History Of Present Illness patient states that has been "vomiting some blood". Denies any f/c/. Has nausea . Patient has stopped his dialysis about 4 months ago. Also complains of right inguinal pain for a few weeks. In the ed, pt developed right nare epistaxis, which has since resolved. Time Seen by Provider: 09/11/18 00:08 Chief Complaint (Nursing): GI Problem History Per: Patient History/Exam Limitations: no limitations Onset/Duration Of Symptoms: Hrs Current Symptoms Are (Timing): Still Present Number Of Bleeding Episodes: Multiple: Amount of Blood Loss: Small Severity: Moderate Pain Scale Rating Of: 5 Quality Of Discomfort: Dull, Aching Associated Symptoms: Nausea, Vomiting. denies: Rectal Bleeding, Lightheadedness Modifying Factors: None Recent travel outside of the [place]: No Additional History Per: Patient Past Medical History Reviewed: Historical Data, Nursing Documentation, Vital Signs Vital Signs: Last Vital Signs Temp 98.3 F 09/10/18 23:55 Pulse 113 H 09/10/18 23:55 Resp 16 09/10/18 23:55 BP 148/82 09/10/18 23:55 Pulse Ox 97 09/10/18 23:55 - Medical History PMH: HTN, End Stage Renal Disease (PERITONEAL DIALYSIS), Chronic Kidney Disease - [facility] Procedures (04/04/18) EXCISION OF LEFT KIDNEY, PERCUTANEOUS APPROACH, DIAGNOSTIC (09/28/16) EXTRACTION OF ILIAC BONE MARROW, PERC APPROACH, DIAGN (09/28/16) FLUOROSCOPY OF SUPERIOR VENA CAVA, GUIDANCE (03/15/17) INJECT/INFUSE NEC (12/01/14) INSERT INFUSION DEV IN R INT JUGULAR VEIN, PERC (12/17/17) INSERT OF INFUSION DEV INTO PERITON CAV, PERC ENDO APPROACH (05/25/17) INSERTION OF INFUSION DEV INTO INF VENA CAVA, PERC APPROACH (12/17/17) INSERTION OF INFUSION DEV INTO SUP VENA CAVA, PERC APPROACH (03/15/17) IRRIGATION OF PERITON CAV USING DIALYSATE, PERC APPROACH (05/25/17) OCCLUSION OF L RENAL ART WITH INTRALUM DEV, PERC APPROACH (09/28/16) PERFORMANCE OF URINARY FILTRATION, MULTIPLE (03/15/17) PERFORMANCE OF URINARY FILTRATION, SINGLE (05/28/17) PHERESIS OF PLASMA, MULTIPLE (09/28/16) PHERESIS OF PLATELETS, MULTIPLE (12/17/17) REMOVAL OF INFUSION DEVICE FROM PERITON CAV, OPEN APPROACH (02/07/18) TRANSFUSE NONAUT FROZEN PLASMA IN PERIPH VEIN, PERC (09/28/16) TRANSFUSE NONAUT PLATELETS IN PERIPH VEIN, PERC (04/04/18) TRANSFUSE NONAUT RED BLOOD CELLS IN PERIPH VEIN, PERC (09/28/16) ULTRASONOGRAPHY OF INFERIOR VENA CAVA, GUIDANCE (12/17/17) ULTRASONOGRAPHY OF LEFT KIDNEY (09/28/16) Family History: States: No Known Family Hx - Social History Hx Alcohol Use: No Hx Substance Use: No - Immunization History Hx Tetanus Toxoid Vaccination: No Hx Influenza Vaccination: No Hx Pneumococcal Vaccination: No Review Of Systems Constitutional: Positive for: Chills. Negative for: Fever Eyes: Negative for: Vision Change ENT: Positive for: Other (epistaxis). Negative for: Throat Pain Cardiovascular: Negative for: Chest Pain Respiratory: Negative for: Shortness of Breath Gastrointestinal: Positive for: Nausea, Vomiting, Abdominal Pain Genitourinary: Negative for: Dysuria Musculoskeletal: Negative for: Back Pain Skin: Negative for: Rash Neurological: Negative for: Weakness Psych: Positive for: Anxiety Physical Exam - Physical Exam Appears: In Acute Distress Skin: Warm, Dry Head: Normacephalic Eye(s): bilateral: Normal Inspection Ear(s): Left: Other (hearing aid) Nose: Epistaxis (right nare) Oral Mucosa: Moist Throat: No Erythema Neck: Supple Chest: Symmetrical, Other (hd shunt right chest) Cardiovascular: Rhythm Regular Respiratory: No Rales, Rhonchi, No Wheezing Gastrointestinal/Abdominal: Soft, Tenderness, No Distention, No Guarding, No Rebound, Hernia (right inguinal reducible) Rectal: Maroon Stool Back: Normal Inspection Extremity: Normal ROM Extremity: Bilateral: Atraumatic, No Pedal Edema, Normal Color And Temperature, Normal ROM Pulses: Left Dorsalis Pedis: Normal, Right Dorsalis Pedis: Normal Neurological/Psych: Oriented x3 Gait: Steady ED Course And Treatment - Laboratory Results Result Diagrams: 09/11/18 00:36 09/11/18 00:36 ECG: Interpreted By Me, Viewed By Me O2 Sat by Pulse Oximetry: 97 Pulse Ox Interpretation: Normal - Radiology CXR: Interpreted by Me, Viewed By Me Progress Note: 1:09AM spoke with dr lnyn - icu- will come and see the pt in the ed Critical Care Time - Critical Care Note Total Time (in mins): 30 Documented critical care: time excludes all time spent performing seperately billable procedures. Disposition Discussed With Dr.: Michael Jacobson Comment: accepted the pt onhis service and took over the care at 1:30AM Doctor Will See Patient In The: ED Counseled Patient/Family Regarding: Studies Performed, Diagnosis - Disposition Disposition: HOSPITALIZED Disposition Time: 00:08 Condition: CRITICAL Forms: [facility] (Norwegian) - POA Present On Arrival: Poor Glycemic Control - Clinical Impression Clinical Impression: Gastrointestinal hemorrhage, Thrombocytopenia, Renal failure, Anemia, Sepsis Decision To Admit - Pt Status Changed To: Hospital Disposition Of: Inpatient - Admit Certification Admit to Inpatient:: After my assessment, the patient will require hospitalization for at least two midnights. This is because of the severity of symptoms shown, intensity of services needed, and/or the medical risk in this patient being treated as an outpatient. - InPatient: Physician Admission Certification: I certify that this patient requires 2 or more midnights of care for the following reason:: After my assessment, the patient will require hospitalization for at least two midnights. This is because of the severity of symptoms shown, intensity of services needed, and/or the medical risk in this patient being treated as an outpatient. - . Bed Request Type: Telemetry Admitting Physician: Michael Jacobson Patient Diagnosis: Gastrointestinal hemorrhage, Thrombocytopenia, Renal failure, Anemia, Sepsis
[2018-09-11 00:44] LABS: BASO # 0.1 K/uL (0.0-0.2); BASO % 0.5 % (0.0-2.0); EOS # 0.3 K/uL (0.0-0.7); EOS % 1.3 % (0.0-4.0); HEMOGLOBIN 8.2 g/dL (12.0-18.0); LYMPH # 6.2 K/uL (1.0-4.3); LYMPH % 26.7 % (20.0-40.0); MEAN CORPUSCULAR HEMOGLOBIN 28.4 pg (27.0-31.0); MEAN CORPUSCULAR HGB CONC 32.3 g/dL (33.0-37.0); MEAN PLATELET VOLUME 13.3 fL (7.2-11.7); MONO # 1.9 K/uL (0.0-0.8); MONO % 8.1 % (0.0-10.0); NEUT # 14.8 K/uL (1.8-7.0); NEUT % 63.4 % (50.0-75.0); NRBC % 0.1 % (0.0-2.0); RBC 2.89 Mil/uL (4.40-5.90); RED CELL DISTRIBUTION WIDTH 14.9 % (11.5-14.5); WHITE BLOOD COUNT 23.4 K/uL (4.8-10.8)
[2018-09-11 00:48] LABS: VENOUS BLOOD GAS PCO2 22 mmHg (40-60); VENOUS BLOOD GAS PO2 81 mm/Hg (30-55); VENOUS BLOOD PH 7.48 (7.32-7.43)
[2018-09-11 00:52] LABS: PLATELET COUNT 6 K/uL (130-400)
[2018-09-11 00:55] LABS: INR 1.3; PROTHROMBIN TIME 14.6 SECONDS (9.7-12.2)
[2018-09-11] MEDS ORDERED: Gentamicin 80 mg/2mL Inj. IVPB STA (00:57)
[2018-09-11] MEDS ORDERED: Piperacillin/Tazobact 3.375 gm 100 ML IVPB STA (00:58)
[2018-09-11 00:59] LABS: URINE BACTERIA RARE (<OCC); URINE BILIRUBIN NEGATIVE (NEGATIVE); URINE BLOOD NEGATIVE (NEGATIVE); URINE CLARITY Clear (Clear); URINE COLOR Yellow (YELLOW); URINE GLUCOSE (UA) NORMAL (Normal); URINE LEUKOCYTE ESTERASE NEG Leu/uL (Negative); URINE PROTEIN 3+ mg/dL (NEGATIVE); URINE UROBILINOGEN NORMAL mg/dL (0.2-1.0)
[2018-09-11] MEDS ORDERED: Vancomycin 1 GM 1 GM/250 ML BAG IVPB SCH (01:00)
[2018-09-11 01:01] LABS: ALB/GLOB RATIO 1.3 (1.0-2.1); ALT/SGPT 20 U/L (21-72); AST/SGOT 14 U/L (17-59); BLOOD UREA NITROGEN 72 mg/dL (9-20); CALCIUM 9.5 mg/dl (8.6-10.4); GFR NON-AFRICAN AMERICAN 6
[2018-09-11] MEDS ORDERED: Vancomycin 1 GM 1 GM/250 ML BAG IVPB ONE (01:12)
[2018-09-11] MEDS ORDERED: GENTAMICIN IVPB ONE (01:15)
[2018-09-11] MEDS ORDERED: SODIUM CHLORIDE 0.9% IVPB ONE (01:15)
[2018-09-11 01:27] LABS: GIANT PLATELETS PRESENT; LYMPHOCYTE 26 % (20-40); MONOCYTE 7 % (0-10); NEUTROPHIL 66 % (50-75); PLATELET ESTIMATE MARKEDLY DECREASED (NORMAL); REACTIVE LYMPHOCYTES 1 % (0-0); TOTAL CELLS COUNTED 100
[2018-09-11] MEDS ORDERED: Pantoprazole 80 MG in Sodium Chloride 0.9% 100 ML IVPB SCH (04:00)
[2018-09-11] MEDS ORDERED: Labetalol 5mg/ml (4ml) IVP ONE (04:05)
--- NOTE | 2018-09-11 04:13 | CP.PCM.HP ---
Addendum entered and electronically signed by Jose Cronin 09/11/18 08:04: H&P for Hospitalist Dr. Jacobson 32 Y w/ PMHx: HTN, CKD, ESRD, known atypical HUS, thrombocytopenia presents to ED with vomiting. Patient states that since this morning he has had several episodes of non bloody, non bilious vomiting. He states he also has SOB with these vomiting episodes. Patient denies any sick contacts. recent travel, outside food he may have had that could have caused these symptoms. Patient additionally states he had epistaxis following the vomiting this AM, which has no resolved. Patient denies fevers, chills, chest pain, headaches, vision changes. In ED patient was found to be occult blood +, with a hemoglobin in the 8s. Patient states he stopped attending his dialysis for the last several months. Patient has followed up with Dr. Villasenor 2 months prior. PMD: [facility] PMHx: PMHx: HTN, CKD, ESRD, known atypical HUS, thrombocytopenia Meds: Clonidine 0.2 po bid, norvasc 10mg po daily, coreg 6.25mg po bid, and hydralazine 25mg po q8 Allergies: Aspirin (PMD informed him not to take it due to platelets, not a true allergy) PSHx: PD cath placed 05/2017, renal biopsy 03/2017, right chest permacath placed 03/2017, splenectomy at 4 y/o Nephrology: Dr. Villasenor Vascular: Dr. Quach Heme-Onc: Dr. Benites Original Note: <Jose Cronin - Last Filed: 09/11/18 06:47> History of Present Illness - History of Present Illness History of Present Illness: H&P for Hospitalist Dr. Jacobson 32 Y w/ PMHx: HTN, CKD, ESRD, known atypical HUS, thrombocytopenia presents to ED with vomiting. Patient states that since this morning he has had several episodes of non bloody, non bilious vomiting. He states he also has SOB with these vomiting episodes. Patient denies any sick contacts. recent travel, outside food he may have had that could have caused these symptoms. Patient additionally states he had epistaxis following the vomiting this AM, which has no resolved. Patient denies fevers, chills, chest pain, headaches, vision changes. In ED patient was found to be occult blood +, with a hemoglobin of Patient states he stopped attending his dialysis for the last several months. Patient has followed up with Dr. Villasenor 2 months prior. PMD: [facility] PMHx: PMHx: HTN, CKD, ESRD, known atypical HUS, thrombocytopenia Meds: Clonidine 0.2 po bid, norvasc 10mg po daily, coreg 6.25mg po bid, and hydralazine 25mg po q8 Allergies: Aspirin (PMD informed him not to take it due to platelets, not a true allergy) PSHx: PD cath placed 05/2017, renal biopsy 03/2017, right chest permacath placed 03/2017, splenectomy at 4 y/o Nephrology: Dr. Villasenor Vascular: Dr. Quach Heme-Onc: Dr. Benites Present on Admission - Present on Admission Any Indicators Present on Admission: No Review of Systems - Constitutional Constitutional: absent: Chills - EENT Eyes: absent: Blurred Vision Nose/Mouth/Throat: Epistaxis - Cardiovascular Cardiovascular: absent: Chest Pain - Gastrointestinal Gastrointestinal: absent: Abdominal Pain - Genitourinary Genitourinary: absent: Change in Urinary Stream, Hematuria - Musculoskeletal Musculoskeletal: absent: Muscle Weakness - Integumentary Integumentary: absent: Bleeding Lesions - Neurological Neurological: absent: Abnormal Hearing - Psychiatric Psychiatric: absent: Confusion Past Patient History - Infectious Disease Hx of Infectious Diseases: None - Past Medical History & Family History Past Medical History?: Yes - Past Social History Smoking Status: Never Smoked - CARDIAC Hx Hypertension: Yes - PULMONARY Hx Respiratory Disorders: No - NEUROLOGICAL Hx Neurological Disorder: No - HEENT Hx HEENT Problems: Yes Hx Deafness: (LEFT HEARING AID) Other/Comment: HEARING IMPAIRED - RENAL Hx Chronic Kidney Disease: Yes - ENDOCRINE/METABOLIC Hx Endocrine Disorders: No - HEMATOLOGICAL/ONCOLOGICAL Hx Blood Disorders: Yes Other/Comment: Thrombocytopenia - INTEGUMENTARY Hx Dermatological Problems: No - MUSCULOSKELETAL/RHEUMATOLOGICAL Hx Musculoskeletal Disorders: No - GASTROINTESTINAL Hx Gastrointestinal Disorders: No - GENITOURINARY/GYNECOLOGICAL Hx Genitourinary Disorders: No - PSYCHIATRIC Hx Substance Use: No - SURGICAL HISTORY Hx Surgeries: Yes Other/Comment: peritoneal dialysis catheter 05/2017. right chest wall permacath - ANESTHESIA Hx Anesthesia: Yes Hx Anesthesia Reactions: No Hx Malignant Hyperthermia: No Meds Allergies/Adverse Reactions: Allergies Allergy/AdvReac Type Severity Reaction Status Date / Time aspirin AdvReac ANAPHYLAXIS Verified 09/10/18 23:59 Physical Exam - Constitutional Appears: Non-toxic, No Acute Distress - Head Exam Head Exam: ATRAUMATIC, NORMAL INSPECTION, NORMOCEPHALIC Additional comments: hearing aid present in left - Eye Exam Eye Exam: EOMI, Normal appearance - ENT Exam ENT Exam: Mucous Membranes Dry - Neck Exam Neck exam: Positive for: Normal Inspection - Respiratory Exam Respiratory Exam: Clear to Auscultation Bilateral, NORMAL BREATHING PATTERN. absent: Rales, Rhonchi, Wheezes - Cardiovascular Exam Cardiovascular Exam: +S1, +S2. absent: Systolic Murmur Additional comments: R chest permacath in place. Per patient, there for several months. - GI/Abdominal Exam GI & Abdominal Exam: Normal Bowel Sounds, Soft - Extremities Exam Extremities exam: Positive for: full ROM, pedal pulses present. Negative for: calf tenderness, pedal edema Additional comments: 6 digits b/l LE - Back Exam Back exam: absent: CVA tenderness (L), CVA tenderness (R) - Neurological Exam Neurological exam: Alert, Oriented x3 - Psychiatric Exam Psychiatric exam: Flat Affect - Skin Skin Exam: Dry, Intact, Normal Color, Warm Additional comments: petechiae like [place] on arms b/l. 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) Results - Vital Signs Recent Vital Signs: Last Vital Signs Temp 98.2 F 09/11/18 03:46 Pulse 102 H 09/11/18 03:46 Resp 18 09/11/18 03:46 BP 143/92 H 09/11/18 03:46 Pulse Ox 97 09/11/18 03:50 - Labs Result Diagrams: 09/11/18 04:48 09/11/18 05:13 Labs: Laboratory Results - last 24 hr 09/11/18 09/11/18 09/11/18 00:30 00:36 00:36 WBC 23.4 H D RBC 2.89 L Hgb 8.2 L D Hct 25.5 L MCV 88.0 D MCH 28.4 MCHC 32.3 L RDW 14.9 H Plt Count 6 L* MPV 13.3 H Neut % (Auto) 63.4 Lymph % (Auto) 26.7 [place] % (Auto) 8.1 Eos % (Auto) 1.3 Baso % (Auto) 0.5 Neut # (Auto) 14.8 H Lymph # (Auto) 6.2 H [place] # (Auto) 1.9 H Eos # (Auto) 0.3 Baso # (Auto) 0.1 Neutrophils % (Manual) 66 Lymphocytes % (Manual) 26 Reactive Lymphs % 1 H Monocytes % (Manual) 7 Platelet Estimate Markedly decreased L Giant Platelets Present PT 14.6 H INR 1.3 APTT 35 H pO2 81 H VBG pH 7.48 H VBG pCO2 22 L VBG HCO3 21.0 VBG Total CO2 17.1 L VBG O2 Sat (Calc) 99.1 H VBG Base Excess -5.0 L VBG Potassium 4.1 Sodium 141.0 Chloride 114.0 H Glucose 134 H Lactate 1.6 Potassium Carbon Dioxide Anion Gap BUN Creatinine Est GFR ( Amer) Est GFR (Non-Af Amer) Random Glucose Calcium Total Bilirubin AST ALT Alkaline Phosphatase NT-Pro-B Natriuret Pep Total Protein Albumin Globulin Albumin/Globulin Ratio Venous Blood Potassium 4.1 Urine Color Urine Clarity Urine pH Ur Specific [place] Urine Protein Urine Glucose (UA) Urine Ketones Urine Blood Urine Nitrate Urine Bilirubin Urine Urobilinogen Ur Leukocyte Esterase Urine WBC (Auto) Urine RBC (Auto) Urine Bacteria Stool Occult Blood Alcohol, Quantitative Blood Type Antibody Screen 09/11/18 09/11/18 09/11/18 00:36 00:36 00:43 WBC RBC Hgb Hct MCV MCH MCHC RDW Plt Count MPV Neut % (Auto) Lymph % (Auto) [place] % (Auto) Eos % (Auto) Baso % (Auto) Neut # (Auto) Lymph # (Auto) [place] # (Auto) Eos # (Auto) Baso # (Auto) Neutrophils % (Manual) Lymphocytes % (Manual) Reactive Lymphs % Monocytes % (Manual) Platelet Estimate Giant Platelets PT INR APTT pO2 VBG pH VBG pCO2 VBG HCO3 VBG Total CO2 VBG O2 Sat (Calc) VBG Base Excess VBG Potassium Sodium 145 Chloride 107 Glucose Lactate Potassium 4.4 Carbon Dioxide 16 L Anion Gap 26 H BUN 72 H Creatinine 10.7 H* D Est GFR ( Amer) 7 Est GFR (Non-Af Amer) 6 Random Glucose 136 H Calcium 9.5 Total Bilirubin 0.5 AST 14 L D ALT 20 L D Alkaline Phosphatase 137 H NT-Pro-B Natriuret Pep Total Protein 7.0 Albumin 4.0 Globulin 3.0 Albumin/Globulin Ratio 1.3 Venous Blood Potassium Urine Color Urine Clarity Urine pH Ur Specific [place] Urine Protein Urine Glucose (UA) Urine Ketones Urine Blood Urine Nitrate Urine Bilirubin Urine Urobilinogen Ur Leukocyte Esterase Urine WBC (Auto) Urine RBC (Auto) Urine Bacteria Stool Occult Blood Positive H Alcohol, Quantitative < 10 Blood Type O POSITIVE Antibody Screen Negative 09/11/18 09/11/18 00:49 03:14 WBC RBC Hgb Hct MCV MCH MCHC RDW Plt Count MPV Neut % (Auto) Lymph % (Auto) [place] % (Auto) Eos % (Auto) Baso % (Auto) Neut # (Auto) Lymph # (Auto) [place] # (Auto) Eos # (Auto) Baso # (Auto) Neutrophils % (Manual) Lymphocytes % (Manual) Reactive Lymphs % Monocytes % (Manual) Platelet Estimate Giant Platelets PT INR APTT pO2 VBG pH VBG pCO2 VBG HCO3 VBG Total CO2 VBG O2 Sat (Calc) VBG Base Excess VBG Potassium Sodium Chloride Glucose Lactate Potassium Carbon Dioxide Anion Gap BUN Creatinine Est GFR ( Amer) Est GFR (Non-Af Amer) Random Glucose Calcium Total Bilirubin AST ALT Alkaline Phosphatase NT-Pro-B Natriuret Pep 6900 H Total Protein Albumin Globulin Albumin/Globulin Ratio Venous Blood Potassium Urine Color Yellow Urine Clarity Clear Urine pH 6.0 Ur Specific [place] 1.014 Urine Protein 3+ H Urine Glucose (UA) Normal Urine Ketones Negative Urine Blood Negative Urine Nitrate Negative Urine Bilirubin Negative Urine Urobilinogen Normal Ur Leukocyte Esterase Neg Urine WBC (Auto) 4 Urine RBC (Auto) 3 Urine Bacteria Rare Stool Occult Blood Alcohol, Quantitative Blood Type Antibody Screen Assessment & Plan - Assessment and Plan (Free Text) Assessment: 32 Y w/ PMHx: HTN, CKD, ESRD, known atypical HUS, thrombocytopenia presents to ED with vomiting, found stool occult positive, Hgb in low 8s, Cr in 10s: GI bleed - admission Hgb 8.2, AM labs 7.3 - transfuse PRBCs X 2 - f/u GI - Dr. Earl goodson Sepsis - Likely secondary to cathetor infection - HR persisted in the 130s, leukocytosis (WBC 13s), afebrile - patient SBP in 120s - In ED, patient was given Zosyn 2.25gm and Vancomycin 1gm IV, Gentamicin 270mg X1 - Currently on Vancomycin 1gm IV Q24,Zosyn 2.25gm Q8 - Surgery consulted, Dr. Quach for possible permacath replacement - F/u Blood cultures - F/u Chest Xray Severe Thrombocytopenia - F/u Hem/Onc consult, Dr. Kamari goodson - Admission platelet count 6 ESRD - Cr in 10s, elevated from previous admission of 7s - f/u nephro - Dr. Hamilton goodson - currently not on dialysis, still producing urine Atypical hemolytic uremic syndrome - Hx of atypical HUS and thrombocytopenia. - F/u Heme/Onc, Dr. Kamari goodson - Renal biopsy confirmed in prior hospitalization noted in the EMR Hypertension - C/w: Home medication: Clonidine 0.2mg PO BID Amlodipine 10mg PO daily Carvedilol 6.25 mg PO BID Hydralazine 25mg PO Q8H Prophylactic measure - DVT: No chemical anticoagulation due to severe thrombocytopenia - GI: Protonix drip - NPO for now until platelets higher <Michael Jacobson - Last Filed: 09/18/18 19:13> Results - Vital Signs Recent Vital Signs: Last Vital Signs Temp 97.7 F 09/18/18 17:45 Pulse 68 09/18/18 18:49 Resp 16 09/18/18 17:45 BP 146/88 09/18/18 18:49 Pulse Ox 99 09/18/18 17:45 - Labs Result Diagrams: 09/18/18 06:50 09/18/18 06:50 Labs: Laboratory Results - last 24 hr 09/18/18 09/18/18 09/18/18 06:50 06:50 13:41 WBC 26.2 H RBC 3.31 L Hgb 9.5 L Hct 28.8 L MCV 87.0 MCH 28.6 MCHC 32.9 L RDW 16.6 H Plt Count 13 L* Manual Plt Count 25 L* D MPV 11.6 Neut % (Auto) 76.1 H Lymph % (Auto) 19.1 L [place] % (Auto) 4.7 Eos % (Auto) 0.0 Baso % (Auto) 0.1 Neut # (Auto) 20.0 H Lymph # (Auto) 5.0 H [place] # (Auto) 1.2 H Eos # (Auto) 0.0 Baso # (Auto) 0.0 Neutrophils % (Manual) 93 H Lymphocytes % (Manual) 3 L Monocytes % (Manual) 4 Differential Comment Platelet Estimate Markedly increased H Large Platelets Present Giant Platelets Present Hypochromasia (manual) Slight Poikilocytosis (manual Slight Anisocytosis (manual) Slight Target Cells Slight Ovalocytes Slight Alicia Cells Slight Sodium 135 Potassium 3.9 Chloride 98 Carbon Dioxide 20 L Anion Gap 20 BUN 106 H* D Creatinine 9.1 H* Est GFR ( Amer) 8 Est GFR (Non-Af Amer) 7 Random Glucose 169 H Calcium 8.3 L Phosphorus 8.5 H Magnesium 2.3 Total Bilirubin 0.4 AST 27 ALT 81 H D Alkaline Phosphatase 102 Total Protein 5.9 L Albumin 3.5 Globulin 2.4 Albumin/Globulin Ratio 1.4 Urine Color Yellow Urine Clarity Clear Urine pH 5.0 Ur Specific [place] 1.011 Urine Protein 3+ H Urine Glucose (UA) 2+ H Urine Ketones Negative Urine Blood Negative Urine Nitrate Negative Urine Bilirubin Negative Urine Urobilinogen Normal Ur Leukocyte Esterase Neg Urine WBC (Auto) 2 Urine RBC (Auto) < 1 Ur Squamous Epith Cells < 1 Urine Bacteria Rare C. difficile Ag & Toxin 09/18/18 13:41 WBC RBC Hgb Hct MCV MCH MCHC RDW Plt Count Manual Plt Count MPV Neut % (Auto) Lymph % (Auto) [place] % (Auto) Eos % (Auto) Baso % (Auto) Neut # (Auto) Lymph # (Auto) [place] # (Auto) Eos # (Auto) Baso # (Auto) Neutrophils % (Manual) Lymphocytes % (Manual) Monocytes % (Manual) Differential Comment Platelet Estimate Large Platelets Giant Platelets Hypochromasia (manual) Poikilocytosis (manual Anisocytosis (manual) Target Cells Ovalocytes Alicia Cells Sodium Potassium Chloride Carbon Dioxide Anion Gap BUN Creatinine Est GFR ( Amer) Est GFR (Non-Af Amer) Random Glucose Calcium Phosphorus Magnesium Total Bilirubin AST ALT Alkaline Phosphatase Total Protein Albumin Globulin Albumin/Globulin Ratio Urine Color Urine Clarity Urine pH Ur Specific [place] Urine Protein Urine Glucose (UA) Urine Ketones Urine Blood Urine Nitrate Urine Bilirubin Urine Urobilinogen Ur Leukocyte Esterase Urine WBC (Auto) Urine RBC (Auto) Ur Squamous Epith Cells Urine Bacteria C. difficile Ag & Toxin Negative Assessment & Plan - Date & Time Date: 09/18/18 (I have seen and examined the patient. I agree with the findings and plan of care as documented by Dr. Cronin. Patient with GI bleed, sepsis, HUS, and ESRD. Consult to GI, Nephro, and Heme/onc. Transfuse 2 units PRBCs. Vanco and Zosyn - renally dose. Monitor for acute changes.) Time: 19:12 Attending/Attestation - Attestation I have personally seen and examined this patient.: Yes I have fully participated in the care of the patient.: Yes I have reviewed all pertinent clinical information: Yes
[2018-09-11] MEDS ORDERED: Labetalol 5mg/ml (4ml) ONE (04:17)
--- NOTE | 2018-09-11 04:37 | CP.PCM.CON ---
History of Present Illness - History of Present Illness History of Present Illness: HPI: Patient is a 32M with a past medical history of HTN, ESRD stopped going to the HD since march of this year, known atypical HUS and thrombocytopenia, history of Staph infection of the permacath, which patient continued to have despite infection, and warning, comes with nausea x2 days, vomiting x1 day, mainly food, denied blood or black vomit, sob, few days, subjective fever, constipation, and epistaxis just prior to coming to the hospital. Patient felt clot in the back of he left nostril which was making him nauseated and sob, this was confirmed by me on the exam. He was tachycardic, not febrile, maintaining spo2 100% on RA, htn, leucocytosis, platelet of 6, hemoglobin of 8. Patient also c/o right inguinal area hernia bothering him with cough and vomiting. PMH: HTN, CKD, ESRD, known atypical HUS, thrombocytopenia Surg Hx: PD cath placed 05/2017, renal biopsy 03/2017, right chest permacath placed 03/2017, splenectomy at 4 y/o FMH: Denies family history Meds: Reviewed Allergies: Aspirin due to low platelets. Review of Systems - Review of Systems All systems: reviewed and no additional remarkable complaints except (HPI) Past Patient History - Infectious Disease Hx of Infectious Diseases: None - Past Medical History & Family History Past Medical History?: Yes - Past Social History Smoking Status: Never Smoked Alcohol: None Drugs: Denies Home Situation {Lives}: With Family - CARDIAC Hx Hypertension: Yes - PULMONARY Hx Respiratory Disorders: No - NEUROLOGICAL Hx Neurological Disorder: No - HEENT Hx HEENT Problems: Yes Hx Deafness: (LEFT HEARING AID) Other/Comment: HEARING IMPAIRED - RENAL Hx Chronic Kidney Disease: Yes - ENDOCRINE/METABOLIC Hx Endocrine Disorders: No - HEMATOLOGICAL/ONCOLOGICAL Hx Blood Disorders: Yes Other/Comment: Thrombocytopenia - INTEGUMENTARY Hx Dermatological Problems: No - MUSCULOSKELETAL/RHEUMATOLOGICAL Hx Musculoskeletal Disorders: No - GASTROINTESTINAL Hx Gastrointestinal Disorders: No - GENITOURINARY/GYNECOLOGICAL Hx Genitourinary Disorders: No - PSYCHIATRIC Hx Substance Use: No - SURGICAL HISTORY Hx Surgeries: Yes Other/Comment: peritoneal dialysis catheter 05/2017. right chest wall permacath - ANESTHESIA Hx Anesthesia: Yes Hx Anesthesia Reactions: No Hx Malignant Hyperthermia: No Meds Allergies/Adverse Reactions: Allergies Allergy/AdvReac Type Severity Reaction Status Date / Time aspirin AdvReac ANAPHYLAXIS Verified 09/10/18 23:59 - Medications Medications: Current Medications Amlodipine Besylate (Norvasc) 10 mg PO DAILY GUILLE Carvedilol (Coreg) 6.25 mg PO BID GUILLE Clonidine HCl (Catapres) 0.2 mg PO TID GUILLE Hydralazine HCl (Apresoline) 25 mg PO Q8 GUILLE Pantoprazole Sodium 80 mg/ (Sodium Chloride) 100 mls @ 10 mls/hr IVPB .Q10H GUILLE Labetalol HCl (Trandate) 5 mg IVP ONCE ONE Stop: 09/11/18 04:06 Physical Exam - Additional Findings Additional findings: * HEENT left nostril epistaxis, blood clot seen in the pharynx on the left side * Neck supple * Chest clear, permacath no bleeding or puss of skin changes noticed on the CT. * CVS tachycardia about 120/min sinus * PA soft, some bulge noticed more on the right side with coughing * Ext 1+ edema b/l, pulses present * [employer] awake oriented x3, no fnd. * Skin normal turgor Results - Vital Signs Recent Vital Signs: Last Vital Signs Temp 98.2 F 09/11/18 03:46 Pulse 102 H 09/11/18 03:46 Resp 18 09/11/18 03:46 BP 143/92 H 09/11/18 03:46 Pulse Ox 97 09/11/18 03:50 - Labs Result Diagrams: 09/11/18 00:36 09/11/18 00:36 Labs: Laboratory Results - last 24 hr 09/11/18 09/11/18 09/11/18 00:30 00:36 00:36 WBC 23.4 H D RBC 2.89 L Hgb 8.2 L D Hct 25.5 L MCV 88.0 D MCH 28.4 MCHC 32.3 L RDW 14.9 H Plt Count 6 L* MPV 13.3 H Neut % (Auto) 63.4 Lymph % (Auto) 26.7 [place] % (Auto) 8.1 Eos % (Auto) 1.3 Baso % (Auto) 0.5 Neut # (Auto) 14.8 H Lymph # (Auto) 6.2 H [place] # (Auto) 1.9 H Eos # (Auto) 0.3 Baso # (Auto) 0.1 Neutrophils % (Manual) 66 Lymphocytes % (Manual) 26 Reactive Lymphs % 1 H Monocytes % (Manual) 7 Platelet Estimate Markedly decreased L Giant Platelets Present PT 14.6 H INR 1.3 APTT 35 H pO2 81 H VBG pH 7.48 H VBG pCO2 22 L VBG HCO3 21.0 VBG Total CO2 17.1 L VBG O2 Sat (Calc) 99.1 H VBG Base Excess -5.0 L VBG Potassium 4.1 Sodium 141.0 Chloride 114.0 H Glucose 134 H Lactate 1.6 Potassium Carbon Dioxide Anion Gap BUN Creatinine Est GFR ( Amer) Est GFR (Non-Af Amer) Random Glucose Calcium Total Bilirubin AST ALT Alkaline Phosphatase NT-Pro-B Natriuret Pep Total Protein Albumin Globulin Albumin/Globulin Ratio Venous Blood Potassium 4.1 Urine Color Urine Clarity Urine pH Ur Specific [place] Urine Protein Urine Glucose (UA) Urine Ketones Urine Blood Urine Nitrate Urine Bilirubin Urine Urobilinogen Ur Leukocyte Esterase Urine WBC (Auto) Urine RBC (Auto) Urine Bacteria Stool Occult Blood Alcohol, Quantitative Blood Type Antibody Screen 09/11/18 09/11/18 09/11/18 00:36 00:36 00:43 WBC RBC Hgb Hct MCV MCH MCHC RDW Plt Count MPV Neut % (Auto) Lymph % (Auto) [place] % (Auto) Eos % (Auto) Baso % (Auto) Neut # (Auto) Lymph # (Auto) [place] # (Auto) Eos # (Auto) Baso # (Auto) Neutrophils % (Manual) Lymphocytes % (Manual) Reactive Lymphs % Monocytes % (Manual) Platelet Estimate Giant Platelets PT INR APTT pO2 VBG pH VBG pCO2 VBG HCO3 VBG Total CO2 VBG O2 Sat (Calc) VBG Base Excess VBG Potassium Sodium 145 Chloride 107 Glucose Lactate Potassium 4.4 Carbon Dioxide 16 L Anion Gap 26 H BUN 72 H Creatinine 10.7 H* D Est GFR ( Amer) 7 Est GFR (Non-Af Amer) 6 Random Glucose 136 H Calcium 9.5 Total Bilirubin 0.5 AST 14 L D ALT 20 L D Alkaline Phosphatase 137 H NT-Pro-B Natriuret Pep Total Protein 7.0 Albumin 4.0 Globulin 3.0 Albumin/Globulin Ratio 1.3 Venous Blood Potassium Urine Color Urine Clarity Urine pH Ur Specific [place] Urine Protein Urine Glucose (UA) Urine Ketones Urine Blood Urine Nitrate Urine Bilirubin Urine Urobilinogen Ur Leukocyte Esterase Urine WBC (Auto) Urine RBC (Auto) Urine Bacteria Stool Occult Blood Positive H Alcohol, Quantitative < 10 Blood Type O POSITIVE Antibody Screen Negative 09/11/18 09/11/18 00:49 03:14 WBC RBC Hgb Hct MCV MCH MCHC RDW Plt Count MPV Neut % (Auto) Lymph % (Auto) [place] % (Auto) Eos % (Auto) Baso % (Auto) Neut # (Auto) Lymph # (Auto) [place] # (Auto) Eos # (Auto) Baso # (Auto) Neutrophils % (Manual) Lymphocytes % (Manual) Reactive Lymphs % Monocytes % (Manual) Platelet Estimate Giant Platelets PT INR APTT pO2 VBG pH VBG pCO2 VBG HCO3 VBG Total CO2 VBG O2 Sat (Calc) VBG Base Excess VBG Potassium Sodium Chloride Glucose Lactate Potassium Carbon Dioxide Anion Gap BUN Creatinine Est GFR ( Amer) Est GFR (Non-Af Amer) Random Glucose Calcium Total Bilirubin AST ALT Alkaline Phosphatase NT-Pro-B Natriuret Pep 6900 H Total Protein Albumin Globulin Albumin/Globulin Ratio Venous Blood Potassium Urine Color Yellow Urine Clarity Clear Urine pH 6.0 Ur Specific [place] 1.014 Urine Protein 3+ H Urine Glucose (UA) Normal Urine Ketones Negative Urine Blood Negative Urine Nitrate Negative Urine Bilirubin Negative Urine Urobilinogen Normal Ur Leukocyte Esterase Neg Urine WBC (Auto) 4 Urine RBC (Auto) 3 Urine Bacteria Rare Stool Occult Blood Alcohol, Quantitative Blood Type Antibody Screen Assessment & Plan - Assessment and Plan (Free Text) Assessment: * Nausea/vomiting ? form gastritis/uremia, also contributed by the clot in the pharynx * ESRD not on HD * Leucocytosis * H/o perma cath staph infection still has same cath * Anemia likely from chronic disease rather acute loss * Epistaxis * H/o HUS * s/p splenectomy * Poor left ear hearing * Severe chronic thrombocytopenia * Makes urine * H/o HTN , on meds, elevated likely form discomfort nausea. * Right inguinal hernia Plan: * Empiric abx * IV PPI * Diuresis * Echo if has vegetation or pericardia effusion * Surgery if can change catheter * Home BP meds * Symptom control * Since bleeding has been small, vitals maintained patient could be treated in the telemetry * See orders for detail.
[2018-09-11 04:52] LABS: BASO # 0.1 K/uL (0.0-0.2); BASO % 0.3 % (0.0-2.0); EOS # 0.1 K/uL (0.0-0.7); EOS % 0.4 % (0.0-4.0); HEMOGLOBIN 7.3 g/dL (12.0-18.0); LYMPH # 2.5 K/uL (1.0-4.3); LYMPH % 13.7 % (20.0-40.0); MEAN CELL VOLUME 87.5 fL (80.0-94.0); MEAN CORPUSCULAR HEMOGLOBIN 28.3 pg (27.0-31.0); MEAN CORPUSCULAR HGB CONC 32.4 g/dL (33.0-37.0); MEAN PLATELET VOLUME 11.2 fL (7.2-11.7); MONO # 1.7 K/uL (0.0-0.8); MONO % 9.1 % (0.0-10.0); NEUT % 76.5 % (50.0-75.0); NRBC % 0.1 % (0.0-2.0); RBC 2.56 Mil/uL (4.40-5.90); RED CELL DISTRIBUTION WIDTH 14.6 % (11.5-14.5)
[2018-09-11 04:54] LABS: WHITE BLOOD COUNT 18.3 K/uL (4.8-10.8)
[2018-09-11 05:34] LABS: ALB/GLOB RATIO 1.2 (1.0-2.1); ALBUMIN 3.4 g/dL (3.5-5.0)
[2018-09-11] MEDS ORDERED: DiphenhydrAMINE 12.5 mg/5 ml LIQ UD (5 ml) PO ONE (09:01)
--- NOTE | 2018-09-11 09:15 | RAD ---
HISTORY: Cough COMPARISON: 04/04/2018. TECHNIQUE: Chest PA and lateral FINDINGS: LINES AND TUBES: Right-sided central venous catheter terminates at the cavoatrial junction. LUNG AND PLEURA: The lungs are well inflated. There is mild pulmonary venous congestion no pleural effusion or pneumothorax. HEART AND MEDIASTINUM: The heart is not enlarged. No aortic atherosclerotic calcification present. The hilar and mediastinal contours are within normal limits. SKELETAL STRUCTURES: The bony structures are within normal limits for the patient's age. VISUALIZED UPPER ABDOMEN: Normal. OTHER FINDINGS: None. IMPRESSION: Mild pulmonary venous congestion.
--- NOTE | 2018-09-11 09:23 | CP.PCM.PN ---
Subjective - Date & Time of Evaluation Date of Evaluation: 09/11/18 Time of Evaluation: 09:22 Objective - Vital Signs/Intake and Output Vital Signs (last 24 hours): Temp Pulse Resp BP Pulse Ox 98.9 F 100 H 20 148/84 98 09/11/18 07:00 09/11/18 07:00 09/11/18 07:00 09/11/18 07:00 09/11/18 07:00 - Medications Medications: Current Medications Amlodipine Besylate (Norvasc) 10 mg PO DAILY [facility] Carvedilol (Coreg) 6.25 mg PO BID [facility] Clonidine HCl (Catapres) 0.2 mg PO TID [facility] Hydralazine HCl (Apresoline) 25 mg PO Q8 [facility] Last Admin: 09/11/18 06:00 Dose: Not Given Pantoprazole Sodium 80 mg/ (Sodium Chloride) 100 mls @ 10 mls/hr IVPB .Q10H [facility] Last Admin: 09/11/18 04:22 Dose: 10 mls/hr Piperacillin Sod/Tazobactam (Sod 2.25 gm/ Sodium Chloride) 100 mls @ 200 mls/hr IVPB Q8H [facility]; Protocol Vancomycin HCl 1 gm/ Sodium (Chloride) 250 mls @ 166.7 mls/hr IVPB Q24H [facility]; Protocol - Labs Labs: 09/11/18 04:48 09/11/18 05:13 PT 14.6 SECONDS (9.7-12.2) H 09/11/18 00:36 INR 1.3 09/11/18 00:36 APTT 35 SECONDS (21-34) H 09/11/18 00:36
[2018-09-11] MEDS: Piperacillin/Tazobact 2.25 GM in Sodium Chloride 100 ML IVPB SCH ×4 (09:24→22:29)
--- NOTE | 2018-09-11 10:06 | CP.PCM.CON ---
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 The patient states that in the days leading up to admission began to have worsening nausea with multiple episodes of clear to bilious emesis. The day prior to admission he began vomiting violently and developed epistaxis from the left nare. Patient has had difficulty controlling the epistaxis with recurrent episodes of nausea/vomiting and continues to aggravate the left nare. He began spitting blood which was swallowed and came to the ED for further evaluation. Separately, there is note that his right permacath has previously been requested to come out due to infection and patient had refused this. Catheter is present at this time. Patient denies any fever, chills, sick contacts, weight loss, change in bowel habits. 12 system ROS performed and negative except where stated PMHx: See HPI PSHx: PD catheter placement, renal biopsy complicated by hemorrhage requiring IR embolization, right permacath, splenectomy FHx: Patient doesn't endorse and pertinent family history Social: Denies tobacco, EtOH or illicit drug use Endo: No prior endoscopic history Past Patient History - Infectious Disease Hx of Infectious Diseases: None - Past Medical History & Family History Past Medical History?: Yes - Past Social History Smoking Status: Never Smoked - CARDIAC Hx Hypertension: Yes - PULMONARY Hx Respiratory Disorders: No - NEUROLOGICAL Hx Neurological Disorder: No - HEENT Hx HEENT Problems: Yes Hx Deafness: (LEFT HEARING AID) Other/Comment: HEARING IMPAIRED - RENAL Hx Chronic Kidney Disease: Yes - ENDOCRINE/METABOLIC Hx Endocrine Disorders: No - HEMATOLOGICAL/ONCOLOGICAL Hx Blood Disorders: Yes Other/Comment: Thrombocytopenia - INTEGUMENTARY Hx Dermatological Problems: No - MUSCULOSKELETAL/RHEUMATOLOGICAL Hx Musculoskeletal Disorders: No - GASTROINTESTINAL Hx Gastrointestinal Disorders: No - GENITOURINARY/GYNECOLOGICAL Hx Genitourinary Disorders: No - PSYCHIATRIC Hx Substance Use: No - SURGICAL HISTORY Hx Surgeries: Yes Other/Comment: peritoneal dialysis catheter 05/2017. right chest wall permacath - ANESTHESIA Hx Anesthesia: Yes Hx Anesthesia Reactions: No Hx Malignant Hyperthermia: No Meds Allergies/Adverse Reactions: Allergies Allergy/AdvReac Type Severity Reaction Status Date / Time aspirin AdvReac ANAPHYLAXIS Verified 09/10/18 23:59 - Medications Medications: Current Medications Amlodipine Besylate (Norvasc) 10 mg PO DAILY [facility] Carvedilol (Coreg) 6.25 mg PO BID [facility] Clonidine HCl (Catapres) 0.2 mg PO TID [facility] Hydralazine HCl (Apresoline) 25 mg PO Q8 [facility] Last Admin: 09/11/18 06:00 Dose: Not Given Piperacillin Sod/Tazobactam (Sod 2.25 gm/ Sodium Chloride) 100 mls @ 200 mls/hr IVPB Q8H [facility]; Protocol Last Admin: 09/11/18 09:24 Dose: 200 mls/hr Vancomycin HCl 1 gm/ Sodium (Chloride) 250 mls @ 166.7 mls/hr IVPB Q24H [facility]; Protocol Physical Exam - Constitutional Appears: Other (vomiting, uncomfortable) - Eye Exam Eye Exam: EOMI, PERRL - ENT Exam ENT Exam: Mucous Membranes Dry Additional comments: dried blood at left nare - Respiratory Exam Respiratory Exam: Clear to Auscultation Bilateral. absent: Rales, Rhonchi, Wheezes - Cardiovascular Exam Cardiovascular Exam: RRR, +S1, +S2 - GI/Abdominal Exam GI & Abdominal Exam: Normal Bowel Sounds, Soft. absent: Distended, Firm, Guarding, Organomegaly, Rigid, Tenderness - Extremities Exam Extremities exam: Positive for: normal inspection. Negative for: pedal edema - Neurological Exam Neurological exam: Alert, Oriented x3 - Psychiatric Exam Psychiatric exam: Normal Affect, Normal Mood - Skin Skin Exam: Dry, Warm Results - Vital Signs Recent Vital Signs: Last Vital Signs Temp 99.5 F 09/11/18 09:23 Pulse 100 H 09/11/18 07:00 Resp 20 09/11/18 07:00 BP 148/84 09/11/18 07:00 Pulse Ox 98 09/11/18 07:00 - Labs Result Diagrams: 09/11/18 04:48 09/11/18 05:13 Labs: Laboratory Results - last 24 hr 09/11/18 09/11/18 09/11/18 00:30 00:36 00:36 WBC 23.4 H D RBC 2.89 L Hgb 8.2 L D Hct 25.5 L MCV 88.0 D MCH 28.4 MCHC 32.3 L RDW 14.9 H Plt Count 6 L* MPV 13.3 H Neut % (Auto) 63.4 Lymph % (Auto) 26.7 [place] % (Auto) 8.1 Eos % (Auto) 1.3 Baso % (Auto) 0.5 Neut # (Auto) 14.8 H Lymph # (Auto) 6.2 H [place] # (Auto) 1.9 H Eos # (Auto) 0.3 Baso # (Auto) 0.1 Neutrophils % (Manual) 66 Lymphocytes % (Manual) 26 Reactive Lymphs % 1 H Monocytes % (Manual) 7 Platelet Estimate Markedly decreased L Giant Platelets Present PT 14.6 H INR 1.3 APTT 35 H pO2 81 H VBG pH 7.48 H VBG pCO2 22 L VBG HCO3 21.0 VBG Total CO2 17.1 L VBG O2 Sat (Calc) 99.1 H VBG Base Excess -5.0 L VBG Potassium 4.1 Sodium 141.0 Chloride 114.0 H Glucose 134 H Lactate 1.6 Potassium Carbon Dioxide Anion Gap BUN Creatinine Est GFR ( Amer) Est GFR (Non-Af Amer) Random Glucose Calcium Total Bilirubin AST ALT Alkaline Phosphatase NT-Pro-B Natriuret Pep Total Protein Albumin Globulin Albumin/Globulin Ratio Venous Blood Potassium 4.1 Urine Color Urine Clarity Urine pH Ur Specific [place]wey Urine Protein Urine Glucose (UA) Urine Ketones Urine Blood Urine Nitrate Urine Bilirubin Urine Urobilinogen Ur Leukocyte Esterase Urine WBC (Auto) Urine RBC (Auto) Urine Bacteria Stool Occult Blood Alcohol, Quantitative Blood Type Antibody Screen 09/11/18 09/11/18 09/11/18 00:36 00:36 00:43 WBC RBC Hgb Hct MCV MCH MCHC RDW Plt Count MPV Neut % (Auto) Lymph % (Auto) [place] % (Auto) Eos % (Auto) Baso % (Auto) Neut # (Auto) Lymph # (Auto) [place] # (Auto) Eos # (Auto) Baso # (Auto) Neutrophils % (Manual) Lymphocytes % (Manual) Reactive Lymphs % Monocytes % (Manual) Platelet Estimate Giant Platelets PT INR APTT pO2 VBG pH VBG pCO2 VBG HCO3 VBG Total CO2 VBG O2 Sat (Calc) VBG Base Excess VBG Potassium Sodium 145 Chloride 107 Glucose Lactate Potassium 4.4 Carbon Dioxide 16 L Anion Gap 26 H BUN 72 H Creatinine 10.7 H* D Est GFR ( Amer) 7 Est GFR (Non-Af Amer) 6 Random Glucose 136 H Calcium 9.5 Total Bilirubin 0.5 AST 14 L D ALT 20 L D Alkaline Phosphatase 137 H NT-Pro-B Natriuret Pep Total Protein 7.0 Albumin 4.0 Globulin 3.0 Albumin/Globulin Ratio 1.3 Venous Blood Potassium Urine Color Urine Clarity Urine pH Ur Specific [place] Urine Protein Urine Glucose (UA) Urine Ketones Urine Blood Urine Nitrate Urine Bilirubin Urine Urobilinogen Ur Leukocyte Esterase Urine WBC (Auto) Urine RBC (Auto) Urine Bacteria Stool Occult Blood Positive H Alcohol, Quantitative < 10 Blood Type O POSITIVE Antibody Screen Negative 09/11/18 09/11/18 09/11/18 00:49 03:14 04:48 WBC 18.3 H RBC 2.56 L Hgb 7.3 L Hct 22.4 L MCV 87.5 MCH 28.3 MCHC 32.4 L RDW 14.6 H Plt Count 7 L* MPV 11.2 Neut % (Auto) 76.5 H Lymph % (Auto) 13.7 L [place] % (Auto) 9.1 Eos % (Auto) 0.4 Baso % (Auto) 0.3 Neut # (Auto) 14.0 H Lymph # (Auto) 2.5 [place] # (Auto) 1.7 H Eos # (Auto) 0.1 Baso # (Auto) 0.1 Neutrophils % (Manual) Lymphocytes % (Manual) Reactive Lymphs % Monocytes % (Manual) Platelet Estimate Giant Platelets PT INR APTT pO2 VBG pH VBG pCO2 VBG HCO3 VBG Total CO2 VBG O2 Sat (Calc) VBG Base Excess VBG Potassium Sodium Chloride Glucose Lactate Potassium Carbon Dioxide Anion Gap BUN Creatinine Est GFR ( Amer) Est GFR (Non-Af Amer) Random Glucose Calcium Total Bilirubin AST ALT Alkaline Phosphatase NT-Pro-B Natriuret Pep 6900 H Total Protein Albumin Globulin Albumin/Globulin Ratio Venous Blood Potassium Urine Color Yellow Urine Clarity Clear Urine pH 6.0 Ur Specific [place]wey 1.014 Urine Protein 3+ H Urine Glucose (UA) Normal Urine Ketones Negative Urine Blood Negative Urine Nitrate Negative Urine Bilirubin Negative Urine Urobilinogen Normal Ur Leukocyte Esterase Neg Urine WBC (Auto) 4 Urine RBC (Auto) 3 Urine Bacteria Rare Stool Occult Blood Alcohol, Quantitative Blood Type Antibody Screen 09/11/18 05:13 WBC RBC Hgb Hct MCV MCH MCHC RDW Plt Count MPV Neut % (Auto) Lymph % (Auto) [place] % (Auto) Eos % (Auto) Baso % (Auto) Neut # (Auto) Lymph # (Auto) [place] # (Auto) Eos # (Auto) Baso # (Auto) Neutrophils % (Manual) Lymphocytes % (Manual) Reactive Lymphs % Monocytes % (Manual) Platelet Estimate Giant Platelets PT INR APTT pO2 VBG pH VBG pCO2 VBG HCO3 VBG Total CO2 VBG O2 Sat (Calc) VBG Base Excess VBG Potassium Sodium 144 Chloride 111 H Glucose Lactate Potassium 4.5 Carbon Dioxide 17 L Anion Gap 21 H BUN 74 H Creatinine 10.1 H* Est GFR ( Amer) 7 Est GFR (Non-Af Amer) 6 Random Glucose 111 H Calcium 9.0 Total Bilirubin 0.5 AST 12 L ALT 23 Alkaline Phosphatase 108 NT-Pro-B Natriuret Pep Total Protein 6.3 Albumin 3.4 L Globulin 2.8 Albumin/Globulin Ratio 1.2 Venous Blood Potassium Urine Color Urine Clarity Urine pH Ur Specific [place] Urine Protein Urine Glucose (UA) Urine Ketones Urine Blood Urine Nitrate Urine Bilirubin Urine Urobilinogen Ur Leukocyte Esterase Urine WBC (Auto) Urine RBC (Auto) Urine Bacteria Stool Occult Blood Alcohol, Quantitative Blood Type Antibody Screen Assessment & Plan - Assessment and Plan (Free Text) Assessment: Patient is a 32yo male with PMHx significant for ESRD, previously on PD and HD but patient decided to stop all therapy ~5 months ago, hypertension, 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, thrombocytopenia as a result of aHUS who presented to the ED with persistent nausea, vomiting and epistaxis -Epistaxis -Nausea/vomiting -Atypical HUS with pronounced thrombocytopenia Plan: -Anemia likely related to chronic kidney disease and acute epistaxis -D/C PPI therapy as do not suspect upper GI bleeding and this can contribute to further platelet dysfunction - switch to H2 alycia as needed -Recommend urgent platelet transfusion -Recommend ENT evaluation for nasal packing; hematology consultation for thrombocytopenia/aHUS -No plan for endoscopic evaluation - Date & Time Date: 09/11/18 Time: 07:10 <Fidencio Elliott - Last Filed: 09/11/18 14:39> Meds - Medications Medications: Current Medications Amlodipine Besylate (Norvasc) 10 mg PO DAILY [facility] Last Admin: 09/11/18 10:38 Dose: 10 mg Carvedilol (Coreg) 6.25 mg PO BID [facility] Last Admin: 09/11/18 10:38 Dose: 6.25 mg Clonidine HCl (Catapres) 0.2 mg PO TID [facility] Last Admin: 09/11/18 13:29 Dose: 0.2 mg Hydralazine HCl (Apresoline) 25 mg PO Q8 [facility] Last Admin: 09/11/18 13:29 Dose: 25 mg Piperacillin Sod/Tazobactam (Sod 2.25 gm/ Sodium Chloride) 100 mls @ 200 mls/hr IVPB Q8H [facility]; Protocol Last Admin: 09/11/18 09:24 Dose: 200 mls/hr Vancomycin HCl 1 gm/ Sodium (Chloride) 250 mls @ 166.7 mls/hr IVPB Q24H [facility]; Protocol Results - Vital Signs Recent Vital Signs: Last Vital Signs Temp 98.5 F 09/11/18 13:26 Pulse 88 09/11/18 13:26 Resp 20 09/11/18 13:26 BP 129/77 09/11/18 13:26 Pulse Ox 98 09/11/18 07:00 - Labs Result Diagrams: 09/11/18 04:48 09/11/18 05:13 Labs: Laboratory Results - last 24 hr 09/11/18 09/11/18 09/11/18 00:30 00:36 00:36 WBC 23.4 H D RBC 2.89 L Hgb 8.2 L D Hct 25.5 L MCV 88.0 D MCH 28.4 MCHC 32.3 L RDW 14.9 H Plt Count 6 L* MPV 13.3 H Neut % (Auto) 63.4 Lymph % (Auto) 26.7 [place] % (Auto) 8.1 Eos % (Auto) 1.3 Baso % (Auto) 0.5 Neut # (Auto) 14.8 H Lymph # (Auto) 6.2 H [place] # (Auto) 1.9 H Eos # (Auto) 0.3 Baso # (Auto) 0.1 Neutrophils % (Manual) 66 Lymphocytes % (Manual) 26 Reactive Lymphs % 1 H Monocytes % (Manual) 7 Platelet Estimate Markedly decreased L Giant Platelets Present PT 14.6 H INR 1.3 APTT 35 H pO2 81 H VBG pH 7.48 H VBG pCO2 22 L VBG HCO3 21.0 VBG Total CO2 17.1 L VBG O2 Sat (Calc) 99.1 H VBG Base Excess -5.0 L VBG Potassium 4.1 Sodium 141.0 Chloride 114.0 H Glucose 134 H Lactate 1.6 Potassium Carbon Dioxide Anion Gap BUN Creatinine Est GFR ( Amer) Est GFR (Non-Af Amer) Random Glucose Calcium Total Bilirubin AST ALT Alkaline Phosphatase NT-Pro-B Natriuret Pep Total Protein Albumin Globulin Albumin/Globulin Ratio Venous Blood Potassium 4.1 Urine Color Urine Clarity Urine pH Ur Specific [place] Urine Protein Urine Glucose (UA) Urine Ketones Urine Blood Urine Nitrate Urine Bilirubin Urine Urobilinogen Ur Leukocyte Esterase Urine WBC (Auto) Urine RBC (Auto) Urine Bacteria Stool Occult Blood Alcohol, Quantitative Blood Type Antibody Screen 09/11/18 09/11/18 09/11/18 00:36 00:36 00:43 WBC RBC Hgb Hct MCV MCH MCHC RDW Plt Count MPV Neut % (Auto) Lymph % (Auto) [place] % (Auto) Eos % (Auto) Baso % (Auto) Neut # (Auto) Lymph # (Auto) [place] # (Auto) Eos # (Auto) Baso # (Auto) Neutrophils % (Manual) Lymphocytes % (Manual) Reactive Lymphs % Monocytes % (Manual) Platelet Estimate Giant Platelets PT INR APTT pO2 VBG pH VBG pCO2 VBG HCO3 VBG Total CO2 VBG O2 Sat (Calc) VBG Base Excess VBG Potassium Sodium 145 Chloride 107 Glucose Lactate Potassium 4.4 Carbon Dioxide 16 L Anion Gap 26 H BUN 72 H Creatinine 10.7 H* D Est GFR ( Amer) 7 Est GFR (Non-Af Amer) 6 Random Glucose 136 H Calcium 9.5 Total Bilirubin 0.5 AST 14 L D ALT 20 L D Alkaline Phosphatase 137 H NT-Pro-B Natriuret Pep Total Protein 7.0 Albumin 4.0 Globulin 3.0 Albumin/Globulin Ratio 1.3 Venous Blood Potassium Urine Color Urine Clarity Urine pH Ur Specific [place] Urine Protein Urine Glucose (UA) Urine Ketones Urine Blood Urine Nitrate Urine Bilirubin Urine Urobilinogen Ur Leukocyte Esterase Urine WBC (Auto) Urine RBC (Auto) Urine Bacteria Stool Occult Blood Positive H Alcohol, Quantitative < 10 Blood Type O POSITIVE Antibody Screen Negative 09/11/18 09/11/18 09/11/18 00:49 03:14 04:48 WBC 18.3 H RBC 2.56 L Hgb 7.3 L Hct 22.4 L MCV 87.5 MCH 28.3 MCHC 32.4 L RDW 14.6 H Plt Count 7 L* MPV 11.2 Neut % (Auto) 76.5 H Lymph % (Auto) 13.7 L [place] % (Auto) 9.1 Eos % (Auto) 0.4 Baso % (Auto) 0.3 Neut # (Auto) 14.0 H Lymph # (Auto) 2.5 [place] # (Auto) 1.7 H Eos # (Auto) 0.1 Baso # (Auto) 0.1 Neutrophils % (Manual) Lymphocytes % (Manual) Reactive Lymphs % Monocytes % (Manual) Platelet Estimate Giant Platelets PT INR APTT pO2 VBG pH VBG pCO2 VBG HCO3 VBG Total CO2 VBG O2 Sat (Calc) VBG Base Excess VBG Potassium Sodium Chloride Glucose Lactate Potassium Carbon Dioxide Anion Gap BUN Creatinine Est GFR ( Amer) Est GFR (Non-Af Amer) Random Glucose Calcium Total Bilirubin AST ALT Alkaline Phosphatase NT-Pro-B Natriuret Pep 6900 H Total Protein Albumin Globulin Albumin/Globulin Ratio Venous Blood Potassium Urine Color Yellow Urine Clarity Clear Urine pH 6.0 Ur Specific [place] 1.014 Urine Protein 3+ H Urine Glucose (UA) Normal Urine Ketones Negative Urine Blood Negative Urine Nitrate Negative Urine Bilirubin Negative Urine Urobilinogen Normal Ur Leukocyte Esterase Neg Urine WBC (Auto) 4 Urine RBC (Auto) 3 Urine Bacteria Rare Stool Occult Blood Alcohol, Quantitative Blood Type Antibody Screen 09/11/18 05:13 WBC RBC Hgb Hct MCV MCH MCHC RDW Plt Count MPV Neut % (Auto) Lymph % (Auto) [place] % (Auto) Eos % (Auto) Baso % (Auto) Neut # (Auto) Lymph # (Auto) [place] # (Auto) Eos # (Auto) Baso # (Auto) Neutrophils % (Manual) Lymphocytes % (Manual) Reactive Lymphs % Monocytes % (Manual) Platelet Estimate Giant Platelets PT INR APTT pO2 VBG pH VBG pCO2 VBG HCO3 VBG Total CO2 VBG O2 Sat (Calc) VBG Base Excess VBG Potassium Sodium 144 Chloride 111 H Glucose Lactate Potassium 4.5 Carbon Dioxide 17 L Anion Gap 21 H BUN 74 H Creatinine 10.1 H* Est GFR ( Amer) 7 Est GFR (Non-Af Amer) 6 Random Glucose 111 H Calcium 9.0 Total Bilirubin 0.5 AST 12 L ALT 23 Alkaline Phosphatase 108 NT-Pro-B Natriuret Pep Total Protein 6.3 Albumin 3.4 L Globulin 2.8 Albumin/Globulin Ratio 1.2 Venous Blood Potassium Urine Color Urine Clarity Urine pH Ur Specific [place] Urine Protein Urine Glucose (UA) Urine Ketones Urine Blood Urine Nitrate Urine Bilirubin Urine Urobilinogen Ur Leukocyte Esterase Urine WBC (Auto) Urine RBC (Auto) Urine Bacteria Stool Occult Blood Alcohol, Quantitative Blood Type Antibody Screen Attending/Attestation - Attestation I have personally seen and examined this patient.: Yes I have fully participated in the care of the patient.: Yes I have reviewed all pertinent clinical information: Yes Notes (Text): 09/11/18 14:33 I have seen and examined patient with GI fellow. Agree with above documentation with the following additions. In brief, this is a 32 year old male with history of HUS, ESRD on HD, HTN, thrombocytopenia, who [facility] with complaint of nausea, vomiting, and epistaxis. He has apparently missed multiple months of dialysis and reports progresive nausea and vomiting for the past three days. Vomiting episodes have been accompanied with severe retching with res ulting epistaxis. He also notes history of thrombocytopenia previously being managed with eculizumab. Additionally, he is aware of a permacath infection but has not taken appropriate steps to address this issue. He denies abdominal pain, fever/chills, weight loss, rectal bleeding. No prior endoscopic evaluation. ESRD on HD HUS with secondary thrombocytopenia HTN Nausea, vomiting - likely secondary to uremia Epistaxis Anemia - NPO - Would stop PPI drip and instead use IV H2 alycia therapy given profound thrombocytopenia. No concern for underlying liver disease, patient without focal hepatic abnormalities on CT in December 2017. - Suggest ENT evaluation given ongoing epistaxis - Follow up hematology recommendations given thrombocytopenia - Continue with antibiotic therapy, follow up ID and surgical recommendations for infected permacath - No planned GI interventions at this time, will sign off case. Please reconsult as necessary, thank you.
[2018-09-11] MEDS ORDERED: methylPREDNISolone 125 MG in Sodium Chloride 0.9% 100 ML IVPB ONE (10:59)
[2018-09-11] MEDS ORDERED: Desmopressin 20 MCG in Sodium Chloride 0.9% 50 ML IV ONE (12:00)
--- NOTE | 2018-09-11 12:48 | CARD ---
APPROVED REPORT Date of service: 09/11/2018 EKG Measurement Heart [id number] <Conclusion> Sinus tachycardia Otherwise normal ECG
--- NOTE | 2018-09-11 12:58 | CP.PCM.CON ---
History of Present Illness - History of Present Illness History of Present Illness: 32 Y w/ PMHx: HTN, CKD, ESRD, known atypical HUS, thrombocytopenia presents to ED with vomiting. Patient states that since this morning he has had several episodes of non bloody, non bilious vomiting. He states he also has SOB with th kelly vomiting episodes. Patient denies any sick contacts. recent travel, outside food he may have had that could have caused these symptoms. Patient additionally states he had epistaxis following the vomiting this AM, which has no resolved. Patient denies fevers, chills, chest pain, headaches, vision changes. Well known to me; refused dialysis last few months. In ED patient was found to be occult blood +, with a hemoglobin in the 8s. Patient states he stopped attending his dialysis for the last several months. Patient has followed up with Dr. Villasenor 2 months prior. PMD: [facility] PMHx: PMHx: HTN, CKD, ESRD, known atypical HUS, thrombocytopenia Meds: Clonidine 0.2 po bid, norvasc 10mg po daily, coreg 6.25mg po bid, and hydralazine 25mg po q8 Allergies: Aspirin (PMD informed him not to take it due to platelets, not a true allergy) PSHx: PD cath placed 05/2017, renal biopsy 03/2017, right chest permacath placed 03/2017, splenectomy at 4 y/o Nephrology: Dr. Villasenor Vascular: Dr. Quach Heme-Onc: Dr. Benites Review of Systems - Constitutional Constitutional: Lethargy, Weakness - EENT Eyes: absent: As Per HPI, Blind Spots, Blurred Vision, Change in Vision, Decreased Night Vision, Diplopia, Discharge, Dry Eye, Exophthalmos, Floaters, Irritation, Itchy Eyes, Loss of Peripheral Vision, Pain, Photophobia, Requires Corrective Lenses, Sees Flashes, Spots in Vision, Tunnel Vision, Other Visual Disturbances, Loss of Vision, Other Ears: absent: As Per HPI, Decreased Hearing, Ear Discharge, Ear Pain, Tinnitus, Abnormal Hearing, Disequilibrium, Dizziness, Other Nose/Mouth/Throat: absent: As Per HPI, Epistaxis, Nasal Congestion, Nasal Discharge, Nasal Obstruction, Nasal Trauma, Nose Pain, Post Nasal Drip, Sinus Pain, Sinus Pressure, Bleeding Gums, Change in Voice, Dental Pain, Dry Mouth, Dysphagia, Halitosis, Hoarsness, Lip Swelling, Mouth Lesions, Mouth Pain, Odynophagia, Sore Throat, Throat Swelling, Tongue Swelling, Facial Pain, Neck Pain, Neck Mass, Other - Cardiovascular Cardiovascular: Dyspnea on Exertion, Leg Edema - Respiratory Respiratory: Cough, Dyspnea on Exertion - Gastrointestinal Gastrointestinal: Nausea, Vomiting - Musculoskeletal Musculoskeletal: Muscle Cramps, Muscle Weakness, Myalgias - Integumentary Integumentary: absent: As Per HPI, Acne, Alopecia, Bleeding Lesions, Change in Hair, Change in Nails, Change in Pigmentation, Changing Lesions, Dry Skin, Erythema, Furuncle, Hirsutism, Lesions, New Lesions, Non-Healing Lesions, Photosensitivity, Pruritus, Rash, Skin Pain, Skin Ulcer, Sores, Striae, Swelling, Unusual Bruising, Wounds, Jaundice, Other - Neurological Neurological: absent: As Per HPI, Abnormal Gait, Abnormal Hearing, Abnormal Movements, Abnormal Speech, Behavioral Changes, Burning Sensations, Confusion, Convulsions, Disequilibrium, Dizziness, Numbness, Focal Weakness, Frequent Falls, Headaches, Lack of Coordination, Loss of Vision, Memory Loss, Pares thesias, Radicular Pain, Restless Legs, Sensory Deficit, Syncope, Tingling, Tremor, Vertigo, Weakness, Other Visual Disturbances, Other - Hematologic/Lymphatic Hematologic: As Per HPI, Easy Bruising Past Patient History - Infectious Disease Hx of Infectious Diseases: None - Past Medical History & Family History Past Medical History?: Yes Past Family History: Reviewed and not pertinent - Past Social History Smoking Status: Never Smoked Chewing Tobacco Use: No Cigar Use: No Alcohol: None Drugs: Denies Home Situation {Lives}: Alone - CARDIAC Hx Hypertension: Yes - PULMONARY Hx Respiratory Disorders: No - NEUROLOGICAL Hx Neurological Disorder: No - HEENT Hx HEENT Problems: Yes Hx Deafness: (LEFT HEARING AID) Other/Comment: HEARING IMPAIRED - RENAL Hx Chronic Kidney Disease: Yes - ENDOCRINE/METABOLIC Hx Endocrine Disorders: No - HEMATOLOGICAL/ONCOLOGICAL Hx Blood Disorders: Yes Other/Comment: Thrombocytopenia - INTEGUMENTARY Hx Dermatological Problems: No - MUSCULOSKELETAL/RHEUMATOLOGICAL Hx Musculoskeletal Disorders: No - GASTROINTESTINAL Hx Gastrointestinal Disorders: No - GENITOURINARY/GYNECOLOGICAL Hx Genitourinary Disorders: No - PSYCHIATRIC Hx Substance Use: No - SURGICAL HISTORY Hx Surgeries: Yes Other/Comment: peritoneal dialysis catheter 05/2017. right chest wall permacath - ANESTHESIA Hx Anesthesia: Yes Hx Anesthesia Reactions: No Hx Malignant Hyperthermia: No Meds Allergies/Adverse Reactions: Allergies Allergy/AdvReac Type Severity Reaction Status Date / Time aspirin AdvReac ANAPHYLAXIS Verified 09/10/18 23:59 - Medications Medications: Current Medications Amlodipine Besylate (Norvasc) 10 mg PO DAILY [facility] Last Admin: 09/11/18 10:38 Dose: 10 mg Carvedilol (Coreg) 6.25 mg PO BID [facility] Last Admin: 09/11/18 10:38 Dose: 6.25 mg Clonidine HCl (Catapres) 0.2 mg PO TID [facility] Last Admin: 09/11/18 10:38 Dose: 0.2 mg Hydralazine HCl (Apresoline) 25 mg PO Q8 [facility] Last Admin: 09/11/18 06:00 Dose: Not Given Piperacillin Sod/Tazobactam (Sod 2.25 gm/ Sodium Chloride) 100 mls @ 200 mls/hr IVPB Q8H [facility]; Protocol Last Admin: 09/11/18 09:24 Dose: 200 mls/hr Vancomycin HCl 1 gm/ Sodium (Chloride) 250 mls @ 166.7 mls/hr IVPB Q24H [facility]; Protocol Physical Exam - Constitutional Appears: No Acute Distress, Chronically Ill - Head Exam Head Exam: ATRAUMATIC, NORMAL INSPECTION - Eye Exam Eye Exam: EOMI, Normal appearance - Neck Exam Neck exam: Positive for: Normal Inspection. Negative for: Tenderness - Respiratory Exam Respiratory Exam: Rhonchi, NORMAL BREATHING PATTERN - Cardiovascular Exam Cardiovascular Exam: REGULAR RHYTHM, +S1 - GI/Abdominal Exam GI & Abdominal Exam: Soft. absent: Tenderness - Extremities Exam Extremities exam: Positive for: pedal edema, tenderness - Neurological Exam Neurological exam: Alert, Oriented x3 - Skin Skin Exam: Dry, Warm Results - Vital Signs Recent Vital Signs: Last Vital Signs Temp 98.9 F 09/11/18 11:30 Pulse 109 H 09/11/18 11:30 Resp 18 09/11/18 11:30 BP 158/90 H 09/11/18 11:30 Pulse Ox 98 09/11/18 07:00 - Labs Result Diagrams: 09/11/18 04:48 09/11/18 05:13 Labs: Laboratory Results - last 24 hr 10/29/18 10/29/18 10/29/18 00:30 00:36 00:36 WBC 23.4 H D RBC 2.89 L Hgb 8.2 L D Hct 25.5 L MCV 88.0 D MCH 28.4 MCHC 32.3 L RDW 14.9 H Plt Count 6 L* MPV 13.3 H Neut % (Auto) 63.4 Lymph % (Auto) 26.7 [place] % (Auto) 8.1 Eos % (Auto) 1.3 Baso % (Auto) 0.5 Neut # (Auto) 14.8 H Lymph # (Auto) 6.2 H [place] # (Auto) 1.9 H Eos # (Auto) 0.3 Baso # (Auto) 0.1 Neutrophils % (Manual) 66 Lymphocytes % (Manual) 26 Reactive Lymphs % 1 H Monocytes % (Manual) 7 Platelet Estimate Markedly decreased L Giant Platelets Present PT 14.6 H INR 1.3 APTT 35 H pO2 81 H VBG pH 7.48 H VBG pCO2 22 L VBG HCO3 21.0 VBG Total CO2 17.1 L VBG O2 Sat (Calc) 99.1 H VBG Base Excess -5.0 L VBG Potassium 4.1 Sodium 141.0 Chloride 114.0 H Glucose 134 H Lactate 1.6 Potassium Carbon Dioxide Anion Gap BUN Creatinine Est GFR ( Amer) Est GFR (Non-Af Amer) Random Glucose Calcium Total Bilirubin AST ALT Alkaline Phosphatase NT-Pro-B Natriuret Pep Total Protein Albumin Globulin Albumin/Globulin Ratio Venous Blood Potassium 4.1 Urine Color Urine Clarity Urine pH Ur Specific [place] Urine Protein Urine Glucose (UA) Urine Ketones Urine Blood Urine Nitrate Urine Bilirubin Urine Urobilinogen Ur Leukocyte Esterase Urine WBC (Auto) Urine RBC (Auto) Urine Bacteria Stool Occult Blood Alcohol, Quantitative Blood Type Antibody Screen 09/11/18 09/11/18 09/11/18 00:36 00:36 00:43 WBC RBC Hgb Hct MCV MCH MCHC RDW Plt Count MPV Neut % (Auto) Lymph % (Auto) [place] % (Auto) Eos % (Auto) Baso % (Auto) Neut # (Auto) Lymph # (Auto) [place] # (Auto) Eos # (Auto) Baso # (Auto) Neutrophils % (Manual) Lymphocytes % (Manual) Reactive Lymphs % Monocytes % (Manual) Platelet Estimate Giant Platelets PT INR APTT pO2 VBG pH VBG pCO2 VBG HCO3 VBG Total CO2 VBG O2 Sat (Calc) VBG Base Excess VBG Potassium Sodium 145 Chloride 107 Glucose Lactate Potassium 4.4 Carbon Dioxide 16 L Anion Gap 26 H BUN 72 H Creatinine 10.7 H* D Est GFR ( Amer) 7 Est GFR (Non-Af Amer) 6 Random Glucose 136 H Calcium 9.5 Total Bilirubin 0.5 AST 14 L D ALT 20 L D Alkaline Phosphatase 137 H NT-Pro-B Natriuret Pep Total Protein 7.0 Albumin 4.0 Globulin 3.0 Albumin/Globulin Ratio 1.3 Venous Blood Potassium Urine Color Urine Clarity Urine pH Ur Specific [place] Urine Protein Urine Glucose (UA) Urine Ketones Urine Blood Urine Nitrate Urine Bilirubin Urine Urobilinogen Ur Leukocyte Esterase Urine WBC (Auto) Urine RBC (Auto) Urine Bacteria Stool Occult Blood Positive H Alcohol, Quantitative < 10 Blood Type O POSITIVE Antibody Screen Negative 09/11/18 09/11/18 09/11/18 00:49 03:14 04:48 WBC 18.3 H RBC 2.56 L Hgb 7.3 L Hct 22.4 L MCV 87.5 MCH 28.3 MCHC 32.4 L RDW 14.6 H Plt Count 7 L* MPV 11.2 Neut % (Auto) 76.5 H Lymph % (Auto) 13.7 L [place] % (Auto) 9.1 Eos % (Auto) 0.4 Baso % (Auto) 0.3 Neut # (Auto) 14.0 H Lymph # (Auto) 2.5 [place] # (Auto) 1.7 H Eos # (Auto) 0.1 Baso # (Auto) 0.1 Neutrophils % (Manual) Lymphocytes % (Manual) Reactive Lymphs % Monocytes % (Manual) Platelet Estimate Giant Platelets PT INR APTT pO2 VBG pH VBG pCO2 VBG HCO3 VBG Total CO2 VBG O2 Sat (Calc) VBG Base Excess VBG Potassium Sodium Chloride Glucose Lactate Potassium Carbon Dioxide Anion Gap BUN Creatinine Est GFR ( Amer) Est GFR (Non-Af Amer) Random Glucose Calcium Total Bilirubin AST ALT Alkaline Phosphatase NT-Pro-B Natriuret Pep 6900 H Total Protein Albumin Globulin Albumin/Globulin Ratio Venous Blood Potassium Urine Color Yellow Urine Clarity Clear Urine pH 6.0 Ur Specific [place] 1.014 Urine Protein 3+ H Urine Glucose (UA) Normal Urine Ketones Negative Urine Blood Negative Urine Nitrate Negative Urine Bilirubin Negative Urine Urobilinogen Normal Ur Leukocyte Esterase Neg Urine WBC (Auto) 4 Urine RBC (Auto) 3 Urine Bacteria Rare Stool Occult Blood Alcohol, Quantitative Blood Type Antibody Screen 09/11/18 05:13 WBC RBC Hgb Hct MCV MCH MCHC RDW Plt Count MPV Neut % (Auto) Lymph % (Auto) [place] % (Auto) Eos % (Auto) Baso % (Auto) Neut # (Auto) Lymph # (Auto) [place] # (Auto) Eos # (Auto) Baso # (Auto) Neutrophils % (Manual) Lymphocytes % (Manual) Reactive Lymphs % Monocytes % (Manual) Platelet Estimate Giant Platelets PT INR APTT pO2 VBG pH VBG pCO2 VBG HCO3 VBG Total CO2 VBG O2 Sat (Calc) VBG Base Excess VBG Potassium Sodium 144 Chloride 111 H Glucose Lactate Potassium 4.5 Carbon Dioxide 17 L Anion Gap 21 H BUN 74 H Creatinine 10.1 H* Est GFR ( Amer) 7 Est GFR (Non-Af Amer) 6 Random Glucose 111 H Calcium 9.0 Total Bilirubin 0.5 AST 12 L ALT 23 Alkaline Phosphatase 108 NT-Pro-B Natriuret Pep Total Protein 6.3 Albumin 3.4 L Globulin 2.8 Albumin/Globulin Ratio 1.2 Venous Blood Potassium Urine Color Urine Clarity Urine pH Ur Specific [place] Urine Protein Urine Glucose (UA) Urine Ketones Urine Blood Urine Nitrate Urine Bilirubin Urine Urobilinogen Ur Leukocyte Esterase Urine WBC (Auto) Urine RBC (Auto) Urine Bacteria Stool Occult Blood Alcohol, Quantitative Blood Type Antibody Screen Assessment & Plan (1) Gastrointestinal hemorrhage Status: Acute (2) Thrombocytopenia Status: Acute Priority: High (3) Dialysis catheter clot or failure Status: Acute (4) ESRD (end stage renal disease) Status: Acute (5) Hemolytic uremic syndrome Status: Acute (6) Hypertensive chronic kidney disease with stage 5 chronic kidney disease or end stage renal disease Status: Acute (7) Thrombocytopenia Status: Acute - Assessment and Plan (Free Text) Plan: needs new catheter Restart HD
--- NOTE | 2018-09-11 14:47 | CP.PCM.PN ---
<Jeffery Lind - Last Filed: 09/11/18 14:47> Subjective - Date & Time of Evaluation Date of Evaluation: 09/11/18 Time of Evaluation: 14:47 - Subjective Subjective: Jeffery Lind Medicine progress note for Dr. Snyder Patient was seen and examined at bedside. Patient is complaining of a nosebleed since this morning and sore throat secondary to the nosebleeds. He is also complaining of nausea and vomiting. Patient is getting 2 units of PRBC. Patient denies having any fevers, chills, cough, shortness of breath, chest pain, abdominal pain, diarrhea, or urinary symptoms. Objective - Vital Signs/Intake and Output Vital Signs (last 24 hours): Temp Pulse Resp BP Pulse Ox 98.5 F 88 20 129/77 98 09/11/18 13:26 09/11/18 13:26 09/11/18 13:26 09/11/18 13:26 09/11/18 07:00 Intake and Output: 09/11/18 09/11/18 06:59 18:59 Intake Total 400 Balance 400 - Medications Medications: Current Medications Amlodipine Besylate (Norvasc) 10 mg PO DAILY [facility] Last Admin: 09/11/18 10:38 Dose: 10 mg Carvedilol (Coreg) 6.25 mg PO BID [facility] Last Admin: 09/11/18 10:38 Dose: 6.25 mg Clonidine HCl (Catapres) 0.2 mg PO TID [facility] Last Admin: 09/11/18 13:29 Dose: 0.2 mg Hydralazine HCl (Apresoline) 25 mg PO Q8 [facility] Last Admin: 09/11/18 13:29 Dose: 25 mg Piperacillin Sod/Tazobactam (Sod 2.25 gm/ Sodium Chloride) 100 mls @ 200 mls/hr IVPB Q8H [facility]; Protocol Last Admin: 09/11/18 09:24 Dose: 200 mls/hr Vancomycin HCl 1 gm/ Sodium (Chloride) 250 mls @ 166.7 mls/hr IVPB Q24H [facility]; Protocol - Labs Labs: 09/11/18 04:48 09/11/18 05:13 PT 14.6 SECONDS (9.7-12.2) H 09/11/18 00:36 INR 1.3 09/11/18 00:36 APTT 35 SECONDS (21-34) H 09/11/18 00:36 - Additional Findings Additional findings: - Constitutional Appears: Other (uncomfortable) - Eye Exam Eye Exam: EOMI, PERRL - ENT Exam ENT Exam: Mucous Membranes Dry Additional comments: dried blood at left nare - Respiratory Exam Respiratory Exam: Clear to Auscultation Bilateral. absent: Rales, Rhonchi, Wheezes - Cardiovascular Exam Cardiovascular Exam: RRR, +S1, +S2 - GI/Abdominal Exam GI & Abdominal Exam: Normal Bowel Sounds, Soft. absent: Distended, Firm, Guarding, Organomegaly, Rigid, Tenderness - Extremities Exam Extremities exam: Positive for: normal inspection. Negative for: pedal edema - Neurological Exam Neurological exam: Alert, Oriented x3 - Psychiatric Exam Psychiatric exam: Normal Affect, Normal Mood - Skin Skin Exam: Dry, Warm Some petechiae noted on the chest Assessment and Plan - Assessment and Plan (Free Text) Assessment: Patient is a 32 year old male with PMHx significant for ESRD (previously on PD and HD but patient decided to stop all therapy about 4 months ago), hypertension, 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 Plan: Severe Thrombocytopenia: - Heme/Onc consulted, Dr. Benites - Ordered 2 units of platelets to be transfused - Give Solumedrol IV 125mg and Desmopressin IV 20mg before platelet transfusions, as per heme/onc - Platelet count 7,000 today - Continue to monitor Possible GI bleed: - Gastroenterology consulted, Dr. Elliott - Hgb 8.2---> 7.3 - Transfuse PRBCs X 2 units - Tylenol and Benadryl given before transfusions - Unlikely upper GI bleed as per Dr. Elliott- No GI interventions at this time - NPO Sepsis: - Likely secondary to catheter infection - In ED, patient was given Zosyn 2.25gm and Vancomycin 1gm IV, Gentamicin 270mg X1 - C/w Vancomycin 1gm IV Q24 - C/w Zosyn 2.25gm Q8 - F/u random Vancomycin levels in the am - Surgery consulted, Dr. Quach for possible permacath replacement - F/u Blood cultures - Chest Xray (09/11): mild pulmonary venous congestion ESRD: - BUN/Cr: 74/10.1 - elevated from previous admission of Cr of 7s - Nephrology consulted , Dr. Villasenor - Currently not on dialysis, still producing urine - Patient will require a new permacath and HD as per nephrology - Plan for HD MWF - Vascular surgery, Dr. Quach consulted - Unable to do removal and replacement of a new permacath due to severe thrombocytopenia Atypical hemolytic uremic syndrome: - Hx of atypical HUS and thrombocytopenia. - F/u Heme/Onc, Dr. Benites recommendations - Renal biopsy confirmed in prior hospitalization noted in the EMR Hypertension: - C/w home medication: -Clonidine 0.2mg PO BID -Amlodipine 10mg PO daily -Carvedilol 6.25 mg PO BID -Hydralazine 25mg PO Q8H - Continue to monitor Prophylactic measure - DVT: No chemical anticoagulation due to severe thrombocytopenia - GI: not indicated due to severe thrombocytopenia - NPO for now until platelets higher Case discussed with Dr. Lillian Lind PGY-1 <Romeo Snyder H - Last Filed: 09/11/18 17:41> Objective - Vital Signs/Intake and Output Vital Signs (last 24 hours): Temp Pulse Resp BP Pulse Ox 98 F 90 20 125/71 98 09/11/18 15:48 09/11/18 15:48 09/11/18 15:48 09/11/18 15:48 09/11/18 07:00 Intake and Output: 09/11/18 09/11/18 06:59 18:59 Intake Total 900 Output Total 400 Balance 500 - Medications Medications: Current Medications Amlodipine Besylate (Norvasc) 10 mg PO DAILY [facility] Last Admin: 09/11/18 10:38 Dose: 10 mg Carvedilol (Coreg) 6.25 mg PO BID [facility] Last Admin: 09/11/18 10:38 Dose: 6.25 mg Clonidine HCl (Catapres) 0.2 mg PO TID [facility] Last Admin: 09/11/18 13:29 Dose: 0.2 mg Hydralazine HCl (Apresoline) 25 mg PO Q8 [facility] Last Admin: 09/11/18 13:29 Dose: 25 mg Piperacillin Sod/Tazobactam (Sod 2.25 gm/ Sodium Chloride) 100 mls @ 200 mls/hr IVPB Q8H [facility]; Protocol Last Admin: 09/11/18 09:24 Dose: 200 mls/hr Vancomycin HCl 1 gm/ Sodium (Chloride) 250 mls @ 166.7 mls/hr IVPB Q24H [facility]; Protocol - Labs Labs: 09/11/18 04:48 09/11/18 05:13 PT 14.6 SECONDS (9.7-12.2) H 09/11/18 00:36 INR 1.3 09/11/18 00:36 APTT 35 SECONDS (21-34) H 09/11/18 00:36 Attending/Attestation - Attestation I have personally seen and examined this patient.: Yes I have fully participated in the care of the patient.: Yes I have reviewed all pertinent clinical information, including history, physical exam and plan: Yes Notes (Text): Medical attending: Patient was seen and examined by me. Agree with the above note by the resident. We saw the patient together and examined the patient together. The patient is known to the hospitalist service. He has not been to see a doctor recently for almost 4 months now and from what I understand has not had HD for 4 months. Furthermore he has not been to see hematology oncology for the past 4 months and has not had the ecluzimab for the patient's history of Atypical HUS. He is here with nausea, coughing, and also coughing up of blood it appears secondary to chronic epistasix. He says if I understood him correctly, he says that the nose bleeding running down the back of his throat irritating him and causing him to cough. The overnight team was concerned for possible GI bleeding as well since a stool guiac was positive. Because of his Atypical HUS we have seen the patient here at the hospital with platelet counts of below 10K. I have remembered in the past that many times the platelet count does not respond to platelet transfusions unless he is on the ecluzumab or we try to give him DDAVP and soulmedrol before the platelet transfusions. He has a permacath and it has been there for over 4+ months. It is often difficult to exchange since his platelecounts are often severely low. He does have nausea and vommitting and this is possible from not having HD, or possible from infection of the permacath since it has been there for such a long period of time. At this immediate point we are giving blood transfusion x 2, DDAVP, Solumedrol 125 x 1 and then 2 units of platelets. If the platelets respond maybe he can get that permacath exchanged. He has not taken his ecluzumab for almost 4 months now so I don't know if he wants to go back on it or not. Romeo Snyder
--- NOTE | 2018-09-11 15:10 | CP.PCM.CON ---
History of Present Illness - History of Present Illness History of Present Illness: This is a surgical consult note for Dr. Gomez for permacath replacement. Pt is a 32M with PMHx of CKD and HTN who presented on 09/11/18 for epistaxis, nausea/vomiting, and sepsis. He says he started feeling ill for 3-4 days ago, when he began to feel nauseous, fevers, and chills. He reports his nose started to bleed and he has been vomiting since yesterday. The vomit appears clear and liquidy but mixes with the blood from his nose. He also complains of constipation, headache, sore throat, cough, R inguinal hernia, and RLQ abdominal pain. He describes a dark pebble-like bowel movement yesterday morning. He denies current F/C, trouble urinating and blood in urine/stool. Pt was getting dialysis through before but stopped 4-5 months ago because it gave him headaches and nausea. PMHx: HTN, CKD, atypical HUS, thrombocytopenia, sepsis, GI hemorrhage, renal failure, anemia. SxHx: R inguinal hernia repair (1994), PD cath placed (05/2017), renal biopsy (03/2017), R chest permacath (03/2017), splenectomy (1989) FamHx: Denies family history SocHx: Denies tobacco, alcohol, and drug use. Meds: Piperacillin, Tazobactam, Vancomycin, Norvasc (Amlodipine), Coreg (Carvedilol), Catapres (Clonidine), Apresoline (Hydralazine), Pantoprazole Allergies: Aspirin Review of Systems - Constitutional Constitutional: Headache. absent: Chills, Fever - Cardiovascular Cardiovascular: Rapid Heart Rate - Respiratory Respiratory: Cough, Pain with Coughing - Gastrointestinal Gastrointestinal: Constipation, Nausea, Vomiting. absent: Abdominal Pain, Diarrhea - Genitourinary Genitourinary: absent: Difficulty Urinating, Hematuria Past Patient History - Infectious Disease Hx of Infectious Diseases: None - Past Medical History & Family History Past Medical History?: Yes Past Family History: Reviewed and not pertinent - Past Social History Smoking Status: Never Smoked Chewing Tobacco Use: No Cigar Use: No Alcohol: None Drugs: Denies Home Situation {Lives}: Alone - CARDIAC Hx Hypertension: Yes - PULMONARY Hx Respiratory Disorders: No - NEUROLOGICAL Hx Neurological Disorder: No - HEENT Hx HEENT Problems: Yes Hx Deafness: (LEFT HEARING AID) Other/Comment: HEARING IMPAIRED - RENAL Hx Chronic Kidney Disease: Yes - ENDOCRINE/METABOLIC Hx Endocrine Disorders: No - HEMATOLOGICAL/ONCOLOGICAL Hx Blood Disorders: Yes Other/Comment: Thrombocytopenia - INTEGUMENTARY Hx Dermatological Problems: No - MUSCULOSKELETAL/RHEUMATOLOGICAL Hx Musculoskeletal Disorders: No - GASTROINTESTINAL Hx Gastrointestinal Disorders: No - GENITOURINARY/GYNECOLOGICAL Hx Genitourinary Disorders: No - PSYCHIATRIC Hx Substance Use: No - SURGICAL HISTORY Hx Surgeries: Yes Other/Comment: peritoneal dialysis catheter 05/2017. right chest wall permacath - ANESTHESIA Hx Anesthesia: Yes Hx Anesthesia Reactions: No Hx Malignant Hyperthermia: No Meds Allergies/Adverse Reactions: Allergies Allergy/AdvReac Type Severity Reaction Status Date / Time aspirin AdvReac ANAPHYLAXIS Verified 09/10/18 23:59 - Medications Medications: Current Medications Amlodipine Besylate (Norvasc) 10 mg PO DAILY [facility] Last Admin: 09/11/18 10:38 Dose: 10 mg Carvedilol (Coreg) 6.25 mg PO BID [facility] Last Admin: 09/11/18 10:38 Dose: 6.25 mg Clonidine HCl (Catapres) 0.2 mg PO TID [facility] Last Admin: 09/11/18 13:29 Dose: 0.2 mg Hydralazine HCl (Apresoline) 25 mg PO Q8 [facility] Last Admin: 09/11/18 13:29 Dose: 25 mg Piperacillin Sod/Tazobactam (Sod 2.25 gm/ Sodium Chloride) 100 mls @ 200 mls/hr IVPB Q8H [facility]; Protocol Last Admin: 09/11/18 09:24 Dose: 200 mls/hr Vancomycin HCl 1 gm/ Sodium (Chloride) 250 mls @ 166.7 mls/hr IVPB Q24H [facility]; Protocol Physical Exam - Head Exam Head Exam: ATRAUMATIC, NORMAL INSPECTION, NORMOCEPHALIC - Respiratory Exam Respiratory Exam: Clear to Auscultation Bilateral - Cardiovascular Exam Cardiovascular Exam: Tachycardia - GI/Abdominal Exam GI & Abdominal Exam: Diminished Bowel Sounds, Soft. absent: Guarding, Tenderness - Extremities Exam Extremities exam: Positive for: pedal edema, tenderness Additional comments: +b/l trace edema, tenderness to deep palpation, and 6 toes. Results - Vital Signs Recent Vital Signs: Last Vital Signs Temp 98.5 F 09/11/18 15:03 Pulse 90 09/11/18 15:03 Resp 20 09/11/18 15:03 BP 125/71 09/11/18 15:03 Pulse Ox 98 09/11/18 07:00 - Labs Result Diagrams: 09/11/18 04:48 09/11/18 05:13 Labs: Laboratory Results - last 24 hr 09/11/18 09/11/18 09/11/18 00:30 00:36 00:36 WBC 23.4 H D RBC 2.89 L Hgb 8.2 L D Hct 25.5 L MCV 88.0 D MCH 28.4 MCHC 32.3 L RDW 14.9 H Plt Count 6 L* MPV 13.3 H Neut % (Auto) 63.4 Lymph % (Auto) 26.7 [place] % (Auto) 8.1 Eos % (Auto) 1.3 Baso % (Auto) 0.5 Neut # (Auto) 14.8 H Lymph # (Auto) 6.2 H [place] # (Auto) 1.9 H Eos # (Auto) 0.3 Baso # (Auto) 0.1 Neutrophils % (Manual) 66 Lymphocytes % (Manual) 26 Reactive Lymphs % 1 H Monocytes % (Manual) 7 Platelet Estimate Markedly decreased L Giant Platelets Present PT 14.6 H INR 1.3 APTT 35 H pO2 81 H VBG pH 7.48 H VBG pCO2 22 L VBG HCO3 21.0 VBG Total CO2 17.1 L VBG O2 Sat (Calc) 99.1 H VBG Base Excess -5.0 L VBG Potassium 4.1 Sodium 141.0 Chloride 114.0 H Glucose 134 H Lactate 1.6 Potassium Carbon Dioxide Anion Gap BUN Creatinine Est GFR ( Amer) Est GFR (Non-Af Amer) Random Glucose Calcium Total Bilirubin AST ALT Alkaline Phosphatase NT-Pro-B Natriuret Pep Total Protein Albumin Globulin Albumin/Globulin Ratio Venous Blood Potassium 4.1 Urine Color Urine Clarity Urine pH Ur Specific [place] Urine Protein Urine Glucose (UA) Urine Ketones Urine Blood Urine Nitrate Urine Bilirubin Urine Urobilinogen Ur Leukocyte Esterase Urine WBC (Auto) Urine RBC (Auto) Urine Bacteria Stool Occult Blood Alcohol, Quantitative Blood Type Antibody Screen 09/11/18 09/11/18 09/11/18 00:36 00:36 00:43 WBC RBC Hgb Hct MCV MCH MCHC RDW Plt Count MPV Neut % (Auto) Lymph % (Auto) [place] % (Auto) Eos % (Auto) Baso % (Auto) Neut # (Auto) Lymph # (Auto) [place] # (Auto) Eos # (Auto) Baso # (Auto) Neutrophils % (Manual) Lymphocytes % (Manual) Reactive Lymphs % Monocytes % (Manual) Platelet Estimate Giant Platelets PT INR APTT pO2 VBG pH VBG pCO2 VBG HCO3 VBG Total CO2 VBG O2 Sat (Calc) VBG Base Excess VBG Potassium Sodium 145 Chloride 107 Glucose Lactate Potassium 4.4 Carbon Dioxide 16 L Anion Gap 26 H BUN 72 H Creatinine 10.7 H* D Est GFR ( Amer) 7 Est GFR (Non-Af Amer) 6 Random Glucose 136 H Calcium 9.5 Total Bilirubin 0.5 AST 14 L D ALT 20 L D Alkaline Phosphatase 137 H NT-Pro-B Natriuret Pep Total Protein 7.0 Albumin 4.0 Globulin 3.0 Albumin/Globulin Ratio 1.3 Venous Blood Potassium Urine Color Urine Clarity Urine pH Ur Specific [place] Urine Protein Urine Glucose (UA) Urine Ketones Urine Blood Urine Nitrate Urine Bilirubin Urine Urobilinogen Ur Leukocyte Esterase Urine WBC (Auto) Urine RBC (Auto) Urine Bacteria Stool Occult Blood Positive H Alcohol, Quantitative < 10 Blood Type O POSITIVE Antibody Screen Negative 09/11/18 09/11/18 09/11/18 00:49 03:14 04:48 WBC 18.3 H RBC 2.56 L Hgb 7.3 L Hct 22.4 L MCV 87.5 MCH 28.3 MCHC 32.4 L RDW 14.6 H Plt Count 7 L* MPV 11.2 Neut % (Auto) 76.5 H Lymph % (Auto) 13.7 L [place] % (Auto) 9.1 Eos % (Auto) 0.4 Baso % (Auto) 0.3 Neut # (Auto) 14.0 H Lymph # (Auto) 2.5 [place] # (Auto) 1.7 H Eos # (Auto) 0.1 Baso # (Auto) 0.1 Neutrophils % (Manual) Lymphocytes % (Manual) Reactive Lymphs % Monocytes % (Manual) Platelet Estimate Giant Platelets PT INR APTT pO2 VBG pH VBG pCO2 VBG HCO3 VBG Total CO2 VBG O2 Sat (Calc) VBG Base Excess VBG Potassium Sodium Chloride Glucose Lactate Potassium Carbon Dioxide Anion Gap BUN Creatinine Est GFR ( Amer) Est GFR (Non-Af Amer) Random Glucose Calcium Total Bilirubin AST ALT Alkaline Phosphatase NT-Pro-B Natriuret Pep 6900 H Total Protein Albumin Globulin Albumin/Globulin Ratio Venous Blood Potassium Urine Color Yellow Urine Clarity Clear Urine pH 6.0 Ur Specific [place] 1.014 Urine Protein 3+ H Urine Glucose (UA) Normal Urine Ketones Negative Urine Blood Negative Urine Nitrate Negative Urine Bilirubin Negative Urine Urobilinogen Normal Ur Leukocyte Esterase Neg Urine WBC (Auto) 4 Urine RBC (Auto) 3 Urine Bacteria Rare Stool Occult Blood Alcohol, Quantitative Blood Type Antibody Screen 09/11/18 05:13 WBC RBC Hgb Hct MCV MCH MCHC RDW Plt Count MPV Neut % (Auto) Lymph % (Auto) [place] % (Auto) Eos % (Auto) Baso % (Auto) Neut # (Auto) Lymph # (Auto) [place] # (Auto) Eos # (Auto) Baso # (Auto) Neutrophils % (Manual) Lymphocytes % (Manual) Reactive Lymphs % Monocytes % (Manual) Platelet Estimate Giant Platelets PT INR APTT pO2 VBG pH VBG pCO2 VBG HCO3 VBG Total CO2 VBG O2 Sat (Calc) VBG Base Excess VBG Potassium Sodium 144 Chloride 111 H Glucose Lactate Potassium 4.5 Carbon Dioxide 17 L Anion Gap 21 H BUN 74 H Creatinine 10.1 H* Est GFR ( Amer) 7 Est GFR (Non-Af Amer) 6 Random Glucose 111 H Calcium 9.0 Total Bilirubin 0.5 AST 12 L ALT 23 Alkaline Phosphatase 108 NT-Pro-B Natriuret Pep Total Protein 6.3 Albumin 3.4 L Globulin 2.8 Albumin/Globulin Ratio 1.2 Venous Blood Potassium Urine Color Urine Clarity Urine pH Ur Specific [place] Urine Protein Urine Glucose (UA) Urine Ketones Urine Blood Urine Nitrate Urine Bilirubin Urine Urobilinogen Ur Leukocyte Esterase Urine WBC (Auto) Urine RBC (Auto) Urine Bacteria Stool Occult Blood Alcohol, Quantitative Blood Type Antibody Screen Assessment & Plan - Assessment and Plan (Free Text) Assessment: Permacath placement was tested and in working order. Plan: No surgical intervention needed at this time. Catheter working. ROMIE Gomez
--- NOTE | 2018-09-11 21:34 | CP.PCM.CON ---
History of Present Illness - History of Present Illness History of Present Illness: 32 year old male with a history of atypical HUS (non compliant with eculizumab), ESRD non compliant with HD, with hematemesis and epistaxis. He notes to experiencing epistaxis that wouldnt stop. He began to swallow the blood and bec tashia nauseous and vomited blood. The patient has had an extensive work up pertaining to his thrombocytopenia, anemia, and renal failure. 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 His kidney biopsy was complicated by hemorrhage and need for IR embolization. A bone marrow biopsy revealed normocellular marrow with megakaryocytic hyperplasia consistent with peripheral destruction. Plasma exchange was performed at the time with no improvement in thrombocytopenia or microangiopathic hemolysis. [id number] level returned normal and the patient was felt to have atypical HUS. He was started on eculizumab with variability in his renal function from a cr of 3-5. His platelet count remained severely low and has ranged around 10,000. He has not received eculizumab for several months. Past medical history: ?atypical HUS Past surgical history: None Family history: Denies known hematologic and oncologic problems Social history: Denies tobacco, alcohol, and illicit drug use. Allergies: NKA Review of systems: All remaining review of systems including HEENT, cardiovascular, respiratory, gastrointestinal, genitourinary, musculoskeletal, dermatologic, neurologic, and psychiatric are negative unless mentioned in the HPI. Past Patient History - Infectious Disease Hx of Infectious Diseases: None - Past Medical History & Family History Past Medical History?: Yes Past Family History: Reviewed and not pertinent - Past Social History Smoking Status: Never Smoked Chewing Tobacco Use: No Cigar Use: No Alcohol: None Drugs: Denies Home Situation {Lives}: Alone - CARDIAC Hx Hypertension: Yes - PULMONARY Hx Respiratory Disorders: No - NEUROLOGICAL Hx Neurological Disorder: No - HEENT Hx HEENT Problems: Yes Hx Deafness: (LEFT HEARING AID) Other/Comment: HEARING IMPAIRED - RENAL Hx Chronic Kidney Disease: Yes - ENDOCRINE/METABOLIC Hx Endocrine Disorders: No - HEMATOLOGICAL/ONCOLOGICAL Hx Blood Disorders: Yes Other/Comment: Thrombocytopenia - INTEGUMENTARY Hx Dermatological Problems: No - MUSCULOSKELETAL/RHEUMATOLOGICAL Hx Musculoskeletal Disorders: No - GASTROINTESTINAL Hx Gastrointestinal Disorders: No - GENITOURINARY/GYNECOLOGICAL Hx Genitourinary Disorders: No - PSYCHIATRIC Hx Substance Use: No - SURGICAL HISTORY Hx Surgeries: Yes Other/Comment: peritoneal dialysis catheter 05/2017. right chest wall permacath - ANESTHESIA Hx Anesthesia: Yes Hx Anesthesia Reactions: No Hx Malignant Hyperthermia: No Meds Allergies/Adverse Reactions: Allergies Allergy/AdvReac Type Severity Reaction Status Date / Time aspirin AdvReac ANAPHYLAXIS Verified 09/10/18 23:59 - Medications Medications: Current Medications Amlodipine Besylate (Norvasc) 10 mg PO DAILY [facility] Last Admin: 09/11/18 10:38 Dose: 10 mg Carvedilol (Coreg) 6.25 mg PO BID [facility] Last Admin: 09/11/18 10:38 Dose: 6.25 mg Clonidine HCl (Catapres) 0.2 mg PO TID [facility] Last Admin: 09/11/18 13:29 Dose: 0.2 mg Hydralazine HCl (Apresoline) 25 mg PO Q8 [facility] Last Admin: 09/11/18 13:29 Dose: 25 mg Piperacillin Sod/Tazobactam (Sod 2.25 gm/ Sodium Chloride) 100 mls @ 200 mls/hr IVPB Q8H [facility]; Protocol Last Admin: 09/11/18 09:24 Dose: 200 mls/hr Vancomycin HCl 1 gm/ Sodium (Chloride) 250 mls @ 166.7 mls/hr IVPB Q24H [facility]; Protocol Physical Exam - Head Exam Head Exam: ATRAUMATIC - Eye Exam Eye Exam: Normal appearance - ENT Exam ENT Exam: Mucous Membranes Dry - Respiratory Exam Respiratory Exam: NORMAL BREATHING PATTERN - Cardiovascular Exam Cardiovascular Exam: +S1, +S2 - GI/Abdominal Exam GI & Abdominal Exam: Normal Bowel Sounds - Extremities Exam Extremities exam: Positive for: normal inspection - Neurological Exam Neurological exam: Oriented x3 - Psychiatric Exam Psychiatric exam: Normal Affect, Normal Mood - Skin Skin Exam: Warm Results - Vital Signs Recent Vital Signs: Last Vital Signs Temp 97.8 F 09/11/18 20:33 Pulse 89 09/11/18 20:41 Resp 16 09/11/18 20:41 BP 142/84 09/11/18 20:41 Pulse Ox 97 09/11/18 18:26 - Labs Result Diagrams: 09/11/18 04:48 09/11/18 05:13 Labs: Laboratory Results - last 24 hr 09/11/18 09/11/18 09/11/18 00:30 00:36 00:36 WBC 23.4 H D RBC 2.89 L Hgb 8.2 L D Hct 25.5 L MCV 88.0 D MCH 28.4 MCHC 32.3 L RDW 14.9 H Plt Count 6 L* MPV 13.3 H Neut % (Auto) 63.4 Lymph % (Auto) 26.7 [place] % (Auto) 8.1 Eos % (Auto) 1.3 Baso % (Auto) 0.5 Neut # (Auto) 14.8 H Lymph # (Auto) 6.2 H [place] # (Auto) 1.9 H Eos # (Auto) 0.3 Baso # (Auto) 0.1 Neutrophils % (Manual) 66 Lymphocytes % (Manual) 26 Reactive Lymphs % 1 H Monocytes % (Manual) 7 Platelet Estimate Markedly decreased L Giant Platelets Present PT 14.6 H INR 1.3 APTT 35 H pO2 81 H VBG pH 7.48 H VBG pCO2 22 L VBG HCO3 21.0 VBG Total CO2 17.1 L VBG O2 Sat (Calc) 99.1 H VBG Base Excess -5.0 L VBG Potassium 4.1 Sodium 141.0 Chloride 114.0 H Glucose 134 H Lactate 1.6 Potassium Carbon Dioxide Anion Gap BUN Creatinine Est GFR ( Amer) Est GFR (Non-Af Amer) Random Glucose Calcium Total Bilirubin AST ALT Alkaline Phosphatase NT-Pro-B Natriuret Pep Total Protein Albumin Globulin Albumin/Globulin Ratio Procalcitonin Venous Blood Potassium 4.1 Urine Color Urine Clarity Urine pH Ur Specific [place] Urine Protein Urine Glucose (UA) Urine Ketones Urine Blood Urine Nitrate Urine Bilirubin Urine Urobilinogen Ur Leukocyte Esterase Urine WBC (Auto) Urine RBC (Auto) Urine Bacteria Stool Occult Blood Alcohol, Quantitative Influenza Typ A,B (EIA) Blood Type Antibody Screen 09/11/18 09/11/18 09/11/18 00:36 00:36 00:43 WBC RBC Hgb Hct MCV MCH MCHC RDW Plt Count MPV Neut % (Auto) Lymph % (Auto) [place] % (Auto) Eos % (Auto) Baso % (Auto) Neut # (Auto) Lymph # (Auto) [place] # (Auto) Eos # (Auto) Baso # (Auto) Neutrophils % (Manual) Lymphocytes % (Manual) Reactive Lymphs % Monocytes % (Manual) Platelet Estimate Giant Platelets PT INR APTT pO2 VBG pH VBG pCO2 VBG HCO3 VBG Total CO2 VBG O2 Sat (Calc) VBG Base Excess VBG Potassium Sodium 145 Chloride 107 Glucose Lactate Potassium 4.4 Carbon Dioxide 16 L Anion Gap 26 H BUN 72 H Creatinine 10.7 H* D Est GFR ( Amer) 7 Est GFR (Non-Af Amer) 6 Random Glucose 136 H Calcium 9.5 Total Bilirubin 0.5 AST 14 L D ALT 20 L D Alkaline Phosphatase 137 H NT-Pro-B Natriuret Pep Total Protein 7.0 Albumin 4.0 Globulin 3.0 Albumin/Globulin Ratio 1.3 Procalcitonin Venous Blood Potassium Urine Color Urine Clarity Urine pH Ur Specific [place] Urine Protein Urine Glucose (UA) Urine Ketones Urine Blood Urine Nitrate Urine Bilirubin Urine Urobilinogen Ur Leukocyte Esterase Urine WBC (Auto) Urine RBC (Auto) Urine Bacteria Stool Occult Blood Positive H Alcohol, Quantitative < 10 Influenza Typ A,B (EIA) Blood Type O POSITIVE Antibody Screen Negative 09/11/18 09/11/18 09/11/18 00:49 03:14 04:39 WBC RBC Hgb Hct MCV MCH MCHC RDW Plt Count MPV Neut % (Auto) Lymph % (Auto) [place] % (Auto) Eos % (Auto) Baso % (Auto) Neut # (Auto) Lymph # (Auto) [place] # (Auto) Eos # (Auto) Baso # (Auto) Neutrophils % (Manual) Lymphocytes % (Manual) Reactive Lymphs % Monocytes % (Manual) Platelet Estimate Giant Platelets PT INR APTT pO2 VBG pH VBG pCO2 VBG HCO3 VBG Total CO2 VBG O2 Sat (Calc) VBG Base Excess VBG Potassium Sodium Chloride Glucose Lactate Potassium Carbon Dioxide Anion Gap BUN Creatinine Est GFR ( Amer) Est GFR (Non-Af Amer) Random Glucose Calcium Total Bilirubin AST ALT Alkaline Phosphatase NT-Pro-B Natriuret Pep 6900 H Total Protein Albumin Globulin Albumin/Globulin Ratio Procalcitonin 0.85 H Venous Blood Potassium Urine Color Yellow Urine Clarity Clear Urine pH 6.0 Ur Specific [place] 1.014 Urine Protein 3+ H Urine Glucose (UA) Normal Urine Ketones Negative Urine Blood Negative Urine Nitrate Negative Urine Bilirubin Negative Urine Urobilinogen Normal Ur Leukocyte Esterase Neg Urine WBC (Auto) 4 Urine RBC (Auto) 3 Urine Bacteria Rare Stool Occult Blood Alcohol, Quantitative Influenza Typ A,B (EIA) Blood Type Antibody Screen 09/11/18 09/11/1818 04:48 05:13 18:39 WBC 18.3 H RBC 2.56 L Hgb 7.3 L Hct 22.4 L MCV 87.5 MCH 28.3 MCHC 32.4 L RDW 14.6 H Plt Count 7 L* MPV 11.2 Neut % (Auto) 76.5 H Lymph % (Auto) 13.7 L [place] % (Auto) 9.1 Eos % (Auto) 0.4 Baso % (Auto) 0.3 Neut # (Auto) 14.0 H Lymph # (Auto) 2.5 [place] # (Auto) 1.7 H Eos # (Auto) 0.1 Baso # (Auto) 0.1 Neutrophils % (Manual) Lymphocytes % (Manual) Reactive Lymphs % Monocytes % (Manual) Platelet Estimate Giant Platelets PT INR APTT pO2 VBG pH VBG pCO2 VBG HCO3 VBG Total CO2 VBG O2 Sat (Calc) VBG Base Excess VBG Potassium Sodium 144 Chloride 111 H Glucose Lactate Potassium 4.5 Carbon Dioxide 17 L Anion Gap 21 H BUN 74 H Creatinine 10.1 H* Est GFR ( Amer) 7 Est GFR (Non-Af Amer) 6 Random Glucose 111 H Calcium 9.0 Total Bilirubin 0.5 AST 12 L ALT 23 Alkaline Phosphatase 108 NT-Pro-B Natriuret Pep Total Protein 6.3 Albumin 3.4 L Globulin 2.8 Albumin/Globulin Ratio 1.2 Procalcitonin Venous Blood Potassium Urine Color Urine Clarity Urine pH Ur Specific [place] Urine Protein Urine Glucose (UA) Urine Ketones Urine Blood Urine Nitrate Urine Bilirubin Urine Urobilinogen Ur Leukocyte Esterase Urine WBC (Auto) Urine RBC (Auto) Urine Bacteria Stool Occult Blood Alcohol, Quantitative Influenza Typ A,B (EIA) Negative for flu a/b Blood Type Antibody Screen Assessment & Plan (1) HUS (hemolytic uremic syndrome), atypical Assessment and Plan: poor response to eculizumab; noncompliant with therapy for several months Status: Chronic (2) Thrombocytopenia Assessment and Plan: secondary to atypical HUS; noncompliant with treatment transfuse platelets given bleeding Status: Chronic (3) Anemia Assessment and Plan: GI blood loss anemia of CKD; GALE per renal transfusion support Status: Acute (4) Elevated WBC count Assessment and Plan: on antibiotics Thank you for this interesting consult. Status: Chronic
[2018-09-11 22:07] LABS: HEPATITIS B SURFACE AG Negative (NEGATIVE)
[2018-09-11 22:12] LABS: HEPATITIS B CORE AB NEGATIVE (NEGATIVE)
[2018-09-12] MEDS: Piperacillin/Tazobact 2.25 GM in Sodium Chloride 100 ML IVPB SCH ×3 (05:33→21:08)
[2018-09-12 08:11] LABS: BASO % 0.1 % (0.0-2.0); LYMPH # 2.1 K/uL (1.0-4.3); LYMPH % 13.7 % (20.0-40.0); MEAN CELL VOLUME 85.7 fL (80.0-94.0); MEAN CORPUSCULAR HEMOGLOBIN 28.8 pg (27.0-31.0); MEAN CORPUSCULAR HGB CONC 33.6 g/dL (33.0-37.0); MEAN PLATELET VOLUME 10.6 fL (7.2-11.7); MONO # 0.7 K/uL (0.0-0.8); MONO % 4.6 % (0.0-10.0); NEUT # 12.4 K/uL (1.8-7.0); NEUT % 81.6 % (50.0-75.0); RBC 2.25 Mil/uL (4.40-5.90); RED CELL DISTRIBUTION WIDTH 15.4 % (11.5-14.5); WHITE BLOOD COUNT 15.2 K/uL (4.8-10.8)
[2018-09-12 08:27] LABS: HEMOGLOBIN 6.5 g/dL (12.0-18.0)
[2018-09-12 08:55] LABS: ALB/GLOB RATIO 1.2 (1.0-2.1); CALCIUM 8.9 mg/dl (8.6-10.4)
--- NOTE | 2018-09-12 09:47 | CP.PCM.PN ---
<Angelica Jacob Y - Last Filed: 09/12/18 13:30> Subjective - Date & Time of Evaluation Date of Evaluation: 09/12/18 Time of Evaluation: 09:00 - Subjective Subjective: PGY-1 Medicine Progress Note for Dr. Snyder Patient was seen and examined today at bedside in no acute distress. Nurse reports no overnight events and no more nose bleeds. 2u and PRBCs and 2u platelets were transfused yesterday. Patient has no acute complaints. He has been able to have a BM and urine output overnight without difficulty. He overall feels poor and fatigued, but does endorse improvement from yesterday. Denies chest pain, shortness of breath, abdominal pain, numbness, tingling, dizziness, headache. Objective - Vital Signs/Intake and Output Vital Signs (last 24 hours): Temp Pulse Resp BP Pulse Ox 98.5 F 78 20 123/68 97 09/12/18 07:00 09/12/18 07:37 09/12/18 07:00 09/12/18 07:00 09/12/18 07:00 Intake and Output: 09/12/18 09/12/18 06:59 18:59 Intake Total 661 Balance 661 - Medications Medications: Current Medications Amlodipine Besylate (Norvasc) 10 mg PO DAILY [facility] Last Admin: 09/12/18 09:14 Dose: 10 mg Carvedilol (Coreg) 6.25 mg PO BID [facility] Last Admin: 09/12/18 09:14 Dose: 6.25 mg Clonidine HCl (Catapres) 0.2 mg PO TID [facility] Last Admin: 09/12/18 09:14 Dose: 0.2 mg Hydralazine HCl (Apresoline) 25 mg PO Q8 [facility] Last Admin: 09/12/18 05:28 Dose: Not Given Vancomycin HCl 1 gm/ Sodium (Chloride) 250 mls @ 166.7 mls/hr IVPB Q24H [facility]; Protocol Last Admin: 09/12/18 00:49 Dose: 166.7 mls/hr Piperacillin Sod/Tazobactam (Sod 2.25 gm/ Sodium Chloride) 100 mls @ 200 mls/hr IVPB Q8 [facility]; Protocol Last Admin: 09/12/18 05:33 Dose: 200 mls/hr - Labs Labs: 09/12/18 08:05 09/12/18 08:05 PT 14.6 SECONDS (9.7-12.2) H 09/11/18 00:36 INR 1.3 09/11/18 00:36 APTT 35 SECONDS (21-34) H 09/11/18 00:36 - Constitutional Appears: Non-toxic, No Acute Distress - Head Exam Head Exam: ATRAUMATIC, NORMOCEPHALIC - Eye Exam Eye Exam: EOMI, PERRL Additional comments: bilateral hearing aids - ENT Exam ENT Exam: Mucous Membranes Moist - Respiratory Exam Respiratory Exam: Clear to Ausculation Bilateral, NORMAL BREATHING PATTERN. absent: Rales, Rhonchi, Wheezes - Cardiovascular Exam Cardiovascular Exam: REGULAR RHYTHM, +S1, +S2. absent: Gallop, Rubs, Murmur - GI/Abdominal Exam GI & Abdominal Exam: Soft, Normal Bowel Sounds. absent: Tenderness - Extremities Exam Additional comments: IV access in bilateral forearms peripheral pulses palpable bilaterally (radial, DP, PT) R chest Permacath - Back Exam Back Exam: absent: CVA tenderness (L), CVA tenderness (R) - Neurological Exam Neurological Exam: Alert, Awake, Oriented x3 - Skin Skin Exam: Dry, Normal Color, Warm Assessment and Plan - Assessment and Plan (Free Text) Assessment: Mr. 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 However, cannot r/o Alport's syndrome - has not been compliant with eculizumab for last 4 months - Hgb 8.2 on admission - Type and cross -> transfused 2u PRBC 09/11 - Hgb continues to drop despite transfusions. 6.5 today - Heme consulted: Dr. Benites - help appreciated - Trend with AM labs Severe Thrombocytopenia - likely 2/2 atypical HUS - has not been compliant with eculizumab for last 4 months - Plts 6 on admission - DDAVP 20mcg and Solumedrol 125mg given prior to transfusion - transfused 2u Plts 09/11 - Plts cotinue to drop despite transfusions. 5 today - Solumedrol 60mg IV q6 started - will transfuse another 2u Plts after 2 doses of solumedrol this pm - Heme consulted: Dr. Benites - dileep appreciated - Trend with AM labs ESRD - BUN/Cr: 72/10.7 on admission - elevated from previous admission of Cr of 7s - has not had dialysis in the last 4 months, still producing urine - Vasc Surgery consulted: Dr. Philoemna goodson appreciated Existing R chest Permacath flushed and still functional Blood Cx if concerned for long indwelling infection No surgical intervention at this time as vascular access intact and new access involves high risk with low platelets Signed off 09/11 - Nephro consulted: Dr. Hamilton goodson appreciated HD yesterday (09/11) evening Cont on MWF schedule GALE with HD - BUN/Cr 61/5.9 today; down-trending s/p HD - Trend with AM labs Code Sepsis - called for elevated WBC and tachycardia, suspected long time indwelling cath infection - CXR (09/11): mild pulmonary venous congestion - repeat CXR (09/12): pending read - no rashes, skin changes, sensitivities noticed on skin, including area surrounding catheter - UA (09/11): 3+ protein - VBG (09/11): pH 7.48, lactate 1.6 - procalcitonin (09/11): 0.85 - Given Zosyn 2.25gm and Vancomycin 1gm IV, Gentamicin 270mg once in ED - blood Cx (09/11): gram + bacilli, pending sensitivities - f/u blood Cx drawn from Permacath - Vancomycin 1gm IVPB daily (started 09/11) - random Vanc (09/12): 24.7 - Vanc trough @ 00:30am on Jessica 11/ before 4th dose - Zosyn 2.25gm IVPB q8 (started 09/12) - WBC 15.2, downtrending. No longer tachycardic - Trend with AM labs Hypertension - home Norvasc 10mg po daily - home Coreg 6.25mg po bid - home Clonidine 0.2mg po tid - home hydralazine 25mg po tid - Monitor vitals Possible GI bleed - Hgb 8.2 on admission. Stool occult blood positive in ED - s/p transfusion 2u PRBC (09/11) - GI consulted: Dr. Elliott - recs appreciated unlikely upper GI bleed no GI intervention, including endoscopy, indicated at this time rec Pepcid over Protonix if GI ppx indicated signed off 09/11 PPx - DVT: Chemical AC CI d/t severe thrombocytopenia, SCDs - GI: CI d/t severe thrombocytopenia - Diet: NPO -> FLD - Palliative Care consulted - Dispo: patient remains stable although blood counts remain refractory to transfusion. d/w Dr. Sutton of the ICU. If blood counts continue to drop despite treatment, will require more constant monitoring in the ICU. d/w Dr. Lillian Jacob PGY-1 <Romeo Snyder H - Last Filed: 09/12/18 19:15> Objective - Vital Signs/Intake and Output Vital Signs (last 24 hours): Temp Pulse Resp BP Pulse Ox 98 F 72 18 125/70 96 09/12/18 16:05 09/12/18 16:05 09/12/18 16:05 09/12/18 16:05 09/12/18 15:20 Intake and Output: 09/12/18 09/13/18 18:59 06:59 Intake Total 400 Balance 400 - Medications Medications: Current Medications Amlodipine Besylate (Norvasc) 10 mg PO DAILY [facility] Last Admin: 09/12/18 09:14 Dose: 10 mg Carvedilol (Coreg) 6.25 mg PO BID [facility] Last Admin: 09/12/18 17:30 Dose: 6.25 mg Clonidine HCl (Catapres) 0.2 mg PO TID [facility] Last Admin: 09/12/18 17:29 Dose: 0.2 mg Hydralazine HCl (Apresoline) 25 mg PO Q8 [facility] Last Admin: 09/12/18 13:18 Dose: 25 mg Vancomycin HCl 1 gm/ Sodium (Chloride) 250 mls @ 166.7 mls/hr IVPB Q24H [facility]; Protocol Last Admin: 09/12/18 00:49 Dose: 166.7 mls/hr Piperacillin Sod/Tazobactam (Sod 2.25 gm/ Sodium Chloride) 100 mls @ 200 mls/hr IVPB Q8 [facility]; Protocol Last Admin: 09/12/18 13:49 Dose: 200 mls/hr Methylprednisolone (Solu-Medrol) 60 mg IV Q6 [facility] Last Admin: 09/12/18 17:35 Dose: 60 mg - Labs Labs: 09/12/18 08:05 09/12/18 08:05 PT 14.6 SECONDS (9.7-12.2) H 09/11/18 00:36 INR 1.3 09/11/18 00:36 APTT 35 SECONDS (21-34) H 09/11/18 00:36 Attending/Attestation - Attestation I have personally seen and examined this patient.: Yes I have fully participated in the care of the patient.: Yes I have reviewed all pertinent clinical information, including history, physical exam and plan: Yes Notes (Text): 09/12/18 19:12 Medical attending: Patient was seen and examined by me with the medical res idents. The 2 units of PRBC as well as the 2 units of platelets and today he still has severe pancytopenia. He did get HD last night - he says he felt much better. We will try giving solumedrol IV Q6hrs to see if this helps with the throbocytopenia. As mentioned previously this is a young male who has we believe atypical HUS and has not had HD or taken his eclizumab in 4 months. He often has very difficult to treat anemia and thrombocytopenia when he comes to the hospital and often has platelet counts under 10K Today we also acurired a culture of the permacath used for HD. Hopefully it is not infected, otherwise it is extremely difficult to exchange lines on this patient since he is so severely thrombocytopenia and does not respond to platelet transfusion. Romeo Snyder
[2018-09-12] MEDS ORDERED: Epoetin Alfa 10,000 unit/ml Dialysis IV ONE (10:06)
--- NOTE | 2018-09-12 10:06 | CP.PCM.PN ---
Subjective - Date & Time of Evaluation Date of Evaluation: 09/12/18 Time of Evaluation: 10:03 - Subjective Subjective: s/p hd yesterday permcath functioning well frequent nose bleeds labs noted, low hgb despite blood transfusion Objective - Vital Signs/Intake and Output Vital Signs (last 24 hours): Temp Pulse Resp BP Pulse Ox 98.5 F 78 20 123/68 97 09/12/18 07:00 09/12/18 07:37 09/12/18 07:00 09/12/18 07:00 09/12/18 07:00 Intake and Output: 09/12/18 09/12/18 06:59 18:59 Intake Total 661 Balance 661 - Medications Medications: Current Medications Amlodipine Besylate (Norvasc) 10 mg PO DAILY [facility] Last Admin: 09/12/18 09:14 Dose: 10 mg Carvedilol (Coreg) 6.25 mg PO BID [facility] Last Admin: 09/12/18 09:14 Dose: 6.25 mg Clonidine HCl (Catapres) 0.2 mg PO TID [facility] Last Admin: 09/12/18 09:14 Dose: 0.2 mg Hydralazine HCl (Apresoline) 25 mg PO Q8 [facility] Last Admin: 09/12/18 05:28 Dose: Not Given Vancomycin HCl 1 gm/ Sodium (Chloride) 250 mls @ 166.7 mls/hr IVPB Q24H [facility]; Protocol Last Admin: 09/12/18 00:49 Dose: 166.7 mls/hr Piperacillin Sod/Tazobactam (Sod 2.25 gm/ Sodium Chloride) 100 mls @ 200 mls/hr IVPB Q8 [facility]; Protocol Last Admin: 09/12/18 05:33 Dose: 200 mls/hr - Labs Labs: 09/12/18 08:05 09/12/18 08:05 PT 14.6 SECONDS (9.7-12.2) H 09/11/18 00:36 INR 1.3 09/11/18 00:36 APTT 35 SECONDS (21-34) H 09/11/18 00:36 - Constitutional Appears: No Acute Distress, Chronically Ill - Head Exam Head Exam: NORMAL INSPECTION, NORMOCEPHALIC - Eye Exam Eye Exam: Normal appearance, PERRL - ENT Exam ENT Exam: Mucous Membranes Moist, Normal Exam - Neck Exam Neck Exam: Normal Inspection (rt chest permcath) - Respiratory Exam Respiratory Exam: Clear to Ausculation Bilateral, NORMAL BREATHING PATTERN - Cardiovascular Exam Cardiovascular Exam: REGULAR RHYTHM, RRR - GI/Abdominal Exam GI & Abdominal Exam: Soft, Normal Bowel Sounds - Extremities Exam Extremities Exam: Full ROM, Normal Inspection - Neurological Exam Neurological Exam: Alert, Awake - Psychiatric Exam Psychiatric exam: Depressed - Skin Skin Exam: Dry, Intact Assessment and Plan (1) Anemia Status: Acute (2) Atypical hemolytic uremic syndrome Status: Acute (3) ESRD (end stage renal disease) Status: Acute (4) Thrombocytopenia Status: Chronic - Assessment and Plan (Free Text) Assessment: hd tomorrow blood product transfusion per heme bp acceptable jud w/ hd obtain blood cultures, permcath change if cultures positive
[2018-09-12] MEDS: MethylPREDNISolone 40 mg Vial IV SCH ×3 (11:12→17:35)
--- NOTE | 2018-09-12 14:27 | RAD ---
Date of service: 09/12/2018 HISTORY: SOB COMPARISON: Chest radiograph dated 09/11/2018. FINDINGS: LUNGS: Pulmonary vascular congestion. No focal consolidation. PLEURA: No significant pleural effusion identified, no pneumothorax apparent. CARDIOVASCULAR: No aortic atherosclerotic calcifications present. Cardiomediastinal silhouette stably prominent. OSSEOUS STRUCTURES: No significant abnormalities. VISUALIZED UPPER ABDOMEN: Normal. OTHER FINDINGS: Right internal jugular access tunneled hemodialysis catheter, unchanged. IMPRESSION: Pulmonary vascular congestion. No focal consolidation or pleural effusion.
[2018-09-13] MEDS: MethylPREDNISolone 40 mg Vial IV SCH ×4 (00:17→19:00)
[2018-09-13] MEDS: Piperacillin/Tazobact 2.25 GM in Sodium Chloride 100 ML IVPB SCH ×3 (05:36→21:41)
[2018-09-13 08:01] LABS: BASO % 0.1 % (0.0-2.0); LYMPH # 1.9 K/uL (1.0-4.3); LYMPH % 14.4 % (20.0-40.0); MEAN CELL VOLUME 86.7 fL (80.0-94.0); MEAN CORPUSCULAR HEMOGLOBIN 28.3 pg (27.0-31.0); MEAN CORPUSCULAR HGB CONC 32.6 g/dL (33.0-37.0); MEAN PLATELET VOLUME 7.2 fL (7.2-11.7); MONO # 0.5 K/uL (0.0-0.8); MONO % 4.1 % (0.0-10.0); NEUT # 10.5 K/uL (1.8-7.0); NEUT % 81.4 % (50.0-75.0); NRBC % 0.1 % (0.0-2.0); RBC 2.03 Mil/uL (4.40-5.90); RED CELL DISTRIBUTION WIDTH 15.2 % (11.5-14.5); WHITE BLOOD COUNT 12.9 K/uL (4.8-10.8)
[2018-09-13 08:10] LABS: HEMOGLOBIN 5.7 g/dL (12.0-18.0)
[2018-09-13 08:19] LABS: ALB/GLOB RATIO 1.3 (1.0-2.1); ALBUMIN 3.1 g/dL (3.5-5.0); CALCIUM 8.7 mg/dl (8.6-10.4)
--- NOTE | 2018-09-13 09:35 | CP.PCM.PN ---
<Angelica Jacob - Last Filed: 09/13/18 09:32> Subjective - Date & Time of Evaluation Date of Evaluation: 09/13/18 Time of Evaluation: 09:00 - Subjective Subjective: PGY-1 Medicine Progress Note for Dr. Snyder Patient was seen and examined today in dialysis in no acute distress. Nurse reports no overnight events. Patient reports he is more fatigued than yesterday but doing well overall. Denies chest pain, shortness of breath, headache, dizziness, numbness, tingling. He is urinating and having BM without difficulty. Objective - Vital Signs/Intake and Output Vital Signs (last 24 hours): Temp Pulse Resp BP Pulse Ox 98.2 F 78 20 119/61 95 09/13/18 07:00 09/13/18 08:43 09/13/18 07:00 09/13/18 07:00 09/13/18 07:00 - Medications Medications: Current Medications Amlodipine Besylate (Norvasc) 10 mg PO DAILY [facility] Last Admin: 09/12/18 09:14 Dose: 10 mg Carvedilol (Coreg) 6.25 mg PO BID [facility] Last Admin: 09/12/18 17:30 Dose: 6.25 mg Clonidine HCl (Catapres) 0.2 mg PO TID [facility] Last Admin: 09/12/18 17:29 Dose: 0.2 mg Hydralazine HCl (Apresoline) 25 mg PO Q8 [facility] Last Admin: 09/13/18 05:35 Dose: 25 mg Vancomycin HCl 1 gm/ Sodium (Chloride) 250 mls @ 166.7 mls/hr IVPB Q24H [facility]; Protocol Last Admin: 09/13/18 00:21 Dose: 166.7 mls/hr Piperacillin Sod/Tazobactam (Sod 2.25 gm/ Sodium Chloride) 100 mls @ 200 mls/hr IVPB Q8 [facility]; Protocol Last Admin: 09/13/18 05:36 Dose: 200 mls/hr Methylprednisolone (Solu-Medrol) 60 mg IV Q6 [facility] Last Admin: 09/13/18 05:35 Dose: 60 mg - Labs Labs: 09/13/18 07:43 09/13/18 07:43 PT 14.6 SECONDS (9.7-12.2) H 09/11/18 00:36 INR 1.3 09/11/18 00:36 APTT 35 SECONDS (21-34) H 09/11/18 00:36 - Constitutional Appears: Non-toxic, No Acute Distress - Head Exam Head Exam: ATRAUMATIC, NORMOCEPHALIC - Eye Exam Eye Exam: EOMI, PERRL Additional comments: bilateral hearing aids - ENT Exam ENT Exam: Mucous Membranes Moist - Respiratory Exam Respiratory Exam: Clear to Ausculation Bilateral, NORMAL BREATHING PATTERN. absent: Rales, Rhonchi, Wheezes - Cardiovascular Exam Cardiovascular Exam: REGULAR RHYTHM, +S1, +S2. absent: Gallop, Rubs, Murmur - GI/Abdominal Exam GI & Abdominal Exam: Soft, Normal Bowel Sounds. absent: Tenderness - Extremities Exam Additional comments: IV access in bilateral forearms peripheral pulses palpable bilaterally (radial, DP, PT) R chest Permacath - Neurological Exam Neurological Exam: Alert, Awake, Oriented x3 - Skin Skin Exam: Dry, Normal Color, Warm Assessment and Plan - Assessment and Plan (Free Text) Assessment: Mr. 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 However, cannot r/o Alport's syndrome - has not been compliant with eculizumab for last 4 months - Hgb 8.2 on admission - Type and cross -> transfused 2u PRBC 09/11 - Hgb 6.5 yesterday -> 5.7 today - will transfuse 2u PRBC with HD 09/13 - Heme consulted: Dr. Benites - dileep appreciated - Trend with AM labs Severe Thrombocytopenia - likely 2/2 atypical HUS - has not been compliant with eculizumab for last 4 months - Plts 6 on admission - DDAVP 20mcg and Solumedrol 125mg given prior to 2u platelet transfusion 09/11 - Plts 5 yesterday, another 2u Plts transfused 09/12 - Plts 37 today; unsure if improvement is d/t HD or steroids - cont Solumedrol 60mg IV q6 - Heme consulted: Dr. Benites - dileep appreciated - Trend with AM labs ESRD - BUN/Cr: 72/10.7 on admission - elevated from previous admission of Cr of 7s - has not had dialysis in the last 4 months, still producing urine - Vasc Surgery consulted: Dr. Philomena goodson appreciated Existing R chest Permacath flushed and still functional Blood Cx if concerned for long indwelling infection No surgical intervention at this time as vascular access intact and new access involves high risk with low platelets Signed off 09/11 - Nephro consulted: Dr. Hamilton goodson appreciated HD yesterday (09/11) evening Cont on MWF schedule [facility] with HD - BUN/Cr 94/7.2 today; for HD today - Trend with AM labs Code Sepsis - called for elevated WBC and tachycardia, suspected long time indwelling cath infection - CXR (09/11): mild pulmonary venous congestion - repeat CXR (09/12): pending read - no rashes, skin changes, sensitivities noticed on skin, including area surrounding catheter - UA (09/11): 3+ protein - VBG (09/11): pH 7.48, lactate 1.6 - procalcitonin (09/11): 0.85 - Given Zosyn 2.25gm and Vancomycin 1gm IV, Gentamicin 270mg once in ED - blood Cx (09/11): gram + bacilli, pending sensitivities - f/u blood Cx drawn from Permacath - Vancomycin 1gm IVPB daily (started 09/11) - random Vanc (09/12): 24.7 - Vanc trough @ 00:30am on Jessica 09/14 before 4th dose - Zosyn 2.25gm IVPB q8 (started 09/12) - WBC 12.9, downtrending. No longer tachycardic - Trend with AM labs Hypertension - home Norvasc 10mg po daily - home Coreg 6.25mg po bid - home Clonidine 0.2mg po tid - home hydralazine 25mg po tid - Monitor vitals Possible GI bleed - Hgb 8.2 on admission. Stool occult blood positive in ED - s/p transfusion 2u PRBC (09/11) - to receive another 2u PRBC in dialysis (09/13) - GI consulted: Dr. Earl goodson appreciated unlikely upper GI bleed no GI intervention, including endoscopy, indicated at this time rec Pepcid over Protonix if GI ppx indicated signed off 09/11 PPx - DVT: Chemical AC CI d/t severe thrombocytopenia, SCDs - GI: CI d/t severe thrombocytopenia - Diet: NPO -> FLD - Palliative Care consulted d/w Dr. Lillian Jacob PGY-1 <Romeo Snyder H - Last Filed: 09/13/18 17:58> Objective - Vital Signs/Intake and Output Vital Signs (last 24 hours): Temp Pulse Resp BP Pulse Ox 98.3 F 84 20 124/72 97 09/13/18 15:00 09/13/18 15:00 09/13/18 15:00 09/13/18 15:00 09/13/18 15:00 Intake and Output: 09/13/18 09/13/18 06:59 18:59 Intake Total 1235 Balance 1235 - Medications Medications: Current Medications Amlodipine Besylate (Norvasc) 10 mg PO DAILY [facility] Last Admin: 09/13/18 14:01 Dose: 10 mg Carvedilol (Coreg) 6.25 mg PO BID [facility] Last Admin: 09/13/18 10:41 Dose: Not Given Clonidine HCl (Catapres) 0.2 mg PO TID [facility] Last Admin: 09/13/18 14:01 Dose: 0.2 mg Epoetin Rod (Procrit) 4,000 unit IV MWF [facility] Last Admin: 09/13/18 13:18 Dose: 4,000 unit Hydralazine HCl (Apresoline) 25 mg PO Q8 [facility] Last Admin: 09/13/18 14:01 Dose: 25 mg Vancomycin HCl 1 gm/ Sodium (Chloride) 250 mls @ 166.7 mls/hr IVPB Q24H [facility]; Protocol Last Admin: 09/13/18 00:21 Dose: 166.7 mls/hr Piperacillin Sod/Tazobactam (Sod 2.25 gm/ Sodium Chloride) 100 mls @ 200 mls/hr IVPB Q8 [facility]; Protocol Last Admin: 09/13/18 14:05 Dose: 200 mls/hr Methylprednisolone (Solu-Medrol) 60 mg IV Q6 [facility] Last Admin: 09/13/18 14:00 Dose: 60 mg - Labs Labs: 09/13/18 07:43 09/13/18 07:43 PT 14.6 SECONDS (9.7-12.2) H 09/11/18 00:36 INR 1.3 09/11/18 00:36 APTT 35 SECONDS (21-34) H 09/11/18 00:36 Attending/Attestation - Attestation I have personally seen and examined this patient.: Yes I have fully participated in the care of the patient.: Yes I have reviewed all pertinent clinical information, including history, physical exam and plan: Yes Notes (Text): 09/13/18 17:56 Medical attending: Patient was seen and examined by me as well. Agree with the above note by the resident The patient was not in any acute distress when I came and saw the patient. The patient was getting HD again when we saw him. The platelet count is better today, also he is being transfused additional two units of PRBCs As mentioned previously this is a young 32 year old male with a history of atypical HUS who has not had HD for almost 4 months He often has very difficult to control anemia and also thrombocytopenia. Every time we have taken care of patient he has pancytopenia due to his disease Romeo Snyder
[2018-09-13] MEDS: EPOETIN ALFA 4,000 UNIT/ML ML Dialysis IV SCH (13:18)
--- NOTE | 2018-09-13 13:56 | CP.PCM.PN ---
Subjective - Date & Time of Evaluation Date of Evaluation: 09/13/18 Time of Evaluation: 13:54 - Subjective Subjective: s/p repeat dialysis now- UF 2000ml Was able to use same permcath Repeated prbcs blood transfusions for low Hg s/p plats transfusions Feels much better Not SOB, better appetite Seen by heme; has not had ecluzamab x few mos Objective - Vital Signs/Intake and Output Vital Signs (last 24 hours): Temp Pulse Resp BP Pulse Ox 97.6 F 70 16 134/92 H 98 09/13/18 12:14 09/13/18 12:14 09/13/18 12:14 09/13/18 12:15 09/13/18 09:40 Intake and Output: 09/13/18 09/13/18 06:59 18:59 Intake Total 635 Balance 635 - Medications Medications: Current Medications Amlodipine Besylate (Norvasc) 10 mg PO DAILY [facility] Last Admin: 09/13/18 10:41 Dose: Not Given Carvedilol (Coreg) 6.25 mg PO BID [facility] Last Admin: 09/13/18 10:41 Dose: Not Given Clonidine HCl (Catapres) 0.2 mg PO TID [facility] Last Admin: 09/13/18 10:41 Dose: Not Given Epoetin Rod (Procrit) 4,000 unit IV MWF [facility] Last Admin: 09/13/18 13:18 Dose: 4,000 unit Hydralazine HCl (Apresoline) 25 mg PO Q8 [facility] Last Admin: 09/13/18 05:35 Dose: 25 mg Vancomycin HCl 1 gm/ Sodium (Chloride) 250 mls @ 166.7 mls/hr IVPB Q24H [facility]; Protocol Last Admin: 09/13/18 00:21 Dose: 166.7 mls/hr Piperacillin Sod/Tazobactam (Sod 2.25 gm/ Sodium Chloride) 100 mls @ 200 mls/hr IVPB Q8 [facility]; Protocol Last Admin: 09/13/18 05:36 Dose: 200 mls/hr Methylprednisolone (Solu-Medrol) 60 mg IV Q6 [facility] Last Admin: 09/13/18 05:35 Dose: 60 mg - Labs Labs: 09/13/18 07:43 09/13/18 07:43 PT 14.6 SECONDS (9.7-12.2) H 09/11/18 00:36 INR 1.3 09/11/18 00:36 APTT 35 SECONDS (21-34) H 09/11/18 00:36 - Constitutional Appears: No Acute Distress, Chronically Ill - Head Exam Head Exam: ATRAUMATIC, NORMAL INSPECTION - Eye Exam Eye Exam: EOMI, Normal appearance - Neck Exam Neck Exam: Normal Inspection. absent: Tenderness - Respiratory Exam Respiratory Exam: Clear to Ausculation Bilateral, NORMAL BREATHING PATTERN - Cardiovascular Exam Cardiovascular Exam: REGULAR RHYTHM, +S1 - GI/Abdominal Exam GI & Abdominal Exam: Soft. absent: Tenderness - Extremities Exam Extremities Exam: Normal Inspection. absent: Tenderness - Neurological Exam Neurological Exam: Awake, CN II-XII Intact - Skin Skin Exam: Dry, Warm Assessment and Plan (1) Gastrointestinal hemorrhage Status: Acute (2) Thrombocytopenia Status: Acute (3) Dialysis catheter clot or failure Status: Acute (4) ESRD (end stage renal disease) Status: Acute (5) Hemolytic uremic syndrome Status: Acute (6) Hypertensive chronic kidney disease with stage 5 chronic kidney disease or end stage renal disease Status: Acute (7) Thrombocytopenia Status: Acute - Assessment and Plan (Free Text) Plan: Dialysis MWF Add ESAs check iron stores Heme f/u
[2018-09-13 20:03] LABS: IRON 126 ug/dL (49-181)
[2018-09-13 20:13] LABS: % IRON SATURATION 52 (20-55); TOTAL IRON BINDING CAPACITY 243 ug/dL (250-450)
[2018-09-14] MEDS: MethylPREDNISolone 40 mg Vial IV SCH ×5 (01:52→23:40)
[2018-09-14] MEDS: Piperacillin/Tazobact 2.25 GM in Sodium Chloride 100 ML IVPB SCH ×3 (05:39→21:35)
[2018-09-14 08:06] LABS: MONO # 0.6 K/uL (0.0-0.8)
[2018-09-14 08:25] LABS: BASO % 0.2 % (0.0-2.0); LYMPH # 2.6 K/uL (1.0-4.3); LYMPH % 20.1 % (20.0-40.0); MEAN CORPUSCULAR HEMOGLOBIN 28.4 pg (27.0-31.0); MEAN CORPUSCULAR HGB CONC 33.6 g/dL (33.0-37.0); MEAN PLATELET VOLUME 7.4 fL (7.2-11.7); MONO % 4.7 % (0.0-10.0); NEUT # 9.7 K/uL (1.8-7.0); NRBC % 0.4 % (0.0-2.0); RBC 2.82 Mil/uL (4.40-5.90); WHITE BLOOD COUNT 12.9 K/uL (4.8-10.8)
[2018-09-14 08:28] LABS: MEAN CELL VOLUME 84.7 fL (80.0-94.0)
[2018-09-14 08:30] LABS: ALB/GLOB RATIO 1.3 (1.0-2.1); ALBUMIN 3.1 g/dL (3.5-5.0); CALCIUM 8.1 mg/dl (8.6-10.4)
--- NOTE | 2018-09-14 09:35 | CP.PCM.PN ---
<Angelica Jacob - Last Filed: 09/14/18 12:51> Subjective - Date & Time of Evaluation Date of Evaluation: 09/14/18 Time of Evaluation: 07:30 - Subjective Subjective: PGY-1 Medicine Progress Note for Dr. Snyder Patient was seen and examined today at bedside in no acute distress. Nursing reports no overnight events. Patient reports poor sleep as he is woken up throughout the night for vitals, bloodwork, etc. Denies any pain, headache, dizziness, fatigue, nausea, vomiting, constipation, diarrhea, nosebleeds. Was able to urinate and have BM normally yesterday. Objective - Vital Signs/Intake and Output Vital Signs (last 24 hours): Temp Pulse Resp BP Pulse Ox 98.5 F 79 18 141/76 96 09/14/18 08:31 09/14/18 09:32 09/14/18 08:31 09/14/18 09:32 09/14/18 08:31 Intake and Output: 09/14/18 09/14/18 06:59 18:59 Intake Total 470 Balance 470 - Medications Medications: Current Medications Amlodipine Besylate (Norvasc) 10 mg PO DAILY [facility] Last Admin: 09/14/18 09:29 Dose: 10 mg Carvedilol (Coreg) 6.25 mg PO BID [facility] Last Admin: 09/14/18 09:29 Dose: 6.25 mg Clonidine HCl (Catapres) 0.2 mg PO TID [facility] Last Admin: 09/14/18 09:29 Dose: 0.2 mg Epoetin Rod (Procrit) 4,000 unit IV MWF [facility] Last Admin: 09/13/18 13:18 Dose: 4,000 unit Hydralazine HCl (Apresoline) 25 mg PO Q8 [facility] Last Admin: 09/14/18 05:39 Dose: 25 mg Vancomycin HCl 1 gm/ Sodium (Chloride) 250 mls @ 166.7 mls/hr IVPB Q24H [facility]; Protocol Last Admin: 09/14/18 01:52 Dose: 166.7 mls/hr Piperacillin Sod/Tazobactam (Sod 2.25 gm/ Sodium Chloride) 100 mls @ 200 mls/hr IVPB Q8 [facility]; Protocol Last Admin: 09/14/18 05:39 Dose: 200 mls/hr Methylprednisolone (Solu-Medrol) 60 mg IV Q6 [facility] Last Admin: 09/14/18 05:42 Dose: 60 mg - Labs Labs: 09/14/18 07:56 09/14/18 07:56 PT 14.6 SECONDS (9.7-12.2) H 09/11/18 00:36 INR 1.3 09/11/18 00:36 APTT 35 SECONDS (21-34) H 09/11/18 00:36 - Constitutional Appears: Non-toxic, No Acute Distress - Head Exam Head Exam: ATRAUMATIC, NORMOCEPHALIC Additional comments: bilateral hearing aids - Eye Exam Eye Exam: EOMI, PERRL - ENT Exam ENT Exam: Mucous Membranes Moist - Respiratory Exam Respiratory Exam: Clear to Ausculation Bilateral, NORMAL BREATHING PATTERN. absent: Rales, Rhonchi, Wheezes - Cardiovascular Exam Cardiovascular Exam: REGULAR RHYTHM, +S1, +S2. absent: Gallop, Rubs, Murmur - GI/Abdominal Exam GI & Abdominal Exam: Soft, Normal Bowel Sounds. absent: Tenderness - Extremities Exam Additional comments: IV access in bilateral forearms peripheral pulses palpable bilaterally (radial, DP, PT) R chest Permacath - Neurological Exam Neurological Exam: Alert, Awake, Oriented x3 - Skin Skin Exam: Dry, Normal Color, Warm Assessment and Plan - Assessment and Plan (Free Text) Assessment: Mr. 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 His symptoms have resolved. He is not awaiting placement for outpatient HD. 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 However, cannot r/o Alport's syndrome - has not been compliant with eculizumab for last 4 months - Hgb 8.2 on admission - Type and cross -> transfused 2u PRBC 09/11 -> Hgb 6.5 - Hgb 5.7 on 09/13 -> transfused 2u PRBC with HD -> Hgb 8.0 - Heme consulted: Dr. Benites - help appreciated - Trend with AM labs - Hgb 8.0 today - continue to transfuse prn with HD Severe Thrombocytopenia - likely 2/2 atypical HUS - has not been compliant with eculizumab for last 4 months - Plts 6 on admission - DDAVP 20mcg and Solumedrol 125mg given prior to 2u platelet transfusion 09/11 - Plts 5 -> another 2u Plts transfused 09/12 -> Plts 37 - cont Solumedrol 60mg IV q6 - Heme consulted: Dr. Benites - dileep appreciated - Trend with AM labs - Plts 27 today - continue to transfuse prn ESRD - BUN/Cr: 72/10.7 on admission - elevated from previous admission of Cr of 7s - has not had dialysis in the last 4 months, still producing urine - Vasc Surgery consulted: Dr. Philomena goodson appreciated Existing R chest Permacath flushed and still functional Blood Cx if concerned for long indwelling infection No surgical intervention at this time as vascular access intact and new a ccess involves high risk with low platelets Signed off 09/11 - Nephro consulted: Dr. Hamilton goodson appreciated Cont on MWF schedule EPO with HD - BUN/Cr 50/4.9 today; for HD tomorrow 09/15 - Trend with AM labs Code Sepsis - called for elevated WBC and tachycardia, suspected long time indwelling cath infection - CXR (09/11): mild pulmonary venous congestion - repeat CXR (09/12): pending read - no rashes, skin changes, sensitivities noticed on skin, including area surro unding catheter - UA (09/11): 3+ protein - VBG (09/11): pH 7.48, lactate 1.6 - procalcitonin (09/11): 0.85 - Given Zosyn 2.25gm and Vancomycin 1gm IV, Gentamicin 270mg once in ED - blood Cx (09/11): Cornebacterium speices, no guidelines on sensitivities - blood Cx drawn from Permacath (09/12): no growth @ 24hrs - Vancomycin 1gm IVPB daily (started 09/11) - random Vanc (09/12): 24.7 - Vanc trough @ 0030am Jessica 09/14: 18.9 -> hold for one day - Vanc trough @ 0030am on 09/19 before 8th dose - Zosyn 2.25gm IVPB q8 (started 09/12) - WBC 12.9, downtrending. No longer tachycardic - Trend with AM labs Hypertension - home Norvasc 10mg po daily - home Coreg 6.25mg po bid - home Clonidine 0.2mg po tid - home hydralazine 25mg po tid - Monitor vitals Possible GI bleed - Hgb 8.2 on admission. Stool occult blood positive in ED - s/p transfusion 2u PRBC (09/11) - to receive another 2u PRBC in dialysis (09/13) - GI consulted: Dr. Elliott - kellee appreciated unlikely upper GI bleed no GI intervention, including endoscopy, indicated at this time rec Pepcid over Protonix if GI ppx indicated signed off 09/11 PPx - DVT: Chemical AC CI d/t severe thrombocytopenia, SCDs - GI: CI d/t severe thrombocytopenia - Diet: FLD -> Diabetic Soft diet - Palliative Care consulted: seen today 09/14 - Dispo: Patient has lost previous HD chair. has begun looking for an outpatient HD center who will accept him with [facility]. d/w Dr. Lillian Jacob PGY-1 <Romeo Snyder - Last Filed: 09/14/18 13:41> Objective - Vital Signs/Intake and Output Vital Signs (last 24 hours): Temp Pulse Resp BP Pulse Ox 98.5 F 74 18 141/76 96 09/14/18 08:31 09/14/18 12:27 09/14/18 08:31 09/14/18 09:32 09/14/18 08:31 Intake and Output: 09/14/18 09/14/18 06:59 18:59 Intake Total 470 Balance 470 - Medications Medications: Current Medications Amlodipine Besylate (Norvasc) 10 mg PO DAILY [facility] Last Admin: 09/14/18 09:29 Dose: 10 mg Carvedilol (Coreg) 6.25 mg PO BID [facility] Last Admin: 09/14/18 09:29 Dose: 6.25 mg Clonidine HCl (Catapres) 0.2 mg PO TID [facility] Last Admin: 09/14/18 13:24 Dose: 0.2 mg Epoetin Rod (Procrit) 4,000 unit IV MWF [facility] Last Admin: 09/13/18 13:18 Dose: 4,000 unit Hydralazine HCl (Apresoline) 25 mg PO Q8 [facility] Last Admin: 09/14/18 13:24 Dose: 25 mg Vancomycin HCl 1 gm/ Sodium (Chloride) 250 mls @ 166.7 mls/hr IVPB Q24H [facility]; Protocol Last Admin: 09/14/18 01:52 Dose: 166.7 mls/hr Piperacillin Sod/Tazobactam (Sod 2.25 gm/ Sodium Chloride) 100 mls @ 200 mls/hr IVPB Q8 [facility]; Protocol Last Admin: 09/14/18 05:39 Dose: 200 mls/hr Methylprednisolone (Solu-Medrol) 60 mg IV Q6 [facility] Last Admin: 09/14/18 13:00 Dose: 60 mg - Labs Labs: 09/14/18 07:56 09/14/18 07:56 PT 14.6 SECONDS (9.7-12.2) H 09/11/18 00:36 INR 1.3 09/11/18 00:36 APTT 35 SECONDS (21-34) H 09/11/18 00:36 Attending/Attestation - Attestation I have personally seen and examined this patient.: Yes I have fully participated in the care of the patient.: Yes I have reviewed all pertinent clinical information, including history, physical exam and plan: Yes Notes (Text): 09/14/18 13:27 Medical attending: Patient was seen and examined by me. Agree with the above note by the resident The patient was reporting he felt much better now, he again had HD last night. He had PRBC's during HD last night and today the Hgb is increased. The platelet count slightly decrease as well to 27. It maybe that we are now seeing a response in the PRBC and platelet count since he is now having both HD and solumedrol. Also from what I am being told, the patient's outpatient HD spot is now gone. The patient had not gone there for such a long time that he lost his spot. Romeo Snyder
--- NOTE | 2018-09-14 10:11 | CP.PCM.PN ---
Subjective - Date & Time of Evaluation Date of Evaluation: 09/14/18 Time of Evaluation: 10:08 - Subjective Subjective: s/p dialysis 09/13 Hg increased to 8.0 post transfusion feels bettr better appetite, no dyspnea TSAT>50% Objective - Vital Signs/Intake and Output Vital Signs (last 24 hours): Temp Pulse Resp BP Pulse Ox 98.5 F 79 18 141/76 96 09/14/18 08:31 09/14/18 09:32 09/14/18 08:31 09/14/18 09:32 09/14/18 08:31 Intake and Output: 09/14/18 09/14/18 06:59 18:59 Intake Total 470 Balance 470 - Medications Medications: Current Medications Amlodipine Besylate (Norvasc) 10 mg PO DAILY [facility] Last Admin: 09/14/18 09:29 Dose: 10 mg Carvedilol (Coreg) 6.25 mg PO BID [facility] Last Admin: 09/14/18 09:29 Dose: 6.25 mg Clonidine HCl (Catapres) 0.2 mg PO TID [facility] Last Admin: 09/14/18 09:29 Dose: 0.2 mg Epoetin Rod (Procrit) 4,000 unit IV MWF [facility] Last Admin: 09/13/18 13:18 Dose: 4,000 unit Hydralazine HCl (Apresoline) 25 mg PO Q8 [facility] Last Admin: 09/14/18 05:39 Dose: 25 mg Vancomycin HCl 1 gm/ Sodium (Chloride) 250 mls @ 166.7 mls/hr IVPB Q24H [facility]; Protocol Last Admin: 09/14/18 01:52 Dose: 166.7 mls/hr Piperacillin Sod/Tazobactam (Sod 2.25 gm/ Sodium Chloride) 100 mls @ 200 mls/hr IVPB Q8 [facility]; Protocol Last Admin: 09/14/18 05:39 Dose: 200 mls/hr Methylprednisolone (Solu-Medrol) 60 mg IV Q6 [facility] Last Admin: 09/14/18 05:42 Dose: 60 mg - Labs Labs: 09/14/18 07:56 09/14/18 07:56 PT 14.6 SECONDS (9.7-12.2) H 09/11/18 00:36 INR 1.3 09/11/18 00:36 APTT 35 SECONDS (21-34) H 09/11/18 00:36 - Constitutional Appears: No Acute Distress, Chronically Ill - Head Exam Head Exam: ATRAUMATIC, NORMAL INSPECTION - Eye Exam Eye Exam: EOMI, Normal appearance - Neck Exam Neck Exam: Normal Inspection. absent: Tenderness - Respiratory Exam Respiratory Exam: Clear to Ausculation Bilateral, NORMAL BREATHING PATTERN - Cardiovascular Exam Cardiovascular Exam: REGULAR RHYTHM, +S1 - GI/Abdominal Exam GI & Abdominal Exam: Soft. absent: Tenderness - Extremities Exam Extremities Exam: Normal Inspection. absent: Tenderness - Neurological Exam Neurological Exam: Alert, CN II-XII Intact - Skin Skin Exam: Dry, Warm Assessment and Plan (1) Gastrointestinal hemorrhage Status: Acute (2) Thrombocytopenia Status: Acute (3) Dialysis catheter clot or failure Status: Acute (4) ESRD (end stage renal disease) Status: Acute (5) Hemolytic uremic syndrome Status: Acute (6) Hypertensive chronic kidney disease with stage 5 chronic kidney disease or end stage renal disease Status: Acute (7) Thrombocytopenia Status: Acute - Assessment and Plan (Free Text) Plan: Dialysis [facility] outpt HD placement Trial EPO- but not successful before
--- NOTE | 2018-09-14 12:40 | CP.PCM.CON ---
History of Present Illness - History of Present Illness History of Present Illness: Palliative consult requested by Doctor Jacob for goals of care discussion Patient is a 32 yo male admitted from home with nausea and hematemesis X 3 days. Gi consult was called in ED and Doctor Pipo added H2 blockers and sug gested ENT consult if bleeding persisted. Patient was also found to be with severe thrombocytopenia, Plt 5.1 and low Hb of 5.7. Patient received blood transfusion and FFp transfusion. During this hospital stay patient had received many blood transfusins. The last one was yesterday during HD for Hb of 6.5. Today his Hb is 8.0 and platelets 27. Patient stopped HD for ESRD 4 months ago and was not compliant with his Eculizumab meds for management of thrombocytopenia. Doctor Hamilton spoke to patient regarding the need for HD. Palliative care was called to further discuss goals of care with patient PMH: HTN, ESRD, hrombocytopenia, HUS Soc. Hx: single, lives with his friends, undocumented in [facility], works with his friends at [employer] Hx: father when patient was age of 4, his mother and half sister are in [facility] Review of Systems - Constitutional Constitutional: Daytime Sleepiness - EENT Eyes: absent: As Per HPI, Blind Spots, Blurred Vision, Change in Vision, Decreased Night Vision, Diplopia, Discharge, Dry Eye, Exophthalmos, Floaters, Irritation, Itchy Eyes, Loss of Peripheral Vision, Pain, Photophobia, Requires Corrective Lenses, Sees Flashes, Spots in Vision, Tunnel Vision, Other Visual Disturbances, Loss of Vision, Other Ears: Decreased Hearing Nose/Mouth/Throat: absent: As Per HPI, Epistaxis, Nasal Congestion, Nasal Discharge, Nasal Obstruction, Nasal Trauma, Nose Pain, Post Nasal Drip, Sinus Pain, Sinus Pressure, Bleeding Gums, Change in Voice, Dental Pain, Dry Mouth, Dysphagia, Halitosis, Hoarsness, Lip Swelling, Mouth Lesions, Mouth Pain, Odynophagia, Sore Throat, Throat Swelling, Tongue Swelling, Facial Pain, Neck Pain, Neck Mass, Other - Cardiovascular Cardiovascular: absent: As Per HPI, Acrocyanosis, Chest Pain, Chest Pain at Rest, Chest Pain with Activity, Claudication, Diaphoresis, Dyspnea, Dyspnea on Exertion, Edema, Irregular Heart Rhythm, Pain Radiating to Arm/Neck/Jaw, Leg Edema, Leg Ulcers, Lightheadedness, Orthopnea, Palpitations, Paroxysmal Nocturnal Dyspnea, Pedal Edema, Radiating Pain, Rapid Heart Rate, Slow Heart Rate, Syncope, Other - Respiratory Respiratory: Snoring - Gastrointestinal Gastrointestinal: Hematemesis - Genitourinary Additional comments: On HD - Musculoskeletal Musculoskeletal: absent: As Per HPI, Abnormal Gait, Arthralgias, Atrophy, Back Pain, Deformity, Joint Swelling, Limited Range of Motion, Loss of Height, Muscle Cramps, Muscle Weakness, Myalgias, Neck Pain, Numbness, Radiating Pain into Limb, Stiffness, Tingling, Other - Integumentary Integumentary: absent: As Per HPI, Acne, Alopecia, Bleeding Lesions, Change in Hair, Change in Nails, Change in Pigmentation, Changing Lesions, Dry Skin, Erythema, Furuncle, Hirsutism, Lesions, New Lesions, Non-Healing Lesions, Photosensitivity, Pruritus, Rash, Skin Pain, Skin Ulcer, Sores, Striae, Swelling, Unusual Bruising, Wounds, Jaundice, Other - Neurological Neurological: absent: As Per HPI, Abnormal Gait, Abnormal Hearing, Abnormal Movements, Abnormal Speech, Behavioral Changes, Burning Sensations, Confusion, Convulsions, Disequilibrium, Dizziness, Numbness, Focal Weakness, Frequent Falls, Headaches, Lack of Coordination, Loss of Vision, Memory Loss, Paresthesias, Radicular Pain, Restless Legs, Sensory Deficit, Syncope, Tingling, Tremor, Vertigo, Weakness, Other Visual Disturbances, Other - Psychiatric Psychiatric: absent: As Per HPI, Abnormal Sleep Pattern, Anhedonia, Anxiety, Auditory Hallucinations, Behavioral Changes, Change in Appetite, Change in Libido, Confusion, Depression, Difficulty Concentrating, Hallucinations, Homicidal Ideation, Hopelessness, Irritability, Memory Loss, Mood Swings, Panic Attacks, Paranoia, Suicidal Ideation, Visual Hallucinations, Tactile Hallucinations, Other - Endocrine Endocrine: absent: As Per HPI, Change in Body Appearance, Change in Libido, Cold Intolorance, Deepening of Voice, Excessive Sweating, Fatigue, Flushing, Heat Intolorance, Increase in Ring/Shoe/Hat Size, Palpitations, Polydipsia, Polyphagia, Polyuria, Other - Hematologic/Lymphatic Hematologic: Easy Bleeding Past Patient History - Infectious Disease Hx of Infectious Diseases: None - Past Medical History & Family History Past Medical History?: Yes Past Family History: Reviewed and not pertinent - Past Social History Smoking Status: Never Smoked Chewing Tobacco Use: No Cigar Use: No Alcohol: None Drugs: Denies Home Situation {Lives}: Alone - CARDIAC Hx Hypertension: Yes - PULMONARY Hx Respiratory Disorders: No - NEUROLOGICAL Hx Neurological Disorder: No - HEENT Hx HEENT Problems: Yes Hx Deafness: (LEFT HEARING AID) Other/Comment: HEARING IMPAIRED - RENAL Hx Chronic Kidney Disease: Yes - ENDOCRINE/METABOLIC Hx Endocrine Disorders: No - HEMATOLOGICAL/ONCOLOGICAL Hx Blood Disorders: Yes Other/Comment: Thrombocytopenia - INTEGUMENTARY Hx Dermatological Problems: No - MUSCULOSKELETAL/RHEUMATOLOGICAL Hx Musculoskeletal Disorders: No - GASTROINTESTINAL Hx Gastrointestinal Disorders: No - GENITOURINARY/GYNECOLOGICAL Hx Genitourinary Disorders: No - PSYCHIATRIC Hx Substance Use: No - SURGICAL HISTORY Hx Surgeries: Yes Other/Comment: peritoneal dialysis catheter 05/2017. right chest wall permacath - ANESTHESIA Hx Anesthesia: Yes Hx Anesthesia Reactions: No Hx Malignant Hyperthermia: No Meds Allergies/Adverse Reactions: Allergies Allergy/AdvReac Type Severity Reaction Status Date / Time aspirin AdvReac ANAPHYLAXIS Verified 09/10/18 23:59 - Medications Medications: Current Medications Amlodipine Besylate (Norvasc) 10 mg PO DAILY [facility] Last Admin: 09/14/18 09:29 Dose: 10 mg Carvedilol (Coreg) 6.25 mg PO BID [facility] Last Admin: 09/14/18 09:29 Dose: 6.25 mg Clonidine HCl (Catapres) 0.2 mg PO TID [facility] Last Admin: 09/14/18 09:29 Dose: 0.2 mg Epoetin Rod (Procrit) 4,000 unit IV MWF [facility] Last Admin: 09/13/18 13:18 Dose: 4,000 unit Hydralazine HCl (Apresoline) 25 mg PO Q8 [facility] Last Admin: 09/14/18 05:39 Dose: 25 mg Vancomycin HCl 1 gm/ Sodium (Chloride) 250 mls @ 166.7 mls/hr IVPB Q24H [facility]; Protocol Last Admin: 09/14/18 01:52 Dose: 166.7 mls/hr Piperacillin Sod/Tazobactam (Sod 2.25 gm/ Sodium Chloride) 100 mls @ 200 mls/hr IVPB Q8 [facility]; Protocol Last Admin: 09/14/18 05:39 Dose: 200 mls/hr Methylprednisolone (Solu-Medrol) 60 mg IV Q6 [facility] Last Admin: 09/14/18 05:42 Dose: 60 mg Physical Exam - Constitutional Appears: Chronically Ill - Head Exam Head Exam: ATRAUMATIC, NORMAL INSPECTION, NORMOCEPHALIC - Eye Exam Eye Exam: EOMI, Normal appearance, PERRL Pupil Exam: NORMAL ACCOMODATION, PERRL - ENT Exam ENT Exam: Mucous Membranes Moist, Normal Exam - Neck Exam Neck exam: Positive for: Normal Inspection - Respiratory Exam Respiratory Exam: Clear to Auscultation Bilateral, NORMAL BREATHING PATTERN - Cardiovascular Exam Cardiovascular Exam: REGULAR RHYTHM, +S1, +S2 - GI/Abdominal Exam GI & Abdominal Exam: Normal Bowel Sounds, Soft - Rectal Exam Rectal Exam: Deferred - Extremities Exam Extremities exam: Positive for: normal inspection - Back Exam Back exam: NORMAL INSPECTION - Neurological Exam Neurological exam: Alert, Oriented x3 - Psychiatric Exam Psychiatric exam: Normal Affect, Normal Mood - Skin Skin Exam: Dry, Intact, Pallor, Warm Results - Vital Signs Recent Vital Signs: Last Vital Signs Temp 98.5 F 09/14/18 08:31 Pulse 74 09/14/18 12:27 Resp 18 09/14/18 08:31 BP 141/76 09/14/18 09:32 Pulse Ox 96 09/14/18 08:31 - Labs Result Diagrams: 09/14/18 07:56 09/14/18 07:56 Labs: Laboratory Results - last 24 hr 09/13/18 09/13/18 09/14/18 19:39 19:39 01:19 WBC RBC Hgb Hct MCV MCH MCHC RDW Plt Count MPV Neut % (Auto) Lymph % (Auto) [place] % (Auto) Eos % (Auto) Baso % (Auto) Neut # (Auto) Lymph # (Auto) [place] # (Auto) Eos # (Auto) Baso # (Auto) Differential Comment Sodium Potassium Chloride Carbon Dioxide Anion Gap BUN Creatinine Est GFR ( Amer) Est GFR (Non-Af Amer) Random Glucose Calcium Iron 126 TIBC 243 L % Saturation 52 Ferritin 182.0 Total Bilirubin AST ALT Alkaline Phosphatase Total Protein Albumin Globulin Albumin/Globulin Ratio Vancomycin Trough 18.9 H 09/14/18 09/14/18 07:56 07:56 WBC 12.9 H RBC 2.82 L Hgb 8.0 L D Hct 23.9 L MCV 84.7 D MCH 28.4 MCHC 33.6 RDW 17.0 H Plt Count 27 L* D MPV 7.4 Neut % (Auto) 75.0 Lymph % (Auto) 20.1 [place] % (Auto) 4.7 Eos % (Auto) 0.0 Baso % (Auto) 0.2 Neut # (Auto) 9.7 H Lymph # (Auto) 2.6 [place] # (Auto) 0.6 Eos # (Auto) 0.0 Baso # (Auto) 0.0 Differential Comment Sodium 136 Potassium 3.7 Chloride 100 Carbon Dioxide 27 Anion Gap 12 BUN 50 H Creatinine 4.9 H Est GFR ( Amer) 17 Est GFR (Non-Af Amer) 14 Random Glucose 131 H Calcium 8.1 L Iron TIBC % Saturation Ferritin Total Bilirubin 0.6 AST 33 ALT 44 Alkaline Phosphatase 74 Total Protein 5.6 L Albumin 3.1 L Globulin 2.4 Albumin/Globulin Ratio 1.3 Vancomycin Trough Assessment & Plan - Assessment and Plan (Free Text) Assessment: Palliative consult Full Code, there is no Advance directive on chart, PPS60% I reviewed medical records, and diagnostic studies, examined and interviewed patient in the bed. In demand translation used. Patient is alert, oriented X 3, Sanish speaking only. Patient is not in any acute distress. Was sleeping saying he did not sleep well last night. His face looks puffy. Denies further nose bleeds. Last Hd yesterday. patient able to produce some urine. 400 cc yesterday. Breathing is normal and regular RR.Abdomen soft, denies nausea, vomiting, reports fair appetite. patient is ambulatory. Skin is pale. No abnormal bleeding noted. BP 141/73. Patient is on Hydralizine, Coreg, Norvasc and Catapress for BP control Plt 27, Hb 8.0 Using translation to Macedonian, I reviewed patient's clinical presentation and elicited his understanding about his diagnosis and overall condition. Patient stated awarness of his poor kidney functions. I questioned his decision to stop HD 4 months ago . Patient reported having very severe side effects such as heada babak and nausea while was on HD. patient also reported not feeling welcomed at the HD place and decided no to go any longer. I reviewed the influence of poor kidney function on overall health and poss ibility of . Patient acknowledged it. He defends his action by the need to work and support his life. Patient is not planing on returning to his home country as he felt that here in [facility] he is able to get better medical care. Code status discussed. Patient stated that he " wanted to live" and to have all life support measures applied to support his life. Once again I stressed out how he contraindicates him self by avoiding HD and wanting to stay alive at the same time. patient agreed to be more compliant with HD. Impression * ESRD * Non compliance with ordered HD * Thrombocytopenia * Anemia * Patient sounds unreasonable in his approach to necessary Medical care. He is still not sure if he was going to regularly attend HD. * Patient requires to be a Full Code and have all interventions applied to support his life * Lack of family support * psychosocial issues Suggestions * Continue HD and arrange HD as an outpatient * FFP for thrombocytopenia * Instruct patient on discharge to fallow up with his Doctor if side effects of HD occur again and get those symptoms treated * Monitor for acute blood loss * Full Code Advance care planing 50 min Palliative care will sign off at this time. Thank you for allowing me to assist you in care of this patient.
--- NOTE | 2018-09-14 20:02 | CP.PCM.PN ---
Subjective - Date & Time of Evaluation Date of Evaluation: 09/12/18 Time of Evaluation: 12:00 - Subjective Subjective: Feeling better s/p transfusions Objective - Vital Signs/Intake and Output Vital Signs (last 24 hours): Temp Pulse Resp BP Pulse Ox 98 F 72 20 125/70 98 09/14/18 15:32 09/14/18 15:32 09/14/18 15:32 09/14/18 15:32 09/14/18 15:32 Intake and Output: 09/14/18 09/15/18 18:59 06:59 Intake Total 360 Balance 360 - Medications Medications: Current Medications Amlodipine Besylate (Norvasc) 10 mg PO DAILY [facility] Last Admin: 09/14/18 09:29 Dose: 10 mg Carvedilol (Coreg) 6.25 mg PO BID [facility] Last Admin: 09/14/18 17:31 Dose: 6.25 mg Clonidine HCl (Catapres) 0.2 mg PO TID [facility] Last Admin: 09/14/18 17:31 Dose: 0.2 mg Epoetin Rod (Procrit) 4,000 unit IV MWF [facility] Last Admin: 09/13/18 13:18 Dose: 4,000 unit Hydralazine HCl (Apresoline) 25 mg PO Q8 [facility] Last Admin: 09/14/18 13:24 Dose: 25 mg Vancomycin HCl 1 gm/ Sodium (Chloride) 250 mls @ 166.7 mls/hr IVPB Q24H [facility]; Protocol Last Admin: 09/14/18 01:52 Dose: 166.7 mls/hr Piperacillin Sod/Tazobactam (Sod 2.25 gm/ Sodium Chloride) 100 mls @ 200 mls/hr IVPB Q8 [facility]; Protocol Last Admin: 09/14/18 13:44 Dose: 200 mls/hr Methylprednisolone (Solu-Medrol) 60 mg IV Q6 [facility] Last Admin: 09/14/18 17:31 Dose: 60 mg - Labs Labs: 09/14/18 07:56 09/14/18 07:56 PT 14.6 SECONDS (9.7-12.2) H 09/11/18 00:36 INR 1.3 09/11/18 00:36 APTT 35 SECONDS (21-34) H 09/11/18 00:36 - Head Exam Head Exam: ATRAUMATIC - Eye Exam Eye Exam: Normal appearance - ENT Exam ENT Exam: Mucous Membranes Dry - Respiratory Exam Respiratory Exam: NORMAL BREATHING PATTERN - Cardiovascular Exam Cardiovascular Exam: +S1, +S2 - GI/Abdominal Exam GI & Abdominal Exam: Normal Bowel Sounds Assessment and Plan (1) HUS (hemolytic uremic syndrome), atypical Assessment & Plan: poor response to eculizumab; noncompliant with therapy for several months Status: Chronic (2) Thrombocytopenia Assessment & Plan: secondary to atypical HUS; noncompliant with treatment s/p platelet transfusion Status: Chronic (3) Anemia Assessment & Plan: acute blood loss anemia of CKD; GALE per renal transfusion support Status: Acute (4) Elevated WBC count Assessment & Plan: on antibiotics Status: Chronic
--- NOTE | 2018-09-14 20:09 | CP.PCM.PN ---
Subjective - Date & Time of Evaluation Date of Evaluation: 09/14/18 Time of Evaluation: 19:00 - Subjective Subjective: Feeling better Objective - Vital Signs/Intake and Output Vital Signs (last 24 hours): Temp Pulse Resp BP Pulse Ox 98 F 72 20 125/70 98 09/14/18 15:32 09/14/18 15:32 09/14/18 15:32 09/14/18 15:32 09/14/18 15:32 Intake and Output: 09/14/18 09/15/18 18:59 06:59 Intake Total 360 Balance 360 - Medications Medications: Current Medications Amlodipine Besylate (Norvasc) 10 mg PO DAILY [facility] Last Admin: 09/14/18 09:29 Dose: 10 mg Carvedilol (Coreg) 6.25 mg PO BID [facility] Last Admin: 09/14/18 17:31 Dose: 6.25 mg Clonidine HCl (Catapres) 0.2 mg PO TID [facility] Last Admin: 09/14/18 17:31 Dose: 0.2 mg Epoetin Rod (Procrit) 4,000 unit IV MWF [facility] Last Admin: 09/13/18 13:18 Dose: 4,000 unit Hydralazine HCl (Apresoline) 25 mg PO Q8 [facility] Last Admin: 09/14/18 13:24 Dose: 25 mg Vancomycin HCl 1 gm/ Sodium (Chloride) 250 mls @ 166.7 mls/hr IVPB Q24H [facility]; Protocol Last Admin: 09/14/18 01:52 Dose: 166.7 mls/hr Piperacillin Sod/Tazobactam (Sod 2.25 gm/ Sodium Chloride) 100 mls @ 200 mls/hr IVPB Q8 [facility]; Protocol Last Admin: 09/14/18 13:44 Dose: 200 mls/hr Methylprednisolone (Solu-Medrol) 60 mg IV Q6 [facility] Last Admin: 09/14/18 17:31 Dose: 60 mg - Labs Labs: 09/14/18 07:56 09/14/18 07:56 PT 14.6 SECONDS (9.7-12.2) H 09/11/18 00:36 INR 1.3 09/11/18 00:36 APTT 35 SECONDS (21-34) H 09/11/18 00:36 - Head Exam Head Exam: ATRAUMATIC - Eye Exam Eye Exam: Normal appearance - ENT Exam ENT Exam: Mucous Membranes Dry - Respiratory Exam Respiratory Exam: NORMAL BREATHING PATTERN - Cardiovascular Exam Cardiovascular Exam: +S1, +S2 - GI/Abdominal Exam GI & Abdominal Exam: Normal Bowel Sounds Assessment and Plan (1) HUS (hemolytic uremic syndrome), atypical Assessment & Plan: poor response to eculizumab; noncompliant with therapy for several months Status: Chronic (2) Thrombocytopenia Assessment & Plan: secondary to atypical HUS; noncompliant with treatment transfuse platelets given bleeding Status: Chronic (3) Anemia Assessment & Plan: GI blood loss anemia of CKD; GALE per renal transfusion support Status: Acute (4) Elevated WBC count Assessment & Plan: on antibiotics Status: Chronic
[2018-09-15] MEDS: MethylPREDNISolone 40 mg Vial IV SCH ×4 (05:41→23:52)
[2018-09-15] MEDS: Piperacillin/Tazobact 2.25 GM in Sodium Chloride 100 ML IVPB SCH ×3 (05:45→21:21)
[2018-09-15 07:37] LABS: BASO % 0.2 % (0.0-2.0); LYMPH # 2.3 K/uL (1.0-4.3); MEAN CELL VOLUME 85.2 fL (80.0-94.0); MEAN CORPUSCULAR HEMOGLOBIN 28.3 pg (27.0-31.0); MEAN CORPUSCULAR HGB CONC 33.2 g/dL (33.0-37.0); MEAN PLATELET VOLUME 7.9 fL (7.2-11.7); MONO # 1.3 K/uL (0.0-0.8); MONO % 9.1 % (0.0-10.0); NEUT # 10.5 K/uL (1.8-7.0); NEUT % 74.7 % (50.0-75.0); NRBC % 0.8 % (0.0-2.0); RBC 2.83 Mil/uL (4.40-5.90); RED CELL DISTRIBUTION WIDTH 17.1 % (11.5-14.5)
[2018-09-15 09:13] LABS: ALB/GLOB RATIO 1.2 (1.0-2.1); ALBUMIN 3.1 g/dL (3.5-5.0)
--- NOTE | 2018-09-15 09:55 | CP.PCM.PN ---
Subjective - Date & Time of Evaluation Date of Evaluation: 09/15/18 Time of Evaluation: 07:30 - Subjective Subjective: PGY-1 Medicine Progress Note for Dr. Hernández covering for Dr. Snyder Patient was seen and examined today at bedside in no acute distress. Nursing reports no overnight events. Patient reports another night poor sleep as he is woken up throughout the night for vitals, bloodwork, etc. Denies any pain, headache, dizziness, fatigue, nausea, vomiting, constipation, diarrhea, nosebleeds. Is able to urinate and have BM normally. Objective - Vital Signs/Intake and Output Vital Signs (last 24 hours): Temp Pulse Resp BP Pulse Ox 98.2 F 77 20 141/82 100 09/15/18 07:00 09/15/18 09:41 09/15/18 07:00 09/15/18 09:41 09/15/18 07:00 - Medications Medications: Current Medications Amlodipine Besylate (Norvasc) 10 mg PO DAILY [facility] Last Admin: 09/15/18 09:25 Dose: Not Given Carvedilol (Coreg) 6.25 mg PO BID [facility] Last Admin: 09/15/18 09:25 Dose: Not Given Clonidine HCl (Catapres) 0.2 mg PO TID [facility] Last Admin: 09/15/18 09:25 Dose: Not Given Epoetin Rod (Procrit) 4,000 unit IV MWF [facility] Last Admin: 09/13/18 13:18 Dose: 4,000 unit Hydralazine HCl (Apresoline) 25 mg PO Q8 [facility] Last Admin: 09/15/18 05:40 Dose: 25 mg Vancomycin HCl 1 gm/ Sodium (Chloride) 250 mls @ 166.7 mls/hr IVPB Q24H [facility]; Protocol Last Admin: 09/14/18 01:52 Dose: 166.7 mls/hr Piperacillin Sod/Tazobactam (Sod 2.25 gm/ Sodium Chloride) 100 mls @ 200 mls/hr IVPB Q8 [facility]; Protocol Last Admin: 09/15/18 05:45 Dose: 200 mls/hr Methylprednisolone (Solu-Medrol) 60 mg IV Q6 [facility] Last Admin: 09/15/18 05:41 Dose: 60 mg - Labs Labs: 09/15/18 07:24 09/15/18 07:24 PT 14.6 SECONDS (9.7-12.2) H 09/11/18 00:36 INR 1.3 09/11/18 00:36 APTT 35 SECONDS (21-34) H 09/11/18 00:36 - Constitutional Appears: Non-toxic, No Acute Distress - Head Exam Head Exam: ATRAUMATIC, NORMOCEPHALIC Additional comments: bilateral hearing aids - Eye Exam Eye Exam: EOMI, PERRL - ENT Exam ENT Exam: Mucous Membranes Moist - Respiratory Exam Respiratory Exam: Clear to Ausculation Bilateral, NORMAL BREATHING PATTERN. absent: Rales, Rhonchi, Wheezes - Cardiovascular Exam Cardiovascular Exam: REGULAR RHYTHM, +S1, +S2. absent: Gallop, Rubs, Murmur - GI/Abdominal Exam GI & Abdominal Exam: Soft, Normal Bowel Sounds. absent: Tenderness - Extremities Exam Additional comments: IV access in bilateral forearms peripheral pulses palpable bilaterally (radial, DP, PT) R chest Permacath - Neurological Exam Neurological Exam: Alert, Awake, Oriented x3 - Skin Skin Exam: Dry, Normal Color Assessment and Plan - Assessment and Plan (Free Text) Assessment: Mr. 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 His symptoms have resolved. He is not awaiting placement for outpatient HD. 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 However, cannot r/o Alport's syndrome - has not been compliant with eculizumab for last 4 months - Hgb 8.2 on admission - Type and cross -> transfused 2u PRBC 09/11 -> Hgb 6.5 - Hgb 5.7 on 09/13 -> transfused 2u PRBC with HD -> Hgb 8.0 - Heme consulted: Dr. Benites - help appreciated - Trend with AM labs - Hgb 8.0 today - continue to transfuse prn with HD Severe Thrombocytopenia - likely 2/2 atypical HUS - has not been compliant with eculizumab for last 4 months - Plts 6 on admission - DDAVP 20mcg and Solumedrol 125mg given prior to 2u platelet transfusion 09/11 - Plts 5 -> another 2u Plts transfused 09/12 -> Plts 37 - cont Solumedrol 60mg IV q6 - Heme consulted: Dr. Benites - dileep appreciated - Trend with AM labs - Plts 21 today - continue to transfuse prn - monitor for bleeding ESRD - BUN/Cr: 72/10.7 on admission - elevated from previous admission of Cr of 7s - has not had dialysis in the last 4 months, still producing urine - Vasc Surgery consulted: Dr. Philomena goodson appreciated Existing R chest Permacath flushed and still functional Blood Cx if concerned for long indwelling infection No surgical intervention at this time as vascular access intact and new access involves high risk with low platelets Signed off 09/11 - Nephro consulted: Dr. Hamilton goodson appreciated Cont on MWF schedule EPO with HD - BUN/Cr 73/6.5 today; for HD today 09/15 - Trend with AM labs Code Sepsis - called for elevated WBC and tachycardia, suspected long time indwelling cath infection - CXR (09/11): mild pulmonary venous congestion - repeat CXR (09/12): pending read - no rashes, skin changes, sensitivities noticed on skin, including area surrounding catheter - UA (09/11): 3+ protein - VBG (09/11): pH 7.48, lactate 1.6 - procalcitonin (09/11): 0.85 - Given Zosyn 2.25gm and Vancomycin 1gm IV, Gentamicin 270mg once in ED - blood Cx (09/11): Cornebacterium trevon, no guidelines on sensitivities - blood Cx drawn from Permacath (09/12): no growth @ 48hrs - Vancomycin 1gm IVPB daily (started 09/11) - random Vanc (09/12): 24.7 - Vanc trough @ 0030am Jessica 09/14: 18.9 -> hold for one day - Vanc trough @ 0030am on 09/19 before 8th dose - Zosyn 2.25gm IVPB q8 (started 09/12) - WBC 14.0, downtrending. No longer tachycardic - Trend with AM labs Hypertension - home Norvasc 10mg po daily - home Coreg 6.25mg po bid - home Clonidine 0.2mg po tid - home hydralazine 25mg po tid - Monitor vitals Possible GI bleed - Hgb 8.2 on admission. Stool occult blood positive in ED - s/p transfusion 2u PRBC (09/11) - to receive another 2u PRBC in dialysis (09/13) - GI consulted: Dr. Elliott - recs appreciated unlikely upper GI bleed no GI intervention, including endoscopy, indicated at this time rec Pepcid over Protonix if GI ppx indicated signed off 09/11 PPx - DVT: Chemical AC CI d/t severe thrombocytopenia, SCDs - GI: CI d/t severe thrombocytopenia - Diet: Diabetic Soft diet - Palliative Care consulted: Continues to be Full Code without Advanced Directive. Encouraged to attend HD as outpatient although patient is still resistant. - Dispo: Patient has lost previous HD chair. CM has begun looking for an outpatient HD center who will accept him with [facility]. d/w Dr. Edgar Jacob PGY-1
--- NOTE | 2018-09-15 14:03 | CP.PCM.PN ---
Subjective - Date & Time of Evaluation Date of Evaluation: 09/15/18 Time of Evaluation: 14:01 - Subjective Subjective: for dialysis now Feels better Eating well now Labs same Objective - Vital Signs/Intake and Output Vital Signs (last 24 hours): Temp Pulse Resp BP Pulse Ox 98.2 F 67 20 143/83 100 09/15/18 07:00 09/15/18 12:10 09/15/18 07:00 09/15/18 12:10 09/15/18 07:00 - Medications Medications: Current Medications Amlodipine Besylate (Norvasc) 10 mg PO DAILY [facility] Last Admin: 09/15/18 09:25 Dose: Not Given Carvedilol (Coreg) 6.25 mg PO BID [facility] Last Admin: 09/15/18 09:25 Dose: Not Given Clonidine HCl (Catapres) 0.2 mg PO TID [facility] Last Admin: 09/15/18 13:34 Dose: Not Given Epoetin Rod (Procrit) 4,000 unit IV MWF [facility] Last Admin: 09/13/18 13:18 Dose: 4,000 unit Hydralazine HCl (Apresoline) 25 mg PO Q8 [facility] Last Admin: 09/15/18 13:33 Dose: Not Given Vancomycin HCl 1 gm/ Sodium (Chloride) 250 mls @ 166.7 mls/hr IVPB Q24H [facility]; Protocol Last Admin: 09/14/18 01:52 Dose: 166.7 mls/hr Piperacillin Sod/Tazobactam (Sod 2.25 gm/ Sodium Chloride) 100 mls @ 200 mls/hr IVPB Q8 [facility]; Protocol Last Admin: 09/15/18 13:34 Dose: Not Given Methylprednisolone (Solu-Medrol) 60 mg IV Q6 [facility] Last Admin: 09/15/18 12:01 Dose: 60 mg - Labs Labs: 09/15/18 07:24 09/15/18 07:24 PT 14.6 SECONDS (9.7-12.2) H 09/11/18 00:36 INR 1.3 09/11/18 00:36 APTT 35 SECONDS (21-34) H 09/11/18 00:36 - Constitutional Appears: No Acute Distress, Chronically Ill - Head Exam Head Exam: ATRAUMATIC, NORMAL INSPECTION - Eye Exam Eye Exam: EOMI, Normal appearance - Neck Exam Neck Exam: Normal Inspection. absent: Tenderness - Respiratory Exam Respiratory Exam: Clear to Ausculation Bilateral, NORMAL BREATHING PATTERN - Cardiovascular Exam Cardiovascular Exam: REGULAR RHYTHM, +S1 - GI/Abdominal Exam GI & Abdominal Exam: Soft. absent: Tenderness - Extremities Exam Extremities Exam: Normal Inspection. absent: Tenderness - Neurological Exam Neurological Exam: Awake, CN II-XII Intact - Skin Skin Exam: Dry, Warm Assessment and Plan (1) Gastrointestinal hemorrhage Status: Acute (2) Thrombocytopenia Status: Acute (3) Dialysis catheter clot or failure Status: Acute (4) ESRD (end stage renal disease) Status: Acute (5) Hemolytic uremic syndrome Status: Acute (6) Hypertensive chronic kidney disease with stage 5 chronic kidney disease or end stage renal disease Status: Acute (7) Thrombocytopenia Status: Acute - Assessment and Plan (Free Text) Plan: Same HD MWF Needs outpt placement
[2018-09-15] MEDS: EPOETIN ALFA 4,000 UNIT/ML ML Dialysis IV SCH (15:42)
--- NOTE | 2018-09-16 00:18 | CP.PCM.PN ---
<Consuelo Santiago - Last Filed: 09/16/18 03:54> Subjective - Date & Time of Evaluation Date of Evaluation: 09/16/18 Time of Evaluation: 00:42 - Subjective Subjective: Progress note for Hospitalist service Patient seen and examined at bedside. He is resting comfortably in bed and in no acute distress. He denies any discomfort currently, including headache, dizziness, nausea, vomiting, chest pain, abdominal pain, diarrhea, nose bleeds. Patient is voiding without any difficulty. Objective - Vital Signs/Intake and Output Vital Signs (last 24 hours): Temp Pulse Resp BP Pulse Ox 97.9 F 68 20 142/93 H 98 09/15/18 17:10 09/15/18 20:00 09/15/18 17:10 09/15/18 17:10 09/15/18 17:10 Intake and Output: 09/15/18 09/16/18 18:59 06:59 Intake Total 350 Balance 350 - Medications Medications: Current Medications Amlodipine Besylate (Norvasc) 10 mg PO DAILY [facility] Last Admin: 09/15/18 09:25 Dose: Not Given Carvedilol (Coreg) 6.25 mg PO BID [facility] Last Admin: 09/15/18 17:35 Dose: 6.25 mg Clonidine HCl (Catapres) 0.2 mg PO TID [facility] Last Admin: 09/15/18 17:35 Dose: 0.2 mg Epoetin Rod (Procrit) 4,000 unit IV MWF [facility] Last Admin: 09/15/18 15:42 Dose: 4,000 unit Hydralazine HCl (Apresoline) 25 mg PO Q8 [facility] Last Admin: 09/15/18 21:21 Dose: 25 mg Vancomycin HCl 1 gm/ Sodium (Chloride) 250 mls @ 166.7 mls/hr IVPB Q24H [facility]; Protocol Last Admin: 09/14/18 01:52 Dose: 166.7 mls/hr Piperacillin Sod/Tazobactam (Sod 2.25 gm/ Sodium Chloride) 100 mls @ 200 mls/hr IVPB Q8 [facility]; Protocol Last Admin: 09/15/18 21:21 Dose: 200 mls/hr Methylprednisolone (Solu-Medrol) 60 mg IV Q6 [facility] Last Admin: 09/15/18 23:52 Dose: 60 mg - Labs Labs: 09/15/18 07:24 09/15/18 07:24 PT 14.6 SECONDS (9.7-12.2) H 09/11/18 00:36 INR 1.3 09/11/18 00:36 APTT 35 SECONDS (21-34) H 09/11/18 00:36 - Constitutional Appears: Non-toxic, No Acute Distress - Head Exam Head Exam: ATRAUMATIC, NORMOCEPHALIC - Eye Exam Eye Exam: EOMI, PERRL - ENT Exam ENT Exam: Mucous Membranes Moist - Respiratory Exam Respiratory Exam: Clear to Ausculation Bilateral. absent: Rales, Rhonchi, Wheezes, Stridor Additional comments: Right chest permacath - Cardiovascular Exam Cardiovascular Exam: REGULAR RHYTHM, +S1, +S2. absent: Gallop, Rubs, Murmur - GI/Abdominal Exam GI & Abdominal Exam: Soft, Normal Bowel Sounds. absent: Tenderness - Extremities Exam Extremities Exam: absent: Calf Tenderness, Pedal Edema, Tenderness Additional comments: peripheral pulses (radial and DP) equal and palpable - Neurological Exam Neurological Exam: Alert, Awake, Oriented x3 - Skin Skin Exam: Dry, Intact, Warm Assessment and Plan - Assessment and Plan (Free Text) Plan: Assessment: 32 year old male with history of ESRD (previously on PD and HD but patient decided to stop all therapy about 4 months ago), hypertension, 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 His symptoms have resolved. He is now awaiting placement for outpatient HD. 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 However, cannot r/o Alport's syndrome - has not been compliant with eculizumab for last 4 months - Hgb 8.2 on admission - Type and cross -> transfused 2u PRBC 09/11 -> Hgb 6.5 - Hgb 5.7 on 09/13 -> transfused 2u PRBC with HD -> Hgb 8.0 - Heme consulted: Dr. Benites - help appreciated - Trend with AM labs - Hgb 8.0 yesterday - continue to transfuse prn with HD Severe Thrombocytopenia - likely 2/2 atypical HUS - has not been compliant with eculizumab for last 4 months - Plts 6 on admission - DDAVP 20mcg and Solumedrol 125mg given prior to 2u platelet transfusion 09/11 - Plts 5 -> another 2u Plts transfused 09/12 -> Plts 37 - cont Solumedrol 60mg IV q6 - Heme consulted: Dr. Benites - help appreciated - Trend with AM labs - continue to transfuse prn - monitor for bleeding ESRD - BUN/Cr: 72/10.7 on admission - elevated from previous admission of Cr of 7s - has not had dialysis in the last 4 months, still producing urine - Vasc Surgery consulted: Dr. Philomena goodson appreciated Existing R chest Permacath flushed and still functional Blood Cx if concerned for long indwelling infection No surgical intervention at this time as vascular access intact and new access involves high risk with low platelets Signed off 09/11 - Nephro consulted: Dr. Hamilton goodson appreciated Cont on MWF schedule EPO with HD - BUN/Cr 73/6.5 yesterday; had HD yesterday 09/15 - Trend with AM labs Code Sepsis - called for elevated WBC and tachycardia, suspected long time indwelling cath infection - CXR (09/11): mild pulmonary venous congestion - repeat CXR (09/12): pending read - no rashes, skin changes, sensitivities noticed on skin, including area surrounding catheter - UA (09/11): 3+ protein - VBG (09/11): pH 7.48, lactate 1.6 - procalcitonin (09/11): 0.85 - Given Zosyn 2.25gm and Vancomycin 1gm IV, Gentamicin 270mg once in ED - blood Cx (09/11): Cornebacterium speices, no guidelines on sensitivities - blood Cx drawn from Permacath (09/12): no growth @ 48hrs - Vancomycin 1gm IVPB daily (started 09/11) - random Vanc (09/12): 24.7 - Vanc trough @ 0030am Jessica 09/14: 18.9 -> hold for one day - Vanc trough @ 0030am on 09/19 before 8th dose - Zosyn 2.25gm IVPB q8 (started 09/12) - WBC 14.0 yesterday, downtrending. No longer tachycardic - Trend with AM labs Hypertension - home Norvasc 10mg po daily - home Coreg 6.25mg po bid - home Clonidine 0.2mg po tid - home hydralazine 25mg po tid - Monitor vitals Possible GI bleed - Hgb 8.2 on admission. Stool occult blood positive in ED - s/p transfusion 2u PRBC (09/11) - to receive another 2u PRBC in dialysis (09/13) - GI consulted: Dr. Elliott - kellee appreciated unlikely upper GI bleed no GI intervention, including endoscopy, indicated at this time rec Pepcid over Protonix if GI ppx indicated signed off 09/11 PPx - DVT: Chemical AC CI d/t severe thrombocytopenia, SCDs - GI: CI d/t severe thrombocytopenia - Diet: Diabetic Soft diet - Palliative Care consulted: Continues to be Full Code without Advanced Directive. Encouraged to attend HD as outpatient although patient is still resistant. - Dispo: Patient has lost previous HD chair. has begun looking for an outpatient HD center who will accept him with [facility]. Case discussed with Dr. Edgar Santiago, PGY1 <Paulette Langley - Last Filed: 09/16/18 14:51> Objective - Vital Signs/Intake and Output Vital Signs (last 24 hours): Temp Pulse Resp BP Pulse Ox 98.2 F 64 20 143/92 H 96 09/16/18 07:00 09/16/18 08:00 09/16/18 07:00 09/16/18 09:27 09/16/18 07:00 Intake and Output: 09/16/18 09/16/18 06:59 18:59 Intake Total 350 Balance 350 - Medications Medications: Current Medications Amlodipine Besylate (Norvasc) 10 mg PO DAILY [facility] Last Admin: 09/16/18 09:26 Dose: 10 mg Carvedilol (Coreg) 6.25 mg PO BID [facility] Last Admin: 09/16/18 09:26 Dose: 6.25 mg Clonidine HCl (Catapres) 0.2 mg PO TID [facility] Last Admin: 09/16/18 13:33 Dose: 0.2 mg Epoetin Rod (Procrit) 4,000 unit IV MWF [facility] Last Admin: 09/15/18 15:42 Dose: 4,000 unit Hydralazine HCl (Apresoline) 25 mg PO Q8 [facility] Last Admin: 09/16/18 13:33 Dose: 25 mg Methylprednisolone (Solu-Medrol) 60 mg IV Q6 [facility] Last Admin: 09/16/18 13:00 Dose: 60 mg - Labs Labs: 09/16/18 06:51 09/16/18 06:51 PT 14.6 SECONDS (9.7-12.2) H 09/11/18 00:36 INR 1.3 09/11/18 00:36 APTT 35 SECONDS (21-34) H 09/11/18 00:36 Attending/Attestation - Attestation I have personally seen and examined this patient.: Yes I have fully participated in the care of the patient.: Yes I have reviewed all pertinent clinical information, including history, physical exam and plan: Yes Notes (Text): Patient was seen and examined by me. has diarrhea. no fever,no abdominal pain,no cough,no sob patient has leukocytosis .on IV solu mederol 60mg q6hrly. D/W Dr Benites we will taper solumedrol to 60 mg [id number] for two days then daily and stop Patient is afebrile since admission,repeat cultures negative,chest x ray ok,urine ok. Pt Had 5days of vanco and zosyn. I will stop antibiotics do stool cd toxin continue dialysis as per attendance secretary
[2018-09-16] MEDS: MethylPREDNISolone 40 mg Vial IV SCH ×3 (05:33→21:17)
[2018-09-16] MEDS: Piperacillin/Tazobact 2.25 GM in Sodium Chloride 100 ML IVPB SCH ×2 (05:40→13:34)
[2018-09-16 07:28] LABS: BASO % 0.1 % (0.0-2.0); HEMOGLOBIN 8.7 g/dL (12.0-18.0); LYMPH % 20.5 % (20.0-40.0)
[2018-09-16 07:38] LABS: LYMPH # 3.8 K/uL (1.0-4.3); MEAN CELL VOLUME 85.3 fL (80.0-94.0); MEAN CORPUSCULAR HEMOGLOBIN 28.8 pg (27.0-31.0); MEAN CORPUSCULAR HGB CONC 33.7 g/dL (33.0-37.0); MEAN PLATELET VOLUME 9.5 fL (7.2-11.7); MONO # 1.3 K/uL (0.0-0.8); MONO % 6.9 % (0.0-10.0); NEUT # 13.4 K/uL (1.8-7.0); NEUT % 72.5 % (50.0-75.0); NRBC % 2.5 % (0.0-2.0); RBC 3.04 Mil/uL (4.40-5.90); RED CELL DISTRIBUTION WIDTH 16.8 % (11.5-14.5); WHITE BLOOD COUNT 18.5 K/uL (4.8-10.8)
[2018-09-16 07:39] LABS: ALB/GLOB RATIO 1.4 (1.0-2.1); ALBUMIN 3.2 g/dL (3.5-5.0); CALCIUM 8.1 mg/dl (8.6-10.4)
--- NOTE | 2018-09-16 10:00 | CP.PCM.PN ---
Subjective - Date & Time of Evaluation Date of Evaluation: 09/16/18 Time of Evaluation: 09:58 - Subjective Subjective: Notes reviewed Offers no complaints Tolerating dialysis No bleeding reported No cp or palp No sob or cough Tolerating diet wants to go home 10 point ros negative other thatn above Objective - Vital Signs/Intake and Output Vital Signs (last 24 hours): Temp Pulse Resp BP Pulse Ox 98.2 F 64 20 143/92 H 96 09/16/18 07:00 09/16/18 08:00 09/16/18 07:00 09/16/18 09:27 09/16/18 07:00 Intake and Output: 09/16/18 09/16/18 06:59 18:59 Intake Total 350 Balance 350 - Medications Medications: Current Medications Amlodipine Besylate (Norvasc) 10 mg PO DAILY [facility] Last Admin: 09/16/18 09:26 Dose: 10 mg Carvedilol (Coreg) 6.25 mg PO BID [facility] Last Admin: 09/16/18 09:26 Dose: 6.25 mg Clonidine HCl (Catapres) 0.2 mg PO TID [facility] Last Admin: 09/16/18 09:26 Dose: 0.2 mg Epoetin Rod (Procrit) 4,000 unit IV MWF [facility] Last Admin: 09/15/18 15:42 Dose: 4,000 unit Hydralazine HCl (Apresoline) 25 mg PO Q8 [facility] Last Admin: 09/16/18 05:33 Dose: 25 mg Vancomycin HCl 1 gm/ Sodium (Chloride) 250 mls @ 166.7 mls/hr IVPB Q24H [facility]; Protocol Last Admin: 09/16/18 05:57 Dose: Not Given Piperacillin Sod/Tazobactam (Sod 2.25 gm/ Sodium Chloride) 100 mls @ 200 mls/hr IVPB Q8 [facility]; Protocol Last Admin: 09/16/18 05:40 Dose: 200 mls/hr Methylprednisolone (Solu-Medrol) 60 mg IV Q6 [facility] Last Admin: 09/16/18 05:33 Dose: 60 mg - Labs Labs: 09/16/18 06:51 09/16/18 06:51 PT 14.6 SECONDS (9.7-12.2) H 09/11/18 00:36 INR 1.3 09/11/18 00:36 APTT 35 SECONDS (21-34) H 09/11/18 00:36 - Constitutional Appears: Well, Non-toxic - Head Exam Head Exam: ATRAUMATIC, NORMAL INSPECTION - Eye Exam Eye Exam: EOMI, Normal appearance - ENT Exam ENT Exam: Mucous Membranes Moist, Normal Exam - Neck Exam Neck Exam: absent: Lymphadenopathy, Thyromegaly - Respiratory Exam Respiratory Exam: Clear to Ausculation Bilateral. absent: Rales, Rhonchi, Wheezes - Cardiovascular Exam Cardiovascular Exam: +S1, +S2. 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
--- NOTE | 2018-09-17 01:33 | CP.PCM.PN ---
<Consuelo Santiago - Last Filed: 09/17/18 03:31> Subjective - Date & Time of Evaluation Date of Evaluation: 09/17/18 Time of Evaluation: 01:33 - Subjective Subjective: Progress Note for Hospitalist service Patient seen and examined at bedside. Patient is resting comfortably in bed and does not appear to be in any acute distress. He denies headache, dizziness, nausea, vomiting, chest pain, abdominal pain, diarrhea, nose bleeds. Patient is voiding without any difficulty. Objective - Vital Signs/Intake and Output Vital Signs (last 24 hours): Temp Pulse Resp BP Pulse Ox 98.2 F 66 20 124/75 96 09/16/18 23:05 09/16/18 23:05 09/16/18 23:05 09/16/18 23:05 09/16/18 23:05 Intake and Output: 09/16/18 09/17/18 18:59 05:59 Intake Total 250 Balance 250 - Medications Medications: Current Medications Amlodipine Besylate (Norvasc) 10 mg PO DAILY [facility] Last Admin: 09/16/18 09:26 Dose: 10 mg Carvedilol (Coreg) 6.25 mg PO BID [facility] Last Admin: 09/16/18 17:40 Dose: 6.25 mg Clonidine HCl (Catapres) 0.2 mg PO TID [facility] Last Admin: 09/16/18 17:40 Dose: 0.2 mg Epoetin Rod (Procrit) 4,000 unit IV MWF [facility] Last Admin: 09/15/18 15:42 Dose: 4,000 unit Hydralazine HCl (Apresoline) 25 mg PO Q8 [facility] Last Admin: 09/16/18 21:17 Dose: 25 mg Methylprednisolone (Solu-Medrol) 60 mg IV Q12 [facility] Last Admin: 09/16/18 21:17 Dose: 60 mg - Labs Labs: 09/16/18 06:51 09/16/18 06:51 PT 14.6 SECONDS (9.7-12.2) H 09/11/18 00:36 INR 1.3 09/11/18 00:36 APTT 35 SECONDS (21-34) H 09/11/18 00:36 - Constitutional Appears: Well, No Acute Distress - Head Exam Head Exam: ATRAUMATIC, NORMOCEPHALIC - Eye Exam Eye Exam: EOMI - ENT Exam ENT Exam: Mucous Membranes Moist - Neck Exam Neck Exam: Full ROM. absent: Tenderness - Respiratory Exam Respiratory Exam: Clear to Ausculation Bilateral. absent: Rales, Rhonchi, Wheezes, Respiratory Distress, Stridor Additional comments: right chest permacath - Cardiovascular Exam Cardiovascular Exam: REGULAR RHYTHM, +S1, +S2. absent: Gallop, Rubs, Murmur - GI/Abdominal Exam GI & Abdominal Exam: Soft, Normal Bowel Sounds. absent: Distended, Firm, Guarding, Rigid, Tenderness, Organomegaly - Extremities Exam Extremities Exam: absent: Calf Tenderness, Pedal Edema Additional comments: peripheral pulses (radial and dorsalis pedis) equal and palpable. - Back Exam Back Exam: absent: CVA tenderness (L), CVA tenderness (R) - Neurological Exam Neurological Exam: Alert, Awake, Oriented x3 Assessment and Plan - Assessment and Plan (Free Text) Plan: Assessment: 32 year old male with history of ESRD (previously on PD and HD but patient decided to stop all therapy about 4 months ago), hypertension, 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 His symptoms have resolved. He is now awaiting placement for outpatient HD. 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 However, cannot r/o Alport's syndrome - has not been compliant with eculizumab for last 4 months - Hgb 8.2 on admission - Type and cross -> transfused 2u PRBC 09/11 -> Hgb 6.5 - Hgb 5.7 on 09/13 -> transfused 2u PRBC with HD -> Hgb 8.0 - Heme consulted: Dr. Benites - help appreciated - Trend with AM labs - Hgb 8.7 yesterday - continue to transfuse prn with HD Severe Thrombocytopenia - likely 2/2 atypical HUS - has not been compliant with eculizumab for last 4 months - Plts 6 on admission - DDAVP 20mcg and Solumedrol 125mg given prior to 2u platelet transfusion 09/11 - Plts 5 -> another 2u Plts transfused 09/12 -> Plts 37 - Plts yesterday 18 - cont Solumedrol 60mg IV q6 - Heme consulted: Dr. Benites - help appreciated - Trend with AM labs - continue to transfuse prn - monitor for bleeding ESRD - BUN/Cr: 72/10.7 on admission - elevated from previous admission of Cr of 7s - has not had dialysis in the last 4 months, still producing urine - Vasc Surgery consulted: Dr. Philomena goodson appreciated Existing R chest Permacath flushed and still functional Blood Cx if concerned for long indwelling infection No surgical intervention at this time as vascular access intact and new acc ess involves high risk with low platelets Signed off 09/11 - Nephro consulted: Dr. Hamilton goodson appreciated Cont on MWF schedule EPO with HD - BUN/Cr 54/5.3 yesterday - Trend with AM labs Code Sepsis - called for elevated WBC and tachycardia, suspected long time indwelling cath infection - CXR (09/11): mild pulmonary venous congestion - repeat CXR (09/12): pending read - no rashes, skin changes, sensitivities noticed on skin, including area surrounding catheter - UA (09/11): 3+ protein - VBG (09/11): pH 7.48, lactate 1.6 - procalcitonin (09/11): 0.85 - Given Zosyn 2.25gm and Vancomycin 1gm IV, Gentamicin 270mg once in ED - blood Cx (09/11): Cornebacterium trevon, no guidelines on sensitivities - blood Cx drawn from Perm[facility]ath (09/12): no growth @ 48hrs - Vancomycin 1gm IVPB daily (started 09/11) - random Vanc (09/12): 24.7 - Vanc trough @ 0030am Jessica 09/14: 18.9 -> hold for one day - Vanc trough @ 0030am on 09/19 before 8th dose - Zosyn 2.25gm IVPB q8 (started 09/12) - WBC 18.5 yesterday, downtrending. No longer tachycardic - Trend with AM labs Hypertension - home Norvasc 10mg po daily - home Coreg 6.25mg po bid - home Clonidine 0.2mg po tid - home hydralazine 25mg po tid - Monitor vitals Possible GI bleed - Hgb 8.2 on admission. Stool occult blood positive in ED - s/p transfusion 2u PRBC (09/11) - to receive another 2u PRBC in dialysis (09/13) - GI consulted: Dr. Elliott - recs appreciated unlikely upper GI bleed no GI intervention, including endoscopy, indicated at this time rec Pepcid over Protonix if GI ppx indicated signed off 09/11 PPx - DVT: Chemical AC CI d/t severe thrombocytopenia, SCDs - GI: CI d/t severe thrombocytopenia - Diet: Diabetic Soft diet - Palliative Care consulted: Continues to be Full Code without Advanced Directive. Encouraged to attend HD as outpatient although patient is still resistant. - Dispo: Patient has lost previous HD chair. has begun looking for an outpatient HD center who will accept him with [facility]. Case discussed with Dr. Lillian Santiago, PGY1 <Romeo Snyder - Last Filed: 09/17/18 09:02> Objective - Vital Signs/Intake and Output Vital Signs (last 24 hours): Temp Pulse Resp BP Pulse Ox 98.3 F 57 L 20 124/78 97 09/17/18 07:00 09/17/18 07:40 09/17/18 07:00 09/17/18 07:00 09/17/18 07:00 Intake and Output: 09/17/18 09/17/18 06:59 18:59 Intake Total Balance - Medications Medications: Current Medications Amlodipine Besylate (Norvasc) 10 mg PO DAILY [facility] Last Admin: 09/16/18 09:26 Dose: 10 mg Carvedilol (Coreg) 6.25 mg PO BID [facility] Last Admin: 09/16/18 17:40 Dose: 6.25 mg Clonidine HCl (Catapres) 0.2 mg PO TID [facility] Last Admin: 09/16/18 17:40 Dose: 0.2 mg Epoetin Rod (Procrit) 4,000 unit IV MWF [facility] Last Admin: 09/15/18 15:42 Dose: 4,000 unit Hydralazine HCl (Apresoline) 25 mg PO Q8 [facility] Last Admin: 09/17/18 05:15 Dose: 25 mg Methylprednisolone (Solu-Medrol) 60 mg IV Q12 [facility] Last Admin: 09/16/18 21:17 Dose: 60 mg - Labs Labs: 09/17/18 07:34 09/17/18 07:34 PT 14.6 SECONDS (9.7-12.2) H 09/11/18 00:36 INR 1.3 09/11/18 00:36 APTT 35 SECONDS (21-34) H 09/11/18 00:36 Attending/Attestation - Attestation I have personally seen and examined this patient.: Yes I have fully participated in the care of the patient.: Yes I have reviewed all pertinent clinical information, including history, physical exam and plan: Yes Notes (Text): 09/17/18 08:58 Medical attending: Patient was seen and examined by me. Agree with the above note by the resident The patient was not in any acute distress when I came and saw. We also went for a walk around the 6T hallway - he did ok - no nausea, no vomiting, no chest pain, no palpitations. We are at this moment waiting for outpatient HD placement - he used to have a placement however he did not go to dialysis for so long that he lost his spot Platelet count is 13K today, when less than 10K then will transfuse. The patient's soulmedrol was decreased to BID yesterday, possible can be decreased further tommorrow. Romeo Snyder
[2018-09-17 07:52] LABS: BASO % 0.1 % (0.0-2.0); HEMOGLOBIN 9.2 g/dL (12.0-18.0)
[2018-09-17 07:58] LABS: LYMPH # 3.5 K/uL (1.0-4.3); LYMPH % 18.4 % (20.0-40.0); MEAN CELL VOLUME 86.4 fL (80.0-94.0); MEAN CORPUSCULAR HEMOGLOBIN 28.8 pg (27.0-31.0); MEAN CORPUSCULAR HGB CONC 33.3 g/dL (33.0-37.0); MEAN PLATELET VOLUME 11.2 fL (7.2-11.7); MONO # 1.4 K/uL (0.0-0.8); MONO % 7.1 % (0.0-10.0); NEUT # 14.2 K/uL (1.8-7.0); NEUT % 74.4 % (50.0-75.0); NRBC % 1.9 % (0.0-2.0); RBC 3.21 Mil/uL (4.40-5.90); RED CELL DISTRIBUTION WIDTH 16.8 % (11.5-14.5); WHITE BLOOD COUNT 19.1 K/uL (4.8-10.8)
[2018-09-17 08:08] LABS: ALB/GLOB RATIO 1.4 (1.0-2.1); ALBUMIN 3.3 g/dL (3.5-5.0); CALCIUM 8.1 mg/dl (8.6-10.4)
[2018-09-17] MEDS: MethylPREDNISolone 40 mg Vial IV SCH ×2 (09:40→21:03)
[2018-09-18 06:58] LABS: BASO % 0.1 % (0.0-2.0); HEMOGLOBIN 9.5 g/dL (12.0-18.0); LYMPH % 19.1 % (20.0-40.0); MEAN CORPUSCULAR HEMOGLOBIN 28.6 pg (27.0-31.0); MEAN CORPUSCULAR HGB CONC 32.9 g/dL (33.0-37.0); MEAN PLATELET VOLUME 11.6 fL (7.2-11.7); MONO # 1.2 K/uL (0.0-0.8); MONO % 4.7 % (0.0-10.0); NEUT % 76.1 % (50.0-75.0); NRBC % 0.7 % (0.0-2.0); RBC 3.31 Mil/uL (4.40-5.90); RED CELL DISTRIBUTION WIDTH 16.6 % (11.5-14.5); WHITE BLOOD COUNT 26.2 K/uL (4.8-10.8)
[2018-09-18 07:12] LABS: PLATELET COUNT 13 K/uL (130-400)
[2018-09-18 08:00] LABS: ALB/GLOB RATIO 1.4 (1.0-2.1); ALBUMIN 3.5 g/dL (3.5-5.0); CALCIUM 8.3 mg/dl (8.6-10.4)
--- NOTE | 2018-09-18 08:20 | CP.PCM.PN ---
<Consuelo Santiago - Last Filed: 09/18/18 18:47> Subjective - Date & Time of Evaluation Date of Evaluation: 09/18/18 Time of Evaluation: 08:20 - Subjective Subjective: Progress note for Hospitalist service Patient seen and examined at bedside. He states he had 4 episodes of watery diarrhea since last night. Describes it as nonbloody, dark brown diarrhea. He denies fevers, chills, chest pain, shortness of breath, palpitations, abdominal pain, nausea, vomiting, leg pain. Denies any visible bleeding. Objective - Vital Signs/Intake and Output Vital Signs (last 24 hours): Temp Pulse Resp BP Pulse Ox 98.1 F 63 20 144/80 99 09/18/18 07:00 09/18/18 07:52 09/18/18 07:00 09/18/18 07:00 09/18/18 07:00 Intake and Output: 09/18/18 09/18/18 06:59 18:59 Intake Total 350 Balance 350 - Medications Medications: Current Medications Amlodipine Besylate (Norvasc) 10 mg PO DAILY [facility] Last Admin: 09/17/18 09:40 Dose: 10 mg Carvedilol (Coreg) 6.25 mg PO BID [facility] Last Admin: 09/17/18 17:37 Dose: 6.25 mg Clonidine HCl (Catapres) 0.2 mg PO TID [facility] Last Admin: 09/17/18 17:37 Dose: 0.2 mg Epoetin Rod (Procrit) 4,000 unit IV MWF [facility] Last Admin: 09/15/18 15:42 Dose: 4,000 unit Hydralazine HCl (Apresoline) 25 mg PO Q8 [facility] Last Admin: 09/18/18 05:50 Dose: 25 mg Methylprednisolone (Solu-Medrol) 60 mg IV Q12 [facility] Last Admin: 09/17/18 21:03 Dose: 60 mg - Labs Labs: 09/18/18 06:50 09/18/18 06:50 PT 14.6 SECONDS (9.7-12.2) H 09/11/18 00:36 INR 1.3 09/11/18 00:36 APTT 35 SECONDS (21-34) H 09/11/18 00:36 - Constitutional Appears: Well, No Acute Distress - Head Exam Head Exam: ATRAUMATIC, NORMOCEPHALIC - Eye Exam Eye Exam: EOMI, PERRL - ENT Exam ENT Exam: Mucous Membranes Moist - Neck Exam Neck Exam: Full ROM. absent: Tenderness, Thyromegaly - Respiratory Exam Respiratory Exam: Clear to Ausculation Bilateral. absent: Rales, Rhonchi, Wheezes, Respiratory Distress, Stridor Additional comments: right chest permacath in place, no erythema, swelling or evidence of infection - Cardiovascular Exam Cardiovascular Exam: REGULAR RHYTHM, +S1, +S2. absent: Gallop, Rubs, Murmur - GI/Abdominal Exam GI & Abdominal Exam: Soft, Normal Bowel Sounds. absent: Distended, Firm, Guarding, Rigid, Tenderness, Organomegaly - Extremities Exam Extremities Exam: Normal Capillary Refill. 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 His symptoms have resolved. He is now awaiting placement for outpatient HD. 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 However, cannot r/o Alport's syndrome - has not been compliant with eculizumab for last 4 months - Hgb 8.2 on admission - Type and cross -> transfused 2u PRBC 09/11 -> Hgb 6.5 - Hgb 5.7 on 09/13 -> transfused 2u PRBC with HD -> Hgb 8.0 - Heme consulted: Dr. Benites - help appreciated - Trend with AM labs - Hgb 9.5 today - continue to transfuse prn with HD Severe Thrombocytopenia - likely 2/2 atypical HUS - has not been compliant with eculizumab for last 4 months - Plts 6 on admission - DDAVP 20mcg and Solumedrol 125mg given prior to 2u platelet transfusion 09/11 - Plts 5 -> another 2u Plts transfused 09/12 -> Plts 37 - Plts 13 - 09/18/18: Given leukocytosis, case discussed with Dr. Benites who requested man ual platelet count. Recommended 1 unit of platelet transfusion if manual platelet count is less than 20. Manual platelet ct 25. No need to transfuse at this time as per Dr. Benites. - cont Solumedrol 60mg IV q12 - Heme consulted: Dr. Benites - help appreciated - Trend with AM labs - continue to transfuse prn - monitor for bleeding Leukocytosis - 09/18/18 White count elevated to 26.2 today from 19.1 - f/u blood cultures - UA 3+ protein, 2+ glucose - f/u urine cultures - f/u stool culture, and stool studies including O&P, C diff - 09/18/18: Case discussed with Dr. Benites who requested manual platelet count. Recommended 1 unit of platelet transfusion if manual platelet count is less than 20. Lab called to put in manual platelet count to this morning's labs. Diarrhea - Elevated white count 26.2 - F/u stool culture, and stool studies including O&P, C diff - Continue to monitor ESRD on HD MWF - BUN/Cr: 72/10.7 on admission - elevated from previous admission of Cr of 7s - has not had dialysis in the last 4 months, still producing urine - Vasc Surgery consulted: Dr. Philomena goodson appreciated Existing R chest Permacath flushed and still functional Blood Cx if concerned for long indwelling infection No surgical intervention at this time as vascular access intact and new access involves high risk with low platelets Signed off 09/11 - Nephro consulted: Dr. Hamilton goodson appreciated Cont on MWF schedule EPO with HD - BUN/Cr 109/9.1, due to HD today - Trend with AM labs Code Sepsis - called for elevated WBC and tachycardia, suspected long time indwelling cath infection - CXR (09/11): mild pulmonary venous congestion - repeat CXR (09/12): pending read - no rashes, skin changes, sensitivities noticed on skin, including area surrounding catheter - UA (09/11): 3+ protein - VBG (09/11): pH 7.48, lactate 1.6 - procalcitonin (09/11): 0.85 - Given Zosyn 2.25gm and Vancomycin 1gm IV, Gentamicin 270mg once in ED - blood Cx (09/11): Cornebacterium speices, no guidelines on sensitivities - blood Cx drawn from [facility] (09/12): no growth @ 48hrs - Vancomycin 1gm IVPB daily (started 09/11) - random Vanc (09/12): 24.7 - Vanc trough @ 0030am Jessica 09/14: 18.9 -> hold for one day - Vanc trough @ 0030am on 09/19 before 8th dose - Zosyn 2.25gm IVPB q8 (started 09/12) - WBC 18.5 yesterday, downtrending. No longer tachycardic - Trend with AM labs Hypertension - home Norvasc 10mg po daily - home Coreg 6.25mg po bid - home Clonidine 0.2mg po tid - home hydralazine 25mg po tid - Monitor vitals Possible GI bleed - Hgb 8.2 on admission. Stool occult blood positive in ED - s/p transfusion 2u PRBC (09/11) - to receive another 2u PRBC in dialysis (09/13) - GI consulted: Dr. Elliott - recarmin appreciated unlikely upper GI bleed no GI intervention, including endoscopy, indicated at this time rec Pepcid over Protonix if GI ppx indicated signed off 09/11 PPx - DVT: Chemical AC CI d/t severe thrombocytopenia, SCDs - GI: CI d/t severe thrombocytopenia - Diet: Diabetic Soft diet - Palliative Care consulted: Continues to be Full Code without Advanced Directive. Encouraged to attend HD as outpatient although patient is still resistant. - Dispo: Patient has lost previous HD chair. has begun looking for an outpatient HD center who will accept him with [facility]. Case discussed with Dr. Shivam Santiago, PGY1 <Paulette Langley - Last Filed: 09/19/18 09:04> Objective - Vital Signs/Intake and Output Vital Signs (last 24 hours): Temp Pulse Resp BP Pulse Ox 98.7 F 67 20 155/87 H 98 09/19/18 07:00 09/19/18 07:00 09/19/18 07:00 09/19/18 07:00 09/19/18 07:00 - Medications Medications: Current Medications Amlodipine Besylate (Norvasc) 10 mg PO DAILY [facility] Last Admin: 09/18/18 09:56 Dose: 10 mg Carvedilol (Coreg) 6.25 mg PO BID [facility] Last Admin: 09/18/18 18:48 Dose: 6.25 mg Clonidine HCl (Catapres) 0.2 mg PO TID [facility] Last Admin: 09/18/18 18:48 Dose: 0.2 mg Epoetin Rod (Procrit) 4,000 unit IV MWF [facility] Last Admin: 09/18/18 17:02 Dose: 4,000 unit Hydralazine HCl (Apresoline) 25 mg PO Q8 [facility] Last Admin: 09/19/18 05:19 Dose: 25 mg Methylprednisolone (Solu-Medrol) 60 mg IV Q12 [facility] Last Admin: 09/18/18 21:15 Dose: 60 mg - Labs Labs: 09/19/18 06:31 09/19/18 06:27 PT 14.6 SECONDS (9.7-12.2) H 09/11/18 00:36 INR 1.3 09/11/18 00:36 APTT 35 SECONDS (21-34) H 09/11/18 00:36 Attending/Attestation - Attestation I have personally seen and examined this patient.: Yes I have fully participated in the care of the patient.: Yes I have reviewed all pertinent clinical information, including history, physical exam and plan: Yes Notes (Text): seen and examined by me Patient is complaining of watery diarrhea.No fever,no abdominal pain on examination abdomen is soft and nontender cultures are negative,off antibiotics Increasing leukocytosis .we will do blood and urine cultures to r/o infection stool for CD toxin. 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
[2018-09-18] MEDS: MethylPREDNISolone 40 mg Vial IV SCH ×2 (09:56→21:15)
--- NOTE | 2018-09-18 11:15 | CP.PCM.PN ---
Subjective - Date & Time of Evaluation Date of Evaluation: 09/18/18 Time of Evaluation: 11:12 - Subjective Subjective: Alert; feels much better Hg increased Stable dialysis course HTN controlled Objective - Vital Signs/Intake and Output Vital Signs (last 24 hours): Temp Pulse Resp BP Pulse Ox 98.1 F 74 20 153/91 H 99 09/18/18 07:00 09/18/18 09:55 09/18/18 07:00 09/18/18 09:55 09/18/18 07:00 Intake and Output: 09/18/18 09/18/18 06:59 18:59 Intake Total 350 Balance 350 - Medications Medications: Current Medications Amlodipine Besylate (Norvasc) 10 mg PO DAILY [facility] Last Admin: 09/18/18 09:56 Dose: 10 mg Carvedilol (Coreg) 6.25 mg PO BID [facility] Last Admin: 09/18/18 09:56 Dose: 6.25 mg Clonidine HCl (Catapres) 0.2 mg PO TID [facility] Last Admin: 09/18/18 09:56 Dose: 0.2 mg Epoetin Rod (Procrit) 4,000 unit IV MWF [facility] Last Admin: 09/15/18 15:42 Dose: 4,000 unit Hydralazine HCl (Apresoline) 25 mg PO Q8 [facility] Last Admin: 09/18/18 05:50 Dose: 25 mg Methylprednisolone (Solu-Medrol) 60 mg IV Q12 [facility] Last Admin: 09/18/18 09:56 Dose: 60 mg - Labs Labs: 09/18/18 06:50 09/18/18 06:50 PT 14.6 SECONDS (9.7-12.2) H 09/11/18 00:36 INR 1.3 09/11/18 00:36 APTT 35 SECONDS (21-34) H 09/11/18 00:36 - Constitutional Appears: No Acute Distress, Chronically Ill - Head Exam Head Exam: ATRAUMATIC, NORMAL INSPECTION - Eye Exam Eye Exam: EOMI, Normal appearance - Neck Exam Neck Exam: Normal Inspection. absent: Tenderness - Respiratory Exam Respiratory Exam: Clear to Ausculation Bilateral, NORMAL BREATHING PATTERN - Cardiovascular Exam Cardiovascular Exam: REGULAR RHYTHM, +S1 - GI/Abdominal Exam GI & Abdominal Exam: Soft. absent: Tenderness - Extremities Exam Extremities Exam: Normal Inspection. absent: Tenderness - Neurological Exam Neurological Exam: Awake, CN II-XII Intact - Skin Skin Exam: Dry, Warm Assessment and Plan (1) Gastrointestinal hemorrhage Status: Acute (2) Thrombocytopenia Status: Acute (3) Dialysis catheter clot or failure Status: Acute (4) ESRD (end stage renal disease) Status: Acute (5) Hemolytic uremic syndrome Status: Acute (6) Hypertensive chronic kidney disease with stage 5 chronic kidney disease or end stage renal disease Status: Acute (7) Thrombocytopenia Status: Acute - Assessment and Plan (Free Text) Plan: Dialysis now and MWF Await HD placement for outpt
[2018-09-18 13:28] LABS: LYMPHOCYTE 3 % (20-40); MONOCYTE 4 % (0-10); NEUTROPHIL 93 % (50-75); PLATELET ESTIMATE MARKEDLY INCREASED (NORMAL); TOTAL CELLS COUNTED 100
[2018-09-18 13:29] LABS: ANISOCYTOSIS SLIGHT; BURR CELLS SLIGHT; GIANT PLATELETS PRESENT; HYPOCHROMIC SLIGHT; LARGE PLATELETS PRESENT; OVALOCYTES SLIGHT; POIKILOCYTOSIS SLIGHT; TARGET CELLS SLIGHT
[2018-09-18 13:48] LABS: SQUAMOUS EPITHIAL < 1 /hpf (0-5); URINE BACTERIA RARE (<OCC); URINE BILIRUBIN NEGATIVE (NEGATIVE); URINE BLOOD NEGATIVE (NEGATIVE); URINE CLARITY Clear (Clear); URINE COLOR Yellow (YELLOW); URINE GLUCOSE (UA) 2+ mg/dL (Normal); URINE LEUKOCYTE ESTERASE NEG Leu/uL (Negative); URINE PROTEIN 3+ mg/dL (NEGATIVE); URINE UROBILINOGEN NORMAL mg/dL (0.2-1.0)
[2018-09-18 14:44] LABS: PLATELET COUNT MANUAL 25 K/uL (130-400)
[2018-09-18] MEDS: EPOETIN ALFA 4,000 UNIT/ML ML Dialysis IV SCH (17:02)
[2018-09-19 06:53] LABS: BASO % 0.1 % (0.0-2.0); HEMOGLOBIN 8.8 g/dL (12.0-18.0); LYMPH % 7.5 % (20.0-40.0); MEAN CELL VOLUME 86.9 fL (80.0-94.0); MEAN CORPUSCULAR HEMOGLOBIN 28.8 pg (27.0-31.0); MEAN CORPUSCULAR HGB CONC 33.1 g/dL (33.0-37.0); MEAN PLATELET VOLUME 10.4 fL (7.2-11.7); MONO % 7.5 % (0.0-10.0); NEUT % 84.9 % (50.0-75.0); NRBC % 0.4 % (0.0-2.0); RBC 3.04 Mil/uL (4.40-5.90); RED CELL DISTRIBUTION WIDTH 16.5 % (11.5-14.5)
[2018-09-19 07:02] LABS: PLATELET COUNT 14 K/uL (130-400)
[2018-09-19 07:07] LABS: ALB/GLOB RATIO 1.3 (1.0-2.1)
--- NOTE | 2018-09-19 08:58 | CP.PCM.PN ---
<NidiaShelbiAngelica Meño - Last Filed: 09/19/18 15:31> Subjective - Date & Time of Evaluation Date of Evaluation: 09/19/18 Time of Evaluation: 08:00 - Subjective Subjective: PGY-1 Medicine Progress Note for Dr. Langley Patient was seen and examined today at bedside in no acute distress. He was conversating with his roommmate comfortably. Nurse reports no overnight events. Patient denies any acute complaints. Denies fever, chills, headache, chest pain, shortness of breath, abdominal pain, nausea, vomiting, diarrhea. He has no issu es with urination on non-dialysis days, however hasn't had a BM for 2 days. Objective - Vital Signs/Intake and Output Vital Signs (last 24 hours): Temp Pulse Resp BP Pulse Ox 98.7 F 67 20 155/87 H 98 09/19/18 07:00 09/19/18 07:00 09/19/18 07:00 09/19/18 07:00 09/19/18 07:00 - Medications Medications: Current Medications Amlodipine Besylate (Norvasc) 10 mg PO DAILY [facility] Last Admin: 09/18/18 09:56 Dose: 10 mg Carvedilol (Coreg) 6.25 mg PO BID [facility] Last Admin: 09/18/18 18:48 Dose: 6.25 mg Clonidine HCl (Catapres) 0.2 mg PO TID [facility] Last Admin: 09/18/18 18:48 Dose: 0.2 mg Epoetin Rod (Procrit) 4,000 unit IV MWF [facility] Last Admin: 09/18/18 17:02 Dose: 4,000 unit Hydralazine HCl (Apresoline) 25 mg PO Q8 [facility] Last Admin: 09/19/18 05:19 Dose: 25 mg Methylprednisolone (Solu-Medrol) 60 mg IV Q12 [facility] Last Admin: 09/18/18 21:15 Dose: 60 mg - Labs Labs: 09/19/18 06:31 09/19/18 06:27 PT 14.6 SECONDS (9.7-12.2) H 09/11/18 00:36 INR 1.3 09/11/18 00:36 APTT 35 SECONDS (21-34) H 09/11/18 00:36 - Constitutional Appears: Well, No Acute Distress - Head Exam Head Exam: ATRAUMATIC, NORMOCEPHALIC - Eye Exam Eye Exam: EOMI, PERRL - ENT Exam ENT Exam: Mucous Membranes Moist - Respiratory Exam Respiratory Exam: Clear to Ausculation Bilateral, NORMAL BREATHING PATTERN. absent: Rales, Rhonchi, Wheezes - Cardiovascular Exam Cardiovascular Exam: REGULAR RHYTHM, +S1, +S2. absent: Gallop, Rubs, Murmur - GI/Abdominal Exam GI & Abdominal Exam: Soft, Normal Bowel Sounds. 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 His symptoms have resolved. He is now awaiting placement for outpatient HD. 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 However, cannot r/o Alport's syndrome - has not been compliant with eculizumab for last 4 months - Hgb 8.2 on admission - Type and cross -> transfused 2u PRBC 09/11 -> Hgb 6.5 - Hgb 5.7 on 09/13 -> transfused 2u PRBC with HD -> Hgb 8.0 - Heme consulted: Dr. Benites - help appreciated - Trend with AM labs - Hgb 8.8 today - continue to transfuse prn with HD Severe Thrombocytopenia - likely 2/2 atypical HUS - has not been compliant with eculizumab for last 4 months - Plts 6 on admission - DDAVP 20mcg and Solumedrol 125mg given prior to 2u platelet transfusion 09/11 - Plts 5 -> another 2u Plts transfused 09/12 -> Plts 37 - Plts 13 on 09/18/18: Given leukocytosis, case discussed with Dr. Benites who requested manual platelet count. Recommended 1 unit of platelet transfusion if manual platelet count is less than 20. Manual platelet ct 25. No need to transfuse at this time as per Dr. Benites. - Plts 14 today, manual count 44 -> no need to transfuse at this time. - cont Solumedrol 60mg IV q12 - Heme consulted: Dr. Benites - help appreciated - Trend with AM labs - continue to transfuse prn - monitor for bleeding Leukocytosis - 09/18/18 White count elevated to 26.2 today from 19.1 - Blood Cx from port (09/12): neg x5 days - f/u blood Cx - UA 3+ protein, 2+ glucose - f/u urine cultures - f/u stool culture, and stool studies including O&P, C diff - 09/18/18: Case discussed with Dr. Benites who requested manual platelet count. Recommended 1 unit of platelet transfusion if manual platelet count is less than 20. Lab called to put in manual platelet count to this morning's labs. Diarrhea - Elevated white count 26.2 - F/u stool culture, and stool studies including O&P, C diff - Continue to monitor ESRD on HD MWF - BUN/Cr: 72/10.7 on admission - elevated from previous admission of Cr of 7s - has not had dialysis in the last 4 months, still producing urine - Vasc Surgery consulted: Dr. Philomena goodson appreciated Existing R chest Permacath flushed and still functional Blood Cx if concerned for long indwelling infection No surgical intervention at this time as vascular access intact and new access involves high risk with low platelets Signed off 09/11 - Nephro consulted: Dr. Hamilton goodson appreciated Cont on MWF schedule EPO with HD - BUN/Cr 109/9.1, due to HD today - Trend with AM labs Code Sepsis - called for elevated WBC and tachycardia, suspected long time indwelling cath infection - CXR (09/11): mild pulmonary venous congestion - repeat CXR (09/12): pending read - no rashes, skin changes, sensitivities noticed on skin, including area surrounding catheter - UA (09/11): 3+ protein - VBG (09/11): pH 7.48, lactate 1.6 - procalcitonin (09/11): 0.85 - Given Zosyn 2.25gm and Vancomycin 1gm IV, Gentamicin 270mg once in ED - blood Cx (09/11): Cornebacterium speices, no guidelines on sensitivities - blood Cx drawn from [facility] (09/12): no growth @ 48hrs - Vancomycin 1gm IVPB daily (started 09/11) - random Vanc (09/12): 24.7 - Vanc trough @ 0030am Jessica 09/14: 18.9 -> hold for one day - Vanc trough @ 0030am on 09/19 before 8th dose - Zosyn 2.25gm IVPB q8 (started 09/12) - WBC 18.5 yesterday, downtrending. No longer tachycardic - Trend with AM labs Hypertension - home Norvasc 10mg po daily - home Coreg 6.25mg po bid - home Clonidine 0.2mg po tid - home hydralazine 25mg po tid - Monitor vitals Possible GI bleed - Hgb 8.2 on admission. Stool occult blood positive in ED - s/p transfusion 2u PRBC (09/11) - to receive another 2u PRBC in dialysis (09/13) - [facility] unlikely upper GI bleed no GI intervention, including endoscopy, indicated at this time rec Pepcid over Protonix if GI ppx indicated signed off 09/11 PPx - DVT: Chemical AC CI d/t severe thrombocytopenia, SCDs - GI: CI d/t severe thrombocytopenia - Diet: Diabetic Soft diet - Palliative Care consulted: Continues to be Full Code without Advanced Directive. Encouraged to attend HD as outpatient although patient is still resistant. - Dispo: Patient has lost previous HD chair. has begun looking for an outpatient HD center who will accept him with [facility]. Case discussed with Dr. Shivam Jacob PGY-1 <Paulette Langley - Last Filed: 09/22/18 16:03> Objective - Vital Signs/Intake and Output Vital Signs (last 24 hours): Temp Pulse Resp BP Pulse Ox 97.9 F 67 16 125/82 98 09/22/18 13:35 09/22/18 13:35 09/22/18 13:35 09/22/18 14:20 09/22/18 13:35 - Medications Medications: Current Medications Amlodipine Besylate (Norvasc) 10 mg PO DAILY [facility] Last Admin: 09/22/18 09:42 Dose: 10 mg Calcium Acetate (Phoslo) 667 mg PO TID [facility] Last Admin: 09/22/18 14:00 Dose: Not Given Carvedilol (Coreg) 6.25 mg PO BID [facility] Last Admin: 09/22/18 09:42 Dose: 6.25 mg Clonidine HCl (Catapres) 0.2 mg PO TID [facility] Last Admin: 09/22/18 14:00 Dose: Not Given Epoetin Rod (Procrit) 10,000 unit [place] [facility] [place] Hydralazine HCl (Apresoline) 25 mg PO Q8 [facility] Last Admin: 09/22/18 14:00 Dose: Not Given - Labs Labs: 09/22/18 14:22 09/22/18 14:22 PT 14.6 SECONDS (9.7-12.2) H 09/11/18 00:36 INR 1.3 09/11/18 00:36 APTT 35 SECONDS (21-34) H 09/11/18 00:36 Attending/Attestation - Attestation I have personally seen and examined this patient.: Yes I have fully participated in the care of the patient.: Yes I have reviewed all pertinent clinical information, including history, physical exam and plan: Yes Notes (Text): seen and examined\ Pending dialysis arrangements no complain d/w resident and I agree with the documentation
[2018-09-19 09:12] LABS: MONOCYTE 6 % (0-10); TOTAL CELLS COUNTED 100
[2018-09-19 09:13] LABS: ANISOCYTOSIS SLIGHT; HYPOCHROMIC MODERATE; LYMPHOCYTE 5 % (20-40); NEUTROPHIL 88 % (50-75); OVALOCYTES SLIGHT; PLATELET ESTIMATE DECREASED (NORMAL); POIKILOCYTOSIS SLIGHT
[2018-09-19 09:14] LABS: GIANT PLATELETS PRESENT; LARGE PLATELETS PRESENT
[2018-09-19] MEDS: MethylPREDNISolone 40 mg Vial IV SCH ×2 (09:35→21:27)
--- NOTE | 2018-09-19 11:26 | CP.PCM.PN ---
Subjective - Date & Time of Evaluation Date of Evaluation: 09/19/18 Time of Evaluation: 11:25 - Subjective Subjective: no events no complaints Objective - Vital Signs/Intake and Output Vital Signs (last 24 hours): Temp Pulse Resp BP Pulse Ox 98.7 F 67 20 155/87 H 98 09/19/18 07:00 09/19/18 07:00 09/19/18 07:00 09/19/18 07:00 09/19/18 07:00 - Medications Medications: Current Medications Amlodipine Besylate (Norvasc) 10 mg PO DAILY [facility] Last Admin: 09/19/18 09:35 Dose: 10 mg Carvedilol (Coreg) 6.25 mg PO BID [facility] Last Admin: 09/19/18 09:35 Dose: 6.25 mg Clonidine HCl (Catapres) 0.2 mg PO TID [facility] Last Admin: 09/19/18 09:35 Dose: 0.2 mg Epoetin Rod (Procrit) 4,000 unit IV MWF [facility] Last Admin: 09/18/18 17:02 Dose: 4,000 unit Hydralazine HCl (Apresoline) 25 mg PO Q8 [facility] Last Admin: 09/19/18 05:19 Dose: 25 mg Methylprednisolone (Solu-Medrol) 60 mg IV Q12 [facility] Last Admin: 09/19/18 09:35 Dose: 60 mg - Labs Labs: 09/19/18 06:31 09/19/18 06:27 PT 14.6 SECONDS (9.7-12.2) H 09/11/18 00:36 INR 1.3 09/11/18 00:36 APTT 35 SECONDS (21-34) H 09/11/18 00:36 - Constitutional Appears: No Acute Distress, Chronically Ill - Head Exam Head Exam: NORMAL INSPECTION, NORMOCEPHALIC - Eye Exam Eye Exam: Normal appearance, PERRL - ENT Exam ENT Exam: Mucous Membranes Moist, Normal Exam - Neck Exam Neck Exam: Full ROM, Normal Inspection (rt chest permcath) - Respiratory Exam Respiratory Exam: Clear to Ausculation Bilateral, NORMAL BREATHING PATTERN - Cardiovascular Exam Cardiovascular Exam: REGULAR RHYTHM, RRR - GI/Abdominal Exam GI & Abdominal Exam: Distended, Soft - Extremities Exam Extremities Exam: Full ROM, Normal Inspection - Neurological Exam Neurological Exam: Alert, Awake, Oriented x3 - Psychiatric Exam Psychiatric exam: Normal Affect, Normal Mood - Skin Skin Exam: Normal Color, Warm Assessment and Plan (1) Anemia Status: Acute (2) Atypical hemolytic uremic syndrome Status: Acute (3) ESRD (end stage renal disease) Status: Acute (4) Thrombocytopenia Status: Chronic - Assessment and Plan (Free Text) Assessment: hd mwf bp acceptable outpt placement
[2018-09-20 06:37] LABS: BASO % 0.1 % (0.0-2.0); HEMOGLOBIN 8.7 g/dL (12.0-18.0); LYMPH # 0.9 K/uL (1.0-4.3); LYMPH % 3.5 % (20.0-40.0); MEAN CELL VOLUME 87.8 fL (80.0-94.0); MEAN CORPUSCULAR HEMOGLOBIN 28.6 pg (27.0-31.0); MEAN CORPUSCULAR HGB CONC 32.5 g/dL (33.0-37.0); MEAN PLATELET VOLUME 10.4 fL (7.2-11.7); MONO % 7.2 % (0.0-10.0); NEUT # 24.5 K/uL (1.8-7.0); NEUT % 89.2 % (50.0-75.0); NRBC % 0.3 % (0.0-2.0); RBC 3.05 Mil/uL (4.40-5.90); WHITE BLOOD COUNT 27.4 K/uL (4.8-10.8)
[2018-09-20 06:46] LABS: PLATELET COUNT 14 K/uL (130-400)
--- NOTE | 2018-09-20 07:43 | CP.PCM.PN ---
<Consuelo Santiago - Last Filed: 09/20/18 16:58> Subjective - Date & Time of Evaluation Date of Evaluation: 09/20/18 Time of Evaluation: 07:43 - Subjective Subjective: Progress note for Hospitalist service Patient seen and examined at bedside. He states he does not have any more diarrhea. As per nursing staff, no overnight events. He denies fevers, chills, headaches, dizziness, lightheadness, chest pain, shortness of breath, abdominal pain, nausea, vomiting, diarrhea. He is aware that he is due for dialysis. Objective - Vital Signs/Intake and Output Vital Signs (last 24 hours): Temp Pulse Resp BP Pulse Ox 98.4 F 74 20 151/87 H 98 09/20/18 05:40 09/20/18 05:40 09/20/18 05:40 09/20/18 05:40 09/20/18 05:40 - Medications Medications: Current Medications Amlodipine Besylate (Norvasc) 10 mg PO DAILY [facility] Last Admin: 09/19/18 09:35 Dose: 10 mg Carvedilol (Coreg) 6.25 mg PO BID [facility] Last Admin: 09/19/18 17:16 Dose: 6.25 mg Clonidine HCl (Catapres) 0.2 mg PO TID [facility] Last Admin: 09/19/18 17:16 Dose: 0.2 mg Epoetin Rod (Procrit) 4,000 unit IV MWF [facility] Last Admin: 09/18/18 17:02 Dose: 4,000 unit Hydralazine HCl (Apresoline) 25 mg PO Q8 [facility] Last Admin: 09/20/18 05:41 Dose: 25 mg Methylprednisolone (Solu-Medrol) 60 mg IV Q12 [facility] Last Admin: 09/19/18 21:27 Dose: 60 mg - Labs Labs: 09/20/18 06:28 09/19/18 06:27 PT 14.6 SECONDS (9.7-12.2) H 09/11/18 00:36 INR 1.3 09/11/18 00:36 APTT 35 SECONDS (21-34) H 09/11/18 00:36 - Constitutional Appears: Well, No Acute Distress - Head Exam Head Exam: ATRAUMATIC, NORMOCEPHALIC - Eye Exam Eye Exam: EOMI - ENT Exam ENT Exam: Mucous Membranes Moist - Respiratory Exam Respiratory Exam: Clear to Ausculation Bilateral. absent: Rales, Rhonchi, Wheezes, Respiratory Distress, Stridor Additional comments: right chest permacath dressing clean, dry, intact. - Cardiovascular Exam Cardiovascular Exam: REGULAR RHYTHM, +S1, +S2. absent: Gallop, Rubs, Murmur - GI/Abdominal Exam GI & Abdominal Exam: Soft, Normal Bowel Sounds. absent: Distended, Firm, Guarding, Rigid, Tenderness - Extremities Exam Extremities Exam: Normal Capillary Refill. 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 His symptoms have resolved. He is now awaiting placement for outpatient HD. 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 However, cannot r/o Alport's syndrome - has not been compliant with eculizumab for last 4 months - Hgb 8.2 on admission - Type and cross -> transfused 2u PRBC 09/11 -> Hgb 6.5 - Hgb 5.7 on 09/13 -> transfused 2u PRBC with HD -> Hgb 8.0 - Heme consulted: Dr. Benites - help appreciated - Trend with AM labs - Hgb 8.7 today - continue to transfuse prn with HD Severe Thrombocytopenia - likely 2/2 atypical HUS - has not been compliant with eculizumab for last 4 months - Plts 6 on admission - DDAVP 20mcg and Solumedrol 125mg given prior to 2u platelet transfusion 09/11 - Plts 5 -> another 2u Plts transfused 09/12 -> Plts 37 - Plts 13 on 09/18/18: Given leukocytosis, case discussed with Dr. Benites who requested manual platelet count. Recommended 1 unit of platelet transfusion if manual platelet count is less than 20. Manual platelet ct 25. No need to transfuse at this time as per Dr. Benites. - 09/20/18 : Plts 14 today, manual count 47 -> no need to transfuse at this time. - cont Solumedrol 60mg IV q12, Solumedrol 60mg once 09/21/18, discontinue 09/22/18 - Heme consulted: Dr. Benites - help appreciated - Trend with AM labs - continue to transfuse prn - monitor for bleeding Leukocytosis - White count elevated 27.4 - Blood Cx from port (09/12): neg x5 days - blood Cx 09/18 neg x48 hours - UA 3+ protein, 2+ glucose - urine cultures 09/18 negative - stool culture, and stool studies including O&P, C diff negative - 09/20/18: Case discussed with Dr. Benites who agreed with plan to taper off Solumedrol since it might be causing leukocytosis. Recommended Solumedrol 60mg once tomorrow and then discontinuing on 09/22/18. Diarrhea, resolved - Elevated white count 27.4 - stool culture negative, - Stool ova and parasite negative - CD negative - Continue to monitor ESRD on HD MWF - BUN/Cr: 72/10.7 on admission - elevated from previous admission of Cr of 7s - has not had dialysis in the last 4 months, still producing urine - Vasc Surgery consulted: Dr. Philomena goodson appreciated Existing R chest Permacath flushed and still functional Blood Cx if concerned for long indwelling infection No surgical intervention at this time as vascular access intact and new access involves high risk with low platelets Signed off 09/11 - Nephro consulted: Dr. Hamilton goodson appreciated Cont on MWF schedule EPO with HD - BUN/Cr 97/6.9, due to HD today - Trend with AM labs Code Sepsis - called for elevated WBC and tachycardia, suspected long time indwelling cath infection - CXR (09/11): mild pulmonary venous congestion - repeat CXR (09/12): pending read - no rashes, skin changes, sensitivities noticed on skin, including area surrounding catheter - UA (09/11): 3+ protein - VBG (09/11): pH 7.48, lactate 1.6 - procalcitonin (09/11): 0.85 - Given Zosyn 2.25gm and Vancomycin 1gm IV, Gentamicin 270mg once in ED - blood Cx (09/11): Cornebacterium speices, no guidelines on sensitivities - blood Cx drawn from [facility] (09/12): no growth @ 48hrs - Vancomycin 1gm IVPB daily (started 09/11) --> discontinued - random Vanc (09/12): 24.7 - Vanc trough @ 0030am Jessica 09/14: 18.9 -> hold for one day - Vanc trough @ 0030am on 09/19 before 8th dose - Zosyn 2.25gm IVPB q8 (started 09/12) -> discontinued - Trend with AM labs Hypertension - home Norvasc 10mg po daily - home Coreg 6.25mg po bid - home Clonidine 0.2mg po tid - home hydralazine 25mg po tid - Monitor vitals Possible GI bleed - Hgb 8.2 on admission. Stool occult blood positive in ED - s/p transfusion 2u PRBC (09/11) - to receive another 2u PRBC in dialysis (09/13) - GI consulted: Dr. Elliott - kellee appreciated unlikely upper GI bleed no GI intervention, including endoscopy, indicated at this time rec Pepcid over Protonix if GI ppx indicated signed off 09/11 PPx - DVT: Chemical AC CI d/t severe thrombocytopenia, SCDs - GI: CI d/t severe thrombocytopenia - Diet: Diabetic Soft diet - Labs with MWF dialysis - Palliative Care consulted: Continues to be Full Code without Advanced Directive. Encouraged to attend HD as outpatient although patient is still resistant. - Dispo: Patient has lost previous HD chair. has begun looking for an outpatient HD center who will accept him with [facility]. Case discussed with Dr. Shivam Santiago, PGY1 <Paulette Langley - Last Filed: 09/22/18 16:24> Objective - Vital Signs/Intake and Output Vital Signs (last 24 hours): Temp Pulse Resp BP Pulse Ox 97.2 F L 73 20 137/79 97 09/21/18 15:00 09/21/18 15:00 09/21/18 15:00 09/21/18 15:00 09/21/18 15:00 - Medications Medications: Current Medications Amlodipine Besylate (Norvasc) 10 mg PO DAILY [facility] Last Admin: 09/21/18 09:13 Dose: 10 mg Carvedilol (Coreg) 6.25 mg PO BID [facility] Last Admin: 09/21/18 09:13 Dose: 6.25 mg Clonidine HCl (Catapres) 0.2 mg PO TID [facility] Last Admin: 09/21/18 13:17 Dose: 0.2 mg Epoetin Rod (Procrit) 4,000 unit IV MWF [facility] Last Admin: 09/20/18 15:13 Dose: 4,000 unit Hydralazine HCl (Apresoline) 25 mg PO Q8 [facility] Last Admin: 09/21/18 13:17 Dose: 25 mg - Labs Labs: 09/20/18 06:28 09/20/18 06:28 PT 14.6 SECONDS (9.7-12.2) H 09/11/18 00:36 INR 1.3 09/11/18 00:36 APTT 35 SECONDS (21-34) H 09/11/18 00:36 Attending/Attestation - Attestation I have personally seen and examined this patient.: Yes I have fully participated in the care of the patient.: Yes I have reviewed all pertinent clinical information, including history, physical exam and plan: Yes Notes (Text): Seen and examined Patient feels good Assessment and the plan discussed I agree with the documentation
[2018-09-20 08:01] LABS: ALB/GLOB RATIO 1.3 (1.0-2.1); CALCIUM 8.2 mg/dl (8.6-10.4)
[2018-09-20 08:30] LABS: ANISOCYTOSIS SLIGHT; HYPOCHROMIC SLIGHT; LYMPHOCYTE 6 % (20-40); MONOCYTE 5 % (0-10); NEUTROPHIL 89 % (50-75); PLATELET ESTIMATE DECREASED (NORMAL); POIKILOCYTOSIS SLIGHT; TOTAL CELLS COUNTED 100
[2018-09-20 08:31] LABS: ACANTHOCYTES SLIGHT; BURR CELLS SLIGHT; GIANT PLATELETS PRESENT; HELMET CELLS SLIGHT; LARGE PLATELETS PRESENT; TARGET CELLS SLIGHT; TEARDROP CELLS SLIGHT
[2018-09-20 09:04] LABS: PLATELET COUNT MANUAL 47 K/uL (130-400)
[2018-09-20] MEDS: MethylPREDNISolone 40 mg Vial IV SCH ×2 (10:10→21:12)
--- NOTE | 2018-09-20 12:53 | CP.PCM.PN ---
Subjective - Date & Time of Evaluation Date of Evaluation: 09/20/18 Time of Evaluation: 12:51 - Subjective Subjective: no complaints no acute events no bruising HD today Objective - Vital Signs/Intake and Output Vital Signs (last 24 hours): Temp Pulse Resp BP Pulse Ox 98.0 F 69 18 149/88 97 09/20/18 07:05 09/20/18 10:10 09/20/18 07:05 09/20/18 10:10 09/20/18 07:05 - Medications Medications: Current Medications Amlodipine Besylate (Norvasc) 10 mg PO DAILY [facility] Last Admin: 09/20/18 10:10 Dose: 10 mg Carvedilol (Coreg) 6.25 mg PO BID [facility] Last Admin: 09/20/18 10:10 Dose: 6.25 mg Clonidine HCl (Catapres) 0.2 mg PO TID [facility] Last Admin: 09/20/18 10:10 Dose: 0.2 mg Epoetin Rod (Procrit) 4,000 unit IV MWF [facility] Last Admin: 09/18/18 17:02 Dose: 4,000 unit Hydralazine HCl (Apresoline) 25 mg PO Q8 [facility] Last Admin: 09/20/18 05:41 Dose: 25 mg Methylprednisolone (Solu-Medrol) 60 mg IV Q12 [facility] Last Admin: 09/20/18 10:10 Dose: 60 mg - Labs Labs: 09/20/18 06:28 09/20/18 06:28 PT 14.6 SECONDS (9.7-12.2) H 09/11/18 00:36 INR 1.3 09/11/18 00:36 APTT 35 SECONDS (21-34) H 09/11/18 00:36 - Constitutional Appears: Non-toxic - Head Exam Head Exam: ATRAUMATIC - Eye Exam Eye Exam: EOMI - ENT Exam ENT Exam: Mucous Membranes Moist - Neck Exam Neck Exam: Full ROM. absent: Lymphadenopathy - Respiratory Exam Respiratory Exam: NORMAL BREATHING PATTERN. absent: Accessory Muscle Use - Cardiovascular Exam Cardiovascular Exam: REGULAR RHYTHM - GI/Abdominal Exam GI & Abdominal Exam: Soft. absent: Tenderness - Neurological Exam Neurological Exam: Alert, Awake, Oriented x3 Assessment and Plan - Assessment and Plan (Free Text) Assessment: HD today needs HD placement Heme follow up for thrombocytopenia
[2018-09-20] MEDS: EPOETIN ALFA 4,000 UNIT/ML ML Dialysis IV SCH (15:13)
[2018-09-20 16:37] LABS: SOURCE STOOL
--- NOTE | 2018-09-21 07:02 | CP.PCM.PN ---
<Consuelo Santiago - Last Filed: 09/21/18 17:40> Subjective - Date & Time of Evaluation Date of Evaluation: 09/21/18 Time of Evaluation: 07:02 - Subjective Subjective: Progress note for Hospitalist service Patient seen and examined at bedside. He states that he no longer has any diarrhea. He denies fevers, chills, chest pain, shortness of breath, abdominal pain, nausea, vomiting, constipation, leg pain. He has not had any events of bleeding overnight. He offers no complaints currently and is awaiting outpatient HD. Objective - Vital Signs/Intake and Output Vital Signs (last 24 hours): Temp Pulse Resp BP Pulse Ox 98.4 F 69 20 119/70 96 09/20/18 23:05 09/20/18 23:05 09/20/18 23:05 09/20/18 23:05 09/20/18 23:05 - Medications Medications: Current Medications Amlodipine Besylate (Norvasc) 10 mg PO DAILY [facility] Last Admin: 09/20/18 10:10 Dose: 10 mg Carvedilol (Coreg) 6.25 mg PO BID [facility] Last Admin: 09/20/18 17:39 Dose: 6.25 mg Clonidine HCl (Catapres) 0.2 mg PO TID [facility] Last Admin: 09/20/18 17:39 Dose: 0.2 mg Epoetin Rod (Procrit) 4,000 unit IV MWF [facility] Last Admin: 09/20/18 15:13 Dose: 4,000 unit Hydralazine HCl (Apresoline) 25 mg PO Q8 [facility] Last Admin: 09/21/18 06:06 Dose: 25 mg Methylprednisolone (Solu-Medrol) 60 mg IVP DAILY [facility] Stop: 09/21/18 12:00 - Labs Labs: 09/20/18 06:28 09/20/18 06:28 PT 14.6 SECONDS (9.7-12.2) H 09/11/18 00:36 INR 1.3 09/11/18 00:36 APTT 35 SECONDS (21-34) H 09/11/18 00:36 - Constitutional Appears: Well, No Acute Distress - Head Exam Head Exam: ATRAUMATIC, NORMOCEPHALIC - Eye Exam Eye Exam: EOMI - ENT Exam ENT Exam: Mucous Membranes Moist - Respiratory Exam Respiratory Exam: Clear to Ausculation Bilateral. absent: Rales, Rhonchi, Wheezes, Respiratory Distress, Stridor Additional comments: right chest permacath dressing clean, dry, intact - Cardiovascular Exam Cardiovascular Exam: REGULAR RHYTHM, +S1, +S2. absent: Gallop, Rubs, Murmur - GI/Abdominal Exam GI & Abdominal Exam: Soft, Normal Bowel Sounds. absent: Distended, Firm, Guarding, Rigid, Tenderness, Organomegaly - Extremities Exam Extremities Exam: Normal Capillary Refill. absent: Calf Tenderness, Pedal Edema, Tenderness Additional comments: DP and radial pulses equal and palpable. 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 His symptoms have resolved. He is now awaiting placement for outpatie nt HD. 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 However, cannot r/o Alport's syndrome - has not been compliant with eculizumab for last 4 months - Hgb 8.2 on admission - Type and cross -> transfused 2u PRBC 09/11 -> Hgb 6.5 - Hgb 5.7 on 09/13 -> transfused 2u PRBC with HD -> Hgb 8.0 - Heme consulted: Dr. Benites - help appreciated - Trend with AM labs - Hgb 8.7 yesterday - continue to transfuse prn with HD - Plan to do labs on MWF with dialysis Severe Thrombocytopenia - likely 2/2 atypical HUS - has not been compliant with eculizumab for last 4 months - Plts 6 on admission - DDAVP 20mcg and Solumedrol 125mg given prior to 2u platelet transfusion 09/11 - Plts 5 -> another 2u Plts transfused 09/12 -> Plts 37 - Plts 13 on 09/18/18: Given leukocytosis, case discussed with Dr. Benites who requested manual platelet count. Recommended 1 unit of platelet transfusion if manual platelet count is less than 20. Manual platelet ct 25. No need to transfuse at this time as per Dr. Benites. - 09/20/18 : Plts 14 today, manual count 47 -> no need to transfuse at this time. - cont Solumedrol 60mg IV q12, Solumedrol 60mg once 09/21/18, discontinue 09/22/18 - Heme consulted: Dr. Benites - help appreciated - Trend with AM labs - continue to transfuse prn - monitor for bleeding - Plan to do labs on MWF with dialysis Leukocytosis - White count elevated 27.4 - Blood Cx from port (09/12): neg x5 days - blood Cx 09/18 neg x48 hours - UA 3+ protein, 2+ glucose - urine cultures 09/18 negative - stool culture, and stool studies including O&P, C diff negative - 09/20/18: Case discussed with Dr. Benites who agreed with plan to taper off Solumedrol since it might be causing leukocytosis. Recommended Solumedrol 60mg once tomorrow and then discontinuing on 09/22/18. Patient was treated with Solumedrol 60mg Q12 from 09/16/18 - 09/20/18 Diarrhea, resolved - Elevated white count 27.4 yeserday - stool culture negative, - Stool ova and parasite negative - CD negative - Continue to monitor ESRD on HD MWF - BUN/Cr: 72/10.7 on admission - elevated from previous admission of Cr of 7s - has not had dialysis in the last 4 months, still producing urine - Vasc Surgery consulted: Dr. Philomena goodson appreciated Existing R chest Permacath flushed and still functional Blood Cx if concerned for long indwelling infection No surgical intervention at this time as vascular access intact and new access involves high risk with low platelets Signed off 09/11 - Nephro consulted: Dr. Hamilton goodson appreciated Cont on MWF schedule EPO with HD - BUN/Cr 97/6.9, due to HD tomorow - Trend with MWF labs Code Sepsis - called for elevated WBC and tachycardia, suspected long time indwelling cath infection - CXR (09/11): mild pulmonary venous congestion - repeat CXR (09/12): pending read - no rashes, skin changes, sensitivities noticed on skin, including area surrounding catheter - UA (09/11): 3+ protein - VBG (09/11): pH 7.48, lactate 1.6 - procalcitonin (09/11): 0.85 - Given Zosyn 2.25gm and Vancomycin 1gm IV, Gentamicin 270mg once in ED - blood Cx (09/11): Cornebacterium speices, no guidelines on sensitivities - [facility] growth @ 48hrs - Vancomycin 1gm IVPB daily (started 09/11) --> discontinued - random Vanc (09/12): 24.7 - Vanc trough @ 0030am Jessica 09/14: 18.9 -> hold for one day - Vanc trough @ 0030am on 09/19 before 8th dose - Zosyn 2.25gm IVPB q8 (started 09/12) -> discontinued - Trend with F labs Hypertension - home Norvasc 10mg po daily - home Coreg 6.25mg po bid - home Clonidine 0.2mg po tid - home hydralazine 25mg po tid - Monitor vitals Possible GI bleed - Hgb 8.2 on admission. Stool occult blood positive in ED - s/p transfusion 2u PRBC (09/11) - to receive another 2u PRBC in dialysis (09/13) - GI consulted: Dr. Elliott - [facility] appreciated unlikely upper GI bleed no GI intervention, including endoscopy, indicated at this time rec Pepcid over Protonix if GI ppx indicated signed off 09/11 PPx - DVT: Chemical AC CI d/t severe thrombocytopenia, SCDs - GI: CI d/t severe thrombocytopenia - Diet: Diabetic Soft diet - Labs with MWF dialysis - Palliative Care consulted: Continues to be Full Code without Advanced Directive. Encouraged to attend HD as outpatient although patient is still res istant. - Dispo: Patient has lost previous HD chair. CM has begun looking for an outpatient HD center who will accept him with [facility]. Case discussed with Dr. Shivam Santiago, PGY1 <Paulette Langley - Last Filed: 09/22/18 16:23> Objective - Vital Signs/Intake and Output Vital Signs (last 24 hours): Temp Pulse Resp BP Pulse Ox 97.9 F 67 16 125/82 98 09/22/18 13:35 09/22/18 13:35 09/22/18 13:35 09/22/18 14:20 09/22/18 13:35 - Medications Medications: Current Medications Amlodipine Besylate (Norvasc) 10 mg PO DAILY [facility] Last Admin: 09/22/18 09:42 Dose: 10 mg Calcium Acetate (Phoslo) 667 mg PO TID [facility] Last Admin: 09/22/18 14:00 Dose: Not Given Carvedilol (Coreg) 6.25 mg PO BID [facility] Last Admin: 09/22/18 09:42 Dose: 6.25 mg Clonidine HCl (Catapres) 0.2 mg PO TID [facility] Last Admin: 09/22/18 14:00 Dose: Not Given Epoetin Rod (Procrit) 10,000 unit IV [facility] Hydralazine HCl (Apresoline) 25 mg PO Q8 [facility] Last Admin: 09/22/18 14:00 Dose: Not Given - Labs Labs: 09/22/18 14:22 09/22/18 14:22 PT 14.6 SECONDS (9.7-12.2) H 09/11/18 00:36 INR 1.3 09/11/18 00:36 APTT 35 SECONDS (21-34) H 09/11/18 00:36 Attending/Attestation - Attestation I have personally seen and examined this patient.: Yes I have fully participated in the care of the patient.: Yes I have reviewed all pertinent clinical information, including history, physical exam and plan: Yes Notes (Text): seen and examined,has no complain,no fever,no diarrhea pending dialysis arrangements I agree with the resident's documentation
--- NOTE | 2018-09-21 09:58 | CP.PCM.PN ---
Subjective - Date & Time of Evaluation Date of Evaluation: 09/21/18 Time of Evaluation: 09:56 - Subjective Subjective: Stable dialysis course no new complaint HTN controlled plats, Hg about same Objective - Vital Signs/Intake and Output Vital Signs (last 24 hours): Temp Pulse Resp BP Pulse Ox 98.2 F 68 18 148/90 97 09/21/18 08:56 09/21/18 08:56 09/21/18 08:56 09/21/18 08:56 09/21/18 08:56 - Medications Medications: Current Medications Amlodipine Besylate (Norvasc) 10 mg PO DAILY [facility] Last Admin: 09/21/18 09:13 Dose: 10 mg Carvedilol (Coreg) 6.25 mg PO BID [facility] Last Admin: 09/21/18 09:13 Dose: 6.25 mg Clonidine HCl (Catapres) 0.2 mg PO TID [facility] Last Admin: 09/21/18 09:13 Dose: 0.2 mg Epoetin Rod (Procrit) 4,000 unit IV MWF [facility] Last Admin: 09/20/18 15:13 Dose: 4,000 unit Hydralazine HCl (Apresoline) 25 mg PO Q8 [facility] Last Admin: 09/21/18 06:06 Dose: 25 mg Methylprednisolone (Solu-Medrol) 60 mg IVP DAILY [facility] Stop: 09/21/18 12:00 Last Admin: 09/21/18 09:13 Dose: 60 mg - Labs Labs: 09/20/18 06:28 09/20/18 06:28 PT 14.6 SECONDS (9.7-12.2) H 09/11/18 00:36 INR 1.3 09/11/18 00:36 APTT 35 SECONDS (21-34) H 09/11/18 00:36 - Constitutional Appears: No Acute Distress, Chronically Ill - Head Exam Head Exam: ATRAUMATIC, NORMAL INSPECTION - Eye Exam Eye Exam: EOMI, Normal appearance - Neck Exam Neck Exam: Normal Inspection. absent: Tenderness - Respiratory Exam Respiratory Exam: Clear to Ausculation Bilateral, NORMAL BREATHING PATTERN - Cardiovascular Exam Cardiovascular Exam: REGULAR RHYTHM, +S1 - GI/Abdominal Exam GI & Abdominal Exam: Soft. absent: Tenderness - Extremities Exam Extremities Exam: Normal Inspection. absent: Tenderness - Neurological Exam Neurological Exam: Awake, CN II-XII Intact - Skin Skin Exam: Dry, Warm Assessment and Plan (1) Gastrointestinal hemorrhage Status: Acute (2) Thrombocytopenia Status: Acute (3) Dialysis catheter clot or failure Status: Acute (4) ESRD (end stage renal disease) Status: Acute (5) Hemolytic uremic syndrome Status: Acute (6) Hypertensive chronic kidney disease with stage 5 chronic kidney disease or end stage renal disease Status: Acute (7) Thrombocytopenia Status: Acute - Assessment and Plan (Free Text) Plan: Dialysis MWF Same meds Await HD placement
[2018-09-21] MEDS ORDERED: MethylPREDNISolone 40 mg Vial IVP SCH (10:00)
--- NOTE | 2018-09-22 09:24 | CP.PCM.PN ---
<Consuelo Santiago - Last Filed: 09/22/18 18:03> Subjective - Date & Time of Evaluation Date of Evaluation: 09/22/18 Time of Evaluation: 09:23 - Subjective Subjective: Progress note for Hospitalist service Patient seen and evaluated at bedside. He states he does not have any diarrhea today. He states that he has not had any bleeding. Patient is due for dialysis today. He denies fevers, chills, chest pain, shortness of breath, abdominal pain, nausea, vomiting, constipation, leg pain. He has not had any events overnight. He is awaiting placement for outpatient HD. Objective - Vital Signs/Intake and Output Vital Signs (last 24 hours): Temp Pulse Resp BP Pulse Ox 98 F 78 20 137/79 97 09/22/18 08:07 09/22/18 08:07 09/22/18 08:07 09/22/18 08:07 09/22/18 08:07 - Medications Medications: Current Medications Amlodipine Besylate (Norvasc) 10 mg PO DAILY [facility] Last Admin: 09/21/18 09:13 Dose: 10 mg Carvedilol (Coreg) 6.25 mg PO BID [facility] Last Admin: 09/21/18 17:56 Dose: 6.25 mg Clonidine HCl (Catapres) 0.2 mg PO TID [facility] Last Admin: 09/21/18 17:56 Dose: 0.2 mg Epoetin Rod (Procrit) 4,000 unit IV MWF [facility] Last Admin: 09/20/18 15:13 Dose: 4,000 unit Hydralazine HCl (Apresoline) 25 mg PO Q8 [facility] Last Admin: 09/22/18 05:28 Dose: 25 mg - Labs Labs: 09/20/18 06:28 09/20/18 06:28 PT 14.6 SECONDS (9.7-12.2) H 09/11/18 00:36 INR 1.3 09/11/18 00:36 APTT 35 SECONDS (21-34) H 09/11/18 00:36 - Constitutional Appears: Well, No Acute Distress - Head Exam Head Exam: ATRAUMATIC, NORMOCEPHALIC - Eye Exam Eye Exam: EOMI - ENT Exam ENT Exam: Mucous Membranes Moist - Neck Exam Neck Exam: Full ROM - Respiratory Exam Respiratory Exam: Clear to Ausculation Bilateral. absent: Rales, Rhonchi, Wheezes, Respiratory Distress, Stridor Additional comments: Right chest permacath - Cardiovascular Exam Cardiovascular Exam: REGULAR RHYTHM, +S1, +S2. absent: Gallop, Rubs, Murmur - GI/Abdominal Exam GI & Abdominal Exam: Soft, Normal Bowel Sounds. absent: Distended, Firm, Guarding, Rigid, Tenderness, Hyperactive Bowel Sounds, Organomegaly - Extremities Exam Extremities Exam: Normal Capillary Refill. 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 His symptoms have resolved. He is now awaiting placement for outpatient HD. 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 However, cannot r/o Alport's syndrome - has not been compliant with eculizumab for last 4 months - Hgb 8.2 on admission - Type and cross -> transfused 2u PRBC 09/11 -> Hgb 6.5 - Hgb 5.7 on 09/13 -> transfused 2u PRBC with HD -> Hgb 8.0 - Heme consulted: Dr. Benites - help appreciated - Trend with AM labs - Hgb 8.7 today - continue to transfuse prn with HD - Plan to do labs on MWF with dialysis Severe Thrombocytopenia - likely 2/2 atypical HUS - has not been compliant with eculizumab for last 4 months - Plts 6 on admission - DDAVP 20mcg and Solumedrol 125mg given prior to 2u platelet transfusion 09/11 - Plts 5 -> another 2u Plts transfused 09/12 -> Plts 37 - Plts 13 on 09/18/18: Given leukocytosis, case discussed with Dr. Benites who requ ested manual platelet count. Recommended 1 unit of platelet transfusion if manual platelet count is less than 20. Manual platelet ct 25. No need to transfuse at this time as per Dr. Benites. - cont Solumedrol 60mg IV q12, Solumedrol 60mg once 09/21/18, discontinue 09/22/18 - Heme consulted: Dr. Benites - help appreciated - Trend with AM labs - continue to transfuse prn - monitor for bleeding - Plan to do labs on MWF with dialysis Leukocytosis - White count elevated 31.1, continue to monitor, to see if leukocytosis is secondary to recent steroid use - Blood Cx from port (09/12): neg x5 days - blood Cx 09/18 neg x48 hours - UA 3+ protein, 2+ glucose - urine cultures 09/18 negative - stool culture, and stool studies including O&P, C diff negative - 09/20/18: Case discussed with Dr. Benites who agreed with plan to taper off Solumedrol since it might be causing leukocytosis. Recommended Solumedrol 60mg once tomorrow and then discontinuing on 09/22/18. Patient was treated with Solumedrol 60mg Q12 from 09/16/18 - 09/20/18 Diarrhea, resolved - Elevated white count 31.1 - stool culture negative, - Stool ova and parasite negative - CD negative - Continue to monitor ESRD on HD MWF - BUN/Cr: 72/10.7 on admission - elevated from previous admission of Cr of 7s - has not had dialysis in the last 4 months, still producing urine - Vasc Surgery consulted: Dr. Philomena goodson appreciated Existing R chest Permacath flushed and still functional Blood Cx if concerned for long indwelling infection No surgical intervention at this time as vascular access intact and new access involves high risk with low platelets Signed off 09/11 - Nephro consulted: Dr. Hamilton goodson appreciated Cont on MWF schedule EPO with HD - BUN/Cr 101/7.4, due to HD today - Trend with MWF labs Code Sepsis - called for elevated WBC and tachycardia, suspected long time indwelling cath infection - CXR (09/11): mild pulmonary venous congestion - repeat CXR (09/12): pending read - no rashes, skin changes, sensitivities noticed on skin, including area surrounding catheter - UA (09/11): 3+ protein - VBG (09/11): pH 7.48, lactate 1.6 - procalcitonin (09/11): 0.85 - Given Zosyn 2.25gm and Vancomycin 1gm IV, Gentamicin 270mg once in ED - blood Cx (09/11): Cornebacterifernandez lester, no guidelines on sensitivities - blood Cx drawn from [facility] (09/12): no growth @ 48hrs - Vancomycin 1gm IVPB daily (started 09/11) --> discontinued - random Vanc (09/12): 24.7 - Vanc trough @ 0030am Jessica 09/14: 18.9 -> hold for one day - Vanc trough @ 0030am on 09/19 before 8th dose - Zosyn 2.25gm IVPB q8 (started 09/12) -> discontinued - Trend with MWF labs Hypertension - home Norvasc 10mg po daily - home Coreg 6.25mg po bid - home Clonidine 0.2mg po tid - home hydralazine 25mg po tid - Monitor vitals Possible GI bleed - Hgb 8.2 on admission. Stool occult blood positive in ED - s/p transfusion 2u PRBC (09/11) - to receive another 2u PRBC in dialysis (09/13) - GI consulted: Dr. Elliott - [facility] appreciated unlikely upper GI bleed no GI intervention, including endoscopy, indicated at this time rec Pepcid over Protonix if GI ppx indicated signed off 09/11 PPx - DVT: Chemical AC CI d/t severe thrombocytopenia, SCDs - GI: CI d/t severe thrombocytopenia - Diet: Diabetic Soft diet - Labs with MWF dialysis - Palliative Care consulted: Continues to be Full Code without Advanced Directive. Encouraged to attend HD as outpatient although patient is still resistant. - Dispo: Patient has lost previous HD chair. has begun looking for an outpatient HD center who will accept him with [facility]. Case discussed with Dr. Shivam Santiago, PGY1 <Paulette Langley - Last Filed: 09/22/18 19:06> Objective - Vital Signs/Intake and Output Vital Signs (last 24 hours): Temp Pulse Resp BP Pulse Ox 98.6 F 71 20 146/89 99 09/22/18 17:46 09/22/18 17:46 09/22/18 17:46 09/22/18 17:46 09/22/18 17:46 - Medications Medications: Current Medications Amlodipine Besylate (Norvasc) 10 mg PO DAILY [facility] Last Admin: 09/22/18 09:42 Dose: 10 mg Calcium Acetate (Phoslo) 667 mg PO TID [facility] Last Admin: 09/22/18 17:50 Dose: 667 mg Carvedilol (Coreg) 6.25 mg PO BID [facility] Last Admin: 09/22/18 17:47 Dose: 6.25 mg Clonidine HCl (Catapres) 0.2 mg PO TID [facility] Last Admin: 09/22/18 17:47 Dose: 0.2 mg Epoetin Rod (Procrit) 10,000 unit IV MWF [facility] Last Admin: 09/22/18 17:26 Dose: 10,000 unit Hydralazine HCl (Apresoline) 25 mg PO Q8 [facility] Last Admin: 09/22/18 14:00 Dose: Not Given - Labs Labs: 09/22/18 14:22 09/22/18 14:22 PT 14.6 SECONDS (9.7-12.2) H 09/11/18 00:36 INR 1.3 09/11/18 00:36 APTT 35 SECONDS (21-34) H 09/11/18 00:36 Attending/Attestation - Attestation I have personally seen and examined this patient.: No I have fully participated in the care of the patient.: Yes I have reviewed all pertinent clinical information, including history, physical exam and plan: Yes
--- NOTE | 2018-09-22 13:08 | CP.PCM.PN ---
Subjective - Date & Time of Evaluation Date of Evaluation: 09/22/18 Time of Evaluation: 13:05 - Subjective Subjective: Alert; no new complaint for HD now awaiting placement phos elevated Objective - Vital Signs/Intake and Output Vital Signs (last 24 hours): Temp Pulse Resp BP Pulse Ox 98 F 78 20 137/79 97 09/22/18 08:07 09/22/18 08:07 09/22/18 08:07 09/22/18 08:07 09/22/18 08:07 - Medications Medications: Current Medications Amlodipine Besylate (Norvasc) 10 mg PO DAILY [facility] Last Admin: 09/22/18 09:42 Dose: 10 mg Carvedilol (Coreg) 6.25 mg PO BID [facility] Last Admin: 09/22/18 09:42 Dose: 6.25 mg Clonidine HCl (Catapres) 0.2 mg PO TID [facility] Last Admin: 09/22/18 09:42 Dose: 0.2 mg Epoetin Rod (Procrit) 4,000 unit IV MWF [facility] Last Admin: 09/20/18 15:13 Dose: 4,000 unit Hydralazine HCl (Apresoline) 25 mg PO Q8 [facility] Last Admin: 09/22/18 05:28 Dose: 25 mg - Labs Labs: 09/20/18 06:28 09/20/18 06:28 PT 14.6 SECONDS (9.7-12.2) H 09/11/18 00:36 INR 1.3 09/11/18 00:36 APTT 35 SECONDS (21-34) H 09/11/18 00:36 - Constitutional Appears: No Acute Distress, Chronically Ill - Head Exam Head Exam: ATRAUMATIC, NORMAL INSPECTION - Eye Exam Eye Exam: EOMI, Normal appearance - Neck Exam Neck Exam: Normal Inspection. absent: Tenderness - Respiratory Exam Respiratory Exam: Clear to Ausculation Bilateral, NORMAL BREATHING PATTERN - Cardiovascular Exam Cardiovascular Exam: REGULAR RHYTHM, +S1 - GI/Abdominal Exam GI & Abdominal Exam: Soft, Tenderness - Extremities Exam Extremities Exam: Normal Inspection. absent: Tenderness - Neurological Exam Neurological Exam: Alert, CN II-XII Intact - Skin Skin Exam: Dry, Warm Assessment and Plan (1) Gastrointestinal hemorrhage Status: Acute (2) Thrombocytopenia Status: Acute (3) Dialysis catheter clot or failure Status: Acute (4) ESRD (end stage renal disease) Status: Acute (5) Hemolytic uremic syndrome Status: Acute (6) Hypertensive chronic kidney disease with stage 5 chronic kidney disease or end stage renal disease Status: Acute (7) Thrombocytopenia Status: Acute - Assessment and Plan (Free Text) Plan: dialysis MWF increase binders
[2018-09-22 14:30] LABS: BASO % 0.1 % (0.0-2.0); HEMOGLOBIN 8.7 g/dL (12.0-18.0); LYMPH # 2.5 K/uL (1.0-4.3); LYMPH % 8.1 % (20.0-40.0); MEAN CORPUSCULAR HEMOGLOBIN 28.9 pg (27.0-31.0); MEAN CORPUSCULAR HGB CONC 32.1 g/dL (33.0-37.0); MEAN PLATELET VOLUME 11.3 fL (7.2-11.7); MONO # 3.7 K/uL (0.0-0.8); MONO % 11.9 % (0.0-10.0); NEUT # 24.9 K/uL (1.8-7.0); NEUT % 79.9 % (50.0-75.0); NRBC % 0.4 % (0.0-2.0); RBC 3.02 Mil/uL (4.40-5.90); RED CELL DISTRIBUTION WIDTH 17.9 % (11.5-14.5); WHITE BLOOD COUNT 31.1 K/uL (4.8-10.8)
[2018-09-22 14:36] LABS: PLATELET COUNT 14 K/uL (130-400)
[2018-09-22 15:01] LABS: ALB/GLOB RATIO 1.3 (1.0-2.1); ALBUMIN 2.9 g/dL (3.5-5.0); CALCIUM 7.8 mg/dl (8.6-10.4)
[2018-09-22 15:38] LABS: PLATELET COUNT MANUAL 52 K/uL (130-400)
[2018-09-22 15:52] LABS: LYMPHOCYTE 5 % (20-40); MONOCYTE 11 % (0-10); NEUTROPHIL 84 % (50-75); PLATELET ESTIMATE DECREASED (NORMAL); TOTAL CELLS COUNTED 100
[2018-09-22 15:53] LABS: ANISOCYTOSIS SLIGHT; BURR CELLS SLIGHT; HYPOCHROMIC SLIGHT; MICROCYTOSIS SLIGHT; OVALOCYTES SLIGHT; POIKILOCYTOSIS SLIGHT; POLYCHROMIC SLIGHT; TARGET CELLS SLIGHT
[2018-09-22 15:54] LABS: GIANT PLATELETS PRESENT; HELMET CELLS SLIGHT; LARGE PLATELETS PRESENT
[2018-09-22] MEDS: Epoetin Alfa 10,000 unit/ml Dialysis IV SCH (17:26)
--- NOTE | 2018-09-23 04:28 | CP.PCM.PN ---
<Angelica Jacob Y - Last Filed: 09/23/18 04:26> Subjective - Date & Time of Evaluation Date of Evaluation: 09/23/18 Time of Evaluation: 06:10 - Subjective Subjective: PGY-1 Medicine Progress Note for Dr. Quinones Patient was seen and examined today at bedside in no acute distress. Nurse reports no overnight events. Patient has no new complaints. He has not had diarrhea yet today nor bleeding from any site. Denies headache, chest pain, shortness of breath, abdominal pain, n/v/c/d. Objective - Vital Signs/Intake and Output Vital Signs (last 24 hours): Temp Pulse Resp BP Pulse Ox 98.1 F 69 20 126/78 98 09/23/18 04:06 09/23/18 04:06 09/23/18 04:06 09/23/18 04:06 09/23/18 04:06 - Medications Medications: Current Medications Amlodipine Besylate (Norvasc) 10 mg PO DAILY [facility] Last Admin: 09/22/18 09:42 Dose: 10 mg Calcium Acetate (Phoslo) 667 mg PO TID [facility] Last Admin: 09/22/18 17:50 Dose: 667 mg Carvedilol (Coreg) 6.25 mg PO BID [facility] Last Admin: 09/22/18 17:47 Dose: 6.25 mg Clonidine HCl (Catapres) 0.2 mg PO TID [facility] Last Admin: 09/22/18 17:47 Dose: 0.2 mg Epoetin Rod (Procrit) 10,000 unit IV MWF [facility] Last Admin: 09/22/18 17:26 Dose: 10,000 unit Hydralazine HCl (Apresoline) 25 mg PO Q8 [facility] Last Admin: 09/22/18 21:23 Dose: 25 mg - Labs Labs: 09/22/18 14:22 09/22/18 14:22 PT 14.6 SECONDS (9.7-12.2) H 09/11/18 00:36 INR 1.3 09/11/18 00:36 APTT 35 SECONDS (21-34) H 09/11/18 00:36 - Constitutional Appears: Non-toxic, No Acute Distress - Head Exam Head Exam: ATRAUMATIC, NORMOCEPHALIC - Eye Exam Eye Exam: EOMI Pupil Exam: NORMAL ACCOMODATION - ENT Exam ENT Exam: Mucous Membranes Dry Additional comments: bilateral hearing aids - Respiratory Exam Respiratory Exam: Clear to Ausculation Bilateral, NORMAL BREATHING PATTERN. absent: Rales, Rhonchi, Wheezes - Cardiovascular Exam Cardiovascular Exam: REGULAR RHYTHM, +S1, +S2 - GI/Abdominal Exam GI & Abdominal Exam: Soft, Normal Bowel Sounds. absent: Tenderness - Extremities Exam Extremities Exam: Normal Capillary Refill. 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 His symptoms have resolved. He is now awaiting placement for outpatient HD. 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 However, cannot r/o Alport's syndrome - has not been compliant with eculizumab for last 4 months - Hgb 8.2 on admission - Type and cross -> transfused 2u PRBC 09/11 -> Hgb 6.5 - Hgb 5.7 on 09/13 -> transfused 2u PRBC with HD -> Hgb 8.0 - Heme consulted: Dr. Benites - help appreciated - Trend with AM labs - continue to transfuse prn with HD - Plan to do labs on MWF with dialysis Severe Thrombocytopenia - likely 2/2 atypical HUS - has not been compliant with eculizumab for last 4 months - Plts 6 on admission - DDAVP 20mcg and Solumedrol 125mg given prior to 2u platelet transfusion 09/11 - Plts 5 -> another 2u Plts transfused 09/12 -> Plts 37 - Plts 13 on 09/18/18: Given leukocytosis, case discussed with Dr. Benites who requested manual platelet count. Recommended 1 unit of platelet transfusion if manual platelet count is less than 20. Manual platelet ct 25. No need to transfuse at this time as per Dr. Benites. - cont Solumedrol 60mg IV q12, Solumedrol 60mg once 09/21/18, discontinue 09/22/18 - Heme consulted: Dr. Benites - help appreciated - Trend with AM labs - continue to transfuse prn - monitor for bleeding - Plan to do labs on MWF with dialysis Leukocytosis - White count elevated 31.1, continue to monitor, to see if leukocytosis is secondary to recent steroid use - Blood Cx from port (09/12): neg x5 days - blood Cx 09/18 neg x48 hours - UA 3+ protein, 2+ glucose - urine cultures 09/18 negative - stool culture, and stool studies including O&P, C diff negative - 09/20/18: Case discussed with Dr. Benites who agreed with plan to taper off Solumedrol since it might be causing leukocytosis. Recommended Solumedrol 60mg once tomorrow and then discontinuing on 09/22/18. Patient was treated with Solumedrol 60mg Q12 from 09/16/18 - 09/20/18 Diarrhea, resolved - Elevated white count 31.1 - stool culture negative, - Stool ova and parasite negative - CD negative - Continue to monitor ESRD on HD MWF - BUN/Cr: 72/10.7 on admission - elevated from previous admission of Cr of 7s - has not had dialysis in the last 4 months, still producing urine - Vasc Surgery consulted: Dr. Philomena goodson appreciated Existing R chest Permacath flushed and still functional Blood Cx if concerned for long indwelling infection No surgical intervention at this time as vascular access intact and new access involves high risk with low platelets Signed off 09/11 - Nephro consulted: Dr. Hamilton goodson appreciated Cont on MWF schedule EPO with HD - next HD Mon 09/25 - Trend with MWF labs Code Sepsis - called for elevated WBC and tachycardia, suspected long time indwelling cath infection - CXR (09/11): mild pulmonary venous congestion - repeat CXR (09/12): pending read - no rashes, skin changes, sensitivities noticed on skin, including area surrounding catheter - UA (09/11): 3+ protein - VBG (09/11): pH 7.48, lactate 1.6 - procalcitonin (09/11): 0.85 - Given Zosyn 2.25gm and Vancomycin 1gm IV, Gentamicin 270mg once in ED - blood Cx (09/11): Cornebacterium speices, no guidelines on sensitivities - blood Cx drawn from [facility] (09/12): no growth @ 48hrs - Vancomycin 1gm IVPB daily (started 09/11) --> discontinued - random Vanc (09/12): 24.7 - Vanc trough @ 0030am Jessica 09/14: 18.9 -> hold for one day - Vanc trough @ 0030am on Tu09/19 before 8th dose - Zosyn 2.25gm IVPB q8 (started 09/12) -> discontinued - Trend with MWF labs Hypertension - home Norvasc 10mg po daily - home Coreg 6.25mg po bid - home Clonidine 0.2mg po tid - home hydralazine 25mg po tid - Monitor vitals Possible GI bleed - Hgb 8.2 on admission. Stool occult blood positive in ED - s/p transfusion 2u PRBC (09/11) - to receive another 2u PRBC in dialysis (09/13) - GI consulted: Dr. Elliott - kellee appreciated unlikely upper GI bleed no GI intervention, including endoscopy, indicated at this time rec Pepcid over Protonix if GI ppx indicated signed off 09/11 PPx - DVT: Chemical AC CI d/t severe thrombocytopenia, SCDs - GI: CI d/t severe thrombocytopenia - Diet: Diabetic Soft diet - Labs with MWF dialysis - Palliative Care consulted: Continues to be Full Code without Advanced Directive. Encouraged to attend HD as outpatient although patient is still resistant. - Dispo: Patient has lost previous HD chair. [facility]. Angelica Jacob PGY-1 <Paulette Langley - Last Filed: 09/23/18 14:11> Objective - Vital Signs/Intake and Output Vital Signs (last 24 hours): Temp Pulse Resp BP Pulse Ox 98.1 F 69 20 133/87 98 09/23/18 04:06 09/23/18 04:06 09/23/18 04:06 09/23/18 13:23 09/23/18 04:06 Intake and Output: 09/23/18 09/23/18 06:59 18:59 Intake Total 240 Balance 240 - Medications Medications: Current Medications Amlodipine Besylate (Norvasc) 10 mg PO DAILY [facility] Last Admin: 09/23/18 09:14 Dose: 10 mg Calcium Acetate (Phoslo) 667 mg PO TID [facility] Last Admin: 09/23/18 13:22 Dose: 667 mg Carvedilol (Coreg) 6.25 mg PO BID [facility] Last Admin: 09/23/18 09:14 Dose: 6.25 mg Clonidine HCl (Catapres) 0.2 mg PO TID [facility] Last Admin: 09/23/18 13:22 Dose: 0.2 mg Epoetin Rod (Procrit) 10,000 unit IV MWF [facility] Last Admin: 09/22/18 17:26 Dose: 10,000 unit Hydralazine HCl (Apresoline) 25 mg PO Q8 [facility] Last Admin: 09/23/18 13:22 Dose: 25 mg - Labs Labs: 09/22/18 14:22 09/22/18 14:22 PT 14.6 SECONDS (9.7-12.2) H 09/11/18 00:36 INR 1.3 09/11/18 00:36 APTT 35 SECONDS (21-34) H 09/11/18 00:36 Attending/Attestation - Attestation I have personally seen and examined this patient.: Yes I have fully participated in the care of the patient.: Yes I have reviewed all pertinent clinical information, including history, physical exam and plan: Yes Notes (Text): Seen and examined,patient has no complain,eating good,no fever,no nausea,no diaarhea no abdominal pain,no cough,no sob lungs clear,abd benign,no signs of cellulites continue HD Taper steroid monitor wbc count I agree with the resident's documentation
--- NOTE | 2018-09-23 09:52 | CP.PCM.PN ---
Subjective - Date & Time of Evaluation Date of Evaluation: 09/23/18 Time of Evaluation: 09:50 - Subjective Subjective: pt seen and examined resting comfortably in bed no complaints no SOB had HD yesterday ROS- 10 point ros negative Objective - Vital Signs/Intake and Output Vital Signs (last 24 hours): Temp Pulse Resp BP Pulse Ox 98.1 F 69 20 130/89 98 09/23/18 04:06 09/23/18 04:06 09/23/18 04:06 09/23/18 09:16 09/23/18 04:06 - Medications Medications: Current Medications Amlodipine Besylate (Norvasc) 10 mg PO DAILY [facility] Last Admin: 09/23/18 09:14 Dose: 10 mg Calcium Acetate (Phoslo) 667 mg PO TID [facility] Last Admin: 09/23/18 09:14 Dose: 667 mg Carvedilol (Coreg) 6.25 mg PO BID [facility] Last Admin: 09/23/18 09:14 Dose: 6.25 mg Clonidine HCl (Catapres) 0.2 mg PO TID [facility] Last Admin: 09/23/18 09:14 Dose: 0.2 mg Epoetin Rod (Procrit) 10,000 unit IV MWF [facility] Last Admin: 09/22/18 17:26 Dose: 10,000 unit Hydralazine HCl (Apresoline) 25 mg PO Q8 [facility] Last Admin: 09/23/18 05:39 Dose: 25 mg - Labs Labs: 09/22/18 14:22 09/22/18 14:22 PT 14.6 SECONDS (9.7-12.2) H 09/11/18 00:36 INR 1.3 09/11/18 00:36 APTT 35 SECONDS (21-34) H 09/11/18 00:36 - Constitutional Appears: Well, Non-toxic - Head Exam Head Exam: ATRAUMATIC, NORMOCEPHALIC - Eye Exam Eye Exam: EOMI, PERRL - ENT Exam ENT Exam: Mucous Membranes Moist Additional comments: hearing aid - Neck Exam Neck Exam: Full ROM - Respiratory Exam Respiratory Exam: Clear to Ausculation Bilateral. absent: Rhonchi, Wheezes - Cardiovascular Exam Cardiovascular Exam: REGULAR RHYTHM, +S1, +S2 - GI/Abdominal Exam GI & Abdominal Exam: Soft. absent: Tenderness - Extremities Exam Extremities Exam: Full ROM. absent: Pedal Edema - Neurological Exam Neurological Exam: Alert, Awake, Oriented x3 - Psychiatric Exam Psychiatric exam: Normal Affect, Normal Mood - Skin Skin Exam: Normal Color, Warm Assessment and Plan (1) Anemia Status: Acute (2) Thrombocytopenia Status: Acute (3) Atypical hemolytic uremic syndrome Status: Acute (4) ESRD (end stage renal disease) Status: Acute (5) Hearing loss Status: Acute - Assessment and Plan (Free Text) Plan: HD MWF platelet counts remains low- no bleeding awaiting outpt HD unit placement
--- NOTE | 2018-09-24 01:00 | CP.PCM.PN ---
<Angelica Jacob Y - Last Filed: 09/24/18 00:57> Subjective - Date & Time of Evaluation Date of Evaluation: 09/24/18 Time of Evaluation: 06:20 - Subjective Subjective: PGY-1 Medicine Progress Note for Dr. Langley Patient was seen and examined today at bedside in no acute distress. Nurse reports no overnight events. Patient has no new complaints. He has not had diarrhea yet today nor bleeding from any site. Denies headache, chest pain, shortness of breath, abdominal pain, n/v/c/d. Objective - Vital Signs/Intake and Output Vital Signs (last 24 hours): Temp Pulse Resp BP Pulse Ox 98.2 F 72 20 118/74 97 09/23/18 15:00 09/23/18 15:00 09/23/18 15:00 09/23/18 15:00 09/23/18 15:00 Intake and Output: 09/23/18 09/24/18 18:59 06:59 Intake Total 240 Balance 240 - Medications Medications: Current Medications Amlodipine Besylate (Norvasc) 10 mg PO DAILY [facility] Last Admin: 09/23/18 09:14 Dose: 10 mg Calcium Acetate (Phoslo) 667 mg PO TID [facility] Last Admin: 09/23/18 18:02 Dose: 667 mg Carvedilol (Coreg) 6.25 mg PO BID [facility] Last Admin: 09/23/18 18:02 Dose: 6.25 mg Clonidine HCl (Catapres) 0.2 mg PO TID [facility] Last Admin: 09/23/18 18:02 Dose: 0.2 mg Epoetin Rod (Procrit) 10,000 unit IV MWF [facility] Last Admin: 09/22/18 17:26 Dose: 10,000 unit Hydralazine HCl (Apresoline) 25 mg PO Q8 [facility] Last Admin: 09/23/18 21:13 Dose: 25 mg - Labs Labs: 09/22/18 14:22 09/22/18 14:22 PT 14.6 SECONDS (9.7-12.2) H 09/11/18 00:36 INR 1.3 09/11/18 00:36 APTT 35 SECONDS (21-34) H 09/11/18 00:36 - Constitutional Appears: Non-toxic, No Acute Distress - Head Exam Head Exam: ATRAUMATIC, NORMOCEPHALIC - Eye Exam Eye Exam: EOMI - ENT Exam ENT Exam: Mucous Membranes Moist Additional comments: bilateral hearing aids - Respiratory Exam Respiratory Exam: Clear to Ausculation Bilateral, NORMAL BREATHING PATTERN. absent: Rales, Rhonchi, Wheezes - Cardiovascular Exam Cardiovascular Exam: REGULAR RHYTHM, +S1, +S2 - GI/Abdominal Exam GI & Abdominal Exam: Soft, Normal Bowel Sounds. absent: Tenderness - Extremities Exam Extremities Exam: Normal Capillary Refill. 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 His symptoms have resolved. He is now awaiting placement for outpat ient HD. 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 However, cannot r/o Alport's syndrome - has not been compliant with eculizumab for last 4 months - Hgb 8.2 on admission - Type and cross -> transfused 2u PRBC 09/11 -> Hgb 6.5 - Hgb 5.7 on 09/13 -> transfused 2u PRBC with HD -> Hgb 8.0 - Heme consulted: Dr. Benites - help appreciated - Trend with AM labs - continue to transfuse prn with HD - Plan to do labs on MWF with dialysis Severe Thrombocytopenia - likely 2/2 atypical HUS - has not been compliant with eculizumab for last 4 months - Plts 6 on admission - DDAVP 20mcg and Solumedrol 125mg given prior to 2u platelet transfusion 09/11 - Plts 5 -> another 2u Plts transfused 09/12 -> Plts 37 - Plts 13 on 09/18/18: Given leukocytosis, case discussed with Dr. Benites who requested manual platelet count. Recommended 1 unit of platelet transfusion if manual platelet count is less than 20. Manual platelet ct 25. No need to transfuse at this time as per Dr. Benites. - Solumedrol 60mg IV q12, Solumedrol 60mg once 09/21/18, discontinued 09/22/18. Taper complete - Heme consulted: Dr. Benites - help appreciated - Trend with AM labs - continue to transfuse prn - monitor for bleeding - Plan to do labs on MWF with dialysis Leukocytosis - White count elevated 31.1, continue to monitor, to see if leukocytosis is seco ndary to recent steroid use - Blood Cx from port (09/12): neg x5 days - blood Cx (09/18): neg x5 days - UA 3+ protein, 2+ glucose - urine cultures 09/18 negative - stool culture, and stool studies including O&P, C diff negative - 09/20/18: Case discussed with Dr. Benites who agreed with plan to taper off Solumedrol since it might be causing leukocytosis. Recommended Solumedrol 60mg once tomorrow and then discontinuing on 09/22/18. Patient was treated with Solumedrol 60mg Q12 from 09/16/18 - 09/20/18 Diarrhea, resolved - Elevated white count 31.1 - stool culture negative, - Stool ova and parasite negative - CD negative - Continue to monitor ESRD on HD MWF - BUN/Cr: 72/10.7 on admission - elevated from previous admission of Cr of 7s - has not had dialysis in the last 4 months, still producing urine - Vasc Surgery consulted: Dr. Philomena goodson appreciated Existing R chest Permacath flushed and still functional Blood Cx if concerned for long indwelling infection No surgical intervention at this time as vascular access intact and new access involves high risk with low platelets Signed off 09/11 - Nephro consulted: Dr. Hamilton goodson appreciated Cont on MWF schedule EPO with HD - next HD Mon 09/25 - Trend with MWF labs Code Sepsis - called for elevated WBC and tachycardia, suspected long time indwelling cath infection - CXR (09/11): mild pulmonary venous congestion - repeat CXR (09/12): pending read - no rashes, skin changes, sensitivities noticed on skin, including area surrounding catheter - UA (09/11): 3+ protein - VBG (09/11): pH 7.48, lactate 1.6 - procalcitonin (09/11): 0.85 - Given Zosyn 2.25gm and Vancomycin 1gm IV, Gentamicin 270mg once in ED - blood Cx (09/11): Radha lester, no guidelines on sensitivities - blood Cx drawn from [facility] (09/12): no growth @ 48hrs - Vancomycin 1gm IVPB daily (started 09/11) --> discontinued - random Vanc (09/12): 24.7 - Vanc trough @ 0030am Jessica 09/14: 18.9 -> hold for one day - Vanc trough @ 0030am on 09/19 before 8th dose - Zosyn 2.25gm IVPB q8 (started 09/12) -> discontinued - Trend with MWF labs Hypertension - home Norvasc 10mg po daily - home Coreg 6.25mg po bid - home Clonidine 0.2mg po tid - home hydralazine 25mg po tid - Monitor vitals Possible GI bleed - Hgb 8.2 on admission. Stool occult blood positive in ED - s/p transfusion 2u PRBC (09/11) - to receive another 2u PRBC in dialysis (09/13) - GI consulted: Dr. Elliott - recarmin appreciated unlikely upper GI bleed no GI intervention, including endoscopy, indicated at this time rec Pepcid over Protonix if GI ppx indicated signed off 09/11 PPx - DVT: Chemical AC CI d/t severe thrombocytopenia, SCDs - GI: CI d/t severe thrombocytopenia - Diet: Diabetic Soft diet - Labs with MWF dialysis - Palliative Care consulted: Continues to be Full Code without Advanced Directive. Encouraged to attend HD as outpatient although patient is still resistant. - Dispo: Patient has lost previous HD chair. CM has begun looking for an outpatient HD center who will accept him with [facility]. <Paulette Langley - Last Filed: 09/24/18 13:57> Objective - Vital Signs/Intake and Output Vital Signs (last 24 hours): Temp Pulse Resp BP Pulse Ox 98.3 F 66 18 122/76 98 09/24/18 07:00 09/24/18 07:00 09/24/18 07:00 09/24/18 07:00 09/24/18 07:00 Intake and Output: 09/24/18 09/24/18 06:59 18:59 Intake Total 480 Balance 480 - Medications Medications: Current Medications Amlodipine Besylate (Norvasc) 10 mg PO DAILY [facility] Last Admin: 09/24/18 09:41 Dose: 10 mg Calcium Acetate (Phoslo) 667 mg PO TID [facility] Last Admin: 09/24/18 13:49 Dose: 667 mg Carvedilol (Coreg) 6.25 mg PO BID [facility] Last Admin: 09/24/18 09:39 Dose: 6.25 mg Clonidine HCl (Catapres) 0.2 mg PO TID [facility] Last Admin: 09/24/18 13:49 Dose: Not Given Epoetin Rod (Procrit) 10,000 unit IV MWF [facility] Last Admin: 09/22/18 17:26 Dose: 10,000 unit Hydralazine HCl (Apresoline) 25 mg PO Q8 [facility] Last Admin: 09/24/18 13:49 Dose: Not Given - Labs Labs: 09/22/18 14:22 09/22/18 14:22 PT 14.6 SECONDS (9.7-12.2) H 09/11/18 00:36 INR 1.3 09/11/18 00:36 APTT 35 SECONDS (21-34) H 09/11/18 00:36 Attending/Attestation - Attestation I have personally seen and examined this patient.: Yes I have fully participated in the care of the patient.: Yes I have reviewed all pertinent clinical information, including history, physical exam and plan: Yes Notes (Text): seen and examined,no nausea,no vomign,no diarrhea,no abdominal pain follow CBC completed steroid,check wb off steroid I agree with the resident's documentation
--- NOTE | 2018-09-25 07:20 | CP.PCM.PN ---
<Consuelo Santiago - Last Filed: 09/25/18 17:58> Subjective - Date & Time of Evaluation Date of Evaluation: 09/25/18 Time of Evaluation: 07:20 - Subjective Subjective: Progress Note for Hospitalist service Patient seen and examined at bedside. He states that he has some pain in his right groin, at the site of inguinal hernia. He denies fevers, chills, headache, lightheadedness, chest pain, shortness of breath, difficulty swallowing, pain with swallowing, abdominal pain, nausea, vomiting, diarrhea, bleeding, leg swel ling or leg pain. Objective - Vital Signs/Intake and Output Vital Signs (last 24 hours): Temp Pulse Resp BP Pulse Ox 98.2 F 80 20 129/84 97 09/24/18 23:05 09/24/18 23:05 09/24/18 23:05 09/25/18 04:19 09/24/18 23:05 - Medications Medications: Current Medications Amlodipine Besylate (Norvasc) 10 mg PO DAILY [facility] Last Admin: 09/24/18 09:41 Dose: 10 mg Calcium Acetate (Phoslo) 667 mg PO TID [facility] Last Admin: 09/24/18 17:37 Dose: 667 mg Carvedilol (Coreg) 6.25 mg PO BID [facility] Last Admin: 09/24/18 17:36 Dose: 6.25 mg Clonidine HCl (Catapres) 0.2 mg PO TID [facility] Last Admin: 09/24/18 17:37 Dose: 0.2 mg Epoetin Rod (Procrit) 10,000 unit IV MWF [facility] Last Admin: 09/22/18 17:26 Dose: 10,000 unit Hydralazine HCl (Apresoline) 25 mg PO Q8 [facility] Last Admin: 09/25/18 05:20 Dose: 25 mg - Labs Labs: 09/22/18 14:22 09/22/18 14:22 PT 14.6 SECONDS (9.7-12.2) H 09/11/18 00:36 INR 1.3 09/11/18 00:36 APTT 35 SECONDS (21-34) H 09/11/18 00:36 - Constitutional Appears: Well, No Acute Distress - Head Exam Head Exam: ATRAUMATIC, NORMOCEPHALIC - Eye Exam Eye Exam: EOMI - ENT Exam ENT Exam: Mucous Membranes Dry Additional comments: Hearing aids - Respiratory Exam Respiratory Exam: Clear to Ausculation Bilateral. absent: Rales, Rhonchi, Wheezes, Respiratory Distress, Stridor Additional comments: right chest wall permacath in place - Cardiovascular Exam Cardiovascular Exam: REGULAR RHYTHM, +S1, +S2. absent: Gallop, Rubs, Murmur - GI/Abdominal Exam GI & Abdominal Exam: Soft, Normal Bowel Sounds. absent: Distended, Guarding, Rigid, Tenderness, Organomegaly - Exam Additional comments: Easily reducible right inguinal hernia present with mild tenderness, no evidence of skin changes overlying hernia. - Extremities Exam Extremities Exam: absent: Calf Tenderness, Pedal Edema - Back Exam Back Exam: absent: CVA tenderness (L), CVA tenderness (R) - Neurological Exam Neurological Exam: Alert, Awake, Oriented x3 - Psychiatric Exam Psychiatric exam: Normal Affect, Normal Mood - Skin Skin Exam: Dry, Intact, Warm Additional comments: Dry skin noted to lower extremities. 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 His symptoms have resolved. He is now awaiting placement for outpatient HD. 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 However, cannot r/o Alport's syndrome - has not been compliant with eculizumab for last 4 months - Hgb 8.2 on admission - Type and cross -> transfused 2u PRBC 09/11 -> Hgb 6.5 - Hgb 5.7 on 09/13 -> transfused 2u PRBC with HD -> Hgb 8.0 - Heme consulted: Dr. Benites - help appreciated - Trend with AM labs - continue to transfuse prn with HD - Plan to do labs on MWF with dialysis Severe Thrombocytopenia - likely 2/2 atypical HUS - has not been compliant with eculizumab for last 4 months - Plts 6 on admission - DDAVP 20mcg and Solumedrol 125mg given prior to 2u platelet transfusion 09/11 - Plts 5 -> another 2u Plts transfused 09/12 -> Plts 37 - 09/18/18: Given leukocytosis, case discussed with Dr. Benites who requested manual platelet count. Recommended 1 unit of platelet transfusion if manual platelet count is less than 20. Manual platelet ct 25. No need to transfuse at this time as per Dr. Benites. Solumedrol 60mg IV q12, Solumedrol 60mg once 09/21/18, discontinued 09/22/18. Taper complete - Heme consulted: Dr. Benites - help appreciated - Trend with AM labs - continue to transfuse prn - monitor for bleeding - Plan to do labs on MWF with dialysis Leukocytosis - White count downtrending 22.3 - Blood Cx from port (09/12): neg x5 days - blood Cx (09/18): neg x5 days - UA 3+ protein, 2+ glucose - urine cultures 09/18 negative - stool culture, and stool studies including O&P, C diff negative - 09/20/18: Case discussed with Dr. Benites who agreed with plan to taper off Solumedrol since it might be causing leukocytosis. Recommended Solumedrol 60mg once tomorrow and then discontinuing on 09/22/18. Patient was treated with Solumedrol 60mg Q12 from 09/16/18 - 09/20/18 - f/u repeat procalcitonin Right inguinal hernia - Easily reducible - Continue to monitor for strangulation Diarrhea, resolved - White count downtrending to 22.3 - stool culture negative, - Stool ova and parasite negative - CD negative - Continue to monitor ESRD on HD MWF - BUN/Cr: 72/10.7 on admission - elevated from previous admission of Cr of 7s - has not had dialysis in the last 4 months, still producing urine - Vasc Surgery consulted: Dr. Philomena goodson appreciated Existing R chest Permacath flushed and still functional Blood Cx if concerned for long indwelling infection No surgical intervention at this time as vascular access intact and new access involves high risk with low platelets Signed off 09/11 - Nephro consulted: Dr. Hamilton goodson appreciated Cont on MWF schedule EPO with HD - Due to HD on 09/27 - Trend with MWF labs - repeat BMP 09/26/18 Code Sepsis - called for elevated WBC and tachycardia, suspected long time indwelling cath infection - CXR (09/11): mild pulmonary venous congestion - repeat CXR (09/12): pending read - no rashes, skin changes, sensitivities noticed on skin, including area surrounding catheter - UA (09/11): 3+ protein - VBG (09/11): pH 7.48, lactate 1.6 - procalcitonin (09/11): 0.85 - Given Zosyn 2.25gm and Vancomycin 1gm IV, Gentamicin 270mg once in ED - blood Cx (09/11): Cornebacterium speices, no guidelines on sensitivities - blood Cx drawn from [facility] (09/12): no growth @ 48hrs - Vancomycin 1gm IVPB daily (started 09/11) --> discontinued - random Vanc (09/12): 24.7 - Vanc trough @ 0030am Jessica 09/14: 18.9 -> hold for one day - Vanc trough @ 0030am on 09/19 before 8th dose - Zosyn 2.25gm IVPB q8 (started 09/12) -> discontinued - Trend with [facility] labs Hypertension - home Norvasc 10mg po daily - home Coreg 6.25mg po bid - home Clonidine 0.2mg po tid - home hydralazine 25mg po tid --> increased to Hydralazine 50mg Q8 (09/25/18) - Monitor vitals Possible GI bleed - Hgb 8.2 on admission. Stool occult blood positive in ED - s/p transfusion 2u PRBC (09/11) - to receive another 2u PRBC in dialysis (09/13) - GI consulted: Dr. Elliott - recs appreciated unlikely upper GI bleed no GI intervention, including endoscopy, indicated at this time rec Pepcid over Protonix if GI ppx indicated signed off 09/11 PPx - DVT: Chemical AC CI d/t severe thrombocytopenia, SCDs - GI: CI d/t severe thrombocytopenia - Diet: Diabetic Soft diet - Labs with [facility] dialysis - Palliative Care consulted: Continues to be Full Code without Advanced Directive. Encouraged to attend HD as outpatient although patient is still resistant. - Dispo: Patient has lost previous HD chair. CM has begun looking for an outpatient HD center who will accept him with [facility]. Case discussed with Dr. Stacie Santiago, PGY1 <Odette Quinones V - Last Filed: 09/28/18 20:37> Objective - Vital Signs/Intake and Output Vital Signs (last 24 hours): Temp Pulse Resp BP Pulse Ox 98.3 F 84 20 134/74 98 09/28/18 15:05 09/28/18 15:05 09/28/18 15:05 09/28/18 15:05 09/28/18 15:05 Intake and Output: 09/28/18 09/29/18 18:59 06:59 Intake Total 300 Balance 300 - Medications Medications: Current Medications Acetaminophen (Tylenol 325mg Tab) 650 mg PO Q6 PRN PRN Reason: Pain, Mild (1-3) Last Admin: 09/28/18 05:02 Dose: 650 mg Amlodipine Besylate (Norvasc) 10 mg PO DAILY [facility] Last Admin: 09/28/18 10:41 Dose: Not Given Calcium Acetate (Phoslo) 667 mg PO TID [facility] Last Admin: 09/28/18 17:53 Dose: 667 mg Carvedilol (Coreg) 6.25 mg PO BID [facility] Last Admin: 09/28/18 17:53 Dose: 6.25 mg Clonidine HCl (Catapres) 0.2 mg PO TID [facility] Last Admin: 09/28/18 17:53 Dose: 0.2 mg Epoetin Rod (Procrit) 10,000 unit IV MWF [facility] Last Admin: 09/27/18 12:25 Dose: 10,000 unit Hydralazine HCl (Apresoline) 25 mg PO BID [facility] Last Admin: 09/28/18 17:53 Dose: 25 mg Lactic Acid (Lac-Hydrin 12% Lotion (225 G)) 0 gm EXT Q6 [facility] Last Admin: 09/28/18 17:54 Dose: 1 applic Vitamin A (Vitamin A & D Oint Ud Foilpak) 1 ea TOP BID [facility] Last Admin: 09/28/18 17:55 Dose: Not Given - Labs Labs: 09/27/18 06:46 09/27/18 06:46 PT 14.6 SECONDS (9.7-12.2) H 09/11/18 00:36 INR 1.3 09/11/18 00:36 APTT 35 SECONDS (21-34) H 09/11/18 00:36 Attending/Attestation - Attestation I have personally seen and examined this patient.: Yes I have fully participated in the care of the patient.: Yes I have reviewed all pertinent clinical information, including history, physical exam and plan: Yes Notes (Text): This is late computer entry for 09/25/18. patient seen, examined, and case discussed with medical stenographer. patient seen during dialysis today. Patient noted pain over right side inguinal hernia area. patient on exam does not have strangulated not incarcerate hernia. it is reducible. Patient is not in excruiating pain. THere is no petechiae nor ecchymoses at bedside. Patient is comfortably receiving dialysis. Patient's white count improving;likely secondary to steroids. patient has noted history for atypical HUS which did not improve with Solar[facility]; he [place] be [place] however he cannot afford the consult visit. Patient's procalcitonin is mildly elevated though it can be falsely elevated given he is also on dialysis we will continue to trend. Patient's blood pressure uncontrolled; we will increase his hydralazine. patient is pending outpatient dialysis placement since he lost his spot given prior noncompliance to his dialysis.
[2018-09-25 08:32] LABS: BASO # 0.1 K/uL (0.0-0.2); BASO % 0.2 % (0.0-2.0); EOS # 0.4 K/uL (0.0-0.7); HEMOGLOBIN 9.6 g/dL (12.0-18.0); LYMPH # 4.8 K/uL (1.0-4.3); LYMPH % 21.7 % (20.0-40.0); MEAN CELL VOLUME 90.6 fL (80.0-94.0); MEAN CORPUSCULAR HEMOGLOBIN 29.3 pg (27.0-31.0); MEAN CORPUSCULAR HGB CONC 32.4 g/dL (33.0-37.0); MONO # 3.1 K/uL (0.0-0.8); MONO % 14.1 % (0.0-10.0); NEUT # 13.8 K/uL (1.8-7.0); NRBC % 0.1 % (0.0-2.0); RBC 3.27 Mil/uL (4.40-5.90); RED CELL DISTRIBUTION WIDTH 21.2 % (11.5-14.5); WHITE BLOOD COUNT 22.3 K/uL (4.8-10.8)
[2018-09-25 09:25] LABS: ALB/GLOB RATIO 1.3 (1.0-2.1); CALCIUM 8.5 mg/dl (8.6-10.4)
--- NOTE | 2018-09-25 09:58 | CP.PCM.PN ---
Subjective - Date & Time of Evaluation Date of Evaluation: 09/25/18 Time of Evaluation: 09:57 - Subjective Subjective: seen and examined in hd no events, doing well leukocytosis noted, stable no f/c/cough/sob/n/v/d Objective - Vital Signs/Intake and Output Vital Signs (last 24 hours): Temp Pulse Resp BP Pulse Ox 98.8 F 83 18 138/85 98 09/25/18 07:00 09/25/18 07:00 09/25/18 07:00 09/25/18 07:00 09/25/18 07:00 - Medications Medications: Current Medications Amlodipine Besylate (Norvasc) 10 mg PO DAILY [facility] Last Admin: 09/24/18 09:41 Dose: 10 mg Calcium Acetate (Phoslo) 667 mg PO TID [facility] Last Admin: 09/24/18 17:37 Dose: 667 mg Carvedilol (Coreg) 6.25 mg PO BID [facility] Last Admin: 09/24/18 17:36 Dose: 6.25 mg Clonidine HCl (Catapres) 0.2 mg PO TID [facility] Last Admin: 09/24/18 17:37 Dose: 0.2 mg Epoetin Rod (Procrit) 10,000 unit IV MWF [facility] Last Admin: 09/22/18 17:26 Dose: 10,000 unit Hydralazine HCl (Apresoline) 25 mg PO Q8 [facility] Last Admin: 09/25/18 05:20 Dose: 25 mg - Labs Labs: 09/25/18 08:12 09/25/18 08:12 PT 14.6 SECONDS (9.7-12.2) H 09/11/18 00:36 INR 1.3 09/11/18 00:36 APTT 35 SECONDS (21-34) H 09/11/18 00:36 - Constitutional Appears: Non-toxic, No Acute Distress, Chronically Ill - Head Exam Head Exam: NORMAL INSPECTION, NORMOCEPHALIC - Eye Exam Eye Exam: Normal appearance, PERRL - ENT Exam ENT Exam: Mucous Membranes Moist, Normal Exam - Neck Exam Neck Exam: Full ROM, Normal Inspection - Respiratory Exam Respiratory Exam: Clear to Ausculation Bilateral, NORMAL BREATHING PATTERN (lt chest permcath) - Cardiovascular Exam Cardiovascular Exam: REGULAR RHYTHM, RRR - GI/Abdominal Exam GI & Abdominal Exam: Distended, Soft - Extremities Exam Extremities Exam: Full ROM, Normal Inspection - Neurological Exam Neurological Exam: Alert, Awake, Oriented x3 - Psychiatric Exam Psychiatric exam: Normal Affect, Normal Mood - Skin Skin Exam: Dry, Intact Assessment and Plan (1) Anemia Status: Acute (2) Atypical hemolytic uremic syndrome Status: Acute (3) ESRD (end stage renal disease) Status: Acute (4) Thrombocytopenia Status: Chronic - Assessment and Plan (Free Text) Assessment: maintain hd mwf outpt placement watch hgb
[2018-09-25] MEDS: Epoetin Alfa 10,000 unit/ml Dialysis IV SCH (11:20)
[2018-09-25] MEDS: Vitamins A & D Oint UD Foilpak TOP SCH ×2 (12:11→18:02)
[2018-09-25] MEDS: Ammonium Lactate 12% Lotion (225 g) EXT SCH ×3 (12:11→21:14)
[2018-09-26] MEDS: Ammonium Lactate 12% Lotion (225 g) EXT SCH ×4 (06:43→17:34)
[2018-09-26 07:07] LABS: BASO % 0.2 % (0.0-2.0); EOS # 0.3 K/uL (0.0-0.7); EOS % 1.9 % (0.0-4.0); HEMOGLOBIN 9.1 g/dL (12.0-18.0); LYMPH # 2.9 K/uL (1.0-4.3); LYMPH % 18.4 % (20.0-40.0); MEAN CELL VOLUME 90.6 fL (80.0-94.0); MEAN CORPUSCULAR HEMOGLOBIN 29.7 pg (27.0-31.0); MEAN CORPUSCULAR HGB CONC 32.8 g/dL (33.0-37.0); MONO # 2.4 K/uL (0.0-0.8); MONO % 14.8 % (0.0-10.0); NEUT # 10.3 K/uL (1.8-7.0); NEUT % 64.7 % (50.0-75.0); RBC 3.07 Mil/uL (4.40-5.90); RED CELL DISTRIBUTION WIDTH 22.3 % (11.5-14.5); WHITE BLOOD COUNT 15.9 K/uL (4.8-10.8)
[2018-09-26 08:13] LABS: CALCIUM 8.1 mg/dl (8.6-10.4)
--- NOTE | 2018-09-26 10:29 | CP.PCM.PN ---
Subjective - Date & Time of Evaluation Date of Evaluation: 09/26/18 Time of Evaluation: 10:27 - Subjective Subjective: seen and examined no events comfortable 10 point ROS negative Objective - Vital Signs/Intake and Output Vital Signs (last 24 hours): Temp Pulse Resp BP Pulse Ox 98.1 F 77 20 127/72 97 09/26/18 07:00 09/26/18 07:00 09/26/18 07:00 09/26/18 07:00 09/26/18 07:00 - Medications Medications: Current Medications Acetaminophen (Tylenol 325mg Tab) 650 mg PO Q6 PRN PRN Reason: Pain, Mild (1-3) Last Admin: 09/25/18 13:13 Dose: 650 mg Amlodipine Besylate (Norvasc) 10 mg PO DAILY [facility] Last Admin: 09/25/18 13:13 Dose: 10 mg Calcium Acetate (Phoslo) 667 mg PO TID [facility] Last Admin: 09/25/18 18:02 Dose: 667 mg Carvedilol (Coreg) 6.25 mg PO BID [facility] Last Admin: 09/25/18 18:02 Dose: 6.25 mg Clonidine HCl (Catapres) 0.2 mg PO TID [facility] Last Admin: 09/25/18 18:02 Dose: 0.2 mg Epoetin Rod (Procrit) 10,000 unit IV MWF [facility] Last Admin: 09/25/18 11:20 Dose: 10,000 unit Hydralazine HCl (Apresoline) 50 mg PO Q8 [facility] Last Admin: 09/26/18 05:22 Dose: 50 mg Lactic Acid (Lac-Hydrin 12% Lotion (225 G)) 0 gm EXT Q6 [facility] Last Admin: 09/26/18 06:43 Dose: Not Given Vitamin A (Vitamin A & D Oint Ud Foilpak) 1 ea TOP BID [facility] Last Admin: 09/25/18 18:02 Dose: 1 ea - Labs Labs: 09/26/18 06:53 09/26/18 06:53 PT 14.6 SECONDS (9.7-12.2) H 09/11/18 00:36 INR 1.3 09/11/18 00:36 APTT 35 SECONDS (21-34) H 09/11/18 00:36 - Constitutional Appears: Non-toxic, No Acute Distress - Head Exam Head Exam: NORMAL INSPECTION, NORMOCEPHALIC - Eye Exam Eye Exam: Normal appearance, PERRL - ENT Exam ENT Exam: Mucous Membranes Moist, Normal Exam - Neck Exam Neck Exam: Full ROM, Normal Inspection - Respiratory Exam Respiratory Exam: Clear to Ausculation Bilateral, NORMAL BREATHING PATTERN - Cardiovascular Exam Cardiovascular Exam: REGULAR RHYTHM, RRR - GI/Abdominal Exam GI & Abdominal Exam: Distended, Soft, Normal Bowel Sounds - Extremities Exam Extremities Exam: Full ROM, Normal Inspection - Neurological Exam Neurological Exam: Alert, Awake, Oriented x3 - Psychiatric Exam Psychiatric exam: Normal Affect, Normal Mood - Skin Skin Exam: Dry, Intact, Warm Assessment and Plan (1) Anemia Status: Acute (2) Atypical hemolytic uremic syndrome Status: Acute (3) ESRD (end stage renal disease) Status: Acute (4) Thrombocytopenia Status: Chronic - Assessment and Plan (Free Text) Assessment: maintain hd mwf bp acceptable hgb stable outpt hd placement
[2018-09-26] MEDS: Vitamins A & D Oint UD Foilpak TOP SCH ×2 (11:20→17:34)
--- NOTE | 2018-09-26 15:22 | CP.PCM.PN ---
<Angelica Jacob - Last Filed: 09/26/18 15:18> Subjective - Date & Time of Evaluation Date of Evaluation: 09/26/18 Time of Evaluation: 07:45 - Subjective Subjective: PGY-1 Medicine Progress Note for Dr. Snyder Patient was seen and examined today at bedside in no acute distress. He reports no bleeding event overnight including, epistaxis Patient went for dialysis yesterday with no acute events over night per nurse. Patient complains of headache and right groin pain at rest, worsening when standing and walking. Patient is able to ambulate with normal bowel and urinary functions. Patient otherwise denies any fever, chills, nausea, vomiting, chest pain, palpitation, shortness of breath, abdominal pain or extremity swelling. Objective - Vital Signs/Intake and Output Vital Signs (last 24 hours): Temp Pulse Resp BP Pulse Ox 98.1 F 77 20 127/72 97 09/26/18 07:00 09/26/18 07:00 09/26/18 07:00 09/26/18 07:00 09/26/18 07:00 - Medications Medications: Current Medications Acetaminophen (Tylenol 325mg Tab) 650 mg PO Q6 PRN PRN Reason: Pain, Mild (1-3) Last Admin: 09/25/18 13:13 Dose: 650 mg Amlodipine Besylate (Norvasc) 10 mg PO DAILY [facility] Last Admin: 09/26/18 11:20 Dose: 10 mg Calcium Acetate (Phoslo) 667 mg PO TID [facility] Last Admin: 09/26/18 13:50 Dose: 667 mg Carvedilol (Coreg) 6.25 mg PO BID [facility] Last Admin: 09/26/18 11:20 Dose: 6.25 mg Clonidine HCl (Catapres) 0.2 mg PO TID [facility] Last Admin: 09/26/18 13:47 Dose: 0.2 mg Epoetin Rod (Procrit) 10,000 unit IV MWF [facility] Last Admin: 09/25/18 11:20 Dose: 10,000 unit Hydralazine HCl (Apresoline) 50 mg PO Q8 [facility] Last Admin: 09/26/18 13:50 Dose: 50 mg Lactic Acid (Lac-Hydrin 12% Lotion (225 G)) 0 gm EXT Q6 [facility] Last Admin: 11/13/18 13:51 Dose: 1 applic Vitamin A (Vitamin A & D Oint Ud Foilpak) 1 ea TOP BID [facility] Last Admin: 09/26/18 11:20 Dose: 1 ea - Labs Labs: 09/26/18 06:53 09/26/18 06:53 PT 14.6 SECONDS (9.7-12.2) H 09/11/18 00:36 INR 1.3 09/11/18 00:36 APTT 35 SECONDS (21-34) H 09/11/18 00:36 - Constitutional Appears: Well, No Acute Distress - Head Exam Head Exam: ATRAUMATIC, NORMOCEPHALIC - Eye Exam Eye Exam: EOMI, PERRL - ENT Exam Additional comments: bilateral hearing aids - Respiratory Exam Respiratory Exam: Clear to Ausculation Bilateral. absent: Accessory Muscle Use, Rales, Rhonchi, Wheezes - Cardiovascular Exam Cardiovascular Exam: REGULAR RHYTHM, +S1, +S2. absent: Murmur - GI/Abdominal Exam GI & Abdominal Exam: Soft, Hernia, Normal Bowel Sounds. absent: Distended, Tenderness - Exam Additional comments: reducible squishy mass into R inguinal canal, tender upon deep palpation - Extremities Exam Extremities Exam: Normal Inspection. 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 His symptoms have resolved. He is now awaiting placement for outpatient HD. 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 However, cannot r/o Alport's syndrome - has not been compliant with eculizumab for last 4 months - Hgb 8.2 on admission - Type and cross -> transfused 2u PRBC 09/11 -> Hgb 6.5 - Hgb 5.7 on 09/13 -> transfused 2u PRBC with HD -> Hgb 8.0 - Heme consulted: Dr. Benites - help appreciated - Trend with AM labs - continue to transfuse prn with HD - Plan to do labs on MWF with dialysis Severe Thrombocytopenia - likely 2/2 atypical HUS - has not been compliant with eculizumab for last 4 months - Plts 6 on admission - DDAVP 20mcg and Solumedrol 125mg given prior to 2u platelet transfusion 09/11 - Plts 5 -> another 2u Plts transfused 09/12 -> Plts 37 - 09/18/18: Given leukocytosis, case discussed with Dr. Benites who requested manual platelet count. Recommended 1 unit of platelet transfusion if manual platelet count is less than 20. Manual platelet ct 25. No need to transfuse at this time as per Dr. Benites. Solumedrol 60mg IV q12, Solumedrol 60mg once 09/21/18, discontinued 09/22/18. Taper complete - Heme consulted: Dr. Kamari falk appreciated - Trend with AM labs - continue to transfuse prn - monitor for bleeding - Plan to do labs on MWF with dialysis Leukocytosis - White count downtrending 15.9 - Blood Cx from port (09/12): neg x5 days - blood Cx (09/18): neg x5 days - UA 3+ protein, 2+ glucose - urine cultures 09/18 negative - stool culture, and stool studies including O&P, C diff negative - 09/20/18: Case discussed with Dr. Benites who agreed with plan to taper off Solumedrol since it might be causing leukocytosis. Recommended Solumedrol 60mg once tomorrow and then discontinuing on 09/22/18. Patient was treated with Solumedrol 60mg Q12 from 09/16/18 - 09/20/18 - repeat procalcitonin (09/26) 0.60 Right inguinal hernia - Easily reducible - CT Pelvis (09/26): pending read - Continue to monitor for strangulation -> will consider surgery then Diarrhea, resolved - White count downtrending to 22.3 - stool culture negative, - Stool ova and parasite negative - CD negative - Continue to monitor ESRD on HD MWF - BUN/Cr: 72/10.7 on admission - elevated from previous admission of Cr of 7s - has not had dialysis in the last 4 months, still producing urine - Vasc Surgery consulted: Dr. Philomena goodson appreciated Existing R chest Permacath flushed and still functional Blood Cx if concerned for long indwelling infection No surgical intervention at this time as vascular access intact and new access involves high risk with low platelets Signed off 09/11 - Nephro consulted: Dr. Hamilton goodson appreciated Cont on MWF schedule EPO with HD - Due to HD on 09/27 - Trend with MWF labs - repeat BMP 09/26/18 Code Sepsis - called for elevated WBC and tachycardia, suspected long time indwelling cath infection - CXR (09/11): mild pulmonary venous congestion - repeat CXR (09/12): pending read - no rashes, skin changes, sensitivities noticed on skin, including area surrounding catheter - UA (09/11): 3+ protein - VBG (09/11): pH 7.48, lactate 1.6 - procalcitonin (09/11): 0.85 - Given Zosyn 2.25gm and Vancomycin 1gm IV, Gentamicin 270mg once in ED - blood Cx (09/11): Cornebacterium speices, no guidelines on sensitivities - blood Cx drawn from Permacath (09/12): no growth @ 48hrs - Vancomycin 1gm IVPB daily (started 09/11) --> discontinued - random Vanc (09/12): 24.7 - Vanc trough @ 0030am Jessica 09/14: 18.9 -> hold for one day - Vanc trough @ 0030am on Tue 09/19 before 8th dose - Zosyn 2.25gm IVPB q8 (started 09/12) -> discontinued - Trend with MWF labs Hypertension - home Norvasc 10mg po daily - home Coreg 6.25mg po bid - home Clonidine 0.2mg po tid - home hydralazine 25mg po tid --> increased to Hydralazine 50mg Q8 (09/25/18) - Monitor vitals Possible GI bleed - Hgb 8.2 on admission. Stool occult blood positive in ED - s/p transfusion 2u PRBC (09/11) - to receive another 2u PRBC in dialysis (09/13) - GI consulted: Dr. Earl goodson appreciated unlikely upper GI bleed no GI intervention, including endoscopy, indicated at this time rec Pepcid over Protonix if GI ppx indicated signed off 09/11 PPx - DVT: Chemical AC CI d/t severe thrombocytopenia, SCDs - GI: CI d/t severe thrombocytopenia - Diet: Diabetic Soft diet - Labs with MWF dialysis - Palliative Care consulted: Continues to be Full Code without Advanced Directive. Encouraged to attend HD as outpatient although patient is still resistant. - Dispo: Patient has lost previous HD chair. CM has begun looking for an outpatient HD center who will accept him with [facility]. d/w Dr. Lillian Jacob PGY-1 <Romeo Snyder - Last Filed: 09/27/18 07:08> Objective - Vital Signs/Intake and Output Vital Signs (last 24 hours): Temp Pulse Resp BP Pulse Ox 97.9 F 85 20 143/83 97 09/26/18 23:05 09/27/18 05:17 09/26/18 23:05 09/27/18 05:17 09/26/18 23:05 Intake and Output: 09/27/18 09/27/18 06:59 18:59 Intake Total 120 Balance 120 - Medications Medications: Current Medications Acetaminophen (Tylenol 325mg Tab) 650 mg PO Q6 PRN PRN Reason: Pain, Mild (1-3) Last Admin: 09/25/18 13:13 Dose: 650 mg Amlodipine Besylate (Norvasc) 10 mg PO DAILY [facility] Last Admin: 09/26/18 11:20 Dose: 10 mg Calcium Acetate (Phoslo) 667 mg PO TID [facility] Last Admin: 09/26/18 17:34 Dose: 667 mg Carvedilol (Coreg) 6.25 mg PO BID [facility] Last Admin: 09/26/18 17:33 Dose: Not Given Clonidine HCl (Catapres) 0.2 mg PO TID [facility] Last Admin: 09/26/18 17:33 Dose: Not Given Epoetin Rod (Procrit) 10,000 unit IV MWF [facility] Last Admin: 09/25/18 11:20 Dose: 10,000 unit Hydralazine HCl (Apresoline) 50 mg PO Q8 [facility] Last Admin: 09/27/18 05:18 Dose: 50 mg Lactic Acid (Lac-Hydrin 12% Lotion (225 G)) 0 gm EXT Q6 [facility] Last Admin: 09/27/18 05:18 Dose: 1 applic Vitamin A (Vitamin A & D Oint Ud Foilpak) 1 ea TOP BID [facility] Last Admin: 09/26/18 17:34 Dose: 1 ea - Labs Labs: 09/26/18 06:53 09/26/18 06:53 PT 14.6 SECONDS (9.7-12.2) H 09/11/18 00:36 INR 1.3 09/11/18 00:36 APTT 35 SECONDS (21-34) H 09/11/18 00:36 Attending/Attestation - Attestation I have personally seen and examined this patient.: Yes I have fully participated in the care of the patient.: Yes I have reviewed all pertinent clinical information, including history, physical exam and plan: Yes Notes (Text): 09/27/18 07:07 Medical attending: Patient was seen and examined by me. Agree with the above note by the resident Patient was awake and alert - he was not in any acute distress when I came and saw him. Lab work shows Hgb is stable for the time being - however the ongoing low platelet count as before He is now off of the solumedrol Romeo Snyder
--- NOTE | 2018-09-26 15:28 | CT ---
Date of service: 09/26/2018 PROCEDURE: CT Pelvis without contrast HISTORY: inguinal hernia, new COMPARISON: None available. TECHNIQUE: Contiguous axial images of the pelvis . No intravenous or oral contrast given. Coronal and sagittal reformats generated. Radiation dose: Total exam DLP = 289.47 mGy-cm. This CT exam was performed using one or more of the following dose reduction techniques: Automated exposure control, adjustment of the mA and/or kV according to patient size, and/or use of iterative reconstruction technique. FINDINGS: BLADDER: Unremarkable. REPRODUCTIVE ORGANS: Prostate gland appears unremarkable. VISUALIZED BOWEL: Visualized bowel loops appear within normal limits of caliber. Partially imaged moderate constipation. The appendix appears within normal limits of caliber. PERITONEUM: Moderate lower abdominal/pelvic free fluid. No definite free air. LYMPH NODES: No bulky adenopathy identified. BONES: No acute osseous abnormality is detected. VASCULATURE: No aortic atherosclerotic calcification present. OTHER FINDINGS: Fluid and fat containing right inguinal hernia. Small fat containing left inguinal hernia. IMPRESSION: Moderate lower abdominal/pelvic free fluid. Fluid and fat containing right inguinal hernia. Small fat containing left inguinal hernia. Partially imaged moderate constipation.
[2018-09-27] MEDS: Ammonium Lactate 12% Lotion (225 g) EXT SCH ×4 (05:18→17:27)
[2018-09-27 07:17] LABS: HEMOGLOBIN 9.2 g/dL (12.0-18.0); RBC 3.06 Mil/uL (4.40-5.90)
[2018-09-27 07:20] LABS: ALB/GLOB RATIO 1.4 (1.0-2.1); ALBUMIN 2.8 g/dL (3.5-5.0); CALCIUM 7.7 mg/dl (8.6-10.4)
[2018-09-27 07:34] LABS: MEAN CELL VOLUME 90.5 fL (80.0-94.0); MEAN CORPUSCULAR HEMOGLOBIN 30.1 pg (27.0-31.0); MEAN CORPUSCULAR HGB CONC 33.3 g/dL (33.0-37.0); RED CELL DISTRIBUTION WIDTH 21.9 % (11.5-14.5); WHITE BLOOD COUNT 17.7 K/uL (4.8-10.8)
[2018-09-27 07:37] LABS: BASO % 0.3 % (0.0-2.0); EOS # 0.3 K/uL (0.0-0.7); EOS % 1.8 % (0.0-4.0); LYMPH # 4.6 K/uL (1.0-4.3); LYMPH % 25.8 % (20.0-40.0); MEAN PLATELET VOLUME 10.8 fL (7.2-11.7); MONO # 2.3 K/uL (0.0-0.8); MONO % 13.1 % (0.0-10.0); NEUT # 10.5 K/uL (1.8-7.0)
--- NOTE | 2018-09-27 09:35 | CP.PCM.PN ---
<Consuelo Santiago - Last Filed: 09/27/18 17:21> Subjective - Date & Time of Evaluation Date of Evaluation: 09/27/18 Time of Evaluation: 09:35 - Subjective Subjective: Progress note for Hospitalist service Patient seen and examined at bedside. He offers no complaints at this time. He denies fevers, chills, nausea, vomiting, chest pain, shortness of breath, palpitations, cough, dizziness, lightheadedness, abdominal pain, nausea, vomiting, diarrhea, constipation, bleeding, leg pain. He is due for dialysis today. He is able to ambulate. He would like to shower if possible. Objective - Vital Signs/Intake and Output Vital Signs (last 24 hours): Temp Pulse Resp BP Pulse Ox 98.5 F 88 20 135/79 98 09/27/18 07:00 09/27/18 07:00 09/27/18 07:00 09/27/18 07:00 09/27/18 07:00 Intake and Output: 09/27/18 09/27/18 06:59 18:59 Intake Total 120 Balance 120 - Medications Medications: Current Medications Acetaminophen (Tylenol 325mg Tab) 650 mg PO Q6 PRN PRN Reason: Pain, Mild (1-3) Last Admin: 09/25/18 13:13 Dose: 650 mg Amlodipine Besylate (Norvasc) 10 mg PO DAILY [facility] Last Admin: 09/26/18 11:20 Dose: 10 mg Calcium Acetate (Phoslo) 667 mg PO TID [facility] Last Admin: 09/26/18 17:34 Dose: 667 mg Carvedilol (Coreg) 6.25 mg PO BID [facility] Last Admin: 09/26/18 17:33 Dose: Not Given Clonidine HCl (Catapres) 0.2 mg PO TID [facility] Last Admin: 09/26/18 17:33 Dose: Not Given Epoetin Rod (Procrit) 10,000 unit IV MWF [facility] Last Admin: 09/25/18 11:20 Dose: 10,000 unit Hydralazine HCl (Apresoline) 50 mg PO Q8 [facility] Last Admin: 09/27/18 05:18 Dose: 50 mg Lactic Acid (Lac-Hydrin 12% Lotion (225 G)) 0 gm EXT Q6 [facility] Last Admin: 09/27/18 05:18 Dose: 1 applic Vitamin A (Vitamin A & D Oint Ud Foilpak) 1 ea TOP BID [facility] Last Admin: 09/26/18 17:34 Dose: 1 ea - Labs Labs: 09/27/18 06:46 09/27/18 06:46 PT 14.6 SECONDS (9.7-12.2) H 09/11/18 00:36 INR 1.3 09/11/18 00:36 APTT 35 SECONDS (21-34) H 09/11/18 00:36 - Constitutional Appears: Well, No Acute Distress - Head Exam Head Exam: ATRAUMATIC, NORMOCEPHALIC - Eye Exam Eye Exam: EOMI - ENT Exam ENT Exam: Mucous Membranes Moist Additional comments: bilateral hearing aids in place - Neck Exam Neck Exam: Full ROM. absent: Tenderness - Respiratory Exam Respiratory Exam: Clear to Ausculation Bilateral. absent: Rales, Rhonchi, Wheezes, Respiratory Distress, Stridor Additional comments: Right permacath - Cardiovascular Exam Cardiovascular Exam: REGULAR RHYTHM, +S1, +S2. absent: Gallop, Rubs, Murmur - GI/Abdominal Exam GI & Abdominal Exam: Soft, Normal Bowel Sounds. absent: Distended, Firm, Guarding, Rigid, Tenderness, Organomegaly - Exam Additional comments: reducible mass into right inguinal canal, tender upon deep palpation - Extremities Exam Extremities Exam: absent: Calf Tenderness, Pedal Edema - Neurological Exam Neurological Exam: Alert, Awake, Oriented x3 - Psychiatric Exam Psychiatric exam: Normal Affect, Normal Mood - Skin Skin Exam: Dry, Intact, Warm Assessment and Plan - Assessment and Plan (Free Text) Plan: Assessment: 32 year old male with history of ESRD (previously on PD and HD but patient decided to stop all therapy about 4 months ago), hypertension, 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 His symptoms have resolved. He is now awaiting placement for outpatient HD. 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 However, cannot r/o Alport's syndrome - has not been compliant with eculizumab for last 4 months - Hgb 8.2 on admission - Type and cross -> transfused 2u PRBC 09/11 -> Hgb 6.5 - Hgb 5.7 on 09/13 -> transfused 2u PRBC with HD -> Hgb 8.0 - Heme consulted: Dr. Benites - help appreciated - Trend with AM labs - continue to transfuse prn with HD - Plan to do labs on MWF with dialysis Severe Thrombocytopenia - likely 2/2 atypical HUS - has not been compliant with eculizumab for last 4 months - Plts 6 on admission - DDAVP 20mcg and Solumedrol 125mg given prior to 2u platelet transfusion 09/11 - Plts 5 -> another 2u Plts transfused 09/12 -> Plts 37 - 09/18/18: Given leukocytosis, case discussed with Dr. Benites who requested manual platelet count. Recommended 1 unit of platelet transfusion if manual platelet count is less than 20. Solumedrol 60mg IV q12, Solumedrol 60mg once 09/21/18, discontinued 09/22/18. Taper complete - Manual platelet count 36 today - Heme consulted: Dr. Benites - help appreciated - Trend with AM labs - continue to transfuse prn - monitor for bleeding - Plan to do labs on MWF with dialysis Leukocytosis - White count 17.7 - Blood Cx from port (09/12): neg x5 days - blood Cx (09/18): neg x5 days - UA 3+ protein, 2+ glucose - urine cultures 09/18 negative - stool culture, and stool studies including O&P, C diff negative - 09/20/18: Case discussed with Dr. Benites who agreed with plan to taper off Solumedrol since it might be causing leukocytosis. Recommended Solumedrol 60mg once tomorrow and then discontinuing on 09/22/18. Patient was treated with Solumedrol 60mg Q12 from 09/16/18 - 09/20/18 - repeat procalcitonin (09/26) 0.60 Right inguinal hernia - Easily reducible - CT Pelvis (09/26): Moderate lower abdominal/pelvic free fluid. Fluid and fat containing right inguinal hernia. Small fat containing left inguinal hernia. Partially imaged moderate constipation. - Continue to monitor for strangulation -> will consider surgery then Diarrhea, resolved - White count 17.7 - stool culture negative, - Stool ova and parasite negative - CD negative - Continue to monitor ESRD on HD MWF - BUN/Cr: 72/10.7 on admission - elevated from previous admission of Cr of 7s - has not had dialysis in the last 4 months, still producing urine - Vasc Surgery consulted: Dr. Philomena goodson appreciated Existing R chest Permacath flushed and still functional Blood Cx if concerned for long indwelling infection No surgical intervention at this time as vascular access intact and new acc ess involves high risk with low platelets Signed off 09/11 - Nephro consulted: Dr. Hamilton goodson appreciated Cont on MWF schedule EPO with HD - Due for HD today - Trend with MWF labs Code Sepsis - called for elevated WBC and tachycardia, suspected long time indwelling cath infection - CXR (09/11): mild pulmonary venous congestion - repeat CXR (09/12): pending read - no rashes, skin changes, sensitivities noticed on skin, including area surrounding catheter - UA (09/11): 3+ protein - VBG (09/11): pH 7.48, lactate 1.6 - procalcitonin (09/11): 0.85 - Given Zosyn 2.25gm and Vancomycin 1gm IV, Gentamicin 270mg once in ED - blood Cx (09/11): Cornebacterium speices, no guidelines on sensitivities - blood Cx drawn from Permacath (09/12): no growth @ 48hrs - Vancomycin 1gm IVPB daily (started 09/11) --> discontinued - random Vanc (09/12): 24.7 - Vanc trough @ 0030am Jessica 09/14: 18.9 -> hold for one day - Vanc trough @ 0030am on 09/19 before 8th dose - Zosyn 2.25gm IVPB q8 (started 09/12) -> discontinued - Trend with MWF labs Hypertension - home Norvasc 10mg po daily - home Coreg 6.25mg po bid - home Clonidine 0.2mg po tid - home hydralazine 25mg po tid --> increased to Hydralazine 50mg Q8 (09/25/18) - Monitor vitals Possible GI bleed - Hgb 8.2 on admission. Stool occult blood positive in ED - s/p transfusion 2u PRBC (09/11) - to receive another 2u PRBC in dialysis (09/13) - GI consulted: Dr. Elliott - recs appreciated unlikely upper GI bleed no GI intervention, including endoscopy, indicated at this time rec Pepcid over Protonix if GI ppx indicated signed off 09/11 PPx - DVT: Chemical AC CI d/t severe thrombocytopenia, SCDs - GI: CI d/t severe thrombocytopenia - Diet: Diabetic Soft diet - Labs with MWF dialysis - Palliative Care consulted: Continues to be Full Code without Advanced Directive. Encouraged to attend HD as outpatient although patient is still resistant. - Dispo: Patient has lost previous HD chair. CM has begun looking for an outpatient HD center who will accept him with [facility]. Case discussed with Dr. Lillian Santiago, PGY1 <Romeo Snyder H - Last Filed: 09/27/18 18:25> Objective - Vital Signs/Intake and Output Vital Signs (last 24 hours): Temp Pulse Resp BP Pulse Ox 99.0 F 85 20 157/87 H 99 09/27/18 15:00 09/27/18 15:00 09/27/18 15:00 09/27/18 15:00 09/27/18 15:00 Intake and Output: 09/27/18 09/27/18 06:59 18:59 Intake Total 120 Balance 120 - Medications Medications: Current Medications Acetaminophen (Tylenol 325mg Tab) 650 mg PO Q6 PRN PRN Reason: Pain, Mild (1-3) Last Admin: 09/27/18 14:21 Dose: 650 mg Amlodipine Besylate (Norvasc) 10 mg PO DAILY [facility] Last Admin: 09/27/18 11:09 Dose: Not Given Calcium Acetate (Phoslo) 667 mg PO TID [facility] Last Admin: 09/27/18 17:26 Dose: 667 mg Carvedilol (Coreg) 6.25 mg PO BID [facility] Last Admin: 09/27/18 17:26 Dose: 6.25 mg Clonidine HCl (Catapres) 0.2 mg PO TID [facility] Last Admin: 09/27/18 17:26 Dose: 0.2 mg Epoetin Rod (Procrit) 10,000 unit IV MWF [facility] Last Admin: 09/27/18 12:25 Dose: 10,000 unit Hydralazine HCl (Apresoline) 50 mg PO Q8 [facility] Last Admin: 09/27/18 14:21 Dose: 50 mg Lactic Acid (Lac-Hydrin 12% Lotion (225 G)) 0 gm EXT Q6 [facility] Last Admin: 09/27/18 17:27 Dose: 1 applic Vitamin A (Vitamin A & D Oint Ud Foilpak) 1 ea TOP BID [facility] Last Admin: 09/27/18 17:28 Dose: Not Given - Labs Labs: 09/27/18 06:46 09/27/18 06:46 PT 14.6 SECONDS (9.7-12.2) H 09/11/18 00:36 INR 1.3 09/11/18 00:36 APTT 35 SECONDS (21-34) H 09/11/18 00:36 Attending/Attestation - Attestation I have personally seen and examined this patient.: Yes I have fully participated in the care of the patient.: Yes I have reviewed all pertinent clinical information, including history, physical exam and plan: Yes Notes (Text): 09/27/18 18:24 Medical attending: Patient was seen and examined by me with the medical residents. He was at HD when we saw him. He was not in any acute distress. As previously noted he remains very low platelet count. We are pending out patient HD placement Romeo Snyder
[2018-09-27] MEDS: Vitamins A & D Oint UD Foilpak TOP SCH ×2 (11:10→17:28)
[2018-09-27] MEDS: Epoetin Alfa 10,000 unit/ml Dialysis IV SCH (12:25)
--- NOTE | 2018-09-27 14:20 | CP.PCM.PN ---
Subjective - Date & Time of Evaluation Date of Evaluation: 09/27/18 Time of Evaluation: 14:18 - Subjective Subjective: c/oi H/As BP controlled Has right inguinal hernia Stable HD course Objective - Vital Signs/Intake and Output Vital Signs (last 24 hours): Temp Pulse Resp BP Pulse Ox 98.2 F 79 16 135/82 98 09/27/18 09:30 09/27/18 09:30 09/27/18 09:30 09/27/18 11:15 09/27/18 09:30 Intake and Output: 09/27/18 09/27/18 06:59 18:59 Intake Total 120 Balance 120 - Medications Medications: Current Medications Acetaminophen (Tylenol 325mg Tab) 650 mg PO Q6 PRN PRN Reason: Pain, Mild (1-3) Last Admin: 09/25/18 13:13 Dose: 650 mg Amlodipine Besylate (Norvasc) 10 mg PO DAILY [facility] Last Admin: 09/27/18 11:09 Dose: Not Given Calcium Acetate (Phoslo) 667 mg PO TID [facility] Last Admin: 09/27/18 11:10 Dose: Not Given Carvedilol (Coreg) 6.25 mg PO BID [facility] Last Admin: 09/27/18 11:09 Dose: Not Given Clonidine HCl (Catapres) 0.2 mg PO TID [facility] Last Admin: 09/27/18 11:09 Dose: Not Given Epoetin Rod (Procrit) 10,000 unit IV MWF [facility] Last Admin: 09/27/18 12:25 Dose: 10,000 unit Hydralazine HCl (Apresoline) 50 mg PO Q8 [facility] Last Admin: 09/27/18 05:18 Dose: 50 mg Lactic Acid (Lac-Hydrin 12% Lotion (225 G)) 0 gm EXT Q6 [facility] Last Admin: 09/27/18 11:10 Dose: Not Given Vitamin A (Vitamin A & D Oint Ud Foilpak) 1 ea TOP BID [facility] Last Admin: 09/27/18 11:10 Dose: Not Given - Labs Labs: 09/27/18 06:46 09/27/18 06:46 PT 14.6 SECONDS (9.7-12.2) H 09/11/18 00:36 INR 1.3 09/11/18 00:36 APTT 35 SECONDS (21-34) H 09/11/18 00:36 - Constitutional Appears: No Acute Distress, Chronically Ill - Head Exam Head Exam: ATRAUMATIC, NORMAL INSPECTION - Eye Exam Eye Exam: EOMI, Normal appearance - Respiratory Exam Respiratory Exam: Clear to Ausculation Bilateral, NORMAL BREATHING PATTERN - Cardiovascular Exam Cardiovascular Exam: REGULAR RHYTHM. absent: +S1 - GI/Abdominal Exam GI & Abdominal Exam: Soft. absent: Tenderness - Extremities Exam Extremities Exam: Normal Inspection. absent: Tenderness - Neurological Exam Neurological Exam: Awake, CN II-XII Intact, Reflexes Normal - Skin Skin Exam: Dry, Warm Assessment and Plan (1) Gastrointestinal hemorrhage Status: Acute (2) Thrombocytopenia Status: Acute (3) Dialysis catheter clot or failure Status: Acute (4) ESRD (end stage renal disease) Status: Acute (5) Hemolytic uremic syndrome Status: Acute (6) Hypertensive chronic kidney disease with stage 5 chronic kidney disease or end stage renal disease Status: Acute (7) Thrombocytopenia Status: Acute - Assessment and Plan (Free Text) Plan: Dialysis MWF Might need CT head Recommend surgical eval of hernia
[2018-09-28] MEDS: Ammonium Lactate 12% Lotion (225 g) EXT SCH ×4 (00:39→17:54)
--- NOTE | 2018-09-28 07:08 | CP.PCM.PN ---
<Consuelo Santiago - Last Filed: 09/28/18 17:38> Subjective - Date & Time of Evaluation Date of Evaluation: 09/28/18 Time of Evaluation: 07:08 - Subjective Subjective: Progress note for Hospitalist service Patient seen and examined at bedside. He states he would like to go home as soon as possible. He denies fevers, chills, nausea, vomiting, diarrhea, bleeding, chest pain, shortness of breath, palpitations, cough, constipation, leg pain. He is able to able to ambulate but states he feels pressure in his right groin at the site of his hernia. Objective - Vital Signs/Intake and Output Vital Signs (last 24 hours): Temp Pulse Resp BP Pulse Ox 98.4 F 78 18 118/71 99 09/28/18 05:02 09/28/18 04:56 09/28/18 04:56 09/28/18 04:56 09/28/18 04:56 Intake and Output: 09/28/18 09/28/18 06:59 18:59 Intake Total 120 Balance 120 - Medications Medications: Current Medications Acetaminophen (Tylenol 325mg Tab) 650 mg PO Q6 PRN PRN Reason: Pain, Mild (1-3) Last Admin: 09/28/18 05:02 Dose: 650 mg Amlodipine Besylate (Norvasc) 10 mg PO DAILY [facility] Last Admin: 09/27/18 11:09 Dose: Not Given Calcium Acetate (Phoslo) 667 mg PO TID [facility] Last Admin: 09/27/18 17:26 Dose: 667 mg Carvedilol (Coreg) 6.25 mg PO BID [facility] Last Admin: 09/27/18 17:26 Dose: 6.25 mg Clonidine HCl (Catapres) 0.2 mg PO TID [facility] Last Admin: 09/27/18 17:26 Dose: 0.2 mg Epoetin Rod (Procrit) 10,000 unit IV MWF [facility] Last Admin: 09/27/18 12:25 Dose: 10,000 unit Hydralazine HCl (Apresoline) 50 mg PO Q8 [facility] Last Admin: 09/28/18 05:05 Dose: Not Given Lactic Acid (Lac-Hydrin 12% Lotion (225 G)) 0 gm EXT Q6 [facility] Last Admin: 09/28/18 05:03 Dose: 1 applic Vitamin A (Vitamin A & D Oint Ud Foilpak) 1 ea TOP BID [facility] Last Admin: 09/27/18 17:28 Dose: Not Given - Labs Labs: 09/27/18 06:46 09/27/18 06:46 PT 14.6 SECONDS (9.7-12.2) H 09/11/18 00:36 INR 1.3 09/11/18 00:36 APTT 35 SECONDS (21-34) H 09/11/18 00:36 - Constitutional Appears: Well, No Acute Distress - Head Exam Head Exam: ATRAUMATIC, NORMOCEPHALIC - Eye Exam Eye Exam: EOMI - ENT Exam ENT Exam: Mucous Membranes Moist Additional comments: bilateral hearing aids - Neck Exam Neck Exam: Full ROM - Respiratory Exam Respiratory Exam: Clear to Ausculation Bilateral. absent: Rales, Rhonchi, Wheezes, Respiratory Distress, Stridor Additional comments: Right permacath - Cardiovascular Exam Cardiovascular Exam: REGULAR RHYTHM, +S1, +S2. absent: Gallop, Rubs, Murmur - GI/Abdominal Exam GI & Abdominal Exam: Soft, Normal Bowel Sounds. absent: Distended, Firm, Guarding, Rigid, Tenderness, Organomegaly - Exam Additional comments: reducible hernia into right inguinal canal, mildly tender. no evidence of strangulation. 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 His symptoms have resolved. He is now awaiting placement for outpatient HD. 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 However, cannot r/o Alport's syndrome - has not been compliant with eculizumab for last 4 months - Hgb 8.2 on admission - Type and cross -> transfused 2u PRBC 09/11 -> Hgb 6.5 - Hgb 5.7 on 09/13 -> transfused 2u PRBC with HD -> Hgb 8.0 - Heme consulted: Dr. Benites - help appreciated - Trend with AM labs - continue to transfuse prn with HD - Plan to do labs on MWF with dialysis Severe Thrombocytopenia - likely 2/2 atypical HUS - has not been compliant with eculizumab for last 4 months - Plts 6 on admission - DDAVP 20mcg and Solumedrol 125mg given prior to 2u platelet transfusion 09/11 - Plts 5 -> another 2u Plts transfused 09/12 -> Plts 37 - 09/18/18: Given leukocytosis, case discussed with Dr. Benites who requested manual platelet count. Recommended 1 unit of platelet transfusion if manual platelet count is less than 20. Solumedrol 60mg IV q12, Solumedrol 60mg once 09/21/18, discontinued 09/22/18. Taper complete - Manual platelet count 36 yesterday - Heme consulted: Dr. Benites - help appreciated - Trend with AM labs - continue to transfuse prn - monitor for bleeding - Plan to do labs on MWF with dialysis Leukocytosis - White count 17.7 yesterday - Blood Cx from port (09/12): neg x5 days - blood Cx (09/18): neg x5 days - UA 3+ protein, 2+ glucose - urine cultures 09/18 negative - stool culture, and stool studies including O&P, C diff negative - 09/20/18: Case discussed with Dr. Benites who agreed with plan to taper off Solumedrol since it might be causing leukocytosis. Recommended Solumedrol 60mg once tomorrow and then discontinuing on 09/22/18. Patient was treated with S olumedrol 60mg Q12 from 09/16/18 - 09/20/18 - repeat procalcitonin (09/26) 0.60 Right inguinal hernia - Easily reducible - CT Pelvis (09/26): Moderate lower abdominal/pelvic free fluid. Fluid and fat containing right inguinal hernia. Small fat containing left inguinal hernia. Partially imaged moderate constipation. - Continue to monitor for strangulation -> will consider surgery then Diarrhea, resolved - White count 17.7 yesterday - stool culture negative, - Stool ova and parasite negative - CD negative - Continue to monitor ESRD on HD MWF - BUN/Cr: 72/10.7 on admission - elevated from previous admission of Cr of 7s - has not had dialysis in the last 4 months, still producing urine - Vasc Surgery consulted: Dr. Philomena goodson appreciated Existing R chest Permacath flushed and still functional Blood Cx if concerned for long indwelling infection No surgical intervention at this time as vascular access intact and new access involves high risk with low platelets Signed off 09/11 - Nephro consulted: Dr. Hamilton goodson appreciated Cont on MWF schedule EPO with HD - Due for HD tomorrow - Trend with MWF labs Code Sepsis - called for elevated WBC and tachycardia, suspected long time indwelling cath infection - CXR (09/11): mild pulmonary venous congestion - repeat CXR (09/12): pulmonary vascular congestion. No focal consolidation or pleural effusion. - no rashes, skin changes, sensitivities noticed on skin, including area surrounding catheter - UA (09/11): 3+ protein - VBG (09/11): pH 7.48, lactate 1.6 - procalcitonin (09/11): 0.85 - Given Zosyn 2.25gm and Vancomycin 1gm IV, Gentamicin 270mg once in ED - blood Cx (09/11): Cornebacterium speices, no guidelines on sensitivities - blood Cx drawn from Permacath (09/12): no growth @ 48hrs - Vancomycin 1gm IVPB daily (started 09/11) --> discontinued - random Vanc (09/12): 24.7 - Vanc trough @ 0030am Jessica09/14: 18.9 -> hold for one day - Vanc trough @ 0030am on 09/19 before 8th dose - Zosyn 2.25gm IVPB q8 (started 09/12) -> discontinued - Trend with MWF labs Hypertension - home Norvasc 10mg po daily - home Coreg 6.25mg po bid - home Clonidine 0.2mg po tid - home hydralazine 25mg PO TID --> decreased to Hydralazine 25mg BID - Monitor vitals Possible GI bleed - Hgb 8.2 on admission. Stool occult blood positive in ED - s/p transfusion 2u PRBC (09/11) - to receive another 2u PRBC in dialysis (10/31) - GI consulted: Dr. Elliott - recs appreciated unlikely upper GI bleed no GI intervention, including endoscopy, indicated at this time rec Pepcid over Protonix if GI ppx indicated signed off 09/11 PPx - DVT: Chemical AC CI d/t severe thrombocytopenia, SCDs - GI: CI d/t severe thrombocytopenia - Diet: Diabetic Soft diet - Labs with MWF dialysis - Palliative Care consulted: Continues to be Full Code without Advanced Directive. Encouraged to attend HD as outpatient although patient is still resistant. - Dispo: Patient has lost previous HD chair. CM has begun looking for an outpatient HD center who will accept him with [facility] [place]. Case discussed with Dr. Lillian Santiago, PGY1 <Romeo Snyder - Last Filed: 09/28/18 18:27> Objective - Vital Signs/Intake and Output Vital Signs (last 24 hours): Temp Pulse Resp BP Pulse Ox 98.3 F 84 20 134/74 98 09/28/18 15:05 09/28/18 15:05 09/28/18 15:05 09/28/18 15:05 09/28/18 15:05 Intake and Output: 09/28/18 09/28/18 06:59 18:59 Intake Total 120 300 Balance 120 300 - Medications Medications: Current Medications Acetaminophen (Tylenol 325mg Tab) 650 mg PO Q6 PRN PRN Reason: Pain, Mild (1-3) Last Admin: 09/28/18 05:02 Dose: 650 mg Amlodipine Besylate (Norvasc) 10 mg PO DAILY [facility] Last Admin: 09/28/18 10:41 Dose: Not Given Calcium Acetate (Phoslo) 667 mg PO TID [facility] Last Admin: 09/28/18 17:53 Dose: 667 mg Carvedilol (Coreg) 6.25 mg PO BID [facility] Last Admin: 09/28/18 17:53 Dose: 6.25 mg Clonidine HCl (Catapres) 0.2 mg PO TID [facility] Last Admin: 09/28/18 17:53 Dose: 0.2 mg Epoetin Rod (Procrit) 10,000 unit IV MWF [facility] Last Admin: 09/27/18 12:25 Dose: 10,000 unit Hydralazine HCl (Apresoline) 25 mg PO BID [facility] Last Admin: 09/28/18 17:53 Dose: 25 mg Lactic Acid (Lac-Hydrin 12% Lotion (225 G)) 0 gm EXT Q6 [facility] Last Admin: 09/28/18 17:54 Dose: 1 applic Vitamin A (Vitamin A & D Oint Ud Foilpak) 1 ea TOP BID [facility] Last Admin: 09/28/18 17:55 Dose: Not Given - Labs Labs: 09/27/18 06:46 09/27/18 06:46 PT 14.6 SECONDS (9.7-12.2) H 09/11/18 00:36 INR 1.3 09/11/18 00:36 APTT 35 SECONDS (21-34) H 09/11/18 00:36 Attending/Attestation - Attestation I have personally seen and examined this patient.: Yes I have fully participated in the care of the patient.: Yes I have reviewed all pertinent clinical information, including history, physical exam and plan: Yes Notes (Text): 09/28/18 18:25 Medical attending: Patient was seen and examined by me, I reviewed the above and agree with the above note by the resident The patient was not in any acute distress however he was very depressed about being in the hospital and wanted to be discharged. We explained to the patient that he does not have out patient HD placment yet - and it will take some time due to his financial as well as immigration status. He is worried about potentially loosing his apartment. It is a difficult situation he is currently in, if he were to leave AMA we explained to him that he may not last very long without HD Romeo Snyder
--- NOTE | 2018-09-28 09:42 | CP.PCM.PN ---
Subjective - Date & Time of Evaluation Date of Evaluation: 09/28/18 Time of Evaluation: 09:40 - Subjective Subjective: c/o H/As BP lower now s/p dialysis 09/27 same hernia complaint Objective - Vital Signs/Intake and Output Vital Signs (last 24 hours): Temp Pulse Resp BP Pulse Ox 98.3 F 72 20 119/71 100 09/28/18 07:00 09/28/18 07:00 09/28/18 07:00 09/28/18 07:00 09/28/18 07:00 Intake and Output: 09/28/18 09/28/18 06:59 18:59 Intake Total 120 Balance 120 - Medications Medications: Current Medications Acetaminophen (Tylenol 325mg Tab) 650 mg PO Q6 PRN PRN Reason: Pain, Mild (1-3) Last Admin: 09/28/18 05:02 Dose: 650 mg Amlodipine Besylate (Norvasc) 10 mg PO DAILY [facility] Last Admin: 09/27/18 11:09 Dose: Not Given Calcium Acetate (Phoslo) 667 mg PO TID [facility] Last Admin: 09/27/18 17:26 Dose: 667 mg Carvedilol (Coreg) 6.25 mg PO BID [facility] Last Admin: 09/27/18 17:26 Dose: 6.25 mg Clonidine HCl (Catapres) 0.2 mg PO TID [facility] Last Admin: 09/27/18 17:26 Dose: 0.2 mg Epoetin Rod (Procrit) 10,000 unit IV MWF [facility] Last Admin: 09/27/18 12:25 Dose: 10,000 unit Hydralazine HCl (Apresoline) 50 mg PO Q8 [facility] Last Admin: 09/28/18 05:05 Dose: Not Given Lactic Acid (Lac-Hydrin 12% Lotion (225 G)) 0 gm EXT Q6 [facility] Last Admin: 09/28/18 05:03 Dose: 1 applic Vitamin A (Vitamin A & D Oint Ud Foilpak) 1 ea TOP BID [facility] Last Admin: 09/27/18 17:28 Dose: Not Given - Labs Labs: 09/27/18 06:46 09/27/18 06:46 PT 14.6 SECONDS (9.7-12.2) H 09/11/18 00:36 INR 1.3 09/11/18 00:36 APTT 35 SECONDS (21-34) H 09/11/18 00:36 - Constitutional Appears: No Acute Distress, Chronically Ill - Head Exam Head Exam: ATRAUMATIC, NORMAL INSPECTION - Eye Exam Eye Exam: EOMI, Normal appearance - Neck Exam Neck Exam: Normal Inspection. absent: Tenderness - Respiratory Exam Respiratory Exam: Clear to Ausculation Bilateral, NORMAL BREATHING PATTERN - Cardiovascular Exam Cardiovascular Exam: REGULAR RHYTHM, +S1 - GI/Abdominal Exam GI & Abdominal Exam: Soft. absent: Tenderness - Extremities Exam Extremities Exam: Normal Inspection. absent: Tenderness - Neurological Exam Neurological Exam: Alert, CN II-XII Intact - Skin Skin Exam: Dry, Warm Assessment and Plan (1) Gastrointestinal hemorrhage Status: Acute (2) Thrombocytopenia Status: Acute (3) Dialysis catheter clot or failure Status: Acute (4) ESRD (end stage renal disease) Status: Acute (5) Hemolytic uremic syndrome Status: Acute (6) Hypertensive chronic kidney disease with stage 5 chronic kidney disease or end stage renal disease Status: Acute (7) Thrombocytopenia Status: Acute - Assessment and Plan (Free Text) Plan: lower BP meds dialysis MWF await HD placement
[2018-09-28] MEDS: Vitamins A & D Oint UD Foilpak TOP SCH ×2 (10:40→17:55)
[2018-09-29] MEDS: Ammonium Lactate 12% Lotion (225 g) EXT SCH ×4 (00:41→17:54)
--- NOTE | 2018-09-29 07:01 | CP.PCM.PN ---
<Consuelo Santiago - Last Filed: 09/29/18 17:53> Subjective - Date & Time of Evaluation Date of Evaluation: 09/29/18 Time of Evaluation: 07:00 - Subjective Subjective: Progress note for Hospitalist service Patient seen and examined at bedside. He states he has no complaints at this time. He is due for dialysis today. He denies fevers, chills, headache, lightheadedness, dizziness, chest pain, shortness of breath, abdominal pain, nausea, vomiting, diarrhea, bleeding, leg pain. Awaiting outpatient HD placement. He states that his hernia is not bothering him as much anymore. Objective - Vital Signs/Intake and Output Vital Signs (last 24 hours): Temp Pulse Resp BP Pulse Ox 98.2 F 70 20 124/73 97 09/29/18 04:07 09/29/18 04:07 09/29/18 04:07 09/29/18 04:07 09/29/18 04:07 Intake and Output: 09/29/18 09/29/18 06:59 18:59 Intake Total 120 Balance 120 - Medications Medications: Current Medications Acetaminophen (Tylenol 325mg Tab) 650 mg PO Q6 PRN PRN Reason: Pain, Mild (1-3) Last Admin: 09/29/18 00:40 Dose: 650 mg Amlodipine Besylate (Norvasc) 10 mg PO DAILY [facility] Last Admin: 09/28/18 10:41 Dose: Not Given Calcium Acetate (Phoslo) 667 mg PO TID [facility] Last Admin: 09/28/18 17:53 Dose: 667 mg Carvedilol (Coreg) 6.25 mg PO BID [facility] Last Admin: 09/28/18 17:53 Dose: 6.25 mg Clonidine HCl (Catapres) 0.2 mg PO TID [facility] Last Admin: 09/28/18 17:53 Dose: 0.2 mg Epoetin Rod (Procrit) 10,000 unit IV MWF [facility] Last Admin: 09/27/18 12:25 Dose: 10,000 unit Hydralazine HCl (Apresoline) 25 mg PO BID [facility] Last Admin: 09/28/18 17:53 Dose: 25 mg Lactic Acid (Lac-Hydrin 12% Lotion (225 G)) 0 gm EXT Q6 [facility] Last Admin: 09/29/18 05:11 Dose: Not Given Vitamin A (Vitamin A & D Oint Ud Foilpak) 1 ea TOP BID [facility] Last Admin: 09/28/18 17:55 Dose: Not Given - Labs Labs: 09/27/18 06:46 09/27/18 06:46 PT 14.6 SECONDS (9.7-12.2) H 09/11/18 00:36 INR 1.3 09/11/18 00:36 APTT 35 SECONDS (21-34) H 09/11/18 00:36 - Constitutional Appears: Well, No Acute Distress - Head Exam Head Exam: ATRAUMATIC, NORMOCEPHALIC - Eye Exam Eye Exam: EOMI - ENT Exam ENT Exam: Mucous Membranes Moist Additional comments: hearing aids in place - Respiratory Exam Respiratory Exam: Clear to Ausculation Bilateral. absent: Rales, Rhonchi, Wheezes, Respiratory Distress, Stridor Additional comments: Right permacath in place, no evidence of infection to site - Cardiovascular Exam Cardiovascular Exam: REGULAR RHYTHM, +S1, +S2. absent: Gallop, Rubs, Murmur - GI/Abdominal Exam GI & Abdominal Exam: Soft, Normal Bowel Sounds. 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 His symptoms have resolved. He is now awaiting placement for outpatient HD. 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 However, cannot r/o Alport's syndrome - has not been compliant with eculizumab for last 4 months - Hgb 8.2 on admission - Type and cross -> transfused 2u PRBC 09/11 -> Hgb 6.5 - Hgb 5.7 on 09/13 -> transfused 2u PRBC with HD -> Hgb 8.0 - Heme consulted: Dr. Benites - dileep appreciated - Trend with AM labs, most recent H/H 9.04/11.1 - continue to transfuse prn with HD - Plan to do labs on MWF with dialysis Severe Thrombocytopenia - likely 2/2 atypical HUS - has not been compliant with eculizumab for last 4 months - Plts 6 on admission - DDAVP 20mcg and Solumedrol 125mg given prior to 2u platelet transfusion 09/11 - Plts 5 -> another 2u Plts transfused 09/12 -> Plts 37 - 09/18/18: Given leukocytosis, case discussed with Dr. Benites who requested manual platelet count. Recommended 1 unit of platelet transfusion if manual platelet count is less than 20. Solumedrol 60mg IV q12, Solumedrol 60mg once 09/21/18, discontinued 09/22/18. Taper complete - Manual platelet count 35 today - Heme consulted: Dr. Benites - dileep appreciated - Trend with AM labs - continue to transfuse prn - monitor for bleeding - Plan to do labs on MWF with dialysis Leukocytosis - White count 12.1 today - Blood Cx from port (09/12): neg x5 days - blood Cx (09/18): neg x5 days - UA 3+ protein, 2+ glucose - urine cultures 09/18 negative - stool culture, and stool studies including O&P, C diff negative - 09/20/18: Case discussed with Dr. Benites who agreed with plan to taper off Solumedrol since it might be causing leukocytosis. Recommended Solumedrol 60mg once tomorrow and then discontinuing on 09/22/18. Patient was treated with Solumedrol 60mg Q12 from 09/16/18 - 09/20/18 - repeat procalcitonin (09/26) 0.60 Right inguinal hernia - Easily reducible - CT Pelvis (09/26): Moderate lower abdominal/pelvic free fluid. Fluid and fat containing right inguinal hernia. Small fat containing left inguinal hernia. Partially imaged moderate constipation. - Continue to monitor for strangulation -> will consider surgery then Diarrhea, resolved - White count 12.1 today - stool culture negative, - Stool ova and parasite negative - CD negative - Continue to monitor ESRD on HD MWF - BUN/Cr: 72/10.7 on admission - elevated from previous admission of Cr of 7s - has not had dialysis in the last 4 months, still producing urine - Vasc Surgery consulted: Dr. Philomena goodson appreciated Existing R chest Permacath flushed and still functional Blood Cx if concerned for long indwelling infection No surgical intervention at this time as vascular access intact and new access involves high risk with low platelets Signed off 09/11 - Nephro consulted: Dr. Hamilton goodson appreciated Cont on MWF schedule EPO with HD - Due for HD today - Trend with MWF labs Code Sepsis - called for elevated WBC and tachycardia, suspected long time indwelling cath infection - CXR (09/11): mild pulmonary venous congestion - repeat CXR (09/12): pulmonary vascular congestion. No focal consolidation or pleural effusion. - no rashes, skin changes, sensitivities noticed on skin, including area surrounding catheter - UA (09/11): 3+ protein - VBG (09/11): pH 7.48, lactate 1.6 - procalcitonin (09/11): 0.85 - Given Zosyn 2.25gm and Vancomycin 1gm IV, Gentamicin 270mg once in ED - blood Cx (09/11): Cornebacterium speices, no guidelines on sensitivities - blood Cx drawn from Permacath (09/12): no growth @ 48hrs - Vancomycin 1gm IVPB daily (started 09/11) --> discontinued - random Vanc (09/12): 24.7 - Vanc trough @ 0030am Jessica09/14: 18.9 -> hold for one day - Vanc trough @ 0030am on 09/19 before 8th dose - Zosyn 2.25gm IVPB q8 (started 09/12) -> discontinued - Trend with MWF labs Hypertension - home Norvasc 10mg po daily - home Coreg 6.25mg po bid - home Clonidine 0.2mg po tid - home hydralazine 25mg PO TID --> decreased to Hydralazine 25mg BID - Monitor vitals Possible GI bleed - Hgb 8.2 on admission. Stool occult blood positive in ED - s/p transfusion 2u PRBC (09/11) - to receive another 2u PRBC in dialysis (09/13) - GI consulted: Dr. Earl - recs appreciated unlikely upper GI bleed no GI intervention, including endoscopy, indicated at this time rec Pepcid over Protonix if GI ppx indicated signed off 09/11 PPx - DVT: Chemical AC CI d/t severe thrombocytopenia, SCDs - GI: CI d/t severe thrombocytopenia - Diet: Diabetic Soft diet - Labs with MWF dialysis - Palliative Care consulted: Continues to be Full Code without Advanced Directive. Encouraged to attend HD as outpatient although patient is still resistant. - Dispo: Patient has lost previous HD chair. CM has begun looking for an outpatient HD center who will accept him with [facility]. Case discussed with Dr. Lillian Santiago, PGY1 <Romeo Snyder - Last Filed: 09/29/18 18:46> Objective - Vital Signs/Intake and Output Vital Signs (last 24 hours): Temp Pulse Resp BP Pulse Ox 98.3 F 84 20 129/81 97 09/29/18 15:00 09/29/18 15:00 09/29/18 15:00 09/29/18 15:00 09/29/18 15:00 Intake and Output: 09/29/18 09/29/18 06:59 18:59 Intake Total 120 Balance 120 - Medications Medications: Current Medications Acetaminophen (Tylenol 325mg Tab) 650 mg PO Q6 PRN PRN Reason: Pain, Mild (1-3) Last Admin: 09/29/18 17:53 Dose: 650 mg Amlodipine Besylate (Norvasc) 10 mg PO DAILY [facility] Last Admin: 09/29/18 13:33 Dose: 10 mg Calcium Acetate (Phoslo) 1,334 mg PO TIDCC [facility] Last Admin: 09/29/18 17:52 Dose: 1,334 mg Carvedilol (Coreg) 6.25 mg PO BID [facility] Last Admin: 09/29/18 17:52 Dose: 6.25 mg Clonidine HCl (Catapres) 0.2 mg PO TID [facility] Last Admin: 09/29/18 17:52 Dose: 0.2 mg Epoetin Rod (Procrit) 10,000 unit IV MWF [facility] Last Admin: 09/29/18 11:35 Dose: 10,000 unit Hydralazine HCl (Apresoline) 25 mg PO BID [facility] Last Admin: 09/29/18 17:52 Dose: 25 mg Lactic Acid (Lac-Hydrin 12% Lotion (225 G)) 0 gm EXT Q6 [facility] Last Admin: 09/29/18 17:54 Dose: Not Given Vitamin A (Vitamin A & D Oint Ud Foilpak) 1 ea TOP BID [facility] Last Admin: 09/29/18 17:53 Dose: 1 ea - Labs Labs: 09/29/18 09:08 09/29/18 09:08 PT 14.6 SECONDS (9.7-12.2) H 09/11/18 00:36 INR 1.3 09/11/18 00:36 APTT 35 SECONDS (21-34) H 09/11/18 00:36 Attending/Attestation - Attestation I have personally seen and examined this patient.: Yes I have fully participated in the care of the patient.: Yes I have reviewed all pertinent clinical information, including history, physical exam and plan: Yes Notes (Text): 09/29/18 18:46 Medical attending: Patient was seen and examined with the medical residents. He was having hemodialysis when we saw him. I reviewed the above note by medical billing specialist and agree This morning he was very depressed, as mentioned previously he's concerned about losing his apartment he's currently residing at as mentioned previously the patient has undocumented immigrant and does not have any insurance. Currently trying to find the patient an outpatient hemodialysis placement with take him He previously did have an outpatient hemodialysis center he was going to. However he stopped going for 4 months and unfortunately lost his spot. The patient's platelet count remains very low. Will continue to monitor Romeo Snyder
[2018-09-29 09:13] LABS: BASO # 0.1 K/uL (0.0-0.2); BASO % 0.9 % (0.0-2.0); EOS # 0.3 K/uL (0.0-0.7); EOS % 2.5 % (0.0-4.0); HEMOGLOBIN 9.5 g/dL (12.0-18.0); LYMPH # 3.4 K/uL (1.0-4.3); LYMPH % 28.1 % (20.0-40.0); MEAN CORPUSCULAR HGB CONC 32.7 g/dL (33.0-37.0); MEAN PLATELET VOLUME 10.4 fL (7.2-11.7); MONO # 2.3 K/uL (0.0-0.8); MONO % 18.7 % (0.0-10.0); NEUT % 49.8 % (50.0-75.0); NRBC % 0.1 % (0.0-2.0); RBC 3.16 Mil/uL (4.40-5.90); RED CELL DISTRIBUTION WIDTH 22.1 % (11.5-14.5); WHITE BLOOD COUNT 12.1 K/uL (4.8-10.8)
[2018-09-29 09:55] LABS: ALB/GLOB RATIO 1.4 (1.0-2.1); ALBUMIN 3.2 g/dL (3.5-5.0); CALCIUM 8.3 mg/dl (8.6-10.4)
[2018-09-29] MEDS: Vitamins A & D Oint UD Foilpak TOP SCH ×2 (10:59→17:53)
--- NOTE | 2018-09-29 10:59 | CP.PCM.PN ---
Subjective - Date & Time of Evaluation Date of Evaluation: 09/29/18 Time of Evaluation: 10:57 - Subjective Subjective: Seen at dialysis BP better- stable now No more H/As Hg better To UF 2kg Set EDW about 74 kg Objective - Vital Signs/Intake and Output Vital Signs (last 24 hours): Temp Pulse Resp BP Pulse Ox 97.9 F 77 18 142/85 99 09/29/18 08:40 09/29/18 08:40 09/29/18 08:40 09/29/18 10:40 09/29/18 08:40 Intake and Output: 09/29/18 09/29/18 06:59 18:59 Intake Total 120 Balance 120 - Medications Medications: Current Medications Acetaminophen (Tylenol 325mg Tab) 650 mg PO Q6 PRN PRN Reason: Pain, Mild (1-3) Last Admin: 09/29/18 00:40 Dose: 650 mg Amlodipine Besylate (Norvasc) 10 mg PO DAILY [facility] [place] Last Admin: 09/28/18 10:41 Dose: Not Given Calcium Acetate (Phoslo) 1,334 mg PO TID [facility] [place] Carvedilol (Coreg) 6.25 mg PO BID [facility] Last Admin: 09/28/18 17:53 Dose: 6.25 mg Clonidine HCl (Catapres) 0.2 mg PO TID [facility] [place] Last Admin: 09/28/18 17:53 Dose: 0.2 mg Epoetin Rod (Procrit) 10,000 unit IV MWF [facility] [place] Last Admin: 09/27/18 12:25 Dose: 10,000 unit Hydralazine HCl (Apresoline) 25 mg PO BID [facility] [place] Last Admin: 09/28/18 17:53 Dose: 25 mg Lactic Acid (Lac-Hydrin 12% Lotion (225 G)) 0 gm EXT Q6 [facility] [place] Last Admin: 09/29/18 05:11 Dose: Not Given Vitamin A (Vitamin A & D Oint Ud Foilpak) 1 ea TOP BID [facility] Last Admin: 09/28/18 17:55 Dose: Not Given - Labs Labs: 09/29/18 09:08 09/29/18 09:08 PT 14.6 SECONDS (9.7-12.2) H 09/11/18 00:36 INR 1.3 09/11/18 00:36 APTT 35 SECONDS (21-34) H 09/11/18 00:36 - Constitutional Appears: No Acute Distress, Chronically Ill - Head Exam Head Exam: ATRAUMATIC, NORMAL INSPECTION - Eye Exam Eye Exam: EOMI, Normal appearance - Neck Exam Neck Exam: Normal Inspection. absent: Tenderness - Respiratory Exam Respiratory Exam: Clear to Ausculation Bilateral, NORMAL BREATHING PATTERN - Cardiovascular Exam Cardiovascular Exam: REGULAR RHYTHM, +S1 - GI/Abdominal Exam GI & Abdominal Exam: Soft. absent: Tenderness - Extremities Exam Extremities Exam: Normal Inspection. absent: Tenderness - Neurological Exam Neurological Exam: Awake, CN II-XII Intact - Skin Skin Exam: Dry, Warm Assessment and Plan (1) Gastrointestinal hemorrhage Status: Acute (2) Thrombocytopenia Status: Acute (3) Dialysis catheter clot or failure Status: Acute (4) ESRD (end stage renal disease) Status: Acute (5) Hemolytic uremic syndrome Status: Acute (6) Hypertensive chronic kidney disease with stage 5 chronic kidney disease or end stage renal disease Status: Acute (7) Thrombocytopenia Status: Acute - Assessment and Plan (Free Text) Plan: Same HD MWF same BP meds increase phoslo dose needs outpt HD placement
[2018-09-29] MEDS: Epoetin Alfa 10,000 unit/ml Dialysis IV SCH (11:35)
[2018-09-30] MEDS: Ammonium Lactate 12% Lotion (225 g) EXT SCH ×5 (00:30→23:24)
--- NOTE | 2018-09-30 01:00 | CP.PCM.PN ---
<Ange Gustafson - Last Filed: 09/30/18 00:58> Subjective - Date & Time of Evaluation Date of Evaluation: 09/30/18 Time of Evaluation: 00:58 - Subjective Subjective: Night Float Medicine Patient seen and examined at bedside. Patient denies chest pain, fevers, chills, night sweats. Patient states he happy with his urination and having bowel moments fine. RN did not report any acute events. Objective - Vital Signs/Intake and Output Vital Signs (last 24 hours): Temp Pulse Resp BP Pulse Ox 99.6 F 80 20 142/79 96 09/29/18 23:01 09/29/18 23:01 09/29/18 23:01 09/29/18 23:01 09/29/18 23:01 - Medications Medications: Current Medications Acetaminophen (Tylenol 325mg Tab) 650 mg PO Q6 PRN PRN Reason: Pain, Mild (1-3) Last Admin: 09/29/18 17:53 Dose: 650 mg Amlodipine Besylate (Norvasc) 10 mg PO DAILY [facility] Last Admin: 09/29/18 13:33 Dose: 10 mg Calcium Acetate (Phoslo) 1,334 mg PO TIDCC [facility] Last Admin: 09/29/18 17:52 Dose: 1,334 mg Carvedilol (Coreg) 6.25 mg PO BID [facility] Last Admin: 09/29/18 17:52 Dose: 6.25 mg Clonidine HCl (Catapres) 0.2 mg PO TID [facility] Last Admin: 09/29/18 17:52 Dose: 0.2 mg Epoetin Rod (Procrit) 10,000 unit IV MWF [facility] Last Admin: 09/29/18 11:35 Dose: 10,000 unit Hydralazine HCl (Apresoline) 25 mg PO BID [facility] Last Admin: 09/29/18 17:52 Dose: 25 mg Lactic Acid (Lac-Hydrin 12% Lotion (225 G)) 0 gm EXT Q6 [facility] Last Admin: 09/30/18 00:30 Dose: 1 applic Vitamin A (Vitamin A & D Oint Ud Foilpak) 1 ea TOP BID [facility] Last Admin: 09/29/18 17:53 Dose: 1 ea - Labs Labs: 09/29/18 09:08 09/29/18 09:08 PT 14.6 SECONDS (9.7-12.2) H 09/11/18 00:36 INR 1.3 09/11/18 00:36 APTT 35 SECONDS (21-34) H 09/11/18 00:36 Assessment and Plan - Assessment and Plan (Free Text) Assessment: 32 year old male with history of ESRD (previously on PD and HD but patient decided to stop all therapy about 4 months ago), hypertension, 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 His symptoms have resolved. He is now awaiting placement for outpatient HD. 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 However, cannot r/o Alport's syndrome - has not been compliant with eculizumab for last 4 months - Hgb 8.2 on admission - Type and cross -> transfused 2u PRBC 09/11 -> Hgb 6.5 - Hgb 5.7 on 09/13 -> transfused 2u PRBC with HD -> Hgb 8.0 - Heme consulted: Dr. Benites - help appreciated - Trend with AM labs, most recent H/H 9.04/11.1 - continue to transfuse prn with HD - Plan to do labs on MWF with dialysis Severe Thrombocytopenia - likely 2/2 atypical HUS - has not been compliant with eculizumab for last 4 months - Plts 6 on admission - DDAVP 20mcg and Solumedrol 125mg given prior to 2u platelet transfusion 09/11 - Plts 5 -> another 2u Plts transfused 09/12 -> Plts 37 - 09/18/18: Given leukocytosis, case discussed with Dr. Benites who requested manual platelet count. Recommended 1 unit of platelet transfusion if manual platelet count is less than 20. Solumedrol 60mg IV q12, Solumedrol 60mg once 09/21/18, discontinued 09/22/18. Taper complete - Manual platelet count 35 today - Heme consulted: Dr. Benites - dileep appreciated - Trend with AM labs - continue to transfuse prn - monitor for bleeding - Plan to do labs on MWF with dialysis Leukocytosis - Blood Cx from port (09/12): neg x5 days - blood Cx (09/18): neg x5 days - UA 3+ protein, 2+ glucose - urine cultures 09/18 negative - stool culture, and stool studies including O&P, C diff negative - 09/20/18: Case discussed with Dr. Benites who agreed with plan to taper off Solumedrol since it might be causing leukocytosis. Recommended Solumedrol 60mg once tomorrow and then discontinuing on 09/22/18. Patient was treated with Solumedrol 60mg Q12 from 09/16/18 - 09/20/18 - repeat procalcitonin (09/26) 0.60 Right inguinal hernia - Easily reducible - CT Pelvis (09/26): Moderate lower abdominal/pelvic free fluid. Fluid and fat containing right inguinal hernia. Small fat containing left inguinal hernia. Partially imaged moderate constipation. - Continue to monitor for strangulation -> will consider surgery then Diarrhea, resolved - White count 12.1 today - stool culture negative, - Stool ova and parasite negative - CD negative - Continue to monitor ESRD on HD MWF - BUN/Cr: 72/10.7 on admission - elevated from previous admission of Cr of 7s - has not had dialysis in the last 4 months, still producing urine - Vasc Surgery consulted: Dr. Philomena goodson appreciated Existing R chest Permacath flushed and still functional Blood Cx if concerned for long indwelling infection No surgical intervention at this time as vascular access intact and new access involves high risk with low platelets Signed off 09/11 - Nephro consulted: Dr. Hamilton goodson appreciated Cont on MWF schedule EPO with HD - Due for HD today - Trend with MWF labs Code Sepsis - called for elevated WBC and tachycardia, suspected long time indwelling cath infection - CXR (09/11): mild pulmonary venous congestion - repeat CXR (09/12): pulmonary vascular congestion. No focal consolidation or pleural effusion. - no rashes, skin changes, sensitivities noticed on skin, including area surrounding catheter - UA (09/11): 3+ protein - VBG (09/11): pH 7.48, lactate 1.6 - procalcitonin (09/11): 0.85 - Given Zosyn 2.25gm and Vancomycin 1gm IV, Gentamicin 270mg once in ED - blood Cx (09/11): Cornebacterifernandez lester, no guidelines on sensitivities - blood Cx drawn from Permacath (09/12): no growth @ 48hrs - Vancomycin 1gm IVPB daily (started 09/11) --> discontinued - random Vanc (09/12): 24.7 - Vanc trough @ 0030am Jessica 09/14: 18.9 -> hold for one day - Vanc trough @ 0030am on Tue 09/19 before 8th dose - Zosyn 2.25gm IVPB q8 (started 09/12) -> discontinued - Trend with MWF labs Hypertension - home Norvasc 10mg po daily - home Coreg 6.25mg po bid - home Clonidine 0.2mg po tid - home hydralazine 25mg PO TID --> decreased to Hydralazine 25mg BID - Monitor vitals Possible GI bleed - Hgb 8.2 on admission. Stool occult blood positive in ED - s/p transfusion 2u PRBC (09/11) - to receive another 2u PRBC in dialysis (09/13) - GI consulted: Dr. Elliott - recs appreciated unlikely upper GI bleed no GI intervention, including endoscopy, indicated at this time rec Pepcid over Protonix if GI ppx indicated signed off 09/11 PPx - DVT: Chemical AC CI d/t severe thrombocytopenia, SCDs - GI: CI d/t severe thrombocytopenia - Diet: Diabetic Soft diet - Labs with F dialysis - Palliative Care consulted: Continues to be Full Code without Advanced Directive. Encouraged to attend HD as outpatient although patient is still resistant. - Dispo: Patient has lost previous HD chair. has begun looking for an outpatient HD center who will accept him with [facility]. <Romeo Snyder - Last Filed: 09/30/18 14:58> Objective - Vital Signs/Intake and Output Vital Signs (last 24 hours): Temp Pulse Resp BP Pulse Ox 98.7 F 79 20 164/98 H 98 09/30/18 08:00 09/30/18 08:00 09/30/18 08:00 09/30/18 08:00 09/30/18 08:00 Intake and Output: 09/30/18 09/30/18 06:59 18:59 Intake Total 200 300 Balance 200 300 - Medications Medications: Current Medications Acetaminophen (Tylenol 325mg Tab) 650 mg PO Q6 PRN PRN Reason: Pain, Mild (1-3) Last Admin: 09/29/18 17:53 Dose: 650 mg Amlodipine Besylate (Norvasc) 10 mg PO DAILY [facility] Last Admin: 09/30/18 09:52 Dose: 10 mg Calcium Acetate (Phoslo) 1,334 mg PO TIDCC [facility] Last Admin: 09/30/18 11:46 Dose: 1,334 mg Carvedilol (Coreg) 6.25 mg PO BID [facility] Last Admin: 09/30/18 09:52 Dose: 6.25 mg Clonidine HCl (Catapres) 0.2 mg PO TID [facility] Last Admin: 09/30/18 13:48 Dose: 0.2 mg Epoetin Rod (Procrit) 10,000 unit IV MWF [facility] Last Admin: 09/29/18 11:35 Dose: 10,000 unit Hydralazine HCl (Apresoline) 25 mg PO BID [facility] Last Admin: 09/30/18 09:52 Dose: 25 mg Lactic Acid (Lac-Hydrin 12% Lotion (225 G)) 0 gm EXT Q6 [facility] Last Admin: 09/30/18 11:47 Dose: 1 applic Vitamin A (Vitamin A & D Oint Ud Foilpak) 1 ea TOP BID [facility] Last Admin: 09/30/18 09:52 Dose: 1 ea - Labs Labs: 09/29/18 09:08 09/29/18 09:08 PT 14.6 SECONDS (9.7-12.2) H 09/11/18 00:36 INR 1.3 09/11/18 00:36 APTT 35 SECONDS (21-34) H 09/11/18 00:36 Attending/Attestation - Attestation I have personally seen and examined this patient.: Yes I have fully participated in the care of the patient.: Yes I have reviewed all pertinent clinical information, including history, physical exam and plan: Yes
[2018-09-30] MEDS: Vitamins A & D Oint UD Foilpak TOP SCH ×2 (09:52→17:41)
--- NOTE | 2018-09-30 09:53 | CP.PCM.PN ---
Subjective - Date & Time of Evaluation Date of Evaluation: 09/30/18 Time of Evaluation: 09:52 - Subjective Subjective: s/p dialysis 09/29- well tolerated BP labile but generally controlled Lytes acceptable Less H/As Objective - Vital Signs/Intake and Output Vital Signs (last 24 hours): Temp Pulse Resp BP Pulse Ox 98.7 F 79 20 164/98 H 98 09/30/18 08:00 09/30/18 08:00 09/30/18 08:00 09/30/18 08:00 09/30/18 08:00 Intake and Output: 09/30/18 09/30/18 06:59 18:59 Intake Total 200 Balance 200 - Medications Medications: Current Medications Acetaminophen (Tylenol 325mg Tab) 650 mg PO Q6 PRN PRN Reason: Pain, Mild (1-3) Last Admin: 09/29/18 17:53 Dose: 650 mg Amlodipine Besylate (Norvasc) 10 mg PO DAILY [facility] Last Admin: 09/29/18 13:33 Dose: 10 mg Calcium Acetate (Phoslo) 1,334 mg PO TIDCC [facility] Last Admin: 09/30/18 08:30 Dose: 1,334 mg Carvedilol (Coreg) 6.25 mg PO BID [facility] Last Admin: 09/29/18 17:52 Dose: 6.25 mg Clonidine HCl (Catapres) 0.2 mg PO TID [facility] Last Admin: 09/29/18 17:52 Dose: 0.2 mg Epoetin Rod (Procrit) 10,000 unit IV MWF [facility] Last Admin: 09/29/18 11:35 Dose: 10,000 unit Hydralazine HCl (Apresoline) 25 mg PO BID [facility] Last Admin: 09/29/18 17:52 Dose: 25 mg Lactic Acid (Lac-Hydrin 12% Lotion (225 G)) 0 gm EXT Q6 [facility] Last Admin: 09/30/18 05:55 Dose: 1 applic Vitamin A (Vitamin A & D Oint Ud Foilpak) 1 ea TOP BID [facility] Last Admin: 09/29/18 17:53 Dose: 1 ea - Labs Labs: 09/29/18 09:08 09/29/18 09:08 PT 14.6 SECONDS (9.7-12.2) H 09/11/18 00:36 INR 1.3 09/11/18 00:36 APTT 35 SECONDS (21-34) H 09/11/18 00:36 - Constitutional Appears: No Acute Distress, Chronically Ill - Head Exam Head Exam: ATRAUMATIC, NORMAL INSPECTION - Eye Exam Eye Exam: EOMI, Normal appearance - Neck Exam Neck Exam: Normal Inspection. absent: Tenderness - Respiratory Exam Respiratory Exam: Clear to Ausculation Bilateral, NORMAL BREATHING PATTERN - Cardiovascular Exam Cardiovascular Exam: REGULAR RHYTHM, +S1 - GI/Abdominal Exam GI & Abdominal Exam: Soft. absent: Tenderness - Extremities Exam Extremities Exam: Normal Inspection. absent: Tenderness - Neurological Exam Neurological Exam: Awake, CN II-XII Intact - Skin Skin Exam: Dry, Warm Assessment and Plan (1) Gastrointestinal hemorrhage Status: Acute (2) Thrombocytopenia Status: Acute (3) Dialysis catheter clot or failure Status: Acute (4) ESRD (end stage renal disease) Status: Acute (5) Hemolytic uremic syndrome Status: Acute (6) Hypertensive chronic kidney disease with stage 5 chronic kidney disease or end stage renal disease Status: Acute (7) Thrombocytopenia Status: Acute - Assessment and Plan (Free Text) Plan: Same meds HD MWF Await HD placement
[2018-10-01] MEDS: Ammonium Lactate 12% Lotion (225 g) EXT SCH ×3 (06:59→17:17)
--- NOTE | 2018-10-01 09:03 | CP.PCM.PN ---
Subjective - Date & Time of Evaluation Date of Evaluation: 10/01/18 Time of Evaluation: 09:01 - Subjective Subjective: Pt seen and examined at bedside. He denies chest pain, SOB, n/v. He just had breakfast when seen and was resting in bed watching TV in no acute distress. Objective - Vital Signs/Intake and Output Vital Signs (last 24 hours): Temp Pulse Resp BP Pulse Ox 97.5 F L 67 20 135/90 98 10/01/18 08:00 10/01/18 08:00 10/01/18 08:00 10/01/18 08:00 10/01/18 08:00 Intake and Output: 10/01/18 10/01/18 06:59 18:59 Intake Total 250 Balance 250 - Medications Medications: Current Medications Acetaminophen (Tylenol 325mg Tab) 650 mg PO Q6 PRN PRN Reason: Pain, Mild (1-3) Last Admin: 09/29/18 17:53 Dose: 650 mg Amlodipine Besylate (Norvasc) 10 mg PO DAILY [facility] Last Admin: 09/30/18 09:52 Dose: 10 mg Calcium Acetate (Phoslo) 1,334 mg PO TIDCC [facility] Last Admin: 09/30/18 17:41 Dose: 1,334 mg Carvedilol (Coreg) 6.25 mg PO BID [facility] Last Admin: 09/30/18 17:41 Dose: 6.25 mg Clonidine HCl (Catapres) 0.2 mg PO TID [facility] Last Admin: 09/30/18 17:41 Dose: 0.2 mg Epoetin Rod (Procrit) 10,000 unit IV MWF [facility] Last Admin: 09/29/18 11:35 Dose: 10,000 unit Hydralazine HCl (Apresoline) 25 mg PO BID [facility] Last Admin: 09/30/18 17:41 Dose: 25 mg Lactic Acid (Lac-Hydrin 12% Lotion (225 G)) 0 gm EXT Q6 [facility] Last Admin: 10/01/18 06:59 Dose: Not Given Vitamin A (Vitamin A & D Oint Ud Foilpak) 1 ea TOP BID [facility] Last Admin: 09/30/18 17:41 Dose: 1 ea - Labs Labs: 09/29/18 09:08 09/29/18 09:08 PT 14.6 SECONDS (9.7-12.2) H 09/11/18 00:36 INR 1.3 09/11/18 00:36 APTT 35 SECONDS (21-34) H 09/11/18 00:36 - Constitutional Appears: Well, Non-toxic - Head Exam Head Exam: ATRAUMATIC, NORMAL INSPECTION, NORMOCEPHALIC - Eye Exam Eye Exam: Normal appearance - Neck Exam Neck Exam: Normal Inspection - Respiratory Exam Respiratory Exam: Clear to Ausculation Bilateral, NORMAL BREATHING PATTERN - Cardiovascular Exam Cardiovascular Exam: REGULAR RHYTHM - GI/Abdominal Exam GI & Abdominal Exam: Soft, Normal Bowel Sounds - Extremities Exam Extremities Exam: absent: Calf Tenderness - Back Exam Back Exam: NORMAL INSPECTION - Neurological Exam Neurological Exam: Alert, Awake, Oriented x3 - Psychiatric Exam Psychiatric exam: Normal Affect, Normal Mood - Skin Skin Exam: Dry, Intact, Normal Color, Warm Assessment and Plan - Assessment and Plan (Free Text) Assessment: 32 year old male with history of ESRD (previously on PD and HD but patient decided to stop all therapy about 4 months ago), hypertension, 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 His symptoms have resolved. He is now awaiting placement for outpatient HD. 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 However, cannot r/o Alport's syndrome - has not been compliant with eculizumab for last 4 months - Hgb 8.2 on admission - Type and cross -> transfused 2u PRBC 09/11 -> Hgb 6.5 - Hgb 5.7 on 09/13 -> transfused 2u PRBC with HD -> Hgb 8.0 - Heme consulted: Dr. Benites - help appreciated - Trend with AM labs, most recent H/H 9.5/29.1 - continue to transfuse prn with HD - Plan to do labs on MWF with dialysis Severe Thrombocytopenia - likely 2/2 atypical HUS - has not been compliant with eculizumab for last 4 months - Plts 6 on admission - DDAVP 20mcg and Solumedrol 125mg given prior to 2u platelet transfusion 09/11 - Plts 5 -> another 2u Plts transfused 09/12 -> Plts 37 - 09/18/18: Given leukocytosis, case discussed with Dr. Benites who requested manual platelet count. Recommended 1 unit of platelet transfusion if manual platelet count is less than 20. Solumedrol 60mg IV q12, Solumedrol 60mg once 09/21/18, discontinued 09/22/18. Taper complete - Manual platelet count 35 today - Heme consulted: Dr. Benites - help appreciated - Trend with AM labs - continue to transfuse prn - monitor for bleeding - Plan to do labs on MWF with dialysis Leukocytosis - Blood Cx from port (09/12): neg x5 days - blood Cx (09/18): neg x5 days - UA 3+ protein, 2+ glucose - urine cultures 09/18 negative - stool culture, and stool studies including O&P, C diff negative - 09/20/18: Case discussed with Dr. Benites who agreed with plan to taper off Solumedrol since it might be causing leukocytosis. Recommended Solumedrol 60mg once tomorrow and then discontinuing on 09/22/18. Patient was treated with Solumedrol 60mg Q12 from 09/16/18 - 09/20/18 - repeat procalcitonin (09/26) 0.60 Right inguinal hernia - Easily reducible - CT Pelvis (09/26): Moderate lower abdominal/pelvic free fluid. Fluid and fat containing right inguinal hernia. Small fat containing left inguinal hernia. Partially imaged moderate constipation. - Continue to monitor for strangulation -> will consider surgery then Diarrhea, resolved - White count 12.1 today - stool culture negative, - Stool ova and parasite negative - CD negative - Continue to monitor ESRD on HD MWF - BUN/Cr: 72/10.7 on admission - elevated from previous admission of Cr of 7s - has not had dialysis in the last 4 months, still producing urine - Vasc Surgery consulted: Dr. Philomena goodson appreciated Existing R chest Permacath flushed and still functional Blood Cx if concerned for long indwelling infection No surgical intervention at this time as vascular access intact and new access involves high risk with low platelets Signed off 09/11 - Nephro consulted: Dr. Hamilton goodson appreciated Cont on MWF schedule EPO with HD - Due for HD today - Trend with MWF labs Code Sepsis - called for elevated WBC and tachycardia, suspected long time indwelling cath infection - CXR (09/11): mild pulmonary venous congestion - repeat CXR (09/12): pulmonary vascular congestion. No focal consolidation or pleural effusion. - no rashes, skin changes, sensitivities noticed on skin, including area surrounding catheter - UA (09/11): 3+ protein - VBG (09/11): pH 7.48, lactate 1.6 - procalcitonin (09/11): 0.85 - Given Zosyn 2.25gm and Vancomycin 1gm IV, Gentamicin 270mg once in ED - blood Cx (09/11): Cornebacterium speices, no guidelines on sensitivities - blood Cx drawn from [facility] (09/12): no growth @ 48hrs - Vancomycin 1gm IVPB daily (started 09/11) --> discontinued - random Vanc (09/12): 24.7 - Vanc trough @ 0030am Jessica 09/14: 18.9 -> hold for one day - Vanc trough @ 0030am on Tue 09/19 before 8th dose - Zosyn 2.25gm IVPB q8 (started 09/12) -> discontinued - Trend with [facility] labs Hypertension - home Norvasc 10mg po daily - home Coreg 6.25mg po bid - home Clonidine 0.2mg po tid - home hydralazine 25mg PO TID --> decreased to Hydralazine 25mg BID - Monitor vitals Possible GI bleed - Hgb 8.2 on admission. Stool occult blood positive in ED - s/p transfusion 2u PRBC (09/11) - to receive another 2u PRBC in dialysis (09/13) - GI consulted: Dr. Elliott - recarmin appreciated unlikely upper GI bleed no GI intervention, including endoscopy, indicated at this time rec Pepcid over Protonix if GI ppx indicated signed off 09/11 PPx - DVT: Chemical AC CI d/t severe thrombocytopenia, SCDs - GI: CI d/t severe thrombocytopenia - Diet: Diabetic Soft diet - Labs with F dialysis - Palliative Care consulted: Continues to be Full Code without Advanced Directive. Encouraged to attend HD as outpatient although patient is still resistant. - Dispo: Patient has lost previous HD chair. has begun looking for an outpatient HD center who will accept him with [facility].
[2018-10-01] MEDS: Vitamins A & D Oint UD Foilpak TOP SCH ×2 (10:01→17:17)
[2018-10-02] MEDS: Ammonium Lactate 12% Lotion (225 g) EXT SCH ×4 (06:00→18:15)
[2018-10-02 07:04] LABS: EOS # 0.3 K/uL (0.0-0.7); HEMOGLOBIN 9.5 g/dL (12.0-18.0); NEUT # 3.5 K/uL (1.8-7.0); RBC 3.09 Mil/uL (4.40-5.90)
[2018-10-02 07:18] LABS: BASO % 0.3 % (0.0-2.0); EOS % 3.6 % (0.0-4.0); LYMPH # 3.5 K/uL (1.0-4.3); LYMPH % 43.1 % (20.0-40.0); MEAN CELL VOLUME 91.9 fL (80.0-94.0); MEAN CORPUSCULAR HEMOGLOBIN 30.7 pg (27.0-31.0); MEAN CORPUSCULAR HGB CONC 33.4 g/dL (33.0-37.0); MEAN PLATELET VOLUME 10.9 fL (7.2-11.7); MONO # 0.8 K/uL (0.0-0.8); RED CELL DISTRIBUTION WIDTH 22.1 % (11.5-14.5)
[2018-10-02 08:16] LABS: ALB/GLOB RATIO 1.2 (1.0-2.1); ALBUMIN 2.9 g/dL (3.5-5.0); CALCIUM 8.7 mg/dl (8.6-10.4)
--- NOTE | 2018-10-02 09:14 | CP.PCM.PN ---
<Roberto Fraire - Last Filed: 10/02/18 15:27> Subjective - Date & Time of Evaluation Date of Evaluation: 10/02/18 Time of Evaluation: 09:14 - Subjective Subjective: PGY-1 medicine progress note Pt was seen and examined at bedside. Pt is resting comfortably. He has no complaints at this time. Denies fever, chills, chest pain, sob, hemoptysis, epistaxis, abdominal pain, n/v/d, hematochezia, melena, hematuria, dizziness, lightheadedness, or any other bleeding. Objective - Vital Signs/Intake and Output Vital Signs (last 24 hours): Temp Pulse Resp BP Pulse Ox 98.2 F 62 20 136/79 99 10/02/18 08:00 10/02/18 08:00 10/02/18 08:00 10/02/18 08:00 10/02/18 08:00 Intake and Output: 10/02/18 10/02/18 06:59 18:59 Intake Total 400 Balance 400 - Medications Medications: Current Medications Acetaminophen (Tylenol 325mg Tab) 650 mg PO Q6 PRN PRN Reason: Pain, Mild (1-3) Last Admin: 09/29/18 17:53 Dose: 650 mg Amlodipine Besylate (Norvasc) 10 mg PO DAILY [facility] Last Admin: 10/01/18 10:01 Dose: 10 mg Calcium Acetate (Phoslo) 1,334 mg PO TIDCC [facility] Last Admin: 10/02/18 08:42 Dose: 1,334 mg Carvedilol (Coreg) 6.25 mg PO BID [facility] Last Admin: 10/01/18 17:16 Dose: 6.25 mg Clonidine HCl (Catapres) 0.2 mg PO TID [facility] Last Admin: 10/01/18 17:17 Dose: 0.2 mg Epoetin Rod (Procrit) 10,000 unit IV MWF [facility] Last Admin: 09/29/18 11:35 Dose: 10,000 unit Hydralazine HCl (Apresoline) 25 mg PO BID [facility] Last Admin: 10/01/18 17:17 Dose: 25 mg Lactic Acid (Lac-Hydrin 12% Lotion (225 G)) 0 gm EXT Q6 [facility] Last Admin: 10/02/18 06:00 Dose: Not Given Vitamin A (Vitamin A & D Oint Ud Foilpak) 1 ea TOP BID [facility] Last Admin: 10/01/18 17:17 Dose: 1 ea - Labs Labs: 10/02/18 06:43 10/02/18 06:43 PT 14.6 SECONDS (9.7-12.2) H 09/11/18 00:36 INR 1.3 09/11/18 00:36 APTT 35 SECONDS (21-34) H 09/11/18 00:36 - Constitutional Appears: Well, Non-toxic, No Acute Distress - Head Exam Head Exam: ATRAUMATIC, NORMAL INSPECTION - Eye Exam Eye Exam: EOMI - Respiratory Exam Respiratory Exam: Clear to Ausculation Bilateral. absent: Rales, Rhonchi, Wheezes - Cardiovascular Exam Cardiovascular Exam: REGULAR RHYTHM, +S1, +S2 - GI/Abdominal Exam GI & Abdominal Exam: Soft, Hyperactive Bowel Sounds. absent: Distended, Firm, Guarding, Rigid, Tenderness - Extremities Exam Extremities Exam: Normal Capillary Refill, Normal Inspection. 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 His symptoms have resolved. He is now awaiting placement for outpatient HD. 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 However, cannot r/o Alport's syndrome - has not been compliant with eculizumab for last 4 months - Hgb 8.2 on admission - Type and cross -> transfused 2u PRBC 09/11 -> Hgb 6.5 - Hgb 5.7 on 09/13 -> transfused 2u PRBC with HD -> Hgb 8.0 - Heme consulted: Dr. Benites - help appreciated - Trend with AM labs, most recent H/H 9.5/28.4 - continue to transfuse prn with HD - Plan to do labs on MWF with dialysis Severe Thrombocytopenia - likely 2/2 atypical HUS - has not been compliant with eculizumab for last 4 months - Plts 6 on admission - DDAVP 20mcg and Solumedrol 125mg given prior to 2u platelet transfusion 09/11 - Plts 5 -> another 2u Plts transfused 09/12 -> Plts 37 - 09/18/18: Given leukocytosis, case discussed with Dr. Benites who requested manual platelet count. Recommended 1 unit of platelet transfusion if manual platelet count is less than 20. Solumedrol 60mg IV q12, Solumedrol 60mg once 09/21/18, discontinued 09/22/18. Taper complete - Heme consulted: Dr. Benites - help appreciated - continue to transfuse prn - monitor for bleeding, no signs of bleeding at this time - Manual platelet count is 23 today (10/02) Leukocytosis - WBC is currently 8.0, resolved at of 10/02 - Blood Cx from port (09/12): neg x5 days - blood Cx (09/18): neg x5 days - UA 3+ protein, 2+ glucose - urine cultures 09/18 negative - stool culture, and stool studies including O&P, C diff negative - 09/20/18: Case discussed with Dr. Benites who agreed with plan to taper off Solumedrol since it might be causing leukocytosis. Recommended Solumedrol 60mg once tomorrow and then discontinuing on 09/22/18. Patient was treated with Solumedrol 60mg Q12 from 09/16/18 - 09/20/18 - repeat procalcitonin (09/26) 0.60 Right inguinal hernia - Easily reducible - CT Pelvis (09/26): Moderate lower abdominal/pelvic free fluid. Fluid and fat containing right inguinal hernia. Small fat containing left inguinal hernia. Partially imaged moderate constipation. - Continue to monitor for strangulation -> will consider surgery then - abdomen remains nontender Diarrhea, resolved - White count 8.0 today - stool culture negative, - Stool ova and parasite negative - CD negative - Continue to monitor, less likely infectious etiology ESRD on HD MWF - BUN/Cr: 72/10.7 on admission - elevated from previous admission of Cr of 7s - has not had dialysis in the last 4 months, still producing urine - Vasc Surgery consulted: Dr. Philomena goodson appreciated Existing R chest Permacath flushed and still functional Blood Cx if concerned for long indwelling infection No surgical intervention at this time as vascular access intact and new access involves high risk with low platelets Signed off 09/11 - Nephro consulted: Dr. Hamilton goodson appreciated Cont on MWF schedule EPO with HD - BUN/Cr is 60/10, will go for HD today (10/02/18) -Dr. Langley and I instructed the pt that he needs HD, and that it is difficult to obtain HD on [facility]. We explained to that until he obtains outpatient HD he must stay in the hospital. We talked with the pt the benefits and risks of HD, and pt understands, as well as the risks of leaving AMA. Pt would like to go home, but is willing to stay at this time. Code Sepsis - currently, pt is afebrile, not tachycardic and without leukocytosis - called for elevated WBC and tachycardia, suspected long time indwelling cath infection - CXR (09/11): mild pulmonary venous congestion - repeat CXR (09/12): pulmonary vascular congestion. No focal consolidation or pleural effusion. - no rashes, skin changes, sensitivities noticed on skin, including area surrounding catheter - UA (09/11): 3+ protein - VBG (09/11): pH 7.48, lactate 1.6 - procalcitonin (09/11): 0.85 - Given Zosyn 2.25gm and Vancomycin 1gm IV, Gentamicin 270mg once in ED - blood Cx (09/11): Cornebacterium spelaura, no guidelines on sensitivities - blood Cx drawn from [facility] (09/12): no growth @ 48hrs - Vancomycin 1gm IVPB daily (started 09/11) --> discontinued - random Vanc (09/12): 24.7 - Vanc trough @ 0030am Jessica 09/14: 18.9 -> hold for one day - Vanc trough @ 0030am on 09/19 before 8th dose - Zosyn 2.25gm IVPB q8 (started 09/12) -> discontinued Hypertension - home Norvasc 10mg po daily - home Coreg 6.25mg po bid - home Clonidine 0.2mg po tid - continue Hydralazine 25mg BID - Monitor vitals Possible GI bleed - Hgb 8.2 on admission. Stool occult blood positive in ED - s/p transfusion 2u PRBC (09/11) - to receive another 2u PRBC in dialysis (09/13) - GI consulted: Dr. Earl goodson appreciated unlikely upper GI bleed no GI intervention, including endoscopy, indicated at this time rec Pepcid over Protonix if GI ppx indicated signed off 09/11 PPx - DVT: Chemical AC CI d/t severe thrombocytopenia, SCDs - GI: CI d/t severe thrombocytopenia - Diet: Diabetic Soft diet - Labs with MWF dialysis - Palliative Care consulted: Continues to be Full Code without Advanced Directive. Encouraged to attend HD as outpatient although patient is still resistant. - Dispo: Patient has lost previous HD chair. CM has begun looking for an [facility] HD center who will accept him with [facility]. Case discussed with attending physician Roberto Fraire, PGY-1 <Paulette Langley - Last Filed: 10/02/18 16:24> Objective - Vital Signs/Intake and Output Vital Signs (last 24 hours): Temp Pulse Resp BP Pulse Ox 98.9 F 67 20 136/83 100 10/02/18 15:00 10/02/18 15:00 10/02/18 15:00 10/02/18 15:00 10/02/18 15:00 Intake and Output: 10/02/18 10/02/18 06:59 18:59 Intake Total 400 Balance 400 - Medications Medications: Current Medications Acetaminophen (Tylenol 325mg Tab) 650 mg PO Q6 PRN PRN Reason: Pain, Mild (1-3) Last Admin: 10/02/18 10:21 Dose: 650 mg Amlodipine Besylate (Norvasc) 10 mg PO DAILY [facility] Last Admin: 10/02/18 13:14 Dose: 10 mg Calcium Acetate (Phoslo) 1,334 mg PO TIDCC [facility] Last Admin: 10/02/18 13:13 Dose: 1,334 mg Carvedilol (Coreg) 6.25 mg PO BID [facility] Last Admin: 10/02/18 10:15 Dose: Not Given Clonidine HCl (Catapres) 0.2 mg PO TID [facility] Last Admin: 10/02/18 13:12 Dose: Not Given Epoetin Rod (Procrit) 10,000 unit IV MWF [facility] Last Admin: 10/02/18 11:11 Dose: 10,000 unit Hydralazine HCl (Apresoline) 25 mg PO BID [facility] Last Admin: 10/02/18 10:15 Dose: Not Given Lactic Acid (Lac-Hydrin 12% Lotion (225 G)) 0 gm EXT Q6 [facility] Last Admin: 10/02/18 12:02 Dose: Not Given Vitamin A (Vitamin A & D Oint Ud Foilpak) 1 ea TOP BID [facility] Last Admin: 10/02/18 10:14 Dose: Not Given - Labs Labs: 10/02/18 06:43 10/02/18 06:43 PT 14.6 SECONDS (9.7-12.2) H 09/11/18 00:36 INR 1.3 09/11/18 00:36 APTT 35 SECONDS (21-34) H 09/11/18 00:36 Attending/Attestation - Attestation I have personally seen and examined this patient.: Yes I have fully participated in the care of the patient.: Yes I have reviewed all pertinent clinical information, including history, physical exam and plan: Yes Notes (Text): Seen and examined by me. Today his platelets are 23. Denies bleeding patient wants to go home. 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 Patient may leave today Discussed with the resident\I agree with the documentation
[2018-10-02] MEDS: Vitamins A & D Oint UD Foilpak TOP SCH ×2 (10:14→18:13)
[2018-10-02] MEDS: Epoetin Alfa 10,000 unit/ml Dialysis IV SCH (11:11)
--- NOTE | 2018-10-02 13:12 | CP.PCM.PN ---
Subjective - Date & Time of Evaluation Date of Evaluation: 10/02/18 Time of Evaluation: 13:10 - Subjective Subjective: Alert Seen on dialysis BP sl elevated- mostly controlled Hg better Has lost weight- EDW adjusted Awaiting HD placement Objective - Vital Signs/Intake and Output Vital Signs (last 24 hours): Temp Pulse Resp BP Pulse Ox 97.5 F L 60 16 129/92 H 99 10/02/18 09:00 10/02/18 09:00 10/02/18 09:00 10/02/18 11:15 10/02/18 09:00 Intake and Output: 10/02/18 10/02/18 06:59 18:59 Intake Total 400 Balance 400 - Medications Medications: Current Medications Acetaminophen (Tylenol 325mg Tab) 650 mg PO Q6 PRN PRN Reason: Pain, Mild (1-3) Last Admin: 10/02/18 10:21 Dose: 650 mg Amlodipine Besylate (Norvasc) 10 mg PO DAILY [facility] Last Admin: 10/02/18 10:14 Dose: Not Given Calcium Acetate (Phoslo) 1,334 mg PO TIDCC [facility] Last Admin: 10/02/18 12:02 Dose: Not Given Carvedilol (Coreg) 6.25 mg PO BID [facility] Last Admin: 10/02/18 10:15 Dose: Not Given Clonidine HCl (Catapres) 0.2 mg PO TID [facility] Last Admin: 10/02/18 12:32 Dose: 0.2 mg Epoetin Rod (Procrit) 10,000 unit IV MWF [facility] Last Admin: 10/02/18 11:11 Dose: 10,000 unit Hydralazine HCl (Apresoline) 25 mg PO BID [facility] Last Admin: 10/02/18 10:15 Dose: Not Given Lactic Acid (Lac-Hydrin 12% Lotion (225 G)) 0 gm EXT Q6 [facility] Last Admin: 10/02/18 12:02 Dose: Not Given Vitamin A (Vitamin A & D Oint Ud Foilpak) 1 ea TOP BID [facility] Last Admin: 10/02/18 10:14 Dose: Not Given - Labs Labs: 10/02/18 06:43 10/02/18 06:43 PT 14.6 SECONDS (9.7-12.2) H 09/11/18 00:36 INR 1.3 09/11/18 00:36 APTT 35 SECONDS (21-34) H 09/11/18 00:36 - Constitutional Appears: No Acute Distress, Chronically Ill - Head Exam Head Exam: ATRAUMATIC, NORMAL INSPECTION - Eye Exam Eye Exam: EOMI, Normal appearance - Neck Exam Neck Exam: Normal Inspection. absent: Tenderness - Respiratory Exam Respiratory Exam: Clear to Ausculation Bilateral, NORMAL BREATHING PATTERN - Cardiovascular Exam Cardiovascular Exam: REGULAR RHYTHM, +S1 - GI/Abdominal Exam GI & Abdominal Exam: Soft. absent: Tenderness - Extremities Exam Extremities Exam: Normal Inspection. absent: Tenderness - Neurological Exam Neurological Exam: Awake, CN II-XII Intact - Skin Skin Exam: Dry, Warm Assessment and Plan (1) Gastrointestinal hemorrhage Status: Acute (2) Thrombocytopenia Status: Acute (3) Dialysis catheter clot or failure Status: Acute (4) ESRD (end stage renal disease) Status: Acute (5) Hemolytic uremic syndrome Status: Acute (6) Hypertensive chronic kidney disease with stage 5 chronic kidney disease or end stage renal disease Status: Acute (7) Thrombocytopenia Status: Acute - Assessment and Plan (Free Text) Plan: Same HD MWF Monitor BP Await HD placement
[2018-10-03] MEDS: Ammonium Lactate 12% Lotion (225 g) EXT SCH ×4 (07:00→17:17)
[2018-10-03 07:18] LABS: BASO % 0.5 % (0.0-2.0); EOS # 0.2 K/uL (0.0-0.7); EOS % 2.3 % (0.0-4.0); HEMOGLOBIN 10.1 g/dL (12.0-18.0); LYMPH # 1.5 K/uL (1.0-4.3); LYMPH % 20.2 % (20.0-40.0); MEAN CELL VOLUME 91.8 fL (80.0-94.0); MEAN CORPUSCULAR HEMOGLOBIN 30.7 pg (27.0-31.0); MEAN CORPUSCULAR HGB CONC 33.5 g/dL (33.0-37.0); MEAN PLATELET VOLUME 11.7 fL (7.2-11.7); MONO # 0.8 K/uL (0.0-0.8); RBC 3.27 Mil/uL (4.40-5.90); RED CELL DISTRIBUTION WIDTH 22.3 % (11.5-14.5); WHITE BLOOD COUNT 7.5 K/uL (4.8-10.8)
[2018-10-03 08:21] LABS: ALB/GLOB RATIO 1.3 (1.0-2.1); ALBUMIN 3.2 g/dL (3.5-5.0); CALCIUM 8.5 mg/dl (8.6-10.4)
[2018-10-03] MEDS: Vitamins A & D Oint UD Foilpak TOP SCH ×3 (08:51→17:40)
--- NOTE | 2018-10-03 09:28 | CP.PCM.PN ---
<Roberto Fraire - Last Filed: 10/03/18 16:32> Subjective - Date & Time of Evaluation Date of Evaluation: 10/03/18 Time of Evaluation: 09:00 - Subjective Subjective: PGY-1 medicine progress note Translation obtained via [employer] # [id number] Pt was seen and examined at bedside. Pt is resting comfortably, watching tv on cell phone. Pt is complaining of headache, which is typical after dialysis. It is in the back of his head, non radiating, 05/23. Pt states that the headache usually lasts a day. Denies fever, chills, chest pain, sob, hemoptysis, epistaxis, abdominal pain, n/v/d, hematochezia, melena, hematuria, dizziness, lightheadedness, visual changes, focal weakness, or any other bleeding. Objective - Vital Signs/Intake and Output Vital Signs (last 24 hours): Temp Pulse Resp BP Pulse Ox 98.5 F 74 20 129/87 99 10/03/18 07:58 10/03/18 07:58 10/03/18 07:58 10/03/18 07:58 10/03/18 07:58 Intake and Output: 10/03/18 10/03/18 06:59 18:59 Intake Total 300 200 Balance 300 200 - Medications Medications: Current Medications Acetaminophen (Tylenol 325mg Tab) 650 mg PO Q6 PRN PRN Reason: Pain, Mild (1-3) Last Admin: 10/03/18 08:53 Dose: 650 mg Amlodipine Besylate (Norvasc) 10 mg PO DAILY [facility] Last Admin: 10/03/18 09:12 Dose: 10 mg Calcium Acetate (Phoslo) 1,334 mg PO TIDCC [facility] Last Admin: 10/03/18 08:49 Dose: 1,334 mg Carvedilol (Coreg) 6.25 mg PO BID [facility] Last Admin: 10/03/18 09:12 Dose: 6.25 mg Clonidine HCl (Catapres) 0.2 mg PO TID [facility] Last Admin: 10/02/18 18:12 Dose: 0.2 mg Epoetin Rod (Procrit) 10,000 unit IV MWF [facility] Last Admin: 10/02/18 11:11 Dose: 10,000 unit Hydralazine HCl (Apresoline) 25 mg PO BID [facility] Last Admin: 10/02/18 18:12 Dose: 25 mg Lactic Acid (Lac-Hydrin 12% Lotion (225 G)) 0 gm EXT Q6 [facility] Last Admin: 10/03/18 07:00 Dose: 1 applic Vitamin A (Vitamin A & D Oint Ud Foilpak) 1 ea TOP BID [facility] Last Admin: 10/03/18 08:51 Dose: 1 ea - Labs Labs: 10/03/18 07:11 10/03/18 07:11 PT 14.6 SECONDS (9.7-12.2) H 09/11/18 00:36 INR 1.3 09/11/18 00:36 APTT 35 SECONDS (21-34) H 09/11/18 00:36 - Head Exam Head Exam: ATRAUMATIC, NORMAL INSPECTION - Eye Exam Eye Exam: EOMI - ENT Exam ENT Exam: Mucous Membranes Moist - Respiratory Exam Respiratory Exam: Clear to Ausculation Bilateral. absent: Rales, Rhonchi, Wheezes - Cardiovascular Exam Cardiovascular Exam: REGULAR RHYTHM, +S1, +S2 - GI/Abdominal Exam GI & Abdominal Exam: Soft, Normal Bowel Sounds. absent: Distended, Firm, Guarding, Rigid, Tenderness - Extremities Exam Extremities Exam: Normal Capillary Refill, Normal Inspection. 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 His symptoms have resolved. He is now awaiting placement for outpatient HD. 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 However, cannot r/o Alport's syndrome - has not been compliant with eculizumab for last 4 months - Hgb 8.2 on admission - Type and cross -> transfused 2u PRBC 09/11 -> Hgb 6.5 - Hgb 5.7 on 09/13 -> transfused 2u PRBC with HD -> Hgb 8.0 - Heme consulted: Dr. Kamari falk appreciated - Trend with AM labs, most recent H/H - continue to transfuse prn with HD - Plan to do labs on MWF with dialysis Severe Thrombocytopenia - likely 2/2 atypical HUS - has not been compliant with eculizumab for last 4 months - Plts 6 on admission - DDAVP 20mcg and Solumedrol 125mg given prior to 2u platelet transfusion 09/11 - Plts 5 -> another 2u Plts transfused 09/12 -> Plts 37 - 09/18/18: Given leukocytosis, case discussed with Dr. Benites who requested manual platelet count. Recommended 1 unit of platelet transfusion if manual platelet count is less than 20. Solumedrol 60mg IV q12, Solumedrol 60mg once 09/21/18, discontinued 09/22/18. Taper complete - Heme consulted: Dr. Benites - dileep appreciated - continue to transfuse prn - monitor for bleeding, no signs of bleeding at this time - Manual platelet count is 27 today (10/03) Leukocytosis - WBC is currently 7.5, resolved as of 10/02 - Blood Cx from port (09/12): neg x5 days - blood Cx (09/18): neg x5 days - UA 3+ protein, 2+ glucose - urine cultures 09/18 negative - stool culture, and stool studies including O&P, C diff negative - 09/20/18: Case discussed with Dr. Benites who agreed with plan to taper off Solumedrol since it might be causing leukocytosis. Recommended Solumedrol 60mg once tomorrow and then discontinuing on 09/22/18. Patient was treated with Solumedrol 60mg Q12 from 09/16/18 - 09/20/18 - repeat procalcitonin (09/26) 0.60 Right inguinal hernia - Easily reducible - CT Pelvis (09/26): Moderate lower abdominal/pelvic free fluid. Fluid and fat containing right inguinal hernia. Small fat containing left inguinal hernia. Partially imaged moderate constipation. - Continue to monitor for strangulation -> will consider surgery then - abdomen remains nontender Diarrhea, resolved - White count 7.5 today - stool culture negative, - Stool ova and parasite negative - CD negative - Continue to monitor, less likely infectious etiology ESRD on HD MWF - BUN/Cr: 72/10.7 on admission - elevated from previous admission of Cr of 7s - has not had dialysis in the last 4 months, still producing urine - Vasc Surgery consulted: Dr. Philomena goodson appreciated Existing R chest Permacath flushed and still functional Blood Cx if concerned for long indwelling infection No surgical intervention at this time as vascular access intact and new access involves high risk with low platelets Signed off 09/11 - Nephro consulted: Dr. Hamilton goodson appreciated Cont on MWF schedule EPO with HD - BUN/Cr is 42/8.1, will go for HD tomorrow (10/04/18) -Dr. Langley and I discussed with the pt at length his need for HD via [employer] # [id number]. We instructed the pt that he needs HD, and that it is difficult to obtain HD on [place] [facility]. We explained to him that until he obtains outpatient HD he must stay in the hospital unless he wants to leave AMA. We talked with the pt the benefits and risks of HD, and pt understands, as well as the risks of leaving AMA. Pt shows understanding of his condition, and is willing to stay in the hospital at this time. Code Sepsis - currently, pt is afebrile, not tachycardic and without leukocytosis - called for elevated WBC and tachycardia, suspected long time indwelling cath infection - CXR (09/11): mild pulmonary venous congestion - repeat CXR (09/12): pulmonary vascular congestion. No focal consolidation or pleural effusion. - no rashes, skin changes, sensitivities noticed on skin, including area surrounding catheter - UA (09/11): 3+ protein - VBG (09/11): pH 7.48, lactate 1.6 - procalcitonin (09/11): 0.85 - Given Zosyn 2.25gm and Vancomycin 1gm IV, Gentamicin 270mg once in ED - blood Cx (09/11): Cornebacterium spelaura, no guidelines on sensitivities - blood Cx drawn from Permacath (09/12): no growth @ 48hrs - Vancomycin 1gm IVPB daily (started 09/11) --> discontinued - random Vanc (09/12): 24.7 - Vanc trough @ 0030am Jessica 09/14: 18.9 -> hold for one day - Vanc trough @ 0030am on 09/19 before 8th dose - Zosyn 2.25gm IVPB q8 (started 09/12) -> discontinued Hypertension - home Norvasc 10mg po daily - home Coreg 6.25mg po bid - home Clonidine 0.2mg po tid - continue Hydralazine 25mg BID - Continue to monitor vitals Headache s/p dialysis - Tylenol 650 mg PO Q6h - pt remains normotensive - continue to monitor Possible GI bleed - Hgb 8.2 on admission. Stool occult blood positive in ED - s/p transfusion 2u PRBC (09/11) - to receive another 2u PRBC in dialysis (09/13) - GI consulted: Dr. Elliott - kellee appreciated unlikely upper GI bleed no GI intervention, including endoscopy, indicated at this time rec Pepcid over Protonix if GI ppx indicated signed off 09/11 PPx - DVT: Chemical AC CI d/t severe thrombocytopenia, SCDs - GI: CI d/t severe thrombocytopenia - Diet: Diabetic Soft diet - Labs with MWF dialysis - Palliative Care consulted: Continues to be Full Code without Advanced Directive. Encouraged to attend HD as outpatient although patient is still resistant. - Dispo: Patient has lost previous HD chair. CM has begun looking for an outpatient HD center who will accept him with [facility]. Case discussed with Dr. Shivam Fraire, PGY-1 <Paulette Langley - Last Filed: 10/04/18 09:57> Objective - Vital Signs/Intake and Output Vital Signs (last 24 hours): Temp Pulse Resp BP Pulse Ox 98.8 F 70 20 132/84 98 10/04/18 07:47 10/04/18 07:47 10/04/18 07:47 10/04/18 07:47 10/04/18 07:47 Intake and Output: 10/04/18 10/04/18 06:59 18:59 Intake Total 200 Balance 200 - Medications Medications: Current Medications Acetaminophen (Tylenol 325mg Tab) 650 mg PO Q6 PRN PRN Reason: Pain, Mild (1-3) Last Admin: 10/03/18 08:53 Dose: 650 mg Amlodipine Besylate (Norvasc) 10 mg PO DAILY [facility] Last Admin: 10/03/18 09:12 Dose: 10 mg Calcium Acetate (Phoslo) 1,334 mg PO TIDCC [facility] Last Admin: 10/04/18 08:18 Dose: 1,334 mg Carvedilol (Coreg) 6.25 mg PO BID [facility] Last Admin: 10/03/18 17:12 Dose: 6.25 mg Clonidine HCl (Catapres) 0.2 mg PO TID [facility] Last Admin: 10/03/18 17:12 Dose: 0.2 mg Epoetin Rod (Procrit) 10,000 unit IV MWF [facility] Last Admin: 10/02/18 11:11 Dose: 10,000 unit Hydralazine HCl (Apresoline) 25 mg PO BID [facility] Last Admin: 10/03/18 17:12 Dose: 25 mg Lactic Acid (Lac-Hydrin 12% Lotion (225 G)) 0 gm EXT Q6 [facility] Last Admin: 10/04/18 07:04 Dose: 1 applic Vitamin A (Vitamin A & D Oint Ud Foilpak) 1 ea TOP BID [facility] Last Admin: 10/03/18 17:40 Dose: 1 ea - Labs Labs: 10/03/18 07:11 10/03/18 07:11 PT 14.6 SECONDS (9.7-12.2) H 09/11/18 00:36 INR 1.3 09/11/18 00:36 APTT 35 SECONDS (21-34) H 09/11/18 00:36 Attending/Attestation - Attestation I have personally seen and examined this patient.: Yes I have fully participated in the care of the patient.: Yes I have reviewed all pertinent clinical information, including history, physical exam and plan: Yes Notes (Text): seen and examined Had long discussion about the plan. Out patient dialysis arrangement. Patient wants to go home AMA. State that he doesn't want to loose his apartment and wants to go back to work before loosing his job. Patient was advised to come to ER if he get sick I agree with the resident's documentation
--- NOTE | 2018-10-03 10:00 | CP.PCM.PN ---
Subjective - Date & Time of Evaluation Date of Evaluation: 10/03/18 Time of Evaluation: 10:00 - Subjective Subjective: seen and examined no events no complaints 10 point ROS negative Objective - Vital Signs/Intake and Output Vital Signs (last 24 hours): Temp Pulse Resp BP Pulse Ox 98.5 F 74 20 129/87 99 10/03/18 07:58 10/03/18 07:58 10/03/18 07:58 10/03/18 07:58 10/03/18 07:58 Intake and Output: 10/03/18 10/03/18 06:59 18:59 Intake Total 300 200 Balance 300 200 - Medications Medications: Current Medications Acetaminophen (Tylenol 325mg Tab) 650 mg PO Q6 PRN PRN Reason: Pain, Mild (1-3) Last Admin: 10/03/18 08:53 Dose: 650 mg Amlodipine Besylate (Norvasc) 10 mg PO DAILY [facility] Last Admin: 10/03/18 09:12 Dose: 10 mg Calcium Acetate (Phoslo) 1,334 mg PO TIDCC [facility] Last Admin: 10/03/18 08:49 Dose: 1,334 mg Carvedilol (Coreg) 6.25 mg PO BID [facility] Last Admin: 10/03/18 09:12 Dose: 6.25 mg Clonidine HCl (Catapres) 0.2 mg PO TID [facility] Last Admin: 10/02/18 18:12 Dose: 0.2 mg Epoetin Rod (Procrit) 10,000 unit IV MWF [facility] Last Admin: 10/02/18 11:11 Dose: 10,000 unit Hydralazine HCl (Apresoline) 25 mg PO BID [facility] Last Admin: 10/02/18 18:12 Dose: 25 mg Lactic Acid (Lac-Hydrin 12% Lotion (225 G)) 0 gm EXT Q6 [facility] Last Admin: 10/03/18 07:00 Dose: 1 applic Vitamin A (Vitamin A & D Oint Ud Foilpak) 1 ea TOP BID [facility] Last Admin: 10/03/18 08:51 Dose: 1 ea - Labs Labs: 10/03/18 07:11 10/03/18 07:11 PT 14.6 SECONDS (9.7-12.2) H 09/11/18 00:36 INR 1.3 09/11/18 00:36 APTT 35 SECONDS (21-34) H 09/11/18 00:36 - Constitutional Appears: Non-toxic, No Acute Distress - Head Exam Head Exam: NORMAL INSPECTION, NORMOCEPHALIC - Eye Exam Eye Exam: Normal appearance, PERRL - ENT Exam ENT Exam: Mucous Membranes Moist, Normal Exam - Neck Exam Neck Exam: Full ROM, Normal Inspection - Respiratory Exam Respiratory Exam: Clear to Ausculation Bilateral, NORMAL BREATHING PATTERN - Cardiovascular Exam Cardiovascular Exam: REGULAR RHYTHM, RRR - GI/Abdominal Exam GI & Abdominal Exam: Distended, Soft, Normal Bowel Sounds - Extremities Exam Extremities Exam: Full ROM, Normal Inspection - Neurological Exam Neurological Exam: Alert, Awake, Oriented x3 - Psychiatric Exam Psychiatric exam: Normal Affect, Normal Mood - Skin Skin Exam: Dry, Intact Assessment and Plan (1) Anemia Status: Acute (2) Atypical hemolytic uremic syndrome Status: Acute (3) ESRD (end stage renal disease) Status: Acute (4) Thrombocytopenia Status: Chronic - Assessment and Plan (Free Text) Assessment: hd mwf bp acceptable monitor hgb outpt placement
[2018-10-04] MEDS: Ammonium Lactate 12% Lotion (225 g) EXT SCH ×4 (07:04→17:22)
--- NOTE | 2018-10-04 09:16 | CP.PCM.PN ---
Subjective - Date & Time of Evaluation Date of Evaluation: 10/04/18 Time of Evaluation: 08:45 - Subjective Subjective: PGY1 Medicine Progress Note for Dr. Langley. Patient seen and examined at bedside. No overnight events reported. Pt lying in bed, receving dialysis comfortably. Patient states he currently does not have any complaints. Patient denies chest pain, SOB, nausea, vomiting, diarrhea, constipation. Patient states he is producing urine normally. Objective - Vital Signs/Intake and Output Vital Signs (last 24 hours): Temp Pulse Resp BP Pulse Ox 98.8 F 70 20 132/84 98 10/04/18 07:47 10/04/18 07:47 10/04/18 07:47 10/04/18 07:47 10/04/18 07:47 Intake and Output: 10/04/18 10/04/18 06:59 18:59 Intake Total 200 Balance 200 - Medications Medications: Current Medications Acetaminophen (Tylenol 325mg Tab) 650 mg PO Q6 PRN PRN Reason: Pain, Mild (1-3) Last Admin: 10/03/18 08:53 Dose: 650 mg Amlodipine Besylate (Norvasc) 10 mg PO DAILY [facility] Last Admin: 10/03/18 09:12 Dose: 10 mg Calcium Acetate (Phoslo) 1,334 mg PO TIDCC [facility] Last Admin: 10/04/18 08:18 Dose: 1,334 mg Carvedilol (Coreg) 6.25 mg PO BID [facility] Last Admin: 10/03/18 17:12 Dose: 6.25 mg Clonidine HCl (Catapres) 0.2 mg PO TID [facility] Last Admin: 10/03/18 17:12 Dose: 0.2 mg Epoetin Rod (Procrit) 10,000 unit IV MWF [facility] Last Admin: 10/02/18 11:11 Dose: 10,000 unit Hydralazine HCl (Apresoline) 25 mg PO BID [facility] Last Admin: 10/03/18 17:12 Dose: 25 mg Lactic Acid (Lac-Hydrin 12% Lotion (225 G)) 0 gm EXT Q6 [facility] Last Admin: 10/04/18 07:04 Dose: 1 applic Vitamin A (Vitamin A & D Oint Ud Foilpak) 1 ea TOP BID [facility] Last Admin: 10/03/18 17:40 Dose: 1 ea - Labs Labs: 10/03/18 07:11 10/03/18 07:11 PT 14.6 SECONDS (9.7-12.2) H 09/11/18 00:36 INR 1.3 09/11/18 00:36 APTT 35 SECONDS (21-34) H 09/11/18 00:36 - Constitutional Appears: Non-toxic, No Acute Distress - Head Exam Head Exam: ATRAUMATIC, NORMAL INSPECTION, NORMOCEPHALIC - Eye Exam Eye Exam: EOMI, Normal appearance - ENT Exam ENT Exam: Mucous Membranes Moist - Respiratory Exam Respiratory Exam: Clear to Ausculation Bilateral, NORMAL BREATHING PATTERN. absent: Rales, Rhonchi, Wheezes - Cardiovascular Exam Cardiovascular Exam: +S1, +S2. absent: Murmur - GI/Abdominal Exam GI & Abdominal Exam: Soft, Normal Bowel Sounds. absent: Firm, Rigid - Extremities Exam Extremities Exam: Full ROM, Normal Inspection. 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 His symptoms have resolved. 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 However, cannot r/o Alport's syndrome - has not been compliant with eculizumab for last 4 months - Hgb 8.2 on admission - Type and cross -> transfused 2u PRBC 09/11 -> Hgb 6.5 - Hgb 5.7 on 09/13 -> transfused 2u PRBC with HD -> Hgb 8.0 - Heme consulted: Dr. Benites - help appreciated - Trend with AM labs, most recent H/H 10.3/30.8 - continue to transfuse prn with HD - Plan to do labs on MWF with dialysis Severe Thrombocytopenia - likely 2/2 atypical HUS - has not been compliant with eculizumab for last 4 months - Plts 6 on admission - DDAVP 20mcg and Solumedrol 125mg given prior to 2u platelet transfusion 09/11 - Plts 5 -> another 2u Plts transfused 09/12 -> Plts 37 - 09/18/18: Given leukocytosis, case discussed with Dr. Benites who requested manual platelet count. Recommended 1 unit of platelet transfusion if manual platelet count is less than 20. Solumedrol 60mg IV q12, Solumedrol 60mg once 09/21/18, discontinued 09/22/18. Taper complete - Heme consulted: Dr. Benites - help appreciated - continue to transfuse prn - monitor for bleeding, no signs of bleeding at this time - Manual platelet count is pending today (10/04) ESRD on HD MWF - BUN/Cr: 72/10.7 on admission - elevated from previous admission of Cr of 7s - has not had dialysis in the last 4 months, still producing urine - Vasc Surgery consulted: Dr. Philomena goodson appreciated Existing R chest Permacath flushed and still functional Blood Cx if concerned for long indwelling infection No surgical intervention at this time as vascular access intact and new access involves high risk with low platelets Signed off 09/11 - Nephro consulted: Dr. Hamilton goodson appreciated Cont on MWF schedule EPO with HD - BUN/Cr is 55/9.5, dialysis today (10/04/18) - 10/03: Dr. Langley and resident discussed with the pt at length his need for HD via [facility] # [id number]. "We instructed the pt that he needs HD, and that it is difficult to obtain HD on [facility]. We explained to him that until he obtains outpatient HD he must stay in the hospital unless he wants to leave AMA. We talked with the pt the benefits and risks of HD, and pt understands, as well as the risks of leaving AMA. Pt shows understanding of his condition, and is willing to stay in the hospital at this time." Right inguinal hernia - Easily reducible - CT Pelvis (09/26): Moderate lower abdominal/pelvic free fluid. Fluid and fat containing right inguinal hernia. Small fat containing left inguinal hernia. Partially imaged moderate constipation. - Continue to monitor for strangulation -> will consider surgery then - abdomen remains nontender Hypertension - home Norvasc 10mg po daily - home Coreg 6.25mg po bid - home Clonidine 0.2mg po tid - continue Hydralazine 25mg BID - Continue to monitor vitals Headache s/p dialysis - Tylenol 650 mg PO Q6h - pt remains normotensive - continue to monitor Leukocytosis Resolved - WBC is currently 7.5, resolved as of 10/02 - Blood Cx from port (09/12): neg x5 days - blood Cx (09/18): neg x5 days - UA 3+ protein, 2+ glucose - urine cultures 09/18 negative - stool culture, and stool studies including O&P, C diff negative - 09/20/18: Case discussed with Dr. Benites who agreed with plan to taper off Solumedrol since it might be causing leukocytosis. Recommended Solumedrol 60mg once tomorrow and then discontinuing on 09/22/18. Patient was treated with Solumedrol 60mg Q12 from 09/16/18 - 09/20/18 - repeat procalcitonin (09/26) 0.60 Diarrhea Resolved - White count 7.5 today - stool culture negative, - Stool ova and parasite negative - CD negative - Continue to monitor, less likely infectious etiology Possible GI bleed Resolved - Hgb 8.2 on admission. Stool occult blood positive in ED - s/p transfusion 2u PRBC (09/11) - to receive another 2u PRBC in dialysis (09/13) - GI consulted: Dr. Elliott - recs appreciated unlikely upper GI bleed no GI intervention, including endoscopy, indicated at this time rec Pepcid over Protonix if GI ppx indicated signed off 09/11 Code Sepsis Resolved - currently, pt is afebrile, not tachycardic and without leukocytosis - called for elevated WBC and tachycardia, suspected long time indwelling cath infection - CXR (09/11): mild pulmonary venous congestion - repeat CXR (09/12): pulmonary vascular congestion. No focal consolidation or pleural effusion. - no rashes, skin changes, sensitivities noticed on skin, including area surrounding catheter - UA (09/11): 3+ protein - VBG (09/11): pH 7.48, lactate 1.6 - procalcitonin (09/11): 0.85 - Given Zosyn 2.25gm and Vancomycin 1gm IV, Gentamicin 270mg once in ED - blood Cx (09/11): Cornebacterium trevon, no guidelines on sensitivities - blood Cx drawn from [facility] (09/12): no growth @ 48hrs - Vancomycin 1gm IVPB daily (started 09/11) --> discontinued - random Vanc (09/12): 24.7 - Vanc trough @ 0030am Jessica 09/14: 18.9 -> hold for one day - Vanc trough @ 0030am on 09/19 before 8th dose - Zosyn 2.25gm IVPB q8 (started 09/12) -> discontinued PPx - DVT: Chemical AC CI d/t severe thrombocytopenia, SCDs - GI: CI d/t severe thrombocytopenia - Diet: Diabetic Soft diet - Labs with MWF dialysis - Palliative Care consulted: Continues to be Full Code without Advanced Directive. Encouraged to attend HD as outpatient although patient is still resistant. - Dispo: Patient has lost previous HD chair. CM has begun looking for an outpatient HD center who will accept him with [facility]. D/w Dr. Shivam Cronin, PGY-1
[2018-10-04 10:25] LABS: EOS # 0.2 K/uL (0.0-0.7); HEMOGLOBIN 10.3 g/dL (12.0-18.0); NRBC % 0.1 % (0.0-2.0)
[2018-10-04 10:44] LABS: ALB/GLOB RATIO 1.3 (1.0-2.1); ALBUMIN 3.4 g/dL (3.5-5.0); CALCIUM 8.9 mg/dl (8.6-10.4)
[2018-10-04] MEDS: Vitamins A & D Oint UD Foilpak TOP SCH ×2 (11:00→17:43)
[2018-10-04 11:02] LABS: BASO # 0.1 K/uL (0.0-0.2); BASO % 1.9 % (0.0-2.0); EOS % 2.9 % (0.0-4.0); LYMPH # 2.6 K/uL (1.0-4.3); MEAN CELL VOLUME 92.5 fL (80.0-94.0); MEAN CORPUSCULAR HEMOGLOBIN 30.8 pg (27.0-31.0); MEAN CORPUSCULAR HGB CONC 33.3 g/dL (33.0-37.0); MEAN PLATELET VOLUME 12.6 fL (7.2-11.7); MONO # 0.7 K/uL (0.0-0.8); MONO % 9.2 % (0.0-10.0); RBC 3.33 Mil/uL (4.40-5.90); WHITE BLOOD COUNT 7.7 K/uL (4.8-10.8)
[2018-10-04] MEDS: Epoetin Alfa 10,000 unit/ml Dialysis IV SCH (12:51)
--- NOTE | 2018-10-04 14:49 | CP.PCM.PN ---
Subjective - Date & Time of Evaluation Date of Evaluation: 10/04/18 Time of Evaluation: 14:48 - Subjective Subjective: for HD today c/o headache not toxic Objective - Vital Signs/Intake and Output Vital Signs (last 24 hours): Temp Pulse Resp BP Pulse Ox 98.7 F 71 16 131/87 98 10/04/18 13:10 10/04/18 13:10 10/04/18 13:10 10/04/18 13:35 10/04/18 13:10 Intake and Output: 10/04/18 10/04/18 06:59 18:59 Intake Total 200 300 Balance 200 300 - Medications Medications: Current Medications Acetaminophen (Tylenol 325mg Tab) 650 mg PO Q6 PRN PRN Reason: Pain, Mild (1-3) Last Admin: 10/04/18 13:39 Dose: 650 mg Amlodipine Besylate (Norvasc) 10 mg PO DAILY [facility] Last Admin: 10/04/18 10:59 Dose: Not Given Calcium Acetate (Phoslo) 1,334 mg PO TIDCC [facility] Last Admin: 10/04/18 12:41 Dose: Not Given Carvedilol (Coreg) 6.25 mg PO BID [facility] Last Admin: 10/04/18 10:59 Dose: Not Given Clonidine HCl (Catapres) 0.2 mg PO TID [facility] Last Admin: 10/04/18 13:35 Dose: 0.2 mg Epoetin Rod (Procrit) 10,000 unit IV MWF [facility] Last Admin: 10/04/18 12:51 Dose: 10,000 unit Hydralazine HCl (Apresoline) 25 mg PO BID [facility] Last Admin: 10/04/18 10:59 Dose: Not Given Lactic Acid (Lac-Hydrin 12% Lotion (225 G)) 0 gm EXT Q6 [facility] Last Admin: 10/04/18 12:41 Dose: Not Given Vitamin A (Vitamin A & D Oint Ud Foilpak) 1 ea TOP BID [facility] Last Admin: 10/04/18 11:00 Dose: Not Given - Labs Labs: 10/04/18 10:16 10/04/18 10:16 PT 14.6 SECONDS (9.7-12.2) H 09/11/18 00:36 INR 1.3 09/11/18 00:36 APTT 35 SECONDS (21-34) H 09/11/18 00:36 - Constitutional Appears: Non-toxic, Chronically Ill - Head Exam Head Exam: ATRAUMATIC, NORMAL INSPECTION - Eye Exam Eye Exam: EOMI - Neck Exam Neck Exam: Full ROM. absent: Lymphadenopathy - Respiratory Exam Respiratory Exam: NORMAL BREATHING PATTERN - Cardiovascular Exam Cardiovascular Exam: REGULAR RHYTHM. absent: Rubs - GI/Abdominal Exam GI & Abdominal Exam: Soft. absent: Tenderness - Extremities Exam Extremities Exam: absent: Pedal Edema - Neurological Exam Neurological Exam: Alert, Awake Assessment and Plan - Assessment and Plan (Free Text) Assessment: maint HD placement pending Heme recommendations for chronic thrombocytopenia
[2018-10-05] MEDS: Ammonium Lactate 12% Lotion (225 g) EXT SCH ×4 (00:02→18:04)
--- NOTE | 2018-10-05 07:35 | CP.PCM.PN ---
<Jose Cronin - Last Filed: 10/05/18 19:28> Subjective - Date & Time of Evaluation Date of Evaluation: 10/05/18 Time of Evaluation: 13:30 - Subjective Subjective: PGY1 Medicine Progress Note for Dr. Langley. Patient seen and examined at bedside. No overnight events reported. Pt lying in bed, comfortably. Patient states he currently does not have any complaints. Patient denies chest pain, SOB, nausea, vomiting, diarrhea, constipation. Patient states he is producing urine normally. Pt reports minor headaches, but does not want any medication for it. Objective - Vital Signs/Intake and Output Vital Signs (last 24 hours): Temp Pulse Resp BP Pulse Ox 98.2 F 64 16 111/74 99 10/04/18 23:00 10/04/18 23:00 10/04/18 23:00 10/04/18 23:00 10/04/18 23:00 Intake and Output: 10/05/18 10/05/18 06:59 18:59 Intake Total 200 Balance 200 - Medications Medications: Current Medications Acetaminophen (Tylenol 325mg Tab) 650 mg PO Q6 PRN PRN Reason: Pain, Mild (1-3) Last Admin: 10/04/18 13:39 Dose: 650 mg Amlodipine Besylate (Norvasc) 10 mg PO DAILY [facility] Last Admin: 10/04/18 10:59 Dose: Not Given Calcium Acetate (Phoslo) 1,334 mg PO TIDCC [facility] Last Admin: 10/04/18 17:21 Dose: 1,334 mg Carvedilol (Coreg) 6.25 mg PO BID [facility] Last Admin: 10/04/18 17:21 Dose: 6.25 mg Clonidine HCl (Catapres) 0.2 mg PO TID [facility] Last Admin: 10/04/18 17:21 Dose: 0.2 mg Epoetin Rod (Procrit) 10,000 unit IV MWF [facility] Last Admin: 10/04/18 12:51 Dose: 10,000 unit Hydralazine HCl (Apresoline) 25 mg PO BID [facility] Last Admin: 10/04/18 17:21 Dose: 25 mg Lactic Acid (Lac-Hydrin 12% Lotion (225 G)) 0 gm EXT Q6 [facility] Last Admin: 10/05/18 06:03 Dose: 1 applic Vitamin A (Vitamin A & D Oint Ud Foilpak) 1 ea TOP BID [facility] Last Admin: 10/04/18 17:43 Dose: 1 ea - Labs Labs: 10/04/18 10:16 10/04/18 10:16 PT 14.6 SECONDS (9.7-12.2) H 09/11/18 00:36 INR 1.3 09/11/18 00:36 APTT 35 SECONDS (21-34) H 09/11/18 00:36 - Constitutional Appears: Non-toxic, No Acute Distress - Head Exam Head Exam: ATRAUMATIC, NORMAL INSPECTION, NORMOCEPHALIC - Eye Exam Eye Exam: EOMI, Normal appearance - ENT Exam ENT Exam: Mucous Membranes Moist - Respiratory Exam Respiratory Exam: Clear to Ausculation Bilateral, NORMAL BREATHING PATTERN. absent: Rales, Rhonchi, Wheezes - Cardiovascular Exam Cardiovascular Exam: +S1, +S2 - GI/Abdominal Exam GI & Abdominal Exam: Soft, Normal Bowel Sounds - Back Exam Back Exam: absent: CVA tenderness (L), CVA tenderness (R) - Neurological Exam Neurological Exam: Alert, Awake, Oriented x3 - Psychiatric Exam Psychiatric exam: Normal Affect, Normal Mood - Skin Skin Exam: Dry, Intact, Normal Color, Warm Additional comments: (+) right upper chest permacath; no signs of bleeding or infection Assessment and Plan - Assessment and Plan (Free Text) Assessment: 32 year old male with history of ESRD (previously on PD and HD but patient decided to stop all therapy about 4 months ago), hypertension, 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 His symptoms have resolved. 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 However, cannot r/o Alport's syndrome - has not been compliant with eculizumab for last 4 months - Hgb 8.2 on admission - Type and cross -> transfused 2u PRBC 09/11 -> Hgb 6.5 - Hgb 5.7 on 09/13 -> transfused 2u PRBC with HD -> Hgb 8.0 - Heme consulted: Dr. Benites - help appreciated - Trend with AM labs, most recent H/H 11.4/34.8 - continue to transfuse prn with HD - Plan to do labs on MWF with dialysis Severe Thrombocytopenia - likely 2/2 atypical HUS - has not been compliant with eculizumab for last 4 months - Plts 6 on admission - DDAVP 20mcg and Solumedrol 125mg given prior to 2u platelet transfusion 09/11 - Plts 5 -> another 2u Plts transfused 09/12 -> Plts 11 - Heme consulted: Dr. Benites - help appreciated - 09/18/18: Given leukocytosis, case discussed with Dr. Benites who requested manual platelet count. Recommended 1 unit of platelet transfusion if manual platelet count is less than 20. -10/05: Platlet count of 11, disccused with Dr. Benites, who recommended to hold platlet transfusion - Solumedrol 60mg IV q12, Solumedrol 60mg once 09/21/18, discontinued 09/22/18. Taper complete - continue to transfuse prn - monitor for bleeding, no signs of bleeding at this time ESRD on HD MWF - BUN/Cr: 72/10.7 on admission - elevated from previous admission of Cr of 7s - has not had dialysis in the last 4 months, still producing urine - Vasc Surgery consulted: Dr. Philomena goodson appreciated Existing R chest Permacath flushed and still functional Blood Cx if concerned for long indwelling infection No surgical intervention at this time as vascular access intact and new access involves high risk with low platelets Signed off 09/11 - Nephro consulted: Dr. Hamilton goodson appreciated Cont on MWF schedule EPO with HD - BUN/Cr is 55/9.5, dialysis (10/04/18) - 10/03: Dr. Langley and resident discussed with the pt at length his need for HD via [facility] # [id number]. "We instructed the pt that he needs HD, and that it is difficult to obtain HD on [facility]. We explained to him that until he obtains outpatient HD he must stay in the hospital unless he wants to leave AMA. We talked with the pt the benefits and risks of HD, and pt understands, as well as the risks of leaving AMA. Pt shows understanding of his condition, and is willing to stay in the hospital at this time." Right inguinal hernia - Easily reducible - CT Pelvis (09/26): Moderate lower abdominal/pelvic free fluid. Fluid and fat containing right inguinal hernia. Small fat containing left inguinal hernia. Partially imaged moderate constipation. - Continue to monitor for strangulation -> will consider surgery then - abdomen remains nontender Hypertension - home Norvasc 10mg po daily - home Coreg 6.25mg po bid - home Clonidine 0.2mg po tid - continue Hydralazine 25mg BID - Continue to monitor vitals Headache s/p dialysis - Tylenol 650 mg PO Q6h - pt remains normotensive - continue to monitor Leukocytosis Resolved - WBC is currently 7.5, resolved as of 10/02 - Blood Cx from port (09/12): neg x5 days - blood Cx (09/18): neg x5 days - UA 3+ protein, 2+ glucose - urine cultures 09/18 negative - stool culture, and stool studies including O&P, C diff negative - 09/20/18: Case discussed with Dr. Benites who agreed with plan to taper off Solumedrol since it might be causing leukocytosis. Recommended Solumedrol 60mg once tomorrow and then discontinuing on 09/22/18. Patient was treated with Solumedrol 60mg Q12 from 09/16/18 - 09/20/18 - repeat procalcitonin (09/26) 0.60 Diarrhea Resolved - White count 7.5 today - stool culture negative, - Stool ova and parasite negative - CD negative - Continue to monitor, less likely infectious etiology Possible GI bleed Resolved - Hgb 8.2 on admission. Stool occult blood positive in ED - s/p transfusion 2u PRBC (09/11) - to receive another 2u PRBC in dialysis (09/13) - GI consulted: Dr. Elliott - recs appreciated unlikely upper GI bleed no GI intervention, including endoscopy, indicated at this time rec Pepcid over Protonix if GI ppx indicated signed off 09/11 Code Sepsis Resolved - currently, pt is afebrile, not tachycardic and without leukocytosis - called for elevated WBC and tachycardia, suspected long time indwelling cath infection - CXR (09/11): mild pulmonary venous congestion - repeat CXR (09/12): pulmonary vascular congestion. No focal consolidation or pleural effusion. - no rashes, skin changes, sensitivities noticed on skin, including area surrounding catheter - UA (09/11): 3+ protein - VBG (09/11): pH 7.48, lactate 1.6 - procalcitonin (09/11): 0.85 - Given Zosyn 2.25gm and Vancomycin 1gm IV, Gentamicin 270mg once in ED - blood Cx (09/11): Cornebacterium speices, no guidelines on sensitivities - blood Cx drawn from [facility] (09/12): no growth @ 48hrs - Vancomycin 1gm IVPB daily (started 09/11) --> discontinued - random Vanc (09/12): 24.7 - Vanc trough @ 0030am Jessica 09/14: 18.9 -> hold for one day - Vanc trough @ 0030am on 09/19 before 8th dose - Zosyn 2.25gm IVPB q8 (started 09/12) -> discontinued PPx - DVT: Chemical AC CI d/t severe thrombocytopenia, SCDs - GI: CI d/t severe thrombocytopenia - Diet: Diabetic Soft diet - Labs with MWF dialysis - Palliative Care consulted: Continues to be Full Code without Advanced Directive. Encouraged to attend HD as outpatient although patient is still resistant. - Dispo: Patient has lost previous HD chair. CM has begun looking for an outpatient HD center who will accept him with [facility]. D/w Dr. Shivam Cronin, PGY-1 <Paulette Langley - Last Filed: 10/06/18 11:40> Objective - Vital Signs/Intake and Output Vital Signs (last 24 hours): Temp Pulse Resp BP Pulse Ox 98.8 F 62 20 123/79 97 10/06/18 08:44 10/06/18 08:44 10/06/18 08:44 10/06/18 08:44 10/06/18 08:44 Intake and Output: 10/06/18 10/06/18 06:59 18:59 Intake Total 300 240 Balance 300 240 - Medications Medications: Current Medications Acetaminophen (Tylenol 325mg Tab) 650 mg PO Q6 PRN PRN Reason: Pain, Mild (1-3) Last Admin: 10/04/18 13:39 Dose: 650 mg Amlodipine Besylate (Norvasc) 10 mg PO DAILY [facility] Last Admin: 10/06/18 10:25 Dose: 10 mg Calcium Acetate (Phoslo) 1,334 mg PO TIDCC [facility] Last Admin: 10/06/18 10:59 Dose: 1,334 mg Carvedilol (Coreg) 6.25 mg PO BID [facility] Last Admin: 10/06/18 10:25 Dose: 6.25 mg Clonidine HCl (Catapres) 0.2 mg PO TID [facility] Last Admin: 10/06/18 10:25 Dose: 0.2 mg Epoetin Rod (Procrit) 10,000 unit IV MWF [facility] Last Admin: 10/04/18 12:51 Dose: 10,000 unit Hydralazine HCl (Apresoline) 25 mg PO BID [facility] Last Admin: 10/06/18 10:25 Dose: 25 mg Lactic Acid (Lac-Hydrin 12% Lotion (225 G)) 0 gm EXT Q6 [facility] Last Admin: 10/06/18 10:59 Dose: 1 applic Vitamin A (Vitamin A & D Oint Ud Foilpak) 1 ea TOP BID [facility] Last Admin: 10/06/18 10:25 Dose: 1 ea - Labs Labs: 10/06/18 08:17 10/06/18 08:17 PT 14.6 SECONDS (9.7-12.2) H 09/11/18 00:36 INR 1.3 09/11/18 00:36 APTT 35 SECONDS (21-34) H 09/11/18 00:36 Attending/Attestation - Attestation I have personally seen and examined this patient.: Yes I have fully participated in the care of the patient.: Yes I have reviewed all pertinent clinical information, including history, physical exam and plan: Yes Notes (Text): His platelets are down to 11. No bleeding continue to monitor the count and look for possible bleeding Resident discussed with DR Benites pending out pt dialysis arrangements I agree with the resident's documentation
--- NOTE | 2018-10-05 09:09 | CP.PCM.PN ---
Subjective - Date & Time of Evaluation Date of Evaluation: 10/05/18 Time of Evaluation: 09:07 - Subjective Subjective: Appears same stable HD 10/04 labs same HTN controlled Objective - Vital Signs/Intake and Output Vital Signs (last 24 hours): Temp Pulse Resp BP Pulse Ox 98.2 F 65 20 140/85 96 10/05/18 08:04 10/05/18 08:04 10/05/18 08:04 10/05/18 08:04 10/05/18 08:04 Intake and Output: 10/05/18 10/05/18 06:59 18:59 Intake Total 200 Balance 200 - Medications Medications: Current Medications Acetaminophen (Tylenol 325mg Tab) 650 mg PO Q6 PRN PRN Reason: Pain, Mild (1-3) Last Admin: 10/04/18 13:39 Dose: 650 mg Amlodipine Besylate (Norvasc) 10 mg PO DAILY [facility] Last Admin: 10/04/18 10:59 Dose: Not Given Calcium Acetate (Phoslo) 1,334 mg PO TIDCC [facility] Last Admin: 10/05/18 08:04 Dose: 1,334 mg Carvedilol (Coreg) 6.25 mg PO BID [facility] Last Admin: 10/04/18 17:21 Dose: 6.25 mg Clonidine HCl (Catapres) 0.2 mg PO TID [facility] Last Admin: 10/04/18 17:21 Dose: 0.2 mg Epoetin Rod (Procrit) 10,000 unit IV MWF [facility] Last Admin: 10/04/18 12:51 Dose: 10,000 unit Hydralazine HCl (Apresoline) 25 mg PO BID [facility] Last Admin: 10/04/18 17:21 Dose: 25 mg Lactic Acid (Lac-Hydrin 12% Lotion (225 G)) 0 gm EXT Q6 [facility] Last Admin: 10/05/18 06:03 Dose: 1 applic Vitamin A (Vitamin A & D Oint Ud Foilpak) 1 ea TOP BID [facility] Last Admin: 10/04/18 17:43 Dose: 1 ea - Labs Labs: 10/04/18 10:16 10/04/18 10:16 PT 14.6 SECONDS (9.7-12.2) H 09/11/18 00:36 INR 1.3 09/11/18 00:36 APTT 35 SECONDS (21-34) H 10/29/18 00:36 - Constitutional Appears: No Acute Distress, Chronically Ill - Head Exam Head Exam: ATRAUMATIC, NORMAL INSPECTION - Eye Exam Eye Exam: EOMI, Normal appearance - Neck Exam Neck Exam: Normal Inspection. absent: Tenderness - Respiratory Exam Respiratory Exam: Clear to Ausculation Bilateral, NORMAL BREATHING PATTERN - Cardiovascular Exam Cardiovascular Exam: REGULAR RHYTHM, +S1 - GI/Abdominal Exam GI & Abdominal Exam: Soft. absent: Tenderness - Extremities Exam Extremities Exam: Normal Inspection. absent: Tenderness - Neurological Exam Neurological Exam: Awake, CN II-XII Intact - Skin Skin Exam: Dry, Warm Assessment and Plan (1) Gastrointestinal hemorrhage Status: Acute (2) Thrombocytopenia Status: Acute (3) Dialysis catheter clot or failure Status: Acute (4) ESRD (end stage renal disease) Status: Acute (5) Hemolytic uremic syndrome Status: Acute (6) Hypertensive chronic kidney disease with stage 5 chronic kidney disease or end stage renal disease Status: Acute (7) Thrombocytopenia Status: Acute - Assessment and Plan (Free Text) Assessment: Dialysis MWF Same meds Await HD placement
[2018-10-05] MEDS: Vitamins A & D Oint UD Foilpak TOP SCH ×2 (09:14→18:06)
[2018-10-05 17:23] LABS: BASO # 0.1 K/uL (0.0-0.2); BASO % 0.8 % (0.0-2.0); EOS # 0.2 K/uL (0.0-0.7); EOS % 3.1 % (0.0-4.0); HEMOGLOBIN 11.4 g/dL (12.0-18.0); LYMPH # 3.2 K/uL (1.0-4.3); LYMPH % 39.1 % (20.0-40.0); MEAN CELL VOLUME 92.8 fL (80.0-94.0); MEAN CORPUSCULAR HEMOGLOBIN 30.4 pg (27.0-31.0); MEAN CORPUSCULAR HGB CONC 32.8 g/dL (33.0-37.0); MEAN PLATELET VOLUME 11.3 fL (7.2-11.7); MONO # 0.8 K/uL (0.0-0.8); MONO % 10.2 % (0.0-10.0); NEUT # 3.8 K/uL (1.8-7.0); NEUT % 46.8 % (50.0-75.0); NRBC % 0.1 % (0.0-2.0); RBC 3.75 Mil/uL (4.40-5.90); RED CELL DISTRIBUTION WIDTH 21.9 % (11.5-14.5); WHITE BLOOD COUNT 8.1 K/uL (4.8-10.8)
[2018-10-06] MEDS: Ammonium Lactate 12% Lotion (225 g) EXT SCH ×4 (00:40→18:42)
--- NOTE | 2018-10-06 06:28 | CP.PCM.PN ---
<Jose Cronin M - Last Filed: 10/06/18 14:02> Subjective - Date & Time of Evaluation Date of Evaluation: 10/06/18 Time of Evaluation: 09:10 - Subjective Subjective: PGY1 Medicine Progress Note for Dr. Langley. Patient seen and examined at bedside. No overnight events reported. Pt lying in bed, comfortably. Patient states he currently does not have any complaints. Patient denies chest pain, SOB, nausea, vomiting, diarrhea, constipation. Patient states he is producing urine normally. Pt reports headache is resolved from prior day. Objective - Vital Signs/Intake and Output Vital Signs (last 24 hours): Temp Pulse Resp BP Pulse Ox 97.6 F 62 20 119/81 99 10/06/18 00:05 10/06/18 00:05 10/06/18 00:05 10/06/18 00:05 10/06/18 00:05 Intake and Output: 10/05/18 10/06/18 18:59 06:59 Intake Total 300 300 Balance 300 300 - Medications Medications: Current Medications Acetaminophen (Tylenol 325mg Tab) 650 mg PO Q6 PRN PRN Reason: Pain, Mild (1-3) Last Admin: 10/04/18 13:39 Dose: 650 mg Amlodipine Besylate (Norvasc) 10 mg PO DAILY [facility] Last Admin: 10/05/18 09:13 Dose: 10 mg Calcium Acetate (Phoslo) 1,334 mg PO TIDCC [facility] Last Admin: 10/05/18 18:05 Dose: 1,334 mg Carvedilol (Coreg) 6.25 mg PO BID [facility] Last Admin: 10/05/18 18:04 Dose: 6.25 mg Clonidine HCl (Catapres) 0.2 mg PO TID [facility] Last Admin: 10/05/18 18:04 Dose: 0.2 mg Epoetin Rod (Procrit) 10,000 unit IV MWF [facility] Last Admin: 10/04/18 12:51 Dose: 10,000 unit Hydralazine HCl (Apresoline) 25 mg PO BID [facility] Last Admin: 10/05/18 18:04 Dose: 25 mg Lactic Acid (Lac-Hydrin 12% Lotion (225 G)) 0 gm EXT Q6 [facility] Last Admin: 10/06/18 00:40 Dose: 1 applic Vitamin A (Vitamin A & D Oint Ud Foilpak) 1 ea TOP BID [facility] Last Admin: 10/05/18 18:06 Dose: 1 ea - Labs Labs: 10/05/18 17:16 10/04/18 10:16 PT 14.6 SECONDS (9.7-12.2) H 09/11/18 00:36 INR 1.3 09/11/18 00:36 APTT 35 SECONDS (21-34) H 09/11/18 00:36 - Constitutional Appears: Non-toxic, No Acute Distress - Head Exam Head Exam: ATRAUMATIC, NORMAL INSPECTION, NORMOCEPHALIC - Eye Exam Eye Exam: Normal appearance - ENT Exam ENT Exam: Mucous Membranes Moist - Respiratory Exam Respiratory Exam: Clear to Ausculation Bilateral, NORMAL BREATHING PATTERN. absent: Rales, Rhonchi, Wheezes - Cardiovascular Exam Cardiovascular Exam: +S1, +S2 - Extremities Exam Extremities Exam: Full ROM, Normal Inspection. 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 His symptoms have resolved. 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 However, cannot r/o Alport's syndrome - has not been compliant with eculizumab for last 4 months - Hgb 8.2 on admission - Type and cross -> transfused 2u PRBC 09/11 -> Hgb 6.5 - Hgb 5.7 on 09/13 -> transfused 2u PRBC with HD -> Hgb 8.0 - Heme consulted: Dr. Benites - help appreciated - Trend with AM labs, most recent H/H 10.6/32.2 - continue to transfuse prn with HD - Plan to do labs Q7D Severe Thrombocytopenia - likely 2/2 atypical HUS - has not been compliant with eculizumab for last 4 months - Plts 6 on admission - DDAVP 20mcg and Solumedrol 125mg given prior to 2u platelet transfusion 09/11 - Plts 5 -> another 2u Plts transfused 09/12 -> Plts 11 - Heme consulted: Dr. Benites - help appreciated - 09/18/18: Given leukocytosis, case discussed with Dr. Benites who requested m anual platelet count. Recommended 1 unit of platelet transfusion if manual platelet count is less than 20. - 10/05: Platlet count of 11, disccused with Dr. Benites, who recommended to hold platlet transfusion - 10/06: Manual platlet count 32 - Solumedrol 60mg IV q12, Solumedrol 60mg once 09/21/18, discontinued 09/22/18. Taper complete - continue to transfuse prn - monitor for bleeding, no signs of bleeding at this time ESRD on HD MWF - BUN/Cr: 72/10.7 on admission - elevated from previous admission of Cr of 7s - has not had dialysis in the last 4 months, still producing urine - Vasc Surgery consulted: Dr. Philomena goodson appreciated Existing R chest Permacath flushed and still functional Blood Cx if concerned for long indwelling infection No surgical intervention at this time as vascular access intact and new access involves high risk with low platelets Signed off 09/11 - Nephro consulted: Dr. Hamilton goodson appreciated Cont on MWF schedule EPO with HD - BUN/Cr is 47/8.9, dialysis (10/04/18) - 10/03: Dr. Langley and resident discussed with the pt at length his need for HD via [facility] # [id number]. "We instructed the pt that he needs HD, and that it is d ifficult to obtain HD on [facility]. We explained to him that until he obtains outpatient HD he must stay in the hospital unless he wants to leave AMA. We talked with the pt the benefits and risks of HD, and pt understands, as well as the risks of leaving AMA. Pt shows understanding of his condition, and is willing to stay in the hospital at this time." Right inguinal hernia - Easily reducible - CT Pelvis (09/26): Moderate lower abdominal/pelvic free fluid. Fluid and fat containing right inguinal hernia. Small fat containing left inguinal hernia. Partially imaged moderate constipation. - Continue to monitor for strangulation -> will consider surgery then - abdomen remains nontender Hypertension - home Norvasc 10mg po daily - home Coreg 6.25mg po bid - home Clonidine 0.2mg po tid - continue Hydralazine 25mg BID - Continue to monitor vitals Headache s/p dialysis - Tylenol 650 mg PO Q6h - pt remains normotensive - continue to monitor Leukocytosis Resolved - WBC is currently 7.5, resolved as of 10/02 - Blood Cx from port (09/12): neg x5 days - blood Cx (09/18): neg x5 days - UA 3+ protein, 2+ glucose - urine cultures 09/18 negative - stool culture, and stool studies including O&P, C diff negative - 09/20/18: Case discussed with Dr. Benites who agreed with plan to taper off Solumedrol since it might be causing leukocytosis. Recommended Solumedrol 60mg once tomorrow and then discontinuing on 09/22/18. Patient was treated with Solumedrol 60mg Q12 from 09/16/18 - 09/20/18 - repeat procalcitonin (09/26) 0.60 Diarrhea Resolved - White count 7.5 today - stool culture negative, - Stool ova and parasite negative - CD negative - Continue to monitor, less likely infectious etiology Possible GI bleed Resolved - Hgb 8.2 on admission. Stool occult blood positive in ED - s/p transfusion 2u PRBC (09/11) - to receive another 2u PRBC in dialysis (09/13) - GI consulted: Dr. Elliott - recs appreciated unlikely upper GI bleed no GI intervention, including endoscopy, indicated at this time rec Pepcid over Protonix if GI ppx indicated signed off 09/11 Code Sepsis Resolved - currently, pt is afebrile, not tachycardic and without leukocytosis - called for elevated WBC and tachycardia, suspected long time indwelling cath infection - CXR (09/11): mild pulmonary venous congestion - repeat CXR (09/12): pulmonary vascular congestion. No focal consolidation or pleural effusion. - no rashes, skin changes, sensitivities noticed on skin, including area surrounding catheter - UA (09/11): 3+ protein - VBG (09/11): pH 7.48, lactate 1.6 - procalcitonin (09/11): 0.85 - Given Zosyn 2.25gm and Vancomycin 1gm IV, Gentamicin 270mg once in ED - blood Cx (09/11): Cornebacterium speices, no guidelines on sensitivities - [facility] growth @ 48hrs - Vancomycin 1gm IVPB daily (started 09/11) --> discontinued - random Vanc (09/12): 24.7 - Vanc trough @ 0030am Jessica 09/14: 18.9 -> hold for one day - Vanc trough @ 0030am on 09/19 before 8th dose - Zosyn 2.25gm IVPB q8 (started 09/12) -> discontinued PPx - DVT: Chemical AC CI d/t severe thrombocytopenia, SCDs - GI: CI d/t severe thrombocytopenia - Diet: Diabetic Soft diet - Labs Q7D w/ dialysis - Palliative Care consulted: Continues to be Full Code without Advanced Directive. Encouraged to attend HD as outpatient although patient is still resistant. - Dispo: Patient has lost previous HD chair. CM has begun looking for an outpatient HD center who will accept him with [facility]. - D/w Dr. Shivam Cronin, PGY-1 <Paulette Langley - Last Filed: 10/06/18 18:27> Objective - Vital Signs/Intake and Output Vital Signs (last 24 hours): Temp Pulse Resp BP Pulse Ox 98.4 F 64 20 128/81 98 10/06/18 17:54 10/06/18 17:54 10/06/18 17:54 10/06/18 17:54 10/06/18 17:54 Intake and Output: 10/06/18 10/06/18 06:59 18:59 Intake Total 300 540 Balance 300 540 - Medications Medications: Current Medications Acetaminophen (Tylenol 325mg Tab) 650 mg PO Q6 PRN PRN Reason: Pain, Mild (1-3) Last Admin: 10/04/18 13:39 Dose: 650 mg Amlodipine Besylate (Norvasc) 10 mg PO DAILY [facility] Last Admin: 10/06/18 10:25 Dose: 10 mg Calcium Acetate (Phoslo) 1,334 mg PO TIDCC [facility] Last Admin: 10/06/18 10:59 Dose: 1,334 mg Carvedilol (Coreg) 6.25 mg PO BID [facility] Last Admin: 10/06/18 10:25 Dose: 6.25 mg Clonidine HCl (Catapres) 0.2 mg PO TID [facility] Last Admin: 10/06/18 13:03 Dose: 0.2 mg Epoetin Rod (Procrit) 10,000 unit IV MWF [facility] Last Admin: 10/06/18 17:00 Dose: 10,000 unit Hydralazine HCl (Apresoline) 25 mg PO BID [facility] Last Admin: 10/06/18 10:25 Dose: 25 mg Lactic Acid (Lac-Hydrin 12% Lotion (225 G)) 0 gm EXT Q6 [facility] Last Admin: 10/06/18 10:59 Dose: 1 applic Vitamin A (Vitamin A & D Oint Ud Foilpak) 1 ea TOP BID [facility] Last Admin: 10/06/18 10:25 Dose: 1 ea - Labs Labs: 10/06/18 08:17 10/06/18 08:17 PT 14.6 SECONDS (9.7-12.2) H 09/11/18 00:36 INR 1.3 09/11/18 00:36 APTT 35 SECONDS (21-34) H 09/11/18 00:36 Attending/Attestation - Attestation I have personally seen and examined this patient.: Yes I have fully participated in the care of the patient.: Yes I have reviewed all pertinent clinical information, including history, physical exam and plan: Yes Notes (Text): No complain,no bleeding Todays Esequiel platelet is 32 10/06/18 18:23
[2018-10-06 08:24] LABS: BASO # 0.1 K/uL (0.0-0.2); BASO % 0.6 % (0.0-2.0); EOS # 0.4 K/uL (0.0-0.7); EOS % 4.9 % (0.0-4.0); HEMOGLOBIN 10.6 g/dL (12.0-18.0); LYMPH # 3.6 K/uL (1.0-4.3); LYMPH % 40.6 % (20.0-40.0); MEAN CELL VOLUME 92.5 fL (80.0-94.0); MEAN CORPUSCULAR HEMOGLOBIN 30.5 pg (27.0-31.0); MONO % 10.8 % (0.0-10.0); NEUT # 3.8 K/uL (1.8-7.0); NEUT % 43.1 % (50.0-75.0); NRBC % 0.1 % (0.0-2.0); RBC 3.48 Mil/uL (4.40-5.90); RED CELL DISTRIBUTION WIDTH 21.7 % (11.5-14.5); WHITE BLOOD COUNT 8.8 K/uL (4.8-10.8)
[2018-10-06 09:00] LABS: ALB/GLOB RATIO 1.5 (1.0-2.1); ALBUMIN 3.6 g/dL (3.5-5.0); CALCIUM 9.1 mg/dl (8.6-10.4)
--- NOTE | 2018-10-06 10:08 | CP.PCM.PN ---
Subjective - Date & Time of Evaluation Date of Evaluation: 10/06/18 Time of Evaluation: 10:04 - Subjective Subjective: Appears same HTN controlled No new complaints Labs reviewed Objective - Vital Signs/Intake and Output Vital Signs (last 24 hours): Temp Pulse Resp BP Pulse Ox 98.8 F 62 20 123/79 97 10/06/18 08:44 10/06/18 08:44 10/06/18 08:44 10/06/18 08:44 10/06/18 08:44 Intake and Output: 10/06/18 10/06/18 06:59 18:59 Intake Total 300 240 Balance 300 240 - Medications Medications: Current Medications Acetaminophen (Tylenol 325mg Tab) 650 mg PO Q6 PRN PRN Reason: Pain, Mild (1-3) Last Admin: 10/04/18 13:39 Dose: 650 mg Amlodipine Besylate (Norvasc) 10 mg PO DAILY [facility] Last Admin: 10/05/18 09:13 Dose: 10 mg Calcium Acetate (Phoslo) 1,334 mg PO TIDCC [facility] Last Admin: 10/06/18 08:28 Dose: 1,334 mg Carvedilol (Coreg) 6.25 mg PO BID [facility] Last Admin: 10/05/18 18:04 Dose: 6.25 mg Clonidine HCl (Catapres) 0.2 mg PO TID [facility] Last Admin: 10/05/18 18:04 Dose: 0.2 mg Epoetin Rod (Procrit) 10,000 unit IV MWF [facility] Last Admin: 10/04/18 12:51 Dose: 10,000 unit Hydralazine HCl (Apresoline) 25 mg PO BID [facility] Last Admin: 10/05/18 18:04 Dose: 25 mg Lactic Acid (Lac-Hydrin 12% Lotion (225 G)) 0 gm EXT Q6 [facility] Last Admin: 10/06/18 06:10 Dose: 1 applic Vitamin A (Vitamin A & D Oint Ud Foilpak) 1 ea TOP BID [facility] Last Admin: 10/05/18 18:06 Dose: 1 ea - Labs Labs: 10/06/18 08:17 10/06/18 08:17 PT 14.6 SECONDS (9.7-12.2) H 09/11/18 00:36 INR 1.3 09/11/18 00:36 APTT 35 SECONDS (21-34) H 10/29/18 00:36 - Constitutional Appears: No Acute Distress, Chronically Ill - Head Exam Head Exam: ATRAUMATIC, NORMAL INSPECTION - Eye Exam Eye Exam: EOMI, Normal appearance - Neck Exam Neck Exam: Normal Inspection. absent: Tenderness - Respiratory Exam Respiratory Exam: Clear to Ausculation Bilateral, NORMAL BREATHING PATTERN - GI/Abdominal Exam GI & Abdominal Exam: Soft. absent: Tenderness - Extremities Exam Extremities Exam: Normal Inspection. absent: Tenderness - Neurological Exam Neurological Exam: Awake, CN II-XII Intact - Skin Skin Exam: Dry, Warm Assessment and Plan (1) Gastrointestinal hemorrhage Status: Acute (2) Thrombocytopenia Status: Acute (3) Dialysis catheter clot or failure Status: Acute (4) ESRD (end stage renal disease) Status: Acute (5) Hemolytic uremic syndrome Status: Acute (6) Hypertensive chronic kidney disease with stage 5 chronic kidney disease or end stage renal disease Status: Acute (7) Thrombocytopenia Status: Acute - Assessment and Plan (Free Text) Plan: Dialysis now and MWF Same meds HD placement
[2018-10-06] MEDS: Vitamins A & D Oint UD Foilpak TOP SCH ×2 (10:25→18:43)
[2018-10-06] MEDS: Epoetin Alfa 10,000 unit/ml Dialysis IV SCH (17:00)
[2018-10-07] MEDS: Ammonium Lactate 12% Lotion (225 g) EXT SCH ×4 (00:23→17:37)
[2018-10-07] MEDS: Vitamins A & D Oint UD Foilpak TOP SCH ×2 (09:08→17:35)
--- NOTE | 2018-10-07 11:12 | CP.PCM.PN ---
Subjective - Date & Time of Evaluation Date of Evaluation: 10/07/18 Time of Evaluation: 11:11 - Subjective Subjective: no complaints no bruising tolerated HD yesterday Objective - Vital Signs/Intake and Output Vital Signs (last 24 hours): Temp Pulse Resp BP Pulse Ox 99.1 F 72 20 127/88 98 10/07/18 08:03 10/07/18 10:00 10/07/18 10:00 10/07/18 10:00 10/07/18 08:03 Intake and Output: 10/07/18 10/07/18 06:59 18:59 Intake Total 120 Balance 120 - Medications Medications: Current Medications Acetaminophen (Tylenol 325mg Tab) 650 mg PO Q6 PRN PRN Reason: Pain, Mild (1-3) Last Admin: 10/04/18 13:39 Dose: 650 mg Amlodipine Besylate (Norvasc) 10 mg PO DAILY [facility] Last Admin: 10/07/18 09:06 Dose: 10 mg Calcium Acetate (Phoslo) 1,334 mg PO TIDCC [facility] Last Admin: 10/07/18 08:51 Dose: 1,334 mg Carvedilol (Coreg) 6.25 mg PO BID [facility] Last Admin: 10/07/18 09:06 Dose: 6.25 mg Clonidine HCl (Catapres) 0.2 mg PO TID [facility] Last Admin: 10/07/18 10:16 Dose: 0.2 mg Epoetin Rod (Procrit) 10,000 unit IV MWF [facility] Last Admin: 10/06/18 17:00 Dose: 10,000 unit Hydralazine HCl (Apresoline) 25 mg PO BID [facility] Last Admin: 10/07/18 09:06 Dose: 25 mg Lactic Acid (Lac-Hydrin 12% Lotion (225 G)) 0 gm EXT Q6 [facility] Last Admin: 10/07/18 05:27 Dose: 1 applic Vitamin A (Vitamin A & D Oint Ud Foilpak) 1 ea TOP BID [facility] Last Admin: 10/07/18 09:08 Dose: 1 ea - Labs Labs: 10/06/18 08:17 10/06/18 08:17 PT 14.6 SECONDS (9.7-12.2) H 09/11/18 00:36 INR 1.3 09/11/18 00:36 APTT 35 SECONDS (21-34) H 09/11/18 00:36 - Constitutional Appears: Non-toxic - Head Exam Head Exam: ATRAUMATIC - Eye Exam Eye Exam: EOMI - ENT Exam ENT Exam: Mucous Membranes Moist - Neck Exam Neck Exam: Full ROM. absent: Lymphadenopathy - Respiratory Exam Respiratory Exam: NORMAL BREATHING PATTERN. absent: Accessory Muscle Use - Cardiovascular Exam Cardiovascular Exam: REGULAR RHYTHM. absent: Rubs - GI/Abdominal Exam GI & Abdominal Exam: Soft. absent: Tenderness - Neurological Exam Neurological Exam: Alert, Awake, Oriented x3 Assessment and Plan - Assessment and Plan (Free Text) Assessment: maint HD Heme follow up for disposition
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
[2018-10-08] MEDS: Ammonium Lactate 12% Lotion (225 g) EXT SCH ×4 (00:20→17:38)
[2018-10-08] MEDS: Vitamins A & D Oint UD Foilpak TOP SCH ×2 (09:04→17:39)
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
[2018-10-09] MEDS: Ammonium Lactate 12% Lotion (225 g) EXT SCH ×4 (00:18→18:07)
--- NOTE | 2018-10-09 07:08 | CP.PCM.PN ---
<Jose Cronin M - Last Filed: 10/09/18 13:38> Subjective - Date & Time of Evaluation Date of Evaluation: 10/09/18 Time of Evaluation: 07:30 - Subjective Subjective: PGY1 Medicine Progress Note for Dr. Snyder Patient seen and examined at bedside. No overnight events reported. Pt lying in bed, comfortably. Patient states he currently does not have any complaints. Patient denies chest pain, SOB, nausea, vomiting, diarrhea, constipation. Patient states he is producing urine normally. Objective - Vital Signs/Intake and Output Vital Signs (last 24 hours): Temp Pulse Resp BP Pulse Ox 98.2 F 64 20 107/67 97 10/09/18 00:00 10/09/18 00:00 10/09/18 00:00 10/09/18 00:00 10/09/18 00:00 Intake and Output: 10/09/18 10/09/18 06:59 18:59 Intake Total 180 Balance 180 - Medications Medications: Current Medications Acetaminophen (Tylenol 325mg Tab) 650 mg PO Q6 PRN PRN Reason: Pain, Mild (1-3) Last Admin: 10/04/18 13:39 Dose: 650 mg Amlodipine Besylate (Norvasc) 10 mg PO DAILY [facility] Last Admin: 10/08/18 09:04 Dose: 10 mg Calcium Acetate (Phoslo) 1,334 mg PO TIDCC [facility] Last Admin: 10/08/18 17:39 Dose: 1,334 mg Carvedilol (Coreg) 6.25 mg PO BID [facility] Last Admin: 10/08/18 17:39 Dose: 6.25 mg Clonidine HCl (Catapres) 0.2 mg PO TID [facility] Last Admin: 10/08/18 17:39 Dose: 0.2 mg Epoetin Rod (Procrit) 10,000 unit IV MWF [facility] Last Admin: 10/06/18 17:00 Dose: 10,000 unit Hydralazine HCl (Apresoline) 25 mg PO BID [facility] Last Admin: 10/08/18 17:39 Dose: 25 mg Lactic Acid (Lac-Hydrin 12% Lotion (225 G)) 0 gm EXT Q6 [facility] Last Admin: 10/09/18 06:29 Dose: 1 applic Vitamin A (Vitamin A & D Oint Ud Foilpak) 1 ea TOP BID [facility] Last Admin: 10/08/18 17:39 Dose: 1 ea - Labs Labs: 10/06/18 08:17 10/06/18 08:17 PT 14.6 SECONDS (9.7-12.2) H 09/11/18 00:36 INR 1.3 09/11/18 00:36 APTT 35 SECONDS (21-34) H 09/11/18 00:36 - Constitutional Appears: Non-toxic, No Acute Distress - Head Exam Head Exam: ATRAUMATIC, NORMAL INSPECTION, NORMOCEPHALIC - Eye Exam Eye Exam: EOMI, Normal appearance - ENT Exam ENT Exam: Mucous Membranes Moist - Respiratory Exam Respiratory Exam: Clear to Ausculation Bilateral, NORMAL BREATHING PATTERN. absent: Rales, Rhonchi, Wheezes - Cardiovascular Exam Cardiovascular Exam: +S1, +S2. absent: Murmur - GI/Abdominal Exam GI & Abdominal Exam: Soft, Normal Bowel Sounds. 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 His symptoms have resolved. 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 However, cannot r/o Alport's syndrome - has not been compliant with eculizumab for last 4 months - Hgb 8.2 on admission - Type and cross -> transfused 2u PRBC 09/11 -> Hgb 6.5 - Hgb 5.7 on 09/13 -> transfused 2u PRBC with HD -> Hgb 8.0 - Heme consulted: Dr. Benites - help appreciated - Trend with AM labs, most recent H/H 10.6/32.2 - continue to transfuse prn with HD - Plan to do labs on Tuesday Q7D Severe Thrombocytopenia - likely 2/2 atypical HUS - has not been compliant with eculizumab for last 4 months - Plts 6 on admission - DDAVP 20mcg and Solumedrol 125mg given prior to 2u platelet transfusion 09/11 - Plts 5 -> another 2u Plts transfused 09/12 -> Plts 11 - Heme consulted: Dr. Benites - help appreciated - 09/18/18: Given leukocytosis, case discussed with Dr. Benites who requested manual platelet count. Recommended 1 unit of platelet transfusion if manual platelet count is less than 20. -10/05: Platlet count of 11, discussed with Dr. Benites, who recommended to hold platlet transfusion - 10/06: Manual platlet count of 32, continue to monitor - Solumedrol 60mg IV q12, Solumedrol 60mg once 09/21/18, discontinued 09/22/18. Taper complete - continue to transfuse prn - monitor for bleeding, no signs of bleeding at this time ESRD on HD MWF - BUN/Cr: 72/10.7 on admission - elevated from previous admission of Cr of 7s - has not had dialysis in the last 4 months, still producing urine - Vasc Surgery consulted: Dr. Philomena goodson appreciated Existing R chest Permacath flushed and still functional Blood Cx if concerned for long indwelling infection No surgical intervention at this time as vascular access intact and new access involves high risk with low platelets Signed off 09/11 - Nephro consulted: Dr. Hamilton goodson appreciated Cont on MWF schedule EPO with HD - BUN/Cr is 47/8.9, dialysis (10/06/18) - 10/03: Dr. Langley and resident discussed with the pt at length his need for HD via [facility] # [id number]. "We instructed the pt that he needs HD, and that it is difficult to obtain HD on [facility]. We explained to him that until he obtains outpatient HD he must stay in the hospital unless he wants to leave AMA. We talked with the pt the benefits and risks of HD, and pt understands, as well as the risks of leaving AMA. Pt shows understanding of his condition, and is willing to stay in the hospital at this time." Right inguinal hernia - Easily reducible - CT Pelvis (09/26): Moderate lower abdominal/pelvic free fluid. Fluid and fat containing right inguinal hernia. Small fat containing left inguinal hernia. Partially imaged moderate constipation. - Continue to monitor for strangulation -> will consider surgery then - abdomen remains nontender Hypertension - home Norvasc 10mg po daily - home Coreg 6.25mg po bid - home Clonidine 0.2mg po tid - continue Hydralazine 25mg BID - Continue to monitor vitals Headache s/p dialysis - Tylenol 650 mg PO Q6h - pt remains normotensive - continue to monitor Leukocytosis Resolved - WBC is currently 7.5, resolved as of 10/02 - Blood Cx from port (09/12): neg x5 days - blood Cx (09/18): neg x5 days - UA 3+ protein, 2+ glucose - urine cultures 09/18 negative - stool culture, and stool studies including O&P, C diff negative - 09/20/18: Case discussed with Dr. Benites who agreed with plan to taper off Solumedrol since it might be causing leukocytosis. Recommended Solumedrol 60mg once tomorrow and then discontinuing on 09/22/18. Patient was treated with Solumedrol 60mg Q12 from 09/16/18 - 09/20/18 - repeat procalcitonin (09/26) 0.60 Diarrhea Resolved - White count 7.5 today - stool culture negative, - Stool ova and parasite negative - CD negative - Continue to monitor, less likely infectious etiology Possible GI bleed Resolved - Hgb 8.2 on admission. Stool occult blood positive in ED - s/p transfusion 2u PRBC (09/11) - to receive another 2u PRBC in dialysis (09/13) - GI consulted: Dr. Elliott - recs appreciated unlikely upper GI bleed no GI intervention, including endoscopy, indicated at this time rec Pepcid over Protonix if GI ppx indicated signed off 09/11 Code Sepsis Resolved - currently, pt is afebrile, not tachycardic and without leukocytosis - called for elevated WBC and tachycardia, suspected long time indwelling cath infection - CXR (09/11): mild pulmonary venous congestion - repeat CXR (09/12): pulmonary vascular congestion. No focal consolidation or pleural effusion. - no rashes, skin changes, sensitivities noticed on skin, including area surrounding catheter - UA (09/11): 3+ protein - VBG (09/11): pH 7.48, lactate 1.6 - procalcitonin (09/11): 0.85 - Given Zosyn 2.25gm and Vancomycin 1gm IV, Gentamicin 270mg once in ED - blood Cx (09/11): Cornebacterium speices, no guidelines on sensitivities - blood Cx drawn from [facility] (09/12): no growth @ 48hrs - Vancomycin 1gm IVPB daily (started 09/11) --> discontinued - random Vanc (09/12): 24.7 - Vanc trough @ 0030am Jessica 09/14: 18.9 -> hold for one day - Vanc trough @ 0030am on 09/19 before 8th dose - Zosyn 2.25gm IVPB q8 (started 09/12) -> discontinued PPx - DVT: Chemical AC CI d/t severe thrombocytopenia, SCDs - GI: CI d/t severe thrombocytopenia - Diet: Diabetic Soft diet - Labs with MWF dialysis - Palliative Care consulted: Continues to be Full Code without Advanced Directive. Encouraged to attend HD as outpatient although patient is still resistant. - Dispo: Patient has lost previous HD chair. CM [facility]. Labs Q7D on Wednesdays. D/w Dr. Lillian Cronin, PGY-1 <Romeo Snyder - Last Filed: 10/09/18 13:50> Objective - Vital Signs/Intake and Output Vital Signs (last 24 hours): Temp Pulse Resp BP Pulse Ox 98.7 F 62 20 110/70 96 10/09/18 08:18 10/09/18 08:18 10/09/18 08:18 10/09/18 09:00 10/09/18 08:18 Intake and Output: 10/09/18 10/09/18 06:59 18:59 Intake Total 180 Balance 180 - Medications Medications: Current Medications Acetaminophen (Tylenol 325mg Tab) 650 mg PO Q6 PRN PRN Reason: Pain, Mild (1-3) Last Admin: 10/04/18 13:39 Dose: 650 mg Amlodipine Besylate (Norvasc) 10 mg PO DAILY [facility] Last Admin: 10/09/18 10:27 Dose: Not Given Calcium Acetate (Phoslo) 1,334 mg PO TIDCC [facility] Last Admin: 10/09/18 12:25 Dose: 1,334 mg Carvedilol (Coreg) 6.25 mg PO BID [facility] Last Admin: 10/09/18 10:27 Dose: Not Given Clonidine HCl (Catapres) 0.2 mg PO TID [facility] Last Admin: 10/09/18 13:43 Dose: Not Given Epoetin Rod (Procrit) 10,000 unit IV MWF [facility] Last Admin: 10/06/18 17:00 Dose: 10,000 unit Hydralazine HCl (Apresoline) 25 mg PO BID [facility] Last Admin: 10/09/18 10:28 Dose: Not Given Lactic Acid (Lac-Hydrin 12% Lotion (225 G)) 0 gm EXT Q6 [facility] Last Admin: 10/09/18 12:26 Dose: 1 applic Vitamin A (Vitamin A & D Oint Ud Foilpak) 1 ea TOP BID [facility] Last Admin: 10/09/18 10:26 Dose: 1 ea - Labs Labs: 10/06/18 08:17 10/06/18 08:17 PT 14.6 SECONDS (9.7-12.2) H 09/11/18 00:36 INR 1.3 09/11/18 00:36 APTT 35 SECONDS (21-34) H 09/11/18 00:36 Attending/Attestation - Attestation I have personally seen and examined this patient.: Yes I have fully participated in the care of the patient.: Yes I have reviewed all pertinent clinical information, including history, physical exam and plan: Yes Notes (Text): 10/09/18 13:50 Medical attending: Patient was seen and examined by me, agrees the above note by the medical superintendent. The patient was actively walking about in the hallway he reported no chest pain, no stomach pain At this moment were pending on outpatient hemodialysis placement. Because of the patient's immigration status as well as financial status of this may take some time before he gets outpatient dialysis placement Thank you very much, Romeo Snyder
[2018-10-09] MEDS: Vitamins A & D Oint UD Foilpak TOP SCH ×2 (10:26→18:07)
--- NOTE | 2018-10-09 12:11 | CP.PCM.PN ---
Subjective - Date & Time of Evaluation Date of Evaluation: 10/09/18 Time of Evaluation: 12:10 - Subjective Subjective: Feels well No new events For HD today Objective - Vital Signs/Intake and Output Vital Signs (last 24 hours): Temp Pulse Resp BP Pulse Ox 98.7 F 62 20 135/92 H 96 10/09/18 08:18 10/09/18 08:18 10/09/18 08:18 10/09/18 08:18 10/09/18 08:18 Intake and Output: 10/09/18 10/09/18 06:59 18:59 Intake Total 180 Balance 180 - Medications Medications: Current Medications Acetaminophen (Tylenol 325mg Tab) 650 mg PO Q6 PRN PRN Reason: Pain, Mild (1-3) Last Admin: 10/04/18 13:39 Dose: 650 mg Amlodipine Besylate (Norvasc) 10 mg PO DAILY [facility] Last Admin: 10/09/18 10:27 Dose: Not Given Calcium Acetate (Phoslo) 1,334 mg PO TIDCC [facility] Last Admin: 10/09/18 10:19 Dose: 1,334 mg Carvedilol (Coreg) 6.25 mg PO BID [facility] Last Admin: 10/09/18 10:27 Dose: Not Given Clonidine HCl (Catapres) 0.2 mg PO TID [facility] Last Admin: 10/09/18 10:28 Dose: Not Given Epoetin Rod (Procrit) 10,000 unit IV MWF [facility] Last Admin: 10/06/18 17:00 Dose: 10,000 unit Hydralazine HCl (Apresoline) 25 mg PO BID [facility] Last Admin: 10/09/18 10:28 Dose: Not Given Lactic Acid (Lac-Hydrin 12% Lotion (225 G)) 0 gm EXT Q6 [facility] Last Admin: 10/09/18 06:29 Dose: 1 applic Vitamin A (Vitamin A & D Oint Ud Foilpak) 1 ea TOP BID [facility] Last Admin: 10/09/18 10:26 Dose: 1 ea - Labs Labs: 10/06/18 08:17 10/06/18 08:17 PT 14.6 SECONDS (9.7-12.2) H 09/11/18 00:36 INR 1.3 09/11/18 00:36 APTT 35 SECONDS (21-34) H 09/11/18 00:36 - Constitutional Appears: In Acute Distress, Chronically Ill - Head Exam Head Exam: ATRAUMATIC, NORMAL INSPECTION - Eye Exam Eye Exam: EOMI, Normal appearance - Neck Exam Neck Exam: Normal Inspection. absent: Tenderness - Respiratory Exam Respiratory Exam: Clear to Ausculation Bilateral, NORMAL BREATHING PATTERN - Cardiovascular Exam Cardiovascular Exam: REGULAR RHYTHM, +S1 - GI/Abdominal Exam GI & Abdominal Exam: Soft. absent: Tenderness - Extremities Exam Extremities Exam: Normal Inspection. absent: Tenderness - Neurological Exam Neurological Exam: Awake, CN II-XII Intact - Skin Skin Exam: Dry, Warm Assessment and Plan (1) Gastrointestinal hemorrhage Status: Acute (2) Thrombocytopenia Status: Acute (3) Dialysis catheter clot or failure Status: Acute (4) ESRD (end stage renal disease) Status: Acute (5) Hemolytic uremic syndrome Status: Acute (6) Hypertensive chronic kidney disease with stage 5 chronic kidney disease or end stage renal disease Status: Acute (7) Thrombocytopenia Status: Acute - Assessment and Plan (Free Text) Plan: Dialysis MWF Placement pending
[2018-10-09] MEDS: Epoetin Alfa 10,000 unit/ml Dialysis IV SCH (17:29)
[2018-10-10] MEDS: Ammonium Lactate 12% Lotion (225 g) EXT SCH ×3 (00:26→17:30)
[2018-10-10 01:48] VITALS: RESP 20
--- NOTE | 2018-10-10 06:29 | CP.PCM.PN ---
<Jose Cronin - Last Filed: 10/10/18 13:16> Subjective - Date & Time of Evaluation Date of Evaluation: 10/10/18 Time of Evaluation: 20:00 - Subjective Subjective: PGY1 Medicine Progress Note for Dr. Snyder Patient seen and examined at bedside. No overnight events reported. Pt lying in bed, comfortably. Patient states he is not feeling well today. He states he is having generalized body aches since last night. Patient denies chest pain, SOB, abdominal pain, nausea, vomiting, diarrhea, constipation, fevers, chills, vision changes, hearing changes.. Patient states he is producing urine normally. Objective - Vital Signs/Intake and Output Vital Signs (last 24 hours): Temp Pulse Resp BP Pulse Ox 98.8 F 85 20 133/90 96 10/10/18 00:00 10/10/18 00:00 10/10/18 00:00 10/10/18 00:00 10/10/18 00:00 Intake and Output: 10/09/18 10/10/18 18:59 06:59 Intake Total 500 250 Balance 500 250 - Medications Medications: Current Medications Acetaminophen (Tylenol 325mg Tab) 650 mg PO Q6 PRN PRN Reason: Pain, Mild (1-3) Last Admin: 10/10/18 02:47 Dose: 650 mg Amlodipine Besylate (Norvasc) 10 mg PO DAILY [facility] Last Admin: 10/09/18 10:27 Dose: Not Given Calcium Acetate (Phoslo) 1,334 mg PO TIDCC [facility] Last Admin: 10/09/18 18:07 Dose: 1,334 mg Carvedilol (Coreg) 6.25 mg PO BID [facility] Last Admin: 10/09/18 18:07 Dose: 6.25 mg Clonidine HCl (Catapres) 0.2 mg PO TID [facility] Last Admin: 10/09/18 17:38 Dose: 0.2 mg Epoetin Rod (Procrit) 10,000 unit IV MWF [facility] Last Admin: 10/09/18 17:29 Dose: 10,000 unit Hydralazine HCl (Apresoline) 25 mg PO BID [facility] Last Admin: 10/09/18 17:28 Dose: 25 mg Lactic Acid (Lac-Hydrin 12% Lotion (225 G)) 0 gm EXT Q6 [facility] Last Admin: 10/10/18 00:26 Dose: 1 applic Vitamin A (Vitamin A & D Oint Ud Foilpak) 1 ea TOP BID [facility] Last Admin: 10/09/18 18:07 Dose: 1 ea - Labs Labs: 10/06/18 08:17 10/06/18 08:17 PT 14.6 SECONDS (9.7-12.2) H 09/11/18 00:36 INR 1.3 09/11/18 00:36 APTT 35 SECONDS (21-34) H 09/11/18 00:36 - Constitutional Appears: Non-toxic, No Acute Distress - Head Exam Head Exam: ATRAUMATIC, NORMAL INSPECTION, NORMOCEPHALIC - Eye Exam Eye Exam: Normal appearance - ENT Exam ENT Exam: Mucous Membranes Moist - Respiratory Exam Respiratory Exam: Clear to Ausculation Bilateral, NORMAL BREATHING PATTERN. absent: Rales, Rhonchi, Wheezes - Cardiovascular Exam Cardiovascular Exam: +S1, +S2. absent: Murmur Additional comments: R sided permacath - GI/Abdominal Exam GI & Abdominal Exam: Soft, Normal Bowel Sounds - Extremities Exam Extremities Exam: Full ROM, Normal Inspection. 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 His symptoms have resolved. 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 However, cannot r/o Alport's syndrome - has not been compliant with eculizumab for last 4 months - Hgb 8.2 on admission - Type and cross -> transfused 2u PRBC 09/11 -> Hgb 6.5 - Hgb 5.7 on 09/13 -> transfused 2u PRBC with HD -> Hgb 8.0 - Heme consulted: Dr. Benites - help appreciated - Trend with AM labs, most recent H/H 10.6/32.2 - continue to transfuse prn with HD - Plan to do labs on Tuesday Q7D Severe Thrombocytopenia - likely 2/2 atypical HUS - has not been compliant with eculizumab for last 4 months - Plts 6 on admission - DDAVP 20mcg and Solumedrol 125mg given prior to 2u platelet transfusion 09/11 - Plts 5 -> another 2u Plts transfused 09/12 -> Plts 11 - Heme consulted: Dr. Benites - help appreciated - 09/18/18: Given leukocytosis, case discussed with Dr. Benites who requested manual platelet count. Recommended 1 unit of platelet transfusion if manual platelet count is less than 20. -10/05: Platlet count of 11, discussed with Dr. Benites, who recommended to hold platlet transfusion - 10/06: Manual platlet count of 32, continue to monitor - Solumedrol 60mg IV q12, Solumedrol 60mg once 09/21/18, discontinued 09/22/18. Taper complete - continue to transfuse prn - monitor for bleeding, no signs of bleeding at this time ESRD on HD MWF - BUN/Cr: 72/10.7 on admission - elevated from previous admission of Cr of 7s - has not had dialysis in the last 4 months, still producing urine - Vasc Surgery consulted: Dr. Philomena goodson appreciated Existing R chest Permacath flushed and still functional Blood Cx if concerned for long indwelling infection No surgical intervention at this time as vascular access intact and new access involves high risk with low platelets Signed off 09/11 - Nephro consulted: Dr. Hamilton goodson appreciated Cont on MWF schedule EPO with HD - BUN/Cr is 47/8.9, dialysis (10/06/18) - 10/03: Dr. Langley and resident discussed with the pt at length his need for HD via [facility] # [id number]. "We instructed the pt that he needs HD, and that it is difficult to obtain HD on [facility]. We explained to him that until he ob tains outpatient HD he must stay in the hospital unless he wants to leave AMA. We talked with the pt the benefits and risks of HD, and pt understands, as well as the risks of leaving AMA. Pt shows understanding of his condition, and is willing to stay in the hospital at this time." Right inguinal hernia - Easily reducible - CT Pelvis (09/26): Moderate lower abdominal/pelvic free fluid. Fluid and fat containing right inguinal hernia. Small fat containing left inguinal hernia. Partially imaged moderate constipation. - Continue to monitor for strangulation -> will consider surgery then - abdomen remains nontender Hypertension - home Norvasc 10mg po daily - home Coreg 6.25mg po bid - home Clonidine 0.2mg po tid - continue Hydralazine 25mg BID - Continue to monitor vitals Headache s/p dialysis - Tylenol 650 mg PO Q6h - pt remains normotensive - continue to monitor Leukocytosis Resolved - WBC is currently 7.5, resolved as of 10/02 - Blood Cx from port (09/12): neg x5 days - blood Cx (09/18): neg x5 days - UA 3+ protein, 2+ glucose - urine cultures 09/18 negative - stool culture, and stool studies including O&P, C diff negative - 09/20/18: Case discussed with Dr. Benites who agreed with plan to taper off Solumedrol since it might be causing leukocytosis. Recommended Solumedrol 60mg once tomorrow and then discontinuing on 09/22/18. Patient was treated with Solumedrol 60mg Q12 from 09/16/18 - 09/20/18 - repeat procalcitonin (09/26) 0.60 Diarrhea Resolved - White count 7.5 today - stool culture negative, - Stool ova and parasite negative - CD negative - Continue to monitor, less likely infectious etiology Possible GI bleed Resolved - Hgb 8.2 on admission. Stool occult blood positive in ED - s/p transfusion 2u PRBC (09/11) - to receive another 2u PRBC in dialysis (09/13) - GI consulted: Dr. Elliott - recs appreciated unlikely upper GI bleed no GI intervention, including endoscopy, indicated at this time rec Pepcid over Protonix if GI ppx indicated signed off 09/11 Code Sepsis Resolved - currently, pt is afebrile, not tachycardic and without leukocytosis - called for elevated WBC and tachycardia, suspected long time indwelling cath infection - CXR (09/11): mild pulmonary venous congestion - repeat CXR (09/12): pulmonary vascular congestion. No focal consolidation or pleural effusion. - no rashes, skin changes, sensitivities noticed on skin, including area surrounding catheter - UA (09/11): 3+ protein - VBG (09/11): pH 7.48, lactate 1.6 - procalcitonin (09/11): 0.85 - Given Zosyn 2.25gm and Vancomycin 1gm IV, Gentamicin 270mg once in ED - blood Cx (09/11): Cornebacterium speices, no guidelines on sensitivities - blood Cx drawn from [facility] (09/12): no growth @ 48hrs - Vancomycin 1gm IVPB daily (started 09/11) --> discontinued - random Vanc (09/12): 24.7 - Vanc trough @ 0030am Jessica 09/14: 18.9 -> hold for one day - Vanc trough @ 0030am on 09/19 before 8th dose - Zosyn 2.25gm IVPB q8 (started 09/12) -> discontinued PPx - DVT: Chemical AC CI d/t severe thrombocytopenia, SCDs - GI: CI d/t severe thrombocytopenia - Diet: Diabetic Soft diet - Labs with MWF dialysis - Palliative Care consulted: Continues to be Full Code without Advanced Directive. Encouraged to attend HD as outpatient although patient is still resistant. - Dispo: Patient has lost previous HD chair. has begun looking for an outpatient HD center who will accept him with [facility]. Labs Q7D on Wednesdays. D/w Dr. Lillian Cronin, PGY-1 <Romeo Snyder H - Last Filed: 10/10/18 14:10> Objective - Vital Signs/Intake and Output Vital Signs (last 24 hours): Temp Pulse Resp BP Pulse Ox 98.2 F 72 20 136/87 97 10/10/18 07:00 10/10/18 07:00 10/10/18 07:00 10/10/18 07:00 10/10/18 07:00 Intake and Output: 10/10/18 10/10/18 06:59 18:59 Intake Total 500 250 Balance 500 250 - Medications Medications: Current Medications Acetaminophen (Tylenol 325mg Tab) 650 mg PO Q6 PRN PRN Reason: Pain, Mild (1-3) Last Admin: 10/10/18 09:25 Dose: 650 mg Amlodipine Besylate (Norvasc) 10 mg PO DAILY [facility] Last Admin: 10/10/18 09:25 Dose: 10 mg Calcium Acetate (Phoslo) 1,334 mg PO TIDCC [facility] Last Admin: 10/10/18 11:59 Dose: 1,334 mg Carvedilol (Coreg) 6.25 mg PO BID [facility] Last Admin: 10/10/18 09:25 Dose: 6.25 mg Clonidine HCl (Catapres) 0.2 mg PO TID [facility] Last Admin: 10/10/18 13:00 Dose: 0.2 mg Epoetin Rod (Procrit) 10,000 unit IV MWF [facility] Last Admin: 10/09/18 17:29 Dose: 10,000 unit Hydralazine HCl (Apresoline) 25 mg PO BID [facility] Last Admin: 10/10/18 09:25 Dose: 25 mg Lactic Acid (Lac-Hydrin 12% Lotion (225 G)) 0 gm EXT Q6 [facility] Last Admin: 10/10/18 12:00 Dose: 1 applic Vitamin A (Vitamin A & D Oint Ud Foilpak) 1 ea TOP BID [facility] Last Admin: 10/10/18 09:25 Dose: 1 ea - Labs Labs: 10/06/18 08:17 10/06/18 08:17 PT 14.6 SECONDS (9.7-12.2) H 09/11/18 00:36 INR 1.3 09/11/18 00:36 APTT 35 SECONDS (21-34) H 09/11/18 00:36 Attending/Attestation - Attestation I have personally seen and examined this patient.: Yes I have fully participated in the care of the patient.: Yes I have reviewed all pertinent clinical information, including history, physical exam and plan: Yes Notes (Text): Medical attending: Patient was seen and examined by me. Reviewed the above note by the resident and agree with the above. The patient is pending outpatient HD placement at this time. We continue to monitor for bleeding given the ongoing thrombocytopenia and at this moment remains stable Romeo Snyder
[2018-10-10] MEDS: Vitamins A & D Oint UD Foilpak TOP SCH ×2 (09:25→17:30)
--- NOTE | 2018-10-10 09:48 | CP.PCM.PN ---
Subjective - Date & Time of Evaluation Date of Evaluation: 10/10/18 Time of Evaluation: 09:47 - Subjective Subjective: seen and examined no complaints. 10 point ros neg s/p hd yesterday bp controlled no recent labs Objective - Vital Signs/Intake and Output Vital Signs (last 24 hours): Temp Pulse Resp BP Pulse Ox 98.8 F 85 20 133/90 96 10/10/18 00:00 10/10/18 00:00 10/10/18 00:00 10/10/18 00:00 10/10/18 00:00 Intake and Output: 10/10/18 10/10/18 06:59 18:59 Intake Total 500 Balance 500 - Medications Medications: Current Medications Acetaminophen (Tylenol 325mg Tab) 650 mg PO Q6 PRN PRN Reason: Pain, Mild (1-3) Last Admin: 10/10/18 09:25 Dose: 650 mg Amlodipine Besylate (Norvasc) 10 mg PO DAILY [facility] Last Admin: 10/10/18 09:25 Dose: 10 mg Calcium Acetate (Phoslo) 1,334 mg PO TIDCC [facility] Last Admin: 10/10/18 07:46 Dose: 1,334 mg Carvedilol (Coreg) 6.25 mg PO BID [facility] Last Admin: 10/10/18 09:25 Dose: 6.25 mg Clonidine HCl (Catapres) 0.2 mg PO TID [facility] Last Admin: 10/10/18 09:25 Dose: 0.2 mg Epoetin Rod (Procrit) 10,000 unit IV MWF [facility] Last Admin: 10/09/18 17:29 Dose: 10,000 unit Hydralazine HCl (Apresoline) 25 mg PO BID [facility] Last Admin: 10/10/18 09:25 Dose: 25 mg Lactic Acid (Lac-Hydrin 12% Lotion (225 G)) 0 gm EXT Q6 [facility] Last Admin: 10/10/18 00:26 Dose: 1 applic Vitamin A (Vitamin A & D Oint Ud Foilpak) 1 ea TOP BID [facility] Last Admin: 10/10/18 09:25 Dose: 1 ea - Labs Labs: 10/06/18 08:17 10/06/18 08:17 PT 14.6 SECONDS (9.7-12.2) H 09/11/18 00:36 INR 1.3 09/11/18 00:36 APTT 35 SECONDS (21-34) H 09/11/18 00:36 - Constitutional Appears: No Acute Distress, Chronically Ill - Head Exam Head Exam: NORMAL INSPECTION, NORMOCEPHALIC - Eye Exam Eye Exam: Normal appearance, PERRL - ENT Exam ENT Exam: Mucous Membranes Moist, Normal Exam - Neck Exam Neck Exam: Full ROM, Normal Inspection - Respiratory Exam Respiratory Exam: Clear to Ausculation Bilateral, NORMAL BREATHING PATTERN - Cardiovascular Exam Cardiovascular Exam: REGULAR RHYTHM, RRR - GI/Abdominal Exam GI & Abdominal Exam: Distended, Soft - Extremities Exam Extremities Exam: Full ROM, Normal Inspection - Neurological Exam Neurological Exam: Alert, Awake, Oriented x3 - Psychiatric Exam Psychiatric exam: Normal Affect, Normal Mood - Skin Skin Exam: Dry, Intact Assessment and Plan (1) Anemia Status: Acute (2) Atypical hemolytic uremic syndrome Status: Acute (3) ESRD (end stage renal disease) Status: Acute (4) Thrombocytopenia Status: Chronic - Assessment and Plan (Free Text) Assessment: hd [facility] outpt placement
[2018-10-11] MEDS: Ammonium Lactate 12% Lotion (225 g) EXT SCH ×4 (07:00→17:59)
--- NOTE | 2018-10-11 07:05 | CP.PCM.PN ---
Objective - Vital Signs/Intake and Output Vital Signs (last 24 hours): Temp Pulse Resp BP Pulse Ox 98.6 F 65 20 104/68 96 10/11/18 00:00 10/11/18 00:00 10/11/18 00:00 10/11/18 00:00 10/11/18 00:00 Intake and Output: 10/11/18 10/11/18 06:59 18:59 Intake Total 240 Balance 240 - Medications Medications: Current Medications Acetaminophen (Tylenol 325mg Tab) 650 mg PO Q6 PRN PRN Reason: Pain, Mild (1-3) Last Admin: 10/10/18 09:25 Dose: 650 mg Amlodipine Besylate (Norvasc) 10 mg PO DAILY [facility] Last Admin: 10/10/18 09:25 Dose: 10 mg Calcium Acetate (Phoslo) 1,334 mg PO TIDCC [facility] Last Admin: 10/10/18 17:30 Dose: 1,334 mg Carvedilol (Coreg) 6.25 mg PO BID [facility] Last Admin: 10/10/18 17:30 Dose: 6.25 mg Clonidine HCl (Catapres) 0.2 mg PO TID [facility] Last Admin: 10/10/18 17:30 Dose: 0.2 mg Epoetin Rod (Procrit) 10,000 unit IV MWF [facility] Last Admin: 10/09/18 17:29 Dose: 10,000 unit Hydralazine HCl (Apresoline) 25 mg PO BID [facility] Last Admin: 10/10/18 17:30 Dose: 25 mg Lactic Acid (Lac-Hydrin 12% Lotion (225 G)) 0 gm EXT Q6 [facility] Last Admin: 10/10/18 17:30 Dose: 1 applic Vitamin A (Vitamin A & D Oint Ud Foilpak) 1 ea TOP BID [facility] Last Admin: 10/10/18 17:30 Dose: 1 ea - Labs Labs: 10/06/18 08:17 10/06/18 08:17 PT 14.6 SECONDS (9.7-12.2) H 09/11/18 00:36 INR 1.3 09/11/18 00:36 APTT 35 SECONDS (21-34) H 09/11/18 00:36
--- NOTE | 2018-10-11 07:06 | CP.PCM.PN ---
Subjective - Date & Time of Evaluation Date of Evaluation: 10/11/18 Time of Evaluation: 07:20 - Subjective Subjective: PGY1 Medicine Progress Note for Dr. Snyder Patient seen and examined at bedside. No overnight events reported. Pt lying in bed, comfortably. Patient states he is feeling much better today. Patient reports his generalized body aches are gone. Patient denies chest pain, SOB, abdominal pain, nausea, vomiting, diarrhea, constipation, fevers, chills, vision changes, hearing changes. Patient states he is producing urine normally. Objective - Vital Signs/Intake and Output Vital Signs (last 24 hours): Temp Pulse Resp BP Pulse Ox 98.6 F 65 20 104/68 96 10/11/18 00:00 10/11/18 00:00 10/11/18 00:00 10/11/18 00:00 10/11/18 00:00 Intake and Output: 10/11/18 10/11/18 06:59 18:59 Intake Total 240 Balance 240 - Medications Medications: Current Medications Acetaminophen (Tylenol 325mg Tab) 650 mg PO Q6 PRN PRN Reason: Pain, Mild (1-3) Last Admin: 10/10/18 09:25 Dose: 650 mg Amlodipine Besylate (Norvasc) 10 mg PO DAILY [facility] Last Admin: 10/10/18 09:25 Dose: 10 mg Calcium Acetate (Phoslo) 1,334 mg PO TIDCC [facility] Last Admin: 10/10/18 17:30 Dose: 1,334 mg Carvedilol (Coreg) 6.25 mg PO BID [facility] Last Admin: 10/10/18 17:30 Dose: 6.25 mg Clonidine HCl (Catapres) 0.2 mg PO TID [facility] Last Admin: 10/10/18 17:30 Dose: 0.2 mg Epoetin Rod (Procrit) 10,000 unit IV MWF [facility] Last Admin: 10/09/18 17:29 Dose: 10,000 unit Hydralazine HCl (Apresoline) 25 mg PO BID [facility] Last Admin: 10/10/18 17:30 Dose: 25 mg Lactic Acid (Lac-Hydrin 12% Lotion (225 G)) 0 gm EXT Q6 [facility] Last Admin: 10/10/18 17:30 Dose: 1 applic Vitamin A (Vitamin A & D Oint Ud Foilpak) 1 ea TOP BID [facility] Last Admin: 10/10/18 17:30 Dose: 1 ea - Labs Labs: 10/06/18 08:17 10/06/18 08:17 PT 14.6 SECONDS (9.7-12.2) H 09/11/18 00:36 INR 1.3 09/11/18 00:36 APTT 35 SECONDS (21-34) H 09/11/18 00:36 - Constitutional Appears: Non-toxic, No Acute Distress - Head Exam Head Exam: ATRAUMATIC, NORMAL INSPECTION, NORMOCEPHALIC - Eye Exam Eye Exam: EOMI, Normal appearance - ENT Exam ENT Exam: Mucous Membranes Moist - Respiratory Exam Respiratory Exam: Clear to Ausculation Bilateral, NORMAL BREATHING PATTERN. absent: Rales, Rhonchi, Wheezes - Cardiovascular Exam Cardiovascular Exam: +S1, +S2 - GI/Abdominal Exam GI & Abdominal Exam: Soft, Normal Bowel Sounds. absent: Firm, Guarding, Rigid - Extremities Exam Extremities Exam: Full ROM, Normal Inspection. 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 His symptoms have resolved. 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 However, cannot r/o Alport's syndrome - has not been compliant with eculizumab for last 4 months - Hgb 8.2 on admission - Type and cross -> transfused 2u PRBC 09/11 -> Hgb 6.5 - Hgb 5.7 on 09/13 -> transfused 2u PRBC with HD -> Hgb 8.0 - Heme consulted: Dr. Benites - help appreciated - Trend with AM labs, most recent H/H .1 - continue to transfuse prn with HD - Plan to do labs on Tuesday Q7D Severe Thrombocytopenia - likely 2/2 atypical HUS - has not been compliant with eculizumab for last 4 months - Plts 6 on admission - DDAVP 20mcg and Solumedrol 125mg given prior to 2u platelet transfusion 09/11 - Plts 5 -> another 2u Plts transfused 09/12 -> Plts 11 - Heme consulted: Dr. Benites - help appreciated - 09/18/18: Given leukocytosis, case discussed with Dr. Benites who requested manual platelet count. Recommended 1 unit of platelet transfusion if manual platelet count is less than 20. - Solumedrol 60mg IV q12, Solumedrol 60mg once 09/21/18, discontinued 09/22/18. Taper complete - 10/05: Platlet count of 11, discussed with Dr. Benites, who recommended to hold platlet transfusion - 10/11: Manual platelet count of 43, continue to monitor - continue to transfuse prn - monitor for bleeding, no signs of bleeding at this time ESRD on HD MWF - BUN/Cr: 72/10.7 on admission - elevated from previous admission of Cr of 7s - has not had dialysis in the last 4 months, still producing urine - Vasc Surgery consulted: Dr. Philomena goodson appreciated Existing R chest Permacath flushed and still functional Blood Cx if concerned for long indwelling infection No surgical intervention at this time as vascular access intact and new access involves high risk with low platelets Signed off 09/11 - Nephro consulted: Dr. Hamilton goodson appreciated Cont on MWF schedule EPO with HD - BUN/Cr is 48/10.1, dialysis (10/11/18) - 10/03: Dr. Langley and resident discussed with the pt at length his need for HD via [facility] # [id number]. "We instructed the pt that he needs HD, and that it is difficult to obtain HD on [facility]. We explained to him that until he obtains outpatient HD he must stay in the hospital unless he wants to leave AMA. We talked with the pt the benefits and risks of HD, and pt understands, as well as the risks of leaving AMA. Pt shows understanding of his condition, and is willing to stay in the hospital at this time." Right inguinal hernia - Easily reducible - CT Pelvis (09/26): Moderate lower abdominal/pelvic free fluid. Fluid and fat containing right inguinal hernia. Small fat containing left inguinal hernia. Partially imaged moderate constipation. - Continue to monitor for strangulation -> will consider surgery then - abdomen remains nontender Hypertension - home Norvasc 10mg po daily - home Coreg 6.25mg po bid - home Clonidine 0.2mg po tid - continue Hydralazine 25mg BID - Continue to monitor vitals Headache s/p dialysis - Tylenol 650 mg PO Q6h - pt remains normotensive - continue to monitor Body Aches Resolved - pt remains afebrile - pt seen sleeping well in bed, as well walking without issues - will continue to monitor Leukocytosis Resolved - WBC is currently 7.5, resolved as of 10/02 - Blood Cx from port (09/12): neg x5 days - blood Cx (09/18): neg x5 days - UA 3+ protein, 2+ glucose - urine cultures 09/18 negative - stool culture, and stool studies including O&P, C diff negative - 09/20/18: Case discussed with Dr. Benites who agreed with plan to taper off Solumedrol since it might be causing leukocytosis. Recommended Solumedrol 60mg once tomorrow and then discontinuing on 09/22/18. Patient was treated with Solumedrol 60mg Q12 from 09/16/18 - 09/20/18 - repeat procalcitonin (09/26) 0.60 Diarrhea Resolved - White count 7.5 today - stool culture negative, - Stool ova and parasite negative - CD negative - Continue to monitor, less likely infectious etiology Possible GI bleed Resolved - Hgb 8.2 on admission. Stool occult blood positive in ED - s/p transfusion 2u PRBC (09/11) - to receive another 2u PRBC in dialysis (09/13) - GI consulted: Dr. Elliott - recs appreciated unlikely upper GI bleed no GI intervention, including endoscopy, indicated at this time rec Pepcid over Protonix if GI ppx indicated signed off 09/11 Code Sepsis Resolved - currently, pt is afebrile, not tachycardic and without leukocytosis - called for elevated WBC and tachycardia, suspected long time indwelling cath infection - CXR (09/11): mild pulmonary venous congestion - repeat CXR (09/12): pulmonary vascular congestion. No focal consolidation or pleural effusion. - no rashes, skin changes, sensitivities noticed on skin, including area surrounding catheter - UA (09/11): 3+ protein - VBG (09/11): pH 7.48, lactate 1.6 - procalcitonin (09/11): 0.85 - Given Zosyn 2.25gm and Vancomycin 1gm IV, Gentamicin 270mg once in ED - blood Cx (09/11): Cornebacterium speices, no guidelines on sensitivities - [facility] no growth @ 48hrs - Vancomycin 1gm IVPB daily (started 09/11) --> discontinued - random Vanc (09/12): 24.7 - Vanc trough @ 0030am Jessica 09/14: 18.9 -> hold for one day - Vanc trough @ 0030am on Tue 09/19 before 8th dose - Zosyn 2.25gm IVPB q8 (started 09/12) -> discontinued PPx - DVT: Chemical AC CI d/t severe thrombocytopenia, SCDs - GI: CI d/t severe thrombocytopenia - Diet: Diabetic Soft diet - Labs with MWF dialysis - Palliative Care consulted: Continues to be Full Code without Advanced Directive. Encouraged to attend HD as outpatient although patient is still resistant. - Dispo: Patient has lost previous HD chair. CM has begun looking for an outpatient HD center who will accept him with [facility]. Labs Q7D on Wednesdays. D/w Dr. Lillian Cronin, PGY-1
[2018-10-11 07:16] LABS: BASO # 0.1 K/uL (0.0-0.2); BASO % 0.8 % (0.0-2.0); EOS # 0.4 K/uL (0.0-0.7); EOS % 4.5 % (0.0-4.0); LYMPH # 4.5 K/uL (1.0-4.3); LYMPH % 46.8 % (20.0-40.0); MEAN CELL VOLUME 93.4 fL (80.0-94.0); MEAN CORPUSCULAR HGB CONC 33.2 g/dL (33.0-37.0); MEAN PLATELET VOLUME 12.6 fL (7.2-11.7); MONO # 1.6 K/uL (0.0-0.8); MONO % 17.1 % (0.0-10.0); NEUT # 2.9 K/uL (1.8-7.0); NEUT % 30.8 % (50.0-75.0); NRBC % 0.1 % (0.0-2.0); RBC 3.54 Mil/uL (4.40-5.90); WHITE BLOOD COUNT 9.6 K/uL (4.8-10.8)
[2018-10-11 08:14] LABS: ALB/GLOB RATIO 1.5 (1.0-2.1); ALBUMIN 3.7 g/dL (3.5-5.0); CALCIUM 9.4 mg/dl (8.6-10.4)
[2018-10-11] MEDS: Vitamins A & D Oint UD Foilpak TOP SCH ×2 (09:38→18:01)
--- NOTE | 2018-10-11 14:24 | CP.PCM.PN ---
Subjective - Date & Time of Evaluation Date of Evaluation: 10/11/18 Time of Evaluation: 14:22 - Subjective Subjective: Appears same For dialysis - rescheduled for AM due to dialysis schedule change Objective - Vital Signs/Intake and Output Vital Signs (last 24 hours): Temp Pulse Resp BP Pulse Ox 98.5 F 73 20 138/93 H 97 10/11/18 14:01 10/11/18 14:01 10/11/18 14:01 10/11/18 14:01 10/11/18 14:01 Intake and Output: 10/11/18 10/11/18 06:59 18:59 Intake Total 240 Balance 240 - Medications Medications: Current Medications Acetaminophen (Tylenol 325mg Tab) 650 mg PO Q6 PRN PRN Reason: Pain, Mild (1-3) Last Admin: 10/10/18 09:25 Dose: 650 mg Amlodipine Besylate (Norvasc) 10 mg PO DAILY [facility] Last Admin: 10/11/18 09:39 Dose: Not Given Calcium Acetate (Phoslo) 1,334 mg PO TIDCC [facility] Last Admin: 10/11/18 11:33 Dose: 1,334 mg Carvedilol (Coreg) 6.25 mg PO BID [facility] Last Admin: 10/11/18 09:39 Dose: Not Given Clonidine HCl (Catapres) 0.2 mg PO TID [facility] Last Admin: 10/11/18 13:40 Dose: Not Given Epoetin Rod (Procrit) 10,000 unit IV MWF [facility] Last Admin: 10/09/18 17:29 Dose: 10,000 unit Hydralazine HCl (Apresoline) 25 mg PO BID [facility] Last Admin: 10/11/18 09:38 Dose: Not Given Lactic Acid (Lac-Hydrin 12% Lotion (225 G)) 0 gm EXT Q6 [facility] Last Admin: 10/11/18 11:33 Dose: 1 applic Vitamin A (Vitamin A & D Oint Ud Foilpak) 1 ea TOP BID [facility] Last Admin: 10/11/18 09:38 Dose: 1 ea - Labs Labs: 10/11/18 07:02 10/11/18 07:02 PT 14.6 SECONDS (9.7-12.2) H 09/11/18 00:36 INR 1.3 09/11/18 00:36 APTT 35 SECONDS (21-34) H 09/11/18 00:36 - Constitutional Appears: No Acute Distress, Chronically Ill - Head Exam Head Exam: ATRAUMATIC, NORMAL INSPECTION - Eye Exam Eye Exam: EOMI, Normal appearance - Neck Exam Neck Exam: Normal Inspection. absent: Tenderness - Respiratory Exam Respiratory Exam: Clear to Ausculation Bilateral, NORMAL BREATHING PATTERN - Cardiovascular Exam Cardiovascular Exam: REGULAR RHYTHM, +S1 - GI/Abdominal Exam GI & Abdominal Exam: Soft. absent: Tenderness - Extremities Exam Extremities Exam: Normal Inspection. absent: Tenderness - Neurological Exam Neurological Exam: Awake, CN II-XII Intact - Skin Skin Exam: Dry, Warm Assessment and Plan (1) Gastrointestinal hemorrhage Status: Acute (2) Thrombocytopenia Status: Acute (3) Dialysis catheter clot or failure Status: Acute (4) ESRD (end stage renal disease) Status: Acute (5) Hemolytic uremic syndrome Status: Acute (6) Hypertensive chronic kidney disease with stage 5 chronic kidney disease or end stage renal disease Status: Acute (7) Thrombocytopenia Status: Acute - Assessment and Plan (Free Text) Plan: Dialysis in AM Same plans
[2018-10-12] MEDS: Ammonium Lactate 12% Lotion (225 g) EXT SCH ×3 (00:04→11:28)
[2018-10-12 01:53] VITALS: O2SAT 97
[2018-10-12 08:34] VITALS: BP 107/73; PULSE 63; TEMP 98.8
[2018-10-12] MEDS: Vitamins A & D Oint UD Foilpak TOP SCH (09:19)
--- NOTE | 2018-10-12 09:49 | CP.PCM.PN ---
Subjective - Date & Time of Evaluation Date of Evaluation: 10/12/18 Time of Evaluation: 09:48 - Subjective Subjective: Feels same For HD today No new changes Objective - Vital Signs/Intake and Output Vital Signs (last 24 hours): Temp Pulse Resp BP Pulse Ox 98.8 F 63 20 107/73 97 10/12/18 08:31 10/12/18 08:31 10/12/18 08:31 10/12/18 08:31 10/12/18 08:31 Intake and Output: 10/12/18 10/12/18 06:59 18:59 Intake Total 540 Balance 540 - Medications Medications: Current Medications Acetaminophen (Tylenol 325mg Tab) 650 mg PO Q6 PRN PRN Reason: Pain, Mild (1-3) Last Admin: 10/10/18 09:25 Dose: 650 mg Amlodipine Besylate (Norvasc) 10 mg PO DAILY [facility] Last Admin: 10/12/18 09:20 Dose: Not Given Calcium Acetate (Phoslo) 1,334 mg PO TIDCC [facility] Last Admin: 10/12/18 09:00 Dose: 1,334 mg Carvedilol (Coreg) 6.25 mg PO BID [facility] Last Admin: 10/12/18 09:20 Dose: Not Given Clonidine HCl (Catapres) 0.2 mg PO TID [facility] Last Admin: 10/12/18 09:20 Dose: Not Given Epoetin Rod (Procrit) 10,000 unit IV MWF [facility] Last Admin: 10/09/18 17:29 Dose: 10,000 unit Hydralazine HCl (Apresoline) 25 mg PO BID [facility] Last Admin: 10/12/18 09:20 Dose: Not Given Lactic Acid (Lac-Hydrin 12% Lotion (225 G)) 0 gm EXT Q6 [facility] Last Admin: 10/12/18 05:58 Dose: 1 applic Vitamin A (Vitamin A & D Oint Ud Foilpak) 1 ea TOP BID [facility] Last Admin: 10/12/18 09:19 Dose: 1 ea - Labs Labs: 10/11/18 07:02 10/11/18 07:02 PT 14.6 SECONDS (9.7-12.2) H 09/11/18 00:36 INR 1.3 09/11/18 00:36 APTT 35 SECONDS (21-34) H 09/11/18 00:36 - Constitutional Appears: No Acute Distress, Chronically Ill - Head Exam Head Exam: ATRAUMATIC, NORMAL INSPECTION - Eye Exam Eye Exam: EOMI, Normal appearance - Neck Exam Neck Exam: Normal Inspection. absent: Tenderness - Respiratory Exam Respiratory Exam: Clear to Ausculation Bilateral, NORMAL BREATHING PATTERN - Cardiovascular Exam Cardiovascular Exam: REGULAR RHYTHM, +S1 - GI/Abdominal Exam GI & Abdominal Exam: Soft. absent: Tenderness - Extremities Exam Extremities Exam: Normal Inspection, Tenderness - Neurological Exam Neurological Exam: Awake, CN II-XII Intact - Skin Skin Exam: Dry, Warm Assessment and Plan (1) Gastrointestinal hemorrhage Status: Acute (2) Thrombocytopenia Status: Acute (3) Dialysis catheter clot or failure Status: Acute (4) ESRD (end stage renal disease) Status: Acute (5) Hemolytic uremic syndrome Status: Acute (6) Hypertensive chronic kidney disease with stage 5 chronic kidney disease or end stage renal disease Status: Acute (7) Thrombocytopenia Status: Acute - Assessment and Plan (Free Text) Plan: dialysis today then MWF
--- NOTE | 2018-10-12 14:05 | CP.PCM.DIS ---
<Denisse Uriostegui - Last Filed: 10/12/18 14:02> Provider - Provider Date of Admission: 09/11/18 03:50 Attending physician: Romeo Snyder DO Consults: 09/11/18 04:08 Nephrology Consult Stat Comment: Consulting Provider: Gustavo Villasenor Consulting Physician: Gustavo Villasenor Reason for Consult: dialysis patient, worsening renal functional, Cr 10+ 09/11/18 06:30 Hematology Oncology Consult Routine Comment: Consulting Provider: Nas Benites Consulting Physician: Nas Benites Reason for Consult: thrombocytopenia 09/11/18 06:48 Vascular Surgery Routine Comment: Consulting Provider: Abdelrahman Quach Jr. Physician Instructions: Reason For Exam: permacath replacement 09/12/18 10:27 Palliative Care Consult Routine Comment: Consulting Provider: Ramona Hernandez Physician Instructions: Reason For Exam: HUS, ESRD Time Spent in preparation of Discharge (in minutes): 45 Hospital Course - Lab Results Lab Results: Micro Results 09/18/18 13:41 Blood Blood Culture - Final NO GROWTH AFTER 5 DAYS 09/18/18 13:41 Blood Gram Stain - Final TEST NOT PERFORMED 09/18/18 13:41 Blood Blood Culture - Final NO GROWTH AFTER 5 DAYS 09/18/18 13:41 Blood Gram Stain - Final TEST NOT PERFORMED 09/18/18 13:41 Stool Stool Culture - Final NO SALMONELLA, SHIGELLA OR CAMPYLOBACTER ISOLATED. 09/18/18 13:41 Urine,Clean Catch Urine Culture - Final No Growth (<1,000 CFU/ML) 09/19/18 08:52 Stool Ova and Parasite Concentrate Exam - Final 09/12/18 12:30 Blood-Venous Blood Culture - Final NO GROWTH AFTER 5 DAYS 09/12/18 12:30 Blood-Venous Gram Stain - Final TEST NOT PERFORMED 09/12/18 11:59 Blood-Venous Blood Culture - Final NO GROWTH AFTER 5 DAYS 09/12/18 11:59 Blood-Venous Gram Stain - Final TEST NOT PERFORMED 09/11/18 01:20 Blood Blood Culture - Final Corynebacterium Species 09/11/18 01:20 Blood Gram Stain - Final Most Recent Lab Values WBC 9.6 K/uL (4.8-10.8) 10/11/18 07:02 RBC 3.54 Mil/uL (4.40-5.90) L 10/11/18 07:02 Hgb 11.0 g/dL (12.0-18.0) L 10/11/18 07:02 Hct 33.1 % (35.0-51.0) L 10/11/18 07:02 MCV 93.4 fL (80.0-94.0) 10/11/18 07:02 MCH 31.0 pg (27.0-31.0) 10/11/18 07:02 MCHC 33.2 g/dL (33.0-37.0) 10/11/18 07:02 RDW 22.0 % (11.5-14.5) H 10/11/18 07:02 Plt Count 9 K/uL (130-400) L* 10/11/18 07:02 Manual Plt Count 43 K/uL (130-400) L 10/11/18 07:03 MPV 12.6 fL (7.2-11.7) H 10/11/18 07:02 Neut % (Auto) 30.8 % (50.0-75.0) L 10/11/18 07:02 Lymph % (Auto) 46.8 % (20.0-40.0) H 10/11/18 07:02 [place] % (Auto) 17.1 % (0.0-10.0) H 10/11/18 07:02 Eos % (Auto) 4.5 % (0.0-4.0) H 10/11/18 07:02 Baso % (Auto) 0.8 % (0.0-2.0) 10/11/18 07:02 Neut # (Auto) 2.9 K/uL (1.8-7.0) 10/11/18 07:02 Lymph # (Auto) 4.5 K/uL (1.0-4.3) H 10/11/18 07:02 [place] # (Auto) 1.6 K/uL (0.0-0.8) H 10/11/18 07:02 Eos # (Auto) 0.4 K/uL (0.0-0.7) 10/11/18 07:02 Baso # (Auto) 0.1 K/uL (0.0-0.2) 10/11/18 07:02 Neutrophils % (Manual) 84 % (50-75) H 09/22/18 14:22 Lymphocytes % (Manual) 5 % (20-40) L 09/22/18 14:22 Reactive Lymphs % 1 % (0-0) H 09/11/18 00:36 Monocytes % (Manual) 11 % (0-10) H 09/22/18 14:22 Differential Comment 10/11/18 07:02 Platelet Estimate Decreased (NORMAL) L 09/22/18 14:22 Large Platelets Present 09/22/18 14:22 Giant Platelets Present 09/22/18 14:22 Polychromasia Slight 09/22/18 14:22 Hypochromasia (manual) Slight 09/22/18 14:22 Poikilocytosis (manual Slight 09/22/18 14:22 Anisocytosis (manual) Slight 09/22/18 14:22 Microcytosis (manual) Slight 09/22/18 14:22 Macrocytosis (manual) Slight 09/22/18 14:22 Target Cells Slight 09/22/18 14:22 Tear Drop Cells Slight 09/20/18 06:28 Ovalocytes Slight 09/22/18 14:22 Helmet Cells Slight 09/22/18 14:22 [place] Cells Slight 09/22/18 14:22 Acanthocytes (Spur) Slight 09/20/18 06:28 PT 14.6 SECONDS (9.7-12.2) H 09/11/18 00:36 INR 1.3 09/11/18 00:36 APTT 35 SECONDS (21-34) H 09/11/18 00:36 pO2 81 mm/Hg (30-55) H 09/11/18 00:30 VBG pH 7.48 (7.32-7.43) H 09/11/18 00:30 VBG pCO2 22 mmHg (40-60) L 09/11/18 00:30 VBG HCO3 21.0 mmol/L 09/11/18 00:30 VBG Total CO2 17.1 mmol/L (22-28) L 09/11/18 00:30 VBG O2 Sat (Calc) 99.1 % (40-65) H 09/11/18 00:30 VBG Base Excess -5.0 mmol/L (0.0-2.0) L 09/11/18 00:30 VBG Potassium 4.1 mmol/L (3.6-5.2) 09/11/18 00:30 Sodium 141.0 mmol/l (132-148) 09/11/18 00:30 Chloride 114.0 mmol/L (98-107) H 09/11/18 00:30 Glucose 134 mg/dl (75-110) H 09/11/18 00:30 Lactate 1.6 mmol/L (0.7-2.1) 09/11/18 00:30 Sodium 135 mmol/L (132-148) 10/11/18 07:02 Potassium 5.0 mmol/L (3.6-5.2) 10/11/18 07:02 Chloride 102 mmol/L (98-107) 10/11/18 07:02 Carbon Dioxide 22 mmol/L (22-30) 10/11/18 07:02 Anion Gap 16 (10-20) 10/11/18 07:02 BUN 48 mg/dL (9-20) H 10/11/18 07:02 Creatinine 10.1 mg/dL (0.8-1.5) H* 10/11/18 07:02 Est GFR ( Amer) 7 10/11/18 07:02 Est GFR (Non-Af Amer) 6 10/11/18 07:02 Random Glucose 87 mg/dL (75-110) 10/11/18 07:02 Calcium 9.4 mg/dl (8.6-10.4) 10/11/18 07:02 Phosphorus 4.6 mg/dL (2.5-4.5) H 10/11/18 07:02 Magnesium 2.6 mg/dL (1.6-2.3) H 10/11/18 07:02 Iron 126 ug/dL (49-181) 09/13/18 19:39 TIBC 243 ug/dL (250-450) L 09/13/18 19:39 % Saturation 52 (20-55) 09/13/18 19:39 Ferritin 182.0 ng/mL 09/13/18 19:39 Total Bilirubin 0.3 mg/dL (0.2-1.3) 10/11/18 07:02 AST 17 U/L (17-59) D 10/11/18 07:02 ALT 38 U/L (21-72) 10/11/18 07:02 Alkaline Phosphatase 117 U/L (38-126) 10/11/18 07:02 NT-Pro-B Natriuret Pep 6900 pg/mL (0-450) H 09/11/18 03:14 Total Protein 6.1 g/dL (6.3-8.3) L 10/11/18 07:02 Albumin 3.7 g/dL (3.5-5.0) 10/11/18 07:02 Globulin 2.5 gm/dL (2.2-3.9) 10/11/18 07:02 Albumin/Globulin Ratio 1.5 (1.0-2.1) 10/11/18 07:02 Procalcitonin 0.60 NG/ML (0.19-0.49) H 09/26/18 06:53 Venous Blood Potassium 4.1 mmol/L (3.6-5.2) 09/11/18 00:30 Urine Color Yellow (YELLOW) 09/18/18 13:41 Urine Clarity Clear (Clear) 09/18/18 13:41 Urine pH 5.0 (5.0-8.0) 09/18/18 13:41 Ur Specific [place] 1.011 (1.003-1.030) 09/18/18 13:41 Urine Protein 3+ mg/dL (NEGATIVE) H 09/18/18 13:41 Urine Glucose (UA) 2+ mg/dL (Normal) H 09/18/18 13:41 Urine Ketones Negative mg/dL (NEGATIVE) 09/18/18 13:41 Urine Blood Negative (NEGATIVE) 09/18/18 13:41 Urine Nitrate Negative (NEGATIVE) 09/18/18 13:41 Urine Bilirubin Negative (NEGATIVE) 09/18/18 13:41 Urine Urobilinogen Normal mg/dL (0.2-1.0) 09/18/18 13:41 Ur Leukocyte Esterase Neg Amy/uL (Negative) 09/18/18 13:41 Urine WBC (Auto) 2 /hpf (0-5) 09/18/18 13:41 Urine RBC (Auto) < 1 /hpf (0-3) 09/18/18 13:41 Ur Squamous Epith Cells < 1 /hpf (0-5) 09/18/18 13:41 Urine Bacteria Rare (<OCC) 09/18/18 13:41 Stool Occult Blood Positive (NEGATIVE) H 09/11/18 00:43 Stl Lactoferrin (DIDI) <30.0 mcg/mL (<30.0) 09/18/18 13:41 Stl Cryptosporidium Ag Not detected (Not detected) 09/19/18 08:52 Vancomycin Trough 18.9 ug/mL (5.0-10.0) H 09/14/18 01:19 Random Vancomycin 24.7 ug/mL 09/12/18 11:59 Alcohol, Quantitative < 10 mg/dl (0-10) 09/11/18 00:36 C. difficile Ag & Toxin Negative (NEGATIVE) 09/18/18 13:41 Cryptosp/Giardia Source Stool 09/19/18 08:52 Hep Bs Antigen Negative (NEGATIVE) 10/09/18 16:31 Hep Bs Antibody Indeterminate (NEGATIVE) 09/11/18 20:59 Hep B Core IgM Ab Negative (NEGATIVE) 09/11/18 20:59 Hepatitis C Antibody Negative (NEGATIVE) 09/11/18 20:59 Influenza Typ A,B (EIA) Negative for flu a/b (NEGATIVE) 09/11/18 18:39 Blood Type O POSITIVE 09/11/18 00:36 Antibody Screen Negative 09/11/18 00:36 - Hospital Course Hospital Course: PMD: [facility] PMHx: PMHx: HTN, CKD, ESRD, known atypical HUS, thrombocytopenia Meds: Clonidine 0.2 po bid, norvasc 10mg po daily, coreg 6.25mg po bid, and hydralazine 25mg po q8 Allergies: Aspirin (PMD informed him not to take it due to platelets, not a true allergy) PSHx: PD cath placed 05/2017, renal biopsy 03/2017, right chest permacath placed 03/2017, splenectomy at 4 y/o Nephrology: Dr. Villasenor Vascular: Dr. Quach Heme-Onc: Dr. Benites Upon Admission 32 Y w/ PMHx: HTN, CKD, ESRD, known atypical HUS, thrombocytopenia presents to ED with vomiting. Patient states that since this morning he has had several episodes of non bloody, non bilious vomiting. He states he also has SOB with these vomiting episodes. Patient denies any sick contacts. recent travel, outside food he may have had that could have caused these symptoms. Patient additionally states he had epistaxis following the vomiting this AM, which has no resolved. Patient denies fevers, chills, chest pain, headaches, vision changes. In ED patient was found to be occult blood +, with a hemoglobin in the 8s. Patient states he stopped attending his dialysis for the last several months. Patient has followed up with Dr. Villasenor 2 months prior. Hospital Course Patient is a 32 yo male admitted from home with nausea and hematemesis X 3 days. Gi consult was called in ED and Doctor Pipo added H2 blockers and suggested ENT consult if bleeding persisted. Patient was also found to be with severe thrombocytopenia, Plt 5.1 and low Hb of 5.7. Patient received blood transfusion and FFP transfusion. During this hospital stay patient had received many blood transfusions. Patient diagnosed with an atypical presentation of HUS. Patient has been receiving transfusions due to kidney failure due to HUS. Dr. Villasenor, Nephrology, was consulted and Dr. Quach for catheter placement for dialysis. Patient has been pending placement for outpatient HD. Patient has had critical readings of low platelet values and Dr. Benites, heme/onc, was consulted for recommendations. Patient today asked to sign out AMA as he has other stuff to do. Patient stated he understood the multiple risks he would be taking sign out AMA but wanted to leave because he has other things piling up that he has to do. Patient was given scripts for his anti-HTN agents that he was taking in hospital. Discharge Plan Patient left AMA. Discharge Exam - Head Exam Head Exam: ATRAUMATIC, NORMAL INSPECTION - Eye Exam Eye Exam: EOMI, Normal appearance. absent: Nystagmus, Scleral icterus - Respiratory Exam Respiratory Exam: NORMAL BREATHING PATTERN. absent: Rales, Rhonchi, Wheezes - Cardiovascular Exam Cardiovascular Exam: REGULAR RHYTHM, +S1, +S2. absent: Tachycardia - GI/Abdominal Exam GI & Abdominal Exam: Normal Bowel Sounds, Soft. absent: Distended, Firm, Guarding, Tenderness - Extremities Exam Extremities exam: normal inspection - Neurological Exam Neurological exam: Oriented x3 - Psychiatric Exam Psychiatric exam: Normal Affect, Normal Mood - Skin Skin Exam: Intact, Normal Color Discharge Plan - Follow Up Plan Condition: CRITICAL Disposition: AGAINST MEDICAL ADVICE Patient education suggested?: Yes Instructions: Dialysis Diet , Kidney Failure (DC), Gastrointestinal Bleeding (DC), Bleeding Precautions, Myelodysplastic Syndromes (DC) Additional Instructions: Patient will go home with right chest permacath. If patient decide to continuously refuse dialysis have the access taken off at the medical clinic or at the ER. Patient left AMA. Nurse was present to witness patient being educated about risks and benefits of discharge from hospital. [employer] was presents who was a practicing nurse at [facility] to translate. Referrals: Nas Benites MD [Staff Provider] - Gustavo Villasenor MD [Staff Provider] - Romeo Snyder DO [Staff Provider] - <Romeo Snyder - Last Filed: 10/12/18 16:00> Provider - Provider Date of Admission: 09/11/18 03:50 Attending physician: Romeo Snyder DO Consults: 09/11/18 04:08 Nephrology Consult Stat Comment: Consulting Provider: Gustavo Villasenor Consulting Physician: Gustavo Villasenor Reason for Consult: dialysis patient, worsening renal functional, Cr 10+ 09/11/18 06:30 Hematology Oncology Consult Routine Comment: Consulting Provider: Nas Benites Consulting Physician: Nas Benites Reason for Consult: thrombocytopenia 09/11/18 06:48 Vascular Surgery Routine Comment: Consulting Provider: Abdelrahman Quach Jr. Physician Instructions: Reason For Exam: permacath replacement 09/12/18 10:27 Palliative Care Consult Routine Comment: Consulting Provider: Ramona Hernandez Physician Instructions: Reason For Exam: HUS, ESRD Hospital Course - Lab Results Lab Results: Micro Results 09/18/18 13:41 Blood Blood Culture - Final NO GROWTH AFTER 5 DAYS 09/18/18 13:41 Blood Gram Stain - Final TEST NOT PERFORMED 09/18/18 13:41 Blood Blood Culture - Final NO GROWTH AFTER 5 DAYS 09/18/18 13:41 Blood Gram Stain - Final TEST NOT PERFORMED 09/18/18 13:41 Stool Stool Culture - Final NO SALMONELLA, SHIGELLA OR CAMPYLOBACTER ISOLATED. 09/18/18 13:41 Urine,Clean Catch Urine Culture - Final No Growth (<1,000 CFU/ML) 09/19/18 08:52 Stool Ova and Parasite Concentrate Exam - Final 09/12/18 12:30 Blood-Venous Blood Culture - Final NO GROWTH AFTER 5 DAYS 09/12/18 12:30 Blood-Venous Gram Stain - Final TEST NOT PERFORMED 09/12/18 11:59 Blood-Venous Blood Culture - Final NO GROWTH AFTER 5 DAYS 09/12/18 11:59 Blood-Venous Gram Stain - Final TEST NOT PERFORMED 09/11/18 01:20 Blood Blood Culture - Final Corynebacterium Species 09/11/18 01:20 Blood Gram Stain - Final Most Recent Lab Values WBC 9.6 K/uL (4.8-10.8) 10/11/18 07:02 RBC 3.54 Mil/uL (4.40-5.90) L 10/11/18 07:02 Hgb 11.0 g/dL (12.0-18.0) L 10/11/18 07:02 Hct 33.1 % (35.0-51.0) L 10/11/18 07:02 MCV 93.4 fL (80.0-94.0) 10/11/18 07:02 MCH 31.0 pg (27.0-31.0) 10/11/18 07:02 MCHC 33.2 g/dL (33.0-37.0) 10/11/18 07:02 RDW 22.0 % (11.5-14.5) H 10/11/18 07:02 Plt Count 9 K/uL (130-400) L* 10/11/18 07:02 Manual Plt Count 43 K/uL (130-400) L 10/11/18 07:03 MPV 12.6 fL (7.2-11.7) H 10/11/18 07:02 Neut % (Auto) 30.8 % (50.0-75.0) L 10/11/18 07:02 Lymph % (Auto) 46.8 % (20.0-40.0) H 10/11/18 07:02 [place] % (Auto) 17.1 % (0.0-10.0) H 10/11/18 07:02 Eos % (Auto) 4.5 % (0.0-4.0) H 10/11/18 07:02 Baso % (Auto) 0.8 % (0.0-2.0) 10/11/18 07:02 Neut # (Auto) 2.9 K/uL (1.8-7.0) 10/11/18 07:02 Lymph # (Auto) 4.5 K/uL (1.0-4.3) H 10/11/18 07:02 [place] # (Auto) 1.6 K/uL (0.0-0.8) H 10/11/18 07:02 Eos # (Auto) 0.4 K/uL (0.0-0.7) 10/11/18 07:02 Baso # (Auto) 0.1 K/uL (0.0-0.2) 10/11/18 07:02 Neutrophils % (Manual) 84 % (50-75) H 09/22/18 14:22 Lymphocytes % (Manual) 5 % (20-40) L 09/22/18 14:22 Reactive Lymphs % 1 % (0-0) H 09/11/18 00:36 Monocytes % (Manual) 11 % (0-10) H 09/22/18 14:22 Differential Comment 10/11/18 07:02 Platelet Estimate Decreased (NORMAL) L 09/22/18 14:22 Large Platelets Present 09/22/18 14:22 Giant Platelets Present 09/22/18 14:22 Polychromasia Slight 09/22/18 14:22 Hypochromasia (manual) Slight 09/22/18 14:22 Poikilocytosis (manual Slight 09/22/18 14:22 Anisocytosis (manual) Slight 09/22/18 14:22 Microcytosis (manual) Slight 09/22/18 14:22 Macrocytosis (manual) Slight 09/22/18 14:22 Target Cells Slight 09/22/18 14:22 Tear Drop Cells Slight 09/20/18 06:28 Ovalocytes Slight 09/22/18 14:22 Helmet Cells Slight 09/22/18 14:22 [place]ia Cells Slight 09/22/18 14:22 Acanthocytes (Spur) Slight 09/20/18 06:28 PT 14.6 SECONDS (9.7-12.2) H 09/11/18 00:36 INR 1.3 09/11/18 00:36 APTT 35 SECONDS (21-34) H 09/11/18 00:36 pO2 81 mm/Hg (30-55) H 09/11/18 00:30 VBG pH 7.48 (7.32-7.43) H 09/11/18 00:30 VBG pCO2 22 mmHg (40-60) L 09/11/18 00:30 VBG HCO3 21.0 mmol/L 09/11/18 00:30 VBG Total CO2 17.1 mmol/L (22-28) L 09/11/18 00:30 VBG O2 Sat (Calc) 99.1 % (40-65) H 09/11/18 00:30 VBG Base Excess -5.0 mmol/L (0.0-2.0) L 09/11/18 00:30 VBG Potassium 4.1 mmol/L (3.6-5.2) 09/11/18 00:30 Sodium 141.0 mmol/l (132-148) 09/11/18 00:30 Chloride 114.0 mmol/L (98-107) H 09/11/18 00:30 Glucose 134 mg/dl (75-110) H 09/11/18 00:30 Lactate 1.6 mmol/L (0.7-2.1) 09/11/18 00:30 Sodium 135 mmol/L (132-148) 10/11/18 07:02 Potassium 5.0 mmol/L (3.6-5.2) 10/11/18 07:02 Chloride 102 mmol/L (98-107) 10/11/18 07:02 Carbon Dioxide 22 mmol/L (22-30) 10/11/18 07:02 Anion Gap 16 (10-20) 10/11/18 07:02 BUN 48 mg/dL (9-20) H 10/11/18 07:02 Creatinine 10.1 mg/dL (0.8-1.5) H* 10/11/18 07:02 Est GFR ( Amer) 7 10/11/18 07:02 Est GFR (Non-Af Amer) 6 10/11/18 07:02 Random Glucose 87 mg/dL (75-110) 10/11/18 07:02 Calcium 9.4 mg/dl (8.6-10.4) 10/11/18 07:02 Phosphorus 4.6 mg/dL (2.5-4.5) H 10/11/18 07:02 Magnesium 2.6 mg/dL (1.6-2.3) H 10/11/18 07:02 Iron 126 ug/dL (49-181) 09/13/18 19:39 TIBC 243 ug/dL (250-450) L 09/13/18 19:39 % Saturation 52 (20-55) 09/13/18 19:39 Ferritin 182.0 ng/mL 09/13/18 19:39 Total Bilirubin 0.3 mg/dL (0.2-1.3) 10/11/18 07:02 AST 17 U/L (17-59) D 10/11/18 07:02 ALT 38 U/L (21-72) 10/11/18 07:02 Alkaline Phosphatase 117 U/L (38-126) 10/11/18 07:02 NT-Pro-B Natriuret Pep 6900 pg/mL (0-450) H 09/11/18 03:14 Total Protein 6.1 g/dL (6.3-8.3) L 10/11/18 07:02 Albumin 3.7 g/dL (3.5-5.0) 10/11/18 07:02 Globulin 2.5 gm/dL (2.2-3.9) 10/11/18 07:02 Albumin/Globulin Ratio 1.5 (1.0-2.1) 10/11/18 07:02 Procalcitonin 0.60 NG/ML (0.19-0.49) H 09/26/18 06:53 Venous Blood Potassium 4.1 mmol/L (3.6-5.2) 09/11/18 00:30 Urine Color Yellow (YELLOW) 09/18/18 13:41 Urine Clarity Clear (Clear) 09/18/18 13:41 Urine pH 5.0 (5.0-8.0) 09/18/18 13:41 Ur Specific [place] 1.011 (1.003-1.030) 09/18/18 13:41 Urine Protein 3+ mg/dL (NEGATIVE) H 09/18/18 13:41 Urine Glucose (UA) 2+ mg/dL (Normal) H 09/18/18 13:41 Urine Ketones Negative mg/dL (NEGATIVE) 09/18/18 13:41 Urine Blood Negative (NEGATIVE) 09/18/18 13:41 Urine Nitrate Negative (NEGATIVE) 09/18/18 13:41 Urine Bilirubin Negative (NEGATIVE) 09/18/18 13:41 Urine Urobilinogen Normal mg/dL (0.2-1.0) 09/18/18 13:41 Ur Leukocyte Esterase Neg Amy/uL (Negative) 09/18/18 13:41 Urine WBC (Auto) 2 /hpf (0-5) 09/18/18 13:41 Urine RBC (Auto) < 1 /hpf (0-3) 09/18/18 13:41 Ur Squamous Epith Cells < 1 /hpf (0-5) 09/18/18 13:41 Urine Bacteria Rare (<OCC) 09/18/18 13:41 Stool Occult Blood Positive (NEGATIVE) H 09/11/18 00:43 Stl Lactoferrin (DIDI) <30.0 mcg/mL (<30.0) 09/18/18 13:41 Stl Cryptosporidium Ag Not detected (Not detected) 09/19/18 08:52 Vancomycin Trough 18.9 ug/mL (5.0-10.0) H 09/14/18 01:19 Random Vancomycin 24.7 ug/mL 09/12/18 11:59 Alcohol, Quantitative < 10 mg/dl (0-10) 09/11/18 00:36 C. difficile Ag & Toxin Negative (NEGATIVE) 09/18/18 13:41 Cryptosp/Giardia Source Stool 09/19/18 08:52 Hep Bs Antigen Negative (NEGATIVE) 10/09/18 16:31 Hep Bs Antibody Indeterminate (NEGATIVE) 09/11/18 20:59 Hep B Core IgM Ab Negative (NEGATIVE) 09/11/18 20:59 Hepatitis C Antibody Negative (NEGATIVE) 09/11/18 20:59 Influenza Typ A,B (EIA) Negative for flu a/b (NEGATIVE) 09/11/18 18:39 Blood Type O POSITIVE 09/11/18 00:36 Antibody Screen Negative 09/11/18 00:36 Attending/Attestation - Attestation I have personally seen and examined this patient.: Yes I have fully participated in the care of the patient.: Yes I have reviewed all pertinent clinical information, including history, physical exam and plan: Yes Notes (Text): 10/12/18 15:56 Medical attending: Patient was seen and examined by me. Agree with the above note by the resident The patient was not in any acute distress when we came and saw the patient this morning. However later in the day I was notifed by the medical residents that the patient no longer wanted to stay and that he wanted to leave AMA. The patient in the past we have had conversations about the risk of leaving and we've had this discussion more than a few time. I don't blame the patient from wanting to leave AMA since he's worried about loosing his apartment. We were keeping patient in the hospital for outpatient HD placement. It will probably only be two or three weeks before he becomes very ill from uremia due to the lack of HD and the history of Atypical HUS Romeo Snyder
== END 2018-10-12 14:35 | disposition left against medical advice (07) | DRG 469 ==
LOC: C.ER 23:51 → C.6T 09-11 03:50 → C.3T 09-29 22:48
PROVIDERS: ADMIT Hospitalist; ATTEND Hospitalist
PROC: 30233R1 Transfusion of Nonautologous Platelets into Peripheral Vein, Percutaneous Approach (ICD-10-PCS; principal; 2018-09-12)
PROC: 30233N1 Transfusion of Nonautologous Red Blood Cells into Peripheral Vein, Percutaneous Approach (ICD-10-PCS; 2018-09-12)
PROC: 5A1D70Z Performance of Urinary Filtration, Intermittent, Less than 6 Hours Per Day (ICD-10-PCS; 2018-09-13)
DX: D59.3 Hemolytic-uremic syndrome (principal); R65.20 Severe sepsis without septic shock; A41.9 Sepsis, unspecified organism; D61.818 Other pancytopenia; K92.0 Hematemesis; N18.6 End stage renal disease; I12.0 Hypertensive chronic kidney disease with stage 5 chronic kidney disease or end stage renal disease; T82.7XXA Infection and inflammatory reaction due to other cardiac and vascular devices, implants and grafts, initial encounter; D63.1 Anemia in chronic kidney disease; H91.92 Unspecified hearing loss, left ear; K29.70 Gastritis, unspecified, without bleeding; R04.0 Epistaxis; D62 Acute posthemorrhagic anemia; T38.0X5A Adverse effect of glucocorticoids and synthetic analogues, initial encounter; Z51.5 Encounter for palliative care; Y84.1 Kidney dialysis as the cause of abnormal reaction of the patient, or of later complication, without mention of misadventure at the time of the procedure; Z91.15 Patient's noncompliance with renal dialysis; Z90.81 Acquired absence of spleen; Z99.2 Dependence on renal dialysis